=== PATIENT | male | born 1955 ===

== ENCOUNTER 2019-09-24 15:09 | Outpatient (REF) | payer OTHER, SELFPAY ==
[2019-09-24 21:36] LABS: HCT 39.9 % (40.0-50.0); HGB 12.7 g/dL (13.5-17.5); Mean Corp. HGB Concentration 31.8 g/dL (32.0-36.0); Mean Corpuscular Hemoglobin 20.7 pg (27.0-33.0); Mean Platelet Volume 11.3 fL (8.0-11.0); Platelet Count 338 x1000/uL (130-400); RBC 6.14 m/cumm (4.50-6.00); White Blood Cell Count 11.43 k/cumm (4.4-10.8)
[2019-09-24 22:12] LABS: ALT 21 U/L (16-63); AST 22 U/L (15-37); Albumin 3.3 g/dL (3.4-5.0); Alkaline Phosphatase 92 U/L (46-116); Anion Gap 10.4 mmol/L (3-11); BUN 17 mg/dL (7-18); Bilirubin, Total 0.2 mg/dL (0.2-1.0); CO2 26.6 mmol/L (21.0-32.0); CREATININE 1.03 mg/dL (0.70-1.30); Calcium 8.9 mg/dL (8.5-10.1); Calculated LDL 88 mg/dL (<100); Chloride 101 mmol/L (98-107); Cholesterol 157 mg/dL (<200); Glucose 108 mg/dL (74-106); HDL Cholesterol 31 mg/dL (40-60); Potassium 4.2 mmol/L (3.5-5.1); Sodium 138 mmol/L (136-145); TSH 1.09 uIU/mL (0.36-3.74); Total Protein 7.4 g/dL (6.4-8.2); Triglyceride 191 mg/dL (<150)
[2019-09-24 22:35] LABS: ESR 19 mm/hr (1-20)
[2019-09-24 22:43] LABS: FREE T4 1.26 ng/dL (0.76-1.46)
[2019-09-26 10:45] LABS: PSA, Screening 1.6 ng/mL (0.0-4.5)
[2019-09-26 11:32] LABS: Hepatitis C Ab w Rflx HCV PCR Negative (Negative)
== END 2019-09-24 15:29 ==
LOC: NCHCN 15:09
PROVIDERS: PCP Physician Assistant; Visit Provider Physician Assistant
DX: M25.50 Pain in unspecified joint (principal); R53.83 Other fatigue; Z12.5 Encounter for screening for malignant neoplasm of prostate; Z11.59 Encounter for screening for other viral diseases; E78.89 Other lipoprotein metabolism disorders
CPT/HCPCS: 80053; 80061; 84153; 85027; 85652; 86803; 84439; 84443

== ENCOUNTER 2019-09-25 07:53 | Outpatient (CLI) | payer OTHER, SELFPAY ==
--- NOTE | 2019-09-25 | DI.RAD_ITS ---
EXAM: XR CHEST 2V PA LATERAL CLINICAL HISTORY: PLEURITIS, R09.1 TECHNIQUE: 2D digital imaging was performed. COMPARISON: No exams were available for comparison FINDINGS: The heart size is normal. The aorta is mildly tortuous. There is a rounded density directly adjacen t to the right heart border. The findings could represent a mass, pericardial cyst or hernia. There is blunting of both costophrenic angles. There are mild fibrotic changes at the lung bases. No foc al area of consolidation is seen. Degenerative changes are seen in the spine. IMPRESSION: Abnormal density adjacent to the right heart border. Due to lack of comparison exams, a CT is recom mended for further evaluation.. DATA REPOSITORY: RADIATION DOSE DELIVERED:
--- NOTE | 2019-09-25 10:33 | DI.CT_ITS ---
EXAM: CT CHEST W CLINICAL HISTORY: PLEURITIS, R09.1 TECHNIQUE: Imaging Protocol: Axial computed tomography images with coronal and sagittal reformatted images were created and reviewed CONTRAST MATERIAL: Intravenous: Omnipaque 350 Contrast volume:70 cc COMPARISON: CR XR CHEST 2V PA LATERAL from 09/25/2019 FINDINGS: Tracheobronchial tree: Patent where visualized. Mediastinum and Mercy: There is a mass adjacent to the right heart border measuring 7.1 by 8.5 by 8.4 cm. It is mildly lobulated and intermediate density. There is no fat or associated calcifications. There is no visible invasion into the pericardium. No pericardial effusion is present. Pulmonary parenchyma: There are multiple bilateral pulmonary nodules, suspicious of metastases. The largest is at the right lower lobe measuring 9mm. Pleura: Tiny bilateral pleural effusions.. Heart: The heart is not dilated. Mild coronary artery calcifications are seen. Aorta: Thoracic aorta non-dilated. Upper abdomen: Bilateral upper pole renal cysts. Lymph nodes: Mildly enlarged bilateral axillary lymph nodes.. No mediastinal or hilar adenopathy is seen. Bones: Lucency in the posterior left 4th rib. There are few nonspecific lucencies in the thoracic sp ine.. IMPRESSION: Large mass adjacent to the right heart border..Multiple bilateral pulmonary nodules, suspicious of me tastases. RADIATION DOSE DELIVERED: 476.76mGy.cm Total DLP DATA REPOSITORY: All CT scans at this facility are submitted to the National Radiology Data Registry (NRDR) Dose Index Registry (DIR) with the [employer] (ACR). RADIATION OPTIMIZATION: All CT scans at this facility use at least one of these dose optimization te chniques: automated exposure control; mA and/or kV adjustment per patient size (includes targeted exa ms where dose is matched to clinical indication); or iterative reconstruction.
[2019-09-25] MEDS: Omnipaque 350 MG/ML 100 ML BTL IJ (11:04)
== END 2019-09-25 08:13 ==
PROVIDERS: PCP Physician Assistant; Visit Provider Physician Assistant
DX: R09.1 Pleurisy (principal); J98.4 Other disorders of lung; J90 Pleural effusion, not elsewhere classified; R59.0 Localized enlarged lymph nodes; N28.1 Cyst of kidney, acquired; R91.8 Other nonspecific abnormal finding of lung field; R22.2 Localized swelling, mass and lump, trunk
CPT/HCPCS: 71046; 71260; J3490

== ENCOUNTER 2020-03-25 16:25 | Emergency (ER) | payer OTHER, SELFPAY ==
[2020-03-25] VITALS (7 sets, daily range): BP systolic 141–147; BP diastolic 87–91; PULSE 87–117; RESP 16–31; TEMP 36.9; O2SAT 97–98
--- NOTE | 2020-03-25 16:36 | W.ED.GENAD ---
Discharge Plan Disposition Patient Disposition: HOME Condition: Stable Discharge Details Clinical Impression: Surgical wound infection, History of thoracotomy, History of thymoma Primary Care Provider: Andrea Cantu ED Provider: Ruba Be Home Meds and New Rx's Prescriptions: New sulfamethoxazole-trimethoprim [Bactrim DS] 800-160 mg tablet 1 tab PO BID 10 Days Qty: 20 RF: 0 Discharge Instructions Instructions: Wound Infection (ED), Acute Wound Care (ED) Additional Instructions: Apply wet-to-dry dressings twice daily as you have been doing. Take the antibiotic as directed. You will receive a call from the thoracic surgery clinic tomorrow for follow-up in 1 week. Return immediately to the emergency department if you develop any worsening or new concerning symptoms. Discharge Data Discharge Physician: Ruba Be Medical Decision Making 1649 -- 64-year-old male with a history of benign thymoma resection in October 2019 complicated by 2 staph infections and wound VAC removed in December 2019 who presents for increased pain, swelling and drainage from right mid back wound site. Patient appears nontoxic. Vitals within normal limits. His right back wound is mildly tender to palpation with clear yellow discharge but there is no area of fluctuance or purulent drainage. Will obtain screening labs and CT chest to rule out deep space abscess or fluid collection. Will give a dose of Toradol and IV fluids and reassess. 193 --labs reviewed. White blood cell count 11.6. Lactate 1. Troponin negative. CT chest notes IMPRESSION: 1. At the site of the BB marker in the posterior right chest wall there is a cleft likely skin defect with mild stranding. There is no fluid collection or abscess. 2. Mild bilateral pleural effusions with compressive atelectasis . 3. Stable ground-glass nodules in the right lower lung lobe since previous CT chest exam dated 09/25/2019. As per Fleischner criteria, follow-up might be considered every 2 years until 5 years. 4. Mild chronic interstitial lung disease. Patient reassessed and he has no acute complaints and feels good at this time. Case discussed with [facility] thoracic surgery who reviewed images and agree with plan for discharge home. Recommend Bactrim twice daily for 10 days and will follow up with patient tomorrow. Recommend continued wet-to-dry dressings. A saline wet-to-dry dressing was replaced here. Patient given a Bactrim dose here and to go as well as prescription for home. Usual and customary return precautions given prior to discharge. Medical Records Medical records reviewed: Yes I reviewed the patient's medical records. Imaging Data Radiologic Study: Radiologist's impression: CT Chest With Contrast; Diagnostic Exam date and time: 03/25/2020 5:23 PM Age: 64 years old Clinical indication: Chest wall pain; Prior surgery; Surgery date: 1-6 months; Surgery type: Surgury for benign tumor removal in October 2019, staff infection debridments both nov and dec, ; patient HX: Wound marked with bb marker on mid right back. Fever, no cough, no respiratory issues. Patient noticed pain and swelling with discharge at area marked with bb starting yesterday. TECHNIQUE: Imaging protocol: Diagnostic computed tomography of the chest with intravenous contrast. Radiation optimization: All CT scans at this facility use at least one of these dose optimization techniques: automated exposure control; mA and/or kV adjustment per patient size (includes targeted exams where dose is matched to clinical indication); or iterative reconstruction. Contrast material: OMNIPAQUE 350; Contrast volume: 70 ml; Contrast route: INTRAVENOUS (IV); COMPARISON: CT CHEST W 09/25/2019 10:42 AM FINDINGS: Thyroid: Thyroid gland is grossly unremarkable. Lungs: There is a subpleural linear opacity noted in the posterior apical right upper lung lobe (image 13 series 2) and could be atelectasis. Additional scattered new regions of linear subsegmental atelectasis are noted in the right upper and lower lung lobes. There is a stable 9 mm ground-glass nodule in the right lower lung lobe which abuts the anterior major fissure (image 31 series 2). 3-4 mm ground-glass nodule in the right lateral lower lung lobe (image 31 series 2) is stable. This is superimposed with stable mild chronic interstitial lung disease with peripheral and basilar reticulation and traction bronchiectasis in the lower lungs bilaterally. Pleural space: There is mild bilateral pleural effusion with overlying atelectasis. Heart: Heart is borderline in size with trace pericardial effusion. Aorta: Unremarkable. No aortic aneurysm. Lymph nodes: There are shotty lymph nodes in the mediastinum, likely reactive. Kidneys and ureters: There is a 4.4 cm cyst noted in the region of the left upper abdomen could reflect renal cyst. Bones/joints: Visualized osseous structures demonstrate no acute abnormality. Soft tissues: At the site of the BB marker in the posterior chest wall, there is a focal cleft like skin defect noted. There is mild thickening of the skin and subcutaneous tissues. There is no abnormal fluid collection. IMPRESSION: 1. At the site of the BB marker in the posterior right chest wall there is a cleft likely skin defect with mild stranding. There is no fluid collection or abscess. 2. Mild bilateral pleural effusions with compressive atelectasis . 3. Stable ground-glass nodules in the right lower lung lobe since previous CT chest exam dated 09/25/2019. As per Fleischner criteria, follow-up might be considered every 2 years until 5 years. 4. Mild chronic interstitial lung disease. Lab Data Lab results reviewed: Yes I reviewed the patient's lab results. Labs: 03/25/20 17:55 Back - Right Upper Skin Culture - Pending 03/25/20 17:41 Blood Blood Culture - Pending 03/25/20 17:02 Blood Blood Culture - Pending Laboratory Tests Range/Units 03/25/20 03/25/20 03/25/20 17:02 17:02 17:02 WBC (4.4-10.8) 10^3/uL RBC (4.36-5.78) 10^6/uL Hgb (13.5-17.5) g/dL Hct (40.0-50.0) % MCV (80-95) fL MCH (27.0-33.0) pg MCHC (32.0-36.0) % RDW (11.8-14.1) % Plt Count (130-400) 10^3/uL MPV (8.0-11.0) fL Immature Gran % Neutrophils % Lymphocytes % Monocytes % Eosinophils % Basophils % Nucleated RBC % % Absolute Neutrophils (1.2-6.7) 10^3/uL Absolute Lymphocytes (1.2-3.4) 10^3/uL Absolute Monocytes (0.1-0.8) 10^3/uL Absolute Eosinophils (0.0-0.7) 10^3/uL Absolute Basophils (0.0-0.2) 10^3/uL RBC Morphology Hypochromasia Anisocytosis Microcytosis PT (9.3-11.0) sec 10.6 INR (0.9-1.1) 1.1 APTT (21.0-27.5) sec 35.5 H VBG Lactate (0.6-1.4) mmol/L 1.0 Sodium (136-145) mmol/L 136 Potassium (3.5-5.1) mmol/L 3.6 Chloride (98-107) mmol/L 101 Carbon Dioxide (21.0-32.0) mmol/L 27.1 Anion Gap (3-11) mmol/L 7.9 BUN (7-18) mg/dL 17 Creatinine (0.70-1.30) mg/dL 1.27 Estimated GFR/1.73 m2 (mL/min/1.73m2) 56.92 Glucose (74-106) mg/dL 106 Calcium (8.5-10.1) mg/dL 8.6 Magnesium (1.8-2.4) mg/dL 2.0 Total Bilirubin (0.2-1.0) mg/dL 0.3 AST (15-37) U/L 12 L ALT (16-63) U/L 13 L Alkaline Phosphatase (46-116) U/L 101 Troponin I (<0.06) ng/mL < 0.05 Total Protein (6.4-8.2) g/dL 8.0 Albumin (3.4-5.0) g/dL 3.2 L Range/Units 03/25/20 17:02 WBC (4.4-10.8) 10^3/uL 11.62 H RBC (4.36-5.78) 10^6/uL 6.37 H Hgb (13.5-17.5) g/dL 12.6 L Hct (40.0-50.0) % 41.7 MCV (80-95) fL 65.5 L MCH (27.0-33.0) pg 19.8 L MCHC (32.0-36.0) % 30.2 L RDW (11.8-14.1) % 17.2 H Plt Count (130-400) 10^3/uL 305 MPV (8.0-11.0) fL 9.6 Immature Gran % 1.0 Neutrophils % 75.3 Lymphocytes % 13.6 Monocytes % 8.8 Eosinophils % 0.9 Basophils % 0.4 Nucleated RBC % % 0 Absolute Neutrophils (1.2-6.7) 10^3/uL 8.75 H Absolute Lymphocytes (1.2-3.4) 10^3/uL 1.58 Absolute Monocytes (0.1-0.8) 10^3/uL 1.02 H Absolute Eosinophils (0.0-0.7) 10^3/uL 0.10 Absolute Basophils (0.0-0.2) 10^3/uL 0.05 RBC Morphology See below Hypochromasia 1+ Anisocytosis 2+ Microcytosis 3+ PT (9.3-11.0) sec INR (0.9-1.1) APTT (21.0-27.5) sec VBG Lactate (0.6-1.4) mmol/L Sodium (136-145) mmol/L Potassium (3.5-5.1) mmol/L Chloride (98-107) mmol/L Carbon Dioxide (21.0-32.0) mmol/L Anion Gap (3-11) mmol/L BUN (7-18) mg/dL Creatinine (0.70-1.30) mg/dL Estimated GFR/1.73 m2 (mL/min/1.73m2) Glucose (74-106) mg/dL Calcium (8.5-10.1) mg/dL Magnesium (1.8-2.4) mg/dL Total Bilirubin (0.2-1.0) mg/dL AST (15-37) U/L ALT (16-63) U/L Alkaline Phosphatase (46-116) U/L Troponin I (<0.06) ng/mL Total Protein (6.4-8.2) g/dL Albumin (3.4-5.0) g/dL HPI General Mode of arrival: ambulatory. Date/Time Provider Initiated Documentation: 03/25/20 16:33. Limitations to Documentation: no limitations. Information obtained by: patient. HPI Narrative: Patient is a 64-year-old male with a history of right thoracotomy thymoma resection in October 2019 complicated by 2 staph infections and wound VAC which was removed in December presents for increased pain, swelling and drainage around right mid back wound site. Patient's nurse from [facility] called in informing us of his arrival for evaluation including CT chest. Patient states he had a low-grade fever today of 99.5. Patient states he has been eating well and denies any anterior chest pain, shortness of breath, cough, abdominal pain, nausea, vomiting, diarrhea. He denies any recent travel or recent known sick contacts. Patient states he has not been treated with antibiotics for his infection since over 1 month ago. Patient states he has a nurse who changes his wound dressing daily and today he noted increased pain with dressing change. Related Data Home Medications Medication Instructions Recorded Confirmed sulfamethoxazole-trimethoprim 1 tab PO BID 10 Days #20 tab 03/25/20 [Bactrim DS] Previous Rx's Medication Instructions Recorded sulfamethoxazole-trimethoprim 1 tab PO BID 10 Days #20 tab 03/25/20 [Bactrim DS] Allergies Allergy/AdvReac Type Severity Reaction Status Date / Time bee venom protein (honey bee) Allergy Anaphylaxsi Unverified 03/25/20 16:34 s Review of Systems All systems reviewed & are unremarkable except as noted in HPI and below Constitutional Constitutional: Reports as per HPI, Denies chills and Denies fever(s) Eyes Eyes: Denies blurry vision ENT Ears, Nose, Mouth, and Throat: Denies dizziness, Denies sore throat and Denies throat swelling Cardiovascular Cardiovascular: Denies chest pain and Denies dyspnea Respiratory Respiratory: Denies cough and Denies dyspnea Gastrointestinal Gastrointestinal: Denies abdominal pain, Denies diarrhea and Denies vomiting Genitourinary Genitourinary: Denies hematuria and Denies dysuria Musculoskeletal Musculoskeletal: Reports back pain and Denies numbness Integumentary/Breasts Skin/Breast: Denies lesions and Denies rash Neurologic Neurologic: Denies dizziness, Denies localized weakness and Denies numbness Allergic/Immunologic Allergic/Immunologic: Denies throat swelling [facility] Medical History (Updated 03/25/20 @ 18:39 by Ruba Be DO) Benign thymoma Thoracotomy scar of right chest Surgical History (Updated 03/25/20 @ 18:39 by Ruba Be DO) History of thoracotomy History of tonsillectomy Social History Smoking/Tobacco Use Status: Never Smoking risk assessment performed?: Yes Alcohol Intake: current Alcohol Intake frequency: a few times a week Drug use: Occasionally Substance use type: marijuana Do you feel safe at home: Yes Do you feel safe in your relationship?: Yes Exam Const General: cooperative, healthy appearing and no acute distress [facility] Head: normal to inspection Face and sinus: normal facial exam Eyes General: appearance normal, both eyes and all related structures EOM: EOM intact bilaterally Neck Neck: normal visual inspection and No submandibular swelling Lymphatic: no lymphadenopathy noted Chest Chest: normal inspection of the chest and no tenderness Resp Effort & Inspection: normal respiratory effort and able to speak in complete sentences Auscultation: clear to auscultation bilaterally Cardio Rate: regular rate Rhythm: regular rhythm GI Inspection: normal to inspection Palpation: soft, not firm, not rigid and nontender Auscultation: normal bowel sounds Back/Spine/Pelvis Back/spine/pelvis image: 1. 8 cm straight deep open wound right mid back with wet dressings packed within. There is surrounding tenderness and minimal edema but no erythema. There is clear yellowish discharge. No purulent drainage. No fluctuance. Skin General skin exam: no rashes or lesions noted Neuro General: patient alert, patient awake and patient oriented x3 Cognition: normal cognition Speech: speech normal Motor: muscle tone normal throughout Sensory Exam: no sensory deficits noted Extrem General: normal to inspection, full ROM, capillary refill normal, no calf tenderness bilaterally and no edema Psych Appearance: grossly normal Mental Status: mental status grossly normal Speech and Movement: speech and movement normal Affect: normal affect
[2020-03-25 17:13] LABS: Abs Immature Grans 0.12 10^3/uL (0.0-0.06); Absolute Basophil Count 0.05 10^3/uL (0.0-0.2); Absolute Lymphocyte Count 1.58 10^3/uL (1.2-3.4); Absolute Monocyte Count 1.02 10^3/uL (0.1-0.8); Basophils % 0.4; Eosinophils % 0.9; HCT 41.7 % (40.0-50.0); HGB 12.6 g/dL (13.5-17.5); Lymphocytes % 13.6; MCH 19.8 pg (27.0-33.0); MCHC 30.2 % (32.0-36.0); MCV 65.5 fL (80-95); MPV 9.6 fL (8.0-11.0); Monocytes % 8.8; Neutrophils % 75.3; Nucleated RBC 0 %; Platelet Count 305 10^3/uL (130-400); RBC 6.37 10^6/uL (4.36-5.78); RDW 17.2 % (11.8-14.1); RDW-SD 36.5 fL; WBC 11.62 10^3/uL (4.4-10.8)
[2020-03-25 17:14] LABS: Absolute Neutrophil Count 8.75 10^3/uL (1.2-6.7)
--- NOTE | 2020-03-25 17:15 | DI.CT_ITS ---
EXAM: CT CHEST W CLINICAL HISTORY: R mid back pain, swelling, redness TECHNIQUE: Imaging Protocol: Axial computed tomography images with coronal and sagittal reformatted images were created and reviewed CONTRAST MATERIAL: Intravenous: Omnipaque 350 Contrast volume:70 mL. COMPARISON: CR XR CHEST 2V PA LATERAL from 09/25/[address] CHEST W from 09/25/2019 FINDINGS: Tracheobronchial tree: Patent where visualized. Mediastinum and Mercy: No dominant adenopathy or fluid collection. Pulmonary parenchyma: Small to moderate size bilateral pleural effusions are present with subjacent i nfiltrates. There is scarring or atelectasis in the right upper lobe. Bronchiectatic changes are ag ain seen in the lung bases with associated stable chronic interstitial disease. Stable pulmonary nod ules are again seen in the lungs. The right paramediastinal mass has been surgically removed. No re sidual or recurrent mass is seen. Pleura: Please see the above discussion. Heart: The heart is not dilated. No coronary artery calcifications are seen. Mild pleural thickening or tiny pleural effusion. Aorta: Thoracic aorta non-dilated. Mild atherosclerosis. Upper abdomen: Superior aspect of the left renal cyst is again noted. Lymph nodes: Within normal limits. Bones: Degenerative changes are seen in the spine. The lucent lesion seen in the posterior aspect of the left 4th rib appears stable there again seen tiny lucencies in the thoracic spine which appears stable. There is an healed fracture of the posterior aspect of the right 5th rib. Soft tissues: A marker was placed on the back at the area of swelling and discharge. On the CT scan there is a soft tissue defect in this region with soft tissue swelling and skin thickening in this re gion. No focal fluid collection is seen to suggest an abscess. IMPRESSION: 1. At the site of the BB marker on the posterior chest wall there is a skin defect with soft tissue s welling and skin thickening. No focal fluid collection is seen to suggest an abscess. 2. Interval removal of the right pulmonary mass without evidence of recurrent or residual disease. 3. Stable pulmonary nodules. As per Fleischner criteria, follow-up in 12 months is recommended for r e-evaluation. 4. Mild to moderate bilateral pleural effusions with subjacent infiltrates which may represent atelec tasis or pneumonia. RADIATION DOSE DELIVERED: 400.8mGy.cm Total DLP DATA REPOSITORY: All CT scans at this facility are submitted to the National Radiology Data Registry (NRDR) Dose Index Registry (DIR) with the [employer] (ACR). RADIATION OPTIMIZATION: All CT scans at this facility use at least one of these dose optimization te chniques: automated exposure control; mA and/or kV adjustment per patient size (includes targeted exa ms where dose is matched to clinical indication); or iterative reconstruction.
[2020-03-25 17:20] LABS: Diff Comment RBC Morph Reviewed
[2020-03-25 17:24] LABS: INR 1.1 (0.9-1.1); PTT Activated 35.5 sec (21.0-27.5); Prothrombin Time 10.6 sec (9.3-11.0)
[2020-03-25 17:25] LABS: Anisocytosis 2+; Hypochromasia 1+; Microcytosis 3+
[2020-03-25 17:29] LABS: ALT 13 U/L (16-63); AST 12 U/L (15-37); Albumin 3.2 g/dL (3.4-5.0); Alkaline Phosphatase 101 U/L (46-116); Anion Gap 7.9 mmol/L (3-11); BUN 17 mg/dL (7-18); Bilirubin, Total 0.3 mg/dL (0.2-1.0); CO2 27.1 mmol/L (21.0-32.0); CREATININE 1.27 mg/dL (0.70-1.30); Calcium 8.6 mg/dL (8.5-10.1); Chloride 101 mmol/L (98-107); Estimated GFR 56.92 (mL/min/1.73m2); Glucose 106 mg/dL (74-106); Potassium 3.6 mmol/L (3.5-5.1); Sodium 136 mmol/L (136-145)
[2020-03-25 17:30] LABS: Troponin I < 0.05 ng/mL (<0.06)
[2020-03-25] MEDS: Omnipaque 350 MG/ML 100 ML BTL 70 ML IJ (17:52)
[2020-03-25] MEDS: Normal Saline - Diluent 50 ML VIAL IV (17:54)
[2020-03-25] MEDS: Normal Saline 500 ML IV (18:00)
[2020-03-25] MEDS: Ketorolac 30 MG/ML VIAL IVP (18:17)
--- NOTE | 2020-03-25 19:27 | DI.VRAD_ITS ---
PROCEDURE INFORMATION: Exam: CT Chest With Contrast; Diagnostic Exam date and time: 03/25/2020 5:23 PM Age: 64 years old Clinical indication: Chest wall pain; Prior surgery; Surgery date: 1-6 months; Surgery type: Surgury for benign tumor removal in October 2019, staff infection debridments both nov and dec, ; patient HX: Wound marked with bb marker on mid right back. Fever, no cough, no respiratory issues. Patient noticed pain and swelling with discharge at area marked with bb starting yesterday. TECHNIQUE: Imaging protocol: Diagnostic computed tomography of the chest with intravenous contrast. Radiation optimization: All CT scans at this facility use at least one of these dose optimization techniques: automated exposure control; mA and/or kV adjustment per patient size (includes targeted exams where dose is matched to clinical indication); or iterative reconstruction. Contrast material: OMNIPAQUE 350; Contrast volume: 70 ml; Contrast route: INTRAVENOUS (IV); COMPARISON: CT CHEST W 09/25/2019 10:42 AM FINDINGS: Thyroid: Thyroid gland is grossly unremarkable. Lungs: There is a subpleural linear opacity noted in the posterior apical right upper lung lobe (image 13 series 2) and could be atelectasis. Additional scattered new regions of linear subsegmental atelectasis are noted in the right upper and lower lung lobes. There is a stable 9 mm ground-glass nodule in the right lower lung lobe which abuts the anterior major fissure (image 31 series 2). 3-4 mm ground-glass nodule in the right lateral lower lung lobe (image 31 series 2) is stable. This is superimposed with stable mild chronic interstitial lung disease with peripheral and basilar reticulation and traction bronchiectasis in the lower lungs bilaterally. Pleural space: There is mild bilateral pleural effusion with overlying atelectasis. Heart: Heart is borderline in size with trace pericardial effusion. Aorta: Unremarkable. No aortic aneurysm. Lymph nodes: There are shotty lymph nodes in the mediastinum, likely reactive. Kidneys and ureters: There is a 4.4 cm cyst noted in the region of the left upper abdomen could reflect renal cyst. Bones/joints: Visualized osseous structures demonstrate no acute abnormality. Soft tissues: At the site of the BB marker in the posterior chest wall, there is a focal cleft like skin defect noted. There is mild thickening of the skin and subcutaneous tissues. There is no abnormal fluid collection. IMPRESSION: 1. At the site of the BB marker in the posterior right chest wall there is a cleft likely skin defect with mild stranding. There is no fluid collection or abscess. 2. Mild bilateral pleural effusions with compressive atelectasis . 3. Stable ground-glass nodules in the right lower lung lobe since previous CT chest exam dated 09/25/2019. As per Fleischner criteria, follow-up might be considered every 2 years until 5 years. 4. Mild chronic interstitial lung disease. Dictated and Authenticated by: Nikolai Tena MD. Ordering:TROY Yeh MD
[2020-03-25] MEDS: Sulfameth/Trimeth DS, 2 TABS/BTL 1 TAB PO (19:59)
[2020-03-25] MEDS: Sulfameth/Trimeth DS TAB 2 TAB PO (20:00)
== END 2020-03-25 20:00 | disposition home or self-care (01) ==
PROVIDERS: Emergency Provider Physician Assistant; PCP Physician Assistant
DX: T81.42XA Infection following a procedure, deep incisional surgical site, initial encounter (principal); B95.4 Other streptococcus as the cause of diseases classified elsewhere; Y83.8 Other surgical procedures as the cause of abnormal reaction of the patient, or of later complication, without mention of misadventure at the time of the procedure; D15.0 Benign neoplasm of thymus
CPT/HCPCS: 36415; 80053; 87040; 87077; 96361; 96374; 99285; 71260; 83605; 83735; 84484; 85025; 85610; 85730; 87070; J1885; J3490

== ENCOUNTER 2020-11-26 12:32 | Outpatient (REF) | payer OTHER, SELFPAY ==
[2020-11-26 20:35] LABS: HCT 44.2 % (40.0-50.0); HGB 13.2 g/dL (13.5-17.5); MCH 19.2 pg (27.0-33.0); MCHC 29.9 % (32.0-36.0); MCV 64.4 fL (80-95); MPV 10.6 fL (8.0-11.0); Platelet Count 299 10^3/uL (130-400); RBC 6.86 10^6/uL (4.36-5.78); RDW 19.1 % (11.8-14.1); RDW-SD 39.6 fL; WBC 8.69 10^3/uL (4.4-10.8)
[2020-11-26 20:50] LABS: Iron 48 ug/dL (65-175)
[2020-11-26 20:54] LABS: Anion Gap 8.7 mmol/L (3-11); BUN 15 mg/dL (7-18); CO2 26.3 mmol/L (21.0-32.0); CREATININE 0.9 mg/dL (0.70-1.30); Calcium 8.7 mg/dL (8.5-10.1); Chloride 104 mmol/L (98-107); Glucose 92 mg/dL (74-106); Potassium 4.4 mmol/L (3.5-5.1); Sodium 139 mmol/L (136-145)
[2020-11-29 14:13] LABS: PSA, Screening 2.1 ng/mL (0.0-4.5)
== END 2020-11-26 12:33 | disposition home or self-care (01) ==
LOC: NCHCN 12:32
PROVIDERS: PCP Physician Assistant; Visit Provider Nurse Practitioner Family
DX: M25.50 Pain in unspecified joint (principal); Z12.5 Encounter for screening for malignant neoplasm of prostate
CPT/HCPCS: 80048; 84153; 85027; 83540; 83735

== ENCOUNTER → 2021-01-14 09:47 | Outpatient (BNVA) | payer OTHER, SELFPAY | PROVIDERS: PCP Physician Assistant; Referring Provider Physician Assistant; Visit Provider Physical Therapy Assistant | DX: Z12.11 Encounter for screening for malignant neoplasm of colon (principal) ==

== ENCOUNTER 2021-01-21 02:39 | Outpatient (CLI) | payer MEDICARE, SELFPAY ==
[2021-01-21 10:24] LABS: Source Nasal/Nares
[2021-01-21 18:55] LABS: COVID-19 PCR Negative (Negative)
== END 2021-01-21 02:40 | disposition home or self-care (01) ==
LOC: LBO 02:39
PROVIDERS: PCP Physician Assistant; Visit Provider Surgery
DX: Z20.822 Contact with and (suspected) exposure to COVID-19 (principal); Z01.818 Encounter for other preprocedural examination
CPT/HCPCS: 87635

== ENCOUNTER 2021-01-24 09:48 | Day surgery (SDC) | payer MEDICARE, OTHER, SELFPAY ==
--- NOTE | 2021-01-24 06:57 | COLE_ITS ---
Colonoscopy Report Date of procedure: 01/24/21 Pre-op diagnosis general: Colon Cancer Screening Post-op diagnosis procedure note: other (colorectal polyps, mild diverticulosis and grade 1 internal hemorrhoids) Procedure: Colonoscopy with polypectomy Surgeon: Adamaris Gong Anesthesia Type: General LMA/ETT (Torey Vega CRNA/ Jarrod Corrales CRNA) Estimated blood loss (mL): 3 Pathology: other Complications: None Disposition: same day Indications: The patient is here for Colonoscopy pre-op. He has no family history of colon cancer. He has not had any bowel habit changes. -Discussed colonoscopy bowel prep as well as the procedure. Discussed possible complications of the procedure to include bleeding, pain, perforation, missed small lesion/polyp, sore throat, aspiration and adverse reaction to the medications. Questions were answered to patient?s satisfaction. No guarantees were implied or given. Prep: Miralax/Dulcolax Procedure Start Time: 11:44 Procedure End Time: 12:21 Retraction Time: 27 minutes Findings: 11 polyps, 1 polyp was > 10 mm in size mild sigmoid diverticulosis Grade 1 internal hemorrhoids Procedure Description: After informed consent was obtained the patient was taken to the procedure room and placed in a left decubitous position. Monitors were applied and a time out was done. The patients name, date of , procedure, allergies to medications and metal in their body was reviewed. The patient was then sedated. Once sedated and comfortable a rectal exam was done. External exam was normal. Internal exam revealed a normal sphincter tone and no palpable masses. The prostate felt smooth. The scope was then introduced and retro-flexed. Grade 1 internal hemorrhoids were identified on retro-flexion. No polyps or masses were identified on retro- flexion. The scope was then advanced to the cecum without difficulty. The ileocecal vlave and appendiceal orifice were identified. The prep was good. The scope was then slowly retracted over 27 minutes back into the rectum. Polyps were removed with hot snare in the cecum x1, Ascending colon x1, transverse colon x2 and sigmoid colon x1; and with cold forceps in the cecum, ascending colon x2, transverse colon x3 and sigmoid colon. There was mild sigmoid diverticulosis noted. The scope was removed and the patient was woken up and taken back to Same day surgery in stable condition. The patient tolerated the procedure well and there were no immediate complications. Follow up: The patient should follow up in 3-5 years unless they develop changes in bowel habits or other new gastrointestinal complaints.
--- NOTE | 2021-01-24 06:57 | W.PM.DSUDISC ---
Discharge Plan Disposition Patient Disposition: HOME Condition: Good Discharge Details Reason For Visit: COlonoscopy Attending Provider: Adamaris Gong Primary Care Provider: Andrea Cantu Home Meds and New Rx's Prescriptions: Continued epinephrine [EpiPen 2-Julio Cesar] 0.3 mg/0.3 mL auto-injector 0.3 mg IM ONCE RF: 0 Discontinued polyethylene glycol 3350 17 gram/dose powder 238 g PO ONCE Qty: 238 RF: 0 bisacodyl [Dulcolax (bisacodyl)] 5 mg tablet,delayed release (DR/EC) 5 mg PO ONCE Qty: 4 RF: 0 Discharge Instructions Instructions: Diverticulosis (DC), Colorectal Polyps (DC), Hemorrhoids (DC) Additional Instructions: Findings: Polyps x 11 mild diverticulosis small internal hemorrhoids Follow up: 3-5 years Please call if you develop: fevers >101.5 Nausea or Vomiting Abdominal pain that is not transient Rectal bleeding that is more then a tbsp A hard abdomen and inability to pass gas DAY SURGERY UNIT POST ENDOSCOPY INSTRUCTIONS Instructions for everyone who is given Anesthesia: For your safety, please do the following for the next 24 Hours: a. Do not drive or operate dangerous equipment b. Do not drink alcohol beverages or use any recreational drugs for the first 24 hours or while taking pain medications. The medications in your body may have a reaction that can be dangerous. c. Do not make any important decisions or sign any important papers 1. Generally there are no restrictions on your activity after a day or so has gone by, but you may feel a bit fatigued for a few days. 2. After you arrive home you may have a light meal and return to a normal diet as you can tolerate it without feeling sick to your stomach. 3. After surgery, you may feel pain or discomfort. This should be only transient, but if it persists please contact your doctor. 4. If there are any questions regarding the findings of your procedure, please feel free to contact your doctor. 6. If you are unable to contact your doctor with a problem, contact the hospital at [phone]. 7. Continue all your regular medications unless directed otherwise. I understand the above instructions and have no questions. Signature of Patient or Responsible Adult Escort Date/Time Name of Responsible Adult Escort Signature of Nurse Date/Time Activity:: Activity as Tolerated Diet:: high fiber diet Discharge Orders Discharge Orders: Discharge Order (Routine); Ordered 01/24/21 Ordered By: Adamaris Gong
[2021-01-24 09:50] VITALS: BP 148/93; PULSE 88; RESP 16; TEMP 36.1; O2SAT 99
[2021-01-24] MEDS: Lactated Ringers 1,000 ML 80 ML IV (10:25)
--- NOTE | 2021-01-24 10:45 | ANES.PREOP_ITS ---
General Info Date of Service Date Performed: 01/24/21 Height: 5 ft 11 in Weight: 78.131 kg Body Mass Index (BMI): 24.0 Surgical Procedure: Operation Date: 01/24/21 12:35 Proposed Procedures Side Surgeon p Colonoscopy Adamaris Gong MD Meds Allergies and Home Medications Allergies Allergy/AdvReac Type Severity Reaction Status Date / Time bee venom protein (honey bee) Allergy Anaphylaxsi Unverified 01/24/21 10:05 s Home Medication Medication Instructions Recorded epinephrine 0.3 mg/0.3 mL 0.3 mg IM ONCE 08/24/20 injection, auto-injector bisacodyl 5 mg tablet,delayed 5 mg PO ONCE #4 tab 01/14/21 release polyethylene glycol 3350 17 238 g PO ONCE #238 g 01/14/21 gram/dose oral powder Current Visit Medications: Current Medications Generic Name Dose Route Start Last Admin Trade Name Freq PRN Reason Stop Dose Admin Hyoscyamine Sulfate 0.125 mg 01/24/21 06:58 Hyoscyamine 0.125 Mg Sl/Oral/Chew SL DIRECTED PRN Ringer's Solution 1,000 mls @ 80 mls/hr 01/24/21 06:00 IV 02/20/21 23:59 [facility] IV Miscellaneous Supplies 1 each 01/24/21 06:00 Iv Access IV 02/20/21 23:59 DIRECTED MIGUEL Ondansetron HCl 4 mg 01/24/21 06:58 Ondansetron 4 Mg/2 Ml Vial IVP Q4H PRN PRN Nausea / Vomiting Sodium Chloride 0 ml 01/24/21 06:00 Normal Saline Flush 10 Ml Syr IV 02/20/21 23:59 PRN PRN Sodium Chloride 0 ml 01/24/21 06:00 Normal Saline 10 Ml Vial IJ 02/20/21 23:59 DIRECTED PRN Sterile Water 0 ml 01/24/21 06:00 Water,Injection,Sterile 10 Ml Vial IJ 02/20/21 23:59 DIRECTED PRN PFSH Active Problems Active Problems: Problem Status Onset Code Screening for colon cancer Z12.11 Arthralgia M25.50 Fatigue R53.83 Medical History Medical History Benign thymoma Hx of staphylococcal infection Thoracotomy scar of right chest Surgical History Surgical History History of thoracotomy History of tonsillectomy Tobacco Smoking/Tobacco Use Status: Never Alcohol Alcohol Intake: current Alcohol intake frequency: a few times a week Substance Use Substance use: Occasionally Substance use type: marijuana Vital Signs and Lab Results Vital Signs Most Recent Vital Signs in EMR: Most Recent Vital Signs Temp Pulse Resp BP Pulse Ox 36.1 C L 88 16 148/93 H 99 01/24/21 09:50 01/24/21 09:50 01/24/21 09:50 01/24/21 09:50 01/24/21 09:50 Lab Results Blood Type / Crossmatch: No Data to Display Complete Blood Count: No Data to Display Complete Metabolic Panel: No Data to Display Liver Function Panel: No Data to Display Coagulation Panel: No Data to Display Cardiac Panel: No Data to Display Arterial Blood Gas: No Data to Display Venous Blood Gas: No Data to Display Pancreas Panel: No Data to Display Thyroid Panel: No Data to Display Infectious Disease: Coronavirus (COVID-19)(PCR) Negative (Negative) 01/21/21 10:00 01/21/21 Coronavirus 2019 Source Nasal/Nares 01/21/21 10:00 01/21/21 Blood Cultures: No Data to Display Toxicology Panel: No Data to Display Anesthesia Assessment and Plan Anesthesia History Personal History: No History of Anesthesia Complications Family History: No Family History of Anesthesia Complications Exercise Tolerance Exercise Tolerance: Metabolic Equivalents>4 Pertinent Negatives Pertinent Negatives: No Symptoms of GERD, No Major Cardiovascular Symptoms or Complaints and No Major Pulmonary Symptoms or Complaints Cardiac & Pulmonary Exam Cardiac Exam: Normal S1/S2 Heart Sounds Pulmonary Exam: Clear Bilateral Breath Sounds Airway Exam Known Difficult Airway: No Mallampati Class: 2 Mouth Opening: Normal (> 3cm) Thyromental Distance: Greater than 3 cm Neck Range of Motion: Full ROM Neck Circumference: Normal Teeth Condition: Normal Dentition ASA Classification ASA Score: ASA 2 Emergency Case?: No NPO Status NPO Status: NPO Clears >2 hours, Solids >8 hours Anesthesia Plan Resuscitation Status: Full Code Anesthesia Technique: General Anesthesia Airway Planned: Natural Airway Monitors Used: Standard Monitors Preoperative Comments:: 65 yo male for colo. Sig PMHx: s/p right VATS/thoracotomy with resection of mediastinal mass and wedge x 5, Previous Anes: grade 4 mac 4, grade 2 with video a pressure.
[2021-01-24 11:24] VITALS: BMI 24.0
--- NOTE | 2021-01-24 11:48 | BOWEL_PTH ---
PATIENT: Tree Lantigua LOC: [facility] U#:[id number] AGE/SX: 65/M ROOM: RE01/24/[address]: Adamaris Gong MD : 1955 BED: DIS: 01/24/2021 SPEC #: [id number] RECD: 01/24/21 13:55 STATUS: FIORELLA REQ #: [id number] RA: 01/24/21 11:[address]: Adamaris Gong DEPT: Surgical Specimen RECD BY: Hailey Romero ENTERED: 01/24/21 13:58 SP TYPE: Bowel OTHR DR: Andrea Cantu Tissues: 1 - BIOPSY BOWEL 2 - BIOPSY BOWEL 3 - BIOPSY BOWEL 4 - BIOPSY BOWEL Procedures: GROSS AND MICRO LEVEL 4 Comments: [id number]
[2021-01-24 12:25] VITALS: BP 121/89; PULSE 93; RESP 18; TEMP 36.5; O2SAT 98
--- NOTE | 2021-01-24 12:43 | W.ANESPOSTOP ---
Postoperative Evaluation Date, Time and Location Date Performed: 01/24/21 Time Performed: 12:43 Patient Location: Day Surgery Unit Vital Signs Most Recent Imported Vital Signs: Most Recent Vital Signs Temp Pulse Resp BP Pulse Ox 36.5 C 93 H 18 121/89 98 01/24/21 12:25 01/24/21 12:25 01/24/21 12:25 01/24/21 12:25 01/24/21 12:25 Pain Score Most Recent Pain Score: Most Recent Pain Score Pain Level 0 01/24/21 12:25 Assessment Mental Status: Awake (Alert & Oriented to Patient Baseline) Airway and Respiratory Function: Patent airway with normal (patient baseline) respiratory exam Cardiovascular Function: Hemodynamically Stable Hydration Status: Adequately Hydrated Nausea & Vomiting: No Nausea or Vomiting Pain: Pt. Denies Any Pain Peripheral Nerve Block: Patient did not receive a nerve block
[2021-01-24 12:55] VITALS: BP 126/78; PULSE 78; RESP 18; TEMP 36.4; O2SAT 98
== END 2021-01-24 13:41 | disposition home or self-care (01) ==
LOC: SUR 09:49
PROVIDERS: PCP Physician Assistant; Visit Provider Surgery
PROC: 0DJD8ZZ Inspection of Lower Intestinal Tract, Via Natural or Artificial Opening Endoscopic (ICD-10-PCS; CPT 45378; principal; 2021-01-24 12:30)
DX: Z12.11 Encounter for screening for malignant neoplasm of colon (principal); D12.0 Benign neoplasm of cecum; D12.2 Benign neoplasm of ascending colon; D12.3 Benign neoplasm of transverse colon; D12.5 Benign neoplasm of sigmoid colon; K57.30 Diverticulosis of large intestine without perforation or abscess without bleeding; K64.0 First degree hemorrhoids
CPT/HCPCS: 45385; 45380; 88305

== ENCOUNTER 2021-02-08 10:41 | Outpatient (REF) | payer MEDICARE, SELFPAY ==
[2021-02-08 15:12] LABS: ALT 21 U/L (16-63); AST 17 U/L (15-37); Albumin 3.3 g/dL (3.4-5.0); Alkaline Phosphatase 110 U/L (46-116); Anion Gap 6.7 mmol/L (3-11); BUN 15 mg/dL (7-18); Bilirubin, Total 0.3 mg/dL (0.2-1.0); CO2 29.3 mmol/L (21.0-32.0); CREATININE 0.9 mg/dL (0.70-1.30); Calculated LDL 138 mg/dL (<100); Chloride 105 mmol/L (98-107); Cholesterol 206 mg/dL (<200); Glucose 91 mg/dL (74-106); HDL Cholesterol 39 mg/dL (40-60); Potassium 4.5 mmol/L (3.5-5.1); Sodium 141 mmol/L (136-145); Total Protein 7.5 g/dL (6.4-8.2); Triglyceride 146 mg/dL (<150)
[2021-02-08 15:16] LABS: HCT 47.7 % (40.0-50.0); HGB 14.1 g/dL (13.5-17.5); MCH 19.9 pg (27.0-33.0); MCHC 29.6 % (32.0-36.0); MCV 67.2 fL (80-95); MPV 10.9 fL (8.0-11.0); Platelet Count 254 10^3/uL (130-400); RDW 19.1 % (11.8-14.1); RDW-SD 40.6 fL; WBC 8.72 10^3/uL (4.4-10.8)
== END 2021-02-08 10:42 | disposition home or self-care (01) ==
LOC: NCHCN 10:41
PROVIDERS: PCP Physician Assistant; Visit Provider Family Medicine
DX: R53.83 Other fatigue (principal); D15.0 Benign neoplasm of thymus; M25.50 Pain in unspecified joint
CPT/HCPCS: 80053; 80061; 85027

== ENCOUNTER 2021-08-11 18:58 | Outpatient (REF) | payer MEDICARE, SELFPAY ==
[2021-08-11 14:26] LABS: HCT 48.5 % (40.0-50.0); HGB 14.5 g/dL (13.5-17.5); MCH 20.5 pg (27.0-33.0); MCHC 29.9 % (32.0-36.0); MCV 68 fL (80-95); Platelet Count 257 10^3/uL (130-400); RBC 7.09 10^6/uL (4.36-5.78); RDW 18.4 % (11.8-14.1); RDW-SD 38.9 fL; WBC 9.62 10^3/uL (4.4-10.8)
[2021-08-11 14:28] LABS: Anion Gap 8.3 mmol/L (3-11); BUN 15 mg/dL (7-18); CO2 28.7 mmol/L (21.0-32.0); CREATININE 0.9 mg/dL (0.70-1.30); Calcium 8.9 mg/dL (8.5-10.1); Chloride 104 mmol/L (98-107); Glucose 88 mg/dL (74-106); Potassium 4.3 mmol/L (3.5-5.1); Sodium 141 mmol/L (136-145)
[2021-08-11 14:32] LABS: Iron 75 ug/dL (65-175); Total Iron Binding Capacity 304 ug/dL (250-450); Transferrin Sat 25 % (20-55)
== END 2021-08-11 18:59 | disposition home or self-care (01) ==
LOC: NCHCN 18:58
PROVIDERS: PCP Physician Assistant; Visit Provider Nurse Practitioner Family
DX: D50.9 Iron deficiency anemia, unspecified (principal); R03.0 Elevated blood-pressure reading, without diagnosis of hypertension
CPT/HCPCS: 80048; 85027; 83540; 83550

== ENCOUNTER 2023-01-17 15:44 | Outpatient (REF) | payer MEDICARE, SELFPAY ==
[2023-01-17 15:54] LABS: HCT 44.1 % (40.0-50.0); HGB 13.1 g/dL (13.5-17.5); MCH 20.3 pg (27.0-33.0); MCHC 29.7 % (32.0-36.0); MCV 69 fL (80-95); MPV 10.5 fL (8.0-11.0); Platelet Count 283 10^3/uL (130-400); RBC 6.44 10^6/uL (4.36-5.78); RDW 19.1 % (11.8-14.1); RDW-SD 39.8 fL; WBC 7.34 10^3/uL (4.4-10.8)
[2023-01-17 16:09] LABS: Iron 55 ug/dL (65-175); Total Iron Binding Capacity 328 ug/dL (250-450); Transferrin Sat 17 % (20-55)
[2023-01-17 16:22] LABS: ALT 17 U/L (16-63); AST 23 U/L (15-37); Albumin 3.4 g/dL (3.4-5.0); Alkaline Phosphatase 96 U/L (46-116); Anion Gap 9.6 mmol/L (3-11); BUN 19 mg/dL (7-18); Bilirubin, Total 0.3 mg/dL (0.2-1.0); CO2 26.4 mmol/L (21.0-32.0); CREATININE 0.9 mg/dL (0.70-1.30); Calcium 9.2 mg/dL (8.5-10.1); Calculated LDL 104 mg/dL (<100); Chloride 102 mmol/L (98-107); Cholesterol 178 mg/dL (<200); Estimated GFR 93.03 (mL/min/1.73m2); Ferritin 37 ng/mL (26-388); Glucose 93 mg/dL (74-106); HDL Cholesterol 43 mg/dL (40-60); Potassium 3.9 mmol/L (3.5-5.1); Sodium 138 mmol/L (136-145); Total Protein 8.3 g/dL (6.4-8.2); Triglyceride 155 mg/dL (<150)
[2023-01-17 22:58] LABS: PSA, Screening 2.8 ng/mL (<=4.5)
== END 2023-01-17 15:45 | disposition home or self-care (01) ==
LOC: NCHCN 15:44
PROVIDERS: PCP Physician Assistant; Visit Provider Nurse Practitioner Family
DX: D50.9 Iron deficiency anemia, unspecified (principal); Z12.5 Encounter for screening for malignant neoplasm of prostate; D15.0 Benign neoplasm of thymus; E78.5 Hyperlipidemia, unspecified
CPT/HCPCS: 80053; 80061; 84153; 85027; 82728; 83540; 83550; 83874

== ENCOUNTER 2023-03-15 10:53 | Outpatient (REF) | payer MEDICARE, SELFPAY ==
--- NOTE | 2023-03-15 07:45 | SKI_PTH ---
PATIENT: Tree Lantigua LOC: [facility] U#:[id number] AGE/SX: 67/M ROOM: RE03/15/[address]: Carlos Adamson MD : 1955 BED: DIS: 03/15/2023 SPEC #: [id number] RECD: 03/15/23 13:50 STATUS: FIORELLA REQ #: [id number] RA: 03/15/23 07:[address]: Carlos Adamson DEPT: Surgical Specimen RECD BY: Marylin Mohan ENTERED: 03/15/23 13:51 SP TYPE: FARHAD DOWNEY DR: Christiana Moore Tissues: 1 - SKIN BIOPSY(SHAVE/PUNCH) Procedures: SKIN LEVEL 4 SPECIAL STAIN 1 Comments: [id number]
--- OUTSIDE RECORDS SUMMARY | 2023-03-15 10:56 | XMS_ITS | Continuity of Care Document ---
Author Name Unknown Organization [facility] Ambulatory Clinics Address [address] [place] [address] Care Team Providers Care Wildlife Rehabilitator Name Role Phone ELIA OLVERA Primary Care Physician [phone] Encounter [facility] NBR [id number] Date(s): 01/25/23 - 01/25/23 [facility] Ambulatory [facility] [address] [place] [address]- [place] Patient Care team information Care Team Personnel Name: ELIA OLVERA Position: No Access Member Role: Primary Care Physician Address: Address: [address] [address]
== END 2023-03-15 10:54 | disposition home or self-care (01) ==
LOC: NCHCN 10:53
PROVIDERS: PCP Nurse Practitioner Family; Visit Provider Otolaryngology
DX: L72.8 Other follicular cysts of the skin and subcutaneous tissue (principal)
CPT/HCPCS: 88305; 88312

== ENCOUNTER → 2023-11-12 02:12 | Outpatient (CLI) | payer MEDICARE, SELFPAY ==
--- NOTE | 2023-11-12 | DI.RAD_ITS ---
Exam(s) XR HIP RT COMPLETE AP PELVIS EXAM: XR HIP RT COMPLETE AP PELVIS CLINICAL HISTORY: Pain in rt hip, M25.551. TECHNIQUE: 2D digital imaging was performed. Two views COMPARISON: No exams were available for comparison FINDINGS: BONES: No acute fracture is present. No bony destructive lesion is seen. JOINTS: No dislocation present. Moderate to severe narrowing of the right hip joint space. Subchondr al cyst present in the superior acetabula. Periarticular spurring. Mild narrowing of the left hip j oint space and mild periarticular spurring. mild degenerative changes of SI joints pubic symphysis. Severe degenerative changes noted at L4-5. SOFT TISSUE: Normal. IMPRESSION: Advanced degenerative changes of the right hip. DATA REPOSITORY: RADIATION DOSE DELIVERED:
--- OUTSIDE RECORDS SUMMARY | 2023-11-12 02:14 | XMS_ITS | Encounter Summary ---
Author Organization [facility] [place] [address] Care Team Providers Care Mold Yard Worker Name Role Phone Christiana Moore APRN Primary Care Provider [phone] Encounter Details Date Type Department Care Team (Late st Contact Info) Description 03/21/2023 Telephone [place] [id number] Clarissa Murphy, RN Social History Tobacco Use Types Packs/Day Years Used Date Smoking Tobacco: Never Smokeless Tobacco: Never Alcohol Use Standard Drinks/Week Comments Yes 2 (1 standard drink = 0.6 oz pur e alcohol) Sex and Gender Information Value Date Recorded Sex Assigned at Not on file Gender Identity Not on file Sexual Orientation Not on file documented as of this encounter Miscellaneous Notes * Telephone Encounter - Clarissa Murphy RN - 03/21/2023 3:31 PM EST Patient with h/o distant R Thoracotomy with Mediastinal Mass Resection of a Thymoma in 2019, post-op course complicated by an SSI requiring I&D and NPWT for assisted healing and closure. Now witha new abscess to the superior aspect of his prior incision with GPC growing on needle aspiration from 03/14, S/P I&D at bedside on 03/17/2023, and further surgical I&D on 03/18/[address] Carlin. VNA set up for BID wound care (WTD dressings), to assist. Cultures growing pansensitive S.aureus. Discharged on 03/20 with 14 day course of Bactrim DS; will need 2 week follow-up with Dr. Carlin. Phone call to patient. He is doing well. Denies pain, fever and any s/s of infection. He has VNA and his helping with dressing changes which they are well versed with in his past. They do plan to do holiday travel and Dr. Carlin agrees that we se him on 04/03 and then as needed. Regular CT annually. He is aware to call with any issues. documented in this encounter Plan of Treatment Not on file documented as of this encounter Visit Diagnoses Not on filedocumented in this encounter Care Teams Mold Yard Worker Relationship Specialty Start Date End Date Christiana Moore APRN [address] [place] [address] PCP - General Family Medicine 09/26/19 documented as of this encounter
--- OUTSIDE RECORDS SUMMARY | 2023-11-12 02:14 | XMS_ITS ---
Author Organization [facility] [place] [address] Care Team Providers Care Service Department Manager Name Role Phone Christiana Moore APRN Primary Care Provider [phone] Active Problems Patient Care Coordination No te Formatting of this note migh t be different from the original. [facility] PHONE: [phone] FAX: [phone] Problem Noted Date Diagnosed Date Complicated wound infection 03/17/2023 Open wound of right chest wall with complication 12/08/2019 Chest wall abscess 11/09/2019 Type A malignant thymoma 10/07/2019 Current Oncology Plans No current plan information found. Past Plans No past plan information found. Radiation Treatments * No radiation treatments are documented for this patient in [facility]. Treatments may have been administered in another system. Lifetime Dose Tracking * Chemical Lifetime Dose Automatic Entry Manual Entr y DLP (Dose Length Product) 372 mGy-cm 372 mGy-cm 0 mGy-cm CTDI (CT Dose Index) Min 10.4 mGy 10.4 mGy 0 m Gy CTDI (CT Dose Index) Max 10.4 mGy 10.4 mGy 0 m Gy
--- OUTSIDE RECORDS SUMMARY | 2023-11-12 02:14 | XMS_ITS | Encounter Summary ---
Author Organization [facility]ly [facility] [place] [address] Care Team Providers Care Disciplinary Hearing Officer Name Role Phone Christiana Moore APRN Primary Care Provider [phone] Encounter Details Date Type Department Care Team (Latest Contact Info) Description 04/03/2023 Travel Social History Tobacco Use Types Packs/Day Years Used Date Smoking Tobacco: Never Smokeless Tobacco: Never Alcohol Use Standard Drinks/Week Comments Yes 2 (1 standard drink = 0.6 oz pur e alcohol) Sex and Gender Information Value Date Recorded Sex Assigned at Not on file Gender Identity Not on file Sexual Orientation Not on file documented as of this encounter Plan of Treatment Not on file documented as of this encounter Visit Diagnoses Not on filedocumented in this encounter Care Teams Disciplinary Hearing Officer Relationship Specialty Start Date End Date Christiana Moore APRN [address] [place] [address] PCP - General Family Medicine 09/26/19 documented as of this encounter
--- OUTSIDE RECORDS SUMMARY | 2023-11-12 02:14 | XMS_ITS | Clinical Summary ---
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 Reports doing better, 7 weeks out energy improving and was able to complete travel to [place] without issues. Here to assess abdominal wound if packing still required Problems Includes: Problems addressed during this encounter and other active Problems All Visits Onset Date Resolved Date Provider Condition S tatus Chronic Cutaneous Ulcer Non-pressure Back 06/28/2023 Garrison Kwan MD Active Last Documented On 4 9:57AM ; [facility] Colonic Diverticulosis 06/28/2023 Garrison Kwan MD Active Last Documented On 4 9:53AM ; [facility] Personal History of Colon Polyps 06/28/2023 Pradeep Kwan MD Active Last Documented On 4 9:59AM ; [facility] Staphylococcal Infection Skin Disorder 06/28/2023 Garrison Kwan MD Active Last Documented On 4 9:57AM ; [facility] Plan of Treatment 68-year-old male status post open low anterior resection for a benign sigmoid stricture complicated by wound infection presenting for postop polyp follow-up. He has recovered well from surgery and wound has healed. He will continue packing of the back wound which was already present when I met him, This also appears to be healing well with local wound care. Follow-up with me in a month. - Last Documented On 06/29/2023 10:46AM ; [facility] Education and Decision Aids were provided during visit for: Education and counseling Adv ise patient to return to office at any time prior to next visit with new problem or any clinical change Last Documented On 4 10:45AM ; [facility] Assessments Includes: Assessments from this encounter No Assessments Recorded Instructions Includes: Instructions from this encounter Education and Decision Aids were provided during visit for: Education and counseling Adv ise patient to return to office at any time prior to next visit with new problem or any clinical change Last Documented On 4 10:45AM ; [facility] Medical Equipment - Implanted Devices Includes: Current Devices No Medical Equipment Recorded Medications Includes: Medications discussed during this encounter and other current Medications Past Medications on file Amoxicillin-Pot Clavulanate 875-125 MG Oral Tablet 05/25/2023 - 06/04/2023 Provider: Ramakrishna mancilla MD Diagnosis: twice a day Last Documented On 4 1:37PM By Celena Sandoval RN ; [facility] Medications Administered Includes: Administered Medications from this encounter No Administered Medications Recorded Results Includes: Results discussed during this encounter No Results Recorded For Specified Dates Social History Description Last Updated Amount of sleep was eight hours/day 06/08 Last Documented On 4 9:59AM ; [facility] Caffeine use 06/28/2023 Last Documented On 4 9:59AM ; [facility] Currently 06/28/2023 Last Documented On 4 9:59AM ; [facility] Daily coffee consumption was one cups pe r day 06/28/2023 Last Documented On 4 9:59AM ; [facility] DME in home: grab bars in shower/tub Last Documented On 4 9:59AM ; [facility] Housing with smoke detectors 06/28/2023 Last Documented On 4 9:59AM ; [facility] Lives in private residence 06/28/2023 Last Documented On 4 9:59AM ; [facility] Lives with spouse 06/28/2023 Last Documented On 4 9:59AM ; [facility] Never a smoker 06/28/2023 Last Documented On 4 9:59AM ; [facility] Not using alcohol 06/28/2023 Last Documented On 4 9:59AM ; [facility] Not using drugs 06/28/2023 Last Documented On 4 9:59AM ; [facility] Retired from work 06/28/2023 Last Documented On 4 9:59AM ; [facility] Using a seatbelt 06/28/2023 Last Documented On 4 9:59AM ; [facility] Using sunscreen 06/28/2023 Last Documented On 4 9:59AM ; [facility] Smoking Status Unknown Procedures and Surgical History Surgical History Last Updated History of partial colectomy Dr. Bennett 05/09/23 ~Diagnostic laparoscopy converted to open low anterior resection, umbilical hernia repair 05/25/2023 Last Documented On 4 9:59AM ; [facility] Medical History Includes: Medical History addressed during this encounter Description Last Updated History of diverticulitis of colon 06/27 Last Documented On 4 9:59AM ; [facility] Family History Includes: Family History addressed during this encounter Description Last Updated Fraternal history of brother is alive x2 06/28/2023 Last Documented On 4 9:59AM ; [facility] 2 children 06/28/2023 Last Documented On 4 9:59AM ; [facility] Children 06/28/2023 Last Documented On 4 9:59AM ; [facility] Paternal history of father was 95 06/28/2023 Last Documented On 4 9:59AM ; [facility] Maternal history of mother is alive 05/10 Last Documented On 4 9:59AM ; [facility] Review of Systems Includes: Review of Systems from this encounter All other systems are negative except as stated above. Mental Status Includes: Mental Status from this encounter Description Oriented to time, place, and person Functional Status Includes: Functional Status from this encounter No Functional Status Recorded Physical Exam Includes: Physical Exam from this encounter Allergies Includes: Active Allergies No Known Allergies Encounters Encounter Provider Location Date Check-In Time Check-Out Time Diagnosis Post-Op Visit Ramakrishna Bennett MD [facility] Surgery [place] jose 06/29/19 24 9:55AM 10:12AM Insurance Includes: Active Insurance Policies Plan Name Member ID Group # Subscriber Relationship Effect lanre Dates 1 - AARP Medicare Advantage HMO/POS/PPO - [facility] [id number] Tree Lantigua Self 06/27/2023 - Unknown Clinical Notes Includes: Clinical Notes from this encounter * Progress note Date Encounter Last Documented by 06/29/2023 Post-Op Visit Last documented on 06/29/2023; 10:46 AM, Ramakrishna Bennett MD; [facility] Chief Complaint The Chief Complaint is: Post-Op Visit: Diagnostic Laparotomy converted to Open Low Anterior resection + umbilical hernia repair + sigmoidoscopy 05/09/2023. Reports doing better, 7 weeks out energy improving and was able to complete travel to [place] without issues. Here to assess abdominal wound if packing still required. History of Present Illness Tree Lantigua is a 68 year old male. - Allergy list reviewed - Medication list reviewed 68-year-old male status post open low anterior resection Complicated by wound infection requiring prolonged wound care presenting for postop follow-up. Incision has healed up at this point. 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 Active Problems & Conditions - L98.429 - Chronic Cutaneous Ulcer Non-pressure Back - K57.30 - Colonic Diverticulosis - Z86.010 - Personal History of Colon Polyps - L98.9 - Staphylococcal Infection Skin Disorder Current Medication - None Allergies - No Known Allergies Past Medical/Surgical History Diagnoses: Diverticulitis of colon Surgical: - Partial colectomy Dr. Bennett 05/09/23 Diagnostic laparoscopy converted to open low anterior resection, umbilical hernia repair Social History Caffeine use: Daily coffee consumption was one cups per day. Tobacco use: Never a smoker. Alcohol: Not using alcohol. Drug Use: Not using drugs. Habits: Amount of sleep was eight hours/day. Using sunscreen. Using a seatbelt. Housing And Economic Circumstances: Lives with spouse. Lives in private residence and housing has no smoke detectors housing with smoke detectors. DME in home: grab bars in shower/tub. Work: Retired from work. Marital: Currently . Family History 2 children Paternal: Father was 95 Maternal: Mother is alive Fraternal: Brother is alive x2 Review Of Systems All other systems are negative except as stated above. Physical Findings - Vitals taken 06/29/2023 09:59 am Post-Op General Appearance: - Well developed. - In no acute distress. Eyes: General/bilateral: Sclera: - Showed no icterus. Lungs: - Respiration rhythm and depth was normal. Cardiovascular: Jugular Venous Distention: - JVD not increased. Heart Rate And Rhythm: - Normal. Arterial Pulses: - Pulse amplitude right radial artery was normal 2+. Abdomen: Visual Inspection: - Abdomen was not distended. Palpation: - Abdominal non-tender Disorder2 small sinus tract without evidence of underlying fluid collection, optic changes. Musculoskeletal System: General/bilateral: - Normal movement of all extremities. Lower Leg: General/bilateral: - No localized swelling of lower leg. Neurological: - Oriented to time, place, and person. Psychiatric: - Mood was appropriate to the affect. Skin: - Mucous membranes were normal. - No skin lesions. Plan 68-year-old male status post open low anterior resection for a benign sigmoid stricture complicated by wound infection presenting for postop polyp follow-up. He has recovered well from surgery and wound has healed. He will continue packing of the back wound which was already present when I met him, This also appears to be healing well with local wound care. Follow-up with me in a month. Care Team - Ramakrishna Bennett MD - Surgery (General) - Garrison Kwan MD - Internal Medicine Counseling/Education - Education and counseling Advise patient to return to office at any time prior to next visit with new problem or any clinical change Bottom of Document The 21st Century Cures Act makes medical notes like these available to patients in the interest of transparency. However, be advised this is a medical document. It is intended as peer to peer communication. It is written in medical language and may contain abbreviations or verbiage that are unfamiliar. It may appear blunt or direct. Medical documents are intended to carry relevant information, facts as evident, and the clinical opinion of the practitioner. We encourage you to reach out to your medical team for clarity related to medical records.
--- OUTSIDE RECORDS SUMMARY | 2023-11-12 02:14 | XMS_ITS | Clinical Summary ---
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 03/20/2023 Active ibuprofen (Advil) 600 mg tablet Take 1 tablet by mouth every 6 hours as needed for Pain. 03/20/2023 Active Additional Information Patient not taking.Reported on 04/03/2023 senna (Senokot) 8.6 mg tablet Take 2 tablets by mouth every evening. 03/20/2023 Active Additional Information Patient not taking.Reported on 04/03/2023 Active Problems Patient Care Coordination No te Formatting of this note migh t be different from the original. [facility]. 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 Social History Tobacco Use Types Packs/Day Years Used Date Smoking Tobacco: Never Smokeless Tobacco: Never Tobacco Cessation:Ready to Q uit: No Alcohol Use Standard Drinks/Week Comments Yes 2 (1 standard drink = 0.6 oz pur e alcohol) Sex and Gender Information Value Date Recorded Sex Assigned at Not on file Gender Identity Not on file Sexual Orientation Not on file Last Filed Vital Signs Vital Sign Reading Time Taken Comments Blood Pressure 155/84 04/03/2023 9:54 AM EST Pulse 95 04/03/2023 9:54 AM EST Temperature 37 ??C (98.6 ??F) 04/03/2023 9:54 AM EST Respiratory Rate 17 04/03/2023 9:54 AM EST Oxygen Saturation 98% 04/03/2023 9:54 AM EST Inhaled Oxygen Concentration - - Weight 79.5 kg (175 lb 4.3 oz) 04/03/2023 9:54 A M EST Height 180.5 cm (5' 11.06) 04/03/2023 9:[address] Body Mass Index 24.4 04/03/2023 9:54 AM EST Plan of Treatment Health Maintenance Due Date Last Done Comments CT Colonography 1954 Colonoscopy 1954 Colorectal Cancer Screening 1954 FIT DNA 1954 FIT 1954 Sigmoidoscopy (10 year) with FIT yearly 1954 Sigmoidoscopy 1954 Hepatitis C Screening 1972 Lipid Screening 1972 Tdap adult 1973 Tetanus vaccine 1973 Zoster vaccine (1 of 2) 2004 Advance Directive 2009 Pneumoccocal Vaccine: 65+ (1 of 1 - PCV) 2019 Covid-19 Vaccine ( - 2022-2 4 season) 2022 Influenza (Flu) vaccine (1 o f 1 - Influenza standard series) 12/09/2023 Diabetes Screening (HgbA1C o r Glucose) Discontinued 03/17/2023, 03/14/2023, 12/08/2019, Additional history exists Procedures Procedure Name Priority Date/Time Associated Diagnosis Comments BASIC METABOLIC PANEL STAT 03/17/2023 11:06 AM EST from Last 3 Months or Most Recently Relevant to Health Maintenance Results * Basic Metabolic Panel (non-fasting) (03/17/2023 11:06 AM EST) Glucose 93 65 - 199 mg/dL [facility] Comment:Diabetes: >=200 mg/d L plus symptoms Blood Urea Nitrogen 12 10 - 20 mg/dL [facility] Creatinine 0.99 0.80 - 1.50 mg/dL [facility] Sodium 136 135 - 145 mmol/L [facility] Potassium 4.3 3.5 - 5.0 mmol/L [facility] Comment: Please note: ??Patients with WBC >100,000 may have falsely elevated Potassium levels. ??For accurate Potassium quantification in these patients send serum separator tube (gold top) for subsequent determinations. ??Contact the Clinical Chemistry Laboratory if there are any questions. Chloride 100 98 - 107 mmol/L [facility] Carbon Dioxide 22 22 - 31 mmol/L [facility] Anion Gap 14 5 - 15 mmol/L [facility] Calcium 9.5 8.5 - 10.5 mg/dL [facility] Est Glomerular Filtration Rate 83 >=60 mL/min/1. 73 m?? [facility] Comment: This patient's estimated GFR was calculated using the 2020 CKD-EPI equation. The estimated GFR can vary from the measured GFR by up to 30% in the absence of rapidly changing kidney function. Assessment of the estimated GFR is not appropriate when creatinine concentrations are rapidly changing. For clinical situations in which a more precise estimate of GFR is necessary, consider alternative methods of GFR estimation such as a 24-hour urine creatinine clearance. Assignment of CKD stage 1-5 for patients with an eGFR near the transition point between stages may be based on clinical assessment of muscle mass and symptoms in addition to eGFR. Blood 03/17/2023 11:0 6 AM EST 03/17/2023 11:14 AM EST Narrative Resulting Agency Comment Spec In Lab Quentin Carlin MD CHEMISTRY ORDERABLES [facility] [place] [address] from Last 3 Months or Most Recently Relevant to Health Maintenance Advance Directives * Attempt Cardiopulmonary Resuscitation - Inpatient (Latest Code Status on File) Date Activated Date Inactivated Comments 03/17/2023 11:19 AM 03/20/2023 2:25 PM Question Answer Comments Code Status decision made by: Patient * Attempt Cardiopulmonary Resuscitation - Inpatient Date Activated Date Inactivated Comments 12/08/2019 8:44 PM 12/09/2019 10:30 PM Question Answer Comments Code Status decision made by: Patient * Attempt Cardiopulmonary Resuscitation - Inpatient Date Activated Date Inactivated Comments 11/10/2019 1:21 AM 11/14/2019 5:18 PM Question Answer Comments Code Status decision made by: Patient * Attempt Cardiopulmonary Resuscitation - Inpatient Date Activated Date Inactivated Comments 11/09/2019 3:42 PM 11/10/2019 1:21 AM Question Answer Comments Code Status decision made by: Patient * Full Code Date Activated Date Inactivated Comments 10/24/2019 6:05 PM 10/26/2019 4:10 PM Question Answer Comments Does patient have capacity to make decision: Yes Care Teams Heating Equipment Repairer Relationship Specialty Start Date End Date Christiana Moore APRN [address] [place] [address] PCP - General Family Medicine 09/26/19
--- OUTSIDE RECORDS SUMMARY | 2023-11-12 02:14 | XMS_ITS | Clinical Summary ---
Author Organization [facility] Address [address] [place] [address] Phone Care Team Providers Care Psychiatric Therapist Name Role Phone Chris Kwan MD, Garrison Unavailable [phone] Donald JORDAN, Ramakrishna Noyola Unavailable [phone] Reason for Visit and Chief Complaint The Chief Complaint is: Post op visit s/p diagnostic laparoscopy converted to open low anterior resection, umbilical hernia repair, sigmoidoscopy 05-09-23, reports issues with constipation, still taking antibiotics and packing abdominal wound site- states improvement with stie Problems Includes: Problems addressed during this encounter [...] status post open low anterior resection for large bowel obstruction and sigmoid stricture Which was complicated by superficial wound infection. 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 He will finish the course of antibiotics as there is no ongoing signs of infection at this point. Continue packing the wound. Follow-up with me in a month - Last Documented On 06/01/2023 10:17AM ; [facility] Education and Decision Aids were provided during visit for: Education and counseling Adv ise patient to return to office at any time prior to next visit with new problem or any clinical change Last Documented On 4 10:16AM ; [facility] Assessments Includes: Assessments from this encounter No Assessments Recorded Instructions Includes: Instructions from this encounter Education and Decision Aids were provided during visit for: Education and counseling Adv ise patient to return to office at any time prior to next visit with new problem or any clinical change Last Documented On 4 10:16AM ; [facility] Medical Equipment - [...] Results Recorded For Specified Dates Social History No Social History Recorded - Smoking Status Unknown Procedures and Surgical History Surgical History Last Updated History of partial colectomy Dr. Bennett 05/09/23 ~Diagnostic laparoscopy converted to open low anterior resection, umbilical hernia repair 05/25/2023 Last Documented On 4 9:55AM ; [facility] Medical History Includes: Medical History addressed during this encounter No Medical History Recorded Family History Includes: Family History addressed during this encounter Description Last Updated Paternal history of father 06/08 Last Documented On 4 9:55AM ; [facility] Maternal history of mother is alive 05/10 Last Documented On 4 9:55AM ; [facility] Review of Systems Includes: Review of Systems [...] Time Diagnosis Post-Op Visit Ramakrishna Bennett MD [facility] Surgery [facility] 06/01/19 9:52AM 10:14AM Insurance Includes: Active Insurance Policies Plan Name Member ID Group # Subscriber Relationship Effect lanre Dates 1 - AARP Medicare Advantage HMO/POS/PPO - [facility] [id number] Tree Lantigua Self 06/27/2023 - Unknown Clinical Notes Includes: Clinical Notes from this encounter * Progress note Date Encounter Last Documented by 06/01/2023 Post-Op Visit Last documented on 06/01/2023; 10:17 AM, Ramakrishna Bennett MD; [facility] Chief Complaint The Chief Complaint is: Post op visit s/p diagnostic laparoscopy converted to open low anterior resection, umbilical hernia repair, sigmoidoscopy 05-09-23, reports issues with constipation, still taking antibiotics and packing abdominal wound site- states improvement with stie. History of Present Illness Tree Lantigua is a 68 year old male. - Allergy list reviewed - Medication list reviewed 68-year-old male status post open low anterior resection complicated by a wound infection presenting for wound check. He reports ongoing constipation That is managed with MiraLAX and stool softeners, he admits to not drinking water like he should. No fevers, chills or obstructive symptoms Current Medication - Amoxicillin-Pot Clavulanate 875-125 MG Oral Tablet twice a day, 10 days, 0 refills Allergies - No Known Allergies Past Medical/Surgical History Surgical: - Partial colectomy Dr. Bennett 05/09/23 Diagnostic laparoscopy converted to open low anterior resection, umbilical hernia repair Family History Paternal: Father Maternal: Mother is alive Review Of Systems All other systems are negative except as stated above. Physical Findings - Vitals taken 06/01/2023 09:56 am PO General Appearance: - Well developed. - In no acute distress. Eyes: General/bilateral: Sclera: - Showed no icterus. Lungs: - Respiration rhythm and depth was normal. Cardiovascular: Jugular Venous Distention: - JVD not increased. Heart Rate And Rhythm: - Normal. Arterial Pulses: - Pulse amplitude right radial artery was normal 2+. Abdomen: Visual Inspection: - Abdomen was not distended. Palpation: - Abdominal non-tender Superficial wound infection that is healing, continue packing, no evidence of soft tissue changes. Musculoskeletal System: General/bilateral: - Normal movement of all extremities. Lower Leg: General/bilateral: - No localized swelling of lower leg. Neurological: - Oriented to time, place, and person. Psychiatric: - Mood was appropriate to the affect. Skin: - Mucous membranes were normal. - No skin lesions. Plan 68-year-old male status post open low anterior resection for large bowel obstruction and sigmoid stricture Which was complicated by superficial wound infection. 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 He will finish the course of antibiotics as there is no ongoing signs of infection at this point. Continue packing the wound. Follow-up with me in a month Care Team - Ramakrishna Bennett MD - Surgery (General) Counseling/Education - Education and counseling Advise patient [...]
--- OUTSIDE RECORDS SUMMARY | 2023-11-12 02:14 | XMS_ITS | Encounter Summary ---
Author Organization [facility] [address] Care Team Providers Care Hydraulic Blocker Name Role Phone Oscar Christiana DAVIS Primary Care Provider [phone] Reason for Visit * Reason Comments Follow-up Wound Infection Wound Check Encounter Details Date Type Department Care Team (Late st Contact Info) Description 04/03/2023 10:00 AM EST Office [place] [address] Jose Alvarez MD [facility] [place] [address] Complicated wound infection; Open wound of right chest wall with complication, subsequent encounter Social History Tobacco Use Types Packs/Day Years Used Date Smoking Tobacco: Never Smokeless Tobacco: Never Alcohol Use Standard Drinks/Week Comments Yes 2 (1 standard drink = 0.6 oz pur e alcohol) Sex and Gender Information Value Date Recorded Sex Assigned at Not on file Gender Identity Not on file Sexual Orientation Not on file documented as of this encounter Last Filed Vital Signs Vital Sign Reading [...] Mass Index 24.4 04/03/2023 9:54 AM EST documented in this encounter Progress Notes * Jose Alvarez MD - 04/03/2023 10:00 AM EST Thoracic Surgery Attending Outpatient Follow Up Note MD Belle Nance PA-C [place], [place] [address] FAX: Pre Op Dx: Mediastinal Mass Post Op Dx: Thymoma, Type A, Stage I Procedure (10/24/2019): Bronchoscopy, right VATS with evacuation of pleural fluid and partial decortication, right thoracotomy with resection of anterior mediastinal mass, wedge resection x5 of the right lung (11/09/2019): Right thoracotomy incision I&D and wound vac placement (12/09/2019): Right thoracotomy incision I&D and wound vac placement (03/18/2023): Right thoracotomy incision I&D, wet-to-dry dressings Pathology (10/24/2019): Anterior mediastinal mass -- 8.5 cm Thymoma, type A, confined to the thymus,-LVI, -Capsular invasion. Wedge resections RLL, RML and RUL- benign lymph nodes Complications: Surgical site infection (2019) ultimately healed with abx, debridement and VAC placement; surgical site infection (2022) Treatment: BID wet-to-dry dressing changes HPI: Tree Lantigua is a 67 y.o. male who is s/p I&D of his right thoracotomy incision on 03/18/23. He has been doing wet-to-dry dressing changes twice daily and has completed his two week course of bactrim. He denies fever, n/v, dyspnea. Dressing changes are easy, doesn't need pain meds. Being done by his . Medications: Current Outpatient Medications on File Prior to Visit Medication Sig Dispense Refill acetaminophen (Tylenol) 325 mg tablet Take 3 tablets by mouth every 6 hours. sulfamethoxazole-trimethoprim DS (Bactrim DS) 800-160 mg tablet Take 1 tablet by mouth 2 times daily for 14 days. 28 tablet 0 ibuprofen (Advil) 600 mg tablet Take 1 tablet by mouth every 6 hours as needed for Pain. senna (Senokot) 8.6 mg tablet Take 2 tablets by mouth every evening. No current facility-administered medications on file prior to visit. Physical Exam: BP 155/84 (Patient Position: Sitting) Pulse 95 Temp 37 ??C (98.6 ??F) (Temporal) Resp 17 Ht180.5 cm (5' 11.06) Wt 79.5 kg (175 lb 4.3 oz) SpO2 98% BMI 24.40 kg/m?? General Appearance: Alert, pleasant, no distress Lungs: Clear to auscultation bilaterally, respirations unlabored, no wheezes, crackles or ronchi. Heart: Regular rate and rhythm, S1 and S2 normal, no murmur, rub, or gallop Abdomen: Soft, non-tender, non-distended Extremities: Extremities normal, atraumatic, no cyanosis or edema Wound/Incision: Right thoracotomy incision with evidence of granulation tissue and no purulence. There is an approximately 2.5cm tunnel tracking posteriorly and superiorly. Imaging: I have independently visualized the following studies: CT Chest (03/14/23): 1. Incompletely characterized increased right trapezius muscle bulk and heterogeneity adjacent to the thoracotomy and given the interval change this raises concern for an acute infectious/inflammatory process. Given the displacement of the dystrophic calcification it also raises concern for a possible developing abscess/fluid collection which may have similar density to the surrounding soft tissues for which evaluation with ultrasound or MR is recommended. 2. Unchanged size and number of bilateral subcentimeter pulmonary and pleural-based nodules. 3. No pleural effusion. Assessment: Tree Lantigua is a 67 y.o. male s/p right thoracotomy, partial decortication, resection of anterior mediastinal mass on 10/24/19 for a Type A stage I thymoma, course c/b surgical site infection requiring I&D and wound vac placement x2 on 11/09/19 and 12/09/19. He re-presented with a wound infectionat the apex of the thoracectomy incision -- I&D done in the hospital and now getting dressing ch ольга. Wound healing well. Plan: 1. Damp to Damp BID dressing changes. They will update us every week or two and let us know how things are healing. Pictures via myDH will be helpful. 2. They will be in [place] until August 2023 and they will come back at that point to see us for a wound check.. 3. CT chest in 1 year from his scan in March. 4. Call with any questions. If the wound isn't healing as expected, then we will need to find a wound care team in [place] to see the patient. Patient seen and examined with Dr. Alvarez. Belle Nugent PA-C 04/03/23 I have seen the patient and reviewed the PA/resident's above history and I agree with the details as written. The assessment and plan were formulated in discussion with me and I agree with them as documented. JOSE ALVAREZ MD documented in this encounter Plan of Treatment Not on file documented as of this encounter Visit Diagnoses Diagnosis Complicated wound infection Open wound of right chest wall with complication, subsequent encounter documented in this encounter Care Teams Hydraulic Blocker Relationship Specialty Start Date End Date Christiana Moore APRN [address] [place] [address] PCP - General Family Medicine 09/26/19 documented as of this encounter
--- OUTSIDE RECORDS SUMMARY | 2023-11-12 02:14 | XMS_ITS ---
Care Plan - [facility] Created on: November 12, 2023 Tree Lantigua : 1955 Sex: Male Author Organization [facility] Address [address] [place] [address] Phone Care Team Providers Care Stock Handler Name Role Phone Chris Kwan MD, Garrison Unavailable [phone] Donald JORDAN, Ramakrishna Dennys Unavailable [phone]
--- OUTSIDE RECORDS SUMMARY | 2023-11-12 02:14 | XMS_ITS | Clinical Summary ---
Author Organization [facility] Address [address] [place] [address] Phone Care Team Providers Care Historic Interpreter Name Role Phone Chris Kwan MD, Garrison Unavailable [phone] Donald JORDAN, Ramakrishna Noyola Unavailable [phone] Reason for Visit and Chief Complaint The Chief Complaint is: PO diagnostic laparoscopy converted to open low anterior resection, umbilical hernia repair, sigmoidoscopy Problems Includes: Problems addressed during this encounter [...] Plan of Treatment 68-year-old male status post ex lap and sigmoidectomy for a benign colonic stricture presenting for postop follow-up. Benwood removed and wound opened for concerns of low ongoing drainage. Given his recurrent soft tissue infections I will give him antibiotic and will pack the wound. Packing to be performed daily With dry gauze. He is was taught and trained how to do this. follow-up with me in a week - Last Documented On 05/25/2023 2:07PM ; [facility] Education and Decision Aids were provided during visit for: Education and counseling Adv ise patient to return to office at any time prior to next visit with new problem or any clinical change Last Documented On 4 2:05PM ; [facility] Assessments Includes: Assessments from this encounter No Assessments Recorded Instructions Includes: Instructions from this encounter Education and Decision Aids were provided during visit for: Education and counseling Adv ise patient to return to office at any time prior to next visit with new problem or any clinical change Last Documented On 4 2:05PM ; [facility] Medical Equipment - Implanted Devices Includes: Current Devices No Medical Equipment Recorded Medications Includes: Medications discussed during this encounter and other current Medications New / Renewed during this visit Ramakrishna Bennett MD on 05/25/2023 Amoxicillin-Pot Clavulanate 875-125 MG Oral Tablet Provider: Ramakrishna hernandez MD 10 day supply: 20 tablet, 0 refills Diagnosis: twice a day Pharmacy: [facility] [place] (24 Hour) - [address] [facility], [phone] - Last Documented On 4 1:37PM By Celena Sanodval RN ; [facility] Medications Administered [...] hernia repair 05/25/2023 Last Documented On 4 2:07PM ; [facility] Medical History Includes: Medical History addressed during this encounter No Medical History Recorded Family History Includes: Family History addressed during this encounter Description Last Updated Paternal history of father 05/10 Last Documented On 4 2:07PM ; [facility] Maternal history of mother is alive 05/10 Last Documented On 4 2:07PM ; [facility] Review of Systems Includes: Review [...] Time Diagnosis Post-Op Visit Ramakrishna Bennett MD [facility] Surgery [facility] 05/25/19 24 1:06PM 1:40PM Insurance Includes: Active Insurance Policies Plan Name Member ID Group # Subscriber Relationship Effect lanre Dates 1 - [employer] Medicare Advantage HMO/POS/PPO - [facility] [id number] Tree Lantigua Self 06/27/2023 - Unknown Clinical Notes Includes: Clinical Notes from this encounter * Progress note Date Encounter Last Documented by 05/25/2023 Post-Op Visit Last documented on 05/25/2023; 2:07 PM, Ramakrishna Bennett MD; [facility] Chief Complaint The Chief Complaint is: PO diagnostic laparoscopy converted to open low anterior resection, umbilical hernia repair, sigmoidoscopy. History of Present Illness Tree Lantigua is a 68 year old male. - Allergy list reviewed - Medication list reviewed 68-year-old male status post exploratory laparotomy and sigmoid colectomy with colorectal anastomosis presenting for postop follow-up. He has recovered well from surgery. 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 No fevers or chills. Tolerating a diet without difficulty Allergies - No Known Allergies Past Medical/Surgical History Surgical: - Partial colectomy Dr. Bennett 05/09/23 Diagnostic laparoscopy converted to open low anterior resection, umbilical hernia repair Family History Paternal: Father Maternal: Mother is alive Review Of Systems All other systems are negative except as stated above. Physical Findings General Appearance: - Well developed. - In no acute distress. Eyes: General/bilateral: Sclera: ? Showed no icterus. Lungs: - Respiration rhythm and depth was normal. Cardiovascular: Jugular Venous Distention: ? JVD not increased. Heart Rate And Rhythm: ? Normal. Arterial Pulses: ? Pulse amplitude right radial artery was normal 2+. Abdomen: Visual Inspection: ? Abdomen was not distended. Palpation: ? Abdominal non-tender Soft, nondistended, cloudy drainage from the middle portion of the wound that could be secondary to fat necrosis, no soft tissue changes. Ricardo removed in the office today and wound opened and packed. Musculoskeletal System: General/bilateral: ? Normal movement of all extremities. Lower Leg: General/bilateral: ? No localized swelling of lower leg. Neurological: - Oriented to time, place, and person. Psychiatric: - Mood was appropriate to the affect. Skin: - Mucous membranes were normal. - No skin lesions. Plan StartCited - Other Amoxicillin-Pot Clavulanate 875-125 MG tablet twice a day, 10 days, 0 refills EndCited 68-year-old male status post ex lap and sigmoidectomy for a benign colonic stricture presenting for postop follow-up. Ricardo removed and wound opened for concerns of low ongoing drainage. Given his recurrent soft tissue infections I will give him antibiotic and will pack the wound. Packing to be performed daily With dry gauze. He is was taught and trained how to do this. follow-up with me in a week Counseling/Education - Education and counseling Advise patient to return to office at any time prior to next visit with new problem or any clinical change Bottom of Document The Century Cures Act makes medical notes like [...]
--- OUTSIDE RECORDS SUMMARY | 2023-11-12 02:14 | XMS_ITS ---
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 Name Role Phone Chris Kwan MD, Garrison Unavailable [phone] Donald JORDAN, Ramakrishna Noyola Unavailable [phone] Problems Includes: Active, inactive, and resolved Problems All Visits Onset Date Resolved Date [...] ; [facility] Plan of Treatment Education and Decision Aids were provided during visit for: Education and counseling Adv ise patient to return to office at any time prior to next visit with new problem or any clinical change Last Documented On 4 10:09AM ; [facility] Education and counseling Adv ise patient to return to office at any time prior to next visit with new problem or any clinical change Last Documented On 4 10:45AM ; [facility] No patient education , clara ladd Advanced Directive pt declined Last Documented On 4 9:24AM ; [facility] Education and counseling Adv ise patient to return to office at any time prior to next visit with new problem or any clinical change Last Documented On 4 10:16AM ; [facility] Education and counseling Adv ise patient to return to office at any time prior to next visit with new problem or any clinical change Last Documented On 4 2:05PM ; [facility] Assessments Includes: Assessments for all patient encounters Findings Encounter Date [K57.30 - Diverticulosis of large intestine without perforation or abscess without bleeding] colonic diverticulosis LUTS postsurgery. Patient is doing well Continue to follow with surgery Dr. 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 Okay to change to collagen dressing changes New Patient/Consult with Garrison Kwan MD 06/28/2023 Last Documented On 4 10:09AM ; [facility] [Z86.010 - Personal history of colonic polyps] Personal history of colon polyps Continue to follow with GI for repeat colonoscopy New Patient/Consult with Garrison Kwan MD 06/28/2023 Last Documented On 4 10:09AM ; [facility] Instructions Includes: Instructions for all patient encounters Education and Decision Aids were provided during visit for: Education and counseling Adv ise patient to return to office at any time prior to next visit with new problem or any clinical change Last Documented On 4 10:09AM ; [facility] Education and counseling Adv ise patient to return to office at any time prior to next visit with new problem or any clinical change Last Documented On 4 10:45AM ; [facility] No patient education , clara ladd Advanced Directive pt declined Last Documented On 4 9:24AM ; [facility] Education and counseling Adv ise patient to return to office at any time prior to next visit with new problem or any clinical change Last Documented On 4 10:16AM ; [facility] Education and counseling Adv ise patient to return to office at any time prior to next visit with new problem or any clinical change Last Documented On 4 2:05PM ; [facility] Medical Equipment - Implanted Devices Includes: Current and historical Devices No Medical Equipment Recorded Medications Includes: Current and historical Medications Past Medications on file Amoxicillin-Pot Clavulanate 875-125 MG Oral Tablet 05/25/2023 - 06/04/2023 Provider: Ramakrishna mancilla MD Diagnosis: twice a day Last Documented On 1:37PM By Celena Sandoval RN ; [facility] Medications Administered Includes: Administered Medications in patient's chart No Administered Medications Recorded Vital Signs Includes: Vital Signs from 11/11/2020 through 11/12/2023 Vital Name 06/28/2023 09:33A Blood Pressure Sitting L 124/86 BP Cuff Size Regular Pulse Rate-Sitting (bpm) 68 Height (in) 71 Weight (lb) 169 Body Mass Index 23.6 Body Surface Area 2 Oxygen Saturation (%) 97 Last Documented: On 06/28/2023 9:37AM ; [facility] Results Includes: Results from 11/11/2020 through 11/12/[address] [facility] Lab oratory Ordered by Ramakrishna hernandez MD on 05/14/2023 [address] [place], [address] Collected: 05/14/2023 Report ed: 05/14/2023 15:26 tel: Last Documented On 7:15AM ; [facility] Reviewed by Ramakrishna smith MD on 05/15/2023; All test results are final unless otherwise noted. COMMENT~COMMENT See Note None Last Documented On 05/14/2023 4:36PM ; [facility] Note: RUN DATE: 05/14/23 [facility] LAB *LIVE* PAGE 1 RUN TIME: 1526 Specimen Inquiry RUN USER: INTERFACE PATIENT: TIMOTHY LANTIGUA LOC: StanleyAYOCHANCE U #: [id number] AGE/SX: 68/M ROOM: [facility] RE05/06/23REG DR: Josi Smith MD : 54 BED: 1 DIS: STATUS: ADM IN TLOC: SPEC #: [id number] RECD: 05/09/23 STATUS: FIORELLA REMandi #: [id number] RA: 05/09/23-[address]: Josi Smith MD ENTERED: 05/10/23-1020 SP TYPE: SURG OTHR DR: No Primary or Family Physician Ramakrishna Bennett MD, Carlos C Jr MD Mishra, Avantika MDORDERED: 95531/2, 51677, SPEC TRACKING, ANATOMIC SPECIM, HE/2 COPIES TO: No Primary or Family Physician oJsi Smith MD [address] [place], [place] [id number] Ramakrishna Bennett MD [address] [facility] [address] [place], [place] [id number] Jose Germain Jr, MD [address] [place] [address] [place] [address] [facility] [address] [place], [place] [id number] HISTOLOGY: TISSUE ID LEVEL PROCEDURE ____ APPENDIX A 2-1 HE COLON,SIGMOID B 12-1 PROCEDURES: [id number] (05/14/23-1521) 14882 (05/14/23) TISSUES: A. APPENDIX B. COLON,SIGMOID C. SOFT TISSUE - DONUTS CONTINUED ON NEXT PAGE RUN DATE: 05/14/23 [facility] Doc Hosp LAB *LIVE* PAGE 2 RUN TIME: 1526 Specimen Inquiry RUN USER: INTERFACE SPEC #: [id number] PATIENT: TIMOTHY LANTIGUA #[id number] (Continued) --- CLINICAL HISTORY BOWEL OBSTRUCTION FINAL DIAGNOSIS A. Appendix, appendectomy: - Benign appendix with luminal and lamina propria abscess formation consistent with acute appendicitis. B. Sigmoid colon, segmental colonic resection: - Abundant colonic diverticula with a diverticulitis, abscess formation, stenosis and fistulous diverticula. - Abundant benign pericolonic lymph nodes. C. Donuts, excision: - Benign colonic donuts. GROSS A. The specimen is labeled appendix. Received in formalin is an appendix measuring 6.5 x1.0 x 1.0 cm. A moderate amount of fatty tissue is attached to the specimen. The serosalsurface is smooth and glistening. The specimen is sectioned to reveal a narrow lumen. There is no gross evidence of tumor. Hedis Abstractor sections are submitted labeled A1 A2. B. The specimen is labeled sigmoid colon. Received in formalin is a segmental resectionof colon which is not oriented. The specimen measures 20 cm in length by 6 cm in averagediameter. Abundant fatty tissue is attached to the specimen. The serosal surface has ahemorrhagic inflamed appearance. The specimen is serially sectioned reveal a stricturenear the center of the specimen. In this area, there appears to be a deep fissure ordiverticulum which extends into the pericolic fat. No definite polyp or tumor isidentified in this region grossly. The surrounding mucosa is bruce velvety with normalfolds. Numerous lymph nodes are identified which appeared to be reactive grossly. Hedis Abstractor sections are submitted as follows. Section summary: B1: Margin of resection B2: Opposite margin B3 through B 11: Areas of stricture B 12: Additional possible lymph nodes C. the specimen is labeled donuts. Received in formalin is a metallic ample containingtwo donuts. These are not oriented. The specimens each measure 1.5 cm in greatestdimension and are entirely submitted in cassette C1. Technical component performed at [facility] [id number] [place] [address] [address], [place] [address] Unless gross only, the diagnosis is based upon microscopic examination.Immunohistochemistry: This test was developed and its performance characteristics CONTINUED ON NEXT PAGE RUN DATE: 05/14/23 [facility] Gina Castellon [facility] LAB *LIVE* PAGE 3 RUN TIME: 152 Specimen Inquiry RUN USER: INTERFACE SPEC #: [id number] PATIENT: TIMOTHY LANTIGUA #[id number] (Continued) --- JULIA (Continued) determined by this laboratory. It has not been approved nor does it need approval by [place] FDA. Appropriate positive and negative controls are reviewed and judged to beacceptable. This laboratory is certified under the Clinical Laboratory ImprovementAmendments (CLIA-88) as qualified to perform high complexity clinical laboratory testing. MICROSCOPIC DESCRIPTION Performed. -- Signed <Signature on file> Yazmin Molina MD 05/14/23 1526 END OF REPORT Reported [facility] Lab oratory Ordered by Ramakrishna hernandez MD on 05/14/2023 [address] [place], [address] Collected: 05/14/2023 Report ed: 05/14/2023 15:26 tel: Last Documented On 7:15AM ; [facility] Reviewed by Ramakrishna smith MD on 05/15/2023; All test results are final unless otherwise noted. Reported Physicians See Note None Last Documented On 05/14/2023 4:36PM ; [facility] Note: Reported Physicians:Ordering: Donald SergioAttending: Chyshkevych, IrynaReferring: Referred, SelfConsulting: AMARI GUSMANAdmitting: Chyshkevych, IrynaCopy To: Physician, NoCopy To: Donald SergioCopy To: Marcellus CarlosCkatherine To: Pratibha Waldrop CYTOLOGY (NON-KEYLINER) [facility] Lab oratory Ordered by Ramakrishna hernandez MD on 05/11/2023 [address] [place], [address] Collected: 05/11/2023 Report ed: 05/11/2023 15:09 tel: Last Documented On 3:45PM ; [facility] Reviewed by Ramakrishna smith MD on 05/11/2023; All test results are final unless otherwise noted. COMMENT~COMMENT See Note None Last Documented On 05/11/2023 3:34PM ; [facility] Note: RUN DATE: 05/11/23 [facility] [place] Doc Hosp LAB *LIVE* PAGE 1 RUN TIME: 1509 Specimen Inquiry RUN USER: INTERFACE PATIENT: TIMOTHY LANTIGUA LOC: SUZANNE U #: [id number] AGE/SX: 68/M ROOM: [facility] RE05/06/23REG DR: Josi Smith MD : 54 BED: 1 DIS: STATUS: ADM IN TLOC: SPEC #: [id number] RECD: 05/10/23-1251 STATUS: SOUT REQ #: [id number] RA: 05/09/23-[address]: Josi Smith MD ENTERED: 05/10/23-1252 SP TYPE: CYTO OTHR DR: No Primary or Family Physician Ramakrishna Bennett MD, Carlos C Jr MD Mishra, Avantika MDORDERED: [id number], [id number], SPEC TRACKING, ANATOMIC SPECIM, HE COPIES TO: No Primary or Family Physician Josi Smith MD [address] [facility], [place] [id number] Ramakrishna Bennett MD [address] [facility] [address] [place], [place] [address] Jose Germain Jr, MD [address] [place] [address] [place] [address] [facility] [address] [place], [place] [address] HISTOLOGY: TISSUE ID LEVEL PROCEDURE ____ *PERITFL A 1-1 PROCEDURES: [id number] (05/11/23-1456) 59172 (05/11/23) TISSUES: A. PERITONEAL FLUID - 7.0CC OF DARK RED TURBID FLUID CONTINUED ON NEXT PAGE RUN DATE: 05/11/23 [facility] Doc Hosp LAB *LIVE* PAGE 2 RUN TIME: 1509 Specimen Inquiry RUN USER: INTERFACE SPEC #: [id number] PATIENT: ELMERTIMOTHY #[id number] (Continued) CLINICAL HISTORY BOWEL OBSTRUCTION FINAL DIAGNOSIS PERITONEAL FLUID FOR CYTOLOGY (THIN PREP AND CELL BLOCK): - CYTOLOGIC DIAGNOSIS: NEGATIVE FOR MALIGNANCY. - CELLS PRESENT: MESOTHELIAL CELLS AND SCANT ACUTE INFLAMMATION. - SPECIMEN ADEQUACY: SATISFACTORY. GROSS Labeled with the patient's name, date of , account number and peritoneal fluid:Received are 7 cc of dark red turbid fluid. The specimen is fixed in CytoLyt, a ThinPrepand a cell block are prepared. Technical component performed at [facility] [id number] [place] [address] [address], [place] [address] Unless gross only, the diagnosis is based upon microscopic examination.Immunohistochemistry: This test was developed and its performance characteristicsdetermined by this laboratory. It has not been approved nor does it need approval by [place] FDA. Appropriate positive and negative controls are reviewed and judged to beacceptable. This laboratory is certified under the Clinical Laboratory ImprovementAmendments (CLIA-88) as qualified to perform high complexity clinical laboratory testing. Signed <Signature on file> SHAZIA JENKINS MD 05/11/23 1509 END OF REPORT Reported [facility] Lab oratory Ordered by Ramakrishna hernandez MD on 05/11/2023 [address] [place], [address] Collected: 05/11/2023 Report ed: 05/11/2023 15:09 tel:[phone] Last Documented On 4 3:45PM ; [facility] Reviewed by Ramakrishna smith MD on 05/11/2023; All test results are final unless otherwise noted. Reported Physicians See Note None Last Documented On 05/11/2023 3:34PM ; [facility] Note: Reported Physicians:Ordering: Raymond BennettoAttending: Chyshkevmatthew, IrynaReferring: Referred, SelfConsulting: Physician, NoAdmitting: Chchristo, IrynaCopy To: Physician, NoCopy To: Donald SergioCopy To: Marcellus CarlosCkatherine To: Pratibha Waldrop SURGICAL [facility] Lab oratory Ordered by Ramakrishna hernandez MD on 05/10/2023 [address] [facility], [place], [address] Collected: 05/10/2023 Report ed: 05/10/2023 14:18 tel: Last Documented On 4 3:45PM ; [facility] Reviewed by Ramakrishna smith MD on 05/11/2023; All test results are final unless otherwise noted. Review Note Provider Name Date reviewed with patient Ramakrishna Bennett MD 05/2023 COMMENT~COMMENT See Note None Last Documented On 05/10/2023 3:23PM ; [facility] Note: RUN DATE: 05/10/23 [facility] PAGE 1 RUN TIME: 1418 Specimen Inquiry RUN USER: INTERFACE PATIENT: TIMOTHY LANTIGUA LOC: StanleyAYOCHANCE U #: [id number] AGE/SX: 68/M ROOM: [facility] RE05/06/23REG DR: Josi Smith MD : 53 BED: 1 DIS: STATUS: ADM IN TLOC: SPEC #: [id number] RECD: 05/08/23-1599 STATUS: FIORELLA REMandi #: [id number] RA: 05/08/23-[address] [facility] [address]: Josi Smith MD ENTERED: 05/09/23-1227 SP TYPE: SURG OTHR DR: No Primary or Family Physician Ramakrishna Bennett MD, Carlos C Jr MD Mishra, Avantika MDORDERED: [id number], SPEC TRACKING, ANATOMIC SPECIM, HE COPIES TO: No Primary or Family Physician Josi Smith MD [address] [place] [address] Ramakrishna Bennett MD [address] [facility] [address] [place] [address] Jose Germain Jr, MD [address] [address] [place] [address] [facility] [address] [place] [address] HISTOLOGY: TISSUE ID LEVEL PROCEDURE ____ COLON A 1-1 PROCEDURES: [id number] (05/10/23-1107) TISSUES: A. COLON - BX CONTINUED ON NEXT PAGE RUN DATE: 05/10/23 [facility] Gina Castellon Hosp LAB *LIVE* PAGE 2 RUN TIME: 1418 Specimen Inquiry RUN USER: INTERFACE SPEC #: [id number] PATIENT: TIMOTHY LANTIGUA #[id number] (Continued) --- CLINICAL HISTORY DIVERTICULITIS FINAL DIAGNOSIS COLON, STRICTURE; BIOPSY: - NEGATIVE FOR NEOPLASM. - BENIGN COLONIC MUCOSA WITH MILD NONSPECIFIC CRYPT ARCHITECTURAL DISTORTION. - NO EVIDENCE OF DYSPLASIA OR COLITIS. GROSS Received in formalin labeled with patient's name, date of , account number andcolonic stricture are 3 fragments of bruce tissue measuring 0.2-0.3 cm. The specimen istotally embedded in 1 cassette. Technical component performed at [facility] [address] [facility] [address], [place] [address] Unless gross only, the diagnosis is based upon microscopic examination.Immunohistochemistry: This test was developed and its performance characteristicsdetermined by this laboratory. It has not been approved nor does it need approval by [place] FDA. Appropriate positive and negative controls are reviewed and judged to beacceptable. This laboratory is certified under the Clinical Laboratory ImprovementAmendments (CLIA-88) as qualified to perform high complexity clinical laboratory testing. Signed <Signature on file> SHAZIA JENKINS MD 05/10/23 1418 END OF REPORT Reported [facility] Lab oratory Ordered by Ramakrishna hernandez MD on 05/10/2023 [address] [place], [address] Collected: 05/10/2023 Report ed: 05/10/2023 14:18 tel: Last Documented On 3:45PM ; [facility] Reviewed by Ramakrishna smith MD on 05/11/2023; All test results are final unless otherwise noted. Review Note Provider Name Date reviewed with patient Ramakrishna Bennett MD 05/2023 Reported Physicians See Note None Last Documented On 05/10/2023 3:23PM ; [facility] Note: Reported Physicians:Ordering: Raymond BennettoAttending: Adolfo SmithaReferring: Referred, SelfConsulting: Physician, NoAdmitting: Wade SmithynaCodaisy To: Physician, NoCopy To: Raymond BennettoCopy To: Marcellus CarlosCkatherine To: Pratibha Waldrop Social History Description Last Updated Amount of sleep was eight hours/day 06/08 Last Documented On 4 10:09AM ; [facility] Caffeine use 06/28/2023 Last Documented On 4 10:09AM ; [facility] Currently 06/28/2023 Last Documented On 4 10:09AM ; [facility] Daily coffee consumption was one cups pe r day 06/28/2023 Last Documented On 4 10:09AM ; [facility] DME in home: grab bars in shower/tub Last Documented On 4 10:09AM ; [facility] Housing with smoke detectors 06/28/2023 Last Documented On 4 10:09AM ; [facility] Lives in private residence 06/28/2023 Last Documented On 4 10:09AM ; [facility] Lives with spouse 06/28/2023 Last Documented On 4 10:09AM ; [facility] Never a smoker 06/28/2023 Last Documented On 4 10:09AM ; [facility] Not using alcohol 06/28/2023 Last Documented On 4 10:09AM ; [facility] Not using drugs 06/28/2023 Last Documented On 4 10:09AM ; [facility] Retired from work 06/28/2023 Last Documented On 4 10:09AM ; [facility] Using a seatbelt 06/28/2023 Last Documented On 4 10:09AM ; [facility] Using sunscreen 06/28/2023 Last Documented On 4 10:09AM ; [facility] Smoking Status Unknown Procedures and Surgical History Includes: Procedures from 11/11/2020 through 11/12/2023 Procedures Code Diagnosis Performing Provider Service Location Service Date Body Mass Index, documented 3008F Body mass index [BMI] 23.0-23.9, adult Garrison Kwan MD [facility] 208 06/28/2023 Last Documented On 4 2:53PM ; [facility] P[facility] Most recent systolic blood pressure <130 mmHg 3074F Body mass index [BMI] 23.0-23.9, adult Garrison Kwan MD [facility] 208 06/28/2023 Last Documented On 4 2:53PM ; [facility] Most recent diastolic blood pressure 80-89mmHg 3079F Body mass index [BMI] 23.0-23.9, adult Garrison Kwan MD [facility] 208 06/28/2023 Last Documented On 4 2:53PM ; [facility] Colectomy, Part W/coloproctostomy 46808 Dvtrcli of lg int w perforation and abscess w/o bleeding Ramakrishna Bennett MD [facility] In-Patient 05/09/2023 Last Documented On 4 11:20AM ; [facility] Surgical History Last Updated History of partial colectomy Dr. Bennett 05/09/23 ~Diagnostic laparoscopy converted to open low anterior resection, umbilical hernia repair 05/25/2023 Last Documented On 4 2:07PM ; [facility] Medical History Includes: Medical History in patient's chart Description Last Updated History of diverticulitis of colon 06/27 Last Documented On 4 10:09AM ; [facility] Family History Includes: Family History in patient's chart Description Last Updated Fraternal history of brother is alive x2 06/28/2023 Last Documented On 4 10:09AM ; [facility] 2 children 06/28/2023 Last Documented On 4 10:09AM ; [facility] Children 06/28/2023 Last Documented On 4 10:09AM ; [facility] Paternal history of father was 95 06/28/2023 Last Documented On 4 10:09AM ; [facility] Maternal history of mother is alive 05/10 Last Documented On 4 2:07PM ; [facility] Review of Systems Review of Systems not supported for this document type No Review of Systems Recorded Mental Status Description Oriented to time, place, and person Functional Status No Functional Status Recorded Physical Exam Physical Exam not supported for this document type No Physical Exam Recorded Allergies Includes: Active, inactive, and resolved Allergies No Known Allergies Encounters Includes: Encounters from 11/11/2020 through 11/12/2023 Encounter Provider Location Date Check-In Time Check-Out Time Diagnosis Post-Op Visit Ramakrishna Bennett MD [facility] Surgery [facility] 07/27/19 24 9:53AM 10:29AM Post-Op Visit Ramakrishna Bennett MD [facility] Surgery [facility] 06/29/19 24 9:55AM 10:12AM New Patient/Consul t Garrison Kwan MD [facility] 208 06/28/19 24 8:58AM 10:06AM Chronic Cutaneous Ulcer Non-pressure Back,Colonic Diverticulos is,Personal History of Colon Polyps Post-Op Visit Ramakrishna Bennett MD [facility] Surgery [facility] 06/01/19 24 9:52AM 10:14AM Post-Op Visit Ramakrishna Bennett MD [facility] Surgery [facility] 05/25/19 24 1:06PM 1:40PM DH Procedures Ramakrishna Bennett MD [facility] Surgery [facility] 05/09/19 24 3:00PM 11:59PM Insurance Includes: Active Insurance Policies Plan Name Member ID Group # Subscriber Relationship Effect lanre Dates 1 - [employer] Medicare Advantage HMO/POS/PPO - [facility] [id number] Timothy Lantigua Teddy 06/27/2023 - Unknown Clinical Notes Includes: Signed Clinical Notes starting from 11/17/2022 * Progress note Date Encounter Last Documented by 07/27/2023 Post-Op Visit Last documented on 07/27/2023; 10:10 AM, Ramakrishna Bennett MD; [facility] Chief Complaint The Chief Complaint is: PO diagnostic lap converted to open low anterior resection, umbilical hernia repair, sigmoidoscopy 05/09/23. History of Present Illness Timothy Lantigua is a 68 year old male. - Allergy list reviewed - Medication list reviewed 68-year-old male status post low anterior resection for sigmoid stricture presenting for postop follow-up. Had surgery 3 months ago has recovered well. Functionally doing great. Active Problems & Conditions - L98.429 - [...] was not distended. Palpation: - Abdominal non-tender Incisions clean dry and intact, completely healed. Musculoskeletal System: General/bilateral: - Normal movement of all extremities. Lower Leg: General/bilateral: - No localized swelling of lower leg. Neurological: - Oriented to time, place, and person. Psychiatric: - Mood was appropriate to the affect. Skin: - Mucous membranes were normal. - No skin lesions. Plan 68-year-old male status post low anterior resection for sigmoid stricture presenting for postop follow-up. He is doing great. He will need a colonoscopy in 6 months from surgery to rule out malignancy. Care Team - Ramakrishna Bennett MD - Surgery (General) - Garrison Kwan MD - Internal Medicine Counseling/Education - Education and counseling Advise patient to return to office at any time prior to next visit with new problem or any clinical change Bottom of Document The Cures Act makes medical notes like these [...] team for clarity related to medical records. * Progress note Date Encounter Last Documented by 06/29/2023 Post-Op Visit Last documented on 06/29/2023; 10:46 AM, Ramakrishna Bennett MD; [facility] Chief Complaint The Chief Complaint is: Post-Op Visit: Diagnostic Laparotomy converted to Open Low Anterior resection + umbilical hernia repair + sigmoidoscopy 05/09/2023. Reports doing better, 7 weeks out energy improving and was able to complete travel to [place] without issues. Here to assess abdominal wound if packing still required. History of Present Illness Timothy Lantigua is a 68 year old male. [...] any clinical change Bottom of Document The Cures Act makes medical notes like these [...] team for clarity related to medical records. * Progress note Date Encounter Last Documented by 06/28/2023 New Patient/Consult Last documen chetan on 06/28/2023; 10:09 AM, Garrison Kwan MD; [facility] Chief Complaint New patient/ consult History of Present Illness Timothy Lantigua is a 68 year old male. - Medication list reviewed. Adi is a really pleasant 68-year-old male who comes as a new patient. 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 He also was just recently in the hospital for an episode of diverticulitis for which she needed a partial colon resection for which she follows with Dr. Bennett. Wound seems to be healing a lot better he did take antibiotics. 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 He is getting wound care for the back wound they are doing some dressing changes they are planning to change to collagen. He does not look to be infected today. Still follows with his primary doctor back home in [place] and usually gets his yearly physicals and blood work there. PSA last summer Colonoscopy just recently done did not show any polyps he does have a history of polyps on his last colonoscopy in October 2021. Active Problems & Conditions - L98.429 - [...] stated above. Physical Findings - Vitals taken 06/28/2023 09:33 am BP-Sitting L 124/86 mmHg BP Cuff Size Regular Pulse Rate-Sitting 68 bpm Height 71 in Weight 169 lbs Body Mass Index 23.6 kg/m2 Body Surface Area 2 m2 Oxygen Saturation 97 % General Appearance: - Well-appearing. - Alert. - Well developed. - In no acute distress. Head: Appearance: - Head normocephalic. Neck: Appearance: - Of the neck was normal. Eyes: General/bilateral: Extraocular Movements: - Normal. Ears: General/bilateral: Outer Ear: - Normal. Nose: General/bilateral: Discharge: - No nasal discharge. Sinus Tenderness: - No sinus tenderness. Oral Cavity: - Normal. Pharynx: Oropharynx: - Normal. Lymph Nodes: - No adenopathy. - Supraclavicular lymph nodes were not enlarged. Chest: - No thoracic asymmetry was noted. Lungs: - Clear to auscultation. - No wheezing was heard. Cardiovascular: Heart Rate And Rhythm: - Heart rate was normal. Heart Sounds: - Normal. Abdomen: Visual Inspection: - Abdomen was not distended. Palpation: - Abdominal palpation revealed no abnormalities. - Abdominal non- tender. Musculoskeletal System: General/bilateral: - Musculoskeletal system: normal. Neurological: - Oriented to time, place, and person. Sensation: - No sensory exam abnormalities were noted. Skin: - Texture was normal. Assessment - Z86.010 - Personal history of colonic polyps Continue to follow with GI for repeat colonoscopy - K57.30 - Diverticulosis of large intestine without perforation or abscess without bleeding LUTS postsurgery. Patient is doing well Continue to follow with surgery Dr. Bennett - L98.429 - Non-pressure chronic ulcer of back with unspecified severity Continue to follow with home health for dressing changes. Okay to change to collagen dressing changes Plan StartCited - Non-pressure chronic ulcer of back with unspecified severity Referral Non-IMG/Home Health: Home Health Non IMG EndCited StartCited - Other Follow-up Next winter for FU EndCited Counseling/Education - Use of tobacco assessment performed The Cures Act makes medical notes like these [...] team for clarity related to medical records. Care Team - Ramakrishna Bennett MD - Surgery (General) - Garrison Kwan MD - Internal Medicine Health Reminders - Assess BMI satisfied 06/28/2023. - Assess Tobacco Use satisfied 06/28/2023. User Defined 3 Diet includes fruit daily. Current diet does not include fried foods or high-fat foods on a daily basis. No difficulty with mobility as observed at office visit, no difficulty washing dressing and feeding yourself, able to do one's own shopping, able to manage one's own medications, and able to manage one's own money. No high fiber diet or Whole Grain Foods Daily. User Defined 7 No patient education, regarding Advanced Directive pt declined. No advanced directive verified in medical record. No Pt has surrogate decision maker or advance care plan. User Defined 9 No dizziness upon standing up. No memory lapses or loss and no difficulty finding desired words. Patient screened for future fall risk: documentation of no falls in past year. User Defined 10 Standardized depression screening: negative for symptoms and for adult impression and score 0. User Defined 11 Not using tv, radio at high volume. No difficulty understanding speech. User Defined 20 History of complete colonoscopy 10/07/2021. * Progress note Date Encounter Last Documented by 06/01/2023 Post-Op Visit Last documented on 06/01/2023; 10:17 AM, Ramakrishna Bennett MD; [facility] Chief Complaint The Chief Complaint is: Post op visit s/p diagnostic laparoscopy converted to open low anterior resection, umbilical hernia repair, sigmoidoscopy 05-09-23, reports issues with constipation, still taking antibiotics and packing abdominal wound site- states improvement with stie. History of Present Illness Timothy Lantigua is a 68 year old male. [...] any clinical change Bottom of Document The Cures Act makes medical notes like these [...] team for clarity related to medical records. * Progress note Date Encounter Last Documented by 05/25/2023 Post-Op Visit Last documented on 05/25/2023; 2:07 PM, Ramakrishna Bennett MD; [facility] Chief Complaint The Chief Complaint is: PO diagnostic laparoscopy converted to open low anterior resection, umbilical hernia repair, sigmoidoscopy. History of Present Illness Timothy Lantigua is a 68 year old male. [...] to fat necrosis, no soft tissue changes. 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 [place] removed and wound opened for concerns of [...]
--- OUTSIDE RECORDS SUMMARY | 2023-11-12 02:14 | XMS_ITS | Clinical Summary ---
Author Organization [facility] Address [address] [place] [address] Phone Care Team Providers Care Retail Agent Name Role Phone Chris Kwan MD, Garrison Unavailable [phone] Donald JORDAN, Ramakrishna Noyola Unavailable [phone] Reason for Visit and Chief Complaint The Chief Complaint is: PO diagnostic lap converted to open low anterior resection, umbilical hernia repair, sigmoidoscopy 05/09/23 Problems Includes: Problems addressed during this encounter [...] Plan of Treatment 68-year-old male status post low anterior resection for sigmoid stricture presenting for postop follow-up. He is doing great. He will need a colonoscopy in 6 months from surgery to rule out malignancy. - Last Documented On 07/27/2023 10:10AM ; [facility] Education and Decision Aids were provided during visit for: Education and counseling Adv ise patient to return to office at any time prior to next visit with new problem or any clinical change Last Documented On 4 10:09AM ; [facility] Assessments Includes: Assessments from this encounter No Assessments Recorded Instructions Includes: Instructions from this encounter Education and Decision Aids were provided during visit for: Education and counseling Adv ise patient to return to office at any time prior to next visit with new problem or any clinical change Last Documented On 4 10:09AM ; [facility] Medical Equipment - [...] eight hours/day 06/08 Last Documented On 4 9:58AM ; [facility] Caffeine use 06/28/2023 Last Documented On 4 9:58AM ; [facility] Currently 06/28/2023 Last Documented On 4 9:58AM ; [facility] Daily coffee consumption was one cups pe r day 06/28/2023 Last Documented On 4 9:58AM ; [facility] DME in home: grab bars in shower/tub Last Documented On 4 9:58AM ; [facility] Housing with smoke detectors 06/28/2023 Last Documented On 4 9:58AM ; [facility] Lives in private residence 06/28/2023 Last Documented On 4 9:58AM ; [facility] Lives with spouse 06/28/2023 Last Documented On 4 9:58AM ; [facility] Never a smoker 06/28/2023 Last Documented On 4 9:58AM ; [facility] Not using alcohol 06/28/2023 Last Documented On 4 9:58AM ; [facility] Not using drugs 06/28/2023 Last Documented On 4 9:58AM ; [facility] Retired from work 06/28/2023 Last Documented On 4 9:58AM ; [facility] Using a seatbelt 06/28/2023 Last Documented On 4 9:58AM ; [facility] Using sunscreen 06/28/2023 Last Documented On 4 9:58AM ; [facility] Smoking Status Unknown Procedures and Surgical History Surgical History Last Updated History of partial colectomy Dr. Bennett 05/09/23 ~Diagnostic laparoscopy converted to open low anterior resection, umbilical hernia repair 05/25/2023 Last Documented On 4 9:58AM ; [facility] Medical History Includes: Medical History addressed during this encounter Description Last Updated History of diverticulitis of colon 06/27 Last Documented On 4 9:58AM ; [facility] Family History Includes: Family History addressed during this encounter Description Last Updated Fraternal history of brother is alive x2 06/28/2023 Last Documented On 4 9:58AM ; [facility] 2 children 06/28/2023 Last Documented On 4 9:58AM ; [facility] Children 06/28/2023 Last Documented On 4 9:58AM ; [facility] Paternal history of father was 95 06/28/2023 Last Documented On 4 9:58AM ; [facility] Maternal history of mother is alive 05/10 Last Documented On 4 9:58AM ; [facility] Review of Systems [...] Time Diagnosis Post-Op Visit Ramakrishna Bennett MD [facility] Surgery [facility] 07/27/19 9:53AM 10:29AM Insurance Includes: Active Insurance Policies Plan Name Member ID Group # Subscriber Relationship Effect lanre Dates 1 - AARP Medicare Advantage HMO/POS/PPO - [facility] [id number] Tree Lantigua Self 06/27/2023 - Unknown Clinical Notes Includes: Clinical Notes from this encounter * Progress note Date Encounter Last Documented by 07/27/2023 Post-Op Visit Last documented on 07/27/2023; 10:10 AM, Ramakrishna Bennett MD; [facility] Chief Complaint The Chief Complaint is: PO diagnostic lap converted to open low anterior resection, umbilical hernia repair, sigmoidoscopy 05/09/23. History of Present Illness Tere Lantigua is a 68 year old male. [...]
--- OUTSIDE RECORDS SUMMARY | 2023-11-12 02:14 | XMS_ITS | Encounter Summary ---
[place] [address] Care Team Providers Care Gas Substation Operator Name Role Phone Christiana Moore APRN Primary Care Provider [phone] Encounter Details Date Type Department Care Team (Late st Contact Info) Description 07/10/2023 Telephone [place] [id number] Tim Mcginnis Social History Tobacco Use Types Packs/Day Years [...] encounter Miscellaneous Notes * Telephone Encounter - Tim Mcginnis - 07/10/2023 4:03 PM EDT Call made, message left requesting return call. ----- Message from Courtney Wooten sent at 07/10/2023 1:48 PM EDT ----- Caller name: Self Call back number: [phone] Reason for call: Patient is requesting a call back from the office to schedule an appointment. Please call to advise. documented in this encounter Plan of Treatment Not on file documented as of this encounter Visit Diagnoses Not on filedocumented in this encounter Care Teams Gas Substation Operator Relationship Specialty Start Date End Date Christiana Moore APRN [address] [place] [address] PCP - General Family Medicine 09/26/19 documented as of this encounter
--- OUTSIDE RECORDS SUMMARY | 2023-11-12 02:14 | XMS_ITS | Clinical Summary ---
Author Organization [facility] Address [address] [place] [address] Phone Care Team Providers Care Torsion Spring Coiling Machine Setter Name Role Phone Chris Kwan MD, Garrison Unavailable [phone] Donald JORDAN, Ramakrishna Noyola Unavailable [phone] Reason for Visit and Chief Complaint New Patient/Consult Problems Includes: Problems addressed during this encounter and other active Problems Current Visit Onset Date Resolved Date Provider Conditio n Status Chronic Cutaneous Ulcer Non-pressure Back 06/28/2023 Garrison [...] ; [facility] Plan of Treatment Pending Tests Order Diagnosis Results Due Ordering P rovider Referral Non-IMG - Home Health Home Health Non IMG Non-pressure chronic ulcer of back with unspecified severity 06/28/23 Garrison Kwan MD Last Documented On 4 1:08AM ; [facility] Education and Decision Aids were provided during visit for: No patient education , clara ladd Advanced Directive pt declined Last Documented On 4 9:24AM ; [facility] Assessments Includes: Assessments from this encounter Findings - Z86.010 - Personal history of colonic polyps - Last Documented On 06/28/2023 10:09AM ; [facility] Continue to follow with GI for repeat colonoscopy - Last Documented On 06/28/2023 10:09AM ; [facility] - K57.30 - Diverticulosis of large intestine without perforation or abscess without bleeding - Last Documented On 06/28/2023 10:09AM ; [facility] LUTS postsurgery. - Last Documented On 06/28/2023 10:09AM ; [facility] Patient is doing well - Last Documented On 06/28/2023 10:09AM ; [facility] Continue to follow with surgery Dr. Bennett - Last Documented On 06/28/2023 10:09AM ; [facility] - L98.429 - Non-pressure chronic ulcer of back with unspecified severity - Last Documented On 06/28/2023 10:09AM ; [facility] Continue to follow with home health for dressing changes. - Last Documented On 06/28/2023 10:09AM ; [facility] Okay to change to collagen dressing changes - Last Documented On 06/28/2023 10:09AM ; [facility] Instructions Includes: Instructions from this encounter Education and Decision Aids were provided during visit for: No patient education , regar ding Advanced Directive pt declined Last Documented On 4 9:24AM ; [facility] Medical Equipment - Implanted Devices Includes: Current Devices No Medical Equipment Recorded Medications Includes: Medications discussed during this encounter and other current Medications Past Medications on file Amoxicillin-Pot Clavulanate 875-125 MG Oral Tablet 05/25/2023 - 06/04/2023 Provider: Ramakrishna mancilla MD Diagnosis: twice a day Last Documented On 4 1:37PM By Celena Sandoval RN ; [facility] Medications Administered Includes: Administered Medications from this encounter No Administered Medications Recorded Vital Signs Includes: Vital Signs from this encounter Vital Name 06/28/2023 09:33A Blood Pressure Sitting L 124/86 BP Cuff Size Regular Pulse Rate-Sitting (bpm) 68 Height (in) 71 Weight (lb) 169 Body Mass Index 23.6 Body Surface Area 2 Oxygen Saturation (%) 97 Last Documented: On 06/28/2023 9:37AM ; [facility] Results Includes: Results discussed during this encounter [...] Procedures and Surgical History Includes: Procedures from this encounter Procedures Code Diagnosis Performing Provider Service Location Service Date Body Mass Index, documented 3008F Body mass index [BMI] 23.0-23.9, adult Garrison Kwan [place] [facility] [address] 06/28/2023 Last Documented On 4 2:53PM ; [facility] Most recent systolic blood pressure <130 mmHg 3074F Body mass index [BMI] 23.0-23.9, adult Garrison Kwan [place] [facility] [address] 06/28/2023 Last Documented On 4 2:53PM ; [facility] Most recent diastolic blood pressure 80-89mmHg 3079F Body mass index [BMI] 23.0-23.9, adult Garrison Kwan [place] [facility] [place] [address] 06/28/2023 Last Documented On 4 2:53PM ; [facility] no dizziness upon standing up Last Documented On 4 9:24AM ; [facility] no memory lapses or loss Last Documented On 4 9:24AM ; [facility] no patient education , regarding Advance d Directive pt declined Last Documented On 4 9:24AM ; [facility] no difficulty finding desired words Last Documented On 4 9:24AM ; [facility] patient screened for future fall risk: d ocumentation of no falls in past year 1101F Last Documented On 4 9:24AM ; [facility] standardized depression screening: negative for symptoms 3351F Last Documented On 4 9:24AM ; [facility] screening for adult depression: impressi on and score 0 Last Documented On 4 9:24AM ; [facility] no Pt has surrogate decision maker or advance ca re plan [id number] Last Documented On 4 9:24AM ; [facility] no advanced directive verified in medica l record Last Documented On 4 9:24AM ; [facility] no difficulty understanding speech Last Documented On 4 9:24AM ; [facility] not using tv, radio at high volume Last Documented On 4 9:24AM ; [facility] Surgical History Last Updated History of partial colectomy Dr. Bennett 05/09/23 ~Diagnostic laparoscopy converted to open low anterior resection, umbilical hernia repair 05/25/2023 Last Documented On 4 9:15AM ; [facility] Medical History Includes: Medical History addressed during this encounter Description Last Updated History of diverticulitis of colon 06/27 Last Documented On 4 10:09AM ; [facility] Family History Includes: Family History addressed during this encounter Description Last Updated Fraternal history of brother is alive x2 06/28/2023 Last Documented On 4 10:09AM ; [facility] 2 children 06/28/2023 Last Documented On 4 10:09AM ; [facility] Children 06/28/2023 Last Documented On 4 10:09AM ; [facility] Paternal history of father was 95 06/28/2023 Last Documented On 4 10:09AM ; [facility] Maternal history of mother is alive 05/10 Last Documented On 4 9:15AM ; [facility] Review of Systems Includes: Review of Systems from this encounter All other systems are negative except as stated above. Mental Status Includes: Mental Status from this encounter Description Oriented to time, place, and person No difficulty understanding speech No memory lapses or loss Functional Status Includes: Functional Status from this encounter No Functional Status Recorded Physical Exam Includes: Physical Exam from this encounter Allergies Includes: Active Allergies No Known Allergies Encounters Encounter Provider Location Date Check-In Time Check-Out Time Diagnosis [facility] [address] [facility] 8:58AM 10:06AM Chronic Cutaneous Ulcer Non-pressure Back,Colonic Diverticulos is,Personal History of Colon Polyps Insurance Includes: Active Insurance Policies Plan Name Member ID Group # Subscriber Relationship Effect lanre Dates 1 - AARP Medicare Advantage HMO/POS/[facility] [id number] Tree Lantigua Self 06/27/2023 - Unknown Clinical Notes Includes: Clinical Notes from this encounter * Progress note Date Encounter Last Documented by 06/28/2023 New Patient/Consult Last kayleigh benton on 06/28/2023; 10:09 AM, Garrison Kwan MD; [facility] Chief Complaint New patient/ consult History of Present Illness Tree Lantigua is [...] with his primary doctor back home in [place] and usually gets his yearly physicals and [...] - Use of tobacco assessment performed The Century Cures Act makes medical notes [...]
--- OUTSIDE RECORDS SUMMARY | 2023-11-12 02:15 | XMS_ITS | Encounter Summary ---
Author Organization [facility] [place] [address] Care Team Providers Care Associate Account Director Name Role Phone Oscar Christiana RYAN Primary Care Provider [phone] Reason for Referral * Diagnostic Test (Routine) - Closed Specialty Diagnoses / Procedures Referred By Contac t Referred To Contact Radiology Diagnoses Type A malignant thymoma Procedures CT Chest w Contrast Quentin Carlin MD [facility] [place] [address] [facility] [place] [address] Referral ID Status Reason Start Date Expiration Date V isits Requested Visits Authorized [id number] Closed Specialty Service Requested 10/19/2020 04/21/2022 1 1 Reason for Visit * Diagnostic Test (Routine) - Closed Specialty Diagnoses / Procedures Referred By Contac t Referred To Contact Radiology Diagnoses Type A malignant thymoma Procedures CT Chest w Contrast Quentin Carlin MD [facility] [place] [address] [facility] [place] [address] Referral ID Status Reason Start Date Expiration Date V isits Requested Visits Authorized [id number] Closed Specialty Service Requested 10/19/2020 04/21/2022 1 1 Encounter Details Date Type Department Care Team (Latest Contact Info) Description 03/22/2021 2:01 PM EST - 03/22/2021 11:59 PM EST Hospital [place] [address] Quentin Carlin MD [facility] [place] [address] Type A malignant thymoma Discharge Disposition: Home Social History Tobacco Use Types Packs/Day Years Used Date Smoking Tobacco: Never Smokeless Tobacco: Never Alcohol Use Standard Drinks/Week Comments Yes 2 (1 standard drink = 0.6 oz pur e alcohol) Sex and Gender Information Value Date Recorded Sex Assigned at Not on file Gender Identity Not on file Sexual Orientation Not on file documented as of this encounter Medications at Time of Discharge Medication Sig Dispensed Refills Start Date End Date ibuprofen (Advil;Motrin) 200 mg Tablet Take 3 tablets by mouth every 6 hours. 11/14/2019 03/20/2023 acetaminophen (Tylenol) 500 mg Tablet Take 2 tablets by mouth every 6 hours. 30 tablet 10/26/2019 03/20/2023 senna (Senokot) 8.6 mg Tablet Take 2 tablets by mouth every evening. 60 tablet 10/26/2019 03/20/2023 documented as of this encounter Plan of Treatment Not on file documented as of this encounter Procedures Procedure Name Priority Date/Time Associated Diagnosis Comments CT CHEST W CONTRAST Routine 03/22/2021 2 :46 PM EST Type A malignant thymoma documented in this encounter Results * CT Chest w Contrast (03/22/2021 2:46 PM EST) Anatomical Region Laterality Modality Chest Computed Tomogra phy 03/22/2021 3:04 PM EST Impressions 03/22/2021 3:37 PM EST 1. ??Status post thymectomy. No findings for resection site recurrence. 2. ??Unchanged bilateral pulmonary nodules. No new or enlarging nodules. 3. ??Trace residual bilateral effusions. Thank you for letting us participate in the care of this patient. ??If you are a health care provider and have any questions regarding this report, please contact the number below. ??For patients who have questions please contact the health children's zoo caretaker that requested your imaging first. ? Narrative 03/22/2021 3:37 PM EST EXAMINATION: CT CHEST W CONTRAST CLINICAL HISTORY: Thymoma, monitor, no metastases Patient is S/P mediastinal mass resection for Thymoma, eval for changes and evidence of new disease TECHNIQUE: 3.0 mm thick axial contiguous sections were obtained through the chest via helical acquisition after the intravenous administration of 60 cc of Omnipaque-350. Thin-section reconstructions as well as coronal and sagittal reformatted images were generated. COMPARISON: 10/19/2020. FINDINGS: Pulmonary parenchyma: Suture material in the right lung, as before, with areas of linear scarring. Unchanged bilateral pulmonary nodules along blood vessels, fissures, pleura, and septa, see series 4 images 81, 100, 106, 123, 140, 153, 165, 166, 168, 169, 172, 184, and 206 on the right, and images 119, 135, 151, 152, and 210 on the left, some having an oblong, triangular, or flat morphology, likely intrapulmonary lymph nodes. No new or enlarging nodules seen. Airways: No endobronchial opacities or bronchiectasis. Descending bronchial branch from the medial wall of bronchus intermedius consistent with developmental anatomic variant, so-called cardiac bronchus. Pleura: Trace bilateral residual pleural effusions seen by the posterior costophrenic sulci. Lymph nodes:No thoracic lymphadenopathy. Heart, pericardium, and great vessels: No pericardial effusion or other new finding. Other mediastinal structures: Status post thymectomy. No findings for resection site recurrence. Lower neck: No new findings. Upper abdomen: Bilateral renal cysts, as before. No new findings. Body wall soft tissues: No new findings. Skeletal structures: No new findings. Procedure Note Ava Islas MD - 03/22/2021 EXAMINATION: CT CHEST W CONTRAST CLINICAL HISTORY: Thymoma, monitor, no metastases Patient is S/P mediastinal mass resection for Thymoma, eval for changesand evidence of new disease TECHNIQUE: 3.0 mm thick axial contiguous sections were obtained throughthe chest via helical acquisition after the intravenous administration of 60cc of Omnipaque-350. Thin-section reconstructions as well as coronal andsagittal reformatted images were generated. COMPARISON: 10/19/2020. FINDINGS: Pulmonary parenchyma: Suture material in the right lung, as before, withareas of linear scarring. Unchanged bilateral pulmonary nodules along bloodvessels, fissures, pleura, and septa, see series 4 images 81, 100, 106, 123, 140,153, 165, 166, 168, 169, 172, 184, and 206 on the right, and images 119, 135,151, 152, and 210 on the left, some having an oblong, triangular, or flatmorphology, likely intrapulmonary lymph nodes. No new or enlarging nodules seen. Airways: No endobronchial opacities or bronchiectasis. Descending bronchial branch from the medial wall of bronchus intermedius consistent with developmental anatomic variant, so-called cardiacbronchus. Pleura: Trace bilateral residual pleural effusions seen by the posterior costophrenic sulci. Lymph nodes:No thoracic lymphadenopathy. Heart, pericardium, and great vessels: No pericardial effusion or othernew finding. Other mediastinal structures: Status post thymectomy. No findings forresection site recurrence. Lower neck: No new findings. Upper abdomen: Bilateral renal cysts, as before. No new findings. Body wall soft tissues: No new findings. Skeletal structures: No new findings. IMPRESSION 1. Status post thymectomy. No findings for resection site recurrence. 2. Unchanged bilateral pulmonary nodules. No new or enlarging nodules. 3. Trace residual bilateral effusions. Thank you for letting us participate in the care of this patient. If youare a health care provider and have any questions regarding this report,please contact the number below. For patients who have questions please contactthe health children's zoo caretaker that requested your imaging first. Quentin Carlin MD IMG CT ORDERABLES documented in this encounter Visit Diagnoses Diagnosis Type A malignant thymoma documented in this encounter Administered Medications Inactive Administered Medications - up to 3 most recent administrations Medication Order MAR Action Action Date Dose Rate Site iohexoL (Omnipaque) (350 mg/mL) solution 0-200 mL 0-200 mL, Intravenous, ONCE PRN, 1 dose, Starting on Sun03/22/21 at 1446, Until Sun03/22/21 at 1446, Per Protocol, Warning Vesicant/Irritant Medication , Radiology Contrast, Routine Given 03/22/2021 2:46 PM EST 60 mLs documented in this encounter Care Teams Associate Account Director Relationship Specialty Start Date End Date Christiana Moore APRN [address] [place] [address] PCP - General Family Medicine 09/26/19 documented as of this encounter
--- OUTSIDE RECORDS SUMMARY | 2023-11-12 02:15 | XMS_ITS | Encounter Summary ---
Author Organization [facility] [place] [address] Care Team Providers Care Side Stapler Name Role Phone Christiana Moore APRN Primary Care Provider [phone] Reason for Referral * Diagnostic Test (Routine) - Closed Specialty Diagnoses / Procedures Referred By Contac t Referred To Contact Radiology Diagnoses Type A malignant thymoma Procedures CT Chest wo Contrast (Generic) Quentin Carlin MD [facility] [place] [address] [facility] [place] [address] Referral ID Status Reason Start Date Expiration Date V isits Requested Visits Authorized [id number] Closed Specialty Service Requested 03/24/2021 09/21/2022 1 1 Reason for Visit * Diagnostic Test (Routine) - Closed Specialty Diagnoses / Procedures Referred By Contac t Referred To Contact Radiology Diagnoses Type A malignant thymoma Procedures CT Chest wo Contrast (Generic) Quentin Carlin MD [facility] [place] [address] [facility] [place] [address] Referral ID Status Reason Start Date Expiration Date V isits Requested Visits Authorized [id number] Closed Specialty Service Requested 03/24/2021 09/21/2022 1 1 Encounter Details Date Type Department Care Team (Latest Contact Info) Description 10/17/2022 9:00 AM EDT - 10/17/2022 11:59 PM EDT Hospital Encounter CT Scan at [facility] [place] [address] Quentin Cralin MD [facility] [place] [address] Type A malignant thymoma Discharge Disposition: Home [...] Priority Date/Time Associated Diagnosis Comments CT CHEST WO CONTRAST (GENERIC) Routine 10/17/2022 9:07 AM EDT Type A malignant thymoma documented in this encounter Results * CT Chest wo Contrast (Generic) (10/17/2022 9:07 AM EDT) Anatomical Region Laterality Modality Chest Computed Tomogra phy Impressions 10/17/2022 12:27 PM EDT Stable appearance of the chest status post thymectomy with no evidence for recurrent or metastatic disease. Stable lung nodules since 03/2021. I have personally reviewed the image(s) and the resident's interpretation and agree with the findings, Todd Pichardo MD at 10/17/2022 12:27 PM Thank you for letting us participate in the care of this patient. ??If you are a health care provider and have any questions regarding this report, please contact the number below. ??For patients who have questions please contact the health child care giver that requested your imaging first. ? Narrative 10/17/2022 12:27 PM EDT EXAMINATION: CT CHEST WO CONTRAST (GENERIC) CLINICAL HISTORY: Thymoma, monitor, R1 or R2 resection, post treatment hx of Anterior mediastinal mass excision for Type A Thymoma stage I and Right Upper Lobe, Right Middle Lobe and Right Lower Lobe resections on 10/24/2019, please eval for changes, evidence of disease/recurrence TECHNIQUE: Helical CT of the chest without intravenous contrast administration. Thin-section reconstructions as well as coronal and sagittal reformatted images were generated. COMPARISON: Multiple CT chest, most recently 10/18/2021 FINDINGS: Pulmonary parenchyma: Postsurgical changes from prior wedge resections of the right upper, middle, and lower lobes. Numerous stable lung nodules, for example a 7 mm nodule in the left lower lobe (series 302 image 341), unchanged since 11/2019. No new or enlarging lung nodule. Airways: No endobronchial nodule. Cardiac bronchus incidentally noted, normal variant. Pleura: Trace right pleural effusion, unchanged. Lymph nodes: No lymphadenopathy. Heart and vasculature: Normal size of the heart. No significant pericardial effusion. Normal caliber of the thoracic aorta. Mild coronary artery and aortic calcifications. Other mediastinal structures: Postsurgical changes from prior thymectomy without evidence of recurrence. Upper abdomen: Unchanged bilateral renal cysts. Skeletal structures: No suspicious lytic or sclerotic osseous lesions. Procedure Note Todd Pichardo MD - 10/17/2022 EXAMINATION: CT CHEST WO CONTRAST (GENERIC) CLINICAL HISTORY: Thymoma, monitor, R1 or R2 resection, post treatment hx of Anterior mediastinal mass excision for Type A Thymoma stage I andRight Upper Lobe, Right Middle Lobe and Right Lower Lobe resections on10/24/2019, please eval for changes, evidence of disease/recurrence TECHNIQUE: Helical CT of the chest without intravenous contrastadministration. Thin-section reconstructions as well as coronal and sagittal reformattedimages were generated. COMPARISON: Multiple CT chest, most recently 10/18/2021 FINDINGS: Pulmonary parenchyma: Postsurgical changes from prior wedge resections ofthe right upper, middle, and lower lobes. Numerous stable lung nodules, forexample a 7 mm nodule in the left lower lobe (series 302 image 341), unchangedsince 11/2019. No new or enlarging lung nodule. Airways: No endobronchial nodule. Cardiac bronchus incidentally noted,normal variant. Pleura: Trace right pleural effusion, unchanged. Lymph nodes: No lymphadenopathy. Heart and vasculature: Normal size of the heart. No significantpericardial effusion. Normal caliber of the thoracic aorta. Mild coronary artery andaortic calcifications. Other mediastinal structures: Postsurgical changes from prior thymectomywithout evidence of recurrence. Upper abdomen: Unchanged bilateral renal cysts. Skeletal structures: No suspicious lytic or sclerotic osseous lesions. IMPRESSION Stable appearance of the chest status post thymectomy with no evidencefor recurrent or metastatic disease. Stable lung nodules since 03/2021. I have personally reviewed the image(s) and the resident's interpretationand agree with the findings, Todd Pichardo MD at 10/17/2022 12:27 PM Thank you for letting us participate in the care of this patient. If youare a health care provider and have any questions regarding this report,please contact the number below. For patients who have questions please contactthe health child care giver that requested your imaging first. Quentin Carlin MD IMG CT ORDERABLES documented in this encounter Visit Diagnoses Diagnosis Type A malignant thymoma documented in this encounter Care Teams Side Stapler Relationship Specialty Start Date End Date Christiana Moore APRN [address] [place] [id number] PCP - General Family Medicine 09/26/19 documented as of this encounter
--- OUTSIDE RECORDS SUMMARY | 2023-11-12 02:15 | XMS_ITS | Encounter Summary ---
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 Name Role Phone Michael Moorey RYAN Primary Care Provider [phone] Reason for Referral * Home Health Care (Routine) - Closed Specialty Diagnoses / Procedures Referred By Contac t Referred To Contact Diagnoses Chest wall abscess Piyush Hobbs MD [facility] [address] [facility] & [address] [place] [address] Referral ID Status Reason Start Date Expiration Date V isits Requested Visits Authorized [id number] Closed Consult, Test & Treat 03/20/2023 09/16/2023 999 999 Reason for Visit * Reason Comments Wound Check * Auth/Cert Specialty Diagnoses / Procedures Referred By Contac t Referred To Contact Diagnoses Complicated wound infection Procedures ER IPI Jose Alvarez MD [facility] [place] [address] [facility] Referral ID Status Reason Start Date Expiration Date Visits Re quested Visits Authorized [id number] 1 1 Encounter Details Date Type Department Care Team (Latest Contact Info) Description 03/17/2023 10:11 AM EST - 03/20/2023 12:20 PM EST Hospital Encounter Surgical Unit Level 4 [place] [address] Jose Alvarez MD [facility] [place] [address] Complicated wound infection (Primary Dx); Chest wall abscess Discharge Disposition: Home with VNA Social History Tobacco Use Types Packs/Day Years [...] Sign Reading Time Taken Comments Blood Pressure 126/84 03/20/2023 8:14 AM EST Pulse 57 03/18/2023 9:00 AM EST Temperature 36.3 ??C (97.3 ??F) 03/20/2023 8:14 AM ES T Respiratory Rate 18 03/20/2023 8:14 AM EST Oxygen Saturation 98% 03/20/2023 8:14 AM EST Inhaled Oxygen Concentration - - Weight 79.4 kg (175 lb) 03/17/2023 9:56 AM EST Height - - Body Mass Index 24.45 03/14/2023 11:20 AM EST documented in this encounter Discharge Summaries * Monique Del Angel MD - 03/20/2023 11:35 AM EST Department of Thoracic Surgery - Discharge Summary Patient Name: Tree Lantigua Patient Age: 67 y.o. Birthdate: 1955 Admit date: 03/17/2023 Discharge date: 03/20/23 Attending Physician: Jose Alvarez MD Discharge Diagnoses (Hospital Problems) and Secondary Diagnoses (Chronic Problems): Active Hospital Problems Diagnosis Complicated wound infection Resolved Hospital Problems No resolved problems to display. Active Non-Hospital Problems Diagnosis Open wound of right chest wall with complication Chest wall abscess Type A malignant thymoma Operations/Major Procedures: 03/17/2023: Bedside I&D of right posterior thoracotomy incision site 03/18/23: I&D and washout of right posterior thoracotomy incision sitein OR Case Date: 03/18/2023 Surgeon: Surgeon(s) and Role: * Jose Alvarez MD - Primary * Andriy Davison MD - Resident - Assisting Findings: prior I&D abscess cavity opened with 6.5x3cm elliptical incision, depth measuring 2cmand with cavity tracking to superior aspect inferior to muscle ~5cm. Irrigated and excised portion sent for specimen/culture. Cavity packed with moistened kerlix gauze wet to dry with 4x4 gauze and medipore tape dressing History of Presentation: Tree Lantigua is a 67 y.o. male known to our service for prior R Thoracotomy, Resection of Anterior Mediastinal Mass, and Wedge Resection x5 of the R Lung for a Stage I Thymoma on 10/24/2019. His post-op course was notable of a surgical site infection requiring wide drainage, debridement, and woundVAC placement to assist with closure and healing. Noted that his cultures grew S.aureus at this time. The patient requested a follow-up visit on 03/14/23 for concerns around his prior thoracotomy incision. He has had increasing pain around the site and feels a fluctuance. The area was aspirated in clinic, and fluid was sent for micro - he left in stable condition with a course of PO Bactrim DS BID x10 days. Since being home, he has had ongoing increasing pain and discomfort at the area, has had increasing erythema, and has affected his sleep by not being able to lay on it. He denies fevers/chills or anything else out of his usual state of health. Hospital Course: Tree Lantigua was admitted to [facility] on 03/17/2023 via the ED where he underwent a bedside I&D of the right posterior thoracotomy incision site. Tj pus and some blood were immediately expressed. Cultures were taken. A couple loculations were broken with digital probing. The fluid collection did not appear to be invading the muscle or chest wall, but did probe a few centimeters in each direction. The abscess contents was fully expressed. Iodoform packing was placed within the cavity, covered by 4x4 gauze and medipore tape. He was initiated on vancomycin and zosyn. He was brought to the operating room on 03/18/[address] Jose Alvarez performed surgery as described above. He tolerated the procedure well and was brought to the Post Anesthesia Care Unit forrecovery. After a brief period of time he was transferred to the floor for continued rehabilitation. He underwent BID dressing changes with WTD dressing with Kerlix. 2 Days Post-Op he had met all criteria for discharge to home. Pain was controlled on oral medications. He had walked 5 minutes. He was tolerating a regular diet. He will be having daily VNA services for wound care. Per patient request, his was taught by team, as well, how to change his dressing. He will be discharged on Bactrim for a 14 day course. Vital signs: Vital Signs Temp: 36.3 ??C (97.3 ??F) Temp src: Oral Heart Rate from SpO2: 78 bpm Heart Rate: 57 Heart Rate Source: Monitor Resp: 18 BP: 126/84 MAP (NBP): 98 mmHg BP Method: Automatic Patient Position: Sitting SpO2: 98 % O2 Flow Rate (L/min): 6 L/min O2 Device: None (Room air) Admission Wt: 79.38 kg Last Wt: Wt Readings from Last 3 Encounters: 03/17/23 79.4 kg (175 lb) 03/14/23 79.5 kg (175 lb 4.3 oz) 10/17/22 78.1 kg (172 lb 2.9 oz) Pertinent physical exam findings prior to discharge: Gen: NAD, pleasant, sitting comfortably in bed HEENT: normocephalic, atraumatic Neck: supple, trachea midline Card: RRR Pulm: non-labored breathing on RA; right posterior back with well-healed thoracotomy incision; superior 6cm linear I&D incision without any remaining purulence, covered with WTD dsg, with no strikethrough/drainage Abd: soft, NT, BS+ Ext: warm, dry, no edema Neuro: A&Ox3, CN II-XII grossly intact Important Lab Data: Lab Results Component Value Date WBC 7.5 03/17/2023 HGB 13.9 03/17/2023 HCT 46.0 03/17/2023 MCV 67.1 (L) 03/17/2023 Lab Results Component Value Date NA 136 03/17/2023 K 4.3 03/17/2023 CL 100 03/17/2023 CO2 22 03/17/2023 Lab Results Component Value Date CREATININE 0.99 03/17/2023 Lab Results Component Value Date BUN 12 03/17/2023 No results found for: PREALBUMIN No results for input(s): PT, PTT, INR in the last 168 hours. Studies: None Pending Studies and Lab Data: No current labs Discharge Conditions/Prognosis: Stable Discharge to: Home Discharge Medications: Your Medications Continued medications with new dosing Dose Details acetaminophen 325 mg tablet Commonly known as: Tylenol Take 3 tablets by mouth every 6 hours. What changed: medication strength how much to take 975 mg Refills: 0 ibuprofen 600 mg tablet Commonly known as: Advil Take 1 tablet by mouth every 6 hours as needed for Pain. What changed: medication strength when to take this reasons to take this 600 mg Refills: 0 Continued medications, unchanged Dose Details senna 8.6 mg tablet Commonly known as: Senokot Take 2 tablets by mouth every evening. 2 tablet Refills: 0 sulfamethoxazole-trimethoprim DS 800-160 mg tablet Commonly known as: Bactrim DS Take 1 tablet by mouth 2 times daily for 14 days. 1 tablet Quantity: 28 tablet Refills: 0 Updated Allergies/ADRs: Allergies Allergen Reactions Wasp Venom Instructions Given to Patient at Discharge: Patient Instructions THORACIC SURGERY Call if you have a fever of greater than 101 degrees, shaking chills, pain not controlled by the medications you were prescribed, develop redness or drainage from your incision site(s), or if you have questions. During normal business hours, Sunday - Sunday 8:00 a.m.-5:00 p.m., please call to speakto a nurse in the Thoracic Clinic at [phone]. For emergencies after hours, on weekends or holidays please call: [phone] and ask to speak to the Thoracic Surgeon prevention specialist. Exercise & Activity Level: As you recover from surgery exercise at least 30 minutes a day. Thiscan be broken up into several times a day to achieve this goal at first, but you will be able to work up to doing all 30 minutes at once. Walking, treadmill, stationary bike, elliptical machine or other stationary exercise equipment is appropriate. Take your incentive spirometer home with you. You should use this every hour while awake, 10 times each. This helps you to exercise your respiratory muscles and to breathe deeply. Taking purposeful deep breaths can be just as effective. Do not lift more than 10 pounds for 6-8 weeks (nothing heavier than a gallon of milk) unless otherwise instructed by Thoracic Surgery. Don???t exhaust yourself. Rest between activities as you recoverfrom your procedure. Diet: You should follow a regular diet. Smoking: If you are a smoker, please avoid smoking. If you are a smoker who needs help quitting, please call the thoracic surgery clinic at [phone]. Driving: No driving for 1 week or while taking narcotic pain medication. New Medications: you will be prescribed an antibiotic on discharge- Bactrim 800mg, you will be taking it twice daily for a total of 14 days Home Medications: will restart all your home medications as prescribed prior to your hospital admission Shower/Bath: You may shower daily starting 2 days after chest tube removal. No soaking in a bath tub and no swimming until your follow-up appointment. Incision care: Wash your incision(s) daily with soap and rinse well, pat dry. Assess for any signs of infection such as increased redness, pain, warmth or drainage. If you had a chest tube, you may remove the dressing over the chest tube site 2 days after the chest tube was removed and leave it open to the air if it is not draining. Otherwise change the dressingtwice a day or as needed. The dressing may remain off once there is no drainage. Drainage from the incision sites: Clear yellow drainage from the incision sites. However, if this becomes larger in volume, requiring5 or more dressing changes in 1-2 hours, you should call the thoracic surgery office to speak with one of the nurses. If you notice worsening pain at the incision sites, redness, swelling, or white/milky/cloudy drainage, please call the office immediately. Pain: Pain after surgery is normal. The goal is for you to be able to tolerate pain so you can complete your daily activities. You may notice a burning or numbness on the side of your incision that may include your breast area. This should improve over time but there may be areas that remain numb. You may use a heating pad set on low or medium over your incision to help relax the muscles in the area and decrease discomfort. Please take your medication as prescribed. If you are not having good pain control, please call and speak to the nurse in the Thoracic Surgery Clinic or the Thoracic Surgeon prevention specialist after hours. Please take over the counter Tylenol 1000mg every 6 hours and Ibuprofen 600mg every 6 hours, together as instructed, for baseline pain coverage. DO NOT exceed the maximum dosing as listed on the labels. Sleep: Try to establish normal sleep patterns. Long naps during the day may make it hard for youto sleep at night. Use the pain medication at bedtime for the first week at home if needed. Bowel Movements: After surgery, your bowel movements may not be regular for you, but you should be able to get back to your daily routine quickly. Please make sure to take the stool softeners or mildlaxatives as prescribed to get back to your normal routine. If you do not have a bowel movement formore than 2 days or begin to experience moderate to severe abdominal pain, please call the office. Follow up appointments: You will return to clinic to see Dr. Alvarez in 2 weeks. A letter will be mailed to you confirming your appointment information, and you will receive a reminder phone call fromthe thoracic surgery office. Future Appointments Date Time Provider Department Center 03/20/2023 9:30 AM Jose Alvarez MD [facility] THOR 3K [facility] General Instructions None Future Appointments and Orders Future Orders Complete By Expires Referral to Home Health [REF34 Custom] As directed Process Instructions: If no progress note charted, please enter Clinical details in comments. Scheduling Instructions: Comments: Please evaluate Tree Lantigua for admission to Home Health. [address] [facility] [address] (home) Date of : 1955 Inpatient DOCUMENTATION FOR VNA SERVICES (INCLUDING THOSE PATIENTS WITH MEDICARE COVERAGE REQUIRING HOME VNA SERVICES AND/OR HOSPICE SERVICES) PATIENT'S LOCATION: [address] [facility] [id number] (home) Cell: Telephone Information: In discussion with the attending physician, it is certified that this patient is under their care and that they, or a Nurse Practitioner, Clinical Nurse specialist or Physician Day Habilitation Specialist who is working directly with them, had a face to face encounter that meets the physician face to face encounter requirements with this patient on target organ damage The encounter with the patient was in whole, or in part, for the following medical condition, whichis the primary reason for home health care services: Right thoracotomy incision wound site infection (s/p Incision and drainage) In discussion with the provider, it is certified that, based on their findings, the following services are medically necessary for home health services. To provide the following care/treatments with the clinical findings supporting the need for services as follows: HOME CARE ORDERS: RN ORDERS: Assess vital signs, cardiopulmonary status, nutrition, hydration, elimination -Additional Orders: Assess wound or incision (please add detailed wound care instructions here: wound care- physical therapy) Wound care: wet to dry with Kerlix and saline and medipore HOME HEALTH CARE AGENCY: [facility]. [address] [place] [id number] START OF CARE: within 24-48 hours of discharge In discussion with the attending physician, it is certified that the clinical findings support thatthis patient is homebound because absences from home require considerable and taxing effort due to:Medically contraindicated due to infected, draining or complicated wound. Please note that any additional orders needs or changes will need to be obtained from this patient's PCP: Christiana Moore APRN [facility] [phone] . All A agencies which cover the area of patient's residence have been reviewed, either verbally carmel writing, and patient/family have chosen the home health care agency noted. Questions: Disciplines Requested: Nursing Physical Therapy Provider Contact Information: Primary Care Provider: Christiana Moore APRN [phone] Discharge References/Attachments: Discharge References/Attachments None For questions regarding this document or issues relating to this hospitalization on the Thoracic Surgery Service, please contact Dr. Alvarez's office at . Signed: Monique Del Angel MD 03/20/2023 Thoracic Surgery [facility] PCP: Christiana Moore APRN Referring: Jose Alvarez MD [facility] [place] [address] documented in this encounter Discharge Instructions * Patient Instructions* Monique Del Angel MD - 03/20/2023 7:44 AM EST THORACIC SURGERY Call if you have a fever of greater than 101 degrees, shaking chills, pain not controlled by the medications you were prescribed, develop redness or drainage from your incision site(s), or if you have questions. During normal business hours, Sunday - Sunday 8:00 a.m.-5:00 p.m., please call to speakto a nurse in the Thoracic Clinic at [phone]. For emergencies after hours, on weekends or holidays please call: [phone] and ask to speak to the Thoracic Surgeon prevention specialist. Exercise & Activity Level: As you recover from surgery exercise at least 30 minutes a day. Thiscan be broken up into several times a day to achieve this goal at first, but you will be able to work up to doing all 30 minutes at once. Walking, treadmill, stationary bike, elliptical machine or other stationary exercise equipment is appropriate. Take your incentive spirometer home with you. You should use this every hour while awake, 10 times each. This helps you to exercise your respiratory muscles and to breathe deeply. Taking purposeful deep breaths can be just as effective. Do not lift more than 10 pounds for 6-8 weeks (nothing heavier than a gallon of milk) unless otherwise instructed by Thoracic Surgery. Don???t exhaust yourself. Rest between activities as you recoverfrom your procedure. Diet: You should follow a regular diet. Smoking: If you are a smoker, please avoid smoking. If you are a smoker who needs help quitting, please call the thoracic surgery clinic at [phone]. Driving: No driving for 1 week or while taking narcotic pain medication. New Medications: you will be prescribed an antibiotic on discharge- Bactrim 800mg, you will be taking it twice daily for a total of 14 days Home Medications: will restart all your home medications as prescribed prior to your hospital admission Shower/Bath: You may shower daily starting 2 days after chest tube removal. No soaking in a bath tub and no swimming until your follow-up appointment. Incision care: Wash your incision(s) daily with soap and rinse well, pat dry. Assess for any signs of infection such as increased redness, pain, warmth or drainage. If you had a chest tube, you may remove the dressing over the chest tube site 2 days after the chest tube was removed and leave it open to the air if it is not draining. Otherwise change the dressingtwice a day or as needed. The dressing may remain off once there is no drainage. Drainage from the incision sites: Clear yellow drainage from the incision sites. However, if this becomes larger in volume, requiring5 or more dressing changes in 1-2 hours, you should call the thoracic surgery office to speak with one of the nurses. If you notice worsening pain at the incision sites, redness, swelling, or white/milky/cloudy drainage, please call the office immediately. Pain: Pain after surgery is normal. The goal is for you to be able to tolerate pain so you can complete your daily activities. You may notice a burning or numbness on the side of your incision that may include your breast area. This should improve over time but there may be areas that remain numb. You may use a heating pad set on low or medium over your incision to help relax the muscles in the area and decrease discomfort. Please take your medication as prescribed. If you are not having good pain control, please call and speak to the nurse in the Thoracic Surgery Clinic or the Thoracic Surgeon prevention specialist after hours. Please take over the counter Tylenol 1000mg every 6 hours and Ibuprofen 600mg every 6 hours, together as instructed, for baseline pain coverage. DO NOT exceed the maximum dosing as listed on the labels. Sleep: Try to establish normal sleep patterns. Long naps during the day may make it hard for youto sleep at night. Use the pain medication at bedtime for the first week at home if needed. Bowel Movements: After surgery, your bowel movements may not be regular for you, but you should be able to get back to your daily routine quickly. Please make sure to take the stool softeners or mildlaxatives as prescribed to get back to your normal routine. If you do not have a bowel movement formore than 2 days or begin to experience moderate to severe abdominal pain, please call the office. Follow up appointments: You will return to clinic to see Dr. Alvarez in 2 weeks. A letter will be mailed to you confirming your appointment information, and you will receive a reminder phone call fromthe thoracic surgery office. Future Appointments Date Time Provider Department Center 03/20/2023 9:30 AM Jose Alvarez MD [address] documented in this encounter Medications at Time of Discharge Medication Sig Dispensed Refills Start Date End Date acetaminophen (Tylenol) 325 mg tablet Take 3 tablets by mouth every 6 hours. 03/20/2023 ibuprofen (Advil) 600 mg tablet Take 1 tablet by mouth every 6 hours as needed for Pain. 03/20/2023 senna (Senokot) 8.6 mg tablet Take 2 tablets by mouth every evening. 03/20/2023 sulfamethoxazole-trimet hoprim DS (Bactrim DS) 800-160 mg tablet Take 1 tablet by mouth 2 times daily for 14 days. 28 tablet 03/20/2023 04/03/2023 documented as of this encounter Progress Notes * Pily Greenwood RN - 03/20/2023 12:18 PM EST After Visit Summary and discharge teaching reviewed with patient and spouse per MD order. Patient verbalizes understanding and had no further questions or concerns. IV access has been discontinued and removed per MD order. Patient declines numbness, tingling, chest pain, nausea/vomiting, and SOB. All personal belongings have been returned to the patient/family upon their departure from the unit. Patient has been discharged home, brought to discharge lounge via staff member. Discharge summary faxed to A. Safety maintained. * Dimitry Rodriguez MD - 03/19/2023 7:49 AM EST Images from the original note were not included. [facility] Department of Thoracic Surgery Progress Note Patient Name: Tree Lantigua Patient : 1955 Patient Patient Location: [address] [place] [address] Attending Surgeon: JOSE ALVAREZ Reason for Visit: Prior Right thoracotomy incision discomfort and swelling ID: Tree Lantigua is a 67 y.o. male known to our service for distant R Thoracotomy with Mediastinal Mass Resection of a Thymoma in 2019, post-op course complicated by an SSI requiring I&D and NPWT for assisted healing and closure. Now with a new abscess to the superior aspect of his prior incisionwith GPC growing on needle aspiration from 03/14, S/P I&D at bedside on 03/17/2023, and further earl rgical I&D on 03/18/[address] Alvarez. 24 Hour Events / Subjective: NAEO, doing well since OR yesterday Pain controlled Tolerating dressing changes Vitals: Temp: [36.4 ??C (97.5 ??F)-36.7 ??C (98.1 ??F)] Heart Rate: [57-83] Resp: [14-18] BP: (101-162)/(68-91) SpO2: [97 %-99 %] Heart Rate from SpO2: [57 bpm-78 bpm] Wt & BMI By Encounter Date Flowsheet Row ED to Hosp-Admission (Current) from 03/17/2023 in Surgical Unit Level 4 Wing D at [facility] Office Visit from 03/14/2023 in Thoracic Surgery at [facility] Weight 79.4 kg (175 lb) 1 03/17/2023 0956 79.5 kg (175 lb 4.3 oz) 1 03/14/2023 1120 BMI -- 24.48 1 03/14/2023 1120 Physical Exam: Gen: NAD, pleasant, sitting comfortably in bed HEENT: normocephalic, atraumatic, EOMI, sclerae anicteric Neck: supple, trachea midline Card: RRR, no M/R/G appreciated Pulm: CTAB, no wheeze/ronchi/rales appreciated, non-labored breathing on RA; right posterior back with well-healed thoracotomy incision; superior 6cm linear I&D incision without any remaining purulence Abd: soft, NT, BS+ Ext: warm, dry, no edema Neuro: A&Ox3, CN II-XII grossly intact, nonfocal, conversant I/O: I/O last 3 completed shifts: In: 1285 [P.O.:935; I.V.:200; IV Piggyback:150] Out: 1005 [Urine:1000; Blood:5] Labs: Recent Results (from the past 72 hour(s)) Basic Metabolic Panel (non-fasting) Result Value Ref Range Glucose Lvl 93 65 - 199 mg/dL BUN 12 10 - 20 mg/dL Creatinine 0.99 0.80 - 1.50 mg/dL Sodium 136 135 - 145 mmol/L Potassium 4.3 3.5 - 5.0 mmol/L Chloride 100 98 - 107 mmol/L CO2 22 22 - 31 mmol/L Anion Gap 14 5 - 15 mmol/L Calcium 9.5 8.5 - 10.5 mg/dL Estimated GFR 83 >=60 mL/min/1.73 m?? CRP, acute inflammation Result Value Ref Range CRP 112.8 (H) <=4.9 mg/L Sedimentation rate Result Value Ref Range Sed Rate >119 (H) 2 - 37 mm/hr Hemogram Result Value Ref Range WBC 7.5 4.0 - 9.5 x10(3)/mcL RBC 6.86 (H) 4.58 - 5.54 x10(6)/mcL Hemoglobin 13.9 13.7 - 16.5 g/dL Hematocrit 46.0 40.5 - 48.5 % MCV 67.1 (L) 82.9 - 93.1 fL MCH 20.3 (L) 27.5 - 32.1 pg MCHC 30.2 (L) 32.0 - 35.7 g/dL Platelets 302 145 - 357 x10(3)/mcL RDWSD 37.2 36.0 - 45.0 fL RDWCV 17.3 (H) 11.4 - 13.8 % MPV 9.8 7.6 - 12.9 fL nRBC % Auto 0.0 % nRBC Abs Auto 0.000 0.000 - 0.000 x10(3)/mcL Differential, Automated Result Value Ref Range Neutrophils % 74.9 % Neutr Abs (ANC) 5.59 1.70 - 6.10 x10(3)/mcL Lymphocytes % 15.7 % Lymphocytes Abs 1.2 0.9 - 3.2 x10(3)/mcL Monocytes % 7.9 % Monocyte Abs 0.6 0.3 - 0.9 x10(3)/mcL Eosinophils % 0.3 % Eosinophils Abs 0.0 0.0 - 0.4 x10(3)/mcL Basophils % 0.8 % Basophils Abs 0.1 0.0 - 0.1 x10(3)/mcL Immature Gran % 0.40 % Mayra Gran Abs 0.03 0.00 - 0.04 x10(3)/mcL L-Lactate2 Whole Blood Result Value Ref Range Lactate WB 1.5 0.5 - 2.2 mmol/L Body Fluid Culture, Aerobic Specimen: Fluid Abscess Result Value Ref Range Body Fluid Culture Many Staphylococcus aureus (A) Gram Stain (A) Many Neutrophils seen Many Gram Positive Cocci seen Organism Staphylococcus aureus (A) Organism Gram Positive Cocci (A) Diagnostics: SCAN DOC: TELEMETRY STRIPS Ordered by an unspecified provider. Micro: Microbiology Results (last 7 days) Procedure Component Value - Date/Time Body Fluid Culture, Aerobic & Anaerobic Fluid [[id number]] (Abnormal) Collected: 03/17/231144 Lab Status: Preliminary result Specimen: Fluid Updated: 03/18/23939 Body Fluid Culture, Aerobic [[id number]] (Abnormal) Collected: 03/17/231144 Lab Status: Preliminary result Specimen: Fluid Updated: 03/18/23939 Body Fluid Culture Many Staphylococcus aureus Gram Stain -- Many Neutrophils seen Many Gram Positive Cocci seen Organism Staphylococcus aureus Gram Positive Cocci ASSESSMENT: Tree Lantigua is a 67 y.o. male known to our service for distant R Thoracotomy with Mediastinal Mass Resection of a Thymoma in 2019, post-op course complicated by an SSI requiring I&D and NPWT for assisted healing and closure. Now with a new abscess to the superior aspect of his prior incisionwith GPC growing on needle aspiration from 03/14, S/P I&D at bedside on 03/17/2023, and further earl rgical I&D on 03/18/[address] Alvarez. PLAN: Changing IV Zosyn to Unasyn, will soon transition to PO regimen Awaiting final sensitivities on S.aureus micro BID WTD with Kerlix Will need VNA for assistance, coordinate with CM Neuro: tylenol, oxycodone 5 mg Q6H PRN Card: HDS, monitor vitals Pulm: stable on RA, pulmonary toilet - IS/cough/deep breathe FENGI: Regular diet, no IVF, LONI Renal/: voiding spontaneously, monitor UOP Heme: SQH TID ID: Changing IV Zosyn to Unasyn, will soon transition to PO regimen; Awaiting final sensitivities on S.aureus micro Endo: LONI Other: Needs VNA for home wound care Dispo: Floor status, L4WD, home soon Dimitry Rodriguez MD 03/19/2023 Thoracic Surgery Service Pager [phone] * Leta Kincaid MD - 03/18/2023 12:54 PM EST Post-Operative Check Tree Lantigua is a 67 y.o. male s/p Procedure(s): INCISION & DRAINAGE HEMATOMA, SEROMA OR FLD. COLLECTION, TRUNK (WRVU 1.58) S: Patient doing well physically, though mentions this hospitalization is mentally wearing on him. No nausea/vomiting, chest pain, SOB, pain well controlled. O: Temp: [36.4 ??C (97.5 ??F)-36.7 ??C (98.1 ??F)] Heart Rate: [57-83] Resp: [14-18] BP: (101-127)/(68-81) SpO2: [96 %-99 %] Heart Rate from SpO2: [57 bpm-78 bpm] I/O last 3 completed shifts: In: 1625 [P.O.:75; I.V.:1000; IV Piggyback:550] Out: 300 [Urine:300] I/O this shift: In: 320 [P.O.:120; I.V.:200] Out: 5 [Blood:5] No results found for this or any previous visit (from the past 24 hour(s)). Physical Exam Gen: A0x3, NAD, resting comfortably CVS: RRR, no murmurs/rubs/gallops Resp: CTAB, breathing comfortably on RA Abd: soft, appropriately tender, nondistended Ext: SCDs in place, WWP AP Tree Lantigua is a 67 y.o. male s/p I&D of hematoma, currently in stable condition and recovering well - Regular diet - Pain well controlled - Hemodynamically stable, UOP adequate - Continue post operative plan per primary team Leta Kincaid MD 03/18/2023 * Chaparrita Davidson RN - 03/18/2023 8:48 AM EST 0836: Tree Lantigua arrived from the OR in a bed to PACU 14. Pt was attached to monitors, alarms setappropriately & audible. No apparent airway distress, lungs are clear. NSR on monitoring engineer. 0915: Updates given to [facility] RN July. Phase 2 criteria met. * Todd Alvarez PA - 03/18/2023 7:41 AM EST Images from the original note were not included. [facility] Department of Thoracic Surgery Progress Note Patient Name: Tree Lantigua Patient : 1955 Patient Patient Location: [address] [place] [address]- Attending Surgeon: JOSE ALVAREZ Reason for Visit: Prior Right thoracotomy incision discomfort and swelling ID / HPI: Tree Lantigua is a 67 y.o. male known to our service for prior R Thoracotomy, Resection of Anterior Mediastinal Mass, and Wedge Resection x5 of the R Lung for a Stage I Thymoma on 10/24/2019. His post-op course was notable of a surgical site infection requiring wide drainage, debridement, and woundVAC placement to assist with closure and healing. Noted that his cultures grew S.aureus at this time. The patient requested a follow-up visit on 03/14/23 for concerns around his prior thoracotomy incision. He has had increasing pain around the site and feels a fluctuance. The area was aspirated in clinic, and fluid was sent for micro - he left in stable condition with a course of PO Bactrim DS BID x10 days. Since being home, he has had ongoing increasing pain and discomfort at the area, has had increasing erythema, and has affected his sleep by not being able to lay on it. He denies fevers/chills or anything else out of his usual state of health. 24 Hour Events / Subjective: - Patient admitted and I&D performed at bedside, JASON o/n, no complaints this AM, sitting up in chair, stable on RA, denies F/C/N/V/CP/SOB Vitals: Temp: [36.4 ??C (97.5 ??F)-36.9 ??C (98.4 ??F)] Heart Rate: [83-101] Resp: [16] BP: (105-154)/(67-94) SpO2: [95 %-99 %] Heart Rate from SpO2: [68 bpm-96 bpm] Wt & BMI By Encounter Date Flowsheet Row ED to Hosp-Admission (Current) from 03/17/2023 in Surgical Unit Level 4 Wing D at [facility] Office Visit from 03/14/2023 in Thoracic Surgery at [facility] [place] Weight 79.4 kg (175 lb) 1 03/17/2023 0956 79.5 kg (175 lb 4.3 oz) 1 03/14/2023 1120 BMI -- 24.48 1 03/14/2023 1120 Physical Exam: Gen: NAD, pleasant, sitting comfortably in bed HEENT: normocephalic, atraumatic, EOMI, sclerae anicteric Neck: supple, trachea midline Card: RRR, no M/R/G appreciated Pulm: CTAB, no wheeze/ronchi/rales appreciated, non-labored breathing on RA; right posterior back with well-healed thoracotomy incision; erythema with associated fluctuance to the most superior aspect of the thoracotomy scar and TTP Abd: soft, NT, BS+ Ext: warm, dry, no edema Neuro: A&Ox3, CN II-XII grossly intact, nonfocal, conversant I/O: I/O last 3 completed shifts: In: 1625 [P.O.:75; I.V.:1000; IV Piggyback:550] Out: 300 [Urine:300] Labs: Recent Results (from the past 72 hour(s)) Basic Metabolic Panel (non-fasting) Result Value Ref Range Glucose Lvl 93 65 - 199 mg/dL BUN 12 10 - 20 mg/dL Creatinine 0.99 0.80 - 1.50 mg/dL Sodium 136 135 - 145 mmol/L Potassium 4.3 3.5 - 5.0 mmol/L Chloride 100 98 - 107 mmol/L CO2 22 22 - 31 mmol/L Anion Gap 14 5 - 15 mmol/L Calcium 9.5 8.5 - 10.5 mg/dL Estimated GFR 83 >=60 mL/min/1.73 m?? CRP, acute inflammation Result Value Ref Range CRP 112.8 (H) <=4.9 mg/L Sedimentation rate Result Value Ref Range Sed Rate >119 (H) 2 - 37 mm/hr Hemogram Result Value Ref Range WBC 7.5 4.0 - 9.5 x10(3)/mcL RBC 6.86 (H) 4.58 - 5.54 x10(6)/mcL Hemoglobin 13.9 13.7 - 16.5 g/dL Hematocrit 46.0 40.5 - 48.5 % MCV 67.1 (L) 82.9 - 93.1 fL MCH 20.3 (L) 27.5 - 32.1 pg MCHC 30.2 (L) 32.0 - 35.7 g/dL Platelets 302 145 - 357 x10(3)/mcL RDWSD 37.2 36.0 - 45.0 fL RDWCV 17.3 (H) 11.4 - 13.8 % MPV 9.8 7.6 - 12.9 fL nRBC % Auto 0.0 % nRBC Abs Auto 0.000 0.000 - 0.000 x10(3)/mcL Differential, Automated Result Value Ref Range Neutrophils % 74.9 % Neutr Abs (ANC) 5.59 1.70 - 6.10 x10(3)/mcL Lymphocytes % 15.7 % Lymphocytes Abs 1.2 0.9 - 3.2 x10(3)/mcL Monocytes % 7.9 % Monocyte Abs 0.6 0.3 - 0.9 x10(3)/mcL Eosinophils % 0.3 % Eosinophils Abs 0.0 0.0 - 0.4 x10(3)/mcL Basophils % 0.8 % Basophils Abs 0.1 0.0 - 0.1 x10(3)/mcL Immature Gran % 0.40 % Mayra Gran Abs 0.03 0.00 - 0.04 x10(3)/mcL L-Lactate2 Whole Blood Result Value Ref Range Lactate WB 1.5 0.5 - 2.2 mmol/L Body Fluid Culture, Aerobic Specimen: Fluid Abscess Result Value Ref Range Gram Stain (A) Many Neutrophils seen Many Gram Positive Cocci seen Organism Gram Positive Cocci (A) Diagnostics: CT Chest w Contrast Narrative: EXAMINATION: CT CHEST W CONTRAST CLINICAL HISTORY: Soft tissue mass, chest, superficial fluctuant Right chest wall mass at posterior/apical aspect of prior R thoracotomy incision, hx of prior site infxns, purulent-appearing material aspirated, ? cyst/abscess, ? tracking into chest, please eval for pleural effusion / empyema, interval change TECHNIQUE: Helical CT of the chest after the intravenous administration of 60 mL Omnipaque 350. Thin-section reconstructions as well as coronal and sagittal reformatted images were generated. COMPARISON: CT chest 10/17/2022 FINDINGS: Pulmonary parenchyma: Unchanged size and number of multiple subcentimeter pulmonary nodules throughout both lungs with the largest measuring 7 mm within the left lower lobe (series 5, image 319). Additionally there are multiple pleural-based nodules most prominent along the right major fissure which are unchanged dating back to 09/25/2019. Airways: No central endobronchial abnormality. Pleura: No effusion. Lymph nodes: No lymphadenopathy. Heart and vasculature: Normal size of the heart. No significant pericardial effusion. Normal caliber of the thoracic aorta. Mediastinum: Expected postoperative findings in the anterior mediastinum. Upper abdomen: Multiple simple cysts within both kidneys. Skeletal structures: No suspicious osseous lesions. Chest wall: Postsurgical changes status right posteriolateral chest wall thoracotomy. There is new increased muscle bulk and heterogeneity of the right trapezius muscle and loss of adjacent fat plane (series 3, images 31-39). There is question of displacement of a previous dystrophic calcification which now is centered within the muscle (series 3, image 39). No peripherally enhancing loculated fluid collection. No subcutaneous air. Impression: 1. Incompletely characterized increased right trapezius muscle [...] and pleural-based nodules. 3. No pleural effusion. I have personally reviewed the image(s) and the resident's interpretation and agree with the findings, Jing Hudson MD at 03/14/2023 5:36 PM Thank you for letting us participate in the care of this patient. If you are a health care provider and have any questions regarding this report, please contact the number below. For patients who have questions please contact the health rn long term care that requested your imaging first. Electronically signed by: Jing Hudson MD, [facility] ([phone]), at 03/14/2023 5:36 PM Micro: Microbiology Results (last 7 days) Procedure Component Value - Date/Time Body Fluid Culture, Aerobic & Anaerobic Fluid [[id number]] (Abnormal) Collected: 03/17/231144 Lab Status: Preliminary result Specimen: Fluid Updated: 03/17/231334 Body Fluid Culture, Aerobic [[id number]] (Abnormal) Collected: 03/17/231144 Lab Status: Preliminary result Specimen: Fluid Updated: 03/17/231334 Gram Stain -- Many Neutrophils seen Many Gram Positive Cocci seen Organism Gram Positive Cocci ASSESSMENT: Tree Lantigua is a 67 y.o. male known to our service for distant R Thoracotomy with Mediastinal Mass Resection of a Thymoma in 2019, post-op course complicated by an SSI requiring I&D and NPWT for assisted healing and closure. Now with a new abscess to the superior aspect of his prior incisionwith GPC growing on needle aspiration from 03/14, s/p I&D at bedside on 03/17/2023, will plan to p roceed to OR for further I&D / washout of wound. PLAN: Neuro: tylenol, oxycodone 5 mg Q6H PRN Card: HDS, monitor vitals Pulm: stable on RA, pulmonary toilet - IS/cough/deep breathe FENGI: Pt made NPO this AM Renal/: voiding spontaneously, monitor UOP Heme: SQH prevention specialist to OR then TID ID: will d/c vanc, continue zosyn for time being, f/u micro results, will need PM dsg change Endo: LONI Other: LONI PPx: SQH, SCDs, IS/cough/deep breathe Dispo: Floor status, L4WD All plans formulated in discussion with and directed by attending thoracic surgeon Dr. Alvarez. SOCRATES Rao 03/18/2023 Thoracic Surgery Service Pager [phone] documented in this encounter H&P Notes * Dimitry Rodriguez MD - 03/17/2023 12:39 PM EST Images from the original note were not included. [facility] Department of Thoracic Surgery History & Phisical Patient Name: Tree Lantigua Patient : 1955 Patient Patient Location: ED15/ED-15B Attending Surgeon: JOSE ALVAREZ Reason for Visit: Prior Right thoracotomy incision discomfort and swelling ID / HPI: Tree Lantigua is a 67 y.o. male known to our service for prior R Thoracotomy, Resection of Anterior Mediastinal Mass, and Wedge Resection x5 of the R Lung for a Stage I Thymoma on 10/24/2019. His post-op course was notable of a surgical site infection requiring wide drainage, debridement, and woundVAC placement to assist with closure and healing. Noted that his cultures grew S.aureus at this time. The patient requested a follow-up visit on 03/14/23 for concerns around his prior thoracotomy incision. He has had increasing pain around the site and feels a fluctuance. The area was aspirated in clinic, and fluid was sent for micro - he left in stable condition with a course of PO Bactrim DS BID x10 days. Since being home, he has had ongoing increasing pain and discomfort at the area, has had increasing erythema, and has affected his sleep by not being able to lay on it. He denies fevers/chills or anything else out of his usual state of health. PMHx: No past medical history on file. As above PSHx: Past Surgical History: Procedure Laterality Date PRO BRONCHOSCOPY, DIAGNOSTIC N/A 10/24/2019 BRONCHOSCOPY, DIAGNOSTIC (WRVU 2.78) performed by Jose Alvarez MD at [facility] OR PRO DEBRIDEMENT MUSCLE AND FASCIA 20 SQ CM/< Right 12/09/2019 DEBRIDEMENT SKIN, SUBCU, MUSCLE, THORAX (WRVU 2.7) performed by Michael Li MD at [facility] OR [facility] I&D HEMATOMA SEROMA/FLUID COLLECTION Right 11/09/2019 INCISION & DRAINAGE HEMATOMA, SEROMA OR FLD. COLLECTION, CHEST (WRVU 1.58) performed by Piyush Hobbs MD at [facility] OR PRO INCISION AND DRAINAGE COMPLEX POST OPERATIVE WOUND INFECTION Right 12/09/2019 INCISION & DRAINAGE COMPLEX POSTOPERATIVE WOUND INFECTION (WRVU 2.3) performed by Michael Li MD at [facility] OR [facility] INJECTION ANES AGENT &/ STEROID INTERCOSTAL NERVE EA ADDL LEVEL Right 10/24/2019 NERVE BLOCK, INTERCOSTAL NERVE, MULTIPLE (WRVU 1.68) performed by Jose Alvarez MD at [facility] OR [facility] THORACOSCOPY WITH BIOPSY OF PLEURA Right 10/24/2019 THORACOSCOPY; WITH BIOPSY(IES) OF PLEURA (WRVU 4.58) performed by Jose Alvarez MD at [facility] OR [facility] THORACOTOMY WITH THERAPEUTIC WEDGE RESECTION EA ADDL Right 10/24/2019 @THORACOTOMY; W/THERAPEUTIC WEDGE RESECTION, EA ADD'L RESC, IPSILATERAL (WRVU 3) performed by Jose Alvarez MD at [facility] OR [facility] THORACOTOMY WITH THERAPEUTIC WEDGE RESECTION INITIAL Right 10/24/2019 @THORACOTOMY; W/ THERAPEUTIC WEDGE RESECTION , INITIAL (WRVU 15.75) performed by Jose Alvarez MD at [facility] OR PRO THYMECTOMY, RADICAL MEDIAST DISSSEC Right 10/24/2019 @THYMECTOMY W/ RAD. MEDIASTINAL DISSECTION (WRVU 23.48) performed by Jose Alvarez MD at [facility] OR ROS: Full 12-Point ROS reviewed and negative except noted in HPI Vitals: Temp: [36.9 ??C (98.4 ??F)] Heart Rate: [94-101] Resp: [16] BP: (129-154)/(83-94) SpO2: [97 %-99 %] Heart Rate from SpO2: [94 bpm] Wt & BMI By Encounter Date Flowsheet Row ED from 03/17/2023 in Emergency Department [facility] Office Visit from 03/14/2023 in Thoracic Surgery at [facility] [place] Weight 79.4 kg (175 lb) 1 03/17/2023 0956 79.5 kg (175 lb 4.3 oz) 1 03/14/2023 1120 BMI -- 24.48 1 03/14/2023 1120 Physical Exam: Gen: NAD, pleasant, sitting comfortably in bed HEENT: normocephalic, atraumatic, EOMI, sclerae anicteric Neck: supple, trachea midline Card: RRR, no M/R/G appreciated Pulm: CTAB, no wheeze/ronchi/rales appreciated, non-labored breathing on RA; right posterior back with well-healed thoracotomy incision; erythema with associated fluctuance to the most superior aspect of the thoracotomy scar and TTP Abd: soft, NT, BS+ Ext: warm, dry, no edema Neuro: A&Ox3, CN II-XII grossly intact, nonfocal, conversant I/O: No intake/output data recorded. Labs: Recent Results (from the past 72 hour(s)) Basic Metabolic Panel (non-fasting) Result Value Ref Range Glucose Lvl 118 65 - 199 mg/dL BUN 13 10 - 20 mg/dL Creatinine 0.98 0.80 - 1.50 mg/dL Sodium 138 135 - 145 mmol/L Potassium 4.5 3.5 - 5.0 mmol/L Chloride 101 98 - 107 mmol/L CO2 26 22 - 31 mmol/L Anion Gap 11 5 - 15 mmol/L Calcium 9.5 8.5 - 10.5 mg/dL Estimated GFR 84 >=60 mL/min/1.73 m?? Hemogram Result Value Ref Range WBC 10.7 (H) 4.0 - 9.5 x10(3)/mcL RBC 6.63 (H) 4.58 - 5.54 x10(6)/mcL Hemoglobin 13.6 (L) 13.7 - 16.5 g/dL Hematocrit 44.6 40.5 - 48.5 % MCV 67.3 (L) 82.9 - 93.1 fL MCH 20.5 (L) 27.5 - 32.1 pg MCHC 30.5 (L) 32.0 - 35.7 g/dL Platelets 282 145 - 357 x10(3)/mcL RDWSD 38.1 36.0 - 45.0 fL RDWCV 17.7 (H) 11.4 - 13.8 % MPV 9.8 7.6 - 12.9 fL nRBC % Auto 0.0 % nRBC Abs Auto 0.000 0.000 - 0.000 x10(3)/mcL Differential, Automated Result Value Ref Range Neutrophils % 79.9 % Neutr Abs (ANC) 8.57 (H) 1.70 - 6.10 x10(3)/mcL Lymphocytes % 10.6 % Lymphocytes Abs 1.1 0.9 - 3.2 x10(3)/mcL Monocytes % 8.0 % Monocyte Abs 0.9 0.3 - 0.9 x10(3)/mcL Eosinophils % 0.4 % Eosinophils Abs 0.0 0.0 - 0.4 x10(3)/mcL Basophils % 0.5 % Basophils Abs 0.0 0.0 - 0.1 x10(3)/mcL Immature Gran % 0.60 % Mayra Gran Abs 0.06 (H) 0.00 - 0.04 x10(3)/mcL Scan, Peripheral Blood Result Value Ref Range Plat Estimate Normal RBC Morphology Abnormal Microcytes 1-5 /HPF Ovalocytes 1-5 /HPF Basic Metabolic Panel (non-fasting) Result Value Ref Range Glucose Lvl 93 65 - 199 mg/dL BUN 12 10 - 20 mg/dL Creatinine 0.99 0.80 - 1.50 mg/dL Sodium 136 135 - 145 mmol/L Potassium 4.3 3.5 - 5.0 mmol/L Chloride 100 98 - 107 mmol/L CO2 22 22 - 31 mmol/L Anion Gap 14 5 - 15 mmol/L Calcium 9.5 8.5 - 10.5 mg/dL Estimated GFR 83 >=60 mL/min/1.73 m?? CRP, acute inflammation Result Value Ref Range CRP 112.8 (H) <=4.9 mg/L Sedimentation rate Result Value Ref Range Sed Rate >119 (H) 2 - 37 mm/hr Hemogram Result Value Ref Range WBC 7.5 4.0 - 9.5 x10(3)/mcL RBC 6.86 (H) 4.58 - 5.54 x10(6)/mcL Hemoglobin 13.9 13.7 - 16.5 g/dL Hematocrit 46.0 40.5 - 48.5 % MCV 67.1 (L) 82.9 - 93.1 fL MCH 20.3 (L) 27.5 - 32.1 pg MCHC 30.2 (L) 32.0 - 35.7 g/dL Platelets 302 145 - 357 x10(3)/mcL RDWSD 37.2 36.0 - 45.0 fL RDWCV 17.3 (H) 11.4 - 13.8 % MPV 9.8 7.6 - 12.9 fL nRBC % Auto 0.0 % nRBC Abs Auto 0.000 0.000 - 0.000 x10(3)/mcL Differential, Automated Result Value Ref Range Neutrophils % 74.9 % Neutr Abs (ANC) 5.59 1.70 - 6.10 x10(3)/mcL Lymphocytes % 15.7 % Lymphocytes Abs 1.2 0.9 - 3.2 x10(3)/mcL Monocytes % 7.9 % Monocyte Abs 0.6 0.3 - 0.9 x10(3)/mcL Eosinophils % 0.3 % Eosinophils Abs 0.0 0.0 - 0.4 x10(3)/mcL Basophils % 0.8 % Basophils Abs 0.1 0.0 - 0.1 x10(3)/mcL Immature Gran % 0.40 % Mayra Gran Abs 0.03 0.00 - 0.04 x10(3)/mcL L-Lactate2 Whole Blood Result Value Ref Range Lactate WB 1.5 0.5 - 2.2 mmol/L Diagnostics: CT Chest w Contrast Narrative: EXAMINATION: CT CHEST W CONTRAST CLINICAL HISTORY: Soft tissue mass, chest, superficial fluctuant Right chest wall mass at posterior/apical aspect of prior R thoracotomy incision, hx of prior site infxns, purulent-appearing material aspirated, ? cyst/abscess, ? tracking into chest, please eval for pleural effusion / empyema, interval change TECHNIQUE: Helical CT of the chest after the intravenous administration of 60 mL Omnipaque 350. Thin-section reconstructions as well as coronal and sagittal reformatted images were generated. COMPARISON: CT chest 10/17/2022 FINDINGS: Pulmonary parenchyma: Unchanged size and number of multiple subcentimeter pulmonary nodules throughout both lungs with the largest measuring 7 mm within the left lower lobe (series 5, image 319). Additionally there are multiple pleural-based nodules most prominent along the right major fissure which are unchanged dating back to 09/25/2019. Airways: No central endobronchial abnormality. Pleura: No effusion. Lymph nodes: No lymphadenopathy. Heart and vasculature: Normal size of the heart. No significant pericardial effusion. Normal caliber of the thoracic aorta. Mediastinum: Expected postoperative findings in the anterior mediastinum. Upper abdomen: Multiple simple cysts within both kidneys. Skeletal structures: No suspicious osseous lesions. Chest wall: Postsurgical changes status right posteriolateral chest wall thoracotomy. There is new increased muscle bulk and heterogeneity of the right trapezius muscle and loss of adjacent fat plane (series 3, images 31-39). There is question of displacement of a previous dystrophic calcification which now is centered within the muscle (series 3, image 39). No peripherally enhancing loculated fluid collection. No subcutaneous air. Impression: 1. Incompletely characterized increased right trapezius muscle [...] and pleural-based nodules. 3. No pleural effusion. I have personally reviewed the image(s) and the resident's interpretation and agree with the findings, Jing Hudson MD at 03/14/2023 5:36 PM Thank you for letting us participate in the care of this patient. If you are a health care provider and have any questions regarding this report, please contact the number below. For patients who have questions please contact the health rn long term care that requested your imaging first. Electronically signed by: Jing Hudson MD, [facility] ([phone]), at 03/14/2023 5:36 PM Micro: Microbiology Results (last 7 days) Procedure Component Value - Date/Time Body Fluid Culture, Aerobic & Anaerobic Fluid [[id number]] (Abnormal) Collected: 03/17/231144 Lab Status: Preliminary result Specimen: Fluid Updated: 03/17/231334 Body Fluid Culture, Aerobic [[id number]] (Abnormal) Collected: 03/17/231144 Lab Status: Preliminary result Specimen: Fluid Updated: 03/17/231334 Gram Stain -- Many Neutrophils seen Many Gram Positive Cocci seen Organism Gram Positive Cocci ASSESSMENT: Tree Lantigua is a 67 y.o. male known to our service for distant R Thoracotomy with Mediastinal Mass Resection of a Thymoma in 2019, post-op course complicated by an SSI requiring I&D and NPWT for assisted healing and closure. Now with a new abscess to the superior aspect of his prior incisionwith GPC growing on needle aspiration from 03/14. PLAN: Admit to Thoracic Surgery I&D performed at bedside, see procedure note below Sending culture swabs for second analysis Wound Care: pack with iodosorb, will change again in the evening Empiric Abx of Vancomycin Pain control PRN All plans formulated and staffed with attending Dr. Tesfaye Rodriguez MD 03/17/2023 Thoracic Surgery Service Pager [phone] PROCEDURE NOTE: INCISION & DRAINAGE After obtaining consent, the right posterior back was prepped and draped appropriately. The skin was anesthetized with 0.25% marcaine. Then, the abscess was opened with an 11-blade scalpel. Tj pusand some blood were immediately expressed. Cultures were taken. A couple loculations were broken with digital probing. The fluid collection did not appear to be invading the muscle or chest wall, butdid probe a few centimeters in each direction. The abscess contents was fully expressed. Iodoform packing was placed within the cavity, covered by 4x4 gauze and medipore tape. The procedure was tolerated well by the patient. documented in this encounter ED Notes * Sarah Beth Reese PA - 03/17/2023 10:36 AM EST Images from the original note were not included. ED Provider Note HPI: Tree Lantigua is a 67 y.o. male s/p right thoracotomy, partial decortication, resection of anterior mediastinal mass on 10/24/19 for a Type A stage I thymoma, course c/b surgical site infection requiring I&D and wound vac placement x2 on 11/09/19 and 12/09/19 who presents to the Emergency Department for a wound evaluation. Patient noticed pain and swelling surrounding his thoracotomy incision site last week. He was seen by thoracic surgery outpatient who aspirated an abscess along the incision.He was started on Bactrim three days ago. He had a CT chest on three days ago which showed a soft tissue infection with developing abscess. Patient states that he has been taking the Bactrim as prescribed. However, he has had increased pain and swelling along the site. He denies any fevers, chills,nausea, vomiting, other signs or symptoms of systemic illness. He has not had any relief with the pain with Tylenol and Motrin. History obtained by the patient. ROS as per HPI Vitals: ED Triage Vitals BP: (!) 154/94 [03/17/23956] Heart Rate: (!) 101 [03/17/23955] Resp: 16 [03/17/23955] Temp: 36.9 ??C (98.4 ??F) [03/17/23955] Temp src: Temporal [03/17/23955] SpO2: 99 % [03/17/23955] O2 Device: RA [03/17/23955] O2 Flow Rate (L/min): n/a Physical Exam General: Resting on hospital stretcher. No acute distress. HEENT: Normal conjunctiva. Moist mucous membranes. Respiratory: Normal respiratory effort. Lungs clear to auscultation bilaterally. Cardiac: Regular rate and rhythm. No murmur. Abdomen: Soft, nontender, nondistended. Extremities: No edema. No gross deformity. Skin: Large right thoracotomy incision with erythema and tenderness to palpation along the medial right aspect. There is also a 0.5 cm abscess appearing area right upper trapezius. See photos. Neuro: Awake, alert, oriented. No gross focal neurological deficits. ED Course: I have reviewed labs and imaging, images and available reports, and they are significant for: ED Course as of 03/17/23 1656 Sat Mar 17, 2023 1656 WBC: 7.5 1656 CRP(!): 112.8 1656 Sed Rate(!): >119 1656 Lactate WB: 1.5 Assessment and Plan: 67 y.o. male with history as above presenting to ED for a wound evaluation. On arrival, the patientis mildly hypertensive and tachycardic with otherwise normal vital signs. On exam, there is a largeright thoracotomy incision with erythema and tenderness to palpation along the medial right aspect,there is also a 0.5 cm abscess appearing area right upper trapezius. No systemic signs or symptoms of infection. Do not suspect sepsis. Lab work as above. Imaging deferred. Case discussed with thoracic surgery who will admit the patient. Patient was given Toradol for pain will in the emergency department. No socioeconomic barriers to care identified. Impression: wound infection Disposition: discharged home, stable Did this case involve critical care? No The visit findings, diagnosis, and care plan were discussed with the patient. The diagnosis and care plans discussions were outlined in the discharge instructions. The patient expressed understanding of the details of the visit, the return precautions and that he should returnto the ER at any time for worsening symptoms, new symptoms, or other concerns. he agrees with the follow- up plan. Sarah Beth Reese PA 03/17/23 1700 * Maile Pa LPN - 03/17/2023 10:13 AM EST Attempted IV start, unsuccessful documented in this encounter Miscellaneous Notes * Plan of Care - Gabe Curiel RN - 03/20/2023 6:10 AM EST A&Ox4, cooperative w/ care. VSS, RA. Pt reporting mild incisional pain, medicated per JUN. OOB independently to BR, continent. IV abx given per orders. Call james within reach, safety maintained. Problem: Pain Acute Goal: Acceptable Pain Control and Functional Ability Outcome: Ongoing (Interventions Implemented as Appropriate) Problem: Infection Goal: Absence of Infection Signs and Symptoms Outcome: Ongoing (Interventions Implemented as Appropriate) Problem: Adult Inpatient Plan of Care Goal: Plan of Care Review Outcome: Ongoing (Interventions Implemented as Appropriate) Goal: Patient-Specific Goal (Individualized) Outcome: Ongoing (Interventions Implemented as Appropriate) Goal: Absence of Hospital-Acquired Illness or Injury Outcome: Ongoing (Interventions Implemented as Appropriate) Goal: Optimal Comfort and Wellbeing Outcome: Ongoing (Interventions Implemented as Appropriate) Goal: Readiness for Transition of Care Outcome: Ongoing (Interventions Implemented as Appropriate) Problem: Fall Injury Risk Goal: Absence of Fall and Fall-Related Injury Outcome: Ongoing (Interventions Implemented as Appropriate) * Plan of Care - Madison Adam RN - 03/19/2023 6:26 PM EST Patient alert and oriented x4. Patient with no c/o pain voiced. Patient up ambulating in hallway this shift. Patient up to bathroom with adequate urine output noted. Patient dressing to back changed by Md. Patient continues on IV antibiotics. Patient tolerating diet with no nausea/vomiting. Patientvital signs stable. Problem: Pain Acute Goal: Acceptable Pain Control and Functional Ability Outcome: Ongoing (Interventions Implemented as Appropriate) Problem: Infection Goal: Absence of Infection Signs and Symptoms Outcome: Ongoing (Interventions Implemented as Appropriate) Problem: Adult Inpatient Plan of Care Goal: Plan of Care Review Outcome: Ongoing (Interventions Implemented as Appropriate) Goal: Patient-Specific Goal (Individualized) Outcome: Ongoing (Interventions Implemented as Appropriate) Goal: Absence of Hospital-Acquired Illness or Injury Outcome: Ongoing (Interventions Implemented as Appropriate) Goal: Optimal Comfort and Wellbeing Outcome: Ongoing (Interventions Implemented as Appropriate) Goal: Readiness for Transition of Care Outcome: Ongoing (Interventions Implemented as Appropriate) Problem: Fall Injury Risk Goal: Absence of Fall and Fall-Related Injury Outcome: Ongoing (Interventions Implemented as Appropriate) * Initial Assessments - Angela Rock RN - 03/19/2023 3:43 PM EST Office of Care Management Initial Assessment Angela Rock RN reviewed record and discussed patient with Care Team. Source of Information: Team, bedside nurse, medical record, and Patient Introduced self/reviewed role; services accepted. Admitted From: Home Reason for Hospitalization: new abscess to the superior aspect of his prior incision Covid Vaccination Status: 1st, 2nd & booster Last COVID test: Lab Results Component Value Date COVID19 Not Detected 10/21/2019 [id number] Not Detected 12/08/2019 Past medical History: No past medical history on file. Hospitalizations Within the Past 30 Days: no previous admission in last 30 days Current Decision-Making Capacity: Self If AD's have not been completed the following surrogate would be surrogate decision maker per [place] surrogate decision making law. (Only good for 180 days) Any patient receiving care in [place] must abide by [place] law. The hierarchy for surrogate decision making is: (a) Patient???s spouse or civil union partner unless there is a divorce proceeding, separation agreement, or restraining order limiting that person???s relationship with the patient. (b) Any adult son or daughter of the patient. (c) Either parent of the patient. (d) Any adult brother or sister of the patient. (e) Any adult grandchild of the patient. (f) Any grandparent of the patient. (g) Any adult aunt, uncle, niece, or nephew of the patient. (h) A close friend of the patient. (i) The agent with financial power of contracts attorney or a conservator appointed in accordance with RSA 464-A. (j) The guardian of the patient???s estate. Advance Care Planning: Attempt Cardiopulmonary Resuscitation - Inpatient <no information> -Advanced Directive: No, declines Current Coping/Education/Information Needs: denies needs at this time Current Functional Ability: Independent Functional Status Prior to Admission: Independent Prior ADLs & IADLs: Independent with all ADLs & IADLs Bathing: Independent with Bathing Dressing: Independent with Dressing Home Environment: Others in the home: spouse. Current Living Arrangements: home/apartment/condo. Accessibility Concerns:2 story house, main level living capable, 4 LUCILLE w/o rail. Resource / Environmental Concerns: Resource/Environmental Concerns: none Home Accessibility Concerns: stairs to enter home Current DME: none Home Address confirmed as: [address] [place] [id number] Social & Family Supports: All names listed below confirmed with patient as current and correct Extended Emergency Contact Information Primary Emergency Contact: Lillian Tyson Address: [address] [place] [address] of [facility] Mobile Relation: Spouse Current Care Provided by: self Provides Primary Care For: no one Caregiver if needed: spouse Quality of Family relationships: helpful, involved, supportive Community Resources being provided currently: none Behavioral Health History: none Substance Use/Abuse listed: Social History Tobacco Use Smoking Status Never Smokeless Tobacco Never 0 No problems reported 1-2 Low level 3-5 Moderate level 6-8 Substantial level 9- 10 Severe level 0 to 7 points: Low risk 8 to 15 points: Medium risk 16 to 19 points: High risk 20 to 40 points: Addiction likely Other Pertinent/Service Specific Information: none Health/Prescription Coverage: Primary Insurance: AARP MANAGED MEDICARE Payor: AARP MANAGED MEDICARE / Plan: AARP RPPO MANAGED MEDICARE COMPLETE / Product Type: *No Product type* / Secondary Insurance: N/A ; Prescription Coverage: Yes Preferred Pharmacy: [id number] - [place], [place] - [address] [facility] [address] [facility] [address] [facility] [phone] [place], [place] - [address] [facility] [address] [facility] [address] [facility] [address] [facility] - [place], [place] - [address] [facility] [address] [facility] [address] [place] Status: Patient is a : No Primary Care Provider confirmed: Christiana Moore APRN [phone] Patient/Caregiver Goals of Treatment: discharge home Potential Needs for Transition of Care: home health care Agency Referrals: I have met with the patient to: discuss discharge planning needs. provide the [facility], Office of Care Management letter from the Chief Port Director pertaining to rehab referrals. provide a letter describing our affiliations within the [facility] and educate about their right to choose where referrals are sent. provide a list of Home Health Agencies / Durable Medical Equipment vendors which serve their preferred geographic area. provided patient with [facility] Star Quality Rating handout. They have requested referrals to: [facility] [address] [place] [address] KATELYN: 03/20/2023 Note routed to a Mine Safety Director who will communicate referrals to facilities and provide any required information. Transportation: no concerns Transportation Anticipated: family or friend will provide Concerns to be Addressed: denies needs/concerns at this time Assessment: Patient is admitted to Thoracic service for new abscess to the superior aspect of his prior incision Plan: Continuing IV abx and pain control. Anticipated d/c to home tomorrow w/ VNA services for wound care needs. A member of the Care Management team will continue to monitor progress, follow for continuity of care and assist with transition of care planning. Angela Rock RN-BSN-CM Pager: [phone] * Plan of Care - Cindy Bonilla RN - 03/19/2023 5:08 AM EST OUTCOME EVALUATION NOTE: OUTCOME SUMMARY: Pt is AxOx4, VSS on RA, afebrile. No complaints of SOB or chest pain. No BM noted this shift. Voiding adequately via urinal/toilet. Pain managed with scheduled Tylenol and Toradol. Plan of care is ongoing. PLAN MOVING FORWARD: Pain management Discharge planning Encourage ambulation Monitor VS and I&Os INDIVIDUALIZED FALL PREVENTION INTERVENTIONS: Patient-specific fall risk factors per assessment: [current deficits]: Generalized weakness, unfamiliar environment, acute pain, lines Assistance [level of assistance required for transfers and ambulation]: Independent Supervision [direct monitoring required during toileting and ADLs]: Eyes on / Arms reach Surveillance [continuous indirect monitoring]: Call light within reach, room near unit station, purposeful rounding Patient-specific fall prevention interventions for sensory deficits provided, if applicable: Yes CARE PLAN GOAL OUTCOME EVALUATION: Problem: Pain Acute Goal: Acceptable Pain Control and Functional Ability Outcome: Ongoing (Interventions Implemented as Appropriate) Problem: Infection Goal: Absence of Infection Signs and Symptoms Outcome: Ongoing (Interventions Implemented as Appropriate) Problem: Adult Inpatient Plan of Care Goal: Plan of Care Review Outcome: Ongoing (Interventions Implemented as Appropriate) Goal: Patient-Specific Goal (Individualized) Outcome: Ongoing (Interventions Implemented as Appropriate) Goal: Absence of Hospital-Acquired Illness or Injury Outcome: Ongoing (Interventions Implemented as Appropriate) Goal: Optimal Comfort and Wellbeing Outcome: Ongoing (Interventions Implemented as Appropriate) Goal: Readiness for Transition of Care Outcome: Ongoing (Interventions Implemented as Appropriate) Problem: Fall Injury Risk Goal: Absence of Fall and Fall-Related Injury Outcome: Ongoing (Interventions Implemented as Appropriate) * Plan of Care - Madison Adam RN - 03/18/2023 7:00 PM EST Patient alert and oriented x4. Patient with c/o pain at incision site, prn pain medication given. Md at bedside to change dressing this shift. Patient continues on IV antibiotics. Patient up independently in room. Patient with adequate urine output noted. Patient vital signs stable. Problem: Pain Acute Goal: Acceptable Pain Control and Functional Ability Outcome: Ongoing (Interventions Implemented as Appropriate) * Brief Op Note - Andriy Davison MD - 03/18/2023 8:45 AM EST Brief Operative Note Patient Name: Tree Lantigua : [id number] MR#: [id number] Case Date: 03/18/2023 Surgeon: Surgeon(s) and Role: * Jose Alvarez MD - Primary * Andriy Davison MD - Resident - Assisting Preoperative diagnosis: abscess old thoracotomy wound Postoperative diagnosis: abscess old thoracotomy wound Procedure(s) (LRB): INCISION & DRAINAGE HEMATOMA, SEROMA OR FLD. COLLECTION, TRUNK (WRVU 1.58) (Right) Anesthesia: Anesthesia type not filed in the log. Local Findings: prior I&D abscess cavity opened with 6.5x3cm elliptical incision, depth measuring 2cmand with cavity tracking to superior aspect inferior to muscle ~5cm. Irrigated and excised portion sent for specimen/culture. Cavity packed with moistened kerlix gauze wet to dry with 4x4 gauze and medipore tape dressing Complications: none apparent Estimated Blood Loss: 5 mL* No values recorded between 03/18/2023 8:10 AM and 03/18/2023 8:30 AM * Specimens removed during surgery: Order Name Source Comment Collection Info Order Time SPECIMEN TO PATHOLOGY abscess old thoracotomy wound debriedment right posterior chest wall re-excision 03/18/2023 8:20 AM Time specimen removed from patient: 8:20 AM Number of tissue samples (in container) 1 Fluids: Intraprocedure Crystalloid Total None PRBCs: none (See Anesthesia Record/Report for Other Blood Products) Urine Output: (no urine output recorded) Drains: none Disposition: aroused from sedation, and taken to the recovery room in a stable condition Condition: doing well without problems (Please see the Surgical Encounter Summary for any Implant and Specimen details pertinent to this patient.) Surgical Infection Prevention Bundle Used? N/A * Op Note - Jose Alvarez MD - 03/18/2023 8:10 AM EST [facility] Operative Note Patient Name: Tree Lantigua : [id number] MR#: [id number] Case Date: 03/18/2023 Surgeon: Surgeon(s) and Role: * Jose Alvarez MD - Primary * Andriy Davison MD - Resident - Assisting Preoperative diagnosis: abscess old thoracotomy wound Postoperative diagnosis: abscess old thoracotomy wound Procedure: I&D abscess right chest wall Findings: Prior abscess cavity opened with 6.5x3cm elliptical incision, depth measuring 2cm and with cavity tracking to superior aspect deep to muscle ~5cm. Irrigated and excised portion sent for specimen/culture. Cavity packed with moistened kerlix gauze wet to dry with 4x4 gauze and medipore tapedressing. Did not involve the chest wall proper (only soft tissue and muscle, not the bony chest wall) Anesthesia: MAC, local 22cc 0.25% marcaine Estimated Blood Loss: 5 mL Specimens removed during surgery: Order Name Source Comment Collection Info Order Time SPECIMEN TO PATHOLOGY abscess old thoracotomy wound debriedment right posterior chest wall re-excision 03/18/2023 8:20 AM Time specimen removed from patient: 8:20 AM Number of tissue samples (in container) 1 Drains: none Surgical Closure: Other Than Primary Closure - deep and superficial layers are left completely openduring original surgery Disposition: aroused from sedation, and taken to the recovery room in a stable condition Condition: doing well without problems (Please see the Surgical Encounter Summary for any Implant and Specimen details pertinent to this patient.) HPI/Surgical Indications: 67 year old male history of 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 He presents today for washout and incision and drainage of the wound in the operating room due to inadequate drainage from bedside I&D. After reviewing the risks and benefits and alternatives of the procedure informed consent was obtained and he agreed to proceed. Procedure Description: The patient was identified and brought to the operating room. He was positioned in left lateral decubitus with all pressure points padded. He was sedated and a timeout was performed with all in agreement to proceed. He is receiving SQH for VTE prophylaxis and has been receiving zosyn for antibiotics. He was prepped and draped in the usual sterile fashion. His prior I&D site was probed revealing an underlying cavity roughly 5x6cm in size. A field block was performed using 0.25% marcaine 20cctotal and additional 2cc for the skin incision. A 3x6cm elliptical incision was made incorporating the prior scar and the skin and underlying subcutaneous tissues excised and sent for a specimen. Thecavity was explored and manually debrided using gauze. The cavity tunnels underneath muscle superior by about 5cm. A small cyst capsule was excised and sent along with the specimen contents. Electrocautery was used to control any bleeding. The cavity was irrigated thoroughly and inspected for hemostasis which was excellent. A moistened kerlix gauze was packed into the cavity with 4x4 dry gauze placed on top and secured with medipore tape. All counts were correct. Dr. Alvarez was present for the entirety of the case. Surgical Infection Prevention Bundle Used? N/A I was the attending physician supervising the resident in the above care and I was present with theresident for the entire procedure. JOSE ALVAREZ MD * Plan of Care - Gabe Curiel RN - 03/18/2023 5:55 AM EST A&Ox4, cooperative w/ care. VSS, RA. Pt reporting mild to moderate pain to the right upper back, medicated per MAR. Regular diet, denies N/V. OOB independently, continent of urine. Pt oriented toroom, call james within reach. Problem: Pain Acute Goal: Acceptable Pain Control and Functional Ability Outcome: Ongoing (Interventions Implemented as Appropriate) documented in this encounter Plan of Treatment Scheduled Referrals Name Type Priority Associated Diagnoses Orde r Schedule Referral to Home Health Outpatient Referral Routine Chest wall abscess Ordered: 03/20/2023 documented as of this encounter Procedures Procedure Name Priority Date/Time Associated Diagnosis Comments SPECIMEN TO PATHOLOGY Routine 03/18/2023 8:21 AM EST SURGICAL PATHOLOGY REPORT Routine 03/18/2023 8:20 AM EST I&D Hematoma Seroma/Fluid Collection ([id number]) 03/18/2023 7:55 AM EST abscess old thoracotomy wound INCISION & DRAINAGE HEMATOMA, SEROMA OR FLD. COLLECTION, TRUNK Routine 03/18/2023 7:30 AM EST HC GRAM STAIN FOR BACTERIA STAT 03/17/2023 11:45 AM EST BODY FLUID CULTURE, AEROBIC STAT 03/17/2023 11:45 AM EST L-LACTATE2 WHOLE BLOOD Routine 11:13 AM EST CRP, ACUTE INFLAMMATION STAT 03/17/2023 11:06 AM EST HEMOGRAM STAT 03/17/2023 11:06 AM EST DIFFERENTIAL, AUTOMATED STAT 03/17/2023 11:06 AM EST SEDIMENTATION RATE STAT 03/17/2023 11 :06 AM EST CBC (WITH DIFF) STAT 03/17/2023 11:06 AM EST BASIC METABOLIC PANEL STAT 03/17/2023 11:06 AM EST documented in this encounter Results * Specimen to Pathology (03/18/2023 8:21 AM EST) AP Specimen 03/18/2023 8:21 AM EST 03/18/2023 8:21 AM EST Narrative [facility] - 03/18/2023 8:21 AM EST Specimen requisition ordered. ??Separate Pathology report to follow Jose Alvarez MD PATHOLOGY/CYTOLOGY O [facility] [place] [address] * Surgical Pathology Report (03/18/2023 8:20 AM EST) Final Diagnosis [id number] ? Location: L4WD; 0409; A The signing pathologist has (i) examined the relevant preparation(s) for the specimen(s) and (ii) rendered or confirmed the diagnosis(es). . ?Surgical Pathology DIAGNOSIS A - Skin and soft tissue, right posterior chest wall, debridement: - Skin with scar and underlying granulation tissue with acute and chronic inflammation. Electronically signed by: ?Helen Garcia MD Verified: ??03/26/2023 10:34 ??Pathologist Performed at: ??-[facility] Dept. of Pathology, [place] [id number] Chief Port Director: Tunde Smyth MD, FCAP, ??CLIA Certificate: [id number] SPECIMEN(S) SUBMITTED A - Skin and soft tissue, right posterior chest wall, debridement (1) CLINICAL INFORMATION Abscess old thoracotomy wound SPECIMEN PROCESSING A - Labeled/Fixative : Debridement right posterior chest wall, fresh. Quantity/Size: Single, 5.2 x 2.3 x 1.0 cm. Tissue Description: Grossman-bean, wrinkled skin ellipse with underlying bean, dull and rubbery subcutaneous tissue. Sections/Process ing: Coordinator Of Rehabilitation Services sections in 1 cassette labeled A1. ??jnr 03/26/2023 10:34 AM EST [facility] SPECIMEN FROM UNSPECIFIED BODY SITE / Unknown 03/18/2023 8:20 AM EST 03/18/2023 8:20 AM EST Jose Alvarez MD PATHOLOGY/CYTOLOGY O RDERABLES Performing Organization Address City/[facility]/ZIP Co de Phone Number [facility] [place] [address] [facility] [place] [address] * (ABNORMAL) Body Fluid Culture, Aerobic (03/17/2023 11:45 AM EST) Body Fluid Culture Many Staphylococcus aureus(A) [facility] Gram Stain Many Neutrophils seen Many Gram Positive Cocci seen (A) [facility] Organism Staphylococcus aureus(A) [facility] Organism Gram Positive Cocci(A) [facility] Fluid 03/17/2023 11:4 5 AM EST 03/17/2023 12:46 PM EST Comment:Abscess Narrative Resulting Agency Comment Spec In Lab Organism Antibiotic Method Susceptibility Staphylococcus aureus Clindamycin VITEK 2 METHOD Sensitive Staphylococcus aureus Erythromycin VITEK 2 METHOD Sensitive Staphylococcus aureus Gentamicin VITEK 2 METHOD Sensitive Comment:Gentamicin i s not appropriate for [place]-therapy. Staphylococcus aureus Oxacillin VITEK 2 METHOD Sensitive Comment: Oxacillin (methicillin) susceptibility is a surrogate for the oral and parenteral cephalosporins, beta-lactam combination agents (amoxicillin-clavulanate, ampicillin-sulbactam and piperacillin-tazobactam) and carbapenem agents. ??It is NOT a surrogate for penicillin, ampicillin or piperacillin susceptibility. Staphylococcus aureus Trimethoprim/Sulfa VITEK 2 METHO D Sensitive Staphylococcus aureus Tetracycline VITEK 2 METHOD Sensitive Staphylococcus aureus Vancomycin VITEK 2 METHOD Sensitive Dimitry Rodriguez MD MICROBIOLOGY - GENER AL ORDERABLES Performing Organization Address City/[facility]/ZIP Co de Phone Number [facility] [place] [address] * L-Lactate2 Whole Blood (03/17/2023 11:13 AM EST) Lactate WB 1.5 0.5 - 2.2 mmol/L [facility] Blood 03/17/2023 11:1 3 AM EST 03/17/2023 11:13 AM EST Jose Alvarez MD CHEMISTRY ORDERABLES Performing Organization Address City/[facility]/[place] [address] * Differential, Automated (03/17/2023 11:06 AM EST) Neutrophil % 74.9 % [facility] Neutrophil Absolute 5.59 1.70 - 6.10 x10(3)/[facility] Lymph % 15.7 % [facility] Lymphocytes Abs 1.2 0.9 - 3.2 x10(3)/[facility] Monocyte % 7.9 % [facility] Monocyte Abs 0.6 0.3 - 0.9 x10(3)/[facility] Eos % 0.3 % [facility] Eosinophils Abs 0.0 0.0 - 0.4 x10(3)/[facility] Basophil % 0.8 % [facility] Baso Absolute 0.1 0.0 - 0.1 x10(3)/[facility] Immature Gran % 0.40 % [facility] Comment: Immature granulocytes(IG's)percentage and absolute count will include metamyelocytes, myelocytes, and promyelocytes. Blood smears from CBCs yielding IG's will be scanned manually for concordance. If this scan disagrees with the automated IG or if promyelocytes are noted, a manual differential will be performed. Immature Gran Absolute 0.03 0.00 - 0.04 x10(3)/[facility] Blood 03/17/2023 11:0 6 AM EST 03/17/2023 11:14 AM EST Narrative Resulting Agency Comment Spec In Lab Becca Tovar MD HEMATOLOGY ORDERABLE S Performing Organization Address City/[facility]/[place] [address] * (ABNORMAL) Hemogram (03/17/2023 11:06 AM EST) White Blood Cell 7.5 4.0 - 9.5 x10(3)/ L [facility] Red Blood Cell 6.86(H) 4.58 - 5.54 x10(6)/mc L [facility] Hemoglobin 13.9 13.7 - 16.5 g/dL [facility] Hematocrit 46.0 40.5 - 48.5 % [facility] Mean Cell Volume 67.1(L) 82.9 - 93.1 fL [facility] Mean Cell Hemoglobin 20.3(L) 27.5 - 32.1 pg [facility] Mean Cell Hemoglobin Concentration 30.2(L) 32.0 - 35.7 g/dL [facility] Platelet 302 145 - 357 x10(3)/mc L [facility] RDW Standard Deviation 37.2 36.0 - 45.0 fL [facility] RDW coefficient of variation 17.3(H) 11.4 - 13.8 % [facility] Mean Platelet Volume 9.8 7.6 - 12.9 fL [facility] NRBC% auto 0.0 % [facility] NRBC Absolute 0.000 0.000 - 0.000 x10(3)/mc L [facility] Blood 03/17/2023 11:0 6 AM EST 03/17/2023 11:14 AM EST Narrative Resulting Agency Comment Spec In Lab Becca Tovar MD HEMATOLOGY ORDERABLE S Performing Organization Address City/[facility] Co de Phone Number [facility] [place] [address] * (ABNORMAL) Sedimentation rate (03/17/2023 11:06 AM EST) Sedimentation Rate Automated >119(H) 2 - 37 mm/hr [facility] Comment: Effective March 19, 2019 new capillary photometric technology has resulted in a change in reference ranges. It is recommended that each ESR result be reviewed with its own age appropriate reference range. Blood 03/17/2023 11:0 6 AM EST 03/17/2023 11:14 AM EST Narrative Resulting Agency Comment Spec In Lab Jose Alvarez MD HEMATOLOGY ORDERABLE S Performing Organization Address City/[facility]/ZIP Co de Phone Number [facility] [place] [address] * (ABNORMAL) CRP, acute inflammation (03/17/2023 11:06 AM EST) C-Reactive Protein 112.8(H) <=4.9 mg/L [facility] Blood 03/17/2023 11:0 6 AM EST 03/17/2023 11:14 AM EST Narrative Resulting Agency Comment Spec In Lab Jose Alvarez MD CHEMISTRY ORDERABLES [facility] [address] [place] [address] * Basic Metabolic Panel (non-fasting) (03/17/2023 11:06 AM EST) Glucose 93 65 - 199 mg/dL [facility] Comment:Diabetes: >=200 mg/d L plus symptoms Blood Urea Nitrogen 12 10 - 20 mg/dL [facility] Creatinine 0.99 0.80 - 1.50 mg/dL [facility] Sodium 136 135 - 145 mmol/L [facility] Potassium 4.3 3.5 - 5.0 mmol/L [facility] Comment: Please note: ??Patients with WBC >100,000 may have falsely elevated Potassium levels. ??For accurate Potassium quantification in these patients send serum separator tube (gold top) for subsequent determinations. ??Contact the Clinical Chemistry Laboratory if there are any questions. Chloride 100 98 - 107 mmol/L [facility] Carbon Dioxide 22 22 - 31 mmol/L [facility] Anion Gap 14 5 - 15 mmol/L [facility] Calcium 9.5 8.5 - 10.5 mg/dL [facility] Est Glomerular Filtration Rate 83 >=60 mL/min/1. 73 m?? [facility] Comment: This patient's estimated GFR [...] Narrative Resulting Agency Comment Spec In Lab Jose Alvarez MD CHEMISTRY ORDERABLES [facility] [place] [address] documented in this encounter Visit Diagnoses Diagnosis Complicated wound infection- Primary Complicated wound infection Chest wall abscess Cellulitis and abscess of trunk documented in this encounter Admitting Diagnoses Diagnosis Complicated wound infection documented in this encounter Administered Medications Inactive Administered Medications - up to 3 most recent administrations Medication Order MAR Action Action Date Dose Rate Site acetaminophen (Tylenol) tablet 975 mg 975 mg, Oral, EVERY 6 HOURS SCHEDULED, First dose on 03/18/23 at 0000, Until Discontinued, Maximum dose of acetaminophen is 4,000 mg from all sources in 24 hours. When ordered for pain, acetaminophen should be given even when other ordered pain medications are indicated., Recovery (Recovery-Hospital Unit), Routine Given 03/20/2023 11:00 AM EST 975 mg Given 03/20/2023 6:01 AM EST 975 mg Given 03/19/2023 11:23 PM EST 975 mg ampicillin-sulbactam (Unasyn) 1.5 g vial attach to sodium chloride 0.9% 50 mL Mini-Bag Plus 1.5 g, Intravenous, EVERY 6 HOURS, First dose on 03/19/23 at 0900, Until Discontinued, Administer over 15 Minutes, Warning Vesicant/Irritant Medication , Indication for (Active or Suspected): Skin/Skin Structure New Bag 03/20/2023 2:43 AM EST 1.5 g 200 mL/hr New Bag 03/19/2023 8:01 PM EST 1.5 g 200 mL/hr New Bag 03/19/2023 2:44 PM EST 1.5 g 200 mL/hr BUpivacaine (pf) (Marcaine) (2.5 mg/mL) 0.25% injection 50 mg 50 mg (20 mL), Subcutaneous, ONCE, 1 dose, On 03/17/23 at 1101, STAT Given 03/17/2023 11:01 AM EST 50 mg ketorolac (Toradol) (15 mg/mL) injection 15 mg 15 mg, Intravenous, EVERY 8 HOURS PRN, Starting on 03/17/23 at 1058, Until Sun03/17/23 at 2130, Pain, Routine Given 03/17/2023 8:29 PM EST 15 mg Given 03/17/2023 11:23 AM EST 15 mg ketorolac (Toradol) (15 mg/mL) injection 15 mg 15 mg, Intravenous, EVERY 8 HOURS SCHEDULED, 6 doses, First dose on 03/17/23 at 2215, Last dose on 03/19/23 at 1400, Recovery (Recovery-Hospital Unit), Routine Given 03/19/2023 1:23 PM EST 15 mg Given 03/19/2023 5:21 AM EST 15 mg Given 03/18/2023 9:43 PM EST 15 mg lidocaine (Xylocaine) 1% (10 mg/mL) injection 3 mg 3 mg (0.3 mL), Subcutaneous, ONCE PRN, 1 dose, Starting on 03/17/23 at 2123, Until Sun03/20/23 at 1420, for discomfort with PIV insertion, Recovery (Recovery-Hospital Unit), Routine oxyCODONE (Roxicodone) tablet 5 mg 5 mg, Oral, EVERY 6 HOURS PRN, Starting on 03/17/23 at 1201, Until Sun03/20/23 at 1420, Pain, Pain 7-10, Routine Given 03/18/2023 4:14 PM EST 5 mg Given 03/17/2023 6:57 PM EST 5 mg Given 03/17/2023 12:28 PM EST 5 mg piperacillin-tazobactam (Zosyn) 3.375 g vial attach to sodium chloride 0.9% 50 mL Mini-Bag Plus 3.375 g, Intravenous, EVERY 8 HOURS, First dose on 03/17/23 at 1728, Until Discontinued, Administer over 4 Hours, Warning Vesicant/Irritant Medication Do not administer or Y-site with lactated ringers., Indication for (Active or Suspected): Skin/Skin Structure New Bag 03/19/2023 12:53 AM EST 3.375 g 12.5 mL/hr New Bag 03/18/2023 5:31 PM EST 3.375 g 12.5 mL/hr New Bag 03/18/2023 9:34 AM EST 3.375 g 12.5 mL/hr senna (Senokot) tablet 17.2 mg 17.2 mg, Oral, EVERY EVENING, First dose on Sun03/18/23 at 1700, Until Discontinued, Routine Given 03/19/2023 4:08 PM EST 17.2 mg Given 03/18/2023 4:14 PM EST 17.2 mg sodium chloride 0.9 % (flush) (BD PosiFlush Normal Saline 0.9) flush 5 mL 5 mL, Intravenous, 2 TIMES DAILY, First dose on 03/17/23 at 1058, Until Discontinued, Routine Given 03/19/2023 9:12 AM EST 5 mLs Given 03/18/2023 9:44 PM EST 5 mLs Given 03/18/2023 9:42 AM EST 5 mLs sodium chloride 0.9 % (flush) (BD PosiFlush Normal Saline 0.9) flush 5 mL 5 mL, Intravenous, 2 TIMES DAILY, First dose on Sun03/17/23 at 2215, Until Discontinued, Recovery (Recovery-Hospital Unit), Routine Given 03/20/2023 8:11 AM EST 5 mLs Given 03/19/2023 8:00 PM EST 5 mLs Given 03/19/2023 9:12 AM EST 5 mLs sodium chloride 0.9 % (flush) (BD PosiFlush Normal Saline 0.9) flush 5-20 mL 5-20 mL, Intravenous, EVERY 1 MIN PRN, Starting on Sun03/17/23 at 2123, Until Sun03/20/23 at 1420, flush, Flush pertains to all indwelling lines. Flush per protocol found in the job aid using the link provided on this medication record., Recovery (Recovery-Hospital Unit), Routine sodium chloride 0.9% 1,000 mL IV bolus Intravenous, ONCE, 1 dose, On 03/17/23 at 1100 New Bag 03/17/2023 11:22 AM EST sulfamethoxazole-trimethoprim DS (Bactrim DS) 800-160 mg per tablet 1 tablet 1 tablet, Oral, EVERY 12 HOURS SCHEDULED (2 times per day), First dose on Sun03/20/23 at 0900, Until Discontinued, Routine, Indication for (Active or Suspected): Other (See comment) Given 03/20/2023 8:11 AM EST 1 tablet vancomycin (Vancocin) 1.25 gram in sodium chloride 0.9% 250 mL infusion 1,250 mg, Intravenous, at 200 mL/hr, EVERY 18 HOURS, First dose on 03/18/23 at 0600, Until Discontinued, Maximum infusion rate is 1 gram/hour. If flushing of the face, neck, upper body, arms, and/or back occurs decrease infusion rate by 50% to reduce the severity of symptoms. This medication may have an associated drug lab level. Please see MAR for scheduled level. Warning Vesicant/Irritant Medication , Routine New Bag 03/18/2023 5:48 AM EST 1,250 mg 200 mL/hr vancomycin (Vancocin) 2 gram in sodium chloride 0.9% 500 mL infusion 2 g, Intravenous, at 250 mL/hr, ONCE, 1 dose, On 03/17/23 at 1057, Maximum infusion rate is 1 gram/hour. If flushing of the face, neck, upper body, arms, and/or back occurs decrease infusion rate by 50% to reduce the severity of symptoms. This medication may have an associated drug lab level. Please see MAR for scheduled level. Warning Vesicant/Irritant Medication , STAT New Bag 03/17/2023 12:29 PM EST 2 g 250 mL/hr documented in this encounter Active and Recently Administered Medications Times are shown in EST. Scheduled Medication Order 03/18/2023 03/19/2023 03/20/2023 acetaminophen (Tylenol) tablet 975 mg 975 mg, Oral, EVERY 6 HOURS SCHEDULED, First dose on 03/18/23 at 0000, Until Discontinued, Maximum dose of acetaminophen is 4,000 mg from all sources in 24 hours. When ordered for pain, acetaminophen should be given even when other ordered pain medications are indicated., Recovery (Recovery-Hospital Unit), Routine 0000 (Not Given - Provider: Gabe Curiel RN - Reason: Patient/family refused)0600 (Not Given - Provider: Gabe Curiel RN - Reason: Patient/family refused)1201 (Given - Provider: Madison Adam RN)1731 (Given - Provider: Madison Adam RN) 0052 (Given - Provider: Cindy Bonilla RN)0521 (Given - Provider: Cindy Bonilla RN)1112 (Given - Provider: Madison Adam RN)1702 (Given - Provider: Madison Adam RN)2323 (Given - Provider: Gabe Curiel RN) 0601 (Given - Provider: Gabe Curiel RN)1100 (Given - Provider: Pily Greenwood RN) ampicillin-sulbactam (Unasyn) 1.5 g vial attach to sodium chloride 0.9% 50 mL Mini-Bag Plus (CANCELED) 1.5 g, Intravenous, EVERY 6 HOURS, First dose on 03/19/23 at 0900, Until Discontinued, Administer over 15 Minutes, Warning Vesicant/Irritant Medication , Indication for (Active or Suspected): Skin/Skin Structure 0820 (New Bag - Provider: Madison Adam RN)0835 (Stopped - Provider: Madison Adam RN)1444 (New Bag - Provider: Madison Adam RN)1459 (Stopped - Provider: Madison Adam RN)2000 (New Bag - Provider: Gabe Curiel RN)2016 (Stopped - Provider: Gabe Curiel RN) 0243 (New Bag - Provider: Gabe Curiel RN)0258 (Stopped - Provider: Gabe Curiel RN) heparin (porcine) (5,000 units/1 mL) subcutaneous injection 5,000 Units (COMPLETED) 5,000 Units, Subcutaneous, COATING TECHNICIAN TO O.R., 1 dose, On 03/18/23 at 0830, Please administer prevention specialist to OR, prior to procedure, thank you, STAT 0754 (JUN Hold - Provider: Admin Adt - Reason: Transfer to a Procedural area)0815 (Given - Provider: Camilla Cruz CRNA - Comment: Right arm. PSR)0816 (MAR Unhold - Provider: Camilla Cruz CRNA)0830 (Due) ketorolac (Toradol) (15 mg/mL) injection 15 mg () 15 mg, Intravenous, EVERY 8 HOURS SCHEDULED, 6 doses, First dose on 12/9/23 at 2215, Last dose on 03/19/23 at 1400, Recovery (Recovery-Hospital Unit), Routine 0549 (Given - Provider: Gabe Curiel RN)1407 (Given - Provider: Madison Adam RN)2143 (Given - Provider: Cindy Bonilla, EVER) 0521 (Given - Provider: Cindy Bonilla, RN)1323 (Given - Provider: Madison Adam RN) piperacillin-tazobactam (Zosyn) 3.375 g vial attach to sodium chloride 0.9% 50 mL Mini-Bag Plus (CANCELED) 3.375 g, Intravenous, EVERY 8 HOURS, First dose on 03/17/23 at 1728, Until Discontinued, Administer over 4 Hours, Warning Vesicant/Irritant Medication Do not administer or Y-site with lactated ringers., Indication for (Active or Suspected): Skin/Skin Structure 0043 (New Bag - Provider: Gabe Cruiel RN)0443 (Stopped - Provider: Gabe Curiel RN)0754 (JUN Hold - Provider: Admin Adt - Reason: Transfer to a Procedural area)0810 (Bolus - Provider: Camilla Cruz CRNA)0922 (JUN Unhold - Provider: Admin Adt)0934 (New Bag - Provider: Madison Adam RN)1334 (Stopped - Provider: Madison Adam RN)1731 (New Bag - Provider: Madison Adam RN)2131 (Stopped - Provider: Cindy Bonilla RN) 0053 (New Bag - Provider: Cindy Bonilla RN)0453 (Stopped - Provider: Cindy Bonilla, EVER) senna (Senokot) tablet 17.2 mg 17.2 mg, Oral, EVERY EVENING, First dose on Sun03/18/23 at 1700, Until Discontinued, Routine 0754 (JUN Hold - Provider: Admin Adt - Reason: Transfer to a Procedural area)0922 (JUN Unhold - Provider: Admin Adt)1614 (Given - Provider: Madison Adam RN) 1608 (Given - Provider: Madison Adam RN) sodium chloride 0.9 % (flush) (BD PosiFlush Normal Saline 0.9) flush 5 mL (CANCELED) 5 mL, Intravenous, 2 TIMES DAILY, First dose on Sun03/17/23 at 1058, Until Discontinued, Routine 0754 (MAR Hold - Provider: Admin Adt - Reason: Transfer to a Procedural area)0900 (Automatically Held - Provider: Admin Adt)0922 (JUN Unhold - Provider: Admin Adt)0942 (Given - Provider: Madison Adam RN)2143 (Given - Provider: Cindy Bonilla RN) 09 (Given - Provider: Madison Adam RN) sodium chloride 0.9 % (flush) (BD PosiFlush Normal Saline 0.9) flush 5 mL 5 mL, Intravenous, 2 TIMES DAILY, First dose on Sun03/17/23 at 2215, Until Discontinued, Recovery (Recovery-Hospital Unit), Routine 0942 (Given - Provider: Madison Adam RN)2142 (Given - Provider: Cindy Bonilla RN) 09 (Given - Provider: Madison Adam RN)1999 (Given - Provider: Gabe Curiel RN) 0811 (Given - Provider: Pily Greenwood RN) sulfamethoxazole-trimet hoprim DS (Bactrim DS) 800-160 mg per tablet 1 tablet 1 tablet, Oral, EVERY 12 HOURS SCHEDULED (2 times per day), First dose on Sun03/20/23 at 0900, Until Discontinued, Routine, Indication for (Active or Suspected): Other (See comment) 0811 (Given - Provider: Pily Greenwood RN) vancomycin (Vancocin) 1.25 gram in sodium chloride 0.9% 250 mL infusion (CANCELED) 1,250 mg, Intravenous, at 200 mL/hr, EVERY 18 HOURS, First dose on Sun03/18/23 at 0600, Until Discontinued, Maximum infusion rate is 1 gram/hour. If flushing of the face, neck, upper body, arms, and/or back occurs decrease infusion rate by 50% to reduce the severity of symptoms. This medication may have an associated drug lab level. Please see JUN for scheduled level. Warning Vesicant/Irritant Medication , Routine 0548 (New Bag - Provider: Gabe Curiel RN)0658 (Stopped - Provider: Cindy Bonilla, EVER - Comment: Time automatically adjusted from order being discontinued) PRN Medication Order 03/18/2023 03/19/2023 03/20/2023 BUpivacaine (Sensorcaine) (2.5 mg/mL) 0.25% injection (CANCELED) PRN, Starting on 03/18/23 at 0815, Until Sun03/20/23 at 1420, Intra-Operative (Intra-Procedure), Routine 0815 (Given - Provider: Jose Alvarez MD - Comment: surgical site) lidocaine (Xylocaine) 1% (10 mg/mL) injection 3 mg 3 mg (0.3 mL), Subcutaneous, ONCE PRN, 1 dose, Starting on 03/17/23 at 2123, Until Sun03/20/23 at 1420, for discomfort with PIV insertion, Recovery (Recovery-Hospital Unit), Routine oxyCODONE (Roxicodone) tablet 5 mg 5 mg, Oral, EVERY 6 HOURS PRN, Starting on 03/17/23 at 1201, Until Sun03/20/23 at 1420, Pain, Pain 7-10, Routine 0754 (JUN Hold - Provider: Admin Adt - Reason: Transfer to a Procedural area)0922 (JUN Unhold - Provider: Admin Adt)1614 (Given - Provider: Madison Adam RN) sodium chloride 0.9 % (flush) (BD PosiFlush Normal Saline 0.9) flush 5-20 mL 5-20 mL, Intravenous, EVERY 1 MIN PRN, Starting on 03/17/23 at 2123, Until Sun03/20/23 at 1420, flush, Flush pertains to all indwelling lines. Flush per protocol found in the job aid using the link provided on this medication record., Recovery (Recovery-Hospital Unit), Routine documented in this encounter Care Teams Wood Car [employer] Relationship Specialty Start Date End Date Christiana Moore APRN [address] [place] [address] PCP - General Family Medicine 09/26/19 documented as of this encounter
--- OUTSIDE RECORDS SUMMARY | 2023-11-12 02:15 | XMS_ITS | Encounter Summary ---
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 Name Role Phone Christiana Moore RYAN Primary Care Provider [phone] Reason for Referral * Diagnostic Test (STAT) - Closed Specialty Diagnoses / Procedures Referred By Contac t Referred To Contact Radiology Diagnoses Chest wall abscess Procedures CT Chest w Contrast Todd Alvarez, PA [facility] [place] [address] [facility] [place] [address] Referral ID Status Reason Start Date Expiration Date V isits Requested Visits Authorized [id number] Closed Specialty Service Requested 03/14/2023 09/12/2024 1 1 Reason for Visit * Reason Comments Follow-up Cancer Thymoma * Auth/Cert Specialty Diagnoses / Procedures Referred By Contac t Referred To Contact Diagnoses Complicated wound infection Procedures ER MICAELAI Jose Alvarez MD [facility] [place] [address] [facility] Referral ID Status Reason Start Date Expiration Date Visits Re quested Visits Authorized [id number] 1 1 Encounter Details Date Type Department Care Team (Late st Contact Info) Description 03/14/2023 11:00 AM EST Office [place] [address] Jose Alvarez MD [facility] [place] [address] Chest wall abscess (Primary Dx); Type A malignant thymoma; Open wound of right chest wall with [...] Sign Reading Time Taken Comments Blood Pressure 134/96 03/14/2023 11:20 AM EST Pulse 108 03/14/2023 11:20 AM EST Temperature 36.8 ??C (98.2 ??F) 03/14/2023 11:[address] Respiratory Rate 18 03/14/2023 11:20 AM EST Oxygen Saturation 98% 03/14/2023 11:20 AM EST Inhaled Oxygen Concentration - - Weight 79.5 kg (175 lb 4.3 oz) 03/14/2023 11:20 AM EST Height 180.2 cm (5' 10.95) 03/14/2023 11:20 AM EST Body Mass Index 24.48 03/14/2023 11:20 AM EST documented in this encounter Progress Notes * Jose Alvarez MD - 03/14/2023 11:00 AM EST Thoracic Surgery Outpatient Consultation Note MD Todd Nance PA-C [place], [place] [address] Pre Op Dx: Mediastinal Mass Post Op Dx: Thymoma, Type A, Stage I Procedure (10/24/2019): Bronchoscopy, right VATS with evacuation of pleural fluid and partial decortication, right thoracotomy with resection of anterior mediastinal mass, wedge resection x5 of the right lung Pathology (10/24/2019): Anterior mediastinal mass -- 8.5 cm Thymoma, type A, confined to the thymus,-LVI, -Capsular invasion. Wedge resections RLL, RML and RUL- benign lymph nodes (11/09/2019): Right thoracotomy incision I&D and wound vac placement (12/09/2019): Right thoracotomy incision I&D and wound vac placement Complications: Surgical site infection -- ultimately healed with abx, debridement and VAC placement Reason for Visit: Prior Right thoracotomy incision discomfort and swelling HPI: Tree Lantigua is a 67 y.o. male s/p above procedures. Patient was last seen on 10/17/2022, at whichtime he was doing well overall, [place] on imaging, and plan was to RTC in [address] Chest for continued surveillance. Since then, patient reports he had been feeling well overall, however this past Sunday (03/11/2023) he began to notice his thoracotomy incision was sore, hurting, like it'sinflamed, and noticed some swelling (unsure how long ago that was noticed). Reports this became a bit worse over the next day or two, stable today compared to yesterday. Tried a dose of ibuprofen which helped a little. Has been able to stay active, eg shoveling snow and carrying wood, without much additional discomfort. Denies any trauma, falls, striking the area, denies fevers, chills, sweats, redness, warmth or drainage at the site, other recent infections, chest pain, palpitations, SOB,difficulty breathing, cough, productive cough, hemoptysis, nausea, vomiting, abdominal pain, constipation, diarrhea, edema. Physical Exam: Patient Vitals for the past 24 hrs: Temp Pulse Resp BP SpO2 03/14/23 1120 36.8 ??C (98.2 ??F) (!) 108 18 (!) 134/96 98 % Gen: NAD, pleasant, sitting up in chair HEENT: normocephalic, atraumatic, EOMI, sclerae anicteric Neck: supple, trachea midline Card: RRR, no M/R/G appreciated Pulm: CTAB, no wheeze/ronchi/rales appreciated, non-labored breathing on RA Wound/Incision: Right chest thoracotomy incision with approximately 7 x 5 cm area of swelling / fluctuance at posterior / apical - most aspect, no warmth, erythema or active drainage, otherwise remainder of thoracotomy incision clean, dry, intact, with evidence of good wound healing Abd: soft, NT, ND, BS+ Ext: warm, dry, no edema Neuro: A&Ox3, nonfocal, conversant Labs: Recent Results (from the past 24 hour(s)) Body Fluid Culture, Aerobic Specimen: Cyst Fluid Right posterior chest wall cyst/abscess fluid Result Value Ref Range Gram Stain (A) Cytocentrifuge Gram Stain performed Neutrophils seen Rare Gram Positive Cocci seen Organism Gram Positive Cocci (A) Basic Metabolic Panel (non-fasting) Result Value Ref [...] Abnormal Microcytes 1-5 /HPF Ovalocytes 1-5 /HPF Imaging: CT Chest I+ (03/14/2023): 1. Incompletely characterized increased right trapezius muscle bulk and heterogeneity adjacent to the thoracotomy and given the interval change this raises concern for an acute infectious/inflammatory process. Given the displacement of the dystrophic calcification it also raises concern for a possib le developing abscess/fluid collection which may have similar density to the surrounding soft tissues for which evaluation with ultrasound or MR is recommended. 2. Unchanged size and number of bilateral subcentimeter pulmonary and pleural- based nodules. 3. No pleural effusion. Assessment: Tree Lantigua is a 67 y.o. male s/p right thoracotomy, partial decortication, resection of anterior mediastinal mass on 10/23/2199 for a Type A stage I thymoma, course c/b surgical site infection requiring I&D and wound vac placement x2 on 11/09/2019 and 12/09/2019. Now with recent onset of discomfort and swelling at posterior / apical - most aspect of prior Right thoracotomy incision. The area was prepped thoroughly several times with chlorhexidine, then needle aspiration of the area was performed with return of a small amount of purulent appearing fluid which was sent for culture, and preliminary results demonstrated rare GPCs. WBC slightly elevated at 10.7. CT Chest I+ was obtained for further evaluation of the area and to ensure there is no evidence of communication with Right pleuralspace / pleural effusion / empyema, with results as detailed above. Given lack of systemic symptomsand patient preference to avoid further I&D / possible admission if at all avoidable, plan as detailed below: Plan: Will Rx bactrim DS 800-160 mg, 1 tablet BID x10 days, #20 Patient should monitor closely for fevers, chills, sweats, increasing redness, swelling, warmth, drainage or other changes - call immediately if any new or concerning symptoms should arise Follow up in about 1 week to evaluate for improvement Follow up with other providers as scheduled Recommend minimum of 30 minutes of exercise daily Please call with any questions or concerns at any time Patient and plan discussed with Dr. Alvarez. SOCRATES Rao 03/14/[address] [facility] I have reviewed the PA/resident's above history and I agree with the details as written. The assessment and plan were formulated in discussion with me and I agree with them as documented. JOSE ALVAREZ MD documented in this encounter Plan of Treatment Not on file documented as of this encounter Procedures Procedure Name Priority Date/Time Associated Diagnosis Comments ANAEROBIC CULTURE Routine 03/14/2023 12: 30 PM EST Chest wall abscess [facility] Routine 03/14/2023 12:30 PM EST Chest wall abscess BODY FLUID CULTURE, AEROBIC Routine 03/14/2023 12:30 PM EST Chest wall abscess documented in this encounter Results * CT Chest w Contrast (03/14/2023 3:46 PM EST) Anatomical Region Laterality Modality Chest Computed Tomogra phy Impressions 03/14/2023 5:36 PM EST 1. ??Incompletely characterized increased right trapezius muscle bulk and heterogeneity adjacent to the thoracotomy and given the interval change this raises concern for an acute infectious/inflammatory process. Given the displacement of the dystrophic calcification it also raises concern for a possible developing abscess/fluid collection which may have similar density to the surrounding soft tissues for which evaluation with ultrasound or MR is recommended. 2. ??Unchanged size and number of bilateral subcentimeter pulmonary and pleural-based nodules. 3. ??No pleural effusion. I have personally reviewed the [...] who have questions please contact the health coronary care unit nurse that requested your imaging first. ? Electronically signed by: Jing Hudson MD, [facility] ([phone]), at 03/14/2023 5:36 PM Narrative 03/14/2023 5:36 PM EST EXAMINATION: CT CHEST W CONTRAST [...] enhancing loculated fluid collection. No subcutaneous air. Procedure Note Jing Ramirez MD - 03/14/2023 EXAMINATION: CT CHEST W CONTRAST CLINICAL HISTORY: Soft tissue mass, chest, superficial fluctuant Right chest wall mass at posterior/apical aspect of prior R thoracotomy incision, hx of prior site infxns, purulent-appearingmaterial aspirated, ? cyst/abscess, ? tracking into chest, please eval forpleural effusion / empyema, interval change TECHNIQUE: Helical CT of the chest after the intravenous administration of60 mL Omnipaque 350. Thin-section reconstructions as well as coronal andsagittal reformatted images were generated. COMPARISON: CT chest 10/17/2022 FINDINGS: Pulmonary parenchyma: Unchanged size and number of multiplesubcentimeter pulmonary nodules throughout both lungs with the largest measuring 7 mmwithin the left lower lobe (series 5, image 319). Additionally there aremultiple pleural-based nodules most prominent along the right major fissure whichare unchanged dating back to 09/25/2019. Airways: No central endobronchial abnormality. Pleura: No effusion. Lymph nodes: No lymphadenopathy. Heart and vasculature: Normal size of the heart. No significantpericardial effusion. Normal caliber of the thoracic aorta. Mediastinum: Expected postoperative findings in the anteriormediastinum. Upper abdomen: Multiple simple cysts within both kidneys. Skeletal structures: No suspicious osseous lesions. Chest wall: Postsurgical changes status right posteriolateral chest wall thoracotomy. There is new increased muscle bulk and heterogeneity of theright trapezius muscle and loss of adjacent fat plane (series 3, images 31-39).There is question of displacement of a previous dystrophic calcification whichnow is centered within the muscle (series 3, image 39). No peripherallyenhancing loculated fluid collection. No subcutaneous air. IMPRESSION 1. Incompletely characterized increased right trapezius muscle bulk and heterogeneity adjacent to the thoracotomy and given the interval changethis raises concern for an acute infectious/inflammatory process. Given the displacement of the dystrophic calcification it also raises concern fora possible developing abscess/fluid collection which may have similardensity to the surrounding soft tissues for which evaluation with ultrasound or MRis recommended. 2. Unchanged size and number of bilateral subcentimeter pulmonary and pleural-based nodules. 3. No pleural effusion. I have personally reviewed the image(s) and the resident's interpretationand agree with the findings, Jing Hudson MD at 03/14/2023 5:36PM Thank you for letting us participate in the care of this patient. If youare a health care provider and have any questions regarding this report,please contact the number below. For patients who have questions please contactthe health coronary care unit nurse that requested your imaging first. Jose Alvarez MD IMG CT ORDERABLES * Basic Metabolic Panel (non-fasting) (03/14/2023 1:00 PM EST) Glucose 118 65 - 199 mg/dL [facility] Comment:Diabetes: >=200 mg/d L plus symptoms Blood Urea Nitrogen 13 10 - 20 mg/dL [facility] Creatinine 0.98 0.80 - 1.50 mg/dL [facility] Sodium 138 135 - 145 mmol/L [facility] Potassium 4.5 3.5 - 5.0 mmol/L [facility] Comment: Please note: ??Patients with WBC >100,000 may have falsely elevated Potassium levels. ??For accurate Potassium quantification in these patients send serum separator tube (gold top) for subsequent determinations. ??Contact the Clinical Chemistry Laboratory if there are any questions. Chloride 101 98 - 107 mmol/L [facility] Carbon Dioxide 26 22 - 31 mmol/L [facility] Anion Gap 11 5 - 15 mmol/L [facility] Calcium 9.5 8.5 - 10.5 mg/dL [facility] Est Glomerular Filtration Rate 84 >=60 mL/min/1. 73 m?? [facility] Comment: This patient's estimated GFR was [...] and symptoms in addition to eGFR. Blood 03/14/2023 1:00 PM EST 03/14/2023 1:13 PM EST Narrative Resulting Agency Comment Spec In Lab Jose Alvarez MD CHEMISTRY ORDERABLES Performing Organization Address [facility] [place] [address] * Anaerobic Culture (03/14/2023 12:30 PM EST) Anaerobic Culture No anaerobic organisms isolated [facility] Cyst Fluid 03/14/2023 12:3 0 PM EST 03/14/2023 1:49 PM EST Comment:Right posterior ches t wall cyst/abscess fluid Narrative Resulting Agency Comment Spec In Lab oJse Alvarez MD MICROBIOLOGY - GENER AL ORDERABLES Performing Organization Address [facility] Co de Phone Number [facility] [place] [address] * (ABNORMAL) Body Fluid Culture, Aerobic (03/14/2023 12:30 PM EST) Body Fluid Culture Few Staphylococcus aureus : two morphologies(A) [facility] Gram Stain Cytocentrifuge Gram Stain performed Neutrophils seen Rare Gram Positive Cocci seen (A) [facility] Organism Staphylococcus aureus(A) [facility] Organism Staphylococcus aureus(A) [facility] Organism Gram Positive Cocci(A) [facility] Cyst Fluid 03/14/2023 12:3 0 PM EST 03/14/2023 1:49 PM EST Comment:Right posterior ches t wall cyst/abscess fluid Narrative Resulting Agency Comment Spec In Lab Organism Antibiotic Method Susceptibility Staphylococcus aureus Clindamycin VITEK 2 METHOD Sensitive Staphylococcus aureus Erythromycin VITEK 2 METHOD Sensitive Staphylococcus aureus Gentamicin VITEK 2 METHOD Sensitive Comment:Gentamicin i s not appropriate for [place]-therapy. Staphylococcus aureus Oxacillin VITEK 2 METHOD Sensitive Comment: Oxacillin (methicillin) susceptibility is a surrogate for the oral and parenteral cephalosporins, beta-lactam combination agents (amoxicillin-clavulanate, ampicillin-sulbactam and piperacillin-tazobactam) and carbapenem agents. ??It is NOT a surrogate for penicillin, ampicillin or piperacillin susceptibility. Staphylococcus aureus Trimethoprim/Sulfa VITEK 2 METHO D Sensitive Staphylococcus aureus Tetracycline VITEK 2 METHOD Sensitive Staphylococcus aureus Vancomycin VITEK 2 METHOD Sensitive Staphylococcus aureus Clindamycin VITEK 2 METHOD Sensitive Staphylococcus aureus Erythromycin VITEK 2 METHOD Sensitive Staphylococcus aureus Gentamicin VITEK 2 METHOD Sensitive Comment:Gentamicin i s not appropriate for [place]-therapy. Staphylococcus aureus Oxacillin VITEK 2 METHOD Sensitive Comment: Oxacillin (methicillin) susceptibility is a surrogate for the oral and parenteral cephalosporins, beta-lactam combination agents (amoxicillin-clavulanate, ampicillin-sulbactam and piperacillin-tazobactam) and carbapenem agents. ??It is NOT a surrogate for penicillin, ampicillin or piperacillin susceptibility. Staphylococcus aureus Trimethoprim/Sulfa VITEK 2 METHO D Sensitive Staphylococcus aureus Tetracycline VITEK 2 METHOD Sensitive Staphylococcus aureus Vancomycin VITEK 2 METHOD Sensitive Jose Alvarez MD MICROBIOLOGY - [facility] [place] [address] documented in this encounter Visit Diagnoses Diagnosis Chest wall abscess- Primary Cellulitis and abscess of trunk Type A malignant thymoma Open wound of right chest wall with complication, subsequent encounter Chest wall abscess Cellulitis and abscess of trunk documented in this encounter Care Teams Liquor Bridge Operator Helper Relationship Specialty Start Date End Date Christiana Moore APRN [address] [place] [address] PCP - General Family Medicine 09/26/19 documented as of this encounter
--- OUTSIDE RECORDS SUMMARY | 2023-11-12 02:15 | XMS_ITS | Encounter Summary ---
Author Organization [facility] [place] [address] Care Team Providers Care Hotel Front Office Manager Name Role Phone Oscar Christiana RYAN Primary Care Provider [phone] Reason for Visit * Reason Comments Wound Check * Auth/Cert Specialty Diagnoses / Procedures Referred By Contac t Referred To Contact Diagnoses Complicated wound infection Procedures ER IPI Jose Alvarez MD [facility] [place] [address] [facility] Referral ID Status Reason Start Date Expiration Date Visits Re quested Visits Authorized [id number] 1 1 Encounter Details Date Type Department Care Team (Late st Contact Info) Description 03/18/2023 8:00 AM EST - 03/18/2023 9:48 AM EST Surgery [place] [address] Jose Alvarez MD [facility] [place] [address] INCISION & DRAINAGE HEMATOMA, SEROMA OR FLD. COLLECTION, TRUNK (WRVU 1.58) Social History Tobacco Use Types Packs/Day Years [...] Sign Reading Time Taken Comments Blood Pressure 111/69 03/18/2023 9:00 AM EST Pulse 57 03/18/2023 9:00 AM EST Temperature 36.6 ??C (97.9 ??F) 03/18/2023 9:15 AM ES T Respiratory Rate 16 03/18/2023 9:15 AM EST Oxygen Saturation 99% 03/18/2023 9:15 AM EST Inhaled Oxygen Concentration - - [...] Hospital Course: Tree Lantigua was admitted to [facility] on 03/17/2023 via the ED where [...] a nurse in the Thoracic Clinic at [phone]. For emergencies after hours, on weekends or holidays please call: [phone] and ask to speak to the Thoracic Surgeon programmer operator numerical control. Exercise & Activity Level: As you recover [...] please call the thoracic surgery clinic at [phone]. Driving: No driving for 1 week or [...] Thoracic Surgery Clinic or the Thoracic Surgeon programmer operator numerical control after hours. Please take over the counter [...] Center 03/20/2023 9:30 AM Jose Alvarez MD [facility] THOR 3K [facility] General Instructions None Future Appointments and Orders Future Orders Complete By Expires Referral to Home Health [REF34 Custom] As directed Process Instructions: If no progress note charted, please enter Clinical details in comments. Scheduling Instructions: Comments: Please evaluate Tree Lantigua for admission to Home [facility]. [address] [facility] [address] [facility] Date of : 1955 Inpatient DOCUMENTATION FOR VNA SERVICES (INCLUDING THOSE PATIENTS WITH MEDICARE COVERAGE REQUIRING HOME VNA SERVICES AND/OR HOSPICE SERVICES) PATIENT'S LOCATION: Tree Lantigua [address] [facility] [phone] (home) Cell: Telephone Information: In discussion with the attending physician, it is certified that this patient is under their care and that they, or a Nurse Practitioner, Clinical Nurse specialist or Physician Crew Leader who is working directly with them, had [...] saline and medipore HOME HEALTH CARE AGENCY: [facility] [address] [place] [id number] START OF CARE: within 24-48 hours of [...] from this patient's PCP: Christiana Moore APRN [address] [facility] [address] . All VNA agencies which cover the area of patient's residence have been reviewed, either verbally carmel writing, and patient/family have chosen the home health care agency noted. Questions: Disciplines Requested: Nursing Physical Therapy Provider Contact Information: Primary Care Provider: Christiana Moore APRN [phone] Discharge References/Attachments: Discharge References/Attachments None For questions regarding this document or issues relating to this hospitalization on the Thoracic Surgery Service, please contact Dr. Alvarez's office at . Signed: Monique Del Angel MD 03/20/2023 Thoracic Surgery [facility] PCP: Christiana Moore APRN Referring: Jose Alvarez MD [facility] [place] [address] documented in this encounter Discharge Instructions * [...] a nurse in the Thoracic Clinic at [phone]. For emergencies after hours, on weekends or holidays please call: [phone] and ask to speak to the Thoracic Surgeon programmer operator numerical control. Exercise & Activity Level: As you recover [...] please call the thoracic surgery clinic at [phone]. Driving: No driving for 1 week or [...] Thoracic Surgery Clinic or the Thoracic Surgeon programmer operator numerical control after hours. Please take over the counter [...] Center 03/20/2023 9:30 AM Jose Alvarez MD [address] documented in this encounter Medications at [...] from the original note were not included. [facility] Department of Thoracic Surgery Progress Note Patient Name: Tree Lantigua Patient : 1955 Patient Patient Location: [address] [place] [address] Attending Surgeon: JOSE ALVAREZ Reason for Visit: [...] Surgical Unit Level 4 Wing D at [facility] Office Visit from 03/14/2023 in Thoracic Surgery at [facility] Weight 79.4 kg (175 lb) 1 03/17/2023 [...] Body Fluid Culture, Aerobic & Anaerobic Fluid [[id number]] (Abnormal) Collected: 03/17/23 114 Lab Status: Preliminary result Specimen: Fluid Updated: 03/18/23939 Body Fluid Culture, Aerobic [[id number]] (Abnormal) Collected: 03/17/23 114 Lab Status: Preliminary result Specimen: Fluid Updated: [...] sensitivities on S.aureus micro BID WTD with [place] Will need VNA for assistance, coordinate with [...] Rodriguez MD 03/19/2023 Thoracic Surgery Service Pager [phone] * Leta Kincaid MD - 03/18/2023 12:54 [...] airway distress, lungs are clear. NSR on conveyor monitor. 0915: Updates given to [facility] RN July. Phase 2 criteria met. * Todd Alvarez PA - 03/18/2023 7:41 AM EST Images from the original note were not included. [facility] Department of Thoracic Surgery Progress Note Patient Name: Tree Lantigua Patient : 1955 Patient Patient Location: [address] [place] [address] Attending Surgeon: JOSE ALVAREZ Reason for Visit: [...] Surgical Unit Level 4 Wing D at [facility] Office Visit from 03/14/2023 in Thoracic Surgery at [facility] Weight 79.4 kg (175 lb) 1 03/17/2023 [...] who have questions please contact the health residential caregiver that requested your imaging first. Micro: Microbiology Results (last 7 days) Procedure Component Value - Date/Time Body Fluid Culture, Aerobic & Anaerobic Fluid [[id number]] (Abnormal) Collected: 12/09/23 1145 Lab Status: Preliminary result Specimen: Fluid Updated: 03/17/231334 Body Fluid Culture, Aerobic [[id number]] (Abnormal) Collected: 03/17/23 114 Lab Status: Preliminary result Specimen: Fluid Updated: [...] Renal/: voiding spontaneously, monitor UOP Heme: SQH programmer operator numerical control to OR then TID ID: will d/c vanc, continue zosyn for time being, f/u micro results, will need PM dsg change Endo: LONI Other: LONI PPx: SQH, SCDs, IS/cough/deep breathe Dispo: Floor status, L4WD All plans formulated in discussion with and directed by attending thoracic surgeon Dr. Alvaerz. SOCRATES Rao 03/18/2023 Thoracic Surgery Service Pager [phone] documented in this encounter H&P Notes * Dimitry Rodriguez MD - 03/17/2023 12:39 PM EST Images from the original note were not included. [facility] Department of Thoracic Surgery History & [...] 2.78) performed by Jose Alvarez MD at [facility] MAIN OR PRO DEBRIDEMENT MUSCLE AND FASCIA 20 SQ CM/< Right 12/09/2019 DEBRIDEMENT SKIN, SUBCU, MUSCLE, THORAX (WRVU 2.7) performed by Michael Li MD at [facility] MAIN OR PRO I&D HEMATOMA SEROMA/FLUID COLLECTION Right 11/09/2019 INCISION & DRAINAGE HEMATOMA, SEROMA OR FLD. COLLECTION, CHEST (WRVU 1.58) performed by Piyush Hobbs MD at [facility] MAIN OR PRO INCISION AND DRAINAGE COMPLEX POST OPERATIVE WOUND INFECTION Right 12/09/2019 INCISION & DRAINAGE COMPLEX POSTOPERATIVE WOUND INFECTION (WRVU 2.3) performed by Michael Li MD at [facility] MAIN OR PRO INJECTION ANES AGENT &/ STEROID INTERCOSTAL NERVE EA ADDL LEVEL Right 10/24/2019 NERVE BLOCK, INTERCOSTAL NERVE, MULTIPLE (WRVU 1.68) performed by Jose Alvarez MD at [facility] MAIN OR PRO THORACOSCOPY WITH BIOPSY OF PLEURA Right 10/24/2019 THORACOSCOPY; WITH BIOPSY(IES) OF PLEURA (WRVU 4.58) performed by Jose Alvarez MD at [facility] MAIN OR PRO THORACOTOMY WITH THERAPEUTIC WEDGE RESECTION EA ADDL Right 10/24/2019 @THORACOTOMY; W/THERAPEUTIC WEDGE RESECTION, EA ADD'L RESC, IPSILATERAL (WRVU 3) performed by Jose lAvarez MD at [facility] MAIN OR PRO THORACOTOMY WITH THERAPEUTIC WEDGE RESECTION INITIAL Right 10/24/2019 @THORACOTOMY; W/ THERAPEUTIC WEDGE RESECTION , INITIAL (WRVU 15.75) performed by Jose Alvarez MD at [facility] MAIN OR PRO THYMECTOMY, RADICAL MEDIAST DISSSEC Right 10/24/2019 @THYMECTOMY W/ RAD. MEDIASTINAL DISSECTION (WRVU 23.48) performed by Jsoe Alvarez MD at [facility] MAIN OR ROS: Full 12-Point ROS reviewed and negative except noted in HPI Vitals: Temp: [36.9 ??C (98.4 ??F)] Heart Rate: [94-101] Resp: [16] BP: (129-154)/(83-94) SpO2: [97 %-99 %] Heart Rate from SpO2: [94 bpm] Wt & BMI By Encounter Date Flowsheet Row ED from 03/17/2023 in Emergency Department [facility] Office Visit from 03/14/2023 in Thoracic Surgery at [facility] Weight 79.4 kg (175 lb) 1 03/17/2023 [...] who have questions please contact the health residential caregiver that requested your imaging first. Micro: Microbiology Results (last 7 days) Procedure Component Value - Date/Time Body Fluid Culture, Aerobic & Anaerobic Fluid [[id number]] (Abnormal) Collected: 03/17/231144 Lab Status: Preliminary result Specimen: Fluid Updated: 03/17/231334 Body Fluid Culture, Aerobic [[id number]] (Abnormal) Collected: 03/17/231144 Lab Status: Preliminary result [...] Rodriguez MD 03/17/2023 Thoracic Surgery Service Pager [phone] PROCEDURE NOTE: INCISION & DRAINAGE After obtaining [...] SpO2: 99 % [03/17/23955] O2 Device: RA [03/17/23 0956] O2 Flow Rate (L/min): n/a Physical Exam [...] Notes * Plan of Care - Gabe Curiel, EVER - 03/20/2023 6:10 AM EST A&Ox4, cooperative w/ care. VSS, RA. Pt reporting mild incisional pain, medicated per MAR. OOB independently to BR, continent. IV abx [...] Component Value Date COVID19 Not Detected 10/21/2019 [id number] Not Detected 12/08/2019 Past medical History: No past medical history on file. Hospitalizations Within the Past 30 Days: no previous admission in last 30 days Current Decision-Making Capacity: Self If AD's have not been completed the following surrogate would be surrogate decision maker per [place] decision making law. (Only good for 180 days) Any patient receiving care in [place] must abide by [place] law. The hierarchy for surrogate decision making [...] (i) The agent with financial power of tester/lift trucker or a conservator appointed in accordance with [...] Current DME: none Home Address confirmed as: [address] [place] [id number] Social & Family Supports: All names listed below confirmed with patient as current and correct Extended Emergency Contact Information Primary Emergency Contact: Lillian Tyson Address: [address] [place] [id number] [place] [address] Mobile Relation: Spouse Current Care Provided by: [...] Coverage: Primary Insurance: AARP MANAGED MEDICARE Payor: AAR MANAGED MEDICARE / Plan: [facility] MANAGED MEDICARE COMPLETE / Product Type: *No Product type* / Secondary Insurance: N/A ; Prescription Coverage: Yes Preferred Pharmacy: [id number] - [place], [place] - [address] [place], [place] [address]RO[address] [facility] [address] [facility] [address] [facility] [address] [place] [address] [facility] - [place], [place] - [address] [facility] [address] [place] [address] [place] Status: Patient is a : No Primary Care Provider confirmed: Christiana Moore APRN [phone] Patient/Caregiver Goals of Treatment: discharge home Potential Needs for Transition of Care: home health care Agency Referrals: I have met with the patient to: discuss discharge planning needs. provide the [facility], Office of Care Management letter from the [employer] Deployment Lead pertaining to rehab referrals. provide a letter describing our affiliations within the [facility] and educate about their right to choose where referrals are sent. provide a list of Home Health Agencies / Durable Medical Equipment vendors which serve their preferred geographic area. provided patient with [facility] Star Quality Rating handout. They have requested referrals to: [facility] [address] [place] [address] KATELYN: 03/20/2023 Note routed to a Manager Travel who will communicate referrals to facilities and [...] of care planning. Angela Rock RN-BSN-CM Pager: [phone] * Plan of Care - Cindy Bonilla [...] Brief Operative Note Patient Name: Tree Lantigua DOB: [id number] MR#: [id number] Case Date: 03/18/2023 Surgeon: Surgeon(s) and Role: [...] Alvarez MD - 03/18/2023 8:10 AM EST [facility] Operative Note Patient Name: Tree Lantigua : [id number] MR#: [id number] Case Date: 03/18/2023 Surgeon: Surgeon(s) and Role: [...] MD * Plan of Care - Gabe Curiel, RN - 03/18/2023 5:55 AM EST A&Ox4, [...] 8:20 AM EST I&D Hematoma Seroma/Fluid Collection ([id number]) 03/18/2023 7:55 AM EST abscess old thoracotomy [...] AM EST 03/18/2023 8:21 AM EST Narrative [facility] - 03/18/2023 8:21 AM EST Specimen requisition ordered. ??Separate Pathology report to follow Joes Alvarez MD PATHOLOGY/CYTOLOGY O RDERABLES [facility] [place] [address] * Surgical Pathology Report (03/18/2023 8:20 AM EST) Final Diagnosis [id number] ? Location: L4WD; 0409; A The signing [...] MD Verified: ??03/26/2023 10:34 ??Pathologist Performed at: ??-[facility] Dept. of Pathology, [place] [address] [employer] Deployment Lead: Tunde Smyth MD, [facility], ??CLIA Certificate: [id number] SPECIMEN(S) SUBMITTED A - Skin and soft tissue, right posterior chest wall, debridement (1) CLINICAL INFORMATION Abscess old thoracotomy wound SPECIMEN PROCESSING A - Labeled/Fixative : Debridement right posterior chest wall, fresh. Quantity/Size: Single, 5.2 x 2.3 x 1.0 cm. Tissue Description: Grossman-bean, wrinkled skin ellipse with underlying bean, dull and rubbery subcutaneous tissue. Sections/Process ing: Well Puller sections in 1 cassette labeled A1. ??jnr 03/26/2023 10:34 AM EST [facility] SPECIMEN FROM UNSPECIFIED BODY SITE / Unknown 03/18/2023 8:20 AM EST 03/18/2023 8:20 AM EST Jose Alvarez MD PATHOLOGY/CYTOLOGY O RDERABLES [facility] [address] [place] [address] * (ABNORMAL) Body Fluid Culture, Aerobic (03/17/2023 11:45 AM EST) Body Fluid Culture Many Staphylococcus aureus(A) [facility] Gram Stain Many Neutrophils seen Many Gram Positive Cocci seen (A) [facility] Organism Staphylococcus aureus(A) [facility] Organism Gram Positive Cocci(A) [facility] Fluid 03/17/2023 11:4 5 AM EST 03/17/2023 12:46 PM EST Comment:Abscess Narrative Resulting Agency Comment Spec In Lab Organism Antibiotic Method Susceptibility Staphylococcus aureus Clindamycin VITEK 2 METHOD Sensitive Staphylococcus aureus Erythromycin VITEK 2 METHOD Sensitive Staphylococcus aureus Gentamicin VITEK 2 METHOD Sensitive Comment:Gentamicin i s not appropriate for [place]-therapy. Staphylococcus aureus Oxacillin VITEK 2 METHOD Sensitive [...] - GENER AL ORDERABLES Performing Organization Address [facility]/ZIP Co de Phone Number [facility] [place] [address] * L-Lactate2 Whole Blood (03/17/2023 11:13 AM EST) Lactate WB 1.5 0.5 - 2.2 mmol/L [facility] Blood 03/17/2023 11:1 3 AM EST 03/17/2023 11:13 AM EST Jose Alvarez MD CHEMISTRY ORDERABLES Performing Organization Address [facility] de Phone Number [facility] [place] [address] * Differential, Automated (03/17/2023 11:06 AM EST) Neutrophil % 74.9 % [facility] Neutrophil Absolute 5.59 1.70 - 6.10 x10(3)/[facility] LAB[facility] Lymph % 15.7 % [facility] Lymphocytes Abs 1.2 0.9 - 3.2 x10(3)/[facility] LABORATORY Monocyte % 7.9 % [facility] Monocyte Abs 0.6 0.3 - 0.9 x10(3)/[facility] LABORATORY Eos % 0.3 % [facility] Eosinophils Abs 0.0 0.0 - 0.4 x10(3)/[facility] LABORATORY Basophil % 0.8 % [facility] Baso Absolute 0.1 0.0 - 0.1 x10(3)/[facility]ATORY Immature Gran % 0.40 % [facility] Comment: Immature granulocytes(IG's)percentage and absolute count will include metamyelocytes, myelocytes, and promyelocytes. Blood smears from CBCs yielding IG's will be scanned manually for concordance. If this scan disagrees with the automated IG or if promyelocytes are noted, a manual differential will be performed. Immature Gran Absolute 0.03 0.00 - 0.04 x10(3)/[facility] Blood 03/17/2023 11:0 6 AM EST 03/17/2023 11:14 AM EST Narrative Resulting Agency Comment Spec In Lab Becca Tovar MD HEMATOLOGY ORDERABLE S Performing Organization Address City/State/[facility] Co de Phone Number [facility] [place] [address] * (ABNORMAL) Hemogram (03/17/2023 11:06 AM EST) White Blood Cell 7.5 4.0 - 9.5 x10(3)/mc L [facility] Red Blood Cell 6.86(H) 4.58 - 5.54 x10(6)/mc L [facility] Hemoglobin 13.9 13.7 - 16.5 g/dL [facility] Hematocrit 46.0 40.5 - 48.5 % [facility] Mean Cell Volume 67.1(L) 82.9 - 93.[address] [facility] Mean Cell Hemoglobin 20.3(L) 27.5 - 32.[address] [facility] Mean Cell Hemoglobin Concentration 30.2(L) 32.0 - 35.7 g/dL [facility] Platelet 302 145 - 357 x10(3)/mc L [facility] RDW Standard Deviation 37.2 36.0 - 45.[address] [facility] RDW coefficient of variation 17.3(H) 11.4 - 13.8 % [facility] Mean Platelet Volume 9.8 7.6 - 12.9 fL [facility] NRBC% auto 0.0 % [facility] NRBC Absolute 0.000 0.000 - 0.000 x10(3)/mc L [facility] Blood 03/17/2023 11:0 6 AM EST 03/17/2023 11:14 AM EST Narrative Resulting Agency Comment Spec In Lab Becca Tovar MD HEMATOLOGY ORDERABLE S Performing Organization Address City/[facility]/ZIP Co de Phone Number [facility] [place] [address] * (ABNORMAL) Sedimentation rate (03/17/2023 11:06 AM EST) Sedimentation Rate Automated >119(H) 2 - 37 mm/hr [facility] Comment: Effective March 19, 2019 new capillary photometric technology has resulted in a change in reference ranges. It is recommended that each ESR result be reviewed with its own age appropriate reference range. Blood 03/17/2023 11:0 6 AM EST 03/17/2023 11:14 AM EST Narrative Resulting Agency Comment Spec In Lab Jose Alvarez MD HEMATOLOGY ORDERABLE S Performing Organization Address [facility] Co de Phone Number [facility] [place] [address] * (ABNORMAL) CRP, acute inflammation (03/17/2023 11:06 AM EST) C-Reactive Protein 112.8(H) <=4.9 mg/L [facility] Blood 03/17/2023 11:0 6 AM EST 03/17/2023 11:14 AM EST Narrative Resulting Agency Comment Spec In Lab Jose Alvarez MD CHEMISTRY ORDERABLES Performing Organization Address City/[facility] Co de Phone Number [facility] [place] [address] * Basic Metabolic Panel (non-fasting) (03/17/2023 11:06 AM EST) Glucose 93 65 - 199 mg/dL [facility] Comment:Diabetes: >=200 mg/d L plus symptoms Blood Urea Nitrogen 12 10 - 20 mg/dL [facility] Creatinine 0.99 0.80 - 1.50 mg/dL [facility] Sodium 136 135 - 145 mmol/L [facility] Potassium 4.3 3.5 - 5.0 mmol/L [facility] Comment: Please note: ??Patients with WBC >100,000 may have falsely elevated Potassium levels. ??For accurate Potassium quantification in these patients send serum separator tube (gold top) for subsequent determinations. ??Contact the Clinical Chemistry Laboratory if there are any questions. Chloride 100 98 - 107 mmol/L [facility] Carbon Dioxide 22 22 - 31 mmol/L [facility] Anion Gap 14 5 - 15 mmol/L [facility] Calcium 9.5 8.5 - 10.5 mg/dL [facility] Est Glomerular Filtration Rate 83 >=60 mL/min/1. 73 m?? [facility] Comment: This patient's estimated [...] In Lab Jose Alvarez MD CHEMISTRY ORDERABLES [facility] [place] [address] documented in this encounter Visit Diagnoses Not on filedocumented in this encounter Admitting Diagnoses Diagnosis Complicated [...] Given 03/19/2023 11:23 PM EST 975 mg BUpivacaine (Sensorcaine) (2.5 mg/mL) 0.25% injection PRN, Starting on 03/18/23 at 0815, Until Sun03/20/23 at 1420, Intra-Operative (Intra-Procedure), Routine Given 03/18/2023 8:15 AM EST 22 mLs 20-Other (document i n comment section) lidocaine (Xylocaine) 1% (10 mg/mL) injection 3 [...] Given 03/17/2023 12:28 PM EST 5 mg senna (Senokot) tablet 17.2 mg 17.2 mg, Oral, EVERY EVENING, First dose on 03/18/23 at 1700, Until Discontinued, Routine Given 03/19/2023 4:08 PM EST 17.2 mg Given 03/18/2023 4:14 PM EST 17.2 mg sodium chloride 0.9 % (flush) (BD PosiFlush Normal Saline 0.9) flush 5 mL 5 mL, Intravenous, 2 TIMES DAILY, First dose on 03/17/23 at 2215, Until Discontinued, Recovery (Recovery-Hospital Unit), Routine Given 03/20/2023 8:11 AM EST 5 mLs Given 03/19/2023 8:00 PM EST 5 mLs Given 03/19/2023 9:12 AM EST 5 mLs sodium chloride 0.9 % (flush) (BD PosiFlush Normal Saline 0.9) flush 5-20 mL 5-20 mL, Intravenous, EVERY 1 MIN PRN, Starting on 03/17/23 at 2123, Until 03/20/23 at 1420, flush, Flush pertains to all indwelling lines. Flush per protocol found in the job aid using the link provided on this medication record., Recovery (Recovery-Hospital Unit), Routine sulfamethoxazole-trimethoprim DS (Bactrim DS) 800-160 mg per tablet 1 tablet 1 tablet, Oral, EVERY 12 HOURS SCHEDULED (2 times per day), First dose on Sun03/20/23 at 0900, Until Discontinued, Routine, Indication for (Active or Suspected): Other (See comment) Given 03/20/2023 8:11 AM EST 1 tablet documented in this encounter Active and Recently [...] Gabe Curiel RN)1100 (Given - Provider: Pily Greenwood, EVER) ampicillin-sulbactam (Unasyn) 1.5 g vial attach to sodium chloride 0.9% 50 mL Mini-Bag Plus (CANCELED) 1.5 g, Intravenous, EVERY 6 HOURS, First dose on Sun03/19/23 at 0900, Until Discontinued, Administer over 15 Minutes, Warning Vesicant/Irritant Medication , Indication for (Active or Suspected): Skin/Skin Structure 0820 (New Bag - Provider: Madison Adam RN)0835 (Stopped - Provider: Madison Adam RN)1444 (New Bag - Provider: Madison Adam RN)1459 (Stopped - Provider: Madison Adam RN)2000 (New Bag - Provider: Gabe Curiel RN)2016 (Stopped - Provider: Gabe Curiel RN) 024 (New Bag - Provider: Gabe Curiel RN)0258 (Stopped - Provider: Gabe Curiel RN) heparin (porcine) (5,000 units/1 mL) subcutaneous injection 5,000 Units (COMPLETED) 5,000 Units, Subcutaneous, TRIPE SCRAPER TO O.R., 1 dose, On Sun03/18/23 at 0830, Please administer programmer operator numerical control to OR, prior to procedure, thank you, STAT 0754 (JUN Hold - Provider: Admin Adt - Reason: Transfer to a Procedural area)0815 (Given - Provider: Camilla Cruz CRNA - Comment: Right arm. PSR)0816 ([facility] Unhold - Provider: Camilla Cruz CRNA)0830 (Due) ketorolac (Toradol) (15 mg/mL) injection 15 mg () 15 mg, Intravenous, EVERY 8 HOURS SCHEDULED, 6 doses, First dose on Sun03/17/23 at 2215, Last dose on Sun03/19/23 at 1400, Recovery (Recovery-Hospital Unit), Routine 0549 (Given - Provider: Gabe Curiel RN)1407 (Given - Provider: Madison Adam RN)2143 (Given - Provider: Cindy Bonilla RN) 0521 (Given - Provider: Cindy Bonilla RN)1323 (Given - Provider: Madison Adam RN) [...] Structure 0043 (New Bag - Provider: Gabe Curiel RN)0443 (Stopped - Provider: Gabe Curiel RN)0754 [...] Cindy Bonilla RN)0453 (Stopped - Provider: Cindy Bonilla RN) senna (Senokot) tablet 17.2 mg 17.2 mg, Oral, EVERY EVENING, First dose on 03/18/23 at 1700, Until Discontinued, Routine 0754 (JUN [...] on 03/17/23 at 1058, Until Discontinued, Routine 0754 (JUN Hold - Provider: Admin Adt - Reason: Transfer to a Procedural area)0900 (Automatically Held - Provider: Admin Adt)0922 (MAR Unhold - Provider: Admin Adt)0942 (Given - Provider: Madison Adam RN)2143 (Given - Provider: Cindy Bonilla, EVER) 911 (Given - Provider: Madison Adam RN) sodium chloride 0.9 % (flush) (BD PosiFlush Normal Saline 0.9) flush 5 mL 5 mL, Intravenous, 2 TIMES DAILY, First dose on Sun03/17/23 at 2215, Until Discontinued, Recovery (Recovery-Hospital Unit), Routine 941 (Given - Provider: Madison Adam RN)2142 (Given - Provider: Cindy Bonilla RN) 911 (Given - Provider: Madison Adam RN)1999 (Given - Provider: Gabe Curiel RN) 810 (Given - Provider: Pily Greenwood RN) sulfamethoxazole-trimet hoprim DS (Bactrim DS) 800-160 mg per tablet 1 tablet 1 tablet, Oral, EVERY 12 HOURS SCHEDULED (2 times per day), First dose on Sun03/20/23 at 0900, Until Discontinued, Routine, Indication for (Active or Suspected): Other (See comment) 810 (Given - Provider: Pily Greenwood RN) vancomycin [...] an associated drug lab level. Please see [facility] for scheduled level. Warning Vesicant/Irritant Medication , Routine 0548 (New Bag - Provider: Gabe Curiel RN)0658 (Stopped - Provider: Cindy Bonilla RN - Comment: Time automatically adjusted from order [...] Routine documented in this encounter Care Teams Hotel Front Office Manager Relationship Specialty Start Date End Date Christiana Moore APRN [address] [place] [address] PCP - General Family Medicine 09/26/19 documented as of this encounter
--- OUTSIDE RECORDS SUMMARY | 2023-11-12 02:15 | XMS_ITS | Encounter Summary ---
Author Organization Formerly [facility] [place] [address] Care Team Providers Care Fast Foods Worker Name Role Phone OscarChristiana RYAN Primary Care Provider [phone] Reason for Visit * Auth/Cert Specialty Diagnoses / Procedures Referred By Contac t Referred To Contact Diagnoses Complicated wound infection Procedures ER Quentin Arrieta MD [facility] [place] [address] [facility] Referral ID Status Reason Start Date Expiration Date Visits Re quested Visits Authorized [id number] 1 1 Encounter Details Date Type Department Care Team (Late st Contact Info) Description 03/18/2023 7:55 AM EST Anesthesia [place] [address] Sera Capone MD [facility] [place] [address] Camilla Cruz CRNA [facility] [place] [address] Anesthesia Record Procedure Summary Procedure Name Responsible Anesthesiologist Anesthesia Start Time Anesthesia Stop Time INCISION & DRAINAGE HEMATOMA, SEROMA OR FLD. COLLECTION, TRUNK (WRVU 1.58) (Right: Trunk) Sera Capone MD 03/18/23 0755 03/18/23 0841 Events Date Time Event Comment 03/18/2023 0752 0755 AN Verify 0755 Start 0755 An Start Data 0804 Anesthesia Ready 0810 Procedure Start 0834 an stop data 0837 Recovery or ICU Handoff Romi ent care was transferred to the destination unit staff after review of the patient's medical history, current anesthetic/surgical status and plan, according to the Provider Handoff Checklist. 0841 Stop Meds Name Total IV Lidocaine 40 mg Propofol 110 mg Propofol INF 250.11 mg piperacillin-tazobactam (Zos yn) 3.375 g vial attach to sodium chloride 0.9% 50 mL Mini-Bag Plus 3.375 g heparin (porcine) (5,000 units/1 mL) sub cutaneous injection 5,000 Units 5,000 Units dexmedeTOMIDine 12 mcg PHENYLephrine 240 mcg lactated ringers 200 mL * Agents Name O2 Air N2O O2 Auxiliary Flowmeter 2 * Blood No blood administrations on file. Lines, Drains, and Airways Type Details Placement Removal Incision 03/18/23; 0805; Righ t, posterior; mid axillary 03/18/23 0805 by Yumiko Rodriguez RN NPWT 11/12/19; 1100; back ; Incisional Wound Vac per thoracic team; LDA not present upon assessment; 03/18/23; 0837 11/12/19 1100 by Flakita Castro RN 03/18/23 0837 by Yumiko Rodriguez RN NPWT 12/09/19; chest; LDA not present upon assessment; 03/18/23; 0736 12/09/19 0000 by Janessa Campbell RN 03/18/23 0736 by Yumiko Rodriguez RN PIV 03/17/23; 1107; paeb-rvs-vrvyko catheter system; 20 gauge; median cubital vein (antecubital fossa), right; Anatomical Landmarks; LDA not present upon assessment; 03/20/23; 1152 03/17/23 1107 by Wiliam Espinosa RN 03/20/23 1152 by Pily Greenwood RN documented in this encounter Social History Tobacco Use Types Packs/Day Years Used Date Smoking Tobacco: Never Smokeless Tobacco: Never Alcohol Use Standard Drinks/Week Comments Yes 2 (1 standard drink = 0.6 oz pur e alcohol) Sex and Gender Information Value Date Recorded Sex Assigned at Not on file Gender Identity Not on file Sexual Orientation Not on file documented as of this encounter OR Notes * Anesthesia Postprocedure Evaluation - Sera Capone MD - 03/18/2023 9:31 AM EST Department of Anesthesiology Post-procedure Note Patient: Tree Lantigua Procedure Summary Date: 03/18/23 Room / Location: [facility] OR [address] [place] [address] MAIN OR Anesthesia Start: 0755 Anesthesia Stop: 08 Procedure: INCISION & DRAINAGE HEMATOMA, SEROMA OR FLD. COLLECTION, TRUNK (WRVU 1.58) (Right: Trunk) Diagnosis: (abscess old thoracotomy wound) Surgeons: Quentin Carlin MD Responsible Provider: Sera Capone MD Anesthesia Type: MAC ASA Status: 3 - Emergent All Anesthesia Providers: Anesthesiologist: Sera Capone MD BEAN ROASTER: Camilla Cruz CRNA Vitals Value Taken Time BP 110/72 03/18/23 0915 Temp 36.6 ??C (97.9 ??F) 03/18/23 0915 Pulse 59 03/18/23 0901 Resp 16 03/18/23 0915 SpO2 97 % 03/18/23 0917 Pain Level 0 03/18/23 0915 Vitals shown include unfiled device data. Patient Location: PACU/[facility] Level of Consciousness: Awake and Alert Pain Management: Satisfactory Analgesia PONV: None Cardiovascular Status: At Baseline Respiratory Status: At Baseline and Room Air Postoperative Fluid Status: Intravascular EUvolemia Possible Anesthetic Complications: NONE apparent at time of evaluation Final Primary Anesthesia Type: MAC (The anesthetic type performed was the same as planned.) Comments: * Anesthesia Preprocedure Evaluation - Sera Capone MD - 03/18/2023 7:43 AM EST Pre-Anesthesia Evaluation for: Tree Lantigua a 67 y.o. male. Procedure(s): INCISION & DRAINAGE HEMATOMA, SEROMA OR FLD. COLLECTION, TRUNK (WRVU 1.58) Patient Active Problem List Diagnosis Date Noted *Complicated wound infection 03/17/2023 Open wound of right chest wall with complication 12/08/2019 Chest wall abscess 11/09/2019 Type A malignant thymoma 10/07/2019 No past medical history on file. Past Surgical History: Procedure Laterality Date PRO BRONCHOSCOPY, DIAGNOSTIC N/A 10/24/2019 BRONCHOSCOPY, DIAGNOSTIC (WRVU 2.78) performed by Quentin Carlin MD at [facility] MAIN OR PRO DEBRIDEMENT MUSCLE AND FASCIA 20 SQ CM/< Right 12/09/2019 DEBRIDEMENT SKIN, SUBCU, MUSCLE, THORAX (WRVU 2.7) performed by Michael Li MD at [facility] MAIN OR PRO I&D HEMATOMA SEROMA/FLUID COLLECTION Right 11/09/2019 INCISION & DRAINAGE HEMATOMA, SEROMA OR FLD. COLLECTION, CHEST (WRVU 1.58) performed by Piyush Hobbs MD at [facility] MAIN OR PRO INCISION AND DRAINAGE COMPLEX POST OPERATIVE WOUND INFECTION Right 12/09/2019 INCISION & DRAINAGE COMPLEX POSTOPERATIVE WOUND INFECTION (WRVU 2.3) performed by Michael Li MD at [facility] MAIN OR PRO INJECTION ANES AGENT &/ STEROID INTERCOSTAL NERVE EA ADDL LEVEL Right 10/24/2019 NERVE BLOCK, INTERCOSTAL NERVE, MULTIPLE (WRVU 1.68) performed by Quentin Carlin MD at [facility] MAIN OR PRO THORACOSCOPY WITH BIOPSY OF PLEURA Right 10/24/2019 THORACOSCOPY; WITH BIOPSY(IES) OF PLEURA (WRVU 4.58) performed by Quentin Carlin MD at [facility] MAIN OR PRO THORACOTOMY WITH THERAPEUTIC WEDGE RESECTION EA ADDL Right 10/24/2019 @THORACOTOMY; W/THERAPEUTIC WEDGE RESECTION, EA ADD'L RESC, IPSILATERAL (WRVU 3) performed by Quentin Carlin MD at [facility] MAIN OR PRO THORACOTOMY WITH THERAPEUTIC WEDGE RESECTION INITIAL Right 10/24/2019 @THORACOTOMY; W/ THERAPEUTIC WEDGE RESECTION , INITIAL (WRVU 15.75) performed by Quentin Carlin MD at [facility] MAIN OR PRO THYMECTOMY, RADICAL MEDIAST DISSSEC Right 10/24/2019 @THYMECTOMY W/ RAD. MEDIASTINAL DISSECTION (WRVU 23.48) performed by Quentin Carlin MD at [facility] MAIN OR Social History Tobacco Use Smoking status: Never Smokeless tobacco: Never Substance Use Topics Alcohol use: Yes Alcohol/week: 2.0 standard drinks of alcohol Types: 1 Glasses of wine, 1 Cans of beer per week Social History Substance and Sexual Activity Drug Use Never Allergies Allergen Reactions Wasp Venom Medications: MAR and/or home medications have been reviewed. Physical Exam: Preprocedure Vitals Current as of 03/18/23 0743 BP: 127/81 Pulse: Resp: SpO2: 96 Temp: 36.4 ??C (97.5 ??F) Height: Weight: 79.4 kg (175 lb) (03/17/23) BMI: IBW: Last edited 03/18/23 0734 by Airway Assessment: Mallampati: II TM distance: >3 FB Neck ROM: full Cardiovascular Assessment: system normal Pulmonary Assessment: unlabored breathing Dental Assessment: - normal exam Misc Assessment: IV access: Peripheral line Last Filed Perioperative Cognitive Screening None I personally evaluated, examined, and interviewed this patient, and reviewed relevant information in the electronic medical record. 67 year old male with complex wound infection of prior thoracotomy site who presents for I and D. Functional status: >4 METs NPO: Appropriate Personal or family history of anesthetic complications: Denies Prior anesthetic information: Numerous prior general anesthetics with need for VL. Relevant imaging, history, labs reviewed. Anesthesia Plan: ASA 3 emergent MAC, with a(n) intravenous induction Region - Other Informed Consent: Anesthetic plan and risks discussed with patient. Plan discussed with BEAN ROASTER and attending. Anesthesia Screening Code Status: Full code I discussed the risks of general anesthesia/MAC as detailed by the preoperative anesthesia consent with this patient. The patient demonstrated adequate understanding and acknowledged these risks and wishes to proceed with scheduled surgery. All questions related to anesthetic care were welcomed and answered to satisfaction. Sera Capone MD MS Anesthesiologist, [facility] Pager [phone] documented in this encounter Plan of Treatment Not on file documented as of this encounter Visit Diagnoses Not on filedocumented in this encounter Administered Medications Inactive Administered Medications - up to 3 most recent administrations Medication Order MAR Action Action Date Dose Rate Site dexmedeTOMIDine (Precedex) (4 mcg/mL) bolus injection (Anesthsia) Intravenous, PRN, Starting on 03/18/23 at 0804, Until 03/18/23 at 0842, Anesthesia Intra-op, Routine Given 03/18/2023 8:10 AM EST 8 mcg Given 03/18/2023 8:04 AM EST 4 mcg heparin (porcine) (5,000 units/1 mL) subcutaneous injection 5,000 Units 5,000 Units, Subcutaneous, UNDERWATER HUNTER TRAPPER TO O.R., 1 dose, On 03/18/23 at 0830, Please administer supervisor cutting and boning to OR, prior to procedure, thank you, STAT Given 03/18/2023 8:15 AM EST 5,000 Units lactated ringers infusion Intravenous, CONTINUOUS PRN, Starting on 03/18/23 at 0759, Until 03/18/23 at 0842, Anesthesia Intra-op New Bag 03/18/2023 7:59 AM EST lidocaine (pf) (Xylocaine) (20 mg/mL) 2% injection syringe Intravenous, PRN, Starting on 03/18/23 at 0804, Until 03/18/23 at 0842, Anesthesia Intra-op, Routine Given 03/18/2023 8:04 AM EST 40 mg PHENYLephrine in NS (PF) (NAVARRO-SYNEPHRINE) 0.8 mg/10 mL (80 mcg/mL) multi-dose injection Syringe Intravenous, PRN, Starting on 03/18/23 at 0820, Until 03/18/23 at 0842, Anesthesia Intra-op, Routine Given 03/18/2023 8:30 AM EST 80 mcg Given 03/18/2023 8:24 AM EST 80 mcg Given 03/18/2023 8:20 AM EST 80 mcg piperacillin-tazobactam (Zosyn) 3.375 g vial attach to [...] 9:34 AM EST 3.375 g 12.5 mL/hr propofoL (Diprivan) (10 mg/mL) infusion Intravenous, CONTINUOUS PRN, Starting on 03/18/23 at 0804, Until 03/18/23 at 0842, Anesthesia Intra-op, Routine Rate/Dose Change 03/18/2023 8:10 AM EST 150 mcg/kg/min 71.46 mL/hr New Bag 03/18/2023 8:04 AM EST 50 mcg/kg/min 23.82 mL/h r propofoL (Diprivan) 10 mg/mL bolus injection (Anesthesia) Intravenous, PRN, Starting on 03/18/23 at 0804, Until 03/18/23 at 0842, Anesthesia Intra-op Given 03/18/2023 8:10 AM EST 50 mg Given 03/18/2023 8:04 AM EST 60 mg documented in this encounter Care Teams Fast Foods Worker Relationship Specialty Start Date End Date Christiana Moore APRN [address] [place] [address] PCP - General Family Medicine 09/26/19 documented as of this encounter
--- OUTSIDE RECORDS SUMMARY | 2023-11-12 02:15 | XMS_ITS | Encounter Summary ---
Author Organization [facility] [place] [address] Care Team Providers Care Restorative Coordinator Name Role Phone Christiana Moore RYAN Primary Care Provider [phone] Reason for Visit * Auth/Cert Specialty Diagnoses / Procedures Referred By Contac t Referred To Contact Diagnoses Complicated wound infection Procedures ER Quentin Arrieta MD [facility] [place] [address] [facility] Referral ID Status Reason Start Date Expiration Date Visits Re quested Visits Authorized [id number] 1 1 Encounter Details Date Type Department Care Team (Latest Contact Info) Description 03/14/2023 1:00 PM EST Laboratory Appointment Lab [address] [place] [id number] Chest wall abscess Social History Tobacco Use Types Packs/Day Years [...] Procedure Name Priority Date/Time Associated Diagnosis Comments SCAN, PERIPHERAL BLOOD Routine 03/14/2023 1:00 PM EST HEMOGRAM Routine 03/14/2023 1:00 PM EST Chest wall abscess DIFFERENTIAL, AUTOMATED Routine 03/14/2023 1:00 PM EST Chest wall abscess CBC (WITH DIFF) Routine 03/14/2023 1:00 PM EST Chest wall abscess BASIC METABOLIC PANEL Routine 03/14/2023 1:00 PM EST Chest wall abscess documented in this encounter Results * Scan, Peripheral Blood (03/14/2023 1:00 PM EST) Plat estimate Normal [facility] RBC Morphology Abnormal [facility] Microcyte 1-5 /HPF [facility] Ovalocytes 1-5 /HPF [facility] Blood 03/14/2023 1:00 PM EST 03/14/2023 1:13 PM EST Narrative Resulting Agency Comment Spec In Lab Quentin Carlin MD HEMATOLOGY ORDERABLE S [facility] [place] [address] * (ABNORMAL) Differential, Automated (03/14/2023 1:00 PM EST) Neutrophil % 79.9 % [facility] Neutrophil Absolute 8.57(H) 1.70 - 6.10 x10(3)/mc L [facility] Lymph % 10.6 % [facility] Lymphocytes Abs 1.1 0.9 - 3.2 x10(3)/mc L [facility] Monocyte % 8.0 % [facility] Monocyte Abs 0.9 0.3 - 0.9 x10(3)/mc L [facility] Eos % 0.4 % [facility] Eosinophils Abs 0.0 0.0 - 0.4 x10(3)/mc L [facility] Basophil % 0.5 % [facility] Baso Absolute 0.0 0.0 - 0.1 x10(3)/mc L [facility] Immature Gran % 0.60 % [facility] Comment: Immature granulocytes(IG's)percentage and absolute count will include metamyelocytes, myelocytes, and promyelocytes. Blood smears from CBCs yielding IG's will be scanned manually for concordance. If this scan disagrees with the automated IG or if promyelocytes are noted, a manual differential will be performed. Immature Gran Absolute 0.06(H) 0.00 - 0.04 x10(3)/mc L [facility] Blood 03/14/2023 1:00 PM EST 03/14/2023 1:13 PM EST Narrative Resulting Agency Comment Spec In Lab Quentin Carlin MD HEMATOLOGY ORDERABLE S [facility] [place] [address] * (ABNORMAL) Hemogram (03/14/2023 1:00 PM EST) White Blood Cell 10.7(H) 4.0 - 9.5 x10(3)/mc L [facility] Red Blood Cell 6.63(H) 4.58 - 5.54 x10(6)/mc L [facility] Hemoglobin 13.6(L) 13.7 - 16.5 g/dL [facility] Hematocrit 44.6 40.5 - 48.5 % [facility] Mean Cell Volume 67.3(L) 82.9 - 93.1 fL [facility] Mean Cell Hemoglobin 20.5(L) 27.5 - 32.1 pg [facility] Mean Cell Hemoglobin Concentration 30.5(L) 32.0 - 35.7 g/dL [facility] Platelet 282 145 - 357 x10(3)/mc L [facility] RDW Standard Deviation 38.1 36.0 - 45.0 fL [facility] RDW coefficient of variation 17.7(H) 11.4 - 13.8 % [facility] Mean Platelet Volume 9.8 7.6 - 12.9 fL [facility] NRBC% auto 0.0 % [facility] NRBC Absolute 0.000 0.000 - 0.000 x10(3)/mc L [facility] Blood 03/14/2023 1:00 PM EST 03/14/2023 1:13 PM EST Narrative Resulting Agency Comment Spec In Lab Quentin Carlin MD HEMATOLOGY ORDERABLE S Performing Organization Address [facility] Co de Phone Number [facility] [place] [address] * Basic Metabolic Panel (non-fasting) (03/14/2023 1:00 PM EST) Glucose 118 65 - 199 mg/dL [facility] Comment:Diabetes: >=200 mg/d L plus symptoms Blood Urea Nitrogen 13 10 - 20 mg/dL [facility] Creatinine 0.98 0.80 - 1.50 mg/dL [facility] Sodium 138 135 - 145 mmol/L [facility] Potassium 4.5 3.5 - 5.0 mmol/L [facility] Comment: Please note: ??Patients with WBC >100,000 may have falsely elevated Potassium levels. ??For accurate Potassium quantification in these patients send serum separator tube (gold top) for subsequent determinations. ??Contact the Clinical Chemistry Laboratory if there are any questions. Chloride 101 98 - 107 mmol/L [facility] Carbon Dioxide 26 22 - 31 mmol/L [facility] Anion Gap 11 5 - 15 mmol/L [facility] Calcium 9.5 8.5 - 10.5 mg/dL [facility] Est Glomerular Filtration Rate 84 >=60 mL/min/1. 73 m?? [facility] Comment: This patient's estimated GFR was [...] In Lab Quentin Carlin MD CHEMISTRY ORDERABLES Performing Organization Address City/[facility]/ZIP Co de Phone Number [facility] [place] [address] documented in this encounter Visit Diagnoses Diagnosis Chest wall abscess Cellulitis and abscess of trunk documented in this encounter Care Teams Restorative Coordinator Relationship Specialty Start Date End Date Christiana Moore APRN [address] [place] [address] PCP - General Family Medicine 09/26/19 documented as of this encounter
--- OUTSIDE RECORDS SUMMARY | 2023-11-12 02:15 | XMS_ITS | Encounter Summary ---
[place] [address] Care Team Providers Care Softball Player Name Role Phone Christiana Moore APRN Primary Care Provider [phone] Encounter Details Date Type Department Care Team (Late st Contact Info) Description 10/18/2021 12:15 PM EDT Laboratory Appointment Lab [address] [place] [id number] Social History Tobacco Use Types Packs/Day Years [...] Procedure Name Priority Date/Time Associated Diagnosis Comments CREATININE Routine 10/18/2021 12:27 PM EDT documented in this encounter Results * Creatinine (10/18/2021 12:27 PM EDT) Creatinine 0.88 0.80 - 1.50 mg/dL [facility] Est Glomerular Filtration Rate 94 >=60 mL/min/1. 73 m?? [facility] Comment: This patient's estimated GFR was [...] and symptoms in addition to eGFR. Blood Venous Draw / Unknown 10/18/2021 12:27 PM EDT 10/18/2021 12:37 PM EDT Narrative Resulting Agency Comment Spec In Lab Christiana Moore APRN CHEMISTRY ORDERABLES [facility] [place] [phone] documented in this encounter Visit Diagnoses Not on filedocumented in this encounter Care Teams Softball Player Relationship Specialty Start Date End Date Christiana Moore APRN [address] [place] [address] PCP - General Family Medicine 09/26/19 documented as of this encounter
--- OUTSIDE RECORDS SUMMARY | 2023-11-12 02:15 | XMS_ITS | Encounter Summary ---
[place] [address] Care Team Providers Care Application Technical Designer Name Role Phone Christiana Moore APRN Primary Care Provider [phone] Reason for Visit * Reason Onset Date Comments Other 03/25/2020 Encounter Details Date Type Department Care Team (Late st Contact Info) Description 03/25/2020 Telephone [place] [phone] Monica Price RN Other Social History Tobacco Use Types Packs/Day Years [...] encounter Miscellaneous Notes * Telephone Encounter - Monica Price RN - 03/25/2020 4:00 PM ESTSummary: other TC from [facility] with [facility] Hx: s/p I & D of right thoracotomy incision, wound vac in place since 11/10/19 discharged on 11/14/19?s/p R VATS for resection of anterior mediastinal mass and 5x wedge biopsies of the R lung on 10/24/2019s/p R VATS for resection of anterior mediastinal mass and 5x wedge biopsies of the R lung on10/24/2019 Liza is calling to state that upon her assessment with Mr. Lantigua today, he is having a significant increase in purulent drainage, increase in pain and new swelling around the incision site. The swelling measures 15 cm by 3 cm. Located at the upper end of the incision. The lower end of theincision has the drainage. He is having temperatures of 99.5 to 100.1 (normal temp is 97), HR up to 105 - 114. Pain level is now at a 5 from a 3. Discussed with Dr. Contreras (assistant professor nurse education) instructed to head to [facility] ED for evaluation. Mr. Lantigua was in agreement with plan and report to be called. TC to [facility] ED - [phone] Spoke with [facility] [place] lace machine operator nurse in ED. Report given and requested CT scan of Chest with IV contrast to be completed as well blood work. Penny was grateful for the update and will look for Mr. Lantigua. documented in this encounter Plan of Treatment Not on file documented as of this encounter Visit Diagnoses Not on filedocumented in this encounter Care Teams Application Technical Designer Relationship Specialty Start Date End Date Christiana Moore APRN [address] [place] [address] PCP - General Family Medicine 09/26/19 documented as of this encounter
--- OUTSIDE RECORDS SUMMARY | 2023-11-12 02:15 | XMS_ITS | Encounter Summary ---
[place] [address] Care Team Providers Care Campus Security Director Name Role Phone Oscar Christiana DAVIS Primary Care Provider [phone] Encounter Details Date Type Department Care Team (Latest Contact Info) Description 03/22/2021 1:15 PM EST Laboratory Appointment Lab [address] [place] [id number] Type A malignant thymoma Social History Tobacco Use Types Packs/Day Years [...] Procedure Name Priority Date/Time Associated Diagnosis Comments HC VENIPUNCTURE STAT 03/22/2021 1:01 PM EST Type A malignant thymoma documented in this encounter Results * (ABNORMAL) Creatinine (03/22/2021 1:01 PM EST) Creatinine 0.75(L) 0.80 - 1.50 mg/dL [facility] Est Glomerular Filtration Rate 96 >=60 mL/min/1. 73 m?? [facility] Comment: This patient? s estimated glomerular filtration rate (eGFR) is between 96 mL/min/1.73 m2 (patients with less muscle mass per kg body weight) and 111 mL/min/1.73 m2 (patients with more muscle mass per kg body weight) as determined by the CKD-EPI equation. Assessment of eGFR is not appropriate when creatinine concentrations are rapidly changing. For clinical decisions where creatinine clearance will affect therapy, a 24-hour urine creatinine clearance may be advised. Assignment of CKD stage 1 - 5 for patients with an eGFR near the transition point between stages may be based on clinical assessment of muscle mass and symptoms in addition to eGFR. Blood 03/22/2021 1:01 PM EST 03/22/2021 1:12 PM EST Narrative Resulting Agency Comment Spec In Lab Quentin Carlin MD CHEMISTRY ORDERABLES [facility] [place] [address] documented in this encounter Visit Diagnoses Diagnosis Type A malignant thymoma documented in this encounter Care Teams Campus Security Director Relationship Specialty Start Date End Date Christiana Moore APRN [address] [place] [address] PCP - General Family Medicine 09/26/19 documented as of this encounter
--- OUTSIDE RECORDS SUMMARY | 2023-11-12 02:15 | XMS_ITS | Encounter Summary ---
Author Organization [facility] [place] [address] Care Team Providers Care Cabin Service Agent Name Role Phone Christiana Moore APRN Primary Care Provider [phone] Encounter Details Date Type Department Care Team (Late st Contact Info) Description 04/26/2020 Telephone [place] [phone] Clarissa Murphy, RN Social History Tobacco Use [...] Telephone Encounter - Clarissa Murphy RN - 04/26/2020 12:26 PM EST HX: s/p I & D of right thoracotomy incision, wound vac in place since 11/10/19 discharged on 11/14/19?s/p R VATS for resection of anterior mediastinal mass and 5x wedge biopsies of the R lung on 10/24/2019s/p R VATS for resection of anterior mediastinal mass and 5x wedge biopsies of the R lung on10/24/2019 Phoned Adi to check in on wound care progress. He is pain free today and states that I think it's going good, but I definitely want to come see you guys tomorrow to check in. The home care nurse has been seeing him twice weekly and his is taking care of the dressings the rest of the time. Heremains afebrile and continues to have intermittent fluid build up in the inferior portion that is tunneled. We will see him in clinic tomorrow for wound check at 11:00. documented in this encounter Plan of Treatment Not on file documented as of this encounter Visit Diagnoses Not on filedocumented in this encounter Care Teams Cabin Service Agent Relationship Specialty Start Date End Date Christiana Moore APRN [address] [place] [address] PCP - General Family Medicine 09/26/19 documented as of this encounter
--- OUTSIDE RECORDS SUMMARY | 2023-11-12 02:15 | XMS_ITS | Encounter Summary ---
Author Organization [facility] [place] [address] Care Team Providers Care Route Deliverer Name Role Phone Christiana Moore RYAN Primary Care Provider [phone] Reason for Referral * Diagnostic Test (Routine) - Closed Specialty Diagnoses / Procedures Referred By Contac t Referred To Contact Radiology Diagnoses Type A malignant thymoma Procedures CT Chest wo Contrast (Generic) Jose Alvarez MD [facility] [place] [address] [facility] [place] [address] Referral ID Status Reason Start Date Expiration Date V isits Requested Visits Authorized [id number] Closed Specialty Service Requested 03/24/2021 09/21/2022 1 1 Reason for Visit * Reason Comments Cancer Encounter Details Date Type Department Care Team (Late st Contact Info) Description 03/22/2021 3:00 PM EST Office Visit [place] [address] Jose Alvarez MD [facility] [address] [place] [address] Type A malignant thymoma Social History Tobacco [...] Sign Reading Time Taken Comments Blood Pressure 145/92 03/22/2021 3:00 PM EST WNL at home Pulse 77 03/22/2021 3:00 PM EST Temperature 37.2 ??C (99 ??F) 03/22/2021 3:00 PM EST Respiratory Rate 14 03/22/2021 3:00 PM EST Oxygen Saturation 98% 03/22/2021 3:00 PM EST Inhaled Oxygen Concentration - - Weight 80.7 kg (178 lb) 03/22/2021 3:00 PM EST Height 178 cm (5' 10.08) 03/22/2021 3:00 PM EST Body Mass Index 25.48 03/22/2021 3:00 PM EST documented in this encounter Patient Instructions * Patient Instructions* Monica Price RN - 03/22/2021 3:00 PM EST Thank you for visiting Dr. Alvarez in clinic 03/23/21 Dr. Alvarez would like to see you back in clinic in 6 months with a recent CT scan of your chest without IV contrast. You will receive a letter in the mail/ receive a call to schedule this appointment. ?? Exercise each day for 30 minutes or longer. Daily aerobic exercise for at least 30 minutes will help improve your endurance and improve the breathing capacity of your lungs. This means that you are breathing hard, your heart is beating fast and that you are sweating. Examples of this include walking, biking, swimming, and using a treadmill or stationary bike. Please call Thoracic surgery at with any questions or concerns. documented in this encounter Progress Notes * Jose Alvarez MD - 03/22/2021 3:00 PM EST Thoracic Surgery Attending Outpatient Follow Up Note Jose Alvarez MD [place] [address] FAX: Pre Op Dx: Mediastinal Mass Post Op Dx: Thymoma, Type A, Stage I Procedure (10/24/19):??Bronchoscopy, right VATS with evacuation of pleural fluid and partial decortication, right thoracotomy with resection of anterior mediastinal mass, wedge resection x5 of the right lung ?? Pathology (10/24/19):??Anterior mediastinal mass -- 8.5 cm??Thymoma, type A,??confined to the thymus, -LVI, -Capsular invasion. Wedge resections RLL, RML and RUL-??benign lymph nodes ?? (11/09/19): Right thoracotomy incision I&D and wound vac placement (12/09/19): Right thoracotomy incision I&D and wound vac placement Complications:??Surgical site infection -- ultimately healed with abx, debridement and VAC placement ?? Treatment:??Surveillance for thymoma HPI: Tree Lantigua is a 65 y.o. male who was last seen in clinic on 10/19/2020 for routine follow-up visit. At that time he reported feeling much improved, almost back at his baseline. Walking 2 miles a day, beginning to bike, and chopping firewood/other activities around his property. He is only limited by joint pain for which he was scheduled to see a cold food packer. He presents today in clinicfor a follow-up on his CT Chest w/ contrast. Denies f/c/n/v/SOB/CP. Medications: Current Outpatient Medications on File Prior to Visit Medication Sig Dispense Refill ??? ibuprofen (Advil;Motrin) 200 mg Tablet Take 3 tablets by mouth every 6 hours. (Patient not taking: Reported on 03/22/2021) ??? acetaminophen (Tylenol) 500 mg Tablet Take 2 tablets by mouth every 6 hours. (Patient not taking: Reported on 03/22/2021) 30 tablet 0 ??? senna (Senokot) 8.6 mg Tablet Take 2 tablets by mouth every evening. (Patient not taking: Reported on 03/22/2021) 60 tablet 0 No current facility-administered medications on file prior to visit. Physical Exam: BP (!) 145/92 (Patient Position: Sitting) Comment: WNL at home Pulse 77 Temp 37.2 ??C (99 ??F) (Temporal) Resp 14 Ht 178 cm (5' 10.08) Wt 80.7 kg (178 lb) SpO2 98% BMI 25.48 kg/m?? General Appearance: Alert, cooperative, no distress, appears stated age Nk: Supple, symmetrical, no adenopathy Lungs: Clear to auscultation bilaterally, respirations unlabored, No wheezes, crackles or ronchi. Heart: Regular rate and rhythm, S1 and S2 normal, III-IV/ systolic murmur best appreciated at RUSB Abdomen: Soft, non-tender Extremities: Extremities normal, atraumatic, no cyanosis or edema Wound/Incision: Thoracotomy incision is completely healed, no evidence of infection, non-tender Imaging: I have independently visualized the following studies: CT Chest (03/22/2021): 1. Status post thymectomy. No findings for resection site recurrence. 2. Unchanged bilateral pulmonary nodules. No new or enlarging nodules. 3. Trace residual bilateral effusions. Assessment: Tree Lantiuga is a 65 y.o. male Right thoracotomy, partial decortication, resection of anterior mediastinal mass on 10/24/19 for a Type A stage I thymoma, course c/b surgical site infection requiringI&D and wound vac placement x2 on 11/09/19 and 12/09/19. His surgical site wounds are healed, is functionally nearing his pre-surgery baseline, and is [place] on most recent CT (03/22/2021). Plan: 1. RTC in [address] Chest without contrast. We will then go to yearly scans 2. Continue 30 minutes of exercise daily at a minimum -- he should continue to increase his level of activity and push his exercise tolerance 3. Follow up with his PCP as scheduled 4. Call with any questions JOSE ALVAREZ MD documented in this encounter Plan of Treatment Not on file documented as of this encounter Results * CT Chest wo [...] who have questions please contact the health vp care management that requested your imaging first. ? Narrative [...] patients who have questions please contactthe health vp care management that requested your imaging first. Jose Alvarez MD IMG CT ORDERABLES documented in this encounter Visit Diagnoses Diagnosis Type A malignant thymoma Type A malignant thymoma documented in this encounter Care Teams Route Deliverer Relationship Specialty Start Date End Date Christiana Moore APRN [address] [place] [address] PCP - General Family Medicine 09/26/19 documented as of this encounter
--- OUTSIDE RECORDS SUMMARY | 2023-11-12 02:15 | XMS_ITS | Encounter Summary ---
Author Organization [facility] [place] [address] Care Team Providers Care Instrument Tech Name Role Phone Oscar Christiana DAVIS Primary Care Provider [phone] Reason for Visit * Reason Comments Cancer Follow-up Encounter Details Date Type Department Care Team (Late st Contact Info) Description 02/17/2020 1:45 PM EST Office [place] [address] Jose Alvarez MD [facility] [place] [address] Type A malignant thymoma; Open wound of [...] Sign Reading Time Taken Comments Blood Pressure 142/90 02/17/2020 1:25 PM EST Pulse 110 02/17/2020 1:25 PM EST Temperature 37.3 ??C (99.1 ??F) 02/17/2020 1:25 PM ES T Respiratory Rate 16 02/17/2020 1:25 PM EST Oxygen Saturation 98% 02/17/2020 1:25 PM EST Inhaled Oxygen Concentration - - Weight 83.9 kg (185 lb) 02/17/2020 1:25 PM EST Height 181.2 cm (5' 11.34) 02/17/2020 1:[address] Body Mass Index 25.56 02/17/2020 1:25 PM EST documented in this encounter Patient Instructions * Patient Instructions* Clarissa Murphy RN - 02/17/2020 1:45 PM EST Thank you for visiting Dr. Alvarez in clinic 02/18/20 Dr. Alvarez would like to see you back in clinic in one week for a wound check. ?? Exercise each day for 30 minutes [...] Progress Notes * Jose Alvarez MD - 02/17/2020 1:45 PM EST Thoracic Surgery Attending Outpatient Follow Up Note MD Fatou Nance PA-C [place] [address] FAX: Pre Op Dx:??mediastinal mass ?? Post Op Dx:??Thymoma ?? Procedure (10/24/19):??Bronchoscopy, right VATS with evacuation of pleural fluid and partial decortication, right thoracotomy with resection of anterior mediastinal mass, wedge resection x5 of the right lung ?? Pathology (10/24/19):??Anterior mediastinal mass -- 8.5 cm??Thymoma, type A,??confined to the thymus, -LVI, -Capsular invasion. Wedge resections RLL, RML and RUL-??benign lymph nodes ?? Procedure (11/09/19): Right thoracotomy incision I&D and wound vac placement ?? Procedure (12/09/19): Right thoracotomy incision I&D and wound vac placement ?? Complications:??Surgical site infection ?? Treatment:??damp to damp dressing changes per and VNA, surveillance for thymoma ?? HPI:??Tree Lantigua??is a 64 y.o.??male??who is s/p Right thoracotomy, partial decortication, resection of anterior mediastinal mass??on 10/24/19??for a thymoma.??He represented to the hospital on 11/09/19 with a Right thoracotomy surgical site infection and is now s/p I&D of the Right thoracotomy incision with wound vac placement??x2??on 11/09/19??and 12/09/19.??He presents today in clinic for a wound check. ?? They have been doing damp to damp dressing changes twice daily at home with the VNA coming twice weekly since his last visit. He notes that on Sunday he started having more pain and his notes that the wound started to look different on Sunday. He denies f/c/n/v/SOB/CP. Medications: Current Outpatient Medications on File Prior to Visit Medication Sig Dispense Refill ??? sulfamethoxazole-trimethoprim DS (Bactrim DS) 800-160 mg Tablet Take 1 tablet by mouth 2 times daily. (Patient not taking: Reported on 01/27/2020) 36 tablet 0 ??? oxyCODONE (Roxicodone) 5 mg Tablet Take 1 tablet by mouth every 8 hours as needed for Pain. (Patient not taking: Reported on 12/19/2019) 10 tablet 0 ??? ibuprofen (Advil;Motrin) 200 mg Tablet Take 3 tablets by mouth every 6 hours. (Patient not taking: Reported on 01/06/2020) ??? acetaminophen (Tylenol) 500 mg Tablet Take 2 tablets by mouth every 6 hours. (Patient not taking: Reported on 01/06/2020) 30 tablet 0 ??? senna (Senokot) 8.6 mg Tablet Take 2 tablets by mouth every evening. (Patient not taking: Reported on 01/06/2020) 60 tablet 0 No current facility-administered medications on file prior to visit. Physical Exam: BP 142/90 (Patient Position: Sitting) Pulse (!) 110 Temp 37.3 ??C (99.1 ??F) (Temporal) Resp 16 Ht 181.2 cm (5' 11.34) Wt 83.9 kg (185 lb) SpO2 98% BMI 25.56 kg/m?? General Appearance: Alert, cooperative, no distress, appears stated age Nk: Supple, symmetrical, trachea midline Lungs: Clear to auscultation bilaterally, respirations unlabored Heart: Regular rate Abdomen: Soft, non-tender Extremities: Extremities normal, atraumatic, no cyanosis or edema Wound/Incision: Right thoracotomy wound with small amount purulent drainage noted on dressing and in wound. Wound is tender. No surrounding erythema or areas of fluctuance noted. Wound debrided and repacked firmly with wet gauze in superior and inferior tunnel. Assessment: Tree Lantigua is a 64 y.o. male /p Right thoracotomy, partial decortication, resection of anteriormediastinal mass??on 10/24/19??for a thymoma??c/b surgical site infection requiring??I&D??and??wound vac placement??x2??on 11/09/19??and 12/09/19, now with damp to damp with superficial infection. Plan: 1. Wound debrided in clinic today and packed with wet gauze in superior and inferior tunnel. Patient and instructed to pack for two days, then go back to loosely packed damp to damp dressing that should be changed THREE times daily until no purulent drainage is noted. They should also debride the wound as shown in clinic today. Continue to wash wound in shower with soap and water. Strict instructions given to call if symptoms change/worsen/ he becomes febrile/etc 2. 30 minutes of exercise daily at a minimum 3. RTC in next Sunday for wound check 4. No antibiotics at this time 5. Call with any questions Fatou Dong PA-C 02/17/2020 Thoracic Surgery [facility] I have seen the patient and reviewed the PA/resident's above history and I agree with the details as written. The assessment and plan were formulated in discussion with me and I agree with them as documented. Assessment: Tree Lantigua is a 64 y.o. male /p Right thoracotomy, partial decortication, resection of anteriormediastinal mass??on 10/24/19??for a thymoma??c/b surgical site infection requiring??I&D??and??wound vac placement??x2??on 11/09/19??and 12/09/19, now with damp to damp with superficial infection. Plan: 1. Wound debrided in clinic today and packed with wet gauze in superior and inferior tunnel. Patient and instructed to pack for two days and to make sure that they get it all the way into the pockets, then go back to loosely packed damp to damp dressing that should be changed THREE times dailyuntil no purulent drainage is noted. They should also debride the wound as shown in clinic today with wet guaze and their finger. Continue to wash wound in shower with soap and water. Strict instructions given to call if symptoms change/worsen/ he becomes febrile/etc 2. 30 minutes of exercise daily at a minimum 3. RTC in next Sunday for wound check 4. No antibiotics at this time 5. Call with any questions JOSE ALVAREZ MD documented in this encounter Plan of Treatment Not on file documented as of this encounter Visit Diagnoses Diagnosis Type A malignant thymoma Open wound of right chest wall with complication, subsequent encounter documented in this encounter Care Teams Instrument Tech Relationship Specialty Start Date End Date Christiana Moore APRN [address] [place] [address] PCP - General Family Medicine 09/26/19 documented as of this encounter
--- OUTSIDE RECORDS SUMMARY | 2023-11-12 02:15 | XMS_ITS | Encounter Summary ---
Author Organization [facility]ly [facility] [place] [address] Care Team Providers Care Fleet Director Name Role Phone Oscar Christiana RYAN Primary Care Provider [phone] Reason for Referral * Diagnostic Test (Routine) - Closed Specialty Diagnoses / Procedures Referred By Contac t Referred To Contact Radiology Diagnoses Type A malignant thymoma Procedures CT Chest w Contrast Quentin Carlin MD [facility] [place] [address] [facility] [place] [address] Referral ID Status Reason Start Date Expiration Date V isits Requested Visits Authorized [id number] Closed Specialty Service Requested 02/24/2020 08/23/2021 1 1 Reason for Visit * Diagnostic Test (Routine) - Closed Specialty Diagnoses / Procedures Referred By Contac t Referred To Contact Radiology Diagnoses Type A malignant thymoma Procedures CT Chest w Contrast Quentin Carlin MD [facility] [place] [address] [facility] [place] [address] Referral ID Status Reason Start Date Expiration Date V isits Requested Visits Authorized [id number] Closed Specialty Service Requested 02/24/2020 08/23/2021 1 1 Encounter Details Date Type Department Care Team (Latest Contact Info) Description 10/19/2020 12:00 PM EDT - 10/19/2020 11:59 PM EDT Hospital [place] [address] Quentin Carlin MD [facility] [place] [address] Type A malignant thymoma Discharge Disposition: Home [...] Diagnosis Comments CT CHEST W CONTRAST Routine 10/19/2020 1 2:51 PM EDT Type A malignant thymoma POCT CREATININE Routine 10/19/2020 12:43 PM EDT documented in this encounter Results * CT Chest w Contrast (10/19/2020 12:51 PM EDT) Anatomical Region Laterality Modality Chest Computed Tomogra phy Impressions 10/19/2020 3:01 PM EDT 1. ??No findings for resection site recurrence. 2. ??Unchanged bilateral pulmonary nodules allowing for differential respiratory motion artifact on the studies. Many of the nodules appear consistent with intrapulmonary lymph nodes. No appreciable new or enlarging nodules. 3. ??Slightly decreased small right and very small left pleural effusions. Thank you for letting us participate in the care of this patient. ??If you are a health care provider and have any questions regarding this report, please contact the number below. ??For patients who have questions please contact the health healthcare management that requested your imaging first. ? Electronically signed by: Ava Islas MD, [facility] ([phone]), at 10/19/2020 3:01 PM Narrative 10/19/2020 3:01 PM EDT EXAMINATION: CT CHEST W CONTRAST CLINICAL HISTORY: Thymoma, monitor, no metastases Thymoma surveillance, Eval for changes and/or new disease process TECHNIQUE: 3.0 mm thick axial contiguous sections were obtained through the chest via helical acquisition after the intravenous administration of 60 cc of Omnipaque-350. Thin-section reconstructions as well as coronal and sagittal reformatted images were generated. COMPARISON: 03/25/2020 [facility]. FINDINGS: Pulmonary parenchyma: Chain suture in the anteromedial right upper lobe and posterior right lower lobe, with areas of linear scarring in the right lung. Scattered nodules in both lungs, almost all less than 5 mm in size, located along septations, blood vessels, and fissures, not significantly changed generally better visualized given deeper inspiration and less respiratory motion artifact, many compatible with intrapulmonary lymph nodes. Largest nodules are along the major fissure on the right on series 4 images 178 and 180, each 9 mm in maximum dimension, flat on orthogonal reconstructions see series 6 image 48, consistent with intrapulmonary lymph nodes, unchanged. Airways: Blind-ending short bronchial branch emanating from the medial wall of the bronchus intermedius consistent with so-called cardiac bronchus, congenital/ developmental anatomic variant. Pleura: Slight interval decrease in small right and very small left pleural effusions. Lymph nodes:No appreciable lymphadenopathy except for similar prominence of bilateral axillary lymph nodes. Heart, pericardium, and great vessels: No new findings. Other mediastinal structures: No findings for resection site recurrence. Lower neck: No new findings. Upper abdomen: Bilateral cortical and exophytic renal cysts. Body wall soft tissues: Fluid and air in the posterolateral wall of the lower right hemithorax is resolved. Skeletal structures: No suspicious interval findings. Procedure Note Ava Islas MD - 10/19/2020 EXAMINATION: CT CHEST W CONTRAST CLINICAL HISTORY: Thymoma, monitor, no metastases Thymoma surveillance, Eval for changes and/or new disease process TECHNIQUE: 3.0 mm thick axial contiguous sections were obtained throughthe chest via helical acquisition after the intravenous administration of 60cc of Omnipaque-350. Thin-section reconstructions as well as coronal andsagittal reformatted images were generated. COMPARISON: 03/25/2020 [facility]. FINDINGS: Pulmonary parenchyma: Chain suture in the anteromedial right upper lobe and posterior rightlower lobe, with areas of linear scarring in the right lung. Scattered nodules in both lungs, almost all less than 5 mm in size,located along septations, blood vessels, and fissures, not significantly changed generally better visualized given deeper inspiration and less respiratorymotion artifact, many compatible with intrapulmonary lymph nodes. Largest nodules are along the major fissure on the right on series 4images 178 and 180, each 9 mm in maximum dimension, flat on orthogonalreconstructions see series 6 image 48, consistent with intrapulmonary lymph nodes,unchanged. Airways: Blind-ending short bronchial branch emanating from the medialwall of the bronchus intermedius consistent with so-called cardiac bronchus,congenital/ developmental anatomic variant. Pleura: Slight interval decrease in small right and very small leftpleural effusions. Lymph nodes:No appreciable lymphadenopathy except for similar prominenceof bilateral axillary lymph nodes. Heart, pericardium, and great vessels: No new findings. Other mediastinal structures: No findings for resection site recurrence. Lower neck: No new findings. Upper abdomen: Bilateral cortical and exophytic renal cysts. Body wall soft tissues: Fluid and air in the posterolateral wall of thelower right hemithorax is resolved. Skeletal structures: No suspicious interval findings. IMPRESSION 1. No findings for resection site recurrence. 2. Unchanged bilateral pulmonary nodules allowing for differentialrespiratory motion artifact on the studies. Many of the nodules appear consistentwith intrapulmonary lymph nodes. No appreciable new or enlarging nodules. 3. Slightly decreased small right and very small left pleuraleffusions. Thank you for letting us participate in the care of this patient. If youare a health care provider and have any questions regarding this report,please contact the number below. For patients who have questions please contactthe health healthcare management that requested your imaging first. Electronically signed by: Ava Islas MD, [facility]([phone]), at 10/19/2020 3:01 PM Quentin Carlin MD IMG CT ORDERABLES * POCT Creatinine (10/19/2020 12:43 PM EDT) Creatinine, POC 0.8 0.8 - 1.5 mg/dL POC Estimated GFR 97 60 Blood 10/19/2020 12:4 3 PM EDT Quentin Carlin MD POINT OF CARE TEST O RDERABLES documented in this encounter Visit Diagnoses Diagnosis Type A malignant thymoma documented in this encounter Administered Medications Inactive Administered Medications - up to 3 most recent administrations Medication Order MAR Action Action Date Dose Rate Site iohexoL (Omnipaque) (350 mg/mL) injection solution 0-200 mL 0-200 mL, Intravenous, ONCE PRN, 1 dose, Starting on 10/19/20 at 1251, Until Sun10/19/20 at 1251, Per Protocol, Warning Vesicant/Irritant Medication , Radiology Contrast, Routine Given 10/19/2020 12:51 PM EDT 60 mLs documented in this encounter Care Teams Fleet Director Relationship Specialty Start Date End Date Christiana Moore APRN [address] [place] [address] PCP - General Family Medicine 09/26/19 documented as of this encounter
--- OUTSIDE RECORDS SUMMARY | 2023-11-12 02:15 | XMS_ITS | Encounter Summary ---
Author Organization [facility] Address [facility] [place] [address] Care Team Providers Care Crochet Beader Name Role Phone Oscar Christiana DAVIS Primary Care Provider [phone] Encounter Details Date Type Department Care Team (Late st Contact Info) Description 04/13/2020 11:30 AM EST Office Visit [place] [id number] Fatou Dong PA [facility] [place] [address] Open wound of right chest wall with [...] Sign Reading Time Taken Comments Blood Pressure 148/91 04/13/2020 11:24 AM EST Pulse 95 04/13/2020 11:24 AM EST Temperature 36.4 ??C (97.6 ??F) 04/13/2020 11:[address] Respiratory Rate 18 04/13/2020 11:24 AM EST Oxygen Saturation 99% 04/13/2020 11:24 AM EST Inhaled Oxygen Concentration - - Weight 81.2 kg (179 lb) 04/13/2020 11:24 AM EST Height 177 cm (5' 9.69) 04/13/2020 11:24 AM EST Body Mass Index 25.92 04/13/2020 11:24 AM EST documented in this encounter Patient Instructions * Patient Instructions* Clarissa Murphy RN - 04/13/2020 11:30 AM EST Thank you for visiting Dr. Carlin in clinic 04/13/20 Wound care as follows: Upper tunnel, pack with Aquacel AG and then place wet to dry gauze over the packing. Lower tunnel, pack with Aquacel AG or just wet to dry gauze. Cover and secure with tape. Call Clarissa if you need assist with dressing over the phone on Sunday [phone]. Dr. Carlin would like to see you back in clinic in 6 months with a recent CT scan of your chest with IV contrast. You will receive a letter in the mail/ receive a call to schedule this appointment. Wound care visits as needed. ?? Exercise each day for 30 minutes [...] documented in this encounter Progress Notes * Fatou Dong PA - 04/13/2020 11:30 AM EST Thoracic Surgery Attending Outpatient Follow Up Note Fatou Dong PA-C [place] [address] FAX: Pre Op Dx:??mediastinal mass ?? Post Op Dx:??Thymoma, Type A, Stage I ?? Procedure (10/24/19):??Bronchoscopy, right VATS with evacuation [...] ?? Treatment:??damp to damp dressing changes per and??VNA, surveillance for thymoma ?? HPI: Tree Lantigua is a 64 y.o. male who is s/p Right thoracotomy, partial decortication, resection of anterior mediastinal mass??on 10/24/19??for a thymoma.??He represented to the hospital on 11/09/19with a Right thoracotomy surgical site infection and is now s/p I&D of the Right thoracotomy incision with wound vac placement??x2??on 11/09/19??and 12/09/19.??He was last seen in clinic on 02/24/20 with concerns for a suspected superficial wound infection. He presents today for possible wound opening. He reports his is now unable to pack the superior tunnel of the wound because it is too small.They are still packing the inferior portion. Of note, during his last he reported that he presented to an OSH ED with c/o drainage from wound on03/25/2020 and was discharged on a course of bactrim which he has now completed. He again notes newpain x 2 days but denies any discharge as well as f/c/n/v/SOB/CP. Medications: Current Outpatient Medications on File Prior to Visit Medication Sig Dispense Refill ??? [DISCONTINUED] sulfamethoxazole-trimethoprim DS (Bactrim DS) 800-160 mg Tablet Take 1 tablet bymouth 2 times daily. 36 tablet 0 ??? [DISCONTINUED] oxyCODONE (Roxicodone) 5 mg Tablet Take 1 tablet by mouth every 8 hours as needed for Pain. 10 tablet 0 ??? ibuprofen (Advil;Motrin) 200 mg Tablet Take 3 tablets by mouth every 6 hours. ??? acetaminophen (Tylenol) 500 mg Tablet Take 2 tablets by mouth every 6 hours. 30 tablet 0 ??? senna (Senokot) 8.6 mg Tablet Take 2 tablets by mouth every evening. 60 tablet 0 No current facility-administered medications on file prior to visit. Physical Exam: BP (!) 148/91 Pulse 95 Temp 36.4 ??C (97.6 ??F) Resp 18 Ht 177 cm (5' 9.69) Wt 81.2 kg (179 lb) SpO2 99% BMI 25.92 kg/m?? General Appearance: Alert, cooperative, no distress, appears stated age Nk: Supple, symmetrical, trachea midline Lungs: Respirations unlabored on RA Heart: Regular rate Abdomen: Soft, non-tender Extremities: Extremities normal, atraumatic, no cyanosis or edema Wound/Incision: Right thoracotomy wound with evidence of good wound healing/granulation tissue, superior aspect of wound with minimal tunneling ~1cm via Q-tip and ~4cm of tunneling at inferior aspect, mid aspect measures ~4cm. Serous drainage noted Imaging: I have independently visualized the following studies: No new imaging Assessment: Tree Lantigua is a 65 y.o. male s/p Right thoracotomy, partial decortication, resection of anterior mediastinal mass??on 10/24/19??for a thymoma??c/b surgical site infection requiring??I&D??and??wound vac placement??x2??on 11/09/19??and 12/09/19,??now??undergoing??damp to damp dressing changes??with??superficial infection that has resolved with changes in dressing and some oral abx. He continues to have good wound healing but required opening of superior and inferior aspects of wound today to facilitate appropriate packing. Plan: 1. superior and inferior aspect of wound opened ~1cm and in clinic today to facilitate appropriate packing- see procedure note for details. Recommend continued aggressive packing as prior with widened base at the skin to help prevent epithelization over tunnel and promote healing of tunnel from inside out. Wet to dry dressing recommended at inferior aspect of wound given length of tunnel. 2. 30 minutes of exercise daily at a minimum 3. RTC in [address] Chest with contrast 4. Follow up for wound check in 4 weeks or sooner if concerns arises or wound becomes difficult to pack again. Continue to monitor for s/sx of infection. 5. Call with any questions Fatou Dong PA-C 04/13/2020 Thoracic Surgery [facility] documented in this encounter Procedure Notes * Fatou Dong PA - 04/13/2020 11:30 AM ESTProcedure(s): INCISION AND DRAINAGE Pre-Procedure Diagnose(s): Postoperative wound infection Post-Procedure Diagnose(s): Postoperative wound infection Consent was obtained. The right thoracotomy incision was cleansed with Chloraprep. Area anesthesized with ~5ml 1% lidocaine with epi. The superior and inferior aspect of the wound, where epithelialization was noted over tunneled portion of the wound, were opened with a 15 blade by ~1cm. Hemostasis was achieved. The superior aspect tunnel measures ~1cmx0.5cm and was packed with patient supplied silver impregnated gauze with wet gauze placed over top to ensure skin edged were not touching. Inferior tunnel measures ~4cm and was packed with wet gauze. Middle aspect of wound with good granulation tissue noted. Dry gauze and medipore tape place atop. Fatou Dong PA-C 04/13/2020 Thoracic Surgery [facility] documented in this encounter Plan of Treatment Not on file documented as of this encounter Visit Diagnoses Diagnosis Open wound of right chest wall with complication, subsequent encounter documented in this encounter Care Teams Crochet Beader Relationship Specialty Start Date End Date Christiana Moore APRN [address] [place] [address] PCP - General Family Medicine 09/26/19 documented as of this encounter
--- OUTSIDE RECORDS SUMMARY | 2023-11-12 02:15 | XMS_ITS | Encounter Summary ---
Author Organization Formerly [facility] [place] [address] Care Team Providers Care Mattress Spring Encaser Name Role Phone Christiana Moore RYAN Primary Care Provider [phone] Reason for Referral * Diagnostic Test (Routine) - New Request Specialty Diagnoses / Procedures Referred By Contac t Referred To Contact Radiology Diagnoses Type A malignant thymoma Procedures CT Chest wo Contrast (Generic) Jose Alvarez MD [facility] [place] [address] [facility] [place] [address] Referral ID Status Reason Start Date Expiration Date Visits Requested Visits Authorized [id number] New Request Specialty Service Requested 10/17/2022 04/19/2024 1 1 Reason for Visit * Reason Comments Follow-up Cancer Thymoma Encounter Details Date Type Department Care Team (Late st Contact Info) Description 10/17/2022 10:30 AM EDT Office Visit [place] [address] Jose Alvarez MD [facility] [place] [address] Type A malignant thymoma Social [...] Sign Reading Time Taken Comments Blood Pressure 140/102 10/17/2022 11:01 AM EDT Pulse 69 10/17/2022 11:01 AM EDT Temperature 36.7 ??C (98.1 ??F) 10/17/2022 11:01 AM E DT Respiratory Rate 17 10/17/2022 11:01 AM EDT Oxygen Saturation 98% 10/17/2022 11:01 AM EDT Inhaled Oxygen Concentration - - Weight 78.1 kg (172 lb 2.9 oz) 10/17/2022 11:01 AM EDT Height 176 cm (5' 9.29) 10/17/2022 11:01 AM EDT Body Mass Index 25.21 10/17/2022 11:01 AM EDT documented in this encounter Patient Instructions * Patient Instructions* Clarissa Murphy RN - 10/17/2022 10:30 AM EDT Thank you for visiting Dr. Alvarez in clinic 10/17/22 Dr. Alvarez would like to see you back in clinic in 1 year with a recent CT scan of your chest without contrast. You will receive a letter in the mail/ receive a call to schedule this appointment. Exercise each day for 30 minutes or [...] documented in this encounter Progress Notes * Ramiro Salinas - 10/17/2022 10:30 AM EDT Thoracic Surgery Attending Outpatient Follow Up Note MD Ramiro Nance, MS3 [facility], [place] [address] FAX: Pre Op Dx: Mediastinal Mass Post Op Dx: Thymoma, Type A, Stage I Procedure (10/24/19): Bronchoscopy, right VATS with evacuation of pleural fluid and partial decortication, right thoracotomy with resection of anterior mediastinal mass, wedge resection x5 of the right lung Pathology (10/24/19): Anterior mediastinal mass -- 8.5 cm Thymoma, type A, confined to the thymus, -LVI, -Capsular invasion. Wedge resections RLL, RML and RUL- benign lymph nodes (11/09/19): Right thoracotomy incision I&D and wound vac placement (12/09/19): Right thoracotomy incision I&D and wound vac placement Complications: Surgical site infection -- ultimately healed with abx, debridement and VAC placement Treatment: Surveillance for thymoma HPI: Tree Solorio is a 67 y.o. male s/p above procedures who presents today for annual surveillance follow-up. He denies interval hospitalizations, surgeries and illnesses as well as fevers, chills, night sweats, unexpected weight loss, cough, SOB, chest pain, dysphagia, odynophagia, facial swelling, syncope,double vision, and skin changes. He denies any changes to his medical history since his last visit 1 year ago. He is exercising daily by walking 2-3 miles/day with his . He says that he feels like he got his strength back, and he is content with his progress. Medications: Current Outpatient Medications on File Prior to Visit Medication Sig Dispense Refill ibuprofen (Advil;Motrin) 200 mg Tablet Take 3 tablets by mouth every 6 hours. (Patient not taking: Reported on 10/17/2022) acetaminophen (Tylenol) 500 mg Tablet Take 2 tablets by mouth every 6 hours. (Patient not taking: Reported on 10/17/2022) 30 tablet 0 senna (Senokot) 8.6 mg Tablet Take 2 tablets by mouth every evening. (Patient not taking: Reported on 03/22/2021) 60 tablet 0 No current facility-administered medications on file prior to visit. Physical Exam: BP (!) 140/102 (Patient Position: Sitting) Pulse 69 Temp 36.7 ??C (98.1 ??F) (Temporal) Resp 17 Ht 176 cm (5' 9.29) Wt 78.1 kg (172 lb 2.9 oz) SpO2 98% BMI 25.21 kg/m?? General Appearance: Alert, cooperative, no distress, appears stated age Nk: Supple, symmetrical, trachea midline, no adenopathy; thyroid: not enlarged, symmetric, no tenderness/mass/nodules; no JVD Lungs: BS significantly diminished in R lung base, Clear to auscultation bilaterally otherwise, respirations unlabored, no wheezes, crackles or ronchi. Heart: Regular rate and rhythm, S1 and S2 normal, early systolic murmur, no rub nor gallop Abdomen: Soft, non-tender, bowel sounds active all four quadrants, no masses, no organomegaly Extremities: Extremities normal, atraumatic, no cyanosis or edema Wound/Incision: Healed scar on thoracotomy line Imaging: I have independently visualized the following studies: CT Chest (10/17/2022): - nodules present in RLL, unchanged from CT performed on 10/18/2021. - no evidence of thymoma recurrence Assessment: Tree Lantigua is a 67 y.o. male s/p right thoracotomy, partial decortication, resection of anterior mediastinal mass on 10/24/19 for a Type A stage I thymoma, course c/b surgical site infection requiring I&D and wound vac placement x2 on 11/09/19 and 12/09/19 He is currently doing we and asymptomatic for his nodules. Plan: 1. RTC in [address] chest [address] for thymoma surveillance 2. 30 minutes of exercise daily at a minimum 3. Call with any questions Ramiro Salinas, [facility] I have seen the patient and reviewed the medical student's above history. The assessment and plan were formulated in discussion with me. Please see my note for details. JOSE ALVAREZ MD * Jose Alvarez MD - 10/17/2022 10:30 AM EDT Thoracic Surgery Attending Outpatient Follow Up Note MD Ramiro Nance, MS3 [facility] [place], [place] [address] FAX: Pre Op Dx: Mediastinal Mass Post Op Dx: Thymoma, Type A, Stage I Procedure (10/24/19): Bronchoscopy, right VATS with evacuation of pleural fluid and partial decortication, right thoracotomy with resection of anterior mediastinal mass, wedge resection x5 of the right lung Pathology (10/24/19): Anterior mediastinal mass -- 8.5 cm Thymoma, type A, confined to the thymus, -LVI, -Capsular invasion. Wedge resections RLL, RML and RUL- benign lymph nodes (11/09/19): Right thoracotomy incision I&D and wound vac placement (12/09/19): Right thoracotomy incision I&D and wound vac placement Complications: Surgical site infection -- ultimately healed with abx, debridement and VAC placement Treatment: Surveillance for thymoma HPI: Tree Solorio is a 67 y.o. male s/p above procedures who presents today for annual surveillance follow-up. He denies interval hospitalizations, surgeries and illnesses as well as fevers, chills, night sweats, unexpected weight loss, cough, SOB, chest pain, dysphagia, odynophagia, facial swelling, syncope,double vision, and skin changes. He denies any changes to his medical history since his last visit 1 year ago. He is exercising daily by walking 2-3 miles/day with his . He says that he feels like he got his strength back, and he is content with his progress. Medications: Current Outpatient Medications on File Prior to Visit Medication Sig Dispense Refill ibuprofen (Advil;Motrin) 200 mg Tablet Take 3 tablets by mouth every 6 hours. (Patient not taking: Reported on 10/17/2022) acetaminophen (Tylenol) 500 mg Tablet Take 2 tablets by mouth every 6 hours. (Patient not taking: Reported on 10/17/2022) 30 tablet 0 senna (Senokot) 8.6 mg Tablet Take 2 tablets by mouth every evening. (Patient not taking: Reported on 03/22/2021) 60 tablet 0 No current facility-administered medications on file prior to visit. Physical Exam: BP (!) 140/102 (Patient Position: Sitting) Pulse 69 Temp 36.7 ??C (98.1 ??F) (Temporal) Resp 17 Ht 176 cm (5' 9.29) Wt 78.1 kg (172 lb 2.9 oz) SpO2 98% BMI 25.21 kg/m?? General Appearance: Alert, cooperative, no distress, appears stated age Nk: Supple, symmetrical, trachea midline, no adenopathy Lungs: BS diminished at R lung base, Clear to auscultation bilaterally otherwise, respirations unlabored, no wheezes, crackles or ronchi. Heart: Regular rate and rhythm, S1 and S2 normal, III-IV/ systolic murmur best appreciated at RUSB Abdomen: Soft, non-tender, bowel sounds active all four quadrants, no masses, no organomegaly Extremities: Extremities normal, atraumatic, no cyanosis or edema Wound/Incision: Healed thoracotomy, no tenderness, no signs of infection Imaging: I have independently visualized the following studies: CT Chest (10/17/2022): Stable appearance of the chest status post thymectomy with no evidence for recurrent or metastatic disease. Stable lung nodules since 03/2021. Assessment: Tree Lantigua is a 67 y.o. male s/p right thoracotomy, partial decortication, resection of anterior mediastinal mass on 10/24/19 for a Type A stage I thymoma, course c/b surgical site infection requiring I&D and wound vac placement x2 on 11/09/19 and 12/09/19 He is currently [place]. Plan: 1. RTC in [address] for thymoma surveillance 2. 30 minutes of exercise daily at a minimum 3. Follow up with PCP as scheduled 4. Call with any questions JOSE ALVAREZ MD documented in this encounter Plan of Treatment Scheduled Orders Name Type Priority Associated Diagnoses Orde r Schedule CT Chest wo Contrast (Generic) Imaging Routine Type A malignant thymoma Expected: 10/18/2023, Expires: 04/19/2024 documented as of this encounter Visit Diagnoses Diagnosis Type A malignant thymoma documented in this encounter Care Teams Mattress Spring Encaser Relationship Specialty Start Date End Date Christiana Moore APRN [address] [place] [address] PCP - General Family Medicine 09/26/19 documented as of this encounter
--- OUTSIDE RECORDS SUMMARY | 2023-11-12 02:15 | XMS_ITS | Encounter Summary ---
Author Organization [facility] [place] [address] Care Team Providers Care Remittance Clerk Name Role Phone Christiana Moore APRN Primary Care Provider [phone] Reason for Visit * Reason Onset Date Comments Other 03/26/2020 Encounter Details Date Type Department Care Team (Late st Contact Info) Description 03/26/2020 Telephone [place] [phone] Monica Price, RN Other Social History Tobacco Use Types [...] Telephone Encounter - Monica Price RN - 03/26/2020 10:23 AM ESTSummary: call to check in TC to Mr. Lantigua HX: s/p I & D of right thoracotomy incision, wound vac in place since 11/10/19 discharged on 11/14/19?s/p R VATS for resection of anterior mediastinal mass and 5x wedge biopsies of the R lung on 10/24/2019s/p R VATS for resection of anterior mediastinal mass and 5x wedge biopsies of the R lung on10/24/2019 ED visit 03/[address] [facility] [address] scan of chest for possible wound infection Mr. Lantigua is doing much better today. The pain is so much better and I overall am feeling well. HE started his antibiotic last night and is picking up another script today. He was instructed to change his dressing three times a day and FUV appt on Sunday03/30/[address] Carlin was confirmed. He was grateful for the check in. TC from Ashley CURTIS, ELLY Ramirez is calling with an update on Mr. Lantigua's wound from check on Sun03/24/2020. I think that a silver dressing would be better than the wet to dry dressing. Explained that Mr. Lantigua was seen in the ED last night at [facility] and had a CT scan completed. They started him on Augmentin and she is aware. VNA will visiting today and will assess dressing and changes three times a day. She was grateful for the update. documented in this encounter Plan of Treatment Not on file documented as of this encounter Visit Diagnoses Not on filedocumented in this encounter Care Teams Remittance Clerk Relationship Specialty Start Date End Date Christiana Moore APRN [address] [place] [address] PCP - General Family Medicine 09/26/19 documented as of this encounter
--- OUTSIDE RECORDS SUMMARY | 2023-11-12 02:15 | XMS_ITS | Encounter Summary ---
Author Organization [facility] [place] [address] Care Team Providers Care Muck Miner Blasting Name Role Phone Christiana Moore APRN Primary Care Provider [phone] Encounter Details Date Type Department Care Team (Late st Contact Info) Description 03/14/2023 Telephone [place] [phone] Tim Mcginnis Social History Tobacco Use Types [...] * Telephone Encounter - Tim Mcginnis - 03/14/2023 12:49 PM EST Message left with details on scheduling of CT scan for today 03/14/23 at 3:40pm. documented in this encounter Plan of Treatment Not on file documented as of this encounter Visit Diagnoses Not on filedocumented in this encounter Care Teams Muck Miner Blasting Relationship Specialty Start Date End Date Christiana Moore APRN [address] [place] [address] PCP - General Family Medicine 09/26/19 documented as of this encounter
--- OUTSIDE RECORDS SUMMARY | 2023-11-12 02:15 | XMS_ITS | Encounter Summary ---
Author Organization Formerly [facility] [place] [address] Care Team Providers Care Aviation Maintenance Technician Name Role Phone Christiana Moore APRN Primary Care Provider [phone] Encounter Details Date Type Department Care Team (Late st Contact Info) Description 2020 Telephone [place] [phone] Clarissa Murphy RN Social History Tobacco Use Types Packs/Day [...] Telephone Encounter - Clarissa Murphy RN - 2020 9:26 AM EST Phoned patient back and he will come tomorrow at 2pm. * Telephone Encounter - Clarissa Murphy RN - 2020 8:32 AM EST Phone call from ELLY Coronel. She did wound care on Tree yesterday and needed to update us on the status. The bottom tunnel of the wound is healing well and is able to be packed. The upper tunnel remains about 3.7cm, but the opening is so small they can now only use the wooden end of a swab to get the packing in. The plan was for him to come into the office if this happened to have the openingenlarge, mini I and D. Will discuss with covering provider and get him scheduled to come in for an office visit with a PA or CRM TECHNICAL LEAD. documented in this encounter Plan of Treatment Not on file documented as of this encounter Visit Diagnoses Not on filedocumented in this encounter Care Teams Aviation Maintenance Technician Relationship Specialty Start Date End Date Christiana Moore APRN [address] [place] [address] PCP - General Family Medicine 09/26/19 documented as of this encounter
--- OUTSIDE RECORDS SUMMARY | 2023-11-12 02:15 | XMS_ITS | Encounter Summary ---
Author Organization [facility] [place] [address] Care Team Providers Care Inspector Watch Assembly Name Role Phone Christiana Moore RYAN Primary Care Provider [phone] Reason for Referral * Diagnostic Test (STAT) - Closed Specialty Diagnoses / Procedures Referred By Contac t Referred To Contact Radiology Diagnoses Chest wall abscess Procedures CT Chest w Contrast Todd Alvarez, PA [facility] [place] [address] [facility] [place] [address] Referral ID Status Reason Start Date Expiration Date V isits Requested Visits Authorized [id number] Closed Specialty Service Requested 03/14/2023 09/12/2024 1 1 Reason for Visit * Auth/Cert Specialty Diagnoses / Procedures Referred By Contac t Referred To Contact Diagnoses Complicated wound infection Procedures ER MICAELAI Quentin Carlin MD [facility] [place] [address] [facility] Referral ID Status Reason Start Date Expiration Date Visits Re quested Visits Authorized [id number] 1 1 Encounter Details Date Type Department Care Team (Latest Contact Info) Description 03/14/2023 3:04 PM EST - 03/14/2023 11:59 PM EST Hospital [place] [address] Quentin Carlin MD [facility] [place] [address] Chest wall abscess Discharge Disposition: Home Social History Tobacco Use [...] Sig Dispensed Refills Start Date End Date sulfamethoxazole-trimet hoprim DS (Bactrim DS) 800-160 mg tablet Take 1 tablet by mouth 2 times daily. 20 tablet 03/14/2023 03/20/2023 ibuprofen (Advil;Motrin) 200 mg Tablet Take 3 [...] Associated Diagnosis Comments CT CHEST W CONTRAST STAT 03/14/2023 3 :46 PM EST Chest wall abscess documented in [...] who have questions please contact the health career development consultant that requested your imaging first. ? Narrative 03/14/2023 5:36 PM EST EXAMINATION: CT [...] patients who have questions please contactthe health career development consultant that requested your imaging first. Quentin Carlin MD IMG CT ORDERABLES documented in this encounter Visit Diagnoses Diagnosis Chest wall abscess Cellulitis and abscess of trunk documented in this encounter Administered Medications Inactive Administered Medications - up to 3 most recent administrations Medication Order MAR Action Action Date Dose Rate Site iohexoL (Omnipaque) (350 mg/mL) solution 0-200 mL 0-200 mL, Intravenous, ONCE PRN, 1 dose, Starting on Sun03/14/23 at 1536, Until Sun03/14/23 at 1545, Per Protocol, Warning Vesicant/Irritant Medication , Radiology Contrast, Routine Given 03/14/2023 3:45 PM EST 60 mLs documented in this encounter Care Teams Inspector Watch Assembly Relationship Specialty Start Date End Date Christiana Moore APRN [address] [place] [address] PCP - General Family Medicine 09/26/19 documented as of this encounter
--- OUTSIDE RECORDS SUMMARY | 2023-11-12 02:15 | XMS_ITS | Encounter Summary ---
Author Organization [facility] [place] [address] Care Team Providers Care Us Customs And Border Officer Name Role Phone Oscar Christiana DAVIS Primary Care Provider [phone] Reason for Visit * Reason Comments Wound Check Encounter Details Date Type Department Care Team (Late st Contact Info) Description 04/27/2020 11:00 AM EST Office [place] [address] [facility] [place] [address] Type A malignant thymoma; Open wound of [...] Sign Reading Time Taken Comments Blood Pressure 136/86 04/27/2020 10:51 AM EST Pulse 81 04/27/2020 10:51 AM EST Temperature 37 ??C (98.6 ??F) 04/27/2020 10:51 AM EST Respiratory Rate 18 04/27/2020 10:51 AM EST Oxygen Saturation 99% 04/27/2020 10:51 AM EST Inhaled Oxygen Concentration - - Weight 82.2 kg (181 lb 3.2 oz) 04/27/2020 10:51 AM EST Height 179.2 cm (5' 10.55) 04/27/2020 10:51 AM EST Body Mass Index 25.59 04/27/2020 10:51 AM EST documented in this encounter Progress Notes * Jose Alvarez MD - 04/27/2020 11:00 AM EST Thoracic Surgery Attending Outpatient Follow Up Note MD Fatou Nance PA-C [place], [place] [address] FAX: Pre Op Dx:??mediastinal mass ?? Post [...] changes per and??VNA, surveillance for thymoma ?? HPI:??Tree Lantigua??is a 64 y.o.??male??who is s/p Right thoracotomy, partial decortication, resection of anterior mediastinal mass??on 10/24/19??for a thymoma.??He represented to the hospital on 11/09/19 with a Right thoracotomy surgical site infection and is now s/p I&D of the Right thoracotomy incision with wound vac placement??x2??on 11/09/19??and 12/09/19. He presents today for wound check. They continue to pack the inferior tunnel twice daily with silver impregnated guaze and wet to dry dressings atop. He denies F/c/n/v/SOB/CP. He does have some discomfort at the site but is otherwise doing well. Medications: Current Outpatient Medications on File Prior to Visit Medication Sig Dispense Refill ??? ibuprofen (Advil;Motrin) 200 mg Tablet Take 3 tablets by mouth every 6 hours. (Patient not taking: Reported on 04/27/2020) ??? acetaminophen (Tylenol) 500 mg Tablet Take 2 tablets by mouth every 6 hours. (Patient not taking: Reported on 04/27/2020) 30 tablet 0 ??? senna (Senokot) 8.6 mg Tablet Take 2 tablets by mouth every evening. (Patient not taking: Reported on 04/27/2020) 60 tablet 0 No current facility-administered medications on file prior to visit. Physical Exam: BP 136/86 (Patient Position: Sitting) Pulse 81 Temp 37 ??C (98.6 ??F) (Temporal) Resp 18 Ht179.2 cm (5' 10.55) Wt 82.2 kg (181 lb 3.2 oz) SpO2 99% BMI 25.59 kg/m?? General Appearance: Alert, cooperative, no distress, appears stated age Nk: Supple, symmetrical, trachea midline Lungs: respirations unlabored Heart: Regular rate Extremities: Extremities normal, atraumatic, no cyanosis or edema Wound/Incision: Right thoracotomy incision with good granulation tissue noted, superior tunnel is no longer present, inferior tunnel remains but is decreased in size at ~3cm and tracts superiorly ~2cm- granulation tissue noted. Silver nitrate applied, repacked with silver impregnated guaze Assessment: Tree Lantigua is a 65 y.o. male s/p Right thoracotomy, partial decortication, resection of anterior mediastinal mass??on 10/24/19??for a thymoma??c/b surgical site infection requiring??I&D??and??wound vac placement??x2??on 11/09/19??and 12/09/19,??now??undergoing??damp to damp dressing changes??with??superficial infection??that has resolved with changes in dressing and some oral abx. He continuesto have good wound healing. Plan: 1. Follow up with other appt as franklin 2. 30 minutes of exercise daily at a minimum 3. RTC in [address] Chest as previously scheduled for surveillance 4. RTC for wound check- timing pending progress. /patient instructed to call with updated. 5. Call with any questions Fatou Dong PA-C 04/27/2020 Thoracic Surgery [facility] I have seen the patient and reviewed the PA/resident's above history and I agree with the details as written. The assessment and plan were formulated in discussion with me and I agree with them as documented. Assessment: Tree Lantigua is a 65 y.o. male s/p Right thoracotomy, partial decortication, resection of anterior mediastinal mass??on 10/24/19??for a thymoma??c/b surgical site infection requiring??I&D??and??wound vac placement??x2??on 11/09/19??and 12/09/19,??now??undergoing??damp to damp dressing c hanges??with??superficial infection??that has resolved with changes in dressing and some oral abx. He continues to have good wound healing and it is almost closed (small tunnel). Plan: 1. Follow up with other appt as franklin 2. 30 minutes of exercise daily at a minimum 3. RTC in [address] Chest as previously scheduled for surveillance 4. RTC for wound check- timing pending progress. /patient instructed to call with updated. 5. Call with any questions JOSE ALVAREZ MD documented in this encounter Plan of Treatment Not on file documented as of this encounter Visit Diagnoses Diagnosis Type A malignant thymoma Open wound of right chest wall with complication, subsequent encounter documented in this encounter Care Teams Us Customs And Border Officer Relationship Specialty Start Date End Date Christiana Moore APRN [address] [place] [address] PCP - General Family Medicine 09/26/19 documented as of this encounter
--- OUTSIDE RECORDS SUMMARY | 2023-11-12 02:15 | XMS_ITS | Encounter Summary ---
Author Organization [facility] [place] [address] Care Team Providers Care Inside Sales Engineer Name Role Phone Christiana Moore APRN Primary Care Provider [phone] Encounter Details Date Type Department Care Team (Late st Contact Info) Description 03/25/2020 7:20 PM EST Ancillary [place] [address] Ramses Contreras MD [facility] [place] [address] Social History Tobacco Use Types Packs/Day Years [...] Procedure Name Priority Date/Time Associated Diagnosis Comments FILM LIBRARY STORAGE ONLY CT CHEST Routine 03/25/2020 7:17 PM EST documented in this encounter Results * Film Library- Storage Only CT Chest (03/25/2020 7:17 PM EST) Narrative [facility] - 03/25/2020 7:17 PM EST This exam is auto-finalizing. It's purpose is for storage only. Ramses Contreras MD IMG FILM LIBRARY OR DERABLES [facility] [place], [place] documented in this encounter Visit Diagnoses Not on filedocumented in this encounter Care Teams Inside Sales Engineer Relationship Specialty Start Date End Date Christiana Moore APRN [address] [place] [address] PCP - General Family Medicine 09/26/19 documented as of this encounter
--- OUTSIDE RECORDS SUMMARY | 2023-11-12 02:15 | XMS_ITS | Encounter Summary ---
Author Organization [facility] Address [facility] [place] [address] Care Team Providers Care Cattle Dehorner Name Role Phone Christiana Mooer APRN Primary Care Provider [phone] Reason for Visit * Reason Comments Wound Check Encounter Details Date Type Department Care Team (Late st Contact Info) Description 03/30/2020 9:00 AM EST Office [place] [address] Jose Alvarez MD [facility] [place] [address] Type A malignant thymoma; Chest wall abscess; Open wound of right chest wall with [...] Sign Reading Time Taken Comments Blood Pressure 140/85 03/30/2020 8:44 AM EST Pulse 100 03/30/2020 8:44 AM EST Temperature 36.1 ??C (97 ??F) 03/30/2020 8:44 AM EST Respiratory Rate 18 03/30/2020 8:44 AM EST Oxygen Saturation 99% 03/30/2020 8:44 AM EST Inhaled Oxygen Concentration - - Weight 80.9 kg (178 lb 6.4 oz) 03/30/2020 8:44 A M EST Height 177 cm (5' 9.69) 03/30/2020 8:44 AM EST Body Mass Index 25.83 03/30/2020 8:44 AM EST documented in this encounter Patient Instructions * Patient Instructions* Clarissa Murphy RN - 03/30/2020 9:00 AM EST Thank you for visiting Dr. Alvarez in clinic 03/30/20 Dr. Alvarez would like to see you back in clinic in April 27, 2020 for your 6 month follow-up and wound check. We have sent new wound care orders to your home health care provider. You do not need anew CT Scan for your appointment. ?? Exercise each day for 30 [...] Progress Notes * Jose Alvarez MD - 03/30/2020 9:00 AM EST Thoracic Surgery Attending Outpatient Follow Up Note Jose Alvarez MD [place] [address] FAX: Pre Op Dx:??mediastinal mass ?? Post [...] dressing changes per and??VNA, surveillance for thymoma HPI: Tree Lantigua is a 64 y.o. [...] with concerns for a suspected superficial wound infection and instructed to begin wet to dry dressing changes. He presents to an [facility] ED on 03/25/20 with complaints of increased serous/yellow drainage from his thoracotomy wound. His labs and vitals signs were stable at that time and he was discharged with 10 days of Bactrim. He presents today in follow up from this ED visit and reports feeling better without any major issues, pain has resolved but they are having trouble packing the wound. Recommended silver wound dressings per the VNA. . He denies f/c/n/v/SOB/CP. Medications: Current Outpatient Medications [...] file prior to visit. Physical Exam: BP 140/85 Pulse 100 Temp 36.1 ??C (97 ??F) (Temporal) Resp 18 Ht 177 cm (5' 9.69) Wt 80.9 kg (178 lb 6.4 oz) SpO2 99% BMI 25.83 kg/m?? General Appearance: Alert, cooperative, no distress, appears stated age Nk: Supple, symmetrical, trachea midline, no adenopathy Lungs: Clear to auscultation bilaterally, respirations unlabored, no wheezes, crackles or ronchi. Heart: Regular rate and rhythm, S1 and S2 normal, no murmur, rub, or gallop Extremities: Extremities normal, atraumatic, no cyanosis or edema Wound/Incision: Healing well with good granulation tissue. Total wound size is 4cm, with a 2 cm opening and 1.5 cm tunnel superior/medial and a 2 cm tunnel inferior lateral. No purulence. Imaging: I have independently visualized the following studies: CT Chest (03/25/20): At the site of the BB marker on the posterior chest wall there is a skin defect with soft tissue swelling and skin thickening. No focal fluid collection is seen to suggest an abscess Interval removal of the right pulmonary mass without evidence of recurrent or residual disease Stable pulmonary nodules Mild to moderate bilateral pleural effusions with sub-adjacent infiltrates which may represent atelectasis or pnuemonia Assessment: Tree Lantigua is a 64 y.o. male ??s/p Right thoracotomy, partial decortication, resection of anterior mediastinal mass??on 10/24/19??for a thymoma??c/b surgical site infection requiring??I&D??and??wound vac placement??x2??on 11/09/19??and 12/09/19,??now undergoing damp to damp dressing changes??with superficial infection that has resolved with changes in dressing and some oral abx. He has good healing of his wound. Plan: 1. If any issues, would proceed to TID dressing changes. If unable to pack the wound we will schedule for an outpatient opening of the wound to allow it to pack easier. I am fine with silver impregnated dressings. 2. 30 minutes of exercise daily at a minimum 3. RTC in [address] Chest 4. Follow up with PCP as scheduled 5. Wound check in 4 weeks or sooner if needed 6. Call with any questions or concerns JOSE ALVAREZ MD 03/30/2020 Thoracic Surgery [facility] * Clarissa Murphy, RN - 03/30/2020 9:00 AM ESTSummary: Wound Care Orders Daily wound care change of instruction. Please change to an AG impregnated wick per the wound care nurses request. Cover with a secondary dressing and secure with tape. If you are unable to pack the wound, please call so that we can re- assess and I and D if indicated for proper wound healing. Thank you Jose Alvarez MD documented in this encounter Plan of Treatment Not on file documented as of this encounter Visit Diagnoses Diagnosis Type A malignant thymoma Chest wall abscess Cellulitis and abscess of trunk Open wound of right chest wall with complication, subsequent encounter documented in this encounter Care Teams Cattle Dehorner Relationship Specialty Start Date End Date Christiana Moore APRN [address] [place] [address] PCP - General Family Medicine 09/26/19 documented as of this encounter
--- OUTSIDE RECORDS SUMMARY | 2023-11-12 02:15 | XMS_ITS | Encounter Summary ---
Author Organization [facility] [place] [address] Care Team Providers Care Dental Director Name Role Phone Christiana Moore APRN Primary Care Provider [phone] Encounter Details Date Type Department Care Team (Late st Contact Info) Description 03/15/2020 Telephone [place] [address] Clarissa Murphy RN Social History Tobacco Use [...] Telephone Encounter - Clarissa Murphy RN - 03/16/2020 11:10 AM ESTSummary: Change in frequency of VNA visits [facility] Tree's is having surgery and will be unable to perform his wound care March 23 through March 26, 2020. Please schedule daily visits those four days and then resume twice weekly visits the following week. Thank you, Quentin Carlin MD [phone] * Telephone Encounter - Clarissa Murphy RN - 03/15/2020 3:57 PM EST Phoned Adi and left a message for him to call and check in about his wound. His has been managing his wound, but was expected to have surgery next week. Checking in to see if he will need a VNA RN set up. documented in this encounter Plan of Treatment Not on file documented as of this encounter Visit Diagnoses Not on filedocumented in this encounter Care Teams Dental Director Relationship Specialty Start Date End Date Christiana Moore APRN [address] [place] [address] PCP - General Family Medicine 09/26/19 documented as of this encounter
--- OUTSIDE RECORDS SUMMARY | 2023-11-12 02:15 | XMS_ITS | Encounter Summary ---
Author Organization [facility] [place] [address] Care Team Providers Care Credit Card Specialist Name Role Phone Oscar Christiana DAVIS Primary Care Provider [phone] Reason for Visit * Reason Comments Cancer Encounter Details Date Type Department Care Team (Late st Contact Info) Description 01/27/2020 1:00 PM EDT Office Visit [place] [address] Jose Alvarez MD [facility] [place] [address] Type A malignant thymoma; Chest wall abscess; [...] Sign Reading Time Taken Comments Blood Pressure 124/92 01/27/2020 12:56 PM EDT Pulse 97 01/27/2020 12:56 PM EDT Temperature 37 ??C (98.6 ??F) 01/27/2020 12:56 PM EDT Respiratory Rate 19 01/27/2020 12:56 PM EDT Oxygen Saturation 98% 01/27/2020 12:56 PM EDT Inhaled Oxygen Concentration - - Weight 82.4 kg (181 lb 9.6 oz) 01/27/2020 12:56 PM EDT Height 179.8 cm (5' 10.79) 01/27/2020 12:56 PM EDT Body Mass Index 25.48 01/27/2020 12:56 PM EDT documented in this encounter Progress Notes * Jose Alvarez MD - 01/27/2020 1:00 PM EDT Thoracic Surgery Attending Outpatient Follow Up Note MD Fatou Nance PA-C [place] [address] FAX: Pre Op Dx:??mediastinal mass ?? Post Op Dx:??Thymoma ?? Procedure (10/24/19):??Bronchoscopy, right VATS with evacuation of pleural fluid and partial decortication, right thoracotomy with resection of anterior mediastinal mass, wedge resection x5 of the right lung ?? Pathology (10/24/19):??Anterior mediastinal mass -- 8.5 cm Thymoma, type A, confined to the thymus, -LVI, -Capsular invasion. Wedge resections RLL, RML and RUL- benign lymph nodes ?? Procedure (11/09/19): Right thoracotomy [...] today in clinic for a wound check. He was transitioned to damp to damp dressing on 01/09/2020 which the VNA have been doing twice weekly and his has been doing the changes otherwise. He notes a little more pain in the wound x 2 days however, notes that he was hanging blinds overhead recently. He denies f/c/n/v/SOB/drainage from the wound/redness/foul smell. Medications: Current Outpatient Medications on File Prior [...] prior to visit. Physical Exam: BP (!) 124/92 (Patient Position: Sitting) Pulse 97 Temp 37 ??C (98.6 ??F) (Temporal) Resp 19 Ht 179.8 cm (5' 10.79) Wt 82.4 kg (181 lb 9.6 oz) SpO2 98% BMI 25.48 kg/m?? General Appearance: Alert, cooperative, no distress, appears stated age Nk: Supple, symmetrical, trachea midline Lungs: Distant but clear to auscultation bilaterally, respirations unlabored, no wheezes, crackles or ronchi. Heart: Regular rate and rhythm, S1 and S2 normal, no murmur, rub, or gallop Abdomen: Soft, non-tender Extremities: Extremities normal, atraumatic, no cyanosis or edema Wound/Incision: Right thoracotomy wound with healing granulation tissue noted, no signs of infection. Wound measures ~ 69prn4bo and tunnels ~1 cm superiorly and 6cm inferior/anteior. Damp to damp dressing reapplied. Bacitracin applied to old incision with small area of excoriation noted Assessment: Tree Lantigua is a 64 y.o. male /p Right thoracotomy, partial decortication, resection of anteriormediastinal mass??on 10/24/19??for a thymoma c/b surgical site infection requiring I&D and woundvac placement??x2??on 11/09/19??and 12/09/19, now undergoing serial wound vac changes as outpatient. Hewas transitioned to damp to damp dressings on Sunday01/09/2020. his wound continues to heal well wit h healthy granulation tissue noted and no signs of infection Plan: 1. Continue damp to damp dressing changes as prior. Bacitracin to old incision BID x 3 days- patient instructions given 2. 30 minutes of exercise daily at a minimum 3. RTC for surveillance as scheduled 4. RCT in 3 weeks for wound check 5. Call with any questions Fatou Dong PA-C 01/27/2020 Thoracic Surgery [facility] I have seen the patient and reviewed the PA/resident's above history and I agree with the details as written. The assessment and plan were formulated in discussion with me and I agree with them as documented. Assessment: Tree Lantigua is a 64 y.o. male /p Right thoracotomy, partial decortication, resection of anteriormediastinal mass??on 10/24/19??for a thymoma c/b surgical site infection requiring I&D and woundvac placement??x2??on 11/09/19??and 12/09/19, now with damp to damp and healing nicely. Plan: 1. Continue damp to damp dressing changes as prior. Bacitracin to old incision BID x 3 days- patient instructions given 2. 30 minutes of exercise daily at a minimum 3. RTC for surveillance as scheduled 4. RCT in 3 weeks for wound check 5. Call with any questions JOSE ALVAREZ MD documented in this encounter Plan of Treatment Not on file documented as of this encounter Visit Diagnoses Diagnosis Type A malignant thymoma Chest wall abscess Cellulitis and abscess of trunk Open wound of right chest wall with complication, subsequent encounter documented in this encounter Care Teams Credit Card Specialist Relationship Specialty Start Date End Date Christiana Moore APRN [address] [place] [address] PCP - General Family Medicine 09/26/19 documented as of this encounter
--- OUTSIDE RECORDS SUMMARY | 2023-11-12 02:15 | XMS_ITS | Encounter Summary ---
Author Organization [facility] [place] [address] Care Team Providers Care Commonwealth Attorney Name Role Phone Christiana Moore APRN Primary Care Provider [phone] Encounter Details Date Type Department Care Team (Latest Contact Info) Description 03/14/2023 Travel Social History Tobacco Use Types Packs/Day [...] on filedocumented in this encounter Care Teams Commonwealth Attorney Relationship Specialty Start Date End Date Christiana Moore APRN [address] [place] [address] PCP - General Family Medicine 09/26/19 documented as of this encounter
--- OUTSIDE RECORDS SUMMARY | 2023-11-12 02:15 | XMS_ITS | Encounter Summary ---
Author Organization [facility] [place] [address] Care Team Providers Care Manager Of Project Management Name Role Phone Michael Moorey RYAN Primary Care Provider [phone] Encounter Details Date Type Department Care Team (Late st Contact Info) Description 03/25/2020 Telephone [place] [id number] Ramses Contreras MD [facility] [place] [address] Social History Tobacco Use Types Packs/Day Years [...] encounter Miscellaneous Notes * Telephone Encounter - Ramses Contreras MD - 03/25/2020 7:36 PM EST I was called by the transfer center regarding this patient who had presented to an outside hospitalED. Upon presentation there, he is afebrile with normal vital signs. Per my discussion with the provider there he looks and feels well. He did have some increased pain and some slightly increased serous slightly yellow drainage from his known thoracotomy incision wound infection. This had been packed by his visiting nurse earlier today. The packing was removed. Culture was taken. Blood cultures were sent. He has a mild leukocytosis of 11. Per report his other labs are otherwise within normal limits. The provider who is personally evaluating him did not feel that he required admission. The patientwishes to be able to go home. There is apparently no surrounding erythema or obvious fluctuance or i ncreased drainage able to be expressed from the wound. He had a CT scan of the chest with IV contrast performed there. I personally reviewed the images of the scan and compared it to his most recent imaging available which was back in November. There does not appear to be any obvious increased pleural effusion or evidence of empyema. There is no obvious abscess or undrained fluid collection. This was also the findings of the outside hospital interpreting radiologist. Given the above, it does not seem that the patient warrants admission or transfer here to [facility]. Review of his previous microbiology demonstrated a pansensitive staph aureus. He was last treated withBactrim which per report was several months ago. We discussed providing him with 10 days of double strength Bactrim and they will repack his wound with a saline wet-to-dry dressing. We will follow-up with him by telephone tomorrow to arrange short interval outpatient follow-up in clinic early next week. He should likely be able to see Dr. Carlin in the office on Sunday. documented in this encounter Plan of Treatment Not on file documented as of this encounter Visit Diagnoses Not on filedocumented in this encounter Care Teams Manager Of Project Management Relationship Specialty Start Date End Date Christiana Moore APRN [address] [place] [address] PCP - General Family Medicine 09/26/19 documented as of this encounter
--- OUTSIDE RECORDS SUMMARY | 2023-11-12 02:15 | XMS_ITS | Encounter Summary ---
Author Organization [facility] [place] [address] Care Team Providers Care Staff Anesthesiologist Name Role Phone Christiana Moore APRN Primary Care Provider [phone] Encounter Details Date Type Department Care Team (Latest Contact Info) Description 10/16/2022 Travel Social History Tobacco Use Types Packs/Day [...] on filedocumented in this encounter Care Teams Staff Anesthesiologist Relationship Specialty Start Date End Date Christiana Moore APRN [address] [place] [address] PCP - General Family Medicine 09/26/19 documented as of this encounter
--- OUTSIDE RECORDS SUMMARY | 2023-11-12 02:15 | XMS_ITS | Encounter Summary ---
Author Organization [facility] [place] [address] Care Team Providers Care Sitecore Developer Name Role Phone Christiana Moore APRN Primary Care Provider [phone] Encounter Details Date Type Department Care Team (Late st Contact Info) Description 08/14/2022 [place] [phone] Ana Rosa Vazquez Social History Tobacco Use Types Packs/Day Years [...] encounter Miscellaneous Notes * Telephone Encounter - Ana Rosa Vazquez - 08/14/2022 1:30 PM EDT BETINA: 08/14/22 LM for pt to call and schedule CT scan. (ORDOÑEZ) documented in this encounter Plan of Treatment Not on file documented as of this encounter Visit Diagnoses Not on filedocumented in this encounter Care Teams Sitecore Developer Relationship Specialty Start Date End Date Christiana Moore APRN [address] [place] [address] PCP - General Family Medicine 09/26/19 documented as of this encounter
--- OUTSIDE RECORDS SUMMARY | 2023-11-12 02:15 | XMS_ITS | Encounter Summary ---
Author Organization [facility] [place] [address] Care Team Providers Care Fryer Operator Name Role Phone Christiana Moore RYAN Primary Care Provider [phone] Reason for Referral * Diagnostic Test (Routine) - Closed Specialty Diagnoses / Procedures Referred By Contac t Referred To Contact Radiology Diagnoses Type A malignant thymoma Procedures CT Chest w Contrast Jose Alvarez MD [facility] [place] [address] [facility] [place] [address] Referral ID Status Reason Start Date Expiration Date V isits Requested Visits Authorized [id number] Closed Specialty Service Requested 02/24/2020 08/23/2021 1 1 Reason for Visit * Reason Comments Cancer thymoma Follow-up wound check Encounter Details Date Type Department Care Team (Late st Contact Info) Description 02/24/2020 11:45 AM EST Office Visit [place] [address] Jose Alvarez MD [facility] [place] [address] Type A malignant thymoma; Chest wall abscess; [...] Sign Reading Time Taken Comments Blood Pressure 133/86 02/24/2020 11:32 AM EST Pulse 96 02/24/2020 11:32 AM EST Temperature 36.8 ??C (98.2 ??F) 02/24/2020 11:[address] Respiratory Rate 16 02/24/2020 11:32 AM EST Oxygen Saturation 100% 02/24/2020 11:32 AM EST Inhaled Oxygen Concentration - - Weight 82.3 kg (181 lb 6.4 oz) 02/24/2020 11:32 AM EST Height 177.6 cm (5' 9.92) 02/24/2020 11:[address] Body Mass Index 26.09 02/24/2020 11:32 AM EST documented in this encounter Patient Instructions * Patient Instructions* Clarissa Murphy RN - 02/24/2020 11:45 AM EST Thank you for visiting Dr. Alvarez in clinic 02/24/20 Dr. Alvarez would like to see you [...] Progress Notes * Jose Alvarez MD - 02/24/2020 11:45 AM EST Thoracic Surgery Attending Outpatient Follow Up Note MD Fatou Nance PA-C [place], [place] [address] FAX: Pre Op Dx:??mediastinal mass ?? Post [...] thoracotomy incision with wound vac placement??x2??on 11/09/19??and 12/09/19.? He was seen last week in clinic and noted to have a suspected superficial wound infection, was given strict instructions on dressing changes/wound care/debridement and presents today for wound check. He reports his pain is still presented but greatly improved since last week as is the drainage. They have been doing TID wet to dry dressing changes. He denies f/c/n/v/SOB. Medications: Current Outpatient Medications on File Prior [...] file prior to visit. Physical Exam: BP 133/86 (Patient Position: Sitting) Pulse 96 Temp 36.8 ??C (98.2 ??F) (Temporal) Resp 16 Ht 177.6 cm (5' 9.92) Wt 82.3 kg (181 lb 6.4 oz) SpO2 100% BMI 26.09 kg/m?? General Appearance: Alert, cooperative, no distress, appears stated age Nk: Supple, symmetrical, trachea midline Lungs: Respirations unlabored on RA Heart: Regular rate Extremities: Extremities normal, atraumatic, no cyanosis or edema Wound/Incision: Right chest wound 4cm in length with decrease length of superior tunnel (~0.5cm) and stable inferior tunnel (3cm), granulation tissue noted, minimal purulent drainage, no erythema/fluctuance/induration noted Assessment: Tree Lantigua is a 64 y.o. male ??s/p Right thoracotomy, partial decortication, resection of anterior mediastinal mass??on 10/24/19??for a thymoma??c/b surgical site infection requiring??I&D??and??wound vac placement??x2??on 11/09/19??and 12/09/19,??now undergoing damp to damp dressing changes withresolving superficial infection. Plan: 1. Wound debrided in clinic today and packed with wet gauze in superior and inferior tunnel. Continue with wound debridement and three times daily dressing changes x 1 week, then may move to BID dressing changes. Continue to monitor for s/sx of infection and call with concerns 2. 30 minutes of exercise daily at a minimum 3. RTC for wound check one wound is closer to full closure or PRN 4. Call with any questions Fatou Dong PA-C 02/24/2020 Thoracic Surgery [facility] I have seen the patient and reviewed the PA/resident's above history and I agree with the details as written. The assessment and plan were formulated in discussion with me and I agree with them as documented. Assessment: Tree Lantigua is a 64 y.o. male ??s/p Right thoracotomy, partial decortication, resection of anterior mediastinal mass??on 10/24/19??for a thymoma??c/b surgical site infection requiring??I&D??nowundergoing damp to damp dressing changes with resolving superficial infection. Plan: 1. Wound debrided in clinic today and packed with wet gauze in superior and inferior tunnel. Continue with wound debridement and three times daily dressing changes x 1 week, then may move to BID dressing changes. Continue to monitor for s/sx of infection and call with concerns 2. 30 minutes of exercise daily at a minimum 3. RTC for wound check one wound is closer to full closure or PRN 4. Follow up in 6 months from operation (April 2020) for CT chest with contrast for surveillance for his thymoma. 5. Follow up with PCP as scheduled 6. Call with any questions JOSE ALVAREZ MD documented in this encounter Plan of Treatment Not on file documented as of this encounter Results * CT Chest w [...] who have questions please contact the health day care center director that requested your imaging first. ? Electronically signed by: Ava Islas MD, [facility] ([phone]), at 10/19/2020 3:01 PM Narrative 10/19/2020 3:01 [...] sagittal reformatted images were generated. COMPARISON: 03/25/2020 [facility]. FINDINGS: Pulmonary parenchyma: Chain suture in [...] andsagittal reformatted images were generated. COMPARISON: 03/25/2020 [facility]. FINDINGS: Pulmonary parenchyma: Chain suture in [...] patients who have questions please contactthe health day care center director that requested your imaging first. Electronically signed by: Ava Islas MD, [facility]([phone]), at 10/19/2020 3:01 PM Jose Alvarez MD IMG CT ORDERABLES documented in this encounter Visit Diagnoses Diagnosis Type A malignant thymoma Chest wall abscess Cellulitis and abscess of trunk Open wound of right chest wall with complication, subsequent encounter Type A malignant thymoma documented in this encounter Care Teams Fryer Operator Relationship Specialty Start Date End Date Christiana Moore APRN [address] [place] [address] PCP - General Family Medicine 09/26/19 documented as of this encounter
--- OUTSIDE RECORDS SUMMARY | 2023-11-12 02:15 | XMS_ITS | Encounter Summary ---
Author Organization [facility] [place] [address] Care Team Providers Care Warehouse Shipping Supervisor Name Role Phone Christiana Moore RYAN Primary Care Provider [phone] Reason for Referral * Diagnostic Test (Routine) - Closed Specialty Diagnoses / Procedures Referred By Contac t Referred To Contact Radiology Diagnoses Type A malignant thymoma Procedures CT Chest w Contrast Jose Alvarez MD [facility] [place] [address] [facility] [place] [address] Referral ID Status Reason Start Date Expiration Date V isits Requested Visits Authorized [id number] Closed Specialty Service Requested 10/19/2020 04/21/2022 1 1 Reason for Visit * Reason Comments Cancer Encounter Details Date Type Department Care Team (Late st Contact Info) Description 10/19/2020 1:15 PM EDT Office [place] [address] Jose Alvarez MD [facility] [place] [address] Type A malignant thymoma Social [...] Sign Reading Time Taken Comments Blood Pressure 137/99 10/19/2020 1:07 PM EDT Pulse 85 10/19/2020 1:07 PM EDT Temperature 36 ??C (96.8 ??F) 10/19/2020 1:07 PM EDT Respiratory Rate 16 10/19/2020 1:07 PM EDT Oxygen Saturation 99% 10/19/2020 1:07 PM EDT Inhaled Oxygen Concentration - - Weight 81.5 kg (179 lb 9.6 oz) 10/19/2020 1:07 P M EDT Height 178 cm (5' 10.08) 10/19/2020 1:07 PM EDT Body Mass Index 25.71 10/19/2020 1:07 PM EDT documented in this encounter Patient Instructions * Patient Instructions* Clarissa Murphy RN - 10/19/2020 1:15 PM EDT Thank you for visiting Dr. Alvarez in clinic 10/19/20 Dr. Alvarez would like to see you [...] documented in this encounter Progress Notes * Festus Perez - 10/19/2020 1:15 PM EDT Thoracic Surgery Outpatient Follow Up Note [facility] [address] [place] [address] FAX: Pre Op Dx: mediastinal mass Post Op Dx: Thymoma, Type A, stage I Procedure (10/24/19): Bronchoscopy, right VATS with evacuation of pleural fluid and partial decortication, right thoracotomy with resection of anterior mediastinal mass, wedge resection x5 of the right lung Pathology (10/24/19): Anterior mediastinal mass -- 8.5 cm??Thymoma, type A,??confined to the thymus,-LVI, -Capsular invasion. Wedge resections RLL, RML and RUL-??benign lymph nodes (11/09/19): Right thoracotomy incision I&D and wound vac placement (12/09/19): Right thoracotomy incision I&D and wound vac placement Complications: Surgical site infection Treatment: Surveillance for thymoma HPI: Tree Lantigua is a 65 year old male with hx malignant Type A Thymoma s/p Right thoracotomy with partial decortication and resection of anterior mass, with 3 wedge resections on 10/24/2019. He represented to the hospital on 11/09/19 with a Right thoracotomy surgical site infection and is now s/p I&D of the Right thoracotomy incision with wound vac placement??x2??on 11/09/19??and 12/09/19. Mr. Vicente brown is back in clinic today for a routine follow-up visit. The patient reports feeling much improved after his surgery and subsequent infections, almost back to his baseline. He has no pain at any of the incision sites, it sometimes feels a little numb. He is getting his strength back, trying to walk 2 miles a day and beginning to bike as well; he chops firewood and does other activities around his property. Feels almost back to 100%. 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 He denies nausea/vomiting, MARTI, chest pain, weight loss. No changes in his voice or his ability to swallow. No N/V, F/C, no MARTI CP. No wt Loss. No smokings NO changes in his voice, ability to swallow. Hypertensive today 137/99 however the patient reports running from CT scan to lab draw etc. Sees PCP and has never had abnormal BPs. Medications: Current Outpatient Medications on File Prior to Visit Medication Sig Dispense Refill ??? ibuprofen (Advil;Motrin) 200 mg Tablet Take 3 tablets by mouth every 6 hours. ??? acetaminophen (Tylenol) 500 mg Tablet Take 2 tablets by mouth every 6 hours. 30 tablet 0 ??? senna (Senokot) 8.6 mg Tablet Take 2 tablets by mouth every evening. 60 tablet 0 Current Facility-Administered Medications on File Prior to Visit Medication Dose Route Frequency Provider Last Rate Last Admin ??? [COMPLETED] iohexoL (Omnipaque) (350 mg/mL) injection solution 0-200 mL 0- 200 mL Intravenous Once PRN Cari Jarvis MD 60 mL at 10/19/20 1251 Physical Exam: BP (!) 137/99 (Patient Position: Sitting) Pulse 85 Temp 36 ??C (96.8 ??F) (Temporal) Resp 16 Ht 178 cm (5' 10.08) Wt 81.5 kg (179 lb 9.6 oz) SpO2 99% BMI 25.71 kg/m?? General Appearance: Alert, cooperative, no distress, appears stated age Nk: Supple, symmetrical, no adenopathy Lungs: Crackles at R base clears with deep inspiration, otherwise CTAB, respirations unlabored, no wheezes or rhonchi Heart: Regular rate and rhythm, S1 and S2 normal, III-IV/ systolic murmur best appreciated at RUSB Abdomen: Soft, non-tender, non-distended Extremities: Extremities normal, atraumatic, no cyanosis or edema Wound/Incision: Clean, dry, intact, with evidence of good wound healing Imaging: I have independently visualized the following studies: CT Chest (10/19/2020): 1. No findings for resection site recurrence. 2. Unchanged bilateral pulmonary nodules allowing for differential respiratory motion artifact on the studies. Many of the nodules appear consistent with intrapulmonary lymph nodes. No appreciable new or enlarging nodules. 3. Slightly decreased small right and very small left pleural effusions. Assessment: Tree Lantigua is a 65 y.o. male s/p Right thoracotomy, partial decortication, resection of anterior mediastinal mass on 10/24/19 for a Type A stage I thymoma, course c/b surgical site infection requiring I&D and wound vac placement x2 on 11/09/19 and 12/09/19. He is currently doing quite well with complete healing of his surgical site wounds, is functionally nearing his pre-surgery baseline, and has no signs of recurrence on chest CT. Plan: 1. RTC in [address] Chest 2. Continue 30 minutes of exercise daily at a minimum 3. Follow-up with rheum as scheduled 4. Follow-up with PCP for BP surveillance 5. Call with any questions Fsetus Ana, MS4 This case was discussed with Attending Physician: Dr. Jose Alvarez I have seen the patient and reviewed the medical student's above history. The assessment and plan were formulated in discussion with me. Please see my note for details. JOSE ALVAREZ MD * Jose Alvarez MD - 10/19/2020 1:15 PM EDT Thoracic Surgery Outpatient Follow Up Note Jose Alvarez MD [place] [address] FAX: Pre Op Dx: mediastinal mass Post Op Dx: Thymoma, Type A, stage I Procedure (10/24/19): Bronchoscopy, right VATS with evacuation of pleural fluid and partial decortication, right thoracotomy with resection of anterior mediastinal mass, wedge resection x5 of the right lung Pathology (10/24/19): Anterior mediastinal mass -- 8.5 cm??Thymoma, type A,??confined to the thymus,-LVI, -Capsular invasion. Wedge resections RLL, RML and RUL-??benign lymph nodes (11/09/19): Right thoracotomy incision I&D and wound vac placement (12/09/19): Right thoracotomy incision I&D and wound vac placement Complications: Surgical site infection -- ultimately healed with abx, debridement and VAC placement Treatment: Surveillance for thymoma HPI: Tree Lantigua is back in clinic today for a routine follow-up visit. The patient reports feeling much improved after his surgery and subsequent infections, almost back to his baseline. He has no pain at any of the incision sites, it sometimes feels a little numb. He is getting his strength back, trying to walk 2 miles a day and beginning to bike as well; he chops firewood and does other activities around his property. Feels almost back to 100%. 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 He denies nausea/vomiting, MARTI, chest pain, weight loss. No changes in his voice or his ability to swallow. No N/V, F/C, no MARTI CP. No wt Loss. No smokings NO changes in his voice, ability to swallow. Medications: Current Outpatient Medications on File Prior to Visit Medication Sig Dispense Refill ??? ibuprofen (Advil;Motrin) 200 mg Tablet Take 3 tablets by mouth every 6 hours. ??? acetaminophen (Tylenol) 500 mg Tablet Take 2 tablets by mouth every 6 hours. 30 tablet 0 ??? senna (Senokot) 8.6 mg Tablet Take 2 tablets by mouth every evening. 60 tablet 0 Current Facility-Administered Medications on File Prior to Visit Medication Dose Route Frequency Provider Last Rate Last Admin ??? [COMPLETED] iohexoL (Omnipaque) (350 mg/mL) injection solution 0-200 mL 0- 200 mL Intravenous Once PRN Cari Jarvis MD 60 mL at 10/19/20 1251 Physical Exam: BP (!) 137/99 (Patient Position: Sitting) Pulse 85 Temp 36 ??C (96.8 ??F) (Temporal) Resp 16 Ht 178 cm (5' 10.08) Wt 81.5 kg (179 lb 9.6 oz) SpO2 99% BMI 25.71 kg/m?? General Appearance: Alert, cooperative, no distress, appears stated age Nk: Supple, symmetrical, no adenopathy Lungs: Crackles at R base clears with deep inspiration, otherwise CTAB, respirations unlabored, no wheezes or rhonchi Heart: Regular rate and rhythm, S1 and S2 normal, III-IV/ systolic murmur best appreciated at RUSB Abdomen: Soft, non-tender, non-distended, NABS. Extremities: Extremities normal, atraumatic, no cyanosis or edema Wound/Incision: Thoracotomy incision is completely healed, no evidence of infection, non-tender Imaging: I have independently visualized the following studies: CT Chest (10/19/2020): 1. No findings for resection site recurrence. 2. Unchanged bilateral pulmonary nodules allowing for differential respiratory motion artifact on the studies. Many of the nodules appear consistent with intrapulmonary lymph nodes. No appreciable new or enlarging nodules. 3. Slightly decreased small right and very small left pleural effusions. Assessment: Tree Lantigua is a 65 y.o. male s/p Right thoracotomy, partial decortication, resection of anterior mediastinal mass on 10/24/19 for a Type A stage I thymoma, course c/b surgical site infection requiring I&D and wound vac placement x2 on 11/09/19 and 12/09/19. His surgical site wounds are healed, is functionally nearing his pre-surgery baseline, and is [place]. Plan: 1. RTC in [address] Chest 2. Continue 30 minutes of exercise daily at a minimum -- he should continue to increase his level of activity and push his exercise tolerance 3. Follow-up with rheum as scheduled for his joint pains 4. Follow-up with PCP for BP -- it is likely just him rushing around today. He is having no symptoms currently. 5. Call with any questions. JOSE ALVAREZ MD documented in this encounter [...] who have questions please contact the health clinical care leader that requested your imaging first. ? Narrative [...] patients who have questions please contactthe health clinical care leader that requested your imaging first. Jose Alvarez MD IM CT ORDERABLES * (ABNORMAL) Creatinine (03/22/2021 1:01 PM EST) Creatinine 0.75(L) 0.80 - 1.50 mg/dL [facility] Est Glomerular Filtration Rate 96 >=60 mL/min/1. 73 m?? [facility] Comment: This patient? 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
--- OUTSIDE RECORDS SUMMARY | 2023-11-12 02:15 | XMS_ITS | Encounter Summary ---
[place] [address] Care Team Providers Care Margarine Churn Operator Name Role Phone Christiana Moore APRN Primary Care Provider [phone] Reason for Referral * Diagnostic Test (Routine) - Closed Specialty Diagnoses / Procedures Referred By Ankit hong Referred To Contact Radiology Diagnoses Thymoma Multiple nodules of lung Procedures CT Chest w Contrast Christiana Moore APRN [address] [place] [address] [facility] [place] [address] Referral ID Status Reason Start Date Expiration Date V isits Requested Visits Authorized [id number] Closed Specialty Service Requested 08/17/2021 02/17/2023 1 1 Reason for Visit * Diagnostic Test (Routine) - Closed Specialty Diagnoses / Procedures Referred By Ankit hong Referred To Contact Radiology Diagnoses Thymoma Multiple nodules of lung Procedures CT Chest w Contrast Christiana Moore APRN [address] [place] [address] [facility] [place] [address] Referral ID Status Reason Start Date Expiration Date V isits Requested Visits Authorized [id number] Closed Specialty Service Requested 08/17/2021 02/17/2023 1 1 Encounter Details Date Type Department Care Team (Latest Contact Info) Description 10/18/2021 12:46 PM EDT - 10/18/2021 11:59 PM EDT Hospital [place] [address] Christiana Moore APRN [address] [place] [address] Thymoma; Multiple nodules of lung Discharge Disposition: Home Social History Tobacco Use [...] Diagnosis Comments CT CHEST W CONTRAST Routine 10/18/2021 1 :49 PM EDT Thymoma Multiple nodules of lung documented in this encounter Results * CT Chest w Contrast (10/18/2021 1:49 PM EDT) Anatomical Region Laterality Modality Chest Computed Tomogra phy 10/18/2021 2:10 PM EDT Impressions 10/18/2021 3:15 PM EDT Bilateral pulmonary nodules remain stable. No new or enlarging nodules. I have personally reviewed the image(s) and the resident's interpretation and agree with the findings, Quentin Smith, DO at 10/18/2021 3:15 PM Thank you for letting us participate in the care of this patient. ??If you are a health care provider and have any questions regarding this report, please contact the number below. ??For patients who have questions please contact the health manager managed care that requested your imaging first. ? Narrative 10/18/2021 3:15 PM EDT EXAMINATION: CT CHEST W CONTRAST CLINICAL HISTORY: Multiple lung nodules. TECHNIQUE: 3.75 mm thick axial contiguous sections were obtained through the chest via helical acquisition after the intravenous administration of 60.0 ml of OMNIPAQUE 350.00 mg/ml. Thin-section reconstructions as well as coronal and sagittal reformatted images were generated. COMPARISON: Chest CT 03/22/2021 FINDINGS: Retail Support Manager images: Noncontributory Pulmonary parenchyma: Suture material and adjacent linear scarring in the right lung as before. Linear scarring in the left lower lobe is unchanged. The previously seen bilateral pulmonary nodules are all stable. Many of these follow the fissure lines, the pleura, or pulmonary vessels and are likely intrapulmonary lymph nodes. No new or enlarging nodules. Airways: Airways are patent. No endobronchial or endotracheal lesions. Pleura: Trace bilateral pleural effusions, unchanged. Small areas of pleural thickening dorsally, unchanged. No pneumothorax. Lymph nodes: No lymphadenopathy. Heart, pericardium, and great vessels: Heart is normal in size. No pericardial effusion. Three-vessel aortic arch. Visualized great vessels are normal in course and caliber. Other mediastinal structures: Surgical material in the anterior mediastinum status post thymectomy. No new or enlarging soft tissue growth in the region of resection. Preserved mediastinal fat. Limited evaluation of the esophagus is unremarkable. Lower neck: Visualized structures in the inferior neck are unremarkable. Upper abdomen: Unchanged renal cysts bilaterally. Adrenal contours are normal. Body wall soft tissues: No significant findings. Skeletal structures: Bridging osteophytes in the thoracic spine. No suspicious osseous lesions. Procedure Note Quentin Smith DO - 10/18/2021 EXAMINATION: CT CHEST W CONTRAST CLINICAL HISTORY: Multiple lung nodules. TECHNIQUE: 3.75 mm thick axial contiguous sections were obtained throughthe chest via helical acquisition after the intravenous administration of 60.0ml of OMNIPAQUE 350.00 mg/ml. Thin-section reconstructions as well as coronaland sagittal reformatted images were generated. COMPARISON: Chest CT 03/22/2021 FINDINGS: Retail Support Manager images: Noncontributory Pulmonary parenchyma: Suture material and adjacent linear scarring in theright lung as before. Linear scarring in the left lower lobe is unchanged. The previously seen bilateral pulmonary nodules are all stable. Many of thesefollow the fissure lines, the pleura, or pulmonary vessels and are likely intrapulmonary lymph nodes. No new or enlarging nodules. Airways: Airways are patent. No endobronchial or endotracheal lesions. Pleura: Trace bilateral pleural effusions, unchanged. Small areas ofpleural thickening dorsally, unchanged. No pneumothorax. Lymph nodes: No lymphadenopathy. Heart, pericardium, and great vessels: Heart is normal in size. Nopericardial effusion. Three-vessel aortic arch. Visualized great vessels are normalin course and caliber. Other mediastinal structures: Surgical material in the anteriormediastinum status post thymectomy. No new or enlarging soft tissue growth in theregion of resection. Preserved mediastinal fat. Limited evaluation of the esophagusis unremarkable. Lower neck: Visualized structures in the inferior neck are unremarkable. Upper abdomen: Unchanged renal cysts bilaterally. Adrenal contours arenormal. Body wall soft tissues: No significant findings. Skeletal structures: Bridging osteophytes in the thoracic spine. Nosuspicious osseous lesions. IMPRESSION Bilateral pulmonary nodules remain stable. No new or enlarging nodules. I have personally reviewed the image(s) and the resident's interpretationand agree with the findings, Quentin Smith DO at 10/18/2021 3:15 PM Thank you for letting us participate in the care of this patient. If youare a health care provider and have any questions regarding this report,please contact the number below. For patients who have questions please contactthe health manager managed care that requested your imaging first. Christiana Moore LACQUERER IMG CT ORDERABLES documented in this encounter Visit Diagnoses Diagnosis Thymoma Benign neoplasm of thymus Multiple nodules of lung Other nonspecific abnormal finding of lung field documented in this encounter Administered Medications Inactive Administered Medications - up to 3 most recent administrations Medication Order MAR Action Action Date Dose Rate Site iohexoL (Omnipaque) (350 mg/mL) solution 0-200 mL 0-200 mL, Intravenous, ONCE PRN, 1 dose, Starting on Sun10/18/21 at 1328, Until Sun10/18/21 at 1349, Per Protocol, Warning Vesicant/Irritant Medication , Radiology Contrast, Routine Given 10/18/2021 1:49 PM EDT 60 mLs documented in this encounter Care Teams Margarine Churn Operator Relationship Specialty Start Date End Date Christiana Moore, RYAN [address] [place] [address] PCP - General Family Medicine 09/26/19 documented as of this encounter
--- OUTSIDE RECORDS SUMMARY | 2023-11-12 02:15 | XMS_ITS | Encounter Summary ---
[place] [address] Care Team Providers Care Center Consultant Name Role Phone Christiana Moore APRN Primary Care Provider [phone] Reason for Visit * Reason Onset Date Comments Other 01/06/2020 Encounter Details Date Type Department Care Team (Late st Contact Info) Description 01/06/2020 Telephone [place] [phone] Monica Price RN Other Social History Tobacco [...] Telephone Encounter - Monica Price RN - 01/06/2020 3:39 PM EDT [facility] - [phone] Spoke with [facility] Wound Vac removal on Sunday then wet to dry dressings twice a day. She was grateful for the information documented in this encounter Plan of Treatment Not on file documented as of this encounter Visit Diagnoses Not on filedocumented in this encounter Care Teams Center Consultant Relationship Specialty Start Date End Date Christiana Moore APRN [address] [place] [address] PCP - General Family Medicine 09/26/19 documented as of this encounter
--- OUTSIDE RECORDS SUMMARY | 2023-11-12 02:15 | XMS_ITS | Encounter Summary ---
Author Organization [facility] [place] [address] Care Team Providers Care Social Scientist Name Role Phone Oscar Christiana RYAN Primary Care Provider [phone] Encounter Details Date Type Department Care Team (Late st Contact Info) Description 04/20/2020 Telephone [place] [id number] Monica Price RN Social History Tobacco Use Types Packs/Day [...] Telephone Encounter - Monica Price RN - 04/20/2020 4:39 PM EST Images from the original note were not included. TC from [facility] with [facility] HX: s/p I & D of right thoracotomy incision, wound vac in place since 11/10/19 discharged on 11/14/19?s/p R VATS for resection of anterior mediastinal mass and 5x wedge biopsies of the R lung on 10/24/2019s/p R VATS for resection of anterior mediastinal mass and 5x wedge biopsies of the R lung on10/24/2019 Liza is calling with an update. Mr. Lantigua's right thoracotomy incision has increased swelling since last night and more since this morning's dressing change. Mr. Lantigua denies any fevers, chills, sweats, pain, redness. There is swelling and Liza and Lillian continue to do twice a day aquacel AG packing dressing changes. Liza cannot pack this wound as it is difficult to get the q-tip into the site. There was some goopy drainage noted that did not have an odor. Discussed with Dr. Li and Dr. Contreras, with a plan to take a photo of his entire back, as wellas the wound again in the morning. If there is any change noted, fevers, chills, increasing pain, Mr. Lantigua will head to his local ED. If not Clarissa will check in tomorrow morning. Everyone is in agreement with this plan. documented in this encounter Plan of Treatment Not on file documented as of this encounter Visit Diagnoses Not on filedocumented in this encounter Care Teams Social Scientist Relationship Specialty Start Date End Date Christiana Moore APRN [address] [place] [address] PCP - General Family Medicine 09/26/19 documented as of this encounter
--- OUTSIDE RECORDS SUMMARY | 2023-11-12 02:16 | XMS_ITS | Encounter Summary ---
Author Organization [facility] [place] [address] Care Team Providers Care Host/Hostess Restaurant Name Role Phone Oscar Christiana DAVIS Primary Care Provider [phone] Reason for Visit * Reason Comments Cancer Encounter Details Date Type Department Care Team (Late st Contact Info) Description 01/06/2020 12:30 PM EDT Office Visit [place] [address] Jose Alvarez MD [facility] DR THORACIC [place] [address] Type A malignant thymoma Social History Tobacco [...] Sign Reading Time Taken Comments Blood Pressure 126/77 01/06/2020 12:33 PM EDT Pulse 90 01/06/2020 12:33 PM EDT Temperature 37 ??C (98.6 ??F) 01/06/2020 12:33 PM EDT Respiratory Rate 18 01/06/2020 12:33 PM EDT Oxygen Saturation 98% 01/06/2020 12:33 PM EDT Inhaled Oxygen Concentration - - Weight 80.5 kg (177 lb 6.4 oz) 01/06/2020 12:33 PM EDT Height 181.7 cm (5' 11.54) 01/06/2020 12:33 PM EDT Body Mass Index 24.37 01/06/2020 12:33 PM EDT documented in this encounter Patient Instructions * Patient Instructions* Monica Price RN - 01/06/2020 12:30 PM EDT Thank you for visiting Dr. Alvarez in clinic 01/06/20 Dr. Alvarez would like to see you back in clinic in 3 weeks. You will receive a letter in the mail/call to schedule this appointment. DRESSING: TWICE A DAY DRESSING: DAMP GAUZE (4x4 with saline) TO DAMP GAUZE (4x4 with saline) Apply tape. Take a shower, remove all the dressings, wash with soap and water and rinse really well. Pat dry. Apply dressings after. ?? Exercise each day for 30 minutes [...] Progress Notes * Jose Alvarez MD - 01/06/2020 12:30 PM EDT Thoracic Surgery Attending Outpatient Follow Up Note MD Fatou Nance PA-C [place] [address] FAX: Pre Op Dx:??mediastinal mass ?? Post Op Dx:??Thymoma ?? 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 Wedge resections RLL, RML and RUL- benign lymph nodes ?? Procedure (11/09/19): Right thoracotomy incision I&D and wound vac placement ?? Procedure (12/09/19): Right thoracotomy incision I&D and wound vac placement ?? Complications:??Surgical site infection ?? Treatment:??wound vac changes per VNA, surveillance for thymoma ?? HPI: Tree Lantigua is a 64 y.o. male who is s/p Right thoracotomy, partial decortication, resection of anterior mediastinal mass??on 10/24/19??for a thymoma.??He represented to the hospital on 11/09/19with a Right thoracotomy surgical site infection and is now s/p I&D of the Right thoracotomy incision with wound vac placement??x2??on 11/09/19??and 12/09/19.??He presents today in clinic for a woundvac change. He reports his pain is improving and he is no longer taking any medications for pain. He remains onthe Bactrim and has 2 more days left. He denies f/c/n/v/SOB/CP. The [facility]NA changed the wound vac yesterday. Medications: Current Outpatient Medications on File Prior to Visit Medication Sig Dispense Refill ??? sulfamethoxazole-trimethoprim DS (Bactrim DS) 800-160 mg Tablet Take 1 tablet by mouth 2 times daily. 36 tablet 0 ??? oxyCODONE (Roxicodone) 5 [...] file prior to visit. Physical Exam: BP 126/77 (Patient Position: Sitting) Pulse 90 Temp 37 ??C (98.6 ??F) (Temporal) Resp 18 Ht181.7 cm (5' 11.54) Wt 80.5 kg (177 lb 6.4 oz) SpO2 98% BMI 24.37 kg/m?? General Appearance: Alert, cooperative, no distress, appears stated age Nk: Supple, symmetrical, trachea midline Lungs: Clear to auscultation bilaterally, respirations unlabored, no wheezes, crackles or ronchi. Heart: Regular rate and rhythm, S1 and S2 normal, no murmur, rub, or gallop Abdomen: Soft, non-tender Extremities: Extremities normal, atraumatic, no cyanosis or edema Wound/Incision: Right wound vac in place- please see procedure note for details Assessment: Tree Lantigua is a 64 y.o. male s/p Right thoracotomy, partial decortication, resection of anterior mediastinal mass??on 10/24/19??for a thymoma c/b surgical site infection requiring I&D and wound vac placement??x2??on 11/09/19??and 12/09/19, now undergoing serial wound vac changes as outpatient. The wound is healing well and he will be transitioned to damp to damp dressings on Sunday01/09/2020. Plan: 1. VNA to remove wound vac on Sunday01/09/2020 and begin damp to damp dressing. This should be changed twice daily. His is willing to do these dressing changes when the VNA are unable and she was instructed on how to do this in clinic today. Patient instructed to shower before dressing changes, wash with soap and water, pat dry and replace damp to damp dressing with tunneling into wound at superior and inferior aspect. 2. 30 minutes of exercise daily at a minimum 3. RTC in 5 month from surgery with a CT Chest with for surveillance 4. RTC in 3 weeks to assess wound or sooner if s/sx present (purulent drainage, foul smell, worsening pain etc) 5. Call with any questions Fatou Dong PA-C 01/06/2020 Thoracic Surgery [facility] I have seen the patient and reviewed the PA/resident's above history and I agree with the details as written. The assessment and plan were formulated in discussion with me and I agree with them as documented. We will stop the VAC dressing changes and move to damp to damp BID dressing changes. His was shown how to do them and instructed that they must get up under the scapula to the deeper areas of the wound. They can wash with soap and water. F/U in 3 weeks for re-eval of wound. If it gets worse, they should call us sooner Will need CT chest in 5 months JOSE ALVAREZ MD documented in this encounter Procedure Notes * Jose Alvarez MD - 01/06/2020 12:30 PM EDTProcedure(s): DRESSING CHANGE, WOUND VAC > 50SQ CM Pre-Procedure Diagnose(s): Deep postoperative wound infection Post-Procedure Diagnose(s): Deep postoperative wound infection Wound vac was??changed??in clinic??for right surgical thoracotomy site incision. Wound bed appearedclean with pink granulation tissue.??Two??black sponges??tunneled into the wound; one tunneled superiorly approximately??3??cm and the second tunneled inferomedially ~4cm. A three sponge was placed to fill the remainder of the one and a 4th black sponge was place laterally so the matthew pad was located on his lateral chest wall.??Wound size at greatest length and depth is 13??cm x 3??cm x 2 cm.??Wound vac placed to low continuous -125 mmHg suction and holding. Fatou Dong PA-C 01/06/2020 Thoracic Surgery [facility] ??I was the attending physician supervising the resident in the above care and participated in the dressing change. JOSE ALVAREZ MD documented in this encounter Plan of Treatment Not on file documented as of this encounter Visit Diagnoses Diagnosis Type A malignant thymoma documented in this encounter Care Teams Host/Hostess Restaurant Relationship Specialty Start Date End Date Christiana Moore APRN [address] [place] [address] PCP - General Family Medicine 09/26/19 documented as of this encounter
--- OUTSIDE RECORDS SUMMARY | 2023-11-12 02:16 | XMS_ITS | Encounter Summary ---
Author Organization [facility] [place] [address] Care Team Providers Care Talent Sourcer Name Role Phone Oscar Christiana DAVIS Primary Care Provider [phone] Reason for Visit * Reason Comments Cancer Encounter Details Date Type Department Care Team (Late st Contact Info) Description 12/19/2019 1:00 PM EDT Office Visit [place] [address] Jose Alvarez MD [facility] [place] [address] Type A malignant thymoma; Chest wall abscess Social History Tobacco Use [...] Sign Reading Time Taken Comments Blood Pressure 105/72 12/19/2019 12:49 PM EDT Pulse 108 12/19/2019 12:49 PM EDT Temperature 36.6 ??C (97.9 ??F) 12/19/2019 12:49 PM E DT Respiratory Rate 18 12/19/2019 12:49 PM EDT Oxygen Saturation 98% 12/19/2019 12:49 PM EDT Inhaled Oxygen Concentration - - Weight 79 kg (174 lb 1.6 oz) 12/19/2019 12:49 PM EDT Height 181.3 cm (5' 11.38) 12/19/2019 12:49 PM EDT Body Mass Index 24.03 12/19/2019 12:49 PM EDT documented in this encounter Progress Notes * Bella ArteagaRYAN - 12/19/2019 1:00 PM EDT Thoracic Surgery Attending Outpatient Follow Up Note Jose Alvarez MD [place] [address] FAX: Pre Op Dx:??mediastinal mass ?? Post Op Dx:??Thymoma ?? Procedure (10/24/19):??Bronchoscopy, right VATS with evacuation of pleural fluid and partial decortication, right thoracotomy with resection of anterior mediastinal mass, wedge resection x5 of the right lung Pathology (10/24/19):??Thymoma, type A, wedge resection with benign lymph nodes ?? Procedure (11/09/19): Right thoracotomy incision I&D and wound vac placement ?? Procedure (12/09/19): Right thoracotomy incision I&D and wound vac placement ?? Complications:??Surgical site infection ?? Treatment:??wound vac changes per VNA, surveillance for thymoma HPI: Tree Lantigua is a 64 y.o. male who is s/p Right thoracotomy, partial decortication, resection of anterior mediastinal mass??on 10/24/19??for a thymoma.??He represented to the hospital on 11/09/19with a Right thoracotomy surgical site infection and is now s/p I&D of the Right thoracotomy incision with wound vac placement x2 on 11/09/19 and 12/09/19. He presents today in clinic for a wound vacchange. He reports his pain is improving and he is only taking oxycodone for wound vac changes. He remains on the Bactrim and denies side effects. He denies f/c/n/v/SOB/CP. Medications: Current Outpatient Medications on File Prior to Visit Medication Sig Dispense Refill ??? docusate sodium (Colace) 100 mg Capsule Take 1 capsule by mouth 2 times daily for 10 days. 20 capsule 0 ??? [DISCONTINUED] sulfamethoxazole-trimethoprim DS (Bactrim DS) 800-160 mg Tablet Take 1 tablet bymouth 2 times daily. 28 tablet 0 ??? ibuprofen (Advil;Motrin) 200 mg Tablet Take 3 tablets by mouth every 6 hours. ??? acetaminophen (Tylenol) 500 mg Tablet Take 2 tablets by mouth every 6 hours. 30 tablet 0 ??? senna (Senokot) 8.6 mg Tablet Take 2 tablets by mouth every evening. 60 tablet 0 ??? oxyCODONE (Roxicodone) 5 mg Tablet Take 1 tablet by mouth every 8 hours as needed for Pain. (Patient not taking: Reported on 12/19/2019) 10 tablet 0 No current facility-administered medications on file prior to visit. Physical Exam: BP 105/72 (Patient Position: Sitting) Pulse (!) 108 Temp 36.6 ??C (97.9 ??F) (Temporal) Resp 18 Ht 181.3 cm (5' 11.38) Wt 79 kg (174 lb 1.6 oz) SpO2 98% BMI 24.03 kg/m?? General Appearance: Alert, cooperative, no distress, appears stated age Nk: Supple, symmetrical, trachea midline Lungs: Non-labored breathing on RA Heart: Appears well perfused Wound/Incision: Healing Right thoracotomy incision with wound vac in place Assessment: Tree Lantigua is a 64 y.o. male s/p Right thoracotomy, partial decortication, resection of anterior mediastinal mass??on 10/24/19??for a thymoma.??He represented to the hospital on 11/09/19 with a Right thoracotomy surgical site infection and is now s/p I&D of the Right thoracotomy incision with wound vac placement x2 on 11/09/19 and 12/09/19. His wound appears to be healing well with wound vac in place. Plan: 1. Wound vac changed in clinic 2. 30 minutes of exercise daily at a minimum 3. RTC in 2 weeks for a wound vac change 4. Continue Bactrim BID 5. Call with any questions or concerns Bella Arteaga, DISTRIBUTION SALES REPRESENTATIVE 12/19/2019 Thoracic Surgery [facility] I have reviewed the SHIPFITTER HELPER's above history and I agree with the details as written. The assessment and plan were formulated in discussion with me and I agree with them as documented. JOSE ALVAREZ MD documented in this encounter Procedure Notes * Bella Arteaga APRN - 12/19/2019 1:00 PM EDTProcedure(s): DRESSING CHANGE, WOUND VAC > 50SQ CM Pre-Procedure Diagnose(s): Deep incisional surgical site infection Post-Procedure Diagnose(s): Deep incisional surgical site infection Wound vac was??changed??in clinic for right surgical thoracotomy site incision. Wound bed appeared clean with pink granulation tissue.??Two??black sponges??were??placed, one tunneled superiorly approximately 3 cm and the second placed on top to fill the rest of the wound.??A bridge was placed on top so the matthew pad was located on his lateral chest wall. Wound size 13 cm x 3 cm x 2 cm.??Held suction. Wound vac to low continuous -125 mmHg suction. ?? Bella Arteaga APRN 12/11/2019 I was the attending physician supervising the SHIPFITTER HELPER in the above care and was available for the entireprocedure. JOSE ALVAREZ MD documented in this encounter Plan of Treatment Not on file documented as of this encounter Visit Diagnoses Diagnosis Type A malignant thymoma Chest wall abscess Cellulitis and abscess of trunk documented in this encounter Care Teams Talent Sourcer Relationship Specialty Start Date End Date Christiana Moore APRN [address] [place] [address] PCP - General Family Medicine 09/26/19 documented as of this encounter
--- OUTSIDE RECORDS SUMMARY | 2023-11-12 02:16 | XMS_ITS | Encounter Summary ---
Author Organization [facility] [place] [address] Care Team Providers Care Nutritional Health Coach Name Role Phone Christiana Moore RYAN Primary Care Provider [phone] Reason for Visit * Auth/Cert Specialty Diagnoses / Procedures Referred By Contac t Referred To Contact Diagnoses Chest wall abscess Open wound of right chest wall with complication wound vac filled with puss Procedures EMERGENCY OBSVO Referral ID Status Reason Start Date Expiration Date Visits Re quested Visits Authorized [id number] 1 1 Encounter Details Date Type Department Care Team (Late st Contact Info) Description 12/09/2019 11:43 AM EDT Anesthesia Event [place] [address] Jesus Lozada MD [facility] [place] [address] Emmie Barcenas Anesthesia Record Procedure Summary Procedure Name Responsible Anesthesiologist Anesthesia Start Time Anesthesia Stop Time INCISION & DRAINAGE COMPLEX POSTOPERATIVE WOUND INFECTION (WRVU 2.3) (Right) Jesus Lozada MD 12/09/19 1143 12/09/19 1324 Events Date Time Event Comment 12/09/2019 1032 1143 AN Verify 1143 Start 1143 An Start Data 1152 An Induction 1154 An Intubation 1157 Anesthesia Ready 1225 Procedure Start 1318 Extubation/LMA Out 1318 an stop data 1324 Recovery or ICU Handoff Romi ent care was transferred to the destination unit staff after review of the patient's medical history, current anesthetic/surgical status and plan, according to the Provider Handoff Checklist. 1324 Stop Meds Name Total fentaNYL 100 mcg IV Lidocaine 100 mg Propofol 170 mg PHENYLephrine 400 mcg ePHEDrine 10 mg Propofol INF 100.23 mg Succinylcholine 100 mg piperacillin-tazobactam (ZOS YN) 3.375 g vial attach to sodium chloride 0.9% 50 mL Mini-Bag Plus Cannot be calculated Heparin 5000 units SQ 5,000 Units Lactated Ringers 700 mL * Agents Name O2 Air N2O Sevoflurane (et) * Blood No blood administrations on file. Lines, Drains, and Airways Type Details Placement Removal Incision 11/10/19; 0017; ches t; 12/05/21 (LDA cleanup utility RA#[id number]); 1715 (LDA cleanup utility RA#[id number]) 11/10/19 0017 by Janessa Ramirez, RN 12/05/21 1715 by Claudio Gonzalez NPWT 11/12/19; 1100; back ; Incisional Wound Vac per thoracic team; LDA not present upon assessment; 03/18/23; 0837 11/12/19 1100 by Flakita Castro I, EVER 03/18/23 0837 by Yumkio Rodriguez, RN (RETIRED) Peripheral IV Line - Single Lumen 12/08/19; 1500; cephalic vein (lateral side of arm), left; site symptomatic, catheter/device intact, removed per policy/procedure, site care per policy/procedure; 12/09/19; 1700 12/08/19 1500 by Renato Sheth, NRP 12/09/19 1700 by Madeleine Brunner RN NPWT 12/09/19; chest; LDA not present upon assessment; 03/18/23; 0736 12/09/19 0000 by Janessa Campbell, EVER 03/18/23 0736 by Yumiko Rodriguez, RN ETT Mask Ventilation: Jose olea (1); ETT Type: Cuffed; ETT Size: 7.5 mm; Indirect: Video; Attempts: 1; Laryngoscopy Grade: 2; ETT Placement Verified By: Auscultation, Capnometry, Visual; Secured at Teeth: 23 cm; Removal Date: 12/09/19; Removal Time: 1318 12/09/19 1159 by Emmie Barcenas 12/09/19 1318 by Quentin Aranda CRNA documented in this encounter Social History Tobacco [...] OR Notes * Anesthesia Postprocedure Evaluation - Jesus Lozada MD - 12/09/2019 3:24 PM EDT Department of Anesthesiology Post-procedure Note Patient: Tree Lantigua Procedure Summary Date: 12/09/19 Room / Location: [facility] OR [address] [place] [address] MAIN OR Anesthesia Start: 1143 Anesthesia Stop: 1324 Procedures: INCISION & DRAINAGE COMPLEX POSTOPERATIVE WOUND INFECTION (WRVU 2.3) (Right ) DEBRIDEMENT SKIN, SUBCU, MUSCLE, THORAX (WRVU 2.7) (Right Chest) Diagnosis: (chest wall abscess) Surgeon: Michael Li MD Responsible Provider: Jesus Lozada MD Anesthesia Type: general ASA Status: 2 All Anesthesia Providers: Anesthesiologist: Jesus Lozada MD CASHIER PAYMENTS RECEIVED: Quentin Aranda CRNA Student Nurse Bow Maker: Emmie Barcenas Vitals Value Taken Time BP 131/88 12/09/19 1415 Temp 36.4 ??C (97.5 ??F) 12/09/19 1415 Pulse 87 12/09/19 1419 Resp 18 12/09/19 1419 SpO2 95 % 12/09/19 1503 Pain Level 5 12/09/19 1403 Vitals shown include unvalidated device data. Patient Location: PACU/[facility] Level of Consciousness: Awake and Alert Pain Management: Satisfactory Analgesia PONV: None Cardiovascular Status: At Baseline and Hemodynamically Stable Respiratory Status: At Baseline and Room Air Postoperative Fluid Status: Intravascular EUvolemia Possible Anesthetic Complications: NONE apparent at time of evaluation Final Primary Anesthesia Type: General (The anesthetic type performed was the same as planned.) Comments: Jesus Lozada MD * Anesthesia Preprocedure Evaluation - Jesus Lozada MD - 12/09/2019 10:29 AM EDT Pre-Anesthesia Evaluation for: Tree Lantigua a 64 y.o. male. Procedure(s): INCISION & DRAINAGE HEMATOMA, SEROMA OR FLD. COLLECTION, CHEST (WRVU 1.58) Patient Active Problem List Diagnosis ??? Open wound of right chest wall with complication ??? Chest wall abscess ??? Mediastinal mass History reviewed. No pertinent past medical history. Past Surgical History: Procedure Laterality Date ??? PRO BRONCHOSCOPY, DIAGNOSTIC N/A 10/24/2019 BRONCHOSCOPY, DIAGNOSTIC (WRVU 2.78) performed by Quentin Carlin MD at [facility] OR ??? PRO DRAINAGE OF HEMATOMA/FLUID Right 11/09/2019 INCISION & DRAINAGE HEMATOMA, SEROMA OR FLD. COLLECTION, CHEST (WRVU 1.58) performed by Piyush Hobbs MD at [facility] MAIN OR ? ? PRO INJECTION ANES AGENT &/ STEROID INTERCOSTAL NERVE EA ADDL LEVEL Right 10/24/2019 NERVE BLOCK, INTERCOSTAL NERVE, MULTIPLE (WRVU 1.68) performed by Quentin Carlin MD at [facility] OR ??? PRO THORACOSCOPY WITH BIOPSY OF PLEURA Right 10/24/2019 THORACOSCOPY; WITH BIOPSY(IES) OF PLEURA (WRVU 4.58) performed by Quentin Carlin MD at [facility] OR ??? PRO THORACOTOMY WITH THERAPEUTIC WEDGE RESECTION EA ADDL Right 10/24/2019 @THORACOTOMY; W/THERAPEUTIC WEDGE RESECTION, EA ADD'L RESC, IPSILATERAL (WRVU 3) performed by Quentin Carlin MD at [facility] OR ??? PRO THORACOTOMY WITH THERAPEUTIC WEDGE RESECTION INITIAL Right 10/24/2019 @THORACOTOMY; W/ THERAPEUTIC WEDGE RESECTION , INITIAL (WRVU 15.75) performed by Quentin Carlin MD at [facility] OR ??? PRO THYMECTOMY, RADICAL MEDIAST DISSSEC Right 10/24/2019 @THYMECTOMY W/ RAD. MEDIASTINAL DISSECTION (WRVU 23.48) performed by uQentin Carlin MD at [facility] OR Social History Tobacco Use ??? Smoking status: Never Smoker ??? Smokeless tobacco: Never Used Substance Use Topics ??? Alcohol use: Yes Alcohol/week: 2.0 standard drinks Types: 1 Glasses of wine, 1 Cans of beer per week Social History Substance and Sexual Activity Drug Use Never Allergies Allergen Reactions ??? Wasp Venom Medications: MAR and/or home medications have been reviewed. Physical Exam: Patient Vitals for the past 24 hrs: Temp Heart Rate From SP02 Pulse Resp BP SpO2 O2 Device 12/08/19 1411 37.4 ??C (99.3 ??F) -- (!) 136 20 (!) 119/98 96 % RA 12/08/19 2250 36.7 ??C (98.1 ??F) 94 bpm -- 18 102/61 94 % RA 12/09/19 0408 36.8 ??C (98.2 ??F) 84 bpm -- 18 111/58 92 % RA Body mass index is 23.71 kg/m??. Height: 180.3 cm (5' 11) Weight: 77.1 kg (170 lb) Airway Assessment: Mallampati: II TM distance: >3 FB Neck ROM: full Previously Grade 4 with MAC4. 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 Tolerated GA in past. Proven airway. Lab Results Component Value Date Sodium 136 12/08/2019 Potassium 4.0 12/08/2019 Chloride 95 (L) 12/08/2019 CO2 27 12/08/2019 BUN 11 12/08/2019 Creatinine 0.83 12/08/2019 Glucose Lvl 115 12/08/2019 CBC Lab Results Component Value Date WBC 9.0 12/09/2019 Hemoglobin 10.2 (L) 12/09/2019 Hematocrit 34.5 (L) 12/09/2019 Platelets 256 12/09/2019 NPO. Plan GETA. Region - Other Informed Consent: Anesthetic plan and risks discussed with patient. Plan discussed with CASHIER PAYMENTS RECEIVED. PAT Clinic Note documented in this encounter Miscellaneous Notes * Addendum Note - Jesus Lozada MD - 12/09/2019 3:24 PM EDT Addendum created 12/09/19 1524 by Jesus Lozada MD Clinical Note Signed documented in this encounter Plan of Treatment Not on file documented as of this encounter Visit Diagnoses Not on filedocumented in this encounter Administered Medications Inactive Administered Medications - up to 3 most recent administrations Medication Order MAR Action Action Date Dose Rate Site ePHEDrine 5 mg/mL multi-dose injection PRN, Starting on Sun12/09/19 at 1222, Until Sun12/09/19 at 1319, Anesthesia Intra-op, Routine Given 12/09/2019 12:22 PM EDT 10 mg fentaNYL 50 mcg/mL multi-dose injection PRN, Starting on Sun12/09/19 at 1152, Until Sun12/09/19 at 1319, Anesthesia Intra-op, Routine Given 12/09/2019 12:10 PM EDT 50 mcg Given 12/09/2019 11:52 AM EDT 50 mcg heparin (porcine) multi-dose injection PRN, Starting on Sun12/09/19 at 1237, Until Sun12/09/19 at 1319, Anesthesia Intra-op, Routine Given 12/09/2019 12:37 PM EDT 5,000 Units lactated ringers infusion CONTINUOUS PRN, Starting on Sun12/09/19 at 1143, Until Sun12/09/19 at 1319, Anesthesia Intra-op New Bag 12/09/2019 11:43 AM EDT lidocaine (PF) (XYLOCAINE) 100 mg/5 mL (2 %) injection PRN, Starting on Sun12/09/19 at 1152, Until Sun12/09/19 at 1319, Anesthesia Intra-op, Routine Given 12/09/2019 11:52 AM EDT 100 mg PHENYLephrine in NS (PF) (NAVARRO-SYNEPHRINE) 0.8 mg/10 mL (80 mcg/mL) multi-dose injection Syrg PRN, Starting on Sun12/09/19 at 1212, Until Sun12/09/19 at 1319, Anesthesia Intra-op, Routine Given 12/09/2019 12:50 PM EDT 80 mcg Given 12/09/2019 12:16 PM EDT 160 mcg Given 12/09/2019 12:12 PM EDT 160 mcg propofol (DIPRIVAN) 10 mg/mL bolus injection (Anesthesia) PRN, Starting on Sun12/09/19 at 1152, Until Sun12/09/19 at 1319, Anesthesia Intra-op Given 12/09/2019 11:52 AM EDT 170 mg propofol (DIPRIVAN) infusion CONTINUOUS PRN, Starting on Sun12/09/19 at 1159, Until Sun12/09/19 at 1319, Anesthesia Intra-op, Routine Rate/Dose Change 12/09/2019 12:09 PM EDT 40 mcg/kg/min 18.5 mL/hr New Bag 12/09/2019 11:59 AM EDT 50 mcg/kg/min 23.1 mL/h r succinylcholine chloride (Quelicin) injection PRN, Starting on Sun12/09/19 at 1152, Until Sun12/09/19 at 1319, Anesthesia Intra-op, Routine Given 12/09/2019 11:52 AM EDT 100 mg documented in this encounter Care Teams Nutritional Health Coach Relationship Specialty Start Date End Date Christiana Moore APRN [address] [place] [address] PCP - General Family Medicine 09/26/19 documented as of this encounter
--- OUTSIDE RECORDS SUMMARY | 2023-11-12 02:16 | XMS_ITS | Encounter Summary ---
Author Organization [facility] Address [facility] [place] [address] Care Team Providers Care Monorail Helper Name Role Phone Christiana Moore RYAN Primary Care Provider [phone] Reason for Visit * Reason Comments Wound Check * Auth/Cert Specialty Diagnoses / Procedures Referred By Contac t Referred To Contact Diagnoses Chest wall abscess Cellulitis of back except buttock Procedures ER IPI Admit Referral ID Status Reason Start Date Expiration Date Visits Re quested Visits Authorized [id number] 1 1 Encounter Details Date Type Department Care Team (Latest Contact Info) Description 11/09/2019 10:25 AM EDT - 11/14/2019 3:13 PM EDT Hospital Encounter [address] [place] [address] Armen Mckeon MD [facility] [place] [address] Robert Brambila MD [facility] [place] [address] Piyush Rojo MD [facility] [place] [address] Cellulitis of back except buttock; Chest wall abscess Discharge Disposition: Home with [...] Sign Reading Time Taken Comments Blood Pressure 118/82 11/14/2019 12:02 PM EDT Pulse 87 11/13/2019 3:57 PM EDT Temperature 36.4 ??C (97.6 ??F) 11/14/2019 12:02 PM E DT Respiratory Rate 17 11/14/2019 12:02 PM EDT Oxygen Saturation 97% 11/14/2019 12:02 PM EDT Inhaled Oxygen Concentration - - Weight 77.1 kg (170 lb) 11/09/2019 10:31 AM EDT Height - - Body Mass Index 23.06 10/24/2019 11:35 AM EDT documented in this encounter Discharge Summaries * Bella Arteaga APRN - 11/14/2019 10:54 AM EDT Images from the original note were not included. Department of Thoracic Surgery - Discharge Summary Patient Name: Tree Lantigua Patient Age: 64 y.o. Birthdate: 1955 Admit date: 11/09/2019 Discharge date: 11/14/2019 Attending Physician: Piyush Rojo MD Discharge Diagnoses (Hospital Problems) and Secondary Diagnoses (Chronic Problems): Active Hospital Problems Diagnosis ??? Chest wall abscess Resolved Hospital Problems No resolved problems to display. Active Non-Hospital Problems Diagnosis ??? Mediastinal mass Operations/Major Procedures: Operations: Case Date: 11/09/2019 - 11/10/2019 Surgeon: Surgeon(s) and Role: * Piyush Rojo MD - Primary * Darren Bennett MD - Resident Procedure: Procedure(s): INCISION & DRAINAGE HEMATOMA, SEROMA OR FLD. COLLECTION, CHEST (WRVU 1.58) Other Major Procedures: None History of Presentation: Tree Lantigua??is a 64 y.o.??male??with a history of thymoma??s/p right posterolateral thoracotomy(10/24/19, [place]) with resection of the anterior mediastinal mass, wedge resection of the right lung X5 who presents with??increasing pain, redness, swelling, and pus at the incision site. Patient has a CT consistent with??an abscess at incision,??pleural effusion,??and a leukocytosis.?? Hospital Course: Tree Lantigua was admitted to [facility] on 11/09/2019 via the Same Day Program. He was brought to the operating room on 11/09/2019 - 11/10/[address] Piyush Rojo performed surgery as described above. He tolerated the procedure well and was brought to the Post Anesthesia Care Unit for recovery. After a brief period of time he was transferred to the floor for continued rehabilitation. His wound vac was changed on POD 2 with irrigation and debridement. His wound vac was changed again on POD 4 noting clean wound with pink granulation. By postoperative day # 4 he had met all criteria for discharge to home. Pain was controlled on oral medications. He had walked 5 minutes. He was tolerating a regular diet and had had a bowel movement. Vital signs: Vital Signs Temp: 36.7 ??C (98.1 ??F) Temp src: Oral Heart Rate from SpO2: 91 bpm Heart Rate: 87 Heart Rate Source: Monitor Resp: 17 BP: 125/87 MAP (NBP): 100 mmHg BP Method: Automatic BP Location: Right arm Patient Position: Sitting SpO2: 99 % O2 Flow Rate (L/min): 6 L/min O2 Device: None (Room air) Admission Wt: 77.11 kg Last Wt: Wt Readings from Last 3 Encounters: 11/09/19 77.1 kg (170 lb) 10/26/19 77.1 kg (170 lb) 09/30/19 79.1 kg (174 lb 6.4 oz) Pertinent physical exam findings prior to discharge: Gen: NAD, pleasant, sitting in bed HEENT: normocephalic, atraumatic, EOMI, sclerae anicteric Neck: supple, trachea midline Card: RRR, no M/R/G appreciated Pulm: CTAB, no wheeze/ronchi/rales appreciated, non-labored breathing on RA, Right chest wall woundvac in place, holding suction Abd: soft, NT, BS+ Ext: warm, dry, no edema Neuro: A&Ox3, CN II-XII grossly intact, nonfocal, conversant Important Lab Data: Lab Results Component Value Date WBC 10.3 (H) 11/12/2019 HGB 12.3 (L) 11/12/2019 HCT 40.8 11/12/2019 MCV 65.1 (L) 11/12/2019 Lab Results Component Value Date NA 138 11/12/2019 K 3.9 11/12/2019 CL 100 11/12/2019 CO2 26 11/12/2019 Lab Results Component Value Date CREATININE 0.81 11/12/2019 Lab Results Component Value Date BUN 15 11/12/2019 No results found for: PREALBUMIN No results for input(s): PT, PTT, INR in the last 168 hours. Studies: CXR 11/12/2019 (Post Right chad drain removal) There is a small right-sided hydropneumothorax. The amount of air present has diminished since the previous examination. ?? CXR 11/10/2019 1. ??Small right anterior basilar pneumothorax. 2. ??Stable left basilar linear opacities consistent with atelectasis or parenchymal scarring. CT Chest (11/09/19): 1. Rim-enhancing fluid collection along the right lateral chest wall consistent with abscess. 2. Small right pleural effusion with adjacent compressive atelectasis. 3. Postsurgical changes as described above. CXR 11/09/19: Expected postoperative findings on the right. No acute intrathoracic pathology identified. Incompletely visualized right chest wall soft issue swelling. Pending Studies and Lab Data: No current labs Discharge Conditions/Prognosis: Stable Discharge to: Home with VNA Discharge Medications: Your Medications New Medications Dose Details docusate sodium 100 mg Cap Commonly known as: Colace Take 1 capsule by mouth 2 times daily for 10 days. 100 mg Quantity: 20 capsule Refills: 0 ibuprofen 200 mg Tab Commonly known as: Advil;Motrin Take 3 tablets by mouth every 6 hours. 600 mg Refills: 0 sulfamethoxazole-trimethoprim DS 800-160 mg Tab Commonly known as: Bactrim DS Take 1 tablet by mouth 2 times daily for 12 days. 1 tablet Quantity: 24 tablet Refills: 0 Continued medications with new dosing Dose Details oxyCODONE 5 mg Tab Commonly known as: Roxicodone Take 1 tablet by mouth every 6 hours as needed for Pain (for pain not controlled by Tylenol and Motrin). What changed: ?? when to take this ?? reasons to take this 5 mg Quantity: 10 tablet Refills: 0 Continued medications, unchanged Dose Details acetaminophen 500 mg Tab Commonly known as: Tylenol Take 2 tablets by mouth every 6 hours. 1,000 mg Quantity: 30 tablet Refills: 0 senna 8.6 mg Tab Commonly known as: Senokot Take 2 tablets by mouth every evening. 2 tablet Quantity: 60 tablet Refills: 0 Updated Allergies/ADRs: Allergies Allergen Reactions ??? Wasp Venom Instructions Given to Patient at Discharge: Patient Instructions Call if you have a fever of greater than 101 degrees, shaking chills, develop redness or drainage from your incision site(s), or if you have questions. During normal business hours, Sunday- Sunday 8:00 a.m.-5:00 p.m., please call to speak to a nurse in the Thoracic Clinic at [phone]. After hours or on weekends or holidays please call: [phone] and ask to speak to the Thoracic Surgeon on c all. Exercise & Activity Level: As you recover from surgery exercise at least 30 minutes a day. Thiscan be broken up into several times a day to achieve this goal at first, but you will be able to work up to doing all 30 minutes at once. Walking, treadmill, stationary bike, elliptical machine or there stationary exercise equipment is appropriate. Take your incentive spirometer home with you. You should use this every hour while awake, 10 times each. This helps you to exercise your respiratory muscles and to breathe deeply. Taking purposeful deep breaths can be just as effective. Do not lift more than 10 pounds for 6-8 weeks (nothing heavier than a gallon of milk). Don???t exhaust yourself. Rest between activities as you recover from your procedure. Diet: You should follow a regular, healthy diet. Driving: No driving for 1 week or while taking narcotic pain medication. Shower/Bath: You may shower daily. Keep the wound vac site covered. The VNA can assist you. No bathing or swimming until your follow-up appointment. Incision care: Wash your incision(s) daily with soap and rinse well, pat dry. Assess for any signs of infection such as increased redness, pain, warmth or drainage. You had a chest tube in place and there are sutures in place at the site. Please apply bacitracin and a Mepilex dressing or large bandaid at the site twice daily. We will plan to remove your sutures in 2 weeks at your follow up appointment. Medications: You are being discharged with an oral antibiotic, Bactrim. Please take this medicationtwice daily with food until your follow up appointment. Pain: Pain after surgery is normal. The [...] a heating pad set on low or medium, over your incision to help relax the muscles in the area and decrease discomfort. Please take your medication as prescribed. If you are not having good pain control, please call and speak to the nurse in the Thoracic Clinic or the Thoracic Surgeon command and control systems integrator after hours. We are unable to refill narcotics after 5 pm or on weekends or holidays. If you need more pain medication please call us before you run out of pills. Please allow 3 days for us to mail a refill for pain medication to you. Narcotic medication is intended for your use only. Do not share with others. If you are given a prescription for narcotics please keep these in a safe place and dispose of properly when you no longerneed these pills. Opioid PDMP 11/09/2019 10/06/2019 [place] PDMP Query Date 11/14/2019 10/26/2019 [place] PDMP Query Date 11/14/2019 10/26/2019 [place] PDMP Query Date 11/14/2019 10/26/2019 Tree Shun Faustincornelio is being prescribed a prescription opioid for the treatment of acute post-operative pain related to surgery. Tree Lantigua has been advised to take the smallest dose possible to control their pain and as their pain improves to take smaller doses and increase the time between doses. In addition to this medication, non-opioid medications have been prescribed for adjunct treatment of their pain. Non-pharmacological treatment such as ice, elevation and activity modification have been recommended as appropriate. The Acute Opioid Therapy Informed Consent form has been completed and sent to medical records for scanning to chart. Please take your medication exactly as prescribed. Read all instructions that come with your medication. ?? Using narcotic pain medication (such as oxycodone, hydromorphone (Dilaudid), morphine, fentanyl,or tramadol) may cause addiction. While addiction is more common in people with a personal or family history of addiction, it can occur in anyone. ?? Taking more than the prescribed amount of medication or using with alcohol or other drugs can cause you to stop breathing resulting in coma, brain damage, or . ?? Opioids (oxycodone, hydromorphone/Dilaudid, morphine, fentanyl, tramadol) can slow reaction time, cause drowsiness, or cloud judgement. It is unsafe for you to drive or operate heavy machinery while taking this medication. ?? Opioids (oxycodone, hydromorphone/Dilaudid, morphine, fentanyl, tramadol) are at risk of being diverted by anyone with access to your home. Opioids should be stored in a safe and secure place, such as a locked cabinet or [place]. ?? Unused opioids (oxycodone, hydromorphone/Dilaudid, morphine, fentanyl, tramadol) should be disposed of according to the label or patient information. If there are no specific instructions, medications may be returned to a take- back location or mixed with a small amount of water and an undesirable waste substance such as coffee grounds or cat litter. Sleep: Try to establish normal sleep patterns. Long naps during the day may make it hard for you tosleep at night. Use the pain medication at [...] have a bowel movement formore than 2 days, please call the office. Follow up appointments: You will have a follow up appointment in the Thoracic Surgery clinic in 2 weeks for a wound vac change. A letter will be mailed to you confirming your appointment information. You are being discharged with VNA to assist you with wound vac changes. No future appointments. General Instructions None Opioid PDMP 11/09/2019 10/06/2019 [place] PDMP Query Date 11/14/2019 10/26/2019 [place] PDMP Query Date 11/14/2019 10/26/2019 [place] Query Date 11/14/2019 10/26/2019 Tree Lantigua is being prescribed a prescription opioid for the treatment of acute post-operative pain related to surgery. Tree Lantigua has been advised to take the smallest dose possible to control their pain and as their pain improves to take smaller doses and increase the time between doses. In addition to this medication, non-opioid medications have been prescribed for adjunct treatment of their pain. Non-pharmacological treatment such as ice, elevation and activity modification have been recommended as appropriate. The Acute Opioid Therapy Informed Consent form has been completed and sent to medical records for scanning to chart. Future Appointments and Orders Future Appointments and Orders Future Appointments Provider Department Dept Phone 11/25/2019 10:30 AM Bella Arteaga APRN Thoracic Surgery at [facility] Arrive at: Manager Of Creative Services Area [phone] Future Orders Complete By Expires Referral to Home Health - at DISCHARGE [UGE0308 CPT(R)] As directed Process Instructions: Scheduling Instructions: Comments: DOCUMENTATION FOR VNA SERVICES (INCLUDING THOSE PATIENTS WITH MEDICARE COVERAGE REQUIRING HOME VNA SERVICES AND/OR HOSPICE SERVICES) PATIENT'S LOCATION: Tree Lantigua [address] [place] [id number] (home) Cell: Telephone Information: Dip Unit Operator's Name: Self In discussion with the attending physician, it is certified that this patient is under their care and that they, or a Nurse Practitioner,Clinical Nurse specialist or Physician Liquefaction Plant Operator who is working directly with them, had a face to face encounter that meets the physician face to face encounter requirements with this patient on 11/14/2019. The encounter with the patient was in whole, or in part, for the following medical condition, whichis the primary reason for home health care services: surgical site infection In discussion with the provider, it is certified that, based on their findings, the following services are medically necessary for home health services. To provide the following care/treatments with the clinical findings supporting the need for services as follows: HOME CARE ORDERS: RN ORDERS:Assess wound or incision, vital signs, cardiopulmonary status, nutrition, hydration, elimination, meds effectiveness and management; reinforce education re health issues M, W , F wound vac changes VAC Therapy (Negative Pressure Wound Therapy) is to be used as follows: 1. Apply dressing to wounds located: Left thoracotomy incision 2. Use 2 foam (black) pieces - wound is 12 cm x 3 cm x 2 cm, there is an aspect of tunneling laterally and inferiorly which willneed to be packed with the first black sponge and then the second sponge will be placed on top to fill the rest of the wound - Please decrease the size of the sponge that is placed into the tunneled area by 0.5-1 cm with every other wound vac change (ex. If changed on Sunday decrease size of sponge on Sunday change, followed by the Sunday change) to facilitate closure of that tunneled area 3. Pressure setting deb be @ 125 mm/Hg on continuous 4. Dressing shall be changed on Sunday, Sunday, Sunday 5. Any other wound material used on wound bed as part of VAC therapy? No 6. Irrigate wound between dressing changes? No 7. Can pt take a shower? Yes 8. If known, what is the expected length of treatment? Unknown 9. If appropriate client/significant other may be instructed to change canister, patch leaks, remove dressing, change VAC dressing. HOME HEALTH CARE AGENCY: [facility] PHONE: [phone] FAX: [phone] Start of care: 24 to 48 hours after discharge FOR MEDICARE ONLY: In discussion with the attending physician, it is certified that the clinical findings support thatthis patient is homebound because absences from home require considerable and taxing effort due to:Medically contraindicated due to infected , draining or complicated wound Please note that any additional orders needs or changes will need to be obtained from this patient's PCP: Christiana Moore APRN [address] / [place] [address] All [facility] agencies which cover the area of patient's residence have been reviewed, either verbally carmel writing, and patient/family have chosen the home health care agency noted Questions: Agency name and contact information: [facility] Patient location post discharge: Home What services are requested: Registered Nurse Start date: Responsible MD post discharge contact info: PCP Provider Contact Information: Primary Care Provider: Christiana Moore APRN [phone] Discharge References/Attachments: Discharge References/Attachments None For questions regarding this document or issues relating to this hospitalization on the Thoracic Surgery Service, please contact Dr. Alvarez's office at . Signed: Bella Arteaga APRN 11/14/2019 Thoracic Surgery [facility] CC: PCP: Christiana Moore APRN Referring: Self Mail documented in this encounter Discharge Instructions * Patient Instructions* Bella Arteaga APRN - 11/14/2019 7:35 AM EDT Images from the original note were not included. Call if you have a fever of greater than 101 degrees, shaking chills, develop redness or drainage from your incision site(s), or if you have questions. During normal business hours, Sunday- Sunday 8:00 a.m.-5:00 p.m., please call to speak to a nurse in the Thoracic Clinic at [phone]. After hours or on weekends or holidays please call: [phone] and ask to speak to the Thoracic Surgeon on c all. Exercise & Activity Level: As you recover from surgery exercise at least 30 minutes a day. Thiscan be broken up into several times a day to achieve this goal at first, but you will be able to work up to doing all 30 minutes at once. Walking, treadmill, stationary bike, elliptical machine or there stationary exercise equipment is appropriate. Take your incentive spirometer home with you. You should use this every hour while awake, 10 times each. This helps you to exercise your respiratory muscles and to breathe deeply. Taking purposeful deep breaths can be just as effective. Do not lift more than 10 pounds for 6-8 weeks (nothing heavier than a gallon of milk). Don???t exhaust yourself. Rest between activities as you recover from your procedure. Diet: You should follow a regular, healthy diet. Driving: No driving for 1 week or while taking narcotic pain medication. Shower/Bath: You may shower daily. Keep the wound vac site covered. The VNA can assist you. No bathing or swimming until your follow-up appointment. Incision care: Wash your incision(s) daily with soap and rinse well, pat dry. Assess for any signs of infection such as increased redness, pain, warmth or drainage. You had a chest tube in place and there are sutures in place at the site. Please apply bacitracin and a Mepilex dressing or large bandaid at the site twice daily. We will plan to remove your sutures in 2 weeks at your follow up appointment. Medications: You are being discharged with an oral antibiotic, Bactrim. Please take this medicationtwice daily with food until your follow up appointment. Pain: Pain after surgery is normal. The [...] a heating pad set on low or medium, over your incision to help relax the muscles in the area and decrease discomfort. Please take your medication as prescribed. If you are not having good pain control, please call and speak to the nurse in the Thoracic Clinic or the Thoracic Surgeon command and control systems integrator after hours. We are unable to refill narcotics after 5 pm or on weekends or holidays. If you need more pain medication please call us before you run out of pills. Please allow 3 days for us to mail a refill for pain medication to you. Narcotic medication is intended for your use only. Do not share with others. If you are given a prescription for narcotics please keep these in a safe place and dispose of properly when you no longerneed these pills. Opioid PDMP 11/09/2019 10/06/2019 [place] PDMP Query Date 11/14/2019 10/26/2019 [place] PD[place] Query Date 11/14/2019 10/26/2019 [place] Query Date 11/14/2019 10/26/2019 Tree Shun Faustincornelio is being prescribed a prescription opioid for the treatment of acute post-operative pain related to surgery. Tree hSun Faustincornelio has been advised to take the smallest dose possible to control their pain and as their pain improves to take smaller doses and increase the time between doses. In addition to this medication, non-opioid medications have been prescribed for adjunct treatment of their pain. Non-pharmacological treatment such as ice, elevation and activity modification have been recommended as appropriate. The Acute Opioid Therapy Informed Consent form has been completed and sent to medical records for scanning to chart. Please take your medication exactly as prescribed. Read all instructions that come with your medication. ?? Using narcotic pain medication (such as oxycodone, hydromorphone (Dilaudid), morphine, fentanyl,or tramadol) may cause addiction. While addiction is more common in people with a personal or family history of addiction, it can occur in anyone. ?? Taking more than the prescribed amount of medication or using with alcohol or other drugs can cause you to stop breathing resulting in coma, brain damage, or . ?? Opioids (oxycodone, hydromorphone/Dilaudid, morphine, fentanyl, tramadol) can slow reaction time, cause drowsiness, or cloud judgement. It is unsafe for you to drive or operate heavy machinery while taking this medication. ?? Opioids (oxycodone, hydromorphone/Dilaudid, morphine, fentanyl, tramadol) are at risk of being diverted by anyone with access to your home. Opioids should be stored in a safe and secure place, such as a locked cabinet or safe. ?? Unused opioids (oxycodone, hydromorphone/Dilaudid, morphine, fentanyl, tramadol) should be disposed of according to the label or patient information. If there are no specific instructions, medications may be returned to a take- back location or mixed with a small amount of water and an undesirable waste substance such as coffee grounds or cat litter. Sleep: Try to establish normal sleep patterns. Long naps during the day may make it hard for you tosleep at night. Use the pain medication at [...] have a bowel movement formore than 2 days, please call the office. Follow up appointments: You will have a follow up appointment in the Thoracic Surgery clinic in 2 weeks for a wound vac change. A letter will be mailed to you confirming your appointment information. You are being discharged with VNA to assist you with wound vac changes. No future appointments. documented in this encounter Medications at Time of Discharge Medication Sig Dispensed Refills Start Date End Date docusate sodium (Colace) 100 mg Capsule Take 1 capsule by mouth 2 times daily for 10 days. 20 capsule 11/14/2019 11/24/2019 sulfamethoxazole-trim ethoprim DS (Bactrim DS) 800-160 mg Tablet Take 1 tablet by mouth 2 times daily for 12 days. 24 tablet 11/14/2019 11/26/2019 ibuprofen (Advil;Motrin) 200 mg Tablet Take 3 tablets by mouth every 6 hours. 11/14/2019 03/20/2023 oxyCODONE (Roxicodone) 5 mg Tablet Take 1 tablet by mouth every 6 hours as needed for Pain (for pain not controlled by Tylenol and Motrin). 10 tablet 11/14/2019 11/25/2019 acetaminophen (Tylenol) 500 mg Tablet Take 2 tablets by mouth every 6 hours. 30 tablet 10/26/2019 03/20/2023 senna (Senokot) 8.6 mg Tablet Take 2 tablets by mouth every evening. 60 tablet 10/26/2019 03/20/2023 documented as of this encounter Progress Notes * Kassie Marie RN - 11/14/2019 3:13 PM EDT OFFICE OF CARE MANAGEMENT Calendar Control Clerk Blood Bank Final DISCHARGE NOTE: Discussed Plan for discharge with primary team and pt's family. Plan for Discharge:Home with VNA Homecare services provided by: [facility] For wound vac changes Homecare orders have been pended for MD to review and include in discharge summary. Pt is medically ready for discharge home with services outlined above. Due to current public health concerns, I discussed Medicare Discharge Rights with verbally delivered on 11/14/2019 to 12:30 pm 'Patient verbalizes understanding of right to appeal this discharge if feeling not medically ready. Offered a copy of this letter. to drive Calendar Control Clerk Blood Bank to follow until discharged if any new needs arise. Kassie Marie RNCM Phone [phone] Pager: # [phone] * Shannan Latif RN - 11/14/2019 2:11 PM EDT Patient verbalized understanding. Home health notified of patient discharge. Shannan Latif RN * Shannan Latif RN - 11/14/2019 7:36 AM EDT Patient's wound vac beeping for blockage. Assessed site and line doesn't appear to be blockage. Team paged to further investigate. Shannan Latif RN * Nilo Larry - 11/14/2019 7:14 AM EDT Thoracic Surgery Inpatient Progress Note Patient Name: Tree Lantigua ; Age: 1 1955; 64 y.o. Room/Bed: [address] [place] [address] Today's Date: 11/14/19 ID: Tree Lantigua is a 64 y.o. male w/ mediastinal mass and pulmonary nodules s/p R VATS for resection of anterior mediastinal mass and 5x wedge biopsies of the R lung on 10/24/2019 now 5 Days Post-Op s/p incision and drainage of wound abcess. 24 Hour Events/Subjective: - did well o/n - did not walk after our walk in the afternoon yesterday - pain well controlled w/ acetaminophen and ibuprofen - pt really wants to shower - planning to ask Dr. Alvarez about recommendations this morning Objective VS - (Temp: [36.4 ??C (97.6 ??F)-36.7 ??C (98.1 ??F)] ) Temp: 36.4 ??C (97.6 ??F), (Heart Rate: --)Heart Rate: 87, (BP: (118)/(82) ) BP: 118/82, (Resp: [17] ) Resp: 17, (SpO2: [97 %-99 %] ) SpO2: 97% Physical Exam Gen: NAD HEENT: NC/AT, EOMI CV : RRR Pulm: breathing comfortably, no respiratory distress, CTAB Abd: non-distended, soft, nontender : not examined Ext: SCDs in place, no edema Skin: warm, dry, incision on R posterolateral chest wound vac in place 24 Hour I/O's: I/O last 3 completed shifts: In: 894 [P.O.:840; IV Piggyback:54] Out: 2245 [Urine:2245] Admit Weight: Current Weight: Weight: 77.1 kg (170 lb) Labs: Recent Labs 11/12/19 0542 WBC 10.3* HGB 12.3* HCT 40.8 PLATELET 498* Recent Labs 11/12/19 0542 NA 138 K 3.9 CL 100 CO2 26 BUN 15 CREATININE 0.81 GLUCOSE 92 CALCIUM 9.1 MAGNESIUM 0.84 PHOS 3.9 Micro: 11/09/2019 - wound culture from OR - GPC Cefazolin Sensitive Ceftriaxone Sensitive Ciprofloxacin Sensitive Clindamycin Sensitive Erythromycin Sensitive Gentamicin Sensitive1 Levofloxacin Sensitive Oxacillin Sensitive2 Tetracycline Sensitive Trimethoprim/Sulfa Sensitive Vancomycin Sensitive New Imaging: CXR - 11/12/2019 IMPRESSION There is a small right-sided hydropneumothorax. The amount of air present has diminished since the previous examination. CXR - 11/10/2019 IMPRESSION 1. Small right anterior basilar pneumothorax. 2. Stable left basilar linear opacities consistent with atelectasis or parenchymal scarring. CT chest - 11/09/2019 IMPRESSION 1. Rim-enhancing fluid collection along the right lateral chest wall consistent with abscess. 2. Small right pleural effusion with adjacent compressive atelectasis. 3. Postsurgical changes as described above. A/P: Tree Lantigua is a 64 y.o. male w/ mediastinal mass and pulmonary nodules s/p R VATS for resection of anterior mediastinal mass and 5x wedge biopsies of the R lung on 10/24/2019 now 5 Days Post-Op s/p incision and drainage of wound abcess. NEURO: - acetaminophen 650mg q6h - ibuprofen 600mg q6h - oxycodone 5mg q4h prn CV: - hemodynamically stable PULM: - encourage OOB/IS GI/FEN: - regular diet - senna/docusate/miralax RENAL: - UOP adequate ENDO: - no acute issues HEME: - DVT ppx with heparin 5000U q8h ID: - piperacillin tazobactam 3.375 q8h - PO abx for home - TMP/SMX 14 day total abx course WOUND: - wound vac MWF - change today and then directions in the discharge summary PPX: - IS, SCDs LINES: - PIV DISPO: - floor status, dc today - History Nilo Larry 11/14/2019 Thoracic Surgery Team pager #[phone] * Todd Alvarez PA - 11/13/2019 9:49 AM EDT [facility] Department of Thoracic Surgery Inpatient Progress Note Patient Name: Tree Lantigua Patient : 1955 Patient Patient Location: [address] [place] [address] Attending Surgeon: ARMEN MCKEON REED MILLINGTON, TIMOTHY M ID: Tree Lantigua is a 64 y.o. male who is 4 Days Post-Op s/p incision and drainage of right chestabscess. 24 Hour Events / Subjective: - JASON, no complaints, Right Chad drain removed yesterday, wound VAC placed yesterday, micro demonstrated porter-sensitive MSSA, vanc d/c'd, had BM yesterday Vitals: Temp: [36.5 ??C (97.7 ??F)-37.2 ??C (99 ??F)] Heart Rate: [90] Resp: [18-22] BP: (113-129)/(69-85) SpO2: [92 %-97 %] Heart Rate from SpO2: [84 bpm-98 bpm] Wt & BMI By Encounter Date ED to Hosp-Admission (Current) from 11/09/2019 in [facility] Admission (Discharged) from 10/24/2019 in [facility] Weight 77.1 kg (170 lb) 1 11/09/2019 1031 77.1 kg (170 lb) 1 10/26/2019 0622 BMI -- 23.6 1 10/24/2019 1135 Physical Exam: Gen: NAD, pleasant, sitting up in chair HEENT: normocephalic, atraumatic, EOMI, sclerae anicteric Neck: supple, trachea midline Card: RRR, no M/R/G appreciated Pulm: CTAB, no wheeze/ronchi/rales appreciated, non-labored breathing on RA Abd: soft, NT, BS+ Ext: warm, dry, no edema Incisions: C/D/I Skin: incision on Right posterolateral chest with wound VAC to -125 mmHg, measured at 12 cm x 3 cm x 2 cm Neuro: A&Ox3, CN II-XII grossly intact, nonfocal, conversant I/O: I/O last 3 completed shifts: In: 2523.6 [P.O.:1420; I.V.:594.6; IV Piggyback:509] Out: 3900 [Urine:3850; Other:50] Diagnostics: CXR 11/11/2019 (Post Right chad drain removal) IMPRESSION There is a small right-sided hydropneumothorax. The amount of air present has diminished since the previous examination. CXR 11/10/2019 IMPRESSION 1. Small right anterior basilar pneumothorax. 2. Stable left basilar linear opacities consistent with atelectasis or parenchymal scarring. Micro: OR culture 11/10/2019 Abscess/Wound Aspirate Culture [[id number]] (Abnormal) Collected: 11/10/19 0025 Lab Status: Preliminary result Specimen: Abscess from Chest Updated: 11/12/19 1213 Abscess/Wound Aspirate Culture Moderate Staphylococcus aureusAbnormal Gram Stain --Abnormal Moderate Neutrophils seen Few Gram Positive Cocci seen Abnormal Susceptibility Staphylococcus aureus VITEK 2 METHOD Cefazolin Sensitive Ceftriaxone Sensitive Ciprofloxacin Sensitive Clindamycin Sensitive Erythromycin Sensitive Gentamicin Sensitive1 Levofloxacin Sensitive Oxacillin Sensitive2 Tetracycline Sensitive Trimethoprim/Sulfa Sensitive Vancomycin Sensitive 1 Gentamicin is not appropriate for [employer]-therapy. 2 Penicillin resistant, Nafcillin susceptible Staphylococci are resistant to B-lactamase labile Penicillins including Ampicillin and Piperacillin, but susceptible to B-lactamase pramod Penicillins (Nafcillin), B-lactamase inhibitor combinations, first and second generation Cephalosporins including Cefazolin, and to Cefepime and Meropenem. Assessment: Tree Lantigua is a 64 y.o. male who is 4 Days Post-Op s/p incision and drainage of right chest abscess. Recent hx of thymoma??s/p right posterolateral thoracotomy (10/24/19, [facility]) with resection ofthe anterior mediastinal mass. Plan: Neuro: Tylenol franklin, ibuprofen, oxycodone 5mg q4h Card: HDS, Monitor vital signs Pulm: pulmonary toilet - IS/cough/deep breathe FENGI: Regular diet, RBOs - senna, colace, miralax Renal/: monitor urine output Heme: lovenox 40 mg nightly ID: on zosyn while inpatient, will likely transition to PO Bactrim upon d/c Endo: LONI Other: Wound VAC in place to -125 mmHg, measured at 12 cm x 3 cm x 2 cm, will plan to perform firstdsg change tomorrow 11/14/2019 prior to d/c home with wound VAC in place PPx: lovenox 40 mg nightly, SCDs, IS/cough/deep breathe, OOB/ambulation Dispo: Floor status, Full code, Will need home wound vac at discharge. Tentative discharge Sunday11/14/2019 with wound vac changes M, W, F SOCRATES Rao 11/13/2019 Thoracic Surgery Service Pager [phone] * Nilo Larry - 11/13/2019 6:09 AM EDT Thoracic Surgery Inpatient Progress Note Patient Name: Tree Lantigua ; Age: 1 1955; 64 y.o. Room/Bed: 419/419-B Today's Date: 11/13/19 ID: Tree Lantigua is a 64 y.o. male w/ mediastinal mass and pulmonary nodules s/p R VATS for resection of anterior mediastinal mass and 5x wedge biopsies of the R lung on 10/24/2019 now 4 Days Post-Op s/p incision and drainage of wound abcess. 24 Hour Events/Subjective: - did well o/n - ketorolac 1x o/n for pain around incision - CXR yesterday - sensitivities on culture back - pansensitive - no SOB - OOB w/out issue - 2x BM yesterday Objective VS - (Temp: [36.5 ??C (97.7 ??F)-37.2 ??C (99 ??F)] ) Temp: 36.6 ??C (97.9 ??F), (Heart Rate: --) Heart Rate: 84, (BP: (113-129)/(69-85) ) BP: 129/85, (Resp: [16-22] ) Resp: 18, (SpO2: [92 %-97 %] ) SpO2: 97 % Physical Exam Gen: NAD HEENT: NC/AT, EOMI CV : RRR Pulm: breathing comfortably, no respiratory distress, CTAB Abd: non-distended, soft, nontender : not examined Ext: SCDs in place, no edema Skin: warm, dry, incision on R posterolateral chest wound vac in place 24 Hour I/O's: I/O last 3 completed shifts: In: 2516.6 [P.O.:1520; I.V.:541.6; IV Piggyback:455] Out: 3065 [Urine:2925; Other:140] Admit Weight: 77.11 kg Current Weight: Weight: 77.1 kg (170 lb) Labs: Recent Labs 11/12/19 0542 11/11/19 0409 11/10/19 0829 WBC 10.3* 13.8* 14.1* HGB 12.3* 10.7* 13.2* HCT 40.8 34.8* 42.8 PLATELET 498* 384* 485* Recent Labs 11/12/19 0542 11/11/19 0409 11/10/19 0829 NA 138 139 137 K 3.9 3.9 4.9 CL 100 102 100 CO2 26 25 21* BUN 15 22* 14 CREATININE 0.81 0.82 0.75* GLUCOSE 92 117 123 CALCIUM 9.1 8.6 9.4 MAGNESIUM 0.84 0.84 0.86 PHOS 3.9 3.4 4.4 Micro: 11/09/2019 - wound culture from OR - GPC Cefazolin Sensitive Ceftriaxone Sensitive Ciprofloxacin Sensitive Clindamycin Sensitive Erythromycin Sensitive Gentamicin Sensitive1 Levofloxacin Sensitive Oxacillin Sensitive2 Tetracycline Sensitive Trimethoprim/Sulfa Sensitive Vancomycin Sensitive New Imaging: CXR - 11/12/2019 IMPRESSION There is a small right-sided hydropneumothorax. The amount of air present has diminished since the previous examination. CXR - 11/10/2019 IMPRESSION 1. Small right anterior basilar pneumothorax. 2. Stable left basilar linear opacities consistent with atelectasis or parenchymal scarring. CT chest - 11/09/2019 IMPRESSION 1. Rim-enhancing fluid collection along the right lateral chest wall consistent with abscess. 2. Small right pleural effusion with adjacent compressive atelectasis. 3. Postsurgical changes as described above. A/P: Tree Lantigua is a 64 y.o. male w/ mediastinal mass and pulmonary nodules s/p R VATS for resection of anterior mediastinal mass and 5x wedge biopsies of the R lung on 10/24/2019 now 4 Days Post-Op s/p incision and drainage of wound abcess. NEURO: - acetaminophen 650mg q6h - ketorolac 15mg q6h - oxycodone 5mg q4h prn CV: - hemodynamically stable PULM: - encourage OOB/IS GI/FEN: - Regular diet - senna/docusate/miralax RENAL: - UOP adequate ENDO: - no acute issues HEME: - DVT ppx with heparin 5000U q8h ID: - piperacillin tazobactam 3.375 q8h - PO abx for home - TMP/SMX 14 day total abx course WOUND: - wound vac MWF PPX: - IS, SCDs LINES: - PIV DISPO: - floor status, dc likely Sunday - Attempt Cardiopulmonary Resuscitation - Inpatient Nilo Jarrett 11/13/2019 Thoracic Surgery Team pager #[phone] * Flakita Castro RN - 11/12/2019 7:00 PM EDT Adi had a good day. AAOx4. VSS. Afebrile. Pt denies nausea at this time, tolerating diet well. Painwell controlled with scheduled meds, tylenol and tordol. Pt voiding adequate amounts in bathroom. Pt passing gas; pt had2 BMs this shift. Patient got Ct d/c in Am. Wound vac placed to incision with -125 continuous suctioning. Pt ambulated in halls with staff. Plan to D/C Sunday post wound vac change. Will continue to monitor. * Kassie Marie RN - 11/12/2019 4:33 PM EDT Office of Care Management (OCM /Caremanger (CM)/ Discharge planning ) Service Thoracic Pager # [phone] e-DH reviewed. Report received from [facility] Patient plan of care discussed with Team and Nursing to assessment for continuing care and discharge needs. [facility]: 3 DECISION MAKER: Attempt Cardiopulmonary Resuscitation - Inpatient, <no information> Ongoing Issues: Needs wound vac and VNA plan is to change vac at bedside on Sunday and d/c after. [facility] Prov[facility] Services for : ( RN, ) Barriers to Discharge: Wound Vac approval All paperwork sent to [facility] rep. Still waiting for wound measurements / team notified Family Concerns: None at this time Anticipate Transport at time of discharge: Home with wound vac via family car Plan: CM will continue to follow for coordination of care and to facilitate discharge planning. Kassie Marie RN Pager # [phone] The patient has been provided a list of Home Health Agencies/DME vendors which serve their preferred geographic area. A letter describing our affiliations was reviewed with them and they were educated about their right to choose where referrals are placed.. Patient requests referral to [facility] PHONE: [phone] FAX: [phone] Expected date of discharge: 11/14/19 Referral routed to the Ict Project Manager for matching with agency/vendor and to provide any required information. * Benedicto Cameron PA - 11/12/2019 8:45 AM EDT [facility] Department of Thoracic Surgery Inpatient Progress Note Patient Name: Tree Lantigua Patient : 1955 Patient Patient Location: [facility]/419-B Attending Surgeon: ARMEN MCKEON, PIYUSH SHAH ID: Tree Lantigua is a 64 y.o. male who is 3 Days Post-Op s/p incision and drainage of right chestabscess. 24 Hour Events / Subjective: - VSS on RA, afebrile - wet to dry dressing change yesterday - Pain at site of right chad drain, pain improved with PO pain meds - Passing gas, No BM. - WBC downtrending at 10.3, from 13.8 yesterday. Vitals: Temp: [36.6 ??C (97.8 ??F)-36.8 ??C (98.2 ??F)] Heart Rate: -- Resp: [16] BP: (98-127)/(59-82) SpO2: [93 %-97 %] Heart Rate from SpO2: [72 bpm-97 bpm] Wt & BMI By Encounter Date ED to Hosp-Admission (Current) from 11/09/2019 in 4 [facility] Admission (Discharged) from 10/24/2019 in 3 [facility] Weight 77.1 kg (170 lb) 1 11/09/2019 1031 77.1 kg (170 lb) 1 10/26/2019 0622 BMI -- 23.6 1 10/24/2019 1135 Physical Exam: Gen: NAD, pleasant, sitting in bed HEENT: normocephalic, atraumatic, EOMI, sclerae anicteric Neck: supple, trachea midline Card: RRR, no M/R/G appreciated Pulm: CTAB, no wheeze/ronchi/rales appreciated, non-labored breathing on RA, Right chad drain to -20mmHg with no airleak appreciated, SS Abd: soft, NT, BS+ Ext: warm, dry, no edema Incisions: C/D/I Skin: incision on R posterolateral chest partially opened w/ kerlex packing wet to dry. Neuro: A&Ox3, CN II-XII grossly intact, nonfocal, conversant I/O: I/O last 3 completed shifts: In: 1539 [P.O.:700; IV Piggyback:839] Out: 3765 [Urine:3625; Other:140] Right Chad Drain: 140cc in 24 hrs / 50cc overnight, SS Diagnostics: CXR 11/11/2019 (Post Right chad drain removal) IMPRESSION There is a small right-sided hydropneumothorax. The amount of air present has diminished since the previous examination. CXR 11/10/2019 IMPRESSION 1. Small right anterior basilar pneumothorax. 2. Stable left basilar linear opacities consistent with atelectasis or parenchymal scarring. Micro: OR culture 11/10/2019 Preliminary Results: Moderate Neutrophils, few gram positive cocci, Staph aureus Sensitivity pending Assessment: Tree Lantigua is a 64 y.o. male who is 3 Days Post-Op s/p incision and drainage of right chest abscess. Recent hx of thymoma??s/p right posterolateral thoracotomy (10/24/19, [place]) with resection ofthe anterior mediastinal mass. Awaiting final OR sensitivities for discharge antibiotic recommendations. Plan: Neuro: Tylenol franklin, Toradol 15 q6h, oxycodone 5mg q4h Card: HDS, Monitor vital signs Pulm: Remove right chad drain. ambulation, ISC, cough, deep breathing FENGI: Regular diet, Colace, Senna, Miralax. Monitor for return of bowel function. +/- milk of mag if no BM by this afternoon. Renal/: monitor urine output Heme: SubQ heparin ID: Zosyn/Vanc Endo: - Other: Wet to dry dressing at right posterolateral chest incision, possible wound vac placement today. PPx: SubQ Heparin 5000 q8h, ambulation, ISC, cough, deep breathing Dispo: Floor status, Full code, Will need home wound vac at discharge. Tentative discharge Sunday with wound vac changes M, W, F. Plans staffed and discussed with Dr. Alvarez/SOCRATES Albarran 11/12/2019 Thoracic Surgery Service Pager [phone] * Nilo Larry - 11/12/2019 6:07 AM EDT Thoracic Surgery Inpatient Progress Note Patient Name: Tere Lantigua ; Age: 1 1955; 64 y.o. Room/Bed: 419/419-B Today's Date: 11/12/19 ID: Tree Lantigua is a 64 y.o. male w/ mediastinal mass and pulmonary nodules s/p R VATS for resection of anterior mediastinal mass and 5x wedge biopsies of the R lung on 10/24/2019 now 3 Days Post-Op s/p incision and drainage of wound abcess. 24 Hour Events/Subjective: - did well o/n - got colace and senna - has had flatus but no BM since he has been at the hospital - no abdominal pain - no SOB - miralax previously had helped him stool when constipated at the hospital Objective VS - (Temp: [36.5 ??C (97.7 ??F)-36.8 ??C (98.2 ??F)] ) Temp: 36.6 ??C (97.8 ??F), (Heart Rate: --)Heart Rate: 84, (BP: (103-119)/(59-77) ) BP: 103/59, (Resp: [16] ) Resp: 16, (SpO2: [93 %-97 %] ) SpO2: 95 % Physical Exam Gen: NAD HEENT: NC/AT, EOMI CV : RRR Pulm: breathing comfortably, no respiratory distress, CTAB Abd: non-distended, soft, nontender : not examined Ext: SCDs in place, no edema Skin: warm, dry, incision on R posterolateral chest partially opened w/ kerlex packing, not taken down yet today Drains: - chad drain to suction is within the pleural space per op note - 140mL 24hr serosang - no air leak 24 Hour I/O's: I/O last 3 completed shifts: In: 2033 [P.O.:1600; IV Piggyback:434] Out: 3045 [Urine:2825; Other:220] Admit Weight: 77.11 kg Current Weight: Weight: 77.1 kg (170 lb) Labs: Recent Labs 11/12/19 0542 11/11/19 0409 11/10/19 0829 11/09/19 1050 WBC 10.3* 13.8* 14.1* 14.6* HGB 12.3* 10.7* 13.2* 12.2* HCT 40.8 34.8* 42.8 39.7* PLATELET 498* 384* 485* 459* Recent Labs 11/11/19 0409 11/10/19 0829 11/09/19 1050 NA 139 137 138 K 3.9 4.9 4.4 CL 102 100 100 CO2 25 21* 26 BUN 22* 14 14 CREATININE 0.82 0.75* 0.80 GLUCOSE 117 123 95 CALCIUM 8.6 9.4 8.7 MAGNESIUM 0.84 0.86 -- PHOS 3.4 4.4 -- Micro: 11/09/2019 - wound culture from OR - GPC pending New Imaging: CXR - 11/10/2019 IMPRESSION 1. Small right anterior basilar pneumothorax. 2. Stable left basilar linear opacities consistent with atelectasis or parenchymal scarring. CT chest - 11/09/2019 IMPRESSION 1. Rim-enhancing fluid collection along the right lateral chest wall consistent with abscess. 2. Small right pleural effusion with adjacent compressive atelectasis. 3. Postsurgical changes as described above. A/P: Tree Lantigua is a 64 y.o. male w/ mediastinal mass and pulmonary nodules s/p R VATS for resection of anterior mediastinal mass and 5x wedge biopsies of the R lung on 10/24/2019 now 3 Days Post-Op s/p incision and drainage of wound abcess. NEURO: - acetaminophen 650mg q6h - ketorolac 15mg q6h - oxycodone 5mg q4h prn CV: - hemodynamically stable PULM: - encourage OOB/IS GI/FEN: - Regular diet - replete electrolytes PRN - senna/docusate - added miralax today RENAL: - UOP adequate ENDO: - no acute issues HEME: - DVT ppx with heparin 5000U q8h ID: - piperacillin tazobactam 3.375 q8h - vancomycin per pharmacy - pending cultures - likely will be done by 1pm - PO abx for home pending cultures WOUND: - daily wet to dry dressing changes, wound vac application today - drain pull today PPX: - IS, SCDs LINES: - PIV DISPO: - floor status, dc likely Sunday - Attempt Cardiopulmonary Resuscitation - Inpatient Nilo Larry 11/12/2019 Thoracic Surgery Team pager #[phone] * Kassie Marie RN - 11/11/2019 3:41 PM EDT Office of Care Management (OCM /Caremanger (CM)/ Discharge planning ) Service Thoracic Pager # [phone] e-DH reviewed. Report received from [facility] Patient plan of care discussed with Team and Nursing to assessment for continuing care and discharge needs. [facility]: 2 DECISION MAKER: Attempt Cardiopulmonary Resuscitation - Inpatient, <no information> Ongoing Issues: Wet to dry dressing , Chad drain removed , PO pain meds awaiting culture results Current Referral in place:None Barriers to Discharge: Watch for wound vac will need VNA if wound vac placed Family Concerns: None at this time / [facility] is VNA of Choice Anticipate Transport at time of discharge: family Plan: CM will continue to follow for coordination of care and to facilitate discharge planning. Kassie Marie RN Pager # [phone] * Benedicto Cameron PA - 11/11/2019 8:31 AM EDT [facility] Department of Thoracic Surgery Inpatient Progress Note Patient Name: Tree Lantigua Patient : 1955 Patient Patient Location: [address] [place] [address] Attending Surgeon: ARMEN MCKEON REED MILLINGTON, TIMOTHY M ID: Tree Lantigua is a 64 y.o. male who is 2 Days Post-Op s/p incision and drainage of right chestabscess. 24 Hour Events / Subjective: - VSS on RA, afebrile - wet to dry dressing change yesterday - Pain at site of right chad drain, pain improved with PO pain meds - Passing gas, No BM. - WBC downtrending at 13.8, from 14.1 yesterday. Vitals: Temp: [36.4 ??C (97.5 ??F)-37 ??C (98.6 ??F)] Heart Rate: [84-88] Resp: [16-19] BP: (96-127)/(61-81) SpO2: [93 %-96 %] Heart Rate from SpO2: [68 bpm-93 bpm] Wt & BMI By Encounter Date ED to Hosp-Admission (Current) from 11/09/2019 [facility] Admission (Discharged) from 10/24/2019 in 3 [facility] Weight 77.1 kg (170 lb) 1 11/09/2019 1031 77.1 kg (170 lb) 1 10/26/2019 0622 BMI -- 23.6 1 10/24/2019 1135 Physical Exam: Gen: NAD, pleasant, sitting in bed HEENT: normocephalic, atraumatic, EOMI, sclerae anicteric Neck: supple, trachea midline Card: RRR, no M/R/G appreciated Pulm: CTAB, no wheeze/ronchi/rales appreciated, non-labored breathing on RA, Right chad drain to -20mmHg with no airleak appreciated, SS Abd: soft, NT, BS+ Ext: warm, dry, no edema Incisions: C/D/I Skin: incision on R posterolateral chest partially opened w/ kerlex packing Neuro: A&Ox3, CN II-XII grossly intact, nonfocal, conversant I/O: I/O last 3 completed shifts: In: 2213.3 [P.O.:900; I.V.:610; IV Piggyback:703.3] Out: 3390 [Urine:3100; Other:280; Blood:10] Right Chad Drain: 130cc in 24 hrs / 0cc overnight Labs: Recent Results (from the past 72 hour(s)) Basic Metabolic Panel (non-fasting) Result Value Ref Range Glucose Lvl 95 65 - 199 mg/dL BUN 14 10 - 20 mg/dL Creatinine 0.80 0.80 - 1.50 mg/dL Sodium 138 135 - 145 mmol/L Potassium 4.4 3.5 - 5.0 mmol/L Chloride 100 98 - 107 mmol/L CO2 26 22 - 31 mmol/L Anion Gap 12 5 - 15 mmol/L Calcium 8.7 8.5 - 10.5 mg/dL eGFR 94 >=60 mL/min/1.73 m?? eGFR 109 >=60 mL/min/1.73 m?? Hemogram Result Value Ref Range WBC 14.6 (H) 4.0 - 9.5 x10(3)/mcL RBC 6.10 (H) 4.58 - 5.54 x10(6)/mcL Hemoglobin 12.2 (L) 13.7 - 16.5 gm/dL Hematocrit 39.7 (L) 40.5 - 48.5 % MCV 65.1 (L) 82.9 - 93.1 fL MCH 20.0 (L) 27.5 - 32.1 pg MCHC 30.7 (L) 32.0 - 35.7 gm/dL Platelets 459 (H) 145 - 357 x10(3)/mcL RDWSD 35.4 (L) 36.0 - 45.0 fL RDWCV 16.5 (H) 11.4 - 13.8 % MPV 9.1 7.6 - 12.9 fL nRBC % Auto 0.0 % nRBC Abs Auto 0.000 0.000 - 0.000 x10(3)/mcL Differential, Automated Result Value Ref Range Neutrophils % 76.8 % Neutr Abs (ANC) 11.22 (H) 1.70 - 6.10 x10(3)/mcL Lymphocytes % 10.9 % Lymphocytes Abs 1.6 0.9 - 3.2 x10(3)/mcL Monocytes % 9.0 % Monocyte Abs 1.3 (H) 0.3 - 0.9 x10(3)/mcL Eosinophils % 1.2 % Eosinophils Abs 0.2 0.0 - 0.4 x10(3)/mcL Basophils % 0.5 % Basophils Abs 0.1 0.0 - 0.1 x10(3)/mcL Immature Gran % 1.60 % Mayra Gran Abs 0.24 (H) 0.00 - 0.04 x10(3)/mcL Blue Tube HOLD Result Value Ref Range Blue Hold Sample in lab. COVID-19 PCR Specimen: Nasopharyngeal Swab Symptoms->Surveillance Result Value Ref Range Rapid SARS-CoV-2 RNA Not Detected Not Detected SARS-CoV-2 Source STAFF COUNSELOR Swab Abscess/Wound Aspirate Culture Specimen: Chest; Abscess RIGHT CHEST WALL ABSCESS. Result Value Ref Range Abscess/Wound Aspirate Culture Moderate Staphylococcus aureus (A) Gram Stain (A) Moderate Neutrophils seen Few Gram Positive Cocci seen Organism Staphylococcus aureus (A) Organism Gram Positive Cocci (A) Basic Metabolic Panel (non-fasting) Result Value Ref Range Glucose Lvl 123 65 - 199 mg/dL BUN 14 10 - 20 mg/dL Creatinine 0.75 (L) 0.80 - 1.50 mg/dL Sodium 137 135 - 145 mmol/L Potassium 4.9 3.5 - 5.0 mmol/L Chloride 100 98 - 107 mmol/L CO2 21 (L) 22 - 31 mmol/L Anion Gap 16 (H) 5 - 15 mmol/L Calcium 9.4 8.5 - 10.5 mg/dL eGFR 96 >=60 mL/min/1.73 m?? eGFR 112 >=60 mL/min/1.73 m?? Hemogram Result Value Ref Range WBC 14.1 (H) 4.0 - 9.5 x10(3)/mcL RBC 6.68 (H) 4.58 - 5.54 x10(6)/mcL Hemoglobin 13.2 (L) 13.7 - 16.5 gm/dL Hematocrit 42.8 40.5 - 48.5 % MCV 64.1 (L) 82.9 - 93.1 fL MCH 19.8 (L) 27.5 - 32.1 pg MCHC 30.8 (L) 32.0 - 35.7 gm/dL Platelets 485 (H) 145 - 357 x10(3)/mcL RDWSD 33.9 (L) 36.0 - 45.0 fL RDWCV 16.2 (H) 11.4 - 13.8 % MPV 9.6 7.6 - 12.9 fL nRBC % Auto 0.0 % nRBC Abs Auto 0.000 0.000 - 0.000 x10(3)/mcL Magnesium Result Value Ref Range Magnesium 0.86 0.69 - 1.07 mmol/L Phosphorus Result Value Ref Range Phosphorus 4.4 2.5 - 4.5 mg/dL Basic Metabolic Panel (non-fasting) Result Value Ref Range Glucose Lvl 117 65 - 199 mg/dL BUN 22 (H) 10 - 20 mg/dL Creatinine 0.82 0.80 - 1.50 mg/dL Sodium 139 135 - 145 mmol/L Potassium 3.9 3.5 - 5.0 mmol/L Chloride 102 98 - 107 mmol/L CO2 25 22 - 31 mmol/L Anion Gap 12 5 - 15 mmol/L Calcium 8.6 8.5 - 10.5 mg/dL eGFR 93 >=60 mL/min/1.73 m?? eGFR 108 >=60 mL/min/1.73 m?? Hemogram Result Value Ref Range WBC 13.8 (H) 4.0 - 9.5 x10(3)/mcL RBC 5.36 4.58 - 5.54 x10(6)/mcL Hemoglobin 10.7 (L) 13.7 - 16.5 gm/dL Hematocrit 34.8 (L) 40.5 - 48.5 % MCV 64.9 (L) 82.9 - 93.1 fL MCH 20.0 (L) 27.5 - 32.1 pg MCHC 30.7 (L) 32.0 - 35.7 gm/dL Platelets 384 (H) 145 - 357 x10(3)/mcL RDWSD 35.5 (L) 36.0 - 45.0 fL RDWCV 15.7 (H) 11.4 - 13.8 % MPV 8.9 7.6 - 12.9 fL nRBC % Auto 0.0 % nRBC Abs Auto 0.000 0.000 - 0.000 x10(3)/mcL Magnesium Result Value Ref Range Magnesium 0.84 0.69 - 1.07 mmol/L Phosphorus Result Value Ref Range Phosphorus 3.4 2.5 - 4.5 mg/dL Diagnostics: CXR 11/10/2019 IMPRESSION 1. Small right anterior basilar pneumothorax. 2. Stable left basilar linear opacities consistent with atelectasis or parenchymal scarring. Micro: OR culture 11/10/2019 Preliminary Results: Moderate Neutrophils, few gram positive cocci, Staph aureus Assessment: Tree Lantigua is a 64 y.o. male who is 2 Days Post-Op s/p incision and drainage of right chest abscess. Recent hx of thymoma??s/p right posterolateral thoracotomy (10/24/19, Tesfaye) with resection ofthe anterior mediastinal mass. Awaiting final OR cultures for discharge antibiotic recommendations. Plan: Neuro: Tylenol franklin, Toradol 15 q6h, oxycodone 5mg q4h Card: HDS, Monitor vital signs Pulm: Right chad drain -20 mmHg, ambulation may remove drain today vs tomorrow, ISC, cough, deep breathing FENGI: Regular diet, Colace, Senna, Monitor for return of bowel function Renal/: monitor urine output Heme: SubQ heparin ID: Davidn/Nasrin Endo: - Other: Wet to dry dressing at right posterolateral chest incision, may need wound vac placement prior to discharge. PPx: SubQ Heparin 5000 q8h, ambulation, ISC, cough, deep breathing Dispo: Floor status, Full code Plans staffed and discussed with SOCRATES Samuels 11/11/2019 Thoracic Surgery Service Pager [phone] * Nilo Larry - 11/11/2019 7:44 AM EDT Thoracic Surgery Inpatient Progress Note Patient Name: Tree BRINK; Age: 1 1955; 64 y.o. Room/Bed: [address] [place], [place] [address] Today's Date: 11/11/19 ID: Tree Lantigua is a 64 y.o. male w/ mediastinal mass and pulmonary nodules s/p R VATS for resection of anterior mediastinal mass and 5x wedge biopsies of the R lung on 10/24/2019 now 2 Days Post-Op s/p incision and drainage of wound abcess. 24 Hour Events/Subjective: - did well o/n - cultures still pending - a 10-15 sec episode of HR in the 150s per pt and felt pounding HR - no pain or SOB - 1x oxycodone for pain from the area of his packed incision Objective VS - (Temp: [36.4 ??C (97.5 ??F)-37 ??C (98.6 ??F)] ) Temp: 36.8 ??C (98.2 ??F), (Heart Rate: [84-88] ) Heart Rate: 84, (BP: (109-127)/(61-81) ) BP: 109/61, (Resp: [16-19] ) Resp: 16, (SpO2: [93 %-96%] ) SpO2: 96 % Physical Exam Gen: NAD HEENT: NC/AT, EOMI CV : RRR Pulm: breathing comfortably, no respiratory distress, CTAB Abd: non-distended, soft, nontender : not examined Ext: SCDs in place, no edema Skin: warm, dry, incision on R posterolateral chest partially opened w/ kerlex packing, not taken down yet today Drains: - chad drain to suction is within the pleural space per op note - 130mL 24hr serosang - no air leak 24 Hour I/O's: I/O last 3 completed shifts: In: 2213.3 [P.O.:900; I.V.:610; IV Piggyback:703.3] Out: 3390 [Urine:3100; Other:280; Blood:10] Admit Weight: 77.11 kg Current Weight: Weight: 77.1 kg (170 lb) Labs: Recent Labs 11/11/19 04011/10/19 0811/09/19 1050 WBC 13.8* 14.1* 14.6* HGB 10.7* 13.2* 12.2* HCT 34.8* 42.8 39.7* PLATELET 384* 485* 459* Recent Labs 11/11/19 04011/10/19 0811/09/19 1050 NA 139 137 138 K 3.9 4.9 4.4 CL 102 100 100 CO2 25 21* 26 BUN 22* 14 14 CREATININE 0.82 0.75* 0.80 GLUCOSE 117 123 95 CALCIUM 8.6 9.4 8.7 MAGNESIUM 0.84 0.86 -- PHOS 3.4 4.4 -- Micro: 11/09/2019 - wound culture from OR - GPC pending New Imaging: CXR - 11/10/2019 IMPRESSION 1. Small right anterior basilar pneumothorax. 2. Stable left basilar linear opacities consistent with atelectasis or parenchymal scarring. CT chest - 11/09/2019 IMPRESSION 1. Rim-enhancing fluid collection along the right lateral chest wall consistent with abscess. 2. Small right pleural effusion with adjacent compressive atelectasis. 3. Postsurgical changes as described above. A/P: Tree Lantigua is a 64 y.o. male w/ mediastinal mass and pulmonary nodules s/p R VATS for resection of anterior mediastinal mass and 5x wedge biopsies of the R lung on 10/24/2019 now 2 Days Post-Op s/p incision and drainage of wound abcess. NEURO: - acetaminophen 650mg q6h - ketorolac 15mg q6h - oxycodone 5mg q4h prn CV: - hemodynamically stable PULM: - encourage OOB/IS GI/FEN: - Regular diet - replete electrolytes PRN RENAL: - UOP adequate ENDO: - no acute issues HEME: - DVT ppx with heparin 5000U q8h ID: - piperacillin tazobactam 3.375 q8h - vancomycin per pharmacy - pending cultures - PO abx for home pending cultures WOUND: - daily wet to dry dressing changes, wound vac application today - drain out tomorrow likely PPX: - IS, SCDs LINES: - PIV DISPO: - floor status - Attempt Cardiopulmonary Resuscitation - Inpatient Nilo Larry 11/11/2019 Thoracic Surgery Team pager #[phone] * Benedicto Camerno PA - 11/10/2019 6:58 PM EDT [facility] Department of Thoracic Surgery Inpatient Progress Note Patient Name: Tree Lantigua Patient : 1955 Patient Patient Location: [address] [place] [address] Attending Surgeon: ARMEN MCKEON REED MILLINGTON, TIMOTHY M ID: Tree Lantigua is a 64 y.o. male who is 1 Day Post-Op s/p incision and drainage of right chest abscess. 24 Hour Events / Subjective: - OR yesterday for right chest abscess - VSS, afebrile - Pain well controlled with PO pain meds - Passing gas, No BM. - WBC stable at 14.1, from 14.6 yesterday. Vitals: Temp: [36.6 ??C (97.9 ??F)-37.2 ??C (99 ??F)] Heart Rate: [84-102] Resp: [15-19] BP: (96-139)/(62-84) SpO2: [92 %-96 %] Heart Rate from SpO2: [84 bpm-103 bpm] Wt & BMI By Encounter Date ED to Hosp-Admission (Current) from 11/09/2019 in 4 [facility] Admission (Discharged) from 10/24/2019 in 3 [facility] Weight 77.1 kg (170 lb) 1 11/09/2019 1031 77.1 kg (170 lb) 1 10/26/2019 0622 BMI -- 23.6 1 10/24/2019 1135 Physical Exam: Gen: NAD, pleasant, sitting in bed HEENT: normocephalic, atraumatic, EOMI, sclerae anicteric Neck: supple, trachea midline Card: RRR, no M/R/G appreciated Pulm: CTAB, no wheeze/ronchi/rales appreciated, non-labored breathing on RA, Rigth CT to -20mmHg with no airleak appreciated Abd: soft, NT, BS+ Ext: warm, dry, no edema Incisions: C/D/I Neuro: A&Ox3, CN II-XII grossly intact, nonfocal, conversant I/O: I/O last 3 completed shifts: In: 879.3 [I.V.:610; IV Piggyback:269.3] Out: 1360 [Urine:1200; Other:150; Blood:10] Right Chest tube: 150cc since surgery no air leak Labs: Recent Results (from the past 72 hour(s)) Basic Metabolic Panel (non-fasting) Result Value Ref Range Glucose Lvl 95 65 - 199 mg/dL BUN 14 10 - 20 mg/dL Creatinine 0.80 0.80 - 1.50 mg/dL Sodium 138 135 - 145 mmol/L Potassium 4.4 3.5 - 5.0 mmol/L Chloride 100 98 - 107 mmol/L CO2 26 22 - 31 mmol/L Anion Gap 12 5 - 15 mmol/L Calcium 8.7 8.5 - 10.5 mg/dL eGFR 94 >=60 mL/min/1.73 m?? eGFR 109 >=60 mL/min/1.73 m?? Hemogram Result Value Ref Range WBC 14.6 (H) 4.0 - 9.5 x10(3)/mcL RBC 6.10 (H) 4.58 - 5.54 x10(6)/mcL Hemoglobin 12.2 (L) 13.7 - 16.5 gm/dL Hematocrit 39.7 (L) 40.5 - 48.5 % MCV 65.1 (L) 82.9 - 93.1 fL MCH 20.0 (L) 27.5 - 32.1 pg MCHC 30.7 (L) 32.0 - 35.7 gm/dL Platelets 459 (H) 145 - 357 x10(3)/mcL RDWSD 35.4 (L) 36.0 - 45.0 fL RDWCV 16.5 (H) 11.4 - 13.8 % MPV 9.1 7.6 - 12.9 fL nRBC % Auto 0.0 % nRBC Abs Auto 0.000 0.000 - 0.000 x10(3)/mcL Differential, Automated Result Value Ref Range Neutrophils % 76.8 % Neutr Abs (ANC) 11.22 (H) 1.70 - 6.10 x10(3)/mcL Lymphocytes % 10.9 % Lymphocytes Abs 1.6 0.9 - 3.2 x10(3)/mcL Monocytes % 9.0 % Monocyte Abs 1.3 (H) 0.3 - 0.9 x10(3)/mcL Eosinophils % 1.2 % Eosinophils Abs 0.2 0.0 - 0.4 x10(3)/mcL Basophils % 0.5 % Basophils Abs 0.1 0.0 - 0.1 x10(3)/mcL Immature Gran % 1.60 % Mayra Gran Abs 0.24 (H) 0.00 - 0.04 x10(3)/mcL Blue Tube HOLD Result Value Ref Range Blue Hold Sample in lab. COVID-19 PCR Specimen: Nasopharyngeal Swab Symptoms->Surveillance Result Value Ref Range Rapid SARS-CoV-2 RNA Not Detected Not Detected SARS-CoV-2 Source STAFF COUNSELOR Swab Abscess/Wound Aspirate Culture Specimen: Chest; Abscess RIGHT CHEST WALL ABSCESS. Result Value Ref Range Gram Stain (A) Moderate Neutrophils seen Few Gram Positive Cocci seen Organism Gram Positive Cocci (A) Basic Metabolic Panel (non-fasting) Result Value Ref Range Glucose Lvl 123 65 - 199 mg/dL BUN 14 10 - 20 mg/dL Creatinine 0.75 (L) 0.80 - 1.50 mg/dL Sodium 137 135 - 145 mmol/L Potassium 4.9 3.5 - 5.0 mmol/L Chloride 100 98 - 107 mmol/L CO2 21 (L) 22 - 31 mmol/L Anion Gap 16 (H) 5 - 15 mmol/L Calcium 9.4 8.5 - 10.5 mg/dL eGFR 96 >=60 mL/min/1.73 m?? eGFR 112 >=60 mL/min/1.73 m?? Hemogram Result Value Ref Range WBC 14.1 (H) 4.0 - 9.5 x10(3)/mcL RBC 6.68 (H) 4.58 - 5.54 x10(6)/mcL Hemoglobin 13.2 (L) 13.7 - 16.5 gm/dL Hematocrit 42.8 40.5 - 48.5 % MCV 64.1 (L) 82.9 - 93.1 fL MCH 19.8 (L) 27.5 - 32.1 pg MCHC 30.8 (L) 32.0 - 35.7 gm/dL Platelets 485 (H) 145 - 357 x10(3)/mcL RDWSD 33.9 (L) 36.0 - 45.0 fL RDWCV 16.2 (H) 11.4 - 13.8 % MPV 9.6 7.6 - 12.9 fL nRBC % Auto 0.0 % nRBC Abs Auto 0.000 0.000 - 0.000 x10(3)/mcL Magnesium Result Value Ref Range Magnesium 0.86 0.69 - 1.07 mmol/L Phosphorus Result Value Ref Range Phosphorus 4.4 2.5 - 4.5 mg/dL Diagnostics: CXR 11/10/2019 IMPRESSION 1. Small right anterior basilar pneumothorax. 2. Stable left basilar linear opacities consistent with atelectasis or parenchymal scarring. Micro: OR culture 11/10/2019 - Moderate Neutrophils, few gram positive cocci Assessment: Tree Lantigua is a 64 y.o. male who is 1 Day Post-Op s/p incision and drainage of right chest abscess. Recent hx of thymoma??s/p right posterolateral thoracotomy (10/24/19, Tesfaye) with resection of the anterior mediastinal mass. Awaiting final OR cultures for discharge antibiotic recommendations. Plan: Neuro: Tylenol franklin, Toradol 15 q6h, oxycodone 5mg q4h Card: HDS, Monitor vital signs Pulm: Right chest tube -20 mmHg, ambulation, ISC, cough, deep breathing FENGI: Regular diet, Colace, Senna, Monitor for return of bowel function Renal/: monitor urine output Heme: SubQ heparin ID: Zosyn/Vanc Endo: - Other: - PPx: SubQ Heparin 5000 q8h, ambulation, ISC, cough, deep breathing Dispo: Floor status, Full code Plans staffed and discussed with Dr. Rojo. SOCRATES Castle 11/10/2019 Thoracic Surgery Service Pager [phone] * Nilo Larry - 11/10/2019 7:00 AM EDT Thoracic Surgery Inpatient Progress Note Patient Name: Tree Lantigua ; Age: 1 1955; 64 y.o. Room/Bed: 419/419-B Today's Date: 11/10/19 ID: Tree Lantigua is a 64 y.o. male w/ mediastinal mass and pulmonary nodules s/p R VATS for resection of anterior mediastinal mass and 5x wedge biopsies of the R lung on 10/24/2019 now 1 Day Post-Ops/p incision and drainage of wound abcess. 24 Hour Events/Subjective: - did well after getting out of the OR early in the morning - had 250mL murky drainage in the OR - wound dressing repacked today - wet to dry w/ kerlex - had air movement noise during packing - f/u CXR - no SOB o/n or this morning - no chest pain other than around the packed incision site Objective VS - (Temp: [36.6 ??C (97.9 ??F)-37.2 ??C (99 ??F)] ) Temp: 36.8 ??C (98.2 ??F), (Heart Rate: [84-102] ) Heart Rate: 84, (BP: (96-130)/(62-84) ) BP: 98/62, (Resp: [15-19] ) Resp: 18, (SpO2: [92 %-96 %] ) SpO2: 96 % Physical Exam Gen: NAD HEENT: NC/AT, EOMI CV : RRR Pulm: breathing comfortably, no respiratory distress, CTAB Abd: non-distended, soft, nontender : not examined Ext: SCDs in place, no edema Skin: warm, dry, incision on R posterolateral chest partially opened w/ kerlex packing, tissue in wound is nonpurlent and appears well perfused Drains: - chad drain to suction is within the pleural space per op note - 150mL 24hr serosang 24 Hour I/O's: I/O last 3 completed shifts: In: 1829.3 [P.O.:900; I.V.:610; IV Piggyback:319.3] Out: 2059 [Urine:1800; Other:250; Blood:10] Admit Weight: 77.11 kg Current Weight: Weight: 77.1 kg (170 lb) Labs: Recent Labs 11/10/19 0811/09/19 1050 WBC 14.1* 14.6* HGB 13.2* 12.2* HCT 42.8 39.7* PLATELET 485* 459* Recent Labs 11/10/19 0811/09/19 1050 NA 137 138 K 4.9 4.4 CL 100 100 CO2 21* 26 BUN 14 14 CREATININE 0.75* 0.80 GLUCOSE 123 95 CALCIUM 9.4 8.7 MAGNESIUM 0.86 -- PHOS 4.4 -- Micro: 11/09/2019 - wound culture from OR - GPC pending New Imaging: CXR - 11/10/2019 IMPRESSION 1. Small right anterior basilar pneumothorax. 2. Stable left basilar linear opacities consistent with atelectasis or parenchymal scarring. CT chest - 11/09/2019 IMPRESSION 1. Rim-enhancing fluid collection along the right lateral chest wall consistent with abscess. 2. Small right pleural effusion with adjacent compressive atelectasis. 3. Postsurgical changes as described above. A/P: Tree Lantigua is a 64 y.o. male w/ mediastinal mass and pulmonary nodules s/p R VATS for resection of anterior mediastinal mass and 5x wedge biopsies of the R lung on 10/24/2019 now 1 Day Post-Op s/p incision and drainage of wound abcess. NEURO: - acetaminophen 650mg q6h - ketorolac 15mg CV: - hemodynamically stable PULM: - encourage OOB/IS GI/FEN: - Regular diet - replete electrolytes PRN - heparin 5000 q8h RENAL: - UOP adequate ENDO: - no acute issues HEME: - DVT ppx with heparin 5000U q8h ID: - piperacillin tazobactam 3.375 q8h - vancomycin per pharmacy - pending cultures - PO abx for home pending cultures WOUND: - daily wet to dry dressing changes, wound vac application tomorrow - drain out tomorrow likely PPX: - IS, SCDs LINES: - PIV DISPO: - floor status - Attempt Cardiopulmonary Resuscitation - Inpatient Nilo Larry 11/10/2019 Thoracic Surgery Team pager #[phone] * Katya Ortiz MD - 11/10/2019 5:59 AM EDT Post-Operative Check Tree Lantigua is a 64 y.o. male s/p Procedure(s): INCISION & DRAINAGE HEMATOMA, SEROMA OR FLD. COLLECTION, CHEST (WRVU 1.58) S: No nausea/vomiting, chest pain, SOB, pain well controlled, offers no complaints. O: Temp: [36.6 ??C (97.9 ??F)-37.2 ??C (99 ??F)] Heart Rate: [95-102] Resp: [15-19] BP: (109-139)/(65-81) SpO2: [92 %-96 %] Heart Rate from SpO2: [95 bpm-103 bpm] No intake/output data recorded. I/O this shift: In: 673.3 [I.V.:610; IV Piggyback:63.3] Out: 1110 [Urine:950; Other:150; Blood:10] Recent Results (from the past 24 hour(s)) Basic Metabolic Panel (non-fasting) Result Value Ref Range Glucose Lvl 95 65 - 199 mg/dL BUN 14 10 - 20 mg/dL Creatinine 0.80 0.80 - 1.50 mg/dL Sodium 138 135 - 145 mmol/L Potassium 4.4 3.5 - 5.0 mmol/L Chloride 100 98 - 107 mmol/L CO2 26 22 - 31 mmol/L Anion Gap 12 5 - 15 mmol/L Calcium 8.7 8.5 - 10.5 mg/dL eGFR 94 >=60 mL/min/1.73 m?? eGFR 109 >=60 mL/min/1.73 m?? Hemogram Result Value Ref Range WBC 14.6 (H) 4.0 - 9.5 x10(3)/mcL RBC 6.10 (H) 4.58 - 5.54 x10(6)/mcL Hemoglobin 12.2 (L) 13.7 - 16.5 gm/dL Hematocrit 39.7 (L) 40.5 - 48.5 % MCV 65.1 (L) 82.9 - 93.1 fL MCH 20.0 (L) 27.5 - 32.1 pg MCHC 30.7 (L) 32.0 - 35.7 gm/dL Platelets 459 (H) 145 - 357 x10(3)/mcL RDWSD 35.4 (L) 36.0 - 45.0 fL RDWCV 16.5 (H) 11.4 - 13.8 % MPV 9.1 7.6 - 12.9 fL nRBC % Auto 0.0 % nRBC Abs Auto 0.000 0.000 - 0.000 x10(3)/mcL Differential, Automated Result Value Ref Range Neutrophils % 76.8 % Neutr Abs (ANC) 11.22 (H) 1.70 - 6.10 x10(3)/mcL Lymphocytes % 10.9 % Lymphocytes Abs 1.6 0.9 - 3.2 x10(3)/mcL Monocytes % 9.0 % Monocyte Abs 1.3 (H) 0.3 - 0.9 x10(3)/mcL Eosinophils % 1.2 % Eosinophils Abs 0.2 0.0 - 0.4 x10(3)/mcL Basophils % 0.5 % Basophils Abs 0.1 0.0 - 0.1 x10(3)/mcL Immature Gran % 1.60 % Mayra Gran Abs 0.24 (H) 0.00 - 0.04 x10(3)/mcL Blue Tube HOLD Result Value Ref Range Blue Hold Sample in lab. COVID-19 PCR Specimen: Nasopharyngeal Swab Symptoms->Surveillance Result Value Ref Range Rapid SARS-CoV-2 RNA Not Detected Not Detected SARS-CoV-2 Source STAFF COUNSELOR Swab Physical Exam Gen: A0x3, NAD, resting comfortably CVS: RRR, no murmurs/rubs/gallops Resp: CTAB, breathing comfortably on RA, dressing in place, c/d/i, has R [address] to continuoussuction -20, no airleak Abd: Soft, non-tender : No hylton Ext: WWP AP Tree Lantigua is a 64 y.o. male s/p incision and drainage, currently in stable condition and recovering well. Patient was examined overnight once at 2am and again at 6am. Stable, no acute complaints. - Regular diet - Pain well controlled (tylenol, toradol, oxycodone, dilaudid) - Zofran PRN for nausea - Hemodynamically stable, UOP adequate Katya Ortiz MD 11/10/2019 * Fatou Ignacio, RN - 11/10/2019 1:26 AM EDT 0115 Pt awake, conversing well. Andrea po sips water. Pt turned, large amount sero sang drainage through dressing and CT site. Dressing changed per MD request. 0140 Report to Aysha on 4w. Pt states he feels well and pain is Mild. Declined oxy at this time. documented in this encounter H&P Notes * Sabine Navarrete MD - 11/09/2019 1:35 PM EDT [facility] Department of Surgery Consult Note ? Consultation Requested by: Armen Mckeon MD ?? History of Present Illness: We are seeing Tree Lantigua today for evaluation and advice about incision drainage of abscess at incision site of previous right thoracotomy. ?? Tree Lantigua is a 64 y.o. male with a history of thymoma s/p right posterolateral thoracotomy (10/24/19, Tesfaye) with resection of the anterior mediastinal mass, wedge resection of the right lung X5who presents with increasing pain, redness, swelling, and pus at the incision site. Patient has a CT consistent with an abscess at incision, pleural effusion, and a leukocytosis. ?? Past Medical History: Tree Lantigua has no past medical history on file. ?? Past Surgical History Tree Lantigua has a past surgical history that includes Thymectomy, Radical Mediast Disssec (45934) (Right, 10/24/2019); Bronchoscopy, Diagnostic (82313) (N/A, 10/24/2019); Thoracotomy With Therapeutic Wedge Resection Initial (Right, 10/24/2019); Injection Anes Agent &/ Steroid Intercostal Nerve Ea Addl Level (41226) (Right, 10/24/2019); Thoracotomy With Therapeutic Wedge Resection Ea Addl (Right, 10/24/2019); and Thoracoscopy With Biopsy of Pleura (Right, 10/24/2019). Medications No current facility-administered medications on file prior to encounter. ?? Current Outpatient Medications on File Prior to Encounter Medication Sig Dispense Refill ??? acetaminophen (Tylenol) 500 mg Tablet Take 2 tablets by mouth every 6 hours. 30 tablet 0 ??? oxyCODONE (Roxicodone) 5 mg Tablet Take 1 tablet by mouth every 4 hours as needed for Pain. 15 tablet 0 ??? senna (Senokot) 8.6 mg Tablet Take 2 tablets by mouth every evening. 60 tablet 0 Allergies Allergies Allergen Reactions ??? Wasp Venom ?? Family History: The patient's family history is not on file. ?? Social History: Tree Lantigua reports that he has never smoked. He has never used smokeless tobacco. He reports current alcohol use of about 2.0 standard drinks of alcohol per week. He reports that he does not use drugs. ?? Review of Systems: As stated above, otherwise negative ?? Physical Exam: Temp: [36.8 ??C (98.2 ??F)] Heart Rate: [90-95] Resp: [16] BP: (112-125)/(77-84) SpO2: [98 %] Heart Rate from SpO2: -- ?? General: alert, no acute distress Head: Atraumatic, non cyanotic Cardiac: Regular rate Pulmonary: nl respiratory effort, no WRR, R palpable seroma at right chest Abdominal: soft, non tender, non distended Neuro: grossly intact, follows commands, AAO x3. Extremities: Warm and well-perfused Labs: Recent Labs 11/09/19 1050 10/25/19 0330 09/30/19 1603 WBC 14.6* 13.3* 10.8* HGB 12.2* 12.9* 13.4* HCT 39.7* 42.1 44.0 PLATELET 459* 325 321 Recent Labs 11/09/19 1050 10/25/19 0330 10/24/19 1830 NA 138 136 136 K 4.4 4.5 3.7 CL 100 101 102 CO2 26 24 22 BUN 14 12 12 CREATININE 0.80 0.71* 0.76* Recent Labs 09/30/19 1603 AST 23 ALT 11 ALKPHOS 87 BILITOT 0.3 Recent Labs 11/09/19 1050 CALCIUM 8.7 Imaging: Xr Chest Pa & Lateral (generic) FINDINGS: Postoperative findings on the right. Mild linear scars bilaterally. Blunting of the bilateral costophrenic angles due to pleural thickening versus trace pleural fluid. Normal size of the heart and normal width of the mediastinum. Degenerative changes of the spine. ?? Expected postoperative findings on the right. No acute intrathoracic pathology identified. Incompletely visualized right chest wall soft issue swelling. ?? CT Chest 1. ??Rim-enhancing fluid collection along the right lateral chest wall consistent with abscess. 2. ??Small right pleural effusion with adjacent compressive atelectasis. 3. ??Postsurgical changes as described above. ?? Impression: Tree Lantigua is a 64 y.o. male thymoma s/p right posterolateral thoracotomy (10/24/19,Tesfaye) with resection of the anterior mediastinal mass, wedge resection of the right lung X5 who presents with increasing pain, redness, swelling, and pus at the incision site. Attempted bedside incision and drainage with no success, therefore operative intervention. ?? Recommendation: Admit to thoracic surgery Antibiotics: vancomycin, zosyn Plan for OR for right incision and drainage and right chest tube Discussed with Dr. Rojo and communicated to the ED. Thank you for this consult. If you have any questions regarding this consult, please page [phone]. ?? Sabine Navarrete MD/S PGY2 [phone] 11/09/2019 4:00 PM Associated attestation - Piyush Rojo MD - 11/11/2019 3:24 PM EDT I saw and examined the patient in the emergency department and agree with the findings, assessment and plan. In brief, this 64-year-old man has erythema, swelling and drainage associated with a posterior lateral thoracotomy incision on October 23. Bedside drainage in the emergency department was attempted but adequate drainage could not be achieved and I recommended admission for operative drainage. PIYUSH ROJO MD documented in this encounter Procedure Notes * Bella Arteaga APRN - 11/14/2019 1:23 PM EDTProcedure(s): DRESSING CHANGE, WOUND VAC > 50SQ CM Pre-Procedure Diagnose(s): Chest wall abscess Post-Procedure Diagnose(s): Chest wall abscess Bedside Wound Vac placement ?? Wound vac was changed at bedside for right surgical thoracotomy site incision. Wound bed appeared clean with pink granulation tissue. Two black sponges were placed, one tunneled laterally and inferiorly approximately 3 cm and the second placed on top to fill the rest of the wound. Wound size 12cm x3 cm x 2 cm. Held suction. Wound vac to low continuous -125 mmHg suction. Bella Arteaga APRN 11/14/2019 Thoracic Surgery 5015 Associated attestation - Jose Alvarez MD - 11/17/2019 1:42 PM EDT I was the attending physician supervising the resident in the above care and present for the entireprocedure. JOSE ALVAREZ MD * Benedicto Cameron PA - 11/12/2019 11:56 AM EDTProcedure(s): WOUND VAC INSTILLATION Pre-Procedure Diagnose(s): Surgical wound infection Post-Procedure Diagnose(s): Surgical wound infection Bedside Wound Vac placement Wound vac was installed at bedside for right surgical thoracotomy site incision. Wound was cleaned and debrided prior to installation. One black sponge was placed with jordyn pad placed on top. Held suction. Wound vac to low continuous - 125 mmHg suction. Picture of wound in chart, please reference for size. Wound size 12cm x 3 cm x 2 cm Procedure performed at bedside by Benedicto Cameron PA-C. SOCRATES [place] 11/12/19 Thoracic Surgery 5015 Associated attestation - Piyush Rojo MD - 11/13/2019 11:29 AM EDT I evaluated Mr. Lantigua prior to the placement of his wound VAC, and was immediately available for assistance although not present at the bedside during placement of the device. PIYUSH ROJO MD documented in this encounter ED Notes * Inderjit Lamb RN - 11/09/2019 8:16 PM EDT Report given to Marilyn on . Pt ready for transpo. * Inderjit Lamb RN - 11/09/2019 10:47 AM EDT X-ray completed. Attending and resident to pt bedside. * Hilda Romo MD - 11/09/2019 10:39 AM EDT Images from the original note were not included. ED Resident Note Tree Lantigua is an 64 y.o. male who presents to the ED with: Chief Complaint Patient presents with ??? Wound Check I saw this patient on 11/09/2019. History is from patient . HPI Tree Lantigua is a 64 y.o. male with a history anterior mediastinal mass status-post right thoracotomy, mediastinal dissection with wedge resection, and thoracoscopy with biopsies of the pleura on 10/23. Patient reports he was discharged last Sunday. 2-3 prior to presenting to the ED, he noticed increasing pain at the incision site on the superior aspect of his back. Over the subsequent days he had increasing pain, tenderness, and erythema noted around this section of the incision. This morning he noticed purulent drainage through the back of his T shirt. He called thoracic surgery, who recommended he come in for assessment. He denies any fevers, chills, rigors, nausea, or vomiting. Review of Systems: 10-point ROS performed and negative excepting pertinent positives described in HPI. Physical Exam: Patient Vitals for the past 24 hrs: BP Temp Temp src Pulse Resp SpO2 Weight 11/09/19 1031 125/84 36.8 ??C (98.2 ??F) Oral 95 16 98 % 77.1 kg (170 lb) GEN: No acute distress. Breathing comfortably on RA. PULM: No resp distress. CTA b/l. CV: Normal rate. RRR. NMRG. No JVD. No HALLEY. ABD: Soft, nondistended, nttp. MSK: Wound dehiscence at the most superior aspect of the incision with mild erythema, tenderness, and purulent discharge with milking. No fluctuance, blistering, or crepitus noted. Mild tenderness atthe medial region of the incision site, no associated erythema or drainage. NEURO: AAOx3. PERRL. No gross CN deficits. Light touch intact face & body. Moves extremities equally. PSYCH: Normal mood and thought pattern. SKIN: No rashes. ED Course: - Patient seen under the supervision of the attending physician. - Medications, allergies, and past medical history reviewed. Recent Results (from the past 24 hour(s)) Basic Metabolic Panel (non-fasting) Result Value Ref Range Glucose Lvl 95 65 - 199 mg/dL BUN 14 10 - 20 mg/dL Creatinine 0.80 0.80 - 1.50 mg/dL Sodium 138 135 - 145 mmol/L Potassium 4.4 3.5 - 5.0 mmol/L Chloride 100 98 - 107 mmol/L CO2 26 22 - 31 mmol/L Anion Gap 12 5 - 15 mmol/L Calcium 8.7 8.5 - 10.5 mg/dL eGFR 94 >=60 mL/min/1.73 m?? eGFR 109 >=60 mL/min/1.73 m?? Hemogram Result Value Ref Range WBC 14.6 (H) 4.0 - 9.5 x10(3)/mcL RBC 6.10 (H) 4.58 - 5.54 x10(6)/mcL Hemoglobin 12.2 (L) 13.7 - 16.5 gm/dL Hematocrit 39.7 (L) 40.5 - 48.5 % MCV 65.1 (L) 82.9 - 93.1 fL MCH 20.0 (L) 27.5 - 32.1 pg MCHC 30.7 (L) 32.0 - 35.7 gm/dL Platelets 459 (H) 145 - 357 x10(3)/mcL RDWSD 35.4 (L) 36.0 - 45.0 fL RDWCV 16.5 (H) 11.4 - 13.8 % MPV 9.1 7.6 - 12.9 fL nRBC % Auto 0.0 % nRBC Abs Auto 0.000 0.000 - 0.000 x10(3)/mcL Differential, Automated Result Value Ref Range Neutrophils % 76.8 % Neutr Abs (ANC) 11.22 (H) 1.70 - 6.10 x10(3)/mcL Lymphocytes % 10.9 % Lymphocytes Abs 1.6 0.9 - 3.2 x10(3)/mcL Monocytes % 9.0 % Monocyte Abs 1.3 (H) 0.3 - 0.9 x10(3)/mcL Eosinophils % 1.2 % Eosinophils Abs 0.2 0.0 - 0.4 x10(3)/mcL Basophils % 0.5 % Basophils Abs 0.1 0.0 - 0.1 x10(3)/mcL Immature Gran % 1.60 % Mayra Gran Abs 0.24 (H) 0.00 - 0.04 x10(3)/mcL Blue Tube HOLD Result Value Ref Range Blue Hold Sample in lab. . Assessment and Plan: 64 y.o. male with a hx of thymoma s/p thoracotomy on 10/23 presenting for wound assessment. Assessment #Cellulitis #Post-surgical wound dehiscence Clear evidence of cellulitis with possible abscess in the setting of surrounding erythema associated with purulent drainage. Suspect MSSA vs MRSA. Labs notable for wbc of 14.6. XR did not demonstrateany acute intrathoracic pathology, the right chest wall was notable for some soft tissue swelling. CT Chest demonstrated rim-enhancing fluid collection along the right lateral chest wall consistent with abscess. #Microcytic anemia Baseline microcytic anemia, suspect iron deficiency anemia vs anemia of chronic disease. Less likely 2/2 to lead or hereditary blood disorder. He is currently asymptomatic. - CTM Plan - Vanc/ Zosyn - Oxycodone 10 mg - Admit to CT surg Patient was HDS with Thoracic Resident at bedside @ sign-out to Dr. Tj at 16:00. Hilda Romo MD Internal Medicine PGY1 Hilda Romo MD Resident 11/09/19 1547 Associated attestation - Armen Mckeon MD - 11/10/2019 9:01 PM EDT ED ATTENDING ATTESTATION NOTE The patient was seen in conjunction with the resident physician. I have independently performed thekey portions of the history and physical exam. I have personally reviewed nursing notes, vital signs, and diagnostic studies including labs, imaging studies and EKGs. I have discussed the details of the case with the resident and agree with the assessment and plan as described in the resident's note. Briefly, 64 y.o. male who presents with incisional drainage. Post op R thoracotomy and mediastinal mass resection on 10/23. He was doing well and over the past 2-3 days started to notice increasing pain and drainage from the superior aspect of the incision. On exam he is well appearing. On the posterior aspect of the right chest there is a wound with purulent drainage. There is a fluctuant mass on the lateral aspect of the chest. Lungs were clear. Labs with WBC 14.6 CT chest with fluid collection Assessment: 64 y.o. male with post op chest wall abscess from thoracotomy on 10/23. Started on broadspectrum abx and thoracic surgery consulted. He was admitted to the thoracic surgery team. * Emmett Reynolds MD - 11/09/2019 7:42 AM EDT S/p thoracotomy on 10/23 by thoracics for thymoma now with increasing pain, redness, swelling, pus at incision site. Please page thoracics resident on arrival and obtain labs, cxr. Emmett Reynolds MD 11/09/19 0743 documented in this encounter Miscellaneous Notes * Plan of Care - Amaris Aguirre RN - 11/14/2019 6:35 AM EDT Problem: Patient Care Overview Goal: Plan of Care Review Outcome: Ongoing (Interventions Implemented as Appropriate) 11/14/19626 Coping/Psychosocial Plan Of Care Reviewed With patient Plan of Care Review Progress improving OUTCOME SUMMARY: ?? A&Ox4. Tolerating regular diet w/out complaints of N/V. IV antibiotics continue. Wound Vac to Rback w/minimal drainage, tolerating w/minimal complaints of pain. Scheduled tylenol and Ibuprofen. Voiding QS via urinal, no c/o pain. BM this shift. Patient hopeful about going home today. Call light in reach. ?? PLAN MOVING FORWARD: Discharge planning for likely dc today. Continue antibiotics per orders. Monitor I&Os ?? INDIVIDUALIZED FALL PREVENTION INTERVENTIONS: ?? Patient-specific fall risk factors per assessment: [current deficits]: Pain, IV tubing, Wound vac ?? Assistance [level of assistance required for transfers and ambulation]: Independent with ambulation, walker to support wound vac. ?? Supervision [direct monitoring required during toileting and ADLs]: Eyes on ?? Surveillance [continuous indirect monitoring]: Call light in reach, bed alarm for safety, Safety rounding ?? Patient-specific fall prevention interventions for sensory deficits provided, if applicable: [X] Yes personal belongings in reach,, Light adjusted to promote sleep, ? CPG GOAL OUTCOME EVALUATION: Ongoing Goal: Individualization & Mutuality Outcome: Ongoing (Interventions Implemented as Appropriate) 11/14/19626 Mutuality/Individual Preferences What Anxieties, Fears or Concerns Do You Have About Your Health or Care? Concerned that infection is getting worse. Goal: Fall Prevention-Safe Patient Handling Outcome: Ongoing (Interventions Implemented as Appropriate) 11/14/19626 Restraint Interventions Safety Promotion/Fall Prevention activity supervised;fall prevention program maintained;nonskid shoes/slippers when out of bed;safety round/check completed Activity Activity Type activity adjusted per tolerance Activity Assistance Provided independent Assistive Device Utilized none Positioning Body Position independent Daily Care Interventions Self-Care Promotion independence encouraged;BADL personal objects within reach;BADL personal routines maintained Viera Fall Risk History of Falling 0 Secondary Diagnosis 15 Ambulatory Aids 0 Intravenous Therapy/Heparin/Saline Lock 20 Gait/Transferring 0 Mental Status 0 Score 35 OTHER Viera Fall Risk Med Goal: Infection Control Outcome: Ongoing (Interventions Implemented as Appropriate) 11/14/19626 Safety Interventions Isolation Precautions standard precautions maintained Infection Prevention rest/sleep promoted Coping Strategies Supportive Measures active listening utilized Problem: Infection, Risk/Actual (Adult) Goal: Identify Related Risk Factors and Signs and Symptoms Related risk factors and signs and symptoms are identified upon initiation of Human Response Clinical Practice Guideline (CPG) Outcome: Ongoing (Interventions Implemented as Appropriate) 11/14/19626 Infection, Risk/Actual Infection, Risk/Actual: Related Risk Factors skin integrity impairment;surgery/procedure Signs and Symptoms (Infection, Risk/Actual) drainage;pain Goal: Infection Prevention/Resolution Patient will demonstrate the desired outcomes by discharge/transition of care. Outcome: Ongoing (Interventions Implemented as Appropriate) 11/14/19626 Infection, Risk/Actual (Adult) Infection Prevention/Resolution making progress toward outcome * Plan of Care - Becca Wolfe RN - 11/13/2019 5:27 PM EDT Problem: Patient Care Overview Goal: Plan of Care Review Outcome: Ongoing (Interventions Implemented as Appropriate) 11/13/19 1701 Coping/Psychosocial Plan Of Care Reviewed With patient Plan of Care Review Progress progress toward functional goals as expected OUTCOME EVALUATION NOTE: OUTCOME SUMMARY: Pt A&Ox4 throughout shift. Pt tolerating regular diet w/out complaints of N/V. Pt receiving abxvia PIV, tolerating well. Pt did ambulate around unit with MD during shift, tolerated well. Pt w/Wound Vac to R back w/minimal drainage, tolerating w/minimal complaints of pain. Pt voiding QS via urinal, no c/o pain. Pt has not moved bowels over this shift. Pt able to rest between care. Bed Alarm activated for safety. PLAN MOVING FORWARD: Monitor Pain, Monitor I&O, Encourage Ambulation, Monitor PO tolerance, Maintain Safety, Discharge Planning INDIVIDUALIZED FALL PREVENTION INTERVENTIONS: Patient-specific fall risk factors per assessment: [current deficits]: Needs assistance getting outof bed or chair, Pain with movement/ambulation. Assistance [level of assistance required for transfers and ambulation]: Walker, Cane, Wheel chair, IV pole, Independent, Non-skid shoes/slippers, 1 or 2 person assist, stand by Supervision [direct monitoring required during toileting and ADLs]: Arms reach Surveillance [continuous indirect monitoring]: Purposeful rounding, Call james in reach, Family at bedside, Bed alarm, Masimo Patient-specific fall prevention interventions for sensory deficits provided, if applicable: [X] Yes Glasses, Light adjusted for task/safety CPG GOAL OUTCOME EVALUATION: Goal: Individualization & Mutuality Outcome: Ongoing (Interventions Implemented as Appropriate) 11/13/19 170 Individualization Patient Specific Goals I have some pain Patient Specific Interventions Encouraged pain control, ambulated with MD Goal: Fall Prevention-Safe Patient Handling Outcome: Ongoing (Interventions Implemented as Appropriate) 11/13/19 0824 Viera Fall Risk History of Falling 0 Secondary Diagnosis 15 Ambulatory Aids 0 Intravenous Therapy/Heparin/Saline Lock 20 Gait/Transferring 0 Mental Status 0 Score 35 OTHER Viera Fall Risk Med Restraint Interventions Safety Promotion/Fall Prevention activity supervised;fall prevention program maintained;nonskid shoes/slippers when out of bed;safety round/check completed Positioning Body Position independent Activity Activity Type ambulated in room Activity Assistance Provided independent Assistive Device Utilized none Goal: Infection Control Outcome: Ongoing (Interventions Implemented as Appropriate) 11/13/19 08 Safety Interventions Isolation Precautions standard precautions maintained Infection Prevention environmental surveillance performed;personal protective equipment utilized;rest/sleep promoted Coping Strategies Supportive Measures active listening utilized Goal: Discharge Needs Assessment Outcome: Ongoing (Interventions Implemented as Appropriate) 11/10/19 0438 11/10/19 1641 Discharge Needs Assessment Concerns To Be Addressed -- no discharge needs identified Readmission Within The Last 30 Days previous discharge plan unsuccessful -- Equipment Needed After Discharge wound care supplies -- Discharge Disposition -- still a patient Current Health Outpatient/Agency/Support Group Needs homecare agency (specify level of care) -- Anticipated Changes Related to Illness none -- Activity/Self Care Review of Systems Equipment Currently Used at Home none -- Living Environment Transportation Available family or friend will provide -- Goal: Interdisciplinary Rounds/Family Conf Outcome: Ongoing (Interventions Implemented as Appropriate) 11/13/19 170 Interdisciplinary Rounds/Family Conf Participants patient;family;nursing;physician (HD) Problem: Infection, Risk/Actual (Adult) Goal: Identify Related Risk Factors and Signs and Symptoms Related risk factors and signs and symptoms are identified upon initiation of Human Response Clinical Practice Guideline (CPG) Outcome: Ongoing (Interventions Implemented as Appropriate) 11/13/19 170 Infection, Risk/Actual Infection, Risk/Actual: Related Risk Factors skin integrity impairment;surgery/procedure Goal: Infection Prevention/Resolution Patient will demonstrate the desired outcomes by discharge/transition of care. Outcome: Ongoing (Interventions Implemented as Appropriate) 11/13/19 0453 Infection, Risk/Actual (Adult) Infection Prevention/Resolution making progress toward outcome * Plan of Care - Kaye Goldberg RN - 11/13/2019 5:00 AM EDT Problem: Patient Care Overview Goal: Plan of Care Review Outcome: Ongoing (Interventions Implemented as Appropriate) 11/11/19 1540 11/12/191999 Coping/Psychosocial Plan Of Care Reviewed With -- patient Plan of Care Review Progress progress toward functional goals as expected -- OUTCOME EVALUATION NOTE: OUTCOME SUMMARY: Patient reported soreness on right side and in wound vac area. Right chest tube dressing dry and intact, area appears swollen. Patient declined oxycodone. Doctor called and Toradol given with some relief. Patient slept fairly well. Voiding well. Wound vac in place with small amount drainage. PLAN MOVING FORWARD: Monitor pain control. INDIVIDUALIZED FALL PREVENTION INTERVENTIONS: Patient-specific fall risk factors per assessment: [current deficits]: Pain, wound vac Assistance [level of assistance required for transfers and ambulation]: Independent Supervision [direct monitoring required during toileting and ADLs]: Eyes on Surveillance [continuous indirect monitoring]: Call light in reach, purposeful rounds Patient-specific fall prevention interventions for sensory deficits provided, if applicable: [X] Yesadjust lighting CPG GOAL OUTCOME EVALUATION: * Plan of Care - Regina Hutson RN - 11/12/2019 7:01 AM EDT Problem: Patient Care Overview Goal: Plan of Care Review Outcome: Ongoing (Interventions Implemented as Appropriate) 11/12/19 0653 Coping/Psychosocial Plan Of Care Reviewed With patient OUTCOME EVALUATION NOTE: OUTCOME SUMMARY: C/O 5/10 pain controlled by Toradol and Tylenol. Ad uneventful night.. ?? PLAN MOVING FORWARD: Will have vac dressing on the incision site today. INDIVIDUALIZED FALL PREVENTION INTERVENTIONS: Patient-specific fall risk factors per assessment: [current deficits]: Narcotics, Mobility aid at home, needs assistance getting in and out of bed or chair, pain with movement/ ambulation. ?? Assistance [level of assistance required for transfers and ambulation]: Non-skid slippers, 1 personassist Supervision [direct monitoring required during toileting and ADLs]: Hands on . Surveillance [continuous indirect monitoring]: Purposeful rounding; call light in reach Patient-specific fall prevention interventions for sensory deficits provided, if applicable: Lighting adjusted for safety. CPG GOAL OUTCOME EVALUATION: ?? * Consult Note - Yen Bush [facility] - 11/11/2019 4:33 PM EDT Clinical Pharmacist Note-Vancomycin Tree Lantigua [id number] Tree Lantigua is a 64 y.o. male is being monitored due to antibiotic therapy which includes intravenous vancomycin. Regimen: Vancomycin 1000 mg every 12 hours Indication: treatment of chest wall abscess Initiation Date:11/09/2019 Day of Therapy:3 Targeted Goal Range: 10 - 15 mcg/mL Pharmacokinetic information: Wt Readings from Last 1 Encounters: 11/09/19 77.1 kg (170 lb) Ht Readings from Last 1 Encounters: 10/24/19 182.9 cm (6') Labs: Vancomycin: Vanc Trough (mg/L) Date Value 11/11/2019 9.5 Drawn 30 minutes late Creatinine clearance: Creatinine (mg/dL) Date Value 11/11/2019 0.82 Cr Cl ~ 100 mL/minute Estimated Half-Life (T1/2) = 8 hours: Estimated Volume of distribution (Vd) = 54 Liters Recommendations: Dosing recommendations: ??? No change in vancomycin dose or dosing interval at this time. Trough appears subtherapeutic butwas drawn 30 minutes late. When corrected, true trough = 10.1 mg/L. Monitoring recommendations: ??? Recheck vancomycin trough level (30 minutes prior to a scheduled dose) if significant changes in SCr, BUN or fluid status occur; otherwise recheck serum trough levels (30 minutes prior to a scheduled dose) in 5-7 days. We will continue to monitor the patient as long as he remains on vancomycin therapy. Please watch SCr, BUN and fluid status closely. Please page the care area pharmacist with any questions you may have. Alternately, during off-hours you may call [phone] to contact a pharmacist. YEN BUSH [facility] Pager [phone] * Plan of Care - Becca Wolfe RN - 11/11/2019 4:16 PM EDT Problem: Patient Care Overview Goal: Plan of Care Review Outcome: Ongoing (Interventions Implemented as Appropriate) 11/11/19 1540 Coping/Psychosocial Plan Of Care Reviewed With patient Plan of Care Review Progress progress toward functional goals as expected OUTCOME EVALUATION NOTE: OUTCOME SUMMARY: Pt A&Ox4 throughout shift. Pt tolerating regular diet w/out complaints of N/V. Pt receiving Zosyn, Vanco, and MIVF via PIV, tolerating well. Pt did ambulate around room during shift, tolerated well. Pt w/Chad drain connected to [facility], tolerating w/out complaints of pain. Pt with wound vac supplies in room, may be applied tomorrow and pt will go home with this and VNA. Pt voiding QS via urina l, no c/o pain. Pt has not moved bowels over this shift. Pt able to rest between care. Bed Alarm activated for safety. PLAN MOVING FORWARD: Monitor Pain, Monitor I&O, Encourage Ambulation, Monitor PO tolerance, Maintain Safety, Discharge Planning INDIVIDUALIZED FALL PREVENTION INTERVENTIONS: Patient-specific fall risk factors per assessment: [current deficits]: Needs assistance getting outof bed or chair, Pain with movement/ambulation. Assistance [level of assistance required for transfers and ambulation]: Non-skid shoes/slippers, 1 person assist stand by Supervision [direct monitoring required during toileting and ADLs]: Arms reach Surveillance [continuous indirect monitoring]: Purposeful rounding, Call james in reach, Bed alarm, Masimo Patient-specific fall prevention interventions for sensory deficits provided, if applicable: [X] Yes Glasses,Light adjusted for task/safety CPG GOAL OUTCOME EVALUATION: Goal: Individualization & Mutuality Outcome: Ongoing (Interventions Implemented as Appropriate) 11/11/19 1540 Individualization Patient Specific Goals Am I going home today? Patient Specific Interventions Wound Vac placed to promote healing; D/C plan for 11/12/2019 Goal: Fall Prevention-Safe Patient Handling Outcome: Ongoing (Interventions Implemented as Appropriate) 11/11/19 0810 Viera Fall Risk History of Falling 0 Secondary Diagnosis 15 Ambulatory Aids 0 Intravenous Therapy/Heparin/Saline Lock 20 Gait/Transferring 0 Mental Status 0 Score 35 OTHER Viera Fall Risk Med Restraint Interventions Safety Promotion/Fall Prevention activity supervised;fall prevention program maintained;nonskid shoes/slippers when out of bed;safety round/check completed Positioning Body Position independent Activity Activity Type ambulated in room;up in chair Activity Assistance Provided independent Assistive Device Utilized none Goal: Infection Control Outcome: Ongoing (Interventions Implemented as Appropriate) 11/11/19 0810 Safety Interventions Isolation Precautions standard precautions maintained Infection Prevention environmental surveillance performed;personal protective equipment utilized;rest/sleep promoted Coping Strategies Supportive Measures active listening utilized Goal: Discharge Needs Assessment Outcome: Ongoing (Interventions Implemented as Appropriate) 11/10/19 0438 11/10/19 1641 Discharge Needs Assessment Concerns To Be Addressed -- no discharge needs identified Readmission Within The Last 30 Days previous discharge plan unsuccessful -- Equipment Needed After Discharge wound care supplies -- Discharge Disposition -- still a patient Current Health Outpatient/Agency/Support Group Needs homecare agency (specify level of care) -- Anticipated Changes Related to Illness none -- Activity/Self Care Review of Systems Equipment Currently Used at Home none -- Living Environment Transportation Available family or friend will provide -- Goal: Interdisciplinary Rounds/Family Conf Outcome: Ongoing (Interventions Implemented as Appropriate) 11/11/19 1540 Interdisciplinary Rounds/Family Conf Participants nursing;patient;physical therapy;physician Problem: Chest Tube Drainage Device (Adult) Goal: Signs and Symptoms of Listed Potential Problems Will be Absent, Minimized or Managed (Chest Tube Drainage Device) Signs and symptoms of listed potential problems will be absent, minimized or managed by discharge/transition of care (reference Chest Tube Drainage Device (Adult) CPG). Outcome: Ongoing (Interventions Implemented as Appropriate) 11/11/19 1540 Chest Tube Drainage Device Problems Assessed (Chest Tube Drainage Device) all Problems Present (Chest Tube Drainage Device) none Problem: Infection, Risk/Actual (Adult) Goal: Identify Related Risk Factors and Signs and Symptoms Related risk factors and signs and symptoms are identified upon initiation of Human Response Clinical Practice Guideline (CPG) Outcome: Ongoing (Interventions Implemented as Appropriate) 11/11/19 1540 Infection, Risk/Actual Infection, Risk/Actual: Related Risk Factors skin integrity impairment;surgery/procedure Goal: Infection Prevention/Resolution Patient will demonstrate the desired outcomes by discharge/transition of care. Outcome: Ongoing (Interventions Implemented as Appropriate) 11/11/19 1540 Infection, Risk/Actual (Adult) Infection Prevention/Resolution making progress toward outcome * Plan of Care - Regina Hutson RN - 11/11/2019 4:59 AM EDT Problem: Patient Care Overview Goal: Plan of Care Review Outcome: Ongoing (Interventions Implemented as Appropriate) OUTCOME EVALUATION NOTE: OUTCOME SUMMARY: .2143-C/O 6 pain on his right lateral chad drain site, given Oxycodone 5 mg po with relief. Slept on his right side. Chest tube site with intact dressing to suction with minimal output of serous sanguinous drainage. Able to sleep at intervals. ?? PLAN MOVING FORWARD: Awaiting final OR cultures for discharge antibiotic. Pain control and plan to put the vac dressing to right chest wound. INDIVIDUALIZED FALL PREVENTION INTERVENTIONS: Patient-specific fall risk factors per assessment: [current deficits]: Narcotics, Mobility aid at home, needs assistance getting in and out of bed or chair, pain with movement/ ambulation. ?? Assistance [level of assistance required for transfers and ambulation]: Walker, Non-skid slippers, 1 person assist Supervision [direct monitoring required during toileting and ADLs]: Hands on . Surveillance [continuous indirect monitoring]: Purposeful rounding; call light in reach, Bed/chair alarm Patient-specific fall prevention interventions for sensory deficits provided, if applicable: Lighting adjusted for safety. CPG GOAL OUTCOME EVALUATION: ?? * Plan of Care - Rhonda Khanna RN - 11/10/2019 4:53 PM EDT Problem: Patient Care Overview Goal: Plan of Care Review Outcome: Ongoing (Interventions Implemented as Appropriate) 11/10/19 1641 Coping/Psychosocial Plan Of Care Reviewed With patient Plan of Care Review Progress progress toward functional goals as expected OUTCOME EVALUATION NOTE: OUTCOME SUMMARY: AAOx4. VSS. Afebrile. Pt denies nausea. Pain well controlled with Tylenol and toradol. Pt voiding adequate amounts. Pt passing gas; no BMs this shift. Incisions CDI. Dressing changed by MDX1. STAT chest xray ordered after dressing change due to concern of air leak. IV antibiotics continued. Pt ambulated in halls. Will continue to monitor. PLAN MOVING FORWARD: Pain control. Monitor drain output. Encourage ambulation. INDIVIDUALIZED FALL PREVENTION INTERVENTIONS: Patient-specific fall risk factors per assessment: [current deficits]: CT tubing, IV pole Assistance [level of assistance required for transfers and ambulation]: 1 assist Supervision [direct monitoring required during toileting and ADLs]: Arms reach Surveillance [continuous indirect monitoring]: Masimo, purposeful rounding, call james in reach Patient-specific fall prevention interventions for sensory deficits provided, if applicable: [X] Yes, environmental modifications, lights adjusted to task, non- skid socks CPG GOAL OUTCOME EVALUATION: Ongoing Goal: Fall Prevention-Safe Patient Handling Outcome: Ongoing (Interventions Implemented as Appropriate) 11/10/19 0800 Viera Fall Risk History of Falling 0 Secondary Diagnosis 15 Ambulatory Aids 0 Intravenous Therapy/Heparin/Saline Lock 20 Gait/Transferring 0 Mental Status 0 Score 35 OTHER Viera Fall Risk Med Restraint Interventions Safety Promotion/Fall Prevention activity supervised;nonskid shoes/slippers when out of bed;safety round/check completed Positioning Body Position independent Activity Activity Type activity adjusted per tolerance Activity Assistance Provided assistance, stand-by Assistive Device Utilized none Goal: Infection Control Outcome: Ongoing (Interventions Implemented as Appropriate) 11/10/19 0800 Safety Interventions Isolation Precautions standard precautions maintained Infection Prevention rest/sleep promoted Coping Strategies Supportive Measures active listening utilized;verbalization of feelings encouraged Goal: Discharge Needs Assessment Outcome: Ongoing (Interventions Implemented as Appropriate) 11/10/19 1641 Discharge Needs Assessment Concerns To Be Addressed no discharge needs identified Discharge Disposition still a patient Goal: Interdisciplinary Rounds/Family Conf Outcome: Ongoing (Interventions Implemented as Appropriate) 11/10/19 1641 Interdisciplinary Rounds/Family Conf Participants nursing;patient;physician Problem: Chest Tube Drainage Device (Adult) Goal: Signs and Symptoms of Listed Potential Problems Will be Absent, Minimized or Managed (Chest Tube Drainage Device) Signs and symptoms of listed potential problems will be absent, minimized or managed by discharge/transition of care (reference Chest Tube Drainage Device (Adult) CPG). Outcome: Ongoing (Interventions Implemented as Appropriate) 11/10/19 1641 Chest Tube Drainage Device Problems Assessed (Chest Tube Drainage Device) all Problems Present (Chest Tube Drainage Device) pain * Initial Assessments - Kassie Marie RN - 11/10/2019 4:18 PM EDT Office of Care Management Initial Assessment Face to Face Case Management visits deferred at this time r/t Covid-19 pandemic, exposure reductionand conserving PPE. Kassie Marie, RN reviewed record and discussed patient with Care Team. Source of Information: Thoracic Team, bedside nurse, chart review. Last COVID test: 11/09/19 - 19:57- Not detected Reason for Hospitalization: <principal problem not specified> note: 64 y.o. male s/p Procedure(s): INCISION & DRAINAGE HEMATOMA, SEROMA OR FLD. COLLECTION, CHEST History reviewed. No pertinent past medical history. Hospitalizations Within the Past 30 Days: Yes was here on 10/25/19 [facility] admits in last 30 days. Anticipated Length Of Stay (If known): Vs TBD Current Decision-Making Capacity: Patient is A&Ox4 Has current decision making capacity. Advance Care Planning: Attempt Cardiopulmonary Resuscitation - Inpatient No AD in [facility]. If AD's have not been completed would be surrogate decision maker per [place] surrogate decision making law. Any patient receiving care at [facility] must abide by [place] law. The hierarchy for surrogate decision making is: (a) Patient???s spouse, or civil union partner or common law spouse unless there is a divorce proceeding, separation [...] (i) The agent with financial power of commonwealth attorney or a conservator appointed in accordance with [place] 464-A. (j) The guardian of the patient???s estate. Current Coping/Education/Information Needs: Current coping questions and concerns have been addressed. Current Functional Ability: SBA Functional Status Prior to Admission: Independent Behavioral Health History: none stated above in medical history Substance Use/Abuse: Social History Tobacco Use ??? Smoking status: Never Smoker ??? Smokeless tobacco: Never Used Substance Use Topics ??? Alcohol use: Yes Alcohol/week: 2.0 standard drinks Types: 1 Glasses of wine, 1 Cans of beer per week ??? Drug use: Never Home Environment: Lives with , has no concerns about navigating the home [address] [place] [address] Social & Family Supports/Community Resources: Family Extended Emergency Contact Information Primary Emergency Contact: Lillian Tyson Address: [address] [place] [address] Mobile Relation: Spouse Health/Prescription Coverage: Primary Insurance: [employer] MANAGED MEDICARE Secondary Insurance: N/A Prescription Coverage: Yes Preferred Pharmacy: [id number] AT [facility] [address] [id number] Other: none Primary Care Provider: Christiana Moore APRN [phone] Patient/Caregiver Goals of Treatment: Deferred Potential Needs for Transition of Care: Rehab/SNF: None anticipated Home Health: None anticipated ( [facility] ) DME: None anticipated Dialysis: None anticipated Community Resources: None anticipated Transportation: family Anticipated Barriers to Discharge/Special Considerations: none vs anticipated barriers to arise as hospitalization continues. Assessment: Home with VNA vs Patient with no apparent RNCM/SW needs at this time. No housing, transportation, insurance, resources concerns identified at this time. Supports in place to achieve a safe post-hospital transition. No identified barriers to accessing necessary care and/or follow-up after discharge. Plan: A member of the Care Management team will continue to monitor progress, follow for continuityof care and assist with transition of care planning. Kassie Marie RN CM Calendar Control Clerk Blood Bank Pager # [phone] * Plan of Care - Felicia Vaca RN - 11/10/2019 5:33 AM EDT Problem: Patient Care Overview Goal: Plan of Care Review Outcome: Ongoing (Interventions Implemented as Appropriate) 11/10/19 0525 Coping/Psychosocial Plan Of Care Reviewed With patient Plan of Care Review Progress progress toward functional goals is gradual OUTCOME EVALUATION NOTE: OUTCOME SUMMARY: Tree had a good shift, slept between care. A&O X 4. VSS on RA. Pain controlled, with current regimen. Urine output adequate. Went for I&D of back incision. Chest tube placed for serosanguinous drainage on the right, draining a moderate amount. Ambulates Stand by assist. Will continue to monitor. PLAN MOVING FORWARD: Encourage mobility, IS, pain management. INDIVIDUALIZED FALL PREVENTION INTERVENTIONS: Patient-specific fall risk factors per assessment: [current deficits]: Chest Tube, IVs, pain medication, recent procedure Assistance [level of assistance required for transfers and ambulation]: Standby assist X 1 Supervision [direct monitoring required during toileting and ADLs]: Arms reach Surveillance [continuous indirect monitoring]: Call james within reach, purposeful rounding. Patient-specific fall prevention interventions for sensory deficits provided, if applicable: No CPG GOAL OUTCOME EVALUATION: Goal: Individualization & Mutuality Outcome: Ongoing (Interventions Implemented as Appropriate) 11/10/19 0525 Individualization Patient Specific Preferences Likes to be caled Adi Patient Specific Goals Wants to sleep Patient Specific Interventions Decrease stimulation Mutuality/Individual Preferences What Anxieties, Fears or Concerns Do You Have About Your Health or Care? Questions about chest tube What Information Would Help Us Give You More Personalized Care? Likes to ambulate frequently Goal: Fall Prevention-Safe Patient Handling Outcome: Ongoing (Interventions Implemented as Appropriate) 11/09/19 2100 11/09/19 1223 Viera Fall Risk History of Falling 0 -- Secondary Diagnosis 15 -- Ambulatory Aids 0 -- Intravenous Therapy/Heparin/Saline Lock 20 -- Gait/Transferring 0 -- Mental Status 0 -- Score 35 -- OTHER Viera Fall Risk Med -- Restraint Interventions Safety Promotion/Fall Prevention fall prevention program maintained;nonskid shoes/slippers when outof bed;safety round/check completed -- Activity Activity Type -- activity adjusted per tolerance Activity Assistance Provided -- assistance, stand-by Assistive Device Utilized -- none Goal: Infection Control Outcome: Ongoing (Interventions Implemented as Appropriate) 11/09/19 2100 Safety Interventions Isolation Precautions standard precautions maintained Infection Prevention environmental surveillance performed;equipment surfaces disinfected;personal protective equipment utilized;rest/sleep promoted;single patient room provided Coping Strategies Supportive Measures active listening utilized;decision-making supported;goal setting facilitated;positive reinforcement provided;problem solving facilitated;relaxation techniques promoted;self-care encouraged Goal: Discharge Needs Assessment Outcome: Ongoing (Interventions Implemented as Appropriate) 11/10/19 0438 Discharge Needs Assessment Concerns To Be Addressed discharge planning concerns Readmission Within The Last 30 Days previous discharge plan unsuccessful Equipment Needed After Discharge wound care supplies Discharge Disposition still a patient Current Health Outpatient/Agency/Support Group Needs homecare agency (specify level of care) Anticipated Changes Related to Illness none Activity/Self Care Review of Systems Equipment Currently Used at Home none Living Environment Transportation Available family or friend will provide Goal: Interdisciplinary Rounds/Family Conf Outcome: Ongoing (Interventions Implemented as Appropriate) 11/10/19 0525 Interdisciplinary Rounds/Family Conf Participants nursing;patient;physician * Brief Op Note - Darren Bennett MD - 11/10/2019 1:00 AM EDT Brief Operative Note Patient Name: Tree Lantigua : [id number] MR#: [id number] Case Date: 11/09/2019 - 11/10/2019 Surgeon: Surgeon(s) and Role: * Piyush Rojo MD - Primary * Darren Bennett MD - Resident Preoperative diagnosis: right chest abscess, pleural effusion Postoperative diagnosis: right chest abscess, pleural effusion Procedure(s) (LRB): INCISION & DRAINAGE HEMATOMA, SEROMA OR FLD. COLLECTION, CHEST (WRVU 1.58) (Right) Anesthesia: General Findings: purulent fluid found on opening of the posterior aspect of the previous right thoracotomyincision. Right lateral chest tube site opened. Cavity thoroughly irrigated with pulse straw hat brim cutter operator. 19F Chad drain left in the pleural cavity via the inferior incision. Complications: none Estimated Blood Loss: * No values recorded between 11/10/2019 12:22 AM and 11/10/2019 12:44 AM * Specimens removed during surgery: None Fluids: Intraprocedure Crystalloid Total Intake Lactated Ringers 500.00 mL Total Intake 500 mL Output Blood Loss 10 mL Total Output 10 mL Net Net Volume 490 mL PRBCs: none (See Anesthesia Record/Report for Other Blood Products) Urine Output: (no urine output recorded) Drains: 19F Chad drain right pleura Patient Lines/Drains/Airways Status Active Tubes/Lines/Drains Name: Placement date: Placement time: Site: Days: Peripheral IV Line - Single Lumen 11/09/19 1047 median cubital vein (antecubital fossa), right 20 gauge 11/09/19 1047 1 Peripheral IV Line - Single Lumen 11/09/19 1604 median cubital vein (antecubital fossa), left 20 gauge 11/09/19 1604 1 Drain/Device Site 11/10/19 0038 Right chest 11/10/19 0038 less than 1 Chest Tube 11/10/19 0032 Right 11/10/19 0032 less than 1 Disposition: awakened from anesthesia, extubated and taken to the recovery room in a stable condition, having suffered no apparent untoward event. Condition: doing well without problems (Please see the Surgical Encounter Summary for any Implant and Specimen details pertinent to this patient.) Infection Bundle used? N/A * Op Note - Piyush Rojo MD - 11/10/2019 12:58 AM EDT [facility] Operative Note Patient Name: Tree Lantigua : [id number] MR#: [id number] Case Date: 11/09/2019 - 11/10/2019 Surgeon: Surgeon(s) and Role: * Piyush Rojo MD - Primary * Darren Bennett MD - Resident Preoperative diagnosis: right chest abscess, pleural effusion Postoperative diagnosis: right chest abscess, pleural effusion Procedure(s) (LRB): INCISION & DRAINAGE HEMATOMA, SEROMA OR FLD. COLLECTION, CHEST (WRVU 1.58) (Right) Findings: Approximately 250 cc of murky fluid deep to the latissimus dorsi muscle Anesthesia: General Estimated Blood Loss: * No values recorded between 11/10/2019 12:22 AM and 11/10/2019 12:44 AM * Specimens removed during surgery: Right chest wall abscess for culture Drains: #19 Chad drain in right pleural space Surgical Closure: Other Than Primary Closure - deep and superficial layers are left completely openduring original surgery Disposition: awakened from anesthesia, extubated and taken to the recovery room in a stable condition, having suffered no apparent untoward event. 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 General anesthesia was induced and he was endotracheally intubated. He was positioned in the left lateral decubitus, right side up position and the chest prepped with Betadine. A previously placed wick was removed. A hard stop surgical timeout confirmed the patient's identity as well as the nature and laterality of the procedure to be performed. The posterior aspect of the previous thoracotomy incision was then bluntly reopened with a fingertip. There was a bañuelos of approximately 250 cc of murky, opaque, odorless fluid. This was sampled with a Q-tip for culture. The chest wall was palpable as well as the space underneath the scapula, suggesting that the site of the infection wasdeep to the latissimus dorsi muscle. The abscess cavity probed anteriorly to the end of the thoracotomy incision. The pocket was copiously irrigated with normal saline using the pulse straw hat brim cutter operator. A previous chest tube site was anesthetized with Marcaine, and a small piece of retained silk suture wasremoved. The chest tube site was extended slightly such that a fingertip could be placed into the right pleural space. Pleural adhesions were noted. There was no bañuelos of fluid from the right pleural space, but we were able to create a sufficiently large pocket to place a #19 round Chad drain into this pocket. This drain was connected to a Pleur-evac, and the chest tube incision reapproximated around the drain with 2-0 Prolene vertical mattress sutures. The tube was secured and the posterior wound was packed with a single Kerlix soaked in normal saline, and covered with an ABD gauze. The patient was then allowed to emerge from anesthesia before being extubated in the operating room reportedto the recovery area without incident. All of the sponge, needle and instrument counts were correct, and as the attending surgeon I was present and scrubbed at the bedside throughout the case. PIYUSH ROJO MD * ED Triage - Inderjit Lamb, RN - 11/09/2019 10:35 AM EDT Pt to ED 19 for c/o pain 9/10 at incision site following recent thoracotomy surgery. Pt was recovering nicely until about four days ago when pain began to increase. Site red and swollen. Pt reports that he has been unable to lie down or get any sleep in four days. A/o x 4. Skin WPD. documented in this encounter Plan of Treatment Not on file documented as of this encounter Procedures Procedure Name Priority Date/Time Associated Diagnosis Comments XR CHEST PA AND LATERAL Routine 11/12/2019 8:27 AM EDT HC HEMOGRAM Routine 11/12/2019 5:42 AM EDT HC PHOSPHORUS, SERUM Routine 11/12/2019 5:42 AM EDT HC MAGNESIUM, SERUM Routine 11/12/2019 5 :42 AM EDT HC VENIPUNCTURE Routine 11/12/2019 5:42 AM EDT HC VENIPUNCTURE Timed 11/11/2019 3:01 PM EDT HC HEMOGRAM Routine 11/11/2019 4:09 AM EDT HC PHOSPHORUS, SERUM Routine 11/11/2019 4:09 AM EDT HC MAGNESIUM, SERUM Routine 11/11/2019 4 :09 AM EDT HC VENIPUNCTURE Routine 11/11/2019 4:09 AM EDT XR CHEST PA AND LATERAL STAT 11/10/2019 9:03 AM EDT HC HEMOGRAM Routine 11/10/2019 8:29 AM EDT HC PHOSPHORUS, SERUM Routine 11/10/2019 8:29 AM EDT HC MAGNESIUM, SERUM Routine 11/10/2019 8 :29 AM EDT HC VENIPUNCTURE Routine 11/10/2019 8:29 AM EDT ANAEROBIC CULTURE Routine 11/10/2019 12: 25 AM EDT HC WOUND/ABSCESS CX Routine 11/10/2019 1 2:25 AM EDT ABSCESS/WOUND ASPIRATE CULTURE Routine 11/10/2019 12:25 AM EDT I&D Hematoma Seroma/Fluid Collection ([id number]) 11/09/2019 11:53 PM EDT right chest abscess, pleural effusion RAPID COVID-19 PCR ([facility]) STAT 11/09/2019 7:57 PM EDT INCISION & DRAINAGE HEMATOMA, SEROMA OR FLD. COLLECTION, CHEST Routine 11/09/2019 6:[address] CHEST W CONTRAST STAT 11/09/2019 1 :54 PM EDT HEMOGRAM STAT 11/09/2019 10:50 AM EDT DIFFERENTIAL, AUTOMATED STAT 11/09/2019 10:50 AM EDT BLUE TUBE HOLD STAT 11/09/2019 10:50 AM EDT HC CBC,PLT & AUTO DIFF STAT 11/09/2019 10:50 AM EDT BASIC METABOLIC PANEL STAT 11/09/2019 10:50 AM EDT XR CHEST PA AND LATERAL STAT 11/09/2019 10:38 AM EDT documented in this encounter Results * XR Chest PA & Lateral (Generic) (11/12/2019 8:27 AM EDT) Anatomical Region Laterality Modality Chest N/A Digital Radiogra phy Impressions 11/12/2019 8:35 AM EDT There is a small right-sided hydropneumothorax. The amount of air present has diminished since the previous examination. Thank you for letting us participate in the care of this patient. For questions regarding this report, please contact the number below. ? Narrative 11/12/2019 8:35 AM EDT EXAMINATION: XR CHEST PA AND LATERAL (GENERIC) CLINICAL HISTORY: s/p removal of Right chest Chad drain TECHNIQUE: PA and lateral views of the chest COMPARISON: November 10, 2019 FINDINGS: There is a small air fluid level in the anterior aspect of the chest as seen in the lateral projection. The amount of fluid has increased in the interval since the prior study. The amount of air present has diminished. The right-sided chest tube has been removed. Subcutaneous air in the right chest wall is present. Bilateral pleural effusions are seen. There is bibasilar atelectasis. Surgical jocelyn project in the lower right hemithorax. Procedure Note Maurilio Mccartney MD - 11/12/2019 EXAMINATION: XR CHEST PA AND LATERAL (GENERIC) CLINICAL HISTORY: s/p removal of Right chest Chad drain TECHNIQUE: PA and lateral views of the chest COMPARISON: November 10, 2019 FINDINGS: There is a small air fluid level in the anterior aspect of the chest asseen in the lateral projection. The amount of fluid has increased in the intervalsince the prior study. The amount of air present has diminished. The right-sided chest tube has been removed. Subcutaneous air in the rightchest wall is present. Bilateral pleural effusions are seen. There is bibasilar atelectasis.Surgical jocelyn project in the lower right hemithorax. IMPRESSION There is a small right-sided hydropneumothorax. The amount of air presenthas diminished since the previous examination. Thank you for letting us participate in the care of this patient. Forquestions regarding this report, please contact the number below. Electronically signed by: Maurilio Mccartney [facility]([phone]), at 11/12/2019 8:35 AM Piyush Rojo MD IMG DX ORDERABLE S * Phosphorus (11/12/2019 5:42 AM EDT) Pathologist [facility] Phosphorus 3.9 2.5 - 4.5 mg/dL [facility] Blood specimen (specimen) 11/12/2019 5:42 AM EDT 11/12/2019 5:48 AM EDT Narrative Resulting Agency Comment Spec In Lab Piyush Rojo MD CHEMISTRY ORDERA BLES Performing Organization Address City/[facility]/ZIP Co de Phone Number [facility] [place] [address] * Magnesium (11/12/2019 5:42 AM EDT) Pathologist [facility] Magnesium 0.84 0.69 - 1.07 mmol/L [facility] Blood specimen (specimen) 11/12/2019 5:42 AM EDT 11/12/2019 5:48 AM EDT Narrative Resulting Agency Comment Spec In Lab Piyush Rojo MD CHEMISTRY ORDERA BLES Performing Organization Address City/[facility]/ZIP Co de Phone Number [facility] [place] [address] * (ABNORMAL) Hemogram (11/12/2019 5:42 AM EDT) White Blood Cell 10.3(H) 4.0 - 9.5 x10(3)/[facility] Red Blood Cell 6.27(H) 4.58 - 5.54 x10(6)/[facility] Hemoglobin 12.3(L) 13.7 - 16.5 gm/dL [facility] Hematocrit 40.8 40.5 - 48.5 % [facility] Mean Cell Volume 65.1(L) 82.9 - 93.1 fL [facility] Mean Cell Hemoglobin 19.6(L) 27.5 - 32.1 pg [facility] Mean Cell Hemoglobin Concentration 30.1(L) 32.0 - 35.7 gm/dL [facility] Platelet 498(H) 145 - 357 x10(3)/[facility] LABORATORY RDW Standard Deviation 34.4(L) 36.0 - 45.0 [facility] LABORATORY RDW coefficient of variation 15.2(H) 11.4 - 13.8 % [facility] Mean Platelet Volume 9.1 7.6 - 12.9 [facility] LABORATORY NRBC% auto 0.0 % [facility] NRBC Absolute 0.000 0.000 - 0.000 x10(3)/[facility] LABORATORY Blood specimen (specimen) 11/12/2019 5:42 AM EDT 11/12/2019 5:48 AM EDT Narrative Resulting Agency Comment Spec In Lab Piyush Rojo MD HEMATOLOGY ORDER JAYCE [facility] [place] [address] * Basic Metabolic Panel (non-fasting) (11/12/2019 5:42 AM EDT) [facility] Glucose 92 65 - 199 mg/dL [facility] Comment:Diabetes: >=200 mg/d L plus symptoms Blood Urea Nitrogen 15 10 - 20 mg/dL [facility] Creatinine 0.81 0.80 - 1.50 mg/dL [facility] Sodium 138 135 - 145 mmol/L [facility] Potassium 3.9 3.5 - 5.0 mmol/L [facility] Comment: Please note: ??Patients with WBC >100,000 may have falsely elevated Potassium levels. ??For accurate Potassium quantification in these patients send serum separator tube (gold top) for subsequent determinations. ??Contact the Clinical Chemistry Laboratory if there are any questions. Chloride 100 98 - 107 mmol/L [facility] Carbon Dioxide 26 22 - 31 mmol/L [facility] Anion Gap 12 5 - 15 mmol/L [facility] Calcium 9.1 8.5 - 10.5 mg/dL [facility] Est Glomerular Filtration Rate 93 >=60 mL/min/1. 73 m?? [facility] Comment: The eGFR was calculated using the CKD-EPI equation. As with all creatinine based estimates of kidney function, eGFR values calculated with the CKD-EPI equation are not accurate in patients with acute kidney failure, extremes of body mass or the acutely ill. [email or web address] eGFR 108 >=60 mL/min/1. 73 m?? [facility] Comment: The eGFR was calculated using the CKD-EPI equation. As with all creatinine based estimates of kidney function, eGFR values calculated with the CKD-EPI equation are not accurate in patients with acute kidney failure, extremes of body mass or the acutely ill. [email or web address] Blood specimen (specimen) 11/12/2019 5:42 AM EDT 11/12/2019 5:48 AM EDT Narrative Resulting Agency Comment Spec In Lab Piyush Rojo MD CHEMISTRY ORDERA BLES [facility] [place] [address] * Vancomycin, trough (11/11/2019 3:01 PM EDT) Vancomycin, Trough 9.5 mg/L [facility] Comment: Therapeutic range for complicated infections such as bacteremia, endocarditis, osteomyelitis, meningitis, and hospital-acquired pneumonia caused by S. aureus: 15-20 mg/L Therapeutic range for other indications: 10-15 mg/L Toxic: >20 mg/L Reference: Vancomycin Therapeutic Monitoring: Review and Recommendations from the ASHP, IDSA and SIDP Task Force. ??Am J Health-Syst Pharm. 2009; 66:82-98 Blood specimen (specimen) 11/11/2019 3:01 PM EDT 11/11/2019 3:08 PM EDT Narrative Resulting Agency Comment Spec In Lab Piyush Rojo MD CHEMISTRY ORDERA BLES Performing Organization Address [facility] Co de Phone Number [facility] [place] [address] * Phosphorus (11/11/2019 4:09 AM EDT) Phosphorus 3.4 2.5 - 4.5 mg/dL [facility] Blood specimen (specimen) 11/11/2019 4:09 AM EDT 11/11/2019 4:24 AM EDT Narrative Resulting Agency Comment Spec In Lab Piyush Rojo MD CHEMISTRY ORDERA BLES Performing Organization Address [facility]/ZIP Co de Phone Number [facility] [place] [address] * Magnesium (11/11/2019 4:09 AM EDT) Magnesium 0.84 0.69 - 1.07 mmol/L [facility] Blood specimen (specimen) 11/11/2019 4:09 AM EDT 11/11/2019 4:24 AM EDT Narrative Resulting Agency Comment Spec In Lab Piyush Rojo MD CHEMISTRY ORDERA BLES Performing Organization Address City/[facility]/ZIP Co de Phone Number [facility] [place] [address] * (ABNORMAL) Hemogram (11/11/2019 4:09 AM EDT) [facility] White Blood Cell 13.8(H) 4.0 - 9.5 x10(3)/[facility] LABORATORY Red Blood Cell 5.36 4.58 - 5.54 x10(6)/[facility]ATORY Hemoglobin 10.7(L) 13.7 - 16.5 gm/dL [facility] Hematocrit 34.8(L) 40.5 - 48.5 % [facility] Mean Cell Volume 64.9(L) 82.9 - 93.1 [facility]ORY Mean Cell Hemoglobin 20.0(L) 27.5 - 32.1 pg [facility] Mean Cell Hemoglobin Concentration 30.7(L) 32.0 - 35.7 gm/dL [facility] Platelet 384(H) 145 - 357 x10(3)/[facility]ORATORY RDW Standard Deviation 35.5(L) 36.0 - 45.0 [facility]ORATORY RDW coefficient of variation 15.7(H) 11.4 - 13.8 % [facility] Mean Platelet Volume 8.9 7.6 - 12.9 [facility] LABORATORY NRBC% auto 0.0 % [facility] NRBC Absolute 0.000 0.000 - 0.000 x10(3)/[facility] Blood specimen (specimen) 11/11/2019 4:09 AM EDT 11/11/2019 4:24 AM EDT Narrative Resulting Agency Comment Spec In Lab Piyush Rojo MD HEMATOLOGY ORDER JAYCE [facility] [place] [address] * (ABNORMAL) Basic Metabolic Panel (non-fasting) (11/11/2019 4:09 AM EDT) [facility] Glucose 117 65 - 199 mg/dL [facility] Comment:Diabetes: >=200 mg/d L plus symptoms Blood Urea Nitrogen 22(H) 10 - 20 mg/dL [facility] Creatinine 0.82 0.80 - 1.50 mg/dL [facility] Sodium 139 135 - 145 mmol/L [facility] Potassium 3.9 3.5 - 5.0 mmol/L [facility] Comment: Please note: ??Patients with WBC >100,000 may have falsely elevated Potassium levels. ??For accurate Potassium quantification in these patients send serum separator tube (gold top) for subsequent determinations. ??Contact the Clinical Chemistry Laboratory if there are any questions. Chloride 102 98 - 107 mmol/L [facility] Carbon Dioxide 25 22 - 31 mmol/L [facility] Anion Gap 12 5 - 15 mmol/L [facility] Calcium 8.6 8.5 - 10.5 mg/dL [facility] Est Glomerular Filtration Rate 93 >=60 mL/min/1. 73 m?? [facility] Comment: The eGFR was calculated using the CKD-EPI equation. As with all creatinine based estimates of kidney function, eGFR values calculated with the CKD-EPI equation are not accurate in patients with acute kidney failure, extremes of body mass or the acutely ill. [email or web address] eGFR 108 >=60 mL/min/1. 73 m?? [facility] Comment: The eGFR was calculated using the CKD-EPI equation. As with all creatinine based estimates of kidney function, eGFR values calculated with the CKD-EPI equation are not accurate in patients with acute kidney failure, extremes of body mass or the acutely ill. [email or web address] Blood specimen (specimen) 11/11/2019 4:09 AM EDT 11/11/2019 4:24 AM EDT Narrative Resulting Agency Comment Spec In Lab Piyush Rojo MD CHEMISTRY ORDERA BLES [facility] [place] [address] * XR Chest PA & Lateral (Generic) (11/10/2019 9:03 AM EDT) Anatomical Region Laterality Modality Chest N/A Digital Radiogra phy Impressions 11/10/2019 9:42 AM EDT 1. ??Small right anterior basilar pneumothorax. 2. ??Stable left basilar linear opacities consistent with atelectasis or parenchymal scarring. I have personally reviewed the image(s) and the resident's interpretation and agree with the findings, Jing Hudson at 11/10/2019 9:42 AM Thank you for letting us participate in the care of this patient. For questions regarding this report, please contact the number below. ? Electronically signed by: Jing Hudson [facility] ([phone]), at 11/10/2019 9:42 AM Narrative 11/10/2019 9:42 AM EDT EXAMINATION: XR CHEST PA AND LATERAL (GENERIC) CLINICAL HISTORY: s/p I&D of previous R thoracotomy, currently packed with chad in pleural space with new intermittent leak on CT; hx of right wedge resection x5 please eval for pneumothorax TECHNIQUE: PA and lateral views of the chest COMPARISON: Chest radiograph 11/09/2019, CT chest 11/09/2019 FINDINGS: Small right anterior basilar pneumothorax best visualized on lateral view with subcutaneous emphysema at right lateral chest wall. Stable left basilar linear opacities consistent with atelectasis or parenchymal scarring, unchanged from preadmission radiographs. Cardiomediastinal silhouette is unchanged. No interval osseous findings. Interval placement of chest tube right lung base. Surgical clips noted. Procedure Note Jing Ramirez MD - 11/10/2019 EXAMINATION: XR CHEST PA AND LATERAL (GENERIC) CLINICAL HISTORY: s/p I&D of previous R thoracotomy, currently packedwith chad in pleural space with new intermittent leak on CT; hx of rightwedge resection x5 please eval for pneumothorax TECHNIQUE: PA and lateral views of the chest COMPARISON: Chest radiograph 11/09/2019, CT chest 11/09/2019 FINDINGS: Small right anterior basilar pneumothorax best visualized on lateral viewwith subcutaneous emphysema at right lateral chest wall. Stable left basilarlinear opacities consistent with atelectasis or parenchymal scarring, unchangedfrom preadmission radiographs. Cardiomediastinal silhouette is unchanged. Nointerval osseous findings. Interval placement of chest tube right lung base.Surgical clips noted. IMPRESSION 1. Small right anterior basilar pneumothorax. 2. Stable left basilar linear opacities consistent with atelectasis or parenchymal scarring. I have personally reviewed the image(s) and the resident's interpretationand agree with the findings, Jing Hudson at 11/10/2019 9:42 AM Thank you for letting us participate in the care of this patient. Forquestions regarding this report, please contact the number below. Electronically signed by: Jing Hudson, [facility]([phone]), at 11/10/2019 9:42 AM Piyush Rojo MD IMG DX ORDERABLE S * Phosphorus (11/10/2019 8:29 AM EDT) Phosphorus 4.4 2.5 - 4.5 mg/dL [facility] Blood specimen (specimen) 11/10/2019 8:29 AM EDT 11/10/2019 8:54 AM EDT Narrative Resulting Agency Comment Spec In Lab Piyush Rojo MD CHEMISTRY ORDERA BLES [facility] [place] [address] * Magnesium (11/10/2019 8:29 AM EDT) Magnesium 0.86 0.69 - 1.07 mmol/L [facility] Blood specimen (specimen) 11/10/2019 8:29 AM EDT 11/10/2019 8:54 AM EDT Narrative Resulting Agency Comment Spec In Lab Piyush Rojo MD CHEMISTRY ORDERA BLES [facility] [place] [address] * (ABNORMAL) Hemogram (11/10/2019 8:29 AM EDT) White Blood Cell 14.1(H) 4.0 - 9.5 x10(3)/ L [facility] Red Blood Cell 6.68(H) 4.58 - 5.54 x10(6)/mc L [facility] Hemoglobin 13.2(L) 13.7 - 16.5 gm/dL [facility] Hematocrit 42.8 40.5 - 48.5 % [facility] Mean Cell Volume 64.1(L) 82.9 - 93.1 [facility] Mean Cell Hemoglobin 19.8(L) 27.5 - 32.1 pg [facility] Mean Cell Hemoglobin Concentration 30.8(L) 32.0 - 35.7 gm/dL [facility] Platelet 485(H) 145 - 357 x10(3)/[facility] LABORATORY RDW Standard Deviation 33.9(L) 36.0 - 45.0 [facility] LABORATORY RDW coefficient of variation 16.2(H) 11.4 - 13.8 % [facility] Mean Platelet Volume 9.6 7.6 - 12.9 [facility] LABORATORY NRBC% auto 0.0 % [facility] NRBC Absolute 0.000 0.000 - 0.000 x10(3)/ L [facility] Blood specimen (specimen) 11/10/2019 8:29 AM EDT 11/10/2019 8:54 AM EDT Narrative Resulting Agency Comment Spec In Lab Piyush Rojo MD HEMATOLOGY ORDER JAYCE [facility] [place] [address] * (ABNORMAL) Basic Metabolic Panel (non-fasting) (11/10/2019 8:29 AM EDT) Glucose 123 65 - 199 mg/dL [facility] Comment:Diabetes: >=200 mg/d L plus symptoms Blood Urea Nitrogen 14 10 - 20 mg/dL [facility] Creatinine 0.75(L) 0.80 - 1.50 mg/dL [facility] Sodium 137 135 - 145 mmol/L [facility] Potassium 4.9 3.5 - 5.0 mmol/L [facility] Comment: Please note: ??Patients with WBC >100,000 may have falsely elevated Potassium levels. ??For accurate Potassium quantification in these patients send serum separator tube (gold top) for subsequent determinations. ??Contact the Clinical Chemistry Laboratory if there are any questions. Chloride 100 98 - 107 mmol/L [facility] Carbon Dioxide 21(L) 22 - 31 mmol/L [facility] Anion Gap 16(H) 5 - 15 mmol/L [facility] Calcium 9.4 8.5 - 10.5 mg/dL [facility] Est Glomerular Filtration Rate 96 >=60 mL/min/1. 73 m?? [facility] Comment: The eGFR was calculated using the CKD-EPI equation. As with all creatinine based estimates of kidney function, eGFR values calculated with the CKD-EPI equation are not accurate in patients with acute kidney failure, extremes of body mass or the acutely ill. [email or web address] eGFR 112 >=60 mL/min/1. 73 m?? [facility] Comment: The eGFR was calculated using the CKD-EPI equation. As with all creatinine based estimates of kidney function, eGFR values calculated with the CKD-EPI equation are not accurate in patients with acute kidney failure, extremes of body mass or the acutely ill. [email or web address] Blood specimen (specimen) 11/10/2019 8:29 AM EDT 11/10/2019 8:54 AM EDT Narrative Resulting Agency Comment Spec In Lab Piyush Rojo MD CHEMISTRY ORDERA BLES Performing Organization Address [facility]/ZIP Co de Phone Number [facility] [place] [place] [address] * Anaerobic Culture (11/10/2019 12:25 AM EDT) Anaerobic Culture No anaerobic organisms isolated [facility] Specimen from abscess (specimen) THORACIC STRUCTURE / Unknown 11/10/2019 12:25 AM EDT 11/10/2019 7:55 AM EDT Comment:RIGHT CHEST WALL ABS CESS. Narrative Resulting Agency Comment Spec In Lab Piyush Rojo MD MICROBIOLOGY - G ENERAL ORDERABLES Performing Organization Address [facility] Co de Phone Number [facility] [place] [address] * (ABNORMAL) Abscess/Wound Aspirate Culture (11/10/2019 12:25 AM EDT) Abscess/Wound Aspirate Culture Moderate Staphylococcus aureus(A) [facility] Gram Stain Moderate Neutrophils seen Few Gram Positive Cocci seen (A) [facility] Organism Staphylococcus aureus(A) [facility] Organism Gram Positive Cocci(A) [facility] Specimen from abscess (specimen) THORACIC STRUCTURE / Unknown 11/10/2019 12:25 AM EDT 11/10/2019 7:55 AM EDT Comment:RIGHT CHEST WALL ABS CESS. Narrative Resulting Agency Comment Spec In Lab Organism Antibiotic Method Susceptibility Staphylococcus aureus Cefazolin VITEK 2 METHOD Sensitive Staphylococcus aureus Ceftriaxone VITEK 2 METHOD Sensitive Staphylococcus aureus Ciprofloxacin VITEK 2 METHOD Sensitive Staphylococcus aureus Clindamycin VITEK 2 METHOD Sensitive Staphylococcus aureus Erythromycin VITEK 2 METHOD Sensitive Staphylococcus aureus Gentamicin VITEK 2 METHOD Sensitive Comment:Gentamicin i s not appropriate for [employer]-therapy. Staphylococcus aureus Levofloxacin VITEK 2 METHOD Sensitive Staphylococcus aureus Oxacillin VITEK 2 METHOD Sensitive Comment: Penicillin resistant, Nafcillin susceptible Staphylococci are resistant to B-lactamase labile Penicillins including Ampicillin and Piperacillin, but susceptible to B-lactamase pramod Penicillins (Nafcillin), B-lactamase inhibitor combinations, first and second generation Cephalosporins including Cefazolin, and to Cefepime and Meropenem. Staphylococcus aureus Trimethoprim/Sulfa VITEK 2 METHO D Sensitive Staphylococcus aureus Tetracycline VITEK 2 METHOD Sensitive Staphylococcus aureus Vancomycin VITEK 2 METHOD Sensitive Piyush Rojo MD [facility] [place] [address] * COVID-19 PCR (11/09/2019 7:57 PM EDT) SARS-CoV-2 RNA (Rapid) Not Detected Not Detected [facility] Comment: This result should be interpreted in combination with the clinical observations, patient history and epidemiological information. For testing of asymptomatic individuals, assay performance characteristics and clinical utility have not been evaluated. Testing for SARS-CoV-2 (Severe acute respiratory syndrome coronavirus 2, formerly known as 2019 novel coronavirus or 2019-nCoV) to aid in the diagnosis of COVID-19 is performed using the Simplexa COVID-19 Direct Assay by [email or web address] as authorized by the FDA issued Emergency Use Authorization (EUA). This assay is intended for In-vitro Diagnostic (IVD) use with nasopharyngeal swabs collected from individuals meeting the CDC criteria for testing. The assay is performed based on the instructions for use and additional guidance provided by the FDA. Testing is performed in the Microbiology Laboratory within the Department of Pathology and Laboratory Medicine at [facility], certified under the Clinical Laboratory Improvement Amendments of 1988 (CLIA), 42 U.S.C. section 263a, to perform high complexity tests. Assay performance has been verified according to clinical laboratory regulatory requirements. Test results are provided above. A result of Not Detected indicates that the viral RNA target is not present but does not preclude SARS-CoV-2 infection. False negative results may occur if a specimen is improperly collected, transported or handled; if amplification inhibitors are present; or if inadequate numbers of viral particles are present in the specimen. A result of Detected suggests a current or recent infection and the patient is presumed to be infected. Positive and negative predictive values for this test are highly dependent on disease prevalence. A result of Invalid indicates the inability to conclusively determine the presence or absence of SARS-CoV-2 RNA in the sample which can be due to a variety of factors. Recollection is recommended in the case of an invalid result. CDC COVID-19 criteria for testing on human specimens and clinical management guidance information are available at the CDC Coronavirus Disease 2019 (COVID-19) webpage under Information for Healthcare Professionals (https://www.cdc.gov/coronavirus/2019-ncov/hcp/index.html). SARS-CoV-2 Source [employer]FF COUNSEL[employer] Swab [facility] Nasopharyngeal swab (specimen) 11/09/2019 7:57 PM EDT 11/09/2019 8:53 PM EDT Comment:Symptoms->Surveillan ce Narrative Resulting Agency Comment Spec In Lab Robert Brambila MD MICROBIOLOGY - GENER AL ORDERABLES [facility] [place] [address] * CT Chest w Contrast (11/09/2019 1:54 PM EDT) Anatomical Region Laterality Modality Chest Computed Tomogra phy Impressions 11/09/2019 2:16 PM EDT 1. ??Rim-enhancing fluid collection along the right lateral chest wall consistent with abscess. 2. ??Small right pleural effusion with adjacent compressive atelectasis. 3. ??Postsurgical changes as described above. Thank you for letting us participate in the care of this patient. For questions regarding this report, please contact the number below. ? Electronically signed by: RAMSES SEALS [facility] ([phone]), at 11/09/2019 2:16 PM Narrative 11/09/2019 2:16 PM EDT EXAMINATION: CT CHEST W CONTRAST CLINICAL HISTORY: Chest wall pain; Thymoma, monitor, R1 or R2 resection, post treatment S/p thymoma resection, purulence from superior aspect of wound, CXR with incompletely visualized R chest wall soft tissue swelling, please eval for evidence of deeper infection TECHNIQUE: 3.75mm thick axial contiguous sections were obtained through the chest via helical acquisition after the intravenous administration of contrast, 16 mL Omnipaque 350. Thin-section reconstructions as well as coronal and sagittal reformatted images were generated. COMPARISON: 09/25/2019 FINDINGS: Pulmonary parenchyma: 2 cm pleural-based nodule containing a focus of air (series 3, image 52). 2 cm thick-walled cyst along the anterolateral right lung apex, likely postsurgical. These findings, given their interval appearance since prior chest CT dated 09/25/2019, are likely postsurgical in nature. There is linear scarring versus atelectasis throughout the right lung There is scarring at both lung bases. Airways: No significant findings. Pleura: Small right pleural effusion with adjacent compressive atelectasis. Linear scarring at the left lung base. Lymph nodes:Prominent axillary lymph nodes bilaterally, stable. Heart, pericardium, and great vessels: No significant findings. Other mediastinal structures: Interval resection of thymoma. Lower neck: No significant findings. Upper abdomen: Stable renal cysts. Body wall soft tissues: There is a rim-enhancing fluid collection along the right lateral chest wall, insinuated between ossicles measuring 9.0 x 3.8 x 7.9 cm. There is associated subcutaneous inflammatory changes. Skeletal structures: No significant findings. Procedure Note Ramses Seals, - 11/09/2019 EXAMINATION: CT CHEST W CONTRAST CLINICAL HISTORY: Chest wall pain; Thymoma, monitor, R1 or R2 resection,post treatment S/p thymoma resection, purulence from superior aspect of wound, CXR with incompletely visualized R chest wall soft tissue swelling, please evalfor evidence of deeper infection TECHNIQUE: 3.75mm thick axial contiguous sections were obtained throughthe chest via helical acquisition after the intravenous administration ofcontrast, 16 mL Omnipaque 350. Thin-section reconstructions as well as coronal and sagittal reformatted images were generated. COMPARISON: 09/25/2019 FINDINGS: Pulmonary parenchyma: 2 cm pleural-based nodule containing a focus ofair (series 3, image 52). 2 cm thick-walled cyst along the anterolateral rightlung apex, likely postsurgical. These findings, given their interval appearancesince prior chest CT dated 09/25/2019, are likely postsurgical in nature. Thereis linear scarring versus atelectasis throughout the right lung There isscarring at both lung bases. Airways: No significant findings. Pleura: Small right pleural effusion with adjacent compressiveatelectasis. Linear scarring at the left lung base. Lymph nodes:Prominent axillary lymph nodes bilaterally, stable. Heart, pericardium, and great vessels: No significant findings. Other mediastinal structures: Interval resection of thymoma. Lower neck: No significant findings. Upper abdomen: Stable renal cysts. Body wall soft tissues: There is a rim-enhancing fluid collection alongthe right lateral chest wall, insinuated between ossicles measuring 9.0 x 3.8x 7.9 cm. There is associated subcutaneous inflammatory changes. Skeletal structures: No significant findings. IMPRESSION 1. Rim-enhancing fluid collection along the right lateral chest wallconsistent with abscess. 2. Small right pleural effusion with adjacent compressive atelectasis. 3. Postsurgical changes as described above. Thank you for letting us participate in the care of this patient. Forquestions regarding this report, please contact the number below. Armen Mckeon MD IMG CT ORDERABLES * Blue Tube HOLD (11/09/2019 10:50 AM EDT) Blue Hold Sample in lab. [facility] Blood specimen (specimen) Venous Draw / Unknown 11/09/2019 10:50 AM EDT 11/09/2019 10:54 AM EDT Emmett Reynolds MD HEMATOLOGY ORDERABLE S Performing Organization Address City/[facility]/ZIP Co de Phone Number [facility] [place] [address] * (ABNORMAL) Differential, Automated (11/09/2019 10:50 AM EDT) Neutrophil % 76.8 % [facility] Neutrophil Absolute 11.22(H) 1.70 - 6.10 x10(3)/mc L [facility] Lymph % 10.9 % [facility] Lymphocytes Abs 1.6 0.9 - 3.2 x10(3)/ L [facility] Monocyte % 9.0 % [facility] Monocyte Abs 1.3(H) 0.3 - 0.9 x10(3)/ L [facility] Eos % 1.2 % [facility] Eosinophils Abs 0.2 0.0 - 0.4 x10(3)/[facility] Basophil % 0.5 % [facility] Baso Absolute 0.1 0.0 - 0.1 x10(3)/ L [facility] Immature Gran % 1.60 % [facility] Comment: Immature granulocytes(IG's)percentage and absolute count will include metamyelocytes, myelocytes, and promyelocytes. Blood smears from CBCs yielding IG's will be scanned manually for concordance. If this scan disagrees with the automated IG or if promyelocytes are noted, a manual differential will be performed. Immature Gran Absolute 0.24(H) 0.00 - 0.04 x10(3)/mc L [facility] Blood specimen (specimen) 11/09/2019 10:50 AM EDT 11/09/2019 10:53 AM EDT Narrative Resulting Agency Comment Spec In Lab Emmett Reynolds MD HEMATOLOGY ORDERABLE S Performing Organization Address City/[facility]/ZIP Co de Phone Number [facility] [place] [address] * (ABNORMAL) Hemogram (11/09/2019 10:50 AM EDT) White Blood Cell 14.6(H) 4.0 - 9.5 x10(3)/mc L [facility] Red Blood Cell 6.10(H) 4.58 - 5.54 x10(6)/mc L [facility] Hemoglobin 12.2(L) 13.7 - 16.5 gm/dL [facility] Hematocrit 39.7(L) 40.5 - 48.5 % [facility] Mean Cell Volume 65.1(L) 82.9 - 93.1 fL [facility] Mean Cell Hemoglobin 20.0(L) 27.5 - 32.1 pg [facility] Mean Cell Hemoglobin Concentration 30.7(L) 32.0 - 35.7 gm/dL [facility] Platelet 459(H) 145 - 357 x10(3)/ L [facility] RDW Standard Deviation 35.4(L) 36.0 - 45.0 [facility] RDW coefficient of variation 16.5(H) 11.4 - 13.8 % [facility] Mean Platelet Volume 9.1 7.6 - 12.9 [facility] NRBC% auto 0.0 % [facility] NRBC Absolute 0.000 0.000 - 0.000 x10(3)/mc L [facility] Blood specimen (specimen) 11/09/2019 10:50 AM EDT 11/09/2019 10:53 AM EDT Narrative Resulting Agency Comment Spec In Lab Emmett Reynolds MD HEMATOLOGY ORDERABLE S [facility] [place] [address] * Basic Metabolic Panel (non-fasting) (11/09/2019 10:50 AM EDT) Glucose 95 65 - 199 mg/dL [facility] Comment:Diabetes: >=200 mg/d L plus symptoms Blood Urea Nitrogen 14 10 - 20 mg/dL [facility] Creatinine 0.80 0.80 - 1.50 mg/dL [facility] Sodium 138 135 - 145 mmol/L [facility] Potassium 4.4 3.5 - 5.0 mmol/L [facility] Comment: Please note: ??Patients with WBC >100,000 may have falsely elevated Potassium levels. ??For accurate Potassium quantification in these patients send serum separator tube (gold top) for subsequent determinations. ??Contact the Clinical Chemistry Laboratory if there are any questions. Chloride 100 98 - 107 mmol/L [facility] Carbon Dioxide 26 22 - 31 mmol/L [facility] Anion Gap 12 5 - 15 mmol/L [facility] Calcium 8.7 8.5 - 10.5 mg/dL [facility] Est Glomerular Filtration Rate 94 >=60 mL/min/1. 73 m?? [facility] Comment: The eGFR was calculated using the CKD-EPI equation. As with all creatinine based estimates of kidney function, eGFR values calculated with the CKD-EPI equation are not accurate in patients with acute kidney failure, extremes of body mass or the acutely ill. [email or web address] eGFR 109 >=60 mL/min/1. 73 m?? [facility] Comment: The eGFR was calculated using the CKD-EPI equation. As with all creatinine based estimates of kidney function, eGFR values calculated with the CKD-EPI equation are not accurate in patients with acute kidney failure, extremes of body mass or the acutely ill. [email or web address] Blood specimen (specimen) 11/09/2019 10:50 AM EDT 11/09/2019 10:53 AM EDT Narrative Resulting Agency Comment Spec In Lab Emmett Reynolds MD CHEMISTRY ORDERABLES [facility] [place] [address] * XR Chest PA & Lateral (Generic) (11/09/2019 10:38 AM EDT) Anatomical Region Laterality Modality Chest N/A Digital Radiogra phy Impressions 11/09/2019 11:31 AM EDT Expected postoperative findings on the right. No acute intrathoracic pathology identified. Incompletely visualized right chest wall soft issue swelling. Thank you for letting us participate in the care of this patient. For questions regarding this report, please contact the number below. ? Narrative 11/09/2019 11:31 AM EDT EXAMINATION: XR CHEST PA AND LATERAL (GENERIC) CLINICAL HISTORY: post thoracotomy pain, redness, drainage TECHNIQUE: PA and lateral views of the chest COMPARISON: 10/26/2019. FINDINGS: Postoperative findings on the right. Mild linear scars bilaterally. Blunting of the bilateral costophrenic angles due to pleural thickening versus trace pleural fluid. Normal size of the heart and normal width of the mediastinum. Degenerative changes of the spine. Procedure Note Jing Ramirez MD - 11/09/2019 EXAMINATION: XR CHEST PA AND LATERAL (GENERIC) CLINICAL HISTORY: post thoracotomy pain, redness, drainage TECHNIQUE: PA and lateral views of the chest COMPARISON: 10/26/2019. FINDINGS: Postoperative findings on the right. Mild linear scars bilaterally.Blunting of the bilateral costophrenic angles due to pleural thickening versus tracepleural fluid. Normal size of the heart and normal width of the mediastinum.Degenerative changes of the spine. IMPRESSION Expected postoperative findings on the right. No acute intrathoracic pathology identified. Incompletely visualized right chest wall soft issue swelling. Thank you for letting us participate in the care of this patient. Forquestions regarding this report, please contact the number below. Emmett Reynolds MD IMG DX ORDERABLES documented in this encounter Visit Diagnoses Diagnosis Cellulitis of back except buttock Cellulitis and abscess of trunk Chest wall abscess Cellulitis and abscess of trunk Chest wall abscess Cellulitis and abscess of trunk documented in this encounter Admitting Diagnoses Diagnosis Chest wall abscess Cellulitis and abscess of trunk documented in this encounter Administered Medications Inactive Administered Medications - up to 3 most recent administrations Medication Order MAR Action Action Date Dose Rate Site acetaminophen (OFIRMEV) injection 1,000 mg 1,000 mg, Intravenous, at 400 mL/hr, Administer over 15 Minutes, ONCE, 1 dose, On 11/09/19 at 1330, Maximum dose of acetaminophen is 4000 mg from all sources in 24 hours., Routine, Is ketorolac (Toradol) IV contraindicated? No, Can this patient tolerate oral medications or suppositories? No Given 11/09/2019 1:30 PM EDT 1,000 mg 400 mL/hr acetaminophen (Tylenol) tablet 1,000 mg 1,000 mg, Oral, EVERY 6 HOURS, First dose on 11/09/19 at 2000, Until Discontinued, Do not exceed 4,000 mg in 24 hours, Recovery (Recovery-Hospital Unit), Routine Given 11/10/2019 1:19 AM EDT 1,000 mg Given 11/09/2019 9:33 PM EDT 1,000 mg acetaminophen (Tylenol) tablet 1,000 mg 1,000 mg, Oral, EVERY 6 HOURS PRN, Starting on Tanna 11/13/19 at 0545, Until Sun11/14/19 at 1713, Pain, Please encourage him to take this medication every 6 hours, but do not wake him up for administration Maximum dose of acetaminophen is 4000 mg from all sources in 24 hours., Routine Given 11/13/2019 7:00 PM EDT 1,000 mg Given 11/13/2019 1:33 PM EDT 1,000 mg acetaminophen (Tylenol) tablet 650 mg 650 mg, Oral, EVERY 6 HOURS SCHEDULED, First dose on 11/10/19 at 0145, Until Discontinued, Maximum dose of acetaminophen is 4000 mg from all sources in 24 hours., Routine Given 11/12/2019 11:17 PM EDT 650 mg Given 11/12/2019 5:35 PM EDT 650 mg Given 11/12/2019 11:48 AM EDT 650 mg ceFAZolin (Ancef) 2g in dextrose 5% 100 mL 2 g, Intravenous, [employer] TO O.R., 1 dose, On Sun11/09/19 at 1635, Administer over 30 Minutes, Indication for (Active or Suspected): Prophylaxis Given 11/09/2019 6:40 PM EDT 2 g 200 mL/hr docusate sodium (Colace) capsule 100 mg 100 mg, Oral, 2 TIMES DAILY, First dose on Sun11/11/19 at 2100, Until Discontinued, Routine Given 11/13/2019 8:42 PM EDT 100 mg Given 11/13/2019 9:48 AM EDT 100 mg Given 11/12/2019 8:42 PM EDT 100 mg enoxaparin (LOVENOX) injection 40 mg 40 mg, Subcutaneous, NIGHTLY, First dose on Sun11/13/19 at 2100, Until Discontinued, Routine Given 11/13/2019 8:42 PM EDT 40 mg heparin (Porcine) subcutaneous injection 5,000 Units 5,000 Units, Subcutaneous, EVERY 8 HOURS SCHEDULED, First dose on Sun11/10/19 at 0745, Until Discontinued, Routine Given 11/12/2019 10:43 PM EDT 5,000 Units Abdominal Tissue Given 11/12/2019 3:28 PM EDT 5,000 Units Given 11/12/2019 6:12 AM EDT 5,000 Units ibuprofen (Advil;Motrin) tablet 600 mg 600 mg, Oral, EVERY 6 HOURS PRN, Starting on Sun11/13/19 at 0540, Until Sun11/14/19 at 1713, Pain, Please encourage him to take this medication every 6 hours, but do not wake him up for administration Administer orally with milk or food to minimize GI irritation. Maximum dose of 3200 mg from all sources in 24 hours, Routine Given 11/14/2019 2:12 AM EDT 600 mg Given 11/13/2019 3:52 PM EDT 600 mg Given 11/13/2019 9:48 AM EDT 600 mg iohexoL (OMNIPAQUE) 350 mg/mL solution 0-200 mL 0-200 mL, Intravenous, ONCE PRN, 1 dose, Starting on Sun11/09/19 at 1349, Until Sun11/09/19 at 1349, Per Protocol, Warning Vesicant/Irritant Medication , Radiology Contrast, Routine Given 11/09/2019 1:49 PM EDT 65 mLs ketorolac (TORADOL) injection 15 mg 15 mg, Intravenous, EVERY 8 HOURS SCHEDULED, 6 doses, First dose on Sun11/09/19 at 2200, Last dose on Sun11/11/19 at 1400, Recovery (Recovery-Hospital Unit), Routine Given 11/09/2019 9:34 PM EDT 15 mg ketorolac (TORADOL) injection 15 mg 15 mg, Intravenous, EVERY 6 HOURS SCHEDULED, 12 doses, First dose on Sun11/10/19 at 0145, Last dose on Sun11/12/19 at 1800, Routine Given 11/12/2019 5:34 PM EDT 15 mg Given 11/12/2019 11:48 AM EDT 15 mg Given 11/12/2019 6:12 AM EDT 15 mg ketorolac (TORADOL) injection 15 mg 15 mg, Intravenous, ONCE, 1 dose, On Tanna 11/13/19 at 0230, Routine Given 11/13/2019 1:54 AM EDT 15 mg lidocaine (XYLOCAINE) 10 mg/mL (1 %) injection 3 mg 3 mg (0.3 mL), Subcutaneous, ONCE PRN, 1 dose, Starting on Sun11/09/19 at 1940, Until Sun11/14/19 at 1713, for discomfort with PIV insertion, Recovery (Recovery-Hospital Unit), Routine ondansetron (ZOFRAN) injection 4 mg 4 mg, Intravenous, EVERY 8 HOURS PRN, Starting on Sun11/09/19 at 1541, Until Sun11/14/19 at 1713, Nausea oxyCODONE (Roxicodone) tablet 10 mg 10 mg, Oral, ONCE, 1 dose, On Sun11/09/19 at 1145, Routine Given 11/09/2019 11:53 AM EDT 10 mg oxyCODONE (Roxicodone) tablet 5 mg 5 mg, Oral, EVERY 4 HOURS PRN, Starting on Sun11/10/19 at 0121, Until Sun11/14/19 at 1713, Pain, for pain 6-10 not relieved with tylenol and toradol, Routine Given 11/14/2019 10:53 AM EDT 5 mg Given 11/10/2019 9:43 PM EDT 5 mg piperacillin-tazobactam (ZOSYN) 3.375 g vial attach to sodium chloride 0.9% 50 mL Mini-Bag Plus 3.375 g, Intravenous, EVERY 8 HOURS, First dose on Sun11/09/19 at 1451, Until Discontinued, Administer over 4 Hours, Warning Vesicant/Irritant Medication Do not administer or Y-site with lactated ringers., Indication for (Active or Suspected): Skin/Skin Structure New Bag 11/14/2019 6:10 AM EDT 3.375 g 12.5 mL/hr New Bag 11/13/2019 11:19 PM EDT 3.375 g 12.5 mL/hr New Bag 11/13/2019 3:48 PM EDT 3.375 g 12.5 mL/hr polyethylene glycoL (Miralax) packet 17 g 17 g, Oral, DAILY, First dose on Sun11/12/19 at 0900, Until Discontinued, Routine senna (Senokot) tablet 8.6 mg 8.6 mg, Oral, 2 TIMES DAILY, First dose on Sun11/11/19 at 1530, Until Discontinued, Routine Given 11/13/2019 8:42 PM EDT 8.6 mg Given 11/13/2019 9:48 AM EDT 8.6 mg Given 11/12/2019 8:42 PM EDT 8.6 mg sodium chloride 0.9 % (flush) flush 5 mL 5 mL, Intravenous, 2 TIMES DAILY, First dose on Sun11/09/19 at 2100, Until Discontinued, Recovery (Recovery-Hospital Unit), Routine Given 11/13/2019 8:42 PM EDT 5 mLs Given 11/13/2019 9:49 AM EDT 5 mLs Given 11/12/2019 8:43 PM EDT 5 mLs sodium chloride 0.9 % (flush) flush 5-20 mL 5-20 mL, Intravenous, EVERY 1 MIN PRN, Starting on Sun11/09/19 at 1940, Until Sun11/14/19 at 1713, flush, Flush pertains to all indwelling lines. Flush per protocol found in the job aid using the link provided on this medication record., Recovery (Recovery-Hospital Unit), Routine vancomycin 1 g in 0.9 % sodium chloride 200 mL 1 g, Intravenous, at 200 mL/hr, EVERY 12 HOURS, First dose on Sun11/09/19 at 1504, Until Discontinued, Maximum infusion rate is 1 gram/hour. If flushing of the face, neck, upper body, arms, and/or back occurs decrease infusion rate by 50% to reduce the severity of symptoms. This medication may have an associated drug lab level. Please see MAR for scheduled level. Warning Vesicant/Irritant Medication , STAT New Bag 11/12/2019 3:22 PM EDT 1 g 200 mL/hr New Bag 11/12/2019 4:02 AM EDT 1 g 200 mL/hr New Bag 11/11/2019 4:39 PM EDT 1 g 200 mL/hr documented in this encounter Active and Recently Administered Medications Times are shown in EDT. Scheduled Medication Order 11/12/2019 11/13/2019 11/14/2019 acetaminophen (Tylenol) tablet 650 mg (CANCELED) 650 mg, Oral, EVERY 6 HOURS SCHEDULED, First dose on Sun11/10/19 at 0145, Until Discontinued, Maximum dose of acetaminophen is 4000 mg from all sources in 24 hours., Routine 0032 (Given - Provider: Regina Hutson RN)0611 (Given - Provider: Regina Hutson RN)1148 (Given - Provider: Sarah Beth Briceño RN)1735 (Given - Provider: Sarah Beth Briceño RN)2317 (Given - Provider: Kaye Goldberg, EVER) docusate sodium (Colace) capsule 100 mg 100 mg, Oral, 2 TIMES DAILY, First dose on Sun11/11/19 at 2100, Until Discontinued, Routine 0936 (Given - Provider: Sarah Beth Briceño RN)204 (Given - Provider: Kaye Goldberg, EVER) 0948 (Given - Provider: Becca Wolfe RN)204 (Given - Provider: Amaris Aguirre RN) 0900 (Not Given - Provider: Shannan Latif RN - Reason: Patient/family refused) enoxaparin (LOVENOX) injection 40 mg 40 mg, Subcutaneous, NIGHTLY, First dose on Tanna 11/13/19 at 2100, Until Discontinued, Routine 2041 (Given - Provider: Amaris Aguirre RN) heparin (Porcine) subcutaneous injection 5,000 Units (CANCELED) 5,000 Units, Subcutaneous, EVERY 8 HOURS SCHEDULED, First dose on Sun11/10/19 at 0745, Until Discontinued, Routine 0612 (Given - Provider: Regina Hutson RN)1528 (Given - Provider: Sarah Beth Briceño RN)2243 (Given - Provider: Kaye Goldberg, EVER) ketorolac (TORADOL) injection 15 mg (COMPLETED) 15 mg, Intravenous, EVERY 6 HOURS SCHEDULED, 12 doses, First dose on Sun11/10/19 at 0145, Last dose on Sun11/12/19 at 1800, Routine 0032 (Given - Provider: Regina Hutson RN)0612 (Given - Provider: Regina Hutson RN)1148 (Given - Provider: Sarah Beth Briceño RN)1734 (Given - Provider: Sarah Beth Briceño RN) ketorolac (TORADOL) injection 15 mg (COMPLETED) 15 mg, Intravenous, ONCE, 1 dose, On Tanna 11/13/19 at 0230, Routine 0154 (Given - Provider: Kaye Goldberg, EVER) piperacillin-tazobactam (ZOSYN) 3.375 g vial attach to sodium chloride 0.9% 50 mL Mini-Bag Plus 3.375 g, Intravenous, EVERY 8 HOURS, First dose on Sun11/09/19 at 1451, Until Discontinued, Administer over 4 Hours, Warning Vesicant/Irritant Medication Do not administer or Y-site with lactated ringers., Indication for (Active or Suspected): Skin/Skin Structure 0233 (Stopped - Provider: Regina Hutson RN)0617 (New Bag - Provider: Regina Hutson RN)1017 (Stopped - Provider: Sarah Beth Briceño RN)1513 (New Bag - Provider: Sarah Beth Briceño RN)1913 (Stopped - Provider: Kaye Goldberg RN)2248 (New Bag - Provider: Kaye Goldberg, EVER) 0248 (Stopped - Provider: Kaye Goldberg, RN)0741 (New Bag - Provider: Kaye Goldberg, EVER)1141 (Stopped - Provider: Becca Wolfe RN)1548 (New Bag - Provider: Becca Wolfe RN)1948 (Stopped - Provider: Amaris Aguirre, RN)2319 (New Bag - Provider: Amaris Aguirre, RN) 0319 (Stopped - Provider: Amaris Aguirre, RN)0610 (New Bag - Provider: Amaris Aguirre, EVER)1010 (Stopped - Provider: Shannan Latif, EVER)1451 (Not Given - Provider: Shannan Latif RN - Reason: See comment - Comment: no IV patient being discharged) polyethylene glycoL (Miralax) packet 17 g 17 g, Oral, DAILY, First dose on Sun11/12/19 at 0900, Until Discontinued, Routine 09 (Not Given - Provider: Sarah Beth Briceño RN - Reason: Patient/family refused) 09 (Not Given - Provider: Becca Wolfe RN - Reason: Patient/family refused) 0900 (Not Given - Provider: Shannan Latif RN - Reason: Patient/family refused) senna (Senokot) tablet 8.6 mg 8.6 mg, Oral, 2 TIMES DAILY, First dose on Sun11/11/19 at 1530, Until Discontinued, Routine 0936 (Given - Provider: Sarah Beth Briceño RN)2041 (Given - Provider: Kaye Goldberg, EVER) 0948 (Given - Provider: Becca Wolfe, EVER)204 (Given - Provider: Amaris Aguirre, EVER) 0900 (Not Given - Provider: Shannan Latif RN - Reason: Patient/family refused) sodium chloride 0.9 % (flush) flush 5 mL 5 mL, Intravenous, 2 TIMES DAILY, First dose on Sun11/09/19 at 2100, Until Discontinued, Recovery (Recovery-Hospital Unit), Routine 0938 (Given - Provider: Sarah Beth Briceño RN)204 (Given - Provider: Kaye GoldbergEVER) 0949 (Given - Provider: Becca Wolfe RN)2042 (Given - Provider: Amaris Aguirre RN) 0900 (Not Given - Provider: Shannan Latif RN - Reason: See comment - Comment: infusing) vancomycin 1 g in 0.9 % sodium chloride 200 mL (CANCELED) 1 g, Intravenous, at 200 mL/hr, EVERY 12 HOURS, First dose on Sun11/09/19 at 1504, Until Discontinued, Maximum infusion rate is 1 gram/hour. If flushing of the face, neck, upper body, arms, and/or back occurs decrease infusion rate by 50% to reduce the severity of symptoms. This medication may have an associated drug lab level. Please see MAR for scheduled level. Warning Vesicant/Irritant Medication , STAT 0402 (New Bag - Provider: Regina Hutson RN)0502 (Stopped - Provider: Regina Hutson RN)1522 (New Bag - Provider: Sarah Beth Briceño RN)1622 (Stopped - Provider: Flakita Milan RN) PRN Medication Order 11/12/2019 11/13/2019 11/14/2019 acetaminophen (Tylenol) tablet 1,000 mg 1,000 mg, Oral, EVERY 6 HOURS PRN, Starting on Tanna 11/13/19 at 0545, Until Sun11/14/19 at 1713, Pain, Please encourage him to take this medication every 6 hours, but do not wake him up for administration Maximum dose of acetaminophen is 4000 mg from all sources in 24 hours., Routine 1333 (Given - Provider: Becca Wolfe RN)1900 (Given - Provider: Becca Wolfe RN) ibuprofen (Advil;Motrin) tablet 600 mg 600 mg, Oral, EVERY 6 HOURS PRN, Starting on Tanna 11/13/19 at 0540, Until Sun11/14/19 at 1713, Pain, Please encourage him to take this medication every 6 hours, but do not wake him up for administration Administer orally with milk or food to minimize GI irritation. Maximum dose of 3200 mg from all sources in 24 hours, Routine 0948 (Given - Provider: Becca Wolfe RN)1552 (Given - Provider: Becca Wolfe RN) 0212 (Given - Provider: Amaris Aguirre RN) lidocaine (XYLOCAINE) 10 mg/mL (1 %) injection 3 mg 3 mg (0.3 mL), Subcutaneous, ONCE PRN, 1 dose, Starting on 11/09/19 at 1940, Until Sun11/14/19 at 1713, for discomfort with PIV insertion, Recovery (Recovery-Hospital Unit), Routine ondansetron (ZOFRAN) injection 4 mg 4 mg, Intravenous, EVERY 8 HOURS PRN, Starting on 11/09/19 at 1541, Until Sun11/14/19 at 1713, Nausea oxyCODONE (Roxicodone) tablet 5 mg 5 mg, Oral, EVERY 4 HOURS PRN, Starting on 11/10/19 at 0121, Until Sun11/14/19 at 1713, Pain, for pain 6-10 not relieved with tylenol and toradol, Routine 1053 (Given - Provid er: Shannan Latif RN) sodium chloride 0.9 % (flush) flush 5-20 mL 5-20 mL, Intravenous, EVERY 1 MIN PRN, Starting on 11/09/19 at 1940, Until Sun11/14/19 at 1713, flush, Flush pertains to all indwelling lines. Flush per protocol found in the job aid using the link provided on this medication record., Recovery (Recovery-Hospital Unit), Routine documented in this encounter Care Teams Monorail Helper Relationship Specialty Start Date End Date Christiana Moore APRN [address] [place] [address] PCP - General Family Medicine 09/26/19 documented as of this encounter
--- OUTSIDE RECORDS SUMMARY | 2023-11-12 02:16 | XMS_ITS | Encounter Summary ---
Author Organization [facility] [place] [address] Care Team Providers Care Medicine Teacher Name Role Phone Christiana Moore APRN Primary Care Provider [phone] Reason for Visit * Auth/Cert Specialty Diagnoses / Procedures Referred By Contac t Referred To Contact Diagnoses Chest wall abscess Cellulitis of back except buttock Procedures ER IPI Admit Referral ID Status Reason Start Date Expiration Date Visits Re quested Visits Authorized [id number] 1 1 Encounter Details Date Type Department Care Team (Late st Contact Info) Description 11/09/2019 11:57 PM EDT Anesthesia [place] [id number] Brown Crump MD [facility] [place] [address] Marcio Pineda MD [facility] [place] [address] Anesthesia Record Procedure Summary Procedure Name Responsible Anesthesiologist Anesthesia Start Time Anesthesia Stop Time INCISION & DRAINAGE HEMATOMA, SEROMA OR FLD. COLLECTION, CHEST (WRVU 1.58) (Right: Chest) Brown Crump MD 11/09/19 2357 11/10/19 0100 Events Date Time Event Comment 11/09/2019 1802 2357 AN Verify 2357 Start 2357 An Start Data 11/10/2019 0002 An Induction 0003 An Intubation 0003 Anesthesia Ready 0021 Procedure Start 0042 Procedure Stop 0051 Extubation/LMA Out 0051 an stop data 0055 Recovery or ICU Handoff Romi ent care was transferred to the destination unit staff after review of the patient's medical history, current anesthetic/surgical status and plan, according to the Provider Handoff Checklist. 0100 Stop Meds Name Total fentaNYL 100 mcg IV Lidocaine 80 mg Propofol 220 mg Ondansetron 8 mg Dexamethasone 4 mg Succinylcholine 100 mg piperacillin-tazobactam (ZOS YN) 3.375 g vial attach to sodium chloride 0.9% 50 mL Mini-Bag Plus 3.375 g heparin (Porcine) subcutaneous injection 5,000 Units 5,000 Units Lactated Ringers 600 mL * Agents Name O2 Air N2O Sevoflurane (et) * Blood No blood administrations on file. Lines, Drains, and Airways Type Details Placement Removal (RETIRED) Peripheral IV Line - Single Lumen 10/24/19; 1241; metacarpal vein (top of hand), right; [id number] catheter system; 20 gauge; Cammie Machado RN; distraction, intradermal injection, tolerated well, appears comfortable; 11/10/19; 0031 10/24/19 1241 by Cammie Machado RN 11/10/19 0031 by Fatou Ignacio RN Incision 10/24/19; 1445; ches t; transverse; primapore 113/4 inch by kristina Barrios; 11/10/19; 0031 10/24/19 1445 by Hamida Nath RN 11/10/19 0031 by Fatou Ignacio, RN (RETIRED) Peripheral IV Line - Single Lumen 11/09/19; 1047; median cubital vein (antecubital fossa), right; 20 gauge; 11/12/19; 1840 11/09/19 1047 by Inderjit Lamb RN 11/12/19 1840 by Flakita Castro RN (RETIRED) Peripheral IV Line - Single Lumen 11/09/19; 1604; median cubital vein (antecubital fossa), left; 20 gauge; no longer indicated; 11/14/19; 1401 11/09/19 1604 by Inderjit Lamb RN 11/14/19 1401 by Shannan Latif RN ETT Mask Ventilation: Ea sy (1); ETT Type: Cuffed, Oral; ETT Size: 8 mm; Indirect: Video; Notes: Asleep, Pre-O2, RSI; Attempts: 1; Laryngoscopy Grade: 1; ETT Placement Verified By: Auscultation, Capnometry, Visual; Secured at Teeth: 23 cm; Inserted by: Chidi Porter MD; Removal Date: 11/10/19; Removal Time: 5011/10/19 0005 by Chidi Porter MD 11/10/19 0051 by Chidi Porter MD Incision 11/10/19; 0017; ches t; 12/05/21 (LDA cleanup utility RA#[id number]); 1715 (LDA cleanup utility RA#[id number]) 11/10/19 0017 by Janessa Ramirez RN 12/05/21 1715 by Claudio Gonzalez L Chest Tube 11/10/19; 0032; Righ t; 28 malaysian; 11/12/19; 0930 11/10/19 0032 by Janessa Ramirez RN 11/12/19 0930 by Flakita Castro RN Drain/Device Site 11/10/19; 0038; Righ t; chest; 11/12/19; 0930 11/10/19 0038 by Janessa Ramirez RN 11/12/19 0930 by Flakita Castro RN documented in this encounter Social History [...] OR Notes * Anesthesia Postprocedure Evaluation - Chidi Porter - 11/10/2019 1:03 AM EDT Department of Anesthesiology Post-procedure Note Patient: Tree Lantigua Procedure Summary Date: 11/09/19 Room / Location: [facility] OR [address] [place] [address] MAIN OR Anesthesia Start: 2356 Anesthesia Stop: 11/10/19 0100 Procedure: INCISION & DRAINAGE HEMATOMA, SEROMA OR FLD. COLLECTION, CHEST (WRVU 1.58) (Right Chest) Diagnosis: (right chest abscess, pleural effusion) Surgeon: Piyush Hobbs MD Responsible Provider: Brown Crump MD Anesthesia Type: general ASA Status: 3 - Emergent All Anesthesia Providers: Anesthesiologist: Brown Crump MD Grease Monkey: Chidi Porter MD Vitals Value Taken Time BP 124/75 11/10/19 0100 Temp Pulse 104 11/10/19 0102 Resp 20 11/10/19 0102 SpO2 96 % 11/10/19 010 Pain Level Vitals shown include unvalidated device data. Patient Location: PACU/[facility] Level of Consciousness: Awake and Alert Pain Management: Satisfactory Analgesia PONV: None Cardiovascular Status: At Baseline Respiratory Status: At Baseline Postoperative Fluid Status: Intravascular EUvolemia Possible Anesthetic Complications: NONE apparent at time of evaluation Final Primary Anesthesia Type: General (The anesthetic type performed was the same as planned.) Comments: No complaints, feeling well. No apparent anesthesia complications. Chidi Porter MD * Anesthesia Preprocedure Evaluation - Brown Crump MD - 11/09/2019 6:00 PM EDT Pre-Anesthesia Evaluation for: Tree Lantigua a 64 y.o. male. Procedure(s): INCISION & DRAINAGE HEMATOMA, SEROMA OR FLD. COLLECTION, CHEST (WRVU 1.58) Patient Active Problem List Diagnosis ??? Mediastinal mass History reviewed. No pertinent past medical history. Past Surgical History: Procedure Laterality Date ??? PRO BRONCHOSCOPY, DIAGNOSTIC N/A 10/24/2019 BRONCHOSCOPY, DIAGNOSTIC (WRVU 2.78) performed by Quentin Carlin MD at [facility] MAIN OR ? ? PRO INJECTION ANES AGENT &/ STEROID INTERCOSTAL NERVE EA ADDL LEVEL Right 10/24/2019 NERVE BLOCK, INTERCOSTAL NERVE, MULTIPLE (WRVU 1.68) performed by Quentin Carlin MD at [facility] MAIN OR ??? PRO THORACOSCOPY WITH BIOPSY OF PLEURA Right 10/24/2019 THORACOSCOPY; WITH BIOPSY(IES) OF PLEURA (WRVU 4.58) performed by Quentin Carlin MD at [facility] MAIN OR ??? PRO THORACOTOMY WITH THERAPEUTIC WEDGE RESECTION EA ADDL Right 10/24/2019 @THORACOTOMY; W/THERAPEUTIC WEDGE RESECTION, EA ADD'L RESC, IPSILATERAL (WRVU 3) performed by Quentin Carlin MD at [facility] MAIN OR ??? PRO THORACOTOMY WITH THERAPEUTIC WEDGE RESECTION INITIAL Right 10/24/2019 @THORACOTOMY; W/ THERAPEUTIC WEDGE RESECTION , INITIAL (WRVU 15.75) performed by Quentin Carlin MD at [facility] MAIN OR ??? PRO THYMECTOMY, RADICAL MEDIAST DISSSEC Right 10/24/2019 @THYMECTOMY W/ RAD. MEDIASTINAL DISSECTION (WRVU 23.48) performed by Quentin Carlin MD at [facility] MAIN OR Social History Tobacco Use ??? Smoking [...] SP02 Pulse Resp BP SpO2 O2 Device 11/09/19 1031 36.8 ??C (98.2 ??F) -- 95 16 125/84 98 % RA 11/09/19 1558 36.8 ??C (98.2 ??F) -- 90 -- 112/77 98 % RA 11/09/19 1600 -- (!) 105 bpm -- -- 112/77 98 % -- Body mass index is 23.06 kg/m??. Weight: 77.1 kg (170 lb) Airway Assessment: Mallampati: II TM distance: >3 FB Neck ROM: full Previously Grade 4 with MAC4. EZ viz with CMAC Cardiovascular Assessment: cardiovascular exam normal Pulmonary Assessment: pulmonary exam normal Dental Assessment: Misc Assessment: IV access: Peripheral line Anesthesia Plan: ASA 3 emergent general, with a(n) intravenous induction S/p anterior mediastinal mass resection recently, now with right chest abscess/pleural effusion. Region - Other Informed Consent: Anesthetic plan and risks discussed with patient. Plan discussed with resident and attending. PAT Clinic Note documented in this encounter Plan of Treatment Not on file documented as of this encounter Visit Diagnoses Not on filedocumented in this encounter Administered Medications Inactive Administered Medications - up to 3 most recent administrations Medication Order MAR Action Action Date Dose Rate Site dexamethasone (Decadron) injection PRN, Starting on Sun11/10/19 at 0004, Until Sun11/10/19 at 0103, Anesthesia Intra-op, Routine Given 11/10/2019 12:04 AM EDT 4 mg fentaNYL 50 mcg/mL multi-dose injection PRN, Starting on Sun11/10/19 at 0005, Until Sun11/10/19 at 0103, Anesthesia Intra-op, Routine Given 11/10/2019 12:12 AM EDT 50 mcg Given 11/10/2019 12:05 AM EDT 50 mcg heparin (Porcine) subcutaneous injection 5,000 Units 5,000 Units, Subcutaneous, ROD FINISHER TO O.R., 1 dose, On Sun11/09/19 at 1635, Routine Given 11/10/2019 12:13 AM EDT 5,000 Units lactated ringers infusion CONTINUOUS PRN, Starting on Sun11/09/19 at 2357, Until Sun11/10/19 at 0103, Anesthesia Intra-op New Bag 11/09/2019 11:57 PM EDT lidocaine (PF) (XYLOCAINE) 100 mg/5 mL (2 %) injection PRN, Starting on Sun11/10/19 at 0002, Until Sun11/10/19 at 0103, Anesthesia Intra-op, Routine Given 11/10/2019 12:02 AM EDT 80 mg ondansetron (ZOFRAN) injection PRN, Starting on Sun11/10/19 at 0004, Until Sun11/10/19 at 0103, Anesthesia Intra-op, Routine Given 11/10/2019 12:04 AM EDT 8 mg piperacillin-tazobactam (ZOSYN) 3.375 g vial attach [...] 3:48 PM EDT 3.375 g 12.5 mL/hr propofol (DIPRIVAN) 10 mg/mL bolus injection (Anesthesia) PRN, Starting on Sun11/10/19 at 0002, Until Sun11/10/19 at 0103, Anesthesia Intra-op Given 11/10/2019 12:41 AM EDT 30 mg Given 11/10/2019 12:25 AM EDT 40 mg Given 11/10/2019 12:02 AM EDT 150 mg succinylcholine chloride (Quelicin) injection PRN, Starting on Sun11/10/19 at 0002, Until Sun11/10/19 at 0103, Anesthesia Intra-op, Routine Given 11/10/2019 12:02 AM EDT 100 mg documented in this encounter Care Teams Medicine Teacher Relationship Specialty Start Date End Date Christiana Moore APRN [address] [place] [address] PCP - General Family Medicine 09/26/19 documented as of this encounter
--- OUTSIDE RECORDS SUMMARY | 2023-11-12 02:16 | XMS_ITS | Encounter Summary ---
[place] [address] Care Team Providers Care Photo Lab Technician Name Role Phone Christiana Moore APRN Primary Care Provider [phone] Reason for Visit * Reason Onset Date Comments Other 11/17/2019 post op call Encounter Details Date Type Department Care Team (Late st Contact Info) Description 11/17/2019 Telephone [place] [phone] Monica Price, RN Other (post op call) Social History Tobacco Use Types Packs/Day Years [...] Miscellaneous Notes * Telephone Encounter - Monica Price, RN - 11/17/2019 1:11 PM EDTSummary: post op call Thoracic Surgery Nursing Post-operative Follow up: Hx: s/p I & D of right thoracotomy incision, wound vac in place since 11/10/19 discharged on 11/14/19 s/p R VATS for resection of anterior mediastinal mass and 5x wedge biopsies of the R lung on 10/24/2019s/p R VATS for resection of anterior mediastinal mass and 5x wedge biopsies of the R lung on 10/24/2019. POD#: 7 General statement: I am doing ok, just anxious because I have had issues with this wound vac device getting blocked. [facility] has been responsive and out to house multiple times for wound vac evaluation. Dressing was changed today at home by [facility] and Mr. Lantigua is wondering if the device is working. I see some liquid in the tubing but it is not clearing from the tubing. No alarms are being set off at this time which is a positive thing. Also the [facility]NA RN stated that the wound is getting smaller. Pain: taking extra strength tylenol 1000 mg and ibuprofen 600 mg every 6 hours. Oxycodone prior to wound vac change although he noted no pain with today's change, and oxycodone at HS. GI: appetite: good Hydration: good Voiding: without any difficulty BM: without any difficulty - LBM today Respiratory: using IS as directed SOB: denies Coughing with or without sputum: denies Activity: up and about without any difficulty Integumentary: Incisions without any redness, swelling, drainage, fevers, chills, sweats, site hot to touch Wound VAC: running at 125 mmHg. SIMPRO question regarding a call from the damage prevention coordinator. Plan: RTC on 11/25/19 CXR 11/25/19 Dayne Arteaga APRN for wound vac change. Tree Hoffmann Grzegorz is aware of appointments and know to call with any questions or concerns. documented in this encounter Plan of Treatment Not on file documented as of this encounter Visit Diagnoses Not on filedocumented in this encounter Care Teams Photo Lab Technician Relationship Specialty Start Date End Date Christiana Moore APRN [address] [place] [address] PCP - General Family Medicine 09/26/19 documented as of this encounter
--- OUTSIDE RECORDS SUMMARY | 2023-11-12 02:16 | XMS_ITS | Encounter Summary ---
[place] [address] Care Team Providers Care Excavating Machine Operator Name Role Phone Christiana Moore APRN Primary Care Provider [phone] Reason for Visit * Reason Onset Date Comments Other 12/04/2019 wound vac Encounter Details Date Type Department Care Team (Late st Contact Info) Description 12/04/2019 Telephone [place] [phone] Monica Price, RN Other (wound vac) Social History Tobacco Use Types Packs/Day Years [...] Telephone Encounter - Monica Price RN - 12/04/2019 8:03 AM EDTSummary: Wound Vac machine TC to [facility] wound vac company Spoke with Francisco, Mr. Lantigua is having a lot of technical issues with his wound vac machine. Discussed changing machine out. Francisco will call Mr. Lantigua to set up a delivery time for this afternoon. Was grateful for the information TC to Mr. Lantigua Hx: s/p I & D of right thoracotomy incision, wound vac in place since 11/10/19 discharged on 11/14/19 s/p R VATS for resection of anterior mediastinal mass and 5x wedge biopsies of the R lung on 10/24/2019s/p R VATS for resection of anterior mediastinal mass and 5x wedge biopsies of the R lung on 10/24/2019 Mr. Lantigua has continued to have issues with the wound vac machine and cartridges. He is aware that [facility] was contacted and that he will be receiving a phone call from [facility] this morning to replace his device. HE was grateful for the follow up call. He stated I just keep getting the error messages and put a new cartridge in or shut the machine off and turn it back on again. It is getting frustrating and explained that a new machine may do the trick. HE also stated that he called [facility] to report the issues with the machine and was never called back. HE knows to call with any questions or concerns. TC back from Mr. Grzegorz Lantigua is stating that the original incision toward the bottom has increased pain and swelling noted. Photo was sent via [employer] message Discussed with Dr. Carlin. No swelling noted, in the photo. Mr. Lantigua then explained that the spot he is referring to, is not painful to the touch. I wonder if it is deferred pain from the wound vac dressing. I am going to watch and if anything gets worse, I will call. Denies any fevers, chills, sweats. He knows to call with any questions or concerns documented in this encounter Plan of Treatment Not on file documented as of this encounter Visit Diagnoses Not on filedocumented in this encounter Care Teams Excavating Machine Operator Relationship Specialty Start Date End Date Christiana Moore APRN [address] [place] [address] PCP - General Family Medicine 09/26/19 documented as of this encounter
--- OUTSIDE RECORDS SUMMARY | 2023-11-12 02:16 | XMS_ITS | Encounter Summary ---
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 Name Role Phone Christiana Moore RYAN Primary Care Provider [phone] Reason for Visit * Reason Comments Wound Check * Auth/Cert Specialty Diagnoses / Procedures Referred By Contac t Referred To Contact Diagnoses Chest wall abscess Open wound of right chest wall with complication wound vac filled with puss Procedures EMERGENCY OBSVO Referral ID Status Reason Start Date Expiration Date Visits Re quested Visits Authorized [id number] 1 1 Encounter Details Date Type Department Care Team (Late st Contact Info) Description 12/09/2019 10:48 AM EDT - 12/09/2019 12:45 PM EDT Surgery [place] [address] Michael Li MD [facility] [place] [address] INCISION & DRAINAGE COMPLEX POSTOPERATIVE WOUND INFECTION (WRVU 2.3) Social History Tobacco Use Types Packs/Day Years [...] Sign Reading Time Taken Comments Blood Pressure 121/70 12/09/2019 10:37 AM EDT Pulse 90 12/09/2019 10:37 AM EDT Temperature 37.1 ??C (98.8 ??F) 12/09/2019 10:37 AM E DT Respiratory Rate 20 12/09/2019 10:37 AM EDT Oxygen Saturation 95% 12/09/2019 10:37 AM EDT Inhaled Oxygen Concentration - - Weight 77.1 kg (170 lb) 12/08/2019 2:11 PM EDT Height 180.3 cm (5' 11) 12/08/2019 2:11 PM EDT Body Mass Index 23.71 12/08/2019 2:11 PM EDT documented in this encounter Discharge Summaries * Kim Ramsey MD - 12/09/2019 5:24 PM EDT Images from the original note were not included. Department of Thoracic Surgery - Discharge Summary Patient Name: Tree Lantigua Patient Age: 64 y.o. Birthdate: 1955 Admit date: 12/08/2019 Discharge date: 12/09/2019 Attending Physician: Quentin Carlin MD Discharge Diagnoses (Hospital Problems) and Secondary Diagnoses (Chronic Problems): Active Hospital Problems Diagnosis ??? Open wound of right chest wall with complication Resolved Hospital Problems No resolved problems to display. Active Non-Hospital Problems Diagnosis ??? Chest wall abscess ??? Mediastinal mass Operations/Major Procedures: Operations: Case Date: 12/09/2019 Surgeon: Surgeon(s) and Role: * Michael Li MD - Primary * Darren Bennett MD Procedure: Procedure(s): INCISION & DRAINAGE COMPLEX POSTOPERATIVE WOUND INFECTION (WRVU 2.3) DEBRIDEMENT SKIN, SUBCU, MUSCLE, THORAX (WRVU 2.7) Other Major Procedures: None History of Presentation: Tree Lantigua is a 64 y.o. male with PMHx significant for thymoma type A??s/p right posterolateralthoracotomy (10/24/19, Tesfaye), who presents with??an incisional abscess at 11/09/2019. He was admitted at that time for incision and drainage and placement of wound vac. He was doing well on discharge and had pink granulation tissue but now his wound VAC is draining rasta pus and was sent by his VNA to the ED. Hospital Course: Tree Lantigua was admitted to [facility] on 12/08/2019 viathe ED. He was brought to the operating room on 12/09/[address] Li performed surgery as described above. He tolerated the procedure well and was brought to the Post Anesthesia Care Unit for recovery. After a brief period of time he was transferred to the floor for continued rehabilitation. Awound vac was placed. By postoperative day 0 he had met all criteria for discharge to home. Pain was controlled on oral medications. He had walked 5 minutes. He was tolerating a regular diet. Vital signs: Vital Signs Temp: 36.4 ??C (97.5 ??F) Temp src: Oral Heart Rate from SpO2: 91 bpm Heart Rate: 90 Heart Rate Source: Monitor Resp: 18 BP: 108/77 MAP (NBP): 87 mmHg BP Method: Automatic BP Location: Left arm Patient Position: Sitting SpO2: 94 % O2 Flow Rate (L/min): 6 L/min O2 Device: None (Room air) Admission Wt: 77.11 kg Last Wt: Wt Readings from Last 3 Encounters: 12/08/19 77.1 kg (170 lb) 11/09/19 77.1 kg (170 lb) 10/26/19 77.1 kg (170 lb) Pertinent physical exam findings prior to discharge: Gen: NAD, pleasant, sitting HEENT: normocephalic, atraumatic, EOMI, sclerae anicteric Neck: supple, trachea midline Card: RRR, no M/R/G appreciated Pulm: CTAB, no wheeze/ronchi/rales appreciated, non-labored breathing on RA, incision on the right back covered with a wound vac Abd: soft, NT, BS+ : No hylton Ext: warm, dry, no edema Neuro: A&Ox3, CN II-XII grossly intact, nonfocal, conversant Important Lab Data: Lab Results Component Value Date WBC 9.0 12/09/2019 HGB 10.2 (L) 12/09/2019 HCT 34.5 (L) 12/09/2019 MCV 66.0 (L) 12/09/2019 Lab Results Component Value Date NA 136 12/08/2019 K 4.0 12/08/2019 CL 95 (L) 12/08/2019 CO2 27 12/08/2019 Lab Results Component Value Date CREATININE 0.83 12/08/2019 Lab Results Component Value Date BUN 11 12/08/2019 No results found for: PREALBUMIN No results for input(s): PT, PTT, INR in the last 168 hours. Studies: Culture pending Pending Studies and Lab Data: The patient will need the following 8 tests completed on: 12/08/2019 1. Blood culture 5. COVID-19 PCR 2. Fungus culture Abscess 6. AFB culture Other 3. Fungus culture Abscess 7. AFB culture Other 4. Anaerobic Culture 8. Anaerobic Culture Diagnosis: Authorizing Provider: Portillo Trejo MD, Quentin Carlin MD, Michael Li MD Discharge Conditions/Prognosis: Stable Discharge to: Home Discharge Medications: Your Medications New Medications Dose Details docusate sodium 100 mg Cap Commonly known as: Colace Take 1 capsule by mouth 2 times daily for 10 days. 100 mg Quantity: 20 capsule Refills: 0 sulfamethoxazole-trimethoprim DS 800-160 mg Tab Commonly known as: Bactrim DS Take 1 tablet by mouth 2 times daily. 1 tablet Quantity: 28 tablet Refills: 0 Continued medications, unchanged Dose Details acetaminophen 500 mg Tab Commonly known as: Tylenol Take 2 tablets by mouth every 6 hours. 1,000 mg Quantity: 30 tablet Refills: 0 ibuprofen 200 mg Tab Commonly known as: Advil;Motrin Take 3 tablets by mouth every 6 hours. 600 mg Refills: 0 oxyCODONE 5 mg Tab Commonly known as: Roxicodone Take 1 tablet by mouth every 8 hours as needed for Pain. 5 mg Quantity: 10 tablet Refills: 0 senna 8.6 mg Tab [...] a nurse in the Thoracic Clinic at [phone]. After hours or on weekends or holidays please call: [phone] and ask to speak to the Thoracic Surgeon on c all. Medication: Bactrim and oxycodone was sent to [facility]. Exercise & Activity Level: As you recover [...] Diet: You should follow a regular diet. Driving: No driving for 1 week or while taking narcotic pain medication. New Medications: Your Medications New Medications Dose Details docusate sodium 100 mg Cap Commonly known as: Colace Take 1 capsule by mouth 2 times daily for 10 days. 100 mg Quantity: 20 capsule Refills: 0 sulfamethoxazole-trimethoprim DS 800-160 mg Tab Commonly known as: Bactrim DS Take 1 tablet by mouth 2 times daily. 1 tablet Quantity: 28 tablet Refills: 0 Continued medications, unchanged Dose Details acetaminophen 500 mg Tab Commonly known as: Tylenol Take 2 tablets by mouth every 6 hours. 1,000 mg Quantity: 30 tablet Refills: 0 ibuprofen 200 mg Tab Commonly known as: Advil;Motrin Take 3 tablets by mouth every 6 hours. 600 mg Refills: 0 oxyCODONE 5 mg Tab Commonly known as: Roxicodone Take 1 tablet by mouth every 8 hours as needed for Pain. 5 mg Quantity: 10 tablet Refills: 0 senna 8.6 mg Tab Commonly known as: Senokot Take 2 tablets by mouth every evening. 2 tablet Quantity: 60 tablet Refills: 0 Shower/Bath: You may shower daily starting 2 days after chest tube removal, no bathing or swimming until your follow-up appointment. Incision care: Wash your incision(s) daily with soap and rinse well, pat dry. Assess for any signs of infection such as increased redness, pain, warmth or drainage. If you had a chest tube, you may remove the dressing over the chest tube site in 2 days after the chest tube was removed and leave it open to the air if it is not draining. Otherwise change the dressing twice a day and as needed. The dressing may remain off once there is no drainage. If you have steri-strips over an incision site, these will remain in place for 7-10 days. You may shower with them, and they will fall off naturally in 7-10 days. If they do not fall off by 10 days, you may remove them. Pain: Pain after surgery is normal. The [...] the Thoracic Clinic or the Thoracic Surgeon environmental auditor after hours. Please take over the counter Tylenol 1000mg every 6 hours and Ibuprofen 600mg every 6 hours, together as instructed, for baseline pain coverage. Take the Oxycodone, as prescribed, for pain not controlled by the Tylenol and Ibuprofen. DO NOT exceed that maximum dosing of 4000mg of Tylenol or 2400mg of Ibuprofen in 24 hours. We are unable to refill narcotics [...] to medical records for scanning to chart. @NARCOTICINSTRUCTIONS@ Sleep: Try to establish normal sleep patterns. [...] the office. Follow up appointments: You will see on the 12/19/[address] Carlin for a wound vac change. General Instructions None Future Appointments and Orders Future Orders Complete By Expires Referral to Home Health - at DISCHARGE [[id number] CPT(R)] As directed Process Instructions: Scheduling Instructions: Comments: DOCUMENTATION FOR VNA SERVICES (INCLUDING THOSE PATIENTS WITH MEDICARE COVERAGE REQUIRING HOME VNA SERVICES AND/OR HOSPICE SERVICES) PATIENT'S LOCATION: Tree Lantigua ? [address] [place] [id number] (home) ?? Cell: Telephone Information: Mobile ?[phone] Web Marketing Coordinator's Name: Self In discussion with the attending physician, it is certified that this patient is under their care and that they, or a Nurse Practitioner,Clinical Nurse specialist or Physician Field Services Analyst who is working directly with them, had a face to face encounter that meets the physician face to face encounter requirements with this patient on 12/09/2019.? The encounter with the patient was in [...] M, W , F wound vac changes (Per pt - should be at the [facility] clinic on for MD review) VAC Therapy (Negative Pressure Wound Therapy) is to be used as follows: 1. Apply dressing to wounds located: Left thoracotomy incision 2. ??Use 2 foam (black) pieces - wound is [...] facilitate closure of that tunneled area 3. ??Pressure setting deb be @ 125 mm/Hg on continuous 4. ??Dressing shall be changed on Sunday, Sunday, Sunday 5. ??Any other wound material used on wound bed as part of VAC therapy? No 6. ??Irrigate wound between dressing changes? No 7. ??Can pt take a shower? ??Yes 8. ??If known, what is the expected length of treatment? Unknown 9. ??If appropriate client/significant other may be instructed to change canister, patch leaks, remove dressing, change VAC dressing. ?? HOME HEALTH CARE AGENCY: [facility] ?? PHONE: [phone] FAX: [phone] Start of care: 24 to 48 hours [...] to be obtained from this patient's PCP: ??Christiana Moore APRN ? [address] / [place] [address] ?[phone] All VNA agencies which cover the area of patient's residence have been reviewed, either verbally carmel writing, and patient/family have chosen the home health care agency noted Questions: Agency name and contact information: [facility] Patient location post discharge: home What services are requested: Registered Nurse Start date: Responsible MD post discharge contact info: Surgery services and PCP Provider Contact Information: Primary Care Provider: Christiana Moore APRN [phone] Discharge References/Attachments: Discharge References/Attachments None For questions regarding this document or issues relating to this hospitalization on the Thoracic Surgery Service, please contact Dr. Carlin's office at . Signed: Kim Ramsey MD 12/09/2019 CC: PCP: Christiana Moore APRN Referring: Unknown None documented in this encounter Discharge Instructions * Patient Instructions* Clement Damon MD - 12/09/2019 5:28 PM EDT Images from the original note were not included. Call if you have a fever of greater than 101 degrees, shaking chills, develop redness or drainage from your incision site(s), or if you have questions. During normal business hours, Sunday- Sunday 8:00 a.m.-5:00 p.m., please call to speak to a nurse in the Thoracic Clinic at [phone]. After hours or on weekends or holidays please call: [phone] and ask to speak to the Thoracic Surgeon on c all. Medication: Bactrim and oxycodone was sent to [facility]. Exercise & Activity Level: As you recover [...] Diet: You should follow a regular diet. Driving: No driving for 1 week or while taking narcotic pain medication. New Medications: Your Medications New Medications Dose Details docusate sodium 100 mg Cap Commonly known as: Colace Take 1 capsule by mouth 2 times daily for 10 days. 100 mg Quantity: 20 capsule Refills: 0 sulfamethoxazole-trimethoprim DS 800-160 mg Tab Commonly known as: Bactrim DS Take 1 tablet by mouth 2 times daily. 1 tablet Quantity: 28 tablet Refills: 0 Continued medications, unchanged Dose Details acetaminophen 500 mg Tab Commonly known as: Tylenol Take 2 tablets by mouth every 6 hours. 1,000 mg Quantity: 30 tablet Refills: 0 ibuprofen 200 mg Tab Commonly known as: Advil;Motrin Take 3 tablets by mouth every 6 hours. 600 mg Refills: 0 oxyCODONE 5 mg Tab Commonly known as: Roxicodone Take 1 tablet by mouth every 8 hours as needed for Pain. 5 mg Quantity: 10 tablet Refills: 0 senna 8.6 mg Tab Commonly known as: Senokot Take 2 tablets by mouth every evening. 2 tablet Quantity: 60 tablet Refills: 0 Shower/Bath: You may shower daily starting 2 days after chest tube removal, no bathing or swimming until your follow-up appointment. Incision care: Wash your incision(s) daily with soap and rinse well, pat dry. Assess for any signs of infection such as increased redness, pain, warmth or drainage. If you had a chest tube, you may remove the dressing over the chest tube site in 2 days after the chest tube was removed and leave it open to the air if it is not draining. Otherwise change the dressing twice a day and as needed. The dressing may remain off once there is no drainage. If you have steri-strips over an incision site, these will remain in place for 7-10 days. You may shower with them, and they will fall off naturally in 7-10 days. If they do not fall off by 10 days, you may remove them. Pain: Pain after surgery is normal. The [...] the Thoracic Clinic or the Thoracic Surgeon environmental auditor after hours. Please take over the counter Tylenol 1000mg every 6 hours and Ibuprofen 600mg every 6 hours, together as instructed, for baseline pain coverage. Take the Oxycodone, as prescribed, for pain not controlled by the Tylenol and Ibuprofen. DO NOT exceed that maximum dosing of 4000mg of Tylenol or 2400mg of Ibuprofen in 24 hours. We are unable to refill narcotics [...] to medical records for scanning to chart. @NARCOTICINSTRUCTIONS@ Sleep: Try to establish normal sleep patterns. [...] the office. Follow up appointments: You will see on the 12/19/[address] Carlin for a wound vac change. documented in this encounter Medications at Time of Discharge Medication Sig Dispensed Refills Start Date End Date docusate sodium (Colace) 100 mg Capsule Take 1 capsule by mouth 2 times daily for 10 days. 20 capsule 12/09/2019 12/19/2019 oxyCODONE (Roxicodone) 5 mg Tablet Take 1 tablet by mouth every 8 hours as needed for Pain. 10 tablet 12/09/2019 04/13/2020 sulfamethoxazole-trimet hoprim DS (Bactrim DS) 800-160 mg Tablet Take 1 tablet by mouth 2 times daily. 28 tablet 12/09/2019 12/19/2019 ibuprofen (Advil;Motrin) 200 mg Tablet Take 3 tablets by mouth every 6 hours. 11/14/2019 03/20/2023 acetaminophen (Tylenol) 500 mg Tablet Take 2 tablets by mouth every 6 hours. 30 tablet 10/26/2019 03/20/2023 senna (Senokot) 8.6 mg Tablet Take 2 tablets by mouth every evening. 60 tablet 10/26/2019 03/20/2023 documented as of this encounter Progress Notes * Eva Prater RN - 12/09/2019 7:59 PM EDT Patient Name: Tree Lantigua Patient Age: 64 y.o. Birthdate: 1955 Admit date: 12/08/2019 Attending Physician: Quentin Carlin MD 0900: Pt assessed at beginning of shift, AO4, vss, denies chest pain, shortness of breath, nauseau,headache and dizziness. Pt's pain adequately controlled with PRN tylenol and ibuprofen. Pt's HRR, LS clear. Abd soft, round, non-tender in all four quadrants, positive BS, positive flatus. Pt voidingquantity sufficient. Pt OOB indep and ad jose c. NPO for washout/debridement and vac placement in OR. R incision/wound dsg reinforced. Will continue to monitor, for further assessments please see flowsheet. at bedside. 1900: Pt d/c'd to home with home VAC and VNA services. Reviewed D/C instructions with patient and family, pt aware of when and why to notify MD and of follow up appointments. Pt had no questions regarding summary instructions. IV d/c'd, catheter intact. Pt aware of rx sent to preferred pharmacy. Ptleft left on foot to family vehicle at ~1900. DC summary faxed to VNA. * Beena Dubose RN - 12/09/2019 6:26 PM EDTSummary: VNA ED RN/CM notified that patient is medically ready for discharge home with VNA services and WOUND VAC. He has the portable WOUND VAC with him. Spouse to drive him home. Wants to use the same agency he had: Patient requests referral to: [facility]. PHONE: [phone] FAX: [phone] Expected date of discharge: 12/09/2019 Referral routed to the Release Coordinator for matching with agency/vendor and to provide any required information. Diony Dubose RN (Jonas) ED RN/CM Cellphone: [phone] * Clement Damon MD - 12/09/2019 5:05 PM EDT [facility] Department of Thoracic Surgery Inpatient Post Op Check Note Patient Name: Tree Lantigua Patient : 1955 Patient Patient Location: [address] [place] [address] Attending Surgeon: ARMEN SIMON DAVID J ID: Tree Lantigua is a 64 y.o. male who is Day of Surgery s/p wound debridement and washout and placement of a wound vac Subjective: No nausea/vomiting, chest pain, SOB, pain well controlled, offers no complaints Vitals: Temp: [36.1 ??C (97 ??F)-37.1 ??C (98.8 ??F)] Heart Rate: [75-90] Resp: [10-20] BP: (102-131)/(58-88) SpO2: [92 %-100 %] Heart Rate from SpO2: [74 bpm-94 bpm] Wt & BMI By Encounter Date ED to Hosp-Admission (Current) from 12/08/[address] [place] [address] ED to Hosp-Admission (Discharged) from 11/09/[address] [place] [address] Weight 77.1 kg (170 lb) 1 12/08/2019 1411 77.1 kg (170 lb) 1 11/09/2019 1031 BMI 23.71 1 12/08/2019 1411 -- Physical Exam: Gen: NAD, pleasant, sitting HEENT: normocephalic, atraumatic, EOMI, sclerae anicteric Neck: supple, trachea midline Card: RRR, no M/R/G appreciated Pulm: CTAB, no wheeze/ronchi/rales appreciated, non-labored breathing on RA, incision on the right back covered with a wound vac Abd: soft, NT, BS+ : No hylton Ext: warm, dry, no edema Neuro: A&Ox3, CN II-XII grossly intact, nonfocal, conversant Urine output since OR 275 ml. I/O: I/O last 3 completed shifts: In: - Out: 1050 [Urine:1050] Labs: None Diagnostics: None Micro: Pending (gram pos cocci) Assessment: Tree Lantigua is a 64 y.o. male who is Day of Surgery s/p wound debridement and washout and placement of a wound vac . He is currently in stable condition and recovering well postoperatively. Plan: Neuro: tylenol, ibuprofen Oxycodone PRN Card: monitor vitals, Pulm: none FENGI: Regular diet. RBOs Renal/:, monitor UOP Heme: Enoxaparin ID: zosyn and vancomycin Endo: None PPx: Ambulate 4x a day. OOB. Dispo: full code, floor status Clement Damon MD 12/09/2019 Thoracic Surgery Service Pager [phone] * Clement Damon MD - 12/09/2019 8:47 AM EDT [facility] Department of Thoracic Surgery Inpatient Progress Note Patient Name: Tree Lantigua Patient : 1955 Patient Patient Location: [address] [place] [address] Attending Surgeon: ARMEN SIMON DAVID J ID: Tree Lantigua is a 64 y.o. male who is s/p with PMHx significant for thymoma type A??s/p rightposterolateral thoracotomy (10/24/19, Tesfaye) with resection of the anterior mediastinal mass, wedgeresection of the right lung who presents with??increasing pain, redness, swelling, and pus at the incision site 11/09/2019. At that time he had a CT consistent with??an abscess at incision,??pleural effusion,??and a leukocytosis.?? He came in for incision and drainage and placement of wound vac when he left his wound had pink granulation tissue but now his wound VAC is draining rasta pus. 24 Hour Events / Subjective: - Managed to sleep tonight - Still in some pain but was okay controlled of the wound vac - Is NPO for ad on case in the OR, is marked, consented and precheck is finished Vitals: Temp: [36.7 ??C (98.1 ??F)-37.4 ??C (99.3 ??F)] Heart Rate: [136] Resp: [18-20] BP: (102-119)/(58-98) SpO2: [92 %-96 %] Heart Rate from SpO2: [84 bpm-94 bpm] Wt & BMI By Encounter Date ED to Hosp-Admission (Current) from 12/08/2019 in [facility] ED to Hosp-Admission (Discharged) from 11/09/2019 in 4 [facility] Weight 77.1 kg (170 lb) 1 12/08/2019 1411 77.1 kg (170 lb) 1 11/09/2019 1031 BMI 23.71 1 12/08/2019 1411 -- Physical Exam: Gen: NAD, pleasant, lying in bed. HEENT: normocephalic, atraumatic, EOMI, sclerae anicteric Neck: supple, trachea midline Card: RRR, no M/R/G appreciated Pulm: CTAB, no wheeze/ronchi/rales appreciated, non-labored breathing on RA Wound on the right medial to his scapula. Abd: soft, NT, BS+ Ext: warm, dry, no edema Neuro: A&Ox3, CN II-XII grossly intact, nonfocal, conversant I/O: I/O last 3 completed shifts: In: - Out: 1050 [Urine:1050] Labs: Diagnostics: CT chest 12/09/2019 IMPRESSION 1. Right posterior-lateral chest wall defect compatible with known wound, with overlying packing dressing in place. No abscess. 2. Postprocedural changes in the right lung with decreased size of the residual cavitary nodular opacities. 3. Interval decrease of the now small residual bilateral pleural effusions, with scattered linear atelectasis. Micro: Specimen Information: Back; Abscess RIGHT BACK/SHOULDER INCISION ?? Component Value Gram Stain Abnormal Many Neutrophils seen Rare Gram Positive Cocci seen Assessment: Tree Lantigua is a 64 y.o. male who is s/p 11/02 posterolateral thoracotomy for a thymoma type A. It was complicated by incisional infection and an abscess 11/09/19 that was treated with Abx and wound VAC. Comes now because wound VAC is draining pus colored fluid, has increasing pain and fever. He has an elevated WBC. Gram stain shows a gram pos cocci. Plan: Neuro: Tylenol, ibuprofen, and has gotten oxycodone. Card: Got LR 2 L on admission Pulm: None FENGI: None Renal/: Monitor intake and output Heme: WBC 10.3 ID: [email or web address] and vanco Endo: None Other: None PPx: enoxaparin Dispo: Floor Code: Full Diet: NPO Micro: cultures are pending, gram pos cocci on gram stain. Plan: Is NPO and set up for a wound debridement and washout. He is consented and marked, pre-check list is done. Clement Damon MD 12/09/2019 Thoracic Surgery Service Pager [phone] * Norma Contreras RN - 12/08/2019 11:50 PM EDT Pt arrived to the floor around 2230. AAOx4. VSS. Pt oriented to unit, room, and staff. NPO at midnight for possible OR in morning. See DocFlow for assessment. Will continue to monitor. Report received from ED, RN. documented in this encounter H&P Notes * Tree Hodge MD - 12/08/2019 8:34 PM EDT [facility] Department of Thoracic Surgery Consult Note Consultation Requested by: Armen Simon MD We are seeing Tree Lantigua today at the request of Dr. Armen Simon MD for evaluation and advice about right back surgical wound abscess. CC/HPI: Tree Lantigua is a 64 y.o. male with PMH of thymoma and pleural effusion s/p right VATS evac and partial decortication, right posterolateral thoracotomy and resection of anterior right thymoma complicated by surgical site right chest wall abscess s/p washout and wound vac placement, discharged 11/14/2019, who presents with fever, chills, malaise, and worsening pain and purulent drainage from incisional site. Endorses malaise and worsening incisional pain for the last week. This morning he endorsed low grade fever to 100.7F and chills. When [facility] came to assess his wound, they noted purulent drainage from wound vac site and tachycardia. He then presented to [facility] ED. Upon arrival, he was afebrile, tachycardic to 130s, and normotensive with expression of purulence from right back surgical site.Labs significant for mild leukocytosis to 14.5. Thoracic surgery was then consulted for management. PMH: Right anterior thymoma PSH: Past Surgical History: Procedure Laterality Date ??? PRO BRONCHOSCOPY, DIAGNOSTIC N/A 10/24/2019 BRONCHOSCOPY, DIAGNOSTIC (WRVU 2.78) performed by Quentin Carlin MD at [facility] OR ??? PRO DRAINAGE OF HEMATOMA/FLUID Right 11/09/2019 INCISION & DRAINAGE HEMATOMA, SEROMA OR FLD. COLLECTION, CHEST (WRVU 1.58) performed by Piyush Hobbs MD at [facility] MAIN OR ? ? PRO INJECTION ANES AGENT &/ STEROID INTERCOSTAL NERVE EA ADDL LEVEL Right 10/24/2019 NERVE BLOCK, INTERCOSTAL NERVE, MULTIPLE (WRVU 1.68) performed by Quentin Calrin MD at [facility] OR ??? PRO THORACOSCOPY WITH BIOPSY OF PLEURA Right 10/24/2019 THORACOSCOPY; WITH BIOPSY(IES) OF PLEURA (WRVU 4.58) performed by Quentin Carlin MD at [facility] OR ??? PRO THORACOTOMY WITH THERAPEUTIC WEDGE RESECTION EA ADDL Right 10/24/2019 @THORACOTOMY; W/THERAPEUTIC WEDGE RESECTION, EA ADD'L RESC, IPSILATERAL (WRVU 3) performed by Quentin Carlin MD at [facility] OR ??? PRO THORACOTOMY WITH THERAPEUTIC WEDGE RESECTION INITIAL Right 10/24/2019 @THORACOTOMY; W/ THERAPEUTIC WEDGE RESECTION , INITIAL (WRVU 15.75) performed by Quentin Carlin MD at [facility] OR ??? PRO THYMECTOMY, RADICAL MEDIAST DISSSEC Right 10/24/2019 @THYMECTOMY W/ RAD. MEDIASTINAL DISSECTION (WRVU 23.48) performed by Quentin Carlin MD at [facility] OR MEDS: No current facility-administered medications on file prior to encounter. Current Outpatient Medications on File Prior to Encounter Medication Sig Dispense Refill ??? oxyCODONE (Roxicodone) 5 mg Tablet Take [...] by mouth every evening. 60 tablet 0 ALL: Allergies Allergen Reactions ??? Wasp Venom FH: No family history on file. SH: Social History Socioeconomic History ??? Marital status: Spouse name: Not on file ??? Number of children: Not on file ??? Years of education: Not on file ??? Highest education level: Not on file Occupational History ??? Not on file Social Needs ??? Financial resource strain: Not on file ??? Food insecurity Worry: Not on file Inability: Not on file ??? Transportation needs Medical: Not on file Non-medical: Not on file Tobacco Use ??? Smoking status: Never Smoker ??? Smokeless tobacco: Never Used Substance and Sexual Activity ??? Alcohol use: Yes Alcohol/week: 2.0 standard drinks Types: 1 Glasses of wine, 1 Cans of beer per week ??? Drug use: Never ??? Sexual activity: Not on file Lifestyle ??? Physical activity Days per week: Not on file Minutes per session: Not on file ??? Stress: Not on file Relationships ??? Social connections Talks on phone: Not on file Gets together: Not on file Attends pentecostalism service: Not on file Active member of club or organization: Not on file Attends meetings of clubs or organizations: Not on file Relationship status: Not on file ??? Intimate partner violence Fear of current or ex partner: Not on file Emotionally abused: Not on file Physically abused: Not on file Forced sexual activity: Not on file Other Topics Concern ??? Not on file Social History Narrative ??? Not on file ROS: Pertinent positives and negatives mentioned above. VITALS: Temp: [37.4 ??C (99.3 ??F)] Heart Rate: [136] Resp: [20] BP: (119)/(98) SpO2: [96 %] Heart Rate from SpO2: -- EXAM: General: NAD, laying in bed HEENT: NC/AT CVS: tachycardic Pulm: breathing comfortably on RA Abd: soft, nontender, nondistended Back: right incisional site with purulence expressed, no erythema Ext: warm, well perfused Neuro: AAO, no facial asymmetry, no focal deficits LABS: CBC Lab Results Component Value Date WBC 14.5 (H) 12/08/2019 Hemoglobin 12.9 (L) 12/08/2019 Hematocrit 43.0 12/08/2019 Platelets 328 12/08/2019 Electrolytes Lab Results Component Value Date Sodium 136 12/08/2019 Potassium 4.0 12/08/2019 Chloride 95 (L) 12/08/2019 CO2 27 12/08/2019 Lab Results Component Value Date BUN 11 12/08/2019 CREATININE 0.83 12/08/2019 Coags No results found for: INR, PT, PTT IMAGING: CT Chest: pending IMPRESSION: Tree Lantigua 64 y.o. male with PMH thymoma and pleural effusion s/p right VATS evac and partial decortication, right posterolateral thoracotomy and resection of anterior right thymoma complicated by surgical site right chest wall abscess s/p washout and wound vac placement, discharged 11/14/2019, who presents with fever, chills, malaise, and worsening pain and purulent drainage from incisional site. Endorses malaise and worsening incisional pain for the last week, with new fever 100.7F and chills along with purulent drainage from wound vac site and tachycardia for which he presented to [facility] ED. He is currently afebrile, tachycardic to 130s, and normotensive with expression of purulence fromright back surgical site. Labs significant for mild leukocytosis to 14.5. CT Chest is pending. My assessment is that he has recurrent right back surgical site abscess leading to sepsis. RECOMMENDATIONS: 1. Admit to Thoracic Surgery 2. Obtain surgical site cultures, start vancomycin and zosyn 3. NPO at midnight 4. OR tomorrow for wound exploration and washout Thank you for this consult. If you have any questions, please page [phone]. Tree Hodge MD Thoracic Surgery, Pager [phone] 12/08/2019 8:35 PM documented in this encounter Nursing Notes * Judy Banks, RN - 12/09/2019 2:12 PM EDT Arrived from OR in bed, attached to monitors and alarms set appropriately for patient. Pt arrived A+Ox4. Denies pain and nausea. documented in this encounter ED Notes * Armen Simon MD - 12/08/2019 6:53 PM EDT Brief Attending Note I cared for the patient with the resident physician. Please see Dr. Luna's note, associated withthe encounter, for more details. HPI: Tree Lantigua is a 64 y.o. who presents to the ED subcutaneous chest abscess, status post thymoma resection, and wound VAC in place who has been off antibiotics for approximately 3 days, and per hiswound care nurse he has been leaking purulent discharge from the wound VAC with subjective chills and a temperature of 100.7. ROS: Pertinent positives and negatives are included in the history of present illness, otherwise 10 systems are reviewed and negative Allergies: Allergies Allergen Reactions ??? Wasp Venom Past Medical, Past Surgical, Family/Social History: reviewed in chart. Patient Vitals for the past 8 hrs: BP Temp Temp src Pulse Resp SpO2 Height Weight 12/08/19 1411 (!) 119/98 37.4 ??C (99.3 ??F) Oral (!) 136 20 96 % 180.3 cm (5' 11) 77.1 kg (170 lb) Gen: well appearing, NAD HENT: atraumatic, OP clear, mmm Pulm: CTA edenilson, no respiratory distress Card: RRR Abd: soft, nt Skin: 10 cm open wound over the right scapula without active purulent drainage Neuro: speech fluent, no obvious deficit MS: No obvious deformity Psych: Normal mood Assessment: 64 y.o. male presenting with concern for sepsis status post wound infection. He is low-grade temperature, tachycardic to the 130s and elevated inflammatory markers. Thoracic surgery has been consulted. Admission to Thoracics versus hospital medicine. We will give broad-spectrum antibiotics. Armen Simon MD 12/08/19 4518 * Zeeshan Luna MD - 12/08/2019 3:51 PM EDT ED Resident Note Tree Lantigua is an 64 y.o. male who presents to the ED with: Chief Complaint Patient presents with ??? Wound Check I saw this patient on 12/09/2019. History is from the patient at the bedside. HPI Tree Lantigua is a 64 y.o. male with history of thymoma status post resection which was complicated by a subcutaneous abscess who presents to the Emergency Department fever and purulent discharge from his wound. Patient is been off antibiotics now for 3 days, he states that his wound is been leaking pus per his wound care nurse. In addition he has been feeling chilled and had a fever of 100.7. He denies any nausea vomiting, abdominal pain, dysuria or bowel movements. Review of Systems: Review of Systems Constitutional: Negative for activity change, appetite change, chills, diaphoresis, fever and unexpected weight change. HENT: Negative for rhinorrhea, sore throat and voice change. Respiratory: Negative for apnea, cough and shortness of breath. Cardiovascular: Negative for chest pain. Gastrointestinal: Negative for abdominal pain, constipation, diarrhea, nausea and vomiting. Genitourinary: Negative for dysuria. Musculoskeletal: Negative for back pain. Skin: Positive for wound. Negative for rash. Neurological: Negative for dizziness, numbness and headaches. Psychiatric/Behavioral: Negative for confusion and suicidal ideas. Physical Exam: Patient Vitals for the past 24 hrs: BP Temp Temp src Pulse Resp SpO2 Height Weight 12/08/19 2250 102/61 36.7 ??C (98.1 ??F) Oral -- 18 94 % -- -- 12/08/19 1411 (!) 119/98 37.4 ??C (99.3 ??F) Oral (!) 136 20 96 % 180.3 cm (5' 11) 77.1 kg (170 lb) GEN: No acute distress. HEENT: Oropharynx clear, pink, and moist. PULM: No resp distress. CV: Normal rate. ABD: Soft, nondistended, nttp. MSK: No gross deformities. NEURO: AAOx3. PERRL. No gross CN deficits. Light touch intact face & body. Moves extremities equally. PSYCH: Normal mood and thought pattern. SKIN: There is a 10 cm open wound over the right scapula which looks clean, no purulent drainage notable at this time, no surrounding erythema. ED Course: - Patient seen under the supervision of the attending physician. - Medications, allergies, and past medical history reviewed. Recent Results (from the past 24 hour(s)) Basic Metabolic Panel (non-fasting) Result Value Ref Range Glucose Lvl 115 65 - 199 mg/dL BUN 11 10 - 20 mg/dL Creatinine 0.83 0.80 - 1.50 mg/dL Sodium 136 135 - 145 mmol/L Potassium 4.0 3.5 - 5.0 mmol/L Chloride 95 (L) 98 - 107 mmol/L CO2 27 22 - 31 mmol/L Anion Gap 14 5 - 15 mmol/L Calcium 9.7 8.5 - 10.5 mg/dL eGFR 92 >=60 mL/min/1.73 m?? eGFR 107 >=60 mL/min/1.73 m?? CRP, acute inflammation Result Value Ref Range CRP 134.3 (H) <=4.9 mg/L Sedimentation rate Result Value Ref Range Sed Rate >119 (H) 2 - 37 mm/hr Hemogram Result Value Ref Range WBC 14.5 (H) 4.0 - 9.5 x10(3)/mcL RBC 6.62 (H) 4.58 - 5.54 x10(6)/mcL Hemoglobin 12.9 (L) 13.7 - 16.5 gm/dL Hematocrit 43.0 40.5 - 48.5 % MCV 65.0 (L) 82.9 - 93.1 fL MCH 19.5 (L) 27.5 - 32.1 pg MCHC 30.0 (L) 32.0 - 35.7 gm/dL Platelets 328 145 - 357 x10(3)/mcL RDWSD 38.8 36.0 - 45.0 fL RDWCV 18.6 (H) 11.4 - 13.8 % MPV 10.1 7.6 - 12.9 fL nRBC % Auto 0.0 % nRBC Abs Auto 0.000 0.000 - 0.000 x10(3)/mcL Differential, Automated Result Value Ref Range Neutrophils % 78.0 % Neutr Abs (ANC) 11.28 (H) 1.70 - 6.10 x10(3)/mcL Lymphocytes % 11.5 % Lymphocytes Abs 1.7 0.9 - 3.2 x10(3)/mcL Monocytes % 7.9 % Monocyte Abs 1.1 (H) 0.3 - 0.9 x10(3)/mcL Eosinophils % 0.7 % Eosinophils Abs 0.1 0.0 - 0.4 x10(3)/mcL Basophils % 0.6 % Basophils Abs 0.1 0.0 - 0.1 x10(3)/mcL Immature Gran % 1.30 % Mayra Gran Abs 0.19 (H) 0.00 - 0.04 x10(3)/mcL Blue Tube HOLD Result Value Ref Range Blue Hold Sample in lab. Gold Tube HOLD Result Value Ref Range Gold Hold Sample in lab. Aguilar Tube Hold Result Value Ref Range Aguilar Hold Sample in lab. Scan, Peripheral Blood Result Value Ref Range Plat Estimate Normal RBC Morphology Abnormal Microcytes 1-5 /HPF Hypochromia Slight Polychromasia Present >5/HPF Target Cells 1-5 /HPF Abscess/Wound Aspirate Culture Specimen: Back; Abscess RIGHT BACK/SHOULDER INCISION Result Value Ref Range Gram Stain (A) Many Neutrophils seen Rare Gram Positive Cocci seen Organism Gram Positive Cocci (A) Assessment and Plan: MDM 64 y.o. male with sepsis from wound infection. 64-year-old male with a chronic wound to his complication of thymoma resection presenting with fever, tachycardia, found to have purulent discharge from his chronic wound. He is given Zosyn, fluid resuscitation and his tachycardia improved. He will be admitted to surgery for further work-up and evaluation. I performed the following procedure(s): adult medical resuscitation. Zeeshan Luna MD Resident 12/09/19 0020 Associated attestation - Armen Simon MD - 12/10/2019 9:55 AM EDT ED ATTENDING ATTESTATION The patient was seen in conjunction with the resident physician. I have independently performed thekey portions of the history and physical exam. I have personally reviewed nursing notes, vital signs, and diagnostic studies including labs, imaging studies and EKGs. I have discussed the details of the case with the resident and agree with the assessment and plan as described in the resident's note, unless stated otherwise in my separate note. Did this case involve critical care? No * Bart Conley PA - 12/08/2019 2:08 PM EDT Brief Provider Triage Note Name: Tree Lantigua : 1955 Date of Service: 12/08/2019 Chief Complaint: Wound Check History of Present Illness: 64 y.o. y/o male s/p thymoma removal 10/23 presents with concerns for abscess. Patient has post-surgical infection on his back. Patient states he was found to have re-infection by his visiting nurse today. He reports increasing pain. Antibiotics ended 1 week ago. Vitals: BP (!) 119/98 (Patient Position: Sitting) Pulse (!) 136 Temp 37.4 ??C (99.3 ??F) (Oral) Resp 20 Ht 180.3 cm (5' 11) Wt 77.1 kg (170 lb) SpO2 96% BMI 23.71 kg/m?? Agitated/anxious in triage Otherwise no distress Plan: CBC, BMP, CRP, ESR, blood Cx Tylenol, LR bolus Re-examination Further diagnosis and management in ED COVID-19 precautions were used throughout this encounter. Bart Conley PA 12/08/19 1414 documented in this encounter Miscellaneous Notes * Op Note - Michael Li MD - 12/09/2019 1:29 PM EDTSummary: Operative Report [facility] Operative Note Patient Name: Tree Lantigua : [id number] MR#: [id number] Case Date: 12/09/2019 Surgeon: Surgeon(s) and Role: * Michael Li MD - Primary * Darren Bennett MD Preoperative diagnosis: chest wall abscess Postoperative diagnosis: chest wall abscess Procedure(s) (LRB): INCISION & DRAINAGE COMPLEX POSTOPERATIVE WOUND INFECTION (WRVU 2.3) (Right) DEBRIDEMENT SKIN, SUBCU, MUSCLE, THORAX (WRVU 2.7) (Right) Findings: Superior aspect of incision with fibrinous purulent fluid, about 3cc, which was sent for culture. Wound opening extended superiorly and anterior to allow for better access/drainage. Wound measured 13cm long by 3cm wide by 2cm deep. One black sponge in wound, one black sponge used for bridging anteriorly. Anesthesia: General Estimated Blood Loss: * No values recorded between 12/09/2019 12:25 PM and 12/09/2019 1:08 PM * Specimens removed during surgery: Culture posterior thorax incision Drains: Wound vac (2 black sponges) Surgical Closure: Other Than Primary Closure - deep and superficial layers are left completely openduring original surgery Disposition: awakened from anesthesia, extubated and taken to the recovery room in a stable condition, having suffered no apparent untoward event. Condition: doing well without problems (Please see the Surgical Encounter Summary for any Implant and Specimen details pertinent to this patient.) HPI/Surgical Indications: Mr. Lantigua is a 64 year old gentleman with a history of right thoracotomy for thymoma and wedge resections about 1.5 months ago who returned 11/09/2019 with wound infection which was opened and washed out and ultimately discharged home with wound vac. He returned yesterday evening with new purulent drainage from the incision. CT scan of his chest did not show any additional fluid collections or other process. Risks and benefits of wound washout, debridement, and wound vac placement were explained to him and he was agreeable to proceed. Procedure Description: The patient was brought to the operating room and placed right side up on the operating table aftergeneral anesthesia with endotracheal intubation. The right thorax was prepped and draped in the usual sterile fashion with chlorhexidine on skin and betadine on the wound. Time out was performed where the correct patient, procedure, site, DVT prophylaxis, and preoperative antibiotics were confirmedprior to the beginning of the procedure. The wound was gently explored and a superior pocket was found containing purulent fluid and fibrinous exudate. This was sent for culture. There was about 2cm of tunneling at the superior aspect, 1cm of tunneling under the scapula, and 3cm of tunneling anteriorly. The wound measured 13cm long by 3cmwide by 2 cm deep. The incision was extended 1cm in each direcftion to allow for better drainage ofthose tunneled areas. The wound was thoroughly irrigated with 4 liters of normal saline and also irrigated with neomycin infused saline using pulse lavage. Hemostasis was adequate at the end of the case. One black sponge was placed in the wound and an additional black sponge was used to create a sarthak dge to his anterior chest using Duoderm to protect the skin. The wound vac was placed to -125mmHg and held suction well. A local field block was performed with 16cc of 0.5% marcaine mixed with exparel. Pt tolerated the procedure well and without complication. he was awaken from anesthesia, extubated and taken back to PACU in stable condition having suffered no adverse events throughout the entiretyof the procedure. All counts were correct at the end of the procedure and Dr. Li was scrubbed throughout the procedure. Infection Bundle used? N/A Attending Attestation: I was the attending physician supervising the resident in the above care Ankit was present with the resident for the entire procedure. Michael Li MD Thoracic Surgery * Plan of Care - Norma Contreras RN - 12/09/2019 4:35 AM EDT Problem: Patient Care Overview Goal: Plan of Care Review 12/09/19 0416 Coping/Psychosocial Plan Of Care Reviewed With patient Plan of Care Review Progress no change OUTCOME EVALUATION NOTE: OUTCOME SUMMARY: Adi had a good night. Pt slept well in between care. AAOx4. VSS. Afebrile. Pt denies nausea. Pain well controlled with PRN oxycodone, and scheduled meds. Pt voiding adequate amounts via urinal. Pt passing gas; pt had no BMs this shift. Old incision site CDI with gauze and tape. NPO at midnight for possible OR. IV abx given per JUN. No other complaints during shift. Will continue to monitor. PLAN MOVING FORWARD: Encourage independence. Encourage ambulation. Encourage fluids/nutrition. Maintain pain control. INDIVIDUALIZED FALL PREVENTION INTERVENTIONS: Patient-specific fall risk factors per assessment: [current deficits]: IV, generalized weakness, pain, lines/drains Assistance [level of assistance required for transfers and ambulation]: independent Supervision [direct monitoring required during toileting and ADLs]: eyes on Surveillance [continuous indirect monitoring]: Masimo,purposeful rounding, call james in reach Patient-specific fall prevention interventions for sensory deficits provided, if applicable: [X] Yes, environmental modifications, lights adjusted to task, non- skid socks CPG GOAL OUTCOME EVALUATION: Ongoing Goal: Fall Prevention-Safe Patient Handling 12/08/192244 [place] Fall Risk History of Falling 0 Secondary Diagnosis 15 Ambulatory Aids 0 Intravenous Therapy/Heparin/Saline Lock 20 Gait/Transferring 0 Mental Status 0 Score 35 OTHER [place] Fall Risk Med Restraint Interventions Safety Promotion/Fall Prevention activity supervised;nonskid shoes/slippers when out of bed;safety round/check completed Positioning Body Position side-lying, left Activity Activity Type activity adjusted per tolerance Activity Assistance Provided independent Assistive Device Utilized none Goal: Infection Control 12/08/192244 Safety Interventions Isolation Precautions standard precautions maintained Infection Prevention environmental surveillance performed;personal protective equipment utilized;rest/sleep promoted;single patient room provided Coping Strategies Supportive Measures active listening utilized;self-care encouraged;verbalization of feelings encouraged Goal: Discharge Needs Assessment 12/09/19415 Discharge Needs Assessment Concerns To Be Addressed denies needs/concerns at this time Equipment Needed After Discharge none Discharge Disposition still a patient Activity/Self Care Review of Systems Equipment Currently Used at Home none Living Environment Transportation Available family or friend will provide Goal: Interdisciplinary Rounds/Family Conf 12/09/19415 Interdisciplinary Rounds/Family Conf Participants nursing;patient;physician documented in this encounter Plan of Treatment Not on file documented as of this encounter Procedures Procedure Name Priority Date/Time Associated Diagnosis Comments DEBRIDEMENT SKIN, SUBCU, MUSCLE, THORAX Routine 12/09/2019 1:27 PM EDT INCISION & DRAINAGE COMPLEX POSTOPERATIVE WOUND INFECTION Routine 12/09/2019 1:27 PM EDT ANAEROBIC CULTURE Routine 12/09/2019 12: 34 PM EDT ANAEROBIC CULTURE Routine 12/09/2019 12: 34 PM EDT HC GRAM STAIN FOR BACTERIA Routine 12/09/2019 12:34 PM EDT HC GRAM STAIN FOR BACTERIA Routine 12/09/2019 12:34 PM EDT HC MYCOBACTERIA CULTURE Routine 12/09/2019 12:34 PM EDT HC MYCOBACTERIA CULTURE Routine 12/09/2019 12:34 PM EDT ABSCESS/WOUND ASPIRATE CULTURE Routine 12/09/2019 12:34 PM EDT ABSCESS/WOUND ASPIRATE CULTURE Routine 12/09/2019 12:34 PM EDT HC FUNGUS CULTURE, MISC SOURCE Routine 12/09/2019 12:34 PM EDT HC FUNGUS CULTURE, MISC SOURCE Routine 12/09/2019 12:34 PM EDT Debridement Muscle And Fascia 20 Sq Cm/< ([id number]) 12/09/2019 11:44 AM EDT chest wall abscess Incision And Drainage Complex Post Operative Wound Infection ([id number]) 12/09/2019 11:44 AM EDT chest wall abscess HEMOGRAM Routine 12/09/2019 5:07 AM EDT DIFFERENTIAL, AUTOMATED Routine 12/09/2019 5:07 AM EDT HC CBC,PLT & AUTO DIFF Routine 0 5:07 AM EDT RAPID COVID-19 PCR ([facility]) STAT 12/08/2019 10:[address] CHEST W CONTRAST STAT 12/08/2019 8 :54 PM EDT ANAEROBIC CULTURE STAT 12/08/2019 8:3 0 PM EDT HC WOUND/ABSCESS CX STAT 12/08/2019 8 :30 PM EDT ABSCESS/WOUND ASPIRATE CULTURE STAT 12/08/2019 8:30 PM EDT HC BLOOD CULTURE- STAT 12/08/2019 4:1 1 PM EDT HC C-REACTIVE PROTEIN STAT 12/08/2019 3:58 PM EDT AGUILAR TUBE HOLD STAT 12/08/2019 3:58 PM EDT SCAN, PERIPHERAL BLOOD STAT 0 3:58 PM EDT HEMOGRAM STAT 12/08/2019 3:58 PM EDT DIFFERENTIAL, AUTOMATED STAT 12/08/2019 3:58 PM EDT GOLD TUBE HOLD STAT 12/08/2019 3:58 PM EDT BLUE TUBE HOLD STAT 12/08/2019 3:58 PM EDT HC ESR-SEDIMENTATION RATE, BLOOD STAT 12/08/2019 3:58 PM EDT HC CBC,PLT & AUTO DIFF STAT 0 3:58 PM EDT BASIC METABOLIC PANEL STAT 12/08/2019 3:58 PM EDT documented in this encounter Results * Anaerobic Culture (12/09/2019 12:34 PM EDT) Anaerobic Culture No anaerobic organisms isolated [facility] Specimen from abscess (specimen) THORACIC STRUCTURE / Unknown 12/09/2019 12:34 PM EDT 12/09/2019 2:15 PM EDT Comment:RIGHT POSTERIOR LATE RAL CHEST WALL WOUND #2 Narrative Resulting Agency Comment Spec In Lab Michael Li MD MICROBIOLOGY - [facility] AL ORDERABLES [facility] [place] [id number] * (ABNORMAL) Abscess/Wound Aspirate Culture (12/09/2019 12:34 PM EDT) Abscess/Wound Aspirate Culture Moderate Staphylococcus aureus(A) [facility] Gram Stain Many Neutrophils seen Rare Gram Positive Cocci seen (A) [facility] Organism Staphylococcus aureus(A) [facility] Organism Gram Positive Cocci(A) [facility] Specimen from abscess (specimen) THORACIC STRUCTURE / Unknown 12/09/2019 12:34 PM EDT 12/09/2019 2:15 PM EDT Comment:RIGHT POSTERIOR LATE RAL CHEST WALL WOUND #2 Narrative Resulting Agency Comment Spec In Lab Organism Antibiotic Method Susceptibility Staphylococcus aureus Cefazolin VITEK 2 METHOD Sensitive Staphylococcus aureus Ceftriaxone VITEK 2 METHOD Sensitive Staphylococcus aureus Ciprofloxacin VITEK 2 METHOD Sensitive Staphylococcus aureus Clindamycin VITEK 2 METHOD Sensitive Staphylococcus aureus Erythromycin VITEK 2 METHOD Sensitive Staphylococcus aureus Gentamicin VITEK 2 METHOD Sensitive Comment:Gentamicin i s not appropriate for Potter-therapy. Staphylococcus aureus Levofloxacin VITEK 2 METHOD Sensitive [...] Staphylococcus aureus Vancomycin VITEK 2 METHOD Sensitive Michael Li MD MICROBIOLOGY - GENER AL ORDERABLES Performing Organization Address [facility]/ZIP Co de Phone Number [facility] [place] [address] * Anaerobic Culture (12/09/2019 12:34 PM EDT) Anaerobic Culture No anaerobic organisms isolated [facility] Specimen from abscess (specimen) THORACIC STRUCTURE / Unknown 12/09/2019 12:34 PM EDT 12/09/2019 2:14 PM EDT Comment:RIGHT POSTERIOR LATE RAL CHEST WALL WOUND #1 Narrative Resulting Agency Comment Spec In Lab Michael Li MD MICROBIOLOGY - GENER AL ORDERABLES Performing Organization Address City/[facility]/ZIP Co de Phone Number [facility] [place] [address] * (ABNORMAL) Abscess/Wound Aspirate Culture (12/09/2019 12:34 PM EDT) Abscess/Wound Aspirate Culture Rare Staphylococcus aureus Susceptibilities previously reported (A) [facility] Gram Stain Few Neutrophils seen No microorganisms seen. (A) [facility] Organism Staphylococcus aureus(A) [facility] Specimen from abscess (specimen) THORACIC STRUCTURE / Unknown 12/09/2019 12:34 PM EDT 12/09/2019 2:14 PM EDT Comment:RIGHT POSTERIOR LATE RAL CHEST WALL WOUND #1 Narrative Resulting Agency Comment Spec In Lab Michael Li MD MICROBIOLOGY - GENER AL ORDERABLES [facility] [place] [address] * AFB culture Other (12/09/2019 12:34 PM EDT) Acid Fast Bacilli Culture No Acid Fast Bacilli isolated [facility] Acid Fast Stain No Acid Fast Bacilli seen [facility] Specimen of unknown material (specimen) 12/09/2019 12:34 PM EDT 12/09/2019 2:15 PM EDT Comment:RIGHT POSTERIOR LATE RAL CHEST WALL WOUND #2 Narrative Resulting Agency Comment Spec In Lab Quentin Carlin MD MICROBIOLOGY - GENER AL ORDERABLES [facility] [place] [address] * Fungus culture Abscess (12/09/2019 12:34 PM EDT) Fungus Culture No Fungus isolated [facility] Specimen from abscess (specimen) 12/09/2019 12:34 PM EDT 12/09/2019 2:15 PM EDT Comment:RIGHT POSTERIOR LATE RAL CHEST WALL WOUND #2 Narrative Resulting Agency Comment Spec In Lab Quentin Carlin MD MICROBIOLOGY - GENER AL ORDERABLES [facility] [place] [address] * AFB culture Other (12/09/2019 12:34 PM EDT) Acid Fast Bacilli Culture No Acid Fast Bacilli isolated [facility] Acid Fast Stain No Acid Fast Bacilli seen [facility] Specimen of unknown material (specimen) 12/09/2019 12:34 PM EDT 12/09/2019 2:14 PM EDT Comment:RIGHT POSTERIOR LATE RAL CHEST WALL WOUND #1 Narrative Resulting Agency Comment Spec In Lab Quentin Carlin MD MICROBIOLOGY - GENER AL ORDERABLES Performing Organization Address City/[facility]/ZIP Co de Phone Number [facility] [place] [address] * Fungus culture Abscess (12/09/2019 12:34 PM EDT) Fungus Culture No Fungus isolated [facility] Specimen from abscess (specimen) 12/09/2019 12:34 PM EDT 12/09/2019 2:14 PM EDT Comment:RIGHT POSTERIOR LATE RAL CHEST WALL WOUND #1 Narrative Resulting Agency Comment Spec In Lab Quentin Carlin MD MICROBIOLOGY - GENER AL ORDERABLES Performing Organization Address City/[facility]/ZIP Co de Phone Number [facility] [place] [address] * (ABNORMAL) Differential, Automated (12/09/2019 5:07 AM EDT) Neutrophil % 65.1 % [facility] Neutrophil Absolute 5.83 1.70 - 6.10 x10(3)/mc L [facility] Lymph % 17.7 % [facility] Lymphocytes Abs 1.6 0.9 - 3.2 x10(3)/mc L [facility] Monocyte % 11.8 % [facility] Monocyte Abs 1.1(H) 0.3 - 0.9 x10(3)/mc L [facility] Eos % 3.5 % [facility] Eosinophils Abs 0.3 0.0 - 0.4 x10(3)/mc L [facility] Basophil % 0.7 % [facility] Baso Absolute 0.1 0.0 - 0.1 x10(3)/mc L [facility] Immature Gran % 1.20 % [facility] Comment: Immature granulocytes(IG's)percentage and absolute count will include metamyelocytes, myelocytes, and promyelocytes. Blood smears from CBCs yielding IG's will be scanned manually for concordance. If this scan disagrees with the automated IG or if promyelocytes are noted, a manual differential will be performed. Immature Gran Absolute 0.11(H) 0.00 - 0.04 x10(3)/[facility] Blood specimen (specimen) 12/09/2019 5:07 AM EDT 12/09/2019 5:24 AM EDT Narrative Resulting Agency Comment Spec In Lab Bill Shelton MD HEMATOLOGY ORDERAB LES [facility] [place] [address] * (ABNORMAL) Hemogram (12/09/2019 5:07 AM EDT) White Blood Cell 9.0 4.0 - 9.5 x10(3)/[facility] Red Blood Cell 5.23 4.58 - 5.54 x10(6)/[facility] Hemoglobin 10.2(L) 13.7 - 16.5 gm/dL [facility] Hematocrit 34.5(L) 40.5 - 48.5 % [facility] Mean Cell Volume 66.0(L) 82.9 - 93.1 fL [facility] Mean Cell Hemoglobin 19.5(L) 27.5 - 32.1 pg [facility] Mean Cell Hemoglobin Concentration 29.6(L) 32.0 - 35.7 gm/dL [facility] Platelet 256 145 - 357 x10(3)/ L [facility] RDW Standard Deviation 39.6 36.0 - 45.0 fL [facility] RDW coefficient of variation 17.1(H) 11.4 - 13.8 % [facility] Mean Platelet Volume 9.8 7.6 - 12.9 fL [facility] NRBC% auto 0.0 % [facility] NRBC Absolute 0.000 0.000 - 0.000 x10(3)/mc L [facility] Blood specimen (specimen) 12/09/2019 5:07 AM EDT 12/09/2019 5:24 AM EDT Narrative Resulting Agency Comment Spec In Lab Bill Shelton MD HEMATOLOGY ORDERAB LES [facility] [place] [address] * COVID-19 PCR (12/08/2019 10:20 PM EDT) SARS-CoV-2 RNA (Rapid) Not Detected Not Detected [facility] Comment: This result should be [...] using the Simplexa COVID-19 Direct Assay by [employer] as authorized by the FDA issued Emergency [...] Department of Pathology and Laboratory Medicine at [facility], certified under the Clinical Laboratory Improvement Amendments [...] Information for Healthcare Professionals (https://www.cdc.gov/coronavirus/2019-ncov/hcp/index.html). SARS-CoV-2 Source [employer] Sw[facility] Nasopharyngeal swab (specimen) 12/08/2019 10:20 PM EDT 12/08/2019 10:57 PM EDT Comment:Symptoms->Surveillan ce Narrative Resulting Agency Comment Spec In Lab Armen Simon MD MICROBIOLOGY - GEN ERAL ORDERABLES [facility] [place] [address] * CT Chest w Contrast (12/08/2019 8:54 PM EDT) Anatomical Region Laterality Modality Chest Computed Tomogra phy Impressions 12/08/2019 9:16 PM EDT 1. ??Right posterior-lateral chest wall defect compatible with known wound, with overlying packing dressing in place. No abscess. 2. ??Postprocedural changes in the right lung with decreased size of the residual cavitary nodular opacities. 3. ??Interval decrease of the now small residual bilateral pleural effusions, with scattered linear atelectasis. Thank you for letting us participate in the care of this patient. For questions regarding this report, please contact the number below. ? Electronically signed by: Dominique Henley [facility] ([phone]), at 12/08/2019 9:16 PM Narrative 12/08/2019 9:16 PM EDT EXAMINATION: CT CHEST W CONTRAST CLINICAL HISTORY: Wound dehiscence ? Additional abscesses/fluid collections near the right thoracotomy incision which had previously been opened up for drainage due to wound infection 64 y.o.?male?with PMH of thymoma and pleural effusion s/p right VATS evac and partial decortication, right posterolateral thoracotomy and resection of anterior right thymoma complicated by surgical site right chest wall abscess s/p washout and wound vac placement, discharged 11/14/2019,?who presents with fever, chills, malaise, and purulent drainage from incisional site TECHNIQUE: 3.75mm thick axial contiguous sections were obtained through the chest via helical acquisition after the intravenous administration of contrast, Administered 60.0 ml of OMNIPAQUE 350.00 mg/ml. Thin-section reconstructions as well as coronal and sagittal reformatted images were generated. COMPARISON: Chest CT from November 09, 2019 FINDINGS: Pulmonary parenchyma: Decreased size of the pleural-based cavitary nodular opacities, 2 in the upper lobe one at the anterolateral right lung with small air-fluid level which now measures approximately 1.5 cm, previously 2.5 cm and a second smaller one at the posterior medial aspect of the right apex which now measures approximately 1 cm, previously also 2 cm. There has been no interval change in the pleural-based nodular opacity along the major fissure, series 5 image 51 or pulmonary nodule at the superior segment of the right lower lobe, series 5 image 52. Postprocedural changes are noted in the right lower lobe with surgical sutures. There are linear opacities within the right middle lingula and bilateral lower lobes. Lung parenchyma is clear. Airways: The central airways are patent. Pleura: There are small layering bilateral pleural effusions, both decreased from comparison study Lymph nodes:No lymphadenopathy. Heart, pericardium, and great vessels: Normal heart size. No pericardial effusion. Normal caliber thoracic aorta. The opacified central pulmonary arteries are without filling defect. Other mediastinal structures: No significant findings. Lower neck: No significant findings. Upper abdomen: Partially visualized bilateral renal cysts are stable. Body wall soft tissues: There is a right posterolateral open chest wall defect compatible with known chest wound. There is overlying packing material in place. No focal abscess. Interval resolution of previously seen seen soft tissue swelling and abscess. Skeletal structures: No interval osseous changes or acute osseous findings. Procedure Note Dominique Henley MD - 12/08/2019 EXAMINATION: CT CHEST W CONTRAST CLINICAL HISTORY: Wound dehiscence ? Additional abscesses/fluid collections near the right thoracotomyincision which had previously been opened up for drainage due to wound infection 64 y.o.?male?with PMH of thymoma and pleural effusion s/p right VATS evacand partial decortication, right posterolateral thoracotomy and resection of anterior right thymoma complicated by surgical site right chest wallabscess s/p washout and wound vac placement, discharged 11/14/2019,?who presents withfever, chills, malaise, and purulent drainage from incisional site TECHNIQUE: 3.75mm thick axial contiguous sections were obtained throughthe chest via helical acquisition after the intravenous administration ofcontrast, Administered 60.0 ml of OMNIPAQUE 350.00 mg/ml. Thin-sectionreconstructions as well as coronal and sagittal reformatted images were generated. COMPARISON: Chest CT from November 09, 2019 FINDINGS: Pulmonary parenchyma: Decreased size of the pleural-based cavitarynodular opacities, 2 in the upper lobe one at the anterolateral right lung withsmall air-fluid level which now measures approximately 1.5 cm, previously 2.5 cmand a second smaller one at the posterior medial aspect of the right apex whichnow measures approximately 1 cm, previously also 2 cm. There has been nointerval change in the pleural-based nodular opacity along the major fissure,series 5 image 51 or pulmonary nodule at the superior segment of the right lowerlobe, series 5 image 52. Postprocedural changes are noted in the right lowerlobe with surgical sutures. There are linear opacities within the right middlelingula and bilateral lower lobes. Lung parenchyma is clear. Airways: The central airways are patent. Pleura: There are small layering bilateral pleural effusions, bothdecreased from comparison study Lymph nodes:No lymphadenopathy. Heart, pericardium, and great vessels: Normal heart size. No pericardial effusion. Normal caliber thoracic aorta. The opacified central pulmonary arteriesare without filling defect. Other mediastinal structures: No significant findings. Lower neck: No significant findings. Upper abdomen: Partially visualized bilateral renal cysts are stable. Body wall soft tissues: There is a right posterolateral open chest walldefect compatible with known chest wound. There is overlying packing material inplace. No focal abscess. Interval resolution of previously seen seen softtissue swelling and abscess. Skeletal structures: No interval osseous changes or acute osseousfindings. IMPRESSION 1. Right posterior-lateral chest wall defect compatible with known wound,with overlying packing dressing in place. No abscess. 2. Postprocedural changes in the right lung with decreased size of theresidual cavitary nodular opacities. 3. Interval decrease of the now small residual bilateral pleuraleffusions, with scattered linear atelectasis. Thank you for letting us participate in the care of this patient. Forquestions regarding this report, please contact the number below. Electronically signed by: Dominique Henley [facility]([phone]), at 12/08/2019 9:16 PM Armen Simon MD IMG CT ORDERABLES * Anaerobic Culture (12/08/2019 8:30 PM EDT) Anaerobic Culture No anaerobic organisms isolated [facility] Specimen from abscess (specimen) STRUCTURE OF BACK OF TRUNK / Unknown 12/08/2019 8:30 PM EDT 12/08/2019 8:46 PM EDT Comment:RIGHT BACK/SHOULDER INCISION Narrative Resulting Agency Comment Spec In Lab Tree Hodge MD MICROBIOLOGY - [facility] ORDERABLES [facility] [place] [address] * (ABNORMAL) Abscess/Wound Aspirate Culture (12/08/2019 8:30 PM EDT) Abscess/Wound Aspirate Culture Many Staphylococcus aureus(A) [facility] Gram Stain Many Neutrophils seen Rare Gram Positive Cocci seen (A) [facility] Organism Staphylococcus aureus(A) [facility] Organism Gram Positive Cocci(A) [facility] Specimen from abscess (specimen) STRUCTURE OF BACK OF TRUNK / Unknown 12/08/2019 8:30 PM EDT 12/08/2019 8:46 PM EDT Comment:RIGHT BACK/SHOULDER INCISION Narrative Resulting Agency Comment Spec In Lab Organism Antibiotic Method Susceptibility Staphylococcus aureus Cefazolin VITEK 2 METHOD Sensitive Staphylococcus aureus Ceftriaxone VITEK 2 METHOD Sensitive Staphylococcus aureus Ciprofloxacin VITEK 2 METHOD Sensitive Staphylococcus aureus Clindamycin VITEK 2 METHOD Sensitive Staphylococcus aureus Erythromycin VITEK 2 METHOD Sensitive Staphylococcus aureus Gentamicin VITEK 2 METHOD Sensitive Comment:Gentamicin i s not appropriate for Potter-therapy. Staphylococcus aureus Levofloxacin VITEK 2 METHOD Sensitive [...] Staphylococcus aureus Vancomycin VITEK 2 METHOD Sensitive Tree Hodge MD MICROBIOLOGY - GENER AL ORDERABLES [facility] [place] [address] * Blood culture (12/08/2019 4:11 PM EDT) Blood Culture No growth at 5 days. [facility] Blood specimen (specimen) 12/08/2019 4:11 PM EDT 12/08/2019 6:22 PM EDT Narrative Resulting Agency Comment Spec In Lab Portillo Trejo MD MICROBIOLOGY - BLOO D ORDERABLES [facility] [place] [address] * Scan, Peripheral Blood (12/08/2019 3:58 PM EDT) Plat estimate Normal [facility] RBC Morphology Abnormal [facility] Microcyte 1-5 /HPF [facility] Hypochromia Slight [facility] Polychromasia Present >5/HPF [facility] Target Cells 1-5 /HPF [facility] Blood specimen (specimen) 12/08/2019 3:58 PM EDT 12/08/2019 5:02 PM EDT Narrative Resulting Agency Comment Spec In Lab Bart CROWELL HEMATOLOGY ORDERABLE S Performing Organization Address City/[facility]/ZIP Co de Phone Number [facility] [place] [address] * Aguilar Tube Hold (12/08/2019 3:58 PM EDT) Aguilar Hold Sample in lab. [facility] Blood specimen (specimen) Venous Draw / Unknown 12/08/2019 3:58 PM EDT 12/08/2019 5:03 PM EDT Bart CROWELL CHEMISTRY ORDERABLES Performing Organization Address City/[facility]/ZIP Co de Phone Number [facility] [place] [address] * Gold Tube HOLD (12/08/2019 3:58 PM EDT) Gold Hold Sample in lab. [facility] Blood specimen (specimen) Venous Draw / Unknown 12/08/2019 3:58 PM EDT 12/08/2019 5:03 PM EDT Bart CROWELL CHEMISTRY ORDERABLES Performing Organization Address City/[facility]/ZIP Co de Phone Number [facility] [place] [address] * Blue Tube HOLD (12/08/2019 3:58 PM EDT) Blue Hold Sample in lab. [facility] Blood specimen (specimen) Venous Draw / Unknown 12/08/2019 3:58 PM EDT 12/08/2019 5:03 PM EDT Bart CROWELL HEMATOLOGY ORDERABLE S [facility] [place] [address] * (ABNORMAL) Differential, Automated (12/08/2019 3:58 PM EDT) Neutrophil % 78.0 % [facility] Neutrophil Absolute 11.28(H) 1.70 - 6.10 x10(3)/[facility] Lymph % 11.5 % [facility] Lymphocytes Abs 1.7 0.9 - 3.2 x10(3)/[facility] Monocyte % 7.9 % [facility] Monocyte Abs 1.1(H) 0.3 - 0.9 x10(3)/[facility] Eos % 0.7 % [facility] Eosinophils Abs 0.1 0.0 - 0.4 x10(3)/[facility] Basophil % 0.6 % [facility] Baso Absolute 0.1 0.0 - 0.1 x10(3)/[facility] Immature Gran % 1.30 % [facility] Comment: Immature granulocytes(IG's)percentage and absolute count will include metamyelocytes, myelocytes, and promyelocytes. Blood smears from CBCs yielding IG's will be scanned manually for concordance. If this scan disagrees with the automated IG or if promyelocytes are noted, a manual differential will be performed. Immature Gran Absolute 0.19(H) 0.00 - 0.04 x10(3)/ L [facility] Blood specimen (specimen) 12/08/2019 3:58 PM EDT 12/08/2019 5:02 PM EDT Narrative Resulting Agency Comment Spec In Lab Bart CROWELL HEMATOLOGY ORDERABLE S [facility] [place] [address] * (ABNORMAL) Hemogram (12/08/2019 3:58 PM EDT) White Blood Cell 14.5(H) 4.0 - 9.5 x10(3)/mc L [facility] Red Blood Cell 6.62(H) 4.58 - 5.54 x10(6)/mc L [facility] Hemoglobin 12.9(L) 13.7 - 16.5 gm/dL [facility] Hematocrit 43.0 40.5 - 48.5 % [facility] Mean Cell Volume 65.0(L) 82.9 - 93.1 fL [facility] Mean Cell Hemoglobin 19.5(L) 27.5 - 32.1 pg [facility] Mean Cell Hemoglobin Concentration 30.0(L) 32.0 - 35.7 gm/dL [facility] Platelet 328 145 - 357 x10(3)/mc L [facility] RDW Standard Deviation 38.8 36.0 - 45.0 fL [facility] RDW coefficient of variation 18.6(H) 11.4 - 13.8 % [facility] Mean Platelet Volume 10.1 7.6 - 12.9 fL [facility] NRBC% auto 0.0 % [facility] NRBC Absolute 0.000 0.000 - 0.000 x10(3)/mc L [facility] Blood specimen (specimen) 12/08/2019 3:58 PM EDT 12/08/2019 5:02 PM EDT Narrative Resulting Agency Comment Spec In Lab Bart CROWELL HEMATOLOGY ORDERABLE S [facility] [place] [address] * (ABNORMAL) Sedimentation rate (12/08/2019 3:58 PM EDT) Sedimentation Rate Automated >119(H) 2 - 37 mm/hr [facility] Comment: Effective March 19, 2019 new capillary photometric technology has resulted in a change in reference ranges. It is recommended that each ESR result be reviewed with its own age appropriate reference range. Blood specimen (specimen) 12/08/2019 3:58 PM EDT 12/08/2019 5:02 PM EDT Narrative Resulting Agency Comment Spec In Lab Portillo Trejo MD HEMATOLOGY ORDERABL ES Performing Organization Address [facility] Co de Phone Number [facility] [place] [address] * (ABNORMAL) CRP, acute inflammation (12/08/2019 3:58 PM EDT) [facility] C-Reactive Protein 134.3(H) <=4.9 mg/L [facility] Blood specimen (specimen) 12/08/2019 3:58 PM EDT 12/08/2019 5:02 PM EDT Narrative Resulting Agency Comment Spec In Lab Portillo Trejo MD CHEMISTRY ORDERABLE S Performing Organization Address [facility] Co de Phone Number [facility] [place] [address] * (ABNORMAL) Basic Metabolic Panel (non-fasting) (12/08/2019 3:58 PM EDT) Glucose 115 65 - 199 mg/dL [facility] Comment:Diabetes: >=200 mg/d L plus symptoms Blood Urea Nitrogen 11 10 - 20 mg/dL [facility] Creatinine 0.83 0.80 - 1.50 mg/dL [facility] Sodium 136 135 - 145 mmol/L [facility] Potassium 4.0 3.5 - 5.0 mmol/L [facility] Comment: Please note: ??Patients with WBC >100,000 may have falsely elevated Potassium levels. ??For accurate Potassium quantification in these patients send serum separator tube (gold top) for subsequent determinations. ??Contact the Clinical Chemistry Laboratory if there are any questions. Chloride 95(L) 98 - 107 mmol/L [facility] Carbon Dioxide 27 22 - 31 mmol/L [facility] Anion Gap 14 5 - 15 mmol/L [facility] Calcium 9.7 8.5 - 10.5 mg/dL [facility] Est Glomerular Filtration Rate 92 >=60 mL/min/1. 73 m?? [facility] Comment: The eGFR was calculated using the CKD-EPI equation. As with all creatinine based estimates of kidney function, eGFR values calculated with the CKD-EPI equation are not accurate in patients with acute kidney failure, extremes of body mass or the acutely ill. [email or web address] eGFR 107 >=60 mL/min/1. 73 m?? [facility] Comment: The eGFR was calculated using the CKD-EPI equation. As with all creatinine based estimates of kidney function, eGFR values calculated with the CKD-EPI equation are not accurate in patients with acute kidney failure, extremes of body mass or the acutely ill. [email or web address] [place] Blood specimen (specimen) 12/08/2019 3:58 PM EDT 12/08/2019 5:02 PM EDT Narrative Resulting Agency Comment Spec In Lab Portillo Trejo MD CHEMISTRY ORDERABLE S [facility] [place] [place] [address] documented in this encounter Visit Diagnoses Not on filedocumented in this encounter Admitting Diagnoses Diagnosis Open wound of right chest wall with complication documented in this encounter Administered Medications Inactive Administered Medications - up to 3 most recent administrations Medication Order MAR Action Action Date Dose Rate Site acetaminophen (Tylenol) tablet 1,000 mg 1,000 mg, Oral, ONCE, 1 dose, On Sun12/08/19 at 1416, Maximum dose of acetaminophen is 4000 mg from all sources in 24 hours. When ordered for pain, acetaminophen should be given even when other ordered pain medications are indicated. , STAT Given 12/08/2019 2:16 PM EDT 1,000 mg acetaminophen (Tylenol) tablet 1,000 mg 1,000 mg, Oral, EVERY 6 HOURS PRN, Starting on Sun12/08/19 at 2242, Until Sun12/09/19 at 1349, Pain, Maximum dose of acetaminophen is 4000 mg from all sources in 24 hours. When ordered for pain, acetaminophen should be given even when other ordered pain medications are indicated. , Routine Given 12/09/2019 9:34 AM EDT 1,000 mg Given 12/09/2019 1:31 AM EDT 1,000 mg acetaminophen (Tylenol) tablet 650 mg 650 mg, Oral, EVERY 6 HOURS PRN, Starting on Sun12/09/19 at 1349, Until Sun12/09/19 at 2225, Pain, Maximum dose of acetaminophen is 4000 mg from all sources in 24 hours. When ordered for pain, acetaminophen should be given even when other ordered pain medications are indicated. , Routine Given 12/09/2019 6:43 PM EDT 650 mg BUpivacaine (PF) (MARCAINE) 0.5 % (5 mg/mL) injection ONCE PRN, Starting on Sun12/09/19 at 1330, Until Sun12/09/19 at 2225, Intra-Operative (Intra-Procedure), Routine Given 12/09/2019 1:30 PM EDT 16 mLs 19- Surgical Site docusate sodium (Colace) capsule 100 mg 100 mg, Oral, 2 TIMES DAILY, First dose on Sun12/09/19 at 2100, Until Discontinued, Routine ibuprofen (Advil;Motrin) tablet 600 mg 600 mg, Oral, EVERY 6 HOURS PRN, Starting on Sun12/08/19 at 2242, Until Sun12/09/19 at 2225, Pain, Administer orally with milk or food to minimize GI irritation. Maximum dose of 3200 mg from all sources in 24 hours, Routine Given 12/09/2019 6:43 PM EDT 600 mg iohexoL (OMNIPAQUE) 350 mg/mL solution 0-200 mL 0-200 mL, Intravenous, ONCE PRN, 1 dose, Starting on Sun12/08/19 at 2046, Until Sun12/08/19 at 205, Per Protocol, Warning Vesicant/Irritant Medication , Radiology Contrast, Routine Given 12/08/2019 8:53 PM EDT 60 mLs lactated Ringers 1,000 mL IV bolus at 2,000 mL/hr, Intravenous, ONCE, 1 dose, On Sun12/08/19 at 1558 New Bag 12/08/2019 3:58 PM EDT 2000 mL/hr oxyCODONE (Roxicodone) tablet 5 mg 5 mg, Oral, ONCE, 1 dose, On Sun12/09/19 at 0230, Routine Given 12/09/2019 2:22 AM EDT 5 mg oxyCODONE (Roxicodone) tablet 5 mg 5 mg, Oral, EVERY 6 HOURS PRN, Starting on Sun12/09/19 at 1143, Until Sun12/09/19 at 2225, Pain, Routine Given 12/09/2019 2:03 PM EDT 5 mg Pharmacist-Managed Order As Instructed, DAILY, First dose on Sun12/09/19 at 0900, Until Discontinued, Pharmacy has been consulted to manage vancomycin therapy. Discontinuation of this order will discontinue the consultation. Do not use this MAR entry to document medication administration actively., Pharmacist-Managed Medication: Vancomycin piperacillin-tazobactam (ZOSYN) 3.375 g vial attach to sodium chloride 0.9% 50 mL Mini-Bag Plus 3.375 g, Intravenous, EVERY 8 HOURS SCHEDULED, First dose on Sun12/08/19 at 2330, Until Discontinued, Administer over 4 Hours, Warning Vesicant/Irritant Medication Do not administer or Y-site with lactated ringers., Indication for (Active or Suspected): Skin/Skin Structure New 12/09/2019 9:33 AM EDT 3.375 g 12.5 mL/hr New 12/09/2019 2:21 AM EDT 3.375 g 12.5 mL/hr piperacillin-tazobactam (ZOSYN) 4.5 g vial attach to sodium chloride 0.9% 100 mL Mini-Bag Plus 4.5 g, Intravenous, ONCE, 1 dose, On Sun12/08/19 at 1558, Administer over 0.5 Hours, Warning Vesicant/Irritant Medication Do not administer or Y-site with lactated ringers., Indication for (Active or Suspected): Skin/Skin Structure New Bag 12/08/2019 3:58 PM EDT 4.5 g 200 mL/hr senna (Senokot) tablet 17.2 mg 17.2 mg, Oral, 2 TIMES DAILY PRN, Starting on Sun12/09/19 at 1634, Until Sun12/09/19 at 2225, Constipation, Routine sodium chloride 0.9 % (flush) flush 5 mL 5 mL, Intravenous, 2 TIMES DAILY, First dose on Sun12/08/19 at 2330, Until Discontinued, Recovery (Recovery-Hospital Unit), Routine Given 12/09/2019 9:33 AM EDT 5 mLs Given 12/08/2019 11:57 PM EDT 5 mLs vancomycin 1.25 g sodium in chloride 0.9% 250 mL 1,250 mg, Intravenous, at 200 mL/hr, EVERY 12 HOURS, First dose on Sun12/09/19 at 1200, Until Discontinued, Maximum infusion rate is 1 gram/hour. If flushing of the face, neck, upper body, arms, and/or back occurs decrease infusion rate by 50% to reduce the severity of symptoms. This medication may have an associated drug lab level. Please see MAR for scheduled level. Warning Vesicant/Irritant Medication , Routine New Bag 12/09/2019 5:15 PM EDT 1,250 mg 200 mL/hr vancomycin 2 g in sodium chloride 0.9% 500 mL 2 g, Intravenous, at 250 mL/hr, ONCE, 1 dose, On Sun12/08/19 at 2345, Maximum infusion rate is 1 gram/hour. If flushing of the face, neck, upper body, arms, and/or back occurs decrease infusion rate by 50% to reduce the severity of symptoms. This medication may have an associated drug lab level. Please see MAR for scheduled level. Warning Vesicant/Irritant Medication , Routine New Bag 12/08/2019 11:55 PM EDT 2 g 250 mL/hr Vancomycin Level - MAR Order Reminder NOT APPLICABLE, PER PHARMACY, Other, Starting on Sun12/08/19 at 2248, Until Sun12/09/19 at 2225, This alert will be scheduled by a pharmacist after order placement. This order is a reminder to nursing staff to release and draw the PRN drug level at the specified time. It may be necessary to contact phlebotomy 60 minutes prior to the scheduled due time to assure a timely blood draw. documented in this encounter Active and Recently Administered Medications Times are shown in EDT. Scheduled Medication Order 12/07/2019 12/08/2019 12/09/2019 acetaminophen (Tylenol) tablet 1,000 mg (COMPLETED) 1,000 mg, Oral, ONCE, 1 dose, On Sun12/08/19 at 1416, Maximum dose of acetaminophen is 4000 mg from all sources in 24 hours. When ordered for pain, acetaminophen should be given even when other ordered pain medications are indicated. , STAT 1416 (Given - Provider: Renato Sheth) docusate sodium (Colace) capsule 100 mg 100 mg, Oral, 2 TIMES DAILY, First dose on Sun12/09/19 at 2100, Until Discontinued, Routine enoxaparin (LOVENOX) injection 40 mg 40 mg, Subcutaneous, NIGHTLY, First dose on Sun12/09/19 at 2100, Until Discontinued, Routine 1145 (MAR Hold - Provider: Admin Adt - Reason: Transfer to a Procedural area)1527 (MAR Unhold - Provider: Admin Adt) lactated Ringers 1,000 mL IV bolus at 2,000 mL/hr, Intravenous, ONCE, 1 dose, On Sun12/08/19 at 1414 1414 (Due) lactated Ringers 1,000 mL IV bolus (COMPLETED) at 2,000 mL/hr, Intravenous, ONCE, 1 dose, On Sun12/08/19 at 1558 1558 (New Bag - Provider: Renato Sheth)1628 (Stopped - Provider: Renato Sheth) oxyCODONE (Roxicodone) tablet 5 mg (COMPLETED) 5 mg, Oral, ONCE, 1 dose, On Sun12/09/19 at 0230, Routine 0222 (Given - Provid er: Norma Contreras RN) Pharmacist-Managed Order(Linked Group 1) As Instructed, DAILY, First dose on Sun12/09/19 at 0900, Until Discontinued, Pharmacy has been consulted to manage vancomycin therapy. Discontinuation of this order will discontinue the consultation. Do not use this MAR entry to document medication administration actively., Pharmacist-Managed Medication: Vancomycin 0900 (Due)1145 (MAR Hold - Provider: Admin Adt - Reason: Transfer to a Procedural area)1527 (MAR Unhold - Provider: Admin Adt) piperacillin-tazobactam (ZOSYN) 3.375 g vial attach to sodium chloride 0.9% 50 mL Mini-Bag Plus 3.375 g, Intravenous, EVERY 8 HOURS SCHEDULED, First dose on Sun12/08/19 at 2330, Until Discontinued, Administer over 4 Hours, Warning Vesicant/Irritant Medication Do not administer or Y-site with lactated ringers., Indication for (Active or Suspected): Skin/Skin Structure 0221 (New Bag - Provider: Norma Contreras RN)0621 (Stopped - Provider: Norma Contreras RN)0933 (New Bag - Provider: Eva Prater, EVER)1143 (Handoff - Provider: Emmie Barcenas)1145 (JUN Hold - Provider: Admin Adt - Reason: Transfer to a Procedural area)1318 (Stopped - Provider: Quentin Aranda CRNA)1400 (Automatically Held - Provider: Admin Adt)1527 ([facility] Unhold - Provider: Admin Adt) piperacillin-tazobactam (ZOSYN) 4.5 g vial attach to sodium chloride 0.9% 100 mL Mini-Bag Plus (COMPLETED) 4.5 g, Intravenous, ONCE, 1 dose, On Sun12/08/19 at 1558, Administer over 0.5 Hours, Warning Vesicant/Irritant Medication Do not administer or Y-site with lactated ringers., Indication for (Active or Suspected): Skin/Skin Structure 1558 (New Bag - Provider: Renato T Head)1628 (Stopped - Provider: Renato T Head) sodium chloride 0.9 % (flush) flush 5 mL 5 mL, Intravenous, 2 TIMES DAILY, First dose on Sun12/08/19 at 2330, Until Discontinued, Recovery (Recovery-Hospital Unit), Routine 2357 (Given - Provider: Norma Contreras RN) 0933 (Given - Provider: Eva Prater, EVER) vancomycin 1.25 g sodium in chloride 0.9% 250 mL 1,250 mg, Intravenous, at 200 mL/hr, EVERY 12 HOURS, First dose on Sun12/09/19 at 1200, Until Discontinued, Maximum infusion rate is 1 gram/hour. If flushing of the face, neck, upper body, arms, and/or back occurs decrease infusion rate by 50% to reduce the severity of symptoms. This medication may have an associated drug lab level. Please see MAR for scheduled level. Warning Vesicant/Irritant Medication , Routine 1145 (MAR Hold - Provider: Admin Adt - Reason: Transfer to a Procedural area)1200 (Automatically Held - Provider: Admin Adt)1527 (MAR Unhold - Provider: Admin Adt)1715 (New Bag - Provider: Eva Prater RN)1830 (Due: Stopped - Provider: Eva Prater RN) vancomycin 2 g in sodium chloride 0.9% 500 mL (COMPLETED)(Linked Group 2) 2 g, Intravenous, at 250 mL/hr, ONCE, 1 dose, On Sun12/08/19 at 2345, Maximum infusion rate is 1 gram/hour. If flushing of the face, neck, upper body, arms, and/or back occurs decrease infusion rate by 50% to reduce the severity of symptoms. This medication may have an associated drug lab level. Please see MAR for scheduled level. Warning Vesicant/Irritant Medication , Routine 2355 (New Bag - Provider: Norma Contreras RN) 0155 (Stopped - Provider: Norma Contreras RN) PRN Medication Order 12/07/2019 12/08/2019 12/09/2019 acetaminophen (Tylenol) tablet 1,000 mg (CANCELED) 1,000 mg, Oral, EVERY 6 HOURS PRN, Starting on Sun12/08/19 at 2242, Until Sun12/09/19 at 1349, Pain, Maximum dose of acetaminophen is 4000 mg from all sources in 24 hours. When ordered for pain, acetaminophen should be given even when other ordered pain medications are indicated. , Routine 0131 (Given - Provid er: Norma Contreras RN)0934 (Given - Provider: Eva Prater RN)1145 (MAR Hold - Provider: Admin Adt - Reason: Transfer to a Procedural area)1349 ([facility] Unhold - Provider: Darren Bennett MD) acetaminophen (Tylenol) tablet 650 mg 650 mg, Oral, EVERY 6 HOURS PRN, Starting on Sun12/09/19 at 1349, Until Sun12/09/19 at 2225, Pain, Maximum dose of acetaminophen is 4000 mg from all sources in 24 hours. When ordered for pain, acetaminophen should be given even when other ordered pain medications are indicated. , Routine 184 (Given - Provid er: Eva Prater RN) BUpivacaine (PF) (MARCAINE) 0.5 % (5 mg/mL) injection (CANCELED) ONCE PRN, Starting on Sun12/09/19 at 1330, Until Sun12/09/19 at 2225, Intra-Operative (Intra-Procedure), Routine 1330 (Given - Provid er: Michael Li MD) ibuprofen (Advil;Motrin) tablet 600 mg 600 mg, Oral, EVERY 6 HOURS PRN, Starting on Sun12/08/19 at 2242, Until Sun12/09/19 at 2225, Pain, Administer orally with milk or food to minimize GI irritation. Maximum dose of 3200 mg from all sources in 24 hours, Routine 1145 (JUN Hold - Provider: Admin Adt - Reason: Transfer to a Procedural area)1349 ([facility] Unhold - Provider: Judy Banks RN)184 (Given - Provider: Eva Prater RN) iohexoL (OMNIPAQUE) 350 mg/mL solution 0-200 mL (COMPLETED) 0-200 mL, Intravenous, ONCE PRN, 1 dose, Starting on Sun12/08/19 at 2046, Until Sun12/08/19 at 2052, Per Protocol, Warning Vesicant/Irritant Medication , Radiology Contrast, Routine 2052 (Given - Provider: Crystal Nova) lidocaine (XYLOCAINE) 10 mg/mL (1 %) injection 3 mg 3 mg (0.3 mL), Subcutaneous, ONCE PRN, 1 dose, Starting on Sun12/08/19 at 2242, Until Sun12/09/19 at 2225, for discomfort with PIV insertion, Recovery (Recovery-Hospital Unit), Routine oxyCODONE (Roxicodone) tablet 5 mg 5 mg, Oral, EVERY 6 HOURS PRN, Starting on Sun12/09/19 at 1143, Until Sun12/09/19 at 2225, Pain, Routine 1145 (JUN Hold - Provider: Admin Adt - Reason: Transfer to a Procedural area)1403 (Given - Provider: Judy Banks RN)1527 (MAR Unhold - Provider: Admin Adt) senna (Senokot) tablet 17.2 mg 17.2 mg, Oral, 2 TIMES DAILY PRN, Starting on Sun12/09/19 at 1634, Until Sun12/09/19 at 2225, Constipation, Routine sodium chloride 0.9 % (flush) flush 5-20 mL 5-20 mL, Intravenous, EVERY 1 MIN PRN, Starting on Sun12/08/19 at 2242, Until Sun12/09/19 at 2225, flush, Flush pertains to all indwelling lines. Flush per protocol found in the job aid using the link provided on this medication record., Recovery (Recovery-Hospital Unit), Routine Vancomycin Level - [facility] Order Reminder(Linked Group 2) NOT APPLICABLE, PER PHARMACY, Other, Starting on Sun12/08/19 at 2248, Until Sun12/09/19 at 2225, This alert will be scheduled by a pharmacist after order placement. This order is a reminder to nursing staff to release and draw the PRN drug level at the specified time. It may be necessary to contact phlebotomy 60 minutes prior to the scheduled due time to assure a timely blood draw. 1145 (MAR Hold - Provider: Admin Adt - Reason: Transfer to a Procedural area)1527 (MAR Unhold - Provider: Admin Adt) Linked Groups Order Group 1: Pharmacist-Managed OrderJump to med As Instructed, DAILY, First dose on Sun12/09/19 at 0900, Until Discontinued, Pharmacy has been consulted to manage vancomycin therapy. Discontinuation of this order will discontinue the consultation. Do not use this MAR entry to document medication administration actively., Pharmacist-Managed Medication: Vancomycin And Consult to Pharmacy (CANCELED) Routine, Pharmacist-Managed Medication: Vancomycin, Pharmacy to review patient meds? No, Check for drug interactions? No, Reason for Consult? Pharmacist managed vancomycin, Indication: recurrent right chest wall postop infection Last Vancomycin dose received: None given And Vancomycin, trough (CANCELED) New collection, Timed, PRN, Starting on Sun12/08/19 at 2242, Until Specified Group 2: vancomycin 2 g in sodium chloride 0.9% 500 mL (COMPLETED)Jump to med 2 g, Intravenous, at 250 mL/hr, ONCE, 1 dose, On Sun12/08/19 at 2345, Maximum infusion rate is 1 gram/hour. If flushing of the face, neck, upper body, arms, and/or back occurs decrease infusion rate by 50% to reduce the severity of symptoms. This medication may have an associated drug lab level. Please see JUN for scheduled level. Warning Vesicant/Irritant Medication , Routine And Vancomycin Level - MAR Order ReminderJump to med NOT APPLICABLE, PER PHARMACY, Other, Starting on Sun12/08/19 at 2248, Until Sun12/09/19 at 2225, This alert will be scheduled by a pharmacist after order placement. This order is a reminder to nursing staff to release and draw the PRN drug level at the specified time. It may be necessary to contact phlebotomy 60 minutes prior to the scheduled due time to assure a timely blood draw. documented in this encounter Care Teams Propellant Assembler Relationship Specialty Start Date End Date Christiana Moore APRN [address] [place] [address] PCP - General Family Medicine 09/26/19 documented as of this encounter
--- OUTSIDE RECORDS SUMMARY | 2023-11-12 02:16 | XMS_ITS | Encounter Summary ---
Author Organization [facility] [place] [address] Care Team Providers Care Certified Retinal Angiographer Name Role Phone Christiana Moore APRN Primary Care Provider [phone] Reason for Visit * Reason Comments Follow-up Encounter Details Date Type Department Care Team (Late st Contact Info) Description 11/25/2019 10:30 AM EDT Office [place] [address] Bella Arteaga APRN [facility] [address] [place] [address] Surgical site infection; Encounter for surgical wound dressing change Social History Tobacco Use Types Packs/Day Years [...] Sign Reading Time Taken Comments Blood Pressure 125/84 11/25/2019 10:12 AM EDT Pulse 95 11/25/2019 10:12 AM EDT Temperature 37 ??C (98.6 ??F) 11/25/2019 10:12 AM EDT Respiratory Rate 18 11/25/2019 10:12 AM EDT Oxygen Saturation 98% 11/25/2019 10:12 AM EDT Inhaled Oxygen Concentration - - Weight - - Height - - Body Mass Index - - documented in this encounter Progress Notes * Bella Arteaga APRN - 11/25/2019 10:30 AM EDT Thoracic Surgery Associate Provider Outpatient Follow Up Note Bella Arteaga APRN [place] [address] FAX: Pre Op Dx: mediastinal mass Post Op Dx: Thymoma Procedure (10/24/19): Bronchoscopy, right VATS with evacuation of pleural fluid and partial decortication, right thoracotomy with resection of anterior mediastinal mass, wedge resection x5 of the right lung Pathology (10/24/19): Thymoma, type A, wedge resection with benign lymph nodes Procedure (11/09/19): Right thoracotomy incision I&D and wound vac placement Complications: Surgical site infection Treatment: wound vac changes per VNA, surveillance for thymoma HPI: Tree Lantigua is a 64 y.o. male who is s/p Right thoracotomy, partial decortication, resection of anterior mediastinal mass on 10/24/19 for a thymoma. He represented to the hospital on 11/09/19 with a Right thoracotomy surgical site infection and is now s/p I&D of the Right thoracotomy incision with wound vac placement on 11/09/19. He presents today in clinic for a wound vac change. He reports fatigue but is keeping busy activities around the house. He denies f/c/n/v/SOB/CP. He is scheduled to complete his antibiotics tomorrow. His appetite is good and he is eating well. He does report pain at night when he sleeps for which he is taking Tylenol and Motrin. He does take oxycodone for peng n with his wound vac changes in addition to Tylenol and Motrin. The [facility]NA has been changing the vac and per his report has been decreasing the size of the sponge every other change. Medications: Current Outpatient Medications on File Prior to Visit Medication Sig Dispense Refill ??? ibuprofen (Advil;Motrin) 200 mg Tablet Take 3 tablets by mouth every 6 hours. ??? sulfamethoxazole-trimethoprim DS (Bactrim DS) 800-160 mg Tablet Take 1 tablet by mouth 2 times daily for 12 days. 24 tablet 0 ??? oxyCODONE (Roxicodone) 5 mg Tablet Take 1 tablet by mouth every 6 hours as needed for Pain (forpain not controlled by Tylenol and Motrin). 10 tablet 0 ??? acetaminophen (Tylenol) 500 mg Tablet Take 2 tablets by mouth every 6 hours. 30 tablet 0 ??? senna (Senokot) 8.6 mg Tablet Take 2 tablets by mouth every evening. 60 tablet 0 ??? [] docusate sodium (Colace) 100 mg Capsule Take 1 capsule by mouth 2 times daily for 10 days. 20 capsule 0 No current facility-administered medications on file prior to visit. Physical Exam: BP 125/84 (Patient Position: Sitting) Pulse 95 Temp 37 ??C (98.6 ??F) (Temporal) Resp 18 SpO2 98% General Appearance: Alert, cooperative, no distress, appears stated age Nk: Supple, symmetrical, trachea midline Lungs: Clear to auscultation bilaterally, respirations unlabored, no wheezes, crackles or ronchi. Heart: Regular rate and rhythm, S1 and S2 normal, no murmur, rub, or gallop Abdomen: Soft, non-tender, bowel sounds active all four quadrants, no masses, no organomegaly Extremities: Extremities normal, atraumatic, no cyanosis or edema Wound/Incision: Wound vac removed, superior aspect of incision with healthy pink granulation tissue, no evidence of infection such as purulent drainage, swelling, or redness Imaging: I have independently visualized the following studies: No new imaging Assessment: Tree Lantigua is a 64 y.o. male s/p Right thoracotomy, partial decortication, resection of anterior mediastinal mass on 10/24/19 for a thymoma. He is now s/p I&D of the Right thoracotomy incisionwith wound vac placement on 11/09/19. His wound appears to be decreasing in size . Plan: 1. Prescribe oxycodone refill for pain during wound vac changes 2. Continue wound vac changes at home per the VNA 3. RTC in 2 weeks for a wound vac change 4. Encourage daily exercise for 30 minutes 5. Call with any questions or concerns Bella Arteaga APRN 11/25/2019 Thoracic Surgery [facility] documented in this encounter Plan of Treatment Not on file documented as of this encounter Visit Diagnoses Diagnosis Surgical site infection Encounter for surgical wound dressing change documented in this encounter Care Teams Certified Retinal Angiographer Relationship Specialty Start Date End Date Christiana Moore APRN [address] [place] [address] PCP - General Family Medicine 09/26/19 documented as of this encounter
--- OUTSIDE RECORDS SUMMARY | 2023-11-12 02:16 | XMS_ITS | Encounter Summary ---
Author Organization [facility] [place] [address] Care Team Providers Care Aircraft Launch And Recovery Technician Name Role Phone Christiana Moore APRN Primary Care Provider [phone] Encounter Details Date Type Department Care Team (Late st Contact Info) Description 12/04/2019 Telephone [place] [id number] Clement Damon MD [facility] [place] [address] Social History Tobacco Use Types Packs/Day Years [...] encounter Miscellaneous Notes * Telephone Encounter - Clement Damon MD - 12/04/2019 2:31 PM EDT Refill per dr. Carlin see refill note (did not work as a refill encounter) documented in this encounter Plan of Treatment Not on file documented as of this encounter Visit Diagnoses Not on filedocumented in this encounter Care Teams Aircraft Launch And Recovery Technician Relationship Specialty Start Date End Date Christiana Moore APRN [address] [place] [address] PCP - General Family Medicine 09/26/19 documented as of this encounter
--- OUTSIDE RECORDS SUMMARY | 2023-11-12 02:16 | XMS_ITS | Encounter Summary ---
Author Organization [facility] [address] Care Team Providers Care Rug Cutter Helper Name Role Phone Christiana Moore APRN Primary Care Provider [phone] Reason for Visit * Reason Onset Date Comments Medication Refill 12/03/2019 Medication Refill 12/04/2019 Encounter Details Date Type Department Care Team (Late st Contact Info) Description 12/03/2019 Refill [place] [address] Clement Damon MD [facility] [place] [address] Social History Tobacco Use Types Packs/Day Years [...] on filedocumented in this encounter Care Teams Rug Cutter Helper Relationship Specialty Start Date End Date Christiana Moore APRN [address] [place] [address] PCP - General Family Medicine 09/26/19 documented as of this encounter
--- OUTSIDE RECORDS SUMMARY | 2023-11-12 02:16 | XMS_ITS | Encounter Summary ---
Author Organization [facility] [place] [address] Care Team Providers Care Picking Belt Operator Name Role Phone Christiana Moore APRN Primary Care Provider [phone] Encounter Details Date Type Department Care Team (Late st Contact Info) Description 12/04/2019 Orders [place] [address] Bella Arteaga V PLANNING SUPERVISOR [facility] [place] [address] Social History Tobacco Use Types Packs/Day Years [...] on filedocumented in this encounter Care Teams Picking Belt Operator Relationship Specialty Start Date End Date Christiana Moore APRN [address] [place] [address] PCP - General Family Medicine 09/26/19 documented as of this encounter
--- OUTSIDE RECORDS SUMMARY | 2023-11-12 02:16 | XMS_ITS | Encounter Summary ---
[place] [address] Care Team Providers Care Java Portal Developer Name Role Phone Christiana Moore APRN Primary Care Provider [phone] Encounter Details Date Type Department Care Team (Late st Contact Info) Description 12/11/2019 Telephone [place] [id number] Monica Price, RN Social History Tobacco Use Types Packs/Day [...] on filedocumented in this encounter Care Teams Java Portal Developer Relationship Specialty Start Date End Date Christiana Moore APRN [address] [place] [address] PCP - General Family Medicine 09/26/19 documented as of this encounter
--- OUTSIDE RECORDS SUMMARY | 2023-11-12 02:16 | XMS_ITS | Encounter Summary ---
Author Organization [facility] [place] [address] Care Team Providers Care Conche Operator Name Role Phone Oscar Christiana RYAN Primary Care Provider [phone] Reason for Visit * Reason Comments Wound Check * Auth/Cert Specialty Diagnoses / Procedures Referred By Contac t Referred To Contact Diagnoses Chest wall abscess Open wound of right chest wall with complication wound vac filled with puss Procedures EMERGENCY OBSVO Referral ID Status Reason Start Date Expiration Date Visits Re quested Visits Authorized [id number] 1 1 Encounter Details Date Type Department Care Team (Late st Contact Info) Description 12/08/2019 3:53 PM EDT - 12/09/2019 8:20 PM EDT Emergency [address] [place] [address] Armen Simon MD [facility] [place] [address] Quentin Carlin MD [facility] [address] Chest wall abscess; Open wound of right chest wall with complication, initial encounter Discharge Disposition: Home with VNA Social History [...] Sign Reading Time Taken Comments Blood Pressure 108/77 12/09/2019 3:30 PM EDT Pulse 90 12/09/2019 3:30 PM EDT Temperature 36.4 ??C (97.5 ??F) 12/09/2019 3:30 PM ED T Respiratory Rate 18 12/09/2019 3:30 PM EDT Oxygen Saturation 94% 12/09/2019 3:30 PM EDT Inhaled Oxygen Concentration - - [...] Hospital Course: Tree Lantigua was admitted to [facility] on 12/08/2019 viathe ED. He was [...] a nurse in the Thoracic Clinic at [phone]. After hours or on weekends or holidays please call: [phone] and ask to speak to the Thoracic Surgeon on c all. Medication: Bactrim and oxycodone was sent to [facility]. Exercise & Activity Level: As you recover [...] the Thoracic Clinic or the Thoracic Surgeon aeronautical test engineer after hours. Please take over the counter [...] Referral to Home Health - at DISCHARGE [[id number] CPT(R)] As directed Process Instructions: Scheduling Instructions: Comments: DOCUMENTATION FOR VNA SERVICES (INCLUDING THOSE PATIENTS WITH MEDICARE COVERAGE REQUIRING HOME VNA SERVICES AND/OR HOSPICE SERVICES) PATIENT'S LOCATION: Tree Lantigua ? [address] [place] [id number] (home) ?? Cell: Telephone Information: Mobile ?[phone] Field Contact Technician's Name: Self In discussion with the attending physician, it is certified that this patient is under their care and that they, or a Nurse Practitioner,Clinical Nurse specialist or Physician Insurance Processing Clerk who is working directly with them, had [...] (Per pt - should be at the [facility] clinic on for MD review) VAC Therapy [...] VAC dressing. ?? HOME HEALTH CARE AGENCY: [facility] ?? PHONE: [phone] FAX: [phone] Start of care: 24 to 48 hours [...] APRN ? [address] / [place] [address] ?[phone] All VNA agencies which cover the area of patient's residence have been reviewed, either verbally carmel writing, and patient/family have chosen the home health care agency noted Questions: Agency name and contact information: [facility] Patient location post discharge: home What services are requested: Registered Nurse Start date: Responsible MD post discharge contact info: Surgery services and PCP Provider Contact Information: Primary Care Provider: Christiana Moore APRN [phone] Discharge References/Attachments: Discharge References/Attachments None For questions [...] a nurse in the Thoracic Clinic at [phone]. After hours or on weekends or holidays please call: [phone] and ask to speak to the Thoracic Surgeon on c all. Medication: Bactrim and oxycodone was sent to [facility]. Exercise & Activity Level: As you recover [...] the Thoracic Clinic or the Thoracic Surgeon aeronautical test engineer after hours. Please take over the counter [...] vehicle at ~1900. DC summary faxed to [facility]. * Beena Dubose RN - 12/09/2019 6:26 PM EDTSummary: VNA ED RN/CM notified that patient is medically ready for discharge home with VNA services and WOUND VAC. He has the portable WOUND VAC with him. Spouse to drive him home. Wants to use the same agency he had: Patient requests referral to: [facility] PHONE: [phone] FAX: [phone] Expected date of discharge: 12/09/2019 Referral routed to the Vp for matching with agency/vendor and to provide any required informationKathia Dubose RN (Jonas) ED RN/CM Cellphone: [phone] * Clement Damon MD - 12/09/2019 5:05 PM EDT [facility] Department of Thoracic Surgery Inpatient Post Op Check Note Patient Name: Tree Lantigua Patient : [id number] Patient Patient Location: [address] [place] [address] Attending Surgeon: ARMEN SIMON DAVID J ID: [...] to Hosp-Admission (Current) from 12/08/2019 in [facility] ED to Hosp-Admission (Discharged) from 11/09/[address] [place] [address] Weight 77.1 kg (170 lb) 1 12/08/2019 [...] Damon MD 12/09/2019 Thoracic Surgery Service Pager [phone] * Clement Damon MD - 12/09/2019 8:47 AM EDT [facility] Department of Thoracic Surgery Inpatient Progress Note Patient Name: Tree Lantigua Patient : 1955 Patient Patient Location: [address] [place] [address] Attending Surgeon: ARMEN SIMON DAVID J ID: [...] to Hosp-Admission (Current) from 12/08/2019 in [facility] ED to Hosp-Admission (Discharged) from 11/09/2019 in [facility] Weight 77.1 kg (170 [...] Damon MD 12/09/2019 Thoracic Surgery Service Pager [phone] * Norma Contreras RN - 12/08/2019 11:50 PM EDT Pt arrived to the floor around 2230. AAOx4. VSS. Pt oriented to unit, room, and staff. NPO at midnight for possible OR in morning. See DocFlow for assessment. Will continue to monitor. Report received from ED, RN. documented in this encounter H&P Notes * Tree Hodge MD - 12/08/2019 8:34 PM EDT [facility] Department of Thoracic Surgery Consult Note Consultation [...] site and tachycardia. He then presented to [facility] ED. Upon arrival, he was afebrile, tachycardic to 130s, and normotensive with expression of purulence from right back surgical site.Labs significant for mild leukocytosis to 14.5. Thoracic surgery was then consulted for management. PMH: Right anterior thymoma PSH: Past Surgical History: Procedure Laterality Date ??? PRO BRONCHOSCOPY, DIAGNOSTIC N/A 10/24/2019 BRONCHOSCOPY, DIAGNOSTIC (WRVU 2.78) performed by Quentin Carlin MD at [facility] OR ??? PRO DRAINAGE OF HEMATOMA/FLUID Right 11/09/2019 INCISION & DRAINAGE HEMATOMA, SEROMA OR FLD. COLLECTION, CHEST (WRVU 1.58) performed by Piyush Hobbs MD at [facility] MAIN OR ? ? PRO INJECTION ANES AGENT &/ STEROID INTERCOSTAL NERVE EA ADDL LEVEL Right 10/24/2019 NERVE BLOCK, INTERCOSTAL NERVE, MULTIPLE (WRVU 1.68) performed by Quentin Carlin MD at [facility] MAIN OR ??? PRO THORACOSCOPY WITH BIOPSY OF PLEURA Right 10/24/2019 THORACOSCOPY; WITH BIOPSY(IES) OF PLEURA (WRVU 4.58) performed by Quentin Carlin MD at [facility] MAIN OR ??? PRO THORACOTOMY WITH THERAPEUTIC WEDGE RESECTION EA ADDL Right 10/24/2019 @THORACOTOMY; W/THERAPEUTIC WEDGE RESECTION, EA ADD'L RESC, IPSILATERAL (WRVU 3) performed by Quentin Carlin MD at [facility] OR ??? PRO THORACOTOMY WITH THERAPEUTIC WEDGE RESECTION INITIAL Right 10/24/2019 @THORACOTOMY; W/ THERAPEUTIC WEDGE RESECTION , INITIAL (WRVU 15.75) performed by Quentin Carlin MD at [facility] OR ??? PRO THYMECTOMY, RADICAL MEDIAST DISSSEC Right 10/24/2019 @THYMECTOMY W/ RAD. MEDIASTINAL DISSECTION (WRVU 23.48) performed by Quentin Carlin MD at [facility] OR MEDS: No current facility-administered medications on [...] file Gets together: Not on file Attends restorationist service: Not on file Active member of [...] and tachycardia for which he presented to [facility] ED. He is currently afebrile, tachycardic to [...] If you have any questions, please page [phone]. Tree Hodge MD Thoracic Surgery, Pager [phone] 12/08/2019 8:35 PM documented in this encounter Nursing Notes * Judy Banks RN - 12/09/2019 2:12 PM EDT Arrived [...] give broad-spectrum antibiotics. Armen Simon MD 12/08/19 [id number] * Zeeshan Luna MD - 12/08/2019 3:51 [...] - 12/09/2019 1:29 PM EDTSummary: Operative Report [facility] Operative Note Patient Name: Tree Lantigua : [id number] MR#: [id number] Case Date: 12/09/2019 Surgeon: Surgeon(s) and Role: [...] Debridement Muscle And Fascia 20 Sq Cm/< (52166) 12/09/2019 11:44 AM EDT chest wall abscess Incision And Drainage Complex Post Operative Wound Infection ([id number]) 12/09/2019 11:44 AM EDT chest wall abscess HEMOGRAM Routine 12/09/2019 5:07 AM EDT DIFFERENTIAL, AUTOMATED Routine 12/09/2019 5:07 AM EDT HC CBC,PLT & AUTO DIFF Routine 0 5:07 AM EDT RAPID COVID-19 PCR ([facility]) STAT 12/08/2019 10:20 PM EDT [...] EDT) Anaerobic Culture No anaerobic organisms isolated [facility] Specimen from abscess (specimen) THORACIC STRUCTURE / Unknown 12/09/2019 12:34 PM EDT 12/09/2019 2:15 PM EDT Comment:RIGHT POSTERIOR LATE RAL CHEST WALL WOUND #2 Narrative Resulting Agency Comment Spec In Lab Michael Li MD MICROBIOLOGY - GENER AL ORDERABLES [facility] [place] [address] * (ABNORMAL) Abscess/Wound Aspirate Culture (12/09/2019 12:34 PM EDT) Abscess/Wound Aspirate Culture Moderate Staphylococcus aureus(A) [facility] Gram Stain Many Neutrophils seen Rare Gram Positive Cocci seen (A) [facility] Organism Staphylococcus aureus(A) [facility] Organism Gram Positive Cocci(A) [facility] Specimen from abscess (specimen) THORACIC [...] Sensitive Comment:Gentamicin i s not appropriate for Milam-therapy. Staphylococcus aureus Levofloxacin VITEK 2 METHOD Sensitive [...] Li MD MICROBIOLOGY - GENER AL ORDERABLES [facility] [place] [address] * Anaerobic Culture (12/09/2019 12:34 PM EDT) Anaerobic Culture No anaerobic organisms isolated [facility] Specimen from abscess (specimen) THORACIC STRUCTURE / Unknown 12/09/2019 12:34 PM EDT 12/09/2019 2:14 PM EDT Comment:RIGHT POSTERIOR LATE RAL CHEST WALL WOUND #1 Narrative Resulting Agency Comment Spec In Lab Michael Li MD MICROBIOLOGY - GENER AL ORDERABLES [facility] [place] [address] * (ABNORMAL) Abscess/Wound Aspirate Culture (12/09/2019 12:34 PM EDT) Abscess/Wound Aspirate Culture Rare Staphylococcus aureus Susceptibilities previously reported (A) [facility] Gram Stain Few Neutrophils seen No microorganisms seen. (A) [facility] Organism Staphylococcus aureus(A) [facility] Specimen from abscess (specimen) THORACIC STRUCTURE / Unknown 12/09/2019 12:34 PM EDT 12/09/2019 2:14 PM EDT Comment:RIGHT POSTERIOR LATE RAL CHEST WALL WOUND #1 Narrative Resulting Agency Comment Spec In Lab Michael Li MD MICROBIOLOGY - GENER AL ORDERABLES [facility] [place] [address] * AFB culture Other (12/09/2019 12:34 PM EDT) Acid Fast Bacilli Culture No Acid Fast Bacilli isolated [facility] Acid Fast Stain No Acid Fast Bacilli seen [facility] Specimen of unknown material (specimen) 12/09/2019 12:34 PM EDT 12/09/2019 2:15 PM EDT Comment:RIGHT POSTERIOR LATE RAL CHEST WALL WOUND #2 Narrative Resulting Agency Comment Spec In Lab Quentin Carlin MD MICROBIOLOGY - GENER AL ORDERABLES Performing Organization Address [facility]/ZIP Co de Phone Number [facility] [place] [address] * Fungus culture Abscess (12/09/2019 12:34 PM EDT) Fungus Culture No Fungus isolated [facility] Specimen from abscess (specimen) 12/09/2019 12:34 PM EDT 12/09/2019 2:15 PM EDT Comment:RIGHT POSTERIOR LATE RAL CHEST WALL WOUND #2 Narrative Resulting Agency Comment Spec In Lab Quentin Carlin MD MICROBIOLOGY - GENER AL ORDERABLES Performing Organization Address City/[facility]/ZIP Co de Phone Number [facility] [place] [address] * AFB culture Other (12/09/2019 12:34 PM EDT) Acid Fast Bacilli Culture No Acid Fast Bacilli isolated [facility] Acid Fast Stain No Acid Fast Bacilli seen [facility] Specimen of unknown material (specimen) 12/09/2019 12:34 PM EDT 12/09/2019 2:14 PM EDT Comment:RIGHT POSTERIOR LATE RAL CHEST WALL WOUND #1 Narrative Resulting Agency Comment Spec In Lab Quentin Carlin MD MICROBIOLOGY - GENER AL ORDERABLES [facility] [place] [address] * Fungus culture Abscess (12/09/2019 12:34 PM EDT) Fungus Culture No Fungus isolated [facility] Specimen from abscess (specimen) 12/09/2019 12:34 PM EDT 12/09/2019 2:14 PM EDT Comment:RIGHT POSTERIOR LATE RAL CHEST WALL WOUND #1 Narrative Resulting Agency Comment Spec In Lab Quentin Carlin MD MICROBIOLOGY - GENER AL ORDERABLES Performing Organization Address City/[facility]/ZIP Co de Phone Number [facility] [place] [address] * (ABNORMAL) Differential, Automated (12/09/2019 5:07 AM EDT) Neutrophil % 65.1 % [facility] Neutrophil Absolute 5.83 1.70 - 6.10 x10(3)/mc L [facility] Lymph % 17.7 % [facility] Lymphocytes Abs 1.6 0.9 - 3.2 x10(3)/mc L [facility] Monocyte % 11.8 % [facility] Monocyte Abs 1.1(H) 0.3 - 0.9 x10(3)/mc L [facility] Eos % 3.5 % [facility] Eosinophils Abs 0.3 0.0 - 0.4 x10(3)/mc L [facility] Basophil % 0.7 % [facility] Baso Absolute 0.1 0.0 - 0.1 x10(3)/[facility] Immature Gran % 1.20 % [facility] Comment: Immature granulocytes(IG's)percentage and absolute count will include metamyelocytes, myelocytes, and promyelocytes. Blood smears from CBCs yielding IG's will be scanned manually for concordance. If this scan disagrees with the automated IG or if promyelocytes are noted, a manual differential will be performed. Immature Gran Absolute 0.11(H) 0.00 - 0.04 x10(3)/[facility] Blood specimen (specimen) 12/09/2019 5:07 AM EDT 12/09/2019 5:24 AM EDT Narrative Resulting Agency Comment Spec In Lab Bill Shelton MD HEMATOLOGY ORDERAB LES Performing Organization Address City/State/[facility] Co de Phone Number [facility] [place] [address] * (ABNORMAL) Hemogram (12/09/2019 5:07 AM EDT) White Blood Cell 9.0 4.0 - 9.5 x10(3)/[facility] Red Blood Cell 5.23 4.58 - 5.54 x10(6)/[facility] Hemoglobin 10.2(L) 13.7 - 16.5 gm/dL [facility] Hematocrit 34.5(L) 40.5 - 48.5 % [facility] Mean Cell Volume 66.0(L) 82.9 - 93.1 fL [facility] Mean Cell Hemoglobin 19.5(L) 27.5 - 32.1 pg [facility] Mean Cell Hemoglobin Concentration 29.6(L) 32.0 - 35.7 gm/dL [facility] Platelet 256 145 - 357 x10(3)/[facility] RDW Standard Deviation 39.6 36.0 - 45.0 fL [facility] RDW coefficient of variation 17.1(H) 11.4 - 13.8 % [facility] Mean Platelet Volume 9.8 7.6 - 12.9 fL [facility] NRBC% auto 0.0 % [facility] NRBC Absolute 0.000 0.000 - 0.000 x10(3)/mc L [facility] Blood specimen (specimen) 12/09/2019 5:07 AM EDT 12/09/2019 5:24 AM EDT Narrative Resulting Agency Comment Spec In Lab Bill Shelton MD HEMATOLOGY ORDERAB LES [facility] [place] [address] * COVID-19 PCR (12/08/2019 10:20 PM EDT) SARS-CoV-2 RNA (Rapid) Not Detected Not Detected [facility] Comment: This result should be [...] using the Simplexa COVID-19 Direct Assay by [employer]eatyou as authorized by the FDA issued Emergency [...] Department of Pathology and Laboratory Medicine at [facility], certified under the Clinical Laboratory Improvement Amendments [...] Information for Healthcare Professionals (https://www.cdc.gov/coronavirus/2019-ncov/hcp/index.html). SARS-CoV-2 Source EXTRACTOR AND WRINGER OPERATOR Swab SHERIE BOWIE [facility] Nasopharyngeal swab (specimen) 12/08/2019 10:20 PM EDT 12/08/2019 10:57 PM EDT Comment:Symptoms->Surveillan ce Narrative Resulting Agency Comment Spec In Lab Armen Simon MD MICROBIOLOGY - GEN ERAL ORDERABLES [facility] [place] [address] * CT Chest w Contrast (12/08/2019 8:54 [...] below. ? Electronically signed by: Dominique Henley [facility] ([phone]), at 12/08/2019 9:16 PM Narrative 12/08/2019 9:16 [...] number below. Electronically signed by: Dominique Henley [facility]([phone]), at 12/08/2019 9:16 PM Armen Simon MD IMG CT ORDERABLES * Anaerobic Culture (12/08/2019 8:30 PM EDT) Anaerobic Culture No anaerobic organisms isolated [facility] Specimen from abscess (specimen) STRUCTURE OF BACK OF TRUNK / Unknown 12/08/2019 8:30 PM EDT 12/08/2019 8:46 PM EDT Comment:RIGHT BACK/SHOULDER INCISION Narrative Resulting Agency Comment Spec In Lab Tree Hodge MD MICROBIOLOGY - [facility] AL ORDERABLES [facility] [place] [address] * (ABNORMAL) Abscess/Wound Aspirate Culture (12/08/2019 8:30 PM EDT) Abscess/Wound Aspirate Culture Many Staphylococcus aureus(A) [facility] Gram Stain Many Neutrophils seen Rare Gram Positive Cocci seen (A) [facility] Organism Staphylococcus aureus(A) [facility] Organism Gram Positive Cocci(A) [facility] Specimen from abscess (specimen) STRUCTURE [...] Sensitive Comment:Gentamicin i s not appropriate for Milam-therapy. Staphylococcus aureus Levofloxacin VITEK 2 METHOD Sensitive [...] Hodge MD MICROBIOLOGY - GENER AL ORDERABLES [facility] [place] [address] * Blood culture (12/08/2019 4:11 PM EDT) Blood Culture No growth at 5 days. [facility] Blood specimen (specimen) 12/08/2019 4:11 PM EDT 12/08/2019 6:22 PM EDT Narrative Resulting Agency Comment Spec In Lab Portillo Trejo MD MICROBIOLOGY - BLOO D ORDERABLES [facility] [place] [address] * Scan, Peripheral Blood (12/08/2019 3:58 PM EDT) Plat estimate Normal [facility] RBC Morphology Abnormal [facility] Microcyte 1-5 /HPF [facility] Hypochromia Slight [facility] Polychromasia Present >5/HPF [facility] Target Cells 1-5 /HPF [facility] Blood specimen (specimen) 12/08/2019 3:58 PM EDT 12/08/2019 5:02 PM EDT Narrative Resulting Agency Comment Spec In Lab Bart CROWELL HEMATOLOGY ORDERABLE S [facility] [place] [address] * Aguilar Tube Hold (12/08/2019 3:58 PM EDT) Aguilar Hold Sample in lab. [facility] Blood specimen (specimen) Venous Draw / Unknown 12/08/2019 3:58 PM EDT 12/08/2019 5:03 PM EDT Bart CROWELL CHEMISTRY ORDERABLES [facility] [place] [address] * Gold Tube HOLD (12/08/2019 3:58 PM EDT) Gold Hold Sample in lab. [facility] Blood specimen (specimen) Venous Draw / Unknown 12/08/2019 3:58 PM EDT 12/08/2019 5:03 PM EDT Bart CROWELL CHEMISTRY ORDERABLES [facility] [place] [address] * Blue Tube HOLD (12/08/2019 3:58 PM EDT) Blue Hold Sample in lab. [facility] Blood specimen (specimen) Venous Draw / Unknown 12/08/2019 3:58 PM EDT 12/08/2019 5:03 PM EDT Bart CROWELL HEMATOLOGY ORDERABLE S [facility] [place] [address] * (ABNORMAL) Differential, Automated (12/08/2019 3:58 PM EDT) Pathologist [facility] Neutrophil % 78.0 % [facility] Neutrophil Absolute 11.28(H) 1.70 - 6.10 x10(3)/mc L [facility] Lymph % 11.5 % [facility] Lymphocytes Abs 1.7 0.9 - 3.2 x10(3)/ L [facility] Monocyte % 7.9 % [facility] Monocyte Abs 1.1(H) 0.3 - 0.9 x10(3)/ L [facility] Eos % 0.7 % [facility] Eosinophils Abs 0.1 0.0 - 0.4 x10(3)/ L [facility] Basophil % 0.6 % [facility] Baso Absolute 0.1 0.0 - 0.1 x10(3)/mc L [facility] Immature Gran % 1.30 % [facility] Comment: Immature granulocytes(IG's)percentage and absolute count will include metamyelocytes, myelocytes, and promyelocytes. Blood smears from CBCs yielding IG's will be scanned manually for concordance. If this scan disagrees with the automated IG or if promyelocytes are noted, a manual differential will be performed. Immature Gran Absolute 0.19(H) 0.00 - 0.04 x10(3)/mc L [facility] Blood specimen (specimen) 12/08/2019 3:58 PM EDT 12/08/2019 5:02 PM EDT Narrative Resulting Agency Comment Spec In Lab Bart CROWELL HEMATOLOGY ORDERABLE S [facility] [place] [address] * (ABNORMAL) Hemogram (12/08/2019 3:58 PM EDT) White Blood Cell 14.5(H) 4.0 - 9.5 x10(3)/[facility] Red Blood Cell 6.62(H) 4.58 - 5.54 x10(6)/[facility] Hemoglobin 12.9(L) 13.7 - 16.5 gm/dL [facility] Hematocrit 43.0 40.5 - 48.5 % [facility] Mean Cell Volume 65.0(L) 82.9 - 93.1 [facility] Mean Cell Hemoglobin 19.5(L) 27.5 - 32.1 pg [facility] Mean Cell Hemoglobin Concentration 30.0(L) 32.0 - 35.7 gm/dL [facility] Platelet 328 145 - 357 x10(3)/[facility] RDW Standard Deviation 38.8 36.0 - 45.0 [facility] RDW coefficient of variation 18.6(H) 11.4 - 13.8 % [facility] Mean Platelet Volume 10.1 7.6 - 12.9 [facility] NRBC% auto 0.0 % [facility] NRBC Absolute 0.000 0.000 - 0.000 x10(3)/[facility] Blood specimen (specimen) 12/08/2019 3:58 PM EDT 12/08/2019 5:02 PM EDT Narrative Resulting Agency Comment Spec In Lab Bart CROWELL HEMATOLOGY ORDERABLE S Performing Organization Address [facility]/ZIP Co de Phone Number [facility] [place] [address] * (ABNORMAL) Sedimentation rate (12/08/2019 3:58 PM EDT) Sedimentation Rate Automated >119(H) 2 - 37 mm/hr [facility] Comment: Effective March 19, 2019 new capillary photometric technology has resulted in a change in reference ranges. It is recommended that each ESR result be reviewed with its own age appropriate reference range. Blood specimen (specimen) 12/08/2019 3:58 PM EDT 12/08/2019 5:02 PM EDT Narrative Resulting Agency Comment Spec In Lab Portillo Trejo MD HEMATOLOGY ORDERABL ES Performing Organization Address [facility] Co de Phone Number [facility] [place] [address] * (ABNORMAL) CRP, acute inflammation (12/08/2019 3:58 PM EDT) C-Reactive Protein 134.3(H) <=4.9 mg/L [facility] Blood specimen (specimen) 12/08/2019 3:58 PM EDT 12/08/2019 5:02 PM EDT Narrative Resulting Agency Comment Spec In Lab Portillo Trejo MD CHEMISTRY ORDERABLE S Performing Organization Address [facility]/ZIP Co de Phone Number [facility] [place] [address] * (ABNORMAL) Basic Metabolic Panel (non-fasting) (12/08/2019 3:58 PM EDT) Glucose 115 65 - 199 mg/dL [facility] Comment:Diabetes: >=200 mg/d L plus symptoms Blood Urea Nitrogen 11 10 - 20 mg/dL [facility] Creatinine 0.83 0.80 - 1.50 mg/dL [facility] Sodium 136 135 - 145 mmol/L [facility] Potassium 4.0 3.5 - 5.0 mmol/L [facility] Comment: Please note: ??Patients with WBC >100,000 may have falsely elevated Potassium levels. ??For accurate Potassium quantification in these patients send serum separator tube (gold top) for subsequent determinations. ??Contact the Clinical Chemistry Laboratory if there are any questions. Chloride 95(L) 98 - 107 mmol/L [facility] Carbon Dioxide 27 22 - 31 mmol/L [facility] Anion Gap 14 5 - 15 mmol/L [facility] Calcium 9.7 8.5 - 10.5 mg/dL [facility] Est Glomerular Filtration Rate 92 >=60 mL/min/1. 73 m?? [facility] Comment: The eGFR was calculated using the CKD-EPI equation. As with all creatinine based estimates of kidney function, eGFR values calculated with the CKD-EPI equation are not accurate in patients with acute kidney failure, extremes of body mass or the acutely ill. [email or web address] eGFR 107 >=60 mL/min/1. 73 m?? [facility] Comment: The eGFR was calculated using the CKD-EPI equation. As with all creatinine based estimates of kidney function, eGFR values calculated with the CKD-EPI equation are not accurate in patients with acute kidney failure, extremes of body mass or the acutely ill. [email or web address] Blood specimen (specimen) 12/08/2019 3:58 PM EDT 12/08/2019 5:02 PM EDT Narrative Resulting Agency Comment Spec In Lab Portillo Trejo MD CHEMISTRY ORDERABLE S [facility] [place] [address] documented in this encounter Visit Diagnoses Diagnosis Chest wall abscess Cellulitis and abscess of trunk Open wound of right chest wall with complication, initial encounter Open wound of right chest wall with complication documented in this encounter Admitting Diagnoses Diagnosis Open [...] Given 12/09/2019 6:43 PM EDT 650 mg docusate sodium (Colace) capsule 100 mg 100 [...] (Active or Suspected): Skin/Skin Structure New Bag 12/09/2019 9:33 AM EDT 3.375 g 12.5 mL/hr New Bag 12/09/2019 2:21 AM EDT 3.375 g 12.5 [...] Prater, EVER)1143 (Handoff - Provider: Emmie Barcenas)1145 (MAR Hold - Provider: Admin Adt - Reason: Transfer to a Procedural area)1318 (Stopped - Provider: Quentin Aranda CRNA)1400 (Automatically Held - Provider: Admin Adt)1527 ([facility] Unhold - Provider: Admin Adt) [...] - Reason: Transfer to a Procedural area)1349 ([facility] Unhold - Provider: Darren Bennett [...] - Reason: Transfer to a Procedural area)1349 ([facility] Unhold - Provider: Judy Banks [...] Recovery (Recovery-Hospital Unit), Routine Vancomycin Level - [facility] Order Reminder(Linked Group 2) NOT [...] to assure a timely blood draw. 1145 (JUN Hold - Provider: Admin Adt [...] draw. documented in this encounter Care Teams Conche Operator Relationship Specialty Start Date End Date Christiana Moore APRN [address] [place] [address] PCP - General Family Medicine 09/26/19 documented as of this encounter
--- OUTSIDE RECORDS SUMMARY | 2023-11-12 02:16 | XMS_ITS | Encounter Summary ---
Author [facility] [place] [address] Care Team Providers Care Senior National Account Manager Name Role Phone Christiana Moore APRN Primary Care Provider [phone] Encounter Details Date Type Department Care Team (Late st Contact Info) Description 12/03/2019 Telephone [place] [phone] Angelita Sepulveda Social History Tobacco Use Types Packs/Day Years [...] encounter Miscellaneous Notes * Telephone Encounter - Angelita Sepulveda LNA - 12/03/2019 10:10 AM EDT Pt called requesting refill on oxycodone. Request sent to pager [phone]. documented in this encounter Plan of Treatment Not on file documented as of this encounter Visit Diagnoses Not on filedocumented in this encounter Care Teams Senior National Account Manager Relationship Specialty Start Date End Date Christiana Moore APRN [address] [place] [address] PCP - General Family Medicine 09/26/19 documented as of this encounter
--- OUTSIDE RECORDS SUMMARY | 2023-11-12 02:16 | XMS_ITS | Encounter Summary ---
Author Organization [facility] [place] [address] Care Team Providers Care Retail Client Solutions Analyst Name Role Phone Oscar Christiana DAVIS Primary Care Provider Reason for Visit * Reason Comments Follow Up Surgery Encounter Details Date Type Department Care Team (Late st Contact Info) Description 12/11/2019 1:00 PM EDT Office [place] [phone] Jose Alvarez MD [facility] [place] [address] Mediastinal mass; Chest wall abscess; Open wound of right [...] Sign Reading Time Taken Comments Blood Pressure 113/80 12/11/2019 1:13 PM EDT Pulse 90 12/11/2019 1:13 PM EDT Temperature 36.4 ??C (97.5 ??F) 12/11/2019 1:13 PM ED T Respiratory Rate 17 12/11/2019 1:13 PM EDT Oxygen Saturation 98% 12/11/2019 1:13 PM EDT Inhaled Oxygen Concentration - - Weight 81.6 kg (180 lb) 12/11/2019 1:13 PM EDT Height 180.3 cm (5' 11) 12/11/2019 1:13 PM EDT Body Mass Index 25.1 12/11/2019 1:13 PM EDT documented in this encounter Progress Notes * Jose Alvarez MD - 12/11/2019 1:00 PM EDT Thoracic Surgery Attending Outpatient Follow Up Note Jose Alvarez MD [place] [phone] FAX: Pre Op Dx: mediastinal mass ?? Post Op Dx: Thymoma ?? Procedure (10/24/19): Bronchoscopy, right VATS with evacuation of pleural fluid and partial decortication, right thoracotomy with resection of anterior mediastinal mass, wedge resection x5 of the right lung Pathology (10/24/19): Thymoma, type A, wedge resection with benign lymph nodes ?? Procedure (11/09/19): Right thoracotomy incision I&D and wound vac placement Procedure (12/09/19): Right thoracotomy incision I&D and wound vac placement ?? Complications: Surgical site infection ?? Treatment: wound vac changes per [facility]NA, surveillance [...] for a wound vac change. He reports he is sore and taking oxycodone at night and for wound vac changes. He is sleeping better with the matthew pad of the wound vac bridged to the side of his chest so he can sleep on his back. He continues to take the Bactrim without difficulty or side effects. He denies f/c/n/v/SOB/CP. Medications: Current Outpatient Medications on File Prior to Visit Medication Sig Dispense Refill ??? oxyCODONE (Roxicodone) 5 mg Tablet Take 1 tablet by mouth every 8 hours as needed for Pain. 10 tablet 0 ??? docusate sodium (Colace) 100 mg Capsule Take 1 capsule by mouth 2 times daily for 10 days. 20 capsule 0 ??? sulfamethoxazole-trimethoprim DS (Bactrim DS) 800-160 mg Tablet Take 1 tablet by mouth 2 times daily. 28 tablet 0 ??? [...] file prior to visit. Physical Exam: BP 113/80 (Patient Position: Sitting) Pulse 90 Temp 36.4 ??C (97.5 ??F) (Temporal) Resp 17 Ht 180.3 cm (5' 11) Wt 81.6 kg (180 lb) SpO2 98% BMI 25.10 kg/m?? General Appearance: Alert, cooperative, no distress, appears stated age Lungs: Non-labored breathing on RA Heart: Appears well perfused Extremities: Extremities normal, atraumatic, no cyanosis or edema Wound/Incision: Well healing right thoracotomy with wound vac in place, no purulent drainage, redness, or swelling Imaging: I have independently visualized the following [...] with wound vac in place. Plan: 1. Follow up with [facility] for wound vac changes 2. 30 minutes of exercise daily at a minimum 3. RTC in 2 weeks for repeat wound vac change 4. Follow up with PCP as scheduled 5. Call with any questions or concerns Bella Arteaga APRN 12/11/2019 Thoracic Surgery [facility] I have seen the patient and reviewed the PA/resident's above history and I agree with the details as written. The assessment and plan were formulated in discussion with me and I agree with them as documented. JOSE ALVAREZ MD documented in this encounter Procedure Notes * Bella Artegaa APRN - 12/11/2019 1:00 PM EDTProcedure(s): DRESSING CHANGE, WOUND VAC > 50SQ CM Pre-Procedure Diagnose(s): Deep incisional surgical site infection Post-Procedure Diagnose(s): Deep incisional surgical site infection Wound vac was changed in clinic for right surgical thoracotomy site incision. Wound bed appeared clean with pink granulation tissue. Two black sponges were placed, one tunneled laterally 2 cm and superiorly approximately 4 cm and the second placed on top to fill the rest of the wound. A bridge was placed on top so the matthew pad was located on his lateral chest wall. Wound size 13 cm x 3.5 cm x 2 cm. Held suction. Wound vac to low continuous -125 mmHg suction. Bella Arteaga APRN 12/11/2019 documented in this encounter Plan of Treatment Not on file documented as of this encounter Visit Diagnoses Diagnosis Mediastinal mass Swelling, mass, or lump in chest Chest wall abscess Cellulitis and abscess of trunk Open wound of right chest wall with complication, subsequent encounter documented in this encounter Care Teams Retail Client Solutions Analyst Relationship Specialty Start Date End Date Christiana Moore APRN [address] [place] [address] PCP - General Family Medicine 09/26/19 documented as of this encounter
--- OUTSIDE RECORDS SUMMARY | 2023-11-12 02:17 | XMS_ITS | Clinical Summary ---
Author Organization [facility] Address [address] [place] [address] Care Team Providers Care Home Care Physical Therapist Name Role Phone Unknown, Provider Primary Care Provider [phone] Allergies Active Allergy Reactions Criticality Noted Date Comments Wasp Venom Medium 09/30/2019 Medications Medication Sig Dispensed Refills Start Date End Date Status ibuprofen (MOTRIN) 200 mg tablet Take 600 mg by mouth every 6 hours. 11/14/2019 Active Social History Tobacco Use Types Packs/Day Years Used Date Smoking Tobacco: Never Smokeless Tobacco: Never Interpersonal Safety Answer Date Record ed Physically Hurt Never 03/02/2020 Verbally Threaten Not on file 03/02/2020 Sex and Gender Information Value Date Recorded Sex Assigned at Not on file Gender Identity Male 10/25/2020 12:32 EDT Sexual Orientation Not on file Obstetrics History Last Filed Vital Signs Vital Sign Reading Time Taken Comments Blood Pressure 142/86 10/25/2020 1006 EDT Pulse 99 10/25/2020 1006 EDT Temperature - - Respiratory Rate - - Oxygen Saturation - - Inhaled Oxygen Concentration - - Weight 80.7 kg (178 lb) 10/25/2020 1006 EDT Height 179.5 cm (5' 10.67) 10/25/2020 1006 EDT Body Mass Index 25.06 10/25/2020 1006 EDT Plan of Treatment Health Maintenance Due Date Last Done Comments RSV Immunization ( o r 60+ Years) (1 - 1-dose 60+ series) 2014 Fall Risk Screening 10/25/2021 10/25/2020 COVID-19 Vaccine (2022-24 season) 2022 Hepatitis C Screen Completed 09/24/2019 Procedures Procedure Name Priority Date/Time Associated Diagnosis Comments HEPATITIS C AB W REFLEX TO HCV RNA BY PCR Routine 09/24/2019 14:40 EDT from Last 3 Months or Most Recently Relevant to Health Maintenance Results * HEPATITIS C AB W REFLEX TO HCV RNA BY PCR (09/24/2019 14:40 EDT) Hep C Antibody Negative Negative 09/26/2019 11:[address] [facility] Blood VENOUS BLOOD / Unknown 09/24/2019 14:40 EDT 09/25/2019 15:54 EDT Provider Outr Resulting Lab CHEMISTRY & BLOOD GAS ORDERABLES [facility] [address] [place] [address] from Last 3 Months or Most Recently Relevant to Health Maintenance Care Teams Home Care Physical Therapist Relationship Specialty Start Date End Date Unknown, Provider, PCP - General 10/22/20
--- OUTSIDE RECORDS SUMMARY | 2023-11-12 02:17 | XMS_ITS | Encounter Summary ---
[place] [address] Care Team Providers Care Sfdc Solution Architect Name Role Phone OscarChristiana RYAN Primary Care Provider Reason for Visit * Reason Onset Date Comments Other 10/08/2019 results Encounter Details Date Type Department Care Team (Late st Contact Info) Description 10/08/2019 Telephone [place] [phone] Monica Price RN Other (results) Social History Tobacco Use Types Packs/Day Years [...] Telephone Encounter - Monica Price RN - 10/08/2019 2:09 PM EDT TC to Mr. Lantigua Hx: large mediastinal mass Mr. Lantigua had his PET scan today and there was an unexpected finding of question of diverticulitis in his sigmoid colon. Currently he is asymptomatic, denies any abdominal pain, changes in his bowels, or other pain. Explained that he needs to call his PCP in regards to this finding and treatment. He verbalized understanding and knows to call with any questions or concerns. documented in this encounter Plan of Treatment Not on file documented as of this encounter Visit Diagnoses Not on filedocumented in this encounter Care Teams Sfdc Solution Architect Relationship Specialty Start Date End Date Christiana Moore APRN [address] [place] [address] PCP - General Family Medicine 09/26/19 documented as of this encounter
--- OUTSIDE RECORDS SUMMARY | 2023-11-12 02:17 | XMS_ITS | Encounter Summary ---
Author Organization [facility] [place] [address] Care Team Providers Care Corporate Development Analyst Name Role Phone Oscar Christiana RYAN Primary Care Provider [phone] Reason for Visit * Reason Comments Wound Check * Auth/Cert Specialty Diagnoses / Procedures Referred By Contac t Referred To Contact Diagnoses Chest wall abscess Cellulitis of back except buttock Procedures ER IPI Admit Referral ID Status Reason Start Date Expiration Date Visits Re quested Visits Authorized [id number] 1 1 Encounter Details Date Type Department Care Team (Late st Contact Info) Description 11/09/2019 10:00 PM EDT - 11/09/2019 11:55 PM EDT [place] [address] Piyush Rojo MD [facility] [place] [address] INCISION & DRAINAGE HEMATOMA, SEROMA OR FLD. COLLECTION, CHEST (WRVU 1.58) Social History Tobacco Use Types [...] Sign Reading Time Taken Comments Blood Pressure 109/65 11/09/2019 11:02 PM EDT Pulse 90 11/09/2019 3:58 PM EDT Temperature 36.6 ??C (97.9 ??F) 11/09/2019 11:02 PM E DT Respiratory Rate 16 11/09/2019 11:02 PM EDT Oxygen Saturation 92% 11/09/2019 11:02 PM EDT Inhaled Oxygen Concentration - - [...] DRAINAGE HEMATOMA, SEROMA OR FLD. COLLECTION, CHEST (VU 1.58) Other Major Procedures: None History of [...] Hospital Course: Tree Lantigua [facility] via the Same Day Program. He was brought to the operating room on 11/09/2019 - 11/10/[address] Piyush Rjoo performed surgery as described above. He tolerated [...] a nurse in the Thoracic Clinic at [phone]. After hours or on weekends or holidays please call: [phone] and ask to speak to the Thoracic [...] the Thoracic Clinic or the Thoracic Surgeon fabrication machine operator after hours. We are unable to refill [...] AM Bella Arteaga APRN Thoracic Surgery at [facility] Arrive at: [place] [facility] [phone] Future Orders Complete By Expires Referral to Home Health - at DISCHARGE [HIC4371 CPT(R)] As directed Process Instructions: Scheduling Instructions: Comments: DOCUMENTATION FOR VNA SERVICES (INCLUDING THOSE PATIENTS WITH MEDICARE COVERAGE REQUIRING HOME VNA SERVICES AND/OR HOSPICE SERVICES) PATIENT'S LOCATION: Tree Lantigua [address] [place], [place] [id number] (home) Cell: Telephone Information: Hemodialysis Lab Technician's Name: Self In discussion with the attending physician, it is certified that this patient is under their care and that they, or a Nurse Practitioner,Clinical Nurse specialist or Physician Market Risk Specialist who is working directly with them, [...] change VAC dressing. HOME HEALTH CARE AGENCY: [facility]. PHONE: [phone] FAX: [phone] Start of care: 24 to 48 hours [...] Christiana Moore APRN [address] / [facility] [address] All [facility] agencies which cover the area of patient's residence have been reviewed, either verbally carmel writing, and patient/family have chosen the home health care agency noted Questions: Agency name and contact information: [facility] Patient location post discharge: Home What services are requested: Registered Nurse Start date: Responsible MD post discharge contact info: PCP Provider Contact Information: Primary Care Provider: Christiana Moore APRN [phone] Discharge References/Attachments: Discharge References/Attachments None For questions regarding this document or issues relating to this hospitalization on the Thoracic Surgery Service, please contact Dr. Alvarez's office at . Signed: Bella Arteaga APRN 11/14/2019 Thoracic Surgery [facility] CC: PCP: Christiana Moore APRN Referring: Self [...] a nurse in the Thoracic Clinic at [phone]. After hours or on weekends or holidays please call: [phone] and ask to speak to the Thoracic [...] the Thoracic Clinic or the Thoracic Surgeon fabrication machine operator after hours. We are unable to refill [...] 3:13 PM EDT OFFICE OF CARE MANAGEMENT Computer Numerical Control Machinist Final DISCHARGE NOTE: Discussed Plan for discharge with primary team and pt's family. Plan for Discharge:Home with [facility] Homecare services provided by: Antonio SANABRIA For wound vac changes Homecare orders have [...] a copy of this letter. to drive Computer Numerical Control Machinist to follow until discharged if any new needs arise. Kassie Marie RN Phone [phone] Pager: # [phone] * Shannan Latif RN - 11/14/2019 2:11 [...] 1955; 64 y.o. Room/Bed: 419/419-B Today's Date: 11/14/19 ID: Tree Lantigua is [...] In: 894 [P.O.:840; IV Piggyback:54] Out: 2245 [Urine:5] Admit Weight: Current Weight: Weight: 77.1 kg [...] Nilo Larry 11/14/2019 Thoracic Surgery Team pager #[phone] * Todd Alvarez PA - 11/13/2019 9:49 AM EDT [facility] Department of Thoracic Surgery Inpatient Progress Note Patient Name: Tree Lantigua Patient : 1955 Patient Patient Location: [address] [place] [address] Attending Surgeon: ARMEN MCKEON REED MILLINGTON, TIMOTHY [...] to Hosp-Admission (Current) from 11/09/2019 in 4 [facility] Admission (Discharged) from 10/24/2019 in 3 [facility] Weight 77.1 kg (170 lb) 1 11/09/2019 [...] Micro: OR culture 11/10/2019 Abscess/Wound Aspirate Culture [[id number]] (Abnormal) Collected: 11/10/19 0025 Lab Status: Preliminary [...] Sensitive 1 Gentamicin is not appropriate for [place]-therapy. 2 Penicillin resistant, Nafcillin susceptible Staphylococci are [...] SOCRATES Rao 11/13/2019 Thoracic Surgery Service Pager [phone] * Nilo Larry - 11/13/2019 6:09 AM [...] - Attempt Cardiopulmonary Resuscitation - Inpatient Nilo Farias 11/13/2019 Thoracic Surgery Team pager #[phone] * Flakita Castro RN - 11/12/2019 7:00 [...] Discharge planning ) Service Thoracic Pager # [phone] e-DH reviewed. Report received from [facility] Patient plan of care discussed with Team and Nursing to assessment for continuing care and discharge needs. [facility]: 3 DECISION MAKER: Attempt Cardiopulmonary Resuscitation - Inpatient, <no information> Ongoing Issues: Needs wound vac and VNA plan is to change vac at bedside on Sunday and d/c after. Current Referral in place: [facility] - Providing Services for : ( RN, ) Barriers to Discharge: Wound Vac approval All paperwork sent to [facility] rep. Still waiting for wound measurements / team notified Family Concerns: None at this time Anticipate Transport at time of discharge: Home with wound vac via family car Plan: CM will continue to follow for coordination of care and to facilitate discharge planning. Kassie Marie RN CM Pager # [phone] The patient has been provided a list of Home Health Agencies/DME vendors which serve their preferred geographic area. A letter describing our affiliations was reviewed with them and they were educated about their right to choose where referrals are placed.. Patient requests referral to [facility] [employer] [place]. PHONE: [phone] FAX: [phone] Expected date of discharge: 11/14/19 Referral routed to the Windows Deployment Technician for matching with agency/vendor and to provide any required information. * Benedicto Cameron PA - 11/12/2019 8:45 AM EDT [facility] Department of Thoracic Surgery Inpatient Progress Note Patient Name: Tree Lantigua Patient : 1955 Patient Patient Location: 419/419-B Attending Surgeon: ARMEN MCKEON REED MILLINGTON, TIMOTHY [...] to Hosp-Admission (Current) from 11/09/2019 in 4 [facility] Admission (Discharged) from 10/24/2019 in 3 [facility] Weight 77.1 kg (170 lb) 1 11/09/2019 [...] Alvarez/SOCRATES Albarran 11/12/2019 Thoracic Surgery Service Pager [phone] * Nilo Larry - 11/12/2019 6:07 AM [...] shifts: In: 2033 [P.O.:1600; IV Piggyback:434] Out: 3044 [Urine:2825; Other:220] Admit Weight: 77.11 kg Current Weight: Weight: 77.1 kg (170 lb) Labs: Recent Labs 11/12/19 0542 11/11/19 04011/10/19 0811/09/19 1050 WBC 10.3* 13.8* 14.1* 14.6* HGB 12.3* 10.7* 13.2* 12.2* HCT 40.8 34.8* 42.8 39.7* PLATELET 498* 384* 485* 459* Recent Labs 11/11/19 0409 11/10/19 0811/09/19 1050 NA 139 137 138 K [...] Nilo Larry 11/12/2019 Thoracic Surgery Team pager #[phone] * Kassie Marie RN - 11/11/2019 3:41 PM EDT Office of Care Management (OCM /Agnes (BA)/ Discharge planning ) Service Thoracic Pager # [phone] [facility] reviewed. Report received from [facility] Patient plan of care discussed with Team and Nursing to assessment for continuing care and discharge needs. [facility]: 2 DECISION MAKER: Attempt Cardiopulmonary Resuscitation - Inpatient, <no information> Ongoing Issues: Wet to dry dressing , Chad drain removed , PO pain meds awaiting culture results Current Referral in place:None Barriers to Discharge: Watch for wound vac will need VNA if wound vac placed Family Concerns: None at this time / [facility] is [facility] of Choice Anticipate Transport at time of discharge: family Plan: CM will continue to follow for coordination of care and to facilitate discharge planning. Kassie Marie RN CM Pager # [phone] * Benedicto Cameron PA - 11/11/2019 8:31 AM EDT [facility] Department of Thoracic Surgery Inpatient Progress Note Patient Name: Tree Lantigua Patient : 1955 Patient Patient Location: [facility]/419-B Attending Surgeon: ARMEN MCKEON REED MILLINGTON, TIMOTHY [...] to Hosp-Admission (Current) from 11/09/2019 in 4 [facility] Admission (Discharged) from 10/24/2019 in 3 [facility] Weight 77.1 kg (170 lb) 1 11/09/2019 [...] RNA Not Detected Not Detected SARS-CoV-2 Source SKY DIVER Swab Abscess/Wound Aspirate Culture Specimen: Chest; Abscess [...] SOCRATES Samuels 11/11/2019 Thoracic Surgery Service Pager [phone] * Nilo Larry - 11/11/2019 7:44 AM EDT Thoracic Surgery Inpatient Progress Note Patient Name: Tree BRINK; Age: 1 1955; 64 y.o. Room/Bed: 419419-B Today's Date: 11/11/19 ID: Tree Lantigua is [...] 77.1 kg (170 lb) Labs: Recent Labs 11/11/1940811/10/19 0811/09/19 1050 WBC 13.8* 14.1* 14.6* HGB 10.7* 13.2* 12.2* HCT 34.8* 42.8 39.7* PLATELET 384* 485* 459* Recent Labs 11/11/1940811/10/1982811/09/19 1050 NA 139 137 138 K 3.9 [...] Nilo Larry 11/11/2019 Thoracic Surgery Team pager #[phone] * Benedicto Cameron PA - 11/10/2019 6:58 PM EDT [facility] Department of Thoracic Surgery Inpatient Progress Note Patient Name: Tree Lantigua Patient : 1955 Patient Patient Location: [address] [place] [address] Attending Surgeon: ARMEN MCKEON, PIYUSH SHAH ID: [...] to Hosp-Admission (Current) from 11/09/2019 in 4 [facility] Admission (Discharged) from 10/24/2019 in 3 [facility] Weight 77.1 kg (170 lb) 1 11/09/2019 [...] RNA Not Detected Not Detected SARS-CoV-2 Source SKY DIVER Swab Abscess/Wound Aspirate Culture Specimen: Chest; Abscess [...] SOCRATES Castle 11/10/2019 Thoracic Surgery Service Pager [phone] * Nilo Larry - 11/10/2019 7:00 AM EDT Thoracic Surgery Inpatient Progress Note Patient Name: Tree Lantigua ; Age: 1 1955; 64 y.o. Room/Bed: [address] [place], [place] [address] Today's Date: 11/10/19 ID: Tree Lantigua is [...] kg (170 lb) Labs: Recent Labs 11/10/19 0829 11/09/19 1050 WBC 14.1* 14.6* HGB 13.2* 12.2* HCT 42.8 39.7* PLATELET 485* 459* Recent Labs 11/10/19 0829 11/09/19 1050 NA 137 138 K 4.9 4.4 [...] Nilo Larry 11/10/2019 Thoracic Surgery Team pager [phone] * Katya Ortiz MD - 11/10/2019 5:59 [...] RNA Not Detected Not Detected SARS-CoV-2 Source SKY DIVER Swab Physical Exam Gen: A0x3, NAD, resting comfortably CVS: RRR, no murmurs/rubs/gallops Resp: CTAB, breathing comfortably on RA, dressing in place, c/d/i, has R [address] to continuoussuction -20, no airleak Abd: [...] adequate Katya Ortiz MD 11/10/2019 * Fatou Ignacio RN - 11/10/2019 1:26 AM EDT 0115 [...] Navarrete MD - 11/09/2019 1:35 PM EDT [facility] Department of Surgery Consult Note ? Consultation [...] history that includes Thymectomy, Radical Mediast Disssec (28356) (Right, 10/24/2019); Bronchoscopy, Diagnostic (70514) (N/A, 10/24/2019); Thoracotomy With Therapeutic Wedge Resection Initial (Right, 10/24/2019); Injection Anes Agent &/ Steroid Intercostal Nerve Ea Addl Level (32657) (Right, 10/24/2019); Thoracotomy With Therapeutic Wedge Resection [...] any questions regarding this consult, please page [phone]. ?? Sabine Navarrete MD/S PGY2 [phone] 11/09/2019 [...] documented in this encounter Procedure Notes * Chandler Bella, RYAN - 11/14/2019 1:23 PM EDTProcedure(s): DRESSING CHANGE, [...] to low continuous -125 mmHg suction. Bella RYAN Arteaga 11/14/2019 Thoracic Surgery 5015 Associated attestation - [...] Resident at bedside @ sign-out to Dr. Spencer at 16:00. Hilda Romo MD Internal Medicine [...] Review Outcome: Ongoing (Interventions Implemented as Appropriate) 11/14/19 0619 Coping/Psychosocial Plan Of Care Reviewed With patient [...] care. Outcome: Ongoing (Interventions Implemented as Appropriate) 11/14/19 06 Infection, Risk/Actual (Adult) Infection Prevention/Resolution making progress toward outcome * Plan of Care - Becca Wolfe RN - 11/13/2019 5:27 PM EDT Problem: Patient Care Overview Goal: Plan of Care Review Outcome: Ongoing (Interventions Implemented as Appropriate) 11/13/19 170 Coping/Psychosocial Plan Of Care Reviewed With patient [...] Mutuality Outcome: Ongoing (Interventions Implemented as Appropriate) 11/13/191700 Individualization Patient Specific Goals I have some [...] Ongoing (Interventions Implemented as Appropriate) 11/13/19 0824 Safety Interventions Isolation Precautions standard precautions maintained [...] Ongoing (Interventions Implemented as Appropriate) 11/13/19 1701 Interdisciplinary Rounds/Family Conf Participants patient;family;nursing;physician (HD) Problem: Infection, Risk/Actual (Adult) Goal: Identify Related Risk Factors and Signs and Symptoms Related risk factors and signs and symptoms are identified upon initiation of Human Response Clinical Practice Guideline (CPG) Outcome: Ongoing (Interventions Implemented as Appropriate) 11/13/19 1701 Infection, Risk/Actual Infection, Risk/Actual: Related Risk Factors [...] ?? * Consult Note - Yen Bush RPH - 11/11/2019 4:33 PM EDT Clinical Pharmacist Note-Vancomycin Tree Lantigua [id number] 1955 Tree Lantigua is a 64 y.o. [...] have. Alternately, during off-hours you may call [phone] to contact a pharmacist. YEN BUSH RPH Pager [phone] * Plan of Care - Becca Wolfe RN - 11/11/2019 4:16 PM EDT Problem: Patient Care Overview Goal: Plan of Care Review Outcome: Ongoing (Interventions Implemented as Appropriate) 11/11/19 154 Coping/Psychosocial Plan Of Care Reviewed With patient [...] Appropriate) OUTCOME EVALUATION NOTE: OUTCOME SUMMARY: .2143-C/O 09/16 pain on his right lateral chad drain [...] Device) pain * Initial Assessments - Kassie aMrie RN - 11/10/2019 4:18 PM EDT Office of Care Management Initial Assessment Face to Face Case Management visits deferred at this time r/t Covid-19 pandemic, exposure reductionand conserving PPE. Kassie Marie RN reviewed record and discussed patient with [...] 30 Days: Yes was here on 10/25/19 [facility] admits in last 30 days. Anticipated Length Of Stay (If known): Vs TBD Current Decision-Making Capacity: Patient is A&Ox4 Has current decision making capacity. Advance Care Planning: Attempt Cardiopulmonary Resuscitation - Inpatient No AD in [facility]. If AD's have not been completed would be surrogate decision maker per [place] surrogate decision making law. Any patient receiving care at [facility] must abide by [place] law. The hierarchy for surrogate decision making [...] (i) The agent with financial power of assistant prosecuting attorney or a conservator appointed in accordance [...] has no concerns about navigating the home [address] [place] [address] Social & Family Supports/Community Resources: Family Extended Emergency Contact Information Primary Emergency Contact: Lillian Tyson Address: [address] [place] [address] [place] Relation: Spouse Health/Prescription Coverage: Primary Insurance: AARP MANAGED MEDICARE Secondary Insurance: N/A Prescription Coverage: Yes Preferred Pharmacy: [id number] - [place], [place] - [address] [place] [address] AT [facility] [address] [address] Other: none Primary Care Provider: Christiana Moore APRN [phone] Patient/Caregiver Goals of Treatment: Deferred Potential Needs for Transition of Care: Rehab/SNF: None anticipated Home Health: None anticipated ( [facility] ) DME: None anticipated Dialysis: None anticipated [...] of care planning. Kassie Marie RN CM Computer Numerical Control Machinist Pager # [phone] * Plan of Care - Felicia Vaca [...] (Interventions Implemented as Appropriate) 11/09/19 2100 11/09/19 9889 Viera Fall Risk History of Falling 0 [...] Operative Note Patient Name: Tree Lantigua : [id number] MR#: [id number] Case Date: 11/09/2019 - 11/10/2019 Surgeon: Surgeon(s) [...] site opened. Cavity thoroughly irrigated with pulse choir accompanist. 19F Chad drain left in the pleural [...] Rojo MD - 11/10/2019 12:58 AM EDT [facility] Operative Note Patient Name: Tree Lantigua : [id number] MR#: [id number] Case Date: 11/09/2019 - 11/10/2019 Surgeon: Surgeon(s) [...] irrigated with normal saline using the pulse choir accompanist. A previous chest tube site was anesthetized [...] ROJO MD * ED Triage - Inderjit Lamb RN - 11/09/2019 10:35 AM EDT Pt [...] 12:25 AM EDT I&D Hematoma Seroma/Fluid Collection (77370) 11/09/2019 11:53 PM EDT right chest abscess, pleural effusion RAPID COVID-19 PCR ([facility]/APD/[place]) STAT 11/09/2019 7:57 PM EDT INCISION & [...] this report, please contact the number below. Piyush Rojo MD IMG DX ORDERABLE S * Phosphorus (11/12/2019 5:42 AM EDT) Phosphorus 3.9 2.5 - 4.5 mg/dL [facility] Blood specimen (specimen) 11/12/2019 5:42 AM EDT 11/12/2019 5:48 AM EDT Narrative Resulting Agency Comment Spec In Lab Piyush Rojo MD CHEMISTRY ORDERA BLES Performing Organization Address [facility] de Phone Number [facility] [place] [address] * Magnesium (11/12/2019 5:42 AM EDT) Magnesium 0.84 0.69 - 1.07 mmol/L [facility] Blood specimen (specimen) 11/12/2019 5:42 AM EDT 11/12/2019 5:48 AM EDT Narrative Resulting Agency Comment Spec In Lab Piyush Rojo MD CHEMISTRY ORDERA BLES Performing Organization Address [facility] Co de Phone Number [facility] [place] [address] * (ABNORMAL) Hemogram (11/12/2019 5:42 AM EDT) White Blood Cell 10.3(H) 4.0 - 9.5 x10(3)/mc L [facility] Red Blood Cell 6.27(H) 4.58 - 5.54 x10(6)/mc L [facility] Hemoglobin 12.3(L) 13.7 - 16.5 gm/dL [facility] Hematocrit 40.8 40.5 - 48.5 % [facility] Mean Cell Volume 65.1(L) 82.9 - 93.1 fL [facility] Mean Cell Hemoglobin 19.6(L) 27.5 - 32.1 pg [facility] Mean Cell Hemoglobin Concentration 30.1(L) 32.0 - 35.7 gm/dL [facility] Platelet 498(H) 145 - 357 x10(3)/mc L [facility] RDW Standard Deviation 34.4(L) 36.0 - 45.0 fL [facility] RDW coefficient of variation 15.2(H) 11.4 - 13.8 % [facility] Mean Platelet Volume 9.1 7.6 - 12.9 [facility] NRBC% auto 0.0 % [facility] NRBC Absolute 0.000 0.000 - 0.000 x10(3)/mc L [facility] Blood specimen (specimen) 11/12/2019 5:42 AM EDT 11/12/2019 5:48 AM EDT Narrative Resulting Agency Comment Spec In Lab Piyush Rojo MD HEMATOLOGY ORDER JAYCE [facility] [place] [address] * Basic Metabolic Panel (non-fasting) (11/12/2019 5:42 AM EDT) Glucose 92 65 - 199 mg/dL [facility] Comment:Diabetes: >=200 mg/d L plus symptoms Blood Urea Nitrogen 15 10 - 20 mg/dL [facility] Creatinine 0.81 0.80 - 1.50 mg/dL [facility] Sodium 138 135 - 145 mmol/L [facility] Potassium 3.9 3.5 - 5.0 mmol/L [facility] Comment: Please note: ??Patients with WBC >100,000 may have falsely elevated Potassium levels. ??For accurate Potassium quantification in these patients send serum separator tube (gold top) for subsequent determinations. ??Contact the Clinical Chemistry Laboratory if there are any questions. Chloride 100 98 - 107 mmol/L [facility] Carbon Dioxide 26 22 - 31 mmol/L [facility] Anion Gap 12 5 - 15 mmol/L [facility] Calcium 9.1 8.5 - 10.5 mg/dL [facility] Est Glomerular Filtration Rate 93 >=60 mL/min/1. 73 m?? [facility] Comment: The eGFR was calculated using the CKD-EPI equation. As with all creatinine based estimates of kidney function, eGFR values calculated with the CKD-EPI equation are not accurate in patients with acute kidney failure, extremes of body mass or the acutely ill. http://Gratci/[facility] eGFR 108 >=60 mL/min/1. 73 m?? [facility] Comment: The eGFR was calculated using the CKD-EPI equation. As with all creatinine based estimates of kidney function, eGFR values calculated with the CKD-EPI equation are not accurate in patients with acute kidney failure, extremes of body mass or the acutely ill. http://[facility]atci/[facility] Blood specimen (specimen) 11/12/2019 5:42 AM EDT 11/12/2019 5:48 AM EDT Narrative Resulting Agency Comment Spec In Lab Piyush Rojo MD CHEMISTRY ORDERA BLES [facility] [place] [address] * Vancomycin, trough (11/11/2019 3:01 PM EDT) Vancomycin, Trough 9.5 mg/L [facility] Comment: Therapeutic range for complicated infections [...] MD CHEMISTRY ORDERA BLES Performing Organization Address City/[facility] Co de Phone Number [facility] [place] [address] * Phosphorus (11/11/2019 4:09 AM EDT) Phosphorus 3.4 2.5 - 4.5 mg/dL [facility] Blood specimen (specimen) 11/11/2019 4:09 AM EDT 11/11/2019 4:24 AM EDT Narrative Resulting Agency Comment Spec In Lab Piyush Rojo MD CHEMISTRY ORDERA BLES Performing Organization Address [facility] Co de Phone Number [facility] [place] [address] * Magnesium (11/11/2019 4:09 AM EDT) Magnesium 0.84 0.69 - 1.07 mmol/L [facility] Blood specimen (specimen) 11/11/2019 4:09 AM EDT 11/11/2019 4:24 AM EDT Narrative Resulting Agency Comment Spec In Lab Piyush Rojo MD CHEMISTRY ORDERA BLES Performing Organization Address [facility] Co de Phone Number [facility] [place] [address] * (ABNORMAL) Hemogram (11/11/2019 4:09 AM EDT) White Blood Cell 13.8(H) 4.0 - 9.5 x10(3)/mc L [facility] Red Blood Cell 5.36 4.58 - 5.54 x10(6)/mc L [facility] Hemoglobin 10.7(L) 13.7 - 16.5 gm/dL [facility] Hematocrit 34.8(L) 40.5 - 48.5 % [facility] Mean Cell Volume 64.9(L) 82.9 - 93.1 fL [facility] Mean Cell Hemoglobin 20.0(L) 27.5 - 32.1 pg [facility] Mean Cell Hemoglobin Concentration 30.7(L) 32.0 - 35.7 gm/dL [facility] Platelet 384(H) 145 - 357 x10(3)/mc L [facility] RDW Standard Deviation 35.5(L) 36.0 - 45.0 [facility] RDW coefficient of variation 15.7(H) 11.4 - 13.8 % [facility] Mean Platelet Volume 8.9 7.6 - 12.9 [facility]ORY NRBC% auto 0.0 % [facility] NRBC Absolute 0.000 0.000 - 0.000 x10(3)/mc L [facility] Blood specimen (specimen) 11/11/2019 4:09 AM EDT 11/11/2019 4:24 AM EDT Narrative Resulting Agency Comment Spec In Lab Piyush Rojo MD HEMATOLOGY ORDER JAYCE [facility] [place] [address] * (ABNORMAL) Basic Metabolic Panel (non-fasting) (11/11/2019 4:09 AM EDT) Glucose 117 65 - 199 mg/dL [facility] Comment:Diabetes: >=200 mg/d L plus symptoms Blood Urea Nitrogen 22(H) 10 - 20 mg/dL [facility] Creatinine 0.82 0.80 - 1.50 mg/dL [facility] Sodium 139 135 - 145 mmol/L [facility] Potassium 3.9 3.5 - 5.0 mmol/L [facility] Comment: Please note: ??Patients with WBC >100,000 may have falsely elevated Potassium levels. ??For accurate Potassium quantification in these patients send serum separator tube (gold top) for subsequent determinations. ??Contact the Clinical Chemistry Laboratory if there are any questions. Chloride 102 98 - 107 mmol/L [facility] Carbon Dioxide 25 22 - 31 mmol/L [facility] Anion Gap 12 5 - 15 mmol/L [facility] Calcium 8.6 8.5 - 10.5 mg/dL [facility] Est Glomerular Filtration Rate 93 >=60 mL/min/1. 73 m?? [facility] Comment: The eGFR was calculated using the CKD-EPI equation. As with all creatinine based estimates of kidney function, eGFR values calculated with the CKD-EPI equation are not accurate in patients with acute kidney failure, extremes of body mass or the acutely ill. http://Gratci/[facility] eGFR 108 >=60 mL/min/1. 73 m?? [facility] Comment: The eGFR was calculated using the CKD-EPI equation. As with all creatinine based estimates of kidney function, eGFR values calculated with the CKD-EPI equation are not accurate in patients with acute kidney failure, extremes of body mass or the acutely ill. [email or web address]/[email or web address] Blood specimen (specimen) 11/11/2019 4:09 AM EDT 11/11/2019 4:24 AM EDT Narrative Resulting Agency Comment Spec In Lab Piyush Rojo MD CHEMISTRY ORDERA MICHAEL [facility] [place] [address] * XR Chest PA & Lateral (Generic) [...] please contact the number below. ? Narrative 11/10/2019 9:42 AM EDT EXAMINATION: XR [...] this report, please contact the number below. Piyush Rojo MD IMG DX ORDERABLE S * Phosphorus (11/10/2019 8:29 AM EDT) Phosphorus 4.4 2.5 - 4.5 mg/dL [facility] Blood specimen (specimen) 11/10/2019 8:29 AM EDT 11/10/2019 8:54 AM EDT Narrative Resulting Agency Comment Spec In Lab Piyush Rojo MD CHEMISTRY ORDERA BLES Performing Organization Address City/State/[facility] Co de Phone Number [facility] [place] [address] * Magnesium (11/10/2019 8:29 AM EDT) Magnesium 0.86 0.69 - 1.07 mmol/L [facility] Blood specimen (specimen) 11/10/2019 8:29 AM EDT 11/10/2019 8:54 AM EDT Narrative Resulting Agency Comment Spec In Lab Piyush Rojo MD CHEMISTRY ORDERA BLES Performing Organization Address City/[facility]/ZIP Co de Phone Number [facility] [place] [address] * (ABNORMAL) Hemogram (11/10/2019 8:29 AM EDT) White Blood Cell 14.1(H) 4.0 - 9.5 x10(3)/mc L [facility] Red Blood Cell 6.68(H) 4.58 - 5.54 x10(6)/mc L [facility] Hemoglobin 13.2(L) 13.7 - 16.5 gm/dL [facility] Hematocrit 42.8 40.5 - 48.5 % [facility] Mean Cell Volume 64.1(L) 82.9 - 93.1 fL [facility] Mean Cell Hemoglobin 19.8(L) 27.5 - 32.1 pg [facility] Mean Cell Hemoglobin Concentration 30.8(L) 32.0 - 35.7 gm/dL [facility] Platelet 485(H) 145 - 357 x10(3)/mc L [facility] RDW Standard Deviation 33.9(L) 36.0 - 45.0 fL [facility] RDW coefficient of variation 16.2(H) 11.4 - 13.8 % [facility] Mean Platelet Volume 9.6 7.6 - 12.9 fL [facility] NRBC% auto 0.0 % [facility] NRBC Absolute 0.000 0.000 - 0.000 x10(3)/mc L [facility] Blood specimen (specimen) 11/10/2019 8:29 AM EDT 11/10/2019 8:54 AM EDT Narrative Resulting Agency Comment Spec In Lab Piyush Rojo MD HEMATOLOGY ORDER JAYCE Performing Organization Address City/[facility]/ZIP Co de Phone Number [facility] [place] [address] * (ABNORMAL) Basic Metabolic Panel (non-fasting) (11/10/2019 8:29 AM EDT) Glucose 123 65 - 199 mg/dL [facility] Comment:Diabetes: >=200 mg/d L plus symptoms Blood Urea Nitrogen 14 10 - 20 mg/dL [facility] Creatinine 0.75(L) 0.80 - 1.50 mg/dL [facility] Sodium 137 135 - 145 mmol/L [facility] Potassium 4.9 3.5 - 5.0 mmol/L [facility] Comment: Please note: ??Patients with WBC >100,000 may have falsely elevated Potassium levels. ??For accurate Potassium quantification in these patients send serum separator tube (gold top) for subsequent determinations. ??Contact the Clinical Chemistry Laboratory if there are any questions. Chloride 100 98 - 107 mmol/L [facility] Carbon Dioxide 21(L) 22 - 31 mmol/L [facility] Anion Gap 16(H) 5 - 15 mmol/L [facility] Calcium 9.4 8.5 - 10.5 mg/dL [facility] Est Glomerular Filtration Rate 96 >=60 mL/min/1. 73 m?? [facility] Comment: The eGFR was calculated using the CKD-EPI equation. As with all creatinine based estimates of kidney function, eGFR values calculated with the CKD-EPI equation are not accurate in patients with acute kidney failure, extremes of body mass or the acutely ill. http://Gratci/[email or web address] eGFR 112 >=60 mL/min/1. 73 m?? [facility] Comment: The eGFR was calculated using the CKD-EPI equation. As with all creatinine based estimates of kidney function, eGFR values calculated with the CKD-EPI equation are not accurate in patients with acute kidney failure, extremes of body mass or the acutely ill. http://Gratci/[email or web address] Blood specimen (specimen) 11/10/2019 8:29 AM EDT 11/10/2019 8:54 AM EDT Narrative Resulting Agency Comment Spec In Lab Piyush Rojo MD CHEMISTRY ORDERA BLES [facility] [place] [address] * Anaerobic Culture (11/10/2019 12:25 AM EDT) Anaerobic Culture No anaerobic organisms isolated [facility] Specimen from abscess (specimen) THORACIC STRUCTURE / Unknown 11/10/2019 12:25 AM EDT 11/10/2019 7:55 AM EDT Comment:RIGHT CHEST WALL ABS CESS. Narrative Resulting Agency Comment Spec In Lab Piyush Rojo MD MICROBIOLOGY - G ENERAL ORDERABLES Performing Organization Address [facility]/ZIP Co de Phone Number [facility] [place] [address] * (ABNORMAL) Abscess/Wound Aspirate Culture (11/10/2019 12:25 AM EDT) Abscess/Wound Aspirate Culture Moderate Staphylococcus aureus(A) [facility] Gram Stain Moderate Neutrophils seen Few Gram Positive Cocci seen (A) [facility] Organism Staphylococcus aureus(A) [facility] Organism Gram Positive Cocci(A) [facility] Specimen from abscess (specimen) THORACIC [...] Sensitive Comment:Gentamicin i s not appropriate for [place]-therapy. Staphylococcus aureus Levofloxacin VITEK 2 METHOD Sensitive [...] Sensitive Piyush Rojo MD MICROBIOLOGY - G ENERAL ORDERABLES [facility] [place] [address] * COVID-19 PCR (11/09/2019 7:57 PM EDT) SARS-CoV-2 RNA (Rapid) Not Detected Not Detected [facility] Comment: This result should be [...] using the Simplexa COVID-19 Direct Assay by [employer] as authorized by the FDA issued Emergency [...] Department of Pathology and Laboratory Medicine at [facility], certified under the Clinical Laboratory Improvement Amendments [...] Information for Healthcare Professionals (https://www.cdc.gov/coronavirus/2019-ncov/hcp/index.html). SARS-CoV-2 Source [employer] Swab SHERIE BOWIE [facility] Nasopharyngeal swab (specimen) 11/09/2019 7:57 PM EDT 11/09/2019 8:53 PM EDT Comment:Symptoms->Surveillan ce Narrative Resulting Agency Comment Spec In Lab Robert Brambila MD MICROBIOLOGY - GENER AL ORDERABLES [facility] [place] [address] * CT Chest w Contrast (11/09/2019 1:54 [...] contact the number below. ? Narrative 11/09/2019 2:16 PM EDT EXAMINATION: CT [...] No significant findings. Procedure Note Ramses Seals, DO - 11/09/2019 EXAMINATION: CT CHEST W CONTRAST [...] Blue Tube HOLD (11/09/2019 10:50 AM EDT) Pathologist [facility] Blue Hold Sample in lab. [facility] Blood specimen (specimen) Venous Draw / Unknown 11/09/2019 10:50 AM EDT 11/09/2019 10:54 AM EDT Emmett Reynolds MD HEMATOLOGY ORDERABLE S [facility] [place] [place] [address] * (ABNORMAL) Differential, Automated (11/09/2019 10:50 AM EDT) [facility] Neutrophil % 76.8 % [facility] Neutrophil Absolute 11.22(H) 1.70 - 6.10 x10(3)/[facility] Lymph % 10.9 % [facility] Lymphocytes Abs 1.6 0.9 - 3.2 x10(3)/[facility] Monocyte % 9.0 % [facility] Monocyte Abs 1.3(H) 0.3 - 0.9 x10(3)/[facility] Eos % 1.2 % [facility] Eosinophils Abs 0.2 0.0 - 0.4 x10(3)/[facility] Basophil % 0.5 % [facility] Baso Absolute 0.1 0.0 - 0.1 x10(3)/[facility] Immature Gran % 1.60 % [facility] Comment: Immature granulocytes(IG's)percentage and absolute count will include metamyelocytes, myelocytes, and promyelocytes. Blood smears from CBCs yielding IG's will be scanned manually for concordance. If this scan disagrees with the automated IG or if promyelocytes are noted, a manual differential will be performed. Immature Gran Absolute 0.24(H) 0.00 - 0.04 x10(3)/[facility] Blood specimen (specimen) 11/09/2019 10:50 AM EDT 11/09/2019 10:53 AM EDT Narrative Resulting Agency Comment Spec In Lab Emmett Reynolds MD HEMATOLOGY ORDERABLE S [facility] [place] [address] * (ABNORMAL) Hemogram (11/09/2019 10:50 AM EDT) White Blood Cell 14.6(H) 4.0 - 9.5 x10(3)/[facility] Red Blood Cell 6.10(H) 4.58 - 5.54 x10(6)/mc L [facility] Hemoglobin 12.2(L) 13.7 - 16.5 gm/dL [facility] Hematocrit 39.7(L) 40.5 - 48.5 % [facility] Mean Cell Volume 65.1(L) 82.9 - 93.1 fL [facility] Mean Cell Hemoglobin 20.0(L) 27.5 - 32.1 pg [facility] Mean Cell Hemoglobin Concentration 30.7(L) 32.0 - 35.7 gm/dL [facility] Platelet 459(H) 145 - 357 x10(3)/mc L [facility] RDW Standard Deviation 35.4(L) 36.0 - 45.0 [facility] RDW coefficient of variation 16.5(H) 11.4 - 13.8 % [facility] Mean Platelet Volume 9.1 7.6 - 12.9 [facility] NRBC% auto 0.0 % [facility] NRBC Absolute 0.000 0.000 - 0.000 x10(3)/mc L [facility] Blood specimen (specimen) 11/09/2019 10:50 AM EDT 11/09/2019 10:53 AM EDT Narrative Resulting Agency Comment Spec In Lab Emmett Reynolds MD HEMATOLOGY ORDERABLE S [facility] [place] [address] * Basic Metabolic Panel (non-fasting) (11/09/2019 10:50 AM EDT) Glucose 95 65 - 199 mg/dL [facility] Comment:Diabetes: >=200 mg/d L plus symptoms Blood Urea Nitrogen 14 10 - 20 mg/dL [facility] Creatinine 0.80 0.80 - 1.50 mg/dL [facility] Sodium 138 135 - 145 mmol/L [facility] Potassium 4.4 3.5 - 5.0 mmol/L [facility] Comment: Please note: ??Patients with WBC >100,000 may have falsely elevated Potassium levels. ??For accurate Potassium quantification in these patients send serum separator tube (gold top) for subsequent determinations. ??Contact the Clinical Chemistry Laboratory if there are any questions. Chloride 100 98 - 107 mmol/L [facility] Carbon Dioxide 26 22 - 31 mmol/L [facility] Anion Gap 12 5 - 15 mmol/L [facility] Calcium 8.7 8.5 - 10.5 mg/dL [facility] Est Glomerular Filtration Rate 94 >=60 mL/min/1. 73 m?? [facility] Comment: The eGFR was calculated using the CKD-EPI equation. As with all creatinine based estimates of kidney function, eGFR values calculated with the CKD-EPI equation are not accurate in patients with acute kidney failure, extremes of body mass or the acutely ill. http://Gratci/[facility] eGFR 109 >=60 mL/min/1. 73 m?? [facility] Comment: The eGFR was calculated using the CKD-EPI equation. As with all creatinine based estimates of kidney function, eGFR values calculated with the CKD-EPI equation are not accurate in patients with acute kidney failure, extremes of body mass or the acutely ill. [email or web address] Blood specimen (specimen) 11/09/2019 10:50 AM EDT 11/09/2019 10:53 AM EDT Narrative Resulting Agency Comment Spec In Lab Emmett Reynolds MD CHEMISTRY ORDERABLES [facility] [place] [address] * XR Chest PA & Lateral (Generic) [...] ORDERABLES documented in this encounter Visit Diagnoses Not on filedocumented in this encounter Admitting Diagnoses Diagnosis Chest [...] Given 11/13/2019 1:33 PM EDT 1,000 mg BUpivacaine (PF) (MARCAINE) 0.5 % (5 mg/mL) injection ONCE PRN, Starting on 11/10/19 at 0051, Until Sun11/14/19 at 1713, Intra-Operative (Intra-Procedure), Routine Given 11/10/2019 12:51 AM EDT 10 mLs 19- Surgical Site docusate sodium (Colace) [...] Tanna 11/13/19 at 2100, Until Discontinued, Routine Given 11/13/2019 8:42 PM EDT 40 mg ibuprofen (Advil;Motrin) tablet 600 mg 600 mg, [...] Given 11/13/2019 9:48 AM EDT 600 mg lidocaine (XYLOCAINE) 10 mg/mL (1 %) [...] (Recovery-Hospital Unit), Routine documented in this encounter Active and Recently [...] EVER) 0948 (Given - Provider: Becca Wolfe RN)2041 (Given - Provider: Amaris Aguirre RN) 0900 (Not Given - Provider: Shannan Latif RN - Reason: Patient/family refused) enoxaparin (LOVENOX) injection 40 mg 40 mg, Subcutaneous, NIGHTLY, First dose on Tanna 11/13/19 at 2100, Until Discontinued, Routine 204 (Given - Provider: Amaris Aguirre RN) heparin [...] EVER) 0248 (Stopped - Provider: Kaye Goldberg, EVER)0741 (New Bag - Provider: Kaye Goldberg RN)1141 (Stopped - Provider: Becca Wolfe RN)1548 (New Bag - Provider: Becca Wolfe RN)1948 (Stopped - Provider: Amaris Aguirre, RN)2319 (New Bag - Provider: Amaris Aguirre, EVER) 0319 (Stopped - Provider: Amaris Aguirre, EVER)0610 (New Bag - Provider: Amaris Aguirre, EVER)1010 [...] Becca Wolfe, EVER)204 (Given - Provider: Amaris Aguirre RN) 0900 (Not Given - Provider: Shannan Latif RN - Reason: Patient/family refused) sodium chloride 0.9 % (flush) flush 5 mL 5 mL, Intravenous, 2 TIMES DAILY, First dose on Sun11/09/19 at 2100, Until Discontinued, Recovery (Recovery-Hospital Unit), Routine 0938 (Given - Provider: Sarah Beth Briceño RN)204 (Given - Provider: Kaye Goldberg, RN) 0949 (Given - Provider: Becca Wolfe RN)2042 [...] Routine documented in this encounter Care Teams Corporate Development Analyst Relationship Specialty Start Date End Date Christiana Moore APRN [address] [place] [address] PCP - General Family Medicine 09/26/19 documented as of this encounter
--- OUTSIDE RECORDS SUMMARY | 2023-11-12 02:17 | XMS_ITS | Encounter Summary ---
Author Organization [facility] [place] [address] Care Team Providers Care Straight Knife Cutter Machine Name Role Phone Oscar Christiana RYAN Primary Care Provider [phone] Reason for Visit * Reason Onset Date Comments Other 10/30/2019 post op call Encounter Details Date Type Department Care Team (Late st Contact Info) Description 10/30/2019 Telephone [place] [phone] Monica Priec, RN Other (post op call) Social History [...] Telephone Encounter - Monica Price RN - 10/30/2019 10:37 AM EDT Thoracic Surgery Nursing Post-operative Follow up: Hx: s/p Right thoracotomy for mass resection on 10/24/19, discharged 10/26 POD#: 6 General statement: I am doing good. I really am not having any pain, it's more of a discomfort. I cannot sleep well at night but I am ok. Pain: denies pain, just sore/discomfort. Taking only extra strength tylenol 1000 mg every 6 hours. Reviewed taking ibuprofen 600 mg along with the extra strength tylenol 1000 mg scheduled every 6 hours. He verbalized understanding. GI: appetite: good Hydration: good Voiding: without any difficulty BM: having some difficulty - LBM 10/28 but either having diarrhea or harder stool - What is the Bowel regimen: taking miralax, prune juice, colace and senna Respiratory: using IS as directed SOB: denies Coughing with or without sputum: denies Activity: up and about without any difficulty Integumentary: Incisions without any redness, swelling, drainage, fevers, chills, sweats, site hot to touch Plan: RTC on 11/11/19 CXR 11/11/19 Dr. Tesfaye Lantigua is aware of appointments and know to call with any questions or concerns. documented in this encounter Plan of Treatment Not on file documented as of this encounter Visit Diagnoses Not on filedocumented in this encounter Care Teams Straight Knife Cutter Machine Relationship Specialty Start Date End Date Christiana Moore APRN [address] [place] [address] PCP - General Family Medicine 09/26/19 documented as of this encounter
--- OUTSIDE RECORDS SUMMARY | 2023-11-12 02:17 | XMS_ITS | Encounter Summary ---
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 MEDIASTINAL DISSECTION (WRVU 23.48) BRONCHOSCOPY, DIAGNOSTIC (WRVU 2.78) @THORACOSCOPY, SURG; W/DX WEDGE RESC W/ANATOMIC LUNG RESC (WRVU 3) @ROBOT XI THORACOSCOPY-CREATE PERICARDIAL WINDOW OR RESECTION (WRVU 11.94) @RESECTION, DIAPHRAGM WITH SIMPLE REPAIR (WRVU 13.06) @RESECTION STERNUM, RADICAL (WRVU 19.18) Referral ID Status Reason Start Date Expiration Date Visits Re quested Visits Authorized [id number] 1 1 Encounter Details Date Type Department Care Team (Latest Contact Info) Description 10/24/2019 11:11 AM EDT - 10/26/2019 2:05 PM EDT Hospital Encounter [address] [place] [address] Jose Alvarez MD [facility] [place] [address] Mediastinal mass Discharge Disposition: Home Social History Tobacco Use [...] Sign Reading Time Taken Comments Blood Pressure 125/79 10/26/2019 11:52 AM EDT Pulse 94 10/25/2019 11:53 AM EDT Temperature 36.5 ??C (97.7 ??F) 10/26/2019 11:52 AM E DT Respiratory Rate 17 10/26/2019 11:52 AM EDT Oxygen Saturation 97% 10/26/2019 11:52 AM EDT Inhaled Oxygen Concentration - - Weight 77.1 kg (170 lb) 10/26/2019 6:22 AM EDT Height 182.9 cm (6') 10/24/2019 11:35 AM EDT Body Mass Index 23.06 10/24/2019 11:35 AM EDT documented in this encounter Discharge Summaries * Benedicto Cameron PA - 10/26/2019 9:22 AM EDT Department of Thoracic Surgery - Discharge Summary Patient Name: Tree Lantigua Patient Age: 64 y.o. Birthdate: 1955 Admit date: 10/24/2019 Discharge date: 10/26/2019 Attending Physician: Jose Alvarez MD Discharge Diagnoses (Hospital Problems) and Secondary Diagnoses (Chronic Problems): Active Hospital Problems Diagnosis ??? Mediastinal mass Resolved Hospital Problems No resolved problems to display. There are no active non-hospital problems to display for this patient. Operations/Major Procedures: Operations: Case Date: 10/24/2019 Surgeon: Surgeon(s) and Role: * Jose Alvarez MD - Primary * Fatou Dong PA - Physician Personal Lines Agent * Benedicto Cameron PA - Physician Personal Lines Agent * Tree Blum MD - Resident Procedure: Procedure(s) with comments: @THYMECTOMY W/ RAD. MEDIASTINAL DISSECTION (WRVU 23.48) - Bronch, right thoracotomy, resection of anterior mediastinal mass, multiple wedges, possible pericardial resection & reconstruction, possible diaphragm resection & reconstruction. Possible sternotomy. 4.5 hours BRONCHOSCOPY, DIAGNOSTIC (WRVU 2.78) @THORACOTOMY; W/ THERAPEUTIC WEDGE RESECTION , INITIAL (WRVU 15.75) NERVE BLOCK, INTERCOSTAL NERVE, MULTIPLE (WRVU 1.68) @THORACOTOMY; W/THERAPEUTIC WEDGE RESECTION, EA ADD'L RESC, IPSILATERAL (WRVU 3) THORACOSCOPY; WITH BIOPSY(IES) OF PLEURA (WRVU 4.58) Other Major Procedures: History of Presentation: Tree Lantigua is a previously healthy 64 y.o. male recently found to have a large mediastinal mass. Patient states that he was having severe joint pain, out of the ordinary from his typical muscle aches. He reports that this began approximately 6 months ago and it would migrate and wax and wane. He felt it most in his fingers, ankles, and knees. It would progressively get worse during the day kelsie was more active. The pain would last a few days then improve. The pain improved with Advil. He has been feeling increasingly lethargic, and feels like he has no get up and go. He hasn't been sleeping any more but has felt less energetic for the past past 2 months. He has also lost ~5lbs in thepast few months despite his normal good appetite though he attributes this to a recent trip where he walked more . ?? 1 month ago he began to have a severe pain in his left chest wall. It worsened with breathing and movement. He described it as a sharp pain. This concerned him enough to go to a health care practitioner who auscultated an abnormality in his left midaxillary region and recommended that he get a chest x-ray on 09/26/19. There they noticed a large mediastinal mass and recommended an additional chest CT. Hospital Course: Tree Lantigua was admitted to [facility] 10[facility]24/2019 [facility]. He was brought to the operating room on 10/24/[address] Jose Alvarez performed surgery as described above. He tolerated the procedure well and was brought to the Post Anesthesia Care Unit for recovery. After a brief period of time he was transferred to the floor for continued rehabilitation. The right chest tube was discontinued on post operative day # 2. A chest Xrayafter this demonstrated stable minimal right apical PTX. By postoperative day # 2 he had met all criteria for discharge to home. Pain was controlled on oral medications. He had walked 5 minutes. He was tolerating a regular diet. Vital signs: Vital Signs Temp: 36.5 ??C (97.7 ??F) Temp src: Oral Heart Rate from SpO2: 84 bpm Heart Rate: 94 Heart Rate Source: Monitor Resp: 17 BP: 125/79 MAP (NBP): 94 mmHg BP Method: Automatic Patient Position: Lying SpO2: 97 % O2 Flow Rate (L/min): 3 L/min O2 Device: None (Room air) Admission Wt: 78.93 kg Last Wt: Wt Readings from Last 3 Encounters: 10/26/19 77.1 kg (170 lb) 09/30/19 79.1 kg (174 lb 6.4 oz) Pertinent physical exam findings prior to discharge: Gen: NAD, pleasant, sitting in the chair HEENT: normocephalic, atraumatic, EOMI, sclerae anicteric Neck: supple, trachea midline Card: RRR, no M/R/G appreciated Pulm: CTAB, no wheeze/ronchi/rales appreciated, non-labored breathing on RA Abd: soft, NT, BS+ Ext: warm, dry, no edema Neuro: A&Ox3, CN II-XII grossly intact, nonfocal, conversant Important Lab Data: Lab Results Component Value Date WBC 13.3 (H) 10/25/2019 HGB 12.9 (L) 10/25/2019 HCT 42.1 10/25/2019 MCV 66.5 (L) 10/25/2019 Lab Results Component Value Date NA 136 10/25/2019 K 4.5 10/25/2019 CL 101 10/25/2019 CO2 24 10/25/2019 Lab Results Component Value Date CREATININE 0.71 (L) 10/25/2019 Lab Results Component Value Date BUN 12 10/25/2019 No results found for: PREALBUMIN No results for input(s): PT, PTT, INR in the last 168 hours. Studies: CXR 10/26/2019 Post pull CXR Stable minimal apical ptx - official read pending CXR PA/Lat 10/25/2019 Right-sided chest tube, minimal right apical pneumothorax without shift. Expected postsurgical change. Bibasilar atelectasis and small effusions. Pending Studies and Lab Data: The patient will need the following 3 tests completed on: 10/06/2019 1. AFB culture Lung 3. Fungus culture Other 2. XR Chest PA & Lateral (Generic) Diagnosis: Authorizing Provider: Jose Alvarez MD Discharge Conditions/Prognosis: Stable Discharge to: Home Discharge Medications: Your Medications New Medications Dose Details acetaminophen 500 mg Tab Commonly known as: Tylenol Take 2 tablets by mouth every 6 hours. 1,000 mg Quantity: 30 tablet Refills: 0 docusate sodium 100 mg Cap Commonly known as: Colace Take 1 capsule by mouth 3 times daily for 10 days. 100 mg Quantity: 20 capsule Refills: 0 oxyCODONE 5 mg Tab Commonly known as: Roxicodone Take 1 tablet by mouth every 4 hours as needed for Pain. 5 mg Quantity: 15 tablet Refills: 0 senna 8.6 mg Tab [...] a nurse in the Thoracic Clinic at [phone]. After hours or on weekends or holidays please call: [phone] and ask to speak to the Thoracic [...] narcotic pain medication. Shower/Bath: You may shower daily starting 2 [...] the Thoracic Clinic or the Thoracic Surgeon penetration tester after hours. Please take over the counter Tylenol and Ibuprofen in an alternating fashion, as instructed, for baseline pain coverage. Do not exceed recommended dosages. Take the Oxycodone, as prescribed, for painnot controlled by the Tylenol and Ibuprofen. We are unable to refill narcotics after [...] properly when you no longerneed these pills. No flowsheet data found. Tree Lantigua is being prescribed a prescription [...] office. Follow up appointments: You will see Dr Alvarez in 2 weeks with a chest Xray within one hour of the appointment. A letter will be mailed to you confirming your appointment information. No future appointments. General Instructions None Opioid PDMP 10/06/2019 [place] PDMP Query Date 10/26/2019 [place] PDMP Query Date 10/26/2019 [place] PDMP Query Date 10/26/2019 Tree Lantigua is being prescribed a [...] to chart. Future Appointments and Orders Future Orders Complete By Expires XR Chest PA & Lateral (Generic) [[id number] Custom] 11/09/2019 04/27/2020 Process Instructions: Scheduling Instructions: Questions: Where will study be performed?: [facility] Radiology Portable exam?: Reason for exam and clinical history: s/p R thoractomy w/ anteror mediastinal mass resection Clinical information / limon questions: please eval for PTX or effusions Stat read required?: Date of injury if applicable: Requested Time: Provider Contact Information: Primary Care Provider: Christiana Moore APRN [phone] Discharge References/Attachments: Discharge References/Attachments None For questions regarding this document or issues relating to this hospitalization on the Thoracic Surgery Service, please contact Dr. Alvarez's office at . Signed: SOCRATES Castle 10/26/2019 Thoracic Surgery [facility] CC: PCP: Christiana Moore APRN Referring: Sadie Cavazos Md [address] [place] [address] documented in this encounter Discharge Instructions * Patient Instructions* Benedicto Cameron PA - 10/24/2019 5:04 PM EDT Images from the original note were not included. Call if you have a fever of greater than 101 degrees, shaking chills, develop redness or drainage from your incision site(s), or if you have questions. During normal business hours, Sunday- Sunday 8:00 a.m.-5:00 p.m., please call to speak to a nurse in the Thoracic Clinic at [phone]. After hours or on weekends or holidays please call: [phone] and ask to speak to the Thoracic [...] narcotic pain medication. Shower/Bath: You may shower daily starting 2 [...] the Thoracic Clinic or the Thoracic Surgeon penetration tester after hours. Please take over the counter Tylenol and Ibuprofen in an alternating fashion, as instructed, for baseline pain coverage. Do not exceed recommended dosages. Take the Oxycodone, as prescribed, for painnot controlled by the Tylenol and Ibuprofen. We are unable to refill narcotics after [...] properly when you no longerneed these pills. No flowsheet data found. Tree Lantigua is being prescribed a prescription [...] office. Follow up appointments: You will see Dr Alvarez in 2 weeks with a chest Xray within one hour of the appointment. A letter will be mailed to you confirming your appointment information. No future appointments. documented in this encounter Medications at Time of Discharge Medication Sig Dispensed Refills Start Date End Date docusate sodium (Colace) 100 mg Capsule Take 1 capsule by mouth 3 times daily for 10 days. 20 capsule 10/26/2019 11/05/2019 acetaminophen (Tylenol) 500 mg Tablet Take 2 tablets by mouth every 6 hours. 30 tablet 10/26/2019 03/20/2023 oxyCODONE (Roxicodone) 5 mg Tablet Take 1 tablet by mouth every 4 hours as needed for Pain. 15 tablet 10/26/2019 11/14/2019 senna (Senokot) 8.6 mg Tablet Take 2 tablets by mouth every evening. 60 tablet 10/26/2019 03/20/2023 documented as of this encounter Progress Notes * Ana Luisa Ramirez RN - 10/26/2019 1:49 PM EDT Pt d/c to home per md order. Patient AOx4 hrr, lung sounds clear with slight wheezes at RLL, no n/vsob or chest pain at time of discharge. +bs, lbm 10/24/2019, voiding clear yellow urine. Patient ambulating independently at this time. Pain well controlled. All LDA's removed. All belongings home with patient. Prescriptions given to patient, all discharge instructions reviewed with patient. All questions answered. Please see flowsheet for full assessment. Ana Luisa Ramirez RN * Janessa Alex MD - 10/25/2019 5:07 PM EDT [facility] Department of Thoracic Surgery Inpatient Progress Note Patient Name: Tree Lantigua Patient : 1955 Patient Patient Location: [address] [place] [address]- Attending Surgeon: JOSE ALVAREZ ID: Tree Lantigua is a 64 y.o. 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 24 Hour Events / Subjective: - POC unremarkable, NAEON - Pain well controlled this am Vitals: Temp: [36.2 ??C (97.2 ??F)-37 ??C (98.6 ??F)] Heart Rate: [94-100] Resp: [17-24] BP: (80-132)/(55-81) SpO2: [92 %-100 %] Heart Rate from SpO2: [89 bpm-108 bpm] Wt & BMI By Encounter Date Admission (Current) from 10/24/2019 in 3 [facility] Office Visit from 09/30/2019 in Thoracic [place] [facility] Weight 78.9 kg (174 lb) 1 10/24/2019 1135 79.1 kg (174 lb 6.4 oz) [with shoes] 1 09/30/2019 1253 BMI 23.6 1 10/24/2019 1135 24.14 1 09/30/2019 1253 Physical Exam: Gen: NAD, pleasant, sitting up in bed HEENT: Normocephalic, EOMI, sclerae anicteric Neck: Supple, trachea midline Card: Normal rate, regular rhythm, no murmurs Pulm: CTAB, no wheezes, non-labored breathing on RA CT to -20 sxn with no airleak Abd: Soft, NT Ext: Warm, dry, no edema Neuro: A&O, no focal deficits, conversant I/O: I/O last 3 completed shifts: In: 3423 [P.O.:400; I.V.:3023] Out: 2420 [Urine:2049; Other:320; Blood:50] Labs: Recent Labs 10/25/19 0330 WBC 13.3* HGB 12.9* HCT 42.1 PLATELET 325 No results for input(s): INR in the last 72 hours. Recent Labs 10/25/19 0330 NA 136 K 4.5 CL 101 CO2 24 BUN 12 CREATININE 0.71* Diagnostics: CXR PA/Lat 10/25/2019 Right-sided chest tube, minimal right apical pneumothorax without shift. Expected postsurgical change. Bibasilar atelectasis and small effusions. Micro: Intraoperative tissue & body fluid cultures NGTD Assessment: Tree Lantigua is a 64 y.o. 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 He is recovering very well. Plan: Neuro: Scheduled tylenol and toradol for pain, PRN oxy for breakthrough Card: HDS Pulm: CT to water seal, monitor output. Encourage ambulation, IS, deep cough. FENGI: IVF hep locked given adequate PO intake. Renal/: Hylton removed, UOP adequate. Heme: SQH TID ID: no concerns Endo: no concerns PPx: SCDs while in bed. Dispo: Full code. Floor status. Likely will discharge to home tomorrow. All plans formulated in discussion with and directed by attending thoracic surgeon Dr. Alvarez. Janessa Alex MD 10/25/2019 Thoracic Surgery Service Pager [phone] * Deloris Szymanski MD - 10/24/2019 11:28 PM EDT Post-Operative Check Tree Lantigua is a 64 y.o. male s/p Procedure(s): @THYMECTOMY W/ RAD. MEDIASTINAL DISSECTION (WRVU 23.48) BRONCHOSCOPY, DIAGNOSTIC (WRVU 2.78) @THORACOTOMY; W/ THERAPEUTIC WEDGE RESECTION , INITIAL (WRVU 15.75) NERVE BLOCK, INTERCOSTAL NERVE, MULTIPLE (WRVU 1.68) @THORACOTOMY; W/THERAPEUTIC WEDGE RESECTION, EA ADD'L RESC, IPSILATERAL (WRVU 3) THORACOSCOPY; WITH BIOPSY(IES) OF PLEURA (WRVU 4.58) S: No nausea/vomiting, chest pain, SOB, pain well controlled, feels some tightness in chest but mentions it was present prior to his procedure today; denies Hylton discomfort, offers no other complaints O: Temp: [36.2 ??C (97.2 ??F)-37 ??C (98.6 ??F)] Heart Rate: [94-100] Resp: [18-24] BP: (100-132)/(69-81) SpO2: [94 %-100 %] Heart Rate from SpO2: [94 bpm-103 bpm] I/O last 3 completed shifts: In: 1999 [I.V.:1999] Out: 315 [Urine:200; Other:65; Blood:50] I/O this shift: In: 823 [P.O.:400; I.V.:423] Out: 1609 [Urine:1550; Other:59] Recent Results (from the past 24 hour(s)) Tissue culture Result Value Ref Range Gram Stain Moderate Neutrophils seen No microorganisms seen. Results called to and read back by DR. ALVAREZ. Body Fluid Culture, Aerobic Result Value Ref Range Gram Stain Cytocentrifuge Gram Stain performed Neutrophils seen No microorganisms seen. Results called to and read back by DR. ALVAREZ. BLOOD GAS 2 ARTERIAL Result Value Ref Range pH Art 7.35 7.35 - 7.45 pCO2 Art 45 35 - 45 mmHg pO2 Art 81 (L) 85 - 104 mmHg HCO3 Art 24.4 20.0 - 26.0 mmol/L BE Art -1.2 -3.0 - 3.0 mmol/L Hgb Blood Gas 13.0 (L) 13.7 - 16.5 gm/dL O2HB Art 93.9 (L) 94.0 - 97.0 % COHB Art 1.3 % METHB Art 0.3 <=1.5 % Na Whole Blood 135 135 - 145 mmol/L K Whole Blood 3.9 3.5 - 5.0 mmol/L ICa Whole Blood 1.19 1.15 - 1.33 mmol/L CL Whole Blood 103 98 - 107 mmol/L Gluc Whole Bld 144 65 - 199 mg/dL Lactate WB 1.0 0.5 - 2.2 mmol/L FIO2 Art 84 % PF Ratio Art 96 Temp Art 37.1 Celsius Surgical Pathology Report Result Value Ref Range Surgical Pathology Report [id number] Location: OR; OR11; A The signing pathologist has (i) examined the relevant preparation(s) for the specimen(s) and (ii) rendered or confirmed the diagnosis(es). . 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 BFS1 - Right lower lobe wedge, nodule for frozen section: - Benign parenchymal lymph node. CFS1 - Right middle lobe wedge, nodule for frozen section: - Benign parenchymal lymph node. 10/24/19 16:32 /jrp DFS1 - Right upper lobe wedge, nodule for frozen section: - Benign parenchymal lymph node. EFS1 - Right upper lobe wedge #2, nodule for frozen section: - Benign parenchymal lymph node with granulomas. 10/24/19 17:04 /jrp Electronically signed by: MD Alicia, Jarrod Vora Verified: 10/24/2019 Pathologist Performed at: [place] [place] [facility], [place], [place] This intraoperative consultation should be interpreted as a preliminary diagnosis pending review of the entire specimen and special studies, if any. Basic Metabolic Panel (non-fasting) Result Value Ref Range Glucose Lvl 154 65 - 199 mg/dL BUN 12 10 - 20 mg/dL Creatinine 0.76 (L) 0.80 - 1.50 mg/dL Sodium 136 135 - 145 mmol/L Potassium 3.7 3.5 - 5.0 mmol/L Chloride 102 98 - 107 mmol/L CO2 22 22 - 31 mmol/L Anion Gap 12 5 - 15 mmol/L Calcium 8.4 (L) 8.5 - 10.5 mg/dL eGFR 96 >=60 mL/min/1.73 m?? eGFR 111 >=60 mL/min/1.73 m?? Physical Exam Gen: A0x3, NAD, resting comfortably in bed CVS: RRR, no murmurs/rubs/gallops Resp: CTAB, breathing comfortably on RA; R CT to -20 sxn, SS output, no airleak Abd: soft, nondistended : hylton in place, yellow urine in bag Ext: SCDs in place, WWP AP Tree Lantigua is a 64 y.o. male POD0 s/p thymectomy with radical mediastinal dissection, wedge resction x3 currently in stable condition and recovering well - VS q4h, Regular diet - Pain well controlled - Keep CT to -20 suction - F/u AM labs - SCDs, SQH q8h - Hemodynamically stable, UOP adequate - Continue post operative plan per primary team Delrois Szymanski MD 10/24/2019 * Paula Marion RN - 10/24/2019 8:45 PM EDT Received pt from transpo via bed. Pt reports feeing no pain at this time. Assessment completed. Pt VU to call for any assist needed, signs and symptoms to report, meds, and pathway. * Sera Silva RN - 10/24/2019 6:50 PM EDT Report taken, care assumed. Pt on standard monitors with alarms set and audible. Comfortable, only c/o hylton discomfort. 1930: Comfortable, VSS. Awaiting room assignment. 2015: Report to EVER Mitchell on . Pt transported to room via bed with chest tube on suction. * Elke Wilcox RN - 10/24/2019 6:40 PM EDT 1811 Patient received from OR, placed on monitors and alarms set. Right chest tube to -20 cm suction, atrium drainage. 1819 Patient awakening, denies post-op pain but reporting hylton discomfort. documented in this encounter H&P Notes * Tree Blum MD - 10/24/2019 11:58 AM EDT Thoracic Surgery Preop NAME: Tree Lantigua DATE: 10/24/19 SURGEON: Jose Alvarez MD PROCEDURE: right thoracotomy, resection of anterior mediastinal mass with possible diaphragm resection and reconstruction, multiple wedge resections BRIEF HISTORY: Tree Lantigua is a 64 y.o. male who was found to have an anterior mediastinal mass during a work up for muscle pain and lethargy The patient reports no interval change. There has been no interval medical illness or hospitalizations. Questions have been addressed. Smoking HX: Social History Tobacco Use Smoking Status Never Smoker Smokeless Tobacco Never Used PMH: Patient Active Problem List Diagnosis Date Noted ??? Mediastinal mass 10/07/2019 PSH: No past surgical history on file. MEDS: No current facility-administered medications on file prior to encounter. No current outpatient medications on file prior to encounter. ALL: Allergies Allergen Reactions ??? Wasp Venom Physical Exam Most Recent Vitals: 10/24/19 1135 BP: 141/76 Pulse: 89 Resp: 16 Temp: 37 ??C (98.6 ??F) SpO2: 99% Gen: NAD, pleasant, sitting HEENT: normocephalic, atraumatic, EOMI, sclerae anicteric Neck: supple, trachea midline Card: RRR, no M/R/G appreciated Pulm: CTAB, no wheeze/ronchi/rales appreciated, non-labored breathing on RA Abd: soft, NT, BS+ Ext: warm, dry, no edema Neuro: A&Ox3, CN II-XII grossly intact, nonfocal, conversant LABS: Lab Results Component Value Date WBC 10.8 (H) 09/30/2019 RBC 6.48 (H) 09/30/2019 HGB 13.4 (L) 09/30/2019 HCT 44.0 09/30/2019 MCV 67.9 (L) 09/30/2019 MCH 20.7 (L) 09/30/2019 MCHC 30.5 (L) 09/30/2019 PLATELET 321 09/30/2019 RDWCV 17.3 (H) 09/30/2019 Lab Results Component Value Date/Time NA 135 09/30/2019 04:03 PM K 3.9 09/30/2019 04:03 PM CL 101 09/30/2019 04:03 PM CO2 24 09/30/2019 04:03 PM BUN 13 09/30/2019 04:03 PM CREATININE 0.79 (L) 09/30/2019 04:03 PM EKG: (09/30/19): Normal sinus rhythm Possible Left atrial enlargement Left ventricular hypertrophy CT: (09/30/19) 1. 8.5 cm lobulated mass adjacent to the right heart border. 2. Multiple bilateral pulmonary nodules suspicious of metastases, largest 9 mm 3. Mildly enlarged axillary LN -- no other LAD 4. Lucency in the posterior left 4th rib PET: (10/08/19): 1. A 9 cm moderately FDG avid mass in the right anterior mediastinum abutting the pericardium, with pericardial invasion not excluded. 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 2. CT visualized subcentimeter pulmonary nodules in both lungs as detailed above are indeterminate and may be below the sensitivity of PET. Small pulmonary metastases not excluded. 3. Small mildly FDG lymph nodes in the bilateral hilar region, favored to represent benign reactive nodes. 4. Multiple small FDG avid lymph nodes in the bilateral neck, axillary, and bilateral external iliac and inguinal regions, which most likely represent benign reactive nodes. 5. Unexpected finding. Segmental area of heterogeneously increased FDG uptake in the sigmoid colon where there is diverticular disease and a suggestion of adjacent soft tissue stranding on CT. Findings are highly suggestive of diverticulitis, of questionable clinical significance. Please correlate with clinical exam. PFTs: (10/07/19): FVC 4.32 (98%); FEV1 3.44 (102%); DLCO 90%; DLCOhb 103% MED/CARD CLEARANCE/MIBI/VQ SCAN FILM ON PACS: Yes CONSENT: Yes/EMR - Yes Assessment/Plan: Tree Lantigua is a 64 y.o. male presenting today for right thoracotomy, resectionof anterior mediastinal mass with possible diaphragm resection and reconstruction, multiple wedge resections due to 8.5 cm right anterior mediastinal mass with multiple lung nodules concerning for metastatic disease. Consent signed and confirmed in chart. Questions addressed. Will proceed with planned surgery. Tree Blum MD 10/24/2019 documented in this encounter Miscellaneous Notes * Initial Assessments - Dave Joseph RN - 10/25/2019 5:46 PM EDT Office of Care Management Assessment Medical record reviewed. Plan of care and patient status discussed with direct care RN and/or Care Team in multidisciplinary rounds. Screening: Last COVID test: Collected 10/20 - 10:27. Resulted 10/20 - 22:51: Not detected. 64 y.o. male here for mediastinal mass. Present on Admission: ??? Mediastinal mass Patient has not been admitted to a hospital within the last 30 days. Patient receiving hospital care under IPI- SDP Admission (IP) status. Admission order reviewed. Primary Insurance on file: [facility] [employer] MEDICARE Secondary Insurance on file: None Primary care provider on file: Christiana Moore, [employer] [phone] Advance Directive on file and Code Status: Full Code Patient???s Functional Status: Independent in IADLs Living Situation: Has Lillian Tyson [address] [facility] [address] Supports: Family Assessment: Patient with no apparent RNCM/SW needs at this time. No housing, transportation, insurance, resources concerns identified at this time. Supports in place to achieve a safe post-hospital transition. No identified barriers to accessing necessary care and/or follow-up after discharge. Plan: Patient to d/c to home via private vehicle when medically ready. state's attorney/Hedge Fund Accountant will continue to follow patient???s progress and remain available if situation changes for coordination of care, psychosocial support and/or discharge planning. Dave Joseph RN Pager [phone] * Plan of Care - Master Campbell RN - 10/25/2019 5:07 PM EDT Problem: Patient Care Overview Goal: Plan of Care Review Outcome: Ongoing (Interventions Implemented as Appropriate) 10/25/19 0700 10/25/19 1654 Plan of Care Review Progress -- progress toward functional goals as expected Coping/Psychosocial Plan Of Care Reviewed With patient -- OUTCOME EVALUATION NOTE: OUTCOME SUMMARY: Pt A&OX4. Hypotensive (team notified), tachy, all other VSS on RA. No c/o chest pain or SOB. Chest tube in place draining serosanguinous fluid (see doc flow). Chest tube dressing c/d/i. Dressing to back c/d/i. Ambulated in blanchard throughout day. Up in chair for majority of shift. Pain adequately controlled w/ scheduled meds. Voiding adequately throughout day (see doc flow for PVRs). No acute amna nts. Will cont to monitor. PLAN MOVING FORWARD: CT output Mobility Pain management Dc planning INDIVIDUALIZED FALL PREVENTION INTERVENTIONS: Patient-specific fall risk factors per assessment: [current deficits]: Pain, lines/drains, hospitalenvironment, generalized weakness Assistance [level of assistance required for transfers and ambulation]: SBA Supervision [direct monitoring required during toileting and ADLs]: Eyes on Surveillance [continuous indirect monitoring]: Masimo, NKE, hourly rounding, bed alarm, call james within reach Patient-specific fall prevention interventions for sensory deficits provided, if applicable: [X] N/A * Plan of Care - Paula Marion RN - 10/25/2019 5:35 AM EDT Problem: Patient Care Overview Goal: Plan of Care Review Outcome: Ongoing (Interventions Implemented as Appropriate) 10/24/192199 Coping/Psychosocial Plan Of Care Reviewed With patient Goal: Fall Prevention-Safe Patient Handling Outcome: Ongoing (Interventions Implemented as Appropriate) 10/24/19219910/25/19 0200 Viera Fall Risk History of Falling 0 -- Secondary Diagnosis 0 -- Ambulatory Aids 0 -- Intravenous Therapy/Heparin/Saline Lock 20 -- Gait/Transferring 0 -- Mental Status 0 -- Score 20 -- OTHER Viera Fall Risk Low -- Restraint Interventions Safety Promotion/Fall Prevention safety round/check completed -- Positioning Body Position independent -- Activity Activity Type -- activity adjusted per tolerance Activity Assistance Provided -- assistance, 1 person Goal: Infection Control Outcome: Ongoing (Interventions Implemented as Appropriate) 10/24/192199 Safety Interventions Isolation Precautions airborne precautions initiated Infection Prevention barrier precautions utilized;single patient room provided Coping Strategies Supportive Measures active listening utilized OUTCOME EVALUATION NOTE: OUTCOME SUMMARY: Pt AO, VSS. Able to make needs known appropriately. Chest tube putting out serosanguinous fluid. Noair leaks noted. Up with assist. Repositioning independently in bed. Pt reported dull pain which ishelped by prn pain meds. Appeared to rest comfortably between care. Will continue to monitor and notify MD of acute changes. PLAN MOVING FORWARD: Provide safety INDIVIDUALIZED FALL PREVENTION INTERVENTIONS: Patient-specific fall risk factors per assessment: [current deficits]: Masimo Assistance [level of assistance required for transfers and ambulation]: Supervision [direct monitoring required during toileting and ADLs]: Surveillance [continuous indirect monitoring]: Room near nurses station, hourly rounding, call light w/ in reach Patient-specific fall prevention interventions for sensory deficits provided, if applicable: N/A CPG GOAL OUTCOME EVALUATION: * Brief Op Note - Jose Alvarez MD - 10/24/2019 6:09 PM EDT Brief Operative Note Patient Name: Tree Lantigua : [id number] MR#: [id number] Case Date: 10/24/2019 Surgeon: Surgeon(s) and Role: * Jose Alvarez MD - Primary * Fatou Dong PA - Physician Personal Lines Agent * Benedicto Cameron PA - Physician Personal Lines Agent * Tree Blum MD - Resident Preoperative diagnosis: Anterior mediastinal mass Postoperative diagnosis: Anterior mediastinal mass Procedure(s) (LRB): @THYMECTOMY W/ RAD. MEDIASTINAL DISSECTION (WRVU 23.48) (Right) BRONCHOSCOPY, DIAGNOSTIC (WRVU 2.78) (N/A) @THORACOTOMY; W/ THERAPEUTIC WEDGE RESECTION , INITIAL (WRVU 15.75) (Right) NERVE BLOCK, INTERCOSTAL NERVE, MULTIPLE (WRVU 1.68) (Right) @THORACOTOMY; W/THERAPEUTIC WEDGE RESECTION, EA ADD'L RESC, IPSILATERAL (WRVU 3) (Right) THORACOSCOPY; WITH BIOPSY(IES) OF PLEURA (WRVU 4.58) (Right) Anesthesia: General Findings: -right posterolateral thoracotomy for resection of anterior right mediastinal mass -- frozen c/w spindle cell neoplasm -wedge resection x4 for nodules -- all benign intraparenchymal LN on frozen -28F chest tube placed posteirorly Complications: none Estimated Blood Loss: 50 mL Specimens removed during surgery: Order Name Source Comment Collection Info Order Time CYTOPATHOLOGY NON-GYNECOLOGICAL Right pleural fluid OR 10/24/2019 2:58 PM Pertinent clinical data and significant therapy: Anterior mediastinal mass Clinical impression: Anterior mediastinal mass Procedure Type: Other (please specify in Comments Field below) Specimen Type: Pleural fluid (thoracentesis) Description and source of specimen: Right pleural fluid SPECIMEN TO PATHOLOGY Anterior mediastinal mass OR 11 Anterior mediastinal mass Anterior mediastinal mass resection YES, Please perform frozen section No 10/24/2019 3:43 PM Number of tissue samples (in container) 1 Time specimen removed from patient: 3:42 PM SPECIMEN TO PATHOLOGY Right lower lobe wedge OR 11 [id number] Anterior mediastinal mass Right lower lobe wedge excision YES, Please perform frozen section No 10/24/2019 3:59 PM Number of tissue samples (in container) 1 Time specimen removed from patient: 3:59 PM SPECIMEN TO PATHOLOGY Right middle lobe wedge OR 11 [id number] Anterior mediastinal mass Right middle lobe wedge excision YES, Please perform frozen section No 10/24/2019 4:04 PM Number of tissue samples (in container) 1 Time specimen removed from patient: 4:04 PM SPECIMEN TO PATHOLOGY Right upper lobe wedge [place] 11 [id number] Anterior mediastinal mass Right upper lobe wedge excision YES, Please perform frozen section No 10/24/2019 4:22 PM Number of tissue samples (in container) 1 Time specimen removed from patient: 4:22 PM SPECIMEN TO PATHOLOGY Right upper lobe wedge #2 OR 11 [id number] Anterior mediastinal mass Right upper lobe wedge #2 excision YES, Please perform frozen section No 10/24/2019 4:36 PM Number of tissue samples (in container) 1 Time specimen removed from patient: 4:36 PM Fluids: Intraprocedure Crystalloid Total None PRBCs: none (See Anesthesia Record/Report for Other Blood Products) Urine Output: 75 mL Drains: 28F Chest tube Disposition: awakened from anesthesia, extubated and taken to the recovery room in a stable condition, having suffered no apparent untoward event. Condition: doing well without problems (Please see the Surgical Encounter Summary for any Implant and Specimen details pertinent to this patient.) Infection Bundle used? 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 Operative indications: This is a 64-year-old male who presented with anterior chest pain and was incidentally noted to have a 9 cm anterior mediastinal mass. Imaging also noted that he had bilateral lung nodules that were PET avid and concerning for metastatic disease. 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 [facility] Operative findings: Approximately 200 cc of electric green cloudy fluid, negative on stat Gram stain for microorganisms. Large anterior mediastinal mass involving the cardiac fat pad, abutting the phrenic nerve but not invading it and not invading the diaphragm or the pericardium. Frozen section consistent with a spindle cell neoplasm, will defer to permanent. Four lung nodules resected and frozen section consistent with benign intraparenchymal lymph nodes. Operative dictation: After consent was obtained, the patient was marked, brought to the operating room placed in the supine position. Double-lumen endotracheal anesthesia was administered without anydifficulty, timeout was performed and a P1 90 Olympus bronchoscope was advanced. He had normal tracheobronchial tree minimal secretions, no endobronchial lesions. Given the findings on the bronchoscopy, we are able to proceed forward with the planned operation. The patient was positioned in the left lateral decubitus position with the right arm position to reduce any injury to the brachial plexus. Sterile prep and drape are done usual fashion, timeout was performed and a Veress needle was advanced at the tip of the scapula into the chest cavity or CO2 gas insufflation was performed. Prior to making any incisions, 0.5% Marcaine was instilled in each incision site. In approximately the eighthinterspace in the posterior axillary line a 1 cm incision was performed through which a 5 mm port was advanced. The camera was advanced and he was noted to have some fibrinous exudate within the pleural space as well as a moderate amount of electric green cloudy fluid. He had significant adhesions of the lower lobe to the diaphragm and the anterior mediastinum inferiorly. The fluid was evacuated and caught a trap some sent for cytology the rest sent for culture including a stat Gram stain. A second port was placed and we attempted to dissect the lung off the diaphragm in the anterior mediastinum. We able to do a partial decortication and identify the mass in the anterior inferior aspect of the mediastinum. Given the size of the lesion, the adhesions that we are encountering as well as theneed for multiple wedge resections, further dissection was not performed via the VATS. Intercostal blocks using Exparel was performed over 6 levels under direct visualization. We then performed a 12 cm posterior lateral thoracotomy incision, taking the latissimus and sparing the serratus muscle andcreating small muscle flaps. The sixth interspace was incised and a Finochietto retractor was placed. We started our dissection anteriorly, dissected the lung off of the anterior mediastinum both bluntly and with electrocautery. We mobilized the further aspects of the lung off the diaphragm to fully mobilize it. We then dissected the anterior mediastinal mass, taking some of the pericardial fat pad, dissecting it through a very obvious plane off the pericardium and the diaphragm and then takingcare as we dissected off the phrenic nerve to which it was adherent to but not invaded by. The masswas then passed off and sent for frozen section. We turned our attention to the multiple nodules inthe lung and found 5 of them. We did a wedge resection using a tri-staple purple load of the right lower lobe and sent this for frozen section. We palpated multiple nodules, many of which were on the surface and were obvious that they were intraparenchymal lymph nodes and these were not removed. The remaining nodules were deeper in the right middle lobe and right upper lobe and these were taken out with needlepoint cautery and the pleura closed with a running 4-0 PDS suture. These were all sentfor frozen section and all of them came back as benign intraparenchymal lymph nodes. Though there were other nodules, further wedge resection was not indicated given this pathology. Adequate hemostasis was ensured throughout the entire chest cavity. The frozen section came back on the mass as a spindle cell neoplasm will defer to permanent, though most likely thymoma. A chest tube was placed to the camera port in the posterior apical position. The lung was inflated under direct visualization inflated completely. The ribs were reapproximated with #2 Vicryl sutures in a [id number] fashion.The chest wall was closed in layers with 0 Vicryl for the deep muscle layers, 2-0 Vicryl for the deep layer and the dermal layer and a 3-0 Monocryl for running subcuticular. The latissimus and serratus anterior muscles were injected with a dilute Exparel solution as well as around the chest tube site. Steri-Strips and sterile dressings were placed in the wounds. The chest tube was secured to the chest wall with 0 silk suture and attached to Pleur-evac drainage. The patient was woken from anesthesia, extubated and brought to recovery in stable condition. I was present for the entire procedure and dictated this operative note. Jose Alvarez MD documented in this encounter Plan of Treatment Not on file documented as of this encounter Procedures Procedure Name Priority Date/Time Associated Diagnosis Comments XR CHEST PA AND LATERAL Routine 10/26/2019 11:46 AM EDT XR CHEST PA AND LATERAL Routine 10/25/2019 12:53 PM EDT POCT GLUCOSE Routine 10/25/2019 11:56 AM EDT HEMOGRAM Routine 10/25/2019 3:30 AM EDT DIFFERENTIAL, AUTOMATED Routine 10/25/2019 3:30 AM EDT HC VENIPUNCTURE Routine 10/25/2019 3:30 AM EDT BASIC METABOLIC PANEL Routine 10/25/2019 3:30 AM EDT BASIC METABOLIC PANEL Routine 10/24/2019 6:30 PM EDT THORACOSCOPY; WITH BIOPSY(IES) OF PLEURA Routine 10/24/2019 5:10 PM EDT Mediastinal mass THORACOTOMY; W/THERAPEUTIC WEDGE RESECTION, EA ADD'L RESC, IPSILATERAL Routine 10/24/2019 5:10 PM EDT Mediastinal mass THORACOTOMY; W/ THERAPEUTIC WEDGE RESECTION , INITIAL Routine 10/24/2019 5:10 PM EDT Mediastinal mass NERVE BLOCK, INTERCOSTAL NERVE, MULTIPLE Routine 10/24/2019 5:10 PM EDT Mediastinal mass SPECIMEN TO PATHOLOGY STAT 10/24/2019 4:37 PM EDT SPECIMEN TO PATHOLOGY STAT 10/24/2019 4:22 PM EDT SPECIMEN TO PATHOLOGY STAT 10/24/2019 4:04 PM EDT SPECIMEN TO PATHOLOGY STAT 10/24/2019 3:59 PM EDT SPECIMEN TO PATHOLOGY STAT 10/24/2019 3:43 PM EDT SURGICAL PATHOLOGY REPORT Routine 10/24/2019 3:42 PM EDT BLOOD GAS ARTERIAL POC Routine 07/17/202 0 3:38 PM EDT ANAEROBIC CULTURE STAT 10/24/2019 3:0 0 PM EDT ANAEROBIC CULTURE STAT 10/24/2019 3:0 0 PM EDT HC TISSUE CULTURE STAT 10/24/2019 3:0 0 PM EDT HC BODY FLUID CULTURE STAT 10/24/2019 3:00 PM EDT HC MYCOBACTERIA CULTURE Routine 10/24/2019 3:00 PM EDT TISSUE CULTURE STAT 10/24/2019 3:00 PM EDT BODY FLUID CULTURE, AEROBIC STAT 10/24/2019 3:00 PM EDT HC FUNGUS CULTURE, MISC SOURCE Routine 10/24/2019 3:00 PM EDT NON-CHANGE RELEASE MANAGER FINAL REPORT Routine 10/24/2019 2:58 PM EDT CYTOPATHOLOGY NON-GYNECOLOGICAL STAT 10/24/2019 2:58 PM EDT Thoracoscopy With Biopsy of Pleura 10/24/2019 1:51 PM EDT Mediastinal mass Thoracotomy With Therapeutic Wedge Resection Ea Addl 10/24/2019 1:51 PM EDT Mediastinal mass Injection Anes Agent &/ Steroid Intercostal Nerve Ea Addl Level ([id number]) 10/24/2019 1:51 PM EDT Mediastinal mass Thoracotomy With Therapeutic Wedge Resection Initial 10/24/2019 1:51 PM EDT Mediastinal mass Bronchoscopy, Diagnostic ([id number]) 10/24/2019 1:51 PM EDT Mediastinal mass Thymectomy, Radical Mediast Disssec ([id number]) 10/24/2019 1:51 PM EDT Mediastinal mass BRONCHOSCOPY,DIAGNOSTI C Routine 10/24/2019 6:12 AM EDT Mediastinal mass documented in this encounter Results * XR Chest PA & Lateral (Generic) (10/26/2019 11:46 AM EDT) Anatomical Region Laterality Modality Chest N/A Digital Radiogra phy Impressions 10/26/2019 11:57 AM EDT No residual pneumothorax. Persistent small bibasilar pulmonary opacities, likely some combination of atelectasis/trace amount of pleural fluid/post chest tube placement changes. Thank you for letting us participate in the care of this patient. For questions regarding this report, please contact the number below. ? Narrative 10/26/2019 11:57 AM EDT EXAMINATION: XR CHEST PA AND LATERAL (GENERIC) CLINICAL HISTORY: s/p Righ chest tube removal please eval for ptx or effusions TECHNIQUE: PA and lateral views of the chest COMPARISON: October 26, 2019 FINDINGS: Interval removal of the right-sided chest tube. No residual pneumothorax. Persistent chest wall emphysema. Ill-defined opacity at the right base, likely atelectasis/pulmonary hemorrhage related to chest tube placement. Left pulmonary base opacity with blunting of the lateral costophrenic angle, likely a small amount of pleural fluid/atelectasis. Procedure Note Darrell Kovacs MD - 10/26/2019 EXAMINATION: XR CHEST PA AND LATERAL (GENERIC) CLINICAL HISTORY: s/p Righ chest tube removal please eval for ptx or effusions TECHNIQUE: PA and lateral views of the chest COMPARISON: October 26, 2019 FINDINGS: Interval removal of the right-sided chest tube. No residualpneumothorax. Persistent chest wall emphysema. Ill-defined opacity at the right base,likely atelectasis/pulmonary hemorrhage related to chest tube placement. Leftpulmonary base opacity with blunting of the lateral costophrenic angle, likely asmall amount of pleural fluid/atelectasis. IMPRESSION No residual pneumothorax. Persistent small bibasilar pulmonary opacities,likely some combination of atelectasis/trace amount of pleural fluid/post chesttube placement changes. Thank you for letting us participate in the care of this patient. Forquestions regarding this report, please contact the number below. Jose Alvarez MD IMG DX ORDERABLES * XR Chest PA & Lateral (Generic) (10/25/2019 12:53 PM EDT) Anatomical Region Laterality Modality Chest N/A Digital Radiogra phy Impressions 10/25/2019 1:42 PM EDT Right-sided chest tube, minimal right apical pneumothorax without shift. Expected postsurgical change. Bibasilar atelectasis and small effusions. Thank you for letting us participate in the care of this patient. For questions regarding this report, please contact the number below. ? Narrative 10/25/2019 1:42 PM EDT EXAMINATION: XR CHEST PA AND LATERAL (GENERIC) CLINICAL HISTORY: s/p anterior mediastinal mass resection, wedge resection x3 64-year-old male TECHNIQUE: PA and lateral views of the chest COMPARISON: CT chest 09/25/2019, chest x-ray of 09/25/2019. FINDINGS: The airways are midline. Normal size cardiomediastinal silhouette. The pulmonary vascularity is normal. There is a right-sided apically directed chest tube with side-port within the right hemithorax. Subtle probable trace right apical pneumothorax. There is subcutaneous emphysema on the right, status post chest tube placement. Low volumes right chest with atelectasis. The contralateral side with blunting of the costophrenic angle, and linear opacities. Procedure Note Piyush Johnson MD - 10/25/2019 EXAMINATION: XR CHEST PA AND LATERAL (GENERIC) CLINICAL HISTORY: s/p anterior mediastinal mass resection, wedge resectionx3 64-year-old male TECHNIQUE: PA and lateral views of the chest COMPARISON: CT chest 09/25/2019, chest x-ray of 09/25/2019. FINDINGS: The airways are midline. Normal size cardiomediastinal silhouette. Thepulmonary vascularity is normal. There is a right-sided apically directed chest tubewith side-port within the right hemithorax. Subtle probable trace rightapical pneumothorax. There is subcutaneous emphysema on the right, status postchest tube placement. Low volumes right chest with atelectasis. Thecontralateral side with blunting of the costophrenic angle, and linear opacities. IMPRESSION Right-sided chest tube, minimal right apical pneumothorax without shift. Expected postsurgical change. Bibasilar atelectasis and small effusions. Thank you for letting us participate in the care of this patient. Forquestions regarding this report, please contact the number below. Jose Alvarez MD IMG DX ORDERABLES * POCT Glucose (10/25/2019 11:56 AM EDT) Glucose, POC 127 65 - 199 mg/dL [facility] Comment: Supplemental ranges: <140 mg/dL before meals <180 mg/dL all other times of the day Blood specimen (specimen) 10/25/2019 11:56 AM EDT 10/25/2019 11:56 AM EDT Jose Alvarez MD POINT OF CARE TEST O RDERABLES [facility] [place] [address] * (ABNORMAL) Differential, Automated (10/25/2019 3:30 AM EDT) Neutrophil % 81.8 % [facility] Neutrophil Absolute 10.92(H) 1.70 - 6.10 x10(3)/ L [facility] Lymph % 8.6 % [facility] Lymphocytes Abs 1.1 0.9 - 3.2 x10(3)/ L [facility] Monocyte % 8.6 % [facility] Monocyte Abs 1.1(H) 0.3 - 0.9 x10(3)/[facility] Eos % 0.1 % [facility] Eosinophils Abs 0.0 0.0 - 0.4 x10(3)/[facility] Basophil % 0.2 % [facility] Baso Absolute 0.0 0.0 - 0.1 x10(3)/[facility] Immature Gran % 0.70 % [facility] Comment: Immature granulocytes(IG's)percentage and absolute count will include metamyelocytes, myelocytes, and promyelocytes. Blood smears from CBCs yielding IG's will be scanned manually for concordance. If this scan disagrees with the automated IG or if promyelocytes are noted, a manual differential will be performed. Immature Gran Absolute 0.09(H) 0.00 - 0.04 x10(3)/ L [facility] Blood specimen (specimen) 10/25/2019 3:30 AM EDT 10/25/2019 3:41 AM EDT Narrative Resulting Agency Comment Spec In Lab Tree Blum MD HEMATOLOGY ORDERABLE S [facility] [place] [address] * (ABNORMAL) Hemogram (10/25/2019 3:30 AM EDT) White Blood Cell 13.3(H) 4.0 - 9.5 x10(3)/ L [facility] Red Blood Cell 6.33(H) 4.58 - 5.54 x10(6)/ L [facility] Hemoglobin 12.9(L) 13.7 - 16.5 gm/dL [facility] Hematocrit 42.1 40.5 - 48.5 % [facility] Mean Cell Volume 66.5(L) 82.9 - 93.1 [facility] Mean Cell Hemoglobin 20.4(L) 27.5 - 32.1 pg [facility] Mean Cell Hemoglobin Concentration 30.6(L) 32.0 - 35.7 gm/dL [facility] Platelet 325 145 - 357 x10(3)/[facility] RDW Standard Deviation 34.5(L) 36.0 - 45.0 [facility] RDW coefficient of variation 16.0(H) 11.4 - 13.8 % [facility] Mean Platelet Volume 10.0 7.6 - 12.9 [facility] NRBC% auto 0.0 % [facility] NRBC Absolute 0.000 0.000 - 0.000 x10(3)/[facility] Blood specimen (specimen) 10/25/2019 3:30 AM EDT 10/25/2019 3:41 AM EDT Narrative Resulting Agency Comment Spec In Lab Tree Blum MD HEMATOLOGY ORDERABLE S [facility] [place] [address] * (ABNORMAL) Basic Metabolic Panel (non-fasting) (10/25/2019 3:30 AM EDT) Glucose 132 65 - 199 mg/dL [facility] Comment:Diabetes: >=200 mg/d L plus symptoms Blood Urea Nitrogen 12 10 - 20 mg/dL [facility] Creatinine 0.71(L) 0.80 - 1.50 mg/dL [facility] Sodium 136 135 - 145 mmol/L [facility] Potassium 4.5 3.5 - 5.0 mmol/L [facility] Comment: Please note: ??Patients with WBC >100,000 may have falsely elevated Potassium levels. ??For accurate Potassium quantification in these patients send serum separator tube (gold top) for subsequent determinations. ??Contact the Clinical Chemistry Laboratory if there are any questions. Chloride 101 98 - 107 mmol/L [facility] Carbon Dioxide 24 22 - 31 mmol/L [facility] Anion Gap 11 5 - 15 mmol/L [facility] Calcium 8.9 8.5 - 10.5 mg/dL [facility] Est Glomerular Filtration Rate 98 >=60 mL/min/1. 73 m?? [facility] Comment: The eGFR was calculated using the CKD-EPI equation. As with all creatinine based estimates of kidney function, eGFR values calculated with the CKD-EPI equation are not accurate in patients with acute kidney failure, extremes of body mass or the acutely ill. [email or web address] eGFR 114 >=60 mL/min/1. 73 m?? [facility] Comment: The eGFR was calculated using the CKD-EPI equation. As with all creatinine based estimates of kidney function, eGFR values calculated with the CKD-EPI equation are not accurate in patients with acute kidney failure, extremes of body mass or the acutely ill. [email or web address] Blood specimen (specimen) 10/25/2019 3:30 AM EDT 10/25/2019 3:41 AM EDT Narrative Resulting Agency Comment Spec In Lab Jose Alvarez MD CHEMISTRY ORDERABLES [facility] [place] [address] * (ABNORMAL) Basic Metabolic Panel (non-fasting) (10/24/2019 6:30 PM EDT) Glucose 154 65 - 199 mg/dL [facility] Comment:Diabetes: >=200 mg/d L plus symptoms Blood Urea Nitrogen 12 10 - 20 mg/dL [facility] Creatinine 0.76(L) 0.80 - 1.50 mg/dL [facility] Sodium 136 135 - 145 mmol/L [facility] Potassium 3.7 3.5 - 5.0 mmol/L [facility] Comment: Please note: ??Patients with WBC >100,000 may have falsely elevated Potassium levels. ??For accurate Potassium quantification in these patients send serum separator tube (gold top) for subsequent determinations. ??Contact the Clinical Chemistry Laboratory if there are any questions. Chloride 102 98 - 107 mmol/L [facility] Carbon Dioxide 22 22 - 31 mmol/L [facility] Anion Gap 12 5 - 15 mmol/L [facility] Calcium 8.4(L) 8.5 - 10.5 mg/dL [facility] Est Glomerular Filtration Rate 96 >=60 mL/min/1. 73 m?? [facility] Comment: The eGFR was calculated using the CKD-EPI equation. As with all creatinine based estimates of kidney function, eGFR values calculated with the CKD-EPI equation are not accurate in patients with acute kidney failure, extremes of body mass or the acutely ill. [email or web address] eGFR 111 >=60 mL/min/1. 73 m?? [facility] Comment: The eGFR was calculated using the CKD-EPI equation. As with all creatinine based estimates of kidney function, eGFR values calculated with the CKD-EPI equation are not accurate in patients with acute kidney failure, extremes of body mass or the acutely ill. [email or web address] Blood specimen (specimen) 10/24/2019 6:30 PM EDT 10/24/2019 6:45 PM EDT Narrative Resulting Agency Comment Spec In Lab Jose Alvarez MD CHEMISTRY [place] [address] * Specimen to Pathology (10/24/2019 4:37 PM EDT) AP Specimen 10/24/2019 4:37 PM EDT 10/24/2019 4:37 PM EDT Narrative [facility] - 10/24/2019 4:37 PM EDT Specimen requisition ordered. ??Separate Pathology report to follow Jose Alvarez MD PATHOLOGY/[place] [address] * Specimen to Pathology (10/24/2019 4:22 PM EDT) AP Specimen 10/24/2019 4:22 PM EDT 10/24/2019 4:22 PM EDT Narrative [facility] - 10/24/2019 4:22 PM EDT Specimen requisition ordered. ??Separate Pathology report to follow Jose Alvarez MD PATHOLOGY/[place] [address] * Specimen to Pathology (10/24/2019 4:04 PM EDT) AP Specimen 10/24/2019 4:04 PM EDT 10/24/2019 4:04 PM EDT Narrative [facility] - 10/24/2019 4:04 PM EDT Specimen requisition ordered. ??Separate Pathology report to follow Jose Alvarez MD PATHOLOGY/[place] [address] * Specimen to Pathology (10/24/2019 3:59 PM EDT) AP Specimen 10/24/2019 3:59 PM EDT 10/24/2019 3:59 PM EDT Narrative [facility] - 10/24/2019 3:59 PM EDT Specimen requisition ordered. ??Separate Pathology report to follow Jose Alvarez MD PATHOLOGY/CYTOLOGY O BENJI Performing Organization Address [facility] de Phone Number [facility] [place] [address] * Specimen to Pathology (10/24/2019 3:43 PM EDT) AP Specimen 10/24/2019 3:43 PM EDT 10/24/2019 3:43 PM EDT Narrative [facility] - 10/24/2019 3:43 PM EDT Specimen requisition ordered. ??Separate Pathology report to follow Jose Alvarez MD PATHOLOGY/CYTOLOGY O CHRISTOPHERERAMICHAEL Performing Organization Address [facility] de Phone Number [facility] [place] [address] * Surgical Pathology Report (10/24/2019 3:42 PM EDT) Final Diagnosis [id number] ? Location: 3WST; 0302; A The signing pathologist has (i) examined the relevant preparation(s) for the specimen(s) and (ii) rendered or confirmed the diagnosis(es). . ? Addendum ADDENDUM DISCUSSION Special stains are performed. Block ?Stain ?Result ( Positive / Negative ) D1/E1 ?GMS ? Negative for organisms ? AFB ? Negative for organisms Note: Rare, incidental Hamazaki-Wesenberg bodies are identified within the lymph nodes. Electronically signed by: ??Janessa Lea MD Verified: ??11/11/2019 ?Pathologist Performed at: ??-[facility], [place], [place] ?Surgical Pathology DIAGNOSIS A - Anterior mediastinal mass, resection: Thymoma, type A. (see synoptic report below) B - Right lower lobe wedge, excision: Parenchymal ??lymph node, negative for malignancy. C - Right middle lobe wedge, excision: Parenchymal ??lymph node, negative for malignancy. D - Right upper lobe wedge, excision ??: Parenchymal ??lymph node with ??hyalinized nodular scars, negative for malignancy. E - Right upper lobe wedge #2, excision: Parenchymal ??lymph node with ??hyalinized nodular scars, negative for malignancy. Electronically signed by: ??Venu JORDAN, Janessa Schmitz Verified: ??11/04/2019 ?Pathologist Performed at: ??-[facility], [place], [place] SYNOPTIC Specimen ? Procedure: ??Thymectomy Tumor ? Histologic Type: ??Type A thymoma ? Tumor Size: ??8.5 cm ? Tumor Extension: ??Tumor confined to thymus ? Transcapsular Invasion: ??Absent ? Lymphovascular Invasion: ??Not identified Margins ? Margins: ??Uninvolved by tumor ?Distance of Tumor from Closest Margin (Millimeters): ??3 mm Lymph Nodes ? Regional Lymph Nodes: ??No lymph nodes submitted or found Pathologic Stage Classification (pTNM, AJCC 8th Edition) ? Primary Tumor (pT): ??pT1a ? Regional Lymph Nodes (pN): ??pNX ? Modified Masaoka Stage: ??Stage I . SYNOPTIC Additional Findings ? Additional Pathologic Findings: ??Age-appropriate involution changes Tumor Block(s): ??A5, A9 Comments ? The closest margin: 3 mm to adipose margin inked black. ? [facility] May 2018 Annual Release DISCUSSION Special stains on the lymph nodes are pending an will be reported in an addendum. ADDITIONAL STUDIES Immunohistochemistry Studies: Formalin-fixed, paraffin-embedded tissue sections are studied using the polymer technique with appropriate positive and negative controls. ?These IHC studies provide the pathologist with adjunctive diagnostic information. Antibody specificity has been verified by testing antibodies on a series of in-house tissues with known immunohistochemical performance characteristics. The clinical interpretation of any antibody positive staining or its absence is evaluated within the context of clinical presentation, morphology, histopathological criteria and other diagnostic tests. Block ? Antibody ?Result (Positive/Negative) A5 ??CKAE1/3 Positive, weak ??p63 Positive ??CD3 Positive in lymphocytes ??TdT Positive in a subset of lymphocytes ??STAT6 Negative ??TLE1 Positive (weaker than control) ??PAX-8 Positive ??CD99 Positive ??Synaptophysin Negative ??CD56 Negative ??CK7 Positive, scattered ??INI1 Positive (retained) SPECIMEN(S) SUBMITTED A - Anterior mediastinal mass, resection ?for frozen section(1) B - Right lower lobe wedge, excision (1) C - Right middle lobe wedge, excision (1) D - Right upper lobe wedge, excision ?? for frozen section ??(1) E - Right upper lobe wedge #2, excision (1) CLINICAL INFORMATION Anterior mediastinal mass SPECIMEN PROCESSING A - Labeled/Fixative: Anterior mediastinal mass, fresh. Quantity/Size: Single, 8.5 x 8.0 x 6.5 centimeters, 276 g. Tissue Description: Firm encapsulated mass. The capsule is smooth pink-bean in some areas and rough in others. The rough areas are inked black, the smooth areas are inked blue. The external surface appears bosselated. The cut surface is bruce yellow nodular and firm. Sections/Processing: The following tissue is submitted for frozen section: Crusher Wet Ground Mica section of the mass. Inked, serially sectioned and labor relations representative sections submitted in 9 cassettes as follows: . SPECIMEN PROCESSING ?A1: ??FS-1 ?A2-A9: ??Crusher Wet Ground Mica sections of lesion B - Labeled/Fixative: Right lower lobe wedge, fresh. Quantity/Size: ??Single, 2.5 x 2.0 x 0.7 cm. TissueDescription: Intact, wedge resection of lung. Pleural Surface: ??Bruce-bean with a bulging nodule. LESION ??Description: Bruce-bean firm nodule. ??Size: 0.7 x 0.6 x 0.5 cm. ??Color: Bruce-bean. ??Consistency: Firm. ??Location: Centrally located in the wedge resection. ??Closest parenchymal margin: ??0.4 to staple line. Parenchyma: Spongy bruce-brown. Sections/Processing: The following tissue is submitted for frozen section: Crusher Wet Ground Mica section of nodule. Crusher Wet Ground Mica sections in 4 cassettes as follows: ?B1: ??FS 1 ?B2: ??Stable line margins ?B3-B4: ??Crusher Wet Ground Mica sections C - Labeled/Fixative: Right middle lobe wedge, fresh for frozen section. Quantity/Size: ??Single, 0.9 x 0.7 x 0.7 cm Tissue Description: Red-brown, 0.5 x 0.5 x 0.4 bean-brown granular focus and eccentric 0.4 x 0.3 x 0.3 purple brown nodule Sections/Processing: Bisected The specimen is totally submitted for frozen section in 1 cassette labeled C1. D - Labeled/Fixative: Right upper lobe wedge, fresh for frozen section. Quantity/Size: ??Single, 0.9 x 0.8 x 0.8 cm Tissue Description: Firm rubbery brown parenchyma with black glistening nodule Sections/Processing: Bisected The specimen is totally submitted for frozen section in 1 cassette labeled D1. E - Labeled/Fixative: Right upper lobe wedge #2, fresh for frozen section. Quantity/Size: ??Single, 1.3 x 0.8 x 0.8 cm Tissue Description: Eccentric glistening black nodule Sections/Processing: Bisected The specimen is totally submitted for frozen section in 1 cassette labeled E1. ??SAS ?Frozen Section FROZEN SECTION DIAGNOSIS AFS1 - Anterior mediastinal mass, ?? 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 BFS1 - Right lower lobe wedge, nodule ?? for frozen section: - Benign parenchymal lymph node. CFS1 - Right middle lobe wedge, nodule ?? for frozen section: - Benign parenchymal lymph node. 10/24/19 16:32 /jrp DFS1 - Right upper lobe wedge, nodule ?? for frozen section: - Benign parenchymal lymph node. EFS1 - Right upper lobe wedge #2, nodule for frozen section: - Benign parenchymal lymph node with granulomas. . FROZEN SECTION DIAGNOSIS 10/24/19 17:04 /jrp Electronically signed by: ??MD Alicia, Jarrod Vora Verified: ??10/24/2019 ?Pathologist Performed at: ??-[facility], [place], [place] This intraoperative consultation should be interpreted as a preliminary diagnosis pending review of the entire specimen and special studies, if any. 11/11/2019 9:43 AM EDT [facility] Frozen Specimen 10/24/2019 3 :42 PM EDT 10/24/2019 3:42 PM EDT LUNG STRUCTURE / Unknown 10/24/2019 3:42 PM EDT 10/24/2019 3:42 PM EDT Frozen Specimen 10/24/2019 3 :42 PM EDT 10/24/2019 3:42 PM EDT Frozen Specimen 10/24/2019 3 :42 PM EDT 10/24/2019 3:42 PM EDT Frozen Specimen 10/24/2019 3 :42 PM EDT 10/24/2019 3:42 PM EDT Jose Alvarez MD PATHOLOGY/CYTOLOGY O RDERABLES [facility] [place] [address] * (ABNORMAL) BLOOD GAS 2 ARTERIAL (10/24/2019 3:38 PM EDT) pH, Arterial 7.35 7.35 - 7.45 [facility] PCO2, Arterial 45 35 - 45 mmHg [facility] PO2, Arterial 81(L) 85 - 104 mmHg [facility] Bicarbonate, Arterial 24.4 20.0 - 26.0 mmol/L [facility] Base Excess, Arterial -1.2 -3.0 - 3.0 mmol/L [facility] Hgb Blood Gas 13.0(L) 13.7 - 16.5 gm/dL [facility] Oxyhemoglobin, Arterial 93.9(L) 94.0 - 97.0 % [facility] Carboxyhemoglob in, Arterial 1.3 % [facility] Comment: Nonsmokers: 0.5-1.5% COHB Smokers: Variable, but usually less than 10% Toxic: 20-30% COHB Lethal: Greater than 60% COHB Methemoglobin, Arterial 0.3 <=1.5 % [facility] Na Whole Blood 135 135 - 145 mmol/L [facility] K Whole Blood 3.9 3.5 - 5.0 mmol/L [facility] Comment: Please note: Patients with WBC >100,000 may have falsely elevated Potassium levels. Contact the Clinical Chemistry Laboratory if there are any questions. ICa Whole Blood 1.19 1.15 - 1.33 mmol/L [facility] Comment: Note: ??Total bilirubin higher than 20 mg/dL may lead to falsely low ionized calcium. CL Whole Blood 103 98 - 107 mmol/L [facility] Gluc Whole Bld 144 65 - 199 mg/dL [facility] Comment:Diabetes: >=200 mg/d L plus symptoms. Lactate WB 1.0 0.5 - 2.2 mmol/L [facility] FIO2 Art 84 % [facility] PF Ratio Art 96 [facility] Temp Art 37.1 Celsius [facility] Blood specimen (specimen) Arterial Draw / Unknown 10/24/2019 3:38 PM EDT 10/24/2019 4:50 PM EDT Narrative Resulting Agency Comment Spec In Lab Mata Carrillo MD POINT OF CARE TEST O RDERABLES [facility] [place] [address] * Anaerobic Culture (10/24/2019 3:00 PM EDT) Anaerobic Culture No anaerobic organisms isolated [facility] Pleural fluid specimen (specimen) 10/24/2019 3:00 PM EDT 10/24/2019 3:43 PM EDT Comment:RIGHT PLEURAL FLUID Narrative Resulting Agency Comment Spec In Lab Jose Alvarez MD MICROBIOLOGY - GENER AL ORDERABLES Performing Organization Address [facility]/ZIP Co de Phone Number [facility] [place] [address] * Body Fluid Culture, Aerobic (10/24/2019 3:00 PM EDT) Body Fluid Culture No growth [facility] Gram Stain Cytocentrifuge Gram Stain performed Neutrophils seen No microorganisms seen. Results called to and read back by DR. ALVAREZ. [facility] Pleural fluid specimen (specimen) 10/24/2019 3:00 PM EDT 10/24/2019 3:43 PM EDT Comment:RIGHT PLEURAL FLUID Narrative Resulting Agency Comment Spec In Lab Jose Alvarez MD MICROBIOLOGY - GENER AL ORDERABLES Performing Organization Address [facility]/ZIP Co de Phone Number [facility] [place] [address] * Anaerobic Culture (10/24/2019 3:00 PM EDT) Anaerobic Culture No anaerobic organisms isolated [facility] Specimen from lung (specimen) 10/24/2019 3:00 PM EDT 10/24/2019 3:41 PM EDT Comment:PLEURAL GRUMOUS Narrative Resulting Agency Comment Spec In Lab Jose Alvarez MD MICROBIOLOGY - GENER AL ORDERABLES Performing Organization Address [facility]/ZIP Co de Phone Number [facility] [place] [address] * Tissue culture (10/24/2019 3:00 PM EDT) Tissue Culture No growth [facility] Gram Stain Moderate Neutrophils seen No microorganisms seen. Results called to and read back by DR. ALVAREZ. [facility] Specimen from lung (specimen) 10/24/2019 3:00 PM EDT 10/24/2019 3:41 PM EDT Comment:PLEURAL GRUMOUS Narrative Resulting Agency Comment Spec In Lab Jose Alvarez MD MICROBIOLOGY - GENER AL ORDERABLES Performing Organization Address [facility]/ZIP Co de Phone Number [facility] [place] [address] * Fungus culture Other (10/24/2019 3:00 PM EDT) Fungus Culture No Fungus isolated [facility] Specimen of unknown material (specimen) 10/24/2019 3:00 PM EDT 10/24/2019 3:44 PM EDT Comment:PLEURAL GRUMOUS Narrative Resulting Agency Comment Spec In Lab Jose Alvarez MD MICROBIOLOGY - GENER AL ORDERABLES Performing Organization Address [facility] Co de Phone Number [facility] [place] [address] * AFB culture Lung (10/24/2019 3:00 PM EDT) Acid Fast Bacilli Culture No Acid Fast Bacilli isolated If active tuberculosis is suspected, the patient should be on [employer]. Call Infection Prevention for assistance if needed. [facility] Acid Fast Stain No Acid Fast Bacilli seen [facility] Specimen from lung (specimen) 10/24/2019 3:00 PM EDT 10/24/2019 3:44 PM EDT Comment:PLEURAL GRUMOUS Narrative Resulting Agency Comment Spec In Lab Jose Alvarez MD MICROBIOLOGY - GENER AL ORDERABLES Performing Organization Address [facility]/ZIP Co de Phone Number [facility] [place] [address] * Non-Sas Programmer Remote Final Report (10/24/2019 2:58 PM EDT) Diagnosis Discussion [id number] ? Location: [facility]; 0302; A The signing pathologist has (i) examined the relevant preparation(s) for the specimen(s) and (ii) rendered or confirmed the diagnosis(es). . ? Non-Sas Programmer Remote Final DIAGNOSIS Negative for Malignancy Electronically signed by: ??Harsh JORDAN PhD, Juancarlos Schmitz Verified: ??10/27/2019 ?Pathologist Performed at: ??-[facility], [place], [place] DISCUSSION Pleural, right (thoracentesis): The specimen is composed predominantly of neutrophils and histiocytes with scattered mixed leukocytes and mesothelial cells. Cell block examined. See note. Note: --- Immunohistochemistry Studies --- Interpretation: ? Immunohistochemical assays were performed (on paraffin-embedded cell block sections fixed in 10% neutral buffered formalin for 6-72 hours) using the polymer technique with appropriate controls. These immunohistochemical studies provide ancillary information and are used only in conjunction with standard diagnostic procedures. Block ? Antibody ?Result (Positive/Negative) A1 ? MOC31 ?Negative A1 ? mCEA ? Negative A1 ? Calretinin ? Highlights mesothelial cells A1 ? CD68 ? Highlights histiocytes CLINICAL INFORMATION Specimen Source : Pleural, right (thoracentesis) Pertinent Clinical Data and Significant Therapy: Anterior mediastinal mass Clinical Impression : Anterior mediastinal mass Pertinent Radiologic Findings ??: (not provided) Gross Description: Received ??fresh, approximately 45 mL total volume of ?? cloudy, yellow fluid, with light flecks. Total Preparation: Liquid-Based Prep 1; Cell Block 1. 10/27/2019 3:11 PM EDT [facility] RIGHT PLEURAL FLUID / Unknown 10/24/2019 2:58 PM EDT 10/24/2019 2:58 PM EDT Jose Alvarez MD PATHOLOGY/CYTOLOGY O BENJI Performing Organization Address [facility] Co de Phone Number [facility] [place] [address] * Cytopathology Non-Gynecological (10/24/2019 2:58 PM EDT) AP Specimen 10/24/2019 2:58 PM EDT 10/24/2019 2:58 PM EDT Narrative [facility] - 10/24/2019 2:58 PM EDT Specimen requisition ordered. ??Separate Pathology report to follow Jose Alvarez MD PATHOLOGY/CYTOLOGY O BENJI Performing Organization Address [facility] Co de Phone Number [facility] [place] [address] documented in this encounter Visit Diagnoses Diagnosis Mediastinal mass Swelling, mass, or lump in chest Mediastinal mass Swelling, mass, or lump in chest documented in this encounter Admitting Diagnoses Diagnosis Mediastinal mass Swelling, mass, or lump in chest documented in this encounter Administered Medications Inactive Administered Medications - up to 3 most recent administrations Medication Order MAR Action Action Date Dose Rate Site acetaminophen (Tylenol) tablet 1,000 mg 1,000 mg, Oral, EVERY 6 HOURS SCHEDULED, First dose on Sun10/24/19 at 1900, Until Discontinued, Do not exceed 4,000 mg in 24 hours, Recovery (Recovery-Hospital Unit), Routine Given 10/26/2019 11:57 AM EDT 1,000 mg Given 10/26/2019 6:22 AM EDT 1,000 mg Given 10/26/2019 1:28 AM EDT 1,000 mg docusate sodium (Colace) capsule 100 mg 100 mg, Oral, 3 TIMES DAILY, First dose on Sun10/24/19 at 2130, Until Discontinued, Routine Given 10/25/2019 9:59 PM EDT 100 mg Given 10/24/2019 9:47 PM EDT 100 mg heparin (Porcine) subcutaneous injection 5,000 Units 5,000 Units, Subcutaneous, ONCE, 1 dose, On Sun10/24/19 at 1230, Not within 60 minutes of placing epidural catheter., Day of Surgery (Day of Procedure), Routine Given 10/24/2019 12:13 PM EDT 5,000 Units Left Lower Quadrant heparin (Porcine) subcutaneous injection 5,000 Units 5,000 Units, Subcutaneous, EVERY 8 HOURS SCHEDULED, First dose on Sun10/24/19 at 2200, Until Discontinued, Routine Given 10/26/2019 6:22 AM EDT 5,000 Units Given 10/25/2019 9:59 PM EDT 5,000 Units Given 10/25/2019 1:43 PM EDT 5,000 Units ketorolac (TORADOL) injection 30 mg 30 mg, Intravenous, EVERY 6 HOURS SCHEDULED, 6 doses, First dose on Sun10/24/19 at 1845, Last dose on Sun10/26/19 at 0000, Recovery (Recovery-Hospital Unit), Routine Given 10/26/2019 1:27 AM EDT 30 mg Given 10/25/2019 5:17 PM EDT 30 mg Given 10/25/2019 11:09 AM EDT 30 mg lactated ringers infusion 100 mL/hr, Intravenous, ONCE, 1 dose, On Sun10/24/19 at 1915, Recovery (Recovery-Hospital Unit) Restarted 10/24/2019 7:10 PM EDT 100 mL/hr 100 mL/hr lactated ringers infusion 1,000 mL, at 100 mL/hr, Intravenous, CONTINUOUS, Starting on Sun10/24/19 at 1845, Until Sun10/24/19 at 1958, PACU Recovery New Bag 10/24/2019 7:21 PM EDT 1,000 mLs 100 mL/hr magnesium hydroxide (Milk of Magnesia) (240 mg/mL) oral liquid 5 mL 5 mL, Oral, DAILY PRN, Starting on 10/25/19 at 2217, Until 10/26/19 at 1605, Constipation, 10 mL concentrate = 30 mL regular, Routine Given 10/26/2019 6:22 AM EDT 5 mLs oxyCODONE (Roxicodone) tablet 5 mg 5 mg, Oral, EVERY 4 HOURS PRN, Starting on Sun10/24/19 at 1824, Until Sun10/26/19 at 1605, Pain, May repeat 5 mg in 60 minutes if pain not relieved., Recovery (Recovery-Hospital Unit), Routine Given 10/25/2019 4:42 AM EDT 5 mg Given 10/24/2019 9:47 PM EDT 5 mg sodium chloride 0.9 % (flush) flush 5 mL 5 mL, Intravenous, 2 TIMES DAILY, First dose on Sun10/24/19 at 2130, Until Discontinued, Recovery (Recovery-Hospital Unit), Routine Given 10/26/2019 9:00 AM EDT 5 mLs Given 10/25/2019 9:59 PM EDT 5 mLs Given 10/25/2019 11:12 AM EDT 5 mLs documented in this encounter Active and Recently Administered Medications Times are shown in EDT. Scheduled Medication Order 10/24/2019 10/25/2019 10/26/2019 acetaminophen (Tylenol) tablet 1,000 mg 1,000 mg, Oral, EVERY 6 HOURS SCHEDULED, First dose on Sun10/24/19 at 1900, Until Discontinued, Do not exceed 4,000 mg in 24 hours, Recovery (Recovery-Hospital Unit), Routine 1901 (Given - Provider: Sera Silva RN) 0016 (Given - Provider: Paula Marion, EVER)0605 (Given - Provider: Paula Marion, EVER)1109 (Given - Provider: Master Campbell, EVER)1717 (Given - Provider: Master Campbell RN) 0128 (Given - Provider: Norma Gr RN)0622 (Given - Provider: Lillian Sinha, EVER)1157 (Given - Provider: Ana Luisa Ramirez RN) ceFAZolin (Ancef) 2g in dextrose 5% 100 mL (COMPLETED) 2 g, Intravenous, EVERY 3 HOURS, 1 dose, First dose on Sun10/24/19 at 1230, Administer over 30 Minutes, Intra-Operative (Intra-Procedure), Indication for (Active or Suspected): Prophylaxis 1434 (Given - Provider: Fadi Cruz) docusate sodium (Colace) capsule 100 mg 100 mg, Oral, 3 TIMES DAILY, First dose on Sun10/24/19 at 2130, Until Discontinued, Routine 214 (Given - Provider: Paula Marion RN) 0900 (Not Given - Provider: Master Campbell RN - Reason: Patient/family refused)1500 (Not Given - Provider: Master Campbell RN - Reason: Patient/family refused)215 (Given - Provider: Lillian Sinha, RN) 0900 (Not Given - Provider: Ana Luisa Ramirez RN - Reason: Patient/family refused) heparin (Porcine) subcutaneous injection 5,000 Units (COMPLETED) 5,000 Units, Subcutaneous, ONCE, 1 dose, On Sun10/24/19 at 1230, Not within 60 minutes of placing epidural catheter., Day of Surgery (Day of Procedure), Routine 1213 (Given - Provider: Cammie Machado RN) heparin (Porcine) subcutaneous injection 5,000 Units 5,000 Units, Subcutaneous, EVERY 8 HOURS SCHEDULED, First dose on Sun10/24/19 at 2200, Until Discontinued, Routine 2146 (Given - Provider: Paula Marion RN) 0605 (Given - Provider: Paula Marion RN)1343 (Given - Provider: Master Campbell RN)2159 (Given - Provider: Lillian Sinha, EVER) 0622 (Given - Provider: Lillian Sinha, EVER)1400 (Due) ketorolac (TORADOL) injection 30 mg (COMPLETED) 30 mg, Intravenous, EVERY 6 HOURS SCHEDULED, 6 doses, First dose on Sun10/24/19 at 1845, Last dose on Sun10/26/19 at 0000, Recovery (Recovery-Hospital Unit), Routine 1859 (Given - Provider: Sera Silva RN) 0016 (Given - Provider: Paula Marion RN)0605 (Given - Provider: Paula Marion, RN)1109 (Given - Provider: Master Campbell, RN)1717 (Given - Provider: Master Campbell RN) 0127 (Given - Provider: Norma Gr RN) lactated ringers infusion (CANCELED) 100 mL/hr, Intravenous, ONCE, 1 dose, On Sun10/24/19 at 1915, Recovery (Recovery-Hospital Unit) 191 (Restarted - Provider: Sera L Vincent, RN)1913 (Not Given - Provider: Sera Silva RN - Reason: See comment - Comment: used service IV order) 0438 (Stopped - Provider: Paula Marion, RN) senna (Senokot) tablet 17.2 mg 17.2 mg, Oral, EVERY EVENING, First dose on Sun10/25/19 at 1700, Until Discontinued, Routine 1700 (Not Given - Provider: Master Campbell, RN - Reason: Patient/family refused) sodium chloride 0.9 % (flush) flush 5 mL 5 mL, Intravenous, 2 TIMES DAILY, First dose on Sun10/24/19 at 2130, Until Discontinued, Recovery (Recovery-Hospital Unit), Routine 2130 (Not Given - Provider: Paula Marion, RN - Reason: See comment) 1112 (Given - Provider: Master Campbell, EVER)2159 (Given - Provider: Lillian Sinha, EVER) 0900 (Given - Provider: Ana Luisa Ramirez, RN) Continuous Medication Order 10/24/2019 10/25/2019 10/26/2019 lactated ringers infusion (CANCELED) 1,000 mL, at 100 mL/hr, Intravenous, CONTINUOUS, Starting on Sun10/24/19 at 1845, Until Sun10/24/19 at 1958, PACU Recovery 1921 (New Bag - Provider: Sera Silva, RN) PRN Medication Order 10/24/2019 10/25/2019 10/26/2019 BUpivacaine (PF) (MARCAINE) 0.5 % (5 mg/mL) injection (CANCELED) ONCE PRN, Starting on Sun10/24/19 at 1646, Until 10/26/19 at 1605, Intra-Operative (Intra-Procedure), Routine 1646 (Given - Provider: Jose Alvarez MD) BUpivacaine liposome (PF) (EXPAREL) 1.3 % (13.3 mg/mL) injection for infiltration (CANCELED) ONCE PRN, Starting on Sun10/24/19 at 1702, Until 10/26/19 at 1605, Intra-Operative (Intra-Procedure) 1702 (Given - Provider: Jose Alvarez MD)1726 (Given - Provider: Jose Alvarez MD - Comment: last 4cc of exparel diluted with 12 cc of injectable saline to make a 1 to 3 dilution) lidocaine (XYLOCAINE) 10 mg/mL (1 %) injection 3 mg 3 mg (0.3 mL), Subcutaneous, ONCE PRN, 1 dose, Starting on Sun10/24/19 at 2044, Until 10/26/19 at 1605, for discomfort with PIV insertion, Recovery (Recovery-Hospital Unit), Routine magnesium hydroxide (Milk of Magnesia) (240 mg/mL) oral liquid 5 mL 5 mL, Oral, DAILY PRN, Starting on 10/25/19 at 2217, Until 10/26/19 at 1605, Constipation, 10 mL concentrate = 30 mL regular, Routine 0622 (Given - Provider: Lillian Sinha RN) oxyCODONE (Roxicodone) tablet 5 mg 5 mg, Oral, EVERY 4 HOURS PRN, Starting on Sun10/24/19 at 1824, Until 10/26/19 at 1605, Pain, May repeat 5 mg in 60 minutes if pain not relieved., Recovery (Recovery-Hospital Unit), Routine 2147 (Given - Provider: Paula Marion, EVER) 0442 (Given - Provider: Paula Marion, RN) sodium chloride 0.9 % (flush) flush 5-20 mL 5-20 mL, Intravenous, EVERY 1 MIN PRN, Starting on Sun10/24/19 at 2044, Until 10/26/19 at 1605, flush, Flush pertains to all indwelling lines. Flush per protocol found in the job aid using the link provided on this medication record., Recovery (Recovery-Hospital Unit), Routine documented in this encounter Additional Health Concerns Infection Onset Date Last Indicated Resolved Time Rule Out Tuberculosis 10/24/2019 10/24/20192019 2:01 PM EDT documented as of this encounter Care Teams Double Surface Operator Relationship Specialty Start Date End Date Christiana Moore APRN [address] [place] [address] PCP - General Family Medicine 09/26/19 documented as of this encounter
--- OUTSIDE RECORDS SUMMARY | 2023-11-12 02:17 | XMS_ITS | Encounter Summary ---
Author Organization [facility] [place] [address] Care Team Providers Care Margin Trimmer Name Role Phone Christiana Moore APRN Primary Care Provider [phone] Encounter Details Date Type Department Care Team (Late st Contact Info) Description 10/06/2019 Orders Only [place] [address] Quentin Carlin MD [facility] [place] [address] Social History Tobacco Use Types Packs/Day Years [...] on filedocumented in this encounter Care Teams Margin Trimmer Relationship Specialty Start Date End Date Christiana Moore APRN [address] [place] [address] PCP - General Family Medicine 09/26/19 documented as of this encounter
--- OUTSIDE RECORDS SUMMARY | 2023-11-12 02:17 | XMS_ITS | Encounter Summary ---
[place] [address] Care Team Providers Care Certified Orthotist Name Role Phone Christiana Moore RYAN Primary Care Provider [phone] Reason for Visit * Auth/Cert Specialty Diagnoses [...] Expiration Date Visits Re quested Visits Authorized [id number] 1 Encounter Details Date Type Department Care Team (Late st Contact Info) Description 10/21/2019 9:15 [place] [address] COVID-19 ruled out Social History Tobacco Use Types Packs/Day Years [...] Procedure Name Priority Date/Time Associated Diagnosis Comments COVID-19 PCR STAT 10/21/2019 10:27 AM EDT COVID-19 ruled out documented in this encounter Results * COVID-19 PCR (10/21/2019 10:27 AM EDT) SARS-CoV-[address] Not Detect[address] [facility] Comment: This result should be interpreted in combination with the clinical observations, patient history and epidemiological information. For testing of asymptomatic individuals, assay performance characteristics and clinical utility have not been evaluated. Testing for SARS-CoV-2 (Severe acute respiratory syndrome coronavirus 2, formerly known as 2019 novel coronavirus or 2019-nCoV) to aid in the diagnosis of COVID-19 is performed using the [employer] SARS-CoV-2 as authorized by the FDA Emergency Use Authorization (EUA). This EUA assay is intended for In-vitro Diagnostic (IVD) use with respiratory specimens such as nasopharyngeal swabs collected from individuals during the acute phase of infection. This assay is performed based on the instructions for use provided by the [employer] and additional guidance provided by CDC and FDA. Testing is performed in the [facility] within the Department of Pathology and Laboratory Medicine at [facility], certified under the Clinical Laboratory Improvement [...] the patient is presumed to be infected. As required or requested by public health authorities, positive specimens may be sent for additional testing. Positive and negative predictive values for this test are highly dependent on disease prevalence. A result of Invalid indicates that neither the viral RNA targets nor the internal control target was detected. An invalid result suggests the presence of inhibitors. Recollection is recommended in the case of an invalid result. CDC COVID-19 criteria for testing on human specimens and clinical management guidance information are available at the CDC Coronavirus Disease 2019 (COVID-19) webpage under Information for Healthcare Professionals (https://www.cdc.gov/coronavirus/2019-ncov/hcp/index.html) Additional information about this and other EUA tests can be found in provider and patient fact sheets at the following FDA website: https://www.fda.gov/medical-devices/kyidfswji-kmxiiflnhq-zgzgeon-devices/emergen -us e-authorizations#omawi49hqz SARS-CoV-2 RNA Source ATTENDANT CHILD ACTIVITY Swab [facility] Nasopharyngeal swab (specimen) 10/21/2019 10:27 AM EDT 10/21/2019 10:27 AM EDT Comment:Symptoms->Asymptomat ic Narrative Resulting Agency Comment Spec In Lab Quentin Carlin MD MOLECULAR ORDERABLES Performing Organization Address City/State/[facility] Co de Phone Number [facility] [place] [address] documented in this encounter Visit Diagnoses Diagnosis COVID-19 ruled out documented in this encounter Care Teams Certified Orthotist Relationship Specialty Start Date End Date Christiana Moore APRN [address] [place] [address] PCP - General Family Medicine 09/26/19 documented as of this encounter
--- OUTSIDE RECORDS SUMMARY | 2023-11-12 02:17 | XMS_ITS | Encounter Summary ---
Author Organization [facility] [place] [address] Care Team Providers Care Bleach Chlorinator Name Role Phone Christiana Moore APRN Primary Care Provider [phone] Encounter Details Date Type Department Care Team (Latest Contact Info) Description 10/07/2019 1:24 PM EDT - 10/07/2019 11:59 PM EDT Hospital En[place] [address] Mediastinal mass Discharge Disposition: Home Social History [...] 10/26/2019 03/20/2023 documented as of this encounter Procedure Notes * Gary Hines MD - 10/07/2019 11:59 PM EDTAssociated Order(s): PULMONARY FUNCTION TEST FVC , FEV1, FEV1/FVC within normal limits. Diffusing capacity within normal limits. Resting oxygen saturation on room air was normal. IMPRESSION: Within normal limits. documented in this encounter Plan of Treatment Not on file documented as of this encounter Procedures Procedure Name Priority Date/Time Associated Diagnosis Comments COMMON PULMONARY FUNCTION TEST Routine 10/07/2019 11:59 PM EDT Mediastinal mass documented in this encounter Results * Pulmonary Function Testing (10/07/2019 11:59 PM EDT) Narrative Gary Hines MD - 10/07/2019 11:59 PM EDT Gary Hines MD ? 10/12/2019 ??1:37 PM FVC , FEV1, FEV1/FVC within normal limits. Diffusing capacity within normal limits. Resting oxygen saturation on room air was normal. IMPRESSION: Within normal limits. Quentin Carlin MD PFT ORDERABLES documented in this encounter Visit Diagnoses Diagnosis Mediastinal mass Swelling, mass, or lump in chest documented in this encounter Care Teams Bleach Chlorinator Relationship Specialty Start Date End Date Christiana Moore APRN [address] [place] [address] PCP - General Family Medicine 09/26/19 documented as of this encounter
--- OUTSIDE RECORDS SUMMARY | 2023-11-12 02:17 | XMS_ITS | Encounter Summary ---
[place] [address] Care Team Providers Care Pharmacy Sales Assistant Name Role Phone Christiana Moore APRN Primary Care Provider [phone] Reason for Visit * Reason Onset Date Comments Results 10/22/2019 Negative Covid Encounter Details Date Type Department Care Team (Late st Contact Info) Description 10/22/2019 [place] [id number] Jacquelyn Hicks RN Results (Negative Covid) Social History Tobacco Use Types Packs/Day Years [...] encounter Miscellaneous Notes * Telephone Encounter - Jacquelyn Hicks RN - 10/22/2019 8:28 AM EDT Telephone call to pt to inform pt of NEGATIVE Covid-19 test results. Pt verbalizes understanding and will contact healthcare provider if any concerns or requires further care. documented in this encounter Plan of Treatment Not on file documented as of this encounter Visit Diagnoses Not on filedocumented in this encounter Care Teams Pharmacy Sales Assistant Relationship Specialty Start Date End Date Christiana Moore APRN [address] [place] [address] PCP - General Family Medicine 09/26/19 documented as of this encounter
--- OUTSIDE RECORDS SUMMARY | 2023-11-12 02:17 | XMS_ITS | Encounter Summary ---
Author Organization [facility] [place] [address] Care Team Providers Care Embossing Press Operator Apprentice Name Role Phone OscarChristiana RYAN Primary Care Provider Reason for Visit * Reason Onset Date Comments Other 11/03/2019 Encounter Details Date Type Department Care Team (Late st Contact Info) Description 11/03/2019 Telephone [place] [id number] Monica Price, RN Other Social History Tobacco [...] Telephone Encounter - Monica Price RN - 11/03/2019 8:30 AM EDTSummary: incision questions Images from the original note were not included. TC from Mr. Lantigua HX: s/p Right thoracotomy for mass resection on 10/24/19, discharged 10/26 Mr. Lantigua is calling this morning stating that his incision is now very tender to the touch. I could hardly even sleep last night. Only taking extra strength tylenol 1000 mg and ibuprofen 400 mg every 6 hours. Explained that he can increase his ibuprofen to 600 mg (3 tabs) every 6 hours combined with tylenolor 800 mg (4 tabs) every 8 hours combined with tylenol. He verbalized understanding. Per Dr. Carlin, Mr. Lantigua needs to not put pressure on this site. Instructed to apply triple antibiotic ointment to site, he may try ice or heat for additional discomfort. He was instructed to sleep on his left side, and while sitting, needs to stay upright and not applypressure to the site. He again verbalized understanding. He was grateful for the information. He knows to call with any questions or concerns documented in this encounter Plan of Treatment Not on file documented as of this encounter Visit Diagnoses Not on filedocumented in this encounter Care Teams Embossing Press Operator Apprentice Relationship Specialty Start Date End Date Christiana Moore APRN [address] [place] [address] PCP - General Family Medicine 09/26/19 documented as of this encounter
--- OUTSIDE RECORDS SUMMARY | 2023-11-12 02:17 | XMS_ITS | Encounter Summary ---
Author Organization [facility] [place] [address] Care Team Providers Care University Archivist Name Role Phone Christiana Moore RYAN Primary Care Provider [phone] Reason for Visit * Auth/Cert Specialty Diagnoses [...] Expiration Date Visits Re quested Visits Authorized [id number] 1 1 Encounter Details Date Type Department Care Team (Late st Contact Info) Description 10/24/2019 1:52 PM EDT Anesthesia Event [place] [phone] Mata Carrillo MD [facility] [place] [address] Anesthesia Record Procedure Summary Procedure Name Responsible Anesthesiologist Anesthesia Start Time Anesthesia Stop Time @THYMECTOMY W/ RAD. MEDIASTINAL DISSECTION (WRVU 23.48) (Right: Chest) Mata Carrillo MD 10/24/19 1352 10/24/19 1832 Events Date Time Event Comment 10/24/2019 1304 1351 AN Verify 1352 Start 1352 An Start Data 1403 An Induction 1410 An Intubation 1411 FO Bronchoscopy 1414 Anesthesia Ready 1430 An one lung vent 1444 Procedure Start 1538 ABG Data Arterial Blood Gas result: pH 7.352 pCO2 45 pO2 80.5 %O2 Sat 94 FiO2 80 HCO3 24.4 BE -1.2 Hb 13 K 3.89 Glucose 144 Lactate 1.01 1659 An Dual Lung Vent 1802 Extubation/LMA Out 1802 an stop data 1818 Recovery or ICU Handoff Romi ent care was transferred to the destination unit staff after review of the patient's medical history, current anesthetic/surgical status and plan, according to the Provider Handoff Checklist. 183 Stop Meds Name Total Midazolam 2 mg fentaNYL 125 mcg IV Lidocaine 100 mg Propofol 350 mg Rocuronium 150 mg PHENYLephrine 400 mcg Dexamethasone 8 mg ceFAZolin (Ancef) 2g in dextrose 5% 100 mL 2 g PHENYLephrine INF 12,140 mcg Esmolol 30 mg HYDROmorphone 0.2 mg Dexmedetomidine 24 mcg Lactated Ringers 2,000 mL * Agents Name O2 Air N2O Sevoflurane (et) Isoflurane (et) * Blood No blood administrations on file. Lines, Drains, and Airways Type Details Placement Removal (RETIRED) Peripheral IV Line - Single Lumen 10/24/19; 1241; metacarpal vein (top of hand), right; [id number] catheter system; 20 gauge; Cammie Machado RN; distraction, intradermal injection, tolerated well, appears comfortable; 11/10/19; 0031 10/24/19 1241 by Cammie Machado RN 11/10/19 0031 by Fatou Ignacio, RN ETT Mask Ventilation: Adjunct (2); ETT Type: Cuffed, Oral; Double Lumen: 39 Fr; Notes: Asleep, Pre-O2, Cricoid Pressure, Stylette; Attempts: 2; Laryngoscopy Grade: 2; ETT Placement Verified By: Auscultation, Capnometry, Visual; Inserted by: Nancy KEBEDE; Removal Date: 10/24/19; Removal Time: 180110/24/19 1410 by Fadi Cruz, WEB DEVELOPMENT INTERN 10/24/19 1802 by Ricardo Bello CRNA Urethral Catheter 10/24/19; 1415; Surg praful longer than 2 hours, Physician order; indwelling catheter with core temperature probe; latex; 14; inserted at this facility; 1; 5; 10; none; drainage bag to dependent drainage; 10/25/19; 0437 10/24/19 1415 by Hamida Nath RN 10/25/19 0437 by Paula Marion (RETIRED) Peripheral IV Line - Single Lumen 10/24/19; 1422; metacarpal vein (top of hand), right; [id number] catheter system; 18 gauge, 1 in length; Ace WEB DEVELOPMENT INTERN; site symptomatic; 10/26/19; 0140 10/24/19 1422 by Fadi Cruz WEB DEVELOPMENT INTERN 10/26/19 0140 by Norma Gr RN Arterial Line 10/24/19; 1422; radi al artery, left; 20 gauge; Nancy SRNA; Sterile Prep, Sterile Gloves; 10/24/19; 2215 10/24/19 1422 by Fadi Cruz, WEB DEVELOPMENT INTERN 10/24/19 2215 by Paula Marion Incision 10/24/19; 1445; ches t; transverse; primapore 113/4 inch by 4, steri striips; 11/10/19; 0031 10/24/19 1445 by Hamida Nath RN 11/10/19 0031 by Fatou Ignacio RN Chest Tube 10/24/19; 1646; Righ t; lateral; (Chest); (28 Fr. straight chest tube); 10/26/19; 0942 10/24/19 1646 by Hamida Nath RN 10/26/19 0942 by Ana Luisa Ramirez RN documented in this encounter Social History [...] OR Notes * Anesthesia Postprocedure Evaluation - Mata Carrillo MD - 10/24/2019 9:40 PM EDT Department of Anesthesiology Post-procedure Note Patient: Tree Lantigua Procedure Summary Date: 10/24/19 Room / Location: [facility] OR [address] [place] [address] MAIN OR Anesthesia Start: 1352 Anesthesia Stop: Procedures: @THYMECTOMY W/ RAD. MEDIASTINAL DISSECTION (WRVU 23.48) (Right Chest) BRONCHOSCOPY, DIAGNOSTIC (WRVU 2.78) (N/A ) @THORACOTOMY; W/ THERAPEUTIC WEDGE RESECTION , INITIAL (WRVU 15.75) (Right Chest) NERVE BLOCK, INTERCOSTAL NERVE, MULTIPLE (WRVU 1.68) (Right Chest Wall) @THORACOTOMY; W/THERAPEUTIC WEDGE RESECTION, EA ADD'L RESC, IPSILATERAL (WRVU 3) (Right Chest) THORACOSCOPY; WITH BIOPSY(IES) OF PLEURA (WRVU 4.58) (Right Chest) Diagnosis: Mediastinal mass (Anterior mediastinal mass) Surgeon: Quentin Carlin MD Responsible Provider: Mata Carrillo MD Anesthesia Type: general ASA Status: 2 All Anesthesia Providers: Anesthesiologist: Mata Carrillo MD WEB DEVELOPMENT INTERN: Ricardo Bello CRNA Student Nurse Vineyard Worker: Fadi Cruz RN Vitals Value Taken Time BP 127/82 10/24/2019 8:00 PM Temp 36.3 ??C (97.3 ??F) 10/24/2019 8:00 PM Pulse 105 10/24/2019 8:13 PM Resp 22 10/24/2019 8:13 PM SpO2 98 % 10/24/2019 8:31 PM Pain Level 0 10/24/2019 7:30 PM Vitals shown include unvalidated device data. Patient Location: PACU/[facility] Level of Consciousness: Disoriented or Confused Pain Management: Satisfactory Analgesia PONV: None Cardiovascular Status: At Baseline Respiratory Status: At Baseline Postoperative Fluid Status: Intravascular EUvolemia Possible Anesthetic Complications: NONE apparent at time of evaluation Final Primary Anesthesia Type: General (The anesthetic type performed was the same as planned.) Comments: Emergence delirium--treated with precedex, appeared to improve over a short period of time in pacu * Anesthesia Preprocedure Evaluation - Mata Carrillo MD - 10/24/2019 1:02 PM EDT Pre-Anesthesia Evaluation for: Tree Lantigua a 64 y.o. male. Procedure(s): @THYMECTOMY W/ RAD. MEDIASTINAL DISSECTION (WRVU 23.48) BRONCHOSCOPY, DIAGNOSTIC (WRVU 2.78) @THORACOSCOPY, SURG; W/DX WEDGE RESC W/ANATOMIC LUNG RESC (WRVU 3) @ROBOT XI THORACOSCOPY-CREATE PERICARDIAL WINDOW OR RESECTION (WRVU 11.94) @RESECTION, DIAPHRAGM WITH SIMPLE REPAIR (WRVU 13.06) @RESECTION STERNUM, RADICAL (WRVU 19.18) Patient Active Problem List Diagnosis ??? Mediastinal mass No past medical history on file. No past surgical history on file. Social History Tobacco Use ??? Smoking status: Never Smoker ??? Smokeless tobacco: Never Used Substance Use Topics ??? Alcohol use: Yes Alcohol/week: 2.0 standard drinks Types: 1 Glasses of wine, 1 Cans of beer per week Social History Substance and Sexual Activity Drug Use Never Allergies Allergen Reactions ??? Wasp Venom Medications: MAR and/or home medications have been reviewed. Physical Exam: Most Recent Vitals: 10/24/19 1135 BP: 141/76 Pulse: 89 Resp: 16 Temp: 37 ??C (98.6 ??F) SpO2: 99% Body mass index is 23.6 kg/m??. Height: 182.9 cm (6') Weight: 78.9 kg (174 lb) Airway Assessment: Mallampati: I TM distance: >3 FB Neck ROM: full Cardiovascular Assessment: cardiovascular exam normal Pulmonary Assessment: pulmonary exam normal Dental Assessment: - normal exam Misc Assessment: IV access: Peripheral line Anesthesia Plan: ASA 2 general, with a(n) intravenous induction Mr Lantigua is a 64 year-old man otherwise healthy who presents for resection of an anterior mediastinal mass. NPO OK NKDA Exercise tolerance excellent Plan GA, JOSELUIS, George, Additional PIV Region - Intrathoracic Non-Cardiac Informed Consent: Anesthetic plan and risks discussed with patient. Use of blood products discussed with patient who. Plan discussed with WEB DEVELOPMENT INTERN. PAT Clinic Note documented in this encounter Plan of Treatment Not on file documented as of this encounter Visit Diagnoses Not on filedocumented in this encounter Administered Medications Inactive Administered Medications - up to 3 most recent administrations Medication Order MAR Action Action Date Dose Rate Site ceFAZolin (Ancef) 2g in dextrose 5% 100 mL 2 g, Intravenous, EVERY 3 HOURS, 1 dose, First dose on Sun10/24/19 at 1230, Administer over 30 Minutes, Intra-Operative (Intra-Procedure), Indication for (Active or Suspected): Prophylaxis Given 10/24/2019 2:34 PM EDT 2 g dexamethasone (Decadron) injection PRN, Starting on Sun10/24/19 at 1423, Until Sun10/24/19 at 214, Anesthesia Intra-op, Routine Given 10/24/2019 2:23 PM EDT 8 mg dexmedetomidine (PRECEDEX) injection PRN, Starting on Sun10/24/19 at 1812, Until Sun10/24/19 at 2142, Anesthesia Intra-op, Routine Given 10/24/2019 6:12 PM EDT 12 mcg Given 10/24/2019 6:10 PM EDT 12 mcg esmoloL (BREVIBLOC) injection PRN, Starting on Sun10/24/19 at 1518, Until Sun10/24/19 at 2142, Anesthesia Intra-op, Routine Given 10/24/2019 5:49 PM EDT 20 mg Given 10/24/2019 3:18 PM EDT 10 mg fentaNYL 50 mcg/mL multi-dose injection PRN, Starting on Sun10/24/19 at 1403, Until Sun10/24/19 at 2142, Anesthesia Intra-op, Routine Given 10/24/2019 3:14 PM EDT 25 mcg Given 10/24/2019 2:03 PM EDT 100 mcg HYDROmorphone (DILAUDID) injection PRN, Starting on Sun10/24/19 at 1710, Until Sun10/24/19 at 214, Anesthesia Intra-op, Routine Given 10/24/2019 5:10 PM EDT 0.2 mg lactated ringers infusion CONTINUOUS PRN, Starting on Sun10/24/19 at 1351, Until Sun10/24/19 at 2142, Anesthesia Intra-op New Bag 10/24/2019 5:14 PM EDT New Bag 10/24/2019 2:47 PM EDT New Bag 10/24/2019 1:51 PM EDT lidocaine (PF) (XYLOCAINE) 100 mg/5 mL (2 %) injection PRN, Starting on Sun10/24/19 at 1403, Until Sun10/24/19 at 2142, Anesthesia Intra-op, Routine Given 10/24/2019 2:03 PM EDT 100 mg midazolam (PF) (VERSED) multi-dose injection PRN, Starting on Sun10/24/19 at 1359, Until Sun10/24/19 at 2142, Anesthesia Intra-op, Routine Given 10/24/2019 1:59 PM EDT 2 mg PHENYLephrine (NAVARRO-SYNEPHRINE) 20 mg in sodium chloride 250 mL (standard ADULT & Pedi greater than 20kg) infusion CONTINUOUS PRN, Starting on Sun10/24/19 at 1403, Until Sun10/24/19 at 2142, Anesthesia Intra-op, Routine Rate/Dose Change 10/24/2019 4:46 PM EDT 40 mcg/min 30 mL/hr Rate/Dose Change 10/24/2019 3:48 PM EDT 70 mcg/min 52.5 mL /hr Rate/Dose Change 10/24/2019 3:29 PM EDT 80 mcg/min 60 mL/h r PHENYLephrine in NS (PF) (NAVARRO-SYNEPHRINE) 0.8 mg/10 mL (80 mcg/mL) multi-dose injection Syrg PRN, Starting on Sun10/24/19 at 1447, Until Sun10/24/19 at 2142, Anesthesia Intra-op, Routine Given 10/24/2019 2:48 PM EDT 80 mcg Given 10/24/2019 2:47 PM EDT 80 mcg Given 10/24/2019 2:43 PM EDT 80 mcg propofol (DIPRIVAN) 10 mg/mL bolus injection (Anesthesia) PRN, Starting on Sun10/24/19 at 1403, Until Sun10/24/19 at 2142, Anesthesia Intra-op Given 10/24/2019 6:14 PM EDT 50 mg Given 10/24/2019 2:08 PM EDT 50 mg Given 10/24/2019 2:06 PM EDT 50 mg rocuronium (ZEMURON) multi-dose injection PRN, Starting on Sun10/24/19 at 1405, Until Sun10/24/19 at 2142, Anesthesia Intra-op, Routine Given 10/24/2019 4:14 PM EDT 20 mg Given 10/24/2019 3:06 PM EDT 50 mg Given 10/24/2019 2:05 PM EDT 80 mg documented in this encounter Additional Health Concerns Infection Onset Date Last Indicated Resolved Time Rule Out Tuberculosis 10/24/2019 10/24/20192019 2:01 PM EDT documented as of this encounter Care Teams University Archivist Relationship Specialty Start Date End Date Christiana Moore APRN [address] [place] [address] PCP - General Family Medicine 09/26/19 documented as of this encounter
--- OUTSIDE RECORDS SUMMARY | 2023-11-12 02:17 | XMS_ITS | Encounter Summary ---
Author Organization [facility] [place] [address] Care Team Providers Care Medical Facilities Section Director Name Role Phone Oscar Christiana DAVIS Primary Care Provider [phone] Encounter Details Date Type Department Care Team (Late st Contact Info) Description 09/30/2019 3:15 PM EDT Clinical [place] [phone] Mediastinal mass Social History Tobacco Use Types Packs/Day Years [...] on file documented as of this encounter Progress Notes * Sol De Jesus RN - 09/30/2019 3:15 PM EDT PAT questionnaire reviewed with patient while in Pre Admission Testing. Pre- operative instruction booklet reviewed. Patient verbalizes a good understanding of all information reviewed. Hibiclens given with pre-op prep instructions. Pt educated on proper use of Incentive Spirometer and the importance of practicing prior to DOS. PLAN: Testing: Labs, EKG Special medication instructions: No meds listed Procedure date: Not booked. Tentatively 10/23 documented in this encounter Plan of Treatment Not on file documented as of this encounter Procedures Procedure Name Priority Date/Time Associated Diagnosis Comments EKG 12-LEAD Routine 09/30/2019 3:58 PM EDT Mediastinal mass documented in this encounter Results * EKG 12 Lead (09/30/2019 3:58 PM EDT) Ventricular rate 70 BPM MUSE SYSTEM Atrial Rate 70 BPM MUSE SYSTEM P-R Interval 158 ms MUSE SYSTEM QRS Duration 92 ms MUSE SYSTEM Q-T Interval 394 ms MUSE SYSTEM QTC Calculated (Bezet) 425 ms MUSE SYSTEM Calculated P [place] 45 degrees MUSE SYSTEM Calculated R [place] 21 degrees MUSE SYSTEM Calculated T [place] 43 degrees MUSE SYSTEM INTERPRETATION Normal sinus rhythm Possible Left atrial enlargement Left ventricular hypertrophy Abnormal ECG No previous ECGs available Confirmed by MD ROOSEVELT, ANANTH ([id number]) on 10/01/2019 4:46:14 PM MUSE SYSTEM 09/30/2019 3:58 PM EDT 10/01/2019 4:46 PM EDT Quentin Carlin MD ECG ORDERABLES MUSE SYSTEM documented in this encounter Visit Diagnoses Diagnosis Mediastinal mass Swelling, mass, or lump in chest documented in this encounter Care Teams Medical Facilities Section Director Relationship Specialty Start Date End Date Christiana Moore APRN [address] [place] [address] PCP - General Family Medicine 09/26/19 documented as of this encounter
--- OUTSIDE RECORDS SUMMARY | 2023-11-12 02:17 | XMS_ITS | Encounter Summary ---
Author Organization [facility] [place] [address] Care Team Providers Care Jacquard Twine Polisher Operator Name Role Phone Unavailable Primary Care Provider Unavailabl e Encounter Details Date Type Department Care Team (Late st Contact Info) Description 09/25/2019 Ancillary [facility] [id number] Christiana Moore APRN [address] [place] [address] Social History Tobacco Use Types Packs/Day Years Used Date Smoking Tobacco: Never Assessed Sex and Gender Information Value Date Recorded Sex Assigned at Not on file Gender Identity Not on file Sexual Orientation Not on file documented as of this encounter Plan of Treatment Not on file documented as of this encounter Procedures Procedure Name Priority Date/Time Associated Diagnosis Comments FILM LIBRARY STORAGE ONLY DX CHEST Routine 09/25/2019 12:00 AM EDT documented in this encounter Results * Film Library- Storage Only DX Chest (09/25/2019 12:00 AM EDT) Narrative XOCHITL - 09/26/2019 2:28 PM EDT This exam is auto-finalizing. It's purpose is for storage only. Christiana Moore APRN IMG FILM [facility]ARY ORD [facility]LES [facility] [place] documented in this encounter Visit Diagnoses Not on filedocumented in this encounter
--- OUTSIDE RECORDS SUMMARY | 2023-11-12 02:17 | XMS_ITS | Encounter Summary ---
Author Organization [facility] [place] [address] Care Team Providers Care Glass Maker Name Role Phone Christiana Moore RYAN Primary Care Provider Reason for Visit * Auth/Cert Specialty Diagnoses [...] Expiration Date Visits Re quested Visits Authorized [id number] 1 1 Encounter Details Date Type Department Care Team (Late st Contact Info) Description 10/24/2019 12:28 PM EDT - 10/24/2019 5:26 PM EDT Surgery [place] [address] Jose Alvarez MD [facility] [place] [address] @THYMECTOMY W/ RAD. MEDIASTINAL DISSECTION (WRVU 23.48) Social History Tobacco Use Types Packs/Day Years [...] Sign Reading Time Taken Comments Blood Pressure 141/76 10/24/2019 11:35 AM EDT Pulse 89 10/24/2019 11:35 AM EDT Temperature 37 ??C (98.6 ??F) 10/24/2019 11:35 AM EDT Respiratory Rate 16 10/24/2019 11:35 AM EDT Oxygen Saturation 99% 10/24/2019 11:35 AM EDT Inhaled Oxygen Concentration - - Weight 78.9 kg (174 lb) 10/24/2019 11:35 AM EDT Height 182.9 cm (6') 10/24/2019 [...] Primary * Fatou Dong PA - Physician Crankshaft Balancer * Benedicto Cameron PA - Physician Crankshaft Balancer * Tree Blum MD - Resident Procedure: [...] Hospital Course: Tree Lantigua was admitted to [facility] on 10/24/2019 [facility] Day [facility]. [...] a nurse in the Thoracic Clinic at [phone]. After hours or on weekends or holidays please call: [phone] and ask to speak to the Thoracic [...] the Thoracic Clinic or the Thoracic Surgeon international trade analyst after hours. Please take over the counter [...] Expires XR Chest PA & Lateral (Generic) [[id number] Custom] 11/09/2019 04/27/2020 Process Instructions: Scheduling Instructions: Questions: Where will study be performed?: [facility] Radiology Portable exam?: Reason for exam and clinical history: s/p R thoractomy w/ anteror mediastinal mass resection Clinical information / limon questions: please eval for PTX or effusions Stat read required?: Date of injury if applicable: Requested Time: Provider Contact Information: Primary Care Provider: Christiana Moore APRN [phone] Discharge References/Attachments: Discharge References/Attachments None For questions regarding this document or issues relating to this hospitalization on the Thoracic Surgery Service, please contact Dr. Alvarez's office at . Signed: SOCRAETS [place] 10/26/2019 Thoracic Surgery [facility] CC: PCP: Christiana Moore APRN Referring: Sadie Cavazos Md [address] [place] [address] documented in this encounter Discharge Instructions * [...] a nurse in the Thoracic Clinic at [phone]. After hours or on weekends or holidays please call: [phone] and ask to speak to the Thoracic [...] the Thoracic Clinic or the Thoracic Surgeon international trade analyst after hours. Please take over the counter [...] Alex MD - 10/25/2019 5:07 PM EDT [facility] Department of Thoracic Surgery Inpatient Progress Note Patient Name: Tree Lantigua Patient : [id number] Patient Patient Location: 302/302-A Attending Surgeon: JOSE ALVAREZ ID: Tree Lantigua [...] Encounter Date Admission (Current) from 10/24/[address] [place] [address] Office Visit from 09/30/2019 in Thoracic Surgery at [facility] Weight 78.9 kg (174 lb) 1 10/24/2019 [...] shifts: In: 3423 [P.O.:400; I.V.:3023] Out: 2420 [Urine:0; Other:320; Blood:50] Labs: Recent Labs 10/25/19 0330 [...] Alex MD 10/25/2019 Thoracic Surgery Service Pager [phone] * Deloris Szymanski MD - 10/24/2019 11:28 [...] Result Value Ref Range Surgical Pathology Report [id number] Location: OR; OR11; A The signing pathologist [...] Jarrod Vora Verified: 10/24/2019 Pathologist Performed at: -[facility] Dept. of Path ology, [place], [place] This intraoperative consultation should be interpreted [...] Continue post operative plan per primary team Deloris Szymanski MD 10/24/2019 * Paula Marion RN [...] and audible. Comfortable, only c/o hylton discomfort. 1929: Comfortable, VSS. Awaiting room assignment. 2014: Report to EVER Mitchell on . Pt [...] Admission order reviewed. Primary Insurance on file: [facility] MANAGED MEDICARE Secondary Insurance on file: None Primary care provider on file: Christiana Moore, FLAVORING OIL FILTERER [phone] Advance Directive on file and Code Status: Full Code Patient???s Functional Status: Independent in IADLs Living Situation: Has Lillian Tyson [address] [facility] [address] Supports: Family Assessment: Patient with no apparent RNCM/SW needs at this time. No housing, transportation, insurance, resources concerns identified at this time. Supports in place to achieve a safe post-hospital transition. No identified barriers to accessing necessary care and/or follow-up after discharge. Plan: Patient to d/c to home via private vehicle when medically ready. neurosurgery spine physician/Appliance Parts Counter Clerk will continue to follow patient???s progress and remain available if situation changes for coordination of care, psychosocial support and/or discharge planning. Dave Joseph RN Pager [phone] Extension [phone] * Plan of Care - Master Campbell [...] Masimo, NKE, hourly rounding, bed alarm, call jmaes within reach Patient-specific fall prevention interventions for [...] Operative Note Patient Name: Tree Lantigua : [id number] MR#: [id number] Case Date: 10/24/2019 Surgeon: Surgeon(s) and Role: * Jose Alvarez MD - Primary * Fatou Dong PA - Physician Crankshaft Balancer * Benedicto Cameron PA - Physician Crankshaft Balancer * Tree Blum MD - Resident Preoperative [...] SPECIMEN TO PATHOLOGY Anterior mediastinal mass OR Anterior mediastinal mass Anterior mediastinal mass resection YES, Please perform frozen section No 10/24/2019 3:43 PM Number of tissue samples (in container) 1 Time specimen removed from patient: 3:42 PM [place]IM[place] [id number] Anterior mediastinal mass Right lower lobe wedge excision YES, Please perform frozen section No 10/24/2019 3:59 PM Number of tissue samples (in container) 1 Time specimen removed from patient: 3:59 PM SPECIMEN TO PATHOLOGY Right middle lobe wedge OR 11 [id number] Anterior mediastinal mass Right middle lobe wedge excision YES, Please perform frozen section No 10/24/2019 4:04 PM Number of tissue samples (in container) 1 Time specimen removed from patient: 4:04 PM SPECIMEN TO PATHOLOGY Right upper lobe [place] 11 [id number] Anterior mediastinal mass Right upper lobe wedge excision YES, Please perform frozen section No 10/24/2019 4:22 PM Number of tissue samples (in container) 1 Time specimen removed from patient: 4:22 PM SPECIMEN TO PATHOLOGY Right upper lobe wedge #2 OR 11 [id number] Anterior mediastinal mass Right upper lobe wedge [...] IV thymoma. This plan was [facility] tumor [facility]. Operative findings: Approximately 200 cc [...] reapproximated with #2 Vicryl sutures in a [id number] fashion.The chest wall was closed in layers [...] PM EDT BLOOD GAS ARTERIAL POC Routine 0 3:38 PM EDT ANAEROBIC CULTURE STAT [...] MISC SOURCE Routine 10/24/2019 3:00 PM EDT NON-MANAGER EDUCATIONAL FINAL REPORT Routine 10/24/2019 2:58 PM EDT CYTOPATHOLOGY NON-GYNECOLOGICAL STAT 10/24/2019 2:58 PM EDT Thoracoscopy With Biopsy of Pleura 10/24/2019 1:51 PM EDT Mediastinal mass Thoracotomy With Therapeutic Wedge Resection Ea Addl 10/24/2019 1:51 PM EDT Mediastinal mass Injection Anes Agent &/ Steroid Intercostal Nerve Ea Addl Level (10251) 10/24/2019 1:51 PM EDT Mediastinal mass Thoracotomy With Therapeutic Wedge Resection Initial 10/24/2019 1:51 PM EDT Mediastinal mass Bronchoscopy, Diagnostic (19040) 10/24/2019 1:51 PM EDT Mediastinal mass Thymectomy, Radical Mediast Disssec (51819) 10/24/2019 1:51 PM EDT Mediastinal mass BRONCHOSCOPY,DIAGNOSTI [...] Glucose, POC 127 65 - 199 mg/dL [facility] Comment: Supplemental ranges: <140 mg/dL before meals <180 mg/dL all other times of the day Blood specimen (specimen) 10/25/2019 11:56 AM EDT 10/25/2019 11:56 AM EDT Jose Alvarez MD POINT OF CARE TEST O RDERABLES [facility] [place] [address] * (ABNORMAL) Differential, Automated (10/25/2019 3:30 AM EDT) Neutrophil % 81.8 % [facility] Neutrophil Absolute 10.92(H) 1.70 - 6.10 x10(3)/mc L [facility] Lymph % 8.6 % [facility] Lymphocytes Abs 1.1 0.9 - 3.2 x10(3)/ L [facility] Monocyte % 8.6 % [facility] Monocyte Abs 1.1(H) 0.3 - 0.9 x10(3)/ L [facility] Eos % 0.1 % [facility] Eosinophils Abs 0.0 0.0 - 0.4 x10(3)/[facility] Basophil % 0.2 % [facility] Baso Absolute 0.0 0.0 - 0.1 x10(3)/[facility] Immature Gran % 0.70 % [facility] Comment: Immature granulocytes(IG's)percentage and absolute count will include metamyelocytes, myelocytes, and promyelocytes. Blood smears from CBCs yielding IG's will be scanned manually for concordance. If this scan disagrees with the automated IG or if promyelocytes are noted, a manual differential will be performed. Immature Gran Absolute 0.09(H) 0.00 - 0.04 x10(3)/ L [facility] Blood specimen (specimen) 10/25/2019 3:30 AM EDT 10/25/2019 3:41 AM EDT Narrative Resulting Agency Comment Spec In Lab Tree Blum MD HEMATOLOGY ORDERABLE S [facility] [place] [address] * (ABNORMAL) Hemogram (10/25/2019 3:30 AM EDT) Pathologist [facility] White Blood Cell 13.3(H) 4.0 - 9.5 x10(3)/mc L [facility] Red Blood Cell 6.33(H) 4.58 - 5.54 x10(6)/mc L [facility] Hemoglobin 12.9(L) 13.7 - 16.5 gm/dL [facility] Hematocrit 42.1 40.5 - 48.5 % [facility] Mean Cell Volume 66.5(L) 82.9 - 93.1 fL [facility] Mean Cell Hemoglobin 20.4(L) 27.5 - 32.1 pg [facility] Mean Cell Hemoglobin Concentration 30.6(L) 32.0 - 35.7 gm/dL [facility] Platelet 325 145 - 357 x10(3)/[facility] RDW Standard Deviation 34.5(L) 36.0 - 45.0 [facility] RDW coefficient of variation 16.0(H) 11.4 - 13.8 % [facility] Mean Platelet Volume 10.0 7.6 - 12.9 [facility] NRBC% auto 0.0 % [facility] NRBC Absolute 0.000 0.000 - 0.000 x10(3)/[facility] Blood specimen (specimen) 10/25/2019 3:30 AM EDT 10/25/2019 3:41 AM EDT Narrative Resulting Agency Comment Spec In Lab Tree Blum MD HEMATOLOGY ORDERABLE S [facility] [place] [address] * (ABNORMAL) Basic Metabolic Panel (non-fasting) (10/25/2019 3:30 AM EDT) Glucose 132 65 - 199 mg/dL [facility] Comment:Diabetes: >=200 mg/d L plus symptoms Blood Urea Nitrogen 12 10 - 20 mg/dL [facility] Creatinine 0.71(L) 0.80 - 1.50 mg/dL [facility] Sodium 136 135 - 145 mmol/L [facility] Potassium 4.5 3.5 - 5.0 mmol/L [facility] Comment: Please note: ??Patients with WBC >100,000 may have falsely elevated Potassium levels. ??For accurate Potassium quantification in these patients send serum separator tube (gold top) for subsequent determinations. ??Contact the Clinical Chemistry Laboratory if there are any questions. Chloride 101 98 - 107 mmol/L [facility] Carbon Dioxide 24 22 - 31 mmol/L [facility] Anion Gap 11 5 - 15 mmol/L [facility] Calcium 8.9 8.5 - 10.5 mg/dL [facility] Est Glomerular Filtration Rate 98 >=60 mL/min/1. 73 m?? [facility] Comment: The eGFR was calculated using the CKD-EPI equation. As with all creatinine based estimates of kidney function, eGFR values calculated with the CKD-EPI equation are not accurate in patients with acute kidney failure, extremes of body mass or the acutely ill. http://[employer]/[facility] eGFR 114 >=60 mL/min/1. 73 m?? [facility] Comment: The eGFR was calculated using the CKD-EPI equation. As with all creatinine based estimates of kidney function, eGFR values calculated with the CKD-EPI equation are not accurate in patients with acute kidney failure, extremes of body mass or the acutely ill. http://[employer]nkf Blood specimen (specimen) 10/25/2019 3:30 AM EDT 10/25/2019 3:41 AM EDT Narrative Resulting Agency Comment Spec In Lab Jose Alvarez MD CHEMISTRY ORDERABLES [facility] [place] [address] * (ABNORMAL) Basic Metabolic Panel (non-fasting) (10/24/2019 6:30 PM EDT) Glucose 154 65 - 199 mg/dL [facility] Comment:Diabetes: >=200 mg/d L plus symptoms Blood Urea Nitrogen 12 10 - 20 mg/dL [facility] Creatinine 0.76(L) 0.80 - 1.50 mg/dL [facility] Sodium 136 135 - 145 mmol/L [facility] Potassium 3.7 3.5 - 5.0 mmol/L [facility] Comment: Please note: ??Patients with WBC >100,000 may have falsely elevated Potassium levels. ??For accurate Potassium quantification in these patients send serum separator tube (gold top) for subsequent determinations. ??Contact the Clinical Chemistry Laboratory if there are any questions. Chloride 102 98 - 107 mmol/L [facility] Carbon Dioxide 22 22 - 31 mmol/L [facility] Anion Gap 12 5 - 15 mmol/L [facility] Calcium 8.4(L) 8.5 - 10.5 mg/dL [facility] Est Glomerular Filtration Rate 96 >=60 mL/min/1. 73 m?? [facility] Comment: The eGFR was calculated using the CKD-EPI equation. As with all creatinine based estimates of kidney function, eGFR values calculated with the CKD-EPI equation are not accurate in patients with acute kidney failure, extremes of body mass or the acutely ill. http://[employer]/[facility] eGFR 111 >=60 mL/min/1. 73 m?? [facility] Comment: The eGFR was calculated using the CKD-EPI equation. As with all creatinine based estimates of kidney function, eGFR values calculated with the CKD-EPI equation are not accurate in patients with acute kidney failure, extremes of body mass or the acutely ill. http://[employer]/[facility] Blood specimen (specimen) 10/24/2019 6:30 PM EDT 10/24/2019 6:45 PM EDT Narrative Resulting Agency Comment Spec In Lab Jose Alvarez [place] [address] * Specimen to Pathology (10/24/2019 4:37 PM EDT) AP Specimen 10/24/2019 4:37 PM EDT 10/24/2019 4:37 PM EDT Narrative [facility] - 10/24/2019 4:37 PM EDT Specimen requisition ordered. ??Separate Pathology report to follow Jose Alvarez MD PATHOLOGY/[place] [address] * Specimen to Pathology (10/24/2019 4:22 PM EDT) AP Specimen 10/24/2019 4:22 PM EDT 10/24/2019 4:[address] [facility] - 10/24/2019 4:22 PM EDT Specimen requisition ordered. ??Separate Pathology report to follow Jose Alvarez MD PATHOLOGY/[place] [address] * Specimen to Pathology (10/24/2019 4:04 PM EDT) AP Specimen 10/24/2019 4:04 PM EDT 10/24/2019 4:04 PM EDT Narrative [facility] - 10/24/2019 4:04 PM EDT Specimen requisition ordered. ??Separate Pathology report to follow Jose Alvarez MD PATHOLOGY/[place] [address] * Specimen to Pathology (10/24/2019 3:59 PM EDT) AP Specimen 10/24/2019 3:59 PM EDT 10/24/2019 3:59 PM EDT Narrative [facility] - 10/24/2019 3:59 PM EDT Specimen requisition ordered. ??Separate Pathology report to follow Jose Alvarez MD PATHOLOGY/CYTOLOGY O BENJI Performing Organization Address [facility] [place] [address] * Specimen to Pathology (10/24/2019 3:43 PM EDT) AP Specimen 10/24/2019 3:43 PM EDT 10/24/2019 3:43 PM EDT Narrative [facility] - 10/24/2019 3:43 PM EDT Specimen requisition ordered. ??Separate Pathology report to follow Jose Alvarez MD PATHOLOGY/CYTOLOGY O BENJI Performing Organization Address [facility] [place] [address] * Surgical Pathology Report (10/24/2019 3:42 PM EDT) Pathologist [facility] Final Diagnosis [id number] ? Location: [facility]; [facility]; A The signing pathologist has (i) examined [...] the lymph nodes. Electronically signed by: ??Janessa Lae MD Verified: ??11/11/2019 ?Pathologist Performed at: ??-[facility] Dept. of Pathology, [place], [place] ?Surgical Pathology DIAGNOSIS A - Anterior [...] scars, negative for malignancy. Electronically signed by: ??Janessa Lea MD Verified: ??11/04/2019 ?Pathologist Performed at: ??-[facility] Dept. of Pathology, [place], [place] SYNOPTIC Specimen ? Procedure: ??Thymectomy Tumor [...] to adipose margin inked black. ? CAP eCC May 2018 Annual Release DISCUSSION Special stains [...] following tissue is submitted for frozen section: Field Associate section of the mass. Inked, serially sectioned and customer operations representative sections submitted in 9 cassettes as follows: . SPECIMEN PROCESSING ?A1: ??FS-1 ?A2-A9: ??Field Associate sections of lesion B - Labeled/Fixative: Right [...] following tissue is submitted for frozen section: Field Associate section of nodule. Field Associate sections in 4 cassettes as follows: ?B1: ??FS 1 ?B2: ??Stable line margins ?B3-B4: ??Field Associate sections C - Labeled/Fixative: Right middle lobe [...] Jarrod Vora Verified: ??10/24/2019 ?Pathologist Performed at: ??-[facility] Dept. of Pathology, [place], [place] This intraoperative consultation should be interpreted as a preliminary diagnosis pending review of the entire specimen and special studies, if any. 11/11/2019 9:43 AM EDT [facility] Frozen Specimen 10/24/2019 3 :42 PM EDT 10/24/2019 3:42 PM EDT LUNG STRUCTURE / Unknown 10/24/2019 3:42 PM EDT 10/24/2019 3:42 PM EDT Frozen Specimen 10/24/2019 3 :42 PM EDT 10/24/2019 3:42 PM EDT Frozen Specimen 10/24/2019 3 :42 PM EDT 10/24/2019 3:42 PM EDT Frozen Specimen 10/24/2019 3 :42 PM EDT 10/24/2019 3:42 PM EDT Jose Alvarez MD PATHOLOGY/CYTOLOGY O RDERABLES [facility] [place] [address] * (ABNORMAL) BLOOD GAS 2 ARTERIAL (10/24/2019 3:38 PM EDT) pH, Arterial 7.35 7.35 - 7.45 [facility] PCO2, Arterial 45 35 - 45 mmHg [facility] PO2, Arterial 81(L) 85 - 104 mmHg [facility] Bicarbonate, Arterial 24.4 20.0 - 26.0 mmol/L [facility] Base Excess, Arterial -1.2 -3.0 - 3.0 mmol/L [facility] Hgb Blood Gas 13.0(L) 13.7 - 16.5 gm/dL [facility] Oxyhemoglobin, Arterial 93.9(L) 94.0 - 97.0 % [facility] Carboxyhemoglob in, Arterial 1.3 % [facility] Comment: Nonsmokers: 0.5-1.5% COHB Smokers: Variable, but usually less than 10% Toxic: 20-30% COHB Lethal: Greater than 60% COHB Methemoglobin, Arterial 0.3 <=1.5 % [facility] Na Whole Blood 135 135 - 145 mmol/L [facility] K Whole Blood 3.9 3.5 - 5.0 mmol/L [facility] Comment: Please note: Patients with WBC >100,000 may have falsely elevated Potassium levels. Contact the Clinical Chemistry Laboratory if there are any questions. ICa Whole Blood 1.19 1.15 - 1.33 mmol/L [facility] Comment: Note: ??Total bilirubin higher than 20 mg/dL may lead to falsely low ionized calcium. CL Whole Blood 103 98 - 107 mmol/L [facility] Gluc Whole Bld 144 65 - 199 mg/dL [facility] Comment:Diabetes: >=200 mg/d L plus symptoms. Lactate WB 1.0 0.5 - 2.2 mmol/L [facility] FIO2 Art 84 % [facility] PF Ratio Art 96 [facility] Temp Art 37.1 Celsius [facility] Blood specimen (specimen) Arterial Draw / Unknown 10/24/2019 3:38 PM EDT 10/24/2019 4:50 PM EDT Narrative Resulting Agency Comment Spec In Lab Mata Carrillo MD POINT OF CARE TEST O RDERABLES [facility] [place] [address] * Anaerobic Culture (10/24/2019 3:00 PM EDT) Anaerobic Culture No anaerobic organisms isolated [facility] Pleural fluid specimen (specimen) 10/24/2019 3:00 PM EDT 10/24/2019 3:43 PM EDT Comment:RIGHT PLEURAL FLUID Narrative Resulting Agency Comment Spec In Lab Jose Alvarez MD MICROBIOLOGY - GENER AL ORDERABLES Performing Organization Address [facility] Co de Phone Number [facility] [place] [address] * Body Fluid Culture, Aerobic (10/24/2019 3:00 PM EDT) Body Fluid Culture No growth [facility] Gram Stain Cytocentrifuge Gram Stain performed Neutrophils seen No microorganisms seen. Results called to and read back by DR. ALVAREZ. [facility] Pleural fluid specimen (specimen) 10/24/2019 3:00 PM EDT 10/24/2019 3:43 PM EDT Comment:RIGHT PLEURAL FLUID Narrative Resulting Agency Comment Spec In Lab Jose Alvarez MD MICROBIOLOGY - GENER AL ORDERABLES Performing Organization Address [facility]/ZIP Co de Phone Number [facility] [place] [address] * Anaerobic Culture (10/24/2019 3:00 PM EDT) Anaerobic Culture No anaerobic organisms isolated [facility] Specimen from lung (specimen) 10/24/2019 3:00 PM EDT 10/24/2019 3:41 PM EDT Comment:PLEURAL GRUMOUS Narrative Resulting Agency Comment Spec In Lab Jose Alvarez MD MICROBIOLOGY - GENER AL ORDERABLES Performing Organization Address City/[facility]/ZIP Co de Phone Number [facility] [place] [address] * Tissue culture (10/24/2019 3:00 PM EDT) Tissue Culture No growth [facility] Gram Stain Moderate Neutrophils seen No microorganisms seen. Results called to and read back by DR. ALVAREZ. [facility] Specimen from lung (specimen) 10/24/2019 3:00 PM EDT 10/24/2019 3:41 PM EDT Comment:PLEURAL GRUMOUS Narrative Resulting Agency Comment Spec In Lab Jose Alvarez MD MICROBIOLOGY - GENER AL ORDERABLES Performing Organization Address City/[facility]/ZIP Co de Phone Number [facility] [place] [address] * Fungus culture Other (10/24/2019 3:00 PM EDT) Fungus Culture No Fungus isolated [facility] Specimen of unknown material (specimen) 10/24/2019 3:00 PM EDT 10/24/2019 3:44 PM EDT Comment:PLEURAL GRUMOUS Narrative Resulting Agency Comment Spec In Lab Jose Alvarez MD MICROBIOLOGY - GENER AL ORDERABLES Performing Organization Address [facility] Co de Phone Number [facility] [place] [address] * AFB culture Lung (10/24/2019 3:00 PM EDT) Acid Fast Bacilli Culture No Acid Fast Bacilli isolated If active tuberculosis is suspected, the patient should be on [employer]. Call Infection Prevention for assistance if needed. [facility] Acid Fast Stain No Acid Fast Bacilli seen [facility] Specimen from lung (specimen) 10/24/2019 3:00 PM EDT 10/24/2019 3:44 PM EDT Comment:PLEURAL GRUMOUS Narrative Resulting Agency Comment Spec In Lab Jose Alvarez MD MICROBIOLOGY - GENER AL ORDERABLES Performing Organization Address City/[facility]/ZIP Co de Phone Number [facility] [place] [address] * Non-Records Analyst Final Report (10/24/2019 2:58 PM EDT) Diagnosis Discussion [id number] ? Location: 3[facility]; 0302; A The signing pathologist has (i) examined the relevant preparation(s) for the specimen(s) and (ii) rendered or confirmed the diagnosis(es). . ? Non-Records Analyst Final DIAGNOSIS Negative for Malignancy Electronically signed by: ??Harsh JORDAN PhD, Juancarlos Schmitz Verified: ??10/27/2019 ?Pathologist Performed at: ??-[facility] Dept. of Pathology, [place], [place] DISCUSSION Pleural, right (thoracentesis): The specimen [...] Cell Block 1. 10/27/2019 3:11 PM EDT [facility] RIGHT PLEURAL FLUID / Unknown 10/24/2019 2:58 PM EDT 10/24/2019 2:58 PM EDT Jose Alvarez MD PATHOLOGY/CYTOLOGY O BENJI Performing Organization Address [facility] Co de Phone Number [facility] [place] [address] * Cytopathology Non-Gynecological (10/24/2019 2:58 PM EDT) AP Specimen 10/24/2019 2:58 PM EDT 10/24/2019 2:58 PM EDT Narrative [facility] - 10/24/2019 2:58 PM EDT Specimen requisition ordered. ??Separate Pathology report to follow Jose Alvarez MD PATHOLOGY/CYTOLOGY O [employer] Performing Organization Address City/[facility]/[place] [address] documented in this encounter Visit Diagnoses Diagnosis [...] Given 10/26/2019 1:28 AM EDT 1,000 mg BUpivacaine (PF) (MARCAINE) 0.5 % (5 mg/mL) injection ONCE PRN, Starting on Sun10/24/19 at 1646, Until Sun10/26/19 at 1605, Intra-Operative (Intra-Procedure), Routine Given 10/24/2019 4:46 PM EDT 16 mLs 19- Surgical Site BUpivacaine liposome (PF) (EXPAREL) 1.3 % (13.3 mg/mL) injection for infiltration ONCE PRN, Starting on Sun10/24/19 at 1702, Until Sun10/26/19 at 1605, Intra-Operative (Intra-Procedure) Given 10/24/2019 5:26 PM EDT 20 mLs 19- Surgical Site Given 10/24/2019 5:02 PM EDT 20 mLs 19 - Surgical Site docusate sodium (Colace) capsule 100 [...] Routine Given 10/26/2019 6:22 AM EDT 5,000 Unit s Given 10/25/2019 9:59 PM EDT 5,000 Units Given 10/25/2019 1:43 PM EDT 5,000 Units magnesium hydroxide (Milk of Magnesia) (240 mg/mL) oral liquid 5 mL 5 mL, Oral, DAILY PRN, Starting on Sun10/25/19 at 2217, Until Sun10/26/19 at 1605, Constipation, 10 mL concentrate = [...] Paula Marion RN)0605 (Given - Provider: Paula Marion RN)1109 (Given - Provider: Master Campbell RN)1717 (Given - Provider: Master Campbell RN) 0128 [...] on Sun10/24/19 at 2130, Until Discontinued, Routine 2146 (Given - Provider: Paula Marion RN) 0900 (Not Given - Provider: Master Campbell RN - Reason: Patient/family refused)1500 (Not Given - Provider: Master Campbell RN - Reason: Patient/family refused)2159 (Given - Provider: Lillian Sinha, EVER) 0900 (Not Given - Provider: Ana Luisa Ramirez RN - Reason: Patient/family refused) heparin (Porcine) subcutaneous injection 5,000 Units (COMPLETED) 5,000 Units, Subcutaneous, ONCE, 1 dose, On Sun10/24/19 at 1230, Not within 60 minutes of placing epidural catheter., Day of Surgery (Day of Procedure), Routine 1213 (Given - Provider: Cammie Machado, EVER) heparin (Porcine) subcutaneous injection 5,000 Units 5,000 Units, Subcutaneous, EVERY 8 HOURS SCHEDULED, First dose on Sun10/24/19 at 2200, Until Discontinued, Routine 2147 (Given - Provider: Paula Marion, RN) 0605 (Given - Provider: Paula Marion, RN)1343 (Given - Provider: Master Campbell, EVER)2159 (Given - Provider: Lillian Sinha, EVER) 0622 (Given - Provider: Lillian Sinha, EVER)1400 (Due) ketorolac (TORADOL) injection 30 mg (COMPLETED) 30 mg, Intravenous, EVERY 6 HOURS SCHEDULED, 6 doses, First dose on Sun10/24/19 at 1845, Last dose on Sun10/26/19 at 0000, Recovery (Recovery-Hospital Unit), Routine 1859 (Given - Provider: Sera Silva RN) 0016 (Given - Provider: Paula Marion RN)0605 (Given - Provider: Paula Marion RN)1109 (Given - Provider: Master Campbell, EVER)1717 (Given - Provider: Master Campbell RN) 0127 (Given - Provider: Norma Gr RN) lactated ringers infusion (CANCELED) 100 mL/hr, Intravenous, ONCE, 1 dose, On Sun10/24/19 at 1915, Recovery (Recovery-Hospital Unit) 1910 (Restarted - Provider: Sera Silva, EVER)1913 (Not Given - Provider: Sera Silva RN - Reason: See comment - Comment: used service IV order) 0438 (Stopped - Provider: Paula Marion RN) senna (Senokot) tablet 17.2 mg 17.2 mg, Oral, EVERY EVENING, First dose on Sun10/25/19 at 1700, Until Discontinued, Routine 1700 (Not Given - Provider: Mataiah L Campbell, RN - Reason: Patient/family refused) sodium chloride 0.9 % (flush) flush 5 mL 5 mL, Intravenous, 2 TIMES DAILY, First dose on Sun10/24/19 at 2130, Until Discontinued, Recovery (Recovery-Hospital Unit), Routine 213 (Not Given - Provider: Paula Marion RN - Reason: See comment) 1112 (Given - Provider: Master Campbell, RN)2159 (Given - Provider: Lillian Sinha, EVER) 0900 (Given - Provider: Ana Luisa Ramirez RN) Continuous Medication Order 10/24/2019 10/25/2019 10/26/2019 lactated ringers infusion (CANCELED) 1,000 mL, at 100 mL/hr, Intravenous, CONTINUOUS, Starting on Sun10/24/19 at 1845, Until Sun10/24/19 at 1958, PACU Recovery 192 (New Bag - Provider: Sera Silva, EVER) PRN Medication Order 10/24/2019 10/25/2019 10/26/2019 BUpivacaine [...] regular, Routine 0622 (Given - Provider: Lillian Sinha, EVER) oxyCODONE (Roxicodone) tablet 5 mg 5 mg, Oral, EVERY 4 HOURS PRN, Starting on 10/24/19 at 1824, Until 10/26/19 at 1605, Pain, May repeat 5 mg in 60 minutes if pain not relieved., Recovery (Recovery-Hospital Unit), Routine 2147 (Given - Provider: Paula Marion, RN) 0442 (Given - Provider: Paula Marion, RN) sodium chloride 0.9 % (flush) flush 5-20 mL 5-20 mL, Intravenous, EVERY 1 MIN PRN, Starting on 10/24/19 at 2044, Until 10/26/19 at 1605, flush, Flush pertains to all indwelling lines. Flush per protocol found in the job aid using the link provided on this medication record., Recovery (Recovery-Hospital Unit), Routine documented in this encounter Additional Health Concerns Infection Onset Date Last Indicated Resolved Time Rule Out Tuberculosis 10/24/2019 10/24/20192019 2:01 PM EDT documented as of this encounter Care Teams Glass Maker Relationship Specialty Start Date End Date Christiana Moore APRN [address] [place] [address] PCP - General Family Medicine 09/26/19 documented as of this encounter
--- OUTSIDE RECORDS SUMMARY | 2023-11-12 02:17 | XMS_ITS | Encounter Summary ---
Author Organization [facility] [place] [address] Care Team Providers Care [employer] Science Teacher Name Role Phone Christiana Moore APRN Primary Care Provider [phone] Reason for Referral * Diagnostic Test (Routine) - Closed Specialty Diagnoses / Procedures Referred By Contac t Referred To Contact Radiology Diagnoses Mediastinal mass Procedures NM PET CT Skull Base to Mid-thigh Quentin Carlin MD [facility] [place] [address] [place] [address] Referral ID Status Reason Start Date Expiration Date V isits Requested Visits Authorized [id number] Closed Specialty Service Requested 10/06/2019 11/20/2019 1 1 Reason for Visit * Diagnostic Test (Routine) - Closed Specialty Diagnoses / Procedures Referred By Contac t Referred To Contact Radiology Diagnoses Mediastinal mass Procedures NM PET CT Skull Base to Mid-thigh Quentin Carlin MD [facility] [place] [address] [place] [address] Referral ID Status Reason Start Date Expiration Date V isits Requested Visits Authorized [id number] Closed Specialty Service Requested 10/06/2019 11/20/2019 1 1 Encounter Details Date Type Department Care Team (Latest Contact Info) Description 10/08/2019 8:50 AM EDT Hospital Encounter [place] [address] Quentin Carlin MD [facility] [place] [address] Mediastinal mass Discharge Disposition: Home Social History [...] Procedure Name Priority Date/Time Associated Diagnosis Comments NM PET CT SKULL BASE TO MID-THIGH ([facility]) Routine 10/08/2019 10:14 AM EDT Mediastinal mass POCT GLUCOSE Routine 10/08/2019 8:56 AM EDT documented in this encounter Results * (ABNORMAL) NM PET CT Skull Base to Mid-thigh (10/08/2019 10:14 AM EDT) Anatomical Region Laterality Modality Positron Emissio n Tomography (PET) Impressions 10/08/2019 11:40 AM EDT 1. ??A 9 cm moderately FDG avid mass in the right anterior mediastinum abutting the pericardium, with pericardial invasion not excluded. 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 2. ??CT visualized subcentimeter pulmonary nodules in both lungs as detailed above are indeterminate and may be below the sensitivity of PET. Small pulmonary metastases not excluded. 3. ??Small mildly FDG lymph nodes in the bilateral hilar region, favored to represent benign reactive nodes. 4. ??Multiple small FDG avid lymph nodes in the bilateral neck, axillary, and bilateral external iliac and inguinal regions, which most likely represent benign reactive nodes. 5. ??Unexpected finding. Segmental area of heterogeneously increased FDG uptake in the sigmoid colon where there is diverticular disease and a suggestion of adjacent soft tissue stranding on CT. Findings are highly suggestive of diverticulitis, of questionable clinical significance. Please correlate with clinical exam. I have personally reviewed the image(s) and the resident's interpretation and agree with the findings, Chris Sutton at 10/08/2019 11:40 AM Thank you for letting us participate in the care of this patient. For questions regarding this report, please contact the number below. ? Narrative 10/08/2019 11:40 AM EDT EXAMINATION: NM PET CT SKULL BASE TO MID-THIGH ? CLINICAL HISTORY: Metastatic disease evaluation hx of mediastinal mass, possible thymoma stage IV, please eval for changes, evidence of disease, metastatic disease TECHNIQUE: Following IV injection of 07-lqgzsc-3-deoxyglucose (FDG) a standard uptake of approximately 60 minutes, a noncontrast CT scan followed by a PET scan were acquired from the base of the skull to mid thighs. The noncontrast CT was used for anatomic localization and photon attenuation correction of the PET scan. Blood glucose level: 111 (mg/dL) FDG dose: 11.7 mCi COMPARISON: Chest CT 09/25/2019 FINDINGS: HEAD/NECK: Several small FDG avid lymph nodes in the bilateral level 2 regions, which most likely represent benign reactive nodes. Normal activity in all other soft tissue regions. CHEST: A 9 cm moderately FDG avid mass in the right anterior mediastinum abutting the pericardium with pericardial invasion not excluded. Small mildly FDG avid lymph nodes in the bilateral hilar region, favored to represent benign reactive nodes. Multiple FDG avid small to borderline-enlarged lymph nodes in the bilateral axillary regions, most of which have a benign appearance on CT and all favored to represent benign reactive nodes. Normal activity in all other soft tissue regions. CT visualized subcentimeter pulmonary nodules in both lungs including in the right middle lobe (axial image 112), on the right major fissure (axial image 102), in the left lower lobe (axial image 114), and in the left upper lobe (axial image 91). Small bilateral pleural effusions again noted. ABDOMEN/PELVIS: Multiple small FDG avid lymph nodes in the bilateral external iliac and inguinal regions, favored to represent benign reactive nodes. A segmental area of heterogeneously increased FDG uptake in the sigmoid colon (centered on axial images 225 through 230), where there is diverticular disease and a suggestion of adjacent soft tissue stranding on CT. Normal activity in all other soft tissue regions. Multiple bilateral simple appearing renal cysts. SKELETON/EXTREMITIES: Normal activity in all regions of the axial and visualized appendicular skeleton. Resulting Agency Comment Unexpected Finding Quentin Carlin MD IMG PET ORDERABLES * POCT Glucose (10/08/2019 8:56 AM EDT) Glucose, POC 111 65 - 199 mg/dL [facility] Comment: Supplemental ranges: <140 mg/dL before meals <180 mg/dL all other times of the day Blood specimen (specimen) 10/08/2019 8:56 AM EDT 10/08/2019 8:56 AM EDT Quentin Carlin MD POINT [place] [address] documented in this encounter Visit Diagnoses Diagnosis Mediastinal mass Swelling, mass, or lump in chest documented in this encounter Care Teams [employer] Science Teacher Relationship Specialty Start Date End Date Christiana Moore APRN [address] [place] [address] PCP - General Family Medicine 09/26/19 documented as of this encounter
--- OUTSIDE RECORDS SUMMARY | 2023-11-12 02:17 | XMS_ITS | Encounter Summary ---
Author Organization [facility] [place] [address] Care Team Providers Care Transcriber Name Role Phone Oscar Christiana RYAN Primary Care Provider [phone] Reason for Visit * Diagnostic Test (Routine) - Closed Specialty Diagnoses / Procedures Referred By Contac t Referred To Contact Radiology Diagnoses Mediastinal mass Procedures NM PET CT Skull Base to Mid-thigh Quentin Carlin MD [facility] [place] [address] [facility] [place] [address] Referral ID Status Reason Start Date Expiration Date V isits Requested Visits Authorized [id number] Closed Specialty Service Requested 10/06/2019 11/20/2019 1 1 Encounter Details Date Type Department Care Team (Latest Contact Info) Description 10/08/2019 8:50 AM EDT Hospital Encounter [place] [address] Quentin Carlin MD [facility] [place] [address] Discharge Disposition: Home Social History Tobacco Use [...] Routine 10/08/2019 10:14 AM EDT Mediastinal mass documented in this encounter Results * (ABNORMAL) [...] metastatic disease TECHNIQUE: Following IV injection of 72-fgdnmo-5-deoxyglucose (FDG) a standard uptake of approximately 60 [...] Finding Quentin Carlin MD IMG PET ORDERABLES documented in this encounter Visit Diagnoses Not on filedocumented in this encounter Administered Medications Inactive Administered Medications - up to 3 most recent administrations Medication Order MAR Action Action Date Dose Rate Site fludeoxyglucose (F-18) FDG injection 0-20 mCi 0-20 mCi, Intravenous, ONCE PRN, 1 dose, Starting on Sun10/08/19 at 0903, Until Sun10/08/19 at 0859, Per Protocol, Radiology Contrast, Routine Given 10/08/2019 8:59 AM EDT 11.7 mCi Right Arm documented in this encounter Care Teams Transcriber Relationship Specialty Start Date End Date Christiana Moore APRN [address] [place] [address] PCP - General Family Medicine 09/26/19 documented as of this encounter
--- OUTSIDE RECORDS SUMMARY | 2023-11-12 02:17 | XMS_ITS | Encounter Summary ---
Author Organization [facility] [place] [address] Care Team Providers Care Steamer Operator Name Role Phone Christiana Moore APRN Primary Care Provider [phone] Encounter Details Date Type Department Care Team (Late st Contact Info) Description 10/20/2019 [place] [phone] Kim Hinton Social History Tobacco Use Types Packs/Day Years [...] encounter Miscellaneous Notes * Telephone Encounter - Kim Hinton - 10/20/2019 6:35 PM EDT Telephone call placed/received to schedule covid 19 testing with patient. Ordering provider: Dr. Soares Testing Facility: [place] Date of Testin10/21/2019 Time of Testin:15am Symptoms: na * Telephone Encounter - Kim Hinton - 10/20/2019 6:12 PM EDT LM to schedule Covid testing for surgery 10/24/2019 documented in this encounter Plan of Treatment Not on file documented as of this encounter Visit Diagnoses Not on filedocumented in this encounter Additional Health Concerns Infection Onset Date Last Indicated Resolved Time Rule Out Tuberculosis 10/24/2019 10/24/20192019 2:01 PM EDT documented as of this encounter Care Teams Steamer Operator Relationship Specialty Start Date End Date Christiana Moore APRN [address] [place] [address] PCP - General Family Medicine 09/26/19 documented as of this encounter
--- OUTSIDE RECORDS SUMMARY | 2023-11-12 02:17 | XMS_ITS | Referral Summary ---
Author Organization [facility] Address [address] [place] [address] Care Team Providers Care Farmworker [employer]oder [employer] Name Role Phone Unknown, Provider Primary Care Provider [phone] Allergies Active Allergy Reactions Criticality Noted Date [...] 12:32 EDT Sexual Orientation Not on file Last Filed [...] Body Mass Index 25.06 10/25/2020 1006 EDT Functional Status Functional Status Response Date of Assess ment Because of a physical, menta l, or emotional condition, does this person have difficulty doing errands alone such as visiting a doctor's office or shopping? Yes 10/25/2020 Cognitive Status Response Date of Assessm ent Because of a physical, menta l, or emotional condition, does this person have serious difficulty concentrating, remembering, or making decisions? No 10/25/2020 Plan of Treatment Not on file Procedures Procedure Name Priority Date/Time Associated Diagnosis Comments HEPATITIS C AB W REFLEX TO HCV RNA BY PCR Routine 09/24/2019 14:40 EDT from Last 3 Months or Most Recently Relevant to Health Maintenance Results * HEPATITIS C AB W REFLEX TO HCV RNA BY PCR (09/24/2019 14:40 EDT) Hep C Antibody Negative Negative 09/26/2019 11:28 EDT [facility] Blood VENOUS BLOOD / Unknown 09/24/2019 14:40 EDT 09/25/2019 15:54 EDT Provider Outr Resulting Lab CHEMISTRY & BLOOD GAS ORDERABLES [facility] [address] [place] [address] from Last 3 Months or Most Recently Relevant to Health Maintenance Care Teams Farmworker [employer]oder Farm Relationship Specialty Start Date End Date Unknown, Provider, PCP - General 10/22/20
--- OUTSIDE RECORDS SUMMARY | 2023-11-12 02:17 | XMS_ITS | Encounter Summary ---
[place] [address] Care Team Providers Care Choreography Director Name Role Phone Oscar Christiana RYAN Primary Care Provider [phone] Reason for Referral * Diagnostic Test (Routine) - Closed Specialty Diagnoses / Procedures Referred By Contac t Referred To Contact Radiology Diagnoses Mediastinal mass Procedures NM PET CT Skull Base to Mid-thigh Jose Alvarez MD [facility] [place] [address] [place] [address] Referral ID Status Reason Start Date Expiration Date V isits Requested Visits Authorized [id number] Closed Specialty Service Requested 10/06/2019 11/20/2019 1 1 Reason for Visit * Reason Comments Mass * Consultation (Urgent) - Specialty Diagnoses / Procedures Referred By Contac t Referred To Contact Thoracic Surgery Diagnoses Mediastinal mass Mediastinal Mass Sadie Cavazos MD [address] [place] [address] [facility] [place] [facility] [address] [place] [phone] Referral ID Status Reason Start Date Expiration Date V isits Requested Visits Authorized [id number] Consult, [facility] PCP Updated and/or Approved 09/26/2019 09/25/2020 12 12 Encounter Details Date Type Department Care Team (Late st Contact Info) Description 09/30/2019 1:00 PM EDT Office [place] [address] Jose Alvarez MD [facility] [place] [address] Mediastinal mass Social History Tobacco Use Types [...] Sign Reading Time Taken Comments Blood Pressure 141/84 09/30/2019 12:53 PM EDT Pulse 90 09/30/2019 12:53 PM EDT Temperature 37 ??C (98.6 ??F) 09/30/2019 12: 53 PM EDT Respiratory Rate 18 09/30/2019 12:5 3 PM EDT Oxygen Saturation 100% 09/30/2019 12: 53 PM EDT Inhaled Oxygen Concentration - - Weight 79.1 kg (174 lb 6.4 oz) 09/30/19 20 12:53 PM EDT with shoes Height 181 cm (5' 11.26) 09/30/2019 12 :53 PM EDT with shoes Body Mass Index 24.15 09/30/2019 12:53 PM EDT documented in this encounter Patient Instructions * Patient Instructions* Monica Price RN - 09/30/2019 1:00 PM EDT Thank you for visiting Dr. Alvarez in clinic 09/30/19 Dr. Alvarez would like to schedule you for your PET scan and Pulmonary Function Test. As well as schedule you for your surgery. You will receive a call to schedule this appointment. You will check in for you PET scan at [facility] area 3Z. Please refrain from eating or drinking anything after midnight SundayOctober 06 - Water only after midnight SundayOctober 07 until after PET scan. This includes NO GUM, MINTS, TIC TAC's, no candy, etc.. If you do eat or drink anything, your test will be canceled and rescheduled for a later date. You will check in at [facility] area 5C for your Pulmonary Function Testing. This testing will take less than one hour. Your procedure is scheduled for Sunday. You will receive a phone call from the OR nurses on October after 12pm through 6 pm. They will confirm your arrival time, reviewwhat medications to take and when to stop eating and drinking. Your procedure will occur in [facility] area 4W. A thoracotomy is a 3 to 8 inch incision made on your chest. It can extend to your back. Some muscleis cut and the ribs are spread apart. The size and location of the incision depends on the part of the lung being removed. A thymectomy is the removal of the thymus. The thymus, a small organ that lies in the upper chest under the breastbone, is part of the lymph system. It makes white blood cells, called lymphocytes, that protect the body against infections. This is a gland that helps protect you from infections during childhood, but has no known function in adults. Bronchoscopy is the term for a procedure in which a scope (thin tube with a light source on the end), is placed through your mouth or nose and into your trachea and large airways. A small amount of tissue from the surface of the area is removed. The removal of the tissue is called a biopsy. A wedge is the removal of a small part of the lobe of the lung. A video-assisted thoracoscopic surgery, or VATS, involves a range of technologies to enable the removal of tissue through several smallcuts in the chest. A tiny camera, light supply and surgical tools are inserted in the incisions andthrough the body to the surgical site. Before your Surgery: ?? Preadmission Testing today in clinic 4V PLEASE WASH WITH EITHER DIAL SOAP or the HIBICLENS SOAP included in this package. You may shower either the night before or the morning of surgery and please place clean clothes on after your shower ?? Exercise: Daily aerobic exercise for at least 30 minutes will help improve your endurance and improve the breathing capacity of your lungs. This means that you are breathing hard, your heart is beating fast and that you are sweating. Examples of this include walking, biking, swimming, and using a treadmill or stationary bike. You will be expected to exercise after surgery as well. Incentive Spirometer: Use your incentive spirometer as you were shown in clinic: 6 times daily/10 breaths each time. You may also bundle the use of the incentive spirometer as well - 30 breaths in the morning and 30 breaths at night. Please keep your incentive spirometer near your favorite chair so that in between commercials you can remember to use it! Take a slow, deep breath in through your mouth. While the piston rises, the indicator on the right should move upwards. It should stay between the 2 arrows for 2 to 4 seconds with each breath. If theindicator does not stay between the arrows, you are breathing either too fast or too slowly. The incentive spirometer will help you expand your lungs and encourage you to breathe deeply and fully. Please bring your incentive spirometer to the hospital with you on the day of surgery. You willuse the incentive spirometer as part of your recovery process and to prevent complications such as pneumonia. Some things to expect during your surgery and while you are in the hospital: You will have a chest tube placed while you are in surgery. A Chest tube is a flexible tube that isused to drain blood, fluid and air from around your lungs after surgery. The tube enters your body between your ribs and goes into the space where the piece of lung was removed. The chest tube will come out a day after surgery, if there is no air leak in your lung. If there is an air leak, the chest tube will stay in until it stops. The nurse and doctor will be watching for the air leak to clear up regularly throughout the day. Bowel regimen while at home. Please obtain senna (Senokot) tablets, colace tablets, and Miralax powder. You will need to take senna once a day, colace three times a day and miralax once a day to keepyour bowels moving. If you do not have a bowel movement in 2 days you will need to call the office as you will need to obtain either Milk of Magnesia (MOM), a Fleet's enema or glycerin suppositories.If you are having diarrhea, then you may back off on the bowel medications. If you are taking narcotics, you need to continue the bowel medications while you are taking the narcotics. Example of what you will be taking for pain control after your surgery. Please make sure that you have Tylenol (acetaminophen) and Motrin (ibuprofen) at home before you are discharged : [id number] mg alternate with ibuprofen 200 mg (2-3 tabs) every 3 hours : ex. Schedule - Tylenol 1000 mg at 8am, Ibuprofen 200 mg (2-3 tabs) at 11 am, then tylenol 1000 mg at 2 pm, then ibuprofen 200 mg (2-3 tabs) at 5 pm. Do not exceed more than 4000 mg of tylenol in [address] Alvarez 's team will see you twice per day while you are in the hospital. Two weeks after you leave the hospital, you will be scheduled to see Dr. Alvarez in his clinic and will also have a chest x-ray before you see him on this day. Please call the Thoracic Surgery nurse if you have any questions before or after your surgery at . ?? Exercise each day for 30 minutes [...] documented in this encounter Progress Notes * Carlito Ortiz - 09/30/2019 1:00 PM EDT Thoracic Surgery Attending Outpatient Consultation Note Jose Alvarez MD [place] [address] FAX: Date of Consultation: 09/30/2019 This consultation has been requested by PCP: Christiana Moore APRN Purpose for Consultation: Large mediastinal mass HPI: Tree Lantigua is a previously healthy 64 y.o. male recently found to have a large mediastinalmass. Patient states that he was having severe joint pain, out of the ordinary from his typical muscle aches. He reports that this began approximately 6 months ago and it would migrate and wax and wane. He felt it most in his fingers, ankles, and knees. It would progressively get worse during the day as he was more active. The pain would last a few days then improve. The pain improved with Advil.He has been feeling increasingly lethargic, and feels like he has no get up and go. He hasn't been sleeping any more but has felt less energetic for the past past 2 months. He has also lost ~5lbs in the past few months despite his normal good appetite though he attributes this to a recent trip where he walked more . 1 month ago he began to have [...] mass and recommended an additional chest CT. At the clinic he was febrile with a temperature of 101.1 degF.. Past Medical History: No other medical conditions Past Surgical History: Tonsillectomy 1956 Medications: Glucosamine Multivitamines Allergies: Allergies Allergen Reactions ??? Wasp Venom Family History: Father had bladder cancer Mother with hypertension Social History: Social History Socioeconomic History ??? Marital status: [...] Substance and Sexual Activity ??? Alcohol use: Not on file ??? Drug use: Not on file ??? Sexual activity: Not on file Lifestyle ??? Physical activity Days per week: Not on file Minutes per session: Not on file ??? Stress: Not on file Relationships ??? Social connections Talks on phone: Not on file Gets together: Not on file Attends judaism service: Not on file Active member of [...] Social History Narrative ??? Not on file Review of Systems: General: Reports weight loss, hasn't had any fevers. No night sweats. Head: Has cataracts so some improved, no weakness throughout the day Chest: No new cough, no SOB, Ortho: knee pain has been long winder tender, dull new pain in his joints but no associated swelling : no new testicular masses, has increased frequency of urination and wakes up at night Neuro: no slurring, looks the same no weakness that increases during the day. Physical Exam: BP 141/84 (Patient Position: Sitting) Pulse 90 Temp 37 ??C (98.6 ??F) (Temporal) Resp 18 Ht181 cm (5' 11.26) Comment: with shoes Wt 79.1 kg (174 lb 6.4 oz) Comment: with shoes SpO2 100% BMI 24.15 kg/m?? General Appearance: Alert, cooperative, no distress, appears stated age HEENT: PERRL, MMM, non-icteric Neck: Supple, symmetrical, trachea midline, no cervical, submandibular, subclavicular, occipital adenopathy; thyroid: not enlarged without tenderness/mass/nodules Lungs: Clear to auscultation bilaterally, respirations unlabored, no wheezes, crackles or ronchi. Heart: Regular rate and rhythm, S1 and S2 normal, no murmur, rub, or gallop Abdomen: Soft, non-tender, bowel sounds normo-active in all four quadrants, no masses, no organomegaly Extremities: Extremities normal, no cyanosis, clubbing. Neurologic: A+Ox3, cranial nerves II-XII intact,EOMI, finger flexion 5/5, Elbow flexion 5/5, Elbow extension 5/5, shoulder abduction 5/5, shoulder adduction 5/5, hip flexion 5/5, knee flexion 5/5, knee extension 5/5 Musculoskeletal: 5/5 throughout with normal gait Diagnostics: I have independently visualized all relevant imaging studies, including: CXR (09/26/2019): Findings: The heart is normal. There is a rounded density directly adjacent to the right heart border. The findings could represent a mass, pericardial cyst or hernia. There is blunting of both costophrenic angles. There are mild fibrotic changes at the lung bases. No focal area of consolidation isseen. Degenerative changes are seen in the spine. Impression: Abnormal density adjacent to the right heart border. CT Chest (09/26/2019): Impression: Large mass adjacent to the right heart border. Multiple bilateral pulmonary nodules suspicious of metastases Assessment: Tree Lantigua is a 64 y.o. male with no significant medical history who presents with a likely thymoma. He is active and has no other co- morbidities. Due to the characteristic findings on imaging, including position in the anterior mediastinum and encapsulation of the mass, this does not require biopsy to diagnose thymoma and we will proceed with surgery. Plan of Management: 1. PFTs 2. PET 3. Surgery 10/24/19 4. Continue to stay active pre-operatively 5. Please call with any questions or concerns BHARTI Oscar 09/30/[address] [facility] I have seen the patient and reviewed the medical student's above history. The assessment and plan were formulated in discussion with me. Please see my note for details. JOSE ALVAREZ MD documented in this encounter H&P Notes * Jose Alvarez MD - 09/30/2019 1:00 PM EDT Thoracic Surgery Attending Outpatient Consultation Note Jose Alvarez MD [place] [address] FAX: Date of Consultation: 09/30/2019 This consultation has been requested by PCP: Christiana Moore APRN Purpose for Consultation: Large mediastinal mass HPI: Tree Lantigua is a previously healthy 64 y.o. male recently found to have a large mediastinalmass. Patient states that he was having severe joint pain, out of the ordinary from his typical muscle aches. He reports that this began approximately 6 months ago and it would migrate and wax and wane. He felt it most in his fingers, ankles, and knees. It would progressively get worse during the day as he was more active. The pain would last a few days then improve. The pain improved with Advil.He has been feeling increasingly lethargic, and feels like he has no get up and go. He hasn't been sleeping any more but has felt less energetic for the past past 2 months. He has also lost ~5lbs in the past few months despite his normal good appetite though he attributes this to a recent trip where he walked more . 1 month ago he began to have [...] mass and recommended an additional chest CT. At the clinic he was febrile with a temperature of 101.1 degF but was not treated with abx. He comes in today for diagnostic and therapeutic options for this large right sided mediastinal mass. Past Medical History: No other medical conditions Past Surgical History: Tonsillectomy 1956 Medications: Glucosamine Multivitamines Advil PRN Allergies: Allergies Allergen Reactions ??? Wasp Venom Family History: Father had bladder cancer Mother with hypertension No other cancer history Social History: Social History Socioeconomic History ??? Marital status: [...] Substance and Sexual Activity ??? Alcohol use: Not on file ??? Drug use: Not on file ??? Sexual activity: Not on file Lifestyle ??? Physical activity Days per week: Not on file Minutes per session: Not on file ??? Stress: Not on file Relationships ??? Social connections Talks on phone: Not on file Gets together: Not on file Attends judaism service: Not on file Active member of [...] Social History Narrative ??? Not on file Review of Systems: General: Reports weight loss, hasn't had any fevers recently. No night sweats. Head: Has cataracts so some improved, no weakness throughout the day Chest: No new cough, no SOB, Ortho: knee pain has been chcf, dull new pain in his joints but no associated swelling : no new testicular masses, has increased frequency of urination and wakes up at night Neuro: no slurring, looks the same no weakness that increases during the day. Physical Exam: BP 141/84 (Patient Position: Sitting) Pulse 90 Temp 37 ??C (98.6 ??F) (Temporal) Resp 18 Ht181 cm (5' 11.26) Comment: with shoes Wt 79.1 kg (174 lb 6.4 oz) Comment: with shoes SpO2 100% BMI 24.15 kg/m?? General Appearance: Alert, cooperative, no distress, appears stated age HEENT: PERRL, MMM, non-icteric, EOMI Neck: Supple, symmetrical, trachea midline, no cervical, submandibular, subclavicular, occipital adenopathy; thyroid: not enlarged without tenderness/mass/nodules Lungs: Clear to auscultation bilaterally, respirations unlabored, no wheezes, crackles or ronchi. Heart: Regular rate and rhythm, S1 and S2 normal, no murmur, rub, or gallop Abdomen: Soft, non-tender, bowel sounds normo-active in all four quadrants, no masses, no organomegaly Extremities: Extremities normal, no cyanosis, clubbing. Trace bi-tibial edema Neurologic: A+Ox3, cranial nerves II-XII intact Musculoskeletal: 5/5 throughout with normal gait Diagnostics: I have independently visualized all relevant imaging studies, including: CXR (09/26/2019): Abnormal density adjacent to the right heart border. CT Chest (09/26/2019): 1. 8.5 cm lobulated mass adjacent to the right heart border. 2. Multiple bilateral pulmonary nodules suspicious of metastases, largest 9 mm 3. Mildly enlarged axillary LN -- no other LAD 4. Lucency in the posterior left 4th rib Assessment: Tree Lantigua is a 64 y.o. male with no significant medical history who presents with 8.5 cm right anterior mediastinal mass that is consistent with Thymoma with lung nodules concerning for metastatic disease. Plan of Management: 1. PFTs 2. PET for evaluation of metastatic disease outside the chest cavity. 3. Plan for right thoracotomy, resection of anterior mediastinal mass with possible diaphragm resection and reconstruction, multiple wedge resections to determine if these are metastatic lesions. We discussed biopsy and I do not think it is indicated. Consent signed today. Plan for surgery on 10/24/19 4. Minimum of 30 min of exercise per day. 5. Please call with any questions or concerns JOSE ALVAREZ MD documented in this encounter Plan of Treatment Not on file documented as of this encounter Procedures Procedure Name Priority Date/Time Associated Diagnosis Comments THYMECTOMY W/ RAD. MEDIASTINAL DISSECTION Routine 10/06/2019 3:26 PM EDT Mediastinal mass SCAN, PERIPHERAL BLOOD Routine 09/30/2019 4:03 PM EDT HEMOGRAM Routine 09/30/2019 4:03 PM EDT Mediastinal mass DIFFERENTIAL, AUTOMATED Routine 09/30/2019 4:03 PM EDT Mediastinal mass HC CBC,PLT & AUTO DIFF Routine 09/30/2019 4:03 PM EDT Mediastinal mass HC VENIPUNCTURE Routine 09/30/2019 4:03 PM EDT Mediastinal mass documented in this [...] metastatic disease TECHNIQUE: Following IV injection of 24-tpgcvs-8-deoxyglucose (FDG) a standard uptake of approximately 60 [...] appendicular skeleton. Resulting Agency Comment Unexpected Finding Jose Alvarez MD G PET ORDERABLES * Pulmonary Function Testing (10/07/2019 11:59 PM EDT) Narrative Gary Hines MD - 10/07/2019 11:59 PM EDT Gary Hines MD ? 10/12/2019 ??1:37 PM FVC , FEV1, FEV1/FVC within normal limits. Diffusing capacity within normal limits. Resting oxygen saturation on room air was normal. IMPRESSION: Within normal limits. Jose Alvarez MD PFT ORDERABLES * Scan, Peripheral Blood (09/30/2019 4:03 PM EDT) Plat estimate Normal [facility] RBC Morphology Abnormal [facility] [place] 1-5 /HPF [facility] Blood specimen (specimen) 09/30/2019 4:03 PM EDT 09/30/2019 4:09 PM EDT Narrative Resulting Agency Comment Spec In Lab Jose Alvarez MD HEMATOLOGY ORDERABLE S [facility] [place] [address] * (ABNORMAL) Differential, Automated (09/30/2019 4:03 PM EDT) Pathologist [facility] Neutrophil % 80.2 % [facility] Neutrophil Absolute 8.70(H) 1.70 - 6.10 x10(3)/mc L [facility] Lymph % 11.1 % [facility] Lymphocytes Abs 1.2 0.9 - 3.2 x10(3)/ L [facility] Monocyte % 5.8 % [facility] Monocyte Abs 0.6 0.3 - 0.9 x10(3)/ L [facility] Eos % 0.8 % [facility] Eosinophils Abs 0.1 0.0 - 0.4 x10(3)/ L [facility] Basophil % 0.6 % [facility] Baso Absolute 0.1 0.0 - 0.1 x10(3)/mc L [facility] Immature Gran % 1.50 % [facility] Comment: Immature granulocytes(IG's)percentage and absolute count will include metamyelocytes, myelocytes, and promyelocytes. Blood smears from CBCs yielding IG's will be scanned manually for concordance. If this scan disagrees with the automated IG or if promyelocytes are noted, a manual differential will be performed. Immature Gran Absolute 0.16(H) 0.00 - 0.04 x10(3)/mc L [facility] Blood specimen (specimen) 09/30/2019 4:03 PM EDT 09/30/2019 4:09 PM EDT Narrative Resulting Agency Comment Spec In Lab Jose Alvarez MD HEMATOLOGY ORDERABLE S [facility] [address] * (ABNORMAL) Hemogram (09/30/2019 4:03 PM EDT) White Blood Cell 10.8(H) 4.0 - 9.5 x10(3)/mc L [facility] Red Blood Cell 6.48(H) 4.58 - 5.54 x10(6)/mc L [facility] Hemoglobin 13.4(L) 13.7 - 16.5 gm/dL [facility] Hematocrit 44.0 40.5 - 48.5 % [facility] Mean Cell Volume 67.9(L) 82.9 - 93.1 fL [facility] Mean Cell Hemoglobin 20.7(L) 27.5 - 32.1 pg [facility] Mean Cell Hemoglobin Concentration 30.5(L) 32.0 - 35.7 gm/dL [facility] Platelet 321 145 - 357 x10(3)/mc L [facility] RDW Standard Deviation 37.6 36.0 - 45.0 [facility] RDW coefficient of variation 17.3(H) 11.4 - 13.8 % [facility] Mean Platelet Volume 9.4 7.6 - 12.9 [facility] NRBC% auto 0.0 % [facility] NRBC Absolute 0.000 0.000 - 0.000 x10(3)/ L [facility] Blood specimen (specimen) 09/30/2019 4:03 PM EDT 09/30/2019 4:09 PM EDT Narrative Resulting Agency Comment Spec In Lab Jose Alvarez MD HEMATOLOGY ORDERABLE S [facility] [address] * (ABNORMAL) Comprehensive metabolic panel (non-fasting) (09/30/2019 4:03 PM EDT) Glucose 111 65 - 199 mg/dL [facility] Comment:Diabetes: >=200 mg/d L plus symptoms Blood Urea Nitrogen 13 10 - 20 mg/dL [facility] Creatinine 0.79(L) 0.80 - 1.50 mg/dL [facility] Sodium 135 135 - 145 mmol/L [facility] Potassium 3.9 3.5 - 5.0 mmol/L [facility] [...] mmol/L [facility] Anion Gap 10 5 - 15 mmol/L [facility] Calcium 9.0 8.5 - 10.5 mg/dL [facility] Protein, Total 7.8 6.1 - 8.0 gm/dL [facility] Albumin 3.9 3.2 - 5.2 gm/dL [facility] Aspartate Aminotransferase 23 0 - 39 unit/L [facility] Alanine Aminotransferase 11 0 - 55 unit/L [facility] Alkaline Phosphatase 87 40 - 130 unit/L [facility] Bilirubin, Total 0.3 0.2 - 1.3 mg/dL [facility] Est Glomerular Filtration Rate 94 >=60 mL/min/1. 73 m?? [facility] Comment: The eGFR was calculated using the CKD-EPI equation. As with all creatinine based estimates of kidney function, eGFR values calculated with the CKD-EPI equation are not accurate in patients with acute kidney failure, extremes of body mass or the acutely ill. [email or web address] eGFR 109 >=60 mL/min/1. 73 m?? [facility] Comment: The eGFR was calculated using the CKD-EPI equation. As with all creatinine based estimates of kidney function, eGFR values calculated with the CKD-EPI equation are not accurate in patients with acute kidney failure, extremes of body mass or the acutely ill. [email or web address] Blood specimen (specimen) 09/30/2019 4:03 PM EDT 09/30/2019 4:09 PM EDT Narrative Resulting Agency Comment Spec In Lab Jose Alvarez MD CHEMISTRY ORDERABLES Performing Organization Address City/[facility] [place] Co de Phone Number [facility] [place] [address] * EKG 12 Lead (09/30/2019 3:58 PM EDT) Ventricular rate 70 BPM MUSE SYSTEM Atrial Rate 70 BPM MUSE SYSTEM P-R Interval 158 ms MUSE SYSTEM QRS Duration 92 ms MUSE SYSTEM Q-T Interval 394 ms MUSE SYSTEM QTC Calculated (Bezet) 425 ms MUSE SYSTEM Calculated P [place] 45 degrees MUSE SYSTEM Calculated R [place] 21 degrees MUSE SYSTEM Calculated T [place] 43 degrees MUSE SYSTEM INTERPRETATION Normal sinus rhythm Possible Left atrial enlargement Left ventricular hypertrophy Abnormal ECG No previous ECGs available Confirmed by MD ROOSEVELT, ANANTH ([id number]) on 10/01/2019 4:46:14 PM MUSE SYSTEM 09/30/2019 3:58 PM EDT 10/01/2019 4:46 PM EDT Jose Alvarez MD ECG ORDERABLES Performing Organization Address City/[facility]/ZIP Co de Phone Number MUSE SYSTEM documented in this encounter Visit Diagnoses Diagnosis Mediastinal mass Swelling, mass, or lump in chest Mediastinal mass Swelling, mass, or lump in chest Mediastinal mass Swelling, mass, or lump in chest documented in this encounter Care Teams Choreography Director Relationship Specialty Start Date End Date Christiana Moore APRN [address] [place] [address] PCP - General Family Medicine 09/26/19 documented as of this encounter
--- OUTSIDE RECORDS SUMMARY | 2023-11-12 02:17 | XMS_ITS | Encounter Summary ---
Author Organization [facility] [place] [address] Care Team Providers Care Museum Service Scheduler Name Role Phone Unavailable Primary Care Provider Unavailabl e Encounter Details Date Type Department Care Team (Late st Contact Info) Description 09/25/2019 12:05 AM EDT Ancillary Procedure [place] [id number] Christiana Moore APRN [address] [place] [address] Social History Tobacco Use Types Packs/Day Years [...] FILM LIBRARY STORAGE ONLY CT CHEST Routine 09/25/2019 12:05 AM EDT documented in this encounter Results * Film Library- Storage Only CT Chest (09/25/2019 12:05 AM EDT) Narrative [facility] - 09/26/2019 2:29 PM EDT This exam is auto-finalizing. It's purpose is for storage only. Christiana Moore APRN IMG FILM LIBRARY ORD ERABLES [place], [place] documented in this encounter Visit Diagnoses Not on filedocumented in this encounter
--- OUTSIDE RECORDS SUMMARY | 2023-11-12 02:18 | XMS_ITS | Encounter Summary ---
Author Organization [facility] Address [address] [place] [address] Care Team Providers Care Associate Partner Name Role Phone Unknown, Provider Primary Care Provider [phone] Encounter Details Date Type Department Care Team (Late st Contact Info) Description 09/25/2019 Lab Requisition [facility] Pathology & Laboratory Medicine - [facility] [address] [place] [address] Outr Resulting Lab, Provider Social History Tobacco Use Types Packs/Day Years Used Date Smoking Tobacco: Never Assessed Sex and Gender Information Value Date Recorded Sex Assigned at Not on file Gender Identity Male 10/25/2020 12:32 EDT Sexual Orientation Not on file documented as of this encounter Plan of Treatment Not on file documented as of this encounter Procedures Procedure Name Priority Date/Time Associated Diagnosis Comments PSA TOTAL, DIAGNOSTIC Routine 09/24/2019 14:40 EDT documented in this encounter Results * PSA TOTAL, DIAGNOSTIC (09/24/2019 14:40 EDT) PSA 1.6 0.0 - 4.5 ng/mL 09/26/2019 10:40 EDT [facility] Blood VENOUS BLOOD / Unknown 09/24/2019 14:40 EDT 09/25/2019 15:54 EDT Narrative [facility] - 09/26/2019 10:40 EDT NOTE: Serum PSA concentration should not be interpreted as absolute evidence for the presence or absence of malignant disease. Assayed on Siemens [employer] Eldarionaur XPT using chemiluminescent technology.??Values obtained by using different assay methods cannot be used interchangeably. Provider Outr Resulting Lab CHEMISTRY & BLOOD GAS ORDERABLES [facility] [address] [place] [address] documented in this encounter Visit Diagnoses Not on filedocumented in this encounter Care Teams Associate Partner Relationship Specialty Start Date End Date Unknown, Provider, PCP - General 10/22/20 documented as of this encounter
--- OUTSIDE RECORDS SUMMARY | 2023-11-12 02:18 | XMS_ITS | Encounter Summary ---
Author Organization [facility] Address [address] [place] [address] Care Team Providers Care High [employer] History Teacher Name Role Phone Unknown, Provider Primary Care Provider Encounter Details Date Type Department Care Team (Late st Contact Info) Description 10/25/2020 12:30 EDT Phlebotomy Only [facility] 2 Phlebotomy [address] [place] [address] Non Acoustic Operator, Acc Phlebotomy Primary osteoarthritis involving multiple joints; Polyarthralgia Social History Tobacco Use Types Packs/Day Years Used Date Smoking Tobacco: Never Smokeless Tobacco: Never Interpersonal Safety Answer Date Record ed Physically Hurt Never 03/02/2020 Verbally Threaten Not on file 03/02/2020 Sex and Gender Information Value Date Recorded Sex Assigned at Not on file Gender Identity Male 10/25/2020 12:32 EDT Sexual Orientation Not on file COVID-19 Exposure Response Date Recorded In the last month, have you been in contact with someone who was confirmed or suspected to have Coronavirus / COVID-19? No / Unsure 10/25/2020 12:36 EDT documented as of this encounter Functional Status Functional Status Response Date of [...] concentrating, remembering, or making decisions? No 10/25/2020 documented as of this encounter Plan of Treatment Not on file documented as of this encounter Procedures Procedure Name Priority Date/Time Associated Diagnosis Comments CCP ANTIBODIES Routine 10/25/2020 12:56 EDT Primary osteoarthritis involving multiple joints Polyarthralgia LYME AB Routine 10/25/2020 12:56 EDT Polyarthralgia documented in this encounter Results * LYME AB (10/25/2020 12:56 EDT) Lyme Ab Negative Negative 10/25/2020 14:49 EDT [facility] Blood VENOUS BLOOD / Unknown Venipuncture / Unknown 10/25/2020 12:56 EDT 10/25/2020 13:19 EDT Narrative Authorizing Provider Result Armando Zhou MD IMMUNOLOGY AND SEROL OGY ORDERABLES Performing Organization Address City/[facility] Co de Phone Number [facility] [address] [place] [address] * CCP ANTIBODIES (10/25/2020 12:56 EDT) CCP Antibodies <2.5 <5.0 U/mL 10/25/2020 14:45 EDT [facility] Blood VENOUS BLOOD / Unknown Venipuncture / Unknown 10/25/2020 12:56 EDT 10/25/2020 13:19 EDT Narrative Authorizing Provider Result Armando Zhou MD IMMUNOLOGY AND SEROL OGY ORDERABLES Performing Organization Address City/[facility]/ZIP Co de Phone Number [facility] [address] [place] [address] documented in this encounter Visit Diagnoses Diagnosis Primary osteoarthritis involving multiple joints Polyarthralgia Pain in joint, multiple sites documented in this encounter Care Teams High School History Teacher Relationship Specialty Start Date End Date Unknown, Provider, PCP - General 10/22/20 documented as of this encounter
--- OUTSIDE RECORDS SUMMARY | 2023-11-12 02:18 | XMS_ITS | Encounter Summary ---
Author Organization [facility] Address [address] [place] [id number] Care Team Providers Care Greens Tier Name Role Phone Unknown, Provider Primary Care Provider Reason for Referral * Radiology Services (Routine) - Closed Specialty Diagnoses / Procedures Referred By Contac t Referred To Contact Diagnoses Primary osteoarthritis involving multiple joints Procedures XR HAND LEFT 3 OR MORE VIEWS Guillermo Zhou Chi, MD [address] [place] [phone] Referral ID Status Reason Start Date Expiration Date Visits Re quested Visits Authorized [id number] Closed 10/25/2020 1 1 * Radiology Services (Routine) - Closed Specialty Diagnoses / Procedures Referred By Contac t Referred To Contact Diagnoses Primary osteoarthritis involving multiple joints Procedures XR HAND RIGHT 3 OR MORE VIEWS Guillermo Zhou Chi, MD [address] [place] [phone] Referral ID Status Reason Start Date Expiration Date Visits Re quested Visits Authorized [id number] Closed 10/25/2020 1 1 Reason for Visit * Reason Comments New Patient Visit Joint Pain moves around - wrist , hands, elbows, knees, ankles * Referral (Routine) - Receiving Office to Obtain Authorization Specialty Diagnoses / Procedures Referred By Contac t Referred To Contact Rheumatology Diagnoses Arthralgia Christiana Moore, ZEYAD [address] [facility] [address] [place] [address] [place] [address] [address] [place] [id number] Referral ID Status Reason Start Date Expiration Date Visits Requested Visits Authorized [id number] Receiving Office to Obtain Authorization 1 1 Encounter Details Date Type Department Care Team (Latest Contact Info) Description 10/25/2020 10:15 EDT Office Visit [facility] Rheumatology & Immunology - Main [place] [address] [place] [address] Gato Norris MD [address] [place] [phone] Primary osteoarthritis involving multiple joints (Primary Dx); Polyarthralgia Social History Tobacco Use Types Packs/Day [...] 12:36 EDT documented as of this encounter Last Filed [...] Body Mass Index 25.06 10/25/2020 1006 EDT documented in this encounter Functional Status Functional Status Response [...] No 10/25/2020 documented as of this encounter Patient Instructions * Patient Instructions* Gato Norris MD - 10/25/2020 10:15 EDT OSTEOARTHRITIS (OA) - Patient Fact Sheet CONDITION DESCRIPTION Osteoarthritis (OA) is a common joint disease. It's often called wear and tear arthritis. In OA, cartilage that cushions joints as they move breaks down. Bones can rub against each other, causing pain. Bones may change shape as OA worsens. It can be painful and difficult to move the joint. Common joints affected by OA include knees, hips, back, neck, hands, toes and fingers. OA may damage not just cartilage, but the synovium (joint lining), ligaments and bones. Both women and men can get OA. It often occurs in middle age or later. OA is a leading cause of disability, but treatments like medications, exercise and joint replacement surgery can ease pain and restore mobility. SIGN/SYMPTOMS Joint pain is the most common sign of OA. Your joints may feel stiff and painful after a lot of activity, such as at the end of the day. Usually, OA does not cause morning joint stiffness. OA signs and symptoms may also include: ??? Joints that crack or grind ??? Swollen knobs at affected joints ??? Difficulty moving the joint ??? Loss of function or disability over time Other diseases that cause joint pain may be mistaken for OA. It is important to get the correct diagnosis without unnecessary testing. A labor arbitrator hearing office can diagnose OA and prescribe a treatment plan that is best for you. COMMON TREATMENTS Diagnosing OA requires a physical exam and imaging scans like X-rays, MRI or ultrasound. Treatmentsaim to reduce pain and improve function. There is no proven treatment to reverse OA joint damage atthis time. The first medicine used to treat OA pain include acetaminophen (Tylenol) and nonsteroidal anti-inflammatory medicine (NSAIDs), like ibuprofen (Advil, Motrin) or naproxen sodium (Aleve). Topical medicine are rubbed on the skin over the sore joint. Injections of corticosteroid (cortisone shots) or hyaluronic acid into a joint may ease short-term pain and swelling. For stronger pain, prescription medicine, like duloxetine (Cymbalta), or narcotics may be needed. Losing weight eases stress on joints like the knees, lower back and hips. Regular exercise can build muscle strength, ease joint pain and stiffness, and lower disability risk. If medicine don't relieve pain and improve function, people with severe OA may need surgery to repair or replace damaged joints. CARE/MANAGEMENT TIPS People with OA can do a lot to manage OA symptoms and have a good quality of life. Some helpful tips include: ??? Adjust how you sit or sleep to support your neck and back. ??? Use a raised chair or toilet seat. ??? Avoid repeat joint motions, especially frequent bending. ??? Lose weight if you are overweight or obese. This can reduce pain and slow the worsening of OA. ??? Exercise daily. Stretching, walking and water aerobics are good activities for OA. ??? Use devices like canes or grabbers to help you do daily tasks. You can also work with a physical therapist (PT) or occupational therapist (OT) to learn safe exercises or movements, and to properly use assistive devices for your OA. ?? 2019 [employer] documented in this encounter Progress Notes * Gato Norris MD - 10/25/2020 1015 EDT [facility] Rheumatology and Clinical Immunology Initial Patient Visit Chief Complaint: Tree Lantigua presents today for New Patient Visit and Joint Pain (moves around -wrist, hands, elbows, knees, ankles) . Patient ID: Tree Lantigua Date of Service: 10/25/2020 Patient age: 65 y.o. Patient gender: male Subjective / HPI: Tree Lantigua is an 65-year-old Male with a Pmhx significant for thymoma s/p recent resection. Patient presented to [facility] rheumatology clinic for a new patient assessment regarding migrating arthralgias of his wrists, elbows, shoulder, knees, hips and fingers. Patient concerned that he may have contracted Lyme disease. Per referral, patient had a negative titer in the past (unclear when, patientstates this was 1.5 years ago, lab data not in chart). Today, patient reports of joint pain that has been ongoing for about 2-3 years and is intermittent in nature. He states that his joint pain moves around (predominantly in his wrists, hands, shoulders, ankles and elbows). Cold/rainy weather worsens the pain. Tylenol/NSAIDs seem to helps with the pain. Denies of any injuries to his joints. Joint pain typically lasts for about 1-2 days. Denies of any swelling/erythema/ulcerations/skin lesions. He will then have maybe 1-2 good days where he is joint pain free and then the pain comes back. Joint pain typically does not bother him in the morning,and usually occurs later on in the day. Has mild morning stiffness localized predominantly in his lower back that slowly resolves with movement. Denies of any fatigue, depression or mood changes. Hasno difficult falling asleep, but sleep is interrupted where he wakes up in the middle of the night (2-3 times throughout the night). Does not feel well rested in the morning and reports slight fatigue throughout the day. Denies hx of snoring or waking up feeling SOB. Denies of any muscle aches or tr igger points. More specifically, joints that bother him the most are his hands, wrists and knees. Denies numbness/tingling sensation of his hands. Joint pain is typically localized around the MCP, PIP and DIP b/l.Wrist stiffness and pain typically upon flexion and extension. Does not have a sensation of knee buckling, only stiffness and pain w/out associated erythema/warmth/lesions. He also reports of a trigger finger, 3rd digit of his R. Hand. Occurs a couple of times a year and associated with swelling. He reports hx of tick bites quite frequently when working in the garden. He has never noticed a tick stuck to his skin for several hours. Denies hx of erythema migrans rashes. No hx of carditis, heart block or hx of facial palsy. Today, his only complain is of lower back stiffness that he attributes to his long commute to the clinic (1.5 [address] ride). Denies urinary/stool incontinence or saddle anesthesia. Patient is retired but is very active around his home (stacking wood, cutting grass, and gardening). When he over works himself and pays for it the next day. Review of Systems: Symptom Yes No Symptom Yes No Fever X Morning stiffness X Fatigue X Numbness/ tingling X Night sweats X Headaches X Weight change X (loss 12 lbs when dx with thymoma and states he gained the weight back) Muscle weakness X Eye discomfort X Dysuria X Dry Eyes X Urinary frequency X Mouth/nose sores X Hematuria X Jaw Claudication X Trouble sleeping X Dental Caries X Anxiety X Chest pain X Depression X Palpitations X Change in mood X Dyspnea X Skin rash/changes X Cough X Sun induced rash X Nausea/ vomiting X Raynaud's X Abdominal pain X Itching X Blood in stools X Hair loss X Diarrhea X Other: Constipation X Joint pain X Muscle pain X Family History: - Denies family history of inflammatory arthritis or autoimmune conditions (e.g.: rheumatoid arthritis, psoriasis, IBD or Ankylosing Spondylitis). - Mother: 91 yoa, relatively healthy - Father: 94 yoa, relatively healthy - Brothers: Younger brother has Crohn's disease Social History: - Occupation: Retired, previously [employer] - . - No significant psychosocial stressors. - No functional or impairment concerns. Independent in ADL.The patient's home environment is safe. - Diet: Balanced - Exercise: Goes for long walks - Nonsmoker. 1 beer or glass of wine (~1 x / week). No recreational drug use. Current Outpatient Medications Medication ??? ibuprofen (MOTRIN) 200 mg tablet No current facility-administered medications for this visit. Allergies Allergen Reactions ??? Wasp Venom PMH PSH No past medical history on file. No past surgical history on file. Social History Family history Social History Tobacco Use ??? Smoking status: Never Smoker ??? Smokeless tobacco: Never Used Substance Use Topics ??? Alcohol use: Not on file No family history on file. Objective: BP (!) 142/86 (BP Cuff Location: Left arm, BP Patient Position: Sitting, BP Cuff Sizes: Adult, long) Pulse 99 Ht 179.5 cm (70.67) Wt 80.7 kg (178 lb) BMI 25.06 kg/m?? Body mass index is 25.06 kg/m??. General: No acute distress. Alert, fully oriented. HEENT: Conjunctivae/corneas clear. Pupils equal, Sclerae anicteric. Mucus membranes moist; oropharynx clear. Neck symmetrical, trachea midline Lungs: Normal expansion. Clear to auscultation bilaterally with no crackles, crepitations or wheeze. Heart: Regular rate and rhythm, I + II present with no murmur Abdomen: Soft, non-tender, non-distended. No organomegaly. Bowel sounds present. Extremities: Extremities without cyanosis or edema. Skin: No rashes or lesions Musculoskeletal: Hand: No synovitis, muscle wasting or deformity.Mild limitation in creating a clawwith his hands b/l 2/2 to hand stiffness. Joint hypertrophy noted on his PIP and DIP b/l Elbow: No tenderness on palpation of medial or lateral epicondyle. Normal range of motion. No nodules. Shoulder: No asymmetry, muscle wasting, scars or deformity. No synovitis or swelling. Normal range of motion in shoulders bilaterally. Mensah test negative bilaterally. Empty can tests negative. Crepitus noted b/l Hip: No tenderness on palpation over anterior superior iliac crest, greater trochanter. No pain with log roll. ROM normal. MANNIE maneuver negative. Knee: No asymmetry, muscle wasting, scars or deformities. No joint effusions or swellings. No tenderness on palpation of femoral epicondyle or tibial tuberosity. Crepitus present b/l. Foot: No tenderness on palpation of the ankles or MTP joint bilaterally. Normal range of movement. Early progression of hammer toes noted in both feet. Onychauxis present b/l. Workup: Labs: RF - Negative (09/2019) Hep C AB - Negative (09/2019) WBC 11.6, Hgb 12.6, Plt 305 (03/2020) Na 136, K 3.6, Cl 101, Co2 27, BUN 17, Neuro Intensivist Physician 1.27, Gluc 106 (03/2020) Imaging: - Previous CT reports (CT chest w/ contrast 10/27 + 11/26) does not show any significant osseous changes or significant findings per radiology report. Assessment & Plan: Tree Lantigua is an 65-year-old Male with a Pmhx significant for thymoma s/p recent resection. Patient presented to [facility] rheumatology clinic for a new patient assessment regarding migrating arthralgias of his wrists, elbows, shoulder, knees, hips and fingers. Patient concerned that he may have contracted Lyme disease. Per referral, patient had a negative titer in the past (unclear when, patientstates this was 1.5 years ago, lab data not in chart). Patient's clinical presentation today is suggestive of primary osteoarthritis. #Primary osteoarthritis - Patient has had a thymoma in the past now s/p recent resection, and thymomas can be associated with autoimmune disease. However, there was no significant evidence suggestive of inflammatory arthritis at today's visit given patients hx, previous lab work and physical exam - We will obtain X-rays of his hands b/l at today's visit - We will obtain blood work (Anti-CCP and Lyme AB) at today's visit as well - Recommended exercises / stretches and NSAIDs prn - Follow-up will be on an as needed basis - Patient was informed that he should call for a f/u if his symptoms worsen or if he develops any significant erythema/swelling/heat around his joints #Trigger Finger - Patient reports hx of trigger finger with his R. Middle finger locking for ~ 24 hours and resolves on his own. Symptoms occur 1-2 times a year - No tendon nodules noted on physical exam - Patient will monitor symptoms, if they progress, patient may schedule an appointment for possiblecorticosteroid injection Patient Instructions OSTEOARTHRITIS (OA) - Patient Fact Sheet CONDITION DESCRIPTION Osteoarthritis (OA) is a common joint disease. It's often called wear and tear arthritis. In OA, cartilage that cushions joints as they move breaks down. Bones can rub against each other, causing pain. Bones may change shape as OA worsens. It can be painful and difficult to move the joint. Common joints affected by OA include knees, hips, back, neck, hands, toes and fingers. OA may damage not just cartilage, but the synovium (joint lining), ligaments and bones. Both women and men can get OA. It often occurs in middle age or later. OA is a leading cause of disability, but treatments like medications, exercise and joint replacement surgery can ease pain and restore mobility. SIGN/SYMPTOMS Joint pain is the most common sign of OA. Your joints may feel stiff and painful after a lot of activity, such as at the end of the day. Usually, OA does not cause morning joint stiffness. OA signs and symptoms may also include: ??? Joints that crack or grind ??? Swollen knobs at affected joints ??? Difficulty moving the joint ??? Loss of function or disability over time Other diseases that cause joint pain may be mistaken for OA. It is important to get the correct diagnosis without unnecessary testing. A labor arbitrator hearing office can diagnose OA and prescribe a treatment plan that is best for you. COMMON TREATMENTS Diagnosing OA requires a physical exam and imaging scans like X-rays, MRI or ultrasound. Treatmentsaim to reduce pain and improve function. There is no proven treatment to reverse OA joint damage atthis time. The first medicine used to treat OA pain include acetaminophen (Tylenol) and nonsteroidal anti-inflammatory medicine (NSAIDs), like ibuprofen (Advil, Motrin) or naproxen sodium (Aleve). Topical medicine are rubbed on the skin over the sore joint. Injections of corticosteroid (cortisone shots) or hyaluronic acid into a joint may ease short-term pain and swelling. For stronger pain, prescription medicine, like duloxetine (Cymbalta), or narcotics may be needed. Losing weight eases stress on joints like the knees, lower back and hips. Regular exercise can build muscle strength, ease joint pain and stiffness, and lower disability risk. If medicine don't relieve pain and improve function, people with severe OA may need surgery to repair or replace damaged joints. CARE/MANAGEMENT TIPS People with OA can do a lot to manage OA symptoms and have a good quality of life. Some helpful tips include: ??? Adjust how you sit or sleep to support your neck and back. ??? Use a raised chair or toilet seat. ??? Avoid repeat joint motions, especially frequent bending. ??? Lose weight if you are overweight or obese. This can reduce pain and slow the worsening of OA. ??? Exercise daily. Stretching, walking and water aerobics are good activities for OA. ??? Use devices like canes or grabbers to help you do daily tasks. You can also work with a physical therapist (PT) or occupational therapist (OT) to learn safe exercises or movements, and to properly use assistive devices for your OA. ?? 2019 [employer] Tree was seen today for new patient visit and joint pain. Diagnoses and all orders for this visit: Primary osteoarthritis involving multiple joints - Cancel: XR HAND LEFT 3 OR MORE VIEWS; Future - XR HAND RIGHT 3 OR MORE VIEWS; Future - CCP ANTIBODIES; Future - XR HAND LEFT 3 OR MORE VIEWS; Future Polyarthralgia - CCP ANTIBODIES; Future - LYME AB; Future Other orders - ibuprofen (MOTRIN) 200 mg tablet; Take 600 mg by mouth every 6 hours. Patient seen and examined with Dr. Guillermo Zhou Follow up as needed (PRN) I spent a total of 60 minutes on the date of this encounter meeting with the patient and reviewing documentation/coordinating care as described in the above note. Gato Norris MD, PGY4 [phone] 10/25/2020 10:11 Attestation statement: I interviewed and examined the patient with the fellow. I agree with the findings and plan of care documented in the fellow's note. Guillermo Zhou MD 10/25/2020 documented in this encounter Plan of Treatment Not on file documented as of this encounter Results * LYME AB (10/25/2020 12:56 EDT) Lyme Ab Negative Negative 10/25/2020 14:49 EDT [facility] Blood VENOUS BLOOD / Unknown Venipuncture / Unknown 10/25/2020 12:56 EDT 10/25/2020 13:19 EDT Guillermo Zhou MD IMMUNOLOGY AND SEROL OGY ORDERABLES Performing Organization Address City/[facility] Co de Phone Number [facility] [address] [place] [phone] * CCP ANTIBODIES (10/25/2020 12:56 EDT) CCP Antibodies <2.5 <5.0 U/mL 10/25/2020 14:45 EDT [facility] Blood VENOUS BLOOD / Unknown Venipuncture / Unknown 10/25/2020 12:56 EDT 10/25/2020 13:19 EDT Guillermo Zhou MD IMMUNOLOGY AND SEROL OGY ORDERABLES Performing Organization Address City/[facility] Co de Phone Number [facility] [address] [place] [address] * XR HAND RIGHT 3 OR MORE VIEWS (10/25/2020 12:10 EDT) Anatomical Region Laterality Modality Upper Extremities Right Computed Radio graphy 10/25/2020 13:5 7 EDT Impressions 10/25/2020 13:57 EDT FINDINGS / IMPRESSION: * ??Left hand 3 views: Diffuse IP joint degenerative changes. DRUJ, first CMC, and second MCP degenerative changes are also present. Questionable periarticular erosions involving the second, third, and fifth DIP joints. Correlate for rheumatologic markers. * ??Right hand 3 views: Diffuse MCP and IP joint degenerative changes. First CMC and triscaphe degenerative changes are also present. Narrative 10/25/2020 13:57 EDT EXAM/TECHNIQUE: XR HAND LEFT 3 OR MORE VIEWS, XR HAND RIGHT 3 OR MORE VIEWS ??10/25/2020 11:40 AM HISTORY: ??concern for DJD COMPARISON: None. Procedure Note Johnny Clemens MD - 10/25/2020 EXAM/TECHNIQUE: XR HAND LEFT 3 OR MORE VIEWS, XR HAND RIGHT 3 OR MOREVIEWS 10/25/2020 11:40 AM HISTORY: concern for DJD COMPARISON: None. IMPRESSION FINDINGS / IMPRESSION: * Left hand 3 views: Diffuse IP joint degenerative changes. DRUJ, firstCMC, and second MCP degenerative changes are also present. Questionableperiarticular erosions involving the second, third, and fifth DIP joints.Correlate for rheumatologic markers. * Right hand 3 views: Diffuse MCP and IP joint degenerative changes.First CMC and triscaphe degenerative changes are also present. Guillermo Zhou MD IMG DIAGNOSTIC IMAGI NG ORDERABLES * XR HAND LEFT 3 OR MORE VIEWS (10/25/2020 12:09 EDT) Anatomical Region Laterality Modality Upper Extremities Left Computed Radio graphy 10/25/2020 13:5 7 EDT Impressions 10/25/2020 13:57 EDT FINDINGS / IMPRESSION: * ??Left hand 3 views: Diffuse IP joint degenerative changes. DRUJ, first CMC, and second MCP degenerative changes are also present. Questionable periarticular erosions involving the second, third, and fifth DIP joints. Correlate for rheumatologic markers. * ??Right hand 3 views: Diffuse MCP and IP joint degenerative changes. First CMC and triscaphe degenerative changes are also present. Narrative 10/25/2020 13:57 EDT EXAM/TECHNIQUE: XR HAND LEFT 3 OR MORE VIEWS, XR HAND RIGHT 3 OR MORE VIEWS ??10/25/2020 11:40 AM HISTORY: ??concern for DJD COMPARISON: None. Procedure Note Johnny Clemens MD - 10/25/2020 EXAM/TECHNIQUE: XR HAND LEFT 3 OR MORE VIEWS, XR HAND RIGHT 3 OR MOREVIEWS 10/25/2020 11:40 AM HISTORY: concern for DJD COMPARISON: None. IMPRESSION FINDINGS / IMPRESSION: * Left hand 3 views: Diffuse IP joint degenerative changes. DRUJ, firstCMC, and second MCP degenerative changes are also present. Questionableperiarticular erosions involving the second, third, and fifth DIP joints.Correlate for rheumatologic markers. * Right hand 3 views: Diffuse MCP and IP joint degenerative changes.First CMC and triscaphe degenerative changes are also present. 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 Medication Sig Dispensed Refills Start Date End Date ibuprofen (MOTRIN) 200 mg tablet Take 600 mg by mouth every 6 hours. 11/14/2019 added in this encounter Care Teams Greens Tier Relationship Specialty Start Date End Date Unknown, Provider, PCP - General 10/22/20 documented as of this encounter
--- OUTSIDE RECORDS SUMMARY | 2023-11-12 02:18 | XMS_ITS | Encounter Summary ---
Author Organization [facility] Address [address] [place] [address] Care Team Providers Care Shop Hand Name Role Phone Unknown, Provider Primary Care Provider [phone] Encounter Details Date Type Department Care Team (Late st Contact Info) Description 11/27/2020 Lab Requisition [facility] Pathology & Laboratory Medicine - [facility] [address] [place] [address] Outr Resulting Lab, Provider Social History Tobacco [...] on file documented as of this encounter Functional Status [...] Associated Diagnosis Comments PSA TOTAL, DIAGNOSTIC Routine 11/26/2020 10:52 EDT documented in this encounter Results * PSA TOTAL, DIAGNOSTIC (11/26/2020 10:52 EDT) PSA 2.1 0.0 - 4.5 ng/mL 11/29/2020 14:08 EDT [facility] Blood VENOUS BLOOD / Unknown 11/26/2020 10:52 EDT 11/28/2020 16:16 EDT Narrative [facility] - 11/29/2020 14:08 EDT NOTE: Serum PSA concentration should not be interpreted as absolute evidence for the presence or absence of malignant disease. Assayed on Tiltaur XPT using chemiluminescent technology.??Values obtained by using different assay methods cannot be used interchangeably. Provider Outr Resulting Lab CHEMISTRY & BLOOD GAS ORDERABLES [facility] [address] [place] [address] documented in this encounter Visit Diagnoses Not on filedocumented in this encounter Care Teams Shop Hand Relationship Specialty Start Date End Date Unknown, Provider, PCP - General 10/22/20 documented as of this encounter
--- OUTSIDE RECORDS SUMMARY | 2023-11-12 02:18 | XMS_ITS | Encounter Summary ---
Author Organization [facility] Address [address] [place] [address] Care Team Providers Care Cage Clerk Name Role Phone Unknown, Provider Primary Care Provider [phone] Encounter Details Date Type Department Care Team (Latest Contact Info) Description 10/25/2020 Travel Social History Tobacco Use Types Packs/Day [...] on filedocumented in this encounter Care Teams Cage Clerk Relationship Specialty Start Date End Date Unknown, Provider, PCP - General 10/22/20 documented as of this encounter
--- OUTSIDE RECORDS SUMMARY | 2023-11-12 02:18 | XMS_ITS | Encounter Summary ---
Author Organization [facility] Address [address] [place] [address] Care Team Providers Care Aircraft Skin Burnisher Name Role Phone Unknown, Provider Primary Care Provider Reason for Referral * Radiology Services (Routine) - Closed Specialty Diagnoses / Procedures Referred By Contac t Referred To Contact Diagnoses Primary osteoarthritis involving multiple joints Procedures XR HAND LEFT 3 OR MORE VIEWS Guillermo Zhou Chi, MD [address] [place] [phone] Referral ID Status Reason Start Date Expiration Date Visits Re quested Visits Authorized [id number] Closed 10/25/2020 1 1 * Radiology Services (Routine) - Order Cancelled Specialty Diagnoses / Procedures Referred By Contac t Referred To Contact Diagnoses Primary osteoarthritis involving multiple joints Procedures XR HAND LEFT 3 OR MORE VIEWS Guillermo Zhou Chi, MD [address] [place] [phone] Referral ID Status Reason Start Date Expiration Date V isits Requested Visits Authorized [id number] Order Cancelled 10/25/2020 1 1 Reason for Visit * Radiology Services (Routine) - Order Cancelled Specialty Diagnoses / Procedures Referred By Contac t Referred To Contact Diagnoses Primary osteoarthritis involving multiple joints Procedures XR HAND LEFT 3 OR MORE VIEWS Guillermo Zhou Chi, MD [address] [place] [phone] Referral ID Status Reason Start Date Expiration Date V isits Requested Visits Authorized [id number] Order Cancelled 10/25/2020 1 1 Encounter Details Date Type Department Care Team (Latest Contact Info) Description 10/25/2020 11:39 EDT - 10/25/2020 23:59 EDT [facility] Radiology Xray Outpatient - [address] [address] Primary osteoarthritis involving multiple joints Discharge Disposition: Home or Self Care Social History Tobacco Use Types Packs/Day Years [...] No 10/25/2020 documented as of this encounter Medications at Time of Discharge Medication Sig Dispensed Refills Start Date End Date ibuprofen (MOTRIN) 200 mg tablet Take 600 mg by mouth every 6 hours. 11/14/2019 documented as of this encounter Discharge Disposition Disposition Code Departure Means Destination Home or Self Care documented in this encounter Plan of Treatment Scheduled Orders Name Type Priority Associated Diagnoses Orde r Schedule XR HAND LEFT 3 OR MORE VIEWS Imaging Routine Primary osteoarthritis involving multiple joints 1 Occurrences starting 10/25/2020 until 10/25/2020 documented as of this encounter Procedures Procedure Name Priority Date/Time Associated Diagnosis Comments XR HAND LEFT 3 OR MORE VIEWS Routine 10/25/2020 12:09 EDT Primary osteoarthritis involving multiple joints documented in this encounter Results * XR HAND LEFT 3 OR MORE [...] Diagnoses Diagnosis Primary osteoarthritis involving multiple joints documented in this encounter Care Teams Aircraft Skin Burnisher Relationship Specialty Start Date End Date Unknown, Provider, PCP - General 10/22/20 documented as of this encounter
--- OUTSIDE RECORDS SUMMARY | 2023-11-12 02:18 | XMS_ITS | Encounter Summary ---
Author Organization [facility] Address [address] [place] [address] Care Team Providers Care Eyelet Riveter Name Role Phone Unknown, Provider Primary Care Provider [phone] Reason for Visit * Reason Onset Date Comments Other 11/11/2020 Encounter Details Date Type Department Care Team (Late st Contact Info) Description 11/11/2020 Telephone [facility] Rheumatology & Immunology - [address] [address] Gato Norris MD [address] [place] [phone] Other Social History Tobacco Use Types Packs/Day [...] No 10/25/2020 documented as of this encounter Miscellaneous Notes * Telephone Encounter - Maryanne Xiong RN - 11/11/2020 1211 EDT Spoke with Maria Antonia and advised her of what CPPD stands for. She will notify the provider. * Telephone Encounter - Courtney Erwin - 11/11/2020 1126 EDT Caller would like to know what CPPD stands for. Please call. documented in this encounter Plan of Treatment Not on file documented as of this encounter Visit Diagnoses Not on filedocumented in this encounter Care Teams Eyelet Riveter Relationship Specialty Start Date End Date Unknown, Provider, PCP - General 10/22/20 documented as of this encounter
--- OUTSIDE RECORDS SUMMARY | 2023-11-12 02:18 | XMS_ITS | Encounter Summary ---
Author Organization [facility] Address [address] [place] [address] Care Team Providers Care Telecommunications Line Mechanic Name Role Phone Unknown, Provider Primary Care Provider [phone] Encounter Details Date Type Department Care Team (Late st Contact Info) Description 09/25/2019 Lab Requisition [facility] Pathology & Laboratory Medicine - [facility] [address] [place] [address] Outr Resulting Lab, Provider Social History Tobacco [...] RNA BY PCR Routine 09/24/2019 14:40 EDT documented in this encounter Results * HEPATITIS C AB W REFLEX TO HCV RNA BY PCR (09/24/2019 14:40 EDT) Hep C Antibody Negative Negative 09/26/2019 11:28 EDT [facility] Blood VENOUS BLOOD / Unknown 09/24/2019 14:40 EDT 09/25/2019 15:54 EDT Provider Outr Resulting Lab CHEMISTRY & BLOOD GAS ORDERABLES [facility] [address] [place] [address] documented in this encounter Visit Diagnoses Not on filedocumented in this encounter Care Teams Telecommunications Line Mechanic Relationship Specialty Start Date End Date Unknown, Provider, PCP - General 10/22/20 documented as of this encounter
--- OUTSIDE RECORDS SUMMARY | 2023-11-12 02:18 | XMS_ITS | Encounter Summary ---
Author Organization [facility] Address [address] [place] [address] Care Team Providers Care Chairman Emeritus Name Role Phone Unknown, Provider Primary Care Provider [phone] Encounter Details Date Type Department Care Team (Late st Contact Info) Description 01/17/2023 Lab Requisition [facility] Pathology & Laboratory Medicine - [facility] [address] [place] [address] Outr Resulting Lab, Provider Social History Tobacco [...] Associated Diagnosis Comments PSA TOTAL, DIAGNOSTIC Routine 01/17/2023 11:00 EDT documented in this encounter Results * PSA TOTAL, DIAGNOSTIC (01/17/2023 11:00 EDT) PSA 2.8 <=4.5 ng/mL 01/17/2023 22:53 EDT [facility] Blood VENOUS BLOOD / Unknown 01/17/2023 11:00 EDT 01/17/2023 21:56 EDT Narrative [facility] - 01/17/2023 22:53 EDT NOTE: Serum PSA concentration should not be interpreted as absolute evidence for the presence or absence of malignant disease. Assayed on [employer] XPT using chemiluminescent technology.??Values obtained by using different assay methods cannot be used interchangeably. Provider Outr Resulting Lab CHEMISTRY & BLOOD GAS ORDERABLES [facility] [address] [place] [address] documented in this encounter Visit Diagnoses Not on filedocumented in this encounter Care Teams Chairman Emeritus Relationship Specialty Start Date End Date Unknown, Provider, PCP - General 10/22/20 documented as of this encounter
--- OUTSIDE RECORDS SUMMARY | 2023-11-12 02:18 | XMS_ITS | Encounter Summary ---
Author Organization [facility] Address [address] [place] [address] Care Team Providers Care Phytopathologist Name Role Phone Unknown, Provider Primary Care Provider Reason for Referral * Radiology Services (Routine) - Closed Specialty Diagnoses / Procedures Referred By Ankit hong Referred To Contact Diagnoses Primary osteoarthritis involving multiple joints Procedures XR HAND RIGHT 3 OR MORE VIEWS Guillermo Zhou Chi, MD [address] [place] [phone] Referral ID Status Reason Start Date Expiration Date Visits Re quested Visits Authorized [id number] Closed 10/25/2020 1 1 Reason for Visit * Radiology Services (Routine) - Closed Specialty Diagnoses / Procedures Referred By Ankit hong Referred To Contact Diagnoses Primary osteoarthritis involving multiple joints Procedures XR HAND RIGHT 3 OR MORE VIEWS Guillermo Zhou Chi, MD [address] [place] [phone] Referral ID Status Reason Start Date Expiration Date Visits Re quested Visits Authorized [id number] Closed 10/25/2020 1 1 Encounter Details Date Type Department Care Team (Latest Contact Info) Description 10/25/2020 11:39 EDT - 10/25/2020 23:59 EDT Hospital [facility]counter [facility] Radiology Xray Outpatient - [address] [address] Primary osteoarthritis involving multiple joints Discharge Disposition: [...] Priority Date/Time Associated Diagnosis Comments XR HAND RIGHT 3 OR MORE VIEWS Routine 10/25/2020 12:10 EDT Primary osteoarthritis involving multiple joints documented in this encounter Results * XR HAND RIGHT 3 OR MORE [...] ??concern for DJD COMPARISON: None. Procedure Note Johnyn Clemens MD - 10/25/2020 EXAM/TECHNIQUE: XR HAND [...] joints documented in this encounter Care Teams Phytopathologist Relationship Specialty Start Date End Date Unknown, Provider, PCP - General 10/22/20 documented as of this encounter
--- OUTSIDE RECORDS SUMMARY | 2023-11-12 02:18 | XMS_ITS | Encounter Summary ---
Author Organization [facility] Address [address] [place] [address] Care Team Providers Care Fpga Design Engineer Name Role Phone Unknown, Provider Primary Care Provider Encounter Details Date Type Department Care Team (Late st Contact Info) Description 01/25/2021 Lab Requisition [facility] Pathology & Laboratory Medicine - [facility] [address] [place] [address] Jun Gong MD [address] [place] [address] [address] [place], [place] [id number] Encounter for screening for malignant neoplasm of colon Social History Tobacco Use Types Packs/Day Years [...] Procedure Name Priority Date/Time Associated Diagnosis Comments SURGICAL PATHOLOGY Today 01/24/2021 11 :48 EDT Encounter for screening for malignant neoplasm of colon documented in this encounter Results * SURGICAL PATHOLOGY (01/24/2021 11:48 EDT) Note to Patient The following pathology results have been interpreted by your pathologist and may be available to you before your health provider has had the opportunity to review them. Please allow time for your provider to receive these results and explore management options, if applicable. 01/28/2021 11:53 [facility] Final Diagnosis A. COLON, CECUM, BIOPSY: - Fragments of tubular adenoma(s) B. COLON, ASCENDING, BIOPSY: - Fragments of tubular adenoma(s) C. COLON, TRANSVERSE, BIOPSY: - Fragments of tubular adenoma(s) D. COLON, SIGMOID, BIOPSY: - Villous adenoma 01/28/2021 11:53 [facility] Attestation By the signature below, the attending physician certifies that they have 1) personally conducted a gross and/or microscopic examination of the described specimen(s), and/or personally interpreted the results of laboratory testing of the described specimen(s), and 2) personally rendered or confirmed the above diagnosis. 01/28/2021 11:53 [facility] at 1153 Clinical History Colon cancer screening 01/28/2021 11:53 [facility] Gross Description A. Received in formalin labelled with proper patient identification (initials M, R) and cecal polyp x2 is an aggregate of bruce-brown tissue fragments (1.3 x 0.7 x 0.1 cm) and a brown-bruce polyp (0.7 x 0.5 x 0.5 cm). The polyp is trisected and entirely submitted in A1 and the remainder of the specimen is entirely submitted in A2. B. Received in formalin labelled with proper patient identification (initials M, R) and ascending colon polyps x3 are 4 bruce-brown tissues (0.3 x 0.2 x 0.1 cm to 0.5 x 0.4 x 0.3 cm). The largest tissue is bisected and entirely submitted in B1 and the remainder of the specimen is entirely submitted in B2. C. Received in formalin labelled with proper patient identification (initials M, R) and transverse colon polyp x5 are 13 bruce-brown tissues (0.2 x 0.1 x 0.1 cm to 0.5 x 0.3 x 0.2 cm). Entirely submitted in C1-C3. D. Received in formalin labelled with proper patient identification (initials M, R) and sigmoid polyp is a brown-red polyp (1.2 x 1.1 x 0.7 cm). Serially sectioned and entirely submitted in D1 and D2. SOCRATES BENOIT(ASCP) 01/25/2021 9:50 01/28/2021 11:53 EDT [facility] Performing Lab [facility] 01/28/2021 11:53 EDT [facility] Scanned Images 01/28/2021 11:53 EDT [facility] Tissue ENTIRE SIGMOID COLON / Unknown 01/24/2021 11:48 EDT 01/25/2021 8:50 EDT Tissue specimen (specimen) ASCENDING COLON STRUCTURE / Unknown 01/24/2021 11:48 EDT 01/25/2021 8:50 EDT Tissue specimen (specimen) TRANSVERSE COLON STRUCTURE / Unknown 01/24/2021 11:48 EDT 01/25/2021 8:50 EDT Tissue specimen (specimen) SIGMOID COLON STRUCTURE / Unknown 01/24/2021 11:48 EDT 01/25/2021 8:50 EDT Jun Gong MD PATHOLOGY ORDERA [facility] [address] [place] [phone] documented in this encounter Visit Diagnoses Diagnosis Encounter for screening for malignant neoplasm of colon Special screening for malignant neoplasms, colon documented in this encounter Care Teams Fpga Design Engineer Relationship Specialty Start Date End Date Unknown, Provider, PCP - General 10/22/20 documented as of this encounter
--- OUTSIDE RECORDS SUMMARY | 2023-11-12 02:18 | XMS_ITS | Encounter Summary ---
Author Organization [facility] Address [address] [place] [address] Care Team Providers Care Allergist/Pediatric Pulmonologist Name Role Phone Unknown, Provider Primary Care Provider [phone] Encounter Details Date Type Department Care Team (Late st Contact Info) Description 03/15/2023 Lab Requisition [facility] Pathology & Laboratory Medicine - [facility] [address] [place] [address] Carlos Adamson MD [address] [place] [phone] Disorder of the skin and subcutaneous tissue, unspecified Social History Tobacco Use Types Packs/Day Years [...] Date/Time Associated Diagnosis Comments SURGICAL PATHOLOGY Today 03/15/2023 7: 45 EST Disorder of the skin and subcutaneous tissue, unspecified documented in this encounter Results * SURGICAL PATHOLOGY (03/15/2023 7:45 EST) Note to Patient The following pathology results have been interpreted by your pathologist and may be available to you before your health provider has had the opportunity to review them. Please allow time for your provider to receive these results and explore management options, if applicable. 03/20/2023 11:05 [facility] Final Diagnosis A. 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 See comment. 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 Gram positive cocci are noted within the superficial crust but no bacteria are identified within the deep tissues. No fungal organisms are identified. There is no evidence of a neoplastic process. 03/20/2023 11:05 [facility] Attestation By the signature below, the attending physician certifies that they have 1) personally conducted a gross and/or microscopic examination of the described specimen(s), and/or personally interpreted the results of laboratory testing of the described specimen(s), and 2) personally rendered or confirmed the above diagnosis. 03/20/2023 11:05 [facility] at 1105 Microscopic Description Sections consist of an excision of skin to the superficial subcutis. The epidermis varies in thickness and rete architecture. Many of the follicular units are cystically dilated. The follicular lumina are distended by loose keratin and inflammation. There is formation of sinus tracts between the dilated follicles. There is a dense mixed inflammatory infiltrate composed lymphocytes, plasma cells, neutrophils, and histiocytes including groups of multinucleate giant cells. The dermis is expanded by fibrosis. No fungal organisms identified on sections prepared with PAS-diastase stain. A few Gram-positive cocci are noted within the superficial stratum corneum but no deep bacteria are identified. 03/20/2023 11:05 [facility] Clinical History Clinical diagnosis code: L98.9 03/20/2023 11:05 [facility] Gross Description A. Received in formalin labelled with proper patient identification (initials M, R) and RT sideburn is an unoriented elliptical excision of bean hair-bearing skin (2.3 x 1.3 cm and is excised to a depth of 0.4 cm). There are 2 irregular disrupted areas (0.5 x 0.2 cm and 0.4 x 0.3 cm). The cutaneous surface is focally scaly. The margins are inked blue. The specimen is serially sectioned and entirely submitted as A1-A2 6 central sections and A3 2 tips, reverse en face. Beti Friend 03/16/2023 10:44 03/20/2023 11:05 [facility] Performing Lab [facility] 03/20/2023 11:05 [facility] Scanned Images 03/20/2023 11:05 [facility] Tissue SPECIMEN FROM SKIN / Unknown 03/15/2023 7:45 EST 03/15/2023 23:26 EST Carlos Adamson MD PATHOLOGY ORDERABLES [facility] [address] [place] [address] documented in this encounter Visit Diagnoses Diagnosis Disorder of the skin and subcutaneous tissue, unspecified documented in this encounter Care Teams Allergist/Pediatric Pulmonologist Relationship Specialty Start Date End Date Unknown, Provider, PCP - General 10/22/20 documented as of this encounter
== END ==
PROVIDERS: PCP Nurse Practitioner Family; Visit Provider Nurse Practitioner Family
DX: M25.551 Pain in right hip (principal); M16.11 Unilateral primary osteoarthritis, right hip
CPT/HCPCS: 73502

== ENCOUNTER 2024-01-22 13:19 | Outpatient (REF) | payer MEDICARE, SELFPAY ==
--- OUTSIDE RECORDS SUMMARY | 2024-01-22 13:23 | XMS_ITS ---
Author Organization [facility] Address [address] [place] [address] Phone Care Team Providers Care Receiving Distribution Station Operator Name Role Phone Chris Kwan MD, Garrison [...] surgery Dr. 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 ulcer of back with unspecified severity] [...] change Last Documented On 4 10:16AM ; [facility] Education and counseling Adv ise patient to return to office at any time prior to next visit with new problem or any clinical change Last Documented On 4 2:05PM ; [facility] Medical Equipment - Implanted Devices Includes: Current and historical Devices No Medical Equipment Recorded Medications Includes: Current and historical Medications Past Medications on file Amoxicillin-Pot Clavulanate 875-125 MG Oral Tablet 05/25/2023 - 06/04/2023 Provider: Ramakrishna mancilla MD Diagnosis: twice a day Last Documented On 4 1:37PM By Celena Sandoval RN ; [facility] Medications Administered Includes: Administered Medications in patient's chart No Administered Medications Recorded Vital Signs Includes: Vital Signs from 01/21/2021 through 01/22/2024 Vital Name 06/28/2023 09:33A Blood Pressure Sitting L 124/86 BP Cuff Size Regular Pulse Rate-Sitting (bpm) 68 Height (in) 71 Weight (lb) 169 Body Mass Index 23.6 Body Surface Area 2 Oxygen Saturation (%) 97 Last Documented: On 06/28/2023 9:37AM ; [facility] Results Includes: Results from 01/21/2021 through 01/22/2024 [facility] Lab oratory Ordered by Ramakrishna hernandez MD on 05/14/2023 [address] [place], [address] Collected: 05/14/2023 Report ed: 05/14/2023 15:26 tel: Last Documented On 7:15AM ; [facility] Reviewed by Ramakrishna smith MD on 05/15/2023; All test results are final unless otherwise noted. COMMENT~COMMENT See Note None Last Documented On 05/14/2023 4:36PM ; [facility] Note: RUN DATE: 05/14/23 [facility] LAB *LIVE* PAGE 1 RUN TIME: 1526 Specimen Inquiry RUN USER: INTERFACE PATIENT: TIMOTHY LANTIGUA LOC: StanleyAYOCHANCE U #: [id number] AGE/SX: 68/M ROOM: [facility] RE05/06/23REG DR: Josi Smith MD : 53 BED: 1 DIS: STATUS: ADM IN TLOC: SPEC #: [id number] RECD: 05/09/23 STATUS: FIORELLA REMandi #: [id number] AR: 05/09/23-[address]: Josi Smith MD ENTERED: 05/10/23-1020 SP TYPE: SURG OTHR DR: No Primary or Family Physician Ramakrishna Bennett MD, Carlos C Jr MD Mishra, Avantika MDORDERED: 42327/2, 74021, SPEC TRACKING, ANATOMIC SPECIM, HE/2 COPIES TO: No Primary or Family Physician Josi Smith MD [address] [place], [place] [id number] Ramakrishna Bennett MD [address] [place], [place] [address] Jose Germain Jr, MD [address] [place] [address] [place] [address] [facility] [address] [place], [place] [id number] HISTOLOGY: TISSUE ID LEVEL PROCEDURE ____ APPENDIX A 2-1 HE COLON,SIGMOID B 12-1 PROCEDURES: 95171 (05/14/23-1521) 81179 (05/14/23) TISSUES: A. APPENDIX B. COLON,SIGMOID C. SOFT TISSUE - DONUTS CONTINUED ON NEXT PAGE RUN DATE: 05/14/23 [facility] Doc Hosp LAB *LIVE* PAGE 2 RUN TIME: 1526 Specimen Inquiry RUN USER: INTERFACE SPEC #: [id number] PATIENT: TIMOTHY LANTIGUA #[id number] (Continued) --- CLINICAL HISTORY BOWEL OBSTRUCTION FINAL [...] There is no gross evidence of tumor. Bronc Buster sections are submitted labeled A1 A2. B. [...] identified which appeared to be reactive grossly. Bronc Buster sections are submitted as follows. Section summary: [...] in cassette C1. Technical component performed at [facility] [id number] [place] [address] [address], [place] [address] Unless gross only, the diagnosis is based upon microscopic examination.Immunohistochemistry: This test was developed and its performance characteristics CONTINUED ON NEXT PAGE RUN DATE: 05/14/23 [facility] LAB *LIVE* PAGE 3 RUN TIME: 152 Specimen Inquiry RUN USER: INTERFACE SPEC #: [id number] PATIENT: TIMOTHY LANTIGUA #[id number] (Continued) --- JULIA (Continued) determined by this [...] by Ramakrishna hernandez MD on 05/14/2023 [address] [place], [address] Collected: 05/14/2023 Report ed: 05/14/2023 15:26 tel: Last Documented On 7:15AM ; [facility] Reviewed by Ramakrishna smith MD on 05/15/2023; All test results are final unless otherwise noted. Reported Physicians See Note None Last Documented On 05/14/2023 4:36PM ; [facility] Note: Reported Physicians:Ordering: Donald SergioAttending: Chyshkevych, IrynaReferring: Referred, SelfConsulting: AMARI GUSMANAdmitting: Chyshkevych, IrynaCopy To: Physician, NoCopy To: Donald SergioCopy To: Marcellus CarlosCkatherine To: Pratibha Waldrop CYTOLOGY (NON-TANK TENDER) [facility] Lab oratory Ordered by Ramakrishna hernandez MD on 05/11/2023 [address] [place], [address] Collected: 05/11/2023 Report ed: 05/11/2023 15:09 tel: Last Documented On 3:45PM ; [facility] Reviewed by Ramakrishna smith MD on 05/11/2023; All test results are final unless otherwise noted. COMMENT~COMMENT See Note None Last Documented On 05/11/2023 3:34PM ; [facility] Note: RUN DATE: 05/11/23 [facility] Real Doc Hosp LAB *LIVE* PAGE 1 RUN TIME: 1509 Specimen Inquiry RUN USER: INTERFACE PATIENT: TIMOTHY LANTIGUA LOC: SUZANNE U #: [id number] AGE/SX: 68/M ROOM: [facility] RE05/06/23REG DR: Josi Smith MD : 53 BED: 1 DIS: STATUS: ADM IN TLOC: SPEC #: [id number] RECD: 05/10/23-1251 STATUS: SOUT REQ #: [id number] RA: 05/09/23-[address]: Josi Smith MD ENTERED: 05/10/23-1252 SP TYPE: CYTO OTHR DR: No Primary or Family Physician Ramakrishna Bennett MD, Carlos C Jr MD Mishra, Avantika MDORDERED: [address]07[address], [address]1963, SPEC TRACKING, ANATOMIC SPECIM, HE COPIES TO: No Primary or Family Physician Josi Smith MD [address] [facility], [place] [address] Ramakrishna Bennett MD [address] [place], [place] [address] Jose Germain Jr, MD [address] [place] [address] [place] [address] [facility] [address] [place], [place] [address] HISTOLOGY: TISSUE ID LEVEL PROCEDURE ____ *PERITFL A 1-1 PROCEDURES: 90341 (05/11/23-1456) 18840 (05/11/23) TISSUES: A. PERITONEAL FLUID - 7.0CC OF DARK RED TURBID FLUID CONTINUED ON NEXT PAGE RUN DATE: 05/11/23 [facility] Doc Hosp LAB *LIVE* PAGE 2 RUN TIME: 1509 Specimen Inquiry RUN USER: INTERFACE SPEC #: [id number] PATIENT: ELMERTIMOTHY #[id number] (Continued) CLINICAL HISTORY BOWEL OBSTRUCTION FINAL DIAGNOSIS [...] block are prepared. Technical component performed at [facility] [id number] [place] [address] [address], [place] [address] Unless gross only, the diagnosis is based [...] 05/11/23 1509 END OF REPORT Reported Physicians [facility] Lab oratory Ordered by Ramakrishna hernandez MD on 05/11/2023 [address] [place], [address] Collected: 05/11/2023 Report ed: 05/11/2023 15:09 tel:[phone] Last Documented On 4 3:45PM ; [facility] Reviewed by Ramakrishna smith MD on 05/11/2023; All test results are final unless otherwise noted. Reported Physicians See Note None Last Documented On 05/11/2023 3:34PM ; [facility] Note: Reported Physicians:Ordering: Raymond BennettoAttending: Chyshkevmatthew, IrynaReferring: Referred, SelfConsulting: Physician, NoAdmitting: Chchristo, IrynaCopy To: Physician, NoCopy To: Donald SergioCopy To: Marcellus CarlosCkatherine To: Pratibha Waldrop SURGICAL [facility] Lab oratory Ordered by Ramakrishna hernandez MD on 05/10/2023 [address] [facility], [place], [address] Collected: 05/10/2023 Report ed: 05/10/2023 14:18 tel: Last Documented On 4 3:45PM ; [facility] Reviewed by Ramakrishna smith MD on 05/11/2023; All test results are final unless otherwise noted. Review Note Provider Name Date reviewed with patient Ramakrishna Bennett MD 05/2023 COMMENT~COMMENT See Note None Last Documented On 05/10/2023 3:23PM ; [facility] Note: RUN DATE: 05/10/23 [facility] PAGE 1 RUN TIME: 1418 Specimen Inquiry RUN USER: INTERFACE PATIENT: TIMOTHY LANTIGUA LOC: StanleyAYOCHANCE U #: [id number] AGE/SX: 68/M ROOM: [facility] RE05/06/23REG DR: Josi Smith MD : 53 BED: 1 DIS: STATUS: ADM IN TLOC: SPEC #: [id number] RECD: 05/08/23-1599 STATUS: FIORELLA REaMndi #: [id number] RA: 05/08/23-1522 [facility] DR: [place] Smith MD ENTERED: 05/09/23-1227 SP TYPE: SURG OTHR DR: No Primary or Family Physician Ramakrishna Bennett MD, Carlos C Jr MD Mishra, Avantika MDORDERED: [id number], SPEC TRACKING, ANATOMIC SPECIM, HE COPIES TO: No Primary or Family Physician Josi Smith MD [address] [place] [address] Ramakrishna Bennett MD [address] [place] [address] Jose Germain Jr, MD [address] [address] [place] [address] [address] [place] [address] HISTOLOGY: TISSUE ID LEVEL PROCEDURE ____ COLON A 1-1 PROCEDURES: 04194 (05/10/23-1107) TISSUES: A. COLON - BX CONTINUED ON NEXT PAGE RUN DATE: 05/10/23 [facility] Hosp LAB *LIVE* PAGE 2 RUN TIME: 1418 Specimen Inquiry RUN USER: INTERFACE SPEC #: [id number] PATIENT: TIMOTHY LANTIGUA #[id number] (Continued) --- CLINICAL HISTORY DIVERTICULITIS FINAL DIAGNOSIS [...] in 1 cassette. Technical component performed at [facility] [address], [place] [address] Unless gross only, the diagnosis is based [...] 1418 END OF REPORT Reported Physicians [facility] Lab oratory Ordered by Ramakrishna hernandez MD on 05/10/2023 [address] [place], [address] Collected: 05/10/2023 Report ed: 05/10/2023 14:18 tel: Last Documented On 3:45PM ; [facility] Reviewed by Ramakrishna smith [...] Procedures and Surgical History Includes: Procedures from 01/21/2021 through 01/22/2024 Procedures Code Diagnosis Performing Provider Service Location Service Date Body Mass Index, documented 3008F Body mass index [BMI] 23.0-23.9, adult Garrison Kwan MD [facility] 208 06/28/2023 Last Documented On 4 2:53PM ; [facility] Most recent systolic blood pressure <130 mmHg 3074F Body mass index [BMI] 23.0-23.9, adult Garrison Kwan MD [facility] 208 06/28/2023 Last Documented On 4 2:53PM ; [facility] Most recent diastolic blood pressure 80-89mmHg 3079F Body mass index [BMI] 23.0-23.9, adult Garrison Kwan MD [facility] 208 06/28/2023 Last Documented On 4 2:53PM ; [facility] Colectomy, Part W/coloproctostomy 94657 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 Bennett 05/09/23 ~Diagnostic laparoscopy converted to open low anterior resection, umbilical hernia repair 05/25/2023 Last Documented On 4 2:07PM ; [facility] Medical History Includes: Medical History [...] 06/28/2023 Last Documented On 4 10:09AM ; [facility] Paternal history of father was 95 06/28/2023 Last Documented On 4 10:09AM ; [facility] Maternal history of mother is alive 05/10 Last Documented On 4 2:07PM ; [facility] Review of Systems Review of Systems not supported for this document type No Review of Systems Recorded Mental Status Description Oriented to time, place, and person Functional Status No Functional Status Recorded Physical Exam Physical Exam not supported for this document type No Physical Exam Recorded Allergies Includes: Active, inactive, and resolved Allergies No Known Allergies Encounters Includes: Encounters from 01/21/2021 through 01/22/2024 Encounter Provider Location Date Check-In Time Check-Out Time Diagnosis Post-Op Visit Ramakrishna Bennett MD [facility] [place] [facility] 07/27/19 24 9:53AM 10:29AM Post-Op Visit Ramakrishna Bennett MD [facility] 06/29/19 24 9:55AM 10:12AM New Patient/Consul t Garrison Kwan MD [facility] 208 06/28/19 24 8:58AM 10:06AM Chronic Cutaneous Ulcer Non-pressure Back,Colonic Diverticulos is,Personal History of Colon Polyps Post-Op Visit Ramakrishna Bennett MD [facility] 06/01/19 24 9:52AM 10:14AM Post-Op Visit Ramakrishna Bennett MD [facility] 05/25/19 24 1:06PM 1:40PM DH Procedures Ramakrishna Bennett MD [facility] 05/09/19 24 3:00PM 11:59PM Insurance Includes: Active Insurance Policies Plan Name Member ID Group # Subscriber Relationship Effect lanre Dates 1 - AARP Medicare Advantage HMO/POS/PPO - [facility] [id number] Timothy Lantigua Teddy 06/27/2023 - Unknown Clinical [...] on 06/29/2023; 10:46 AM, Ramakrishna Bennett MD; [facility] Chief Complaint The Chief Complaint is: Post-Op Visit: Diagnostic Laparotomy converted to Open Low Anterior resection + umbilical hernia repair + sigmoidoscopy 05/09/2023. Reports doing better, 7 weeks out energy improving and was able to complete travel to [place] without issues. Here to assess abdominal wound [...] on 06/28/2023; 10:09 AM, Garrison Kwan MD; [facility] Chief Complaint New patient/ [...] with his primary doctor back home in [place] and usually gets his yearly physicals and [...] on 06/01/2023; 10:17 AM, Ramakrishna Bennett MD; [facility] Chief Complaint The Chief [...] on 05/25/2023; 2:07 PM, Ramakrishna Bennett MD; [facility] Chief Complaint The Chief Complaint [...]
--- OUTSIDE RECORDS SUMMARY | 2024-01-22 13:23 | XMS_ITS | Clinical Summary ---
Author Organization [facility] Address [address] [place] [address] Phone Care Team Providers Care Body Recall Instructor Name Role Phone Chris Kwan MD, Garrison [...] Time Diagnosis Post-Op Visit Ramakrishna Bennett MD [facility] [place] [facility] 07/27/19 9:53AM 10:29AM Insurance Includes: Active Insurance Policies Plan Name Member ID Group # Subscriber Relationship Effect lanre Dates 1 - AARP Medicare Advantage HMO/POS/PPO - [facility] [id number] Tree Lantigua Self 06/27/2023 - Unknown Clinical Notes Includes: Clinical Notes from this encounter * Progress note Date Encounter Last Documented by 07/27/2023 Post-Op Visit Last documented on 07/27/2023; 10:10 AM, Ramakrishna Bennett MD; [facility] Chief Complaint The Chief Complaint is: PO diagnostic lap converted to open low anterior resection, umbilical hernia repair, sigmoidoscopy 05/09/23. History of Present Illness Tree Lantigua is [...]
--- OUTSIDE RECORDS SUMMARY | 2024-01-22 13:23 | XMS_ITS | Clinical Summary ---
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 [place] removed and wound opened for concerns of [...] 0 refills Diagnosis: twice a day Pharmacy: [facility] (24 Hour) - [address] [facility], [phone] - Last Documented On 4 1:37PM By [...] Time Diagnosis Post-Op Visit Ramakrishna Bennett MD [facility] [place] [facility] 05/25/19 24 1:06PM 1:40PM Insurance Includes: Active Insurance Policies Plan Name Member ID Group # Subscriber Relationship Effect lanre Dates 1 - AARP Medicare Advantage HMO/POS/PPO - [facility] [id number] Tree Lantigua Self 06/27/2023 - Unknown Clinical Notes Includes: Clinical Notes from this encounter * Progress note Date Encounter Last Documented by 05/25/2023 Post-Op Visit Last documented on 05/25/2023; 2:07 PM, Ramakrishna Bennett MD; [facility] Chief Complaint The Chief Complaint is: [...]
--- OUTSIDE RECORDS SUMMARY | 2024-01-22 13:23 | XMS_ITS | Clinical Summary ---
Author Organization [facility] Address [address] [place] [address] Phone Care Team Providers Care Services Delivery Driver Name Role Phone Chris Kwan MD, Garrison [...] - Last Documented On 06/01/2023 10:17AM ; [facility] Education and Decision Aids [...] 05/25/2023 Last Documented On 4 9:55AM ; [facility] Medical History Includes: Medical History [...] Time Diagnosis Post-Op Visit Ramakrishna Bennett MD [facility] 06/01/19 9:52AM 10:14AM Insurance Includes: Active Insurance Policies Plan Name Member ID Group # Subscriber Relationship Effect lanre Dates 1 - AARP Medicare Advantage HMO/POS/PPO - [facility] [id number] Tree Lantigua Self 06/27/2023 - Unknown Clinical Notes Includes: Clinical Notes from this encounter * Progress note Date Encounter Last Documented by 06/01/2023 Post-Op Visit Last documented on 06/01/2023; 10:17 AM, Ramakrishna Bennett MD; [facility] Chief Complaint The Chief Complaint [...]
--- OUTSIDE RECORDS SUMMARY | 2024-01-22 13:23 | XMS_ITS ---
Care Plan - [facility] Created on: January 22, 2024 Tree Lantigua : 1955 Sex: Male Author Organization [facility] Address [address] [facility] [address] [place] [address] Phone Care Team Providers Care Brown Stock Washer Name Role Phone Chris Kwan MD, Garrison Unavailable [phone] Donald JORDAN, Ramakrishna Dennys Unavailable [phone]
--- OUTSIDE RECORDS SUMMARY | 2024-01-22 13:23 | XMS_ITS | Clinical Summary ---
Author Organization [facility] Address [address] [place] [address] Phone Care Team Providers Care Laboratory Associate Name Role Phone Chris Kwan MD, Garrison [...] and was able to complete travel to [place] without issues. Here to assess abdominal wound [...] 05/10 Last Documented On 4 9:59AM ; [facility] Review of Systems Includes: Review of [...] Time Diagnosis Post-Op Visit Ramakrishna Bennett MD [facility] [place] 06/29/19 24 9:55AM 10:12AM Insurance Includes: Active Insurance Policies Plan Name Member ID Group # Subscriber Relationship Effect lanre Dates 1 - AARP Medicare Advantage HMO/POS/PPO - [facility] [id number] Tree Lantigua Self 06/27/2023 - Unknown Clinical Notes Includes: Clinical Notes from this encounter * Progress note Date Encounter Last Documented by 06/29/2023 Post-Op Visit Last documented on 06/29/2023; 10:46 AM, Ramakrishna Bennett MD; [facility] Chief Complaint The Chief Complaint is: Post-Op Visit: Diagnostic Laparotomy converted to Open Low Anterior resection + umbilical hernia repair + sigmoidoscopy 05/09/2023. Reports doing better, 7 weeks out energy improving and was able to complete travel to [place] without issues. Here to assess abdominal wound [...]
--- OUTSIDE RECORDS SUMMARY | 2024-01-22 13:23 | XMS_ITS | Clinical Summary ---
Author Organization [facility] Address [address] [place] [address] Phone Care Team Providers Care Inspector Hairspring [employer]ing Name Role Phone Chris Kwan MD, Garrison [...] declined Last Documented On 4 9:24AM ; [facility] Assessments Includes: Assessments from this encounter Findings - Z86.010 - Personal history of colonic polyps - Last Documented On 06/28/2023 10:09AM ; [facility] Continue to follow with GI for repeat colonoscopy - Last Documented On 06/28/2023 10:09AM ; [facility] - K57.30 - Diverticulosis of large intestine without perforation or abscess without bleeding - Last Documented On 06/28/2023 10:09AM ; [facility] LUTS postsurgery. - Last Documented On 06/28/2023 10:09AM ; [facility] Patient is doing well - Last Documented On 06/28/2023 10:09AM ; [facility] Continue to follow with surgery Dr. 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 - Last Documented On 06/28/2023 10:09AM ; [facility] Okay to change to collagen dressing changes - Last Documented On 06/28/2023 10:09AM ; [facility] Instructions Includes: Instructions from this encounter Education and Decision Aids were provided during visit for: No patient education , regar ding Advanced Directive pt declined Last Documented On 4 9:24AM ; [facility] Medical Equipment - Implanted Devices Includes: Current Devices No Medical Equipment Recorded Medications Includes: Medications discussed during this encounter and other current Medications Past Medications on file Amoxicillin-Pot Clavulanate 875-125 MG Oral Tablet 05/25/2023 - 06/04/2023 Provider: Ramakrishna mancilla MD Diagnosis: twice a day Last Documented On 4 1:37PM By Celena Sandoval RN ; [facility] Medications Administered Includes: [...] index [BMI] 23.0-23.9, adult Garrison Kwan MD [facility] [address] 06/28/2023 Last Documented On 4 2:53PM ; [facility] PQRI Most recent systolic blood pressure <130 mmHg 3074F Body mass index [BMI] 23.0-23.9, adult Garrison Kwan MD [facility] [address] 06/28/2023 Last Documented On 4 2:53PM ; [facility] Most recent diastolic blood pressure 80-89mmHg 3079F Body mass index [BMI] 23.0-23.9, adult Garrison Kwan MD [facility] [address] 06/28/2023 Last Documented On [...] Check-Out Time Diagnosis New Patient/Consu lt [facility] [address] 06/28/19 24 8:58AM 10:06AM Chronic Cutaneous Ulcer Non-pressure Back,Colonic Diverticulos is,Personal History of Colon Polyps Insurance Includes: Active Insurance Policies Plan Name Member ID Group # Subscriber Relationship Effect lanre Dates 1 - AARP Medicare Advantage HMO/POS/[facility] [id number] [employer] Self 06/27/2023 - Unknown Clinical Notes Includes: Clinical Notes from this encounter * Progress note Date Encounter Last Documented by 06/28/2023 New Patient/Consult Last kayleigh benton on 06/28/2023; 10:09 AM, Garrison Kwan MD; [facility] Chief Complaint New [...] with his primary doctor back home in [place] and usually gets his yearly physicals and [...]
--- OUTSIDE RECORDS SUMMARY | 2024-01-22 13:24 | XMS_ITS | Clinical Summary ---
Author Organization [facility] [place] [address] Care Team Providers Care Rf Manager Name Role Phone Christiana Moore APRN Primary Care Provider [phone] Allergies Active Allergy Reactions Criticality Noted Date [...] migh t be different from the original. [facility]. 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 Encounters Date Type Department Care Team Description 11/12/2023 Transcribe Orders eD Incoming Referrals [phone] Christiana Moore APRN Diastasis recti from Last 3 Months Social History Tobacco Use Types Packs/Day Years [...] 04/03/2023 9:54 AM EST Plan of Treatment Upcoming Encounters Date Type Department Care Team (Late st Contact Info) Description 02/08/2024 1:00 PM EDT [place] [address] Manjula Kitchen MD [facility] [address] [place] [address] Health Maintenance Due Date Last Done Comments CT Colonography 1954 Colonoscopy 1954 Colorectal Cancer Screening 1954 FIT DNA 1954 FIT 1954 Sigmoidoscopy (10 year) with FIT yearly 1954 Sigmoidoscopy 1954 Hepatitis C Screening 1972 Lipid Screening 1972 Tetanus/Diphtheria/Pertussis Vaccines (1 - Tdap) 1973 Zoster vaccine (1 of 2) 2004 Advance Directive 2009 Pneumoccocal Vaccine: 65+ (1 of 1 - PCV) 2019 Covid-19 Vaccine (1 - 2022-2 4 season) 2023 Influenza (Flu) vaccine (1 o f 1 [...] EST) Glucose 93 65 - 199 mg/dL [facility] Comment:Diabetes: >=200 mg/d L plus symptoms Blood Urea Nitrogen 12 10 - 20 mg/dL [facility] Creatinine 0.99 0.80 - 1.50 mg/dL [facility] Sodium 136 135 - 145 mmol/L [facility] Potassium 4.3 3.5 - 5.0 mmol/L [facility] Comment: Please note: ??Patients with WBC >100,000 may have falsely elevated Potassium levels. ??For accurate Potassium quantification in these patients send serum separator tube (gold top) for subsequent determinations. ??Contact the Clinical Chemistry Laboratory if there are any questions. Chloride 100 98 - 107 mmol/L [facility] Carbon Dioxide 22 22 - 31 mmol/L [facility] Anion Gap 14 5 - 15 mmol/L [facility] Calcium 9.5 8.5 - 10.5 mg/dL [facility] Est Glomerular Filtration Rate 83 >=60 mL/min/1. 73 m?? [facility] Comment: This patient's estimated GFR [...] In Lab Quentin Carlin MD CHEMISTRY ORDERABLES [facility] [place] [address] from Last 3 Months or Most Recently [...] capacity to make decision: Yes Care Teams Rf Manager Relationship Specialty Start Date End Date Christiana Moore APRN [address] [place] [address] PCP - General Family Medicine 09/26/19
--- OUTSIDE RECORDS SUMMARY | 2024-01-22 13:24 | XMS_ITS | Encounter Summary ---
Author Organization [facility] [place] [address] Care Team Providers Care Hyster Driver Name Role Phone Michael Moorey RYAN Primary Care Provider [phone] Reason for Referral * Home Health Care (Routine) - Closed Specialty Diagnoses / Procedures Referred By Contac t Referred To Contact Diagnoses Chest wall abscess Piyush Hobbs MD [facility] [place] [address] [facility] & [address] [place] [address] Referral ID Status Reason Start Date Expiration Date V isits Requested Visits Authorized [id number] Closed Consult, Test & Treat 03/20/2023 09/16/2023 999 999 Reason for Visit * Reason Comments Wound Check * Auth/Cert Specialty Diagnoses / Procedures Referred By Contac t Referred To Contact Diagnoses Complicated wound infection Procedures ER IPI Jose Alvarez MD [facility] [place] [address] [facility] Referral ID Status Reason Start Date Expiration Date Visits Re quested Visits Authorized [id number] 1 1 Encounter Details Date Type Department Care Team (Latest Contact Info) Description 03/17/2023 10:11 AM EST - 03/20/2023 12:20 PM EST Hospital Encounter Surgical Unit Level 4 [place] [address] Jose Alvarez MD [facility] [place] [address] Complicated wound infection (Primary Dx); [...] Hospital Course: Tree Lantigua was admitted to [facility] on 03/17/2023 via the ED where he [...] a nurse in the Thoracic Clinic at [phone]. For emergencies after hours, on weekends or holidays please call: [phone] and ask to speak to the Thoracic Surgeon fleet operations manager. Exercise & Activity Level: As you recover [...] please call the thoracic surgery clinic at [phone]. Driving: No driving for 1 week or [...] Thoracic Surgery Clinic or the Thoracic Surgeon fleet operations manager after hours. Please take over the counter [...] Center 03/20/2023 9:30 AM Jose Alvarez MD [facility] THOR 3K [facility] General Instructions None Future Appointments and Orders Future Orders Complete By Expires Referral to Home Health [[id number] Custom] As directed Process Instructions: If no progress note charted, please enter Clinical details in comments. Scheduling Instructions: Comments: Please evaluate Tree Lantigua for admission to Home Health. [address] [facility] [address] (home) Date of : 1955 Inpatient DOCUMENTATION FOR VNA SERVICES (INCLUDING THOSE PATIENTS WITH MEDICARE COVERAGE REQUIRING HOME VNA SERVICES AND/OR HOSPICE SERVICES) PATIENT'S LOCATION: [address] [facility] [id number] (home) Cell: Telephone Information: In discussion with the attending physician, it is certified that this patient is under their care and that they, or a Nurse Practitioner, Clinical Nurse specialist or Physician Account Information Clerk who is working directly with them, [...] saline and medipore HOME HEALTH CARE AGENCY: [facility]. [address] [place] [id number] START OF CARE: within 24-48 hours of [...] this patient's PCP: Christiana Moore APRN [facility] / [facility] [phone] . All A agencies which cover the area of patient's residence have been reviewed, either verbally carmel writing, and patient/family have chosen the home health care agency noted. Questions: Disciplines Requested: Nursing Physical Therapy Provider Contact Information: Primary Care Provider: Christiana Moore APRN [phone] Discharge References/Attachments: Discharge References/Attachments None For questions regarding this document or issues relating to this hospitalization on the Thoracic Surgery Service, please contact Dr. Alvarez's office at . Signed: Monique Del Angel MD 03/20/2023 Thoracic Surgery [facility] PCP: Christiana Moore APRN Referring: Jose Alvarez MD [facility] [place] [address] documented in this encounter Discharge Instructions * [...] a nurse in the Thoracic Clinic at [phone]. For emergencies after hours, on weekends or holidays please call: [phone] and ask to speak to the Thoracic Surgeon fleet operations manager. Exercise & Activity Level: As you recover [...] please call the thoracic surgery clinic at [phone]. Driving: No driving for 1 week or [...] Thoracic Surgery Clinic or the Thoracic Surgeon fleet operations manager after hours. Please take over the counter [...] Center 03/20/2023 9:30 AM Jose Alvarez MD [address] documented in this encounter Medications at [...] from the original note were not included. [facility] Department of Thoracic Surgery Progress Note Patient Name: Tree Lantigua Patient : 1955 Patient Patient Location: [address] [place] [address] Attending Surgeon: JOSE ALVAREZ Reason for Visit: [...] Surgical Unit Level 4 Wing D at [facility] Office Visit from 03/14/2023 in Thoracic Surgery at [facility] Weight 79.4 kg (175 lb) 1 03/17/2023 [...] Body Fluid Culture, Aerobic & Anaerobic Fluid [[id number]] (Abnormal) Collected: 03/17/231144 Lab Status: Preliminary result Specimen: Fluid Updated: 03/18/23939 Body Fluid Culture, Aerobic [[id number]] (Abnormal) Collected: 03/17/231144 Lab Status: Preliminary result [...] Rodriguez MD 03/19/2023 Thoracic Surgery Service Pager [phone] * Leta Kincaid MD - 03/18/2023 12:54 [...] airway distress, lungs are clear. NSR on color television console monitor. 0915: Updates given to [facility] RN July. Phase 2 criteria met. * Todd Alvarez PA - 03/18/2023 7:41 AM EST Images from the original note were not included. [facility] Department of Thoracic Surgery Progress Note Patient Name: Tree Lantigua Patient : 1955 Patient Patient Location: [address] [place] [address]- Attending Surgeon: JOSE ALVAREZ Reason for Visit: [...] Surgical Unit Level 4 Wing D at [facility] Office Visit from 03/14/2023 in Thoracic Surgery at [facility] Weight 79.4 kg (175 lb) 1 03/17/2023 [...] resident's interpretation and agree with the findings, Jign Hudson MD at 03/14/2023 5:36 PM Thank you for letting us participate in the care of this patient. If you are a health care provider and have any questions regarding this report, please contact the number below. For patients who have questions please contact the health childcare director that requested your imaging first. Micro: Microbiology Results (last 7 days) Procedure Component Value - Date/Time Body Fluid Culture, Aerobic & Anaerobic Fluid [[id number]] (Abnormal) Collected: 03/17/231144 Lab Status: Preliminary result Specimen: Fluid Updated: 03/17/231334 Body Fluid Culture, Aerobic [[id number]] (Abnormal) Collected: 03/17/231144 Lab Status: Preliminary result [...] Renal/: voiding spontaneously, monitor UOP Heme: SQH fleet operations manager to OR then TID ID: will d/c vanc, continue zosyn for time being, f/u micro results, will need PM dsg change Endo: LONI Other: LONI PPx: SQH, SCDs, IS/cough/deep breathe Dispo: Floor status, L4WD All plans formulated in discussion with and directed by attending thoracic surgeon Dr. Alvarez. SOCRATES Rao 03/18/2023 Thoracic Surgery Service Pager [phone] documented in this encounter H&P Notes * Dimitry Rodriguez MD - 03/17/2023 12:39 PM EST Images from the original note were not included. [facility] Department of Thoracic Surgery History & [...] 2.78) performed by Jose Alvarez MD at [facility] MAIN OR PRO DEBRIDEMENT MUSCLE AND FASCIA 20 SQ CM/< Right 12/09/2019 DEBRIDEMENT SKIN, SUBCU, MUSCLE, THORAX (WRVU 2.7) performed by Michael Li MD at [facility] MAIN OR [facility] I&D HEMATOMA SEROMA/FLUID COLLECTION Right 11/09/2019 INCISION & DRAINAGE HEMATOMA, SEROMA OR FLD. COLLECTION, CHEST (WRVU 1.58) performed by Piyush Hobbs MD at [facility] MAIN OR PRO INCISION AND DRAINAGE COMPLEX POST OPERATIVE WOUND INFECTION Right 12/09/2019 INCISION & DRAINAGE COMPLEX POSTOPERATIVE WOUND INFECTION (WRVU 2.3) performed by Michael Li MD at [facility] MAIN OR [facility] INJECTION ANES AGENT &/ STEROID INTERCOSTAL NERVE EA ADDL LEVEL Right 10/24/2019 NERVE BLOCK, INTERCOSTAL NERVE, MULTIPLE (WRVU 1.68) performed by Jose Alvarez MD at [facility] MAIN OR [facility] THORACOSCOPY WITH BIOPSY OF PLEURA Right 10/24/2019 THORACOSCOPY; WITH BIOPSY(IES) OF PLEURA (WRVU 4.58) performed by Jose Alvarez MD at [facility] MAIN OR [facility] THORACOTOMY WITH THERAPEUTIC WEDGE RESECTION EA ADDL Right 10/24/2019 @THORACOTOMY; W/THERAPEUTIC WEDGE RESECTION, EA ADD'L RESC, IPSILATERAL (WRVU 3) performed by Jose Alvarez MD at [facility] MAIN OR [facility] THORACOTOMY WITH THERAPEUTIC WEDGE RESECTION INITIAL Right 10/24/2019 @THORACOTOMY; W/ THERAPEUTIC WEDGE RESECTION , INITIAL (WRVU 15.75) performed by Jose Alvarez MD at [facility] OR PRO THYMECTOMY, RADICAL MEDIAST DISSSEC Right 10/24/2019 @THYMECTOMY W/ RAD. MEDIASTINAL DISSECTION (WRVU 23.48) performed by Jose Alvarez MD at [facility] OR ROS: Full 12-Point ROS reviewed and negative except noted in HPI Vitals: Temp: [36.9 ??C (98.4 ??F)] Heart Rate: [94-101] Resp: [16] BP: (129-154)/(83-94) SpO2: [97 %-99 %] Heart Rate from SpO2: [94 bpm] Wt & BMI By Encounter Date Flowsheet Row ED from 03/17/2023 in Emergency Department [facility] Office Visit from 03/14/2023 in Thoracic Surgery at [facility] Weight 79.4 kg (175 lb) 1 03/17/2023 [...] resident's interpretation and agree with the findings, iJng Hudson MD at 03/14/2023 5:36 PM Thank you for letting us participate in the care of this patient. If you are a health care provider and have any questions regarding this report, please contact the number below. For patients who have questions please contact the health childcare director that requested your imaging first. Micro: Microbiology Results (last 7 days) Procedure Component Value - Date/Time Body Fluid Culture, Aerobic & Anaerobic Fluid [[id number]] (Abnormal) Collected: 03/17/231144 Lab Status: Preliminary result Specimen: Fluid Updated: 03/17/231334 Body Fluid Culture, Aerobic [[id number]] (Abnormal) Collected: 03/17/231144 Lab Status: Preliminary result [...] Rodriguez MD 03/17/2023 Thoracic Surgery Service Pager [phone] PROCEDURE NOTE: INCISION & DRAINAGE After obtaining [...] Component Value Date COVID19 Not Detected 10/21/2019 [id number] Not Detected 12/08/2019 Past medical History: No past medical history on file. Hospitalizations Within the Past 30 Days: no previous admission in last 30 days Current Decision-Making Capacity: Self If AD's have not been completed the following surrogate would be surrogate decision maker per [place] surrogate decision making law. (Only good for 180 days) Any patient receiving care in [place] must abide by [place] law. The hierarchy for surrogate decision making [...] (i) The agent with financial power of slate splitter or a conservator appointed in accordance with [...] Current DME: none Home Address confirmed as: [address] [place] [id number] Social & Family Supports: All names listed below confirmed with patient as current and correct Extended Emergency Contact Information Primary Emergency Contact: Lillian Tyson Address: [address] [place] [address] of [facility] Mobile Relation: Spouse Current Care Provided by: [...] N/A ; Prescription Coverage: Yes Preferred Pharmacy: [id number] - [place], [place] - [address] [facility] [facility] [address] [facility] [address] [facility] [address] [place], [place] - [address] [facility] [address] [facility] [address] - [place], [place] - [address] [facility] [address] [facility] [address] [place] Status: Patient is a : No Primary Care Provider confirmed: Christiana Moore APRN [phone] Patient/Caregiver Goals of Treatment: discharge home Potential Needs for Transition of Care: home health care Agency Referrals: I have met with the patient to: discuss discharge planning needs. provide the [facility], Office of Care Management letter from the Model Home Sales Greeter pertaining to rehab referrals. provide a letter describing our affiliations within the [facility] and educate about their right to choose where referrals are sent. provide a list of Home Health Agencies / Durable Medical Equipment vendors which serve their preferred geographic area. provided patient with [facility] Star Quality Rating handout. They have requested referrals to: [facility] [address] [place] [address] KATELYN: 03/20/2023 Note routed to a Fiberline Supervisor who will communicate referrals to facilities and [...] of care planning. Angela Rock RN-BSN-CM Pager: [phone] * Plan of Care - Cindy Bonilla [...] Operative Note Patient Name: Tree Lantigua : [id number] MR#: [id number] Case Date: 03/18/2023 Surgeon: Surgeon(s) and Role: [...] Alvarez MD - 03/18/2023 8:10 AM EST [facility] Operative Note Patient Name: Tree Lantigua : [id number] MR#: [id number] Case Date: 03/18/2023 Surgeon: Surgeon(s) and Role: [...] documented in this encounter Plan of Treatment Upcoming Encounters Date Type Department Care Team (Late st Contact Info) Description 02/08/2024 1:00 PM EDT Office [place] [address] Manjula Kitchen MD [facility] [place] [address] Scheduled Referrals Name Type Priority Associated Diagnoses Orde r Schedule Referral to Home Health Outpatient Referral Routine Chest wall abscess Ordered: 03/20/2023 documented as of this encounter Procedures Procedure Name Priority Date/Time Associated Diagnosis Comments SPECIMEN TO PATHOLOGY Routine 03/18/2023 8:21 AM EST SURGICAL PATHOLOGY REPORT Routine 03/18/2023 8:20 AM EST I&D Hematoma Seroma/Fluid Collection (265[address]) 03/18/2023 7:55 AM EST abscess old thoracotomy [...] AM EST 03/18/2023 8:21 AM EST Narrative [facility] - 03/18/2023 8:21 AM EST Specimen requisition ordered. ??Separate Pathology report to follow Jose Alvarez MD PATHOLOGY/CYTOLOGY O BENJI [facility] [place] [id number] * Surgical Pathology Report (03/18/2023 8:20 AM EST) Final Diagnosis [id number] ? Location: WD; [facility]; A The signing pathologist has (i) examined the relevant preparation(s) for the specimen(s) and (ii) rendered or confirmed the diagnosis(es). . ?Surgical Pathology DIAGNOSIS A - Skin and soft tissue, right posterior chest wall, debridement: - Skin with scar and underlying granulation tissue with acute and chronic inflammation. Electronically signed by: ?Helen Garcia MD Verified: ??03/26/2023 10:34 ??Pathologist Performed at: ??-[facility] Dept. of Pathology, [place] [address] [employer] Greeter: Tunde Smyth MD, FCAP, ??CLIA Certificate: [id number] SPECIMEN(S) SUBMITTED A - Skin and soft tissue, right posterior chest wall, debridement (1) CLINICAL INFORMATION Abscess old thoracotomy wound SPECIMEN PROCESSING A - Labeled/Fixative : Debridement right posterior chest wall, fresh. Quantity/Size: Single, 5.2 x 2.3 x 1.0 cm. Tissue Description: Grossman-bean, wrinkled skin ellipse with underlying bean, dull and rubbery subcutaneous tissue. Sections/Process ing: Linoleum Floor Layer sections in 1 cassette labeled A1. ??jnr 03/26/2023 10:34 AM EST [facility] SPECIMEN FROM UNSPECIFIED BODY SITE / Unknown 03/18/2023 8:20 AM EST 03/18/2023 8:20 AM EST Jose Alvarez MD PATHOLOGY/CYTOLOGY O RDERABLES Performing Organization Address City/[facility]/ZIP Co de Phone Number [facility] [place] [address] [facility] [place] [address] * (ABNORMAL) Body Fluid Culture, Aerobic (03/17/2023 11:45 AM EST) Body Fluid Culture Many Staphylococcus aureus(A) [facility] Gram Stain Many Neutrophils seen Many Gram Positive Cocci seen (A) [facility] Organism Staphylococcus aureus(A) [facility] Organism Gram Positive Cocci(A) [facility] Fluid 03/17/2023 11:4 5 AM EST 03/17/2023 12:46 PM EST Comment:Abscess Narrative Resulting Agency Comment Spec In Lab Organism Antibiotic Method Susceptibility Staphylococcus aureus Clindamycin VITEK 2 METHOD Sensitive Staphylococcus aureus Erythromycin VITEK 2 METHOD Sensitive Staphylococcus aureus Gentamicin VITEK 2 METHOD Sensitive Comment:Gentamicin i s not appropriate for [place]-therapy. Staphylococcus aureus Oxacillin VITEK 2 METHOD Sensitive [...] GENER AL ORDERABLES Performing Organization Address City/[facility]/ZIP Co de Phone Number [facility] [place] [address] * L-Lactate2 Whole Blood (03/17/2023 11:13 AM EST) Lactate WB 1.5 0.5 - 2.2 mmol/L [facility] Blood 03/17/2023 11:1 3 AM EST 03/17/2023 11:13 AM EST Jose Alvarez MD CHEMISTRY ORDERABLES [facility] [place] [address] * Differential, Automated (03/17/2023 11:06 AM EST) Pathologist [facility] Neutrophil % 74.9 % [facility] Neutrophil Absolute 5.59 1.70 - 6.10 x10(3)/[facility] Lymph % 15.7 % [facility] Lymphocytes Abs 1.2 0.9 - 3.2 x10(3)/[facility] Monocyte % 7.9 % [facility] Monocyte Abs 0.6 0.3 - 0.9 x10(3)/[facility] LAB[facility]ATORY Eos % 0.3 % [facility] Eosinophils Abs 0.0 0.0 - 0.4 x10(3)/[facility] Basophil % 0.8 % [facility] Baso Absolute 0.1 0.0 - 0.1 x10(3)/[facility] Immature Gran % 0.40 % [facility] Comment: Immature granulocytes(IG's)percentage and absolute count will include metamyelocytes, myelocytes, and promyelocytes. Blood smears from CBCs yielding IG's will be scanned manually for concordance. If this scan disagrees with the automated IG or if promyelocytes are noted, a manual differential will be performed. Immature Gran Absolute 0.03 0.00 - 0.04 x10(3)/[facility] Blood 03/17/2023 11:0 6 AM EST 03/17/2023 11:14 AM EST Narrative Resulting Agency Comment Spec In Lab Becca Tovar MD HEMATOLOGY ORDERABLE S [facility] [place] [address] * (ABNORMAL) Hemogram (03/17/2023 11:06 AM EST) White Blood Cell 7.5 4.0 - 9.5 x10(3)/ L [facility] Red Blood Cell 6.86(H) 4.58 - 5.54 x10(6)/mc L [facility] Hemoglobin 13.9 13.7 - 16.5 g/dL [facility] Hematocrit 46.0 40.5 - 48.5 % [facility] Mean Cell Volume 67.1(L) 82.9 - 93.1 fL [facility] Mean Cell Hemoglobin 20.3(L) 27.5 - 32.1 pg [facility] Mean Cell Hemoglobin Concentration 30.2(L) 32.0 - 35.7 g/dL [facility] Platelet 302 145 - 357 x10(3)/mc L [facility] RDW Standard Deviation 37.2 36.0 - 45.0 fL [facility] RDW coefficient of variation 17.3(H) 11.4 - 13.8 % [facility] Mean Platelet Volume 9.8 7.6 - 12.9 fL [facility] NRBC% auto 0.0 % [facility] NRBC Absolute 0.000 0.000 - 0.000 x10(3)/ L [facility] Blood 03/17/2023 11:0 6 AM EST 03/17/2023 11:14 AM EST Narrative Resulting Agency Comment Spec In Lab Becca Tovar MD HEMATOLOGY ORDERABLE S Performing Organization Address City/[facility]/ZIP Co de Phone Number [facility] [place] [address] * (ABNORMAL) Sedimentation rate (03/17/2023 11:06 AM EST) Sedimentation Rate Automated >119(H) 2 - 37 mm/hr [facility] Comment: Effective March 19, 2019 new capillary photometric technology has resulted in a change in reference ranges. It is recommended that each ESR result be reviewed with its own age appropriate reference range. Blood 03/17/2023 11:0 6 AM EST 03/17/2023 11:14 AM EST Narrative Resulting Agency Comment Spec In Lab Jose Alvarez MD HEMATOLOGY ORDERABLE S Performing Organization Address City/[facility] Co de Phone Number [facility] [place] [address] * (ABNORMAL) CRP, acute inflammation (03/17/2023 11:06 AM EST) C-Reactive Protein 112.8(H) <=4.9 mg/L [facility] Blood 03/17/2023 11:0 6 AM EST 03/17/2023 11:14 AM EST Narrative Resulting Agency Comment Spec In Lab Jose Alvarez MD CHEMISTRY ORDERABLES Performing Organization Address [facility] Co de Phone Number [facility] [place] [address] * Basic Metabolic Panel (non-fasting) (03/17/2023 11:06 AM EST) Glucose 93 65 - 199 mg/dL [facility] Comment:Diabetes: >=200 mg/d L plus symptoms Blood Urea Nitrogen 12 10 - 20 mg/dL [facility] Creatinine 0.99 0.80 - 1.50 mg/dL [facility] Sodium 136 135 - 145 mmol/L [facility] Potassium 4.3 3.5 - 5.0 mmol/L [facility] Comment: Please note: ??Patients with WBC >100,000 may have falsely elevated Potassium levels. ??For accurate Potassium quantification in these patients send serum separator tube (gold top) for subsequent determinations. ??Contact the Clinical Chemistry Laboratory if there are any questions. Chloride 100 98 - 107 mmol/L [facility] Carbon Dioxide 22 22 - 31 mmol/L [facility] Anion Gap 14 5 - 15 mmol/L [facility] Calcium 9.5 8.5 - 10.5 mg/dL [facility] Est Glomerular Filtration Rate 83 >=60 mL/min/1. 73 m?? [facility] Comment: This patient's estimated GFR [...] In Lab Jose Alvarez MD CHEMISTRY ORDERABLES [facility] [place] [address] documented in this encounter Visit Diagnoses Diagnosis [...] EVERY 6 HOURS SCHEDULED, First dose on Sun03/18/23 at 0000, Until Discontinued, Maximum dose of [...] PRN, Starting on 03/17/23 at 1058, Until 03/17/23 at 2130, Pain, Routine Given 03/17/2023 8:29 PM EST 15 mg Given 03/17/2023 11:23 AM EST 15 mg ketorolac (Toradol) (15 mg/mL) injection 15 mg 15 mg, Intravenous, EVERY 8 HOURS SCHEDULED, 6 doses, First dose on 03/17/23 at 2215, Last dose on Sun03/19/23 at 1400, Recovery (Recovery-Hospital Unit), Routine Given 03/19/2023 1:23 PM EST 15 mg Given 03/19/2023 5:21 AM EST 15 mg Given 03/18/2023 9:43 PM EST 15 mg lidocaine (Xylocaine) 1% (10 mg/mL) injection 3 mg 3 mg (0.3 mL), Subcutaneous, ONCE PRN, 1 dose, Starting on 03/17/23 at 2123, Until 03/20/23 at 1420, for discomfort with PIV insertion, Recovery (Recovery-Hospital Unit), Routine oxyCODONE (Roxicodone) tablet 5 mg 5 mg, Oral, EVERY 6 HOURS PRN, Starting on 03/17/23 at 1201, Until 03/20/23 at 1420, Pain, Pain 7-10, Routine Given [...] (2 times per day), First dose on 03/20/23 at 0900, Until Discontinued, Routine, Indication for (Active or Suspected): Other (See comment) / abcess Given 03/20/2023 8:11 AM EST 1 tablet [...] for scheduled level. Warning Vesicant/Irritant Medication , Routine, Indication for (Active or Suspected): Skin/Skin Structure / subcutaneous abscess New Bag 03/18/2023 5:48 AM EST 1,250 [...] for scheduled level. Warning Vesicant/Irritant Medication , STAT, Indication for (Active or Suspected): Skin/Skin Structure New Bag 03/17/2023 12:29 PM EST 2 [...] RN)2000 (New Bag - Provider: Gabe Curiel RN)2015 (Stopped - Provider: Gabe Curiel RN) 0243 (New Bag - Provider: Gabe Curiel RN)0258 (Stopped - Provider: Gabe Curiel RN) heparin (porcine) (5,000 units/1 mL) subcutaneous injection 5,000 Units (COMPLETED) 5,000 Units, Subcutaneous, RETAIL DELIVERY DRIVER TO O.R., 1 dose, On 03/18/23 at 0830, Please administer fleet operations manager to OR, prior to procedure, thank you, STAT 0754 (JUN Hold - Provider: Admin Adt - Reason: Transfer to a Procedural area)0815 (Given - Provider: Camilla Cruz CRNA - Comment: Right arm. PSR)0816 (JUN Unhold - Provider: Camilla Cruz CRNA)0830 (Due) [...] Bonilla, EVER) 0521 (Given - Provider: Cindy Bonilla RN)1323 [...] Sun03/17/23 at 1058, Until Discontinued, Routine 0754 (JUN Hold - Provider: Admin Adt - Reason: Transfer to a Procedural area)0900 (Automatically Held - Provider: Admin Adt)0922 (JUN Unhold - Provider: Admin Adt)0942 (Given - Provider: Madison Adam RN)2144 (Given - Provider: Cindy Bonilla RN) 0912 (Given - Provider: Madison Adam RN) sodium chloride 0.9 % (flush) (BD PosiFlush Normal Saline 0.9) flush 5 mL 5 mL, Intravenous, 2 TIMES DAILY, First dose on Sun03/17/23 at 2215, Until Discontinued, Recovery (Recovery-Hospital Unit), Routine 0942 (Given - Provider: Madison Adam RN)2143 (Given - Provider: Cindy Bonilla RN) 0912 (Given - Provider: Madison Adam RN)1999 (Given - Provider: Gabe Curiel RN) 0811 (Given - Provider: Pily Greenwood, EVER) sulfamethoxazole-trimet hoprim DS (Bactrim DS) 800-160 mg per tablet 1 tablet 1 tablet, Oral, EVERY 12 HOURS SCHEDULED (2 times per day), First dose on Sun03/20/23 at 0900, Until Discontinued, Routine, Indication for (Active or Suspected): Other (See comment) / abcess 0811 (Given - Provider: Pily Greenwood RN) [...] an associated drug lab level. Please see [facility] for scheduled level. Warning Vesicant/Irritant Medication , Routine, Indication for (Active or Suspected): Skin/Skin Structure / subcutaneous abscess 0548 (New Bag - Provider: Gabe Curiel [...] PRN, Starting on 03/17/23 at 1201, Until Tu03/20/23 at 1420, Pain, Pain 7-10, Routine 0754 [...] Routine documented in this encounter Care Teams Hyster Driver Relationship Specialty Start Date End Date Christiana Moore APRN [address] [place] [address] PCP - General Family Medicine 09/26/19 documented as of this encounter
--- OUTSIDE RECORDS SUMMARY | 2024-01-22 13:24 | XMS_ITS | Encounter Summary ---
Author Organization [facility]ly [facility] [place] [address] Care Team Providers Care Lock Fitter Name Role Phone Christiana Moore RYAN Primary Care Provider [phone] Reason for Visit * Auth/Cert Specialty Diagnoses / Procedures Referred By Contac t Referred To Contact Diagnoses Complicated wound infection Procedures ER MICAELAI Quentin Carlin MD [facility] [place] [address] [facility] Referral ID Status Reason Start Date Expiration Date Visits Re quested Visits Authorized [id number] 1 1 Encounter Details Date Type Department Care Team (Latest Contact Info) Description 03/14/2023 1:00 PM EST Laboratory Appointment Lab [address] [place] [address] Chest wall abscess Social History Tobacco Use [...] as of this encounter Plan of Treatment Upcoming Encounters Date Type Department Care Team (Late st Contact Info) Description 02/08/2024 1:00 PM EDT Office [place] [id number] Manjula Kitchen MD [facility] [place] [address] documented as of this encounter Procedures Procedure [...] Scan, Peripheral Blood (03/14/2023 1:00 PM EST) [facility] Plat estimate Normal [facility] RBC Morphology Abnormal [facility] Microcyte 1-5 /HPF [facility] Ovalocytes 1-5 /HPF [facility] Blood 03/14/2023 1:00 PM EST 03/14/2023 1:13 PM EST Narrative Resulting Agency Comment Spec In Lab Quentin Carlin MD HEMATOLOGY ORDERABLE S [facility] [place] [address] * (ABNORMAL) Differential, Automated (03/14/2023 1:00 PM EST) [facility] Neutrophil % 79.9 % [facility] Neutrophil Absolute 8.57(H) 1.70 - 6.10 x10(3)/mc L [facility] Lymph % 10.6 % [facility] Lymphocytes Abs 1.1 0.9 - 3.2 x10(3)/mc L [facility] Monocyte % 8.0 % [facility] Monocyte Abs 0.9 0.3 - 0.9 x10(3)/mc L [facility] Eos % 0.4 % [facility] Eosinophils Abs 0.0 0.0 - 0.4 x10(3)/mc L [facility] Basophil % 0.5 % [facility] Baso Absolute 0.0 0.0 - 0.1 x10(3)/mc L [facility] Immature Gran % 0.60 % [facility] Comment: Immature granulocytes(IG's)percentage and absolute count will include metamyelocytes, myelocytes, and promyelocytes. Blood smears from CBCs yielding IG's will be scanned manually for concordance. If this scan disagrees with the automated IG or if promyelocytes are noted, a manual differential will be performed. Immature Gran Absolute 0.06(H) 0.00 - 0.04 x10(3)/ L [facility] Blood 03/14/2023 1:00 PM EST 03/14/2023 1:13 PM EST Narrative Resulting Agency Comment Spec In Lab Quentin Carlin MD HEMATOLOGY ORDERABLE S Performing Organization Address City/State/[facility] Co de Phone Number [facility] [place] [address] * (ABNORMAL) Hemogram (03/14/2023 1:00 PM EST) White Blood Cell 10.7(H) 4.0 - 9.5 x10(3)/ L [facility] Red Blood Cell 6.63(H) 4.58 - 5.54 x10(6)/ L [facility] Hemoglobin 13.6(L) 13.7 - 16.5 g/dL [facility] Hematocrit 44.6 40.5 - 48.5 % [facility] Mean Cell Volume 67.3(L) 82.9 - 93.1 fL [facility] Mean Cell Hemoglobin 20.5(L) 27.5 - 32.1 pg [facility] Mean Cell Hemoglobin Concentration 30.5(L) 32.0 - 35.7 g/dL [facility] Platelet 282 145 - 357 x10(3)/ L [facility] RDW Standard Deviation 38.1 36.0 - 45.0 fL [facility] RDW coefficient of variation 17.7(H) 11.4 - 13.8 % [facility] Mean Platelet Volume 9.8 7.6 - 12.[address] [facility] NRBC% auto 0.0 % [facility] NRBC Absolute 0.000 0.000 - 0.000 x10(3)/mc L [facility] Blood 03/14/2023 1:00 PM EST 03/14/2023 1:13 PM EST Narrative Resulting Agency Comment Spec In Lab Quentin Carlin MD HEMATOLOGY ORDERABLE S [facility] [place] [address] * Basic Metabolic Panel (non-fasting) (03/14/2023 1:00 PM EST) Glucose 118 65 - 199 mg/dL [facility] Comment:Diabetes: >=200 mg/d L plus symptoms Blood Urea Nitrogen 13 10 - 20 mg/dL [facility] Creatinine 0.98 0.80 - 1.50 mg/dL [facility] Sodium 138 135 - 145 mmol/L [facility] Potassium 4.5 3.5 - 5.0 mmol/L [facility] Comment: Please note: ??Patients with WBC >100,000 may have falsely elevated Potassium levels. ??For accurate Potassium quantification in these patients send serum separator tube (gold top) for subsequent determinations. ??Contact the Clinical Chemistry Laboratory if there are any questions. Chloride 101 98 - 107 mmol/L [facility] Carbon Dioxide 26 22 - 31 mmol/L [facility] Anion Gap 11 5 - 15 mmol/L [facility] Calcium 9.5 8.5 - 10.5 mg/dL [facility] Est Glomerular Filtration Rate 84 >=60 mL/min/1. 73 m?? [facility] Comment: This patient's estimated GFR was [...] In Lab Quentin Carlin MD CHEMISTRY ORDERABLES [facility] [place] [address] documented in this encounter Visit Diagnoses Diagnosis Chest wall abscess Cellulitis and abscess of trunk documented in this encounter Care Teams Lock Fitter Relationship Specialty Start Date End Date Christiana Moore APRN [address] [place] [address] PCP - General Family Medicine 09/26/19 documented as of this encounter
--- OUTSIDE RECORDS SUMMARY | 2024-01-22 13:24 | XMS_ITS | Encounter Summary ---
Author Organization [facility] [place] [address] Care Team Providers Care Archeologist Name Role Phone Christiana Moore APRN Primary Care Provider Encounter Details Date Type [...] PM EDT Office [place] [address] Manjula Kitchen MD [facility] [place] [address] documented as of this encounter Visit Diagnoses Not on filedocumented in this encounter Care Teams Archeologist Relationship Specialty Start Date End Date Christiana Moore APRN [address] [place] [address] PCP - General Family Medicine 09/26/19 documented as of this encounter
--- OUTSIDE RECORDS SUMMARY | 2024-01-22 13:24 | XMS_ITS | Encounter Summary ---
Author Organization [facility] [place] [address] Care Team Providers Care Housekeeping Director Name Role Phone Oscar Christiana RYAN Primary Care Provider [phone] Reason for Visit * Reason Comments Wound Check * Auth/Cert Specialty Diagnoses / Procedures Referred By Contac t Referred To Contact Diagnoses Complicated wound infection Procedures ER IPI Jose Alvarez MD [facility] [address] [place] [address] [facility] Referral ID Status Reason Start Date Expiration Date Visits Re quested Visits Authorized [id number] 1 1 Encounter Details Date Type Department Care Team (Late st Contact Info) Description 03/18/2023 8:00 AM EST - 03/18/2023 9:48 AM EST Surgery [place] [address] Jose Alvarez MD [facility] DR TH[place]AC[place] [address] INCISION & DRAINAGE HEMATOMA, SEROMA OR FLD. [...] Hospital Course: Tree Lantigua was admitted to [facility] on 03/17/2023 via the ED where [...] a nurse in the Thoracic Clinic at [phone]. For emergencies after hours, on weekends or holidays please call: [phone] and ask to speak to the Thoracic Surgeon construction worker. Exercise & Activity Level: As you recover [...] please call the thoracic surgery clinic at [phone]. Driving: No driving for 1 week or [...] Thoracic Surgery Clinic or the Thoracic Surgeon construction worker after hours. Please take over the counter [...] Center 03/20/2023 9:30 AM Jose Alvarez MD [facility] General Instructions None Future Appointments and Orders Future Orders Complete By Expires Referral to Home Health [REF34 Custom] As directed Process Instructions: If no progress note charted, please enter Clinical details in comments. Scheduling Instructions: Comments: Please evaluate Tree Lantigua for admission [facility]. [address] [facility] [address] (home) Date of : 1955 Inpatient DOCUMENTATION FOR VNA SERVICES (INCLUDING THOSE PATIENTS WITH MEDICARE COVERAGE REQUIRING HOME VNA SERVICES AND/OR HOSPICE SERVICES) PATIENT'S LOCATION: Tree Lantigua [address] [facility] [phone] (home) Cell: Telephone Information: In discussion with the attending physician, it is certified that this patient is under their care and that they, or a Nurse Practitioner, Clinical Nurse specialist or Physician Developmental Psychologist who is working directly with them, had [...] saline and medipore HOME HEALTH CARE AGENCY: [facility] [address] [place] [id number] START OF CARE: within 24-48 hours of [...] patient's PCP: Christiana Moore APRN [address] [facility] [address] . All VNA agencies which cover the area of patient's residence have been reviewed, either verbally carmel writing, and patient/family have chosen the home health care agency noted. Questions: Disciplines Requested: Nursing Physical Therapy Provider Contact Information: Primary Care Provider: Christiana Moore APRN [phone] Discharge References/Attachments: Discharge References/Attachments None For questions regarding this document or issues relating to this hospitalization on the Thoracic Surgery Service, please contact Dr. Alvarez's office at . Signed: Monique Del Angel MD 03/20/2023 Thoracic Surgery [facility] PCP: Christiana Moore APRN Referring: Jose Alvarez MD [facility] [place] [address] documented in this encounter Discharge Instructions * [...] a nurse in the Thoracic Clinic at [phone]. For emergencies after hours, on weekends or holidays please call: [phone] and ask to speak to the Thoracic Surgeon construction worker. Exercise & Activity Level: As you recover [...] please call the thoracic surgery clinic at [phone]. Driving: No driving for 1 week or [...] Thoracic Surgery Clinic or the Thoracic Surgeon construction worker after hours. Please take over the counter [...] Center 03/20/2023 9:30 AM Jose Alvarez MD [address] documented in this encounter Medications at [...] from the original note were not included. [facility] Department of Thoracic Surgery Progress Note Patient Name: Tree Lantigua Patient : 1955 Patient Patient Location: [address] [place] [address] Attending Surgeon: JOSE ALVAREZ Reason for Visit: [...] Surgical Unit Level 4 Wing D at [facility] Office Visit from 03/14/2023 in Thoracic Surgery at [facility] Weight 79.4 kg (175 lb) 1 03/17/2023 [...] Body Fluid Culture, Aerobic & Anaerobic Fluid [[id number]] (Abnormal) Collected: 03/17/23 114 Lab Status: Preliminary result Specimen: Fluid Updated: 03/18/23939 Body Fluid Culture, Aerobic [[id number]] (Abnormal) Collected: 03/17/23 114 Lab Status: Preliminary [...] Rodriguez MD 03/19/2023 Thoracic Surgery Service Pager [phone] * Leta Kincaid MD - 03/18/2023 12:54 [...] airway distress, lungs are clear. NSR on cardiac surgeon. 0915: Updates given to [facility] RN July. Phase 2 criteria met. * Todd Alvarez PA - 03/18/2023 7:41 AM EST Images from the original note were not included. [facility] Department of Thoracic Surgery Progress Note Patient Name: Tree Lantigua Patient : 1955 Patient Patient Location: [address] [place] [address] Attending Surgeon: JOSE ALVAREZ Reason for Visit: [...] Surgical Unit Level 4 Wing D at [facility] Office Visit from 03/14/2023 in Thoracic Surgery at [facility] Weight 79.4 kg (175 lb) 1 03/17/2023 [...] who have questions please contact the health customer care representative that requested your imaging first. Micro: Microbiology Results (last 7 days) Procedure Component Value - Date/Time Body Fluid Culture, Aerobic & Anaerobic Fluid [[id number]] (Abnormal) Collected: 12/09/23 1145 Lab Status: Preliminary result Specimen: Fluid Updated: 03/17/231334 Body Fluid Culture, Aerobic [[id number]] (Abnormal) Collected: 03/17/23 114 Lab Status: Preliminary [...] Renal/: voiding spontaneously, monitor UOP Heme: SQH construction worker to OR then TID ID: will d/c vanc, continue zosyn for time being, f/u micro results, will need PM dsg change Endo: LONI Other: LONI PPx: SQH, SCDs, IS/cough/deep breathe Dispo: Floor status, L4WD All plans formulated in discussion with and directed by attending thoracic surgeon Dr. Alvarez. SOCRATES Rao 03/18/2023 Thoracic Surgery Service Pager [phone] documented in this encounter H&P Notes * Dimitry Rodriguez MD - 03/17/2023 12:39 PM EST Images from the original note were not included. [facility] Department of Thoracic Surgery History & Phisical [...] 2.78) performed by Jose Alvarez MD at [facility] MAIN OR PRO DEBRIDEMENT MUSCLE AND FASCIA 20 SQ CM/< Right 12/09/2019 DEBRIDEMENT SKIN, SUBCU, MUSCLE, THORAX (WRVU 2.7) performed by Michael Li MD at [facility] MAIN OR PRO I&D HEMATOMA SEROMA/FLUID COLLECTION Right 11/09/2019 INCISION & DRAINAGE HEMATOMA, SEROMA OR FLD. COLLECTION, CHEST (WRVU 1.58) performed by Piyush Hobbs MD at [facility] MAIN OR PRO INCISION AND DRAINAGE COMPLEX POST OPERATIVE WOUND INFECTION Right 12/09/2019 INCISION & DRAINAGE COMPLEX POSTOPERATIVE WOUND INFECTION (WRVU 2.3) performed by Michael Li MD at [facility] MAIN OR PRO INJECTION ANES AGENT &/ STEROID INTERCOSTAL NERVE EA ADDL LEVEL Right 10/24/2019 NERVE BLOCK, INTERCOSTAL NERVE, MULTIPLE (WRVU 1.68) performed by Jose Alvarez MD at [facility] MAIN OR PRO THORACOSCOPY WITH BIOPSY OF PLEURA Right 10/24/2019 THORACOSCOPY; WITH BIOPSY(IES) OF PLEURA (WRVU 4.58) performed by Jose Alvarez MD at [facility] MAIN OR PRO THORACOTOMY WITH THERAPEUTIC WEDGE RESECTION EA ADDL Right 10/24/2019 @THORACOTOMY; W/THERAPEUTIC WEDGE RESECTION, EA ADD'L RESC, IPSILATERAL (WRVU 3) performed by Jose Alvarez MD at [facility] MAIN OR PRO THORACOTOMY WITH THERAPEUTIC WEDGE RESECTION INITIAL Right 10/24/2019 @THORACOTOMY; W/ THERAPEUTIC WEDGE RESECTION , INITIAL (WRVU 15.75) performed by Jose Alvarez MD at [facility] MAIN OR PRO THYMECTOMY, RADICAL MEDIAST DISSSEC Right 10/24/2019 @THYMECTOMY W/ RAD. MEDIASTINAL DISSECTION (WRVU 23.48) performed by Jose Alvarez MD at [facility] MAIN OR ROS: Full 12-Point ROS reviewed and negative except noted in HPI Vitals: Temp: [36.9 ??C (98.4 ??F)] Heart Rate: [94-101] Resp: [16] BP: (129-154)/(83-94) SpO2: [97 %-99 %] Heart Rate from SpO2: [94 bpm] Wt & BMI By Encounter Date Flowsheet Row ED from 03/17/2023 in Emergency Department [facility] Office Visit from 03/14/2023 in Thoracic Surgery at [facility] Weight 79.4 kg (175 lb) 1 03/17/2023 [...] who have questions please contact the health customer care representative that requested your imaging first. Micro: Microbiology Results (last 7 days) Procedure Component Value - Date/Time Body Fluid Culture, Aerobic & Anaerobic Fluid [[id number]] (Abnormal) Collected: 03/17/231144 Lab Status: Preliminary result Specimen: Fluid Updated: 03/17/231334 Body Fluid Culture, Aerobic [[id number]] (Abnormal) Collected: 03/17/231144 Lab Status: Preliminary result [...] Rodriguez MD 03/17/2023 Thoracic Surgery Service Pager [phone] PROCEDURE NOTE: INCISION & DRAINAGE After obtaining [...] Component Value Date COVID19 Not Detected 10/21/2019 [id number] Not Detected 12/08/2019 Past medical History: No past medical history on file. Hospitalizations Within the Past 30 Days: no previous admission in last 30 days Current Decision-Making Capacity: Self If AD's have not been completed the following surrogate would be surrogate decision maker per [place] surrogate decision making law. (Only good for 180 days) Any patient receiving care in [place] must abide by [place] law. The hierarchy for surrogate decision making [...] (i) The agent with financial power of real estate associate attorney or a conservator appointed in accordance [...] Current DME: none Home Address confirmed as: [address] [place] [id number] Social & Family Supports: All names listed below confirmed with patient as current and correct Extended Emergency Contact Information Primary Emergency Contact: Lillian Tyson Address: [address] [place] [id number] [place] [address] Mobile Relation: Spouse Current Care Provided by: [...] MEDICARE Payor: [employer]AR MANAGED MEDICARE / Plan: [facility] MANAGED MEDICARE COMPLETE / Product Type: *No Product type* / Secondary Insurance: N/A ; Prescription Coverage: Yes Preferred Pharmacy: [id number] - [place], [place] - [address] [place], [place] [address]ROAD [facility] [address] [facility] [address] [facility] [address] [facility] [address] [place] [address] [facility] - [place], [place] - [address] [facility] [address] [place] [address] Status: Patient is a : No Primary Care Provider confirmed: Christiana Moore APRN [phone] Patient/Caregiver Goals of Treatment: discharge home Potential Needs for Transition of Care: home health care Agency Referrals: I have met with the patient to: discuss discharge planning needs. provide the [facility], Office of Care Management letter from the Ignition Expert pertaining to rehab referrals. provide a letter describing our affiliations within the [facility] and educate about their right to choose where referrals are sent. provide a list of Home Health Agencies / Durable Medical Equipment vendors which serve their preferred geographic area. provided patient with [facility] Star Quality Rating handout. They have requested referrals to: [facility] [address] [place] [address] KATELYN: 03/20/2023 Note routed to a [employer]isher who will communicate referrals to facilities and [...] of care planning. Angela Rock RN-BSN-CM Pager: [phone] * Plan of Care - Cindy Bonilla [...] Operative Note Patient Name: Tree Lantigua DOB: [id number] MR#: [id number] Case Date: 03/18/2023 Surgeon: Surgeon(s) and Role: [...] Alvarez MD - 03/18/2023 8:10 AM EST [facility] Operative Note Patient Name: Tree Lantigua : [id number] MR#: [id number] Case Date: 03/18/2023 Surgeon: Surgeon(s) and Role: [...] PM EDT [place] [address] Manjula Kitchen MD [facility] [place] [address] Scheduled Referrals Name Type Priority Associated Diagnoses Orde r Schedule Referral to Home Health Outpatient Referral Routine Chest wall abscess Ordered: 03/20/2023 documented as of this encounter Procedures Procedure Name Priority Date/Time Associated Diagnosis Comments SPECIMEN TO PATHOLOGY Routine 03/18/2023 8:21 AM EST SURGICAL PATHOLOGY REPORT Routine 03/18/2023 8:20 AM EST I&D Hematoma Seroma/Fluid Collection ([id number]) 03/18/2023 7:55 AM EST abscess old thoracotomy [...] AM EST 03/18/2023 8:21 AM EST Narrative [facility] - 03/18/2023 8:21 AM EST Specimen requisition ordered. ??Separate Pathology report to follow Jose Alvarez MD PATHOLOGY/CYTOLOGY O RDERAMICHEAL [facility] [place] [address] * Surgical Pathology Report (03/18/2023 8:20 AM EST) Final Diagnosis [id number] ? Location: WD; 0409; A The signing pathologist has (i) examined the relevant preparation(s) for the specimen(s) and (ii) rendered or confirmed the diagnosis(es). . ?Surgical Pathology DIAGNOSIS A - Skin and soft tissue, right posterior chest wall, debridement: - Skin with scar and underlying granulation tissue with acute and chronic inflammation. Electronically signed by: ?Helen Garcia MD Verified: ??03/26/2023 10:34 ??Pathologist Performed at: ??-[facility] Dept. of Pathology, [place] [address] Ignition Expert: Tunde Smyth MD, FCAP, ??CLIA Certificate: [id number] SPECIMEN(S) SUBMITTED A - Skin and soft tissue, right posterior chest wall, debridement (1) CLINICAL INFORMATION Abscess old thoracotomy wound SPECIMEN PROCESSING A - Labeled/Fixative : Debridement right posterior chest wall, fresh. Quantity/Size: Single, 5.2 x 2.3 x 1.0 cm. Tissue Description: Grossman-bean, wrinkled skin ellipse with underlying bean, dull and rubbery subcutaneous tissue. Sections/Process ing: Fitter Type Bar And Segment sections in 1 cassette labeled A1. ??jnr 03/26/2023 10:34 AM EST [facility] SPECIMEN FROM UNSPECIFIED BODY SITE / Unknown 03/18/2023 8:20 AM EST 03/18/2023 8:20 AM EST Jose Alvarez MD PATHOLOGY/CYTOLOGY O RDERABLES [facility] [place] [id number] [facility] [place] [address] * (ABNORMAL) Body Fluid Culture, Aerobic (03/17/2023 11:45 AM EST) Body Fluid Culture Many Staphylococcus aureus(A) [facility] Gram Stain Many Neutrophils seen Many Gram Positive Cocci seen (A) [facility] Organism Staphylococcus aureus(A) [facility] Organism Gram Positive Cocci(A) [facility] Fluid 03/17/2023 11:4 5 AM EST 03/17/2023 12:46 PM EST Comment:Abscess Narrative Resulting Agency Comment Spec In Lab Organism Antibiotic Method Susceptibility Staphylococcus aureus Clindamycin VITEK 2 METHOD Sensitive Staphylococcus aureus Erythromycin VITEK 2 METHOD Sensitive Staphylococcus aureus Gentamicin VITEK 2 METHOD Sensitive Comment:Gentamicin i s not appropriate for Taylor-therapy. Staphylococcus aureus Oxacillin VITEK 2 METHOD Sensitive [...] Rodriguez MD MICROBIOLOGY - GENER AL ORDERABLES [facility] [address] * L-Lactate2 Whole Blood (03/17/2023 11:13 AM EST) Lactate WB 1.5 0.5 - 2.2 mmol/L [facility] Blood 03/17/2023 11:1 3 AM EST 03/17/2023 11:13 AM EST Jose Alvarez MD CHEMISTRY ORDERABLES [facility] [address] * Differential, Automated (03/17/2023 11:06 AM EST) Neutrophil % 74.9 % [facility] Neutrophil Absolute 5.59 1.70 - 6.10 x10(3)/[facility] Lymph % 15.7 % [facility] Lymphocytes Abs 1.2 0.9 - 3.2 x10(3)/[facility] Monocyte % 7.9 % [facility] Monocyte Abs 0.6 0.3 - 0.9 x10(3)/[facility] Eos % 0.3 % [facility] Eosinophils Abs 0.0 0.0 - 0.4 x10(3)/[facility] Basophil % 0.8 % [facility] Baso Absolute 0.1 0.0 - 0.1 x10(3)/[facility] Immature Gran % 0.40 % [facility] Comment: Immature granulocytes(IG's)percentage and absolute count will include metamyelocytes, myelocytes, and promyelocytes. Blood smears from CBCs yielding IG's will be scanned manually for concordance. If this scan disagrees with the automated IG or if promyelocytes are noted, a manual differential will be performed. Immature Gran Absolute 0.03 0.00 - 0.04 x10(3)/[facility] Blood 03/17/2023 11:0 6 AM EST 03/17/2023 11:14 AM EST Narrative Resulting Agency Comment Spec In Lab Becca Tovar MD HEMATOLOGY ORDERABLE S [facility] [address] * (ABNORMAL) Hemogram (03/17/2023 11:06 AM EST) White Blood Cell 7.5 4.0 - 9.5 x10(3)/mc L [facility] Red Blood Cell 6.86(H) 4.58 - 5.54 x10(6)/mc L [facility] Hemoglobin 13.9 13.7 - 16.5 g/dL [facility] Hematocrit 46.0 40.5 - 48.5 % [facility] Mean Cell Volume 67.1(L) 82.9 - 93.1 fL [facility] Mean Cell Hemoglobin 20.3(L) 27.5 - 32.1 pg [facility] Mean Cell Hemoglobin Concentration 30.2(L) 32.0 - 35.7 g/dL [facility] Platelet 302 145 - 357 x10(3)/mc L [facility] RDW Standard Deviation 37.2 36.0 - 45.0 fL [facility] RDW coefficient of variation 17.3(H) 11.4 - 13.8 % [facility] Mean Platelet Volume 9.8 7.6 - 12.9 fL [facility] NRBC% auto 0.0 % [facility] NRBC Absolute 0.000 0.000 - 0.000 x10(3)/mc L [facility] Blood 03/17/2023 11:0 6 AM EST 03/17/2023 11:14 AM EST Narrative Resulting Agency Comment Spec In Lab Becca Tovar MD HEMATOLOGY ORDERABLE S Performing Organization Address City/[facility]/ZIP Co de Phone Number [facility] [address] * (ABNORMAL) Sedimentation rate (03/17/2023 11:06 AM EST) Sedimentation Rate Automated >119(H) 2 - 37 mm/hr [facility] Comment: Effective March 19, 2019 new capillary photometric technology has resulted in a change in reference ranges. It is recommended that each ESR result be reviewed with its own age appropriate reference range. Blood 03/17/2023 11:0 6 AM EST 03/17/2023 11:14 AM EST Narrative Resulting Agency Comment Spec In Lab Jose Alvarez MD HEMATOLOGY ORDERABLE S [facility] [place] [address] * (ABNORMAL) CRP, acute inflammation (03/17/2023 11:06 AM EST) C-Reactive Protein 112.8(H) <=4.9 mg/L [facility] Blood 03/17/2023 11:0 6 AM EST 03/17/2023 11:14 AM EST Narrative Resulting Agency Comment Spec In Lab Jose Alvarez MD CHEMISTRY ORDERABLES [facility] [place] [address] * Basic Metabolic Panel (non-fasting) (03/17/2023 11:06 AM EST) Glucose 93 65 - 199 mg/dL [facility] Comment:Diabetes: >=200 mg/d L plus symptoms Blood Urea Nitrogen 12 10 - 20 mg/dL [facility] Creatinine 0.99 0.80 - 1.50 mg/dL [facility] Sodium 136 135 - 145 mmol/L [facility] Potassium 4.3 3.5 - 5.0 mmol/L [facility] Comment: Please note: ??Patients with WBC >100,000 may have falsely elevated Potassium levels. ??For accurate Potassium quantification in these patients send serum separator tube (gold top) for subsequent determinations. ??Contact the Clinical Chemistry Laboratory if there are any questions. Chloride 100 98 - 107 mmol/L [facility] Carbon Dioxide 22 22 - 31 mmol/L [facility] Anion Gap 14 5 - 15 mmol/L [facility] Calcium 9.5 8.5 - 10.5 mg/dL [facility] Est Glomerular Filtration Rate 83 >=60 mL/min/1. 73 m?? [facility] Comment: This patient's estimated GFR was [...] In Lab Jose Alvarez MD CHEMISTRY ORDERABLES [facility] [place] [address] documented in this encounter Visit Diagnoses Not [...] Adam RN) 0052 (Given - Provider: Cindy Bonilla, EVER)0521 (Given - Provider: Cindy Bonilla RN)1112 (Given [...] injection 5,000 Units (COMPLETED) 5,000 Units, Subcutaneous, CERTIFIED SURGICAL FIRST ASSISTANT TO O.R., 1 dose, On Sun03/18/23 at 0830, Please administer construction worker to OR, prior to procedure, thank you, [...] - Reason: Transfer to a Procedural area)0922 (MAR Unhold - Provider: Admin Adt)1614 (Given - [...] Admin Adt)0942 (Given - Provider: Madison Adam RN)214 (Given - Provider: Cindy Bonilla RN) 09 [...] PRN, Starting on 03/18/23 at 0815, Until Tu03/20/23 at 1420, Intra-Operative (Intra-Procedure), Routine 0815 (Given [...] PRN, Starting on 03/17/23 at 2123, Until Tu03/20/23 at 1420, flush, Flush pertains to all indwelling lines. Flush per protocol found in the job aid using the link provided on this medication record., Recovery (Recovery-Hospital Unit), Routine documented in this encounter Care Teams Housekeeping Director Relationship Specialty Start Date End Date Christiana Moore APRN [address] [place] [address] PCP - General Family Medicine 09/26/19 documented as of this encounter
--- OUTSIDE RECORDS SUMMARY | 2024-01-22 13:24 | XMS_ITS | Encounter Summary ---
Author Organization [facility] [place] [address] Care Team Providers Care Incubator Tender Name Role Phone Oscar Christiana DAVIS Primary Care Provider [phone] Reason for Visit * Reason Comments Follow-up Wound Infection Wound Check Encounter Details Date Type Department Care Team (Late st Contact Info) Description 04/03/2023 10:00 AM EST Office [place] [address] Jose Alvarez MD [facility] [place] [address] Complicated wound infection; Open wound of right [...] Follow Up Note MD Belle Nance PA-C [place], [place] [address] FAX: Pre Op Dx: Mediastinal Mass Post [...] PM EDT Office [place] [address] Manjula Kitchen MD [facility] [address] documented as of this encounter Visit Diagnoses Diagnosis Complicated wound infection Open wound of right chest wall with complication, subsequent encounter documented in this encounter Care Teams Incubator Tender Relationship Specialty Start Date End Date Christiana Moore APRN [address] [place] [address] PCP - General Family Medicine 09/26/19 documented as of this encounter
--- OUTSIDE RECORDS SUMMARY | 2024-01-22 13:24 | XMS_ITS | Encounter Summary ---
[place] [address] Care Team Providers Care Cat Scan Tech Name Role Phone Christiana Moore RYAN Primary Care Provider [phone] Encounter Details Date Type Department Care Team (Late st Contact Info) Description 07/10/2023 Telephone [place] [address] Tim Mcginnis Social History Tobacco Use Types [...] ----- Caller name: Self Call back number: [phone] Reason for call: Patient is requesting a call back from the office to schedule an appointment. Please call to advise. documented in this encounter Plan of Treatment Upcoming Encounters Date Type Department Care Team (Late st Contact Info) Description 02/08/2024 1:00 PM EDT Office Visit [place] [address] Manjula Kitchen MD [facility] [place] [address] documented as of this encounter Visit Diagnoses Not on filedocumented in this encounter Care Teams Cat Scan Tech Relationship Specialty Start Date End Date Christiana Moore APRN [address] [place] [address] PCP - General Family Medicine 09/26/19 documented as of this encounter
--- OUTSIDE RECORDS SUMMARY | 2024-01-22 13:24 | XMS_ITS ---
Author Organization [facility] [place] [address] Care Team Providers Care Malt Roaster Name Role Phone Christiana Moore APRN Primary Care Provider [phone] Active Problems Patient Care Coordination No te Formatting of this note migh t be different from the original. [facility] 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 Past Plans No past plan information found. Radiation Treatments * No radiation treatments are documented for this patient in [facility]. Treatments may have been administered in another system. Lifetime Dose Tracking * Chemical Lifetime Dose Automatic Entry Manual Entr y DLP (Dose Length Product) 372 mGy-cm 372 mGy-cm 0 mGy-cm CTDI (CT Dose Index) Min 10.4 mGy 10.4 mGy 0 m Gy CTDI (CT Dose Index) Max 10.4 mGy 10.4 mGy 0 m Gy
--- OUTSIDE RECORDS SUMMARY | 2024-01-22 13:24 | XMS_ITS | Encounter Summary ---
Author Organization [facility] [place] [address] Care Team Providers Care Counter Top Maker Name Role Phone Christiana Moore RYAN Primary Care Provider [phone] Reason for Referral * Diagnostic Test (STAT) - Closed Specialty Diagnoses / Procedures Referred By Contac t Referred To Contact Radiology Diagnoses Chest wall abscess Procedures CT Chest w Contrast Todd Alvarez, PA [facility] [place] [place] [address] [facility] [place] [address] Referral ID Status Reason Start Date Expiration Date V isits Requested Visits Authorized [id number] Closed Specialty Service Requested 03/14/2023 09/12/2024 1 1 Reason for Visit * Auth/Cert Specialty Diagnoses / Procedures Referred By Contac t Referred To Contact Diagnoses Complicated wound infection Procedures ER MICAELAI Quentin Carlin MD [facility] [place] [address] [facility] Referral ID Status Reason Start Date Expiration Date Visits Re quested Visits Authorized [id number] 1 1 Encounter Details Date Type Department Care Team (Latest Contact Info) Description 03/14/2023 3:04 PM EST - 03/14/2023 11:59 PM EST Hospital [place] [address] Quentin Carlin MD [facility] [place] [address] Chest wall abscess Discharge Disposition: Home Social [...] PM EDT Office [place] [address] Manjula Kitchen MD [facility] [place] [address] documented as of this encounter Procedures Procedure [...] who have questions please contact the health care management assistant that requested your imaging first. ? Electronically signed by: Jing Hudson MD, [facility] ([phone]), at 03/14/2023 5:36 PM Narrative 03/14/2023 5:36 [...] patients who have questions please contactthe health care management assistant that requested your imaging first. Quentin Carlin [...] mLs documented in this encounter Care Teams Counter Top Maker Relationship Specialty Start Date End Date Christiana Moore APRN [address] [place] [address] PCP - General Family Medicine 09/26/19 documented as of this encounter
--- OUTSIDE RECORDS SUMMARY | 2024-01-22 13:24 | XMS_ITS | Encounter Summary ---
Author Organization [facility] [place] [place] [address] Care Team Providers Care Lining Finisher Name Role Phone Christiana Moore APRN Primary Care Provider [phone] Encounter Details Date Type Department Care Team [...] PM EDT Office [place] [address] Manjula Kitchen MD [facility] [place] [address] documented as of this encounter Visit Diagnoses Not on filedocumented in this encounter Care Teams Lining Finisher Relationship Specialty Start Date End Date Christiana Moore APRN [address] [place] [address] PCP - General Family Medicine 09/26/19 documented as of this encounter
--- OUTSIDE RECORDS SUMMARY | 2024-01-22 13:24 | XMS_ITS | Encounter Summary ---
Author Organization [facility] [place] [address] Care Team Providers Care Fountain Worker Name Role Phone Christiana Moore APRN Primary Care Provider [phone] Encounter Details Date Type Department Care Team (Late st Contact Info) Description 03/21/2023 Telephone [place] [phone] Clarissa Murphy, RN Social History Tobacco Use [...] PM EDT Office [place] [address] Manjula Kitchen MD [facility] [place] [address] documented as of this encounter Visit Diagnoses Not on filedocumented in this encounter Care Teams Fountain Worker Relationship Specialty Start Date End Date Christiana Moore APRN [address] [place] [address] PCP - General Family Medicine 09/26/19 documented as of this encounter
--- OUTSIDE RECORDS SUMMARY | 2024-01-22 13:24 | XMS_ITS | Encounter Summary ---
[place] [address] Care Team Providers Care Timber Management Assistant Name Role Phone Christiana Moore APRN Primary Care Provider [phone] Reason for Referral * Consultation (Routine) - Authorized Specialty Diagnoses / Procedures Referred By Contac t Referred To Contact General Surgery Diagnoses Diastasis recti Christiana Moore APRN [address] [place] [address] [facility] [place] [address] Referral ID Status Reason Start Date Expiration Date Visits Requested Visits Authorized [id number] Authorized Consult, Test & Treat 11/12/2023 11/11/2024 1 1 Encounter Details Date Type Department Care Team (Late st Contact Info) Description 11/12/2023 Transcribe Orders eDH Incoming Referrals [phone] Christiana Moore APRN [address] [place] [address] Diastasis recti Social History Tobacco Use Types Packs/Day Years [...] PM EDT Office [place] [address] Manjula Kitchen MD [facility] [place] [address] Scheduled Referrals Name Type Priority Associated Diagnoses Orde r Schedule Referral to General Surgery Outpatient Referral Routine Diastasis recti Ordered: 11/12/2023 documented as of this encounter Visit Diagnoses Diagnosis Diastasis recti Diastasis of muscle documented in this encounter Care Teams Timber Management Assistant Relationship Specialty Start Date End Date Christiana Moore APRN [address] [place] [address] PCP - General Family Medicine 09/26/19 documented as of this encounter
--- OUTSIDE RECORDS SUMMARY | 2024-01-22 13:24 | XMS_ITS | Encounter Summary ---
Author Organization [facility] [place] [address] Care Team Providers Care Casework Supervisor Name Role Phone OscarChristiana RYAN Primary Care Provider [phone] Reason for Visit * Auth/Cert Specialty Diagnoses / Procedures Referred By Contac t Referred To Contact Diagnoses Complicated wound infection Procedures ER Quentin Arrieta MD [facility] [place] [address] [facility] Referral ID Status Reason Start Date Expiration Date Visits Re quested Visits Authorized [id number] 1 1 Encounter Details Date Type Department Care Team (Late st Contact Info) Description 03/18/2023 7:55 AM EST Anesthesia [place] [address] Sera Capone MD [facility] DR [place] [address] Camilla Cruz CRNA [facility] DR [place] [address] Anesthesia Record Procedure Summary Procedure Name Responsible [...] upon assessment; 03/18/23; 0837 11/12/19 1100 by Flakiat Castro RN 03/18/23 0837 by Yumiko Rodriguez RN NPWT 12/09/19; chest; LDA not present upon assessment; 03/18/23; 0736 12/09/19 0000 by Janessa Campbell RN 03/18/23 0736 by Yumiko Rodriguez RN PIV 03/17/23; 1107; [id number] catheter system; 20 gauge; median cubital vein [...] Procedure Summary Date: 03/18/23 Room / Location: [facility] OR [address] [place] [address] MAIN OR Anesthesia Start: 0755 Anesthesia Stop: 08 Procedure: INCISION & DRAINAGE HEMATOMA, SEROMA OR FLD. COLLECTION, TRUNK (WRVU 1.58) (Right: Trunk) Diagnosis: (abscess old thoracotomy wound) Surgeons: Quentin Carlin MD Responsible Provider: Sera Capone MD Anesthesia Type: MAC ASA Status: 3 - Emergent All Anesthesia Providers: Anesthesiologist: Sera Capone MD EMPLOYEE DEVELOPMENT SPECIALIST: Camilla Cruz CRNA Vitals Value Taken Time BP 110/72 03/18/23 0915 Temp 36.6 ??C (97.9 ??F) 03/18/23 0915 Pulse 59 03/18/23 0901 Resp 16 03/18/23 0915 SpO2 97 % 03/18/23 0917 Pain Level 0 03/18/23 0915 Vitals shown include unfiled device data. Patient Location: PACU/[facility] Level of Consciousness: Awake and [...] 2.78) performed by Quentin Carlin MD at [facility] MAIN OR PRO DEBRIDEMENT MUSCLE AND FASCIA 20 SQ CM/< Right 12/09/2019 DEBRIDEMENT SKIN, SUBCU, MUSCLE, THORAX (WRVU 2.7) performed by Michael Li MD at [facility] MAIN OR PRO I&D HEMATOMA SEROMA/FLUID COLLECTION Right 11/09/2019 INCISION & DRAINAGE HEMATOMA, SEROMA OR FLD. COLLECTION, CHEST (WRVU 1.58) performed by Piyush Hobbs MD at [facility] MAIN OR PRO INCISION AND DRAINAGE COMPLEX POST OPERATIVE WOUND INFECTION Right 12/09/2019 INCISION & DRAINAGE COMPLEX POSTOPERATIVE WOUND INFECTION (WRVU 2.3) performed by Michael Li MD at [facility] MAIN OR PRO INJECTION ANES AGENT &/ STEROID INTERCOSTAL NERVE EA ADDL LEVEL Right 10/24/2019 NERVE BLOCK, INTERCOSTAL NERVE, MULTIPLE (WRVU 1.68) performed by Quentin Carlin MD at [facility] MAIN OR PRO THORACOSCOPY WITH BIOPSY OF PLEURA Right 10/24/2019 THORACOSCOPY; WITH BIOPSY(IES) OF PLEURA (WRVU 4.58) performed by Quentin Carlin MD at [facility] MAIN OR PRO THORACOTOMY WITH THERAPEUTIC WEDGE RESECTION EA ADDL Right 10/24/2019 @THORACOTOMY; W/THERAPEUTIC WEDGE RESECTION, EA ADD'L RESC, IPSILATERAL (WRVU 3) performed by Quentin Carlin MD at [facility] MAIN OR PRO THORACOTOMY WITH THERAPEUTIC WEDGE RESECTION INITIAL Right 10/24/2019 @THORACOTOMY; W/ THERAPEUTIC WEDGE RESECTION , INITIAL (WRVU 15.75) performed by Quentin Carlin MD at [facility] MAIN OR PRO THYMECTOMY, RADICAL MEDIAST DISSSEC Right 10/24/2019 @THYMECTOMY W/ RAD. MEDIASTINAL DISSECTION (WRVU 23.48) performed by Quentin Carlin MD at [facility] MAIN OR Social History Tobacco Use Smoking [...] risks discussed with patient. Plan discussed with EMPLOYEE DEVELOPMENT SPECIALIST and attending. Anesthesia Screening Code Status: Full code I discussed the risks of general anesthesia/MAC as detailed by the preoperative anesthesia consent with this patient. The patient demonstrated adequate understanding and acknowledged these risks and wishes to proceed with scheduled surgery. All questions related to anesthetic care were welcomed and answered to satisfaction. Sera Capone MD MS Anesthesiologist, [facility] Pager [phone] documented in this encounter Plan of Treatment Upcoming Encounters Date Type Department Care Team (Late st Contact Info) Description 02/08/2024 1:00 PM EDT Office [place] [address] Manjula Kitchen MD [facility] [place] [address] documented as of this encounter Visit Diagnoses [...] subcutaneous injection 5,000 Units 5,000 Units, Subcutaneous, PROGRAM CLINICIAN TO O.R., 1 dose, On 03/18/23 at 0830, Please administer operations research scientist to OR, prior to procedure, thank you, [...] mg documented in this encounter Care Teams Casework Supervisor Relationship Specialty Start Date End Date Christiana Moore APRN [address] [place] [address] PCP - General Family Medicine 09/26/19 documented as of this encounter
--- OUTSIDE RECORDS SUMMARY | 2024-01-22 13:24 | XMS_ITS | Encounter Summary ---
Author Organization [facility] [place] [address] Care Team Providers Care Inside Upholsterer Name Role Phone Christiana Moore MANAGER RETIREMENT Primary Care Provider [phone] Encounter Details Date Type Department Care Team (Late st Contact Info) Description 03/14/2023 Telephone [place] [address] Tim Mcginnis Social History Tobacco Use Types [...] PM EDT Office [place] [address] Manjula Kitchen MD [facility] [place] [address] documented as of this encounter Visit Diagnoses Not on filedocumented in this encounter Care Teams Inside Upholsterer Relationship Specialty Start Date End Date Christiana Moore APRN [address] [place] [address] PCP - General Family Medicine 09/26/19 documented as of this encounter
--- OUTSIDE RECORDS SUMMARY | 2024-01-22 13:25 | XMS_ITS | Encounter Summary ---
Author Organization [facility] [place] [address] Care Team Providers Care Tents Assembler Name Role Phone Christiana Moore RYAN Primary Care Provider [phone] Reason for Referral * Diagnostic Test (Routine) - New Request Specialty Diagnoses / Procedures Referred By Contac t Referred To Contact Radiology Diagnoses Type A malignant thymoma Procedures CT Chest wo Contrast (Generic) Jose Alvarez MD [facility] [place] [address] [facility] [place] [address] Referral ID Status Reason Start Date Expiration Date Visits Requested Visits Authorized [id number] New Request Specialty Service Requested 10/17/2022 04/19/2024 1 1 Reason for Visit * Reason Comments Follow-up Cancer Thymoma Encounter Details Date Type Department Care Team (Late st Contact Info) Description 10/17/2022 10:30 AM EDT Office [place] [address] Jose Alvarez MD [facility] [place] [address] Type A malignant thymoma Social [...] Follow Up Note MD Ramiro Nance, MS3 [facility], [place] [address] FAX: Pre Op Dx: Mediastinal Mass Post [...] 3. Call with any questions [facility] Salinas, [facility] have seen the patient and reviewed the medical student's above history. The assessment and plan were formulated in discussion with me. Please see my note for details. JOSE ALVAREZ MD * Jose Alvarez MD - 10/17/2022 10:30 AM EDT Thoracic Surgery Attending Outpatient Follow Up Note MD Ramiro Nance, MS3 [facility] [place] [address] FAX: Pre Op Dx: Mediastinal Mass Post [...] PM EDT Office [place] [address] Manjula Kitchen MD [facility] [place] [address] Scheduled Orders Name Type Priority Associated Diagnoses Orde r Schedule CT Chest wo Contrast (Generic) Imaging Routine Type A malignant thymoma Expected: 10/18/2023, Expires: 04/19/2024 documented as of this encounter Visit Diagnoses Diagnosis Type A malignant thymoma documented in this encounter Care Teams Tents Assembler Relationship Specialty Start Date End Date Christiana Moore APRN [address] [place] [address] PCP - General Family Medicine 09/26/19 documented as of this encounter
--- OUTSIDE RECORDS SUMMARY | 2024-01-22 13:25 | XMS_ITS | Encounter Summary ---
Author Organization [facility] [place] [address] Care Team Providers Care K 9 Police Officer Name Role Phone Oscar Christiana DAVIS Primary Care Provider [phone] Encounter Details Date Type Department Care Team (Late st Contact Info) Description 04/13/2020 11:30 AM EST Office [place] [address] Fatou Dong PA [facility] [place] [address] Open wound of right chest wall with [...] with dressing over the phone on Sunday [phone]. Dr. Carlin would like to see you [...] Outpatient Follow Up Note Fatou Dong PA-C [place] [address] FAX: Pre Op Dx:??mediastinal mass ?? Post [...] questions Fatou Dong PA-C 04/13/2020 Thoracic Surgery [facility] documented in this encounter Procedure Notes [...] atop. Fatou Dong PA-C 04/13/2020 Thoracic Surgery [facility] documented in this encounter Plan of Treatment Upcoming Encounters Date Type Department Care Team (Late st Contact Info) Description 02/08/2024 1:00 PM EDT Office [place] [address] Manjula Kitchen MD [facility] [place] [address] documented as of this encounter Visit Diagnoses Diagnosis Open wound of right chest wall with complication, subsequent encounter documented in this encounter Care Teams K 9 Police Officer Relationship Specialty Start Date End Date Christiana Moore APRN [address] [place] [address] PCP - General Family Medicine 09/26/19 documented as of this encounter
--- OUTSIDE RECORDS SUMMARY | 2024-01-22 13:25 | XMS_ITS | Encounter Summary ---
Author Organization [facility] [place] [address] Care Team Providers Care Fuel Cell Designer Name Role Phone Christiana Moore APRN Primary Care Provider [phone] Encounter Details Date Type Department Care Team (Late st Contact Info) Description 04/26/2020 Telephone [place] [address] Clarissa Murphy, RN Social History Tobacco Use [...] PM EDT Office [place] [address] Manjula Kitchen MD [facility] [place] [address] documented as of this encounter Visit Diagnoses Not on filedocumented in this encounter Care Teams Fuel Cell Designer Relationship Specialty Start Date End Date Christiana Moore APRN [address] [place] [address] PCP - General Family Medicine 09/26/19 documented as of this encounter
--- OUTSIDE RECORDS SUMMARY | 2024-01-22 13:25 | XMS_ITS | Encounter Summary ---
Author Organization [facility] [place] [address] Care Team Providers Care Code Enforcement Supervisor Name Role Phone Christiana Moore APRN Primary Care Provider [phone] Reason for Referral * Diagnostic Test (Routine) - Closed Specialty Diagnoses / Procedures Referred By Contac t Referred To Contact Radiology Diagnoses Type A malignant thymoma Procedures CT Chest wo Contrast (Generic) Quentin Carlin MD [facility] [place] [address] [facility] [place] [address] Referral ID Status Reason Start Date Expiration Date V isits Requested Visits Authorized [id number] Closed Specialty Service Requested 03/24/2021 09/21/2022 1 1 Reason for Visit * Diagnostic Test (Routine) - Closed Specialty Diagnoses / Procedures Referred By Contac t Referred To Contact Radiology Diagnoses Type A malignant thymoma Procedures CT Chest wo Contrast (Generic) Quentin Carlin MD [facility] [place] [address] [facility] [place] [address] Referral ID Status Reason Start Date Expiration Date V isits Requested Visits Authorized [id number] Closed Specialty Service Requested 03/24/2021 09/21/2022 1 1 Encounter Details Date Type Department Care Team (Latest Contact Info) Description 10/17/2022 9:00 AM EDT - 10/17/2022 11:59 PM EDT Hospital [place] [phone] Quentin Carlin MD [facility] DR THORACIC SURGERY [place] [id number] Type A malignant thymoma Discharge Disposition: Home [...] PM EDT Office [place] [address] Manjula Kitchen MD [facility] [place] [address] documented as of this encounter Procedures Procedure [...] who have questions please contact the health restorative care technician that requested your imaging first. ? Electronically signed by: Todd Pihcardo MD, [facility] ??([phone]), at 10/17/2022 12:27 PM Narrative 10/17/2022 12:27 PM EDT EXAMINATION: CT [...] patients who have questions please contactthe health restorative care technician that requested your imaging first. Quentin Carlin MD IMG CT ORDERABLES documented in this encounter Visit Diagnoses Diagnosis Type A malignant thymoma documented in this encounter Care Teams Code Enforcement Supervisor Relationship Specialty Start Date End Date Christiana Moore APRN [address] [place] [address] PCP - General Family Medicine 09/26/19 documented as of this encounter
--- OUTSIDE RECORDS SUMMARY | 2024-01-22 13:25 | XMS_ITS | Encounter Summary ---
Author Organization Formerly [facility] [place] [address] Care Team Providers Care Liquor Bridge Operator Helper Name Role Phone Christiana Moore RYAN Primary Care Provider [phone] Encounter Details Date Type Department Care Team (Late st Contact Info) Description 08/14/2022 [place] [phone] Ana Rosa Vazquez Social History Tobacco Use [...] PM EDT Office [place] [phone] Manjula Kitchen MD [facility] [place] [address] documented as of this encounter Visit Diagnoses Not on filedocumented in this encounter Care Teams Liquor Bridge Operator Helper Relationship Specialty Start Date End Date Christiana Moore APRN [address] [place] [address] PCP - General Family Medicine 09/26/19 documented as of this encounter
--- OUTSIDE RECORDS SUMMARY | 2024-01-22 13:25 | XMS_ITS | Encounter Summary ---
Author Organization [facility] [place] [address] Care Team Providers Care Branch Director Name Role Phone Oscar Christiana RYAN Primary Care Provider [phone] Reason for Referral * Diagnostic Test (Routine) - Closed Specialty Diagnoses / Procedures Referred By Contac t Referred To Contact Radiology Diagnoses Type A malignant thymoma Procedures CT Chest w Contrast Quentin Carlin MD [facility] [place] [address] [facility] [place] [address] Referral ID Status Reason Start Date Expiration Date V isits Requested Visits Authorized [id number] Closed Specialty Service Requested 02/24/2020 08/23/2021 1 1 Reason for Visit * Diagnostic Test (Routine) - Closed Specialty Diagnoses / Procedures Referred By Contac t Referred To Contact Radiology Diagnoses Type A malignant thymoma Procedures CT Chest w Contrast Quentin Carlin MD [facility] [place] [address] [facility] [place] [address] Referral ID Status Reason Start Date Expiration Date V isits Requested Visits Authorized [id number] Closed Specialty Service Requested 02/24/2020 08/23/2021 1 1 Encounter Details Date Type Department Care Team (Latest Contact Info) Description 10/19/2020 12:00 PM EDT - 10/19/2020 11:59 PM EDT Hospital [place] [phone] Quentin Carlin MD [facility] [place] [address] Type A malignant thymoma Discharge Disposition: Home [...] PM EDT Office [place] [address] Manjula Kitchen MD [facility] [place] [address] documented as of this encounter Procedures Procedure [...] who have questions please contact the health administrator health care facility that requested your imaging first. ? Narrative 10/19/2020 3:01 PM EDT EXAMINATION: CT CHEST W CONTRAST CLINICAL HISTORY: Thymoma, monitor, no metastases Thymoma surveillance, Eval for changes and/or new disease process TECHNIQUE: 3.0 mm thick axial contiguous sections were obtained through the chest via helical acquisition after the intravenous administration of 60 cc of Omnipaque-350. Thin-section reconstructions as well as coronal and sagittal reformatted images were generated. COMPARISON: 03/25/2020 [facility]. FINDINGS: Pulmonary parenchyma: Chain suture in [...] andsagittal reformatted images were generated. COMPARISON: 03/25/2020 [facility]. FINDINGS: Pulmonary parenchyma: Chain suture in [...] patients who have questions please contactthe health administrator health care facility that requested your imaging first. Quentin Carlin MD IMG CT ORDERABLES * [...] Intravenous, ONCE PRN, 1 dose, Starting on Sun10/19/20 at 1251, Until Sun10/19/20 at 1251, Per Protocol, Warning Vesicant/Irritant Medication , Radiology Contrast, Routine Given 10/19/2020 12:51 PM EDT 60 mLs documented in this encounter Care Teams Branch Director Relationship Specialty Start Date End Date Christiana Moore APRN [address] [place] [address] PCP - General Family Medicine 09/26/19 documented as of this encounter
--- OUTSIDE RECORDS SUMMARY | 2024-01-22 13:25 | XMS_ITS | Encounter Summary ---
[place] [address] Care Team Providers Care Toll Line Mechanic Name Role Phone Oscar Christiana RYAN Primary Care Provider [phone] Reason for Visit * Reason Comments Wound Check * Auth/Cert Specialty Diagnoses / Procedures Referred By Contac t Referred To Contact Diagnoses Chest wall abscess Open wound of right chest wall with complication wound vac filled with puss Procedures EMERGENCY OBSVO Referral ID Status Reason Start Date Expiration Date Visits Re quested Visits Authorized [id number] 1 1 Encounter Details Date Type Department Care Team (Late st Contact Info) Description 12/09/2019 10:48 AM EDT - 12/09/2019 12:45 PM EDT [place] [address] Michael Li MD [address] [place] [address] INCISION & DRAINAGE COMPLEX POSTOPERATIVE WOUND INFECTION [...] Hospital Course: Tree Lantigua was admitted to [facility] on 12/08/2019 viathe ED. He was brought [...] a nurse in the Thoracic Clinic at [phone]. After hours or on weekends or holidays please call: [phone] and ask to speak to the Thoracic Surgeon on c all. Medication: Bactrim and oxycodone was sent to [facility]. 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 Please take over the counter [...] Referral to Home Health - at DISCHARGE [[id number] CPT(R)] As directed Process Instructions: Scheduling Instructions: Comments: DOCUMENTATION FOR VNA SERVICES (INCLUDING THOSE PATIENTS WITH MEDICARE COVERAGE REQUIRING HOME VNA SERVICES AND/OR HOSPICE SERVICES) PATIENT'S LOCATION: Tree Lantigua ? [address] [place] [phone] (home) ?? Cell: Telephone Information: Mobile ?[phone] Submarine Diver's Name: Self In discussion with the attending physician, it is certified that this patient is under their care and that they, or a Nurse Practitioner,Clinical Nurse specialist or Physician Principal Law Clerk who is working directly with them, [...] (Per pt - should be at the [facility] clinic on for MD review) VAC [...] VAC dressing. ?? HOME HEALTH CARE AGENCY: [facility] ?? PHONE: [phone] FAX: [phone] Start of care: 24 to 48 hours [...] ? [address] / [place] [address] ?[phone] All VNA agencies which cover the area of patient's residence have been reviewed, either verbally carmel writing, and patient/family have chosen the home health care agency noted Questions: Agency name and contact information: [facility] Patient location post discharge: home What services are requested: Registered Nurse Start date: Responsible MD post discharge contact info: Surgery services and PCP Provider Contact Information: Primary Care Provider: Christiana Moore APRN [phone] Discharge References/Attachments: Discharge References/Attachments None For questions [...] a nurse in the Thoracic Clinic at [phone]. After hours or on weekends or holidays please call: [phone] and ask to speak to the Thoracic Surgeon on c all. Medication: Bactrim and oxycodone was sent to [facility]. 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 Please take over the counter [...] vehicle at ~1900. DC summary faxed to A. * Beena Dubose RN - 12/09/2019 6:26 PM EDTSummary: VNA ED RN/CM notified that patient is medically ready for discharge home with VNA services and WOUND VAC. He has the portable WOUND VAC with him. Spouse to drive him home. Wants to use the same agency he had: Patient requests referral to: [facility]. PHONE: [phone] FAX: [phone] Expected date of discharge: 12/09/2019 Referral routed to the Naturalization Examiner for matching with agency/vendor and to provide any required informationKathia Dubose RN (Jonas) ED RN/CM Cellphone: [phone] * Clement Damon MD - 12/09/2019 5:05 PM EDT [facility] Department of Thoracic Surgery Inpatient Post Op Check Note Patient Name: Tree Lantigua Patient : 1955 Patient Patient Location: [address] [place] [address] Attending Surgeon: ARMEN SIMON DAVID J ID: [...] ED to Hosp-Admission (Current) from 12/08/[address] [place] [address] ED to Hosp-Admission (Discharged) from 11/09/[address] [place] [address] Weight 77.1 kg (170 lb) 1 12/08/2019 [...] Damon MD 12/09/2019 Thoracic Surgery Service Pager [phone] * Clement Damon MD - 12/09/2019 8:47 AM EDT [facility] Department of Thoracic Surgery Inpatient Progress Note Patient Name: Tree Lantigua Patient : 1955 Patient Patient Location: [address] [place] [address] Attending Surgeon: ARMEN SIMON DAVID J ID: [...] to Hosp-Admission (Current) from 12/08/2019 in [facility] ED to Hosp-Admission (Discharged) from 11/09/2019 in 4 [facility] Weight 77.1 kg (170 lb) 1 12/08/2019 [...] Damon MD 12/09/2019 Thoracic Surgery Service Pager [phone] * Norma Contreras RN - 12/08/2019 11:50 PM EDT Pt arrived to the floor around 2230. AAOx4. VSS. Pt oriented to unit, room, and staff. NPO at midnight for possible OR in morning. See DocFlow for assessment. Will continue to monitor. Report received from ED, RN. documented in this encounter H&P Notes * Tree Hodge MD - 12/08/2019 8:34 PM EDT [facility] Department of Thoracic Surgery Consult Note Consultation Requested by: Armen Simon MD We are seeing Tree Lantigua today at the request of Dr. rAmen Simon MD for evaluation and advice about [...] site and tachycardia. He then presented to [facility] ED. Upon arrival, he was afebrile, tachycardic to 130s, and normotensive with expression of purulence from right back surgical site.Labs significant for mild leukocytosis to 14.5. Thoracic surgery was then consulted for management. PMH: Right anterior thymoma PSH: Past Surgical History: Procedure Laterality Date ??? PRO BRONCHOSCOPY, DIAGNOSTIC N/A 10/24/2019 BRONCHOSCOPY, DIAGNOSTIC (WRVU 2.78) performed by Quentin Carlin MD at [facility] OR ??? PRO DRAINAGE OF HEMATOMA/FLUID Right 11/09/2019 INCISION & DRAINAGE HEMATOMA, SEROMA OR FLD. COLLECTION, CHEST (WRVU 1.58) performed by Piyush Hobbs MD at [facility] MAIN OR ? ? PRO INJECTION ANES AGENT &/ STEROID INTERCOSTAL NERVE EA ADDL LEVEL Right 10/24/2019 NERVE BLOCK, INTERCOSTAL NERVE, MULTIPLE (WRVU 1.68) performed by Quentin Carlin MD at [facility] MAIN OR ??? PRO THORACOSCOPY WITH BIOPSY OF PLEURA Right 10/24/2019 THORACOSCOPY; WITH BIOPSY(IES) OF PLEURA (WRVU 4.58) performed by Quentin Carlin MD at [facility] OR ??? PRO THORACOTOMY WITH THERAPEUTIC WEDGE RESECTION EA ADDL Right 10/24/2019 @THORACOTOMY; W/THERAPEUTIC WEDGE RESECTION, EA ADD'L RESC, IPSILATERAL (WRVU 3) performed by Quentin Carlin MD at [facility] OR ??? PRO THORACOTOMY WITH THERAPEUTIC WEDGE RESECTION INITIAL Right 10/24/2019 @THORACOTOMY; W/ THERAPEUTIC WEDGE RESECTION , INITIAL (WRVU 15.75) performed by Quentin Carlin MD at [facility] OR ??? PRO THYMECTOMY, RADICAL MEDIAST DISSSEC Right 10/24/2019 @THYMECTOMY W/ RAD. MEDIASTINAL DISSECTION (WRVU 23.48) performed by Quentin Carlin MD at [facility] OR MEDS: No current facility-administered medications on [...] file Gets together: Not on file Attends muslim service: Not on file Active member of [...] and tachycardia for which he presented to [facility] ED. He is currently afebrile, tachycardic [...] If you have any questions, please page [phone]. Tree Hodge MD Thoracic Surgery, Pager [phone] 12/08/2019 8:35 PM documented in this encounter Nursing Notes * Jduy Banks, RN - 12/09/2019 2:12 PM EDT [...] give broad-spectrum antibiotics. Armen Simon MD 12/08/19 [id number] * Zeeshan Luna MD - 12/08/2019 3:51 [...] - 12/09/2019 1:29 PM EDTSummary: Operative Report [facility] Operative Note Patient Name: Tree Lantigua : [id number] MR#: [id number] Case Date: 12/09/2019 Surgeon: Surgeon(s) and Role: [...] with the resident for the entire procedure. Micheal Li MD Thoracic Surgery * Plan of [...] PM EDT Office [place] [address] Manjula Kitchen MD [facility] [place] [address] documented as of this encounter Procedures Procedure [...] Debridement Muscle And Fascia 20 Sq Cm/< ([id number]) 12/09/2019 11:44 AM EDT chest wall abscess Incision And Drainage Complex Post Operative Wound Infection ([id number]) 12/09/2019 11:44 AM EDT chest wall abscess HEMOGRAM Routine 12/09/2019 5:07 AM EDT DIFFERENTIAL, AUTOMATED Routine 12/09/2019 5:07 AM EDT HC CBC,PLT & AUTO DIFF Routine 0 5:07 AM EDT RAPID COVID-19 PCR ([facility]/APD/[facility]) STAT 12/08/2019 10:[address] CHEST [...] EDT) Anaerobic Culture No anaerobic organisms isolated [facility] Specimen from abscess (specimen) THORACIC STRUCTURE / Unknown 12/09/2019 12:34 PM EDT 12/09/2019 2:15 PM EDT Comment:RIGHT POSTERIOR LATE RAL CHEST WALL WOUND #2 Narrative Resulting Agency Comment Spec In Lab Michael Li MD MICROBIOLOGY - GENER AL ORDERABLES [facility] [place] [address] * (ABNORMAL) Abscess/Wound Aspirate Culture (12/09/2019 12:34 PM EDT) Abscess/Wound Aspirate Culture Moderate Staphylococcus aureus(A) [facility] Gram Stain Many Neutrophils seen Rare Gram Positive Cocci seen (A) [facility] Organism Staphylococcus aureus(A) [facility] Organism Gram Positive Cocci(A) [facility] Specimen from abscess (specimen) THORACIC STRUCTURE [...] Sensitive Comment:Gentamicin i s not appropriate for [place]-therapy. Staphylococcus aureus Levofloxacin VITEK 2 METHOD Sensitive [...] Li MD MICROBIOLOGY - GENER AL ORDERABLES [facility] [place] [address] * Anaerobic Culture (12/09/2019 12:34 PM EDT) Anaerobic Culture No anaerobic organisms isolated [facility] Specimen from abscess (specimen) THORACIC STRUCTURE / Unknown 12/09/2019 12:34 PM EDT 12/09/2019 2:14 PM EDT Comment:RIGHT POSTERIOR LATE RAL CHEST WALL WOUND #1 Narrative Resulting Agency Comment Spec In Lab Michael Li MD MICROBIOLOGY - GENER AL ORDERABLES Performing Organization Address City/[facility]/ZIP Co de Phone Number [facility] [place] [address] * (ABNORMAL) Abscess/Wound Aspirate Culture (12/09/2019 12:34 PM EDT) Abscess/Wound Aspirate Culture Rare Staphylococcus aureus Susceptibilities previously reported (A) [facility] Gram Stain Few Neutrophils seen No microorganisms seen. (A) [facility] Organism Staphylococcus aureus(A) [facility] Specimen from abscess (specimen) THORACIC STRUCTURE / Unknown 12/09/2019 12:34 PM EDT 12/09/2019 2:14 PM EDT Comment:RIGHT POSTERIOR LATE RAL CHEST WALL WOUND #1 Narrative Resulting Agency Comment Spec In Lab Michael Li MD MICROBIOLOGY - GENER AL ORDERABLES Performing Organization Address [facility] Co de Phone Number [facility] [place] [address] * AFB culture Other (12/09/2019 12:34 PM EDT) Acid Fast Bacilli Culture No Acid Fast Bacilli isolated [facility] Acid Fast Stain No Acid Fast Bacilli seen [facility] Specimen of unknown material (specimen) 12/09/2019 12:34 PM EDT 12/09/2019 2:15 PM EDT Comment:RIGHT POSTERIOR LATE RAL CHEST WALL WOUND #2 Narrative Resulting Agency Comment Spec In Lab Quentin Carlin MD MICROBIOLOGY - GENER AL ORDERABLES Performing Organization Address [facility] Co de Phone Number [facility] [place] [address] * Fungus culture Abscess (12/09/2019 12:34 PM EDT) Fungus Culture No Fungus isolated [facility] Specimen from abscess (specimen) 12/09/2019 12:34 PM EDT 12/09/2019 2:15 PM EDT Comment:RIGHT POSTERIOR LATE RAL CHEST WALL WOUND #2 Narrative Resulting Agency Comment Spec In Lab Quentin Carlin MD MICROBIOLOGY - GENER AL ORDERABLES Performing Organization Address City/[facility] Co de Phone Number [facility] [place] [address] * AFB culture Other (12/09/2019 12:34 PM EDT) Acid Fast Bacilli Culture No Acid Fast Bacilli isolated [facility] Acid Fast Stain No Acid Fast Bacilli seen [facility] Specimen of unknown material (specimen) 12/09/2019 12:34 PM EDT 12/09/2019 2:14 PM EDT Comment:RIGHT POSTERIOR LATE RAL CHEST WALL WOUND #1 Narrative Resulting Agency Comment Spec In Lab Quentin Carlin MD MICROBIOLOGY - GENER AL ORDERABLES Performing Organization Address [facility]/ZIP Co de Phone Number [facility] [place] [address] * Fungus culture Abscess (12/09/2019 12:34 PM EDT) Fungus Culture No Fungus isolated [facility] Specimen from abscess (specimen) 12/09/2019 12:34 PM EDT 12/09/2019 2:14 PM EDT Comment:RIGHT POSTERIOR LATE RAL CHEST WALL WOUND #1 Narrative Resulting Agency Comment Spec In Lab Quentin Carlin MD MICROBIOLOGY - GENER AL ORDERABLES Performing Organization Address City/[facility]/ZIP Co de Phone Number [facility] [place] [address] * (ABNORMAL) Differential, Automated (12/09/2019 5:07 AM EDT) Neutrophil % 65.1 % [facility] Neutrophil Absolute 5.83 1.70 - 6.10 x10(3)/mc L [facility] Lymph % 17.7 % [facility] Lymphocytes Abs 1.6 0.9 - 3.2 x10(3)/mc L [facility] Monocyte % 11.8 % [facility] Monocyte Abs 1.1(H) 0.3 - 0.9 x10(3)/mc L [facility] Eos % 3.5 % [facility] Eosinophils Abs 0.3 0.0 - 0.4 x10(3)/[facility] Basophil % 0.7 % [facility] Baso Absolute 0.1 0.0 - 0.1 x10(3)/[facility] Immature Gran % 1.20 % [facility] Comment: Immature granulocytes(IG's)percentage and absolute count will include metamyelocytes, myelocytes, and promyelocytes. Blood smears from CBCs yielding IG's will be scanned manually for concordance. If this scan disagrees with the automated IG or if promyelocytes are noted, a manual differential will be performed. Immature Gran Absolute 0.11(H) 0.00 - 0.04 x10(3)/[facility] Blood specimen (specimen) 12/09/2019 5:07 AM EDT 12/09/2019 5:24 AM EDT Narrative Resulting Agency Comment Spec In Lab Bill Shelton MD HEMATOLOGY ORDERAB LES [facility] [place] [address] * (ABNORMAL) Hemogram (12/09/2019 5:07 AM EDT) White Blood Cell 9.0 4.0 - 9.5 x10(3)/[facility] Red Blood Cell 5.23 4.58 - 5.54 x10(6)/[facility] Hemoglobin 10.2(L) 13.7 - 16.5 gm/dL [facility] Hematocrit 34.5(L) 40.5 - 48.5 % [facility] Mean Cell Volume 66.0(L) 82.9 - 93.1 fL [facility] Mean Cell Hemoglobin 19.5(L) 27.5 - 32.1 pg [facility] Mean Cell Hemoglobin Concentration 29.6(L) 32.0 - 35.7 gm/dL [facility] Platelet 256 145 - 357 x10(3)/mc L [facility] RDW Standard Deviation 39.6 36.0 - 45.0 fL [facility] RDW coefficient of variation 17.1(H) 11.4 - 13.8 % [facility] Mean Platelet Volume 9.8 7.6 - 12.9 fL [facility] NRBC% auto 0.0 % [facility] NRBC Absolute 0.000 0.000 - 0.000 x10(3)/mc L [facility] Blood specimen (specimen) 12/09/2019 5:07 AM EDT 12/09/2019 5:24 AM EDT Narrative Resulting Agency Comment Spec In Lab Bill Shelton MD HEMATOLOGY ORDERAB LES Performing Organization Address City/State/[facility] Co de Phone Number [facility] [place] [phone] * COVID-19 PCR (12/08/2019 10:20 PM EDT) SARS-CoV-2 RNA (Rapid) Not Detected Not Detected [facility] Comment: This result should be interpreted [...] using the Simplexa COVID-19 Direct Assay by Keep[employer] as authorized by the FDA issued Emergency [...] Department of Pathology and Laboratory Medicine at [facility], certified under the Clinical Laboratory Improvement Amendments [...] Information for Healthcare Professionals (https://www.cdc.gov/coronavirus/2019-ncov/hcp/index.html). SARS-CoV-2 Source SENIOR [employer] DEVELOPER [employer] [facility] Nasopharyngeal swab (specimen) 12/08/2019 10:20 PM EDT 12/08/2019 10:57 PM EDT Comment:Symptoms->Surveillan ce Narrative Resulting Agency Comment Spec In Lab Armen Simon MD MICROBIOLOGY - GEN ERAL ORDERABLES [facility] [place] [address] * CT Chest w Contrast (12/08/2019 8:54 [...] please contact the number below. ? Narrative 12/08/2019 9:16 PM EDT EXAMINATION: CT [...] report, please contact the number below. Armen Simon MD IMG CT ORDERABLES * Anaerobic Culture (12/08/2019 8:30 PM EDT) Anaerobic Culture No anaerobic organisms isolated [facility] Specimen from abscess (specimen) STRUCTURE OF BACK OF TRUNK / Unknown 12/08/2019 8:30 PM EDT 12/08/2019 8:46 PM EDT Comment:RIGHT BACK/SHOULDER INCISION Narrative Resulting Agency Comment Spec In Lab Tree Hodge MD MICROBIOLOGY - GENER AL ORDERABLES [facility] [place] [address] * (ABNORMAL) Abscess/Wound Aspirate Culture (12/08/2019 8:30 PM EDT) Abscess/Wound Aspirate Culture Many Staphylococcus aureus(A) [facility] Gram Stain Many Neutrophils seen Rare Gram Positive Cocci seen (A) [facility] Organism Staphylococcus aureus(A) [facility] Organism Gram Positive Cocci(A) [facility] Specimen from abscess (specimen) STRUCTURE OF [...] Sensitive Comment:Gentamicin i s not appropriate for [place]-therapy. Staphylococcus aureus Levofloxacin VITEK 2 METHOD Sensitive [...] METHOD Sensitive Tree Hodge MD MICROBIOLOGY - [facility] [place] [address] * Blood culture (12/08/2019 4:11 PM EDT) Blood Culture No growth at 5 days. [facility] Blood specimen (specimen) 12/08/2019 4:11 PM EDT 12/08/2019 6:22 PM EDT Narrative Resulting Agency Comment Spec In Lab Portillo Trejo MD MICROBIOLOGY - BLOO D ORDERABLES [facility] [place] [address] * Scan, Peripheral Blood (12/08/2019 3:58 PM EDT) Plat estimate Normal [facility] RBC Morphology Abnormal [facility] Microcyte 1-5 /HPF [facility] Hypochromia Slight [facility] Polychromasia Present >5/HPF [facility] Target Cells 1-5 /HPF [facility] Blood specimen (specimen) 12/08/2019 3:58 PM EDT 12/08/2019 5:02 PM EDT Narrative Resulting Agency Comment Spec In Lab Bart CROWELL HEMATOLOGY ORDERABLE S [facility] [place] [address] * Aguilar Tube Hold (12/08/2019 3:58 PM EDT) Aguilar Hold Sample in lab. [facility] Blood specimen (specimen) Venous Draw / Unknown 12/08/2019 3:58 PM EDT 12/08/2019 5:03 PM EDT Bart CROWELL CHEMISTRY ORDERABLES [facility] [place] [address] * Gold Tube HOLD (12/08/2019 3:58 PM EDT) Gold Hold Sample in lab. [facility] Blood specimen (specimen) Venous Draw / Unknown 12/08/2019 3:58 PM EDT 12/08/2019 5:03 PM EDT Bart CROWELL CHEMISTRY ORDERABLES Performing Organization Address City/[facility]/ZIP Co de Phone Number [facility] [place] [address] * Blue Tube HOLD (12/08/2019 3:58 PM EDT) Pathologist [facility] Blue Hold Sample in lab. [facility] Blood specimen (specimen) Venous Draw / Unknown 12/08/2019 3:58 PM EDT 12/08/2019 5:03 PM EDT Bart CROWELL HEMATOLOGY ORDERABLE S Performing Organization Address [facility] [place] [address] * (ABNORMAL) Differential, Automated (12/08/2019 3:58 PM EDT) [facility] Neutrophil % 78.0 % [facility] Neutrophil Absolute 11.28(H) 1.70 - 6.10 x10(3)/mc L [facility] Lymph % 11.5 % [facility] Lymphocytes Abs 1.7 0.9 - 3.2 x10(3)/mc L [facility] Monocyte % 7.9 % [facility] Monocyte Abs 1.1(H) 0.3 - 0.9 x10(3)/mc L [facility] Eos % 0.7 % [facility] Eosinophils Abs 0.1 0.0 - 0.4 x10(3)/mc L [facility] Basophil % 0.6 % [facility] Baso Absolute 0.1 0.0 - 0.1 x10(3)/mc L [facility] Immature Gran % 1.30 % [facility] Comment: Immature granulocytes(IG's)percentage and absolute count will include metamyelocytes, myelocytes, and promyelocytes. Blood smears from CBCs yielding IG's will be scanned manually for concordance. If this scan disagrees with the automated IG or if promyelocytes are noted, a manual differential will be performed. Immature Gran Absolute 0.19(H) 0.00 - 0.04 x10(3)/[facility] Blood specimen (specimen) 12/08/2019 3:58 PM EDT 12/08/2019 5:02 PM EDT Narrative Resulting Agency Comment Spec In Lab Bart CROWELL HEMATOLOGY ORDERABLE S [facility] [place] [address] * (ABNORMAL) Hemogram (12/08/2019 3:58 PM EDT) White Blood Cell 14.5(H) 4.0 - 9.5 x10(3)/[facility] Red Blood Cell 6.62(H) 4.58 - 5.54 x10(6)/[facility] Hemoglobin 12.9(L) 13.7 - 16.5 gm/dL [facility] Hematocrit 43.0 40.5 - 48.5 % [facility] Mean Cell Volume 65.0(L) 82.9 - 93.1 [facility] Mean Cell Hemoglobin 19.5(L) 27.5 - 32.1 pg [facility] Mean Cell Hemoglobin Concentration 30.0(L) 32.0 - 35.7 gm/dL [facility] Platelet 328 145 - 357 x10(3)/[facility] RDW Standard Deviation 38.8 36.0 - 45.0 [facility] RDW coefficient of variation 18.6(H) 11.4 - 13.8 % [facility] Mean Platelet Volume 10.1 7.6 - 12.9 [facility] NRBC% auto 0.0 % [facility] NRBC Absolute 0.000 0.000 - 0.000 x10(3)/[facility] Blood specimen (specimen) 12/08/2019 3:58 PM EDT 12/08/2019 5:02 PM EDT Narrative Resulting Agency Comment Spec In Lab Bart CROWELL HEMATOLOGY ORDERABLE S Performing Organization Address [facility]/ZIP Co de Phone Number [facility] [place] [address] * (ABNORMAL) Sedimentation rate (12/08/2019 3:58 PM EDT) Pathologist [facility] Sedimentation Rate Automated >119(H) 2 - 37 mm/hr [facility] Comment: Effective March 19, 2019 new capillary photometric technology has resulted in a change in reference ranges. It is recommended that each ESR result be reviewed with its own age appropriate reference range. Blood specimen (specimen) 12/08/2019 3:58 PM EDT 12/08/2019 5:02 PM EDT Narrative Resulting Agency Comment Spec In Lab Portillo Trejo MD HEMATOLOGY ORDERABL ES Performing Organization Address [facility] Co de Phone Number [facility] [place] [address] * (ABNORMAL) CRP, acute inflammation (12/08/2019 3:58 PM EDT) [facility] C-Reactive Protein 134.3(H) <=4.9 mg/L [facility] Blood specimen (specimen) 12/08/2019 3:58 PM EDT 12/08/2019 5:02 PM EDT Narrative Resulting Agency Comment Spec In Lab Portillo Trejo MD CHEMISTRY ORDERABLE S Performing Organization Address [facility]/ZIP Co de Phone Number [facility] [place] [address] * (ABNORMAL) Basic Metabolic Panel (non-fasting) (12/08/2019 3:58 PM EDT) [facility] Signature Glucose 115 65 - 199 mg/dL [facility] Comment:Diabetes: >=200 mg/d L plus symptoms Blood Urea Nitrogen 11 10 - 20 mg/dL [facility] Creatinine 0.83 0.80 - 1.50 mg/dL [facility] Sodium 136 135 - 145 mmol/L [facility] Potassium 4.0 3.5 - 5.0 mmol/L [facility] Comment: Please note: ??Patients with WBC >100,000 may have falsely elevated Potassium levels. ??For accurate Potassium quantification in these patients send serum separator tube (gold top) for subsequent determinations. ??Contact the Clinical Chemistry Laboratory if there are any questions. Chloride 95(L) 98 - 107 mmol/L [facility] Carbon Dioxide 27 22 - 31 mmol/L [facility] Anion Gap 14 5 - 15 mmol/L [facility] Calcium 9.7 8.5 - 10.5 mg/dL [facility] Est Glomerular Filtration Rate 92 >=60 mL/min/1. 73 m?? [facility] Comment: The eGFR was calculated using the CKD-EPI equation. As with all creatinine based estimates of kidney function, eGFR values calculated with the CKD-EPI equation are not accurate in patients with acute kidney failure, extremes of body mass or the acutely ill. http://[employer]/DHMCnkf eGFR 107 >=60 mL/min/1. 73 m?? [facility] Comment: The eGFR was calculated using the CKD-EPI equation. As with all creatinine based estimates of kidney function, eGFR values calculated with the CKD-EPI equation are not accurate in patients with acute kidney failure, extremes of body mass or the acutely ill. http://[employer]/DHMCnkf Blood specimen (specimen) 12/08/2019 3:58 PM EDT 12/08/2019 5:02 PM EDT Narrative Resulting Agency Comment Spec In Lab Portillo Trejo MD CHEMISTRY ORDERABLE S [facility] [place] [address] documented in this encounter Visit Diagnoses Not [...] on Sun12/08/19 at 2046, Until Sun12/08/19 at 2053, Per Protocol, Warning Vesicant/Irritant Medication , Radiology [...] or Suspected): Skin/Skin Structure New Bag 12/09/2019 5:15 PM EDT 1,250 [...] , Routine, Indication for (Active or Suspected): Bacteremia/Sepsis / Post op wound infection New Bag 12/08/2019 11:55 PM EDT 2 g 250 mL/hr Vancomycin Level - [facility] Order Reminder NOT APPLICABLE, PER PHARMACY, Other, [...] Sun12/09/19 at 2100, Until Discontinued, Routine 1145 ([facility] Hold - Provider: Admin Adt - Reason: [...] Provider: Renato Sheth)1628 (Stopped - Provider: Renato T Head) oxyCODONE (Roxicodone) tablet 5 mg (COMPLETED) 5 mg, Oral, ONCE, 1 dose, On Sun12/09/19 at 0230, Routine 0222 (Given - Provid er: Norma Contreras, RN) Pharmacist-Managed Order(Linked Group 1) As Instructed, [...] Structure 0221 (New Bag - Provider: Norma Contreras, RN)0621 (Stopped - Provider: Norma Contreras, RN)0933 (New Bag - Provider: Eva Prater RN)1143 (Handoff - Provider: Emmie Barcenas)1145 (MAR Hold - Provider: Admin Adt - Reason: Transfer to a Procedural area)1318 (Stopped - Provider: Quentin Aranda CRNA)1400 (Automatically Held - Provider: Admin Adt)1527 (MAR Unhold - Provider: Admin Adt) piperacillin-tazobactam [...] Contreras RN) 0933 (Given - Provider: Eva Prater RN) vancomycin 1.25 g sodium in chloride 0.9% [...] Indication for (Active or Suspected): Skin/Skin Structure 1145 (MAR Hold - Provider: Admin Adt [...] , Routine, Indication for (Active or Suspected): Bacteremia/Sepsis / Post op wound infection 2355 (New Bag - Provider: Norma Contreras [...] RN)0934 (Given - Provider: Eva Prater RN)1145 ([facility] Hold - Provider: Admin Adt - Reason: Transfer to a Procedural area)134 ([facility] Unhold - Provider: Darren Bennett MD) acetaminophen [...] - Reason: Transfer to a Procedural area)1349 ([facility] Unhold - Provider: Judy Banks RN)184 (Given - Provider: Eva Prater RN) iohexoL (OMNIPAQUE) 350 mg/mL solution 0-200 mL (COMPLETED) 0-200 mL, Intravenous, ONCE PRN, 1 dose, Starting on Sun12/08/19 at 2046, Until Sun12/08/19 at 205, Per Protocol, Warning Vesicant/Irritant Medication , Radiology Contrast, Routine 2053 (Given - Provider: Crystal Nova) lidocaine (XYLOCAINE) [...] area)1403 (Given - Provider: Judy Banks RN)1527 ([facility] Unhold - Provider: Admin Adt) senna (Senokot) [...] Recovery (Recovery-Hospital Unit), Routine Vancomycin Level - [facility] Order Reminder(Linked Group 2) NOT APPLICABLE, PER [...] - Reason: Transfer to a Procedural area)1527 ([facility] Unhold - Provider: Admin Adt) Linked Groups [...] , Routine, Indication for (Active or Suspected): Bacteremia/Sepsis / Post op wound infection And Vancomycin Level - MAR Order ReminderJump [...] draw. documented in this encounter Care Teams Toll Line Mechanic Relationship Specialty Start Date End Date Christiana Moore APRN [address] [place] [address] PCP - General Family Medicine 09/26/19 documented as of this encounter
--- OUTSIDE RECORDS SUMMARY | 2024-01-22 13:25 | XMS_ITS | Encounter Summary ---
Author Organization [facility] [place] [address] Care Team Providers Care Program Coordinator Executive Education Name Role Phone Christiana Moore RYAN Primary Care Provider [phone] Reason for Visit * Auth/Cert Specialty Diagnoses / Procedures Referred By Contac t Referred To Contact Diagnoses Chest wall abscess Open wound of right chest wall with complication wound vac filled with puss Procedures EMERGENCY OBSVO Referral ID Status Reason Start Date Expiration Date Visits Re quested Visits Authorized [id number] 1 1 Encounter Details Date Type Department Care Team (Late st Contact Info) Description 12/09/2019 11:43 AM EDT Anesthesia Event [place] [address] Jesus Lozada MD [facility] [place] [address] Emmie Barcenas Anesthesia Record Procedure Summary Procedure [...] Flakita Castro I, EVER 03/18/23 0837 by Yumiko Rodriguez, RN (RETIRED) Peripheral IV Line - [...] Procedure Summary Date: 12/09/19 Room / Location: [facility] OR [address] [place] [address] MAIN OR Anesthesia Start: 1143 Anesthesia Stop: 1324 Procedures: INCISION & DRAINAGE COMPLEX POSTOPERATIVE WOUND INFECTION (WRVU 2.3) (Right ) DEBRIDEMENT SKIN, SUBCU, MUSCLE, THORAX (WRVU 2.7) (Right Chest) Diagnosis: (chest wall abscess) Surgeon: Michael Li MD Responsible Provider: Jesus Lozada MD Anesthesia Type: general ASA Status: 2 All Anesthesia Providers: Anesthesiologist: Jesus Lozada MD FISH CUTTER: Quentin Aranda CRNA Student Nurse Salad Bar Clerk: Emmie Barcenas Vitals Value Taken Time BP 131/88 12/09/19 1415 Temp 36.4 ??C (97.5 ??F) 12/09/19 1415 Pulse 87 12/09/19 1419 Resp 18 12/09/19 1419 SpO2 95 % 12/09/19 1503 Pain Level 5 12/09/19 1403 Vitals shown include unvalidated device data. [facility] Level of Consciousness: Awake and Alert Pain [...] 2.78) performed by Quentin Carlin MD at [facility] OR ??? PRO DRAINAGE OF HEMATOMA/FLUID Right 11/09/2019 INCISION & DRAINAGE HEMATOMA, SEROMA OR FLD. COLLECTION, CHEST (WRVU 1.58) performed by Piyush Hobbs MD at [facility] MAIN OR ? ? PRO INJECTION ANES AGENT &/ STEROID INTERCOSTAL NERVE EA ADDL LEVEL Right 10/24/2019 NERVE BLOCK, INTERCOSTAL NERVE, MULTIPLE (WRVU 1.68) performed by Quentin Carlin MD at [facility] OR ??? PRO THORACOSCOPY WITH BIOPSY OF PLEURA Right 10/24/2019 THORACOSCOPY; WITH BIOPSY(IES) OF PLEURA (WRVU 4.58) performed by Quentin Carlin MD at [facility] OR ??? PRO THORACOTOMY WITH THERAPEUTIC WEDGE RESECTION EA ADDL Right 10/24/2019 @THORACOTOMY; W/THERAPEUTIC WEDGE RESECTION, EA ADD'L RESC, IPSILATERAL (WRVU 3) performed by Quentin Carlin MD at [facility] OR ??? PRO THORACOTOMY WITH THERAPEUTIC WEDGE RESECTION INITIAL Right 10/24/2019 @THORACOTOMY; W/ THERAPEUTIC WEDGE RESECTION , INITIAL (WRVU 15.75) performed by Quentin Carlin MD at [facility] OR ??? PRO THYMECTOMY, RADICAL MEDIAST DISSSEC Right 10/24/2019 @THYMECTOMY W/ RAD. MEDIASTINAL DISSECTION (WRVU 23.48) performed by Quentin Carlin MD at [facility] OR Social History Tobacco Use ??? Smoking [...] risks discussed with patient. Plan discussed with FISH CUTTER. PAT Clinic Note documented in this encounter Miscellaneous Notes * Addendum Note - Jesus Lozada MD - 12/09/2019 3:24 PM EDT Addendum created 12/09/19 1524 by Jesus Lozada MD Clinical Note Signed documented in this encounter Plan of Treatment Upcoming Encounters Date Type Department Care Team (Late st Contact Info) Description 02/08/2024 1:00 PM EDT Office [place] [address] Manjula Kitchen MD [facility] [place] [address] documented as of this encounter Visit Diagnoses [...] lactated ringers infusion CONTINUOUS PRN, Starting on 12/09/19 at 1143, Until Tu12/09/19 at 1319, Anesthesia Intra-op New Bag 12/09/2019 [...] mg documented in this encounter Care Teams Program Coordinator Executive Education Relationship Specialty Start Date End Date Christiana Moore APRN [address] [place] [address] PCP - General Family Medicine 09/26/19 documented as of this encounter
--- OUTSIDE RECORDS SUMMARY | 2024-01-22 13:25 | XMS_ITS | Encounter Summary ---
Author Organization [facility] [place] [address] Care Team Providers Care Burglar Alarm Installer Name Role Phone Oscar Christiana RYAN Primary Care Provider [phone] Reason for Referral * Diagnostic Test (Routine) - Closed Specialty Diagnoses / Procedures Referred By Contac t Referred To Contact Radiology Diagnoses Type A malignant thymoma Procedures CT Chest w Contrast Quentin Carlin MD [facility] [place] [address] [facility] [place] [address] Referral ID Status Reason Start Date Expiration Date V isits Requested Visits Authorized [id number] Closed Specialty Service Requested 10/19/2020 04/21/2022 1 1 Reason for Visit * Diagnostic Test (Routine) - Closed Specialty Diagnoses / Procedures Referred By Contac t Referred To Contact Radiology Diagnoses Type A malignant thymoma Procedures CT Chest w Contrast Quentin Carlin MD [facility] [place] [address] [facility] [place] [address] Referral ID Status Reason Start Date Expiration Date V isits Requested Visits Authorized [id number] Closed Specialty Service Requested 10/19/2020 04/21/2022 1 1 Encounter Details Date Type Department Care Team (Latest Contact Info) Description 03/22/2021 2:01 PM EST - 03/22/2021 11:59 PM EST Hospital [place] [phone] Quentin Carlin MD [facility] [address] Type A malignant thymoma Discharge Disposition: Home [...] PM EDT Office [place] [address] Manjula Kitchen MD [facility] [place] [address] documented as of this encounter Procedures Procedure [...] who have questions please contact the health resident care provider that requested your imaging first. ? Electronically signed by: Ava Islas MD, [facility] ([phone]), at 03/22/2021 3:37 PM Narrative 03/22/2021 3:37 PM EST EXAMINATION: CT [...] patients who have questions please contactthe health resident care provider that requested your imaging first. Quentin Carlin [...] mLs documented in this encounter Care Teams Burglar Alarm Installer Relationship Specialty Start Date End Date Christiana Moore APRN [address] [place] [address] PCP - General Family Medicine 09/26/19 documented as of this encounter
--- OUTSIDE RECORDS SUMMARY | 2024-01-22 13:25 | XMS_ITS | Encounter Summary ---
Author Organization [facility] [place] [address] Care Team Providers Care Senior Supply Chain Analyst Name Role Phone Oscar Christiana DAVIS Primary Care Provider [phone] Reason for Visit * Reason Comments Wound Check Encounter Details Date Type Department Care Team (Late st Contact Info) Description 04/27/2020 11:00 AM EST Office [place] [address] Jose Alvarez MD [facility] [place] [address] Type A malignant thymoma; Open wound of [...] Surgery Attending Outpatient Follow Up Note MD Fatuo Nance PA-C [place], [place] [address] FAX: Pre Op Dx:??mediastinal mass ?? Post [...] questions Fatou Dong PA-C 04/27/2020 Thoracic Surgery [facility] I have seen the patient and reviewed [...] PM EDT Office [place] [address] Manjula Kitchen MD [facility] [place] [address] documented as of this encounter Visit Diagnoses Diagnosis Type A malignant thymoma Open wound of right chest wall with complication, subsequent encounter documented in this encounter Care Teams Senior Supply Chain Analyst Relationship Specialty Start Date End Date Christiana Moore APRN [address] [place] [address] PCP - General Family Medicine 09/26/19 documented as of this encounter
--- OUTSIDE RECORDS SUMMARY | 2024-01-22 13:25 | XMS_ITS | Encounter Summary ---
Author Organization [facility] [place] [address] Care Team Providers Care Move Coordinator Name Role Phone Oscar Christiana DAVIS Primary Care Provider [phone] Reason for Visit * Reason Comments Cancer Encounter Details Date Type Department Care Team (Late st Contact Info) Description 01/27/2020 1:00 PM EDT Office Visit [place] [address] Jose Alvarez MD [facility] [place] [address] Type A malignant thymoma; Chest wall abscess; [...] Follow Up Note MD Fatou Nance PA-C [place] [address] FAX: Pre Op Dx:??mediastinal mass ?? Post [...] no signs of infection. Wound measures ~ [id number] and tunnels ~1 cm superiorly and 6cm [...] questions Fatou Dong PA-C 01/27/2020 Thoracic Surgery [facility] I have seen the patient and [...] PM EDT Office Visit [place] [address] Manjula Kitchen MD [facility] [place] [address] documented as of this encounter Visit Diagnoses Diagnosis Type A malignant thymoma Chest wall abscess Cellulitis and abscess of trunk Open wound of right chest wall with complication, subsequent encounter documented in this encounter Care Teams Move Coordinator Relationship Specialty Start Date End Date Christiana Moore APRN [address] [place] [address] PCP - General Family Medicine 09/26/19 documented as of this encounter
--- OUTSIDE RECORDS SUMMARY | 2024-01-22 13:25 | XMS_ITS | Encounter Summary ---
Author Organization [facility] [place] [address] Care Team Providers Care Blasting Contract Man Name Role Phone Christiana Moore RYAN Primary Care Provider [phone] Encounter Details Date Type Department Care Team (Late st Contact Info) Description 10/18/2021 12:15 PM EDT Laboratory Appointment Lab [address] [place] [address] Social History Tobacco Use Types Packs/Day Years [...] PM EDT Office [place] [address] Manjula Kitchen MD [facility] [place] [address] documented as of this encounter Procedures Procedure Name Priority Date/Time Associated Diagnosis Comments CREATININE Routine 10/18/2021 12:27 PM EDT documented in this encounter Results * Creatinine (10/18/2021 12:27 PM EDT) Creatinine 0.88 0.80 - 1.50 mg/dL [facility] Est Glomerular Filtration Rate 94 >=60 mL/min/1. 73 m?? [facility] Comment: This patient's estimated [...] In Lab Christiana Moore APRN CHEMISTRY ORDERABLES Performing Organization Address City/State/[facility] Co de Phone Number [facility] [place] [address] documented in this encounter Visit Diagnoses Not on filedocumented in this encounter Care Teams Blasting Contract Man Relationship Specialty Start Date End Date Christiana Moore APRN [address] [place] [address] PCP - General Family Medicine 09/26/19 documented as of this encounter
--- OUTSIDE RECORDS SUMMARY | 2024-01-22 13:25 | XMS_ITS | Encounter Summary ---
Author Organization [facility] [place] [address] Care Team Providers Care Purchasing Director Name Role Phone Christiana Moore APRN Primary Care Provider [phone] Encounter Details Date Type Department Care Team (Late st Contact Info) Description 2020 Telephone [place] [phone] Clarissa Murphy RN Social History Tobacco Use [...] an office visit with a PA or FIELD ARTILLERY OPERATIONS SPECIALIST. documented in this encounter Plan of Treatment Upcoming Encounters Date Type Department Care Team (Late st Contact Info) Description 02/08/2024 1:00 PM EDT Office Visit [place] [address] Manjula Kitchen MD [facility] [place] [address] documented as of this encounter Visit Diagnoses Not on filedocumented in this encounter Care Teams Purchasing Director Relationship Specialty Start Date End Date Christiana Moore APRN [address] [place] [address] PCP - General Family Medicine 09/26/19 documented as of this encounter
--- OUTSIDE RECORDS SUMMARY | 2024-01-22 13:25 | XMS_ITS | Encounter Summary ---
Author Organization [facility] [place] [address] Care Team Providers Care Veterinary Technician Assistant Name Role Phone Christiana Moore RYAN Primary Care Provider [phone] Encounter Details Date Type Department Care Team (Latest Contact Info) Description 03/22/2021 1:15 PM EST Laboratory Appointment Lab [address] [place] [phone] Type A malignant thymoma Social History Tobacco [...] PM EDT Office [place] [address] Manjula Kitchen MD [facility] [place] [address] documented as of this encounter Procedures Procedure [...] In Lab Quentin Carlin MD CHEMISTRY ORDERABLES [facility] [address] documented in this encounter Visit Diagnoses Diagnosis Type A malignant thymoma documented in this encounter Care Teams Veterinary Technician Assistant Relationship Specialty Start Date End Date Christiana Moore APRN [address] [place] [address] PCP - General Family Medicine 09/26/19 documented as of this encounter
--- OUTSIDE RECORDS SUMMARY | 2024-01-22 13:25 | XMS_ITS | Encounter Summary ---
Author Organization [facility] [place] [address] Care Team Providers Care Key Maker Name Role Phone Oscar Christiana RYAN Primary Care Provider [phone] Encounter Details Date Type Department Care Team (Late st Contact Info) Description 04/20/2020 Telephone [place] [phone] Monica Price RN Social History Tobacco Use [...] PM EDT Office [place] [address] Manjula Kitchen MD [facility] [place] [address] documented as of this encounter Visit Diagnoses Not on filedocumented in this encounter Care Teams Key Maker Relationship Specialty Start Date End Date Christiana Moore APRN [address] [place] [address] PCP - General Family Medicine 09/26/19 documented as of this encounter
--- OUTSIDE RECORDS SUMMARY | 2024-01-22 13:25 | XMS_ITS | Encounter Summary ---
Author Organization [facility] [place] [address] Care Team Providers Care Pensionholder Information Clerk Name Role Phone Christiana Moore APRN Primary Care Provider [phone] Encounter Details Date Type Department Care Team [...] PM EDT Office [place] [address] Manjula Kitchen MD [facility] [address] [place] [address] documented as of this encounter Visit Diagnoses Not on filedocumented in this encounter Care Teams Pensionholder Information Clerk Relationship Specialty Start Date End Date Christiana Moore APRN [address] [place] [address] PCP - General Family Medicine 09/26/19 documented as of this encounter
--- OUTSIDE RECORDS SUMMARY | 2024-01-22 13:25 | XMS_ITS | Encounter Summary ---
Author Organization [facility] [place] [address] Care Team Providers Care Platform Software Engineer Name Role Phone Christiana Moore RYAN Primary Care Provider [phone] Reason for Referral * Diagnostic Test (Routine) - Closed Specialty Diagnoses / Procedures Referred By Contac t Referred To Contact Radiology Diagnoses Type A malignant thymoma Procedures CT Chest w Contrast Jose Alvarez MD [facility] [place] [address] [facility] [place] [address] Referral ID Status Reason Start Date Expiration Date V isits Requested Visits Authorized [id number] Closed Specialty Service Requested 02/24/2020 08/23/2021 1 1 Reason for Visit * Reason Comments Cancer thymoma Follow-up wound check Encounter Details Date Type Department Care Team (Late st Contact Info) Description 02/24/2020 11:45 AM EST Office Visit [place] [address] Jose Alvarez MD [facility] [place] [address] Type A malignant thymoma; Chest [...] Follow Up Note MD Fatou Nance PA-C [place], [place] [address] FAX: Pre Op Dx:??mediastinal mass ?? Post [...] questions Fatou Dong PA-C 02/24/2020 Thoracic Surgery [facility] I have seen the patient [...] PM EDT Office [place] [address] Manjula Kitchen MD [facility] [place] [address] documented as of this encounter Results * [...] who have questions please contact the health critical care paramedic that requested your imaging first. ? Electronically signed by: Ava Islas MD, [facility] ([phone]), at 10/19/2020 3:01 PM Narrative 10/19/2020 3:01 [...] sagittal reformatted images were generated. COMPARISON: 03/25/2020 [facility]. FINDINGS: Pulmonary parenchyma: Chain suture in the [...] andsagittal reformatted images were generated. COMPARISON: 03/25/2020 [facility]. FINDINGS: Pulmonary parenchyma: Chain suture in the [...] patients who have questions please contactthe health critical care paramedic that requested your imaging first. Jose Alvarez MD IMG CT ORDERABLES documented in this encounter Visit Diagnoses Diagnosis Type A malignant thymoma Chest wall abscess Cellulitis and abscess of trunk Open wound of right chest wall with complication, subsequent encounter Type A malignant thymoma documented in this encounter Care Teams Platform Software Engineer Relationship Specialty Start Date End Date Christiana Moore APRN [address] [place] [address] PCP - General Family Medicine 09/26/19 documented as of this encounter
--- OUTSIDE RECORDS SUMMARY | 2024-01-22 13:25 | XMS_ITS | Encounter Summary ---
Author Organization [facility] Address [facility] [place] [address] Care Team Providers Care Marketing Project Specialist Name Role Phone Christiana Moore APRN Primary Care Provider [phone] Reason for Visit * Reason Comments Wound Check Encounter Details Date Type Department Care Team (Late st Contact Info) Description 03/30/2020 9:00 AM EST Office [place] [address] Jose Alvarez MD [facility] DR [place]AC[place] [address] Type A malignant thymoma; Chest wall abscess; [...] Outpatient Follow Up Note Jose Alvarez MD [place] [address] FAX: Pre Op Dx:??mediastinal mass ?? Post [...] concerns JOSE ALVAREZ MD 03/30/2020 Thoracic Surgery [facility] * Clarissa Murphy, RN - 03/30/2020 [...] PM EDT Office [place] [address] Manjula Kitchen MD [facility] [place] [address] documented as of this encounter Visit Diagnoses Diagnosis Type A malignant thymoma Chest wall abscess Cellulitis and abscess of trunk Open wound of right chest wall with complication, subsequent encounter documented in this encounter Care Teams Marketing Project Specialist Relationship Specialty Start Date End Date Christiana Moore APRN [address] [place] [address] PCP - General Family Medicine 09/26/19 documented as of this encounter
--- OUTSIDE RECORDS SUMMARY | 2024-01-22 13:25 | XMS_ITS | Encounter Summary ---
Author Organization [facility] [place] [address] Care Team Providers Care Hand Twister Name Role Phone Oscar Christiana DAVIS Primary Care Provider [phone] Reason for Visit * Reason Comments Cancer Encounter Details Date Type Department Care Team (Late st Contact Info) Description 12/19/2019 1:00 PM EDT Office [place] [address] Jose Alvarez MD [facility] [place] [address] Type A malignant thymoma; Chest wall abscess [...] Outpatient Follow Up Note Jose Alvarez MD [place] [address] FAX: Pre Op Dx:??mediastinal mass ?? Post [...] with any questions or concerns Bella Arteaga, PROGRAMMER DEVELOPER 12/19/2019 Thoracic Surgery [facility] I have reviewed the PUBLIC HEALTH DOCTOR's above history and I agree with the [...] I was the attending physician supervising the PUBLIC HEALTH DOCTOR in the above care and was available for the entireprocedure. JOSE ALVAREZ MD documented in this encounter Plan of Treatment Upcoming Encounters Date Type Department Care Team (Late st Contact Info) Description 02/08/2024 1:00 PM EDT Office [place] [address] Manjula Kitchen MD [facility] [place] [address] documented as of this encounter Visit Diagnoses Diagnosis Type A malignant thymoma Chest wall abscess Cellulitis and abscess of trunk documented in this encounter Care Teams Hand Twister Relationship Specialty Start Date End Date Christiana Moore APRN [address] [place] [address] PCP - General Family Medicine 09/26/19 documented as of this encounter
--- OUTSIDE RECORDS SUMMARY | 2024-01-22 13:25 | XMS_ITS | Encounter Summary ---
Author Organization [facility] [place] [address] Care Team Providers Care Habilitative Interventionist Name Role Phone Oscar Christiana DAVIS Primary Care Provider [phone] Reason for Visit * Reason Comments Cancer Encounter Details Date Type Department Care Team (Late st Contact Info) Description 01/06/2020 12:30 PM EDT Office [place] [address] Jose Alvarez MD [facility] [place] [address] Type A malignant thymoma Social History Tobacco [...] Follow Up Note MD Fatou Nance PA-C [place] [address] FAX: Pre Op Dx:??mediastinal mass ?? Post [...] questions Fatou Dong PA-C 01/06/2020 Thoracic Surgery [facility] I have seen the patient and [...] holding. Fatou Dong PA-C 01/06/2020 Thoracic Surgery [facility] ??I was the attending physician supervising the resident in the above care and participated in the dressing change. JOSE ALVAREZ MD documented in this encounter Plan of Treatment Upcoming Encounters Date Type Department Care Team (Late st Contact Info) Description 02/08/2024 1:00 PM EDT Office [place] [address] Manjula Kitchen MD [facility] [place] [address] documented as of this encounter Visit Diagnoses Diagnosis Type A malignant thymoma documented in this encounter Care Teams Habilitative Interventionist Relationship Specialty Start Date End Date Christiana Moore APRN [address] [place] [address] PCP - General Family Medicine 09/26/19 documented as of this encounter
--- OUTSIDE RECORDS SUMMARY | 2024-01-22 13:25 | XMS_ITS | Encounter Summary ---
Author Organization [facility] [place] [address] Care Team Providers Care Semiconductor Development Technician Name Role Phone Christiana Moore RYAN Primary Care Provider [phone] Reason for Referral * Diagnostic Test (STAT) - Closed Specialty Diagnoses / Procedures Referred By Contac t Referred To Contact Radiology Diagnoses Chest wall abscess Procedures CT Chest w Contrast Todd Alvarez, PA [facility] [place] [address] [facility] [place] [address] Referral ID Status Reason Start Date Expiration Date V isits Requested Visits Authorized [id number] Closed Specialty Service Requested 03/14/2023 09/12/2024 1 1 Reason for Visit * Reason Comments Follow-up Cancer Thymoma * Auth/Cert Specialty Diagnoses / Procedures Referred By Contac t Referred To Contact Diagnoses Complicated wound infection Procedures ER MICAELAI Jose Alvarez MD [facility] [place] [address] [facility] Referral ID Status Reason Start Date Expiration Date Visits Re quested Visits Authorized [id number] 1 1 Encounter Details Date Type Department Care Team (Late st Contact Info) Description 03/14/2023 11:00 AM EST Office [place] [address] Jose Alvarez MD [facility] [place] [id number] Chest wall abscess (Primary Dx); Type A [...] Outpatient Consultation Note MD Todd Nance PA-C [place], [place] [address] Pre Op Dx: Mediastinal Mass Post Op [...] Dr. Alvarez. SOCRATES Rao 03/14/2023 Thoracic Surgery [facility] I have reviewed the PA/resident's above history and I agree with the details as written. The assessment and plan were formulated in discussion with me and I agree with them as documented. JOSE ALVAREZ MD documented in this encounter Plan of Treatment Upcoming Encounters Date Type Department Care Team (Late st Contact Info) Description 02/08/2024 1:00 PM EDT Office [place] [address] Manjula Kitchen MD [facility] [place] [address] documented as of this encounter Procedures Procedure [...] who have questions please contact the health group care worker that requested your imaging first. ? Electronically signed by: Jing Hudson MD, [facility] ([phone]), at 03/14/2023 5:36 PM Narrative 03/14/2023 5:36 [...] patients who have questions please contactthe health group care worker that requested your imaging first. Jose Alvarez MD IMG CT ORDERABLES * Basic Metabolic Panel (non-fasting) (03/14/2023 1:00 PM EST) Glucose 118 65 - 199 mg/dL [facility] Comment:Diabetes: >=200 mg/d L plus symptoms Blood Urea Nitrogen 13 10 - 20 mg/dL [facility] Creatinine 0.98 0.80 - 1.50 mg/dL [facility] Sodium 138 135 - 145 mmol/L [facility] Potassium 4.5 3.5 - 5.0 mmol/L [facility] Comment: Please note: ??Patients with WBC >100,000 may have falsely elevated Potassium levels. ??For accurate Potassium quantification in these patients send serum separator tube (gold top) for subsequent determinations. ??Contact the Clinical Chemistry Laboratory if there are any questions. Chloride 101 98 - 107 mmol/L [facility] Carbon Dioxide 26 22 - 31 mmol/L [facility] Anion Gap 11 5 - 15 mmol/L [facility] Calcium 9.5 8.5 - 10.5 mg/dL [facility] Est Glomerular Filtration Rate 84 >=60 mL/min/1. 73 m?? [facility] Comment: This patient's estimated GFR [...] Alvarez MD CHEMISTRY ORDERABLES Performing Organization Address [facility] Co de Phone Number [place] [place] [address] * Anaerobic Culture (03/14/2023 12:30 PM EST) Anaerobic Culture No anaerobic organisms isolated [facility] Cyst Fluid 03/14/2023 12:3 0 PM EST 03/14/2023 1:49 PM EST Comment:Right posterior ches t wall cyst/abscess fluid Narrative Resulting Agency Comment Spec In Lab Jose Alvarez MD MICROBIOLOGY - GENER AL ORDERABLES Performing Organization Address [facility] [place] [place] [address] * (ABNORMAL) Body Fluid Culture, Aerobic (03/14/2023 12:30 PM EST) Body Fluid Culture Few Staphylococcus aureus : two morphologies(A) [facility] Gram Stain Cytocentrifuge Gram Stain performed Neutrophils seen Rare Gram Positive Cocci seen (A) [facility] Organism Staphylococcus aureus(A) [facility] Organism Staphylococcus aureus(A) [facility] Organism Gram Positive Cocci(A) [facility] Cyst Fluid 03/14/2023 12:3 0 PM EST 03/14/2023 1:49 PM EST Comment:Right posterior ches t wall cyst/abscess fluid Narrative Resulting Agency Comment Spec In Lab Organism Antibiotic Method Susceptibility Staphylococcus aureus Clindamycin VITEK 2 METHOD Sensitive Staphylococcus aureus Erythromycin VITEK 2 METHOD Sensitive Staphylococcus aureus Gentamicin VITEK 2 METHOD Sensitive Comment:Gentamicin i s not appropriate for [place]-therapy. Staphylococcus aureus Oxacillin VITEK 2 METHOD Sensitive [...] Sensitive Comment:Gentamicin i s not appropriate for [place]-therapy. Staphylococcus aureus Oxacillin VITEK 2 METHOD Sensitive [...] METHOD Sensitive Jose Alvarez MD MICROBIOLOGY - [facility] [place] [address] documented in this encounter Visit Diagnoses Diagnosis Chest wall abscess- Primary Cellulitis and abscess of trunk Type A malignant thymoma Open wound of right chest wall with complication, subsequent encounter Chest wall abscess Cellulitis and abscess of trunk documented in this encounter Care Teams Semiconductor Development Technician Relationship Specialty Start Date End Date Christiana Moore APRN [address] [place] [address] PCP - General Family Medicine 09/26/19 documented as of this encounter
--- OUTSIDE RECORDS SUMMARY | 2024-01-22 13:25 | XMS_ITS | Encounter Summary ---
[place] [address] Care Team Providers Care Civil Division Deputy Sheriff Name Role Phone Christiana Moore APRN Primary Care Provider [phone] Reason for Referral * Diagnostic Test (Routine) - Closed Specialty Diagnoses / Procedures Referred By Ankit hong Referred To Contact Radiology Diagnoses Thymoma Multiple nodules of lung Procedures CT Chest w Contrast Christiana Moore APRN [address] [place] [address] [facility] [place] [address] Referral ID Status Reason Start Date Expiration Date V isits Requested Visits Authorized [id number] Closed Specialty Service Requested 08/17/2021 02/17/2023 1 1 Reason for Visit * Diagnostic Test (Routine) - Closed Specialty Diagnoses / Procedures Referred By Ankit hong Referred To Contact Radiology Diagnoses Thymoma Multiple nodules of lung Procedures CT Chest w Contrast Christiana Moore APRN [address] [place] [address] [facility] [place] [address] Referral ID Status Reason Start Date Expiration Date V isits Requested Visits Authorized [id number] Closed Specialty Service Requested 08/17/2021 02/17/2023 1 1 Encounter Details Date Type Department Care Team (Latest Contact Info) Description 10/18/2021 12:46 PM EDT - 10/18/2021 11:59 PM EDT Hospital En[place] [address] Christiana Moore APRN [address] [place] [address] Thymoma; Multiple nodules of lung Discharge Disposition: [...] PM EDT Office [place] [address] Manjula Kitchen MD [facility] [place] [address] documented as of this encounter Procedures Procedure [...] interpretation and agree with the findings, Quentin Smith DO at 10/18/2021 3:15 PM Thank you for letting us participate in the care of this patient. ??If you are a health care provider and have any questions regarding this report, please contact the number below. ??For patients who have questions please contact the health hearing care professional that requested your imaging first. ? Electronically signed by: Quentin Smith DO, [facility] ([phone]), at 10/18/2021 3:15 PM Narrative 10/18/2021 3:15 PM EDT EXAMINATION: CT CHEST W CONTRAST CLINICAL HISTORY: Multiple lung nodules. TECHNIQUE: 3.75 mm thick axial contiguous sections were obtained through the chest via helical acquisition after the intravenous administration of 60.0 ml of OMNIPAQUE 350.00 mg/ml. Thin-section reconstructions as well as coronal and sagittal reformatted images were generated. COMPARISON: Chest CT 03/22/2021 FINDINGS: Dry Can Tender images: Noncontributory Pulmonary parenchyma: Suture material and [...] No suspicious osseous lesions. Procedure Note Quentin Smith, - 10/18/2021 EXAMINATION: CT CHEST W CONTRAST CLINICAL HISTORY: Multiple lung nodules. TECHNIQUE: 3.75 mm thick axial contiguous sections were obtained throughthe chest via helical acquisition after the intravenous administration of 60.0ml of OMNIPAQUE 350.00 mg/ml. Thin-section reconstructions as well as coronaland sagittal reformatted images were generated. COMPARISON: Chest CT 03/22/2021 FINDINGS: Dry Can Tender images: Noncontributory Pulmonary parenchyma: Suture material and [...] patients who have questions please contactthe health hearing care professional that requested your imaging first. Electronically signed by: Quentin Smith DO, [facility]([phone]), at 10/18/2021 3:15 PM Christiana Moore PUBLIC HEALTH PROFESSOR IMG CT ORDERABLES documented in this encounter [...] mLs documented in this encounter Care Teams Civil Division Deputy Sheriff Relationship Specialty Start Date End Date Christiana Moore APRN [address] [place] [address] PCP - General Family Medicine 09/26/19 documented as of this encounter
--- OUTSIDE RECORDS SUMMARY | 2024-01-22 13:25 | XMS_ITS | Encounter Summary ---
Author Organization [facility] [place] [address] Care Team Providers Care Cook Manager Name Role Phone Christiana Moore APRN Primary Care Provider [phone] Encounter Details Date Type Department Care Team (Late st Contact Info) Description 12/11/2019 Telephone Thoracic Surgery at [place] [phone] Monica Price RN Social History Tobacco Use [...] PM EDT Office Visit General [place] [address] Manjula Kitchen MD [facility] [place] [address] documented as of this encounter Visit Diagnoses Not on filedocumented in this encounter Care Teams Cook Manager Relationship Specialty Start Date End Date Christiana Moore APRN [address] [place] [address] PCP - General Family Medicine 09/26/19 documented as of this encounter
--- OUTSIDE RECORDS SUMMARY | 2024-01-22 13:25 | XMS_ITS | Encounter Summary ---
Author Organization [facility] [place] [address] Care Team Providers Care Renal Dietitian Name Role Phone Christiana Moore RYAN Primary Care Provider [phone] Reason for Referral * Diagnostic Test (Routine) - Closed Specialty Diagnoses / Procedures Referred By Contac t Referred To Contact Radiology Diagnoses Type A malignant thymoma Procedures CT Chest wo Contrast (Generic) Jose Alvarez MD [facility] [place] [address] [facility] [place] [address] Referral ID Status Reason Start Date Expiration Date V isits Requested Visits Authorized [id number] Closed Specialty Service Requested 03/24/2021 09/21/2022 1 1 Reason for Visit * Reason Comments Cancer Encounter Details Date Type Department Care Team (Late st Contact Info) Description 03/22/2021 3:00 PM EST Office Visit [place] [address] Jose Alvarez MD [facility] [place] [address] Type A malignant thymoma Social [...] Outpatient Follow Up Note Jose Alvarez MD [place] [address] FAX: Pre Op Dx: Mediastinal Mass Post [...] which he was scheduled to see a nail sticker. He presents today in clinicfor a follow-up [...] 3. Trace residual bilateral effusions. Assessment: Tree Lantigua is a 65 y.o. male Right thoracotomy, [...] PM EDT Office [place] [address] Manjula Kitchen MD [facility] [place] [address] documented as of this encounter Results * [...] who have questions please contact the health respiratory care assistant that requested your imaging first. ? Narrative [...] patients who have questions please contactthe health respiratory care assistant that requested your imaging first. 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
--- OUTSIDE RECORDS SUMMARY | 2024-01-22 13:25 | XMS_ITS | Encounter Summary ---
Author Organization [facility] [place] [address] Care Team Providers Care Supervisor Pig Machine Name Role Phone Christiana Moore APRN Primary Care Provider [phone] Reason for Visit * Reason Onset Date Comments Other 03/26/2020 Encounter Details Date Type Department Care Team (Late st Contact Info) Description 03/26/2020 Telephone [place] [address] Monica Price, RN Other Social History Tobacco [...] R lung on10/24/2019 ED visit 03/25 at [facility] with CT scan of chest for possible [...] seen in the ED last night at [facility] and had a CT scan completed. They started him on Augmentin and she is aware. SABAA will visiting today and will assess dressing and changes three times a day. She was grateful for the update. documented in this encounter Plan of Treatment Upcoming Encounters Date Type Department Care Team (Late st Contact Info) Description 02/08/2024 1:00 PM EDT Office [place] [address] Manjula Kitchen MD [facility] [place] [address] documented as of this encounter Visit Diagnoses Not on filedocumented in this encounter Care Teams Supervisor Pig Machine Relationship Specialty Start Date End Date Christiana Moore APRN [address] [place] [address] PCP - General Family Medicine 09/26/19 documented as of this encounter
--- OUTSIDE RECORDS SUMMARY | 2024-01-22 13:25 | XMS_ITS | Encounter Summary ---
Author Organization [facility] [place] [address] Care Team Providers Care Precision Millwright Name Role Phone Christiana Moore RYAN Primary Care Provider [phone] Reason for Visit * Reason Onset Date Comments Other 01/06/2020 Encounter Details Date Type Department Care Team (Late st Contact Info) Description 01/06/2020 Telephone [place] [address] Monica Price RN Other Social History Tobacco [...] Price RN - 01/06/2020 3:39 PM EDT [facility] - [phone] Spoke with EVER Boggs Wound Vac removal on Sunday then wet to dry dressings twice a day. She was grateful for the information documented in this encounter Plan of Treatment Upcoming Encounters Date Type Department Care Team (Late st Contact Info) Description 02/08/2024 1:00 PM EDT Office [place] [address] Manjula Kitchen MD [facility] [place] [address] documented as of this encounter Visit Diagnoses Not on filedocumented in this encounter Care Teams Precision Millwright Relationship Specialty Start Date End Date Christiana Moore APRN [address] [place] [address] PCP - General Family Medicine 09/26/19 documented as of this encounter
--- OUTSIDE RECORDS SUMMARY | 2024-01-22 13:25 | XMS_ITS | Encounter Summary ---
Author Organization [facility] [place] [address] Care Team Providers Care Body Shop Floorperson Name Role Phone Michael Moorey RYAN Primary Care Provider [phone] Encounter Details Date Type Department Care Team (Late st Contact Info) Description 03/25/2020 Telephone [place] [phone] Ramses Contreras MD [facility] [place] [address] Social History Tobacco Use Types Packs/Day Years [...] patient warrants admission or transfer here to [facility]. Review of his previous microbiology demonstrated a [...] PM EDT Office [place] [address] Manjula Kitchen MD [facility] [place] [address] documented as of this encounter Visit Diagnoses Not on filedocumented in this encounter Care Teams Body Shop Floorperson Relationship Specialty Start Date End Date Christiana [place] APRN [address] [place] [address] PCP - General Family Medicine 09/26/19 documented as of this encounter
--- OUTSIDE RECORDS SUMMARY | 2024-01-22 13:25 | XMS_ITS | Encounter Summary ---
Author Organization [facility] [place] [address] Care Team Providers Care Pet Care Attendant Name Role Phone Christiana [place] APRN Primary Care Provider [phone] Encounter Details Date Type Department Care Team (Late st Contact Info) Description 03/25/2020 7:20 PM EST Ancillary Procedure Radiology Library at [facility] [place] [phone] Ramses Contreras MD [facility] [place] [address] Social History Tobacco Use Types Packs/Day Years [...] PM EDT Office Visit General Surgery at [facility] [place] [phone] Manjula Kitchen MD [facility] [place] [address] documented as of this encounter Procedures Procedure Name Priority Date/Time Associated Diagnosis Comments FILM LIBRARY STORAGE ONLY CT CHEST Routine 03/25/2020 7:17 PM EST documented in this encounter Results * Film Library- Storage Only CT Chest (03/25/2020 7:17 PM EST) Narrative YURIY LEUNG - 03/25/2020 7:17 PM EST This exam is auto-finalizing. It's purpose is for storage only. Ramses Contreras MD IMG FILM LIBRARY OR DERABLES [place], [place] documented in this encounter Visit Diagnoses Not on filedocumented in this encounter Care Teams Pet Care Attendant Relationship Specialty Start Date End Date Christiana [place] APRN [address] [place] [address] PCP - General Family Medicine 09/26/19 documented as of this encounter
--- OUTSIDE RECORDS SUMMARY | 2024-01-22 13:25 | XMS_ITS | Encounter Summary ---
Author Organization [facility] [place] [address] Care Team Providers Care Small Piece Cutter Name Role Phone Christiana [place] RYAN Primary Care Provider [phone] Reason for Referral * Diagnostic Test (Routine) - Closed Specialty Diagnoses / Procedures Referred By Contac t Referred To Contact Radiology Diagnoses Type A malignant thymoma Procedures CT Chest w Contrast Jose Alvarez MD [facility] [place] [address] [facility] [place] [address] Referral ID Status Reason Start Date Expiration Date V isits Requested Visits Authorized [id number] Closed Specialty Service Requested 10/19/2020 04/21/2022 1 1 Reason for Visit * Reason Comments Cancer Encounter Details Date Type Department Care Team (Late st Contact Info) Description 10/19/2020 1:15 PM EDT Office [place] [address] Jose Alvarez MD [facility] [place] [address] Type A malignant thymoma Social [...] EDT Thoracic Surgery Outpatient Follow Up Note [facility] [address] [place] [address] FAX: Pre Op Dx: mediastinal mass Post [...] takes occasional advil and will see a corral boss next week. He denies nausea/vomiting, MARTI, chest [...] BP surveillance 5. Call with any questions Festus Ana, MS4 This case was discussed with Attending Physician: Dr. Jose Alvarez I have seen the patient and reviewed the medical student's above history. The assessment and plan were formulated in discussion with me. Please see my note for details. JOSE ALVAREZ MD * Jose Alvarez MD - 10/19/2020 1:15 PM EDT Thoracic Surgery Outpatient Follow Up Note Jose Alvarez MD [place] [address] FAX: Pre Op Dx: mediastinal mass Post [...] takes occasional advil and will see a corral boss next week. He denies nausea/vomiting, MARTI, chest [...] PM EDT Office [place] [address] Manjula Kitchen MD [facility] [place] [address] documented as of this encounter Results * [...] who have questions please contact the health wound care coordinator that requested your imaging first. ? Electronically signed by: Ava Islas MD, [facility] ([phone]), at 03/22/2021 3:37 PM Narrative 03/22/2021 3:37 [...] patients who have questions please contactthe health wound care coordinator that requested your imaging first. 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
--- OUTSIDE RECORDS SUMMARY | 2024-01-22 13:25 | XMS_ITS | Encounter Summary ---
[place] [address] Care Team Providers Care Educational Technology Specialist Name Role Phone Christiana [place] APRN Primary Care Provider [phone] Reason for Visit * Reason Onset Date Comments Other 03/25/2020 Encounter Details Date Type Department Care Team (Late st Contact Info) Description 03/25/2020 Telephone [place] [address] Monica Price RN Other Social History Tobacco [...] other TC from [facility] Hx: s/p I & D of right [...] from a 3. Discussed with Dr. Contreras (dispersion mixer) instructed to head to [facility] ED for evaluation. Mr. Lantigua was in agreement with plan and report to be called. TC to [facility] ED - [phone] Spoke with [facility]urance senior nurse in ED. Report given and requested CT scan of Chest with IV contrast to be completed as well blood work. Penny was grateful for the update and will look for Mr. Lantigua. documented in this encounter Plan of Treatment Upcoming Encounters Date Type Department Care Team (Late st Contact Info) Description 02/08/2024 1:00 PM EDT Office [place] [address] Manjula Kitchen MD [facility] [place] [address] documented as of this encounter Visit Diagnoses Not on filedocumented in this encounter Care Teams Educational Technology Specialist Relationship Specialty Start Date End Date Christiana [place] APRN [address] [place] [address] PCP - General Family Medicine 09/26/19 documented as of this encounter
--- OUTSIDE RECORDS SUMMARY | 2024-01-22 13:25 | XMS_ITS | Encounter Summary ---
Author Organization [facility] [place] [address] Care Team Providers Care Shutdown Coordinator Name Role Phone Oscar Christiana DAVIS Primary Care Provider [phone] Reason for Visit * Reason Comments Follow Up Surgery Encounter Details Date Type Department Care Team (Late st Contact Info) Description 12/11/2019 1:00 PM EDT Office [place] [address] Jose Alvarez MD [facility] [place] [address] Mediastinal mass; Chest wall abscess; Open wound [...] Outpatient Follow Up Note Jose Alvarez MD [place] [address] FAX: Pre Op Dx: mediastinal mass ?? [...] concerns Bella Arteaga APRN 12/11/2019 Thoracic Surgery [facility] I have seen the patient and reviewed the PA/resident's above history and I agree with the details as written. The assessment and plan were formulated in discussion with me and I agree with them as documented. JOSE ALVAREZ MD documented in this encounter Procedure Notes * Bella Arteaga APRN - 12/11/2019 1:00 PM EDTProcedure(s): DRESSING [...] PM EDT Office [place] [address] Manjula Kitchen MD [facility] [place] [address] documented as of this encounter Visit Diagnoses Diagnosis Mediastinal mass Swelling, mass, or lump in chest Chest wall abscess Cellulitis and abscess of trunk Open wound of right chest wall with complication, subsequent encounter documented in this encounter Care Teams Shutdown Coordinator Relationship Specialty Start Date End Date Christiana [place] APRN [address] [place] [address] PCP - General Family Medicine 09/26/19 documented as of this encounter
--- OUTSIDE RECORDS SUMMARY | 2024-01-22 13:25 | XMS_ITS | Encounter Summary ---
Author Organization [facility] [place] [address] Care Team Providers Care Community Case Manager Name Role Phone Christiana [place] APRN Primary Care Provider [phone] Encounter Details Date Type Department Care Team (Late st Contact Info) Description 03/15/2020 Telephone [place] [address] Clarissa Murphy RN Social History Tobacco Use [...] ESTSummary: Change in frequency of VNA visits [facility] is having surgery and will be unable to perform his wound care March 23 through March 26, 2020. Please schedule daily visits those four days and then resume twice weekly visits the following week. Thank you, Quentin Carlin MD [phone] * Telephone Encounter - Clarissa Murphy RN [...] PM EDT Office [place] [address] Manjula Kitchen MD [facility] [place] [address] documented as of this encounter Visit Diagnoses Not on filedocumented in this encounter Care Teams Community Case Manager Relationship Specialty Start Date End Date Christiana [place] APRN [address] [place] [address] PCP - General Family Medicine 09/26/19 documented as of this encounter
--- OUTSIDE RECORDS SUMMARY | 2024-01-22 13:25 | XMS_ITS | Encounter Summary ---
Author Organization [facility] [place] [address] Care Team Providers Care Animal Services Officer Name Role Phone Oscar Christiana DAVIS Primary Care Provider [phone] Reason for Visit * Reason Comments Cancer Follow-up Encounter Details Date Type Department Care Team (Late st Contact Info) Description 02/17/2020 1:45 PM EST Office [place] [address] [facility] [place] [address] Type A malignant thymoma; Open wound of [...] Follow Up Note MD Fatou Nance PA-C [place] [address] FAX: Pre Op Dx:??mediastinal mass ?? Post [...] questions Fatou Dong PA-C 02/17/2020 Thoracic Surgery [facility] I have seen the patient [...] PM EDT Office [place] [address] [facility] [place] [address] documented as of this encounter Visit Diagnoses Diagnosis Type A malignant thymoma Open wound of right chest wall with complication, subsequent encounter documented in this encounter Care Teams Animal Services Officer Relationship Specialty Start Date End Date Christiana [place] APRN [address] [place] [address] PCP - General Family Medicine 09/26/19 documented as of this encounter
--- OUTSIDE RECORDS SUMMARY | 2024-01-22 13:26 | XMS_ITS | Encounter Summary ---
Author Organization [facility] [place] [address] Care Team Providers Care Sports Management Internship Name Role Phone Christiana [place] APRN Primary Care Provider [phone] Reason for Visit * Reason Onset Date Comments Medication Refill 12/03/2019 Medication Refill 12/04/2019 Encounter Details Date Type Department Care Team (Late st Contact Info) Description 12/03/2019 [place] [phone] Clement Damon MD [facility] [place] [address] Social History Tobacco Use Types Packs/Day Years [...] PM EDT Office [place] [address] Manjula Kitchen MD [facility] [place] [address] documented as of this encounter Visit Diagnoses Not on filedocumented in this encounter Care Teams Sports Management Internship Relationship Specialty Start Date End Date Christiana Moore APRN [address] [place] [address] PCP - General Family Medicine 09/26/19 documented as of this encounter
--- OUTSIDE RECORDS SUMMARY | 2024-01-22 13:26 | XMS_ITS | Encounter Summary ---
Author Organization [facility] [place] [address] Care Team Providers Care Energy Broker Name Role Phone Oscar Christiana RYAN Primary Care Provider [phone] Reason for Visit * Reason Onset Date Comments Other 10/30/2019 post op call Encounter Details Date Type Department Care Team (Late st Contact Info) Description 10/30/2019 Telephone [place] [address] Monica Price, RN Other (post op call) [...] PM EDT Office [place] [address] Manjula Kitchen MD [facility] [place] [address] documented as of this encounter Visit Diagnoses Not on filedocumented in this encounter Care Teams Energy Broker Relationship Specialty Start Date End Date Christiana [place] APRN [address] [place] [address] PCP - General Family Medicine 09/26/19 documented as of this encounter
--- OUTSIDE RECORDS SUMMARY | 2024-01-22 13:26 | XMS_ITS | Encounter Summary ---
Author Organization [facility] [place] [address] Care Team Providers Care Churn Operator Name Role Phone Christiana Moore OIL FIELD LABORER Primary Care Provider [phone] Encounter Details Date Type Department Care Team (Late st Contact Info) Description 12/04/2019 Telephone [place] [phone] Clement Damon MD [facility] [place] [address] Social History Tobacco Use Types Packs/Day Years [...] PM EDT Office [place] [address] Manjula Kitchen MD [facility] [place] [address] documented as of this encounter Visit Diagnoses Not on filedocumented in this encounter Care Teams Churn Operator Relationship Specialty Start Date End Date Christiana [place] APRN [address] [place] [address] PCP - General Family Medicine 09/26/19 documented as of this encounter
--- OUTSIDE RECORDS SUMMARY | 2024-01-22 13:26 | XMS_ITS | Encounter Summary ---
Author Organization [facility] [place] [address] Care Team Providers Care Automatic Vulcanizing Lead Operator Name Role Phone OscarChristiana RYAN Primary Care Provider [phone] Reason for Visit * Reason Onset Date Comments Other 11/03/2019 Encounter Details Date Type Department Care Team (Late st Contact Info) Description 11/03/2019 Telephone [place] [address] Monica Price, RN Other Social History Tobacco [...] PM EDT Office [place] [address] Manjula Kitchen MD [facility] [place] [address] documented as of this encounter Visit Diagnoses Not on filedocumented in this encounter Care Teams Automatic Vulcanizing Lead Operator Relationship Specialty Start Date End Date Christiana [place] APRN [address] [place] [address] PCP - General Family Medicine 09/26/19 documented as of this encounter
--- OUTSIDE RECORDS SUMMARY | 2024-01-22 13:26 | XMS_ITS | Encounter Summary ---
Author Organization [facility] [place] [address] Care Team Providers Care Poultry Debeaker Name Role Phone Christiana [place] RYAN Primary Care Provider Encounter Details Date Type Department Care Team (Late st Contact Info) Description 12/03/2019 Telephone [place] [address] Angelita Sepulveda Social History Tobacco Use Types [...] refill on oxycodone. Request sent to pager [phone]. documented in this encounter Plan of Treatment Upcoming Encounters Date Type Department Care Team (Late st Contact Info) Description 02/08/2024 1:00 PM EDT Office [place] [address] Manjula Kitchen MD [facility] [place] [address] documented as of this encounter Visit Diagnoses Not on filedocumented in this encounter Care Teams Poultry Debeaker Relationship Specialty Start Date End Date Christiana [place] APRN [address] [place] [address] PCP - General Family Medicine 09/26/19 documented as of this encounter
--- OUTSIDE RECORDS SUMMARY | 2024-01-22 13:26 | XMS_ITS | Encounter Summary ---
Author Organization [facility] Address [facility] [place] [address] Care Team Providers Care Tip Printer Name Role Phone Christiana Moore RYAN Primary Care Provider [phone] Reason for Visit * Reason Comments Wound Check * Auth/Cert Specialty Diagnoses / Procedures Referred By Contac t Referred To Contact Diagnoses Chest wall abscess Cellulitis of back except buttock Procedures ER IPI Admit Referral ID Status Reason Start Date Expiration Date Visits Re quested Visits Authorized [id number] 1 1 Encounter Details Date Type Department Care Team (Latest Contact Info) Description 11/09/2019 10:25 AM EDT - 11/14/2019 3:13 PM EDT Hospital Encounter 4 [place] [address] Armen Mckeon MD [facility] [place] [address] Robert Brambila MD [facility] [place] [address] Piyush Rojo MD [facility] [place] [address] Cellulitis of back except buttock; Chest wall [...] Hospital Course: Tree Lantigua was admitted to [facility] on 11/09/2019 via the Same Day Program. He was brought to the operating room on 11/09/2019 - 11/10/[address] Piyush Rooj performed surgery as described above. He tolerated [...] a nurse in the Thoracic Clinic at [phone]. After hours or on weekends or holidays please call: [phone] and ask to speak to the Thoracic [...] the Thoracic Clinic or the Thoracic Surgeon director sanitation bureau after hours. We are unable to refill [...] place, such as a locked cabinet or [employer]. ?? Unused opioids (oxycodone, hydromorphone/Dilaudid, morphine, fentanyl, [...] AM Bella Arteaga APRN Thoracic Surgery at [facility] Arrive at: Sports Nutritionist Area [phone] Future Orders Complete By Expires Referral to Home Health - at DISCHARGE [XKI7223 CPT(R)] As directed Process Instructions: Scheduling Instructions: Comments: DOCUMENTATION FOR VNA SERVICES (INCLUDING THOSE PATIENTS WITH MEDICARE COVERAGE REQUIRING HOME VNA SERVICES AND/OR HOSPICE SERVICES) PATIENT'S LOCATION: Tree Lantigua [address] [place] [address] (home) Cell: Telephone Information: Long Distance Billing Operator's Name: Self In discussion with the attending physician, it is certified that this patient is under their care and that they, or a Nurse Practitioner,Clinical Nurse specialist or Physician Lead Applications Developer who is working directly with them, had [...] change VAC dressing. HOME HEALTH CARE AGENCY: [facility] PHONE: [phone] FAX: [phone] Start of care: 24 to 48 hours [...] Moore APRN [address] / [place] [address] All [facility] agencies which cover the area of patient's residence have been reviewed, either verbally carmel writing, and patient/family have chosen the home health care agency noted Questions: Agency name and contact information: [facility] Patient location post discharge: Home What services are requested: Registered Nurse Start date: Responsible MD post discharge contact info: PCP Provider Contact Information: Primary Care Provider: Christiana Moore APRN [phone] Discharge References/Attachments: Discharge References/Attachments None For questions regarding this document or issues relating to this hospitalization on the Thoracic Surgery Service, please contact Dr. Alvarez's office at . Signed: Bella Arteaga APRN 11/14/2019 Thoracic Surgery [facility] CC: PCP: Christiana Moore APRN [...] a nurse in the Thoracic Clinic at [phone]. After hours or on weekends or holidays please call: [phone] and ask to speak to the Thoracic [...] the Thoracic Clinic or the Thoracic Surgeon director sanitation bureau after hours. We are unable to refill [...] acute post-operative pain related to surgery. Tree Shun Faustincornelio has been advised to take the [...] 3:13 PM EDT OFFICE OF CARE MANAGEMENT Safety Equipment Testing Specialist Final DISCHARGE NOTE: Discussed Plan for discharge with primary team and pt's family. Plan for Discharge:Home with VNA Homecare services provided by: [facility] For wound vac changes Homecare orders have [...] a copy of this letter. to drive Safety Equipment Testing Specialist to follow until discharged if any new needs arise. Kassie Marie RNCM Phone [phone] Pager: # [phone] * Shannan Latif RN - 11/14/2019 2:11 [...] ; Age: 1 1955; 64 y.o. Room/Bed: [address] [place] [address] Today's Date: 11/14/19 ID: Tree Lantigua is [...] Nilo Larry 11/14/2019 Thoracic Surgery Team pager [phone] * Todd Alvarez PA - 11/13/2019 9:49 AM EDT [facility] Department of Thoracic Surgery Inpatient Progress Note Patient Name: Tree Lantigua Patient : 1955 Patient Patient Location: [address] [place] [address] Attending Surgeon: ARMEN MCKEON REED MILLINGTON, TIMOTHY [...] to Hosp-Admission (Current) from 11/09/2019 in 4 [facility] Admission (Discharged) from 10/24/2019 in 3 [facility] Weight 77.1 kg (170 lb) [...] Micro: OR culture 11/10/2019 Abscess/Wound Aspirate Culture [[id number]] (Abnormal) Collected: 11/10/19 0025 Lab Status: Preliminary [...] Sensitive 1 Gentamicin is not appropriate for [place]-therapy. 2 Penicillin resistant, Nafcillin susceptible Staphylococci are [...] SOCRATES Rao 11/13/2019 Thoracic Surgery Service Pager [phone] * iNlo Larry - 11/13/2019 6:09 AM EDT Thoracic [...] Nilo Jarrett 11/13/2019 Thoracic Surgery Team pager #[phone] * Flakita Castro RN - 11/12/2019 7:00 [...] Discharge planning ) Service Thoracic Pager # [phone] e-DH reviewed. Report received from [facility] Patient plan of care discussed with Team and Nursing to assessment for continuing care and discharge needs. [facility]: 3 DECISION MAKER: Attempt Cardiopulmonary Resuscitation - Inpatient, <no information> Ongoing Issues: Needs wound vac and VNA plan is to change vac at bedside on Sunday and d/c after. [facility] for : ( RN, ) Barriers to Discharge: Wound Vac approval All paperwork sent to [facility] rep. Still waiting for wound measurements / team notified Family Concerns: None at this time Anticipate Transport at time of discharge: Home with wound vac via family car Plan: CM will continue to follow for coordination of care and to facilitate discharge planning. Kassie Marie RN Pager # [phone] The patient has been provided a list of Home Health Agencies/DME vendors which serve their preferred geographic area. A letter describing our affiliations was reviewed with them and they were educated about their right to choose where referrals are placed.. Patient requests referral to [facility] PHONE: [phone] FAX: [phone] Expected date of discharge: 11/14/19 Referral routed to the Lasting Machine Operator Bed for matching with agency/vendor and to provide any required information. * Benedicto Cameron PA - 11/12/2019 8:45 AM EDT [facility] Department of Thoracic Surgery Inpatient Progress Note Patient Name: Tree Lantigua Patient : 1955 Patient Patient Location: [facility]/419-B Attending Surgeon: ARMEN MCKEON, PIYUSH SHAH ID: [...] to Hosp-Admission (Current) from 11/09/2019 in 4 [facility] Admission (Discharged) from 10/24/2019 in 3 [facility] Weight 77.1 kg (170 lb) [...] Alvarez/SOCRATES Albarran 11/12/2019 Thoracic Surgery Service Pager [phone] * Nilo Larry - 11/12/2019 6:07 AM [...] Nilo Larry 11/12/2019 Thoracic Surgery Team pager [phone] * Kassie Marie RN - 11/11/2019 3:41 PM EDT Office of Care Management (OCM /Caremanger (CM)/ Discharge planning ) Service Thoracic Pager # [phone] e-DH reviewed. Report received from [facility] Patient plan of care discussed with Team and Nursing to assessment for continuing care and discharge needs. [facility]: 2 DECISION MAKER: Attempt Cardiopulmonary Resuscitation - Inpatient, <no information> Ongoing Issues: Wet to dry dressing , Chad drain removed , PO pain meds awaiting culture results Current Referral in place:None Barriers to Discharge: Watch for wound vac will need VNA if wound vac placed Family Concerns: None at this time / [facility] is VNA of Choice Anticipate Transport at time of discharge: family Plan: CM will continue to follow for coordination of care and to facilitate discharge planning. Kassie Marie RN Pager # [phone] * Benedicto Cameron PA - 11/11/2019 8:31 AM EDT [facility] Department of Thoracic Surgery Inpatient Progress Note Patient Name: Tree Lantigua Patient : 1955 Patient Patient Location: [address] [place] [address] Attending Surgeon: ARMEN MCKEON REED MILLINGTON, TIMOTHY [...] to Hosp-Admission (Current) from 11/09/2019 in 4 [facility] Admission (Discharged) from 10/24/2019 in 3 [facility] Weight 77.1 kg (170 lb) [...] RNA Not Detected Not Detected SARS-CoV-2 Source COSMETICIAN APPRENTICE Swab Abscess/Wound Aspirate Culture Specimen: Chest; Abscess [...] SOCRATES Samuels 11/11/2019 Thoracic Surgery Service Pager [phone] * Nilo Larry - 11/11/2019 7:44 AM EDT Thoracic Surgery Inpatient Progress Note Patient Name: Tree BRINK; Age: 1 1955; 64 y.o. Room/Bed: [address] [place], [place] [address]B Today's Date: 11/11/19 ID: Tree Lantigua is [...] Nilo Larry 11/11/2019 Thoracic Surgery Team pager [phone] * Benedicto Cameron PA - 11/10/2019 6:58 PM EDT [facility] Department of Thoracic Surgery Inpatient Progress Note Patient Name: Tree Lantigua Patient : 1955 Patient Patient Location: [address] [place] [address] Attending Surgeon: ARMEN MCKEON REED MILLINGTON, TIMOTHY [...] to Hosp-Admission (Current) from 11/09/2019 in 4 [facility] Admission (Discharged) from 10/24/2019 in 3 [facility] Weight 77.1 kg (170 lb) [...] RNA Not Detected Not Detected SARS-CoV-2 Source COSMETICIAN APPRENTICE Swab Abscess/Wound Aspirate Culture Specimen: Chest; Abscess [...] SOCRATES Castle 11/10/2019 Thoracic Surgery Service Pager [phone] * Nilo Larry - 11/10/2019 7:00 AM [...] Nilo Larry 11/10/2019 Thoracic Surgery Team pager [phone] * Katya Ortiz MD - 11/10/2019 5:59 [...] RNA Not Detected Not Detected SARS-CoV-2 Source COSMETICIAN APPRENTICE Swab Physical Exam Gen: A0x3, NAD, resting comfortably CVS: RRR, no murmurs/rubs/gallops Resp: CTAB, breathing comfortably on RA, dressing in place, c/d/i, has R [address] to continuoussuction -20, no airleak Abd: [...] AM EDT 0115 Pt awake, conversing well. Andrae po sips water. Pt turned, large amount sero sang drainage through dressing and CT site. Dressing changed per MD request. 0140 Report to Aysha on 4w. Pt states he feels well and pain is Mild. Declined oxy at this time. documented in this encounter H&P Notes * Sabine Navarrete MD - 11/09/2019 1:35 PM EDT [facility] Department of Surgery Consult Note [...] history that includes Thymectomy, Radical Mediast Disssec (92967) (Right, 10/24/2019); Bronchoscopy, Diagnostic (67581) (N/A, 10/24/2019); Thoracotomy With Therapeutic Wedge Resection Initial (Right, 10/24/2019); Injection Anes Agent &/ Steroid Intercostal Nerve Ea Addl Level (56116) (Right, 10/24/2019); Thoracotomy With Therapeutic Wedge Resection [...] any questions regarding this consult, please page [phone]. ?? Sabine Navarrete MD/S PGY2 [phone] 11/09/2019 [...] ?? * Consult Note - Yen Bush [facility] - 11/11/2019 4:33 PM EDT Clinical Pharmacist Note-Vancomycin Tree Lantigua [id number] 1955 Tree Lantigua is a 64 y.o. [...] have. Alternately, during off-hours you may call [phone] to contact a pharmacist. YEN BUSH [facility] Pager [phone] * Plan of Care - Becca Wolfe [...] 30 Days: Yes was here on 10/25/19 [facility] admits in last 30 days. Anticipated Length Of Stay (If known): Vs TBD Current Decision-Making Capacity: Patient is A&Ox4 Has current decision making capacity. Advance Care Planning: Attempt Cardiopulmonary Resuscitation - Inpatient No AD in [facility]. If AD's have not been completed would be surrogate decision maker per [place] surrogate decision making law. Any patient receiving care at [facility] must abide by [place] law. The hierarchy [...] (i) The agent with financial power of senior trial attorney or a conservator appointed in accordance [...] has no concerns about navigating the home [address] [place] [address] Social & Family Supports/Community Resources: Family Extended Emergency Contact Information Primary Emergency Contact: Lillian Tyson Address: [address] [place] [address] Mobile Relation: Spouse Health/Prescription Coverage: Primary Insurance: [employer] MANAGED MEDICARE Secondary Insurance: N/A Prescription Coverage: Yes Preferred Pharmacy: [id number] [facility] [address] [address] Other: none Primary Care Provider: Christiana Moore APRN [phone] Patient/Caregiver Goals of Treatment: Deferred Potential Needs for Transition of Care: Rehab/SNF: None anticipated Home Health: None anticipated ( [facility] ) DME: None anticipated Dialysis: None anticipated [...] of care planning. Kassie Marie RN CM Safety Equipment Testing Specialist Pager # [phone] * Plan of Care - Felicia Vaca [...] (Interventions Implemented as Appropriate) 11/09/19 2100 11/09/19 9592 Viera Fall Risk History of Falling 0 [...] Operative Note Patient Name: Tree Lantigua : [id number] MR#: [id number] Case Date: 11/09/2019 - 11/10/2019 Surgeon: Surgeon(s) [...] site opened. Cavity thoroughly irrigated with pulse white sidewall tire buffer. 19F Chad drain left in the pleural [...] Rojo MD - 11/10/2019 12:58 AM EDT [facility] Operative Note Patient Name: Tree Lantigua : [id number] MR#: [id number] Case Date: 11/09/2019 - 11/10/2019 Surgeon: Surgeon(s) [...] irrigated with normal saline using the pulse white sidewall tire buffer. A previous chest tube site was anesthetized [...] Pt to ED 19 for c/o pain 12/17 at incision site following recent thoracotomy surgery. [...] PM EDT Office [place] [address] Manjula Kitchen MD [facility] [place] [address] documented as of this encounter Procedures Procedure [...] 12:25 AM EDT I&D Hematoma Seroma/Fluid Collection (35751) 11/09/2019 11:53 PM EDT right chest abscess, pleural effusion RAPID COVID-19 PCR ([facility]) STAT 11/09/2019 7:57 PM EDT INCISION & [...] the number below. ? Electronically signed by: Maurilio Mccartney [facility] ([phone]), at 11/12/2019 8:35 AM Narrative 11/12/2019 8:35 AM EDT EXAMINATION: XR [...] Electronically signed by: Maurilio Mccartney [facility]([phone]), at 11/12/2019 8:35 AM Piyush Rojo MD IMG DX ORDERABLE S * Phosphorus (11/12/2019 5:42 AM EDT) Phosphorus 3.9 2.5 - 4.5 mg/dL [facility] Blood specimen (specimen) 11/12/2019 5:42 AM EDT 11/12/2019 5:48 AM EDT Narrative Resulting Agency Comment Spec In Lab Piyush Rojo MD CHEMISTRY ORDERA BLES [facility] [place] [address] * Magnesium (11/12/2019 5:42 AM EDT) Magnesium 0.84 0.69 - 1.07 mmol/L [facility] Blood specimen (specimen) 11/12/2019 5:42 AM EDT 11/12/2019 5:48 AM EDT Narrative Resulting Agency Comment Spec In Lab Piyush Rojo MD CHEMISTRY ORDERA BLES Performing Organization Address City/[facility]/ZIP Co de Phone Number [facility] [place] [address] * (ABNORMAL) Hemogram (11/12/2019 5:42 AM EDT) White Blood Cell 10.3(H) 4.0 - 9.5 x10(3)/[facility] LABORATORY Red Blood Cell 6.27(H) 4.58 - 5.54 x10(6)/mc L [facility] Hemoglobin 12.3(L) 13.7 - 16.5 gm/dL [facility] Hematocrit 40.8 40.5 - 48.5 % [facility] Mean Cell Volume 65.1(L) 82.9 - 93.1 [facility]ORATORY Mean Cell Hemoglobin 19.6(L) 27.5 - 32.1 [facility]ORATORY Mean Cell Hemoglobin Concentration 30.1(L) 32.0 - 35.7 gm/dL [facility] Platelet 498(H) 145 - 357 x10(3)/mc L [facility] RDW Standard Deviation 34.4(L) 36.0 - 45.0 [facility]ORY RDW coefficient of variation 15.2(H) 11.4 - 13.8 % [facility] Mean Platelet Volume 9.1 7.6 - 12.9 [facility] LABORATORY NRBC% auto 0.0 % [facility] NRBC Absolute 0.000 0.000 - 0.000 x10(3)/[facility] LABORATORY Blood specimen (specimen) 11/12/2019 5:42 AM EDT 11/12/2019 5:48 AM EDT Narrative Resulting Agency Comment Spec In Lab Piyush Rojo MD HEMATOLOGY ORDER JAYCE Performing Organization Address City/[facility]/ZIP Co de Phone Number [facility] [place] [address] * Basic Metabolic Panel (non-fasting) (11/12/2019 5:42 AM EDT) Glucose 92 65 - 199 mg/dL [facility] Comment:Diabetes: >=200 mg/d L plus symptoms Blood Urea Nitrogen 15 10 - 20 mg/dL [facility] Creatinine 0.81 0.80 - 1.50 mg/dL [facility] Sodium 138 135 - 145 mmol/L [facility] Potassium 3.9 3.5 - 5.0 mmol/L [facility] Comment: Please note: ??Patients with WBC >100,000 may have falsely elevated Potassium levels. ??For accurate Potassium quantification in these patients send serum separator tube (gold top) for subsequent determinations. ??Contact the Clinical Chemistry Laboratory if there are any questions. Chloride 100 98 - 107 mmol/L [facility] Carbon Dioxide 26 22 - 31 mmol/L [facility] Anion Gap 12 5 - 15 mmol/L [facility] Calcium 9.1 8.5 - 10.5 mg/dL [facility] Est Glomerular Filtration Rate 93 >=60 mL/min/1. 73 m?? [facility] Comment: The eGFR was calculated using the CKD-EPI equation. As with all creatinine based estimates of kidney function, eGFR values calculated with the CKD-EPI equation are not accurate in patients with acute kidney failure, extremes of body mass or the acutely ill. http://[email or web address] eGFR 108 >=60 mL/min/1. 73 m?? [facility] Comment: The eGFR was calculated using the CKD-EPI equation. As with all creatinine based estimates of kidney function, eGFR values calculated with the CKD-EPI equation are not accurate in patients with acute kidney failure, extremes of body mass or the acutely ill. http://[email or web address] Blood specimen (specimen) 11/12/2019 5:42 AM EDT 11/12/2019 5:48 AM EDT Narrative Resulting Agency Comment Spec In Lab Piyush Rojo MD CHEMISTRY ORDERA BLES Performing Organization Address [facility] Co de Phone Number [facility] [place] [address] * Vancomycin, trough (11/11/2019 3:01 PM EDT) Vancomycin, Trough 9.5 mg/L [facility] Comment: Therapeutic range for complicated [...] In Lab Piyush Rojo MD CHEMISTRY ORDERA BLERadha Performing Organization Address [facility] Co de Phone Number [facility] [place] [address] * Phosphorus (11/11/2019 4:09 AM EDT) Phosphorus 3.4 2.5 - 4.5 mg/dL [facility] Blood specimen (specimen) 11/11/2019 4:09 AM EDT 11/11/2019 4:24 AM EDT Narrative Resulting Agency Comment Spec In Lab Piyush Rojo MD CHEMISTRY ORDERA BLES Performing Organization Address [facility] Co de Phone Number [facility] [place] [address] * Magnesium (11/11/2019 4:09 AM EDT) Magnesium 0.84 0.69 - 1.07 mmol/L [facility] Blood specimen (specimen) 11/11/2019 4:09 AM EDT 11/11/2019 4:24 AM EDT Narrative Resulting Agency Comment Spec In Lab Piyush Rojo MD CHEMISTRY ORDERA BLES [facility] [place] [address] * (ABNORMAL) Hemogram (11/11/2019 4:09 AM EDT) White Blood Cell 13.8(H) 4.0 - 9.5 x10(3)/[facility] LABORATORY Red Blood Cell 5.36 4.58 - 5.54 x10(6)/[facility] LABORATORY Hemoglobin 10.7(L) 13.7 - 16.5 gm/dL [facility] Hematocrit 34.8(L) 40.5 - 48.5 % [facility] Mean Cell Volume 64.9(L) 82.9 - 93.1 [facility] Mean Cell Hemoglobin 20.0(L) 27.5 - 32.1 pg [facility] Mean Cell Hemoglobin Concentration 30.7(L) 32.0 - 35.7 gm/dL [facility] Platelet 384(H) 145 - 357 x10(3)/[facility] LABORATORY RDW Standard Deviation 35.5(L) 36.0 - 45.0 [facility]ORATORY RDW coefficient of variation 15.7(H) 11.4 - 13.8 % [facility] Mean Platelet Volume 8.9 7.6 - 12.9 [facility] LABORATORY NRBC% auto 0.0 % [facility] NRBC Absolute 0.000 0.000 - 0.000 x10(3)/[facility] LABORATORY Blood specimen (specimen) 11/11/2019 4:09 AM EDT 11/11/2019 4:24 AM EDT Narrative Resulting Agency Comment Spec In Lab Piyush Rojo MD HEMATOLOGY ORDER JAYCE [facility] [place] [address] * (ABNORMAL) Basic Metabolic Panel (non-fasting) (11/11/2019 4:09 AM EDT) Glucose 117 65 - 199 mg/dL [facility] Comment:Diabetes: >=200 mg/d L plus symptoms Blood Urea Nitrogen 22(H) 10 - 20 mg/dL [facility] Creatinine 0.82 0.80 - 1.50 mg/dL [facility] Sodium 139 135 - 145 mmol/L [facility] Potassium 3.9 3.5 - 5.0 mmol/L [facility] Comment: Please note: ??Patients with WBC >100,000 may have falsely elevated Potassium levels. ??For accurate Potassium quantification in these patients send serum separator tube (gold top) for subsequent determinations. ??Contact the Clinical Chemistry Laboratory if there are any questions. Chloride 102 98 - 107 mmol/L [facility] Carbon Dioxide 25 22 - 31 mmol/L [facility] Anion Gap 12 5 - 15 mmol/L [facility] Calcium 8.6 8.5 - 10.5 mg/dL [facility] Est Glomerular Filtration Rate 93 >=60 mL/min/1. 73 m?? [facility] Comment: The eGFR was calculated using the CKD-EPI equation. As with all creatinine based estimates of kidney function, eGFR values calculated with the CKD-EPI equation are not accurate in patients with acute kidney failure, extremes of body mass or the acutely ill. http://[email or web address] eGFR 108 >=60 mL/min/1. 73 m?? [facility] Comment: The eGFR was calculated using the CKD-EPI equation. As with all creatinine based estimates of kidney function, eGFR values calculated with the CKD-EPI equation are not accurate in patients with acute kidney failure, extremes of body mass or the acutely ill. http://[email or web address] Blood specimen (specimen) 11/11/2019 4:09 AM EDT 11/11/2019 4:24 AM EDT Narrative Resulting Agency Comment Spec In Lab Piyush Rojo MD CHEMISTRY JESSICA RODRIGUEZ [facility] [place] [address] * XR Chest PA & Lateral (Generic) [...] EDT) Phosphorus 4.4 2.5 - 4.5 mg/dL [facility] Blood specimen (specimen) 11/10/2019 8:29 AM EDT 11/10/2019 8:54 AM EDT Narrative Resulting Agency Comment Spec In Lab Piyush Rojo MD CHEMISTRY ORDERA BLES [facility] [place], [place] [address] * Magnesium (11/10/2019 8:29 AM EDT) Pathologist [facility] Magnesium 0.86 0.69 - 1.07 mmol/L [facility] Blood specimen (specimen) 11/10/2019 8:29 AM EDT 11/10/2019 8:54 AM EDT Narrative Resulting Agency Comment Spec In Lab Piyush Rojo MD CHEMISTRY ORDERA BLES Performing Organization Address [facility] Co de Phone Number [facility] [place] [address] * (ABNORMAL) Hemogram (11/10/2019 8:29 AM EDT) [facility] White Blood Cell 14.1(H) 4.0 - 9.5 x10(3)/mc L [facility] Red Blood Cell 6.68(H) 4.58 - 5.54 x10(6)/mc L [facility] Hemoglobin 13.2(L) 13.7 - 16.5 gm/dL [facility] Hematocrit 42.8 40.5 - 48.5 % [facility] Mean Cell Volume 64.1(L) 82.9 - 93.1 [facility] Mean Cell Hemoglobin 19.8(L) 27.5 - 32.1 pg [facility] Mean Cell Hemoglobin Concentration 30.8(L) 32.0 - 35.7 gm/dL [facility] Platelet 485(H) 145 - 357 x10(3)/mc L [facility] RDW Standard Deviation 33.9(L) 36.0 - 45.0 [facility] RDW coefficient of variation 16.2(H) 11.4 - 13.8 % [facility] Mean Platelet Volume 9.6 7.6 - 12.9 fL [facility] NRBC% auto 0.0 % [facility] NRBC Absolute 0.000 0.000 - 0.000 x10(3)/mc L [facility] Blood specimen (specimen) 11/10/2019 8:29 AM EDT 11/10/2019 8:54 AM EDT Narrative Resulting Agency Comment Spec In Lab Piyush Rojo MD HEMATOLOGY ORDER JAYCE [facility] [address] [address] * (ABNORMAL) Basic Metabolic Panel (non-fasting) (11/10/2019 8:29 AM EDT) Glucose 123 65 - 199 mg/dL [facility] Comment:Diabetes: >=200 mg/d L plus symptoms Blood Urea Nitrogen 14 10 - 20 mg/dL [facility] Creatinine 0.75(L) 0.80 - 1.50 mg/dL [facility] Sodium 137 135 - 145 mmol/L [facility] Potassium 4.9 3.5 - 5.0 mmol/L [facility] Comment: Please note: ??Patients with WBC >100,000 may have falsely elevated Potassium levels. ??For accurate Potassium quantification in these patients send serum separator tube (gold top) for subsequent determinations. ??Contact the Clinical Chemistry Laboratory if there are any questions. Chloride 100 98 - 107 mmol/L [facility] Carbon Dioxide 21(L) 22 - 31 mmol/L [facility] Anion Gap 16(H) 5 - 15 mmol/L [facility] Calcium 9.4 8.5 - 10.5 mg/dL [facility] Est Glomerular Filtration Rate 96 >=60 mL/min/1. 73 m?? [facility] Comment: The eGFR was calculated using the CKD-EPI equation. As with all creatinine based estimates of kidney function, eGFR values calculated with the CKD-EPI equation are not accurate in patients with acute kidney failure, extremes of body mass or the acutely ill. [email or web address] eGFR 112 >=60 mL/min/1. 73 m?? [facility] Comment: The eGFR was calculated using the CKD-EPI equation. As with all creatinine based estimates of kidney function, eGFR values calculated with the CKD-EPI equation are not accurate in patients with acute kidney failure, extremes of body mass or the acutely ill. [email or web address]/[facility] H[facility] ASSOCIATIONnkf Blood specimen (specimen) 11/10/2019 8:29 AM EDT 11/10/2019 8:54 AM EDT Narrative Resulting Agency Comment Spec In Lab Piyush Rojo MD CHEMISTRY ORDERA BLES Performing Organization Address [facility] Co de Phone Number [facility] [place] [address] * Anaerobic Culture (11/10/2019 12:25 AM EDT) Anaerobic Culture No anaerobic organisms isolated [facility] Specimen from abscess (specimen) THORACIC STRUCTURE / Unknown 11/10/2019 12:25 AM EDT 11/10/2019 7:55 AM EDT Comment:RIGHT CHEST WALL ABS CESS. Narrative Resulting Agency Comment Spec In Lab Piyush Rojo MD MICROBIOLOGY - G ENERAL ORDERABLES Performing Organization Address [facility]/ZIP Co de Phone Number [facility] [place] [place] [address] * (ABNORMAL) Abscess/Wound Aspirate Culture (11/10/2019 12:25 AM EDT) Abscess/Wound Aspirate Culture Moderate Staphylococcus aureus(A) [facility] Gram Stain Moderate Neutrophils seen Few Gram Positive Cocci seen (A) [facility] Organism Staphylococcus aureus(A) [facility] Organism Gram Positive Cocci(A) [facility] Specimen from abscess (specimen) [...] Sensitive Comment:Gentamicin i s not appropriate for [place]-therapy. Staphylococcus aureus Levofloxacin VITEK 2 METHOD Sensitive [...] Sensitive Piyush Rojo MD [facility]CROBIOLOGY - [facility] ORDERABLES [facility] [place] [address] * COVID-19 PCR (11/09/2019 7:57 PM EDT) SARS-CoV-2 RNA (Rapid) Not Detected Not Detected [facility] Comment: This result should [...] using the Simplexa COVID-19 Direct Assay by [employer] as authorized by the FDA issued Emergency [...] Department of Pathology and Laboratory Medicine at [facility], certified under the Clinical Laboratory [...] Information for Healthcare Professionals (https://www.cdc.gov/coronavirus/2019-ncov/hcp/index.html). SARS-CoV-2 Source COSMETICIAN APPRENTICE Swab SHERIE BOWIE [facility] Nasopharyngeal swab (specimen) 11/09/2019 7:57 PM EDT 11/09/2019 8:53 PM EDT Comment:Symptoms->Surveillan ce Narrative Resulting Agency Comment Spec In Lab Robert Brambila MD MICROBIOLOGY - GENER AL ORDERABLES [facility] [place] [address] * CT Chest w Contrast (11/09/2019 1:54 [...] contact the number below. Armen Mckeon MD [facility] ORDERABLES * Blue Tube HOLD (11/09/2019 10:50 AM EDT) Pathologist [facility] Blue Hold Sample in lab. [facility] Blood specimen (specimen) Venous Draw / Unknown 11/09/2019 10:50 AM EDT 11/09/2019 10:54 AM EDT Emmett Reynolds MD HEMATOLOGY ORDERABLE S [facility] [place] [address] * (ABNORMAL) Differential, Automated (11/09/2019 10:50 AM EDT) Pathologist [facility] Neutrophil % 76.8 % [facility] Neutrophil Absolute 11.22(H) 1.70 - 6.10 x10(3)/ L [facility] Lymph % 10.9 % [facility] Lymphocytes Abs 1.6 0.9 - 3.2 x10(3)/ L [facility] Monocyte % 9.0 % [facility] Monocyte Abs 1.3(H) 0.3 - 0.9 x10(3)/ L [facility] Eos % 1.2 % [facility] Eosinophils Abs 0.2 0.0 - 0.4 x10(3)/ L [facility] Basophil % 0.5 % [facility] Baso Absolute 0.1 0.0 - 0.1 x10(3)/ L [facility] Immature Gran % 1.60 % [facility] Comment: Immature granulocytes(IG's)percentage and absolute count will include metamyelocytes, myelocytes, and promyelocytes. Blood smears from CBCs yielding IG's will be scanned manually for concordance. If this scan disagrees with the automated IG or if promyelocytes are noted, a manual differential will be performed. Immature Gran Absolute 0.24(H) 0.00 - 0.04 x10(3)/mc L [facility] Blood specimen (specimen) 11/09/2019 10:50 AM EDT 11/09/2019 10:53 AM EDT Narrative Resulting Agency Comment Spec In Lab Emmett Reynolds MD HEMATOLOGY ORDERABLE S [facility] [place] [address] * (ABNORMAL) Hemogram (11/09/2019 10:50 AM EDT) White Blood Cell 14.6(H) 4.0 - 9.5 x10(3)/[facility] Red Blood Cell 6.10(H) 4.58 - 5.54 x10(6)/mc [facility] Hemoglobin 12.2(L) 13.7 - 16.5 gm/dL [facility] Hematocrit 39.7(L) 40.5 - 48.5 % [facility] Mean Cell Volume 65.1(L) 82.9 - 93.1 fL [facility] Mean Cell Hemoglobin 20.0(L) 27.5 - 32.1 pg [facility] Mean Cell Hemoglobin Concentration 30.7(L) 32.0 - 35.7 gm/dL [facility] Platelet 459(H) 145 - 357 x10(3)/ L [facility] RDW Standard Deviation 35.4(L) 36.0 - 45.0 fL [facility] RDW coefficient of variation 16.5(H) 11.4 - 13.8 % [facility] Mean Platelet Volume 9.1 7.6 - 12.9 fL [facility] NRBC% auto 0.0 % [facility] NRBC Absolute 0.000 0.000 - 0.000 x10(3)/[facility] Blood specimen (specimen) 11/09/2019 10:50 AM EDT 11/09/2019 10:53 AM EDT Narrative Resulting Agency Comment Spec In Lab Emmett Reynolds MD HEMATOLOGY ORDERABLE S [facility] [place] [place] [address] * Basic Metabolic Panel (non-fasting) (11/09/2019 10:50 AM EDT) Glucose 95 65 - 199 mg/dL [facility] Comment:Diabetes: >=200 mg/d L plus symptoms Blood Urea Nitrogen 14 10 - 20 mg/dL [facility] Creatinine 0.80 0.80 - 1.50 mg/dL [facility] Sodium 138 135 - 145 mmol/L [facility] Potassium 4.4 3.5 - 5.0 mmol/L [facility] Comment: Please note: ??Patients with WBC >100,000 may have falsely elevated Potassium levels. ??For accurate Potassium quantification in these patients send serum separator tube (gold top) for subsequent determinations. ??Contact the Clinical Chemistry Laboratory if there are any questions. Chloride 100 98 - 107 mmol/L [facility] Carbon Dioxide 26 22 - 31 mmol/L [facility] Anion Gap 12 5 - 15 mmol/L [facility] Calcium 8.7 8.5 - 10.5 mg/dL [facility] Est Glomerular Filtration Rate 94 >=60 mL/min/1. 73 m?? [facility] Comment: The eGFR was calculated using the CKD-EPI equation. As with all creatinine based estimates of kidney function, eGFR values calculated with the CKD-EPI equation are not accurate in patients with acute kidney failure, extremes of body mass or the acutely ill. [email or web address]/[facility] ASSOCIATIONnkf eGFR 109 >=60 mL/min/1. 73 m?? [facility] Comment: The eGFR was calculated using the CKD-EPI equation. As with all creatinine based estimates of kidney function, eGFR values calculated with the CKD-EPI equation are not accurate in patients with acute kidney failure, extremes of body mass or the acutely ill. [email or web address]/[facility] HOSP[facility] ASSOCIATIONnkf Blood specimen (specimen) 11/09/2019 10:50 AM EDT 11/09/2019 10:53 AM EDT Narrative Resulting Agency Comment Spec In Lab Emmett Reynolds MD CHEMISTRY ORDERABLES 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 New Bag 11/14/2019 6:10 AM EDT 3.375 [...] (Active or Suspected): Skin/Skin Structure New Bag 11/12/2019 3:22 PM EDT 1 [...] Beth Briceño RN)2317 (Given - Provider: Kaye Goldberg RN) docusate sodium (Colace) capsule 100 mg 100 mg, Oral, 2 TIMES DAILY, First dose on Sun11/11/19 at 2100, Until Discontinued, Routine 0936 (Given - Provider: Sarah Beth Briceño RN)2041 (Given - Provider: Kaye Goldberg, EVER) 0948 (Given - Provider: Becca Wolfe RN)2041 (Given - Provider: Amaris Aguirre, EVER) 0900 (Not Given - Provider: Shannan Latif RN - Reason: Patient/family refused) enoxaparin (LOVENOX) injection 40 mg 40 mg, Subcutaneous, NIGHTLY, First dose on Tanna 11/13/19 at 2100, Until Discontinued, Routine 2041 (Given - Provider: Amaris Aguirre, EVER) heparin (Porcine) subcutaneous injection 5,000 Units (CANCELED) [...] 15 mg, Intravenous, ONCE, 1 dose, On Sun11/13/19 at 0230, Routine 0154 (Given - Provider: Kaye Goldberg, EVER) piperacillin-tazobactam (ZOSYN) 3.375 g vial attach to sodium chloride 0.9% 50 mL Mini-Bag Plus 3.375 g, Intravenous, EVERY 8 HOURS, First dose on Sun11/09/19 at 1451, Until Discontinued, Administer over 4 Hours, Warning Vesicant/Irritant Medication Do not administer or Y-site with lactated ringers., Indication for (Active or Suspected): Skin/Skin Structure / 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 0233 (Stopped - Provider: Regina Hutson, EVER)0617 (New Bag - Provider: Regina Hutson RN)1017 (Stopped - Provider: Sarah Beth Briceño RN)1513 (New Bag - Provider: Sarah Beth Briceño RN)1913 (Stopped - Provider: Kaye Goldberg, RN)2248 (New Bag - Provider: Kaey Goldberg, RN) 0248 (Stopped - Provider: Kaye Goldberg, RN)0741 (New Bag - Provider: Kaye Goldberg, RN)1141 (Stopped - Provider: Becca Wolfe, EVER)1548 (New Bag - Provider: Becca Wolfe, EVER)1948 (Stopped - Provider: Amaris Aguirre, RN)2319 (New [...] on Sun11/12/19 at 0900, Until Discontinued, Routine 0900 (Not Given - Provider: Sarah Beth Briceño RN - Reason: Patient/family refused) 0900 (Not Given - Provider: Becca Wolfe RN [...] Becca Wolfe RN)2041 (Given - Provider: Amaris Aguirre, EVER) 0900 (Not Given - Provider: Shannan Latif RN - Reason: Patient/family refused) sodium chloride 0.9 % (flush) flush 5 mL 5 mL, Intravenous, 2 TIMES DAILY, First dose on 11/09/19 at 2100, Until Discontinued, Recovery (Recovery-Hospital Unit), Routine 0938 (Given - Provider: Sarah Beth Briceño RN)2042 (Given - Provider: Kaye Goldberg RN) 09 (Given - Provider: Becca Wolfe RN)2041 (Given - Provider: Amaris Aguirre, EVER) 0900 (Not Given - Provider: Shannan Latif RN - Reason: See comment - Comment: infusing) vancomycin 1 g in 0.9 % sodium chloride 200 mL (CANCELED) 1 g, Intravenous, at 200 mL/hr, EVERY 12 HOURS, First dose on 11/09/19 at 1504, Until Discontinued, Maximum infusion rate is 1 gram/hour. If flushing of the face, neck, upper body, arms, and/or back occurs decrease infusion rate by 50% to reduce the severity of symptoms. This medication may have an associated drug lab level. Please see MAR for scheduled level. Warning Vesicant/Irritant Medication , STAT, Indication for (Active or Suspected): Skin/Skin Structure 0402 (New Bag - Provider: Regina Hutson [...] Routine documented in this encounter Care Teams Tip Printer Relationship Specialty Start Date End Date Christiana Moore APRN [address] [place] [address] PCP - General Family Medicine 09/26/19 documented as of this encounter
--- OUTSIDE RECORDS SUMMARY | 2024-01-22 13:26 | XMS_ITS | Encounter Summary ---
Author Organization [facility] [place] [address] Care Team Providers Care Cleaner Assistant Name Role Phone Christiana Moore APRN Primary Care Provider [phone] Reason for Visit * Auth/Cert Specialty Diagnoses / Procedures Referred By Contac t Referred To Contact Diagnoses Chest wall abscess Cellulitis of back except buttock Procedures ER IPI Admit Referral ID Status Reason Start Date Expiration Date Visits Re quested Visits Authorized [id number] 1 1 Encounter Details Date Type Department Care Team (Late st Contact Info) Description 11/09/2019 11:57 PM EDT Anesthesia Event [place] [phone] Brown Crump MD [facility] [place] [address] Marcio Pineda MD [facility] [place] [address] Anesthesia Record Procedure Summary Procedure Name Responsible [...] 1241; metacarpal vein (top of hand), right; [id number] catheter system; 20 gauge; Cammie Machado RN; [...] Chest Tube 11/10/19; 0032; Righ t; 28 macanese; 11/12/19; 0930 11/10/19 0032 by Janessa Ramirez [...] Procedure Summary Date: 11/09/19 Room / Location: [facility] OR [address] [place] [address] MAIN OR Anesthesia Start: 2356 Anesthesia Stop: 11/10/19 0100 Procedure: INCISION & DRAINAGE HEMATOMA, SEROMA OR FLD. COLLECTION, CHEST (WRVU 1.58) (Right Chest) Diagnosis: (right chest abscess, pleural effusion) Surgeon: Piyush Hobbs MD Responsible Provider: Brown Crump MD Anesthesia Type: general ASA Status: 3 - Emergent All Anesthesia Providers: Anesthesiologist: Brown Crump MD Concrete Block Layer: Chidi Porter MD Vitals Value Taken Time BP 124/75 11/10/19 0100 Temp Pulse 104 11/10/19 0102 Resp 20 11/10/19 0102 SpO2 96 % 11/10/19 010 Pain Level Vitals shown include unvalidated device data. Patient Location: PACU/[facility] [...] 2.78) performed by Quentin Carlin MD at [facility] MAIN OR ? ? PRO INJECTION ANES AGENT &/ STEROID INTERCOSTAL NERVE EA ADDL LEVEL Right 10/24/2019 NERVE BLOCK, INTERCOSTAL NERVE, MULTIPLE (WRVU 1.68) performed by Quentin Carlin MD at [facility] MAIN OR ??? PRO THORACOSCOPY WITH BIOPSY OF PLEURA Right 10/24/2019 THORACOSCOPY; WITH BIOPSY(IES) OF PLEURA (WRVU 4.58) performed by Quentin Carlin MD at [facility] MAIN OR ??? PRO THORACOTOMY WITH THERAPEUTIC WEDGE RESECTION EA ADDL Right 10/24/2019 @THORACOTOMY; W/THERAPEUTIC WEDGE RESECTION, EA ADD'L RESC, IPSILATERAL (WRVU 3) performed by Quentin Carlin MD at [facility] MAIN OR ??? PRO THORACOTOMY WITH THERAPEUTIC WEDGE RESECTION INITIAL Right 10/24/2019 @THORACOTOMY; W/ THERAPEUTIC WEDGE RESECTION , INITIAL (WRVU 15.75) performed by Quentin Carlin MD at [facility] MAIN OR ??? PRO THYMECTOMY, RADICAL MEDIAST DISSSEC Right 10/24/2019 @THYMECTOMY W/ RAD. MEDIASTINAL DISSECTION (WRVU 23.48) performed by Quentin Carlin MD at [facility] MAIN OR Social History Tobacco Use ??? [...] PM EDT Office Visit General Surgery at [facility] [place] [address] Manjula Kitchen MD [facility] [place] [address] documented as of this encounter Visit Diagnoses [...] subcutaneous injection 5,000 Units 5,000 Units, Subcutaneous, WELDER APPRENTICE TO O.R., 1 dose, On Sun11/09/19 at [...] on Sun11/10/19 at 0004, Until Sun11/10/19 at 010, Anesthesia Intra-op, Routine Given 11/10/2019 12:04 AM [...] mg documented in this encounter Care Teams Cleaner Assistant Relationship Specialty Start Date End Date Christiana Moore APRN [address] [place] [address] PCP - General Family Medicine 09/26/19 documented as of this encounter
--- OUTSIDE RECORDS SUMMARY | 2024-01-22 13:26 | XMS_ITS | Encounter Summary ---
Author Organization [facility] [place] [address] Care Team Providers Care Master Rigger Name Role Phone Oscar Christiana RYAN Primary Care Provider [phone] Reason for Visit * Reason Comments Wound Check * Auth/Cert Specialty Diagnoses / Procedures Referred By Contac t Referred To Contact Diagnoses Chest wall abscess Open wound of right chest wall with complication wound vac filled with puss Procedures EMERGENCY OBSVO Referral ID Status Reason Start Date Expiration Date Visits Re quested Visits Authorized [id number] 1 1 Encounter Details Date Type Department Care Team (Late st Contact Info) Description 12/08/2019 3:53 PM EDT - 12/09/2019 8:20 PM EDT Emergency 4 [place] [address] Armen Simon MD [facility] [place] [address] Quentin Carlin MD [facility] [place] [address] Chest wall abscess; Open wound of right [...] Hospital Course: Tree Lantigua was admitted to [facility] on 12/08/2019 viathe ED. He was [...] a nurse in the Thoracic Clinic at [phone]. After hours or on weekends or holidays please call: [phone] and ask to speak to the Thoracic Surgeon on c all. Medication: Bactrim and oxycodone was sent to [facility]. Exercise & Activity Level: As you [...] Thoracic Clinic or the Thoracic Surgeon director of collections and archives after hours. Please take over the counter [...] Referral to Home Health - at DISCHARGE [[id number] CPT(R)] As directed Process Instructions: Scheduling Instructions: Comments: DOCUMENTATION FOR VNA SERVICES (INCLUDING THOSE PATIENTS WITH MEDICARE COVERAGE REQUIRING HOME VNA SERVICES AND/OR HOSPICE SERVICES) PATIENT'S LOCATION: Tree Lantigua ? [address] [place] [address] (home) ?? Cell: Telephone Information: Mobile ?[phone] Food Photographer's Name: Self In discussion with the attending physician, it is certified that this patient is under their care and that they, or a Nurse Practitioner,Clinical Nurse specialist or Physician Bulb Grower who is working directly with them, had [...] (Per pt - should be at the [facility] [place] [place] clinic on for MD review) VAC Therapy [...] VAC dressing. ?? HOME HEALTH CARE AGENCY: [facility] ?? PHONE: [phone] FAX: [phone] Start of care: 24 to 48 hours [...] APRN ? [address] / [place] [address] ?[phone] All VNA agencies which cover the area of patient's residence have been reviewed, either verbally carmel writing, and patient/family have chosen the home health care agency noted Questions: Agency name and contact information: [facility] Patient location post discharge: home What services are requested: Registered Nurse Start date: Responsible MD post discharge contact info: Surgery services and PCP Provider Contact Information: Primary Care Provider: Christiana Moore APRN [phone] Discharge References/Attachments: Discharge References/Attachments None For questions [...] a nurse in the Thoracic Clinic at [phone]. After hours or on weekends or holidays please call: [phone] and ask to speak to the Thoracic Surgeon on c all. Medication: Bactrim and oxycodone was sent to [facility]. Exercise & Activity Level: As you [...] Thoracic Clinic or the Thoracic Surgeon director of collections and archives after hours. Please take over the counter [...] vehicle at ~1900. DC summary faxed to [facility]. * Beena Dubose RN - 12/09/2019 6:26 PM EDTSummary: VNA ED RN/CM notified that patient is medically ready for discharge home with VNA services and WOUND VAC. He has the portable WOUND VAC with him. Spouse to drive him home. Wants to use the same agency he had: Patient requests referral to: [facility] PHONE: [phone] FAX: [phone] Expected date of discharge: 12/09/2019 Referral routed to the English Teacher for matching with agency/vendor and to provide any required informationKathia Dubose RN (Jonas) ED RN/CM Cellphone: [phone] * Clement Damon MD - 12/09/2019 5:05 PM EDT [facility] Department of Thoracic Surgery Inpatient Post Op Check Note Patient Name: Tree Lantigua Patient : 1955 Patient Patient Location: [address] [place] [address] Attending Surgeon: ARMEN SIMON DAVID J ID: [...] to Hosp-Admission (Current) from 12/08/2019 in 4 [facility] ED to Hosp-Admission (Discharged) from 11/09/[address] [place] [address] Weight 77.1 kg (170 lb) 1 12/08/2019 [...] Damon MD 12/09/2019 Thoracic Surgery Service Pager [phone] * Clement Damon MD - 12/09/2019 8:47 AM EDT [facility] Department of Thoracic Surgery Inpatient Progress Note Patient Name: Tree Lantigua Patient : 1955 Patient Patient Location: [address] [place] [address] Attending Surgeon: ARMEN SIMON DAVID J ID: [...] to Hosp-Admission (Current) from 12/08/2019 in 4 [facility] ED to Hosp-Admission (Discharged) from 11/09/2019 in 4 [facility] Weight 77.1 kg (170 lb) [...] Damon MD 12/09/2019 Thoracic Surgery Service Pager [phone] * Norma Contreras RN - 12/08/2019 11:50 PM EDT Pt arrived to the floor around 2230. AAOx4. VSS. Pt oriented to unit, room, and staff. NPO at midnight for possible OR in morning. See DocFlow for assessment. Will continue to monitor. Report received from ED, RN. documented in this encounter H&P Notes * Tree Hodge MD - 12/08/2019 8:34 PM EDT [facility] Department of Thoracic Surgery Consult Note Consultation [...] site and tachycardia. He then presented to [facility] [place] [place] ED. Upon arrival, he was afebrile, tachycardic to 130s, and normotensive with expression of purulence from right back surgical site.Labs significant for mild leukocytosis to 14.5. Thoracic surgery was then consulted for management. PMH: Right anterior thymoma PSH: Past Surgical History: Procedure Laterality Date ??? PRO BRONCHOSCOPY, DIAGNOSTIC N/A 10/24/2019 BRONCHOSCOPY, DIAGNOSTIC (WRVU 2.78) performed by Quentin Carlin MD at [facility] OR ??? PRO DRAINAGE OF HEMATOMA/FLUID Right 11/09/2019 INCISION & DRAINAGE HEMATOMA, SEROMA OR FLD. COLLECTION, CHEST (WRVU 1.58) performed by Piyush Hobbs MD at [facility] OR ? ? PRO INJECTION ANES AGENT &/ STEROID INTERCOSTAL NERVE EA ADDL LEVEL Right 10/24/2019 NERVE BLOCK, INTERCOSTAL NERVE, MULTIPLE (WRVU 1.68) performed by Quentin Carlin MD at [facility] OR ??? PRO THORACOSCOPY WITH BIOPSY OF PLEURA Right 10/24/2019 THORACOSCOPY; WITH BIOPSY(IES) OF PLEURA (WRVU 4.58) performed by Quentin Carlin MD at [facility] OR ??? PRO THORACOTOMY WITH THERAPEUTIC WEDGE RESECTION EA ADDL Right 10/24/2019 @THORACOTOMY; W/THERAPEUTIC WEDGE RESECTION, EA ADD'L RESC, IPSILATERAL (WRVU 3) performed by Quentin Carlin MD at [facility] OR ??? PRO THORACOTOMY WITH THERAPEUTIC WEDGE RESECTION INITIAL Right 10/24/2019 @THORACOTOMY; W/ THERAPEUTIC WEDGE RESECTION , INITIAL (WRVU 15.75) performed by Quentin Carlin MD at [facility] OR ??? PRO THYMECTOMY, RADICAL MEDIAST DISSSEC Right 10/24/2019 @THYMECTOMY W/ RAD. MEDIASTINAL DISSECTION (WRVU 23.48) performed by Quentin Carlin MD at [facility] OR MEDS: No current facility-administered medications [...] file Gets together: Not on file Attends sikhism service: Not on file Active member of [...] and tachycardia for which he presented to [facility] [place] [place] ED. He is currently afebrile, tachycardic to [...] If you have any questions, please page [phone]. Tree Hodge MD Thoracic Surgery, Pager [phone] 12/08/2019 8:35 PM documented in this encounter [...] give broad-spectrum antibiotics. Armen Simon MD 12/08/19 1156 * Zeeshan Luna MD - 12/08/2019 3:51 [...] - 12/09/2019 1:29 PM EDTSummary: Operative Report [facility] [place] [place] Operative Note Patient Name: Tree Lantigua : [id number] MR#: [id number] Case Date: 12/09/2019 Surgeon: Surgeon(s) and Role: [...] PM EDT Office [place] [address] Manjula Kitchen MD [facility] [place] [address] documented as of this encounter Procedures Procedure [...] Debridement Muscle And Fascia 20 Sq Cm/< (61677) 12/09/2019 11:44 AM EDT chest wall abscess Incision And Drainage Complex Post Operative Wound Infection ([id number]) 12/09/2019 11:44 AM EDT chest wall abscess HEMOGRAM Routine 12/09/2019 5:07 AM EDT DIFFERENTIAL, AUTOMATED Routine 12/09/2019 5:07 AM EDT HC CBC,PLT & AUTO DIFF Routine 0 5:07 AM EDT RAPID COVID-19 PCR ([facility]/APD/NLH) STAT 12/08/2019 10:[address] CHEST [...] EDT) Anaerobic Culture No anaerobic organisms isolated [facility] Specimen from abscess (specimen) THORACIC STRUCTURE / Unknown 12/09/2019 12:34 PM EDT 12/09/2019 2:15 PM EDT Comment:RIGHT POSTERIOR LATE RAL CHEST WALL WOUND #2 Narrative Resulting Agency Comment Spec In Lab Michael Li MD MICROBIOLOGY - GENER AL ORDERABLES [facility] [place] [address] * (ABNORMAL) Abscess/Wound Aspirate Culture (12/09/2019 12:34 PM EDT) Abscess/Wound Aspirate Culture Moderate Staphylococcus aureus(A) [facility] Gram Stain Many Neutrophils seen Rare Gram Positive Cocci seen (A) [facility] Organism Staphylococcus aureus(A) [facility] Organism Gram Positive Cocci(A) [facility] Specimen from abscess (specimen) THORACIC [...] Sensitive Comment:Gentamicin i s not appropriate for Warren-therapy. Staphylococcus aureus Levofloxacin VITEK 2 METHOD Sensitive [...] METHOD Sensitive Michael Li MD MICROBIOLOGY - [facility] AL ORDERABLES [facility] [place] [address] * Anaerobic Culture (12/09/2019 12:34 PM EDT) Anaerobic Culture No anaerobic organisms isolated [facility] Specimen from abscess (specimen) THORACIC STRUCTURE / Unknown 12/09/2019 12:34 PM EDT 12/09/2019 2:14 PM EDT Comment:RIGHT POSTERIOR LATE RAL CHEST WALL WOUND #1 Narrative Resulting Agency Comment Spec In Lab Michael Li MD MICROBIOLOGY - GENER AL ORDERABLES Performing Organization Address [facility]/ZIP Co de Phone Number [facility] [place] [address] * (ABNORMAL) Abscess/Wound Aspirate Culture (12/09/2019 12:34 PM EDT) Abscess/Wound Aspirate Culture Rare Staphylococcus aureus Susceptibilities previously reported (A) [facility] Gram Stain Few Neutrophils seen No microorganisms seen. (A) [facility] Organism Staphylococcus aureus(A) [facility] Specimen from abscess (specimen) THORACIC STRUCTURE / Unknown 12/09/2019 12:34 PM EDT 12/09/2019 2:14 PM EDT Comment:RIGHT POSTERIOR LATE RAL CHEST WALL WOUND #1 Narrative Resulting Agency Comment Spec In Lab Michael Li MD MICROBIOLOGY - GENER AL ORDERABLES Performing Organization Address [facility] Co de Phone Number [facility] [place] [address] * AFB culture Other (12/09/2019 12:34 PM EDT) Acid Fast Bacilli Culture No Acid Fast Bacilli isolated [facility] Acid Fast Stain No Acid Fast Bacilli seen [facility] Specimen of unknown material (specimen) 12/09/2019 12:34 PM EDT 12/09/2019 2:15 PM EDT Comment:RIGHT POSTERIOR LATE RAL CHEST WALL WOUND #2 Narrative Resulting Agency Comment Spec In Lab Quentin Carlin MD MICROBIOLOGY - GENER AL ORDERABLES Performing Organization Address City/[facility]/ZIP Co de Phone Number [facility] [place] [address] * Fungus culture Abscess (12/09/2019 12:34 PM EDT) Fungus Culture No Fungus isolated [facility] Specimen from abscess (specimen) 12/09/2019 12:34 PM EDT 12/09/2019 2:15 PM EDT Comment:RIGHT POSTERIOR LATE RAL CHEST WALL WOUND #2 Narrative Resulting Agency Comment Spec In Lab Quentin Carlin MD MICROBIOLOGY - GENER AL ORDERABLES Performing Organization Address [facility] Co de Phone Number [facility] [place] [address] * AFB culture Other (12/09/2019 12:34 PM EDT) Acid Fast Bacilli Culture No Acid Fast Bacilli isolated [facility] Acid Fast Stain No Acid Fast Bacilli seen [facility] Specimen of unknown material (specimen) 12/09/2019 12:34 PM EDT 12/09/2019 2:14 PM EDT Comment:RIGHT POSTERIOR LATE RAL CHEST WALL WOUND #1 Narrative Resulting Agency Comment Spec In Lab Quentin Carlin MD MICROBIOLOGY - GENER AL ORDERABLES Performing Organization Address [facility] Co de Phone Number [facility] [place] [address] * Fungus culture Abscess (12/09/2019 12:34 PM EDT) Fungus Culture No Fungus isolated [facility] Specimen from abscess (specimen) 12/09/2019 12:34 PM EDT 12/09/2019 2:14 PM EDT Comment:RIGHT POSTERIOR LATE RAL CHEST WALL WOUND #1 Narrative Resulting Agency Comment Spec In Lab Quentin Carlin MD MICROBIOLOGY - GENER AL ORDERABLES Performing Organization Address [facility] Co de Phone Number [facility] [place] [address] * (ABNORMAL) Differential, Automated (12/09/2019 5:07 AM EDT) Neutrophil % 65.1 % [facility] Neutrophil Absolute 5.83 1.70 - 6.10 x10(3)/mc L [facility] Lymph % 17.7 % [facility] Lymphocytes Abs 1.6 0.9 - 3.2 x10(3)/mc L [facility] Monocyte % 11.8 % [facility] Monocyte Abs 1.1(H) 0.3 - 0.9 x10(3)/[facility] Eos % 3.5 % [facility] Eosinophils Abs 0.3 0.0 - 0.4 x10(3)/[facility] Basophil % 0.7 % [facility] Baso Absolute 0.1 0.0 - 0.1 x10(3)/[facility] Immature Gran % 1.20 % [facility] Comment: Immature granulocytes(IG's)percentage and absolute count will include metamyelocytes, myelocytes, and promyelocytes. Blood smears from CBCs yielding IG's will be scanned manually for concordance. If this scan disagrees with the automated IG or if promyelocytes are noted, a manual differential will be performed. Immature Gran Absolute 0.11(H) 0.00 - 0.04 x10(3)/[facility] Blood specimen (specimen) 12/09/2019 5:07 AM EDT 12/09/2019 5:24 AM EDT Narrative Resulting Agency Comment Spec In Lab Bill Shelton MD HEMATOLOGY ORDERAB LES Performing Organization Address City/State/[facility] Co de Phone Number [facility] [place] [address] * (ABNORMAL) Hemogram (12/09/2019 5:07 AM EDT) White Blood Cell 9.0 4.0 - 9.5 x10(3)/[facility] Red Blood Cell 5.23 4.58 - 5.54 x10(6)/[facility] Hemoglobin 10.2(L) 13.7 - 16.5 gm/dL [facility] Hematocrit 34.5(L) 40.5 - 48.5 % [facility] Mean Cell Volume 66.0(L) 82.9 - 93.1 fL [facility] Mean Cell Hemoglobin 19.5(L) 27.5 - 32.1 pg [facility] Mean Cell Hemoglobin Concentration 29.6(L) 32.0 - 35.7 gm/dL [facility] Platelet 256 145 - 357 x10(3)/mc L [facility] RDW Standard Deviation 39.6 36.0 - 45.0 fL [facility] RDW coefficient of variation 17.1(H) 11.4 - 13.8 % [facility] Mean Platelet Volume 9.8 7.6 - 12.9 fL [facility] NRBC% auto 0.0 % [facility] NRBC Absolute 0.000 0.000 - 0.000 x10(3)/mc L [facility] Blood specimen (specimen) 12/09/2019 5:07 AM EDT 12/09/2019 5:24 AM EDT Narrative Resulting Agency Comment Spec In Lab Bill Shelton MD HEMATOLOGY ORDERAB LES Performing Organization Address City/State/[facility] Co de Phone Number [facility] [place] [address] * COVID-19 PCR (12/08/2019 10:20 PM EDT) SARS-CoV-2 RNA (Rapid) Not Detected Not Detected [facility] Comment: This result should be [...] using the Simplexa COVID-19 Direct Assay by [employer] as authorized by the FDA issued Emergency [...] Department of Pathology and Laboratory Medicine at [facility], certified under the Clinical Laboratory Improvement [...] Information for Healthcare Professionals (https://www.cdc.gov/coronavirus/2019-ncov/hcp/index.html). SARS-CoV-2 Source [employer] GENERAL OPERATIONAL TEST Swab [facility] Nasopharyngeal swab (specimen) 12/08/2019 10:20 PM EDT 12/08/2019 10:57 PM EDT Comment:Symptoms->Surveillan ce Narrative Resulting Agency Comment Spec In Lab Armen Simon MD MICROBIOLOGY - GEN ERAL ORDERABLES [facility] [place] [address] * CT Chest w Contrast (12/08/2019 8:54 [...] below. ? Electronically signed by: Dominique Henley [facility] ([phone]), at 12/08/2019 9:16 PM Narrative 12/08/2019 9:16 [...] EDT) Anaerobic Culture No anaerobic organisms isolated [facility] Specimen from abscess (specimen) STRUCTURE OF BACK OF TRUNK / Unknown 12/08/2019 8:30 PM EDT 12/08/2019 8:46 PM EDT Comment:RIGHT BACK/SHOULDER INCISION Narrative Resulting Agency Comment Spec In Lab Tree Hodge MD MICROBIOLOGY - GENER AL ORDERABLES [facility] [place] [address] * (ABNORMAL) Abscess/Wound Aspirate Culture (12/08/2019 8:30 PM EDT) Abscess/Wound Aspirate Culture Many Staphylococcus aureus(A) [facility] Gram Stain Many Neutrophils seen Rare Gram Positive Cocci seen (A) [facility] Organism Staphylococcus aureus(A) [facility] Organism Gram Positive Cocci(A) [facility] Specimen from abscess (specimen) STRUCTURE [...] Sensitive Comment:Gentamicin i s not appropriate for Warren-therapy. Staphylococcus aureus Levofloxacin VITEK 2 METHOD Sensitive [...] Hodge MD MICROBIOLOGY - GENER AL ORDERABLES Performing Organization Address City/[facility]/ZIP Co de Phone Number [facility] [place] [address] * Blood culture (12/08/2019 4:11 PM EDT) Blood Culture No growth at 5 days. [facility] Blood specimen (specimen) 12/08/2019 4:11 PM EDT 12/08/2019 6:22 PM EDT Narrative Resulting Agency Comment Spec In Lab Portillo Trejo MD MICROBIOLOGY - BLOO D ORDERABLES [facility] [place] [address] * Scan, Peripheral Blood (12/08/2019 3:58 PM EDT) Pathologist [facility] Plat estimate Normal [facility] RBC Morphology Abnormal [facility] Microcyte 1-5 /HPF [facility] Hypochromia Slight [facility] Polychromasia Present >5/HPF [facility] Target Cells 1-5 /HPF [facility] Blood specimen (specimen) 12/08/2019 3:58 PM EDT 12/08/2019 5:02 PM EDT Narrative Resulting Agency Comment Spec In Lab Bart CROWELL HEMATOLOGY ORDERABLE S Performing Organization Address City/[facility]/ZIP Co de Phone Number [facility] [place] [address] * Aguilar Tube Hold (12/08/2019 3:58 PM EDT) Aguilar Hold Sample in lab. [facility] Blood specimen (specimen) Venous Draw / Unknown 12/08/2019 3:58 PM EDT 12/08/2019 5:03 PM EDT Bart CROWELL CHEMISTRY ORDERABLES [facility] [place] [address] * Gold Tube HOLD (12/08/2019 3:58 PM EDT) Gold Hold Sample in lab. [facility] Blood specimen (specimen) Venous Draw / Unknown 12/08/2019 3:58 PM EDT 12/08/2019 5:03 PM EDT Bart CROWELL CHEMISTRY ORDERABLES Performing Organization Address City/[facility]/ZIP Co de Phone Number [facility] [place] [address] * Blue Tube HOLD (12/08/2019 3:58 PM EDT) Pathologist [facility] Blue Hold Sample in lab. [facility] Blood specimen (specimen) Venous Draw / Unknown 12/08/2019 3:58 PM EDT 12/08/2019 5:03 PM EDT Bart CROWELL HEMATOLOGY ORDERABLE S Performing Organization Address [facility] Co de Phone Number [facility] [place] [address] * (ABNORMAL) Differential, Automated (12/08/2019 3:58 PM EDT) [facility] Neutrophil % 78.0 % [facility] Neutrophil Absolute 11.28(H) 1.70 - 6.10 x10(3)/mc L [facility] Lymph % 11.5 % [facility] Lymphocytes Abs 1.7 0.9 - 3.2 x10(3)/mc L [facility] Monocyte % 7.9 % [facility] Monocyte Abs 1.1(H) 0.3 - 0.9 x10(3)/mc L [facility] Eos % 0.7 % [facility] Eosinophils Abs 0.1 0.0 - 0.4 x10(3)/mc L [facility] Basophil % 0.6 % [facility] Baso Absolute 0.1 0.0 - 0.1 x10(3)/mc L [facility] Immature Gran % 1.30 % [facility] Comment: Immature granulocytes(IG's)percentage and absolute count will include metamyelocytes, myelocytes, and promyelocytes. Blood smears from CBCs yielding IG's will be scanned manually for concordance. If this scan disagrees with the automated IG or if promyelocytes are noted, a manual differential will be performed. Immature Gran Absolute 0.19(H) 0.00 - 0.04 x10(3)/mc L [facility] Blood specimen (specimen) 12/08/2019 3:58 PM EDT 12/08/2019 5:02 PM EDT Narrative Resulting Agency Comment Spec In Lab Bart CROWELL HEMATOLOGY ORDERABLE S [facility] [place] [address] * (ABNORMAL) Hemogram (12/08/2019 3:58 PM EDT) White Blood Cell 14.5(H) 4.0 - 9.5 x10(3)/mc L [facility] Red Blood Cell 6.62(H) 4.58 - 5.54 x10(6)/mc L [facility] Hemoglobin 12.9(L) 13.7 - 16.5 gm/dL [facility] Hematocrit 43.0 40.5 - 48.5 % [facility] Mean Cell Volume 65.0(L) 82.9 - 93.1 fL [facility] Mean Cell Hemoglobin 19.5(L) 27.5 - 32.1 pg [facility] Mean Cell Hemoglobin Concentration 30.0(L) 32.0 - 35.7 gm/dL [facility] Platelet 328 145 - 357 x10(3)/mc L [facility] RDW Standard Deviation 38.8 36.0 - 45.0 fL [facility] RDW coefficient of variation 18.6(H) 11.4 - 13.8 % [facility] Mean Platelet Volume 10.1 7.6 - 12.9 fL [facility] NRBC% auto 0.0 % [facility] NRBC Absolute 0.000 0.000 - 0.000 x10(3)/mc L [facility] Blood specimen (specimen) 12/08/2019 3:58 PM EDT 12/08/2019 5:02 PM EDT Narrative Resulting Agency Comment Spec In Lab Bart CROWELL HEMATOLOGY ORDERABLE S Performing Organization Address City/[facility]/ZIP Co de Phone Number [facility] [place] [address] * (ABNORMAL) Sedimentation rate (12/08/2019 3:58 PM EDT) [facility] Sedimentation Rate Automated >119(H) 2 - 37 mm/hr [facility] Comment: Effective March 19, 2019 new capillary photometric technology has resulted in a change in reference ranges. It is recommended that each ESR result be reviewed with its own age appropriate reference range. Blood specimen (specimen) 12/08/2019 3:58 PM EDT 12/08/2019 5:02 PM EDT Narrative Resulting Agency Comment Spec In Lab Portillo Trejo MD HEMATOLOGY ORDERABL ES Performing Organization Address [facility] Co de Phone Number [facility] [place] [address] * (ABNORMAL) CRP, acute inflammation (12/08/2019 3:58 PM EDT) [facility] Signature C-Reactive Protein 134.3(H) <=4.9 mg/L [facility] Blood specimen (specimen) 12/08/2019 3:58 PM EDT 12/08/2019 5:02 PM EDT Narrative Resulting Agency Comment Spec In Lab Portillo Trejo MD CHEMISTRY ORDERABLE S Performing Organization Address City/[facility] Co de Phone Number [facility] [place] [address] * (ABNORMAL) Basic Metabolic Panel (non-fasting) (12/08/2019 3:58 PM EDT) Glucose 115 65 - 199 mg/dL [facility] Comment:Diabetes: >=200 mg/d L plus symptoms Blood Urea Nitrogen 11 10 - 20 mg/dL [facility] Creatinine 0.83 0.80 - 1.50 mg/dL [facility] Sodium 136 135 - 145 mmol/L [facility] Potassium 4.0 3.5 - 5.0 mmol/L [facility] Comment: Please note: ??Patients with WBC >100,000 may have falsely elevated Potassium levels. ??For accurate Potassium quantification in these patients send serum separator tube (gold top) for subsequent determinations. ??Contact the Clinical Chemistry Laboratory if there are any questions. Chloride 95(L) 98 - 107 mmol/L [facility] Carbon Dioxide 27 22 - 31 mmol/L [facility] Anion Gap 14 5 - 15 mmol/L [facility] Calcium 9.7 8.5 - 10.5 mg/dL [facility] Est Glomerular Filtration Rate 92 >=60 mL/min/1. 73 m?? [facility] Comment: The eGFR was calculated using the CKD-EPI equation. As with all creatinine based estimates of kidney function, eGFR values calculated with the CKD-EPI equation are not accurate in patients with acute kidney failure, extremes of body mass or the acutely ill. [email or web address] [place], [place]LAHOMAnkf eGFR 107 >=60 mL/min/1. 73 m?? [facility] Comment: The eGFR was calculated using the CKD-EPI equation. As with all creatinine based estimates of kidney function, eGFR values calculated with the CKD-EPI equation are not accurate in patients with acute kidney failure, extremes of body mass or the acutely ill. [email or web address]/DHnkf Blood specimen (specimen) 12/08/2019 3:58 PM EDT 12/08/2019 5:02 PM EDT Narrative Resulting Agency Comment Spec In Lab Portillo Trejo MD CHEMISTRY ORDERABLE S [facility] [address] [place] [address] documented in this encounter Visit Diagnoses Diagnosis [...] 2 g 250 mL/hr Vancomycin Level - [facility] Order Reminder NOT APPLICABLE, PER PHARMACY, [...] Sun12/09/19 at 2100, Until Discontinued, Routine 1145 ([facility] Hold - Provider: Admin Adt - Reason: Transfer to a Procedural area)1527 ([facility] Unhold - Provider: Admin Adt) lactated Ringers 1,000 mL IV bolus at 2,000 mL/hr, Intravenous, ONCE, 1 dose, On Sun12/08/19 at 1414 1414 (Due) lactated Ringers 1,000 mL IV bolus (COMPLETED) at 2,000 mL/hr, Intravenous, ONCE, 1 dose, On Sun12/08/19 at 1558 1558 (New Bag - Provider: Renato Sheth)1628 (Stopped - Provider: Renato Krueger Head) oxyCODONE (Roxicodone) tablet 5 mg (COMPLETED) [...] Norma Contreras, RN)0621 (Stopped - Provider: Norma Contreras RN)0933 (New Bag - Provider: Eva Prater [...] RN)0934 (Given - Provider: Eva Prater RN)1145 ([facility] Hold - Provider: Admin Adt - Reason: Transfer to a Procedural area)1349 ([facility] Unhold - Provider: Darren Bennett MD) acetaminophen [...] - Reason: Transfer to a Procedural area)1349 ([facility] Unhold - Provider: Judy Banks RN)184 (Given [...] Recovery (Recovery-Hospital Unit), Routine Vancomycin Level - [facility] Order Reminder(Linked Group 2) NOT APPLICABLE, [...] draw. documented in this encounter Care Teams Master Rigger Relationship Specialty Start Date End Date Christiana Moore APRN [address] [place] [address] PCP - General Family Medicine 09/26/19 documented as of this encounter
--- OUTSIDE RECORDS SUMMARY | 2024-01-22 13:26 | XMS_ITS | Encounter Summary ---
Author Organization [facility] [place] [address] Care Team Providers Care Remnants Cutter Name Role Phone Christiana Moore APRN Primary Care Provider [phone] Encounter Details Date Type Department Care Team (Late st Contact Info) Description 12/04/2019 Orders [place] [phone] Bella Arteaga APRN [facility] [place] [address] Social History Tobacco Use Types Packs/Day Years [...] PM EDT Office [place] [phone] Manjula Kitchen MD [facility] [place] [address] documented as of this encounter Visit Diagnoses Not on filedocumented in this encounter Care Teams Remnants Cutter Relationship Specialty Start Date End Date Christiana Moore APRN [address] [place] [address] PCP - General Family Medicine 09/26/19 documented as of this encounter
--- OUTSIDE RECORDS SUMMARY | 2024-01-22 13:26 | XMS_ITS | Encounter Summary ---
Author Organization [facility] [place] [address] Care Team Providers Care In House Cra Name Role Phone Christiana Moore APRN Primary Care Provider [phone] Reason for Visit * Reason Comments Follow-up Encounter Details Date Type Department Care Team (Late st Contact Info) Description 11/25/2019 10:30 AM EDT Office [place] [address] Bella Arteaga APRN [facility] [place] [address] Surgical site infection; Encounter for surgical wound [...] Outpatient Follow Up Note Bella Arteaga APRN [place] [address] FAX: Pre Op Dx: mediastinal mass Post [...] concerns Bella Arteaga APRN 11/25/2019 Thoracic Surgery [facility] documented in this encounter Plan of Treatment Upcoming Encounters Date Type Department Care Team (Late st Contact Info) Description 02/08/2024 1:00 PM EDT Office [place] [address] Manjula Kitchen MD [facility] [place] [address] documented as of this encounter Visit Diagnoses Diagnosis Surgical site infection Encounter for surgical wound dressing change documented in this encounter Care Teams In House Cra Relationship Specialty Start Date End Date Christiana Moore APRN [address] [place] [address] PCP - General Family Medicine 09/26/19 documented as of this encounter
--- OUTSIDE RECORDS SUMMARY | 2024-01-22 13:26 | XMS_ITS | Encounter Summary ---
[place] [address] Care Team Providers Care Manager [place] Name Role Phone Christiana Moore APRN Primary Care Provider [phone] Reason for Visit * Reason Onset Date Comments Other 11/17/2019 post op call Encounter Details Date Type Department Care Team (Late st Contact Info) Description 11/17/2019 Telephone [place] [phone] Monica Price, RN Other (post op call) [...] [employer] question regarding a call from the implementation project coordinator. Plan: RTC on 11/25/19 CXR 11/25/19 Dayne Arteaga APRN for wound vac change. Tree Hoffmann Grzegorz is aware of appointments and know to call with any questions or concerns. documented in this encounter Plan of Treatment Upcoming Encounters Date Type Department Care Team (Late st Contact Info) Description 02/08/2024 1:00 PM EDT Office [place] [address] Manjula Kitchen MD [facility] [place] [address] documented as of this encounter Visit Diagnoses Not on filedocumented in this encounter Care Teams Manager [place] Relationship Specialty Start Date End Date Christiana Moore APRN [address] [place] [address] PCP - General Family Medicine 09/26/19 documented as of this encounter
--- OUTSIDE RECORDS SUMMARY | 2024-01-22 13:26 | XMS_ITS | Encounter Summary ---
[place] [address] Care Team Providers Care Crystallizer Operator Name Role Phone Christiana Moore APRN Primary Care Provider [phone] Reason for Visit * Reason Onset Date Comments Other 12/04/2019 wound vac Encounter Details Date Type Department Care Team (Late st Contact Info) Description 12/04/2019 Telephone [place] [phone] Monica Price, RN Other (wound vac) Social [...] EDTSummary: Wound Vac machine TC to [facility] wound vac company Spoke with Francisco, [...] and cartridges. He is aware that [facility] was contacted and that he will be receiving a phone call from [facility] this morning to replace his device. HE was grateful for the follow up call. He stated I just keep getting the error messages and put a new cartridge in or shut the machine off and turn it back on again. It is getting frustrating and explained that a new machine may do the trick. HE also stated that he called [facility] to report the issues with the machine and was never called back. HE knows to call with any questions or concerns. TC back from Mr. Grzegorz Lantigua is stating that the original incision toward the bottom has increased pain and swelling noted. Photo was sent via [employer] message Discussed with Dr. Carlin. No swelling [...] PM EDT Office [place] [address] Manjula Kitchen MD [facility] [place] [address] documented as of this encounter Visit Diagnoses Not on filedocumented in this encounter Care Teams Crystallizer Operator Relationship Specialty Start Date End Date Christiana Moore APRN [address] [place] [address] PCP - General Family Medicine 09/26/19 documented as of this encounter
--- OUTSIDE RECORDS SUMMARY | 2024-01-22 13:26 | XMS_ITS | Encounter Summary ---
Author Organization [facility] [place] [address] Care Team Providers Care Insurance Executive Name Role Phone Oscar Christiana RYAN Primary Care Provider [phone] Reason for Visit * Reason Comments Wound Check * Auth/Cert Specialty Diagnoses / Procedures Referred By Contac t Referred To Contact Diagnoses Chest wall abscess Cellulitis of back except buttock Procedures ER IPI Admit Referral ID Status Reason Start Date Expiration Date Visits Re quested Visits Authorized [id number] 1 1 Encounter Details Date Type Department Care Team (Late st Contact Info) Description 11/09/2019 10:00 PM EDT - 11/09/2019 11:55 PM EDT [place] [address] Piyush Rojo MD [facility] [place] [address] INCISION & DRAINAGE HEMATOMA, SEROMA OR FLD. [...] Tree Lantigua was admitted to [facility] on 11/09/2019 via the Same Day [...] a nurse in the Thoracic Clinic at [phone]. After hours or on weekends or holidays please call: [phone] and ask to speak to the Thoracic [...] the Thoracic Clinic or the Thoracic Surgeon concrete block maker after hours. We are unable to refill [...] AM Bella Arteaga APRN Thoracic Surgery at [facility] Arrive at: Netsuite Consultant Area [phone] Future Orders Complete By Expires Referral to Home Health - at DISCHARGE [LSK2674 CPT(R)] As directed Process Instructions: Scheduling Instructions: Comments: DOCUMENTATION FOR VNA SERVICES (INCLUDING THOSE PATIENTS WITH MEDICARE COVERAGE REQUIRING HOME VNA SERVICES AND/OR HOSPICE SERVICES) PATIENT'S LOCATION: Tree Lantigua [address] [place], [place] [id number] (home) Cell: Telephone Information: Retread Builder's Name: Self In discussion with the attending physician, it is certified that this patient is under their care and that they, or a Nurse Practitioner,Clinical Nurse specialist or Physician Vector Control Specialist who is working directly with them, [...] change VAC dressing. HOME HEALTH CARE AGENCY: [facility]. PHONE: [phone] FAX: [phone] Start of care: 24 to 48 hours [...] Christiana Moore APRN [address] / [facility] [address] All [facility] agencies which cover the area of patient's residence have been reviewed, either verbally carmel writing, and patient/family have chosen the home health care agency noted Questions: Agency name and contact information: [facility] Patient location post discharge: Home What services are requested: Registered Nurse Start date: Responsible MD post discharge contact info: PCP Provider Contact Information: Primary Care Provider: Christiana Moore APRN [phone] Discharge References/Attachments: Discharge References/Attachments None For questions [...] a nurse in the Thoracic Clinic at [phone]. After hours or on weekends or holidays please call: [phone] and ask to speak to the Thoracic [...] the Thoracic Clinic or the Thoracic Surgeon concrete block maker after hours. We are unable to refill [...] 3:13 PM EDT OFFICE OF CARE MANAGEMENT Manufacturing Team Leader Final DISCHARGE NOTE: Discussed Plan for discharge with primary team and pt's family. Plan for Discharge:Home with [facility] Homecare services provided by: Antonio SANABRIA For [...] a copy of this letter. to drive Manufacturing Team Leader to follow until discharged if any new needs arise. Kassie Marie RN Phone [phone] Pager: # [phone] * Shannan Latif RN - 11/14/2019 2:11 [...] Nilo Larry 11/14/2019 Thoracic Surgery Team pager #[phone] * Todd Alvarez PA - 11/13/2019 9:49 AM EDT [facility] Department of Thoracic Surgery Inpatient Progress Note Patient Name: rTee Lantigua Patient : 1955 Patient Patient Location: [address] [place] [address] Attending Surgeon: ARMEN MCKEON REED MILLINGTON, TIMOTHY [...] to Hosp-Admission (Current) from 11/09/2019 in 4 [facility] Admission (Discharged) from 10/24/2019 in 3 [facility] Weight 77.1 kg (170 lb) [...] Micro: OR culture 11/10/2019 Abscess/Wound Aspirate Culture [[id number]] (Abnormal) Collected: 11/10/19 0025 Lab Status: Preliminary [...] Sensitive 1 Gentamicin is not appropriate for Surry-therapy. 2 Penicillin resistant, Nafcillin susceptible Staphylococci are [...] SOCRATES Rao 11/13/2019 Thoracic Surgery Service Pager [phone] * Nilo Larry - 11/13/2019 6:09 AM [...] Nilo Farias 11/13/2019 Thoracic Surgery Team pager #[phone] * Flakita Castro RN - 11/12/2019 7:00 [...] Discharge planning ) Service Thoracic Pager # [phone] e-DH reviewed. Report received from [facility] Patient plan of care discussed with Team and Nursing to assessment for continuing care and discharge needs. [facility]: 3 DECISION MAKER: Attempt Cardiopulmonary Resuscitation - Inpatient, <no information> Ongoing Issues: Needs wound vac and VNA plan is to change vac at bedside on Sunday and d/c after. Current Referral in place: [facility] - Providing Services for : ( RN, ) Barriers to Discharge: Wound Vac approval All paperwork sent to [facility] rep. Still waiting for wound measurements / team notified Family Concerns: None at this time Anticipate Transport at time of discharge: Home with wound vac via family car Plan: CM will continue to follow for coordination of care and to facilitate discharge planning. Kassie Marie RN CM Pager # [phone] The patient has been provided a list of Home Health Agencies/DME vendors which serve their preferred geographic area. A letter describing our affiliations was reviewed with them and they were educated about their right to choose where referrals are placed.. Patient requests referral to [facility]. PHONE: [phone] FAX: [phone] Expected date of discharge: 11/14/19 Referral routed to the Bond Analyst for matching with agency/vendor and to provide [...] to Hosp-Admission (Current) from 11/09/2019 in 4 [facility] Admission (Discharged) from 10/24/2019 in 3 [facility] Weight 77.1 kg (170 lb) [...] Alvarez/SOCRATES Albarran 11/12/2019 Thoracic Surgery Service Pager [phone] * Nilo Larry - 11/12/2019 6:07 AM [...] Nilo Larry 11/12/2019 Thoracic Surgery Team pager #[phone] * Kassie Marie RN - 11/11/2019 3:41 PM EDT Office of Care Management (OCM /Agnes (BA)/ Discharge planning ) Service Thoracic Pager # [phone] [facility] reviewed. Report received from [facility] Patient plan of care discussed with Team and Nursing to assessment for continuing care and discharge needs. [facility]: 2 DECISION MAKER: Attempt Cardiopulmonary Resuscitation - Inpatient, <no information> Ongoing Issues: Wet to dry dressing , Chad drain removed , PO pain meds awaiting culture results Current Referral in place:None Barriers to Discharge: Watch for wound vac will need VNA if wound vac placed Family Concerns: None at this time / [facility] is [facility] of Choice Anticipate Transport at time of discharge: family Plan: CM will continue to follow for coordination of care and to facilitate discharge planning. Kassie Marie RN CM Pager # [phone] * Benedicto Cameron PA - 11/11/2019 8:31 AM EDT [facility] Department of Thoracic Surgery Inpatient Progress Note Patient Name: Tree Lantigua Patient : 1955 Patient Patient Location: [facility]/[id number] Attending Surgeon: ARMEN MCKEON REED MILLINGTON, TIMOTHY [...] to Hosp-Admission (Current) from 11/09/2019 in 4 [facility] Admission (Discharged) from 10/24/2019 in 3 [facility] Weight 77.1 kg (170 lb) [...] RNA Not Detected Not Detected SARS-CoV-2 Source TEMPLE MEAT CUTTER Swab Abscess/Wound Aspirate Culture Specimen: Chest; Abscess [...] Card: HDS, Monitor vital signs Pulm: Right chda drain -20 mmHg, ambulation may remove drain [...] SOCRATES Samuels 11/11/2019 Thoracic Surgery Service Pager [phone] * Nilo Larry - 11/11/2019 7:44 AM [...] Nilo Larry 11/11/2019 Thoracic Surgery Team pager [phone] * Benedicto Cameron PA - 11/10/2019 6:58 PM EDT [facility] Department of Thoracic Surgery Inpatient Progress Note Patient Name: Tree Lantigua Patient : 1955 Patient Patient Location: [address] [place] [address] Attending Surgeon: ARMEN MCKEON, PIYUSH SHAH ID: [...] to Hosp-Admission (Current) from 11/09/2019 in 4 [facility] Admission (Discharged) from 10/24/2019 in 3 [facility] Weight 77.1 kg (170 lb) [...] RNA Not Detected Not Detected SARS-CoV-2 Source [employer] C[employer]TER Swab Abscess/Wound Aspirate Culture Specimen: Chest; Abscess [...] SOCRATES Castle 11/10/2019 Thoracic Surgery Service Pager [phone] * Nilo Larry - 11/10/2019 7:00 AM EDT Thoracic Surgery Inpatient Progress Note Patient Name: Tree Lantigua ; Age: 1 1955; 64 y.o. Room/Bed: [address] [place], [place] [address] Today's Date: 11/10/19 ID: Tree Lantigua is [...] Nilo Larry 11/10/2019 Thoracic Surgery Team pager [phone] * Katya Ortiz MD - 11/10/2019 5:59 [...] RNA Not Detected Not Detected SARS-CoV-2 Source [employer] Swab Physical Exam Gen: A0x3, NAD, resting comfortably CVS: RRR, no murmurs/rubs/gallops Resp: CTAB, breathing comfortably on RA, dressing in place, c/d/i, has R [address] to continuoussuction -20, no airleak Abd: [...] history that includes Thymectomy, Radical Mediast Disssec (83186) (Right, 10/24/2019); Bronchoscopy, Diagnostic (87853) (N/A, 10/24/2019); Thoracotomy With Therapeutic Wedge Resection Initial (Right, 10/24/2019); Injection Anes Agent &/ Steroid Intercostal Nerve Ea Addl Level (86542) (Right, 10/24/2019); Thoracotomy With Therapeutic Wedge Resection [...] any questions regarding this consult, please page [phone]. ?? Sabine Navarrete MD/S PGY2 [phone] 11/09/2019 [...] Outcome: Ongoing (Interventions Implemented as Appropriate) 11/14/19 0691 Coping/Psychosocial Plan Of Care Reviewed With patient [...] PM EDT Clinical Pharmacist Note-Vancomycin Tree Lantigua [id number] 1955 Tree Lantigua is a 64 y.o. [...] have. Alternately, during off-hours you may call [phone] to contact a pharmacist. YEN BUSH RPH Pager [phone] * Plan of Care - Becca Wolfe [...] 30 Days: Yes was here on 10/25/19 [facility] admits in last 30 days. Anticipated Length Of Stay (If known): Vs TBD Current Decision-Making Capacity: Patient is A&Ox4 Has current decision making capacity. Advance Care Planning: Attempt Cardiopulmonary Resuscitation - Inpatient No AD in [facility]. If AD's have not been completed would be surrogate decision maker per [place] surrogate decision making law. Any patient receiving care at [facility] must abide by [place] law. The hierarchy for surrogate decision making [...] (i) The agent with financial power of insurance attorney or a conservator appointed in accordance [...] has no concerns about navigating the home [address] [place] [address] Social & Family Supports/Community Resources: Family Extended Emergency Contact Information Primary Emergency Contact: Lillian Tyson Address: [address] [place] [address] [place] Relation: Spouse Health/Prescription Coverage: Primary Insurance: AARP MANAGED MEDICARE Secondary Insurance: N/A Prescription Coverage: Yes Preferred Pharmacy: [id number] - [place], [place] - [address] [place] [address] AT [facility] [place] [facility] [address] [address] Other: none Primary Care Provider: Christiana Moore APRN [phone] Patient/Caregiver Goals of Treatment: Deferred Potential Needs for Transition of Care: Rehab/SNF: None anticipated Home Health: None anticipated ( [facility] ) DME: None anticipated Dialysis: None [...] of care planning. Kassie Marie RN CM Manufacturing Team Leader Pager # [phone] * Plan of Care - Felicia Vaca [...] Patient Specific Preferences Likes to be caled Dai Patient Specific Goals Wants to sleep Patient Specific Interventions Decrease stimulation Mutuality/Individual Preferences What Anxieties, Fears or Concerns Do You Have About Your Health or Care? Questions about chest tube What Information Would Help Us Give You More Personalized Care? Likes to ambulate frequently Goal: Fall Prevention-Safe Patient Handling Outcome: Ongoing (Interventions Implemented as Appropriate) 11/09/19 2100 11/09/19 9449 Viera Fall Risk History of Falling 0 -- Secondary Diagnosis 15 -- Ambulatory Aids 0 -- Intravenous Therapy/Heparin/Saline Lock 20 -- Gait/Transferring 0 -- Mental Status 0 -- Score 35 -- OTHER Viear Fall Risk Med -- Restraint Interventions Safety [...] Operative Note Patient Name: Tree Lantigua : [id number] MR#: [id number] Case Date: 11/09/2019 - 11/10/2019 Surgeon: Surgeon(s) [...] site opened. Cavity thoroughly irrigated with pulse sales coordinator. 19F Chad drain left in the pleural [...] Rojo MD - 11/10/2019 12:58 AM EDT [facility] Operative Note Patient Name: Tree Lantigua : [id number] MR#: [id number] Case Date: 11/09/2019 - 11/10/2019 Surgeon: Surgeon(s) [...] irrigated with normal saline using the pulse sales coordinator. A previous chest tube site was anesthetized [...] PM EDT Office [place] [address] Manjula Kitchen MD [facility] [place] [place] [address] documented as of this encounter Procedures Procedure [...] 12:25 AM EDT I&D Hematoma Seroma/Fluid Collection ([id number]) 11/09/2019 11:53 PM EDT right chest abscess, pleural effusion RAPID COVID-19 PCR ([facility]) STAT 11/09/2019 7:57 PM EDT INCISION [...] number below. Electronically signed by: Maurilio Mccartney [facility]([phone]), at 11/12/2019 8:35 AM Piyush Rojo MD IMG DX ORDERABLE S * Phosphorus (11/12/2019 5:42 AM EDT) Phosphorus 3.9 2.5 - 4.5 mg/dL [facility] Blood specimen (specimen) 11/12/2019 5:42 AM EDT 11/12/2019 5:48 AM EDT Narrative Resulting Agency Comment Spec In Lab Piyush Rojo MD CHEMISTRY ORDERA BLES Performing Organization Address [facility] Co de Phone Number [facility] [place] [address] * Magnesium (11/12/2019 5:42 AM EDT) Magnesium 0.84 0.69 - 1.07 mmol/L [facility] Blood specimen (specimen) 11/12/2019 5:42 AM EDT 11/12/2019 5:48 AM EDT Narrative Resulting Agency Comment Spec In Lab Piyush Rojo MD CHEMISTRY ORDERA BLES Performing Organization Address [facility]/ZIP Co de Phone Number [facility] [place] [address] * (ABNORMAL) Hemogram (11/12/2019 5:42 AM EDT) White Blood Cell 10.3(H) 4.0 - 9.5 x10(3)/[facility] Red Blood Cell 6.27(H) 4.58 - 5.54 x10(6)/[facility] Hemoglobin 12.3(L) 13.7 - 16.5 gm/dL [facility] Hematocrit 40.8 40.5 - 48.5 % [facility] Mean Cell Volume 65.1(L) 82.9 - 93.1 [facility] Mean Cell Hemoglobin 19.6(L) 27.5 - 32.1 pg [facility] Mean Cell Hemoglobin Concentration 30.1(L) 32.0 - 35.7 gm/dL [facility] Platelet 498(H) 145 - 357 x10(3)/[facility] RDW Standard Deviation 34.4(L) 36.0 - 45.0 [facility] RDW coefficient of variation 15.2(H) 11.4 - 13.8 % [facility] Mean Platelet Volume 9.1 7.6 - 12.9 [facility] NRBC% auto 0.0 % [facility] NRBC Absolute 0.000 0.000 - 0.000 x10(3)/[facility] Blood specimen (specimen) 11/12/2019 5:42 AM EDT 11/12/2019 5:48 AM EDT Narrative Resulting Agency Comment Spec In Lab Piyush Rojo MD HEMATOLOGY ORDER JAYCE [facility] [place] [address] * Basic Metabolic Panel (non-fasting) (11/12/2019 5:42 AM EDT) Pathologist [facility] Glucose 92 65 - 199 mg/dL [facility] Comment:Diabetes: >=200 mg/d L plus symptoms Blood Urea Nitrogen 15 10 - 20 mg/dL [facility] Creatinine 0.81 0.80 - 1.50 mg/dL [facility] Sodium 138 135 - 145 mmol/L [facility] Potassium 3.9 3.5 - 5.0 mmol/L [facility] Comment: Please note: ??Patients with WBC >100,000 may have falsely elevated Potassium levels. ??For accurate Potassium quantification in these patients send serum separator tube (gold top) for subsequent determinations. ??Contact the Clinical Chemistry Laboratory if there are any questions. Chloride 100 98 - 107 mmol/L [facility] Carbon Dioxide 26 22 - 31 mmol/L [facility] Anion Gap 12 5 - 15 mmol/L [facility] Calcium 9.1 8.5 - 10.5 mg/dL [facility] Est Glomerular Filtration Rate 93 >=60 mL/min/1. 73 m?? [facility] Comment: The eGFR was calculated using the CKD-EPI equation. As with all creatinine based estimates of kidney function, eGFR values calculated with the CKD-EPI equation are not accurate in patients with acute kidney failure, extremes of body mass or the acutely ill. http://[email or web address] eGFR 108 >=60 mL/min/1. 73 m?? [facility] Comment: The eGFR was calculated using the CKD-EPI equation. As with all creatinine based estimates of kidney function, eGFR values calculated with the CKD-EPI equation are not accurate in patients with acute kidney failure, extremes of body mass or the acutely ill. [email or web address] Blood specimen (specimen) 11/12/2019 5:42 AM EDT 11/12/2019 5:48 AM EDT Narrative Resulting Agency Comment Spec In Lab Piyush Rojo MD CHEMISTRY ORDERA BLES [facility] [place] [address] * Vancomycin, trough (11/11/2019 3:01 PM EDT) Vancomycin, Trough 9.5 mg/L Kathryn SALAS [facility] Comment: Therapeutic range for complicated infections [...] MD CHEMISTRY ORDERA BLES Performing Organization Address [facility] de Phone Number [facility] [place] [address] * Phosphorus (11/11/2019 4:09 AM EDT) Phosphorus 3.4 2.5 - 4.5 mg/dL [facility] Blood specimen (specimen) 11/11/2019 4:09 AM EDT 11/11/2019 4:24 AM EDT Narrative Resulting Agency Comment Spec In Lab Piyush Rojo MD CHEMISTRY ORDERA BLES Performing Organization Address [facility] Co de Phone Number [facility] [place] [address] * Magnesium (11/11/2019 4:09 AM EDT) Magnesium 0.84 0.69 - 1.07 mmol/L [facility] Blood specimen (specimen) 11/11/2019 4:09 AM EDT 11/11/2019 4:24 AM EDT Narrative Resulting Agency Comment Spec In Lab Piyush Rojo MD CHEMISTRY ORDERA BLES Performing Organization Address City/[facility] Co de Phone Number [facility] [place] [address] * (ABNORMAL) Hemogram (11/11/2019 4:09 AM EDT) White Blood Cell 13.8(H) 4.0 - 9.5 x10(3)/mc L [facility] Red Blood Cell 5.36 4.58 - 5.54 x10(6)/mc L [facility] Hemoglobin 10.7(L) 13.7 - 16.5 gm/dL [facility] Hematocrit 34.8(L) 40.5 - 48.5 % [facility] Mean Cell Volume 64.9(L) 82.9 - 93.1 fL [facility] Mean Cell Hemoglobin 20.0(L) 27.5 - 32.1 pg [facility] Mean Cell Hemoglobin Concentration 30.7(L) 32.0 - 35.7 gm/dL [facility] Platelet 384(H) 145 - 357 x10(3)/mc L [facility] RDW Standard Deviation 35.5(L) 36.0 - 45.0 fL [facility] RDW coefficient of variation 15.7(H) 11.4 - 13.8 % [facility] Mean Platelet Volume 8.9 7.6 - 12.9 [facility] NRBC% auto 0.0 % [facility] NRBC Absolute 0.000 0.000 - 0.000 x10(3)/mc L [facility] Blood specimen (specimen) 11/11/2019 4:09 AM EDT 11/11/2019 4:24 AM EDT Narrative Resulting Agency Comment Spec In Lab Piyush Rojo MD HEMATOLOGY ORDER JAYCE [facility] [place] [address] * (ABNORMAL) Basic Metabolic Panel (non-fasting) (11/11/2019 4:09 AM EDT) Glucose 117 65 - 199 mg/dL [facility] Comment:Diabetes: >=200 mg/d L plus symptoms Blood Urea Nitrogen 22(H) 10 - 20 mg/dL [facility] Creatinine 0.82 0.80 - 1.50 mg/dL [facility] Sodium 139 135 - 145 mmol/L [facility] Potassium 3.9 3.5 - 5.0 mmol/L [facility] Comment: Please note: ??Patients with WBC >100,000 may have falsely elevated Potassium levels. ??For accurate Potassium quantification in these patients send serum separator tube (gold top) for subsequent determinations. ??Contact the Clinical Chemistry Laboratory if there are any questions. Chloride 102 98 - 107 mmol/L [facility] Carbon Dioxide 25 22 - 31 mmol/L [facility] Anion Gap 12 5 - 15 mmol/L [facility] Calcium 8.6 8.5 - 10.5 mg/dL [facility] Est Glomerular Filtration Rate 93 >=60 mL/min/1. 73 m?? [facility] Comment: The eGFR was calculated using the CKD-EPI equation. As with all creatinine based estimates of kidney function, eGFR values calculated with the CKD-EPI equation are not accurate in patients with acute kidney failure, extremes of body mass or the acutely ill. [email or web address]/[facility]nkf eGFR 108 >=60 mL/min/1. 73 m?? [facility] Comment: The eGFR was calculated using the CKD-EPI equation. As with all creatinine based estimates of kidney function, eGFR values calculated with the CKD-EPI equation are not accurate in patients with acute kidney failure, extremes of body mass or the acutely ill. [email or web address]/DHnkf Blood specimen (specimen) 11/11/2019 4:09 AM EDT 11/11/2019 4:24 AM EDT Narrative Resulting Agency Comment Spec In Lab Piyush RODRIGUEZ [facility] [place] [address] * XR Chest PA & Lateral (Generic) [...] EDT) Phosphorus 4.4 2.5 - 4.5 mg/dL [facility] Blood specimen (specimen) 11/10/2019 8:29 AM EDT 11/10/2019 8:54 AM EDT Narrative Resulting Agency Comment Spec In Lab Piyush Rojo MD CHEMISTRY ORDERA BLES [facility] [place] [address] * Magnesium (11/10/2019 8:29 AM EDT) Magnesium 0.86 0.69 - 1.07 mmol/L [facility] Blood specimen (specimen) 11/10/2019 8:29 AM EDT 11/10/2019 8:54 AM EDT Narrative Resulting Agency Comment Spec In Lab Piyush Rojo MD CHEMISTRY ORDERA BLES Performing Organization Address City/State/[facility] Co de Phone Number [facility] [place] [address] * (ABNORMAL) Hemogram (11/10/2019 8:29 AM EDT) [facility] White Blood Cell 14.1(H) 4.0 - 9.5 x10(3)/ L [facility] Red Blood Cell 6.68(H) 4.58 - 5.54 x10(6)/[facility] Hemoglobin 13.2(L) 13.7 - 16.5 gm/dL [facility] Hematocrit 42.8 40.5 - 48.5 % [facility] Mean Cell Volume 64.1(L) 82.9 - 93.1 [facility] Mean Cell Hemoglobin 19.8(L) 27.5 - 32.1 pg [facility] Mean Cell Hemoglobin Concentration 30.8(L) 32.0 - 35.7 gm/dL [facility] Platelet 485(H) 145 - 357 x10(3)/[facility] RDW Standard Deviation 33.9(L) 36.0 - 45.0 [facility] [facility] RDW coefficient of variation 16.2(H) 11.4 - 13.8 % [facility] Mean Platelet Volume 9.6 7.6 - 12.9 [facility] LABORATORY NRBC% auto 0.0 % [facility]ORATORY NRBC Absolute 0.000 0.000 - 0.000 x10(3)/ L [facility] Blood specimen (specimen) 11/10/2019 8:29 AM EDT 11/10/2019 8:54 AM EDT Narrative Resulting Agency Comment Spec In Lab Piyush Rojo MD HEMATOLOGY ORDER JAYCE [facility] [place] [address] * (ABNORMAL) Basic Metabolic Panel (non-fasting) (11/10/2019 8:29 AM EDT) Glucose 123 65 - 199 mg/dL [facility] Comment:Diabetes: >=200 mg/d L plus symptoms Blood Urea Nitrogen 14 10 - 20 mg/dL [facility] Creatinine 0.75(L) 0.80 - 1.50 mg/dL [facility] Sodium 137 135 - 145 mmol/L [facility] Potassium 4.9 3.5 - 5.0 mmol/L [facility] Comment: Please note: ??Patients with WBC >100,000 may have falsely elevated Potassium levels. ??For accurate Potassium quantification in these patients send serum separator tube (gold top) for subsequent determinations. ??Contact the Clinical Chemistry Laboratory if there are any questions. Chloride 100 98 - 107 mmol/L [facility] Carbon Dioxide 21(L) 22 - 31 mmol/L [facility] Anion Gap 16(H) 5 - 15 mmol/L [facility] Calcium 9.4 8.5 - 10.5 mg/dL [facility] Est Glomerular Filtration Rate 96 >=60 mL/min/1. 73 m?? [facility] Comment: The eGFR was calculated using the CKD-EPI equation. As with all creatinine based estimates of kidney function, eGFR values calculated with the CKD-EPI equation are not accurate in patients with acute kidney failure, extremes of body mass or the acutely ill. [email or web address] eGFR 112 >=60 mL/min/1. 73 m?? [facility] Comment: The eGFR was calculated using the CKD-EPI equation. As with all creatinine based estimates of kidney function, eGFR values calculated with the CKD-EPI equation are not accurate in patients with acute kidney failure, extremes of body mass or the acutely ill. [email or web address] Blood specimen (specimen) 11/10/2019 8:29 AM EDT 11/10/2019 8:54 AM EDT Narrative Resulting Agency Comment Spec In Lab Piyush Rojo MD CHEMISTRY ORDERA BLES Performing Organization Address [facility] Co de Phone Number [facility] [place] [address] * Anaerobic Culture (11/10/2019 12:25 AM EDT) Anaerobic Culture No anaerobic organisms isolated [facility] Specimen from abscess (specimen) THORACIC STRUCTURE / Unknown 11/10/2019 12:25 AM EDT 11/10/2019 7:55 AM EDT Comment:RIGHT CHEST WALL ABS CESS. Narrative Resulting Agency Comment Spec In Lab Piyush Rojo MD MICROBIOLOGY - G ENERAL ORDERABLES Performing Organization Address [facility] Co de Phone Number [facility] [place] [address] * (ABNORMAL) Abscess/Wound Aspirate Culture (11/10/2019 12:25 AM EDT) Abscess/Wound Aspirate Culture Moderate Staphylococcus aureus(A) [facility] Gram Stain Moderate Neutrophils seen Few Gram Positive Cocci seen (A) [facility] Organism Staphylococcus aureus(A) [facility] Organism Gram Positive Cocci(A) [facility] Specimen from abscess (specimen) THORACIC [...] Sensitive Comment:Gentamicin i s not appropriate for [place]-therapy. Staphylococcus aureus Levofloxacin VITEK 2 METHOD Sensitive [...] Sensitive Piyush Rojo MD [facility] [place] [address] * COVID-19 PCR (11/09/2019 7:57 PM EDT) [facility] SARS-CoV-2 RNA (Rapid) Not Detected Not Detected [facility] Comment: This result should be [...] using the Simplexa COVID-19 Direct Assay by [employer] as authorized by the FDA issued Emergency [...] Information for Healthcare Professionals (https://www.cdc.gov/coronavirus/2019-ncov/hcp/index.html). SARS-CoV-2 Source [employer] Swab SHERIE BOWIE [facility] Nasopharyngeal swab (specimen) 11/09/2019 7:57 PM EDT 11/09/2019 8:53 PM EDT Comment:Symptoms->Surveillan ce Narrative Resulting Agency Comment Spec In Lab Robert Brambila MD MICROBIOLOGY - GENER AL ORDERABLES [facility] [place] [address] * CT Chest w Contrast (11/09/2019 1:54 [...] AM EDT) Blue Hold Sample in lab. [facility] Blood specimen (specimen) Venous Draw / Unknown 11/09/2019 10:50 AM EDT 11/09/2019 10:54 AM EDT Emmett Reynolds MD HEMATOLOGY ORDERABLE S Performing Organization Address City/[facility]/ZIP Co de Phone Number [facility] [place] [address] * (ABNORMAL) Differential, Automated (11/09/2019 10:50 AM EDT) Neutrophil % 76.8 % [facility] Neutrophil Absolute 11.22(H) 1.70 - 6.10 x10(3)/mc L [facility] Lymph % 10.9 % [facility] Lymphocytes Abs 1.6 0.9 - 3.2 x10(3)/ L [facility] Monocyte % 9.0 % [facility] Monocyte Abs 1.3(H) 0.3 - 0.9 x10(3)/ L [facility] Eos % 1.2 % [facility] Eosinophils Abs 0.2 0.0 - 0.4 x10(3)/[facility] LABORATORY Basophil % 0.5 % [facility] Baso Absolute 0.1 0.0 - 0.1 x10(3)/[facility] LABORATORY Immature Gran % 1.60 % [facility] Comment: Immature granulocytes(IG's)percentage and absolute count will include metamyelocytes, myelocytes, and promyelocytes. Blood smears from CBCs yielding IG's will be scanned manually for concordance. If this scan disagrees with the automated IG or if promyelocytes are noted, a manual differential will be performed. Immature Gran Absolute 0.24(H) 0.00 - 0.04 x10(3)/ L [facility] Blood specimen (specimen) 11/09/2019 10:50 AM EDT 11/09/2019 10:53 AM EDT Narrative Resulting Agency Comment Spec In Lab Emmett Reynolds MD HEMATOLOGY ORDERABLE S Performing Organization Address City/[facility]/ZIP Co de Phone Number [facility] [place] [address] * (ABNORMAL) Hemogram (11/09/2019 10:50 AM EDT) [facility] White Blood Cell 14.6(H) 4.0 - 9.5 x10(3)/ L [facility] Red Blood Cell 6.10(H) 4.58 - 5.54 x10(6)/[facility] LABORATORY Hemoglobin 12.2(L) 13.7 - 16.5 gm/dL [facility] Hematocrit 39.7(L) 40.5 - 48.5 % [facility] Mean Cell Volume 65.1(L) 82.9 - 93.1 fL [facility] Mean Cell Hemoglobin 20.0(L) 27.5 - 32.1 pg [facility] Mean Cell Hemoglobin Concentration 30.7(L) 32.0 - 35.7 gm/dL [facility] Platelet 459(H) 145 - 357 x10(3)/[facility] LABORATORY RDW Standard Deviation 35.4(L) 36.0 - 45.0 fL [facility] RDW coefficient of variation 16.5(H) 11.4 - 13.8 % [facility] Mean Platelet Volume 9.1 7.6 - 12.9 fL [facility] NRBC% auto 0.0 % [facility] NRBC Absolute 0.000 0.000 - 0.000 x10(3)/[facility] LABORATORY Blood specimen (specimen) 11/09/2019 10:50 AM EDT 11/09/2019 10:53 AM EDT Narrative Resulting Agency Comment Spec In Lab Emmett Reynolds MD HEMATOLOGY ORDERABLE S [facility] [place] [address] * Basic Metabolic Panel (non-fasting) (11/09/2019 10:50 AM EDT) Glucose 95 65 - 199 mg/dL [facility] Comment:Diabetes: >=200 mg/d L plus symptoms Blood Urea Nitrogen 14 10 - 20 mg/dL [facility] Creatinine 0.80 0.80 - 1.50 mg/dL [facility] Sodium 138 135 - 145 mmol/L [facility] Potassium 4.4 3.5 - 5.0 mmol/L [facility] Comment: Please note: ??Patients with WBC >100,000 may have falsely elevated Potassium levels. ??For accurate Potassium quantification in these patients send serum separator tube (gold top) for subsequent determinations. ??Contact the Clinical Chemistry Laboratory if there are any questions. Chloride 100 98 - 107 mmol/L [facility] Carbon Dioxide 26 22 - 31 mmol/L [facility] Anion Gap 12 5 - 15 mmol/L [facility] Calcium 8.7 8.5 - 10.5 mg/dL [facility] Est Glomerular Filtration Rate 94 >=60 mL/min/1. 73 m?? [facility] Comment: The eGFR was calculated using the CKD-EPI equation. As with all creatinine based estimates of kidney function, eGFR values calculated with the CKD-EPI equation are not accurate in patients with acute kidney failure, extremes of body mass or the acutely ill. [email or web address]/[email or web address] LINDSAYnkf eGFR 109 >=60 mL/min/1. 73 m?? [facility] Comment: The eGFR was calculated using the CKD-EPI equation. As with all creatinine based estimates of kidney function, eGFR values calculated with the CKD-EPI equation are not accurate in patients with acute kidney failure, extremes of body mass or the acutely ill. [email or web address]/[facility]IND[facility]Ynkf Blood specimen (specimen) 11/09/2019 10:50 AM EDT 11/09/2019 10:53 AM EDT Narrative Resulting Agency Comment Spec In Lab Emmett Reynolds MD CHEMISTRY ORDERABLES [facility] [place] [address] * XR Chest PA & Lateral (Generic) [...] the number below. ? Electronically signed by: YURIY Hernandez [facility] ([phone]), at 11/09/2019 11:31 AM Narrative 11/09/2019 11:31 AM EDT EXAMINATION: XR [...] (5 mg/mL) injection ONCE PRN, Starting on Sun11/10/19 at 0051, Until Sun11/14/19 at 1713, Intra-Operative [...] Oral, EVERY 6 HOURS PRN, Starting on Sun20 at 0540, Until Sun11/14/19 at 1713, Pain, [...] Provider: Regina Hutson RN)0611 (Given - Provider: Rgeina Hutson RN)1148 (Given - Provider: Sarah Beth [...] on Sun11/13/19 at 2100, Until Discontinued, Routine 2041 (Given - Provider: Amaris Aguirre, EVER) heparin (Porcine) subcutaneous injection 5,000 Units (CANCELED) 5,000 Units, Subcutaneous, EVERY 8 HOURS SCHEDULED, First dose on Sun11/10/19 at 0745, Until Discontinued, Routine 0612 (Given - Provider: Regina Hutson RN)1528 (Given - Provider: Sarah Beth Briceño RN)2243 (Given - Provider: Kaye Goldberg RN) ketorolac (TORADOL) injection 15 mg (COMPLETED) [...] 0230, Routine 0154 (Given - Provider: Kaye Goldberg RN) piperacillin-tazobactam (ZOSYN) 3.375 g vial attach to [...] Kaye Goldberg, RN)2248 (New Bag - Provider: Kaye Goldberg, RN) 0248 (Stopped - Provider: Kaye Goldberg, RN)0741 (New Bag - Provider: Kaye Goldberg, RN)1141 (Stopped - Provider: Becca Wolfe, EVER)1548 (New Bag - Provider: Becca Wolfe RN)1948 (Stopped - Provider: Amaris Aguirre, EVER)2319 (New Bag - Provider: Amaris Aguirre, EVER) 0319 (Stopped - Provider: Amaris Aguirre, EVER)0610 (New Bag - Provider: Amaris Aguirre RN)1010 (Stopped - Provider: Shannan Latif RN)1451 (Not Given - Provider: Shannan Latif RN [...] Beth Briceño RN)204 (Given - Provider: Kaye Goldberg RN) 0949 (Given - Provider: Becca Wolfe RN)204 (Given - Provider: Amaris Augirre RN) 0900 (Not Given - Provider: Shannan [...] Routine documented in this encounter Care Teams Insurance Executive Relationship Specialty Start Date End Date Christiana Moore APRN [address] [place] [address] PCP - General Family Medicine 09/26/19 documented as of this encounter
--- OUTSIDE RECORDS SUMMARY | 2024-01-22 13:27 | XMS_ITS | Encounter Summary ---
[place] [address] Care Team Providers Care Calendering Machine Operator Name Role Phone Oscar Christiana RYAN Primary Care Provider [phone] Reason for Referral * Diagnostic Test (Routine) - Closed Specialty Diagnoses / Procedures Referred By Contac t Referred To Contact Radiology Diagnoses Mediastinal mass Procedures NM PET CT Skull Base to Mid-thigh Jose Alvarez MD [facility] [place] [address] [place] [address] Referral ID Status Reason Start Date Expiration Date V isits Requested Visits Authorized [id number] Closed Specialty Service Requested 10/06/2019 11/20/2019 1 1 Reason for Visit * Reason Comments Mass * Consultation (Urgent) - Specialty Diagnoses / Procedures Referred By Contac t Referred To Contact Thoracic Surgery Diagnoses Mediastinal mass Mediastinal Mass Sadie Cavazos MD [address] [place] [address] [facility] Thoracic Surg [address] [place] [phone] Referral ID Status Reason Start Date Expiration Date V isits Requested Visits Authorized [id number] Consult, [facility] PCP Updated and/or Approved 09/26/2019 09/25/2020 12 12 Encounter Details Date Type Department Care Team (Late st Contact Info) Description 09/30/2019 1:00 PM EDT Office Visit [place] [address] Jose Alvarez MD [facility] [place] [address] Mediastinal mass Social History Tobacco Use Types [...] check in for you PET scan at [facility] [address]. Please refrain from eating or drinking anything after midnight SundayOctober 06 - Water only after midnight SundayOctober 07 until after PET scan. This includes NO GUM, MINTS, TIC TAC's, no candy, etc.. If you do eat or drink anything, your test will be canceled and rescheduled for a later date. You will check in at [facility] [address] for your Pulmonary Function Testing. This testing will take less than one hour. Your procedure is scheduled for Sunday. You will receive a phone call from the OR nurses on October after 12pm through 6 pm. They will confirm your arrival time, reviewwhat medications to take and when to stop eating and drinking. Your procedure will occur in [facility] area [address]. A thoracotomy is a 3 [...] at home before you are discharged : [id number] mg alternate with ibuprofen 200 mg (2-3 [...] Attending Outpatient Consultation Note Jose Alvarez MD [place] [address] FAX: Date of Consultation: 09/30/2019 This consultation [...] file Gets together: Not on file Attends caodaism service: Not on file Active member of [...] no SOB, Ortho: knee pain has been retirement, dull new pain in his joints but [...] or concerns BHARTI Oscar 09/30/2019 Thoracic Surgery [facility] I have seen the patient and reviewed the medical student's above history. The assessment and plan were formulated in discussion with me. Please see my note for details. JOSE ALVAREZ MD documented in this encounter H&P Notes * Jose Alvarez MD - 09/30/2019 1:00 PM EDT Thoracic Surgery Attending Outpatient Consultation Note Jose Alvarez MD [place] [address] FAX: Date of Consultation: 09/30/2019 This consultation [...] file Gets together: Not on file Attends caodaism service: Not on file Active member of [...] no SOB, Ortho: knee pain has been retirement, dull new pain in his joints but [...] PM EDT Office [place] [address] Manjula Kitchen MD [facility] [place] [address] documented as of this encounter Procedures Procedure [...] the number below. ? Electronically signed by: Chris Sutton [facility] ([phone]), at 10/08/2019 11:40 AM Narrative 10/08/2019 11:40 AM EDT EXAMINATION: NM PET CT SKULL BASE TO MID-THIGH ? CLINICAL HISTORY: Metastatic disease evaluation hx of mediastinal mass, possible thymoma stage IV, please eval for changes, evidence of disease, metastatic disease TECHNIQUE: Following IV injection of 71-otredy-7-deoxyglucose (FDG) a standard uptake of approximately 60 [...] Agency Comment Unexpected Finding Jose Alvarez MD IMG PET ORDERABLES * Pulmonary Function Testing (10/07/2019 11:59 PM EDT) Narrative Gary Hines MD - 10/07/2019 11:59 PM EDT Gary Hines MD ? 10/12/2019 ??1:37 PM FVC , FEV1, FEV1/FVC within normal limits. Diffusing capacity within normal limits. Resting oxygen saturation on room air was normal. IMPRESSION: Within normal limits. Jose Alvarez MD PFT ORDERABLES * Scan, Peripheral Blood (09/30/2019 4:03 PM EDT) Pathologist [facility] Plat estimate Normal [facility] RBC Morphology Abnormal [facility] Microcyte 1-5 /HPF [facility] Blood specimen (specimen) 09/30/2019 4:03 PM EDT 09/30/2019 4:09 PM EDT Narrative Resulting Agency Comment Spec In Lab Jose Alvarez MD HEMATOLOGY ORDERABLE S [facility] [place] [address] * (ABNORMAL) Differential, Automated (09/30/2019 4:03 PM EDT) [facility] Neutrophil % 80.2 % [facility] Neutrophil Absolute 8.70(H) 1.70 - 6.10 x10(3)/mc L [facility] Lymph % 11.1 % [facility] Lymphocytes Abs 1.2 0.9 - 3.2 x10(3)/mc L [facility] Monocyte % 5.8 % [facility] Monocyte Abs 0.6 0.3 - 0.9 x10(3)/mc L [facility] Eos % 0.8 % [facility] Eosinophils Abs 0.1 0.0 - 0.4 x10(3)/mc L [facility] Basophil % 0.6 % [facility] Baso Absolute 0.1 0.0 - 0.1 x10(3)/mc L [facility] Immature Gran % 1.50 % [facility] Comment: Immature granulocytes(IG's)percentage and absolute count will include metamyelocytes, myelocytes, and promyelocytes. Blood smears from CBCs yielding IG's will be scanned manually for concordance. If this scan disagrees with the automated IG or if promyelocytes are noted, a manual differential will be performed. Immature Gran Absolute 0.16(H) 0.00 - 0.04 x10(3)/mc L [facility] Blood specimen (specimen) 09/30/2019 4:03 PM EDT 09/30/2019 4:09 PM EDT Narrative Resulting Agency Comment Spec In Lab Jose Alvarez MD HEMATOLOGY ORDERABLE S [facility] [place] [address] * (ABNORMAL) Hemogram (09/30/2019 4:03 PM EDT) White Blood Cell 10.8(H) 4.0 - 9.5 x10(3)/ L [facility] Red Blood Cell 6.48(H) 4.58 - 5.54 x10(6)/mc L [facility] Hemoglobin 13.4(L) 13.7 - 16.5 gm/dL [facility] Hematocrit 44.0 40.5 - 48.5 % [facility] Mean Cell Volume 67.9(L) 82.9 - 93.[address] [facility] Mean Cell Hemoglobin 20.7(L) 27.5 - 32.[address] [facility] Mean Cell Hemoglobin Concentration 30.5(L) 32.0 - 35.7 gm/dL [facility] Platelet 321 145 - 357 x10(3)/ L [facility] RDW Standard Deviation 37.6 36.0 - 45.[address] [facility] RDW coefficient of variation 17.3(H) 11.4 - 13.8 % [facility] Mean Platelet Volume 9.4 7.6 - 12.[address] [facility] NRBC% auto 0.0 % [facility] NRBC Absolute 0.000 0.000 - 0.000 x10(3)/mc L [facility] Blood specimen (specimen) 09/30/2019 4:03 PM EDT 09/30/2019 4:09 PM EDT Narrative Resulting Agency Comment Spec In Lab Jose Alvarez MD HEMATOLOGY ORDERABLE S [facility] [place] [address] * (ABNORMAL) Comprehensive metabolic panel (non-fasting) (09/30/2019 4:03 PM EDT) Glucose 111 65 - 199 mg/dL [facility] Comment:Diabetes: >=200 mg/d L plus symptoms Blood Urea Nitrogen 13 10 - 20 mg/dL [facility] Creatinine 0.79(L) 0.80 - 1.50 mg/dL [facility] Sodium 135 135 - 145 mmol/L [facility] Potassium 3.9 3.5 - 5.0 mmol/L [facility] Comment: Please note: ??Patients with WBC >100,000 may have falsely elevated Potassium levels. ??For accurate Potassium quantification in these patients send serum separator tube (gold top) for subsequent determinations. ??Contact the Clinical Chemistry Laboratory if there are any questions. Chloride 101 98 - 107 mmol/L [facility] Carbon Dioxide 24 22 - 31 mmol/L [facility] Anion Gap 10 5 - 15 mmol/L [facility] Calcium 9.0 8.5 - 10.5 mg/dL [facility] Protein, Total 7.8 6.1 - 8.0 gm/dL [facility] Albumin 3.9 3.2 - 5.2 gm/dL [facility] Aspartate Aminotransferase 23 0 - 39 unit/L [facility] Alanine Aminotransferase 11 0 - 55 unit/L [facility] Alkaline Phosphatase 87 40 - 130 unit/L [facility] Bilirubin, Total 0.3 0.2 - 1.3 mg/dL [facility] Est Glomerular Filtration Rate 94 >=60 mL/min/1. 73 m?? [facility] Comment: The eGFR was calculated using the CKD-EPI equation. As with all creatinine based estimates of kidney function, eGFR values calculated with the CKD-EPI equation are not accurate in patients with acute kidney failure, extremes of body mass or the acutely ill. [email or web address]/[email or web address] ALTUSnk eGFR 109 >=60 mL/min/1. 73 m?? [facility] Comment: The eGFR was calculated using the CKD-EPI equation. As with all creatinine based estimates of kidney function, eGFR values calculated with the CKD-EPI equation are not accurate in patients with acute kidney failure, extremes of body mass or the acutely ill. [email or web address]/[email or web address] ALTUSnkf Blood specimen (specimen) 09/30/2019 4:03 PM EDT 09/30/2019 4:09 PM EDT Narrative Resulting Agency Comment Spec In Lab Jose Alvarez MD CHEMISTRY ORDERABLES Performing Organization Address [facility] Co de Phone Number [facility] [place] [address] * EKG 12 Lead (09/30/2019 3:58 PM EDT) Ventricular rate 70 BPM MUSE SYSTEM Atrial Rate 70 BPM MUSE SYSTEM P-R Interval 158 ms MUSE SYSTEM QRS Duration 92 ms MUSE SYSTEM Q-T Interval 394 ms MUSE SYSTEM QTC Calculated (Bezet) 425 ms MUSE SYSTEM Calculated P [place] 45 degrees MUSE SYSTEM Calculated R [place] 21 degrees MUSE SYSTEM Calculated T [place] 43 degrees MUSE SYSTEM INTERPRETATION Normal sinus rhythm Possible Left atrial enlargement Left ventricular hypertrophy Abnormal ECG No previous ECGs available Confirmed by MD ALBERT SALVATORE ([id number]) on 10/01/2019 4:46:14 PM MUSE SYSTEM 09/30/2019 3:58 PM EDT 10/01/2019 4:46 PM EDT Jose Alvarez MD ECG ORDERABLES [facility] documented in this encounter Visit Diagnoses Diagnosis Mediastinal mass Swelling, mass, or lump in chest Mediastinal mass Swelling, mass, or lump in chest Mediastinal mass Swelling, mass, or lump in chest documented in this encounter Care Teams Calendering Machine Operator Relationship Specialty Start Date End Date Christiana Moore APRN [address] [place] [address] PCP - General Family Medicine 09/26/19 documented as of this encounter
--- OUTSIDE RECORDS SUMMARY | 2024-01-22 13:27 | XMS_ITS | Encounter Summary ---
Author Organization [facility] Address [address] [place] [address] Care Team Providers Care Technical Business Systems Analyst Name Role Phone Unknown, Provider Primary Care Provider [phone] Encounter Details Date Type Department Care Team (Late st Contact Info) Description 11/27/2020 Lab Requisition [facility] Pathology & Laboratory Medicine - [facility] [address] [place] [address] Outr Resulting Lab, Provider Social History Tobacco [...] 0.0 - 4.5 ng/mL 11/29/2020 14:08 EDT [facility] Blood VENOUS BLOOD / Unknown 11/26/2020 10:52 EDT 11/28/2020 16:16 EDT Narrative [facility] - 11/29/2020 14:08 EDT NOTE: Serum PSA concentration should not be interpreted as absolute evidence for the presence or absence of malignant disease. Assayed on [employer] a Man.aur XPT using chemiluminescent technology.??Values obtained by using different assay methods cannot be used interchangeably. Provider Outr Resulting Lab CHEMISTRY & BLOOD GAS ORDERABLES [facility] [address] [place] [address] documented in this encounter Visit Diagnoses Not on filedocumented in this encounter Care Teams Technical Business Systems Analyst Relationship Specialty Start Date End Date Unknown, Provider, PCP - General 10/22/20 documented as of this encounter
--- OUTSIDE RECORDS SUMMARY | 2024-01-22 13:27 | XMS_ITS | Encounter Summary ---
Author Organization [facility] Address [address] [place] [address] Care Team Providers Care Community Liaison Officer Name Role Phone Unknown, Provider Primary Care Provider [phone] Encounter Details Date Type Department Care Team (Late st Contact Info) Description 03/15/2023 Lab Requisition [facility] Pathology & Laboratory Medicine - [facility] [address] [place] [address] Carlos Adamson MD [address] [place] [address] [phone] Disorder of the skin and subcutaneous tissue, [...] explore management options, if applicable. 03/20/2023 11:05 [facility] Final Diagnosis A. 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 See comment. 03/20/2023 11:05 [facility] Diagnosis Comment The excision shows [...] evidence of a neoplastic process. 03/20/2023 11:05 [facility] Attestation By the signature below, the attending physician certifies that they have 1) personally conducted a gross and/or microscopic examination of the described specimen(s), and/or personally interpreted the results of laboratory testing of the described specimen(s), and 2) personally rendered or confirmed the above diagnosis. 03/20/2023 11:05 [facility] at [address]5 Microscopic Description Sections [...] no deep bacteria are identified. 03/20/2023 11:05 [facility] Clinical History Clinical diagnosis code: L98.9 03/20/2023 11:05 [facility] Gross Description A. Received [...] face. Beti Friend 03/16/2023 10:44 03/20/2023 11:05 [facility] Performing Lab [facility] 03/20/2023 11:05 [facility] Scanned Images 03/20/2023 11:05 [facility] Tissue SPECIMEN FROM SKIN / Unknown 03/15/2023 7:45 EST 03/15/2023 23:26 EST Carlos Adamson MD PATHOLOGY ORDERABLES [facility] [address] [place] [address] documented in this encounter Visit Diagnoses Diagnosis Disorder of the skin and subcutaneous tissue, unspecified documented in this encounter Care Teams Community Liaison Officer Relationship Specialty Start Date End Date Unknown, Provider, PCP - General 10/22/20 documented as of this encounter
--- OUTSIDE RECORDS SUMMARY | 2024-01-22 13:27 | XMS_ITS | Encounter Summary ---
Author Organization [facility] Address [address] [place] [address] Care Team Providers Care Bracelet And Brooch Maker Name Role Phone Unknown, Provider Primary Care Provider [phone] Encounter Details Date Type Department Care Team (Late st Contact Info) Description 09/25/2019 Lab Requisition [facility] Pathology & Laboratory Medicine - [facility] [address] [place] [address] Outr Resulting Lab, Provider Social History Tobacco [...] 0.0 - 4.5 ng/mL 09/26/2019 10:40 EDT [facility] Blood VENOUS BLOOD / Unknown 09/24/2019 14:40 EDT 09/25/2019 15:54 EDT Narrative [facility] - 09/26/2019 10:40 EDT NOTE: Serum PSA concentration should not be interpreted as absolute evidence for the presence or absence of malignant disease. Assayed on [employer] LIQVIDaur XPT using chemiluminescent technology.??Values obtained by using different assay methods cannot be used interchangeably. Provider Outr Resulting Lab CHEMISTRY & BLOOD GAS ORDERABLES [facility] [address] [place] [address] documented in this encounter Visit Diagnoses Not on filedocumented in this encounter Care Teams Bracelet And Brooch Maker Relationship Specialty Start Date End Date Unknown, Provider, PCP - General 10/22/20 documented as of this encounter
--- OUTSIDE RECORDS SUMMARY | 2024-01-22 13:27 | XMS_ITS | Encounter Summary ---
Author Organization [facility] [place] [address] Care Team Providers Care Dynamics Ax Consultant Name Role Phone Unavailable Primary Care Provider Unavailabl e Encounter Details Date Type Department Care Team (Late st Contact Info) Description 09/25/2019 Ancillary Procedure Radiology Library at [facility] [place] [address] Christiana Moore APRN [address] [place] [address] Social History Tobacco Use Types Packs/Day Years [...] PM EDT Office [place] [phone] Manjula Kitchen MD [facility] [place] [address] documented as of this encounter Procedures Procedure Name Priority Date/Time Associated Diagnosis Comments FILM LIBRARY STORAGE ONLY DX CHEST Routine 09/25/2019 12:00 AM EDT documented in this encounter Results * Film Library- Storage Only DX Chest (09/25/2019 12:00 AM EDT) Narrative [facility] - 09/26/2019 2:28 PM EDT This exam is auto-finalizing. It's purpose is for storage only. Christiana Moore APRN IMSharmila FILM LIBRARY ORD ERABLES YURI[facility] LEUNG [place], [place] documented in this encounter Visit Diagnoses Not on filedocumented in this encounter
--- OUTSIDE RECORDS SUMMARY | 2024-01-22 13:27 | XMS_ITS | Encounter Summary ---
Author Organization [facility] Address [address] [place] [address] Care Team Providers Care Television Actor Name Role Phone Unknown, Provider Primary Care Provider [phone] Encounter Details Date Type Department Care Team (Late st Contact Info) Description 10/25/2020 12:30 EDT Phlebotomy Only [facility] 2 Phlebotomy [address] [place] [address] Hollow Handle Bench Worker, Acc Phlebotomy Primary osteoarthritis involving multiple joints; [...] Lyme Ab Negative Negative 10/25/2020 14:49 EDT [facility] Blood VENOUS BLOOD / Unknown Venipuncture / Unknown 10/25/2020 12:56 EDT 10/25/2020 13:19 EDT Narrative Authorizing Provider Result Armando Zhou MD IMMUNOLOGY AND SEROL OGY ORDERABLES Performing Organization Address City/[facility] Co de Phone Number [facility] [address] [place] [address] * CCP ANTIBODIES (10/25/2020 12:56 EDT) CCP Antibodies <2.5 <5.0 U/mL 10/25/2020 14:45 EDT [facility] Blood VENOUS BLOOD / Unknown Venipuncture / Unknown 10/25/2020 12:56 EDT 10/25/2020 13:19 EDT Narrative Authorizing Provider Result Armando Zhou MD IMMUNOLOGY AND SEROL OGY ORDERABLES Performing Organization Address City/[facility]/ZIP Co de Phone Number [facility] [address] [place] [address] documented in this encounter Visit Diagnoses Diagnosis Primary osteoarthritis involving multiple joints Polyarthralgia Pain in joint, multiple sites documented in this encounter Care Teams Television Actor Relationship Specialty Start Date End Date Unknown, Provider, PCP - General 10/22/20 documented as of this encounter
--- OUTSIDE RECORDS SUMMARY | 2024-01-22 13:27 | XMS_ITS | Encounter Summary ---
Author Organization [facility] [address] Care Team Providers Care Ratings Analyst Name Role Phone Christiana Moore APRN Primary Care Provider [phone] Encounter Details Date Type Department Care Team (Latest Contact Info) Description 10/07/2019 1:24 PM EDT - 10/07/2019 11:59 PM EDT Hospital [place] [address] Mediastinal mass Discharge Disposition: Home Social History [...] PM EDT Office [place] [address] Manjula Kitchen MD [facility] [place] [address] documented as of this encounter Procedures Procedure [...] chest documented in this encounter Care Teams Ratings Analyst Relationship Specialty Start Date End Date Christiana Moore APRN [address] [place] [address] PCP - General Family Medicine 09/26/19 documented as of this encounter
--- OUTSIDE RECORDS SUMMARY | 2024-01-22 13:27 | XMS_ITS | Encounter Summary ---
Author Organization [facility] [address] Care Team Providers Care Gas Examiner Name Role Phone Christiana Moore APRN Primary Care Provider [phone] Encounter Details Date Type Department Care Team (Late st Contact Info) Description 10/20/[place] [phone] Kim Hinton Social History Tobacco Use Types [...] patient. Ordering provider: Dr. Soares Testing Facility: [place] Date of Testin10/21/2019 Time of Testin:15am Symptoms: na * Telephone Encounter - Kim Hinton - 10/20/2019 6:12 PM EDT LM to schedule Covid testing for surgery 10/24/2019 documented in this encounter Plan of Treatment Upcoming Encounters Date Type Department Care Team (Late st Contact Info) Description 02/08/2024 1:00 PM EDT Office Visit [place] [address] Manjula Kitchen MD [facility] [place] [address] documented as of this encounter Visit Diagnoses Not on filedocumented in this encounter Additional Health Concerns Infection Onset Date Last Indicated Resolved Time Rule Out Tuberculosis 10/24/2019 10/24/20192019 2:01 PM EDT documented as of this encounter Care Teams Gas Examiner Relationship Specialty Start Date End Date Christiana Moore APRN [address] [place] [address] PCP - General Family Medicine 09/26/19 documented as of this encounter
--- OUTSIDE RECORDS SUMMARY | 2024-01-22 13:27 | XMS_ITS | Encounter Summary ---
Author Organization [facility] [place] [address] Care Team Providers Care Training Mgr Name Role Phone Oscar Christiana RYAN Primary Care Provider [phone] Reason for Visit * Diagnostic Test (Routine) - Closed Specialty Diagnoses / Procedures Referred By Contac t Referred To Contact Radiology Diagnoses Mediastinal mass Procedures NM PET CT Skull Base to Mid-thigh Quentin Carlin MD [facility] [place] [address] [facility] [place] [address] Referral ID Status Reason Start Date Expiration Date V isits Requested Visits Authorized [id number] Closed Specialty Service Requested 10/06/2019 11/20/2019 1 1 Encounter Details Date Type Department Care Team (Latest Contact Info) Description 10/08/2019 8:50 AM EDT Hospital En[place] [address] Quentin Carlin MD [facility] [place] [address] Discharge Disposition: Home Social History [...] PM EDT Office [place] [address] Manjula Kitchen MD [facility] [place] [address] documented as of this encounter Procedures Procedure [...] metastatic disease TECHNIQUE: Following IV injection of 68-nkopdp-4-deoxyglucose (FDG) a standard uptake of approximately 60 [...] Arm documented in this encounter Care Teams Training Mgr Relationship Specialty Start Date End Date Christiana Moore APRN [address] [place] [address] PCP - General Family Medicine 09/26/19 documented as of this encounter
--- OUTSIDE RECORDS SUMMARY | 2024-01-22 13:27 | XMS_ITS | Encounter Summary ---
Author Organization [facility] Address [address] [place] [address] Care Team Providers Care Lead Game Designer Name Role Phone Unknown, Provider Primary Care Provider [phone] Reason for Referral * Radiology Services (Routine) - Closed Specialty Diagnoses / Procedures Referred By Ankit hong Referred To Contact Diagnoses Primary osteoarthritis involving multiple joints Procedures XR HAND RIGHT 3 OR MORE VIEWS Guillermo Zhou Chi, MD [address] [place] [phone] Referral ID Status Reason Start Date Expiration Date Visits Re quested Visits Authorized [id number] Closed 10/25/2020 1 1 Reason for Visit * Radiology Services (Routine) - Closed Specialty Diagnoses / Procedures Referred By nAkit hong Referred To Contact Diagnoses Primary osteoarthritis involving multiple joints Procedures XR HAND RIGHT 3 OR MORE VIEWS Guillermo Zhou Chi, MD [address] [place] [phone] Referral ID Status Reason Start Date Expiration Date Visits Re quested Visits Authorized [id number] Closed 10/25/2020 1 1 Encounter Details Date Type Department Care Team (Latest Contact Info) Description 10/25/2020 11:39 EDT - 10/25/2020 23:59 EDT Hospital Encounter [facility] Radiology Xray Outpatient - [address] [address] Primary osteoarthritis involving multiple joints Discharge Disposition: [...] joints documented in this encounter Care Teams Lead Game Designer Relationship Specialty Start Date End Date Unknown, Provider, PCP - General 10/22/20 documented as of this encounter
--- OUTSIDE RECORDS SUMMARY | 2024-01-22 13:27 | XMS_ITS | Encounter Summary ---
Author Organization [facility] [place] [address] Care Team Providers Care Marketing Analytics Manager Name Role Phone Christiana Moore HORSE RACING MANAGER Primary Care Provider [phone] Reason for Visit * Reason Onset Date Comments Results 10/22/2019 Negative Covid Encounter Details Date Type Department Care Team (Late st Contact Info) Description 10/22/2019 [place] [address] Jacquelyn Hicks RN Results (Negative Covid) Social [...] PM EDT Office [place] [address] Manjula Kitchen MD [facility] [place] [address] documented as of this encounter Visit Diagnoses Not on filedocumented in this encounter Care Teams Marketing Analytics Manager Relationship Specialty Start Date End Date Christiana Moore APRN [address] [place] [address] PCP - General Family Medicine 09/26/19 documented as of this encounter
--- OUTSIDE RECORDS SUMMARY | 2024-01-22 13:27 | XMS_ITS | Encounter Summary ---
Author Organization [facility] [place] [address] Care Team Providers Care Senior Publications Specialist Name Role Phone Oscar Christiana RYAN Primary Care Provider [phone] Encounter Details Date Type Department Care Team (Late st Contact Info) Description 09/30/2019 3:15 PM EDT Clinical [place] [phone] Mediastinal mass Social History Tobacco Use Types [...] PM EDT Office Visit General Surgery at [facility] [place] [address] Manjula Kitchen MD [facility] [place] [address] documented as of this encounter Procedures Procedure [...] (Bezet) 425 ms MUSE SYSTEM Calculated P Kirksey 45 degrees MUSE SYSTEM Calculated R Kirksey 21 degrees MUSE SYSTEM Calculated T Kirksey 43 degrees MUSE SYSTEM INTERPRETATION Normal sinus [...] chest documented in this encounter Care Teams Senior Publications Specialist Relationship Specialty Start Date End Date Christiana Moore APRN [address] [place] [address] PCP - General Family Medicine 09/26/19 documented as of this encounter
--- OUTSIDE RECORDS SUMMARY | 2024-01-22 13:27 | XMS_ITS | Encounter Summary ---
Author Organization [facility] Address [address] [place] [address] Care Team Providers Care Staff Design Engineer Name Role Phone Unknown, Provider Primary Care Provider [phone] Reason for Referral * Radiology Services (Routine) - Closed Specialty Diagnoses / Procedures Referred By Contac t Referred To Contact Diagnoses Primary osteoarthritis involving multiple joints Procedures XR HAND LEFT 3 OR MORE VIEWS Guillermo Zhou Chi, MD [address] [place] [phone] Referral ID Status Reason Start Date Expiration Date Visits Re quested Visits Authorized [id number] Closed 10/25/2020 1 1 * Radiology Services (Routine) - Closed Specialty Diagnoses / Procedures Referred By Contac t Referred To Contact Diagnoses Primary osteoarthritis involving multiple joints Procedures XR HAND RIGHT 3 OR MORE VIEWS Guillermo Zhou Chi, MD [address] [place] [phone] Referral ID Status Reason Start Date Expiration Date Visits Re quested Visits Authorized [id number] Closed 10/25/2020 1 1 Reason for Visit * Reason Comments New Patient Visit Joint Pain moves around - wrist , hands, elbows, knees, ankles * Referral (Routine) - Receiving Office to Obtain Authorization Specialty Diagnoses / Procedures Referred By Contac t Referred To Contact Rheumatology Diagnoses Arthralgia Christiana Moore, ZEYAD [address] [facility] [address] [place] [address] [place] [address] [place] [address] Referral ID Status Reason Start Date Expiration Date Visits Requested Visits Authorized [id number] Receiving Office to Obtain Authorization 1 1 Encounter Details Date Type Department Care Team (Latest Contact Info) Description 10/25/2020 10:15 EDT Office Visit [facility] Rheumatology & Immunology - Main [place] [address] [place] [address] Gato Norris MD [address] [place] [phone] Primary osteoarthritis involving multiple joints (Primary [...] the correct diagnosis without unnecessary testing. A ore tester can diagnose OA and prescribe a treatment [...] assistive devices for your OA. ?? 2019 [employer] documented in this encounter Progress Notes * Gato Norris MD - 10/25/2020 1015 EDT [facility] Rheumatology and Clinical Immunology Initial Patient Visit [...] thymoma s/p recent resection. Patient presented to [facility] rheumatology clinic for a new patient assessment [...] disease Social History: - Occupation: Retired, previously [employer] - . - No significant psychosocial stressors. [...] 3.6, Cl 101, Co2 27, BUN 17, Ict Customer Support Officer 1.27, Gluc 106 (03/2020) Imaging: - Previous CT reports (CT chest w/ contrast 10/27 + 11/26) does not show any significant osseous changes or significant findings per radiology report. Assessment & Plan: Tree Lantigua is an 65-year-old Male with a Pmhx significant for thymoma s/p recent resection. Patient presented to [facility] rheumatology clinic for a new patient assessment [...] the correct diagnosis without unnecessary testing. A ore tester can diagnose OA and prescribe a treatment [...] assistive devices for your OA. ?? 2019 [employer] Tree was seen today [...] Lyme Ab Negative Negative 10/25/2020 14:49 EDT [facility] Blood VENOUS BLOOD / Unknown Venipuncture / Unknown 10/25/2020 12:56 EDT 10/25/2020 13:19 EDT Guillermo Zhou MD IMMUNOLOGY AND SEROL OGY ORDERABLES Performing Organization Address [facility] Co de Phone Number [facility] [address] [place] [address] * CCP ANTIBODIES (10/25/2020 12:56 EDT) CCP Antibodies <2.5 <5.0 U/mL 10/25/2020 14:45 EDT [facility] Blood VENOUS BLOOD / Unknown Venipuncture / Unknown 10/25/2020 12:56 EDT 10/25/2020 13:19 EDT Guillermo Zhou MD IMMUNOLOGY AND SEROL OGY ORDERABLES Performing Organization Address [facility] Co de Phone Number [facility] [address] [place] [address] * XR HAND RIGHT 3 OR MORE [...] 11/14/2019 added in this encounter Care Teams Staff Design Engineer Relationship Specialty Start Date End Date Unknown, Provider, PCP - General 10/22/20 documented as of this encounter
--- OUTSIDE RECORDS SUMMARY | 2024-01-22 13:27 | XMS_ITS | Encounter Summary ---
Author Organization [facility] [place] [address] Care Team Providers Care Control Systems Developer Name Role Phone Christiana Moore RYAN Primary Care Provider [phone] Reason for Visit * Auth/Cert Specialty Diagnoses [...] Expiration Date Visits Re quested Visits Authorized [id number] 1 1 Encounter Details Date Type Department Care Team (Late st Contact Info) Description 10/24/2019 1:52 PM EDT Anesthesia Event [place] [phone] Mata Carrillo MD [facility] [place] [address] Anesthesia Record Procedure Summary Procedure Name Responsible [...] 1241; metacarpal vein (top of hand), right; [id number] catheter system; 20 gauge; Cammie Machado RN; [...] Removal Time: 180110/24/19 1410 by Fadi Cruz, CHIEF RELAY TESTER 10/24/19 1802 by Ricardo Bello CRNA Urethral [...] 1422; metacarpal vein (top of hand), right; [id number]-[id number]-[id number] catheter system; 18 gauge, 1 in length; Ace CHIEF RELAY TESTER; site symptomatic; 10/26/19; 0140 10/24/19 1422 by Fadi Cruz CHIEF RELAY TESTER 10/26/19 0140 by Norma Gr RN Arterial Line 10/24/19; 1422; radi al artery, left; 20 gauge; Nancy SRNA; Sterile Prep, Sterile Gloves; 10/24/19; 2215 10/24/19 1422 by Fadi Cruz, CHIEF RELAY TESTER 10/24/19 2215 by Paula [place] Incision 10/24/19; [...] Procedure Summary Date: 10/24/19 Room / Location: [facility] OR [address] [place] [address] MAIN OR Anesthesia Start: 1352 Anesthesia Stop: [...] All Anesthesia Providers: Anesthesiologist: Mata Carrillo MD CHIEF RELAY TESTER: Ricardo Bello CRNA Student Nurse Toggle Press Folder And Feeder: Fadi Cruz RN Vitals Value Taken Time BP 127/82 10/24/2019 8:00 PM Temp 36.3 ??C (97.3 ??F) 10/24/2019 8:00 PM Pulse 105 10/24/2019 8:13 PM Resp 22 10/24/2019 8:13 PM SpO2 98 % 10/24/2019 8:31 PM Pain Level 0 10/24/2019 7:30 PM Vitals shown include unvalidated device data. Patient Location: PACU/[facility] Level of Consciousness: Disoriented or Confused Pain [...] discussed with patient who. Plan discussed with CHIEF RELAY TESTER. PAT Clinic Note documented in this encounter Plan of Treatment Upcoming Encounters Date Type Department Care Team (Late st Contact Info) Description 02/08/2024 1:00 PM EDT Office Visit [place] [address] Manjula Kitchen MD [facility] [place] [address] documented as of this encounter Visit Diagnoses [...] on Sun10/24/19 at 1423, Until Sun10/24/19 at 2142, Anesthesia Intra-op, Routine Given 10/24/2019 2:23 PM [...] on Sun10/24/19 at 1710, Until Sun10/24/19 at 2142, Anesthesia Intra-op, Routine Given 10/24/2019 5:10 PM EDT 0.2 mg lactated ringers infusion CONTINUOUS PRN, Starting on Sun10/24/19 at 1351, Until Sun10/24/19 at 2142, Anesthesia Intra-op New Bag 10/24/2019 5:14 PM EDT New Bag 10/24/2019 2:47 PM EDT New Bag 10/24/2019 1:51 PM EDT lidocaine (PF) (XYLOCAINE) 100 mg/5 mL (2 %) injection PRN, Starting on Sun10/24/19 at 1403, Until Sun10/24/19 at 214, Anesthesia Intra-op, Routine Given 10/24/2019 2:03 PM EDT 100 mg midazolam (PF) (VERSED) multi-dose injection PRN, Starting on Sun10/24/19 at 1359, Until Sun10/24/19 at 214, Anesthesia Intra-op, Routine Given 10/24/2019 1:59 PM EDT 2 mg PHENYLephrine (NAVARRO-SYNEPHRINE) 20 mg in sodium chloride 250 mL (standard ADULT & Pedi greater than 20kg) infusion CONTINUOUS PRN, Starting on Sun10/24/19 at 1403, Until Sun10/24/19 at 214, Anesthesia Intra-op, Routine Rate/Dose Change 10/24/2019 4:46 [...] documented as of this encounter Care Teams Control Systems Developer Relationship Specialty Start Date End Date Christiana Moore APRN [address] [place] [address] PCP - General Family Medicine 09/26/19 documented as of this encounter
--- OUTSIDE RECORDS SUMMARY | 2024-01-22 13:27 | XMS_ITS | Encounter Summary ---
Author Organization [facility] [place] [address] Care Team Providers Care Research Chief Engineer Name Role Phone Unavailable Primary Care Provider Unavailabl e Encounter Details Date Type Department Care Team (Late st Contact Info) Description 09/25/2019 12:05 AM EDT Ancillary Procedure Radiology Library at [facility] [place] [address] Christiana Moore APRN [address] [place] [address] Social History Tobacco Use Types Packs/Day Years [...] PM EDT Office [place] [address] Manjula Kitchen MD [facility] [place] [address] documented as of this encounter Procedures Procedure Name Priority Date/Time Associated Diagnosis Comments FILM LIBRARY STORAGE ONLY CT CHEST Routine 09/25/2019 12:05 AM EDT documented in this encounter Results * Film Library- Storage Only CT Chest (09/25/2019 12:05 AM EDT) Narrative YURIY LEUNG - 09/26/2019 2:29 PM EDT This exam is auto-finalizing. It's purpose is for storage only. Christiana Moore APRN IMG FILM LIBRARY ORD ERABLES [facility] [place], [place] documented in this encounter Visit Diagnoses Not on filedocumented in this encounter
--- OUTSIDE RECORDS SUMMARY | 2024-01-22 13:27 | XMS_ITS | Encounter Summary ---
Author Organization [facility] [place] [address] Care Team Providers Care Portable Track Line Marker Name Role Phone Christiana Moore APRN Primary Care Provider [phone] Encounter Details Date Type Department Care Team (Late st Contact Info) Description 10/06/2019 Orders Only [place] [phone] Quentin Carlin MD [facility] [place] [address] Social History Tobacco Use Types Packs/Day Years [...] PM EDT Office [place] [phone] Manjula Kitchen MD [facility] [place] [address] documented as of this encounter Visit Diagnoses Not on filedocumented in this encounter Care Teams Portable Track Line Marker Relationship Specialty Start Date End Date Christiana Moore APRN [address] [place] [address] PCP - General Family Medicine 09/26/19 documented as of this encounter
--- OUTSIDE RECORDS SUMMARY | 2024-01-22 13:27 | XMS_ITS | Encounter Summary ---
Author Organization [facility] Address [address] [place] [address] Care Team Providers Care Platform Man Name Role Phone Unknown, Provider Primary Care Provider [phone] Reason for Visit * Reason Onset Date Comments Other 11/11/2020 Encounter Details Date Type Department Care Team (Late st Contact Info) Description 11/11/2020 Telephone [facility] Rheumatology & Immunology - [address] [address] Gato Norris MD [address] [place] [phone] Other Social History Tobacco Use Types Packs/Day [...] on filedocumented in this encounter Care Teams Platform Man Relationship Specialty Start Date End Date Unknown, Provider, PCP - General 10/22/20 documented as of this encounter
--- OUTSIDE RECORDS SUMMARY | 2024-01-22 13:27 | XMS_ITS | Encounter Summary ---
Author Organization [facility] Address [address] [place] [address] Care Team Providers Care Dental Professional Name Role Phone Unknown, Provider Primary Care Provider [phone] Encounter Details Date Type Department Care Team (Late st Contact Info) Description 09/25/2019 Lab Requisition [facility] Pathology & Laboratory Medicine - [facility] [address] [place] [address] Outr Resulting Lab, Provider Social History Tobacco [...] C Antibody Negative Negative 09/26/2019 11:[address] [facility] Blood VENOUS BLOOD / Unknown 09/24/2019 14:40 EDT 09/25/2019 15:54 EDT Provider Outr Resulting Lab CHEMISTRY & BLOOD GAS ORDERABLES [facility] [address] [place] [address] documented in this encounter Visit Diagnoses Not on filedocumented in this encounter Care Teams Dental Professional Relationship Specialty Start Date End Date Unknown, Provider, PCP - General 10/22/20 documented as of this encounter
--- OUTSIDE RECORDS SUMMARY | 2024-01-22 13:27 | XMS_ITS | Clinical Summary ---
Author Organization [facility] Address [address] [place] [address] Care Team Providers Care Cut Tobacco Bulker Name Role Phone Unknown, Provider Primary Care Provider [phone] Allergies Active Allergy Reactions Criticality Noted Date [...] Fall Risk Screening 10/25/2021 10/25/2020 COVID-19 Vaccine (2023- season) 2023 Hepatitis C Screen Completed 09/24/2019 Procedures Procedure Name Priority Date/Time Associated Diagnosis Comments HEPATITIS C AB W REFLEX TO HCV RNA BY PCR Routine 09/24/2019 14:40 EDT from Last 3 Months or Most Recently Relevant to Health Maintenance Results * HEPATITIS C AB W REFLEX TO HCV RNA BY PCR (09/24/2019 14:40 EDT) Hep C Antibody Negative Negative 09/26/2019 11:28 EDT [facility] Blood VENOUS BLOOD / Unknown 09/24/2019 14:40 EDT 09/25/2019 15:54 EDT Provider Outr Resulting Lab CHEMISTRY & BLOOD GAS ORDERABLES [facility] [address] [place] [address] from Last 3 Months or Most Recently Relevant to Health Maintenance [place] [employer] Personal/Family Self 1955 [facility] [place] [address] [employer] Personal/Family Self 1955 [facility] [place] [address] [employer] Personal/Family Self 1955 [facility] [place] [address] [employer] Personal/Family Self 1955 [facility] [place] [address] [employer] Personal[place]Family Self 1955 [facility] [place] [address] [employer] Personal/Family Self 1955 [address] [place] [address] [employer] Personal/Family Self 1955 [address] [place] [address] Care Teams Cut Tobacco Bulker Relationship Specialty Start Date End Date Unknown, Provider, PCP - General 10/22/20
--- OUTSIDE RECORDS SUMMARY | 2024-01-22 13:27 | XMS_ITS | Encounter Summary ---
[place] [address] Care Team Providers Care Industrial Methods Consultant Name Role Phone OscarChristiana RYAN Primary Care Provider [phone] Reason for Visit * Reason Onset Date Comments Other 10/08/2019 results Encounter Details Date Type Department Care Team (Late st Contact Info) Description 10/08/2019 Telephone [place] [phone] Monica Price RN Other (results) Social History [...] PM EDT Office [place] [address] Manjula Kitchen MD [facility] [place] [address] documented as of this encounter Visit Diagnoses Not on filedocumented in this encounter Care Teams Industrial Methods Consultant Relationship Specialty Start Date End Date Christiana Moore APRN [address] [place] [address] PCP - General Family Medicine 09/26/19 documented as of this encounter
--- OUTSIDE RECORDS SUMMARY | 2024-01-22 13:27 | XMS_ITS | Encounter Summary ---
Author Organization [facility] [place] [address] Care Team Providers Care National Facilities Manager Name Role Phone Christiana Moore RYAN Primary Care Provider [phone] Reason for Visit * Auth/Cert Specialty Diagnoses [...] Expiration Date Visits Re quested Visits Authorized [id number] 1 1 Encounter Details Date Type Department Care Team (Late st Contact Info) Description 10/24/2019 12:28 PM EDT - 10/24/2019 5:26 PM EDT Surgery [place] [address] [facility] [place] [address] @THYMECTOMY W/ RAD. MEDIASTINAL DISSECTION (WRVU 23.48) [...] Primary * Fatou Dong PA - Physician Coldfusion * Benedicto Cameron PA - Physician Coldfusion * Tree Blum MD - Resident Procedure: [...] Hospital Course: Tree Lantigua was [facility] 10/24/2019 [facility]. [...] a nurse in the Thoracic Clinic at [phone]. After hours or on weekends or holidays please call: [phone] and ask to speak to the Thoracic [...] the Thoracic Clinic or the Thoracic Surgeon flight operations inspector after hours. Please take over the counter [...] Expires XR Chest PA & Lateral (Generic) [[id number] Custom] 11/09/2019 04/27/2020 Process Instructions: Scheduling Instructions: Questions: Where will study be performed?: [facility] Radiology Portable exam?: Reason for exam and clinical history: s/p R thoractomy w/ anteror mediastinal mass resection Clinical information / limon questions: please eval for PTX or effusions Stat read required?: Date of injury if applicable: Requested Time: Provider Contact Information: Primary Care Provider: Christiana Moore APRN [phone] Discharge References/Attachments: Discharge References/Attachments None For questions regarding this document or issues relating to this hospitalization on the Thoracic Surgery Service, please contact Dr. Alvarez's office at . Signed: SOCRATES [place] 10/26/2019 Thoracic Surgery [facility] CC: PCP: Christiana Moore APRN Referring: Sadie Cavazos Md [address] [place] [address] documented in this encounter Discharge Instructions * [...] a nurse in the Thoracic Clinic at [phone]. After hours or on weekends or holidays please call: [phone] and ask to speak to the Thoracic [...] the Thoracic Clinic or the Thoracic Surgeon flight operations inspector after hours. Please take over the counter [...] Alex MD - 10/25/2019 5:07 PM EDT [facility] Department of Thoracic Surgery Inpatient Progress [...] Encounter Date Admission (Current) from 10/24/[address] [place] [address] Office [place] 09/30/2019 [place] [facility] [place] 78.9 kg (174 lb) 1 10/24/2019 [...] Alex MD 10/25/2019 Thoracic Surgery Service Pager [phone] * Deloris Szymanski MD - 10/24/2019 11:28 [...] Result Value Ref Range Surgical Pathology Report [id number] Location: OR; OR11; A The signing pathologist [...] Jarrod Vora Verified: 10/24/2019 Pathologist Performed at: -[facility] [place], [place], [place] This intraoperative consultation should be interpreted [...] Admission order reviewed. Primary Insurance on file: [facility] MANAGED MEDICARE Secondary Insurance on file: None Primary care provider on file: Christiana Moore, HVAC TECHNICIAN RESIDENTIAL [phone] Advance Directive on file and Code Status: Full Code Patient???s Functional Status: Independent in IADLs Living Situation: Has Lillian Tyson [address] [facility] [address] Supports: Family Assessment: Patient with no apparent RNCM/SW needs at this time. No housing, transportation, insurance, resources concerns identified at this time. Supports in place to achieve a safe post-hospital transition. No identified barriers to accessing necessary care and/or follow-up after discharge. Plan: Patient to d/c to home via private vehicle when medically ready. civil division deputy sheriff/Devops will continue to follow patient???s progress and remain available if situation changes for coordination of care, psychosocial support and/or discharge planning. Dave Joseph RN Pager [phone] * Plan of Care - Master Campbell [...] Operative Note Patient Name: Tree Lantigua : [id number] MR#: [id number] Case Date: 10/24/2019 Surgeon: Surgeon(s) and Role: * Jose Alvarez MD - Primary * Fatou Dong PA - Physician Coldfusion * Benedicto Cameron PA - Physician Coldfusion * Tree Blum MD - Resident Preoperative [...] [place] [address] Anterior mediastinal mass Right lower lobe wedge excision YES, Please perform frozen section No 10/24/2019 3:59 PM Number of tissue samples (in container) 1 Time specimen removed from patient: 3:59 PM SPECIMEN TO PATHOLOGY Right middle lobe wedge [place] 11 [id number] Anterior mediastinal mass Right middle lobe wedge excision YES, Please perform frozen section No 10/24/2019 4:04 PM Number of tissue samples (in container) 1 Time specimen removed from patient: 4:04 PM SPECIMEN TO PATHOLOGY Right upper [place] 11 [id number] Anterior mediastinal mass Right upper lobe wedge excision YES, Please perform frozen section No 10/24/2019 4:22 PM Number of tissue samples (in container) 1 Time specimen removed from patient: 4:22 PM SPECIMEN TO PATHOLOGY Right upper lobe wedge #2 OR 11 [id number] Anterior mediastinal mass Right upper lobe wedge [...] [facility]. Operative findings: Approximately 200 [...] reapproximated with #2 Vicryl sutures in a [id number] fashion.The chest wall was closed in layers [...] PM EDT Office [place] [address] [facility] [place] [address] documented as of this encounter Procedures Procedure [...] MISC SOURCE Routine 10/24/2019 3:00 PM EDT NON-RECEPTIONIST/TELEPHONE OPERATOR FINAL REPORT Routine 10/24/2019 2:58 PM EDT CYTOPATHOLOGY NON-GYNECOLOGICAL STAT 10/24/2019 2:58 PM EDT Thoracoscopy With Biopsy of Pleura 10/24/2019 1:51 PM EDT Mediastinal mass Thoracotomy With Therapeutic Wedge Resection Ea Addl 10/24/2019 1:51 PM EDT Mediastinal mass Injection Anes Agent &/ Steroid Intercostal Nerve Ea Addl Level (72813) 10/24/2019 1:51 PM EDT Mediastinal mass Thoracotomy With Therapeutic Wedge Resection Initial 10/24/2019 1:51 PM EDT Mediastinal mass Bronchoscopy, Diagnostic (70593) 10/24/2019 1:51 PM EDT Mediastinal mass Thymectomy, Radical Mediast Disssec (18143) 10/24/2019 1:51 PM EDT Mediastinal mass BRONCHOSCOPY,DIAGNOSTI [...] * POCT Glucose (10/25/2019 11:56 AM EDT) [facility] Signature Glucose, POC 127 65 - 199 mg/dL [facility] Comment: Supplemental ranges: <140 mg/dL before meals <180 mg/dL all other times of the day Blood specimen (specimen) 10/25/2019 11:56 AM EDT 10/25/2019 11:56 AM EDT Jose Alvarez MD POINT OF CARE TEST O RDERABLES [facility] [place] [address] * (ABNORMAL) Differential, Automated (10/25/2019 3:30 AM EDT) Neutrophil % 81.8 % [facility] Neutrophil Absolute 10.92(H) 1.70 - 6.10 x10(3)/mc L [facility] Lymph % 8.6 % [facility] Lymphocytes Abs 1.1 0.9 - 3.2 x10(3)/ L [facility] Monocyte % 8.6 % [facility] Monocyte Abs 1.1(H) 0.3 - 0.9 x10(3)/mc L [facility] Eos % 0.1 % [facility] Eosinophils Abs 0.0 0.0 - 0.4 x10(3)/[facility] Basophil % 0.2 % [facility] Baso Absolute 0.0 0.0 - 0.1 x10(3)/ L [facility] Immature Gran % 0.70 % [facility] Comment: Immature granulocytes(IG's)percentage and absolute count will include metamyelocytes, myelocytes, and promyelocytes. Blood smears from CBCs yielding IG's will be scanned manually for concordance. If this scan disagrees with the automated IG or if promyelocytes are noted, a manual differential will be performed. Immature Gran Absolute 0.09(H) 0.00 - 0.04 x10(3)/mc L [facility] Blood specimen (specimen) 10/25/2019 3:30 AM EDT 10/25/2019 3:41 AM EDT Narrative Resulting Agency Comment Spec In Lab Tree Blum MD HEMATOLOGY ORDERABLE S [facility] [place] [address] * (ABNORMAL) Hemogram (10/25/2019 3:30 AM EDT) White Blood Cell 13.3(H) 4.0 - 9.5 x10(3)/mc L [facility] Red Blood Cell 6.33(H) 4.58 - 5.54 x10(6)/mc L [facility] Hemoglobin 12.9(L) 13.7 - 16.5 gm/dL [facility] Hematocrit 42.1 40.5 - 48.5 % [facility] Mean Cell Volume 66.5(L) 82.9 - 93.1 fL [facility] Mean Cell Hemoglobin 20.4(L) 27.5 - 32.1 pg [facility] Mean Cell Hemoglobin Concentration 30.6(L) 32.0 - 35.7 gm/dL [facility] Platelet 325 145 - 357 x10(3)/mc L [facility] RDW Standard Deviation 34.5(L) 36.0 - 45.0 [facility] RDW coefficient of variation 16.0(H) 11.4 - 13.8 % [facility] Mean Platelet Volume 10.0 7.6 - 12.9 [facility] NRBC% auto 0.0 % [facility] NRBC Absolute 0.000 0.000 - 0.000 x10(3)/mc L [facility] Blood specimen (specimen) 10/25/2019 3:30 AM EDT 10/25/2019 3:41 AM EDT Narrative Resulting Agency Comment Spec In Lab Tree Blum MD HEMATOLOGY ORDERABLE S [facility] [place] [address] * (ABNORMAL) Basic Metabolic Panel (non-fasting) (10/25/2019 3:30 AM EDT) Glucose 132 65 - 199 mg/dL [facility] Comment:Diabetes: >=200 mg/d L plus symptoms Blood Urea Nitrogen 12 10 - 20 mg/dL [facility] Creatinine 0.71(L) 0.80 - 1.50 mg/dL [facility] Sodium 136 135 - 145 mmol/L [facility] Potassium 4.5 3.5 - 5.0 mmol/L [facility] Comment: Please note: ??Patients with WBC >100,000 may have falsely elevated Potassium levels. ??For accurate Potassium quantification in these patients send serum separator tube (gold top) for subsequent determinations. ??Contact the Clinical Chemistry Laboratory if there are any questions. Chloride 101 98 - 107 mmol/L [facility] Carbon Dioxide 24 22 - 31 mmol/L [facility] Anion Gap 11 5 - 15 mmol/L [facility] Calcium 8.9 8.5 - 10.5 mg/dL [facility] Est Glomerular Filtration Rate 98 >=60 mL/min/1. 73 m?? [facility] Comment: The eGFR was calculated using the CKD-EPI equation. As with all creatinine based estimates of kidney function, eGFR values calculated with the CKD-EPI equation are not accurate in patients with acute kidney failure, extremes of body mass or the acutely ill. http://[employer]/[facility] eGFR 114 >=60 mL/min/1. 73 m?? [facility] Comment: The eGFR was calculated using the CKD-EPI equation. As with all creatinine based estimates of kidney function, eGFR values calculated with the CKD-EPI equation are not accurate in patients with acute kidney failure, extremes of body mass or the acutely ill. [email or web address]/[facility] Blood specimen (specimen) 10/25/2019 3:30 AM EDT 10/25/2019 3:41 AM EDT Narrative Resulting Agency Comment Spec In Lab Jose Alvarez MD CHEMISTRY ORDERABLES [facility] [place] [address] * (ABNORMAL) Basic Metabolic Panel (non-fasting) (10/24/2019 6:30 PM EDT) Glucose 154 65 - 199 mg/dL [facility] Comment:Diabetes: >=200 mg/d L plus symptoms Blood Urea Nitrogen 12 10 - 20 mg/dL [facility] Creatinine 0.76(L) 0.80 - 1.50 mg/dL [facility] Sodium 136 135 - 145 mmol/L [facility] Potassium 3.7 3.5 - 5.0 mmol/L [facility] Comment: Please note: ??Patients with WBC >100,000 may have falsely elevated Potassium levels. ??For accurate Potassium quantification in these patients send serum separator tube (gold top) for subsequent determinations. ??Contact the Clinical Chemistry Laboratory if there are any questions. Chloride 102 98 - 107 mmol/L [facility] Carbon Dioxide 22 22 - 31 mmol/L [facility] Anion Gap 12 5 - 15 mmol/L [facility] Calcium 8.4(L) 8.5 - 10.5 mg/dL [facility] Est Glomerular Filtration Rate 96 >=60 mL/min/1. 73 m?? [facility] Comment: The eGFR was calculated using the CKD-EPI equation. As with all creatinine based estimates of kidney function, eGFR values calculated with the CKD-EPI equation are not accurate in patients with acute kidney failure, extremes of body mass or the acutely ill. [email or web address]/DHnkf eGFR 111 >=60 mL/min/1. 73 m?? [facility] Comment: The eGFR was calculated using the CKD-EPI equation. As with all creatinine based estimates of kidney function, eGFR values calculated with the CKD-EPI equation are not accurate in patients with acute kidney failure, extremes of body mass or the acutely ill. [email or web address]/DHMCnkf Blood specimen (specimen) 10/24/2019 6:30 PM EDT 10/24/2019 6:45 PM EDT Narrative Resulting Agency Comment Spec In Lab Jose Alvarez MD CHEMISTRY ORDERABLES Performing Organization Address [facility] Co de Phone Number [facility] [place] [address] * Specimen to Pathology (10/24/2019 4:37 PM EDT) AP Specimen 10/24/2019 4:37 PM EDT 10/24/2019 4:37 PM EDT Narrative [facility] - 10/24/2019 4:37 PM EDT Specimen requisition ordered. ??Separate Pathology report to follow Jose Alvarez MD PATHOLOGY/CYTOLOGY O BENJI Performing Organization Address [facility] [place] [address] * Specimen to Pathology (10/24/2019 4:22 PM EDT) AP Specimen 10/24/2019 4:22 PM EDT 10/24/2019 4:22 PM EDT Narrative [facility] - 10/24/2019 4:22 PM EDT Specimen requisition ordered. ??Separate Pathology report to follow Jose Alvarez MD PATHOLOGY/CYTOLOGY O BENJI Performing Organization Address [facility] Co de Phone Number [facility] [place] [address] * Specimen to Pathology (10/24/2019 4:04 PM EDT) AP Specimen 10/24/2019 4:04 PM EDT 10/24/2019 4:04 PM EDT Narrative [facility] - 10/24/2019 4:04 PM EDT Specimen requisition ordered. ??Separate Pathology report to follow Jose Alvarez MD PATHOLOGY/CYTOLOGY O RDERABLES Performing Organization Address [facility] Co de Phone Number [facility] [place] [address] * Specimen to Pathology (10/24/2019 3:59 PM EDT) AP Specimen 10/24/2019 3:59 PM EDT 10/24/2019 3:59 PM EDT Narrative [facility] - 10/24/2019 3:59 PM EDT Specimen requisition ordered. ??Separate Pathology report to follow Jose Alvarez MD PATHOLOGY/CYTOLOGY O BENJI Performing Organization Address [facility] [place] [address] * Specimen to Pathology (10/24/2019 3:43 PM EDT) AP Specimen 10/24/2019 3:43 PM EDT 10/24/2019 3:43 PM EDT Narrative [facility] - 10/24/2019 3:43 PM EDT Specimen requisition ordered. ??Separate Pathology report to follow Jose Alvarez MD PATHOLOGY/CYTOLOGY O BENJI Performing Organization Address [facility] de Phone Number [facility] [place] [address] * Surgical Pathology Report (10/24/2019 3:42 PM EDT) Pathologist [facility] Final Diagnosis [id number] ? Location: [facility]; 0302; A The signing pathologist has (i) [...] Lea MD Verified: ??11/11/2019 ?Pathologist Performed at: ??-[facility] [place], [place], [place] ?Surgical Pathology DIAGNOSIS A - Anterior [...] Lea MD Verified: ??11/04/2019 ?Pathologist Performed at: ??-[facility] [place]. [place], [place], [place] SYNOPTIC Specimen ? Procedure: ??Thymectomy Tumor [...] following tissue is submitted for frozen section: Biological Chemist section of the mass. Inked, serially sectioned and direct marketing representative sections submitted in 9 cassettes as follows: . SPECIMEN PROCESSING ?A1: ??FS-1 ?A2-A9: ??Biological Chemist sections of lesion B - Labeled/Fixative: Right [...] following tissue is submitted for frozen section: Biological Chemist section of nodule. Biological Chemist sections in 4 cassettes as follows: ?B1: ??FS 1 ?B2: ??Stable line margins ?B3-B4: ??Biological Chemist sections C - Labeled/Fixative: Right middle lobe [...] Jarrod Vora Verified: ??10/24/2019 ?Pathologist Performed at: ??-[facility] [place]. [place], [place], [place] This intraoperative consultation should be interpreted as a preliminary diagnosis pending review of the entire specimen and special studies, if any. 11/11/2019 9:43 AM EDT [facility] Frozen Specimen 10/24/2019 3 :42 [...] EDT Jose Alvarez MD PATHOLOGY/CYTOLOGY O RDERABLES [facility] [place] [address] * (ABNORMAL) BLOOD GAS 2 ARTERIAL (10/24/2019 3:38 PM EDT) pH, Arterial 7.35 7.35 - 7.45 [facility] PCO2, Arterial 45 35 - 45 mmHg [facility] PO2, Arterial 81(L) 85 - 104 mmHg [facility] Bicarbonate, Arterial 24.4 20.0 - 26.0 mmol/L [facility] Base Excess, Arterial -1.2 -3.0 - 3.0 mmol/L [facility] Hgb Blood Gas 13.0(L) 13.7 - 16.5 gm/dL [facility] Oxyhemoglobin, Arterial 93.9(L) 94.0 - 97.0 % [facility] Carboxyhemoglob in, Arterial 1.3 % [facility] Comment: Nonsmokers: 0.5-1.5% COHB Smokers: Variable, but usually less than 10% Toxic: 20-30% COHB Lethal: Greater than 60% COHB Methemoglobin, Arterial 0.3 <=1.5 % [facility] Na Whole Blood 135 135 - 145 mmol/L [facility] K Whole Blood 3.9 3.5 - 5.0 mmol/L [facility] Comment: Please note: Patients with WBC >100,000 may have falsely elevated Potassium levels. Contact the Clinical Chemistry Laboratory if there are any questions. ICa Whole Blood 1.19 1.15 - 1.33 mmol/L [facility] Comment: Note: ??Total bilirubin higher than 20 mg/dL may lead to falsely low ionized calcium. CL Whole Blood 103 98 - 107 mmol/L [facility] Gluc Whole Bld 144 65 - 199 mg/dL [facility] Comment:Diabetes: >=200 mg/d L plus symptoms. Lactate WB 1.0 0.5 - 2.2 mmol/L [facility] FIO2 Art 84 % [facility] PF Ratio Art 96 [facility] Temp Art 37.1 Celsius [facility] Blood specimen (specimen) Arterial Draw / Unknown 10/24/2019 3:38 PM EDT 10/24/2019 4:50 PM EDT Narrative Resulting Agency Comment Spec In Lab Mata Carrillo MD POINT OF CARE TEST O RDERABLES Performing Organization Address City/[facility]/ZIP Co de Phone Number [facility] [place] [address] * Anaerobic Culture (10/24/2019 3:00 PM EDT) Anaerobic Culture No anaerobic organisms isolated [facility] Pleural fluid specimen (specimen) 10/24/2019 3:00 PM EDT 10/24/2019 3:43 PM EDT Comment:RIGHT PLEURAL FLUID Narrative Resulting Agency Comment Spec In Lab Jose Alvarez MD MICROBIOLOGY - GENER AL ORDERABLES Performing Organization Address [facility] Co de Phone Number [facility] [place] [address] * Body Fluid Culture, Aerobic (10/24/2019 3:00 PM EDT) Body Fluid Culture No growth [facility] Gram Stain Cytocentrifuge Gram Stain performed Neutrophils seen No microorganisms seen. Results called to and read back by DR. ALVAREZ. [facility] Pleural fluid specimen (specimen) 10/24/2019 3:00 PM EDT 10/24/2019 3:43 PM EDT Comment:RIGHT PLEURAL FLUID Narrative Resulting Agency Comment Spec In Lab Jose Alvarez MD MICROBIOLOGY - GENER AL ORDERABLES Performing Organization Address [facility] Co de Phone Number [facility] [place] [address] * Anaerobic Culture (10/24/2019 3:00 PM EDT) Anaerobic Culture No anaerobic organisms isolated [facility] Specimen from lung (specimen) 10/24/2019 3:00 PM EDT 10/24/2019 3:41 PM EDT Comment:PLEURAL GRUMOUS Narrative Resulting Agency Comment Spec In Lab Jose Alvarez MD MICROBIOLOGY - GENER AL ORDERABLES Performing Organization Address [facility] Co de Phone Number [facility] [place] [address] * Tissue culture (10/24/2019 3:00 PM EDT) Tissue Culture No growth [facility] Gram Stain Moderate Neutrophils seen No microorganisms seen. Results called to and read back by DR. ALVAREZ. [facility] Specimen from lung (specimen) 10/24/2019 3:00 PM EDT 10/24/2019 3:41 PM EDT Comment:PLEURAL GRUMOUS Narrative Resulting Agency Comment Spec In Lab Jose Alvarez MD MICROBIOLOGY - GENER AL ORDERABLES Performing Organization Address [facility] Co de Phone Number [facility] [place] [address] * Fungus culture Other (10/24/2019 3:00 PM EDT) Fungus Culture No Fungus isolated [facility] Specimen of unknown material (specimen) 10/24/2019 3:00 PM EDT 10/24/2019 3:44 PM EDT Comment:PLEURAL GRUMOUS Narrative Resulting Agency Comment Spec In Lab Jose Alvarez MD MICROBIOLOGY - GENER AL ORDERABLES Performing Organization Address City/[facility] Co de Phone Number [facility] [place] [address] * AFB culture Lung (10/24/2019 3:00 PM EDT) Acid Fast Bacilli Culture No Acid Fast Bacilli isolated If active tuberculosis is suspected, the patient should be on [employer] PRECAUTIONS. Call Infection Prevention for assistance if needed. [facility] Acid Fast Stain No Acid Fast Bacilli seen [facility] Specimen from lung (specimen) 10/24/2019 3:00 PM EDT 10/24/2019 3:44 PM EDT Comment:PLEURAL GRUMOUS Narrative Resulting Agency Comment Spec In Lab Jose Alvarez MD MICROBIOLOGY - GENER AL ORDERABLES [facility] [place] [address] * Non-Screw Machine Operator Single Spindle Final Report (10/24/2019 2:58 PM EDT) Diagnosis Discussion [id number] ? Location: 3WST; 0302; A The signing pathologist has (i) examined the relevant preparation(s) for the specimen(s) and (ii) rendered or confirmed the diagnosis(es). . ? Non-Screw Machine Operator Single Spindle Final DIAGNOSIS Negative for Malignancy Electronically signed by: ??Harsh JORDAN PhD, Juancarlos Schmitz Verified: ??10/27/2019 ?Pathologist Performed at: ??-[facility] [place], [place], [place] DISCUSSION Pleural, right (thoracentesis): The specimen [...] Cell Block 1. 10/27/2019 3:11 PM EDT [facility] RIGHT PLEURAL FLUID / Unknown 10/24/2019 2:58 PM EDT 10/24/2019 2:58 PM EDT Jose Alvarez MD PATHOLOGY/CYTOLOGY O BENJI Performing Organization Address [facility] [facility] de Phone Number [facility] [place] [phone] * Cytopathology Non-Gynecological (10/24/2019 2:58 PM EDT) AP Specimen 10/24/2019 2:58 PM EDT 10/24/2019 2:58 PM EDT Narrative [facility] - 10/24/2019 2:58 PM EDT Specimen requisition ordered. ??Separate Pathology report to follow Jose Alvarez MD PATHOLOGY/CYTOLOGY O BENJI Performing Organization Address [facility] de Phone Number [facility] [place] [address] documented in this encounter Visit Diagnoses Diagnosis [...] Marion RN)1109 (Given - Provider: Master Campbell, RN)1717 (Given - Provider: Master Campbell RN) 0127 (Given - Provider: Norma Gr RN) lactated ringers infusion (CANCELED) 100 mL/hr, Intravenous, ONCE, 1 dose, On Sun10/24/19 at 1915, Recovery (Recovery-Hospital Unit) 1910 (Restarted - Provider: Sera L Vincent, RN)1913 [...] 2130 (Not Given - Provider: Paula Marion, EVER - Reason: See comment) 1112 (Given - Provider: Master Campbell, EVER)2159 (Given - Provider: Lillian Sinha RN) 0900 (Given - Provider: Ana Luisa Ramirez RN) Continuous Medication Order 10/24/2019 10/25/2019 10/26/2019 lactated ringers infusion (CANCELED) 1,000 mL, at 100 mL/hr, Intravenous, CONTINUOUS, Starting on Sun10/24/19 at 1845, Until Sun10/24/19 at 1958, PACU Recovery 1921 (New Bag - Provider: Sera iSlva, EVER) PRN Medication Order 10/24/2019 10/25/2019 10/26/2019 [...] EVER) 0442 (Given - Provider: Paula Marion, EVER) sodium chloride 0.9 % (flush) flush 5-20 [...] documented as of this encounter Care Teams National Facilities Manager Relationship Specialty Start Date End Date Christiana Moore APRN [address] [place] [address] PCP - General Family Medicine 09/26/19 documented as of this encounter
--- OUTSIDE RECORDS SUMMARY | 2024-01-22 13:27 | XMS_ITS | Encounter Summary ---
Author Organization Formerly [facility] [place] [address] Care Team Providers Care Program Aide Name Role Phone Christiana Moore APRN Primary Care Provider [phone] Reason for Referral * Diagnostic Test (Routine) - Closed Specialty Diagnoses / Procedures Referred By Contac t Referred To Contact Radiology Diagnoses Mediastinal mass Procedures NM PET CT Skull Base to Mid-thigh Quentin Carlin MD [facility] [place] [address] [place] [address] Referral ID Status Reason Start Date Expiration Date V isits Requested Visits Authorized [id number] Closed Specialty Service Requested 10/06/2019 11/20/2019 1 1 Reason for Visit * Diagnostic Test (Routine) - Closed Specialty Diagnoses / Procedures Referred By Contac t Referred To Contact Radiology Diagnoses Mediastinal mass Procedures NM PET CT Skull Base to Mid-thigh Quentin Carlin MD [facility] [place] [address] [place] [address] Referral ID Status Reason Start Date Expiration Date V isits Requested Visits Authorized [id number] Closed Specialty Service Requested 10/06/2019 11/20/2019 1 1 Encounter Details Date Type Department Care Team (Latest Contact Info) Description 10/08/2019 8:50 AM EDT Hospital Encounter Nuclear Medicine [place] [facility] [place] [address] Quentin Carlin MD [facility] [place] [address] Mediastinal mass Discharge Disposition: Home Social History [...] PM EDT Office [place] [phone] Manjula Kitchen MD [facility] GENERAL SURGERY [place], [place] [id number] documented as of this encounter Procedures Procedure [...] below. ? Electronically signed by: Chris Sutton [facility] ([phone]), at 10/08/2019 11:40 AM Narrative 10/08/2019 11:40 AM EDT EXAMINATION: NM PET CT SKULL BASE TO MID-THIGH ? CLINICAL HISTORY: Metastatic disease evaluation hx of mediastinal mass, possible thymoma stage IV, please eval for changes, evidence of disease, metastatic disease TECHNIQUE: Following IV injection of 94-gkzutw-7-deoxyglucose (FDG) a standard uptake of approximately 60 [...] Agency Comment Unexpected Finding Quentin Carlin MD IM PET ORDERABLES * POCT Glucose (10/08/2019 8:56 AM EDT) Glucose, POC 111 65 - 199 mg/dL [facility] Comment: Supplemental ranges: <140 mg/dL before meals <180 mg/dL all other times of the day Blood specimen (specimen) 10/08/2019 8:56 AM EDT 10/08/2019 8:56 AM EDT Quentin Carlin MD POINT OF CARE TEST O BENJI [facility] [place] [address] documented in this encounter Visit Diagnoses Diagnosis Mediastinal mass Swelling, mass, or lump in chest documented in this encounter Care Teams Program Aide Relationship Specialty Start Date End Date Christiana Moore APRN [address] [place] [address] PCP - General Family Medicine 09/26/19 documented as of this encounter
--- OUTSIDE RECORDS SUMMARY | 2024-01-22 13:27 | XMS_ITS | Referral Summary ---
Author Organization [facility] Address [address] [place] [address] Care Team Providers Care Forklift Truck Operator Name Role Phone Unknown, Provider Primary Care Provider [phone] Allergies Active Allergy Reactions Criticality Noted Date [...] Negative Negative 09/26/2019 11:28 EDT [facility] Blood VENOUS BLOOD / Unknown 09/24/2019 14:40 EDT 09/25/2019 15:54 EDT Provider Outr Resulting Lab CHEMISTRY & BLOOD GAS ORDERABLES [facility] [address] [place] [address] from Last 3 Months or Most Recently Relevant to Health Maintenance Care Teams Forklift Truck Operator Relationship Specialty Start Date End Date Unknown, Provider, PCP - General 10/22/20
--- OUTSIDE RECORDS SUMMARY | 2024-01-22 13:27 | XMS_ITS | Encounter Summary ---
Author Organization [facility] Address [address] [place] [address] Care Team Providers Care C Winforms Developer Name Role Phone Unknown, Provider Primary Care Provider Encounter Details Date Type Department Care Team (Late st Contact Info) Description 01/25/2021 Lab Requisition [facility] Pathology & Laboratory Medicine - [facility] [address] [place] [address] Jun Gong MD [address] [place] [address] [address] [place], [place] [id number] Encounter for screening for malignant neoplasm of [...] explore management options, if applicable. 01/28/2021 11:53 [facility] Final Diagnosis A. COLON, CECUM, BIOPSY: - Fragments of tubular adenoma(s) B. COLON, ASCENDING, BIOPSY: - Fragments of tubular adenoma(s) C. COLON, TRANSVERSE, BIOPSY: - Fragments of tubular adenoma(s) D. COLON, SIGMOID, BIOPSY: - Villous adenoma 01/28/2021 11:53 [facility] Attestation By the signature below, the attending physician certifies that they have 1) personally conducted a gross and/or microscopic examination of the described specimen(s), and/or personally interpreted the results of laboratory testing of the described specimen(s), and 2) personally rendered or confirmed the above diagnosis. 01/28/2021 11:53 [facility] at 1153 Clinical History Colon cancer screening 01/28/2021 11:53 [facility] Gross Description A. Received [...] SOCRATES BENOIT(ASCP) 01/25/2021 9:50 01/28/2021 11:[address] [facility] Performing Lab [facility] 01/28/2021 11:[address] [facility] Scanned Images 01/28/2021 11:[address] [facility] Tissue ENTIRE SIGMOID COLON [...] Gong MD PATHOLOGY ORDERA [facility] [address] [place] [phone] documented in this encounter Visit Diagnoses Diagnosis Encounter for screening for malignant neoplasm of colon Special screening for malignant neoplasms, colon documented in this encounter Care Teams C Winforms Developer Relationship Specialty Start Date End Date Unknown, Provider, PCP - General 10/22/20 documented as of this encounter
--- OUTSIDE RECORDS SUMMARY | 2024-01-22 13:27 | XMS_ITS | Encounter Summary ---
Author Organization [facility] Address [address] [place] [address] Care Team Providers Care Drug Counselor Name Role Phone Unknown, Provider Primary Care Provider [phone] Encounter Details Date Type Department Care Team (Late st Contact Info) Description 01/17/2023 Lab Requisition [facility] Pathology & Laboratory Medicine - [facility] [address] [place] [address] Outr Resulting Lab, Provider Social History Tobacco [...] PSA 2.8 <=4.5 ng/mL 01/17/2023 22:53 EDT [facility] Blood VENOUS BLOOD / Unknown 01/17/2023 11:00 EDT 01/17/2023 21:56 EDT Narrative [facility] - 01/17/2023 22:53 EDT NOTE: Serum PSA concentration should not be interpreted as absolute evidence for the presence or absence of malignant disease. Assayed on Siemens Tysdoaur XPT using chemiluminescent technology.??Values obtained by using different assay methods cannot be used interchangeably. Provider Outr Resulting Lab CHEMISTRY & BLOOD GAS ORDERABLES [facility] [address] [place] [address] documented in this encounter Visit Diagnoses Not on filedocumented in this encounter Care Teams Drug Counselor Relationship Specialty Start Date End Date Unknown, Provider, PCP - General 10/22/20 documented as of this encounter
--- OUTSIDE RECORDS SUMMARY | 2024-01-22 13:27 | XMS_ITS | Encounter Summary ---
Author Organization [facility] Address [facility] [place] [address] Care Team Providers Care Cushion Cover Inspector Name Role Phone Christiana Moore RYAN Primary Care Provider [phone] Reason for Visit * Auth/Cert Specialty Diagnoses [...] Expiration Date Visits Re quested Visits Authorized [id number] 1 1 Encounter Details Date Type Department Care Team (Latest Contact Info) Description 10/24/2019 11:11 AM EDT - 10/26/2019 2:05 PM EDT Hospital Encounter [address] [place] [address] Jose Alvarez MD [facility] [place] [address] Mediastinal mass Discharge Disposition: Home Social History [...] Primary * Fatou Dong PA - Physician Technical Agronomist * Benedicto Cameron PA - Physician Technical Agronomist * Tree Blum MD - Resident Procedure: [...] Course: Tree Lantigua was [facility]. [...] a nurse in the Thoracic Clinic at [phone]. After hours or on weekends or holidays please call: [phone] and ask to speak to the Thoracic [...] the Thoracic Clinic or the Thoracic Surgeon assistant front office manager after hours. Please take over the [...] Expires XR Chest PA & Lateral (Generic) [[id number] 04640 Custom] 11/09/2019 04/27/2020 Process Instructions: Scheduling Instructions: Questions: Where will study be performed?: [facility] Radiology Portable exam?: Reason for exam and clinical history: s/p R thoractomy w/ anteror mediastinal mass resection Clinical information / limon questions: please eval for PTX or effusions Stat read required?: Date of injury if applicable: Requested Time: Provider Contact Information: Primary Care Provider: Christiana Moore APRN [phone] Discharge References/Attachments: Discharge References/Attachments None For questions regarding this document or issues relating to this hospitalization on the Thoracic Surgery Service, please contact Dr. Alvarez's office at . Signed: SOCR[place] 10/26/2019 Thoracic Surgery [facility] CC: PCP: Christiana Moore APRN Referring: Sadie Cavazos Md [address] [place] [address] documented in this encounter Discharge Instructions * [...] a nurse in the Thoracic Clinic at [phone]. After hours or on weekends or holidays please call: [phone] and ask to speak to the Thoracic [...] the Thoracic Clinic or the Thoracic Surgeon assistant front office manager after hours. Please take over the [...] Alex MD - 10/25/2019 5:07 PM EDT [facility] Department of Thoracic Surgery Inpatient Progress Note Patient Name: Tree Lantigua Patient : [id number] Patient Patient Location: [address] [place] [address]- Attending Surgeon: JOSE ALVAREZ ID: Tree Lantigua [...] Date Admission (Current) from 10/24/2019 in 3 [facility] Office Visit from 09/30/2019 in Thoracic Surgery at [facility] Weight 78.9 kg (174 lb) 1 10/24/2019 [...] Alex MD 10/25/2019 Thoracic Surgery Service Pager [phone] * Deloris Szymanski MD - 10/24/2019 11:28 [...] Result Value Ref Range Surgical Pathology Report [id number] Location: OR; OR11; A The signing pathologist [...] Jarrod Vora Verified: 10/24/2019 Pathologist Performed at: -[facility] Dept. of Path ology, [place], [place] This intraoperative consultation should be interpreted [...] Admission order reviewed. Primary Insurance on file: [facility] [employer] MEDICARE Secondary Insurance on file: None Primary care provider on file: Christiana Moore, ANIMAL HUSBANDRY PROFESSOR [phone] Advance Directive on file and Code Status: Full Code Patient???s Functional Status: Independent in IADLs Living Situation: Has Lillian Tyson [address] [facility] [address] Supports: Family Assessment: Patient with no apparent RNCM/SW needs at this time. No housing, transportation, insurance, resources concerns identified at this time. Supports in place to achieve a safe post-hospital transition. No identified barriers to accessing necessary care and/or follow-up after discharge. Plan: Patient to d/c to home via private vehicle when medically ready. foreman/project manager/Evening Sitter will continue to follow patient???s progress and remain available if situation changes for coordination of care, psychosocial support and/or discharge planning. Dave Joseph RN Pager [phone] Extension [phone] * Plan of Care - Master Campbell [...] Operative Note Patient Name: Tree Lantigua : [id number] MR#: [id number] Case Date: 10/24/2019 Surgeon: Surgeon(s) and Role: * Jose Alvarez MD - Primary * Fatou Dong PA - Physician Technical Agronomist * Benedicto Cameron PA - Physician Technical Agronomist * Tree Blum MD - Resident Preoperative [...] PATHOLOGY Right lower lobe wedge [place] 11 [address]191 Anterior mediastinal mass Right lower lobe wedge excision YES, Please perform frozen section No 10/24/2019 3:59 PM Number of tissue samples (in container) 1 Time specimen removed from patient: 3:59 PM SPECIMEN TO PATHOLOGY Right middle lobe wedge [place] 11 [id number] Anterior mediastinal mass Right middle lobe wedge excision YES, Please perform frozen section No 10/24/2019 4:04 PM Number of tissue samples (in container) 1 Time specimen removed from patient: 4:04 PM SPECIMEN TO PATHOLOGY Right upper lobe wedge OR 11 [id number] Anterior mediastinal mass Right upper lobe wedge excision YES, Please perform frozen section No 10/24/2019 4:22 PM Number of tissue samples (in container) 1 Time specimen removed from patient: 4:22 PM SPECIMEN TO PATHOLOGY Right upper lobe wedge #2 OR 11 [id number] Anterior mediastinal mass Right upper lobe wedge [...] IV thymoma. [facility]. Operative findings: Approximately 200 cc [...] reapproximated with #2 Vicryl sutures in a [id number] fashion.The chest wall was closed in layers [...] PM EDT Office [place] [address] Manjula Kitchen MD [facility] [place] [address] documented as of this encounter Procedures Procedure [...] MISC SOURCE Routine 10/24/2019 3:00 PM EDT NON-HIGH HEEL BUILDER FINAL REPORT Routine 10/24/2019 2:58 PM EDT CYTOPATHOLOGY NON-GYNECOLOGICAL STAT 10/24/2019 2:58 PM EDT Thoracoscopy With Biopsy of Pleura 10/24/2019 1:51 PM EDT Mediastinal mass Thoracotomy With Therapeutic Wedge Resection Ea Addl 10/24/2019 1:51 PM EDT Mediastinal mass Injection Anes Agent &/ Steroid Intercostal Nerve Ea Addl Level (91066) 10/24/2019 1:51 PM EDT Mediastinal mass Thoracotomy With Therapeutic Wedge Resection Initial 10/24/2019 1:51 PM EDT Mediastinal mass Bronchoscopy, Diagnostic (44894) 10/24/2019 1:51 PM EDT Mediastinal mass Thymectomy, Radical Mediast Disssec (15302) 10/24/2019 1:51 PM EDT Mediastinal mass BRONCHOSCOPY,DIAGNOSTI [...] O RDERABLES [facility] [place] [address] * (ABNORMAL) Differential, Automated (10/25/2019 3:30 AM EDT) Neutrophil % 81.8 % [facility] Neutrophil Absolute 10.92(H) 1.70 - 6.10 x10(3)/ L [facility] Lymph % 8.6 % [facility] Lymphocytes Abs 1.1 0.9 - 3.2 x10(3)/[facility] LAB[facility] Monocyte % 8.6 % [facility] Monocyte Abs 1.1(H) 0.3 - 0.9 x10(3)/ L [facility] Eos % 0.1 % [facility] Eosinophils Abs 0.0 0.0 - 0.4 x10(3)/[facility] LAB[facility] Basophil % 0.2 % [facility] Baso Absolute 0.0 0.0 - 0.1 x10(3)/[facility] LAB[facility] Immature Gran % 0.70 % [...] ORDERABLE S [facility] [place] [address] * (ABNORMAL) Hemogram (10/25/2019 3:30 AM EDT) [...] CENTER LABORATORY Platelet 325 145 - 357 x10(3)/mc L [facility] RDW Standard Deviation 34.5(L) 36.0 - 45.0 [facility] LABORATORY RDW coefficient of variation 16.0(H) 11.4 - 13.8 % [facility] Mean Platelet Volume 10.0 7.6 - 12.9 [facility] LABORATORY NRBC% auto 0.0 % [facility] NRBC Absolute 0.000 0.000 - 0.000 x10(3)/mc L [facility] Blood specimen (specimen) 10/25/2019 3:30 AM EDT 10/25/2019 3:41 AM EDT Narrative Resulting Agency Comment Spec In Lab Tree Blum MD HEMATOLOGY ORDERABLE S [facility] [place] [address] * (ABNORMAL) Basic Metabolic Panel (non-fasting) (10/25/2019 3:30 AM EDT) Glucose 132 65 - 199 mg/dL [facility] Comment:Diabetes: >=200 mg/d L plus symptoms Blood Urea Nitrogen 12 10 - 20 mg/dL [facility] Creatinine 0.71(L) 0.80 - 1.50 mg/dL [...] of body mass or the acutely ill. http://[employer]/[facility] eGFR 114 >=60 mL/min/1. 73 m?? [facility] Comment: The eGFR was calculated using the CKD-EPI equation. As with all creatinine based estimates of kidney function, eGFR values calculated with the CKD-EPI equation are not accurate in patients with acute kidney failure, extremes of body mass or the acutely ill. http://[employer]/DHnkf Blood specimen (specimen) 10/25/2019 3:30 AM EDT 10/25/2019 3:41 AM EDT Narrative Resulting Agency Comment Spec In Lab Jose Alvarez MD CHEMISTRY ORDERABLES [facility] [place] [address] * (ABNORMAL) Basic Metabolic Panel (non-fasting) (10/24/2019 [...] of body mass or the acutely ill. http://[employer]/DHMCnkf eGFR 111 >=60 mL/min/1. 73 m?? [facility] Comment: The eGFR was calculated using the CKD-EPI equation. As with all creatinine based estimates of kidney function, eGFR values calculated with the CKD-EPI equation are not accurate in patients with acute kidney failure, extremes of body mass or the acutely ill. http://[employer]/[facility]MCnkf Blood specimen (specimen) 10/24/2019 6:30 PM EDT 10/24/2019 6:45 PM EDT Narrative Resulting Agency Comment Spec In Lab Jose Alvarez MD CHEMISTRY ORDERABLES Performing Organization Address [facility] [place] [address] * Specimen to Pathology (10/24/2019 4:37 PM EDT) AP Specimen 10/24/2019 4:37 PM EDT 10/24/2019 4:37 PM EDT Narrative [facility] - 10/24/2019 4:37 PM EDT Specimen requisition ordered. ??Separate Pathology report to follow Jose Alvarez MD PATHOLOGY/CYTOLOGY O RDERAMICHAEL Performing Organization Address [facility] [place] [address] * Specimen to Pathology (10/24/2019 4:22 PM EDT) AP Specimen 10/24/2019 4:22 PM EDT 10/24/2019 4:22 PM EDT Narrative [facility] - 10/24/2019 4:22 PM EDT Specimen requisition ordered. ??Separate Pathology report to follow Jose Alvarez MD PATHOLOGY/CYTOLOGY O RDERAMICHAEL Performing Organization Address [facility] [place] [address] * Specimen to Pathology (10/24/2019 4:04 PM EDT) AP Specimen 10/24/2019 4:04 PM EDT 10/24/2019 4:04 PM EDT Narrative [facility] - 10/24/2019 4:04 PM EDT Specimen requisition ordered. ??Separate Pathology report to follow Jose Alvarez MD PATHOLOGY/CYTOLOGY O RDEBER Performing Organization Address [facility] Co de Phone Number [facility] [place] [address] * Specimen to Pathology (10/24/2019 3:59 PM EDT) AP Specimen 10/24/2019 3:59 PM EDT 10/24/2019 3:59 PM EDT Narrative [facility] - 10/24/2019 3:59 PM EDT Specimen requisition ordered. ??Separate Pathology report to follow Jose Alvarez MD PATHOLOGY/CYTOLOGY O BENJI Performing Organization Address [facility] [place] [address] * Specimen to Pathology (10/24/2019 3:43 PM EDT) AP Specimen 10/24/2019 3:43 PM EDT 10/24/2019 3:43 PM EDT Narrative [facility] - 10/24/2019 3:43 PM EDT Specimen requisition ordered. ??Separate Pathology report to follow Jose Alvarez MD PATHOLOGY/CYTOLOGY O BENJI Performing Organization Address [facility] [place] [address] * Surgical Pathology Report (10/24/2019 3:42 PM EDT) Pathologist [facility] Final Diagnosis [id number] ? Location: [facility]; [facility]; A The signing pathologist has (i) examined [...] Lea MD Verified: ??11/11/2019 ?Pathologist Performed at: ??-[facility] Dept. of Pathology, [place], [place] ?Surgical Pathology DIAGNOSIS A - Anterior [...] Lea MD Verified: ??11/04/2019 ?Pathologist Performed at: ??-[facility] Dept. of Pathology, [place], [place] SYNOPTIC Specimen ? Procedure: ??Thymectomy Tumor [...] following tissue is submitted for frozen section: Adjunct Mathematics Instructor section of the mass. Inked, serially sectioned and patient representative sections submitted in 9 cassettes as follows: . SPECIMEN PROCESSING ?A1: ??FS-1 ?A2-A9: ??Adjunct Mathematics Instructor sections of lesion B - Labeled/Fixative: Right [...] following tissue is submitted for frozen section: Adjunct Mathematics Instructor section of nodule. Adjunct Mathematics Instructor sections in 4 cassettes as follows: ?B1: ??FS 1 ?B2: ??Stable line margins ?B3-B4: ??Adjunct Mathematics Instructor sections C - Labeled/Fixative: Right middle lobe [...] Jarrod Vora Verified: ??10/24/2019 ?Pathologist Performed at: ??-[facility] Dept. of Pathology, [place], [place] This intraoperative consultation should be interpreted [...] O RDERABLES [facility] [place] [address] * (ABNORMAL) BLOOD GAS 2 ARTERIAL (10/24/2019 [...] MEDICAL CENTER LABORATORY FIO2 Art 84 % [facility] PF Ratio Art 96 [facility] Temp Art 37.1 Celsius [facility] Blood specimen (specimen) Arterial Draw / Unknown 10/24/2019 3:38 PM EDT 10/24/2019 4:50 PM EDT Narrative Resulting Agency Comment Spec In Lab Mata Carrillo MD POINT OF CARE TEST O RDERABLES Performing Organization Address [facility] Co de Phone Number [facility] [place] [address] * Anaerobic Culture (10/24/2019 3:00 PM EDT) Anaerobic Culture No anaerobic organisms isolated [facility] Pleural fluid specimen (specimen) 10/24/2019 3:00 PM EDT 10/24/2019 3:43 PM EDT Comment:RIGHT PLEURAL FLUID Narrative Resulting Agency Comment Spec In Lab Jose Alvarez MD MICROBIOLOGY - GENER AL ORDERABLES Performing Organization Address [facility] Co de Phone Number [facility] [place] [address] * Body Fluid Culture, Aerobic (10/24/2019 3:00 [...] - GENER AL ORDERABLES Performing Organization Address [facility] Co de Phone Number [facility] [place] [address] * Anaerobic Culture (10/24/2019 3:00 PM EDT) Anaerobic Culture No anaerobic organisms isolated [facility] Specimen from lung (specimen) 10/24/2019 3:00 PM EDT 10/24/2019 3:41 PM EDT Comment:PLEURAL GRUMOUS Narrative Resulting Agency Comment Spec In Lab Jose Alvarez MD MICROBIOLOGY - GENER AL ORDERABLES Performing Organization Address [facility] Co de Phone Number [facility] [place] [address] * Tissue culture (10/24/2019 3:00 PM EDT) [...] - GENER AL ORDERABLES Performing Organization Address [facility] Co de Phone Number [facility] [place] [address] * Fungus culture Other (10/24/2019 3:00 PM EDT) Fungus Culture No Fungus isolated [facility] Specimen of unknown material (specimen) 10/24/2019 3:00 PM EDT 10/24/2019 3:44 PM EDT Comment:PLEURAL GRUMOUS Narrative Resulting Agency Comment Spec In Lab Jose Alvarez MD MICROBIOLOGY - GENER AL ORDERABLES Performing Organization Address [facility] Co de Phone Number [facility] [place] [address] * AFB culture Lung (10/24/2019 3:00 PM [...] MD MICROBIOLOGY - GENER AL ORDERABLES [facility] [place] [place] [address] * Non-Draw Hand Final Report (10/24/2019 2:58 PM EDT) Diagnosis Discussion [id number] ? Location: 3WST; 0302; A The signing pathologist has (i) examined the relevant preparation(s) for the specimen(s) and (ii) rendered or confirmed the diagnosis(es). . ? Non-Draw Hand Final DIAGNOSIS Negative for Malignancy Electronically signed by: ??Harsh JORDAN PhD, Juancarlos Schmitz Verified: ??10/27/2019 ?Pathologist Performed at: ??-[facility] Dept. of Pathology, [place], [place] DISCUSSION Pleural, right (thoracentesis): The specimen [...] MD PATHOLOGY/CYTOLOGY O BENJI Performing Organization Address [facility] de Phone Number [facility] [place] [address] * Cytopathology Non-Gynecological (10/24/2019 2:58 PM EDT) AP Specimen 10/24/2019 2:58 PM EDT 10/24/2019 2:58 PM EDT Narrative [facility] - 10/24/2019 2:58 PM EDT Specimen requisition ordered. ??Separate Pathology report to follow Jose Alvarez MD PATHOLOGY/CYTOLOGY O BENJI Performing Organization Address [facility] de Phone Number [facility] [place] [address] documented in this encounter Visit Diagnoses Diagnosis [...] in 24 hours, Recovery (Recovery-Hospital Unit), Routine 1900 (Given - Provider: Sera Silva, EVER) 0016 (Given - Provider: Paula Marion, RN)0605 (Given - Provider: Paula Marion, RN)1109 (Given - Provider: Master Campbell RN)1717 [...] on Sun10/24/19 at 2130, Until Discontinued, Routine 2147 (Given - Provider: Paula Marion RN) 0900 (Not Given - Provider: Master Campbell RN - Reason: Patient/family refused)1500 (Not Given - Provider: Master Campbell RN - Reason: Patient/family refused)215 (Given - Provider: Lillian Sinha RN) 0900 (Not Given - Provider: Ana [...] Discontinued, Routine 2147 (Given - Provider: Paula Marion RN) 0605 [...] Master Campbell RN)1717 (Given - Provider: Master Campbell, EVER) 0127 (Given - Provider: Norma Gr, EVER) lactated ringers infusion (CANCELED) 100 mL/hr, Intravenous, ONCE, 1 dose, On Sun10/24/19 at 1915, Recovery (Recovery-Hospital Unit) 1910 (Restarted - Provider: Sera Silva, RN)1913 (Not Given - Provider: Sera Silva RN - Reason: See comment - Comment: used service IV order) 0438 (Stopped - Provider: Paula Marion, RN) senna (Senokot) tablet 17.2 mg 17.2 mg, Oral, EVERY EVENING, First dose on Sun10/25/19 at 1700, Until Discontinued, Routine 1700 (Not Given - Provider: Master Campbell RN - Reason: Patient/family refused) sodium chloride 0.9 % (flush) flush 5 mL 5 mL, Intravenous, 2 TIMES DAILY, First dose on Sun10/24/19 at 2130, Until Discontinued, Recovery (Recovery-Hospital Unit), Routine 2130 (Not Given - Provider: Paula Marion, RN - Reason: See comment) 1112 (Given - Provider: Master Campbell RN)2159 (Given - Provider: Lillian Sinha, EVER) 0900 (Given - Provider: Ana Luisa Ramirez, EVER) Continuous Medication Order 10/24/2019 10/25/2019 10/26/2019 lactated [...] Until Sun10/26/19 at 1605, Intra-Operative (Intra-Procedure), Routine 1646 (Given [...] Marion, RN) 0442 (Given - Provider: Paula Marion RN) sodium chloride 0.9 % (flush) flush [...] documented as of this encounter Care Teams Cushion Cover Inspector Relationship Specialty Start Date End Date Christiana Moore APRN [address] [place] [address] PCP - General Family Medicine 09/26/19 documented as of this encounter
--- OUTSIDE RECORDS SUMMARY | 2024-01-22 13:27 | XMS_ITS | Encounter Summary ---
Author Organization [facility] [place] [address] Care Team Providers Care Grocery Department Manager Name Role Phone Christiana Moore RYAN Primary Care Provider [phone] Reason for Visit * Auth/Cert Specialty Diagnoses [...] Expiration Date Visits Re quested Visits Authorized [id number] 1 1 Encounter Details Date Type Department Care Team (Late st Contact Info) Description 10/21/2019 9:15 [place] [address] COVID-19 ruled out Social History [...] PM EDT Office Visit General Surgery at [facility] [place] [address] Manjula Kitchen MD [facility] [place] [address] documented as of this encounter Procedures Procedure Name Priority Date/Time Associated Diagnosis Comments COVID-19 PCR STAT 10/21/2019 10:27 AM EDT COVID-19 ruled out documented in this encounter Results * COVID-19 PCR (10/21/2019 10:27 AM EDT) SARS-CoV-2 RNA Not Detected Not Detected [facility] Comment: This result should be interpreted in combination with the clinical observations, patient history and epidemiological information. For testing of asymptomatic individuals, assay performance characteristics and clinical utility have not been evaluated. Testing for SARS-CoV-2 (Severe acute respiratory syndrome coronavirus 2, formerly known as 2019 novel coronavirus or 2019-nCoV) to aid in the diagnosis of COVID-19 is performed using the [employer] RealTime SARS-CoV-2 as authorized by the FDA Emergency Use Authorization (EUA). This EUA assay is intended for In-vitro Diagnostic (IVD) use with respiratory specimens such as nasopharyngeal swabs collected from individuals during the acute phase of infection. This assay is performed based on the instructions for use provided by the [employer] and additional guidance provided by CDC and FDA. Testing is performed in the [facility] Laboratory within the Department of Pathology and Laboratory Medicine at [facility], certified under the Clinical Laboratory Improvement [...] fact sheets at the following FDA website: https://www.fda.gov/medical-devices/pzxxgtfsm-ytqvsiakco-zjanprz-devices/emergen -us e-authorizations#wcioy33rtv SARS-CoV-2 RNA Source WELT BUTTER HAND Swab [facility] Nasopharyngeal swab (specimen) 10/21/2019 10:27 AM EDT 10/21/2019 10:27 AM EDT Comment:Symptoms->Asymptomat ic Narrative Resulting Agency Comment Spec In Lab Quentin Carlin MD MOLECULAR ORDERABLES [facility] [place] [address] documented in this encounter Visit Diagnoses Diagnosis COVID-19 ruled out documented in this encounter Care Teams Grocery Department Manager Relationship Specialty Start Date End Date Christiana Moore APRN [address] [place] [address] PCP - General Family Medicine 09/26/19 documented as of this encounter
--- OUTSIDE RECORDS SUMMARY | 2024-01-22 13:27 | XMS_ITS | Encounter Summary ---
Author Organization [facility] Address [address] [place] [address] Care Team Providers Care Apprenticeship Representative Name Role Phone Unknown, Provider Primary Care Provider Reason for Referral * Radiology Services (Routine) - Closed Specialty Diagnoses / Procedures Referred By Contac t Referred To Contact Diagnoses Primary osteoarthritis involving multiple joints Procedures XR HAND LEFT 3 OR MORE VIEWS Guillermo Zhou Chi, MD [address] [place] [phone] Referral ID Status Reason Start Date Expiration Date Visits Re quested Visits Authorized [id number] Closed 10/25/2020 1 1 * Radiology Services (Routine) - Order Cancelled Specialty Diagnoses / Procedures Referred By Contac t Referred To Contact Diagnoses Primary osteoarthritis involving multiple joints Procedures XR HAND LEFT 3 OR MORE VIEWS Guillermo Zhou Chi, MD [address] [place] [phone] Referral ID Status Reason Start Date Expiration Date V isits Requested Visits Authorized [id number] Order Cancelled 10/25/2020 1 1 Reason for Visit * Radiology Services (Routine) - Order Cancelled Specialty Diagnoses / Procedures Referred By Contac t Referred To Contact Diagnoses Primary osteoarthritis involving multiple joints Procedures XR HAND LEFT 3 OR MORE VIEWS Guillermo Zhou Chi, MD [address] [place] [phone] Referral ID Status Reason Start Date Expiration Date V isits Requested Visits Authorized [id number] Order Cancelled 10/25/2020 1 1 Encounter Details Date Type Department Care Team (Latest Contact Info) Description 10/25/2020 11:39 EDT - 10/25/2020 23:59 EDT Hospital Encounter [facility] Radiology Xray Outpatient - [address] [address] Primary osteoarthritis involving multiple joints [...] and triscaphe degenerative changes are also present. uGillermo Zhou MD IMG DIAGNOSTIC IMAGI NG ORDERABLES documented in this encounter Visit Diagnoses Diagnosis Primary osteoarthritis involving multiple joints documented in this encounter Care Teams Apprenticeship Representative Relationship Specialty Start Date End Date Unknown, Provider, PCP - General 10/22/20 documented as of this encounter
--- OUTSIDE RECORDS SUMMARY | 2024-01-22 13:27 | XMS_ITS | Encounter Summary ---
Author Organization [facility] Address [address] [place] [address] Care Team Providers Care Weaving Professor Name Role Phone Unknown, Provider Primary Care Provider [phone] Encounter Details Date Type Department Care Team [...] on filedocumented in this encounter Care Teams Weaving Professor Relationship Specialty Start Date End Date Unknown, Provider, PCP - General 10/22/20 documented as of this encounter
[2024-01-22 14:21] LABS: Abs Immature Grans 0.06 10^3/uL (0.0-0.06); Absolute Basophil Count 0.06 10^3/uL (0.0-0.2); Absolute Lymphocyte Count 1.65 10^3/uL (1.2-3.4); Absolute Monocyte Count 0.72 10^3/uL (0.1-0.8); Absolute Neutrophil Count 4.78 10^3/uL (1.2-6.7); Basophils % 0.8 %; Eosinophils % 1.4 %; HCT 44.8 % (40.0-50.0); HGB 13.8 g/dL (13.5-17.5); Immature Grans % 0.8 %; Lymphocytes % 22.4 %; MCH 20.8 pg (27.0-33.0); MCHC 30.8 % (32.0-36.0); MCV 68 fL (80-95); MPV 10.8 fL (8.0-11.0); Monocytes % 9.8 %; Neutrophils % 64.8 %; Platelet Count 286 10^3/uL (130-400); RBC 6.64 10^6/uL (4.36-5.78); RDW 17.9 % (11.8-14.1); RDW-SD 39.1 fL; WBC 7.37 10^3/uL (4.4-10.8)
[2024-01-22 14:48] LABS: Iron 67 ug/dL (65-175); Total Iron Binding Capacity 326 ug/dL (250-450); Transferrin Sat 21 % (20-55)
[2024-01-22 14:53] LABS: ALT 17 U/L (16-63); AST 15 U/L (15-37); Albumin 3.5 g/dL (3.4-5.0); Alkaline Phosphatase 109 U/L (46-116); Anion Gap 9.4 mmol/L (3-11); BUN 16 mg/dL (7-18); Bilirubin, Total 0.36 mg/dL (0.2-1.0); CO2 27.6 mmol/L (21.0-32.0); Calcium 9.3 mg/dL (8.5-10.1); Calculated LDL 86 mg/dL (<100); Chloride 105 mmol/L (98-107); Cholesterol 167 mg/dL (<200); Estimated GFR 81.47 (mL/min/1.73m2); Ferritin 29 ng/mL (26-388); Glucose 89 mg/dL (74-106); HDL Cholesterol 45 mg/dL (40-60); Potassium 4.4 mmol/L (3.5-5.1); Sodium 142 mmol/L (136-145); Total Protein 8.2 g/dL (6.4-8.2); Triglyceride 181 mg/dL (<150)
[2024-01-22 23:03] LABS: PSA, Screening 3.4 ng/mL (<=4.5)
== END 2024-01-22 13:20 | disposition home or self-care (01) ==
LOC: NCHCN 13:19
PROVIDERS: PCP Nurse Practitioner Family; Visit Provider Nurse Practitioner Family
DX: E78.5 Hyperlipidemia, unspecified (principal); D50.9 Iron deficiency anemia, unspecified; Z12.5 Encounter for screening for malignant neoplasm of prostate
CPT/HCPCS: 80053; 80061; 84153; 82728; 83540; 83550; 85025

== ENCOUNTER 2024-01-25 00:29 | Outpatient (CLI) | payer MEDICARE, SELFPAY ==
--- NOTE | 2024-01-25 | DI.CT_ITS ---
Exam(s) CT CHEST WO EXAM: CT CHEST WO CLINICAL HISTORY: MULTIPLE NODULES OF LUNG, R91.8, ABNL FINDING LUNG FIELD TECHNIQUE: Imaging Protocol: Axial computed tomography images with coronal and sagittal reformatted images were created and reviewed CONTRAST MATERIAL: This is a noncontrast examination. COMPARISON: CT CT CHEST W CONTRAST from 12/08/[address] CHEST WO CONTRAST (GENERIC) from 10/17/2022 FINDINGS: Tracheobronchial tree: Patent where visualized. No evidence of bronchiectasis. Pulmonary parenchyma: There again seen pulmonary nodules. The largest on the left measures 5-6 mm co mpared to 7 mm on the prior examination. No new nodules are seen. There again seen postsurgical sandy nges in the right hemithorax. There is scarring seen in the lung bases bilaterally. No focal consol idating infiltrates are present. Mediastinum and Mercy: No dominant adenopathy or fluid collection. The esophagus is unremarkable. The re are surgical clips in the anterior mediastinum. Thyroid gland: Unremarkable. Pleura: No effusion or pneumothorax. Heart: The heart is not dilated. Mild coronary artery calcification is present. No pericardial effus ion. Aorta: The ascending thoracic aorta measures 4 x 3.9 cm. Atherosclerotic calcification is present. Upper abdomen: A portion of the left superior renal cyst is again seen. Lymph nodes: Within normal limits. Bones: Within normal limits for the patient's age. Soft tissues: Unremarkable. IMPRESSION: Stable pulmonary nodules. No new nodules are seen. RADIATION DOSE DELIVERED: 172.92mGy.cm Total DLP DATA REPOSITORY: All CT scans at this facility are submitted to the National Radiology Data Registry (NRDR) Dose Index Registry (DIR) with the [employer] (ACR). RADIATION OPTIMIZATION: All CT scans at this facility use at least one of these dose optimization te chniques: automated exposure control; mA and/or kV adjustment per patient size (includes targeted exa ms where dose is matched to clinical indication); or iterative reconstruction.
--- OUTSIDE RECORDS SUMMARY | 2024-01-25 00:30 | XMS_ITS ---
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 severity] [...] 4 1:37PM By Celena Sandoval RN ; [facility] Medications Administered Includes: Administered Medications in patient's chart No Administered Medications Recorded Vital Signs Includes: Vital Signs from 01/24/2021 through 01/25/2024 Vital Name 06/28/2023 09:33A Blood Pressure Sitting L 124/86 BP Cuff Size Regular Pulse Rate-Sitting (bpm) 68 Height (in) 71 Weight (lb) 169 Body Mass Index 23.6 Body Surface Area 2 Oxygen Saturation (%) 97 Last Documented: On 06/28/2023 9:37AM ; [facility] Results Includes: Results from 01/24/2021 through 01/25/2024 [facility] oratory Ordered by Ramakrishna hernandez MD on 05/14/2023 [address] [facility], [place], [address] Collected: 05/14/2023 Report ed: 05/14/2023 15:26 tel: Last Documented On 4 7:15AM ; [facility] Reviewed by Ramakrishna smith MD on 05/15/2023; All test results are final unless otherwise noted. COMMENT~COMMENT See Note None Last Documented On 05/14/2023 4:36PM ; [facility] Note: RUN DATE: 05/14/23 [facility] *LIVE* PAGE 1 RUN TIME: 1526 Specimen Inquiry RUN USER: INTERFACE PATIENT: TIMOTHY LANTIGUA LOC: SUZANNE U #: [id number] AGE/SX: 68/M ROOM: [facility] RE05/06/23REG DR: Josi Smith MD : 54 BED: 1 DIS: STATUS: ADM IN TLOC: SPEC #: [id number] RECD: 05/09/23 STATUS: FIORELLA MACEDO #: [id number] RA: 05/09/23-[address]: Josi Smith MD ENTERED: 05/10/23-1020 SP TYPE: SURG OTHR DR: No Primary or Family Physician Ramakrishna Bennett MD, Carlos C Jr MD Mishra, Avantika MDORDERED: 34908/2, 93209, SPEC TRACKING, ANATOMIC SPECIM, COPIES TO: No Primary or Family Physician Josi Smith MD [address] [facility], [place] [id number] Ramakrishna Bennett MD [address] [facility] [address] [place], [place] [address] Jose Germain Jr, MD [address] [place] [address] [place] [address] [facility] [place], [place] [id number] HISTOLOGY: TISSUE ID LEVEL PROCEDURE ____ APPENDIX A 2-1 HE COLON,SIGMOID B 12-1 PROCEDURES: 29714 (05/14/23-1521) 22792 (05/14/23) TISSUES: A. APPENDIX B. COLON,SIGMOID C. SOFT TISSUE - DONUTS CONTINUED ON NEXT PAGE RUN DATE: 05/14/23 [facility] *LIVE* PAGE 2 RUN TIME: 1526 Specimen Inquiry RUN USER: INTERFACE SPEC #: [id number] PATIENT: TIMOTHY LANTIGUA #[id number] (Continued) --- CLINICAL HISTORY BOWEL OBSTRUCTION FINAL [...] There is no gross evidence of tumor. Treer sections are submitted labeled A1 A2. B. [...] identified which appeared to be reactive grossly. Treer sections are submitted as follows. Section summary: [...] in cassette C1. Technical component performed at [facility] [address] [facility] [address], [place] [address] Unless gross only, the diagnosis is based upon microscopic examination.Immunohistochemistry: This test was developed and its performance characteristics CONTINUED ON NEXT PAGE RUN DATE: 05/14/23 [facility] LAB *LIVE* PAGE 3 RUN TIME: 1526 Specimen Inquiry RUN USER: INTERFACE SPEC #: [id number] PATIENT: TIMOTHY LANTIGUA #[id number] (Continued) --- JULIA (Continued) determined by this [...] by Ramakrishna hernandez MD on 05/14/2023 [address] [place], [address] Collected: 05/14/2023 Report ed: 05/14/2023 15:26 tel: Last Documented On 4 7:15AM ; [facility] Reviewed by Ramakrishna smith MD on 05/15/2023; All test results are final unless otherwise noted. Reported Physicians See Note None Last Documented On 05/14/2023 4:36PM ; [facility] Note: Reported Physicians:Ordering: Davey BennettgioAttending: Chyshkevych, IrynaReferring: Referred, SelfConsulting: AMARI GUSMANAdmitting: Chyshkevych, IrynaCopy To: Physician, NoCopy To: Donald SergioCopy To: Marcellus CarlosCkatherine To: Pratibha Waldrop CYTOLOGY (NON-MANAGER REPORTING) [facility] oratory Ordered by Ramakrishna hernandez MD on 05/11/2023 [address] [place], [address] Collected: 05/11/2023 Report ed: 05/11/2023 15:09 tel: Last Documented On 4 3:45PM ; [facility] Reviewed by Ramakrishna smith MD on 05/11/2023; All test results are final unless otherwise noted. COMMENT~COMMENT See Note None Last Documented On 05/11/2023 3:34PM ; [facility] Note: RUN DATE: 05/11/23 [facility] *LIVE* PAGE 1 RUN TIME: 1509 Specimen Inquiry RUN USER: INTERFACE PATIENT: TIMOTHY LANTIGUA LOC: SUZANNE U #: [id number] AGE/SX: 68/M ROOM: [facility] RE05/06/23REG DR: Josi Smith MD : 53 BED: 1 DIS: STATUS: ADM IN TLOC: SPEC #: [id number] RECD: 05/10/23-1251 STATUS: FIORELLA REQ #: [id number] RA: 05/09/23-[address]: Josi Smith MD ENTERED: 05/10/23 SP TYPE: CYTO OTHR DR: No Primary or Family Physician Ramakrishna Bennett MD, Carlos C Jr MD Mishra, Avantika MDORDERED: [id number], [id number], SPEC TRACKING, ANATOMIC SPECIM, HE COPIES TO: No Primary or Family Physician Josi Smith MD [address] [place], [place] [id number] Ramakrishna Bennett MD [address] [facility] [address] [place], [place] [address] Jose Germain Jr, MD [address] [place] [address] [place] [address] [facility] [address] [place], [place] [id number] HISTOLOGY: TISSUE ID LEVEL PROCEDURE ____ *PERITFL A 1-1 PROCEDURES: 59514 (05/11/23-1456) 70777 (05/11/23) TISSUES: A. PERITONEAL FLUID - 7.0CC OF DARK RED TURBID FLUID CONTINUED ON NEXT PAGE RUN DATE: 05/11/23 [facility] *LIVE* PAGE 2 RUN TIME: 1509 Specimen Inquiry RUN USER: INTERFACE SPEC #: [id number] PATIENT: TIMOTHY LANTIGUA #[id number] (Continued) CLINICAL HISTORY BOWEL OBSTRUCTION FINAL DIAGNOSIS [...] block are prepared. Technical component performed at [address], [place] [address] Unless gross only, the diagnosis is based [...] 05/11/23 1509 END OF REPORT Reported Physicians [facility] oratory Ordered by Ramakrishna hernandez MD on 05/11/2023 [address] [facility], [place], [address] Collected: 05/11/2023 Report ed: 05/11/2023 15:09 tel: Last Documented On 4 3:45PM ; [facility] Reviewed by Ramakrishna smith MD on 05/11/2023; All test results are final unless otherwise noted. Reported Physicians See Note None Last Documented On 05/11/2023 3:34PM ; [facility] Note: Reported Physicians:Ordering: Ariana Bennettttending: Sarah, IrynaReferring: Referred, SelfConsulting: Physician, NoAdmitting: Sarah IrynaCopy To: Physician, NoCopy To: Davey BennettgioCopy To: Marcellus CarlosCkatherine To: Pratibha Waldrop SURGICAL [facility] oratory Ordered by Ramakrishna hernandez MD on 05/10/2023 [address] [facility], [place], [address] Collected: 05/10/2023 Report ed: 05/10/2023 14:18 tel: Last Documented On 4 3:45PM ; [facility] Reviewed by Ramakrishna smith MD on 05/11/2023; All test results are final unless otherwise noted. Review Note Provider Name Date reviewed with patient Ramakrishna Bennett MD 05/2023 COMMENT~COMMENT See Note None Last Documented On 05/10/2023 3:23PM ; [facility] Note: RUN DATE: 05/10/23 [facility] *LIVE* PAGE 1 RUN TIME: 1418 Specimen Inquiry RUN USER: INTERFACE PATIENT: TIMOTHY LANTIGUA LOC: SUZANNE U #: [id number] AGE/SX: 68/M ROOM: [facility] RE05/06/23REG DR: Josi Smith MD : 53 BED: 1 DIS: STATUS: ADM IN TLOC: SPEC #: [id number] RECD: 05/08/23-1600 STATUS: FIORELLA REQ #: [id number] RA: 05/08/23-[address]: Josi Smith MD ENTERED: 05/09/23-1227 SP TYPE: SURG OTHR DR: No Primary or Family Physician Ramakrishna Bennett MD, Carlos C Jr MD Mishra, Avantika MDORDERED: [id number], SPEC TRACKING, ANATOMIC SPECIM, HE COPIES TO: No Primary or Family Physician Josi Smith MD [address] [place] [address] Ramakrishna Bennett MD [address] [facility] [address] [place], [place] [address] Jose Germain Jr, MD [address] [place] [address] [place] [address] [facility] [address] [place], [place] [id number] HISTOLOGY: TISSUE ID LEVEL PROCEDURE ____ COLON A 1-1 PROCEDURES: 17254 (05/10/23) TISSUES: A. COLON - BX CONTINUED ON NEXT PAGE RUN DATE: 05/10/23 [facility] *LIVE* PAGE 2 RUN TIME: 1418 Specimen Inquiry RUN USER: INTERFACE SPEC #: [id number] PATIENT: KATTTIMOTHY #[id number] (Continued) --- CLINICAL HISTORY DIVERTICULITIS FINAL DIAGNOSIS [...] in 1 cassette. Technical component performed at [facility] [address] [facility] [address], [place] [address] Unless gross only, the diagnosis is based [...] by Ramakrishna hernandez MD on 05/10/2023 [address] [facility], [place], [address] Collected: 05/10/2023 Report ed: 05/10/2023 14:18 tel: Last Documented On 4 3:45PM ; [facility] Reviewed by Ramakrishna smith MD on 05/11/2023; All test results are final unless otherwise noted. Review Note Provider Name Date reviewed with patient Ramakrishna Bennett MD 05/2023 Reported Physicians See Note None Last Documented On 05/10/2023 3:23PM ; [facility] Note: Reported Physicians:Ordering: Ariana Bennettttending: Adolfo SmithaReferring: Referred, SelfConsulting: Physician, NoAdmitting: Sarah IrynaCopy To: Physician, NoCopy To: Raymond BennettoCodaisy To: Karan GermainsCkatherine To: Pratibha Waldrop Social History Description Last [...] Procedures and Surgical History Includes: Procedures from 01/24/2021 through 01/25/2024 Procedures Code Diagnosis Performing Provider Service Location Service Date Body Mass Index, documented 3008F Body mass index [BMI] 23.0-23.9, adult Garrison Kwan MD [facility] 06/28/2023 Last Documented On 4 2:53PM ; [facility] PQRI Most recent systolic blood pressure <130 mmHg 3074F Body mass index [BMI] 23.0-23.9, adult Garrison Kwan MD [facility] 06/28/2023 Last Documented On 4 2:53PM ; [facility] P[facility] Most recent diastolic blood pressure 80-89mmHg 3079F Body mass index [BMI] 23.0-23.9, adult Garrison Kwan MD [facility] [address] 06/28/2023 Last Documented On 4 2:53PM ; [facility] Colectomy, Part W/coloproctostomy [address]131 Dvtrcli of lg int w perforation and abscess w/o bleeding Ramakrishna Bennett MD [facility] In-Patient 05/09/2023 Last Documented On 4 11:20AM [...] 05/10 Last Documented On 4 2:07PM ; [facility] Review of Systems Review of Systems not supported for this document type No Review of Systems Recorded Mental Status Description Oriented to time, place, and person Functional Status No Functional Status Recorded Physical Exam Physical Exam not supported for this document type No Physical Exam Recorded Allergies Includes: Active, inactive, and resolved Allergies No Known Allergies Encounters Includes: Encounters from 01/24/2021 through 01/25/2024 Encounter Provider Location Date Check-In Time Check-Out Time Diagnosis Post-Op Visit Ramakrishna Bennett MD [facility] Surgery [place] 07/27/19 24 9:53AM 10:29AM Post-Op Visit Ramakrishna Bennett MD [facility] Surgery [place] 06/29/19 24 9:55AM 10:12AM New Patient/Consul t Garrison Kwan MD [place] [address] 06/28/19 24 8:58AM 10:06AM Chronic Cutaneous Ulcer Non-pressure Back,Colonic Diverticulos is,Personal History of Colon Polyps Post-Op Visit Ramakrishna Bennett MD [facility] Surgery [place] 06/01/19 24 9:52AM 10:14AM Post-Op Visit Ramakrishna Bennett MD [facility] Surgery [place] 05/25/19 24 1:06PM 1:40PM DH Procedures Ramakrishna Bennett MD [facility] Surgery [place] 05/09/19 24 3:00PM 11:59PM Insurance Includes: Active Insurance Policies Plan Name Member ID Group # Subscriber Relationship Effect lanre Dates 1 - AARP Medicare Advantage HMO/POS/PPO - [facility] [id number] Timothy Lantigua Self 06/27/2023 - Unknown Clinical Notes Includes: Signed Clinical Notes starting from 11/17/2022 * Progress note Date Encounter Last Documented by 07/27/2023 Post-Op Visit Last documented on 07/27/2023; 10:10 AM, aRmakrishna Bennett MD; [facility] Chief Complaint The Chief [...] on 06/29/2023; 10:46 AM, Ramakrishna Bennett MD; [facility] Chief Complaint The Chief Complaint is: Post-Op Visit: Diagnostic Laparotomy converted to Open Low Anterior resection + umbilical hernia repair + sigmoidoscopy 05/09/2023. Reports doing better, 7 weeks out energy improving and was able to complete travel to [place] without issues. 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 Lamar removed and wound opened for concerns of [...]
--- OUTSIDE RECORDS SUMMARY | 2024-01-25 00:30 | XMS_ITS | Clinical Summary ---
Author Organization [facility] Address [address] [place] [address] Phone Care Team Providers Care Supply Chain Associate Name Role Phone Chris Kwan MD, [...] On 07/27/2023 10:10AM ; [facility] Future Appointments Date Time Location Provi jewel Office Visit 03/14/2024 8:15AM [facility] [address] Ramakrishna Bennett MD [...] 05/10 Last Documented On 4 9:58AM ; [facility] Review of Systems Includes: Review [...] Time Diagnosis Post-Op Visit Ramakrishna Bennett MD [facility] 07/27/19 24 9:53AM 10:29AM Insurance Includes: Active Insurance Policies Plan Name Member ID Group # Subscriber Relationship Effect lanre Dates 1 - [facility]/POS/PPO - [facility] [id number] Tree Lantigua Self 06/27/2023 - Unknown Clinical Notes Includes: Clinical Notes from this encounter * Progress note Date Encounter Last Documented by 07/27/2023 Post-Op Visit Last documented on 07/27/2023; 10:10 AM, Ramakrishna Bennett MD; [facility] Chief Complaint The Chief [...]
--- OUTSIDE RECORDS SUMMARY | 2024-01-25 00:30 | XMS_ITS | Clinical Summary ---
Author Organization [facility] Address [address] [place] [address] Phone Care Team Providers Care Transliterator Name Role Phone Chris Kwan MD, Gr[place] Unavailable [phone] Donald [...] On 4 1:08AM ; [facility] Future Appointments Date Time Location Provi jewel Office Visit 03/14/2024 8:15AM IMG [facility]kwd [address] Ramakrishna Bennett MD Last Documented On 4 1:03PM ; [facility] Education and Decision Aids were provided during visit for: No patient clara hopkins Advanced Directive pt declined Last Documented On 4 9:24AM ; [facility] Assessments Includes: Assessments from this encounter Findings - Z86.010 - Personal history of colonic polyps - Last Documented On 06/28/2023 10:09AM ; [facility] Continue to follow with GI for repeat colonoscopy - Last Documented On 06/28/2023 10:09AM ; [facility] - K57.30 - Diverticulosis of large intestine without perforation or abscess without bleeding - Last Documented On 06/28/2023 10:09AM ; [facility] LUTS postsurgery. - Last Documented On 06/28/2023 10:09AM ; [facility] Patient is doing well - Last Documented On 06/28/2023 10:09AM ; [facility] Continue to follow with surgery Dr. 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 - Last Documented On 06/28/2023 10:09AM ; [facility] Okay to change to collagen dressing changes - Last Documented On 06/28/2023 10:09AM ; [facility] Instructions Includes: Instructions from this encounter Education and Decision Aids were provided during visit for: No patient education clara Advanced Directive pt declined Last Documented On 4 9:24AM ; [facility] Medical Equipment - Implanted Devices [...] index [BMI] 23.0-23.9, adult Garrison Kwan MD [facility] [place] [address] 06/28/2023 Last Documented On 4 2:53PM ; [facility] PQRI Most recent systolic blood pressure <130 mmHg 3074F Body mass index [BMI] 23.0-23.9, adult Garrison Kwan MD [facility] [place] [address] 06/28/2023 Last Documented On 4 2:53PM ; [facility] PQRI Most recent diastolic blood pressure 80-89mmHg 3079F Body mass index [BMI] 23.0-23.9, adult Garrison Kwan MD [facility] [place] [address] 06/28/2023 Last [...] Check-Out Time Diagnosis New Patient/Consu lt Garrison Kwan MD [facility] [address] 06/28/19 24 8:58AM 10:06AM Chronic Cutaneous Ulcer Non-pressure Back,Colonic Diverticulos is,Personal History of Colon Polyps Insurance Includes: Active Insurance Policies Plan Name Member ID Group # Subscriber Relationship Effect lanre Dates 1 - [facility] Medicare Advantage HMO/POS/[facility] [id number] Tree Lantigua Self 06/27/2023 - Unknown Clinical Notes Includes: Clinical Notes from this encounter * Progress note Date Encounter Last Documented by 06/28/2023 New Patient/Consult Last kayleigh benton on 06/28/2023; 10:09 AM, Garrison Kwan MD; [facility] Chief Complaint New patient/ consult [...] with his primary doctor back home in [place] and usually gets his yearly physicals and [...]
--- OUTSIDE RECORDS SUMMARY | 2024-01-25 00:30 | XMS_ITS | Clinical Summary ---
Author Organization [facility] Address [address] [place] [address] Phone Care Team Providers Care Carrot Buncher Name Role Phone Chris Kwan MD, Garrison [...] and was able to complete travel to [place] without issues. Here to assess abdominal wound [...] On 06/29/2023 10:46AM ; [facility] Future Appointments Date Time Location Provi jewel Office Visit 03/14/2024 8:15AM IMSharmila Monzon Rn[address] Ramakrishna Bennett [...] 06/28/2023 Last Documented On 4 9:59AM ; [facility] Daily coffee consumption was one [...] 05/10 Last Documented On 4 9:59AM ; [facility] Review of Systems [...] Time Diagnosis Post-Op Visit Ramakrishna Bennett MD [facility] 9:55AM 10:12AM Insurance Includes: Active Insurance Policies Plan Name Member ID Group # Subscriber Relationship Effect lanre Dates 1 - [facility] Medicare Advantage HMO/POS/PPO - [facility] [id number] Tree Lantigua Self 06/27/2023 - Unknown Clinical Notes Includes: Clinical Notes from this encounter * Progress note Date Encounter Last Documented by 06/29/2023 Post-Op Visit Last documented on 06/29/2023; 10:46 AM, Ramakrishna Bennett MD; [facility] Chief Complaint The Chief Complaint is: Post-Op Visit: Diagnostic Laparotomy converted to Open Low Anterior resection + umbilical hernia repair + sigmoidoscopy 05/09/2023. Reports doing better, 7 weeks out energy improving and was able to complete travel to [place] without issues. Here to assess abdominal wound [...]
--- OUTSIDE RECORDS SUMMARY | 2024-01-25 00:30 | XMS_ITS ---
Care Plan - [facility] Created on: January 25, 2024 Tree Lantigua : 1955 Sex: Male Author Organization [facility] Address [address] [facility] [place] [address] Phone Care Team Providers Care Diver Helper Name Role Phone Chris Kwan MD, Garrison Unavailable [phone] Donald JORDAN, Ramakrishna Dennys Unavailable [phone]
--- OUTSIDE RECORDS SUMMARY | 2024-01-25 00:30 | XMS_ITS | Clinical Summary ---
Author Organization [facility] Address [address] [place] [address] Phone Care Team Providers Care Electronics Technician Apprentice Name Role Phone Chris Kwan MD, Garrison [...] - Last Documented On 06/01/2023 10:17AM ; [facility] Future Appointments Date Time Location Provi jewel Office Visit 03/14/2024 8:15AM IMSharmila Monzon [address] Ramakrishna Bennett MD Last Documented On 4 1:03PM ; [facility] Education and Decision Aids were [...] 05/25/2023 Last Documented On 4 9:55AM ; [facility] Medical History Includes: Medical History addressed during this encounter No Medical History Recorded Family History Includes: Family History addressed during this encounter Description Last Updated Paternal history of father 06/08 Last Documented On 4 9:55AM ; [facility] Maternal history of mother is alive 05/10 Last Documented On 4 9:55AM ; [facility] Review of Systems Includes: Review of Systems [...] Time Diagnosis Post-Op Visit Ramakrishna Bennett MD [facility] [place] [facility] 06/01/19 24 9:52AM 10:14AM Insurance Includes: Active Insurance Policies Plan Name Member ID Group # Subscriber Relationship Effect lanre Dates 1 - [employer] Medicare Advantage HMO/POS/PPO - [place] [id number] Tree Lantigua Self 06/27/2023 - Unknown Clinical Notes Includes: Clinical Notes from this encounter * Progress note Date Encounter Last Documented by 06/01/2023 Post-Op Visit Last documented on 06/01/2023; 10:17 AM, Ramakrishna Bennett MD; [facility] Chief Complaint The Chief Complaint is: Post [...]
--- OUTSIDE RECORDS SUMMARY | 2024-01-25 00:31 | XMS_ITS | Encounter Summary ---
Author Organization [facility] [place] [address] Care Team Providers Care Materials Tech Name Role Phone Christiana Moore APRN Primary Care Provider [phone] Encounter Details Date Type Department Care Team [...] PM EDT Office [place] [address] Manjula Kitchen MD [facility] [place] [address] documented as of this encounter Visit Diagnoses Not on filedocumented in this encounter Care Teams Materials Tech Relationship Specialty Start Date End Date Christiana Moore APRN [address] [place] [address] PCP - General Family Medicine 09/26/19 documented as of this encounter
--- OUTSIDE RECORDS SUMMARY | 2024-01-25 00:31 | XMS_ITS | Encounter Summary ---
Author Organization [facility] [place] [address] Care Team Providers Care Workforce Management Consultant Name Role Phone Christiana Moore [employer] Primary Care Provider [phone] Encounter Details Date Type Department Care Team (Late st Contact Info) Description 03/14/2023 Telephone [place] [address] Tim Mcginnis Social History Tobacco [...] PM EDT Office [place] [id number] Manjula Kitchen MD [facility] [place] [address] documented as of this encounter Visit Diagnoses Not on filedocumented in this encounter Care Teams Workforce Management Consultant Relationship Specialty Start Date End Date Christiana Moore APRN [address] [place] [address] PCP - General Family Medicine 09/26/19 documented as of this encounter
--- OUTSIDE RECORDS SUMMARY | 2024-01-25 00:31 | XMS_ITS | Encounter Summary ---
Author Organization [facility] [place] [address] Care Team Providers Care Veterinary Anatomist Name Role Phone Christiana Moore APRN Primary Care Provider [phone] Encounter Details Date Type Department Care Team [...] PM EDT Office [place] [address] Manjula Kitchen MD [facility] [address] [place] [address] documented as of this encounter Visit Diagnoses Not on filedocumented in this encounter Care Teams Veterinary Anatomist Relationship Specialty Start Date End Date Christiana Moore APRN [address] [place] [address] PCP - General Family Medicine 09/26/19 documented as of this encounter
--- OUTSIDE RECORDS SUMMARY | 2024-01-25 00:31 | XMS_ITS ---
Author Organization [facility] [place] [address] Care Team Providers Care Railroad Detective Name Role Phone Christiana Moore APRN Primary Care Provider [phone] Active Problems Patient Care Coordination No te Formatting of this note migh t be different from the original. [facility] 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 Past Plans No past plan information found. Radiation Treatments * No radiation treatments are documented for this patient in [facility]. Treatments may have been administered in another system. Lifetime Dose Tracking * Chemical Lifetime Dose Automatic Entry Manual Entr y DLP (Dose Length Product) 372 mGy-cm 372 mGy-cm 0 mGy-cm CTDI (CT Dose Index) Min 10.4 mGy 10.4 mGy 0 m Gy CTDI (CT Dose Index) Max 10.4 mGy 10.4 mGy 0 m Gy
--- OUTSIDE RECORDS SUMMARY | 2024-01-25 00:31 | XMS_ITS | Encounter Summary ---
Author Organization [facility] [place] [address] Care Team Providers Care Squeak Rattle And Leak Repairer Name Role Phone Christiana Moore RYAN Primary Care Provider [phone] Reason for Referral * Diagnostic Test (STAT) - Closed Specialty Diagnoses / Procedures Referred By Contac t Referred To Contact Radiology Diagnoses Chest wall abscess Procedures CT Chest w Contrast Todd Alvarez, PA [facility] [place] [address] [facility] [place] [address] Referral ID Status Reason Start Date Expiration Date V isits Requested Visits Authorized [id number] Closed Specialty Service Requested 03/14/2023 09/12/2024 1 1 Reason for Visit * Auth/Cert Specialty Diagnoses / Procedures Referred By Contac t Referred To Contact Diagnoses Complicated wound infection Procedures ER MICAELAI Quentin Carlin MD [facility] [place] [address] [facility] Referral ID Status Reason Start Date Expiration Date Visits Re quested Visits Authorized [id number] 1 1 Encounter Details Date Type Department Care Team (Latest Contact Info) Description 03/14/2023 3:04 PM EST - 03/14/2023 11:59 PM EST Hospital [place] [address] Quentin Carlin MD [facility] [place] [address] Chest wall abscess Discharge Disposition: Home Social [...] PM EDT Office [place] [address] Manjula Kitchen MD [facility] [place] [address] documented as of this encounter Procedures Procedure [...] have questions please contact the health childcare provider that requested your imaging first. ? Narrative [...] patients who have questions please contactthe health childcare provider that requested your imaging first. Quentin Cariln MD IMG CT ORDERABLES documented in this [...] mLs documented in this encounter Care Teams Squeak Rattle And Leak Repairer Relationship Specialty Start Date End Date Christiana Moore APRN [address] [place] [address] PCP - General Family Medicine 09/26/19 documented as of this encounter
--- OUTSIDE RECORDS SUMMARY | 2024-01-25 00:31 | XMS_ITS | Encounter Summary ---
Author Organization [facility] [place] [address] Care Team Providers Care Straight Pin Making Machine Operator Name Role Phone Michael Moorey RYAN Primary Care Provider [phone] Reason for Referral * Home Health Care (Routine) - Closed Specialty Diagnoses / Procedures Referred By Contac t Referred To Contact Diagnoses Chest wall abscess Piyush Hobbs MD [facility] [place] [address] [facility] & [address] [place] [address] Referral ID Status Reason Start Date Expiration Date V isits Requested Visits Authorized [id number] Closed Consult, Test & Treat 03/20/2023 09/16/2023 999 999 Reason for Visit * Reason Comments Wound Check * Auth/Cert Specialty Diagnoses / Procedures Referred By Contac t Referred To Contact Diagnoses Complicated wound infection Procedures ER IPI Jose Alvarez MD [facility] [place] [address] [facility] Referral ID Status Reason Start Date Expiration Date Visits Re quested Visits Authorized [id number] 1 1 Encounter Details Date Type Department Care Team (Latest Contact Info) Description 03/17/2023 10:11 AM EST - 03/20/2023 12:20 PM EST Hospital Encounter Surgical Unit Level 4 [place] [address] Jose Alvarez MD [facility] [place] [address] Complicated wound infection (Primary Dx); [...] Hospital Course: Tree Lantigua was admitted to [facility] on 03/17/2023 via the ED where [...] a nurse in the Thoracic Clinic at [phone]. For emergencies after hours, on weekends or holidays please call: [phone] and ask to speak to the Thoracic Surgeon 1st pressman on web press. Exercise & Activity Level: As you recover [...] please call the thoracic surgery clinic at [phone]. Driving: No driving for 1 week or [...] Thoracic Surgery Clinic or the Thoracic Surgeon 1st pressman on web press after hours. Please take over the counter [...] Center 03/20/2023 9:30 AM [address] [facility] THOR [address] [facility] General Instructions None Future Appointments and Orders Future Orders Complete By Expires Referral to Home Health [REF34 Custom] As directed Process Instructions: If no progress note charted, please enter Clinical details in comments. Scheduling Instructions: Comments: Please evaluate Tree Lantigua for admission to Home Health. [address] [facility] [address] (home) Date of : 1955 Inpatient DOCUMENTATION FOR VNA SERVICES (INCLUDING THOSE PATIENTS WITH MEDICARE COVERAGE REQUIRING HOME VNA SERVICES AND/OR HOSPICE SERVICES) PATIENT'S LOCATION: [address] [facility] [id number] (home) Cell: Telephone Information: In discussion with the attending physician, it is certified that this patient is under their care and that they, or a Nurse Practitioner, Clinical Nurse specialist or Physician Training And Development Rep who is working directly with them, had [...] saline and medipore HOME HEALTH CARE AGENCY: [facility]. [address] [place] [id number] START OF CARE: within 24-48 hours of [...] this patient's PCP: Christiana Moore APRN BOX [facility] [phone] . All A agencies which cover the area of patient's residence have been reviewed, either verbally carmel writing, and patient/family have chosen the home health care agency noted. Questions: Disciplines Requested: Nursing Physical Therapy Provider Contact Information: Primary Care Provider: Christiana Moore APRN [phone] Discharge References/Attachments: Discharge References/Attachments None For questions regarding this document or issues relating to this hospitalization on the Thoracic Surgery Service, please contact Dr. Alvarez's office at . Signed: Monique Del Angel MD 03/20/2023 Thoracic Surgery [facility] PCP: Christiana Moore APRN Referring: Jose Alvarez MD [facility] [place] [address] documented in this encounter Discharge Instructions * [...] a nurse in the Thoracic Clinic at [phone]. For emergencies after hours, on weekends or holidays please call: [phone] and ask to speak to the Thoracic Surgeon 1st pressman on web press. Exercise & Activity Level: As you recover [...] please call the thoracic surgery clinic at [phone]. Driving: No driving for 1 week or [...] Thoracic Surgery Clinic or the Thoracic Surgeon 1st pressman on web press after hours. Please take over the counter [...] Center 03/20/2023 9:30 AM Jose Alvarez MD [address] documented in this encounter Medications at [...] from the original note were not included. [facility] Department of Thoracic Surgery Progress Note Patient Name: Tree Lantigua Patient : 1955 Patient Patient Location: [address] [place] [address] Attending Surgeon: JOSE ALVAREZ Reason for Visit: [...] Surgical Unit Level 4 Wing D at [facility] Office Visit from 03/14/[address]23 [address] Surgery [address] [facility] Weight 79.4 kg (175 lb) 1 03/17/2023 [...] Body Fluid Culture, Aerobic & Anaerobic Fluid [[id number]] (Abnormal) Collected: 03/17/231144 Lab Status: Preliminary result Specimen: Fluid Updated: 03/18/23939 Body Fluid Culture, Aerobic [[id number]] (Abnormal) Collected: 03/17/231144 Lab Status: Preliminary result [...] Rodriguez MD 03/19/2023 Thoracic Surgery Service Pager [phone] * Leta Kincaid MD - 03/18/2023 12:54 [...] Ext: SCDs in place, WWP AP Tree Lantiuga is a 67 y.o. male s/p I&D [...] airway distress, lungs are clear. NSR on proof sorter. 0915: Updates given to [facility] RN July. Phase 2 criteria met. * Todd Alvarez PA - 03/18/2023 7:41 AM EST Images from the original note were not included. [facility] Department of Thoracic Surgery Progress Note Patient Name: Tree Lantigua Patient : 1955 Patient Patient Location: [address] [place] [address]- Attending Surgeon: JOSE ALVAREZ Reason for Visit: [...] Surgical Unit Level 4 Wing D at [facility] Office Visit from 03/14/[address] [facility] Weight 79.4 kg (175 lb) 1 03/17/2023 [...] questions please contact the health critical care unit nurse that requested your imaging first. Electronically signed by: Jing Hudson MD, [facility] ([phone]), at 03/14/2023 5:36 PM Micro: Microbiology Results (last 7 days) Procedure Component Value - Date/Time Body Fluid Culture, Aerobic & Anaerobic Fluid [[id number]] (Abnormal) Collected: 03/17/231144 Lab Status: Preliminary result Specimen: Fluid Updated: 03/17/231334 Body Fluid Culture, Aerobic [[id number]] (Abnormal) Collected: 03/17/231144 Lab Status: Preliminary result [...] Renal/: voiding spontaneously, monitor UOP Heme: SQH 1st pressman on web press to OR then TID ID: will d/c vanc, continue zosyn for time being, f/u micro results, will need PM dsg change Endo: LONI Other: LONI PPx: SQH, SCDs, IS/cough/deep breathe Dispo: Floor status, L4WD All plans formulated in discussion with and directed by attending thoracic surgeon Dr. Alvarez. SOCRATES Rao 03/18/2023 Thoracic Surgery Service Pager [phone] documented in this encounter H&P Notes * Dimitry Rodriguez MD - 03/17/2023 12:39 PM EST Images from the original note were not included. [facility] Department of Thoracic Surgery History & Phisical [...] 2.78) performed by Jose Alvarez MD at [facility] MAIN OR PRO DEBRIDEMENT MUSCLE AND FASCIA 20 SQ CM/< Right 12/09/2019 DEBRIDEMENT SKIN, SUBCU, MUSCLE, THORAX (WRVU 2.7) performed by Michael Li MD at [facility] MAIN OR [facility] I&D HEMATOMA SEROMA/FLUID COLLECTION Right 11/09/2019 INCISION & DRAINAGE HEMATOMA, SEROMA OR FLD. COLLECTION, CHEST (WRVU 1.58) performed by Piyush Hobbs MD at [facility] MAIN OR PRO INCISION AND DRAINAGE COMPLEX POST OPERATIVE WOUND INFECTION Right 12/09/2019 INCISION & DRAINAGE COMPLEX POSTOPERATIVE WOUND INFECTION (WRVU 2.3) performed by Michael Li MD at [facility] MAIN OR [facility] INJECTION ANES AGENT &/ STEROID INTERCOSTAL NERVE EA ADDL LEVEL Right 10/24/2019 NERVE BLOCK, INTERCOSTAL NERVE, MULTIPLE (WRVU 1.68) performed by Jose Alvarez MD at [facility] MAIN OR [facility] THORACOSCOPY WITH BIOPSY OF PLEURA Right 10/24/2019 THORACOSCOPY; WITH BIOPSY(IES) OF PLEURA (WRVU 4.58) performed by Jose Alvarez MD at [facility] MAIN OR [facility] THORACOTOMY WITH THERAPEUTIC WEDGE RESECTION EA ADDL Right 10/24/2019 @THORACOTOMY; W/THERAPEUTIC WEDGE RESECTION, EA ADD'L RESC, IPSILATERAL (WRVU 3) performed by Jose Alvarez MD at [facility] MAIN OR [facility] THORACOTOMY WITH THERAPEUTIC WEDGE RESECTION INITIAL Right 10/24/2019 @THORACOTOMY; W/ THERAPEUTIC WEDGE RESECTION , INITIAL (WRVU 15.75) performed by Jose Alvarez MD at [facility] OR PRO THYMECTOMY, RADICAL MEDIAST DISSSEC Right 10/24/2019 @THYMECTOMY W/ RAD. MEDIASTINAL DISSECTION (WRVU 23.48) performed by Jose Alvarez MD at [facility] OR ROS: Full 12-Point ROS reviewed and negative except noted in HPI Vitals: Temp: [36.9 ??C (98.4 ??F)] Heart Rate: [94-101] Resp: [16] BP: (129-154)/(83-94) SpO2: [97 %-99 %] Heart Rate from SpO2: [94 bpm] Wt & BMI By Encounter Date Flowsheet Row ED from 03/17/2023 in Emergency Department [facility] Office Visit from 03/14/[address]23 [address] [facility] Weight 79.4 kg (175 lb) 1 03/17/2023 [...] questions please contact the health critical care unit nurse that requested your imaging first. Electronically signed by: Jing Hudson MD, [facility] ([phone]), at 03/14/2023 5:36 PM Micro: Microbiology Results (last 7 days) Procedure Component Value - Date/Time Body Fluid Culture, Aerobic & Anaerobic Fluid [[id number]] (Abnormal) Collected: 03/17/231144 Lab Status: Preliminary result Specimen: Fluid Updated: 03/17/231334 Body Fluid Culture, Aerobic [[id number]] (Abnormal) Collected: 03/17/231144 Lab Status: Preliminary result [...] Rodriguez MD 03/17/2023 Thoracic Surgery Service Pager [phone] PROCEDURE NOTE: INCISION & DRAINAGE After obtaining [...] Component Value Date COVID19 Not Detected 10/21/2019 [id number] Not Detected 12/08/2019 Past medical History: No past medical history on file. Hospitalizations Within the Past 30 Days: no previous admission in last 30 days Current Decision-Making Capacity: Self If AD's have not been completed the following surrogate would be surrogate decision maker per ID surrogate decision making law. (Only good for 180 days) Any patient receiving care in [place] must abide by ID law. The hierarchy for surrogate decision making [...] (i) The agent with financial power of deputy prosecuting attorney or a conservator appointed in [...] Current DME: none Home Address confirmed as: [address] [place] [phone] Social & Family Supports: All names listed below confirmed with patient as current and correct Extended Emergency Contact Information Primary Emergency Contact: Lillian Tyson Address: [address] [place] [address] of [facility] Mobile Relation: Spouse Current Care Provided [...] N/A ; Prescription Coverage: Yes Preferred Pharmacy: [id number] - [place], [place] - [address] [facility] [address] [facility] [address] [facility] [address] [place], [place] [address] [facility] [address] [facility] [address] [facility] [address] [facility] [address] - [place], [place] - [address] [facility] [address] [facility] [address] [place] Status: Patient is a : No Primary Care Provider confirmed: Christiana Moore APRN [phone] Patient/Caregiver Goals of Treatment: discharge home Potential Needs for Transition of Care: home health care Agency Referrals: I have met with the patient to: discuss discharge planning needs. provide the [facility], Office of Care Management letter from the Bilingual Student Tutor pertaining to rehab referrals. provide a letter describing our affiliations within the [facility] and educate about their right to choose where referrals are sent. provide a list of Home Health Agencies / Durable Medical Equipment vendors which serve their preferred geographic area. provided patient with [facility] Star Quality Rating handout. They have requested referrals to: [facility] [address] [place] [address] KATELYN: 03/20/2023 Note routed to a Auto Job Estimator who will communicate referrals to facilities and [...] of care planning. Angela Rock RN-BSN-CM Pager: [phone] * Plan of Care - Cindy Bonilla [...] Operative Note Patient Name: Tree Lantigua : [id number] MR#: [id number] Case Date: 03/18/2023 Surgeon: Surgeon(s) and Role: [...] Alvarez MD - 03/18/2023 8:[address] [facility] Operative Note Patient Name: Tree Lantigua : [id number] MR#: [id number] Case Date: 03/18/2023 Surgeon: Surgeon(s) and Role: [...] PM EDT Office [place] [address] Manjula Kitchen MD [facility] [place] [address] Scheduled Referrals Name Type Priority Associated Diagnoses Orde r Schedule Referral to Home Health Outpatient Referral Routine Chest wall abscess Ordered: 03/20/2023 documented as of this encounter Procedures Procedure Name Priority Date/Time Associated Diagnosis Comments SPECIMEN TO PATHOLOGY Routine 03/18/2023 8:21 AM EST SURGICAL PATHOLOGY REPORT Routine 03/18/2023 8:20 AM EST I&D Hematoma Seroma/Fluid Collection ([id number]) 03/18/2023 7:55 AM EST abscess old thoracotomy [...] AM EST 03/18/2023 8:[address] [facility] - 03/18/2023 8:21 AM EST Specimen requisition ordered. ??Separate Pathology report to follow Jose Alvarez MD PATHOLOGY/CYTOLOGY O BENJI [facility] [place] [id number] * Surgical Pathology Report (03/18/2023 8:20 AM EST) Final Diagnosis [id number] ? Location: WD; [facility]; A The signing pathologist has (i) examined the relevant preparation(s) for the specimen(s) and (ii) rendered or confirmed the diagnosis(es). . ?Surgical Pathology DIAGNOSIS A - Skin and soft tissue, right posterior chest wall, debridement: - Skin with scar and underlying granulation tissue with acute and chronic inflammation. Electronically signed by: ?Helen Garcia MD Verified: ??03/26/2023 10:34 ??Pathologist Performed at: ??-[facility] Dept. of Pathology, [place] [address] Bilingual Student Tutor: Tunde Smyth MD, FCAP, ??CLIA Certificate: [id number] SPECIMEN(S) SUBMITTED A - Skin and soft tissue, right posterior chest wall, debridement (1) CLINICAL INFORMATION Abscess old thoracotomy wound SPECIMEN PROCESSING A - Labeled/Fixative : Debridement right posterior chest wall, fresh. Quantity/Size: Single, 5.2 x 2.3 x 1.0 cm. Tissue Description: Grossman-bean, wrinkled skin ellipse with underlying bean, dull and rubbery subcutaneous tissue. Sections/Process ing: Check Processor sections in 1 cassette labeled A1. ??jnr 03/26/2023 10:34 AM EST [facility] SPECIMEN FROM UNSPECIFIED BODY SITE / Unknown 03/18/2023 8:20 AM EST 03/18/2023 8:20 AM EST Jose Alvarez MD PATHOLOGY/CYTOLOGY O RDERABLES Performing Organization Address City/[facility]/ZIP Co de Phone Number [facility] [place] [address] [facility] [place] [address] * (ABNORMAL) Body Fluid Culture, Aerobic (03/17/2023 11:45 AM EST) Body Fluid Culture Many Staphylococcus aureus(A) [facility] Gram Stain Many Neutrophils seen Many Gram Positive Cocci seen (A) [facility] Organism Staphylococcus aureus(A) [facility] Organism Gram Positive Cocci(A) [facility] Fluid 03/17/2023 11:4 5 AM EST 03/17/2023 12:46 PM EST Comment:Abscess Narrative Resulting Agency Comment Spec In Lab Organism Antibiotic Method Susceptibility Staphylococcus aureus Clindamycin VITEK 2 METHOD Sensitive Staphylococcus aureus Erythromycin VITEK 2 METHOD Sensitive Staphylococcus aureus Gentamicin VITEK 2 METHOD Sensitive Comment:Gentamicin i s not appropriate for Cherokee-therapy. Staphylococcus aureus Oxacillin VITEK 2 METHOD Sensitive [...] Performing Organization Address City/[facility]/ZIP Co de Phone Number [facility] [place] [address] * L-Lactate2 Whole Blood (03/17/2023 11:13 AM EST) Lactate WB 1.5 0.5 - 2.2 mmol/L [facility] Blood 03/17/2023 11:1 3 AM EST 03/17/2023 11:13 AM EST Jose Alvarez MD CHEMISTRY ORDERABLES [facility] [place] [address] * Differential, Automated (03/17/2023 11:06 AM EST) Pathologist [facility] Neutrophil % 74.9 % [facility] Neutrophil Absolute 5.59 1.70 - 6.10 x10(3)/[facility] Lymph % 15.7 % [facility] Lymphocytes Abs 1.2 0.9 - 3.2 x10(3)/[facility] Monocyte % 7.9 % [facility] Monocyte Abs 0.6 0.3 - 0.9 x10(3)/[facility] Eos % 0.3 % [facility] Eosinophils Abs 0.0 0.0 - 0.4 x10(3)/[facility] Basophil % 0.8 % [facility] Baso Absolute 0.1 0.0 - 0.1 x10(3)/[facility] Immature Gran % 0.40 % [facility] Comment: Immature granulocytes(IG's)percentage and absolute count will include metamyelocytes, myelocytes, and promyelocytes. Blood smears from CBCs yielding IG's will be scanned manually for concordance. If this scan disagrees with the automated IG or if promyelocytes are noted, a manual differential will be performed. Immature Gran Absolute 0.03 0.00 - 0.04 x10(3)/[facility] Blood 03/17/2023 11:0 6 AM EST 03/17/2023 11:14 AM EST Narrative Resulting Agency Comment Spec In Lab Becca Tovar MD HEMATOLOGY ORDERABLE S [facility] [place] [address] * (ABNORMAL) Hemogram (03/17/2023 11:06 AM EST) White Blood Cell 7.5 4.0 - 9.5 x10(3)/ L [facility] Red Blood Cell 6.86(H) 4.58 - 5.54 x10(6)/mc L [facility] Hemoglobin 13.9 13.7 - 16.5 g/dL [facility] Hematocrit 46.0 40.5 - 48.5 % [facility] Mean Cell Volume 67.1(L) 82.9 - 93.1 fL [facility] Mean Cell Hemoglobin 20.3(L) 27.5 - 32.1 pg [facility] Mean Cell Hemoglobin Concentration 30.2(L) 32.0 - 35.7 g/dL [facility] Platelet 302 145 - 357 x10(3)/mc L [facility] RDW Standard Deviation 37.2 36.0 - 45.0 fL [facility] RDW coefficient of variation 17.3(H) 11.4 - 13.8 % [facility] Mean Platelet Volume 9.8 7.6 - 12.9 fL [facility] NRBC% auto 0.0 % [facility] NRBC Absolute 0.000 0.000 - 0.000 x10(3)/ L [facility] Blood 03/17/2023 11:0 6 AM EST 03/17/2023 11:14 AM EST Narrative Resulting Agency Comment Spec In Lab Becca Tovar MD HEMATOLOGY ORDERABLE S Performing Organization Address City/[facility]/ZIP Co de Phone Number [facility] [place] [address] * (ABNORMAL) Sedimentation rate (03/17/2023 11:06 AM EST) Sedimentation Rate Automated >119(H) 2 - 37 mm/hr [facility] Comment: Effective March 19, 2019 new capillary photometric technology has resulted in a change in reference ranges. It is recommended that each ESR result be reviewed with its own age appropriate reference range. Blood 03/17/2023 11:0 6 AM EST 03/17/2023 11:14 AM EST Narrative Resulting Agency Comment Spec In Lab Jose Alvarez MD HEMATOLOGY ORDERABLE S Performing Organization Address City/[facility] Co de Phone Number [facility] [place] [address] * (ABNORMAL) CRP, acute inflammation (03/17/2023 11:06 AM EST) C-Reactive Protein 112.8(H) <=4.9 mg/L [facility] Blood 03/17/2023 11:0 6 AM EST 03/17/2023 11:14 AM EST Narrative Resulting Agency Comment Spec In Lab Jose Alvarez MD CHEMISTRY ORDERABLES Performing Organization Address [facility] Co de Phone Number [facility] [place] [address] * Basic Metabolic Panel (non-fasting) (03/17/2023 11:06 AM EST) Glucose 93 65 - 199 mg/dL [facility] Comment:Diabetes: >=200 mg/d L plus symptoms Blood Urea Nitrogen 12 10 - 20 mg/dL [facility] Creatinine 0.99 0.80 - 1.50 mg/dL [facility] Sodium 136 135 - 145 mmol/L [facility] Potassium 4.3 3.5 - 5.0 mmol/L [facility] Comment: Please note: ??Patients with WBC >100,000 may have falsely elevated Potassium levels. ??For accurate Potassium quantification in these patients send serum separator tube (gold top) for subsequent determinations. ??Contact the Clinical Chemistry Laboratory if there are any questions. Chloride 100 98 - 107 mmol/L [facility] Carbon Dioxide 22 22 - 31 mmol/L [facility] Anion Gap 14 5 - 15 mmol/L [facility] Calcium 9.5 8.5 - 10.5 mg/dL [facility] Est Glomerular Filtration Rate 83 >=60 mL/min/1. 73 m?? [facility] Comment: This patient's estimated [...] In Lab Jose Alvarez MD CHEMISTRY ORDERABLES [facility] [place] [address] documented in this encounter Visit Diagnoses Diagnosis [...] injection 5,000 Units (COMPLETED) 5,000 Units, Subcutaneous, FOOD PREPARATION SUPERVISOR TO O.R., 1 dose, On 03/18/23 at 0830, Please administer 1st pressman on web press to OR, prior to procedure, thank you, [...] an associated drug lab level. Please see [facility] for scheduled level. Warning Vesicant/Irritant Medication , [...] Routine documented in this encounter Care Teams Straight Pin Making Machine Operator Relationship Specialty Start Date End Date Christiana Moore APRN [address] [place] [address] PCP - General Family Medicine 09/26/19 documented as of this encounter
--- OUTSIDE RECORDS SUMMARY | 2024-01-25 00:31 | XMS_ITS | Encounter Summary ---
Author Organization [facility] [place] [address] Care Team Providers Care Hat Measurer Name Role Phone Oscar Christiana DAVIS Primary Care Provider [phone] Reason for Visit * Reason Comments Follow-up Wound Infection Wound Check Encounter Details Date Type Department Care Team (Late st Contact Info) Description 04/03/2023 10:00 AM EST Office Visit [place] [address] Jose Alvarez MD [facility] [place] [address] Complicated wound infection; Open wound of right [...] Follow Up Note MD Belle Nance PA-C [place], [place] [address] FAX: Pre Op Dx: Mediastinal Mass Post [...] be helpful. 2. They will be in [place] until August 2023 and they will come back at that point to see us for a wound check.. 3. CT chest in 1 year from his scan in March. 4. Call with any questions. If the wound isn't healing as expected, then we will need to find a wound care team in [place] to see the patient. Patient seen and [...] PM EDT Office [place] [address] Manjula Kitchen MD [facility] [address] documented as of this encounter Visit Diagnoses Diagnosis Complicated wound infection Open wound of right chest wall with complication, subsequent encounter documented in this encounter Care Teams Hat Measurer Relationship Specialty Start Date End Date Christiana Moore APRN [address] [place] [address] PCP - General Family Medicine 09/26/19 documented as of this encounter
--- OUTSIDE RECORDS SUMMARY | 2024-01-25 00:31 | XMS_ITS | Clinical Summary ---
Author Organization [facility] [place] [address] Care Team Providers Care Research Anthropologist Name Role Phone Christiana Moore APRN Primary Care Provider [phone] Allergies Active Allergy Reactions Criticality Noted Date [...] migh t be different from the original. [facility] Agency [facility]. 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 Encounters Date Type Department Care Team Description 11/12/2023 Transcribe Orders eD Incoming Referrals [phone] Christiana Moore APRN Diastasis recti from Last [...] PM EDT Office Visit [place] [address] Manjula Kitchen MD [facility] [place] [address] Health Maintenance Due Date Last Done Comments [...] EST) Glucose 93 65 - 199 mg/dL [facility] Comment:Diabetes: >=200 mg/d L plus symptoms Blood Urea Nitrogen 12 10 - 20 mg/dL [facility] Creatinine 0.99 0.80 - 1.50 mg/dL [facility] Sodium 136 135 - 145 mmol/L [facility] Potassium 4.3 3.5 - 5.0 mmol/L [facility] Comment: Please note: ??Patients with WBC >100,000 may have falsely elevated Potassium levels. ??For accurate Potassium quantification in these patients send serum separator tube (gold top) for subsequent determinations. ??Contact the Clinical Chemistry Laboratory if there are any questions. Chloride 100 98 - 107 mmol/L [facility] Carbon Dioxide 22 22 - 31 mmol/L [facility] Anion Gap 14 5 - 15 mmol/L [facility] Calcium 9.5 8.5 - 10.5 mg/dL [facility] Est Glomerular Filtration Rate 83 >=60 mL/min/1. 73 m?? [facility] Comment: This patient's estimated GFR [...] Narrative Resulting Agency Comment Spec In Lab Qunetin Carlin MD CHEMISTRY ORDERABLES [facility] [place] [address] from Last 3 Months or Most Recently [...] capacity to make decision: Yes Care Teams Research Anthropologist Relationship Specialty Start Date End Date Christiana Moore APRN [address] [place] [address] PCP - General Family Medicine 09/26/19
--- OUTSIDE RECORDS SUMMARY | 2024-01-25 00:31 | XMS_ITS | Encounter Summary ---
[place] [address] Care Team Providers Care Video Player Mechanic Name Role Phone Christiana Moore APRN Primary Care Provider [phone] Reason for Referral * Consultation (Routine) - Authorized Specialty Diagnoses / Procedures Referred By Contac t Referred To Contact General Surgery Diagnoses Diastasis recti Christiana Moore APRN [address] [place] [address] [facility] [place] Surgery [address] [address] Referral ID Status Reason Start Date Expiration Date Visits Requested Visits Authorized [id number] Authorized Consult, Test & Treat 11/12/2023 11/11/2024 1 1 Encounter Details Date Type Department Care Team (Late st Contact Info) Description 11/12/2023 Transcribe Orders eDH Incoming Referrals [phone] Christiana Moore APRN [address] [place] [address] Diastasis recti Social History Tobacco [...] PM EDT Office [place] [address] Manjula Kitchen MD [facility] [place] [address] Scheduled Referrals Name Type Priority Associated Diagnoses Orde r Schedule Referral to General Surgery Outpatient Referral Routine Diastasis recti Ordered: 11/12/2023 documented as of this encounter Visit Diagnoses Diagnosis Diastasis recti Diastasis of muscle documented in this encounter Care Teams Video Player Mechanic Relationship Specialty Start Date End Date Christiana Moore APRN [address] [place] [address] PCP - General Family Medicine 09/26/19 documented as of this encounter
--- OUTSIDE RECORDS SUMMARY | 2024-01-25 00:31 | XMS_ITS | Encounter Summary ---
[place] [address] Care Team Providers Care Branch Sales Manager Name Role Phone Christiana Moore RYAN Primary Care Provider [phone] Encounter Details Date Type Department Care Team (Late st Contact Info) Description 07/10/2023 Telephone [place] [id number] Tim Mcginnis Social History Tobacco Use Types [...] ----- Caller name: Self Call back number: [phone] Reason for call: Patient is requesting a call back from the office to schedule an appointment. Please call to advise. documented in this encounter Plan of Treatment Upcoming Encounters Date Type Department Care Team (Late st Contact Info) Description 02/08/2024 1:00 PM EDT Office [place] [address] Manjula Kitchen MD [facility] [place] [address] documented as of this encounter Visit Diagnoses Not on filedocumented in this encounter Care Teams Branch Sales Manager Relationship Specialty Start Date End Date Christiana Moore APRN [address] [place] [address] PCP - General Family Medicine 09/26/19 documented as of this encounter
--- OUTSIDE RECORDS SUMMARY | 2024-01-25 00:31 | XMS_ITS | Encounter Summary ---
Author Organization [facility] [place] [address] Care Team Providers Care Stem Setter Name Role Phone Oscar Christiana RYAN Primary Care Provider [phone] Reason for Visit * Reason Comments Wound Check * Auth/Cert Specialty Diagnoses / Procedures Referred By Contac t Referred To Contact Diagnoses Complicated wound infection Procedures ER IPI Jose Alvarez MD [facility] [place] [address] [facility] Referral ID Status Reason Start Date Expiration Date Visits Re quested Visits Authorized [id number] 1 1 Encounter Details Date Type Department Care Team (Late st Contact Info) Description 03/18/2023 8:00 AM EST - 03/18/2023 9:48 AM EST [place] [address] Jose Alvarez MD [facility] [place] [address] INCISION & DRAINAGE HEMATOMA, SEROMA OR FLD. [...] Course: Tree Lantigua was admitted to [facility] on 03/17/2023 via the ED where [...] a nurse in the Thoracic Clinic at [phone]. For emergencies after hours, on weekends or holidays please call: [phone] and ask to speak to the Thoracic Surgeon avionics systems engineer. Exercise & Activity Level: As you recover [...] please call the thoracic surgery clinic at [phone]. Driving: No driving for 1 week or [...] Thoracic Surgery Clinic or the Thoracic Surgeon avionics systems engineer after hours. Please take over the [...] 9:30 AM Jose Alvarez MD [facility] THOR 3K [facility] General Instructions None Future Appointments and Orders Future Orders Complete By Expires Referral to Home Health [[id number] Custom] As directed Process Instructions: If no progress note charted, please enter Clinical details in comments. Scheduling Instructions: Comments: Please evaluate Tree Lantigua for admission to Home Health. [address] [facility] [address] (home) Date of : 1955 Inpatient DOCUMENTATION FOR VNA SERVICES (INCLUDING THOSE PATIENTS WITH MEDICARE COVERAGE REQUIRING HOME VNA SERVICES AND/OR HOSPICE SERVICES) PATIENT'S LOCATION: Tree Lantigua [address] [facility] [phone] (home) Cell: Telephone Information: In discussion with the attending physician, it is certified that this patient is under their care and that they, or a Nurse Practitioner, Clinical Nurse specialist or Physician Picture Hanger who is working directly with them, had [...] saline and medipore HOME HEALTH CARE AGENCY: [facility] [address] [place] [id number] START OF CARE: within 24-48 hours of [...] patient's PCP: Christiana Moore APRN [address] [facility] [address] . All VNA agencies which cover the area of patient's residence have been reviewed, either verbally carmel writing, and patient/family have chosen the home health care agency noted. Questions: Disciplines Requested: Nursing Physical Therapy Provider Contact Information: Primary Care Provider: Christiana Moore APRN [phone] Discharge References/Attachments: Discharge References/Attachments None For questions regarding this document or issues relating to this hospitalization on the Thoracic Surgery Service, please contact Dr. Alvarez's office at . Signed: Monique Del Angel MD 03/20/2023 Thoracic Surgery [facility] PCP: Christiana Moore APRN Referring: Jose Alvarez MD [facility] [place] [address] documented in this encounter Discharge Instructions * [...] a nurse in the Thoracic Clinic at [phone]. For emergencies after hours, on weekends or holidays please call: [phone] and ask to speak to the Thoracic Surgeon avionics systems engineer. Exercise & Activity Level: As you recover [...] please call the thoracic surgery clinic at [phone]. Driving: No driving for 1 week or [...] Thoracic Surgery Clinic or the Thoracic Surgeon avionics systems engineer after hours. Please take over the [...] Center 03/20/2023 9:30 AM Jose Alvarez MD [address] documented in this encounter Medications at [...] from the original note were not included. [facility] Department of Thoracic Surgery Progress Note Patient Name: Tree Lantigua Patient : 1955 Patient Patient Location: [address] [place] [address] Attending Surgeon: JOSE ALVAREZ Reason for Visit: [...] Surgical Unit Level 4 Wing D at [facility] Office Visit from 03/14/2023 in Thoracic Surgery at [facility] Weight 79.4 kg (175 lb) 1 03/17/2023 [...] Body Fluid Culture, Aerobic & Anaerobic Fluid [[id number]] (Abnormal) Collected: 03/17/23 114 Lab Status: Preliminary result Specimen: Fluid Updated: 03/18/23939 Body Fluid Culture, Aerobic [[id number]] (Abnormal) Collected: 03/17/23 114 Lab Status: Preliminary [...] Rodriguez MD 03/19/2023 Thoracic Surgery Service Pager [phone] * Leta Kincaid MD - 03/18/2023 12:54 [...] distress, lungs are clear. NSR on cardiac nurse practitioner. 0915: Updates given to [facility] RN July. Phase 2 criteria met. * Todd Alvarez PA - 03/18/2023 7:41 AM EST Images from the original note were not included. [facility] Department of Thoracic Surgery Progress Note Patient Name: Tree Lantigua Patient : 1955 Patient Patient Location: [address] [place] [address] Attending Surgeon: JOSE ALVAREZ Reason for Visit: [...] Surgical Unit Level 4 Wing D at [facility] Office Visit from 03/14/2023 in Thoracic Surgery at [facility] Weight 79.4 kg (175 lb) 1 03/17/2023 [...] who have questions please contact the health college and career counselor that requested your imaging first. Micro: Microbiology Results (last 7 days) Procedure Component Value - Date/Time Body Fluid Culture, Aerobic & Anaerobic Fluid [[id number]] (Abnormal) Collected: 12/09/23 1145 Lab Status: Preliminary result Specimen: Fluid Updated: 03/17/231334 Body Fluid Culture, Aerobic [[id number]] (Abnormal) Collected: 03/17/23 114 Lab Status: Preliminary [...] Renal/: voiding spontaneously, monitor UOP Heme: SQH avionics systems engineer to OR then TID ID: will d/c vanc, continue zosyn for time being, f/u micro results, will need PM dsg change Endo: LONI Other: LONI PPx: SQH, SCDs, IS/cough/deep breathe Dispo: Floor status, L4WD All plans formulated in discussion with and directed by attending thoracic surgeon Dr. Alvarez. SOCRATES Rao 03/18/2023 Thoracic Surgery Service Pager [phone] documented in this encounter H&P Notes * Dimitry Rodriguez MD - 03/17/2023 12:39 PM EST Images from the original note were not included. [facility] Department of Thoracic Surgery History & [...] 2.78) performed by Jose Alvarez MD at [facility] MAIN OR PRO DEBRIDEMENT MUSCLE AND FASCIA 20 SQ CM/< Right 12/09/2019 DEBRIDEMENT SKIN, SUBCU, MUSCLE, THORAX (WRVU 2.7) performed by Michael Li MD at [facility] MAIN OR PRO I&D HEMATOMA SEROMA/FLUID COLLECTION Right 11/09/2019 INCISION & DRAINAGE HEMATOMA, SEROMA OR FLD. COLLECTION, CHEST (WRVU 1.58) performed by Piyush Hobbs MD at [facility] MAIN OR PRO INCISION AND DRAINAGE COMPLEX POST OPERATIVE WOUND INFECTION Right 12/09/2019 INCISION & DRAINAGE COMPLEX POSTOPERATIVE WOUND INFECTION (WRVU 2.3) performed by Michael Li MD at [facility] MAIN OR PRO INJECTION ANES AGENT &/ STEROID INTERCOSTAL NERVE EA ADDL LEVEL Right 10/24/2019 NERVE BLOCK, INTERCOSTAL NERVE, MULTIPLE (WRVU 1.68) performed by Jose Alvarez MD at [facility] MAIN OR PRO THORACOSCOPY WITH BIOPSY OF PLEURA Right 10/24/2019 THORACOSCOPY; WITH BIOPSY(IES) OF PLEURA (WRVU 4.58) performed by Jose Alvarez MD at [facility] MAIN OR PRO THORACOTOMY WITH THERAPEUTIC WEDGE RESECTION EA ADDL Right 10/24/2019 @THORACOTOMY; W/THERAPEUTIC WEDGE RESECTION, EA ADD'L RESC, IPSILATERAL (WRVU 3) performed by Jose Alvarez MD at [facility] MAIN OR PRO THORACOTOMY WITH THERAPEUTIC WEDGE RESECTION INITIAL Right 10/24/2019 @THORACOTOMY; W/ THERAPEUTIC WEDGE RESECTION , INITIAL (WRVU 15.75) performed by Jose Alvarez MD at [facility] MAIN OR PRO THYMECTOMY, RADICAL MEDIAST DISSSEC Right 10/24/2019 @THYMECTOMY W/ RAD. MEDIASTINAL DISSECTION (WRVU 23.48) performed by Jose Alvarez MD at [facility] MAIN OR ROS: Full 12-Point ROS reviewed and negative except noted in HPI Vitals: Temp: [36.9 ??C (98.4 ??F)] Heart Rate: [94-101] Resp: [16] BP: (129-154)/(83-94) SpO2: [97 %-99 %] Heart Rate from SpO2: [94 bpm] Wt & BMI By Encounter Date Flowsheet Row ED from 03/17/2023 in Emergency Department [facility] Office Visit from 03/14/2023 in Thoracic Surgery at [facility] Weight 79.4 kg (175 lb) 1 03/17/2023 [...] who have questions please contact the health college and career counselor that requested your imaging first. Micro: Microbiology Results (last 7 days) Procedure Component Value - Date/Time Body Fluid Culture, Aerobic & Anaerobic Fluid [[id number]] (Abnormal) Collected: 03/17/231144 Lab Status: Preliminary result Specimen: Fluid Updated: 03/17/231334 Body Fluid Culture, Aerobic [[id number]] (Abnormal) Collected: 03/17/231144 Lab Status: Preliminary result [...] Rodriguez MD 03/17/2023 Thoracic Surgery Service Pager [phone] PROCEDURE NOTE: INCISION & DRAINAGE After obtaining [...] Component Value Date COVID19 Not Detected 10/21/2019 [id number] Not Detected 12/08/2019 Past medical History: No past medical history on file. Hospitalizations Within the Past 30 Days: no previous admission in last 30 days Current Decision-Making Capacity: Self If AD's have not been completed the following surrogate would be surrogate decision maker per [place] surrogate decision making law. (Only good for 180 days) Any patient receiving care in [place] must abide by [place] law. The hierarchy for surrogate decision making [...] (i) The agent with financial power of customer care agent or a conservator appointed in accordance with [...] Current DME: none Home Address confirmed as: [address] [place] [id number] Social & Family Supports: All names listed below confirmed with patient as current and correct Extended Emergency Contact Information Primary Emergency Contact: Lillian Tyson Address: [address] [place] [id number] [place] [address] Mobile Relation: Spouse Current Care Provided by: [...] MEDICARE Payor: AAR MANAGED MEDICARE / Plan: [facility] MANAGED MEDICARE COMPLETE / Product Type: *No Product type* / Secondary Insurance: N/A ; Prescription Coverage: Yes Preferred Pharmacy: [id number] - [place], [place] - [address] [place], [place] [address]RO[address] [facility] [address] SEC [address] [facility] [address] [facility] [address] [facility] [address] [place] [address] [facility] - [place], [place] - [address] [facility] [address] [place] [address] Status: Patient is a : No Primary Care Provider confirmed: Christiana Moore APRN [phone] Patient/Caregiver Goals of Treatment: discharge home Potential Needs for Transition of Care: home health care Agency Referrals: I have met with the patient to: discuss discharge planning needs. provide the [facility], Office of Care Management letter from the Senior Tax Specialist pertaining to rehab referrals. provide a letter describing our affiliations within the [facility] and educate about their right to choose where referrals are sent. provide a list of Home Health Agencies / Durable Medical Equipment vendors which serve their preferred geographic area. provided patient with [facility] Star Quality Rating handout. They have requested referrals to: [facility] [address] [place] [address] KATELYN: 03/20/2023 Note routed to a Spectroscopist who will communicate referrals to facilities and [...] of care planning. Angela Rock RN-BSN-CM Pager: [phone] * Plan of Care - Cindy Bonilla [...] Operative Note Patient Name: Tree Lantigua DOB: [id number] MR#: [id number] Case Date: 03/18/2023 Surgeon: Surgeon(s) and Role: [...] - 03/18/2023 8:10 AM EST [facility] Operative Note Patient Name: Tree Lantigua : [id number] MR#: [id number] Case Date: 03/18/2023 Surgeon: Surgeon(s) and Role: [...] PM EDT [place] [address] Manjula Kitchen MD [facility] [place] [address] Scheduled Referrals Name Type Priority Associated Diagnoses Orde r Schedule Referral to Home Health Outpatient Referral Routine Chest wall abscess Ordered: 03/20/2023 documented as of this encounter Procedures Procedure Name Priority Date/Time Associated Diagnosis Comments SPECIMEN TO PATHOLOGY Routine 03/18/2023 8:21 AM EST SURGICAL PATHOLOGY REPORT Routine 03/18/2023 8:20 AM EST I&D Hematoma Seroma/Fluid Collection ([id number]) 03/18/2023 7:55 AM EST abscess old thoracotomy [...] AM EST 03/18/2023 8:21 AM EST Narrative [facility] - 03/18/2023 8:21 AM EST Specimen requisition ordered. ??Separate Pathology report to follow Jose Alvarez MD PATHOLOGY/CYTOLOGY O RDERAMICHAEL [facility] [place] [address] * Surgical Pathology Report (03/18/2023 8:20 AM EST) Final Diagnosis [id number] ? Location: WD; 0409; A The signing [...] ??03/26/2023 10:34 ??Pathologist Performed at: ??-[facility] Dept. of Pathology, [place] [address] Senior Tax Specialist: Tunde Smyth MD, FCAP, ??CLIA Certificate: [id number] SPECIMEN(S) SUBMITTED A - Skin and soft tissue, right posterior chest wall, debridement (1) CLINICAL INFORMATION Abscess old thoracotomy wound SPECIMEN PROCESSING A - Labeled/Fixative : Debridement right posterior chest wall, fresh. Quantity/Size: Single, 5.2 x 2.3 x 1.0 cm. Tissue Description: Grossman-bean, wrinkled skin ellipse with underlying bean, dull and rubbery subcutaneous tissue. Sections/Process ing: Conveyor Worker sections in 1 cassette labeled A1. ??jnr 03/26/2023 10:34 AM EST [facility] SPECIMEN FROM UNSPECIFIED BODY SITE / Unknown 03/18/2023 8:20 AM EST 03/18/2023 8:20 AM EST Jose Alvarez MD PATHOLOGY/CYTOLOGY O RDERABLES [facility] [place] [id number] [facility] [place] [address] * (ABNORMAL) Body Fluid Culture, Aerobic (03/17/2023 11:45 AM EST) Body Fluid Culture Many Staphylococcus aureus(A) [facility] Gram Stain Many Neutrophils seen Many Gram Positive Cocci seen (A) [facility] Organism Staphylococcus aureus(A) [facility] Organism Gram Positive Cocci(A) [facility] Fluid 03/17/2023 11:4 5 AM EST 03/17/2023 12:46 PM EST Comment:Abscess Narrative Resulting Agency Comment Spec In Lab Organism Antibiotic Method Susceptibility Staphylococcus aureus Clindamycin VITEK 2 METHOD Sensitive Staphylococcus aureus Erythromycin VITEK 2 METHOD Sensitive Staphylococcus aureus Gentamicin VITEK 2 METHOD Sensitive Comment:Gentamicin i s not appropriate for [place]-therapy. Staphylococcus aureus Oxacillin VITEK 2 METHOD Sensitive [...] Rodriguez MD MICROBIOLOGY - GENER AL ORDERABLES [facility] [place] [address] * L-Lactate2 Whole Blood (03/17/2023 11:13 AM EST) Lactate WB 1.5 0.5 - 2.2 mmol/L [facility] Blood 03/17/2023 11:1 3 AM EST 03/17/2023 11:13 AM EST Jose Alvarez MD CHEMISTRY ORDERABLES [facility] [place] [address] * Differential, Automated (03/17/2023 11:06 AM EST) Neutrophil % 74.9 % [facility] Neutrophil Absolute 5.59 1.70 - 6.10 x10(3)/[facility] Lymph % 15.7 % [facility] Lymphocytes Abs 1.2 0.9 - 3.2 x10(3)/[facility] Monocyte % 7.9 % [facility] Monocyte Abs 0.6 0.3 - 0.9 x10(3)/[facility] Eos % 0.3 % [facility] Eosinophils Abs 0.0 0.0 - 0.4 x10(3)/[facility] Basophil % 0.8 % [facility] Baso Absolute 0.1 0.0 - 0.1 x10(3)/[facility] Immature Gran % 0.40 % [facility] Comment: Immature granulocytes(IG's)percentage and absolute count will include metamyelocytes, myelocytes, and promyelocytes. Blood smears from CBCs yielding IG's will be scanned manually for concordance. If this scan disagrees with the automated IG or if promyelocytes are noted, a manual differential will be performed. Immature Gran Absolute 0.03 0.00 - 0.04 x10(3)/[facility] Blood 03/17/2023 11:0 6 AM EST 03/17/2023 11:14 AM EST Narrative Resulting Agency Comment Spec In Lab Becca Tovar MD HEMATOLOGY ORDERABLE S [facility] [place] [address] * (ABNORMAL) Hemogram (03/17/2023 11:06 AM EST) White Blood Cell 7.5 4.0 - 9.5 x10(3)/mc L [facility] Red Blood Cell 6.86(H) 4.58 - 5.54 x10(6)/mc L [facility] Hemoglobin 13.9 13.7 - 16.5 g/dL [facility] Hematocrit 46.0 40.5 - 48.5 % [facility] Mean Cell Volume 67.1(L) 82.9 - 93.1 fL [facility] Mean Cell Hemoglobin 20.3(L) 27.5 - 32.1 pg [facility] Mean Cell Hemoglobin Concentration 30.2(L) 32.0 - 35.7 g/dL [facility] Platelet 302 145 - 357 x10(3)/mc L [facility] RDW Standard Deviation 37.2 36.0 - 45.0 fL [facility] RDW coefficient of variation 17.3(H) 11.4 - 13.8 % [facility] Mean Platelet Volume 9.8 7.6 - 12.9 fL [facility] NRBC% auto 0.0 % [facility] NRBC Absolute 0.000 0.000 - 0.000 x10(3)/mc L [facility] Blood 03/17/2023 11:0 6 AM EST 03/17/2023 11:14 AM EST Narrative Resulting Agency Comment Spec In Lab Becca Tovar MD HEMATOLOGY ORDERABLE S Performing Organization Address City/[facility]/ZIP Co de Phone Number [facility] [place] [address] * (ABNORMAL) Sedimentation rate (03/17/2023 11:06 AM EST) Sedimentation Rate Automated >119(H) 2 - 37 mm/hr [facility] Comment: Effective March 19, 2019 new capillary photometric technology has resulted in a change in reference ranges. It is recommended that each ESR result be reviewed with its own age appropriate reference range. Blood 03/17/2023 11:0 6 AM EST 03/17/2023 11:14 AM EST Narrative Resulting Agency Comment Spec In Lab Jose Alvarez MD HEMATOLOGY ORDERABLE S [facility] [place] [address] * (ABNORMAL) CRP, acute inflammation (03/17/2023 11:06 AM EST) C-Reactive Protein 112.8(H) <=4.9 mg/L [facility] Blood 03/17/2023 11:0 6 AM EST 03/17/2023 11:14 AM EST Narrative Resulting Agency Comment Spec In Lab Jose Alvarez MD CHEMISTRY ORDERABLES [facility] [place] [address] * Basic Metabolic Panel (non-fasting) (03/17/2023 11:06 AM EST) Glucose 93 65 - 199 mg/dL [facility] Comment:Diabetes: >=200 mg/d L plus symptoms Blood Urea Nitrogen 12 10 - 20 mg/dL [facility] Creatinine 0.99 0.80 - 1.50 mg/dL [facility] Sodium 136 135 - 145 mmol/L [facility] Potassium 4.3 3.5 - 5.0 mmol/L [facility] Comment: Please note: ??Patients with WBC >100,000 may have falsely elevated Potassium levels. ??For accurate Potassium quantification in these patients send serum separator tube (gold top) for subsequent determinations. ??Contact the Clinical Chemistry Laboratory if there are any questions. Chloride 100 98 - 107 mmol/L [facility] Carbon Dioxide 22 22 - 31 mmol/L [facility] Anion Gap 14 5 - 15 mmol/L [facility] Calcium 9.5 8.5 - 10.5 mg/dL [facility] Est Glomerular Filtration Rate 83 >=60 mL/min/1. 73 m?? [facility] Comment: This patient's estimated GFR [...] In Lab Jose Alvarez MD CHEMISTRY ORDERABLES [facility] [place] [address] documented in this encounter Visit Diagnoses Not [...] injection 5,000 Units (COMPLETED) 5,000 Units, Subcutaneous, ROD PULLER AND COILER TO O.R., 1 dose, On Sun03/18/23 at 0830, Please administer avionics systems engineer to OR, prior to procedure, thank you, [...] Routine documented in this encounter Care Teams Stem Setter Relationship Specialty Start Date End Date Christiana Moore APRN [address] [place] [address] PCP - General Family Medicine 09/26/19 documented as of this encounter
--- OUTSIDE RECORDS SUMMARY | 2024-01-25 00:31 | XMS_ITS | Encounter Summary ---
Author Organization [facility] [place] [address] Care Team Providers Care Sub Prior Name Role Phone Christiana Moore APRN Primary Care Provider [phone] Encounter Details Date Type Department Care Team (Late st Contact Info) Description 03/21/2023 Telephone [place] [phone] Clarissa Murphy, RN Social History Tobacco Use [...] PM EDT Office [place] [address] Manjula Kitchen MD [facility] [place] [address] documented as of this encounter Visit Diagnoses Not on filedocumented in this encounter Care Teams Sub Prior Relationship Specialty Start Date End Date Christiana Moore APRN [address] [place] [address] PCP - General Family Medicine 09/26/19 documented as of this encounter
--- OUTSIDE RECORDS SUMMARY | 2024-01-25 00:31 | XMS_ITS | Encounter Summary ---
Author Organization [facility] [place] [address] Care Team Providers Care Environmental Test Technician Name Role Phone Christiana Moore RYAN Primary Care Provider [phone] Reason for Visit * Auth/Cert Specialty Diagnoses / Procedures Referred By Contac t Referred To Contact Diagnoses Complicated wound infection Procedures ER MICAELAI Quentin Carlin MD [facility] [place] [address] [facility] Referral ID Status Reason Start Date Expiration Date Visits Re quested Visits Authorized [id number] 1 1 Encounter Details Date Type Department Care Team (Latest Contact Info) Description 03/14/2023 1:00 PM EST Laboratory Appointment Lab [address] [place] [address] Chest wall abscess Social History [...] PM EDT Office [place] [address] Manjula Kitchen MD [facility] [place] [address] documented as of this encounter [...] Scan, Peripheral Blood (03/14/2023 1:00 PM EST) [facility] Plat estimate Normal [facility] RBC Morphology Abnormal [facility] Microcyte 1-5 /HPF [facility] Ovalocytes 1-5 /HPF [facility] Blood 03/14/2023 1:00 PM EST 03/14/2023 1:13 PM EST Narrative Resulting Agency Comment Spec In Lab Quentin Carlin MD HEMATOLOGY ORDERABLE S [facility] [place] [address] * (ABNORMAL) Differential, Automated (03/14/2023 1:00 PM EST) [facility] Neutrophil % 79.9 % [facility] Neutrophil Absolute 8.57(H) 1.70 - 6.10 x10(3)/mc L [facility] Lymph % 10.6 % [facility] Lymphocytes Abs 1.1 0.9 - 3.2 x10(3)/mc L [facility] Monocyte % 8.0 % [facility] Monocyte Abs 0.9 0.3 - 0.9 x10(3)/mc L [facility] Eos % 0.4 % [facility] Eosinophils Abs 0.0 0.0 - 0.4 x10(3)/mc L [facility] Basophil % 0.5 % [facility] Baso Absolute 0.0 0.0 - 0.1 x10(3)/mc L [facility] Immature Gran % 0.60 % [facility] Comment: Immature granulocytes(IG's)percentage and absolute count will include metamyelocytes, myelocytes, and promyelocytes. Blood smears from CBCs yielding IG's will be scanned manually for concordance. If this scan disagrees with the automated IG or if promyelocytes are noted, a manual differential will be performed. Immature Gran Absolute 0.06(H) 0.00 - 0.04 x10(3)/ L [facility] Blood 03/14/2023 1:00 PM EST 03/14/2023 1:13 PM EST Narrative Resulting Agency Comment Spec In Lab Quentin Carlin MD HEMATOLOGY ORDERABLE S Performing Organization Address City/State/[facility] Co de Phone Number [facility] [place] [address] * (ABNORMAL) Hemogram (03/14/2023 1:00 PM EST) White Blood Cell 10.7(H) 4.0 - 9.5 x10(3)/ L [facility] Red Blood Cell 6.63(H) 4.58 - 5.54 x10(6)/ L [facility] Hemoglobin 13.6(L) 13.7 - 16.5 g/dL [facility] Hematocrit 44.6 40.5 - 48.5 % [facility] Mean Cell Volume 67.3(L) 82.9 - 93.1 fL [facility] Mean Cell Hemoglobin 20.5(L) 27.5 - 32.1 pg [facility] Mean Cell Hemoglobin Concentration 30.5(L) 32.0 - 35.7 g/dL [facility] Platelet 282 145 - 357 x10(3)/ L [facility] RDW Standard Deviation 38.1 36.0 - 45.0 fL [facility] RDW coefficient of variation 17.7(H) 11.4 - 13.8 % [facility] Mean Platelet Volume 9.8 7.6 - 12.[address] [facility] NRBC% auto 0.0 % [facility] NRBC Absolute 0.000 0.000 - 0.000 x10(3)/mc L [facility] Blood 03/14/2023 1:00 PM EST 03/14/2023 1:13 PM EST Narrative Resulting Agency Comment Spec In Lab Quentin Carlin MD HEMATOLOGY ORDERABLE S [facility] [place] [address] * Basic Metabolic Panel (non-fasting) (03/14/2023 1:00 PM EST) Glucose 118 65 - 199 mg/dL [facility] Comment:Diabetes: >=200 mg/d L plus symptoms Blood Urea Nitrogen 13 10 - 20 mg/dL [facility] Creatinine 0.98 0.80 - 1.50 mg/dL [facility] Sodium 138 135 - 145 mmol/L [facility] Potassium 4.5 3.5 - 5.0 mmol/L [facility] Comment: Please note: ??Patients with WBC >100,000 may have falsely elevated Potassium levels. ??For accurate Potassium quantification in these patients send serum separator tube (gold top) for subsequent determinations. ??Contact the Clinical Chemistry Laboratory if there are any questions. Chloride 101 98 - 107 mmol/L [facility] Carbon Dioxide 26 22 - 31 mmol/L [facility] Anion Gap 11 5 - 15 mmol/L [facility] Calcium 9.5 8.5 - 10.5 mg/dL [facility] Est Glomerular Filtration Rate 84 >=60 mL/min/1. 73 m?? [facility] Comment: This patient's estimated GFR [...] In Lab Quentin Carlin MD CHEMISTRY ORDERABLES [facility] [place] [address] documented in this encounter Visit Diagnoses Diagnosis Chest wall abscess Cellulitis and abscess of trunk documented in this encounter Care Teams Environmental Test Technician Relationship Specialty Start Date End Date Christiana Moore APRN [address] [place] [address] PCP - General Family Medicine 09/26/19 documented as of this encounter
--- OUTSIDE RECORDS SUMMARY | 2024-01-25 00:31 | XMS_ITS | Encounter Summary ---
Author Organization [facility] [place] [address] Care Team Providers Care Director Volunteer Services Name Role Phone OscarChristiana RYAN Primary Care Provider [phone] Reason for Visit * Auth/Cert Specialty Diagnoses / Procedures Referred By Contac t Referred To Contact Diagnoses Complicated wound infection Procedures ER Quentin Arrieta MD [facility] [place] [address] [facility] Referral ID Status Reason Start Date Expiration Date Visits Re quested Visits Authorized [id number] 1 1 Encounter Details Date Type Department Care Team (Late st Contact Info) Description 03/18/2023 7:55 AM EST Anesthesia [place] [address] Sera Capone MD [facility] [place] [address] Camilla Cruz CRNA [facility] [place] [address] Anesthesia Record Procedure Summary Procedure Name Responsible [...] by Flakita Castro RN 03/18/23 0837 by Yuimko Rodriguez RN NPWT 12/09/19; chest; LDA not present upon assessment; 03/18/23; 0736 12/09/19 0000 by Janessa Campbell RN 03/18/23 0736 by Yumiko Rodriguez RN PIV 03/17/23; 1107; nsdl-[id number] catheter system; 20 gauge; median cubital vein [...] Procedure Summary Date: 03/18/23 Room / Location: [facility] OR [address] [place] [address] MAIN OR Anesthesia Start: 0755 Anesthesia Stop: 08 Procedure: INCISION & DRAINAGE HEMATOMA, SEROMA OR FLD. COLLECTION, TRUNK (WRVU 1.58) (Right: Trunk) Diagnosis: (abscess old thoracotomy wound) Surgeons: Quentin Carlin MD Responsible Provider: Sera Capone MD Anesthesia Type: MAC ASA Status: 3 - Emergent All Anesthesia Providers: Anesthesiologist: Sera Capone MD BUILDING CLEANER: Camilla Cruz CRNA Vitals Value Taken Time BP 110/72 03/18/23 0915 Temp 36.6 ??C (97.9 ??F) 03/18/23 0915 Pulse 59 03/18/23 0901 Resp 16 03/18/23 0915 SpO2 97 % 03/18/23 0917 Pain Level 0 03/18/23 0915 Vitals shown include unfiled device data. Patient Location: PACU/[facility] [...] 2.78) performed by Quentin Carlin MD at [facility] MAIN OR PRO DEBRIDEMENT MUSCLE AND FASCIA 20 SQ CM/< Right 12/09/2019 DEBRIDEMENT SKIN, SUBCU, MUSCLE, THORAX (WRVU 2.7) performed by Michael Li MD at [facility] MAIN OR PRO I&D HEMATOMA SEROMA/FLUID COLLECTION Right 11/09/2019 INCISION & DRAINAGE HEMATOMA, SEROMA OR FLD. COLLECTION, CHEST (WRVU 1.58) performed by Piyush Hobbs MD at [facility] MAIN OR PRO INCISION AND DRAINAGE COMPLEX POST OPERATIVE WOUND INFECTION Right 12/09/2019 INCISION & DRAINAGE COMPLEX POSTOPERATIVE WOUND INFECTION (WRVU 2.3) performed by Michael Li MD at [facility] MAIN OR PRO INJECTION ANES AGENT &/ STEROID INTERCOSTAL NERVE EA ADDL LEVEL Right 10/24/2019 NERVE BLOCK, INTERCOSTAL NERVE, MULTIPLE (WRVU 1.68) performed by Quentin Carlin MD at [facility] MAIN OR PRO THORACOSCOPY WITH BIOPSY OF PLEURA Right 10/24/2019 THORACOSCOPY; WITH BIOPSY(IES) OF PLEURA (WRVU 4.58) performed by Quentin Carlin MD at [facility] MAIN OR PRO THORACOTOMY WITH THERAPEUTIC WEDGE RESECTION EA ADDL Right 10/24/2019 @THORACOTOMY; W/THERAPEUTIC WEDGE RESECTION, EA ADD'L RESC, IPSILATERAL (WRVU 3) performed by Quentin Carlin MD at [facility] MAIN OR PRO THORACOTOMY WITH THERAPEUTIC WEDGE RESECTION INITIAL Right 10/24/2019 @THORACOTOMY; W/ THERAPEUTIC WEDGE RESECTION , INITIAL (WRVU 15.75) performed by Quentin Carlin MD at [facility] MAIN OR PRO THYMECTOMY, RADICAL MEDIAST DISSSEC Right 10/24/2019 @THYMECTOMY W/ RAD. MEDIASTINAL DISSECTION (WRVU 23.48) performed by Quentin Carlin MD at [facility] MAIN OR Social History Tobacco Use [...] risks discussed with patient. Plan discussed with BUILDING CLEANER and attending. Anesthesia Screening Code Status: Full code I discussed the risks of general anesthesia/MAC as detailed by the preoperative anesthesia consent with this patient. The patient demonstrated adequate understanding and acknowledged these risks and wishes to proceed with scheduled surgery. All questions related to anesthetic care were welcomed and answered to satisfaction. Sera Capone MD MS Anesthesiologist, [facility] Pager [phone] documented in this encounter Plan of Treatment Upcoming Encounters Date Type Department Care Team (Late st Contact Info) Description 02/08/2024 1:00 PM EDT Office [place] [address] Manjula Kitchen MD [facility] [place] [address] documented as of this encounter Visit Diagnoses [...] subcutaneous injection 5,000 Units 5,000 Units, Subcutaneous, ENVIRONMENTAL SAFETY SPECIALIST TO O.R., 1 dose, On 03/18/23 at 0830, Please administer consumer affairs manager to OR, prior to procedure, thank [...] mg documented in this encounter Care Teams Director Volunteer Services Relationship Specialty Start Date End Date Christiana Moore APRN [address] [place] [address] PCP - General Family Medicine 09/26/19 documented as of this encounter
--- OUTSIDE RECORDS SUMMARY | 2024-01-25 00:31 | XMS_ITS | Clinical Summary ---
Author Organization [facility] Address [address] [place] [address] Phone Care Team Providers Care Roller Leveler Name Role Phone Chris Kwan MD, Garrison Unavailable [phone] Doanld JORDAN, Ramakrishna Noyola Unavailable [phone] [...] benign colonic stricture presenting for postop follow-up. Lavallette removed and wound opened for concerns of low ongoing drainage. Given his recurrent soft tissue infections I will give him antibiotic and will pack the wound. Packing to be performed daily With dry gauze. He is was taught and trained how to do this. follow-up with me in a week - Last Documented On 05/25/2023 2:07PM ; [facility] Future Appointments Date [...] 0 refills Diagnosis: twice a day [facility] - [address] [facility], [phone] - Last Documented On 4 1:37PM By [...] 05/10 Last Documented On 4 2:07PM ; [facility] Maternal history of mother is alive 05/10 Last Documented On 4 2:07PM ; [facility] Review of Systems Includes: Review of [...] Time Diagnosis Post-Op Visit Ramakrishna Bennett MD [facility] 05/25/19 24 1:06PM 1:40PM Insurance Includes: Active Insurance Policies Plan Name Member ID Group # Subscriber Relationship Effect lanre Dates 1 - AARP Medicare Advantage HMO/POS/PPO - [facility] [id number] Tree Lantigua Self 06/27/2023 - Unknown Clinical Notes Includes: Clinical Notes from this encounter * Progress note Date Encounter Last Documented by 05/25/2023 Post-Op Visit Last documented on 05/25/2023; 2:07 PM, Ramakrishna Bennett MD; [facility] Chief Complaint The Chief Complaint [...] to fat necrosis, no soft tissue changes. Lavallette removed in the office today and wound [...]
--- OUTSIDE RECORDS SUMMARY | 2024-01-25 00:32 | XMS_ITS | Encounter Summary ---
Author Organization [facility] [place] [address] Care Team Providers Care Employee Service Officer Name Role Phone Christiana Moore APRN Primary Care Provider [phone] Encounter Details Date Type Department Care Team [...] PM EDT Office [place] [address] Manjula Kitchen MD [facility] [place] [address] documented as of this encounter Visit Diagnoses Not on filedocumented in this encounter Care Teams Employee Service Officer Relationship Specialty Start Date End Date Christiana Moore APRN [address] [place] [address] PCP - General Family Medicine 09/26/19 documented as of this encounter
--- OUTSIDE RECORDS SUMMARY | 2024-01-25 00:32 | XMS_ITS | Encounter Summary ---
Author Organization [facility] [place] [address] Care Team Providers Care Waste Removalist Name Role Phone Christiana Moore RYAN Primary Care Provider [phone] Encounter Details Date Type Department Care Team (Late st Contact Info) Description 10/18/2021 12:15 PM EDT Laboratory Appointment Lab [address] [place] [address] Social History Tobacco Use Types Packs/Day Years [...] PM EDT Office [place] [address] Manjula Kitchen MD [facility] [place] [address] documented as of this encounter Procedures Procedure Name Priority Date/Time Associated Diagnosis Comments CREATININE Routine 10/18/2021 12:27 PM EDT documented in this encounter Results * Creatinine (10/18/2021 12:27 PM EDT) Creatinine 0.88 0.80 - 1.50 mg/dL [facility] Est Glomerular Filtration Rate 94 >=60 mL/min/1. 73 m?? [facility] Comment: This patient's estimated GFR [...] Moore APRN CHEMISTRY ORDERABLES Performing Organization Address City/State/[facility] Co de Phone Number [facility] [place] [address] documented in this encounter Visit Diagnoses Not on filedocumented in this encounter Care Teams Waste Removalist Relationship Specialty Start Date End Date Christiana Moore APRN [address] [place] [address] PCP - General Family Medicine 09/26/19 documented as of this encounter
--- OUTSIDE RECORDS SUMMARY | 2024-01-25 00:32 | XMS_ITS | Encounter Summary ---
Author Organization [facility] [place] [address] Care Team Providers Care Sand Molder Name Role Phone Michael Moorey RYAN Primary Care Provider [phone] Encounter Details Date Type Department Care Team (Late st Contact Info) Description 03/25/2020 Telephone [place] [address] Ramses Contreras MD [facility] [place] [address] Social History Tobacco Use Types Packs/Day Years [...] patient warrants admission or transfer here to [facility]. Review of his previous microbiology demonstrated [...] PM EDT Office [place] [address] Manjula Kitchen MD [facility] [place] [address] documented as of this encounter Visit Diagnoses Not on filedocumented in this encounter Care Teams Sand Molder Relationship Specialty Start Date End Date Christiana Moore APRN [address] [place] [address] PCP - General Family Medicine 09/26/19 documented as of this encounter
--- OUTSIDE RECORDS SUMMARY | 2024-01-25 00:32 | XMS_ITS | Encounter Summary ---
Author Organization [facility] [place] [address] Care Team Providers Care Puller Over Name Role Phone Christiana Moore RYAN Primary Care Provider [phone] Reason for Referral * Diagnostic Test (Routine) - Closed Specialty Diagnoses / Procedures Referred By Contac t Referred To Contact Radiology Diagnoses Type A malignant thymoma Procedures CT Chest wo Contrast (Generic) Jose Alvarez MD [facility] [place] [address] [facility] [place] [address] Referral ID Status Reason Start Date Expiration Date V isits Requested Visits Authorized [id number] Closed Specialty Service Requested 03/24/2021 09/21/2022 1 1 Reason for Visit * Reason Comments Cancer Encounter Details Date Type Department Care Team (Late st Contact Info) Description 03/22/2021 3:00 PM EST Office [place] [address] Jose Alvarez MD [facility] [place] [address] Type A malignant thymoma Social [...] Outpatient Follow Up Note Jose Alvarez MD [place] [address] FAX: Pre Op Dx: Mediastinal Mass Post [...] which he was scheduled to see a licensed practical nurse clinic nurse. He presents today in clinicfor a follow-up [...] PM EDT Office [place] [address] Manjula Kitchen MD [facility] [place] [address] documented as of this encounter Results * [...] who have questions please contact the health lawn caretaker that requested your imaging first. ? Electronically signed by: Todd Pichardo MD, [facility] ??([phone]), at 10/17/2022 12:27 PM Narrative 10/17/2022 12:27 [...] patients who have questions please contactthe health lawn caretaker that requested your imaging first. 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
--- OUTSIDE RECORDS SUMMARY | 2024-01-25 00:32 | XMS_ITS | Encounter Summary ---
Author Organization [facility] [place] [address] Care Team Providers Care Wallpaper Hanger Helper Name Role Phone Christiana Moore APRN Primary Care Provider [phone] Encounter Details Date Type Department Care Team (Late st Contact Info) Description 03/25/2020 7:20 PM EST Ancillary Procedure Radiology Library at [facility] [place] [address] Ramses Contreras MD [facility] [place] [address] Social History Tobacco Use Types Packs/Day Years [...] PM EDT Office Visit General Surgery at [facility] [place] [address] Manjula Kitchen MD [facility] [place] [address] documented as of this encounter Procedures Procedure [...] Contreras MD IMG FILM LIBRARY OR DERABLES [place], [place] documented in this encounter Visit Diagnoses Not on filedocumented in this encounter Care Teams Wallpaper Hanger Helper Relationship Specialty Start Date End Date Christiana Moore APRN [address] [place] [address] PCP - General Family Medicine 09/26/19 documented as of this encounter
--- OUTSIDE RECORDS SUMMARY | 2024-01-25 00:32 | XMS_ITS | Encounter Summary ---
[place] [address] Care Team Providers Care Generation Manager Name Role Phone Christiana Moore APRN Primary Care Provider [phone] Reason for Visit * Reason Onset Date Comments Other 03/25/2020 Encounter Details Date Type Department Care Team (Late st Contact Info) Description 03/25/2020 Telephone [place] [address] Monica Price RN Other Social History Tobacco [...] other TC from [facility] with [facility] Hx: s/p I & D of [...] from a 3. Discussed with Dr. Contreras (regional sales manager) instructed to head to [facility] ED for evaluation. Mr. Lantigua was in agreement with plan and report to be called. TC to [facility] ED - [phone] Spoke with EVER Francislathe operator contact lens nurse in ED. Report given and requested CT scan of Chest with IV contrast to be completed as well blood work. Penny was grateful for the update and will look for Mr. Lantigua. documented in this encounter Plan of Treatment Upcoming Encounters Date Type Department Care Team (Late st Contact Info) Description 02/08/2024 1:00 PM EDT Office [place] [address] Manjula Kitchen MD [facility] [place] [address] documented as of this encounter Visit Diagnoses Not on filedocumented in this encounter Care Teams Generation Manager Relationship Specialty Start Date End Date Christiana Moore APRN [address] [place] [address] PCP - General Family Medicine 09/26/19 documented as of this encounter
--- OUTSIDE RECORDS SUMMARY | 2024-01-25 00:32 | XMS_ITS | Encounter Summary ---
Author Organization [facility] Address [facility] [address] Care Team Providers Care Head Waiter/Waitress Name Role Phone Oscar Christiana DAVIS Primary Care Provider Encounter Details Date Type Department Care Team (Late st Contact Info) Description 04/13/2020 11:30 AM EST Office [place] [address] Fatou Dong PA [facility] [place] [place] [address] Open wound of right chest wall with [...] with dressing over the phone on Sunday [phone]. Dr. Carlin would like to see you [...] Outpatient Follow Up Note Fatou Dong PA-C [place] [address] FAX: Pre Op Dx:??mediastinal mass ?? Post [...] questions Fatou Dong PA-C 04/13/2020 Thoracic Surgery [facility] documented in this encounter Procedure Notes [...] atop. Fatou Dong PA-C 04/13/2020 Thoracic Surgery [facility] documented in this encounter Plan of Treatment Upcoming Encounters Date Type Department Care Team (Late st Contact Info) Description 02/08/2024 1:00 PM EDT Office [place] [address] Manjula Kitchen MD [facility] [place] [address] documented as of this encounter Visit Diagnoses Diagnosis Open wound of right chest wall with complication, subsequent encounter documented in this encounter Care Teams Head Waiter/Waitress Relationship Specialty Start Date End Date Christiana Moore APRN [address] [place] [address] PCP - General Family Medicine 09/26/19 documented as of this encounter
--- OUTSIDE RECORDS SUMMARY | 2024-01-25 00:32 | XMS_ITS | Encounter Summary ---
Author Organization [facility] [place] [place] [address] Care Team Providers Care Outsole Cementer Machine Name Role Phone Christiana Moore APRN Primary Care Provider [phone] Encounter Details Date Type Department Care Team (Late st Contact Info) Description 03/15/2020 Telephone [place] [address] Clarissa Murphy RN Social History Tobacco Use [...] ESTSummary: Change in frequency of VNA visits [facility] is having surgery and will be unable to perform his wound care March 23 through March 26, 2020. Please schedule daily visits those four days and then resume twice weekly visits the following week. Thank you, Quentin Carlin MD [phone] * Telephone Encounter - Clarissa Murphy RN [...] Office [place] [address] Manjula Kitchen MD [facility] [address] documented as of this encounter Visit Diagnoses Not on filedocumented in this encounter Care Teams Outsole Cementer Machine Relationship Specialty Start Date End Date Christiana Moore APRN [address] [place] [address] PCP - General Family Medicine 09/26/19 documented as of this encounter
--- OUTSIDE RECORDS SUMMARY | 2024-01-25 00:32 | XMS_ITS | Encounter Summary ---
Author Organization [facility] [place] [address] Care Team Providers Care Med Spa Manager Name Role Phone Oscar Christiana RYAN Primary Care Provider [phone] Reason for Referral * Diagnostic Test (Routine) - Closed Specialty Diagnoses / Procedures Referred By Contac t Referred To Contact Radiology Diagnoses Type A malignant thymoma Procedures CT Chest w Contrast Quentin Carlin MD [facility] [place] [address] [facility] [place] [address] Referral ID Status Reason Start Date Expiration Date V isits Requested Visits Authorized [id number] Closed Specialty Service Requested 10/19/2020 04/21/2022 1 1 Reason for Visit * Diagnostic Test (Routine) - Closed Specialty Diagnoses / Procedures Referred By Contac t Referred To Contact Radiology Diagnoses Type A malignant thymoma Procedures CT Chest w Contrast Quentin Carlin MD [facility] [place] [address] [facility] [place] [address] Referral ID Status Reason Start Date Expiration Date V isits Requested Visits Authorized [id number] Closed Specialty Service Requested 10/19/2020 04/21/2022 1 1 Encounter Details Date Type Department Care Team (Latest Contact Info) Description 03/22/2021 2:01 PM EST - 03/22/2021 11:59 PM EST Hospital [place] [phone] Quentin Carlin MD [facility] [place] [address] Type A malignant thymoma Discharge Disposition: Home [...] PM EDT Office [place] [address] Manjula Kitchen MD [facility] [place] [address] documented as of this encounter Procedures Procedure [...] questions please contact the health child care lead teacher that requested your imaging first. ? Narrative [...] have questions please contactthe health child care lead teacher that requested your imaging first. Quentin Carlin [...] mLs documented in this encounter Care Teams Med Spa Manager Relationship Specialty Start Date End Date Christiana Moore APRN [address] [place] [address] PCP - General Family Medicine 09/26/19 documented as of this encounter
--- OUTSIDE RECORDS SUMMARY | 2024-01-25 00:32 | XMS_ITS | Encounter Summary ---
Author Organization [facility] [place] [address] Care Team Providers Care Facility Assistant Name Role Phone Christiana Moore APRN Primary Care Provider [phone] Encounter Details Date Type Department Care Team (Late st Contact Info) Description 2020 Telephone [place] [phone] Clarissa Murphy RN Social History Tobacco Use [...] an office visit with a PA or OPTOMETRIC TECH. documented in this encounter Plan of Treatment Upcoming Encounters Date Type Department Care Team (Late st Contact Info) Description 02/08/2024 1:00 PM EDT Office [place] [address] Manjula Kitchen MD [facility] [place] [address] documented as of this encounter Visit Diagnoses Not on filedocumented in this encounter Care Teams Facility Assistant Relationship Specialty Start Date End Date Christiana Moore APRN [address] [place] [address] PCP - General Family Medicine 09/26/19 documented as of this encounter
--- OUTSIDE RECORDS SUMMARY | 2024-01-25 00:32 | XMS_ITS | Encounter Summary ---
Author Organization [facility] [place] [address] Care Team Providers Care Statuary Painter Name Role Phone Oscar Christiana RYAN Primary Care Provider [phone] Encounter Details Date Type Department Care Team (Late st Contact Info) Description 04/20/2020 Telephone [place] [phone] Monica Price RN Social History Tobacco Use [...] PM EDT Office Visit [place] [address] Manjula Kitchen MD [facility] [place] [address] documented as of this encounter Visit Diagnoses Not on filedocumented in this encounter Care Teams Statuary Painter Relationship Specialty Start Date End Date Christiana Moore APRN [address] [place] [address] PCP - General Family Medicine 09/26/19 documented as of this encounter
--- OUTSIDE RECORDS SUMMARY | 2024-01-25 00:32 | XMS_ITS | Encounter Summary ---
Author Organization [facility] [place] [address] Care Team Providers Care Cinder Man Name Role Phone Christiana Moore APRN Primary Care Provider [phone] Encounter Details Date Type Department Care Team (Late st Contact Info) Description 04/26/2020 Telephone [place] [phone] Clarissa Murphy, RN Social History Tobacco Use [...] PM EDT Office [place] [address] Manjula Kitchen MD [facility] [place] [address] documented as of this encounter Visit Diagnoses Not on filedocumented in this encounter Care Teams Cinder Man Relationship Specialty Start Date End Date Christiana Moore APRN [address] [place] [address] PCP - General Family Medicine 09/26/19 documented as of this encounter
--- OUTSIDE RECORDS SUMMARY | 2024-01-25 00:32 | XMS_ITS | Encounter Summary ---
Author Organization [facility] [place] [address] Care Team Providers Care Hourly Sign Language Interpreter Name Role Phone Oscar Christiana DAVIS Primary Care Provider [phone] Reason for Visit * Reason Comments Cancer Encounter Details Date Type Department Care Team (Late st Contact Info) Description 01/27/2020 1:00 PM EDT Office [place] [address] Jose Alvarez MD [facility] [place] [address] Type A malignant thymoma; Chest wall abscess; [...] Follow Up Note MD Fatou Nance PA-C [place] [address] FAX: Pre Op Dx:??mediastinal mass ?? Post [...] no signs of infection. Wound measures ~ [id number] and tunnels ~1 cm superiorly and 6cm [...] questions Fatou Dong PA-C 01/27/2020 Thoracic Surgery [facility] I have seen the patient [...] PM EDT Office [place] [address] Manjula Kitchen MD [facility] [place] [address] documented as of this encounter Visit Diagnoses Diagnosis Type A malignant thymoma Chest wall abscess Cellulitis and abscess of trunk Open wound of right chest wall with complication, subsequent encounter documented in this encounter Care Teams Hourly Sign Language Interpreter Relationship Specialty Start Date End Date Christiana Moore APRN [address] [place] [address] PCP - General Family Medicine 09/26/19 documented as of this encounter
--- OUTSIDE RECORDS SUMMARY | 2024-01-25 00:32 | XMS_ITS | Encounter Summary ---
Author Organization [facility] [place] [address] Care Team Providers Care Editor Trade Journal Name Role Phone Christiana Moore RYAN Primary Care Provider [phone] Reason for Referral * Diagnostic Test (Routine) - New Request Specialty Diagnoses / Procedures Referred By Contac t Referred To Contact Radiology Diagnoses Type A malignant thymoma Procedures CT Chest wo Contrast (Generic) Jose Alvarez MD [facility] [place] [address] [facility] [place] [address] Referral ID Status Reason Start Date Expiration Date Visits Requested Visits Authorized [id number] New Request Specialty Service Requested 10/17/2022 04/19/2024 1 1 Reason for Visit * Reason Comments Follow-up Cancer Thymoma Encounter Details Date Type Department Care Team (Late st Contact Info) Description 10/17/2022 10:30 AM EDT Office [place] [address] Jose Alvarez MD [facility] [place] [address] Type A malignant thymoma Social [...] Follow Up Note MD Ramiro Nance, MS3 [facility] [place], [place] [address] FAX: Pre Op Dx: Mediastinal Mass Post [...] 3. Call with any questions Ramiro Salinas, [facility] have seen the patient and reviewed the medical student's above history. The assessment and plan were formulated in discussion with me. Please see my note for details. JOSE ALVAREZ MD * Jose Alvarez MD - 10/17/2022 10:30 AM EDT Thoracic Surgery Attending Outpatient Follow Up Note MD Ramiro Nance, [facility] [place] [address] FAX: Pre Op Dx: Mediastinal Mass Post [...] PM EDT Office [place] [address] Manjula Kitchen MD [facility] [place] [address] Scheduled Orders Name Type Priority Associated Diagnoses Orde r Schedule CT Chest wo Contrast (Generic) Imaging Routine Type A malignant thymoma Expected: 10/18/2023, Expires: 04/19/2024 documented as of this encounter Visit Diagnoses Diagnosis Type A malignant thymoma documented in this encounter Care Teams Editor Trade Journal Relationship Specialty Start Date End Date Christiana Moore APRN [address] [place] [address] PCP - General Family Medicine 09/26/19 documented as of this encounter
--- OUTSIDE RECORDS SUMMARY | 2024-01-25 00:32 | XMS_ITS | Encounter Summary ---
Author Organization [facility] [place] [address] Care Team Providers Care Telecommunications Repairer Name Role Phone Oscar Christiana RYAN Primary Care Provider [phone] Reason for Referral * Diagnostic Test (Routine) - Closed Specialty Diagnoses / Procedures Referred By Contac t Referred To Contact Radiology Diagnoses Type A malignant thymoma Procedures CT Chest w Contrast Quentin Carlin MD [facility] [place] [address] [facility] [place] [address] Referral ID Status Reason Start Date Expiration Date V isits Requested Visits Authorized [id number] Closed Specialty Service Requested 02/24/2020 08/23/2021 1 1 Reason for Visit * Diagnostic Test (Routine) - Closed Specialty Diagnoses / Procedures Referred By Contac t Referred To Contact Radiology Diagnoses Type A malignant thymoma Procedures CT Chest w Contrast Quentin Carlin MD [facility] [place] [address] [facility] [place] [address] Referral ID Status Reason Start Date Expiration Date V isits Requested Visits Authorized [id number] Closed Specialty Service Requested 02/24/2020 08/23/2021 1 1 Encounter Details Date Type Department Care Team (Latest Contact Info) Description 10/19/2020 12:00 PM EDT - 10/19/2020 11:59 PM EDT Hospital [place] [phone] Quentin Carlin MD [facility] [place] [address] Type A malignant thymoma Discharge Disposition: Home [...] PM EDT Office [place] [address] Manjula Kitchen MD [facility] [place] [address] documented as of this encounter Procedures Procedure [...] who have questions please contact the health mall plant caretaker that requested your imaging first. ? Electronically signed by: Ava Islas MD, [facility] ([phone]), at 10/19/2020 3:01 PM Narrative 10/19/2020 3:01 [...] sagittal reformatted images were generated. COMPARISON: 03/25/2020 [facility]. FINDINGS: Pulmonary parenchyma: Chain suture in [...] andsagittal reformatted images were generated. COMPARISON: 03/25/2020 [facility]. FINDINGS: Pulmonary parenchyma: Chain suture in [...] patients who have questions please contactthe health mall plant caretaker that requested your imaging first. Electronically signed by: Ava Islas MD, [facility]([phone]), at 10/19/2020 3:01 PM Quentin Carlin MD [...] mLs documented in this encounter Care Teams Telecommunications Repairer Relationship Specialty Start Date End Date Christiana Moore APRN [address] [place] [address] PCP - General Family Medicine 09/26/19 documented as of this encounter
--- OUTSIDE RECORDS SUMMARY | 2024-01-25 00:32 | XMS_ITS | Encounter Summary ---
[place] [address] Care Team Providers Care Prison Guard Supervisor Name Role Phone Christiana Moore APRN Primary Care Provider [phone] Reason for Referral * Diagnostic Test (Routine) - Closed Specialty Diagnoses / Procedures Referred By Ankit hong Referred To Contact Radiology Diagnoses Thymoma Multiple nodules of lung Procedures CT Chest w Contrast Christiana Moore APRN [address] [place] [address] [facility] [place] [address] Referral ID Status Reason Start Date Expiration Date V isits Requested Visits Authorized [id number] Closed Specialty Service Requested 08/17/2021 02/17/2023 1 1 Reason for Visit * Diagnostic Test (Routine) - Closed Specialty Diagnoses / Procedures Referred By Ankit hong Referred To Contact Radiology Diagnoses Thymoma Multiple nodules of lung Procedures CT Chest w Contrast Christiana Moore APRN [address] [place] [address] [facility] [place] [address] Referral ID Status Reason Start Date Expiration Date V isits Requested Visits Authorized [id number] Closed Specialty Service Requested 08/17/2021 02/17/2023 1 1 Encounter Details Date Type Department Care Team (Latest Contact Info) Description 10/18/2021 12:46 PM EDT - 10/18/2021 11:59 PM EDT Hospital [place] [phone] Christiana Moore APRN [address] [place] [address] Thymoma; Multiple nodules of lung Discharge Disposition: [...] PM EDT Office [place] [address] Manjula Kitchen MD [facility] [place] [address] documented as of this encounter Procedures Procedure [...] have questions please contact the health career professional that requested your imaging first. ? Narrative [...] were generated. COMPARISON: Chest CT 03/22/2021 FINDINGS: Manufacturing Electrician images: Noncontributory Pulmonary parenchyma: Suture material and [...] were generated. COMPARISON: Chest CT 03/22/2021 FINDINGS: Manufacturing Electrician images: Noncontributory Pulmonary parenchyma: Suture material and [...] who have questions please contactthe health career professional that requested your imaging first. Christiana Moore COURT BAILIFF OR SHERIFF IMG CT ORDERABLES documented in this encounter [...] mLs documented in this encounter Care Teams Prison Guard Supervisor Relationship Specialty Start Date End Date Christiana Moore APRN [address] [place] [address] PCP - General Family Medicine 09/26/19 documented as of this encounter
--- OUTSIDE RECORDS SUMMARY | 2024-01-25 00:32 | XMS_ITS | Encounter Summary ---
[place] [address] Care Team Providers Care Yolk Spray Drier Name Role Phone Oscar Christiana RYAN Primary Care Provider [phone] Reason for Visit * Reason Comments Wound Check * Auth/Cert Specialty Diagnoses / Procedures Referred By Contac t Referred To Contact Diagnoses Chest wall abscess Open wound of right chest wall with complication wound vac filled with puss Procedures EMERGENCY OBSVO Referral ID Status Reason Start Date Expiration Date Visits Re quested Visits Authorized [id number] 1 1 Encounter Details Date Type Department Care Team (Late st Contact Info) Description 12/09/2019 10:48 AM EDT - 12/09/2019 12:45 PM EDT [place] [address] Michael Li MD [address] [place] [address] INCISION & DRAINAGE COMPLEX POSTOPERATIVE WOUND INFECTION [...] Hospital Course: Tree Lantigua was admitted to [facility] on 12/08/2019 viathe ED. He was brought [...] a nurse in the Thoracic Clinic at [phone]. After hours or on weekends or holidays please call: [phone] and ask to speak to the Thoracic Surgeon on c all. Medication: Bactrim and oxycodone was sent to [facility]. Exercise & Activity Level: As you [...] the Thoracic Clinic or the Thoracic Surgeon chip bin conveyor tender after hours. Please take over the counter [...] Referral to Home Health - at DISCHARGE [[id number] CPT(R)] As directed Process Instructions: Scheduling Instructions: Comments: DOCUMENTATION FOR VNA SERVICES (INCLUDING THOSE PATIENTS WITH MEDICARE COVERAGE REQUIRING HOME VNA SERVICES AND/OR HOSPICE SERVICES) PATIENT'S LOCATION: Tree Lantigua ? [address] [place] [phone] (home) ?? Cell: Telephone Information: Mobile ?[phone] Dry Wall Nailer's Name: Self In discussion with the attending physician, it is certified that this patient is under their care and that they, or a Nurse Practitioner,Clinical Nurse specialist or Physician Glass Beveller who is working directly with them, had [...] (Per pt - should be at the [facility] clinic on for MD review) VAC Therapy [...] VAC dressing. ?? HOME HEALTH CARE AGENCY: [facility] ?? PHONE: [phone] FAX: [phone] Start of care: 24 to 48 hours [...] ? [address] / [place] [address] ?[phone] All VNA agencies which cover the area of patient's residence have been reviewed, either verbally carmel writing, and patient/family have chosen the home health care agency noted Questions: Agency name and contact information: [facility] Patient location post discharge: home What services are requested: Registered Nurse Start date: Responsible MD post discharge contact info: Surgery services and PCP Provider Contact Information: Primary Care Provider: Christiana Moore APRN [phone] Discharge References/Attachments: Discharge References/Attachments None For questions regarding this document or issues relating to this hospitalization on the Thoracic Surgery Service, please contact Dr. Carlin's office at . Signed: Kim Ramsey MD 12/09/2019 CC: PCP: Christaina Moore APRN Referring: Unknown None documented in [...] a nurse in the Thoracic Clinic at [phone]. After hours or on weekends or holidays please call: [phone] and ask to speak to the Thoracic Surgeon on c all. Medication: Bactrim and oxycodone was sent to [facility]. Exercise & Activity Level: As you [...] the Thoracic Clinic or the Thoracic Surgeon chip bin conveyor tender after hours. Please take over the counter [...] agency he had: Patient requests referral to: [facility] [employer]. PHONE: [phone] FAX: [phone] Expected date of discharge: 12/09/2019 Referral routed to the Waiter/Waitress First Class for matching with agency/vendor and to provide any required informationKathia Dubose RN (Jonas) ED RN/CM Cellphone: [phone] * Clement Damon MD - 12/09/2019 5:[address] [facility] Department of Thoracic Surgery Inpatient Post Op Check Note Patient Name: Tree Lantigua Patient : 1955 Patient Patient Location: [address] [place] [address] Attending Surgeon: ARMEN SIMON DAVID J ID: [...] ED to Hosp-Admission (Current) from 12/08/[address] [place] [address] ED to Hosp-Admission (Discharged) from 11/09/[address] [place] [address] Weight 77.1 kg (170 lb) 1 12/08/2019 [...] Damon MD 12/09/2019 Thoracic Surgery Service Pager [phone] * Clement Damon MD - 12/09/2019 8:[address] [facility] Department of Thoracic Surgery Inpatient Progress Note Patient Name: Tree Lantigua Patient : 1955 Patient Patient Location: [address] [place] [address] Attending Surgeon: ARMEN SIMON DAVID J ID: [...] to Hosp-Admission (Current) from 12/08/2019 in [facility] ED to Hosp-Admission (Discharged) from 11/09/2019 in 4 [facility] Weight 77.1 kg (170 lb) [...] Damon MD 12/09/2019 Thoracic Surgery Service Pager [phone] * Norma Contreras RN - 12/08/2019 11:50 PM EDT Pt arrived to the floor around 2230. AAOx4. VSS. Pt oriented to unit, room, and staff. NPO at midnight for possible OR in morning. See DocFlow for assessment. Will continue to monitor. Report received from ED, RN. documented in this encounter H&P Notes * Tree Hodge MD - 12/08/2019 8:[address] [facility] Department of Thoracic Surgery Consult Note Consultation [...] site and tachycardia. He then presented to [facility] ED. Upon arrival, he was afebrile, tachycardic to 130s, and normotensive with expression of purulence from right back surgical site.Labs significant for mild leukocytosis to 14.5. Thoracic surgery was then consulted for management. PMH: Right anterior thymoma PSH: Past Surgical History: Procedure Laterality Date ??? PRO BRONCHOSCOPY, DIAGNOSTIC N/A 10/24/2019 BRONCHOSCOPY, DIAGNOSTIC (WRVU 2.78) performed by Quentin Carlin MD at [facility] OR ??? PRO DRAINAGE OF HEMATOMA/FLUID Right 11/09/2019 INCISION & DRAINAGE HEMATOMA, SEROMA OR FLD. COLLECTION, CHEST (WRVU 1.58) performed by Piyush Hobbs MD at [facility] MAIN OR ? ? PRO INJECTION ANES AGENT &/ STEROID INTERCOSTAL NERVE EA ADDL LEVEL Right 10/24/2019 NERVE BLOCK, INTERCOSTAL NERVE, MULTIPLE (WRVU 1.68) performed by Quentin Carlin MD at [facility] MAIN OR ??? PRO THORACOSCOPY WITH BIOPSY OF PLEURA Right 10/24/2019 THORACOSCOPY; WITH BIOPSY(IES) OF PLEURA (WRVU 4.58) performed by Quentin Carlin MD at [facility] OR ??? PRO THORACOTOMY WITH THERAPEUTIC WEDGE RESECTION EA ADDL Right 10/24/2019 @THORACOTOMY; W/THERAPEUTIC WEDGE RESECTION, EA ADD'L RESC, IPSILATERAL (WRVU 3) performed by Quentin Carlin MD at [facility] OR ??? PRO THORACOTOMY WITH THERAPEUTIC WEDGE RESECTION INITIAL Right 10/24/2019 @THORACOTOMY; W/ THERAPEUTIC WEDGE RESECTION , INITIAL (WRVU 15.75) performed by Quentin Carlin MD at [facility] OR ??? PRO THYMECTOMY, RADICAL MEDIAST DISSSEC Right 10/24/2019 @THYMECTOMY W/ RAD. MEDIASTINAL DISSECTION (WRVU 23.48) performed by Quentin Carlin MD at [facility] OR MEDS: No current facility-administered medications [...] file Gets together: Not on file Attends roman catholic service: Not on file Active member of [...] and tachycardia for which he presented to [facility] ED. He is currently afebrile, tachycardic to [...] If you have any questions, please page [phone]. Tree Hodge MD Thoracic Surgery, Pager [phone] 12/08/2019 8:35 PM documented in this encounter [...] give broad-spectrum antibiotics. Armen Simon MD 12/08/19 [phone] * Zeeshan Luna MD - 12/08/2019 3:51 [...] - 12/09/2019 1:29 PM EDTSummary: Operative Report [facility] Operative Note Patient Name: Tree Lantigua : [id number] MR#: [id number] Case Date: 12/09/2019 Surgeon: Surgeon(s) and Role: [...] PM EDT Office [place] [address] Manjula Kitchen MD [facility] [place] [address] documented as of this encounter Procedures Procedure [...] Debridement Muscle And Fascia 20 Sq Cm/< (62545) 12/09/2019 11:44 AM EDT chest wall abscess Incision And Drainage Complex Post Operative Wound Infection (77368) 12/09/2019 11:44 AM EDT chest wall abscess HEMOGRAM Routine 12/09/2019 5:07 AM EDT DIFFERENTIAL, AUTOMATED Routine 12/09/2019 5:07 AM EDT HC CBC,PLT & AUTO DIFF Routine 0 5:07 AM EDT RAPID COVID-19 PCR ([facility]D/[facility]) STAT 12/08/2019 10:[address] CHEST [...] AL ORDERABLES [facility] [place] [address] * (ABNORMAL) Abscess/Wound Aspirate Culture (12/09/2019 12:34 [...] Sensitive Comment:Gentamicin i s not appropriate for Logan-therapy. Staphylococcus aureus Levofloxacin VITEK 2 METHOD Sensitive [...] AL ORDERABLES [facility] [place] [address] * Anaerobic Culture (12/09/2019 12:34 PM EDT) Anaerobic Culture No anaerobic organisms isolated [facility] Specimen from abscess (specimen) THORACIC STRUCTURE / Unknown 12/09/2019 12:34 PM EDT 12/09/2019 2:14 PM EDT Comment:RIGHT POSTERIOR LATE RAL CHEST WALL WOUND #1 Narrative Resulting Agency Comment Spec In Lab Michael Li MD MICROBIOLOGY - GENER AL ORDERABLES Performing Organization Address City/[facility]/ZIP Co de Phone Number [facility] [place] [address] * (ABNORMAL) Abscess/Wound Aspirate Culture (12/09/2019 12:34 [...] - GENER AL ORDERABLES Performing Organization Address [facility] Co de Phone Number [facility] [place] [address] * AFB culture Other (12/09/2019 12:34 PM [...] - GENER AL ORDERABLES Performing Organization Address [facility] Co de Phone Number [facility] [place] [address] * Fungus culture Abscess (12/09/2019 12:34 PM EDT) Fungus Culture No Fungus isolated [facility] Specimen from abscess (specimen) 12/09/2019 12:34 PM EDT 12/09/2019 2:15 PM EDT Comment:RIGHT POSTERIOR LATE RAL CHEST WALL WOUND #2 Narrative Resulting Agency Comment Spec In Lab Quentin Carlin MD MICROBIOLOGY - GENER AL ORDERABLES Performing Organization Address City/[facility] Co de Phone Number [facility] [place] [address] * AFB culture Other (12/09/2019 12:34 PM [...] - GENER AL ORDERABLES Performing Organization Address [facility]/ZIP Co de Phone Number [facility] [place] [address] * Fungus culture Abscess (12/09/2019 12:34 PM EDT) Fungus Culture No Fungus isolated [facility] Specimen from abscess (specimen) 12/09/2019 12:34 PM EDT 12/09/2019 2:14 PM EDT Comment:RIGHT POSTERIOR LATE RAL CHEST WALL WOUND #1 Narrative Resulting Agency Comment Spec In Lab Quentin Carlin MD MICROBIOLOGY - GENER AL ORDERABLES Performing Organization Address City/[facility]/ZIP Co de Phone Number [facility] [place] [address] * (ABNORMAL) Differential, Automated (12/09/2019 5:07 AM EDT) Neutrophil % 65.1 % [facility] Neutrophil Absolute 5.83 1.70 - 6.10 x10(3)/mc L [facility] Lymph % 17.7 % [facility] Lymphocytes Abs 1.6 0.9 - 3.2 x10(3)/mc L [facility] Monocyte % 11.8 % [facility] Monocyte Abs 1.1(H) 0.3 - 0.9 x10(3)/mc L [facility] Eos % 3.5 % [facility] Eosinophils Abs 0.3 0.0 - 0.4 x10(3)/[facility] Basophil % 0.7 % [facility] Baso Absolute 0.1 0.0 - 0.1 x10(3)/[facility] Immature Gran % 1.20 % [facility] Comment: Immature granulocytes(IG's)percentage and absolute count will include metamyelocytes, myelocytes, and promyelocytes. Blood smears from CBCs yielding IG's will be scanned manually for concordance. If this scan disagrees with the automated IG or if promyelocytes are noted, a manual differential will be performed. Immature Gran Absolute 0.11(H) 0.00 - 0.04 x10(3)/[facility] Blood specimen (specimen) 12/09/2019 5:07 AM EDT 12/09/2019 5:24 AM EDT Narrative Resulting Agency Comment Spec In Lab Bill Shelton MD HEMATOLOGY ORDERAB LES [facility] [place] [address] * (ABNORMAL) Hemogram (12/09/2019 5:07 AM EDT) White Blood Cell 9.0 4.0 - 9.5 x10(3)/[facility] Red Blood Cell 5.23 4.58 - 5.54 x10(6)/[facility] Hemoglobin 10.2(L) 13.7 - [...] Platelet 256 145 - 357 x10(3)/mc L [facility] RDW Standard Deviation 39.6 36.0 - 45.0 fL [facility] RDW coefficient of variation 17.1(H) 11.4 - 13.8 % [facility] Mean Platelet Volume 9.8 7.6 - 12.9 fL [facility] NRBC% auto 0.0 % [facility] NRBC Absolute 0.000 0.000 - 0.000 x10(3)/mc L [facility] Blood specimen (specimen) 12/09/2019 5:07 AM EDT 12/09/2019 5:24 AM EDT Narrative Resulting Agency Comment Spec In Lab Bill Shelton MD HEMATOLOGY ORDERAB LES Performing Organization Address City/State/[facility] Co de Phone Number [facility] [place] [phone] * COVID-19 PCR (12/08/2019 10:20 PM EDT) [...] using the Simplexa COVID-19 Direct Assay by [employer] as authorized by the FDA issued Emergency [...] Department of Pathology and Laboratory Medicine at [facility], certified under the Clinical Laboratory Improvement Amendments [...] Information for Healthcare Professionals (https://www.cdc.gov/coronavirus/2019-ncov/hcp/index.html). SARS-CoV-2 Source FINAL INSPECTOR Swab [facility] Nasopharyngeal swab (specimen) 12/08/2019 10:20 PM EDT 12/08/2019 10:57 PM EDT Comment:Symptoms->Surveillan ce Narrative Resulting Agency Comment Spec In Lab Armen Simon MD MICROBIOLOGY - GEN ERAL ORDERABLES [facility] [place] [address] * CT Chest w Contrast (12/08/2019 8:54 [...] AL ORDERABLES [facility] [place] [address] * (ABNORMAL) Abscess/Wound Aspirate Culture (12/08/2019 8:30 [...] Sensitive Comment:Gentamicin i s not appropriate for Logan-therapy. Staphylococcus aureus Levofloxacin VITEK 2 METHOD Sensitive [...] METHOD Sensitive Tree Hodge MD MICROBIOLOGY - [facility] [place] [place] [address] * Blood culture (12/08/2019 4:11 PM EDT) Blood Culture No growth at 5 days. [facility] Blood specimen (specimen) 12/08/2019 4:11 PM EDT 12/08/2019 6:22 PM EDT Narrative Resulting Agency Comment Spec In Lab Portillo Trejo MD MICROBIOLOGY - BLOO D ORDERABLES [facility] [place] [address] * Scan, Peripheral Blood (12/08/2019 3:58 PM EDT) Plat estimate Normal [facility] RBC Morphology Abnormal [facility] Microcyte 1-5 /HPF [facility] Hypochromia Slight [facility] Polychromasia Present >5/HPF [facility] Target Cells 1-5 /HPF [facility] Blood specimen (specimen) 12/08/2019 3:58 PM EDT 12/08/2019 5:02 PM EDT Narrative Resulting Agency Comment Spec In Lab Bart CROWELL HEMATOLOGY ORDERABLE S [facility] [place] [address] * Aguilar Tube Hold (12/08/2019 3:58 PM EDT) Aguilar Hold Sample in lab. [facility] Blood specimen (specimen) Venous Draw / Unknown 12/08/2019 3:58 PM EDT 12/08/2019 5:03 PM EDT Bart CROWELL CHEMISTRY ORDERABLES [facility] [place] [address] * Gold Tube HOLD (12/08/2019 3:58 PM EDT) Gold Hold Sample in lab. [facility] Blood specimen (specimen) Venous Draw / Unknown 12/08/2019 3:58 PM EDT 12/08/2019 5:03 PM EDT Bart CROWELL CHEMISTRY ORDERABLES Performing Organization Address City/[facility]/ZIP Co de Phone Number [facility] [place] [address] * Blue Tube HOLD (12/08/2019 3:58 PM EDT) Pathologist [facility] Blue Hold Sample in lab. [facility] Blood specimen (specimen) Venous Draw / Unknown 12/08/2019 3:58 PM EDT 12/08/2019 5:03 PM EDT Bart CROWELL HEMATOLOGY ORDERABLE S Performing Organization Address [facility] [place] [address] * (ABNORMAL) Differential, Automated (12/08/2019 3:58 PM EDT) [facility] Neutrophil % 78.0 % [facility] Neutrophil Absolute 11.28(H) 1.70 - 6.10 x10(3)/mc L [facility] Lymph % 11.5 % [facility] Lymphocytes Abs 1.7 0.9 - 3.2 x10(3)/mc L [facility] Monocyte % 7.9 % [facility] Monocyte Abs 1.1(H) 0.3 - 0.9 x10(3)/mc L [facility] Eos % 0.7 % [facility] Eosinophils Abs 0.1 0.0 - 0.4 x10(3)/mc L [facility] Basophil % 0.6 % [facility] Baso Absolute 0.1 0.0 - 0.1 x10(3)/mc L [facility] Immature Gran % 1.30 % [facility] Comment: Immature granulocytes(IG's)percentage and absolute count will include metamyelocytes, myelocytes, and promyelocytes. Blood smears from CBCs yielding IG's will be scanned manually for concordance. If this scan disagrees with the automated IG or if promyelocytes are noted, a manual differential will be performed. Immature Gran Absolute 0.19(H) 0.00 - 0.04 x10(3)/[facility] LABORATORY Blood specimen (specimen) 12/08/2019 3:58 PM EDT 12/08/2019 5:02 PM EDT Narrative Resulting Agency Comment Spec In Lab Bart CROWELL HEMATOLOGY ORDERABLE S [facility] [place] [address] * (ABNORMAL) Hemogram (12/08/2019 3:58 PM EDT) White Blood Cell 14.5(H) 4.0 - 9.5 x10(3)/[facility] LAB[facility] Red Blood Cell 6.62(H) 4.58 - 5.54 x10(6)/[facility] Hemoglobin 12.9(L) 13.7 - 16.5 gm/dL [facility] Hematocrit 43.0 40.5 - 48.5 % [facility] Mean Cell Volume 65.0(L) 82.9 - 93.1 [facility] Mean Cell Hemoglobin 19.5(L) 27.5 - 32.1 pg [facility] Mean Cell Hemoglobin Concentration 30.0(L) 32.0 - 35.7 gm/dL [facility] Platelet 328 145 - 357 x10(3)/[facility] LAB[facility] RDW Standard Deviation 38.8 36.0 - 45.0 [facility] RDW coefficient of variation 18.6(H) 11.4 - 13.8 % [facility] Mean Platelet Volume 10.1 7.6 - 12.9 [facility] NRBC% auto 0.0 % [facility] NRBC Absolute 0.000 0.000 - 0.000 x10(3)/[facility] Blood specimen (specimen) 12/08/2019 3:58 PM EDT 12/08/2019 5:02 PM EDT Narrative Resulting Agency Comment Spec In Lab Bart CROWELL HEMATOLOGY ORDERABLE S Performing Organization Address [facility]/ZIP Co de Phone Number [facility] [place] [address] * (ABNORMAL) Sedimentation rate (12/08/2019 3:58 PM EDT) Pathologist [facility] Sedimentation Rate Automated >119(H) 2 - 37 [...] MD HEMATOLOGY ORDERABL ES Performing Organization Address [facility] Co de Phone Number [facility] [place] [address] * (ABNORMAL) CRP, acute inflammation (12/08/2019 3:58 PM EDT) [facility] C-Reactive Protein 134.3(H) <=4.9 mg/L [facility] Blood specimen (specimen) 12/08/2019 3:58 PM EDT 12/08/2019 5:02 PM EDT Narrative Resulting Agency Comment Spec In Lab Portillo Trejo MD CHEMISTRY ORDERABLE S Performing Organization Address [facility]/ZIP Co de Phone Number [facility] [place] [address] * (ABNORMAL) Basic Metabolic Panel (non-fasting) (12/08/2019 3:58 PM EDT) [facility] Signature Glucose 115 65 - 199 mg/dL [facility] [...] of body mass or the acutely ill. [email or web address] eGFR 107 >=60 mL/min/1. 73 m?? [facility] Comment: The eGFR was calculated using the CKD-EPI equation. As with all creatinine based estimates of kidney function, eGFR values calculated with the CKD-EPI equation are not accurate in patients with acute kidney failure, extremes of body mass or the acutely ill. [email or web address] Blood specimen (specimen) 12/08/2019 3:58 PM EDT 12/08/2019 5:02 PM EDT Narrative Resulting Agency Comment Spec In Lab Portillo Trejo MD CHEMISTRY ORDERABLE S [facility] [place] [address] documented in this encounter Visit Diagnoses Not [...] 2 g 250 mL/hr Vancomycin Level - [facility] Order Reminder NOT APPLICABLE, PER PHARMACY, Other, [...] Sun12/09/19 at 2100, Until Discontinued, Routine 1145 ([facility] Hold - Provider: Admin Adt - Reason: [...] RN)0934 (Given - Provider: Eva Prater RN)1145 ([facility] Hold - Provider: Admin Adt - Reason: Transfer to a Procedural area)134 ([facility] Unhold - Provider: Darren Bennett MD) acetaminophen [...] - Reason: Transfer to a Procedural area)1349 ([facility] Unhold - Provider: Judy Banks RN)184 (Given [...] Recovery (Recovery-Hospital Unit), Routine Vancomycin Level - [facility] Order Reminder(Linked Group 2) NOT APPLICABLE, PER [...] draw. documented in this encounter Care Teams Yolk Spray Drier Relationship Specialty Start Date End Date Christiana Moore APRN [address] [place] [address] PCP - General Family Medicine 09/26/19 documented as of this encounter
--- OUTSIDE RECORDS SUMMARY | 2024-01-25 00:32 | XMS_ITS | Encounter Summary ---
Author Organization Formerly [facility] [place] [address] Care Team Providers Care Boat Builder And Repairer Name Role Phone Christiana Moore RYAN Primary Care Provider [phone] Reason for Referral * Diagnostic Test (Routine) - Closed Specialty Diagnoses / Procedures Referred By Contac t Referred To Contact Radiology Diagnoses Type A malignant thymoma Procedures CT Chest w Contrast Jose Alvarez MD [facility] [place] [address] [facility] [place] [address] Referral ID Status Reason Start Date Expiration Date V isits Requested Visits Authorized [id number] Closed Specialty Service Requested 02/24/2020 08/23/2021 1 1 Reason for Visit * Reason Comments Cancer thymoma Follow-up wound check Encounter Details Date Type Department Care Team (Late st Contact Info) Description 02/24/2020 11:45 AM EST Office [place] [address] Jose Alvarez MD [facility] [place] [address] Type A malignant thymoma; Chest [...] Follow Up Note MD Fatou Nance PA-C [place], [place] [address] FAX: Pre Op Dx:??mediastinal mass ?? Post [...] questions Fatou Dong PA-C 02/24/2020 Thoracic Surgery [facility] I have seen the patient and [...] PM EDT Office [place] [address] Manjula Kitchen MD [facility] [address] documented as of this encounter Results * [...] who have questions please contact the health direct care professional that requested your imaging first. ? Electronically signed by: Ava Islas MD, [facility] ([phone]), at 10/19/2020 3:01 PM Narrative 10/19/2020 3:01 [...] sagittal reformatted images were generated. COMPARISON: 03/25/2020 [facility]. FINDINGS: Pulmonary parenchyma: Chain suture in [...] andsagittal reformatted images were generated. COMPARISON: 03/25/2020 [facility]. FINDINGS: Pulmonary parenchyma: Chain suture in [...] patients who have questions please contactthe health direct care professional that requested your imaging first. Jose Alvarez MD IMG CT ORDERABLES documented in this encounter Visit Diagnoses Diagnosis Type A malignant thymoma Chest wall abscess Cellulitis and abscess of trunk Open wound of right chest wall with complication, subsequent encounter Type A malignant thymoma documented in this encounter Care Teams Boat Builder And Repairer Relationship Specialty Start Date End Date Christiana Moore APRN [address] [place] [address] PCP - General Family Medicine 09/26/19 documented as of this encounter
--- OUTSIDE RECORDS SUMMARY | 2024-01-25 00:32 | XMS_ITS | Encounter Summary ---
Author Organization Formerly [facility] [place] [address] Care Team Providers Care Cpht Name Role Phone Oscar Christiana DAVIS Primary Care Provider [phone] Reason for Visit * Reason Comments Follow Up Surgery Encounter Details Date Type Department Care Team (Late st Contact Info) Description 12/11/2019 1:00 PM EDT Office [place] [address] Jose Alvarez MD [facility] [place] [address] Mediastinal mass; Chest wall abscess; Open wound [...] Outpatient Follow Up Note Jose Alvarez MD [place] [address] FAX: Pre Op Dx: mediastinal mass ?? [...] concerns Bella Arteaga APRN 12/11/2019 Thoracic Surgery [facility] I have seen the patient and [...] PM EDT Office [place] [address] Manjula Kitchen MD [facility] [place] [address] documented as of this encounter Visit Diagnoses Diagnosis Mediastinal mass Swelling, mass, or lump in chest Chest wall abscess Cellulitis and abscess of trunk Open wound of right chest wall with complication, subsequent encounter documented in this encounter Care Teams Cpht Relationship Specialty Start Date End Date Christiana Moore APRN [address] [place] [address] PCP - General Family Medicine 09/26/19 documented as of this encounter
--- OUTSIDE RECORDS SUMMARY | 2024-01-25 00:32 | XMS_ITS | Encounter Summary ---
Author Organization [facility] [place] [address] Care Team Providers Care Zmt Operator Name Role Phone Christiana Moore RYAN Primary Care Provider [phone] Reason for Visit * Auth/Cert Specialty Diagnoses / Procedures Referred By Contac t Referred To Contact Diagnoses Chest wall abscess Open wound of right chest wall with complication wound vac filled with puss Procedures EMERGENCY OBSVO Referral ID Status Reason Start Date Expiration Date Visits Re quested Visits Authorized [id number] 1 1 Encounter Details Date Type Department Care Team (Late st Contact Info) Description 12/09/2019 11:43 AM EDT Anesthesia [place] [address] Jesus Lozada MD [facility] [place] [address] Emmie Barcenas Anesthesia Record Procedure Summary Procedure [...] Procedure Summary Date: 12/09/19 Room / Location: [facility] OR [address] [place] [address] MAIN OR Anesthesia Start: 1143 Anesthesia Stop: 1324 Procedures: INCISION & DRAINAGE COMPLEX POSTOPERATIVE WOUND INFECTION (WRVU 2.3) (Right ) DEBRIDEMENT SKIN, SUBCU, MUSCLE, THORAX (WRVU 2.7) (Right Chest) Diagnosis: (chest wall abscess) Surgeon: Michael Li MD Responsible Provider: Jesus Lozada MD Anesthesia Type: general ASA Status: 2 All Anesthesia Providers: Anesthesiologist: Jesus Lozada MD BAND LINING BANDER: Quentin Aranda CRNA Student Nurse Shingle Catcher: Emmie Barcenas Vitals Value Taken Time BP 131/88 12/09/19 1415 Temp 36.4 ??C (97.5 ??F) 12/09/19 1415 Pulse 87 12/09/19 1419 Resp 18 12/09/19 1419 SpO2 95 % 12/09/19 1503 Pain Level 5 12/09/19 1403 Vitals shown include unvalidated device data. Patient Location: PACU/[facility] Level of Consciousness: Awake and Alert [...] BRONCHOSCOPY, DIAGNOSTIC (WRVU 2.78) performed by Quentin Calrin MD at [facility] OR ??? PRO DRAINAGE OF HEMATOMA/FLUID Right 11/09/2019 INCISION & DRAINAGE HEMATOMA, SEROMA OR FLD. COLLECTION, CHEST (WRVU 1.58) performed by Piyush Hobbs MD at [facility] MAIN OR ? ? PRO INJECTION ANES AGENT &/ STEROID INTERCOSTAL NERVE EA ADDL LEVEL Right 10/24/2019 NERVE BLOCK, INTERCOSTAL NERVE, MULTIPLE (WRVU 1.68) performed by Quentin Carlin MD at [facility] OR ??? PRO THORACOSCOPY WITH BIOPSY OF PLEURA Right 10/24/2019 THORACOSCOPY; WITH BIOPSY(IES) OF PLEURA (WRVU 4.58) performed by Quentin Carlin MD at [facility] OR ??? PRO THORACOTOMY WITH THERAPEUTIC WEDGE RESECTION EA ADDL Right 10/24/2019 @THORACOTOMY; W/THERAPEUTIC WEDGE RESECTION, EA ADD'L RESC, IPSILATERAL (WRVU 3) performed by Quentin Carlin MD at [facility] OR ??? PRO THORACOTOMY WITH THERAPEUTIC WEDGE RESECTION INITIAL Right 10/24/2019 @THORACOTOMY; W/ THERAPEUTIC WEDGE RESECTION , INITIAL (WRVU 15.75) performed by Quentin Carlin MD at [facility] OR ??? PRO THYMECTOMY, RADICAL MEDIAST DISSSEC Right 10/24/2019 @THYMECTOMY W/ RAD. MEDIASTINAL DISSECTION (WRVU 23.48) performed by Quentin Carlin MD at [facility] OR Social History Tobacco Use ??? Smoking [...] risks discussed with patient. Plan discussed with BAND LINING BANDER. PAT Clinic Note documented in this encounter Miscellaneous Notes * Addendum Note - Jesus Lozada MD - 12/09/2019 3:24 PM EDT Addendum created 12/09/19 1524 by Jesus Lozada MD Clinical Note Signed documented in this encounter Plan of Treatment Upcoming Encounters Date Type Department Care Team (Late st Contact Info) Description 02/08/2024 1:00 PM EDT Office [place] [address] Manjula Kitchen MD [facility] [place] [address] documented as of this encounter Visit Diagnoses [...] mg documented in this encounter Care Teams Zmt Operator Relationship Specialty Start Date End Date Christiana Moore APRN [address] [place] [address] PCP - General Family Medicine 09/26/19 documented as of this encounter
--- OUTSIDE RECORDS SUMMARY | 2024-01-25 00:32 | XMS_ITS | Encounter Summary ---
Author Organization [facility] [place] [address] Care Team Providers Care Honest John Rocket Crew Member Name Role Phone Oscar Christiana DAVIS Primary Care Provider [phone] Reason for Visit * Reason Comments Cancer Encounter Details Date Type Department Care Team (Late st Contact Info) Description 12/19/2019 1:00 PM EDT Office Visit [place] [address] Jose Alvarez MD [facility] [place] [address] Type A malignant thymoma; Chest wall abscess [...] Outpatient Follow Up Note Jose Alvarez MD [place] [address] FAX: Pre Op Dx:??mediastinal mass ?? Post [...] with any questions or concerns Bella Arteaga, BUSINESS TEST ANALYST 12/19/2019 Thoracic Surgery [facility] I have reviewed the AIR CONDITIONING UNIT ASSEMBLER's above history and I agree with the [...] I was the attending physician supervising the AIR CONDITIONING UNIT ASSEMBLER in the above care and was available for the entireprocedure. JOSE ALVAREZ MD documented in this encounter Plan of Treatment Upcoming Encounters Date Type Department Care Team (Late st Contact Info) Description 02/08/2024 1:00 PM EDT Office Visit [place] [address] Manjula Kitchen MD [facility] [place] [address] documented as of this encounter Visit Diagnoses Diagnosis Type A malignant thymoma Chest wall abscess Cellulitis and abscess of trunk documented in this encounter Care Teams Honest John Rocket Crew Member Relationship Specialty Start Date End Date Christiana Moore APRN [address] [place] [address] PCP - General Family Medicine 09/26/19 documented as of this encounter
--- OUTSIDE RECORDS SUMMARY | 2024-01-25 00:32 | XMS_ITS | Encounter Summary ---
Author Organization [facility] [place] [address] Care Team Providers Care Lens Silverer Name Role Phone Christiana Moore RYAN Primary Care Provider [phone] Reason for Referral * Diagnostic Test (Routine) - Closed Specialty Diagnoses / Procedures Referred By Contac t Referred To Contact Radiology Diagnoses Type A malignant thymoma Procedures CT Chest w Contrast Jose Alvarez MD [facility] [place] [address] [facility] [place] [address] Referral ID Status Reason Start Date Expiration Date V isits Requested Visits Authorized [id number] Closed Specialty Service Requested 10/19/2020 04/21/2022 1 1 Reason for Visit * Reason Comments Cancer Encounter Details Date Type Department Care Team (Late st Contact Info) Description 10/19/2020 1:15 PM EDT Office [place] [address] [facility] [place] [address] Type A malignant thymoma Social [...] EDT Thoracic Surgery Outpatient Follow Up Note [facility] [address] [place] [address] FAX: Pre Op Dx: mediastinal mass Post [...] takes occasional advil and will see a search developer next week. He denies nausea/vomiting, MARTI, chest [...] Up Note Jose Alvarez MD [place] [address] FAX: Pre Op Dx: mediastinal mass Post [...] takes occasional advil and will see a search developer next week. He denies nausea/vomiting, MARTI, chest [...] PM EDT Office [place] [address] [facility] [place] [address] documented as of this encounter Results * [...] have questions please contact the health rn wound care that requested your imaging first. ? [...] patients who have questions please contactthe health rn wound care that requested your imaging first. Jose Alvarez MD IMG CT ORDERABLES * (ABNORMAL) Creatinine (03/22/2021 1:01 PM EST) Creatinine 0.75(L) 0.80 - 1.50 mg/dL [facility] Est Glomerular Filtration Rate 96 >=60 mL/min/1. 73 m?? [facility] Comment: This patient? 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
--- OUTSIDE RECORDS SUMMARY | 2024-01-25 00:32 | XMS_ITS | Encounter Summary ---
Author Organization [facility] [place] [address] Care Team Providers Care Biophysics Teacher Name Role Phone Oscar Christiana DAVIS Primary Care Provider [phone] Reason for Visit * Reason Comments Cancer Follow-up Encounter Details Date Type Department Care Team (Late st Contact Info) Description 02/17/2020 1:45 PM EST Office Visit [place] [address] Jose Alvarez MD [facility] [place] [address] Type A malignant thymoma; Open wound of [...] Follow Up Note MD Fatou Nance PA-C [place] [address] FAX: Pre Op Dx:??mediastinal mass ?? Post [...] questions Fatou Dong PA-C 02/17/2020 Thoracic Surgery [facility] I have seen the patient [...] PM EDT Office [place] [address] Manjula Kitchen MD [facility] [place] [address] documented as of this encounter Visit Diagnoses Diagnosis Type A malignant thymoma Open wound of right chest wall with complication, subsequent encounter documented in this encounter Care Teams Biophysics Teacher Relationship Specialty Start Date End Date Christiana Moore APRN [address] [place] [address] PCP - General Family Medicine 09/26/19 documented as of this encounter
--- OUTSIDE RECORDS SUMMARY | 2024-01-25 00:32 | XMS_ITS | Encounter Summary ---
Author Organization [facility] [place] [address] Care Team Providers Care Pyrometer Operator Name Role Phone Oscar Christiana DAVIS Primary Care Provider Reason for Visit * Reason Comments Cancer Encounter Details Date Type Department Care Team (Late st Contact Info) Description 01/06/2020 12:30 PM EDT Office [place] [address] Jose Alvarez MD [facility] [place] [address] Type A malignant thymoma Social History Tobacco [...] Note MD Fatou Nance PA-C [place] [address] FAX: Pre Op Dx:??mediastinal mass ?? Post [...] questions Fatou Dong PA-C 01/06/2020 Thoracic Surgery [facility] I have seen the patient and reviewed [...] holding. Fatou Dong PA-C 01/06/2020 Thoracic Surgery [facility] ??I was the attending physician supervising the resident in the above care and participated in the dressing change. JOSE ALVAREZ MD documented in this encounter Plan of Treatment Upcoming Encounters Date Type Department Care Team (Late st Contact Info) Description 02/08/2024 1:00 PM EDT Office [place] [address] Manjula Kitchen MD [facility] [place] [address] documented as of this encounter Visit Diagnoses Diagnosis Type A malignant thymoma documented in this encounter Care Teams Pyrometer Operator Relationship Specialty Start Date End Date Christiana Moore APRN [address] [place] [address] PCP - General Family Medicine 09/26/19 documented as of this encounter
--- OUTSIDE RECORDS SUMMARY | 2024-01-25 00:32 | XMS_ITS | Encounter Summary ---
Author Organization [facility] [place] [address] Care Team Providers Care Shot Core Drill Operator Name Role Phone Christiana Moore APRN Primary Care Provider [phone] Reason for Referral * Diagnostic Test (Routine) - Closed Specialty Diagnoses / Procedures Referred By Contac t Referred To Contact Radiology Diagnoses Type A malignant thymoma Procedures CT Chest wo Contrast (Generic) Quentni Carlin MD [facility] [place] [address] [facility] [place] [address] Referral ID Status Reason Start Date Expiration Date V isits Requested Visits Authorized [id number] Closed Specialty Service Requested 03/24/2021 09/21/2022 1 1 Reason for Visit * Diagnostic Test (Routine) - Closed Specialty Diagnoses / Procedures Referred By Contac t Referred To Contact Radiology Diagnoses Type A malignant thymoma Procedures CT Chest wo Contrast (Generic) Quentin Carlin MD [facility] [place] [address] [facility] [place] [address] Referral ID Status Reason Start Date Expiration Date V isits Requested Visits Authorized [id number] Closed Specialty Service Requested 03/24/2021 09/21/2022 1 1 Encounter Details Date Type Department Care Team (Latest Contact Info) Description 10/17/2022 9:00 AM EDT - 10/17/2022 11:59 PM EDT [place] [address] Quentin Carlin MD [facility] DR THORACIC SURGERY [place] [id number] Type A malignant thymoma Discharge Disposition: Home [...] PM EDT Office [place] [address] Manjula Kitchen MD [facility] [place] [address] documented as of this encounter Procedures Procedure [...] have questions please contact the health healthcare administration intern that requested your imaging first. ? Electronically signed by: Todd Pichardo MD, [facility] ??([phone]), at 10/17/2022 12:27 PM Narrative 10/17/2022 12:27 [...] who have questions please contactthe health healthcare administration intern that requested your imaging first. Quentin Carlin MD IMG CT ORDERABLES documented in this encounter Visit Diagnoses Diagnosis Type A malignant thymoma documented in this encounter Care Teams Shot Core Drill Operator Relationship Specialty Start Date End Date Christiana Moore APRN [address] [place] [address] PCP - General Family Medicine 09/26/19 documented as of this encounter
--- OUTSIDE RECORDS SUMMARY | 2024-01-25 00:32 | XMS_ITS | Encounter Summary ---
Author Organization [facility] Address [facility] [place] [address] Care Team Providers Care Junior Project Coordinator Name Role Phone Christiana Moore APRN Primary Care Provider [phone] Reason for Visit * Reason Comments Wound Check Encounter Details Date Type Department Care Team (Late st Contact Info) Description 03/30/2020 9:00 AM EST Office [place] [address] Jose Alvarez MD [facility] [place] [address] Type A malignant thymoma; Chest wall abscess; [...] Outpatient Follow Up Note Jose Alvarez MD [place] [address] FAX: Pre Op Dx:??mediastinal mass ?? Post [...] concerns JOSE ALVAREZ MD 03/30/2020 Thoracic Surgery [facility] * Clarissa Murphy, RN - 03/30/2020 [...] PM EDT Office [place] [address] Manjula Kitchen MD [facility] [place] [address] documented as of this encounter Visit Diagnoses Diagnosis Type A malignant thymoma Chest wall abscess Cellulitis and abscess of trunk Open wound of right chest wall with complication, subsequent encounter documented in this encounter Care Teams Junior Project Coordinator Relationship Specialty Start Date End Date Christiana Moore APRN [address] [place] [address] PCP - General Family Medicine 09/26/19 documented as of this encounter
--- OUTSIDE RECORDS SUMMARY | 2024-01-25 00:32 | XMS_ITS | Encounter Summary ---
Author Organization [facility] [place] [address] Care Team Providers Care Retail Equipment Associate Name Role Phone Christiana Moore RYAN Primary Care Provider [phone] Encounter Details Date Type Department Care Team (Latest Contact Info) Description 03/22/2021 1:15 PM EST Laboratory Appointment Lab [address] [place] [address] Type A malignant thymoma Social History Tobacco [...] PM EDT Office [place] [address] Manjula Kitchen MD [facility] [place] [address] documented as of this encounter Procedures Procedure Name Priority Date/Time Associated Diagnosis Comments HC VENIPUNCTURE STAT 03/22/2021 1:01 PM EST Type A malignant thymoma documented in this encounter Results * (ABNORMAL) Creatinine (03/22/2021 1:01 PM EST) Creatinine 0.75(L) 0.80 - 1.50 mg/dL [facility] Est Glomerular Filtration Rate 96 >=60 mL/min/1. 73 m?? [facility] Comment: This patient? s [...] In Lab Quentin Carlin MD CHEMISTRY ORDERABLES [facility] [place] [address] documented in this encounter Visit Diagnoses Diagnosis Type A malignant thymoma documented in this encounter Care Teams Retail Equipment Associate Relationship Specialty Start Date End Date Christiana Moore APRN [address] [place] [address] PCP - General Family Medicine 09/26/19 documented as of this encounter
--- OUTSIDE RECORDS SUMMARY | 2024-01-25 00:32 | XMS_ITS | Encounter Summary ---
Author Organization [facility] [address] Care Team Providers Care Newspaper Or Periodical Editor Name Role Phone Christiana Moore APRN Primary Care Provider Reason for Visit * Reason Onset Date Comments Other 03/26/2020 Encounter Details Date Type Department Care Team (Late st Contact Info) Description 03/26/2020 Telephone [place] [address] Monica Price, RN Other Social History Tobacco [...] R lung on10/24/2019 ED visit 03/25 at [facility] with CT scan of chest for possible [...] seen in the ED last night at [facility] and had a CT scan completed. They started him on Augmentin and she is aware. SABAA will visiting today and will assess dressing and changes three times a day. She was grateful for the update. documented in this encounter Plan of Treatment Upcoming Encounters Date Type Department Care Team (Late st Contact Info) Description 02/08/2024 1:00 PM EDT Office [place] [address] Manjula Kitchen MD [facility] [place] [address] documented as of this encounter Visit Diagnoses Not on filedocumented in this encounter Care Teams Newspaper Or Periodical Editor Relationship Specialty Start Date End Date Christiana Moore APRN [address] [place] [address] PCP - General Family Medicine 09/26/19 documented as of this encounter
--- OUTSIDE RECORDS SUMMARY | 2024-01-25 00:32 | XMS_ITS | Encounter Summary ---
Author Organization [facility] [place] [address] Care Team Providers Care Microfilm Equipment Inspector Name Role Phone Christiana Moore APRN Primary Care Provider [phone] Encounter Details Date Type Department Care Team (Late st Contact Info) Description 12/11/2019 Telephone Thoracic Surgery at [place] [phone] Monica Price RN Social History Tobacco Use [...] PM EDT Office [place] [address] Manjula Kitchen MD [facility] [address] documented as of this encounter Visit Diagnoses Not on filedocumented in this encounter Care Teams Microfilm Equipment Inspector Relationship Specialty Start Date End Date Christiana Moore APRN [address] [place] [address] PCP - General Family Medicine 09/26/19 documented as of this encounter
--- OUTSIDE RECORDS SUMMARY | 2024-01-25 00:32 | XMS_ITS | Encounter Summary ---
Author Organization [facility] [place] [address] Care Team Providers Care Trust Administrator Name Role Phone Oscar Christiana DAVIS Primary Care Provider [phone] Reason for Visit * Reason Comments Wound Check Encounter Details Date Type Department Care Team (Late st Contact Info) Description 04/27/2020 11:00 AM EST Office [place] [address] Jose Alvarez MD [facility] [place] [address] Type A malignant thymoma; Open wound of [...] Follow Up Note MD Fatou Nance PA-C [place], [place] [address] FAX: Pre Op Dx:??mediastinal mass ?? Post [...] questions Fatou Dong PA-C 04/27/2020 Thoracic Surgery [facility] I have seen the patient [...] PM EDT Office [place] [address] Manjula Kitchen MD [facility] [place] [address] documented as of this encounter Visit Diagnoses Diagnosis Type A malignant thymoma Open wound of right chest wall with complication, subsequent encounter documented in this encounter Care Teams Trust Administrator Relationship Specialty Start Date End Date Christiana Moore APRN [address] [place] [address] PCP - General Family Medicine 09/26/19 documented as of this encounter
--- OUTSIDE RECORDS SUMMARY | 2024-01-25 00:32 | XMS_ITS | Encounter Summary ---
Author Organization [facility] [place] [address] Care Team Providers Care Heavy Equipment Supervisor Name Role Phone Christiana Moore RYAN Primary Care Provider [phone] Encounter Details Date Type Department Care Team (Late st Contact Info) Description 08/14/2022 [place] [phone] Ana Rosa Vazquez Social History Tobacco Use [...] PM EDT Office [place] [phone] Manjula Kitchen MD [facility] [place] [address] documented as of this encounter Visit Diagnoses Not on filedocumented in this encounter Care Teams Heavy Equipment Supervisor Relationship Specialty Start Date End Date Christiana Moore APRN [address] [place] [address] PCP - General Family Medicine 09/26/19 documented as of this encounter
--- OUTSIDE RECORDS SUMMARY | 2024-01-25 00:32 | XMS_ITS | Encounter Summary ---
Author Organization [facility] [place] [address] Care Team Providers Care Logistics Tech Name Role Phone Christiana Moore RYAN Primary Care Provider [phone] Reason for Referral * Diagnostic Test (STAT) - Closed Specialty Diagnoses / Procedures Referred By Contac t Referred To Contact Radiology Diagnoses Chest wall abscess Procedures CT Chest w Contrast Todd Alvarez, PA [facility] [place] [place] [address] [facility] [place] [address] Referral ID Status Reason Start Date Expiration Date V isits Requested Visits Authorized [id number] Closed Specialty Service Requested 03/14/2023 09/12/2024 1 1 Reason for Visit * Reason Comments Follow-up Cancer Thymoma * Auth/Cert Specialty Diagnoses / Procedures Referred By Contac t Referred To Contact Diagnoses Complicated wound infection Procedures ER MICAELAI Jose Alvarez MD [facility] [place] [address] [facility] Referral ID Status Reason Start Date Expiration Date Visits Re quested Visits Authorized [id number] 1 1 Encounter Details Date Type Department Care Team (Late st Contact Info) Description 03/14/2023 11:00 AM EST Office [place] [address] Jose Alvarez MD [facility] [place] [address] Chest wall abscess (Primary Dx); Type A [...] Outpatient Consultation Note MD Todd Nance PA-C [place], [place] [address] Pre Op Dx: Mediastinal Mass Post Op [...] Dr. Alvarez. SOCRATES Rao 03/14/2023 Thoracic Surgery [facility] I have reviewed the PA/resident's above history and I agree with the details as written. The assessment and plan were formulated in discussion with me and I agree with them as documented. JOSE ALVAREZ MD documented in this encounter Plan of Treatment Upcoming Encounters Date Type Department Care Team (Late st Contact Info) Description 02/08/2024 1:00 PM EDT Office [place] [address] Manjula Kitchen MD [facility] [place] [address] documented as of this encounter Procedures Procedure [...] have questions please contact the health manager primary care that requested your imaging first. ? [...] who have questions please contactthe health manager primary care that requested your imaging first. Electronically signed by: Jing Hudson MD, [facility] ([phone]), at 03/14/2023 5:36 PM Jose Alvarez MD IMG CT ORDERABLES * Basic Metabolic Panel (non-fasting) (03/14/2023 1:00 PM EST) Glucose 118 65 - 199 mg/dL [facility] Comment:Diabetes: >=200 mg/d L plus symptoms Blood Urea Nitrogen 13 10 - 20 mg/dL [facility] Creatinine 0.98 0.80 - 1.50 mg/dL [facility] Sodium 138 135 - 145 mmol/L [facility] Potassium 4.5 3.5 - 5.0 mmol/L [facility] Comment: Please note: ??Patients with WBC >100,000 may have falsely elevated Potassium levels. ??For accurate Potassium quantification in these patients send serum separator tube (gold top) for subsequent determinations. ??Contact the Clinical Chemistry Laboratory if there are any questions. Chloride 101 98 - 107 mmol/L [facility] Carbon Dioxide 26 22 - 31 mmol/L [facility] Anion Gap 11 5 - 15 mmol/L [facility] Calcium 9.5 8.5 - 10.5 mg/dL [facility] Est Glomerular Filtration Rate 84 >=60 mL/min/1. 73 m?? [facility] Comment: This patient's estimated GFR [...] Alvarez MD CHEMISTRY ORDERABLES Performing Organization Address [facility] Co de Phone Number [facility] [place] [address] * Anaerobic Culture (03/14/2023 12:30 PM EST) Anaerobic Culture No anaerobic organisms isolated [facility] Cyst Fluid 03/14/2023 12:3 0 PM EST 03/14/2023 1:49 PM EST Comment:Right posterior ches t wall cyst/abscess fluid Narrative Resulting Agency Comment Spec In Lab Jose Alvarez MD MICROBIOLOGY - GENER AL ORDERABLES Performing Organization Address [facility] [place] [address] * (ABNORMAL) Body Fluid Culture, Aerobic (03/14/2023 12:30 PM EST) Body Fluid Culture Few Staphylococcus aureus : two morphologies(A) [facility] Gram Stain Cytocentrifuge Gram Stain performed Neutrophils seen Rare Gram Positive Cocci seen (A) [facility] Organism Staphylococcus aureus(A) [facility] Organism Staphylococcus aureus(A) [facility] Organism Gram Positive Cocci(A) [facility] Cyst Fluid 03/14/2023 12:3 0 PM EST 03/14/2023 1:49 PM EST Comment:Right posterior ches t wall cyst/abscess fluid Narrative Resulting Agency Comment Spec In Lab Organism Antibiotic Method Susceptibility Staphylococcus aureus Clindamycin VITEK 2 METHOD Sensitive Staphylococcus aureus Erythromycin VITEK 2 METHOD Sensitive Staphylococcus aureus Gentamicin VITEK 2 METHOD Sensitive Comment:Gentamicin i s not appropriate for [place]-therapy. Staphylococcus aureus Oxacillin VITEK 2 METHOD Sensitive [...] Sensitive Comment:Gentamicin i s not appropriate for [place]-therapy. Staphylococcus aureus Oxacillin VITEK 2 METHOD Sensitive [...] METHOD Sensitive Jose Alvarez MD MICROBIOLOGY - [place] [place] [address] documented in this encounter Visit Diagnoses Diagnosis Chest wall abscess- Primary Cellulitis and abscess of trunk Type A malignant thymoma Open wound of right chest wall with complication, subsequent encounter Chest wall abscess Cellulitis and abscess of trunk documented in this encounter Care Teams Logistics Tech Relationship Specialty Start Date End Date Christiana Moore APRN [address] [place] [address] PCP - General Family Medicine 09/26/19 documented as of this encounter
--- OUTSIDE RECORDS SUMMARY | 2024-01-25 00:32 | XMS_ITS | Encounter Summary ---
Author Organization [facility] [place] [address] Care Team Providers Care Job Checker Name Role Phone Christiana Moore RYAN Primary Care Provider [phone] Reason for Visit * Reason Onset Date Comments Other 01/06/2020 Encounter Details Date Type Department Care Team (Late st Contact Info) Description 01/06/2020 Telephone [place] [address] Monica Price RN Other Social [...] 3:39 PM EDT [facility] - [phone] Spoke with EVER Boggs Wound Vac removal on Sunday then wet to dry dressings twice a day. She was grateful for the information documented in this encounter Plan of Treatment Upcoming Encounters Date Type Department Care Team (Late st Contact Info) Description 02/08/2024 1:00 PM EDT Office [place] [address] Manjula Kitchen MD [facility] [place] [address] documented as of this encounter Visit Diagnoses Not on filedocumented in this encounter Care Teams Job Checker Relationship Specialty Start Date End Date Christiana Moore APRN [address] [place] [address] PCP - General Family Medicine 09/26/19 documented as of this encounter
--- OUTSIDE RECORDS SUMMARY | 2024-01-25 00:33 | XMS_ITS | Encounter Summary ---
[place] [address] Care Team Providers Care Sales And Business Development Manager Name Role Phone Crhistiana Moore APRN Primary Care Provider [phone] Reason for Visit * Reason Onset Date Comments Other 12/04/2019 wound vac Encounter Details Date Type Department Care Team (Late st Contact Info) Description 12/04/2019 Telephone [place] [phone] Monica Price, RN Other (wound vac) Social [...] AM EDTSummary: Wound Vac machine TC to [facility] wound vac company Spoke with Francisco, Mr. [...] machine and cartridges. He is aware that [facility] was contacted and that he will be receiving a phone call from [facility] this morning to replace his device. HE was grateful for the follow up call. He stated I just keep getting the error messages and put a new cartridge in or shut the machine off and turn it back on again. It is getting frustrating and explained that a new machine may do the trick. HE also stated that he called [facility] to report the issues with the machine and was never called back. HE knows to call with any questions or concerns. TC back from Mr. Grzegorz Lantigua is stating that the original incision toward the bottom has increased pain and swelling noted. Photo was sent via tagga message Discussed with Dr. Carlin. No swelling [...] PM EDT Office [place] [address] Manjula Kitchen MD [facility] [place] [address] documented as of this encounter Visit Diagnoses Not on filedocumented in this encounter Care Teams Sales And Business Development Manager Relationship Specialty Start Date End Date Christiana Moore APRN [address] [place] [address] PCP - General Family Medicine 09/26/19 documented as of this encounter
--- OUTSIDE RECORDS SUMMARY | 2024-01-25 00:33 | XMS_ITS | Encounter Summary ---
Author Organization [facility] [place] [address] Care Team Providers Care Commercial Engineer Name Role Phone Christiana Moore APRN Primary Care Provider Encounter Details Date Type Department Care Team (Late st Contact Info) Description 12/04/2019 Orders Only [place] [phone] Bella Arteaga APRN [facility] [place] [address] Social History Tobacco Use Types Packs/Day Years [...] PM EDT Office [place] [phone] Manjula Kitchen MD [facility] [place] [address] documented as of this encounter Visit Diagnoses Not on filedocumented in this encounter Care Teams Commercial Engineer Relationship Specialty Start Date End Date Christiana Moore APRN [address] [place] [address] PCP - General Family Medicine 09/26/19 documented as of this encounter
--- OUTSIDE RECORDS SUMMARY | 2024-01-25 00:33 | XMS_ITS | Encounter Summary ---
Author Organization [facility] Address [facility] [place] [address] Care Team Providers Care Licensing Coordinator Name Role Phone Christiana Moore RYAN Primary Care Provider [phone] Reason for Visit * Reason Comments Wound Check * Auth/Cert Specialty Diagnoses / Procedures Referred By Contac t Referred To Contact Diagnoses Chest wall abscess Cellulitis of back except buttock Procedures ER IPI Admit Referral ID Status Reason Start Date Expiration Date Visits Re quested Visits Authorized [id number] 1 1 Encounter Details Date Type Department Care Team (Latest Contact Info) Description 11/09/2019 10:25 AM EDT - 11/14/2019 3:13 PM EDT Hospital Encounter [address] [place] [address] Armen Mckeon MD [facility] [place] [address] Robert Brambila MD [facility] [place] [address] Piyush Rojo MD [facility] [place] [address] Cellulitis of back except buttock; Chest wall [...] in this encounter Discharge Summaries * Bella Aretaga APRN - 11/14/2019 10:54 AM EDT Images [...] Tree Lantigua was admitted to [facility] on 11/09/2019 via the Same Day Program. [...] a nurse in the Thoracic Clinic at [phone]. After hours or on weekends or holidays please call: [phone] and ask to speak to the Thoracic [...] the Thoracic Clinic or the Thoracic Surgeon machine container washer after hours. We are unable to refill [...] place, such as a locked cabinet or [employer]. ?? Unused opioids (oxycodone, hydromorphone/Dilaudid, morphine, fentanyl, [...] 10/26/2019 [place] PDMP Query Date 11/14/2019 10/26/2019 Tere Lantigua is being prescribed a prescription opioid [...] AM Bella Arteaga APRN Thoracic Surgery at [facility] Arrive at: Bottom Buffer Area [phone] Future Orders Complete By Expires Referral to Home Health - at DISCHARGE [UUB3832 CPT(R)] As directed Process Instructions: Scheduling Instructions: Comments: DOCUMENTATION FOR VNA SERVICES (INCLUDING THOSE PATIENTS WITH MEDICARE COVERAGE REQUIRING HOME VNA SERVICES AND/OR HOSPICE SERVICES) PATIENT'S LOCATION: Tree Lantigua [address] [place] [id number] (home) Cell: Telephone Information: Skilled Trades Teacher's Name: Self In discussion with the attending physician, it is certified that this patient is under their care and that they, or a Nurse Practitioner,Clinical Nurse specialist or Physician Field Sampling Technician who is working directly with them, had [...] change VAC dressing. HOME HEALTH CARE AGENCY: [facility] PHONE: [phone] FAX: [phone] Start of care: 24 to 48 hours [...] Moore APRN [address] / [place] [address] All [facility] agencies which cover the area of patient's residence have been reviewed, either verbally carmel writing, and patient/family have chosen the home health care agency noted Questions: Agency name and contact information: [facility] Patient location post discharge: Home What services are requested: Registered Nurse Start date: Responsible MD post discharge contact info: PCP Provider Contact Information: Primary Care Provider: Christiana Moore APRN [phone] Discharge References/Attachments: Discharge References/Attachments None For questions regarding this document or issues relating to this hospitalization on the Thoracic Surgery Service, please contact Dr. Alvarez's office at . Signed: Bella Arteaga APRN 11/14/2019 Thoracic Surgery [facility] CC: PCP: Christiana Moore APRN Referring: [...] a nurse in the Thoracic Clinic at [phone]. After hours or on weekends or holidays please call: [phone] and ask to speak to the Thoracic [...] the Thoracic Clinic or the Thoracic Surgeon machine container washer after hours. We are unable to refill [...] 3:13 PM EDT OFFICE OF CARE MANAGEMENT Washerette Machine Operator Final DISCHARGE NOTE: Discussed Plan for discharge with primary team and pt's family. Plan for Discharge:Home with VNA Homecare services provided by: [facility] For wound vac changes Homecare orders [...] a copy of this letter. to drive Washerette Machine Operator to follow until discharged if any new needs arise. Kassie Marie RNCM Phone [phone] Pager: # [phone] * Shannan Latif RN - 11/14/2019 2:11 [...] ; Age: 1 1955; 64 y.o. Room/Bed: [address] [place] [address] Today's Date: 11/14/19 ID: Tree Lantigua is [...] Nilo Larry 11/14/2019 Thoracic Surgery Team pager [phone] * Todd Alvarez PA - 11/13/2019 9:49 AM EDT [facility] Department of Thoracic Surgery Inpatient Progress Note Patient Name: Tree Lantigua Patient : 1955 Patient Patient Location: [address] [place] [address] Attending Surgeon: ARMEN MCKEON REED MILLINGTON, TIMOTHY [...] to Hosp-Admission (Current) from 11/09/2019 in 4 [facility] Admission (Discharged) from 10/24/2019 in 3 [facility] Weight 77.1 kg [...] Micro: OR culture 11/10/2019 Abscess/Wound Aspirate Culture [[id number]] (Abnormal) Collected: 11/10/19 0025 Lab Status: Preliminary [...] Sensitive 1 Gentamicin is not appropriate for [place]-therapy. 2 Penicillin resistant, Nafcillin susceptible Staphylococci are [...] SOCRATES Rao 11/13/2019 Thoracic Surgery Service Pager [phone] * Nilo Larry - 11/13/2019 6:09 AM [...] Nilo Jarrett 11/13/2019 Thoracic Surgery Team pager #[phone] * Flakita Castro RN - 11/12/2019 7:00 [...] Discharge planning ) Service Thoracic Pager # [phone] e-DH reviewed. Report received from [facility] Patient plan of care discussed with Team and Nursing to assessment for continuing care and discharge needs. [facility]: 3 DECISION MAKER: Attempt Cardiopulmonary Resuscitation - Inpatient, <no information> Ongoing Issues: Needs wound vac and VNA plan is to change vac at bedside on Sunday and d/c after. [facility] : ( RN, ) Barriers to Discharge: Wound Vac approval All paperwork sent to [facility] rep. Still waiting for wound measurements / team notified Family Concerns: None at this time Anticipate Transport at time of discharge: Home with wound vac via family car Plan: CM will continue to follow for coordination of care and to facilitate discharge planning. Kassie Marie RN Pager # [phone] The patient has been provided a list of Home Health Agencies/DME vendors which serve their preferred geographic area. A letter describing our affiliations was reviewed with them and they were educated about their right to choose where referrals are placed.. Patient requests referral to [facility] PHONE: [phone] FAX: [phone] Expected date of discharge: 11/14/19 Referral routed to the Glaze Maker for matching with agency/vendor and to provide any required information. * Benedicto Cameron PA - 11/12/2019 8:45 AM EDT [facility] Department of Thoracic Surgery Inpatient Progress Note Patient Name: Tree Lantigua Patient : 1955 Patient Patient Location: [facility]/419-B Attending Surgeon: ARMEN MCKEON, PIYUSH SHAH [...] to Hosp-Admission (Current) from 11/09/2019 in 4 [facility] Admission (Discharged) from 10/24/2019 in 3 [facility] Weight 77.1 kg [...] Alvarez/SOCRATES Albarran 11/12/2019 Thoracic Surgery Service Pager [phone] * Nilo Larry - 11/12/2019 6:07 AM [...] Nilo Larry 11/12/2019 Thoracic Surgery Team pager #[phone] * Kassie Marie RN - 11/11/2019 3:41 PM EDT Office of Care Management (OCM /Caremanger (CM)/ Discharge planning ) Service Thoracic Pager # [phone] e-DH reviewed. Report received from IDDRs Patient plan of care discussed with Team and Nursing to assessment for continuing care and discharge needs. [facility]: 2 DECISION MAKER: Attempt Cardiopulmonary Resuscitation - Inpatient, <no information> Ongoing Issues: Wet to dry dressing , Chad drain removed , PO pain meds awaiting culture results Current Referral in place:None Barriers to Discharge: Watch for wound vac will need VNA if wound vac placed Family Concerns: None at this time / [facility] VNA is VNA of Choice Anticipate Transport at time of discharge: family Plan: CM will continue to follow for coordination of care and to facilitate discharge planning. Kassie Marie RN Pager # [phone] * Benedicto Cameron PA - 11/11/2019 8:31 AM EDT [facility] Department of Thoracic Surgery Inpatient Progress Note Patient Name: Tree Lantigua Patient : 1955 Patient Patient Location: [address] [place] [address] Attending Surgeon: ARMEN MCKEON REED MILLINGTON, TIMOTHY [...] to Hosp-Admission (Current) from 11/09/2019 in 4 [facility] Admission (Discharged) from 10/24/2019 in 3 [facility] Weight 77.1 kg [...] RNA Not Detected Not Detected SARS-CoV-2 Source OUTBOUND TELEMARKETING REPRESENTATIVE Swab Abscess/Wound Aspirate Culture Specimen: Chest; Abscess [...] SOCRATES Samuels 11/11/2019 Thoracic Surgery Service Pager [phone] * Nilo Larry - 11/11/2019 7:44 AM EDT Thoracic Surgery Inpatient Progress Note Patient Name: Tree BRINK; Age: 1 1955; 64 y.o. Room/Bed: [address] [place], [place] [address]B Today's Date: 11/11/19 ID: Tree Lantigua is [...] Nilo Larry 11/11/2019 Thoracic Surgery Team pager [phone] * Benedicto Cameron PA - 11/10/2019 6:58 PM EDT [facility] Department of Thoracic Surgery Inpatient Progress Note Patient Name: Tree Lantigua Patient : 1955 Patient Patient Location: [address] [place] [address] Attending Surgeon: ARMEN MCKEON REED MILLINGTON, TIMOTHY [...] to Hosp-Admission (Current) from 11/09/2019 in 4 [facility] Admission (Discharged) from 10/24/2019 in 3 [facility] Weight 77.1 kg [...] RNA Not Detected Not Detected SARS-CoV-2 Source OUTBOUND TELEMARKETING REPRESENTATIVE Swab Abscess/Wound Aspirate Culture Specimen: Chest; Abscess [...] SOCRATES Castle 11/10/2019 Thoracic Surgery Service Pager [phone] * Nilo Larry - 11/10/2019 7:00 AM [...] Nilo Larry 11/10/2019 Thoracic Surgery Team pager [phone] * Katya Ortiz MD - 11/10/2019 5:59 [...] RNA Not Detected Not Detected SARS-CoV-2 Source OUTBOUND TELEMARKETING REPRESENTATIVE Swab Physical Exam Gen: A0x3, NAD, resting comfortably CVS: RRR, no murmurs/rubs/gallops Resp: CTAB, breathing comfortably on RA, dressing in place, c/d/i, has R [address] to continuoussuction -20, no airleak Abd: [...] MD - 11/09/2019 1:35 PM EDT [facility] Department of Surgery Consult Note ? [...] history that includes Thymectomy, Radical Mediast Disssec (42342) (Right, 10/24/2019); Bronchoscopy, Diagnostic (70065) (N/A, 10/24/2019); Thoracotomy With Therapeutic Wedge Resection Initial (Right, 10/24/2019); Injection Anes Agent &/ Steroid Intercostal Nerve Ea Addl Level (05468) (Right, 10/24/2019); Thoracotomy With Therapeutic Wedge Resection [...] any questions regarding this consult, please page [phone]. ?? Sabine Navarrete MD/S PGY2 [phone] 11/09/2019 [...] PM EDT Clinical Pharmacist Note-Vancomycin Tree Lantigua [id number] Tree Lantigua is a 64 y.o. [...] have. Alternately, during off-hours you may call [phone] to contact a pharmacist. YEN BUSH [facility] Pager [phone] * Plan of Care - Becca Wolfe [...] 30 Days: Yes was here on 10/25/19 [facility] admits in last 30 days. Anticipated Length Of Stay (If known): Vs TBD Current Decision-Making Capacity: Patient is A&Ox4 Has current decision making capacity. Advance Care Planning: Attempt Cardiopulmonary Resuscitation - Inpatient No AD in [facility]. If AD's have not been completed would be surrogate decision maker per [place] surrogate decision making law. Any patient receiving care at [facility] must abide by [place] law. The hierarchy for surrogate decision making [...] (i) The agent with financial power of estate attorney or a conservator appointed in accordance [...] has no concerns about navigating the home [address] [place] [address] Social & Family Supports/Community Resources: Family Extended Emergency Contact Information Primary Emergency Contact: Lillian Tyson Address: [address] [place] [address] Mobile Relation: Spouse Health/Prescription Coverage: Primary Insurance: [employer] MANAGED MEDICARE Secondary Insurance: N/A Prescription Coverage: Yes Preferred Pharmacy: [id number] AT [facility] [address] [address] Other: none Primary Care Provider: Christiana Moore APRN [phone] Patient/Caregiver Goals of Treatment: Deferred Potential Needs for Transition of Care: Rehab/SNF: None anticipated Home Health: None anticipated ( [facility] ) DME: None anticipated Dialysis: None [...] of care planning. Kassie Marie RN CM Washerette Machine Operator Pager # [phone] * Plan of Care - Felicia Vaca [...] (Interventions Implemented as Appropriate) 11/09/19 2100 11/09/19 7355 Veira Fall Risk History of Falling 0 -- [...] Operative Note Patient Name: Tree Lantigua : [id number] MR#: [id number] Case Date: 11/09/2019 - 11/10/2019 Surgeon: Surgeon(s) [...] site opened. Cavity thoroughly irrigated with pulse manager custom. 19F Chad drain left in the pleural [...] Rojo MD - 11/10/2019 12:58 AM EDT [facility] Operative Note Patient Name: Tree Lantigua : [id number] MR#: [id number] Case Date: 11/09/2019 - 11/10/2019 Surgeon: Surgeon(s) [...] irrigated with normal saline using the pulse manager custom. A previous chest tube site was anesthetized [...] PM EDT Office [place] [address] Manjula Kitchen MD [facility] [place] [address] documented as of this encounter Procedures Procedure [...] 12:25 AM EDT I&D Hematoma Seroma/Fluid Collection (20330) 11/09/2019 11:53 PM EDT right chest abscess, pleural effusion RAPID COVID-19 PCR ([facility]) STAT 11/09/2019 7:57 PM EDT INCISION [...] below. ? Electronically signed by: Maurilio Mccartney [facility] ([phone]), at 11/12/2019 8:35 AM Narrative 11/12/2019 8:35 [...] number below. Electronically signed by: Maurilio Mccartney [facility]([phone]), at 11/12/2019 8:35 AM Piyush Rojo MD IMG DX ORDERABLE S * Phosphorus (11/12/2019 5:42 AM EDT) Phosphorus 3.9 2.5 - 4.5 mg/dL [facility] Blood specimen (specimen) 11/12/2019 5:42 AM EDT 11/12/2019 5:48 AM EDT Narrative Resulting Agency Comment Spec In Lab Piyush Rojo MD CHEMISTRY ORDERA BLES [facility] [place] [address] * Magnesium (11/12/2019 5:42 AM EDT) Magnesium 0.84 0.69 - 1.07 mmol/L [facility] Blood specimen (specimen) 11/12/2019 5:42 AM EDT 11/12/2019 5:48 AM EDT Narrative Resulting Agency Comment Spec In Lab Piyush Rojo MD CHEMISTRY ORDERA BLES Performing Organization Address City/[facility]/ZIP Co de Phone Number [facility] [place] [address] * (ABNORMAL) Hemogram (11/12/2019 5:42 AM EDT) White Blood Cell 10.3(H) 4.0 - 9.5 x10(3)/[facility] Red Blood Cell 6.27(H) 4.58 - 5.54 x10(6)/mc L [facility] Hemoglobin 12.3(L) 13.7 - 16.5 gm/dL [facility] Hematocrit 40.8 40.5 - 48.5 % [facility] Mean Cell Volume 65.1(L) 82.9 - 93.1 [facility] Mean Cell Hemoglobin 19.6(L) 27.5 - 32.1 [facility] Mean Cell Hemoglobin Concentration 30.1(L) 32.0 - 35.7 gm/dL [facility] Platelet 498(H) 145 - 357 x10(3)/mc L [facility] RDW Standard Deviation 34.4(L) 36.0 - 45.0 [facility] RDW coefficient of variation 15.2(H) 11.4 - 13.8 % [facility] Mean Platelet Volume 9.1 7.6 - 12.9 [facility] NRBC% auto 0.0 % [facility] NRBC Absolute 0.000 0.000 - 0.000 x10(3)/[facility] Blood specimen (specimen) 11/12/2019 5:42 AM EDT 11/12/2019 5:48 AM EDT Narrative Resulting Agency Comment Spec In Lab Piyush Rojo MD HEMATOLOGY ORDER JAYCE Performing Organization Address City/[facility]/ZIP Co de Phone Number [facility] [place] [address] * Basic Metabolic Panel (non-fasting) (11/12/2019 5:42 AM EDT) Glucose 92 65 - 199 mg/dL [facility] Comment:Diabetes: >=200 mg/d L plus symptoms Blood Urea Nitrogen 15 10 - 20 mg/dL [facility] Creatinine 0.81 0.80 - 1.50 mg/dL [facility] Sodium 138 135 - 145 mmol/L [facility] Potassium 3.9 3.5 - 5.0 mmol/L [facility] Comment: Please note: ??Patients with WBC >100,000 may have falsely elevated Potassium levels. ??For accurate Potassium quantification in these patients send serum separator tube (gold top) for subsequent determinations. ??Contact the Clinical Chemistry Laboratory if there are any questions. Chloride 100 98 - 107 mmol/L [facility] Carbon Dioxide 26 22 - 31 mmol/L [facility] Anion Gap 12 5 - 15 mmol/L [facility] Calcium 9.1 8.5 - 10.5 mg/dL [facility] Est Glomerular Filtration Rate 93 >=60 mL/min/1. 73 m?? [facility] Comment: The eGFR was calculated using the CKD-EPI equation. As with all creatinine based estimates of kidney function, eGFR values calculated with the CKD-EPI equation are not accurate in patients with acute kidney failure, extremes of body mass or the acutely ill. [email or web address] eGFR 108 >=60 mL/min/1. 73 m?? [facility] Comment: The eGFR was calculated using the CKD-EPI equation. As with all creatinine based estimates of kidney function, eGFR values calculated with the CKD-EPI equation are not accurate in patients with acute kidney failure, extremes of body mass or the acutely ill. [email or web address] Blood specimen (specimen) 11/12/2019 5:42 AM EDT 11/12/2019 5:48 AM EDT Narrative Resulting Agency Comment Spec In Lab Piyush Rojo MD CHEMISTRY ORDERA BLES Performing Organization Address [facility] Co de Phone Number [facility] [place] [address] * Vancomycin, trough (11/11/2019 3:01 PM EDT) Vancomycin, Trough 9.5 mg/L [facility] Comment: Therapeutic range for complicated [...] MD CHEMISTRY ORDERA BLERadha Performing Organization Address [facility] Co de Phone Number [facility] [place] [address] * Phosphorus (11/11/2019 4:09 AM EDT) Phosphorus 3.4 2.5 - 4.5 mg/dL [facility] Blood specimen (specimen) 11/11/2019 4:09 AM EDT 11/11/2019 4:24 AM EDT Narrative Resulting Agency Comment Spec In Lab Piyush Rojo MD CHEMISTRY ORDERA BLES Performing Organization Address [facility] Co de Phone Number [facility] [place] [address] * Magnesium (11/11/2019 4:09 AM EDT) Magnesium 0.84 0.69 - 1.07 mmol/L [facility] Blood specimen (specimen) 11/11/2019 4:09 AM EDT 11/11/2019 4:24 AM EDT Narrative Resulting Agency Comment Spec In Lab Piyush Rojo MD CHEMISTRY ORDERA BLES [facility] [place] [address] * (ABNORMAL) Hemogram (11/11/2019 4:09 AM EDT) White Blood Cell 13.8(H) 4.0 - 9.5 x10(3)/[facility]AT[facility] Red Blood Cell 5.36 4.58 - 5.54 x10(6)/[facility] Hemoglobin 10.7(L) 13.7 - 16.5 gm/dL [facility] Hematocrit 34.8(L) 40.5 - 48.5 % [facility] Mean Cell Volume 64.9(L) 82.9 - 93.1 [facility] Mean Cell Hemoglobin 20.0(L) 27.5 - 32.1 pg [facility] Mean Cell Hemoglobin Concentration 30.7(L) 32.0 - 35.7 gm/dL [facility] Platelet 384(H) 145 - 357 x10(3)/[facility] RDW Standard Deviation 35.5(L) 36.0 - 45.0 [facility] RDW coefficient of variation 15.7(H) 11.4 - 13.8 % [facility] Mean Platelet Volume 8.9 7.6 - 12.9 [facility] NRBC% auto 0.0 % [facility] NRBC Absolute 0.000 0.000 - 0.000 x10(3)/[facility] Blood specimen (specimen) 11/11/2019 4:09 AM EDT 11/11/2019 4:24 AM EDT Narrative Resulting Agency Comment Spec In Lab Piyush Rojo MD HEMATOLOGY ORDER JAYCE [facility] [place] [address] * (ABNORMAL) Basic Metabolic Panel (non-fasting) (11/11/2019 4:09 AM EDT) Glucose 117 65 - 199 mg/dL [facility] Comment:Diabetes: >=200 mg/d L plus symptoms Blood Urea Nitrogen 22(H) 10 - 20 mg/dL [facility] Creatinine 0.82 0.80 - 1.50 mg/dL [facility] Sodium 139 135 - 145 mmol/L [facility] Potassium 3.9 3.5 - 5.0 mmol/L [facility] Comment: Please note: ??Patients with WBC >100,000 may have falsely elevated Potassium levels. ??For accurate Potassium quantification in these patients send serum separator tube (gold top) for subsequent determinations. ??Contact the Clinical Chemistry Laboratory if there are any questions. Chloride 102 98 - 107 mmol/L [facility] Carbon Dioxide 25 22 - 31 mmol/L [facility] Anion Gap 12 5 - 15 mmol/L [facility] Calcium 8.6 8.5 - 10.5 mg/dL [facility] Est Glomerular Filtration Rate 93 >=60 mL/min/1. 73 m?? [facility] Comment: The eGFR was calculated using the CKD-EPI equation. As with all creatinine based estimates of kidney function, eGFR values calculated with the CKD-EPI equation are not accurate in patients with acute kidney failure, extremes of body mass or the acutely ill. [email or web address] eGFR 108 >=60 mL/min/1. 73 m?? [facility] Comment: The eGFR was calculated using the CKD-EPI equation. As with all creatinine based estimates of kidney function, eGFR values calculated with the CKD-EPI equation are not accurate in patients with acute kidney failure, extremes of body mass or the acutely ill. [email or web address] Blood specimen (specimen) 11/11/2019 4:09 AM EDT 11/11/2019 4:24 AM EDT Narrative Resulting Agency Comment Spec In Lab Piyush Rojo MD CHEMISTRY JESSICA RODRIGUEZ [facility] [place] [address] * XR Chest PA & Lateral (Generic) [...] EDT) Phosphorus 4.4 2.5 - 4.5 mg/dL [facility] Blood specimen (specimen) 11/10/2019 8:29 AM EDT 11/10/2019 8:54 AM EDT Narrative Resulting Agency Comment Spec In Lab Piyush Rojo MD CHEMISTRY ORDERA BLES [facility] [place] [address] * Magnesium (11/10/2019 8:29 AM EDT) Pathologist [facility] Magnesium 0.86 0.69 - 1.07 mmol/L [facility] Blood specimen (specimen) 11/10/2019 8:29 AM EDT 11/10/2019 8:54 AM EDT Narrative Resulting Agency Comment Spec In Lab Piyush Rojo MD CHEMISTRY ORDERA BLES Performing Organization Address [facility] Co de Phone Number [facility] [place] [address] * (ABNORMAL) Hemogram (11/10/2019 8:29 AM EDT) [facility] White Blood Cell 14.1(H) 4.0 - 9.5 x10(3)/mc L [facility] Red Blood Cell 6.68(H) 4.58 - 5.54 x10(6)/mc L [facility] Hemoglobin 13.2(L) 13.7 - 16.5 gm/dL [facility] Hematocrit 42.8 40.5 - 48.5 % [facility] Mean Cell Volume 64.1(L) 82.9 - 93.1 [facility] Mean Cell Hemoglobin 19.8(L) 27.5 - 32.1 pg [facility] Mean Cell Hemoglobin Concentration 30.8(L) 32.0 - 35.7 gm/dL [facility] Platelet 485(H) 145 - 357 x10(3)/mc L [facility] RDW Standard Deviation 33.9(L) 36.0 - 45.0 [facility] RDW coefficient of variation 16.2(H) 11.4 - 13.8 % [facility] Mean Platelet Volume 9.6 7.6 - 12.9 fL [facility] NRBC% auto 0.0 % [facility] NRBC Absolute 0.000 0.000 - 0.000 x10(3)/mc L [facility] Blood specimen (specimen) 11/10/2019 8:29 AM EDT 11/10/2019 8:54 AM EDT Narrative Resulting Agency Comment Spec In Lab Piyush Rojo MD HEMATOLOGY ORDER JAYCE [facility] [address] [place] [address] * (ABNORMAL) Basic Metabolic Panel (non-fasting) (11/10/2019 8:29 AM EDT) Glucose 123 65 - 199 mg/dL [facility] Comment:Diabetes: >=200 mg/d L plus symptoms Blood Urea Nitrogen 14 10 - 20 mg/dL [facility] Creatinine 0.75(L) 0.80 - 1.50 mg/dL [facility] Sodium 137 135 - 145 mmol/L [facility] Potassium 4.9 3.5 - 5.0 mmol/L [facility] Comment: Please note: ??Patients with WBC >100,000 may have falsely elevated Potassium levels. ??For accurate Potassium quantification in these patients send serum separator tube (gold top) for subsequent determinations. ??Contact the Clinical Chemistry Laboratory if there are any questions. Chloride 100 98 - 107 mmol/L [facility] Carbon Dioxide 21(L) 22 - 31 mmol/L [facility] Anion Gap 16(H) 5 - 15 mmol/L [facility] Calcium 9.4 8.5 - 10.5 mg/dL [facility] Est Glomerular Filtration Rate 96 >=60 mL/min/1. 73 m?? [facility] Comment: The eGFR was calculated using the CKD-EPI equation. As with all creatinine based estimates of kidney function, eGFR values calculated with the CKD-EPI equation are not accurate in patients with acute kidney failure, extremes of body mass or the acutely ill. http://[employer]/DHnkf eGFR 112 >=60 mL/min/1. 73 m?? [facility] Comment: The eGFR was calculated using the CKD-EPI equation. As with all creatinine based estimates of kidney function, eGFR values calculated with the CKD-EPI equation are not accurate in patients with acute kidney failure, extremes of body mass or the acutely ill. http://[employer]/[facility] Blood specimen (specimen) 11/10/2019 8:29 AM EDT 11/10/2019 8:54 AM EDT Narrative Resulting Agency Comment Spec In Lab Piyush Rojo MD CHEMISTRY ORDERA BLES Performing Organization Address [facility] Co de Phone Number [facility] [place] [address] * Anaerobic Culture (11/10/2019 12:25 AM EDT) Anaerobic Culture No anaerobic organisms isolated [facility] Specimen from abscess (specimen) THORACIC STRUCTURE / Unknown 11/10/2019 12:25 AM EDT 11/10/2019 7:55 AM EDT Comment:RIGHT CHEST WALL ABS CESS. Narrative Resulting Agency Comment Spec In Lab Piyush Rojo MD MICROBIOLOGY - G ENERAL ORDERABLES Performing Organization Address [facility]/ZIP Co de Phone Number [facility] [place] [address] * (ABNORMAL) Abscess/Wound Aspirate Culture (11/10/2019 12:25 AM EDT) Abscess/Wound Aspirate Culture Moderate Staphylococcus aureus(A) [facility] Gram Stain Moderate Neutrophils seen Few Gram Positive Cocci seen (A) [facility] Organism Staphylococcus aureus(A) [facility] Organism Gram Positive Cocci(A) [facility] Specimen from abscess (specimen) THORACIC [...] Sensitive Comment:Gentamicin i s not appropriate for [place]-therapy. Staphylococcus aureus Levofloxacin VITEK 2 METHOD Sensitive [...] Sensitive Piyush Rojo MD MICROBIOLOGY - G [facility] [place] ORDERABLES [facility] [place] [address] * COVID-19 PCR (11/09/2019 7:57 PM EDT) SARS-CoV-2 RNA (Rapid) Not Detected Not Detected [facility] Comment: This result should be [...] using the Simplexa COVID-19 Direct Assay by [employer] as authorized by the FDA issued Emergency [...] of Pathology and Laboratory Medicine at [facility], certified under the Clinical Laboratory Improvement [...] Information for Healthcare Professionals (https://www.cdc.gov/coronavirus/2019-ncov/hcp/index.html). SARS-CoV-2 Source OUTBOUND TELEMARKETING REPRESENTATIVE Swab SHERIE BOWIE [facility] Nasopharyngeal swab (specimen) 11/09/2019 7:57 PM EDT 11/09/2019 8:53 PM EDT Comment:Symptoms->Surveillan ce Narrative Resulting Agency Comment Spec In Lab Robert Brambila MD MICROBIOLOGY - GENER AL ORDERABLES [facility] [place] [address] * CT Chest w Contrast (11/09/2019 1:54 [...] contact the number below. Armen Mckeon MD [facility] CT ORDERABLES * Blue Tube HOLD (11/09/2019 10:50 AM EDT) Pathologist [facility] Blue Hold Sample in lab. [facility] Blood specimen (specimen) Venous Draw / Unknown 11/09/2019 10:50 AM EDT 11/09/2019 10:54 AM EDT Emmett Reynolds MD HEMATOLOGY ORDERABLE S [facility] [place] [address] * (ABNORMAL) Differential, Automated (11/09/2019 10:50 AM EDT) Pathologist [facility] Neutrophil % 76.8 % [facility] Neutrophil Absolute 11.22(H) 1.70 - 6.10 x10(3)/ L [facility] Lymph % 10.9 % [facility] Lymphocytes Abs 1.6 0.9 - 3.2 x10(3)/ L [facility] Monocyte % 9.0 % [facility] Monocyte Abs 1.3(H) 0.3 - 0.9 x10(3)/ L [facility] Eos % 1.2 % [facility] Eosinophils Abs 0.2 0.0 - 0.4 x10(3)/ L [facility] Basophil % 0.5 % [facility] Baso Absolute 0.1 0.0 - 0.1 x10(3)/ L [facility] Immature Gran % 1.60 % [facility] Comment: Immature granulocytes(IG's)percentage and absolute count will include metamyelocytes, myelocytes, and promyelocytes. Blood smears from CBCs yielding IG's will be scanned manually for concordance. If this scan disagrees with the automated IG or if promyelocytes are noted, a manual differential will be performed. Immature Gran Absolute 0.24(H) 0.00 - 0.04 x10(3)/mc L [facility] Blood specimen (specimen) 11/09/2019 10:50 AM EDT 11/09/2019 10:53 AM EDT Narrative Resulting Agency Comment Spec In Lab Emmett Reynolds MD HEMATOLOGY ORDERABLE S [facility] [place] [address] * (ABNORMAL) Hemogram (11/09/2019 10:50 AM EDT) White Blood Cell 14.6(H) 4.0 - 9.5 x10(3)/[facility] Red Blood Cell 6.10(H) 4.58 - 5.54 x10(6)/mc [facility] Hemoglobin 12.2(L) 13.7 - 16.5 gm/dL [facility] Hematocrit 39.7(L) 40.5 - 48.5 % [facility] Mean Cell Volume 65.1(L) 82.9 - 93.1 fL [facility] Mean Cell Hemoglobin 20.0(L) 27.5 - 32.1 pg [facility] Mean Cell Hemoglobin Concentration 30.7(L) 32.0 - 35.7 gm/dL [facility] Platelet 459(H) 145 - 357 x10(3)/ L [facility] RDW Standard Deviation 35.4(L) 36.0 - 45.0 fL [facility] RDW coefficient of variation 16.5(H) 11.4 - 13.8 % [facility] Mean Platelet Volume 9.1 7.6 - 12.9 fL [facility] NRBC% auto 0.0 % [facility] NRBC Absolute 0.000 0.000 - 0.000 x10(3)/[facility] Blood specimen (specimen) 11/09/2019 10:50 AM EDT 11/09/2019 10:53 AM EDT Narrative Resulting Agency Comment Spec In Lab Emmett Reynolds MD HEMATOLOGY ORDERABLE S [facility] [place] [address] * Basic Metabolic Panel (non-fasting) (11/09/2019 10:50 AM EDT) Glucose 95 65 - 199 mg/dL [facility] Comment:Diabetes: >=200 mg/d L plus symptoms Blood Urea Nitrogen 14 10 - 20 mg/dL [facility] Creatinine 0.80 0.80 - 1.50 mg/dL [facility] Sodium 138 135 - 145 mmol/L [facility] Potassium 4.4 3.5 - 5.0 mmol/L [facility] Comment: Please note: ??Patients with WBC >100,000 may have falsely elevated Potassium levels. ??For accurate Potassium quantification in these patients send serum separator tube (gold top) for subsequent determinations. ??Contact the Clinical Chemistry Laboratory if there are any questions. Chloride 100 98 - 107 mmol/L [facility] Carbon Dioxide 26 22 - 31 mmol/L [facility] Anion Gap 12 5 - 15 mmol/L [facility] Calcium 8.7 8.5 - 10.5 mg/dL [facility] Est Glomerular Filtration Rate 94 >=60 mL/min/1. 73 m?? [facility] Comment: The eGFR was calculated using the CKD-EPI equation. As with all creatinine based estimates of kidney function, eGFR values calculated with the CKD-EPI equation are not accurate in patients with acute kidney failure, extremes of body mass or the acutely ill. http://[employer]/[facility]f eGFR 109 >=60 mL/min/1. 73 m?? [facility] Comment: The eGFR was calculated using the CKD-EPI equation. As with all creatinine based estimates of kidney function, eGFR values calculated with the CKD-EPI equation are not accurate in patients with acute kidney failure, extremes of body mass or the acutely ill. http://[employer]/[facility] Blood specimen (specimen) 11/09/2019 10:50 AM EDT 11/09/2019 10:53 AM EDT Narrative Resulting Agency Comment Spec In Lab Emmett Reynolds MD CHEMISTRY ORDERABLES [facility] [place] [address] * XR Chest PA & Lateral (Generic) [...] dextrose 5% 100 mL 2 g, Intravenous, LENS SILVERER TO O.R., 1 dose, On Sun11/09/19 at [...] Routine documented in this encounter Care Teams Licensing Coordinator Relationship Specialty Start Date End Date Christiana Moore APRN [address] [place] [address] PCP - General Family Medicine 09/26/19 documented as of this encounter
--- OUTSIDE RECORDS SUMMARY | 2024-01-25 00:33 | XMS_ITS | Encounter Summary ---
[facility] Organization [facility] [place] [address] Care Team Providers Care Employment Evaluator/Case Manager Name Role Phone Christiana Moore APRN Primary Care Provider [phone] Reason for Visit * Auth/Cert Specialty Diagnoses / Procedures Referred By Contac t Referred To Contact Diagnoses Chest wall abscess Cellulitis of back except buttock Procedures ER IPI Admit Referral ID Status Reason Start Date Expiration Date Visits Re quested Visits Authorized [id number] 1 1 Encounter Details Date Type Department Care Team (Late st Contact Info) Description 11/09/2019 11:57 PM EDT Anesthesia Event [place] [phone] Brown Crump MD [facility] [place] [address] Marcio Pineda MD [facility] [place] [address] Anesthesia Record Procedure Summary Procedure Name Responsible [...] 1241; metacarpal vein (top of hand), right; [id number] catheter system; 20 gauge; Cammie Machado RN; [...] Chest Tube 11/10/19; 0032; Righ t; 28 kenyan; 11/12/19; 0930 11/10/19 0032 by Janessa Ramirez [...] Procedure Summary Date: 11/09/19 Room / Location: [facility] OR [address] [place] [address] MAIN OR Anesthesia Start: 2356 Anesthesia Stop: 11/10/19 0100 Procedure: INCISION & DRAINAGE HEMATOMA, SEROMA OR FLD. COLLECTION, CHEST (WRVU 1.58) (Right Chest) Diagnosis: (right chest abscess, pleural effusion) Surgeon: Piyush Hobbs MD Responsible Provider: Brown Crump MD Anesthesia Type: general ASA Status: 3 - Emergent All Anesthesia Providers: Anesthesiologist: Brown Crump MD Hand Stripper: Chidi Porter MD Vitals Value Taken Time BP 124/75 11/10/19 0100 Temp Pulse 104 11/10/19 0102 Resp 20 11/10/19 0102 SpO2 96 % 11/10/19 010 Pain Level Vitals shown include unvalidated device data. Patient Location: PACU/[facility] Level of Consciousness: Awake and Alert [...] 2.78) performed by Quentin Carlin MD at [facility] MAIN OR ? ? PRO INJECTION ANES AGENT &/ STEROID INTERCOSTAL NERVE EA ADDL LEVEL Right 10/24/2019 NERVE BLOCK, INTERCOSTAL NERVE, MULTIPLE (WRVU 1.68) performed by Quentin Carlin MD at [facility] MAIN OR ??? PRO THORACOSCOPY WITH BIOPSY OF PLEURA Right 10/24/2019 THORACOSCOPY; WITH BIOPSY(IES) OF PLEURA (WRVU 4.58) performed by Quentin Carlin MD at [facility] MAIN OR ??? PRO THORACOTOMY WITH THERAPEUTIC WEDGE RESECTION EA ADDL Right 10/24/2019 @THORACOTOMY; W/THERAPEUTIC WEDGE RESECTION, EA ADD'L RESC, IPSILATERAL (WRVU 3) performed by Quentin Carlin MD at [facility] MAIN OR ??? PRO THORACOTOMY WITH THERAPEUTIC WEDGE RESECTION INITIAL Right 10/24/2019 @THORACOTOMY; W/ THERAPEUTIC WEDGE RESECTION , INITIAL (WRVU 15.75) performed by Quentin Carlin MD at [facility] MAIN OR ??? PRO THYMECTOMY, RADICAL MEDIAST DISSSEC Right 10/24/2019 @THYMECTOMY W/ RAD. MEDIASTINAL DISSECTION (WRVU 23.48) performed by Quentin Carlin MD at [facility] MAIN OR Social History Tobacco Use [...] PM EDT Office Visit General Surgery at [facility] [place] [address] Manjula Kitchen MD [facility] [place] [address] documented as of this encounter Visit Diagnoses [...] subcutaneous injection 5,000 Units 5,000 Units, Subcutaneous, CROWN POUNCER TO O.R., 1 dose, On Sun11/09/19 at [...] mg documented in this encounter Care Teams Employment Evaluator/Case Manager Relationship Specialty Start Date End Date Christiana Moore APRN [address] [place] [address] PCP - General Family Medicine 09/26/19 documented as of this encounter
--- OUTSIDE RECORDS SUMMARY | 2024-01-25 00:33 | XMS_ITS | Encounter Summary ---
[place] [address] Care Team Providers Care Stitch Cleaner Name Role Phone Christiana Moore APRN Primary Care Provider [phone] Reason for Visit * Reason Onset Date Comments Other 11/17/2019 post op call Encounter Details Date Type Department Care Team (Late st Contact Info) Description 11/17/2019 Telephone [place] [phone] Monica Price, RN Other (post op call) [...] [employer] question regarding a call from the network coordinator. Plan: RTC on 11/25/19 CXR 11/25/19 Dayne Arteaga APRN for wound vac change. Tree Hoffmann Grzegorz is aware of appointments and know to call with any questions or concerns. documented in this encounter Plan of Treatment Upcoming Encounters Date Type Department Care Team (Late st Contact Info) Description 02/08/2024 1:00 PM EDT Office [place] [address] Manjula Kitchen MD [facility] [place] [address] documented as of this encounter Visit Diagnoses Not on filedocumented in this encounter Care Teams Stitch Cleaner Relationship Specialty Start Date End Date Christiana Moore APRN [address] [place] [address] PCP - General Family Medicine 09/26/19 documented as of this encounter
--- OUTSIDE RECORDS SUMMARY | 2024-01-25 00:33 | XMS_ITS | Encounter Summary ---
Author Organization [facility] [place] [address] Care Team Providers Care Power Project Manager Name Role Phone Christiana Moore SENIOR APPLICATIONS DEVELOPER Primary Care Provider [phone] Encounter Details Date Type Department Care Team (Late st Contact Info) Description 12/04/2019 Telephone [place] [phone] Clement Damon MD [facility] [place] [address] Social History Tobacco Use Types Packs/Day Years [...] PM EDT Office [place] [phone] Manjula Kitchen MD [facility] [place] [address] documented as of this encounter Visit Diagnoses Not on filedocumented in this encounter Care Teams Power Project Manager Relationship Specialty Start Date End Date Christiana Moore APRN [address] [place] [address] PCP - General Family Medicine 09/26/19 documented as of this encounter
--- OUTSIDE RECORDS SUMMARY | 2024-01-25 00:33 | XMS_ITS | Encounter Summary ---
Author Organization [facility] [place] [address] Care Team Providers Care Skin Drier Name Role Phone Christiana Moore APRN Primary Care Provider [phone] Reason for Visit * Reason Comments Follow-up Encounter Details Date Type Department Care Team (Late st Contact Info) Description 11/25/2019 10:30 AM EDT Office Visit [place] [address] Bella Arteaga APRN [facility] DR CARDIOTHORACIC SURGERY [address] Surgical site infection; Encounter for surgical wound [...] Outpatient Follow Up Note Bella Arteaga APRN [place] [address] FAX: Pre Op Dx: mediastinal mass Post [...] concerns Bella Arteaga APRN 11/25/2019 Thoracic Surgery [facility] documented in this encounter Plan of Treatment Upcoming Encounters Date Type Department Care Team (Late st Contact Info) Description 02/08/2024 1:00 PM EDT Office Visit [place] [address] Manjula Kitchen MD [facility] DR GENERAL SURGERY [address] documented as of this encounter Visit Diagnoses Diagnosis Surgical site infection Encounter for surgical wound dressing change documented in this encounter Care Teams Skin Drier Relationship Specialty Start Date End Date Christiana Moore APRN [address] [place] [address] PCP - General Family Medicine 09/26/19 documented as of this encounter
--- OUTSIDE RECORDS SUMMARY | 2024-01-25 00:33 | XMS_ITS | Encounter Summary ---
Author Organization [facility] [place] [address] Care Team Providers Care I O Psychologist Name Role Phone OscarChristiana RYAN Primary Care Provider [phone] Reason for Visit * Reason Onset Date Comments Other 11/03/2019 Encounter Details Date Type Department Care Team (Late st Contact Info) Description 11/03/2019 Telephone [place] [phone] Monica Price, RN Other Social History Tobacco [...] PM EDT Office [place] [address] Manjula Kitchen MD [facility] [place] [address] documented as of this encounter Visit Diagnoses Not on filedocumented in this encounter Care Teams I O Psychologist Relationship Specialty Start Date End Date Christiana Moore APRN [address] [place] [address] PCP - General Family Medicine 09/26/19 documented as of this encounter
--- OUTSIDE RECORDS SUMMARY | 2024-01-25 00:33 | XMS_ITS | Encounter Summary ---
Author Organization [facility] [place] [address] Care Team Providers Care Stump Shooter Name Role Phone Christiana Moore APRN Primary Care Provider [phone] Reason for Visit * Reason Onset Date Comments Medication Refill 12/03/2019 Medication Refill 12/04/2019 Encounter Details Date Type Department Care Team (Late st Contact Info) Description 12/03/2019 [place] [phone] Clement Damon MD [facility] [place] [address] Social History Tobacco Use Types Packs/Day Years [...] PM EDT Office [place] [phone] Manjula Kitchen MD [facility] [place] [address] documented as of this encounter Visit Diagnoses Not on filedocumented in this encounter Care Teams Stump Shooter Relationship Specialty Start Date End Date Christiana Moore APRN [address] [place] [address] PCP - General Family Medicine 09/26/19 documented as of this encounter
--- OUTSIDE RECORDS SUMMARY | 2024-01-25 00:33 | XMS_ITS | Encounter Summary ---
Author Organization [facility] [place] [address] Care Team Providers Care Sample Tester Name Role Phone Christiana Moore RYAN Primary Care Provider [phone] Encounter Details Date Type Department Care Team (Late st Contact Info) Description 12/03/2019 Telephone [place] [address] Angelita Sepulveda Social History Tobacco [...] refill on oxycodone. Request sent to pager [phone]. documented in this encounter Plan of Treatment Upcoming Encounters Date Type Department Care Team (Late st Contact Info) Description 02/08/2024 1:00 PM EDT Office [place] [phone] Manjula Kitchen MD [facility] [place] [address] documented as of this encounter Visit Diagnoses Not on filedocumented in this encounter Care Teams Sample Tester Relationship Specialty Start Date End Date Christiana Moore APRN [address] [place] [address] PCP - General Family Medicine 09/26/19 documented as of this encounter
--- OUTSIDE RECORDS SUMMARY | 2024-01-25 00:33 | XMS_ITS | Encounter Summary ---
Author Organization [facility] [place] [address] Care Team Providers Care Linux Network Administrator Name Role Phone Oscar Christiana RYAN Primary Care Provider [phone] Reason for Visit * Reason Comments Wound Check * Auth/Cert Specialty Diagnoses / Procedures Referred By Contac t Referred To Contact Diagnoses Chest wall abscess Open wound of right chest wall with complication wound vac filled with puss Procedures EMERGENCY OBSVO Referral ID Status Reason Start Date Expiration Date Visits Re quested Visits Authorized [id number] 1 1 Encounter Details Date Type Department Care Team (Late st Contact Info) Description 12/08/2019 3:53 PM EDT - 12/09/2019 8:20 PM EDT Emergency [address] [place] [address] Armen Simon MD [facility] [address] Quentin Carlin MD [facility] [place] [address] Chest wall abscess; Open wound of right [...] Hospital Course: Tree Lantigua was admitted to [facility] on 12/08/2019 viathe ED. He [...] a nurse in the Thoracic Clinic at [phone]. After hours or on weekends or holidays please call: [phone] and ask to speak to the Thoracic Surgeon on c all. Medication: Bactrim and oxycodone was sent to [facility]. Exercise & Activity Level: As you [...] the Thoracic Clinic or the Thoracic Surgeon construction representative after hours. Please take over the counter [...] Referral to Home Health - at DISCHARGE [EPH7283 CPT(R)] As directed Process Instructions: Scheduling Instructions: Comments: DOCUMENTATION FOR VNA SERVICES (INCLUDING THOSE PATIENTS WITH MEDICARE COVERAGE REQUIRING HOME VNA SERVICES AND/OR HOSPICE SERVICES) PATIENT'S LOCATION: Tree Lantigua ? [address] [place] [address] (home) ?? Cell: Telephone Information: Mobile ?[phone] Electric Milkers Installer's Name: Self In discussion with the attending physician, it is certified that this patient is under their care and that they, or a Nurse Practitioner,Clinical Nurse specialist or Physician Dry Roller who is working directly with them, had [...] (Per pt - should be at the [facility] clinic on for MD review) VAC Therapy [...] VAC dressing. ?? HOME HEALTH CARE AGENCY: [facility] ?? PHONE: [phone] FAX: [phone] Start of care: 24 to 48 hours [...] APRN ? [address] / [place] [address] ?[phone] All VNA agencies which cover the area of patient's residence have been reviewed, either verbally carmel writing, and patient/family have chosen the home health care agency noted Questions: Agency name and contact information: [place] [facility] Patient location post discharge: home What services are requested: Registered Nurse Start date: Responsible MD post discharge contact info: Surgery services and PCP Provider Contact Information: Primary Care Provider: Christiana Moore APRN [phone] Discharge References/Attachments: Discharge References/Attachments None For questions [...] a nurse in the Thoracic Clinic at [phone]. After hours or on weekends or holidays please call: [phone] and ask to speak to the Thoracic Surgeon on c all. Medication: Bactrim and oxycodone was sent to [facility]. Exercise & Activity Level: As you [...] the Thoracic Clinic or the Thoracic Surgeon construction representative after hours. Please take over the counter [...] at ~1900. DC summary faxed to [facility]. * Benea Dubose RN - 12/09/2019 6:26 PM EDTSummary: VNA ED RN/CM notified that patient is medically ready for discharge home with VNA services and WOUND VAC. He has the portable WOUND VAC with him. Spouse to drive him home. Wants to use the same agency he had: Patient requests referral to: [facility] PHONE: [phone] FAX: [phone] Expected date of discharge: 12/09/2019 Referral routed to the Sanitation Inspector for matching with agency/vendor and to provide any required informationKathia Dubose RN (Jonas) ED RN/CM Cellphone: [phone] * Clement Damon MD - 12/09/2019 5:05 PM EDT [facility] Department of Thoracic Surgery Inpatient Post Op Check Note Patient Name: Tree Lantigua Patient : 1955 Patient Patient Location: [address] [place] [address] Attending Surgeon: ARMEN SIMON DAVID J ID: [...] to Hosp-Admission (Current) from 12/08/2019 in 4 [facility] ED to Hosp-Admission (Discharged) from 11/09/[address] [place] [address] Weight 77.1 kg (170 lb) 1 12/08/2019 [...] Damon MD 12/09/2019 Thoracic Surgery Service Pager [phone] * Clement Damon MD - 12/09/2019 8:47 AM EDT [facility] Department of Thoracic Surgery Inpatient Progress Note Patient Name: Tree Lantigua Patient : 1955 Patient Patient Location: [address] [place] [address] Attending Surgeon: ARMEN SIMON DAVID J ID: [...] to Hosp-Admission (Current) from 12/08/2019 in 4 [facility] ED to Hosp-Admission (Discharged) from 11/09/2019 in 4 [facility] Weight 77.1 kg (170 lb) 1 12/08/2019 [...] Damon MD 12/09/2019 Thoracic Surgery Service Pager [phone] * Norma Contreras RN - 12/08/2019 11:50 PM EDT Pt arrived to the floor around 2230. AAOx4. VSS. Pt oriented to unit, room, and staff. NPO at midnight for possible OR in morning. See DocFlow for assessment. Will continue to monitor. Report received from ED, RN. documented in this encounter H&P Notes * Tree Hodge MD - 12/08/2019 8:34 PM EDT [facility] Department of Thoracic Surgery Consult Note Consultation [...] site and tachycardia. He then presented to [facility] ED. Upon arrival, he was afebrile, tachycardic to 130s, and normotensive with expression of purulence from right back surgical site.Labs significant for mild leukocytosis to 14.5. Thoracic surgery was then consulted for management. PMH: Right anterior thymoma PSH: Past Surgical History: Procedure Laterality Date ??? PRO BRONCHOSCOPY, DIAGNOSTIC N/A 10/24/2019 BRONCHOSCOPY, DIAGNOSTIC (WRVU 2.78) performed by Quentin Carlin MD at [facility] OR ??? PRO DRAINAGE OF HEMATOMA/FLUID Right 11/09/2019 INCISION & DRAINAGE HEMATOMA, SEROMA OR FLD. COLLECTION, CHEST (WRVU 1.58) performed by Piyush Hobbs MD at [facility] MAIN OR ? ? PRO INJECTION ANES AGENT &/ STEROID INTERCOSTAL NERVE EA ADDL LEVEL Right 10/24/2019 NERVE BLOCK, INTERCOSTAL NERVE, MULTIPLE (WRVU 1.68) performed by Quentin Carlin MD at [facility] MAIN OR ??? PRO THORACOSCOPY WITH BIOPSY OF PLEURA Right 10/24/2019 THORACOSCOPY; WITH BIOPSY(IES) OF PLEURA (WRVU 4.58) performed by Quentin Carlin MD at [facility] MAIN OR ??? PRO THORACOTOMY WITH THERAPEUTIC WEDGE RESECTION EA ADDL Right 10/24/2019 @THORACOTOMY; W/THERAPEUTIC WEDGE RESECTION, EA ADD'L RESC, IPSILATERAL (WRVU 3) performed by Quentin Carlin MD at [facility] OR ??? PRO THORACOTOMY WITH THERAPEUTIC WEDGE RESECTION INITIAL Right 10/24/2019 @THORACOTOMY; W/ THERAPEUTIC WEDGE RESECTION , INITIAL (WRVU 15.75) performed by Quentin Carlin MD at [facility] OR ??? PRO THYMECTOMY, RADICAL MEDIAST DISSSEC Right 10/24/2019 @THYMECTOMY W/ RAD. MEDIASTINAL DISSECTION (WRVU 23.48) performed by Quentin Carlin MD at [facility] OR MEDS: No current facility-administered medications on [...] file Gets together: Not on file Attends bahai service: Not on file Active member of [...] and tachycardia for which he presented to [facility] ED. He is currently afebrile, tachycardic to [...] If you have any questions, please page [phone]. Tree Hodge MD Thoracic Surgery, Pager [phone] 12/08/2019 8:35 PM documented in this encounter [...] give broad-spectrum antibiotics. Armen Simon MD 12/08/19 4700 * Zeeshan Luna MD - 12/08/2019 3:51 [...] - 12/09/2019 1:29 PM EDTSummary: Operative Report [facility] Operative Note Patient Name: Tree Lantigua : [id number] MR#: [id number] Case Date: 12/09/2019 Surgeon: Surgeon(s) and Role: [...] PM EDT Office [place] [address] Manjula Kitchen MD [facility] [place] [address] documented as of this encounter Procedures Procedure [...] Debridement Muscle And Fascia 20 Sq Cm/< (28563) 12/09/2019 11:44 AM EDT chest wall abscess Incision And Drainage Complex Post Operative Wound Infection ([id number]) 12/09/2019 11:44 AM EDT chest wall abscess [...] AL ORDERABLES [facility] [place] [address] * (ABNORMAL) Abscess/Wound Aspirate Culture (12/09/2019 12:34 [...] Sensitive Comment:Gentamicin i s not appropriate for Dickinson-therapy. Staphylococcus aureus Levofloxacin VITEK 2 METHOD Sensitive [...] METHOD Sensitive Michael Li MD MICROBIOLOGY - [facility] AL ORDERABLES [facility] [place] [address] * Anaerobic Culture (12/09/2019 12:34 PM EDT) Anaerobic Culture No anaerobic organisms isolated [facility] Specimen from abscess (specimen) THORACIC STRUCTURE / Unknown 12/09/2019 12:34 PM EDT 12/09/2019 2:14 PM EDT Comment:RIGHT POSTERIOR LATE RAL CHEST WALL WOUND #1 Narrative Resulting Agency Comment Spec In Lab Michael Li MD MICROBIOLOGY - GENER AL ORDERABLES Performing Organization Address [facility]/ZIP Co de Phone Number [facility] [place] [address] * (ABNORMAL) Abscess/Wound Aspirate Culture (12/09/2019 12:34 [...] AL ORDERABLES Performing Organization Address [facility] Co de Phone Number [facility] [place] [address] * AFB culture Other (12/09/2019 12:34 PM [...] - GENER AL ORDERABLES Performing Organization Address City/[facility]/ZIP Co de Phone Number [facility] [place] [address] * Fungus culture Abscess (12/09/2019 12:34 PM EDT) Fungus Culture No Fungus isolated [facility] Specimen from abscess (specimen) 12/09/2019 12:34 PM EDT 12/09/2019 2:15 PM EDT Comment:RIGHT POSTERIOR LATE RAL CHEST WALL WOUND #2 Narrative Resulting Agency Comment Spec In Lab Quentin Carlin MD MICROBIOLOGY - GENER AL ORDERABLES Performing Organization Address [facility] Co de Phone Number [facility] [place] [address] * AFB culture Other (12/09/2019 12:34 PM [...] AL ORDERABLES Performing Organization Address [facility] Co de Phone Number [facility] [place] [address] * Fungus culture Abscess (12/09/2019 12:34 PM EDT) Fungus Culture No Fungus isolated [facility] Specimen from abscess (specimen) 12/09/2019 12:34 PM EDT 12/09/2019 2:14 PM EDT Comment:RIGHT POSTERIOR LATE RAL CHEST WALL WOUND #1 Narrative Resulting Agency Comment Spec In Lab Quentin Carlin MD MICROBIOLOGY - GENER AL ORDERABLES Performing Organization Address [facility] Co de Phone Number [facility] [place] [address] * (ABNORMAL) Differential, Automated (12/09/2019 5:07 AM EDT) Neutrophil % 65.1 % [facility] Neutrophil Absolute 5.83 1.70 - 6.10 x10(3)/mc L [facility] Lymph % 17.7 % [facility] Lymphocytes Abs 1.6 0.9 - 3.2 x10(3)/mc L [facility] Monocyte % 11.8 % [facility] Monocyte Abs 1.1(H) 0.3 - 0.9 x10(3)/[facility] Eos % 3.5 % [facility] Eosinophils Abs 0.3 0.0 - 0.4 x10(3)/[facility] Basophil % 0.7 % [facility] Baso Absolute 0.1 0.0 - 0.1 x10(3)/[facility] LAB[facility] Immature Gran % 1.20 % [facility] Comment: Immature granulocytes(IG's)percentage and absolute count will include metamyelocytes, myelocytes, and promyelocytes. Blood smears from CBCs yielding IG's will be scanned manually for concordance. If this scan disagrees with the automated IG or if promyelocytes are noted, a manual differential will be performed. Immature Gran Absolute 0.11(H) 0.00 - 0.04 x10(3)/[facility] LABORAT[facility] Blood specimen (specimen) 12/09/2019 5:07 AM EDT 12/09/2019 5:24 AM EDT Narrative Resulting Agency Comment Spec In Lab Bill Shelton MD HEMATOLOGY ORDERAB LES Performing Organization Address City/State/[facility] Co de Phone Number [facility] [place] [address] * (ABNORMAL) Hemogram (12/09/2019 5:07 AM EDT) White Blood Cell 9.0 4.0 - 9.5 x10(3)/[facility] LABORAT[facility] Red Blood Cell 5.23 4.58 - 5.54 x10(6)/[facility] Hemoglobin 10.2(L) 13.7 - [...] [facility] NRBC% auto 0.0 % [facility] NRBC Absolute 0.000 0.000 - 0.000 x10(3)/mc L [facility] Blood specimen (specimen) 12/09/2019 5:07 AM EDT 12/09/2019 5:24 AM EDT Narrative Resulting Agency Comment Spec In Lab Bill Shelton MD HEMATOLOGY ORDERAB LES Performing Organization Address City/State/[facility] Co de Phone Number [facility] [place] [address] * COVID-19 PCR (12/08/2019 10:20 PM EDT) [...] using the Simplexa COVID-19 Direct Assay by [employer] as authorized by the FDA issued Emergency [...] of Pathology and Laboratory Medicine at [facility], certified under the Clinical Laboratory Improvement Amendments [...] Information for Healthcare Professionals (https://www.cdc.gov/coronavirus/2019-ncov/hcp/index.html). SARS-CoV-2 Source MEDICAL INSTRUMENT TECHNICIAN Swab SHERIE BOWIE [facility] Nasopharyngeal swab (specimen) 12/08/2019 10:20 PM EDT 12/08/2019 10:57 PM EDT Comment:Symptoms->Surveillan ce Narrative Resulting Agency Comment Spec In Lab Armen Simon MD MICROBIOLOGY - GEN ERAL ORDERABLES [facility] [place] [address] * CT Chest w Contrast (12/08/2019 8:54 [...] AL ORDERABLES [facility] [place] [address] * (ABNORMAL) Abscess/Wound Aspirate Culture (12/08/2019 8:30 [...] Sensitive Comment:Gentamicin i s not appropriate for Dickinson-therapy. Staphylococcus aureus Levofloxacin VITEK 2 METHOD Sensitive [...] - GENER AL ORDERABLES Performing Organization Address City/[facility]/ZIP Co de Phone Number [facility] [place] [address] * Blood culture (12/08/2019 4:11 PM EDT) Blood Culture No growth at 5 days. [facility] Blood specimen (specimen) 12/08/2019 4:11 PM EDT 12/08/2019 6:22 PM EDT Narrative Resulting Agency Comment Spec In Lab Portillo Trejo MD MICROBIOLOGY - BLOO D ORDERABLES [facility] [place] [address] * Scan, Peripheral Blood (12/08/2019 3:58 PM EDT) Pathologist [facility] Plat estimate Normal [facility] RBC Morphology Abnormal [facility] Microcyte 1-5 /HPF [facility] Hypochromia Slight [facility] Polychromasia Present >5/HPF [facility] Target Cells 1-5 /HPF [facility] Blood specimen (specimen) 12/08/2019 3:58 PM EDT 12/08/2019 5:02 PM EDT Narrative Resulting Agency Comment Spec In Lab Bart CROWELL HEMATOLOGY ORDERABLE S Performing Organization Address City/[facility]/ZIP Co de Phone Number [facility] [address] * Aguilar Tube Hold (12/08/2019 3:58 PM EDT) Aguilar Hold Sample in lab. [facility] Blood specimen (specimen) Venous Draw / Unknown 12/08/2019 3:58 PM EDT 12/08/2019 5:03 PM EDT Bart CROWELL CHEMISTRY ORDERABLES [facility] [address] * Gold Tube HOLD (12/08/2019 3:58 PM EDT) Gold Hold Sample in lab. [facility] Blood specimen (specimen) Venous Draw / Unknown 12/08/2019 3:58 PM EDT 12/08/2019 5:03 PM EDT Bart CROWELL CHEMISTRY ORDERABLES Performing Organization Address City/[facility]/ZIP Co de Phone Number [facility] [place] [address] * Blue Tube HOLD (12/08/2019 3:58 PM EDT) Pathologist [facility] Blue Hold Sample in lab. [facility] Blood specimen (specimen) Venous Draw / Unknown 12/08/2019 3:58 PM EDT 12/08/2019 5:03 PM EDT Bart CROWELL HEMATOLOGY ORDERABLE S Performing Organization Address [facility] Co de Phone Number [facility] [place] [address] * (ABNORMAL) Differential, Automated (12/08/2019 3:58 PM EDT) [facility] Neutrophil % 78.0 % [facility] Neutrophil Absolute 11.28(H) 1.70 - 6.10 x10(3)/mc L [facility] Lymph % 11.5 % [facility] Lymphocytes Abs 1.7 0.9 - 3.2 x10(3)/mc L [facility] Monocyte % 7.9 % [facility] Monocyte Abs 1.1(H) 0.3 - 0.9 x10(3)/mc L [facility] Eos % 0.7 % [facility] Eosinophils Abs 0.1 0.0 - 0.4 x10(3)/mc L [facility] Basophil % 0.6 % [facility] [...] Absolute 0.19(H) 0.00 - 0.04 x10(3)/mc L [facility] Blood specimen (specimen) 12/08/2019 3:58 PM EDT 12/08/2019 5:02 PM EDT Narrative Resulting Agency Comment Spec In Lab Bart CROWELL HEMATOLOGY ORDERABLE S [facility] [place] [address] * (ABNORMAL) Hemogram (12/08/2019 3:58 PM EDT) [...] CROWELL HEMATOLOGY ORDERABLE S Performing Organization Address City/[facility]/ZIP Co de Phone Number [facility] [place] [address] * (ABNORMAL) Sedimentation rate (12/08/2019 3:58 PM EDT) [facility] Sedimentation Rate Automated >119(H) 2 - 37 [...] MD HEMATOLOGY ORDERABL ES Performing Organization Address [facility] Co de Phone Number [facility] [place] [address] * (ABNORMAL) CRP, acute inflammation (12/08/2019 3:58 PM EDT) [facility] Signature C-Reactive Protein 134.3(H) <=4.9 mg/L [facility] Blood specimen (specimen) 12/08/2019 3:58 PM EDT 12/08/2019 5:02 PM EDT Narrative Resulting Agency Comment Spec In Lab Portillo Trejo MD CHEMISTRY ORDERABLE S Performing Organization Address City/[facility] Co de Phone Number [facility] [address] * (ABNORMAL) Basic Metabolic Panel (non-fasting) (12/08/2019 [...] of body mass or the acutely ill. [email or web address] [email or web address] eGFR 107 >=60 mL/min/1. 73 m?? [facility] Comment: The eGFR was calculated using the CKD-EPI equation. As with all creatinine based estimates of kidney function, eGFR values calculated with the CKD-EPI equation are not accurate in patients with acute kidney failure, extremes of body mass or the acutely ill. [email or web address] Blood specimen (specimen) 12/08/2019 3:58 PM EDT 12/08/2019 5:02 PM EDT Narrative Resulting Agency Comment Spec In Lab Portillo Trejo MD CHEMISTRY ORDERABLE S [facility] [address] [place] [address] documented in this encounter Visit Diagnoses Diagnosis [...] 2 g 250 mL/hr Vancomycin Level - [facility] Order Reminder NOT APPLICABLE, PER PHARMACY, Other, [...] Sun12/09/19 at 2100, Until Discontinued, Routine 1145 ([facility] Hold - Provider: Admin Adt - Reason: Transfer to a Procedural area)1527 ([facility] Unhold - Provider: Admin Adt) lactated Ringers [...] Recovery (Recovery-Hospital Unit), Routine Vancomycin Level - [facility] Order Reminder(Linked Group 2) NOT [...] draw. documented in this encounter Care Teams Linux Network Administrator Relationship Specialty Start Date End Date Christiana Moore APRN [address] [place] [address] PCP - General Family Medicine 09/26/19 documented as of this encounter
--- OUTSIDE RECORDS SUMMARY | 2024-01-25 00:33 | XMS_ITS | Encounter Summary ---
Author Organization [facility] [place] [address] Care Team Providers Care [employer] Storage Architect Name Role Phone Oscar Christiana RYAN Primary Care Provider [phone] Reason for Visit * Reason Onset Date Comments Other 10/30/2019 post op call Encounter Details Date Type Department Care Team (Late st Contact Info) Description 10/30/2019 Telephone [place] [phone] Monica Price, RN Other (post op call) [...] PM EDT Office [place] [address] Manjula Kitchen MD [facility] [place] [address] documented as of this encounter Visit Diagnoses Not on filedocumented in this encounter Care Teams [employer] Storage Architect Relationship Specialty Start Date End Date Christiana Moore APRN [address] [place] [address] PCP - General Family Medicine 09/26/19 documented as of this encounter
--- OUTSIDE RECORDS SUMMARY | 2024-01-25 00:33 | XMS_ITS | Encounter Summary ---
Author Organization [facility] [place] [address] Care Team Providers Care Mechanical Engineering Director Name Role Phone Oscar Christiana RYAN Primary Care Provider [phone] Reason for Visit * Reason Comments Wound Check * Auth/Cert Specialty Diagnoses / Procedures Referred By Contac t Referred To Contact Diagnoses Chest wall abscess Cellulitis of back except buttock Procedures ER IPI Admit Referral ID Status Reason Start Date Expiration Date Visits Re quested Visits Authorized [id number] 1 1 Encounter Details Date Type Department Care Team (Late st Contact Info) Description 11/09/2019 10:00 PM EDT - 11/09/2019 11:55 PM EDT Surgery [place] [address] Piyush Rojo MD [facility] [place] [address] INCISION & DRAINAGE HEMATOMA, SEROMA OR FLD. [...] Hospital Course: Tree Lantigua was admitted to [facility] on 11/09/2019 via the Same Day [...] a nurse in the Thoracic Clinic at [phone]. After hours or on weekends or holidays please call: [phone] and ask to speak to the Thoracic [...] the Thoracic Clinic or the Thoracic Surgeon pest control service technician after hours. We are unable to refill [...] AM Bella Arteaga APRN Thoracic Surgery at [facility] Arrive at: Distributed Generation Project Manager Area [phone] Future Orders Complete By Expires Referral to Home Health - at DISCHARGE [[id number] CPT(R)] As directed Process Instructions: Scheduling Instructions: Comments: DOCUMENTATION FOR VNA SERVICES (INCLUDING THOSE PATIENTS WITH MEDICARE COVERAGE REQUIRING HOME VNA SERVICES AND/OR HOSPICE SERVICES) PATIENT'S LOCATION: Tree Lantigua [address] [place], [place] [id number] (home) Cell: Telephone Information: Rn Spine's Name: Self In discussion with the attending physician, it is certified that this patient is under their care and that they, or a Nurse Practitioner,Clinical Nurse specialist or Physician Rn Appeals who is working directly with them, had [...] change VAC dressing. HOME HEALTH CARE AGENCY: [facility]. PHONE: [phone] FAX: [phone] Start of care: 24 to 48 hours [...] Christiana Moore APRN [address] / [facility] [address] All [facility] agencies which cover the area of patient's residence have been reviewed, either verbally carmel writing, and patient/family have chosen the home health care agency noted Questions: Agency name and contact information: [facility] Patient location post discharge: Home What services are requested: Registered Nurse Start date: Responsible MD post discharge contact info: PCP Provider Contact Information: Primary Care Provider: Christiana Moore APRN [phone] Discharge References/Attachments: Discharge References/Attachments None For questions regarding this document or issues relating to this hospitalization on the Thoracic Surgery Service, please contact Dr. Alvarez's office at . Signed: Blela Arteaga APRN 11/14/2019 Thoracic Surgery [facility] CC: PCP: Christiana Moore APRN [...] a nurse in the Thoracic Clinic at [phone]. After hours or on weekends or holidays please call: [phone] and ask to speak to the Thoracic [...] the Thoracic Clinic or the Thoracic Surgeon pest control service technician after hours. We are unable to refill [...] 3:13 PM EDT OFFICE OF CARE MANAGEMENT Magnet Maker Final DISCHARGE NOTE: Discussed Plan for discharge with primary team and pt's family. Plan for Discharge:Home with [facility] Homecare services provided by: Antonio SANABRIA For [...] a copy of this letter. to drive Magnet Maker to follow until discharged if any new needs arise. Kassie Marie RN Phone [phone] Pager: # [phone] * Shannan Latif RN - 11/14/2019 2:11 [...] Nilo Larry 11/14/2019 Thoracic Surgery Team pager #[phone] * Todd Alvarez PA - 11/13/2019 9:49 AM EDT [facility] Department of Thoracic Surgery Inpatient Progress Note Patient Name: Tree Lantigua Patient : 1955 Patient Patient Location: [address] [place] [address] Attending Surgeon: ARMEN MCKEON REED MILLINGTON, TIMOTHY [...] to Hosp-Admission (Current) from 11/09/2019 in 4 [facility] Admission (Discharged) from 10/24/2019 in 3 [facility] Weight 77.1 kg (170 lb) [...] Micro: OR culture 11/10/2019 Abscess/Wound Aspirate Culture [[id number]] (Abnormal) Collected: 11/10/19 0025 Lab Status: Preliminary [...] Sensitive 1 Gentamicin is not appropriate for Briscoe-therapy. 2 Penicillin resistant, Nafcillin susceptible Staphylococci are [...] SOCRATES Rao 11/13/2019 Thoracic Surgery Service Pager [phone] * Nilo Larry - 11/13/2019 6:09 AM [...] Nilo Farias 11/13/2019 Thoracic Surgery Team pager #[phone] * Flakita Castro RN - 11/12/2019 7:00 [...] Discharge planning ) Service Thoracic Pager # [phone] e-DH reviewed. Report received from [facility] Patient plan of care discussed with Team and Nursing to assessment for continuing care and discharge needs. [facility]: 3 DECISION MAKER: Attempt Cardiopulmonary Resuscitation - Inpatient, <no information> Ongoing Issues: Needs wound vac and VNA plan is to change vac at bedside on Sunday and d/c after. Current Referral in place: [facility] - Providing Services for : ( RN, ) Barriers to Discharge: Wound Vac approval All paperwork sent to [facility] rep. Still waiting for wound measurements / team notified Family Concerns: None at this time Anticipate Transport at time of discharge: Home with wound vac via family car Plan: CM will continue to follow for coordination of care and to facilitate discharge planning. Kassie Marie RN CM Pager # [phone] The patient has been provided a list of Home Health Agencies/DME vendors which serve their preferred geographic area. A letter describing our affiliations was reviewed with them and they were educated about their right to choose where referrals are placed.. Patient requests referral to [facility]. PHONE: [phone] FAX: [phone] Expected date of discharge: 11/14/19 Referral routed to the Organizational Development Manager for matching with agency/vendor and to provide any required information. * Benedicto Cameron PA - 11/12/2019 8:45 AM EDT [facility] Department of Thoracic Surgery Inpatient [...] to Hosp-Admission (Current) from 11/09/2019 in 4 [facility] Admission (Discharged) from 10/24/2019 in 3 [facility] Weight 77.1 kg (170 lb) [...] Alvarez/SOCRATES Albarran 11/12/2019 Thoracic Surgery Service Pager [phone] * Nilo Larry - 11/12/2019 6:07 AM [...] Nilo Larry 11/12/2019 Thoracic Surgery Team pager #[phone] * Kassie Marie RN - 11/11/2019 3:41 PM EDT Office of Care Management (OCM /Agnes (BA)/ Discharge planning ) Service Thoracic Pager # [phone] [facility] reviewed. Report received from [facility] Patient plan of care discussed with Team and Nursing to assessment for continuing care and discharge needs. [facility]: 2 DECISION MAKER: Attempt Cardiopulmonary Resuscitation - Inpatient, <no information> Ongoing Issues: Wet to dry dressing , Chad drain removed , PO pain meds awaiting culture results Current Referral in place:None Barriers to Discharge: Watch for wound vac will need VNA if wound vac placed Family Concerns: None at this time / [facility] is [facility] of Choice Anticipate Transport at time of discharge: family Plan: CM will continue to follow for coordination of care and to facilitate discharge planning. Kassie Marie RN CM Pager # [phone] * Benedicto Cameron PA - 11/11/2019 8:31 AM EDT [facility] Department of Thoracic Surgery Inpatient Progress Note Patient Name: Tree Lantigua Patient : 1955 Patient Patient Location: [facility]/419-B Attending Surgeon: ARMEN MCKEON REED MILLINGTON, [...] to Hosp-Admission (Current) from 11/09/2019 in 4 [facility] Admission (Discharged) from 10/24/2019 in 3 [facility] Weight 77.1 kg (170 lb) [...] RNA Not Detected Not Detected SARS-CoV-2 Source DOCUMENT PROCESSOR Swab Abscess/Wound Aspirate Culture Specimen: Chest; Abscess [...] SOCRATES Samuels 11/11/2019 Thoracic Surgery Service Pager [phone] * Nilo Larry - 11/11/2019 7:44 AM [...] Nilo Larry 11/11/2019 Thoracic Surgery Team pager #[phone] * Benedicto Cameron PA - 11/10/2019 6:58 PM EDT [facility] Department of Thoracic Surgery Inpatient Progress Note Patient Name: Tree Lantigua Patient : 1955 Patient Patient Location: [address] [place] [address] Attending Surgeon: ARMEN MCKEON, PIYUSH SHAH ID: [...] to Hosp-Admission (Current) from 11/09/2019 in 4 [facility] Admission (Discharged) from 10/24/2019 in 3 [facility] Weight 77.1 kg (170 lb) [...] RNA Not Detected Not Detected SARS-CoV-2 Source DOCUMENT PROCESSOR Swab Abscess/Wound Aspirate Culture Specimen: Chest; Abscess [...] SOCRATES Castle 11/10/2019 Thoracic Surgery Service Pager [phone] * Nilo Larry - 11/10/2019 7:00 AM EDT Thoracic Surgery Inpatient Progress Note Patient Name: Tree Lantigua ; Age: 1 1955; 64 y.o. Room/Bed: [address] [place], [place] [address] Today's Date: 11/10/19 ID: Tree Lantigua is [...] Nilo Larry 11/10/2019 Thoracic Surgery Team pager [phone] * Katya Ortiz MD - 11/10/2019 5:59 [...] RNA Not Detected Not Detected SARS-CoV-2 Source DOCUMENT PROCESSOR Swab Physical Exam Gen: A0x3, NAD, resting comfortably CVS: RRR, no murmurs/rubs/gallops Resp: CTAB, breathing comfortably on RA, dressing in place, c/d/i, has R [address] to continuoussuction -20, no airleak Abd: [...] Navarrete MD - 11/09/2019 1:35 PM EDT [facility] Department of Surgery Consult Note [...] history that includes Thymectomy, Radical Mediast Disssec (67867) (Right, 10/24/2019); Bronchoscopy, Diagnostic (77842) (N/A, 10/24/2019); Thoracotomy With Therapeutic Wedge Resection Initial (Right, 10/24/2019); Injection Anes Agent &/ Steroid Intercostal Nerve Ea Addl Level (92440) (Right, 10/24/2019); Thoracotomy With Therapeutic Wedge Resection [...] any questions regarding this consult, please page [phone]. ?? Sabine Navarrete MD/S PGY2 [phone] 11/09/2019 [...] Outcome: Ongoing (Interventions Implemented as Appropriate) 11/14/19 0661 Coping/Psychosocial Plan Of Care Reviewed With patient [...] PM EDT Clinical Pharmacist Note-Vancomycin Tree Lantigua [id number] 1955 Tree Lantigua is a 64 y.o. [...] have. Alternately, during off-hours you may call [phone] to contact a pharmacist. YEN BUSH RPH Pager [phone] * Plan of Care - Becca Wolfe [...] 30 Days: Yes was here on 10/25/19 [facility] admits in last 30 days. Anticipated Length Of Stay (If known): Vs TBD Current Decision-Making Capacity: Patient is A&Ox4 Has current decision making capacity. Advance Care Planning: Attempt Cardiopulmonary Resuscitation - Inpatient No AD in [facility]. If AD's have not been completed would be surrogate decision maker per [place] surrogate decision making law. Any patient receiving care at [facility] must abide by [place] law. The hierarchy for surrogate decision making [...] (i) The agent with financial power of alodize machine helper or a conservator appointed in accordance with [...] has no concerns about navigating the home [address] [place] [address] Social & Family Supports/Community Resources: Family Extended Emergency Contact Information Primary Emergency Contact: Lillian Tyson Address: [address] [place] [address] [place] Relation: Spouse Health/Prescription Coverage: Primary Insurance: AARP MANAGED MEDICARE Secondary Insurance: N/A Prescription Coverage: Yes Preferred Pharmacy: [id number] - [place], [place] - [address] [place] [address] AT [facility] [address] [address] Other: none Primary Care Provider: Christiana Moore APRN [phone] Patient/Caregiver Goals of Treatment: Deferred Potential Needs for Transition of Care: Rehab/SNF: None anticipated Home Health: None anticipated ( [facility] ) DME: None anticipated Dialysis: None [...] of care planning. Kassie Marie RN CM Magnet Maker Pager # [phone] * Plan of Care - Felicia Vaca [...] (Interventions Implemented as Appropriate) 11/09/19 2100 11/09/19 7019 Viera Fall Risk History of Falling 0 [...] Operative Note Patient Name: Tree Lantigua : [id number] MR#: [id number] Case Date: 11/09/2019 - 11/10/2019 Surgeon: Surgeon(s) [...] site opened. Cavity thoroughly irrigated with pulse coater helper. 19F Chad drain left in the pleural [...] Rojo MD - 11/10/2019 12:58 AM EDT [facility] Operative Note Patient Name: Tree Lantigua : [id number] MR#: [id number] Case Date: 11/09/2019 - 11/10/2019 Surgeon: Surgeon(s) [...] irrigated with normal saline using the pulse coater helper. A previous chest tube site was anesthetized [...] Office [place] [address] Manjula Kitchen MD [facility] [place] [address] documented as of this encounter Procedures Procedure [...] 12:25 AM EDT I&D Hematoma Seroma/Fluid Collection (01200) 11/09/2019 11:53 PM EDT right chest abscess, pleural effusion RAPID COVID-19 PCR ([facility]) STAT 11/09/2019 7:57 PM EDT [...] number below. ? Electronically signed by: YURIY Ramos [facility] ([phone]), at 11/12/2019 8:35 AM Narrative 11/12/2019 8:35 [...] Electronically signed by: Maurilio Mccartney [facility]([phone]), at 11/12/2019 8:35 AM Piyush Rojo MD IMG DX ORDERABLE S * Phosphorus (11/12/2019 5:42 AM EDT) Phosphorus 3.9 2.5 - 4.5 mg/dL [facility] Blood specimen (specimen) 11/12/2019 5:42 AM EDT 11/12/2019 5:48 AM EDT Narrative Resulting Agency Comment Spec In Lab Piyush Rojo MD CHEMISTRY ORDERA BLES Performing Organization Address [facility] Co de Phone Number [facility] [place] [address] * Magnesium (11/12/2019 5:42 AM EDT) Magnesium 0.84 0.69 - 1.07 mmol/L [facility] Blood specimen (specimen) 11/12/2019 5:42 AM EDT 11/12/2019 5:48 AM EDT Narrative Resulting Agency Comment Spec In Lab Piyush Rojo MD CHEMISTRY ORDERA BLES Performing Organization Address [facility]/ZIP Co de Phone Number [facility] [place] [address] * (ABNORMAL) Hemogram (11/12/2019 5:42 AM EDT) White Blood Cell 10.3(H) 4.0 - 9.5 x10(3)/[facility] Red Blood Cell 6.27(H) 4.58 - 5.54 x10(6)/[facility] Hemoglobin 12.3(L) 13.7 - 16.5 gm/dL [facility] Hematocrit 40.8 40.5 - 48.5 % [facility] Mean Cell Volume 65.1(L) 82.9 - 93.1 [facility] Mean Cell Hemoglobin 19.6(L) 27.5 - 32.1 pg [facility] Mean Cell Hemoglobin Concentration 30.1(L) 32.0 - 35.7 gm/dL [facility] Platelet 498(H) 145 - 357 x10(3)/[facility] RDW Standard Deviation 34.4(L) 36.0 - 45.0 [facility] RDW coefficient of variation 15.2(H) 11.4 - 13.8 % [facility] Mean Platelet Volume 9.1 7.6 - 12.9 [facility] NRBC% auto 0.0 % [facility] NRBC Absolute 0.000 0.000 - 0.000 x10(3)/[facility] Blood specimen (specimen) 11/12/2019 5:42 AM EDT 11/12/2019 5:48 AM EDT Narrative Resulting Agency Comment Spec In Lab Piyush Rojo MD HEMATOLOGY ORDER JAYCE [facility] [place] [address] * Basic Metabolic Panel (non-fasting) (11/12/2019 5:42 AM EDT) Pathologist [facility] Glucose 92 65 - 199 mg/dL [facility] Comment:Diabetes: >=200 mg/d L plus symptoms Blood Urea Nitrogen 15 10 - 20 mg/dL [facility] Creatinine 0.81 0.80 - 1.50 mg/dL [facility] Sodium 138 135 - 145 mmol/L [facility] Potassium 3.9 3.5 - 5.0 mmol/L [facility] Comment: Please note: ??Patients with WBC >100,000 may have falsely elevated Potassium levels. ??For accurate Potassium quantification in these patients send serum separator tube (gold top) for subsequent determinations. ??Contact the Clinical Chemistry Laboratory if there are any questions. Chloride 100 98 - 107 mmol/L [facility] Carbon Dioxide 26 22 - 31 mmol/L [facility] Anion Gap 12 5 - 15 mmol/L [facility] Calcium 9.1 8.5 - 10.5 mg/dL [facility] Est Glomerular Filtration Rate 93 >=60 mL/min/1. 73 m?? [facility] Comment: The eGFR was calculated using the CKD-EPI equation. As with all creatinine based estimates of kidney function, eGFR values calculated with the CKD-EPI equation are not accurate in patients with acute kidney failure, extremes of body mass or the acutely ill. http://[employer] [place]/[facility]MCnk[facility] eGFR 108 >=60 mL/min/1. 73 m?? [facility] Comment: The eGFR was calculated using the CKD-EPI equation. As with all creatinine based estimates of kidney function, eGFR values calculated with the CKD-EPI equation are not accurate in patients with acute kidney failure, extremes of body mass or the acutely ill. http://[employer] [place]/[facility] Blood specimen (specimen) 11/12/2019 5:42 AM EDT 11/12/2019 5:48 AM EDT Narrative Resulting Agency Comment Spec In Lab Piyush Rojo MD CHEMISTRY ORDERA BLES [facility] [place] [address] * Vancomycin, trough (11/11/2019 3:01 PM EDT) Vancomycin, Trough 9.5 mg/L [facility] Comment: Therapeutic range for complicated infections [...] MD CHEMISTRY ORDERA BLES Performing Organization Address [facility] de Phone Number [facility] [place] [address] * Phosphorus (11/11/2019 4:09 AM EDT) Phosphorus 3.4 2.5 - 4.5 mg/dL [facility] Blood specimen (specimen) 11/11/2019 4:09 AM EDT 11/11/2019 4:24 AM EDT Narrative Resulting Agency Comment Spec In Lab Piyush Rojo MD CHEMISTRY ORDERA BLES Performing Organization Address [facility] Co de Phone Number [facility] [place] [address] * Magnesium (11/11/2019 4:09 AM EDT) Magnesium 0.84 0.69 - 1.07 mmol/L [facility] Blood specimen (specimen) 11/11/2019 4:09 AM EDT 11/11/2019 4:24 AM EDT Narrative Resulting Agency Comment Spec In Lab Piyush Rojo MD CHEMISTRY ORDERA BLES Performing Organization Address City/[facility] Co de Phone Number [facility] [place] [address] * (ABNORMAL) Hemogram (11/11/2019 4:09 AM EDT) White Blood Cell 13.8(H) 4.0 - 9.5 x10(3)/mc L [facility] Red Blood Cell 5.36 4.58 - 5.54 x10(6)/mc L [facility] Hemoglobin 10.7(L) 13.7 - 16.5 gm/dL [facility] Hematocrit 34.8(L) 40.5 - 48.5 % [facility] Mean Cell Volume 64.9(L) 82.9 - 93.1 fL [facility] Mean Cell Hemoglobin 20.0(L) 27.5 - 32.1 pg [facility] Mean Cell Hemoglobin Concentration 30.7(L) 32.0 - 35.7 gm/dL [facility] Platelet 384(H) 145 - 357 x10(3)/mc L [facility] RDW Standard Deviation 35.5(L) 36.0 - 45.0 fL [facility] RDW coefficient of variation 15.7(H) 11.4 - 13.8 % [facility] Mean Platelet Volume 8.9 7.6 - 12.9 [facility] NRBC% auto 0.0 % [facility] NRBC Absolute 0.000 0.000 - 0.000 x10(3)/mc L [facility] Blood specimen (specimen) 11/11/2019 4:09 AM EDT 11/11/2019 4:24 AM EDT Narrative Resulting Agency Comment Spec In Lab Piyush Rojo MD HEMATOLOGY ORDER JAYCE [facility] [place] [address] * (ABNORMAL) Basic Metabolic Panel (non-fasting) (11/11/2019 4:09 AM EDT) Glucose 117 65 - 199 mg/dL [facility] Comment:Diabetes: >=200 mg/d L plus symptoms Blood Urea Nitrogen 22(H) 10 - 20 mg/dL [facility] Creatinine 0.82 0.80 - 1.50 mg/dL [facility] Sodium 139 135 - 145 mmol/L [facility] Potassium 3.9 3.5 - 5.0 mmol/L [facility] Comment: Please note: ??Patients with WBC >100,000 may have falsely elevated Potassium levels. ??For accurate Potassium quantification in these patients send serum separator tube (gold top) for subsequent determinations. ??Contact the Clinical Chemistry Laboratory if there are any questions. Chloride 102 98 - 107 mmol/L [facility] Carbon Dioxide 25 22 - 31 mmol/L [facility] Anion Gap 12 5 - 15 mmol/L [facility] Calcium 8.6 8.5 - 10.5 mg/dL [facility] Est Glomerular Filtration Rate 93 >=60 mL/min/1. 73 m?? [facility] Comment: The eGFR was calculated using the CKD-EPI equation. As with all creatinine based estimates of kidney function, eGFR values calculated with the CKD-EPI equation are not accurate in patients with acute kidney failure, extremes of body mass or the acutely ill. http://[employer] [place]/[facility] eGFR 108 >=60 mL/min/1. 73 m?? [facility] Comment: The eGFR was calculated using the CKD-EPI equation. As with all creatinine based estimates of kidney function, eGFR values calculated with the CKD-EPI equation are not accurate in patients with acute kidney failure, extremes of body mass or the acutely ill. http://[employer] [place]/DHnkf Blood specimen (specimen) 11/11/2019 4:09 AM EDT 11/11/2019 4:24 AM EDT Narrative Resulting Agency Comment Spec In Lab Piyush RODRIGUEZ [facility] [place] [address] * XR Chest PA & Lateral (Generic) [...] EDT) Phosphorus 4.4 2.5 - 4.5 mg/dL [facility] Blood specimen (specimen) 11/10/2019 8:29 AM EDT 11/10/2019 8:54 AM EDT Narrative Resulting Agency Comment Spec In Lab Piyush Rojo MD CHEMISTRY ORDERA BLES [facility] [place] [address] * Magnesium (11/10/2019 8:29 AM EDT) Magnesium 0.86 0.69 - 1.07 mmol/L [facility] Blood specimen (specimen) 11/10/2019 8:29 AM EDT 11/10/2019 8:54 AM EDT Narrative Resulting Agency Comment Spec In Lab Piyush Rojo MD CHEMISTRY ORDERA BLES Performing Organization Address City/State/[facility] Co de Phone Number [facility] [place] [address] * (ABNORMAL) Hemogram (11/10/2019 8:29 AM EDT) [facility] Blood Cell 14.1(H) 4.0 - 9.5 x10(3)/ L [facility] Red Blood Cell 6.68(H) 4.58 - 5.54 x10(6)/[facility] Hemoglobin 13.2(L) 13.7 - 16.5 gm/dL [facility] Hematocrit 42.8 40.5 - 48.5 % [facility] Mean Cell Volume 64.1(L) 82.9 - 93.1 [facility] Mean Cell Hemoglobin 19.8(L) 27.5 - 32.1 pg [facility] Mean Cell Hemoglobin Concentration 30.8(L) 32.0 - 35.7 gm/dL [facility] Platelet 485(H) 145 - 357 x10(3)/[facility] RDW Standard Deviation 33.9(L) 36.0 - 45.0 [facility] RDW coefficient of variation 16.2(H) 11.4 - 13.8 % [facility] Mean Platelet Volume 9.6 7.6 - 12.9 [facility] NRBC% auto 0.0 % [facility] NRBC Absolute 0.000 0.000 - 0.000 x10(3)/ L [facility] Blood specimen (specimen) 11/10/2019 8:29 AM EDT 11/10/2019 8:54 AM EDT Narrative Resulting Agency Comment Spec In Lab Piyush Rojo MD HEMATOLOGY ORDER JAYCE [facility] [place] [address] * (ABNORMAL) Basic Metabolic Panel (non-fasting) (11/10/2019 8:29 AM EDT) Glucose 123 65 - 199 mg/dL [facility] Comment:Diabetes: >=200 mg/d L plus symptoms Blood Urea Nitrogen 14 10 - 20 mg/dL [facility] Creatinine 0.75(L) 0.80 - 1.50 mg/dL [facility] Sodium 137 135 - 145 mmol/L [facility] Potassium 4.9 3.5 - 5.0 mmol/L [facility] Comment: Please note: ??Patients with WBC >100,000 may have falsely elevated Potassium levels. ??For accurate Potassium quantification in these patients send serum separator tube (gold top) for subsequent determinations. ??Contact the Clinical Chemistry Laboratory if there are any questions. Chloride 100 98 - 107 mmol/L [facility] Carbon Dioxide 21(L) 22 - 31 mmol/L [facility] Anion Gap 16(H) 5 - 15 mmol/L [facility] Calcium 9.4 8.5 - 10.5 mg/dL [facility] Est Glomerular Filtration Rate 96 >=60 mL/min/1. 73 m?? [facility] Comment: The eGFR was calculated using the CKD-EPI equation. As with all creatinine based estimates of kidney function, eGFR values calculated with the CKD-EPI equation are not accurate in patients with acute kidney failure, extremes of body mass or the acutely ill. http://[employer] [place]/DHMCnkf eGFR 112 >=60 mL/min/1. 73 m?? [facility] Comment: The eGFR was calculated using the CKD-EPI equation. As with all creatinine based estimates of kidney function, eGFR values calculated with the CKD-EPI equation are not accurate in patients with acute kidney failure, extremes of body mass or the acutely ill. http://[employer] [place]/[facility]MCnkf Blood specimen (specimen) 11/10/2019 8:29 AM EDT 11/10/2019 8:54 AM EDT Narrative Resulting Agency Comment Spec In Lab Piyush Rojo MD CHEMISTRY ORDERA BLES Performing Organization Address [facility] Co de Phone Number [facility] [place] [address] * Anaerobic Culture (11/10/2019 12:25 AM EDT) Anaerobic Culture No anaerobic organisms isolated [facility] Specimen from abscess (specimen) THORACIC STRUCTURE / Unknown 11/10/2019 12:25 AM EDT 11/10/2019 7:55 AM EDT Comment:RIGHT CHEST WALL ABS CESS. Narrative Resulting Agency Comment Spec In Lab Piyush Rojo MD MICROBIOLOGY - G ENERAL ORDERABLES Performing Organization Address [facility] Co de Phone Number [facility] [place] [address] * (ABNORMAL) Abscess/Wound Aspirate Culture (11/10/2019 12:25 AM EDT) Abscess/Wound Aspirate Culture Moderate Staphylococcus aureus(A) [facility] Gram Stain Moderate Neutrophils seen Few Gram Positive Cocci seen (A) [facility] Organism Staphylococcus aureus(A) [facility] Organism Gram Positive Cocci(A) [facility] Specimen from abscess (specimen) THORACIC [...] Sensitive Comment:Gentamicin i s not appropriate for [place]-therapy. Staphylococcus aureus Levofloxacin VITEK 2 METHOD Sensitive [...] Sensitive Piyush Rojo MD MICROBIOLOGY - G [facility] ORDERABLES [facility] [place] [address] * COVID-19 PCR (11/09/2019 7:57 PM EDT) [facility] SARS-CoV-2 RNA (Rapid) Not Detected Not Detected [facility] Comment: This result should be [...] using the Simplexa COVID-19 Direct Assay by [employer] as authorized by the FDA issued Emergency [...] Department of Pathology and Laboratory Medicine at [facility], certified under the Clinical Laboratory [...] Information for Healthcare Professionals (https://www.cdc.gov/coronavirus/2019-ncov/hcp/index.html). SARS-CoV-2 Source DOCUMENT PROCESSOR Swab [facility] Nasopharyngeal swab (specimen) 11/09/2019 7:57 PM EDT 11/09/2019 8:53 PM EDT Comment:Symptoms->Surveillan ce Narrative Resulting Agency Comment Spec In Lab Robert Brambila MD MICROBIOLOGY - GENER AL ORDERABLES [facility] [place] [address] * CT Chest w Contrast (11/09/2019 1:54 [...] AM EDT) Blue Hold Sample in lab. [facility] Blood specimen (specimen) Venous Draw / Unknown 11/09/2019 10:50 AM EDT 11/09/2019 10:54 AM EDT Emmett Reynolds MD HEMATOLOGY ORDERABLE S Performing Organization Address City/[facility]/ZIP Co de Phone Number [facility] [place] [address] * (ABNORMAL) Differential, Automated (11/09/2019 10:50 AM EDT) Neutrophil % 76.8 % [facility] Neutrophil Absolute 11.22(H) 1.70 - 6.10 x10(3)/mc L [facility] Lymph % 10.9 % [facility] Lymphocytes Abs 1.6 0.9 - 3.2 x10(3)/ L [facility] Monocyte % 9.0 % [facility] Monocyte Abs 1.3(H) 0.3 - 0.9 x10(3)/ L [facility] Eos % 1.2 % [facility] Eosinophils Abs 0.2 0.0 - 0.4 x10(3)/[facility] Basophil % 0.5 % [facility] Baso Absolute 0.1 0.0 - 0.1 x10(3)/[facility] Immature Gran % 1.60 % [facility] Comment: Immature granulocytes(IG's)percentage and absolute count will include metamyelocytes, myelocytes, and promyelocytes. Blood smears from CBCs yielding IG's will be scanned manually for concordance. If this scan disagrees with the automated IG or if promyelocytes are noted, a manual differential will be performed. Immature Gran Absolute 0.24(H) 0.00 - 0.04 x10(3)/ L [facility] Blood specimen (specimen) 11/09/2019 10:50 AM EDT 11/09/2019 10:53 AM EDT Narrative Resulting Agency Comment Spec In Lab Emmett Reynolds MD HEMATOLOGY ORDERABLE S Performing Organization Address City/[facility]/ZIP Co de Phone Number [facility] [place] [address] * (ABNORMAL) Hemogram (11/09/2019 10:50 AM EDT) [facility] White Blood Cell 14.6(H) 4.0 - 9.5 x10(3)/ L [facility] Red Blood Cell 6.10(H) 4.58 - 5.54 x10(6)/[facility] Hemoglobin 12.2(L) 13.7 - 16.5 gm/dL [facility] Hematocrit 39.7(L) 40.5 - 48.5 % [facility] Mean Cell Volume 65.1(L) 82.9 - 93.1 fL [facility] Mean Cell Hemoglobin 20.0(L) 27.5 - 32.1 pg [facility] Mean Cell Hemoglobin Concentration 30.7(L) 32.0 - 35.7 gm/dL [facility] Platelet 459(H) 145 - 357 x10(3)/[facility] RDW Standard Deviation 35.4(L) 36.0 - 45.0 fL [facility] RDW coefficient of variation 16.5(H) 11.4 - 13.8 % [facility] Mean Platelet Volume 9.1 7.6 - 12.9 fL [facility] NRBC% auto 0.0 % [facility] NRBC Absolute 0.000 0.000 - 0.000 x10(3)/[facility] Blood specimen (specimen) 11/09/2019 10:50 AM EDT 11/09/2019 10:53 AM EDT Narrative Resulting Agency Comment Spec In Lab Emmett Reynolds MD HEMATOLOGY ORDERABLE S [facility] [place] [address] * Basic Metabolic Panel (non-fasting) (11/09/2019 10:50 AM EDT) Glucose 95 65 - 199 mg/dL [facility] Comment:Diabetes: >=200 mg/d L plus symptoms Blood Urea Nitrogen 14 10 - 20 mg/dL [facility] Creatinine 0.80 0.80 - 1.50 mg/dL [facility] Sodium 138 135 - 145 mmol/L [facility] Potassium 4.4 3.5 - 5.0 mmol/L [facility] Comment: Please note: ??Patients with WBC >100,000 may have falsely elevated Potassium levels. ??For accurate Potassium quantification in these patients send serum separator tube (gold top) for subsequent determinations. ??Contact the Clinical Chemistry Laboratory if there are any questions. Chloride 100 98 - 107 mmol/L [facility] Carbon Dioxide 26 22 - 31 mmol/L [facility] Anion Gap 12 5 - 15 mmol/L [facility] Calcium 8.7 8.5 - 10.5 mg/dL [facility] Est Glomerular Filtration Rate 94 >=60 mL/min/1. 73 m?? [facility] Comment: The eGFR was calculated using the CKD-EPI equation. As with all creatinine based estimates of kidney function, eGFR values calculated with the CKD-EPI equation are not accurate in patients with acute kidney failure, extremes of body mass or the acutely ill. http://[employer] [place]/[facility]ISnkf eGFR 109 >=60 mL/min/1. 73 m?? [facility] Comment: The eGFR was calculated using the CKD-EPI equation. As with all creatinine based estimates of kidney function, eGFR values calculated with the CKD-EPI equation are not accurate in patients with acute kidney failure, extremes of body mass or the acutely ill. http://[employer] [place]/[facility]ISnkf Blood specimen (specimen) 11/09/2019 10:50 AM EDT 11/09/2019 10:53 AM EDT Narrative Resulting Agency Comment Spec In Lab Emmett Reynolds MD CHEMISTRY ORDERABLES [facility] [place] [address] * XR Chest PA & Lateral (Generic) [...] below. ? Electronically signed by: YURIY Hernandez [facility] ([phone]), at 11/09/2019 11:31 AM Narrative 11/09/2019 11:31 [...] Routine documented in this encounter Care Teams Mechanical Engineering Director Relationship Specialty Start Date End Date Christiana Moore APRN [address] [place] [address] PCP - General Family Medicine 09/26/19 documented as of this encounter
--- OUTSIDE RECORDS SUMMARY | 2024-01-25 00:34 | XMS_ITS | Encounter Summary ---
Author Organization [facility] [place] [address] Care Team Providers Care Corking Machine Operator Name Role Phone Christiana Moore APRN Primary Care Provider [phone] Encounter Details Date Type Department Care Team (Latest Contact Info) Description 10/07/2019 1:24 PM EDT - 10/07/2019 11:59 PM EDT Hospital [place] [address] Mediastinal mass Discharge Disposition: Home Social History [...] PM EDT Office [place] [address] [facility] [place] [address] documented as of this encounter Procedures Procedure [...] chest documented in this encounter Care Teams Corking Machine Operator Relationship Specialty Start Date End Date Christiana Moore APRN [address] [place] [address] PCP - General Family Medicine 09/26/19 documented as of this encounter
--- OUTSIDE RECORDS SUMMARY | 2024-01-25 00:34 | XMS_ITS | Encounter Summary ---
Author Organization [facility] [place] [address] Care Team Providers Care Topper Press Operator Name Role Phone Unavailable Primary Care Provider Unavailabl e Encounter Details Date Type Department Care Team (Late st Contact Info) Description 09/25/2019 12:05 AM EDT Ancillary Procedure Radiology Library at [facility] [place] [address] Christiana Moore APRN [address] [place] [address] Social History Tobacco Use Types Packs/Day Years [...] PM EDT Office [place] [address] Manjula Kitchen MD [facility] [address] documented as of this encounter Procedures Procedure [...] APRN IMG FILM LIBRARY ORD ERABLES [facility] [place], [place] documented in this encounter Visit Diagnoses Not on filedocumented in this encounter
--- OUTSIDE RECORDS SUMMARY | 2024-01-25 00:34 | XMS_ITS | Encounter Summary ---
Author Organization [facility] Address [address] [place] [address] Care Team Providers Care Trailer Steerer Name Role Phone Unknown, Provider Primary Care Provider Reason for Referral * Radiology Services (Routine) - Closed Specialty Diagnoses / Procedures Referred By Contac t Referred To Contact Diagnoses Primary osteoarthritis involving multiple joints Procedures XR HAND LEFT 3 OR MORE VIEWS Guillermo Zhou Chi, MD [address] [place] [phone] Referral ID Status Reason Start Date Expiration Date Visits Re quested Visits Authorized [id number] Closed 10/25/2020 1 1 * Radiology Services (Routine) - Order Cancelled Specialty Diagnoses / Procedures Referred By Contac t Referred To Contact Diagnoses Primary osteoarthritis involving multiple joints Procedures XR HAND LEFT 3 OR MORE VIEWS Guillermo Zhou Chi, MD [address] [place] [phone] Referral ID Status Reason Start Date Expiration Date V isits Requested Visits Authorized [id number] Order Cancelled 10/25/2020 1 1 Reason for Visit * Radiology Services (Routine) - Order Cancelled Specialty Diagnoses / Procedures Referred By Contac t Referred To Contact Diagnoses Primary osteoarthritis involving multiple joints Procedures XR HAND LEFT 3 OR MORE VIEWS Guillermo Zhou Chi, MD [address] [place] [phone] Referral ID Status Reason Start Date Expiration Date V isits Requested Visits Authorized [id number] Order Cancelled 10/25/2020 1 1 Encounter Details Date Type Department Care Team (Latest Contact Info) Description 10/25/2020 11:39 EDT - 10/25/2020 23:59 EDT Hospital Encounter [facility] Radiology Xray Outpatient - [address] [address] Primary osteoarthritis involving multiple joints [...] joints documented in this encounter Care Teams Trailer Steerer Relationship Specialty Start Date End Date Unknown, Provider, PCP - General 10/22/20 documented as of this encounter
--- OUTSIDE RECORDS SUMMARY | 2024-01-25 00:34 | XMS_ITS | Encounter Summary ---
Author Organization [facility] Address [address] [place] [address] Care Team Providers Care Circle Beveler Name Role Phone Unknown, Provider Primary Care Provider [phone] Encounter Details Date Type Department Care Team (Late st Contact Info) Description 03/15/2023 Lab Requisition [facility] Pathology & Laboratory Medicine - [facility] [address] [place] [address] Carlos Adamson MD [address] [place] [phone] Disorder of the skin and subcutaneous tissue, [...] explore management options, if applicable. 03/20/2023 11:05 [facility] Final Diagnosis A. 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 See comment. 03/20/2023 11:05 [facility] Diagnosis Comment The excision [...] evidence of a neoplastic process. 03/20/2023 11:05 [facility] Attestation By the signature below, the attending physician certifies that they have 1) personally conducted a gross and/or microscopic examination of the described specimen(s), and/or personally interpreted the results of laboratory testing of the described specimen(s), and 2) personally rendered or confirmed the above diagnosis. 03/20/2023 11:05 [facility] at [address]5 Microscopic Description [...] no deep bacteria are identified. 03/20/2023 11:05 [facility] Clinical History Clinical diagnosis code: L98.9 03/20/2023 11:05 [facility] Gross Description A. [...] face. Beti Friend 03/16/2023 10:44 03/20/2023 11:05 [facility] Performing Lab [facility] 03/20/2023 11:05 [facility] Scanned Images 03/20/2023 11:05 [facility] Tissue SPECIMEN FROM SKIN / Unknown 03/15/2023 7:45 EST 03/15/2023 23:26 EST Carlos Adamson MD PATHOLOGY ORDERABLES [facility] [address] [place] [address] documented in this encounter Visit Diagnoses Diagnosis Disorder of the skin and subcutaneous tissue, unspecified documented in this encounter Care Teams Circle Beveler Relationship Specialty Start Date End Date Unknown, Provider, PCP - General 10/22/20 documented as of this encounter
--- OUTSIDE RECORDS SUMMARY | 2024-01-25 00:34 | XMS_ITS | Encounter Summary ---
Author Organization [facility] Address [address] [place] [address] Care Team Providers Care Certified Family Mediator Name Role Phone Unknown, Provider Primary Care Provider Encounter Details Date Type Department Care Team (Late st Contact Info) Description 10/25/2020 12:30 EDT Phlebotomy Only [facility] 2 Phlebotomy [address] [place] [address] Automotive Fuel Injection Servicer, Acc Phlebotomy Primary osteoarthritis involving multiple joints; [...] Lyme Ab Negative Negative 10/25/2020 14:49 EDT [facility] Blood VENOUS BLOOD / Unknown Venipuncture / Unknown 10/25/2020 12:56 EDT 10/25/2020 13:19 EDT Narrative Authorizing Provider Result Armando Zhou MD IMMUNOLOGY AND SEROL OGY ORDERABLES Performing Organization Address City/[facility] Co de Phone Number [facility] [address] [place] [address] * CCP ANTIBODIES (10/25/2020 12:56 EDT) CCP Antibodies <2.5 <5.0 U/mL 10/25/2020 14:45 EDT [facility] Blood VENOUS BLOOD / Unknown Venipuncture / Unknown 10/25/2020 12:56 EDT 10/25/2020 13:19 EDT Narrative Authorizing Provider Result Armando Zhou MD IMMUNOLOGY AND SEROL OGY ORDERABLES Performing Organization Address City/[facility]/ZIP Co de Phone Number [facility] [address] [place] [address] documented in this encounter Visit Diagnoses Diagnosis Primary osteoarthritis involving multiple joints Polyarthralgia Pain in joint, multiple sites documented in this encounter Care Teams Certified Family Mediator Relationship Specialty Start Date End Date Unknown, Provider, PCP - General 10/22/20 documented as of this encounter
--- OUTSIDE RECORDS SUMMARY | 2024-01-25 00:34 | XMS_ITS | Clinical Summary ---
Author Organization [facility] Address [address] [place] [address] Care Team Providers Care Fat Purification Worker Name Role Phone Unknown, Provider Primary Care Provider [phone] Allergies Active Allergy Reactions Criticality Noted Date Comments Wasp Venom Medium 09/30/2019 Medications Medication Sig Dispensed Refills Start Date End Date Status ibuprofen (MOTRIN) 200 mg tablet Take 600 mg by mouth every 6 hours. 11/14/2019 Active Encounters Date Type Department Care Team Description 01/22/2024 Lab Requisition [facility] Pathology & Laboratory Medicine - [address] [address] Outr Resulting Lab, Provider from Last 3 Months Social History Tobacco [...] Fall Risk Screening 10/25/2021 10/25/2020 COVID-19 Vaccine ( season) 2023 Hepatitis C Screen Completed 09/24/2019 Procedures Procedure Name Priority Date/Time Associated Diagnosis Comments PSA TOTAL, DIAGNOSTIC Routine 01/22/2024 11:12 EDT HEPATITIS C AB W REFLEX TO HCV RNA BY PCR Routine 09/24/2019 14:40 EDT from Last 3 Months or Most Recently Relevant to Health Maintenance Results * PSA TOTAL, DIAGNOSTIC (01/22/2024 11:12 EDT) PSA 3.4 <=4.5 ng/mL 01/22/2024 22:59 EDT [facility] Blood VENOUS BLOOD / Unknown 01/22/2024 11:12 EDT 01/22/2024 22:00 EDT Narrative [facility] - 01/22/2024 22:59 EDT NOTE: Serum PSA concentration should not be interpreted as absolute evidence for the presence or absence of malignant disease. Assayed on Siemens ADVIA Centaur XPT using chemiluminescent technology.??Values obtained by using different assay methods cannot be used interchangeably. Provider Outr Resulting Lab CHEMISTRY & BLOOD GAS ORDERABLES Performing Organization Address City/[facility]/ZIP Co de Phone Number [facility] [address] [place], [place] [id number] * HEPATITIS C AB W REFLEX TO HCV RNA BY PCR (09/24/2019 14:40 EDT) Hep C Antibody Negative Negative 09/26/2019 11:28 EDT [facility] Blood VENOUS BLOOD / Unknown 09/24/2019 14:40 EDT 09/25/2019 15:54 EDT Provider Outr Resulting Lab CHEMISTRY & BLOOD GAS ORDERABLES Performing Organization Address City/[facility]/ZIP Co de Phone Number [facility] [address] [place] [address] from Last 3 Months or Most Recently Relevant to Health Maintenance [employer] Personal/Family Self [address] [facility] [place] [address] [employer] Personal/Family Self [address] [facility] [place] [address] [employer] Personal[place]Family Self [address] [facility] [place] [address] [employer] Personal[place]Family Self [address] [facility] [place] [address] [employer] Personal/Family Self [address] [facility] [place] [address] [employer] Personal/Family Self [address] [facility] [place] [address] Care Teams Fat Purification Worker Relationship Specialty Start Date End Date Unknown, Provider, PCP - General 10/22/20
--- OUTSIDE RECORDS SUMMARY | 2024-01-25 00:34 | XMS_ITS | Encounter Summary ---
Author Organization [facility] [place] [address] Care Team Providers Care Plastic Welding Machine Operator Name Role Phone Oscar Christiana RYAN Primary Care Provider [phone] Reason for Visit * Diagnostic Test (Routine) - Closed Specialty Diagnoses / Procedures Referred By Contac t Referred To Contact Radiology Diagnoses Mediastinal mass Procedures NM PET CT Skull Base to Mid-thigh Quentin Carlin MD [facility] [place] [address] [facility] [place] [address] Referral ID Status Reason Start Date Expiration Date V isits Requested Visits Authorized [id number] Closed Specialty Service Requested 10/06/2019 11/20/2019 1 1 Encounter Details Date Type Department Care Team (Latest Contact Info) Description 10/08/2019 8:50 AM EDT Hospital En[place] [address] Quentin Carlin MD [facility] [place] [address] Discharge Disposition: Home Social History [...] PM EDT Office [place] [address] Manjula Kitchen MD [facility] [place] [address] documented as of this encounter Procedures Procedure [...] below. ? Electronically signed by: Chris Sutton [facility] ([phone]), at 10/08/2019 11:40 AM Narrative 10/08/2019 11:40 AM EDT EXAMINATION: NM PET CT SKULL BASE TO MID-THIGH ? CLINICAL HISTORY: Metastatic disease evaluation hx of mediastinal mass, possible thymoma stage IV, please eval for changes, evidence of disease, metastatic disease TECHNIQUE: Following IV injection of 00-xnzngp-0-deoxyglucose (FDG) a standard uptake of approximately 60 [...] Arm documented in this encounter Care Teams Plastic Welding Machine Operator Relationship Specialty Start Date End Date Christiana Moore APRN [address] [place] [address] PCP - General Family Medicine 09/26/19 documented as of this encounter
--- OUTSIDE RECORDS SUMMARY | 2024-01-25 00:34 | XMS_ITS | Encounter Summary ---
Author Organization [facility] Address [address] [place] [address] Care Team Providers Care Swiss Type Screw Machine Operator Name Role Phone Unknown, Provider Primary Care Provider [phone] Encounter Details Date Type Department Care Team (Late st Contact Info) Description 01/22/2024 Lab Requisition [facility] Pathology & Laboratory Medicine - [facility] [address] [place] [address] Outr Resulting Lab, Provider Social History Tobacco [...] PSA TOTAL, DIAGNOSTIC Routine 01/22/2024 11:12 EDT documented in this encounter Results * PSA TOTAL, DIAGNOSTIC (01/22/2024 11:12 EDT) PSA 3.4 <=4.5 ng/mL 01/22/2024 22:59 EDT [facility] Blood VENOUS BLOOD / Unknown 01/22/2024 11:12 EDT 01/22/2024 22:00 EDT Narrative [facility] - 01/22/2024 22:59 EDT NOTE: Serum PSA concentration should not be interpreted as absolute evidence for the presence or absence of malignant disease. Assayed on Siemens Bookeraur XPT using chemiluminescent technology.??Values obtained by using different assay methods cannot be used interchangeably. Provider Outr Resulting Lab CHEMISTRY & BLOOD GAS ORDERABLES [facility] [address] [place] [address] documented in this encounter Visit Diagnoses Not on filedocumented in this encounter Care Teams Swiss Type Screw Machine Operator Relationship Specialty Start Date End Date Unknown, Provider, PCP - General 10/22/20 documented as of this encounter
--- OUTSIDE RECORDS SUMMARY | 2024-01-25 00:34 | XMS_ITS | Encounter Summary ---
Author Organization [facility] [place] [address] Care Team Providers Care Box Toe Buffer Name Role Phone Christiana Moore APRN Primary Care Provider [phone] Reason for Referral * Diagnostic Test (Routine) - Closed Specialty Diagnoses / Procedures Referred By Contac t Referred To Contact Radiology Diagnoses Mediastinal mass Procedures NM PET CT Skull Base to Mid-thigh Quentin Carlin MD [facility] [place] [address] [place] [address] Referral ID Status Reason Start Date Expiration Date V isits Requested Visits Authorized [id number] Closed Specialty Service Requested 10/06/2019 11/20/2019 1 1 Reason for Visit * Diagnostic Test (Routine) - Closed Specialty Diagnoses / Procedures Referred By Contac t Referred To Contact Radiology Diagnoses Mediastinal mass Procedures NM PET CT Skull Base to Mid-thigh Quentin Carlin MD [facility] [place] [address] [place] [address] Referral ID Status Reason Start Date Expiration Date V isits Requested Visits Authorized [id number] Closed Specialty Service Requested 10/06/2019 11/20/2019 1 1 Encounter Details Date Type Department Care Team (Latest Contact Info) Description 10/08/2019 8:50 AM EDT Hospital En[place] [address] Quentin Carlin MD [facility] [place] [address] Mediastinal mass Discharge Disposition: Home Social History [...] PM EDT Office [place] [phone] Manjula Kitchen MD [facility] GENERAL SURGERY [place], [place] [phone] documented as of this encounter Procedures Procedure [...] metastatic disease TECHNIQUE: Following IV injection of 56-ssyqyb-3-deoxyglucose (FDG) a standard uptake of approximately 60 [...] TEST O [facility] [place] [address] documented in this encounter Visit Diagnoses Diagnosis Mediastinal mass Swelling, mass, or lump in chest documented in this encounter Care Teams Box Toe Buffer Relationship Specialty Start Date End Date Christiana Moore APRN [address] [place] [address] PCP - General Family Medicine 09/26/19 documented as of this encounter
--- OUTSIDE RECORDS SUMMARY | 2024-01-25 00:34 | XMS_ITS | Encounter Summary ---
Author Organization [facility] [place] [address] Care Team Providers Care Wood Getter Name Role Phone Christiana Moore APRN Primary Care Provider Encounter Details Date Type Department Care Team (Late st Contact Info) Description 10/20/2019 [place] [phone] Kim Hinton Social History Tobacco Use Types [...] patient. Ordering provider: Dr. Soares Testing Facility: [facility] Date of Testin10/21/2019 Time of Testin:15am Symptoms: na * Telephone Encounter - Kim Hinton - 10/20/2019 6:12 PM EDT LM to schedule Covid testing for surgery 10/24/2019 documented in this encounter Plan of Treatment Upcoming Encounters Date Type Department Care Team (Late st Contact Info) Description 02/08/2024 1:00 PM EDT Office [place] [address] Manjula Kitchen MD [facility] [place] [place] [address] documented as of this encounter Visit Diagnoses Not on filedocumented in this encounter Additional Health Concerns Infection Onset Date Last Indicated Resolved Time Rule Out Tuberculosis 10/24/2019 10/24/20192019 2:01 PM EDT documented as of this encounter Care Teams Wood Getter Relationship Specialty Start Date End Date Christiana Moore APRN [address] [place] [address] PCP - General Family Medicine 09/26/19 documented as of this encounter
--- OUTSIDE RECORDS SUMMARY | 2024-01-25 00:34 | XMS_ITS | Encounter Summary ---
Author Organization [facility] [place] [address] Care Team Providers Care Mortar Carrier Name Role Phone Oscar Christiana RYAN Primary Care Provider [phone] Encounter Details Date Type Department Care Team (Late st Contact Info) Description 09/30/2019 3:15 PM EDT Clinical [place] [phone] Mediastinal mass Social History Tobacco Use Types [...] PM EDT Office Visit General Surgery at [facility] [place] [address] Manjula Kitchen MD [facility] [place] [address] documented as of this encounter Procedures Procedure [...] (Bezet) 425 ms MUSE SYSTEM Calculated P [place] 45 degrees MUSE SYSTEM Calculated R [place] 21 degrees MUSE SYSTEM Calculated T [place] 43 degrees MUSE SYSTEM INTERPRETATION Normal sinus [...] chest documented in this encounter Care Teams Mortar Carrier Relationship Specialty Start Date End Date Christiana Moore APRN [address] [place] [address] PCP - General Family Medicine 09/26/19 documented as of this encounter
--- OUTSIDE RECORDS SUMMARY | 2024-01-25 00:34 | XMS_ITS | Encounter Summary ---
Author Organization [facility] Address [address] [place] [address] Care Team Providers Care Examining Chair Assembler Name Role Phone Unknown, Provider Primary Care Provider [phone] Reason for Visit * Reason Onset Date Comments Other 11/11/2020 Encounter Details Date Type Department Care Team (Late st Contact Info) Description 11/11/2020 Telephone [facility] Rheumatology & Immunology - [address] [address] Gato Norris MD [address] [place] [phone] Other Social History Tobacco Use Types Packs/Day [...] on filedocumented in this encounter Care Teams Examining Chair Assembler Relationship Specialty Start Date End Date Unknown, Provider, PCP - General 10/22/20 documented as of this encounter
--- OUTSIDE RECORDS SUMMARY | 2024-01-25 00:34 | XMS_ITS | Encounter Summary ---
Author Organization [facility] Address [address] [place] [address] Care Team Providers Care Electromyographic Technician Name Role Phone Unknown, Provider Primary Care Provider [phone] Encounter Details Date Type Department Care Team (Late st Contact Info) Description 01/17/2023 Lab Requisition [facility] Pathology & Laboratory Medicine - [facility] [address] [place] [address] Outr Resulting Lab, Provider Social History Tobacco [...] PSA 2.8 <=4.5 ng/mL 01/17/2023 22:53 EDT [facility] Blood VENOUS BLOOD / Unknown 01/17/2023 11:00 EDT 01/17/2023 21:56 EDT Narrative [facility] - 01/17/2023 22:53 EDT NOTE: Serum PSA concentration should not be interpreted as absolute evidence for the presence or absence of malignant disease. Assayed on Siemens Big Stageaur XPT using chemiluminescent technology.??Values obtained by using different assay methods cannot be used interchangeably. Provider Outr Resulting Lab CHEMISTRY & BLOOD GAS ORDERABLES [facility] [address] [place] [address] documented in this encounter Visit Diagnoses Not on filedocumented in this encounter Care Teams Electromyographic Technician Relationship Specialty Start Date End Date Unknown, Provider, PCP - General 10/22/20 documented as of this encounter
--- OUTSIDE RECORDS SUMMARY | 2024-01-25 00:34 | XMS_ITS | Referral Summary ---
Author Organization [facility] Address [address] [place] [address] Care Team Providers Care Mixing Technician Name Role Phone Unknown, Provider Primary Care Provider [phone] Encounters Date Type Department Care Team Description 01/22/2024 Lab Requisition [facility] Pathology & Laboratory Medicine - [facility] [address] [place] [address] Outr Resulting Lab, Provider from Last 3 Months Allergies Active Allergy Reactions Criticality Noted Date [...] PSA 3.4 <=4.5 ng/mL 01/22/2024 22:59 EDT [facility] Blood VENOUS BLOOD / Unknown 01/22/2024 11:12 EDT 01/22/2024 22:00 EDT Narrative [facility] - 01/22/2024 22:59 EDT NOTE: Serum PSA concentration should not be interpreted as absolute evidence for the presence or absence of malignant disease. Assayed on Siemens ADVIA Centaur XPT using chemiluminescent technology.??Values obtained by using different assay methods cannot be used interchangeably. Provider Outr Resulting Lab CHEMISTRY & BLOOD GAS ORDERABLES Performing Organization Address [facility]/ZIP Co de Phone Number [facility] [address] [place] [phone] * HEPATITIS C AB W REFLEX TO HCV RNA BY PCR (09/24/2019 14:40 EDT) Hep C Antibody Negative Negative 09/26/2019 11:28 EDT [facility] Blood VENOUS BLOOD / Unknown 09/24/2019 14:40 EDT 09/25/2019 15:54 EDT Provider Outr Resulting Lab CHEMISTRY & BLOOD GAS ORDERABLES Performing Organization Address [facility]/ZIP Co de Phone Number [facility] [address] [place] [phone] from Last 3 Months or Most Recently Relevant to Health Maintenance [employer] Personal/Family Self [address] [facility] [address] [place] [address] [employer] Personal/Family Self 1955 [facility] [address] [place] [address] [place] Personal/Family Self 1955 [address] [place] [address] [employer] [place] Personal/Family Self 1955 [facility] [address] [place] [address] [employer] [place] Personal/Family Self [address] [facility] [address] [place] [address] [employer] [place] Personal/Family Self 1955 [facility] [address] [place] [address] Care Teams Mixing Technician Relationship Specialty Start Date End Date Unknown, Provider, PCP - General 10/22/20
--- OUTSIDE RECORDS SUMMARY | 2024-01-25 00:34 | XMS_ITS | Encounter Summary ---
Author Organization [facility] [place] [place] [address] Care Team Providers Care Filling Hand Name Role Phone Christiana Moore APRN Primary Care Provider [phone] Encounter Details Date Type Department Care Team (Late st Contact Info) Description 10/06/2019 Orders [place] [phone] uQentin Carlin MD [facility] [place] [address] Social History Tobacco Use Types Packs/Day Years [...] PM EDT Office [place] [phone] Manjula Kitchen MD [facility] [place] [address] documented as of this encounter Visit Diagnoses Not on filedocumented in this encounter Care Teams Filling Hand Relationship Specialty Start Date End Date Christiana Moore APRN [address] [place] [address] PCP - General Family Medicine 09/26/19 documented as of this encounter
--- OUTSIDE RECORDS SUMMARY | 2024-01-25 00:34 | XMS_ITS | Encounter Summary ---
Author Organization [facility] Address [address] [place] [address] Care Team Providers Care Coil Binder Name Role Phone Unknown, Provider Primary Care Provider [phone] Encounter Details Date Type Department Care Team (Late st Contact Info) Description 01/25/2021 Lab Requisition [facility] Pathology & Laboratory Medicine - [facility] [address] [place] [address] Jun Gong MD [address] [place] [address] [address], [place] [id number] Encounter for screening for malignant neoplasm of [...] explore management options, if applicable. 01/28/2021 11:53 [facility] Final Diagnosis A. COLON, CECUM, BIOPSY: - Fragments of tubular adenoma(s) B. COLON, ASCENDING, BIOPSY: - Fragments of tubular adenoma(s) C. COLON, TRANSVERSE, BIOPSY: - Fragments of tubular adenoma(s) D. COLON, SIGMOID, BIOPSY: - Villous adenoma 01/28/2021 11:53 [facility] Attestation By the signature below, the attending physician certifies that they have 1) personally conducted a gross and/or microscopic examination of the described specimen(s), and/or personally interpreted the results of laboratory testing of the described specimen(s), and 2) personally rendered or confirmed the above diagnosis. 01/28/2021 11:53 [facility] at 1153 Clinical History Colon cancer screening 01/28/2021 11:53 [facility] Gross Description A. [...] SOCRATES BENOIT(ASCP) 01/25/2021 9:50 01/28/2021 11:53 EDT [facility] Performing Lab [facility] 01/28/2021 11:53 EDT [facility] Scanned Images 01/28/2021 11:53 EDT [facility] Tissue ENTIRE SIGMOID COLON / Unknown 01/24/2021 11:48 EDT 01/25/2021 8:50 EDT Tissue specimen (specimen) ASCENDING COLON STRUCTURE / Unknown 01/24/2021 11:48 EDT 01/25/2021 8:50 EDT Tissue specimen (specimen) TRANSVERSE COLON STRUCTURE / Unknown 01/24/2021 11:48 EDT 01/25/2021 8:50 EDT Tissue specimen (specimen) SIGMOID COLON STRUCTURE / Unknown 01/24/2021 11:48 EDT 01/25/2021 8:50 EDT Jun Gong MD PATHOLOGY [facility] [address] [place] [address] documented in this encounter Visit Diagnoses Diagnosis Encounter for screening for malignant neoplasm of colon Special screening for malignant neoplasms, colon documented in this encounter Care Teams Coil Binder Relationship Specialty Start Date End Date Unknown, Provider, PCP - General 10/22/20 documented as of this encounter
--- OUTSIDE RECORDS SUMMARY | 2024-01-25 00:34 | XMS_ITS | Encounter Summary ---
Author Organization [facility] [place] [address] Care Team Providers Care Compliance Lead Name Role Phone Christiana Moore RYAN Primary Care Provider [phone] Reason for Visit * Auth/Cert Specialty Diagnoses [...] Expiration Date Visits Re quested Visits Authorized [id number] 1 1 Encounter Details Date Type Department Care Team (Late st Contact Info) Description 10/24/2019 1:52 PM EDT Anesthesia Event [place] [phone] Mata Carrillo MD [facility] [place] [address] Anesthesia Record Procedure Summary Procedure Name Responsible [...] 1241; metacarpal vein (top of hand), right; gbmo-aso-tyherj catheter system; 20 gauge; Cammie Machado RN; [...] Removal Time: 180110/24/19 1410 by Fadi Cruz, VIDEO CAMERA OPERATOR 10/24/19 1802 by Ricardo Bello CRNA Urethral [...] 1422; metacarpal vein (top of hand), right; ecjv-tdc-tzvyer catheter system; 18 gauge, 1 in length; Ace VIDEO CAMERA OPERATOR; site symptomatic; 10/26/19; 0140 10/24/19 1422 by Fadi Cruz VIDEO CAMERA OPERATOR 10/26/19 0140 by Norma Gr RN Arterial Line 10/24/19; 1422; radi al artery, left; 20 gauge; Nancy SRNA; Sterile Prep, Sterile Gloves; 10/24/19; 2215 10/24/19 1422 by Fadi Cruz, VIDEO CAMERA OPERATOR 10/24/19 2215 by Paula Marion Incision 10/24/19; [...] Procedure Summary Date: 10/24/19 Room / Location: [facility] OR [address] [place] [address] MAIN OR Anesthesia Start: 1352 Anesthesia Stop: [...] All Anesthesia Providers: Anesthesiologist: Mata Carrillo MD VIDEO CAMERA OPERATOR: Ricardo Bello CRNA Student Nurse Clock Repairer: Fadi Cruz RN Vitals Value Taken Time BP 127/82 10/24/2019 8:00 PM Temp 36.3 ??C (97.3 ??F) 10/24/2019 8:00 PM Pulse 105 10/24/2019 8:13 PM Resp 22 10/24/2019 8:13 PM SpO2 98 % 10/24/2019 8:31 PM Pain Level 0 10/24/2019 7:30 PM Vitals shown include unvalidated device data. Patient Location: PACU/[facility] Level of Consciousness: Disoriented or Confused Pain [...] discussed with patient who. Plan discussed with VIDEO CAMERA OPERATOR. PAT Clinic Note documented in this encounter Plan of Treatment Upcoming Encounters Date Type Department Care Team (Late st Contact Info) Description 02/08/2024 1:00 PM EDT Office [place] [address] Manjula Kitchen MD [facility] [place] [address] documented as of this encounter Visit Diagnoses [...] documented as of this encounter Care Teams Compliance Lead Relationship Specialty Start Date End Date Christiana Moore APRN [address] [place] [address] PCP - General Family Medicine 09/26/19 documented as of this encounter
--- OUTSIDE RECORDS SUMMARY | 2024-01-25 00:34 | XMS_ITS | Encounter Summary ---
[place] [address] Care Team Providers Care Pretzel Packer Name Role Phone Oscar Christiana RYAN Primary Care Provider Reason for Referral * Diagnostic Test (Routine) - Closed Specialty Diagnoses / Procedures Referred By Contac t Referred To Contact Radiology Diagnoses Mediastinal mass Procedures NM PET CT Skull Base to Mid-thigh Jose Alvarez MD [facility] [place] [address] [place] [address] Referral ID Status Reason Start Date Expiration Date V isits Requested Visits Authorized [id number] Closed Specialty Service Requested 10/06/2019 11/20/2019 1 1 Reason for Visit * Reason Comments Mass * Consultation (Urgent) - Specialty Diagnoses / Procedures Referred By Contac t Referred To Contact Thoracic Surgery Diagnoses Mediastinal mass Mediastinal Mass Sadie Cavazos MD [address] [place] [address] [facility] Surg [address] [place] [phone] Referral ID Status Reason Start Date Expiration Date V isits Requested Visits Authorized [id number] Consult, [facility] PCP Updated and/or Approved 09/26/2019 09/25/2020 12 12 Encounter Details Date Type Department Care Team (Late st Contact Info) Description 09/30/2019 1:00 PM EDT Office Visit [place] [address] Jose Alvarez MD [facility] [place] [address] Mediastinal mass Social History Tobacco Use Types [...] check in for you PET scan at [facility] area 3Z. Please refrain from eating or drinking anything after midnight SundayOctober 06 - Water only after midnight SundayOctober 07 until after PET scan. This includes NO GUM, MINTS, TIC TAC's, no candy, etc.. If you do eat or drink anything, your test will be canceled and rescheduled for a later date. You will check in at [facility] area 5C for your Pulmonary Function Testing. This testing will take less than one hour. Your procedure is scheduled for Sunday. You will receive a phone call from the OR nurses on October after 12pm through 6 pm. They will confirm your arrival time, reviewwhat medications to take and when to stop eating and drinking. Your procedure will occur in core maker helper area 4W. A thoracotomy is a 3 [...] at home before you are discharged : [id number] mg alternate with ibuprofen 200 mg (2-3 [...] Attending Outpatient Consultation Note Jose Alvarez MD [place] [address] FAX: Date of Consultation: 09/30/2019 This consultation [...] file Gets together: Not on file Attends episcopalian service: Not on file Active member of [...] or concerns BHARTI Oscar 09/30/2019 Thoracic Surgery [facility] I have seen the patient and reviewed the medical student's above history. The assessment and plan were formulated in discussion with me. Please see my note for details. JOSE ALVAREZ MD documented in this encounter H&P Notes * Jose Alvarez MD - 09/30/2019 1:00 PM EDT Thoracic Surgery Attending Outpatient Consultation Note Jose Alvarez MD [place] [address] FAX: Date of Consultation: 09/30/2019 This consultation [...] file Gets together: Not on file Attends episcopalian service: Not on file Active member of [...] PM EDT Office [place] [address] Manjula Kitchen MD [facility] [place] [address] documented as of this encounter Procedures Procedure [...] metastatic disease TECHNIQUE: Following IV injection of 43-vmykbo-9-deoxyglucose (FDG) a standard uptake of approximately 60 [...] Peripheral Blood (09/30/2019 4:03 PM EDT) Pathologist [facility] Plat estimate Normal [facility] RBC Morphology Abnormal [facility] Microcyte 1-5 /HPF [facility] Blood specimen (specimen) 09/30/2019 4:03 PM EDT 09/30/2019 4:09 PM EDT Narrative Resulting Agency Comment Spec In Lab Jose Alvarez MD HEMATOLOGY ORDERABLE S [facility] [place] [address] * (ABNORMAL) Differential, Automated (09/30/2019 4:03 PM EDT) [facility] Neutrophil % 80.2 % [facility] Neutrophil Absolute 8.70(H) 1.70 - 6.10 x10(3)/mc L [facility] Lymph % 11.1 % [facility] Lymphocytes Abs 1.2 0.9 - 3.2 x10(3)/mc L [facility] Monocyte % 5.8 % [facility] Monocyte Abs 0.6 0.3 - 0.9 x10(3)/mc L [facility] Eos % 0.8 % [facility] Eosinophils Abs 0.1 0.0 - 0.4 x10(3)/mc L [facility] Basophil % 0.6 % [facility] Baso Absolute 0.1 0.0 - 0.1 x10(3)/mc L [facility] Immature Gran % 1.50 % [facility] Comment: Immature granulocytes(IG's)percentage and absolute count will include metamyelocytes, myelocytes, and promyelocytes. Blood smears from CBCs yielding IG's will be scanned manually for concordance. If this scan disagrees with the automated IG or if promyelocytes are noted, a manual differential will be performed. Immature Gran Absolute 0.16(H) 0.00 - 0.04 x10(3)/mc L [facility] Blood specimen (specimen) 09/30/2019 4:03 PM EDT 09/30/2019 4:09 PM EDT Narrative Resulting Agency Comment Spec In Lab Jose Alvarez MD HEMATOLOGY ORDERABLE S [facility] [place] [address] * (ABNORMAL) Hemogram (09/30/2019 4:03 PM EDT) White Blood Cell 10.8(H) 4.0 - 9.5 x10(3)/ L [facility] Red Blood Cell 6.48(H) 4.58 - 5.54 x10(6)/mc L [facility] Hemoglobin 13.4(L) 13.7 - 16.5 gm/dL [facility] Hematocrit 44.0 40.5 - 48.5 % [facility] Mean Cell Volume 67.9(L) 82.9 - 93.1 fL [facility] Mean Cell Hemoglobin 20.7(L) 27.5 - 32.1 pg [facility] Mean Cell Hemoglobin Concentration 30.5(L) 32.0 - 35.7 gm/dL [facility] Platelet 321 145 - 357 x10(3)/ L [facility] RDW Standard Deviation 37.6 36.0 - 45.0 fL [facility] RDW coefficient of variation 17.3(H) 11.4 - 13.8 % [facility] Mean Platelet Volume 9.4 7.6 - 12.9 fL [facility] NRBC% auto 0.0 % [facility] NRBC Absolute 0.000 0.000 - 0.000 x10(3)/mc L [facility] Blood specimen (specimen) 09/30/2019 4:03 PM EDT 09/30/2019 4:09 PM EDT Narrative Resulting Agency Comment Spec In Lab Jose Alvarez MD HEMATOLOGY ORDERABLE S [facility] [place] [address] * (ABNORMAL) Comprehensive metabolic panel (non-fasting) (09/30/2019 4:03 PM EDT) Glucose 111 65 - 199 mg/dL [facility] Comment:Diabetes: >=200 mg/d L plus symptoms Blood Urea Nitrogen 13 10 - 20 mg/dL [facility] Creatinine 0.79(L) 0.80 - 1.50 mg/dL [facility] Sodium 135 135 - 145 mmol/L [facility] Potassium 3.9 3.5 - 5.0 mmol/L [facility] Comment: Please note: ??Patients with WBC >100,000 may have falsely elevated Potassium levels. ??For accurate Potassium quantification in these patients send serum separator tube (gold top) for subsequent determinations. ??Contact the Clinical Chemistry Laboratory if there are any questions. Chloride 101 98 - 107 mmol/L [facility] Carbon Dioxide 24 22 - 31 mmol/L [facility] Anion Gap 10 5 - 15 mmol/L [facility] Calcium 9.0 8.5 - 10.5 mg/dL [facility] Protein, Total 7.8 6.1 - 8.0 gm/dL [facility] Albumin 3.9 3.2 - 5.2 gm/dL [facility] Aspartate Aminotransferase 23 0 - 39 unit/L [facility] Alanine Aminotransferase 11 0 - 55 unit/L [facility] Alkaline Phosphatase 87 40 - 130 unit/L [facility] Bilirubin, Total 0.3 0.2 - 1.3 mg/dL [facility] Est Glomerular Filtration Rate 94 >=60 mL/min/1. 73 m?? [facility] Comment: The eGFR was calculated using the CKD-EPI equation. As with all creatinine based estimates of kidney function, eGFR values calculated with the CKD-EPI equation are not accurate in patients with acute kidney failure, extremes of body mass or the acutely ill. [email or web address] eGFR 109 >=60 mL/min/1. 73 m?? [facility] Comment: The eGFR was calculated using the CKD-EPI equation. As with all creatinine based estimates of kidney function, eGFR values calculated with the CKD-EPI equation are not accurate in patients with acute kidney failure, extremes of body mass or the acutely ill. [email or web address] Blood specimen (specimen) 09/30/2019 4:03 PM EDT 09/30/2019 4:09 PM EDT Narrative Resulting Agency Comment Spec In Lab Jose Alvarez MD CHEMISTRY ORDERABLES Performing Organization Address [facility] Co de Phone Number [facility] [place] [address] * EKG 12 Lead (09/30/2019 3:58 PM EDT) Ventricular rate 70 BPM MUSE SYSTEM Atrial Rate 70 BPM MUSE SYSTEM P-R Interval 158 ms MUSE SYSTEM QRS Duration 92 ms MUSE SYSTEM Q-T Interval 394 ms MUSE SYSTEM QTC Calculated (Bezet) 425 ms MUSE SYSTEM Calculated P [place] 45 degrees MUSE SYSTEM Calculated R [place] 21 degrees MUSE SYSTEM Calculated T [place] 43 degrees MUSE SYSTEM INTERPRETATION Normal sinus rhythm Possible Left atrial enlargement Left ventricular hypertrophy Abnormal ECG No previous ECGs available Confirmed by MD ALBERT SALVATORE ([id number]) on 10/01/2019 4:46:14 PM MUSE SYSTEM 09/30/2019 3:58 PM EDT 10/01/2019 4:46 PM EDT Jose Alvarez MD ECG ORDERABLES [facility] documented in this encounter Visit Diagnoses Diagnosis Mediastinal mass Swelling, mass, or lump in chest Mediastinal mass Swelling, mass, or lump in chest Mediastinal mass Swelling, mass, or lump in chest documented in this encounter Care Teams Pretzel Packer Relationship Specialty Start Date End Date Christiana Moore APRN [address] [place] [address] PCP - General Family Medicine 09/26/19 documented as of this encounter
--- OUTSIDE RECORDS SUMMARY | 2024-01-25 00:34 | XMS_ITS | Encounter Summary ---
Author Organization [facility] [place] [address] Care Team Providers Care Pipe Bowls Paint Trimmer Name Role Phone Unavailable Primary Care Provider Unavailabl e Encounter Details Date Type Department Care Team (Late st Contact Info) Description 09/25/2019 Ancillary Procedure Radiology Library at [facility] [place] [address] Christiana Moore APRN [address] [place] [address] Social History Tobacco Use Types Packs/Day Years [...] PM EDT Office [place] [address] Manjula Kitchen MD [facility] [place] [address] documented as of this encounter Procedures Procedure Name Priority Date/Time Associated Diagnosis Comments FILM LIBRARY STORAGE ONLY DX CHEST Routine 09/25/2019 12:00 AM EDT documented in this encounter Results * Film Library- Storage Only DX Chest (09/25/2019 12:00 AM EDT) Narrative [facility] - 09/26/2019 2:28 PM EDT This exam is auto-finalizing. It's purpose is for storage only. Christiana Moore APRN IMSharmila FILM LIBRARY ORD ERABLES YURIY LEUNG [place], [place] documented in this encounter Visit Diagnoses Not on filedocumented in this encounter
--- OUTSIDE RECORDS SUMMARY | 2024-01-25 00:34 | XMS_ITS | Encounter Summary ---
Author Organization [facility] [place] [address] Care Team Providers Care Intelligence Manager Name Role Phone Christiana Moore RYAN Primary Care Provider [phone] Reason for Visit * Auth/Cert Specialty Diagnoses [...] Expiration Date Visits Re quested Visits Authorized [id number] 1 1 Encounter Details Date Type Department Care Team (Late st Contact Info) Description 10/21/2019 9:15 [place] [address] COVID-19 ruled out Social History [...] PM EDT Office Visit General Surgery at [facility] [place] [address] Manjula Kitchen MD [facility] [place] [address] documented as of this encounter Procedures Procedure Name Priority Date/Time Associated Diagnosis Comments COVID-19 PCR STAT 10/21/2019 10:27 AM EDT COVID-19 ruled out documented in this encounter Results * COVID-19 PCR (10/21/2019 10:27 AM EDT) SARS-CoV-2 RNA Not Detected Not Detected [facility] [...] the instructions for use provided by the [employer] and additional guidance provided by CDC and FDA. Testing is performed in the Clinical Genomics and [facility] Technology Laboratory within the Department of Pathology and Laboratory Medicine at [facility], certified under the Clinical Laboratory Improvement [...] fact sheets at the following FDA website: https://www.fda.gov/medical-devices/frgofyhok-yztqcrbbvf-pvbctdt-devices/emergen -us e-authorizations#uakdp71gxz SARS-CoV-2 RNA Source DREDGE [employer]EMAN Swab [facility] Nasopharyngeal swab (specimen) 10/21/2019 10:27 AM EDT 10/21/2019 10:27 AM EDT Comment:Symptoms->Asymptomat ic Narrative Resulting Agency Comment Spec In Lab Quentin Carlin MD MOLECULAR ORDERABLES [facility] [place] [address] documented in this encounter Visit Diagnoses Diagnosis COVID-19 ruled out documented in this encounter Care Teams Intelligence Manager Relationship Specialty Start Date End Date Christiana Moore APRN [address] [place] [address] PCP - General Family Medicine 09/26/19 documented as of this encounter
--- OUTSIDE RECORDS SUMMARY | 2024-01-25 00:34 | XMS_ITS | Encounter Summary ---
Author Organization [facility] Address [address] [place] [address] Care Team Providers Care Electrician Third Name Role Phone Unknown, Provider Primary Care Provider [phone] Encounter Details Date Type Department Care Team (Late st Contact Info) Description 11/27/2020 Lab Requisition [facility] Pathology & Laboratory Medicine - [facility] [address] [place] [address] Outr Resulting Lab, Provider Social History Tobacco [...] 0.0 - 4.5 ng/mL 11/29/2020 14:08 EDT [facility] Blood VENOUS BLOOD / Unknown 11/26/2020 10:52 EDT 11/28/2020 16:16 EDT Narrative [facility] - 11/29/2020 14:08 EDT NOTE: Serum PSA concentration should not be interpreted as absolute evidence for the presence or absence of malignant disease. Assayed on [employer] XPT using chemiluminescent technology.??Values obtained by using different assay methods cannot be used interchangeably. Provider Outr Resulting Lab CHEMISTRY & BLOOD GAS ORDERABLES [facility] [address] [place] [address] documented in this encounter Visit Diagnoses Not on filedocumented in this encounter Care Teams Electrician Third Relationship Specialty Start Date End Date Unknown, Provider, PCP - General 10/22/20 documented as of this encounter
--- OUTSIDE RECORDS SUMMARY | 2024-01-25 00:34 | XMS_ITS | Encounter Summary ---
Author Organization [facility] Address [facility] [place] [address] Care Team Providers Care Certified Orthotic Fitter Name Role Phone Christiana Moore RYAN Primary Care Provider [phone] Reason for Visit * Auth/Cert Specialty Diagnoses [...] Expiration Date Visits Re quested Visits Authorized [id number] 1 1 Encounter Details Date Type Department Care Team (Latest Contact Info) Description 10/24/2019 11:11 AM EDT - 10/26/2019 2:05 PM EDT Hospital Encounter 3 [place] [address] [facility] [address] [place]AC[place] [address] Mediastinal mass Discharge Disposition: Home Social History [...] Primary * Fatou Dong PA - Physician Clinical Specialist * Benedicto Cameron PA - Physician Clinical Specialist * Tree Blum MD - Resident Procedure: [...] Course: Tree Lantigua was admitted to [facility] on 10[facility]24/2019 [facility]. [...] a nurse in the Thoracic Clinic at [phone]. After hours or on weekends or holidays please call: [phone] and ask to speak to the Thoracic [...] the Thoracic Clinic or the Thoracic Surgeon automotive collision repair instructor after hours. Please take over the counter [...] Expires XR Chest PA & Lateral (Generic) [[id number] Custom] 11/09/2019 04/27/2020 Process Instructions: Scheduling Instructions: Questions: Where will study be performed?: [facility] Radiology Portable exam?: Reason for exam and clinical history: s/p R thoractomy w/ anteror mediastinal mass resection Clinical information / limon questions: please eval for PTX or effusions Stat read required?: Date of injury if applicable: Requested Time: Provider Contact Information: Primary Care Provider: Christiana Moore APRN [phone] Discharge References/Attachments: Discharge References/Attachments None For questions regarding this document or issues relating to this hospitalization on the Thoracic Surgery Service, please contact Dr. Alvarez's office at . Signed: SOCRATES [place] 10/26/2019 Thoracic Surgery [facility] CC: PCP: Christiana Moore APRN Referring: Sadie Cavazos Md [address] [place] [address] documented in this encounter Discharge Instructions * [...] a nurse in the Thoracic Clinic at [phone]. After hours or on weekends or holidays please call: [phone] and ask to speak to the Thoracic [...] the Thoracic Clinic or the Thoracic Surgeon automotive collision repair instructor after hours. Please take over the counter [...] Alex MD - 10/25/2019 5:07 PM EDT [facility] Department of Thoracic Surgery Inpatient Progress Note Patient Name: Tree Lantigua Patient : 1955 Patient Patient Location: [address] [place] [address]- Attending Surgeon: JOSE ALVAREZ ID: Tree Lantigua [...] Date Admission (Current) from 10/24/2019 in 3 [facility] Office Visit from 09/30/2019 [address] [facility] Weight 78.9 kg (174 lb) 1 10/24/2019 [...] Alex MD 10/25/2019 Thoracic Surgery Service Pager [phone] * Deloris Szymanski MD - 10/24/2019 11:28 [...] Result Value Ref Range Surgical Pathology Report [id number] Location: OR; OR11; A The signing pathologist [...] Jarrod Vora Verified: 10/24/2019 Pathologist Performed at: -[facility] [place]. [place] ology, [place], [place] This intraoperative consultation should be interpreted [...] Admission order reviewed. Primary Insurance on file: [facility] [employer] MEDICARE Secondary Insurance on file: None Primary care provider on file: Christiana Moore, ASSEMBLER CRIMPER [phone] Advance Directive on file and Code Status: Full Code Patient???s Functional Status: Independent in IADLs Living Situation: Has Lillian Tyson [address] [facility] [address] Supports: Family Assessment: Patient with no apparent RNCM/SW needs at this time. No housing, transportation, insurance, resources concerns identified at this time. Supports in place to achieve a safe post-hospital transition. No identified barriers to accessing necessary care and/or follow-up after discharge. Plan: Patient to d/c to home via private vehicle when medically ready. hadoop java developer/Assistant Professor Of Education will continue to follow patient???s progress and remain available if situation changes for coordination of care, psychosocial support and/or discharge planning. Dave Joseph RN Pager [phone] Extension [phone] * Plan of Care - Master Campbell [...] Operative Note Patient Name: Tree Lantigua : [id number] MR#: [id number] Case Date: 10/24/2019 Surgeon: Surgeon(s) and Role: * Jose Alvarez MD - Primary * Fatou Dong PA - Physician Clinical Specialist * Benedicto Cameron PA - Physician Clinical Specialist * Tree Blum MD - Resident Preoperative [...] PATHOLOGY [place] 11 [address] Anterior mediastinal mass Right lower lobe wedge excision YES, Please perform frozen section No 10/24/2019 3:59 PM Number of tissue samples (in container) 1 Time specimen removed from patient: 3:59 PM SPECIMEN TO PATHOLOGY Right middle [place] 11 [id number] Anterior mediastinal mass Right middle lobe wedge excision YES, Please perform frozen section No 10/24/2019 4:04 PM Number of tissue samples (in container) 1 Time specimen removed from patient: 4:04 PM SPECIMEN TO PATHOLOGY Right upper lobe wedge [place] 11 [id number] Anterior mediastinal mass Right upper lobe wedge excision YES, Please perform frozen section No 10/24/2019 4:22 PM Number of tissue samples (in container) 1 Time specimen removed from patient: 4:22 PM SPECIMEN TO PATHOLOGY Right upper lobe wedge #2 [place] 11 [id number] Anterior mediastinal mass Right upper lobe wedge [...] IV thymoma. [facility] Operative findings: Approximately [...] reapproximated with #2 Vicryl sutures in a [id number] fashion.The chest wall was closed in layers [...] PM EDT Office [place] [address] [facility] [place] [address] documented as of this encounter Procedures Procedure [...] MISC SOURCE Routine 10/24/2019 3:00 PM EDT NON-METAL FURNITURE PANEL COVERER FINAL REPORT Routine 10/24/2019 2:58 PM EDT CYTOPATHOLOGY NON-GYNECOLOGICAL STAT 10/24/2019 2:58 PM EDT Thoracoscopy With Biopsy of Pleura 10/24/2019 1:51 PM EDT Mediastinal mass Thoracotomy With Therapeutic Wedge Resection Ea Addl 10/24/2019 1:51 PM EDT Mediastinal mass Injection Anes Agent &/ Steroid Intercostal Nerve Ea Addl Level (31019) 10/24/2019 1:51 PM EDT Mediastinal mass Thoracotomy With Therapeutic Wedge Resection Initial 10/24/2019 1:51 PM EDT Mediastinal mass Bronchoscopy, Diagnostic (10495) 10/24/2019 1:51 PM EDT Mediastinal mass Thymectomy, Radical Mediast Disssec (13056) 10/24/2019 1:51 PM EDT Mediastinal mass BRONCHOSCOPY,DIAGNOSTI [...] the number below. ? Electronically signed by: Darrell Kovacs [facility] ([phone]), at 10/26/2019 11:57 AM Narrative 10/26/2019 11:57 AM EDT EXAMINATION: XR [...] the number below. ? Electronically signed by: Piyush Johnson [facility] ([phone]), at 10/25/2019 1:42 PM Narrative 10/25/2019 1:42 PM EDT EXAMINATION: XR [...] Glucose, POC 127 65 - 199 mg/dL [facility] Comment: Supplemental ranges: <140 mg/dL before meals <180 mg/dL all other times of the day Blood specimen (specimen) 10/25/2019 11:56 AM EDT 10/25/2019 11:56 AM EDT Jose Alvarez MD POINT OF CARE TEST O RDERABLES [facility] [place] [address] * (ABNORMAL) Differential, Automated (10/25/2019 3:30 AM EDT) Neutrophil % 81.8 % [facility] Neutrophil Absolute 10.92(H) 1.70 - 6.10 x10(3)/ L [facility] Lymph % 8.6 % [facility] Lymphocytes Abs 1.1 0.9 - 3.2 x10(3)/[facility] Monocyte % 8.6 % [facility] Monocyte Abs 1.1(H) 0.3 - 0.9 x10(3)/ L [facility] Eos % 0.1 % [facility] Eosinophils Abs 0.0 0.0 - 0.4 x10(3)/[facility] Basophil % 0.2 % [facility] Baso Absolute 0.0 0.0 - 0.1 x10(3)/[facility] Immature Gran % 0.70 % [facility] Comment: Immature granulocytes(IG's)percentage and absolute count will include metamyelocytes, myelocytes, and promyelocytes. Blood smears from CBCs yielding IG's will be scanned manually for concordance. If this scan disagrees with the automated IG or if promyelocytes are noted, a manual differential will be performed. Immature Gran Absolute 0.09(H) 0.00 - 0.04 x10(3)/ L [facility] Blood specimen (specimen) 10/25/2019 3:30 AM EDT 10/25/2019 3:41 AM EDT Narrative Resulting Agency Comment Spec In Lab Tree Blum MD HEMATOLOGY ORDERABLE S [facility] [place] [address] * (ABNORMAL) Hemogram (10/25/2019 3:30 AM EDT) White Blood Cell 13.3(H) 4.0 - 9.5 x10(3)/mc L [facility] Red Blood Cell 6.33(H) 4.58 - 5.54 x10(6)/mc L [facility] Hemoglobin 12.9(L) 13.7 - 16.5 gm/dL [facility] Hematocrit 42.1 40.5 - 48.5 % [facility] Mean Cell Volume 66.5(L) 82.9 - 93.1 fL [facility] Mean Cell Hemoglobin 20.4(L) 27.5 - 32.1 pg [facility] Mean Cell Hemoglobin Concentration 30.6(L) 32.0 - 35.7 gm/dL [facility] Platelet 325 145 - 357 x10(3)/mc L [facility] RDW Standard Deviation 34.5(L) 36.0 - 45.0 [facility] RDW coefficient of variation 16.0(H) 11.4 - 13.8 % [facility] Mean Platelet Volume 10.0 7.6 - 12.9 [facility] NRBC% auto 0.0 % [facility] NRBC Absolute 0.000 0.000 - 0.000 x10(3)/mc L [facility] Blood specimen (specimen) 10/25/2019 3:30 AM EDT 10/25/2019 3:41 AM EDT Narrative Resulting Agency Comment Spec In Lab Tree Blum MD HEMATOLOGY ORDERABLE S [facility] [place] [address] * (ABNORMAL) Basic Metabolic Panel (non-fasting) (10/25/2019 3:30 AM EDT) Glucose 132 65 - 199 mg/dL [facility] Comment:Diabetes: >=200 mg/d L plus symptoms Blood Urea Nitrogen 12 10 - 20 mg/dL [facility] Creatinine 0.71(L) 0.80 - 1.50 mg/dL [facility] Sodium 136 135 - 145 mmol/L [facility] Potassium 4.5 3.5 - 5.0 mmol/L [facility] Comment: Please note: ??Patients with WBC >100,000 may have falsely elevated Potassium levels. ??For accurate Potassium quantification in these patients send serum separator tube (gold top) for subsequent determinations. ??Contact the Clinical Chemistry Laboratory if there are any questions. Chloride 101 98 - 107 mmol/L [facility] Carbon Dioxide 24 22 - 31 mmol/L [facility] Anion Gap 11 5 - 15 mmol/L [facility] Calcium 8.9 8.5 - 10.5 mg/dL [facility] Est Glomerular Filtration Rate 98 >=60 mL/min/1. 73 m?? [facility] Comment: The eGFR was calculated using the CKD-EPI equation. As with all creatinine based estimates of kidney function, eGFR values calculated with the CKD-EPI equation are not accurate in patients with acute kidney failure, extremes of body mass or the acutely ill. http://Qian Xiao'er/[facility] eGFR 114 >=60 mL/min/1. 73 m?? [facility] Comment: The eGFR was calculated using the CKD-EPI equation. As with all creatinine based estimates of kidney function, eGFR values calculated with the CKD-EPI equation are not accurate in patients with acute kidney failure, extremes of body mass or the acutely ill. [email or web address]://[employer]ian [email or web address]/DHnkf Blood specimen (specimen) 10/25/2019 3:30 AM EDT 10/25/2019 3:41 AM EDT Narrative Resulting Agency Comment Spec In Lab Jose Alvarez MD CHEMISTRY ORDERABLES [facility] [place] [address] * (ABNORMAL) Basic Metabolic Panel (non-fasting) (10/24/2019 6:30 PM EDT) Glucose 154 65 - 199 mg/dL [facility] Comment:Diabetes: >=200 mg/d L plus symptoms Blood Urea Nitrogen 12 10 - 20 mg/dL [facility] Creatinine 0.76(L) 0.80 - 1.50 mg/dL [facility] Sodium 136 135 - 145 mmol/L [facility] Potassium 3.7 3.5 - 5.0 mmol/L [facility] Comment: Please note: ??Patients with WBC >100,000 may have falsely elevated Potassium levels. ??For accurate Potassium quantification in these patients send serum separator tube (gold top) for subsequent determinations. ??Contact the Clinical Chemistry Laboratory if there are any questions. Chloride 102 98 - 107 mmol/L [facility] Carbon Dioxide 22 22 - 31 mmol/L [facility] Anion Gap 12 5 - 15 mmol/L [facility] Calcium 8.4(L) 8.5 - 10.5 mg/dL [facility] Est Glomerular Filtration Rate 96 >=60 mL/min/1. 73 m?? [facility] Comment: The eGFR was calculated using the CKD-EPI equation. As with all creatinine based estimates of kidney function, eGFR values calculated with the CKD-EPI equation are not accurate in patients with acute kidney failure, extremes of body mass or the acutely ill. http://Qian Xiao'er/DHMCnkf eGFR 111 >=60 mL/min/1. 73 m?? [facility] Comment: The eGFR was calculated using the CKD-EPI equation. As with all creatinine based estimates of kidney function, eGFR values calculated with the CKD-EPI equation are not accurate in patients with acute kidney failure, extremes of body mass or the acutely ill. http://[employer]/DHMCnkf Blood specimen (specimen) 10/24/2019 6:30 PM EDT 10/24/2019 6:45 PM EDT Narrative Resulting Agency Comment Spec In Lab Jose Alvarez MD CHEMISTRY ORDERABLES Performing Organization Address [facility] [place] [place] [address] * Specimen to Pathology (10/24/2019 4:37 PM EDT) AP Specimen 10/24/2019 4:37 PM EDT 10/24/2019 4:37 PM EDT Narrative [facility] - 10/24/2019 4:37 PM EDT Specimen requisition ordered. ??Separate Pathology report to follow Jose Alvarez MD PATHOLOGY/CYTOLOGY O RDERAMICHAEL Performing Organization Address [facility] [place] [address] * Specimen to Pathology (10/24/2019 4:22 PM EDT) AP Specimen 10/24/2019 4:22 PM EDT 10/24/2019 4:22 PM EDT Narrative [facility] - 10/24/2019 4:22 PM EDT Specimen requisition ordered. ??Separate Pathology report to follow Jose Alvarez MD PATHOLOGY/CYTOLOGY O RDERAMICHAEL Performing Organization Address [facility] [place] [address] * Specimen to Pathology (10/24/2019 4:04 PM EDT) AP Specimen 10/24/2019 4:04 PM EDT 10/24/2019 4:04 PM EDT Narrative [facility] - 10/24/2019 4:04 PM EDT Specimen requisition ordered. ??Separate Pathology report to follow Jose Alvarez MD PATHOLOGY/CYTOLOGY O RDEBER Performing Organization Address [facility]/State/[facility] Co de Phone Number [facility] [place] [address] * Specimen to Pathology (10/24/2019 3:59 PM EDT) AP Specimen 10/24/2019 3:59 PM EDT 10/24/2019 3:59 PM EDT Narrative [facility] - 10/24/2019 3:59 PM EDT Specimen requisition ordered. ??Separate Pathology report to follow Jose Alvarez MD PATHOLOGY/CYTOLOGY O BENJI Performing Organization Address [facility] [place] [address] * Specimen to Pathology (10/24/2019 3:43 PM EDT) AP Specimen 10/24/2019 3:43 PM EDT 10/24/2019 3:43 PM EDT Narrative [facility] - 10/24/2019 3:43 PM EDT Specimen requisition ordered. ??Separate Pathology report to follow Jose Alvarez MD PATHOLOGY/CYTOLOGY O BENJI Performing Organization Address [facility] [place] [place] [address] * Surgical Pathology Report (10/24/2019 3:42 PM EDT) Pathologist [facility] Final Diagnosis [id number] ? Location: [facility]; [facility] [place]; A The signing pathologist has (i) examined [...] Lea MD Verified: ??11/11/2019 ?Pathologist Performed at: ??-[facility]. [place] [facility]ology, [place], [place] ?Surgical Pathology DIAGNOSIS A - Anterior [...] Lea MD Verified: ??11/04/2019 ?Pathologist Performed at: ??-[facility] Dept. of Pathology, [place], [place] SYNOPTIC Specimen ? Procedure: ??Thymectomy Tumor [...] following tissue is submitted for frozen section: Convention Worker section of the mass. Inked, serially sectioned and admissions representative sections submitted in 9 cassettes as follows: . SPECIMEN PROCESSING ?A1: ??FS-1 ?A2-A9: ??Convention Worker sections of lesion B - Labeled/Fixative: Right [...] following tissue is submitted for frozen section: Convention Worker section of nodule. Convention Worker sections in 4 cassettes as follows: ?B1: ??FS 1 ?B2: ??Stable line margins ?B3-B4: ??Convention Worker sections C - Labeled/Fixative: Right middle lobe [...] Jarrod Vora Verified: ??10/24/2019 ?Pathologist Performed at: ??-[facility] Dept. of Pathology, [place], [place] This intraoperative consultation should be interpreted as a preliminary diagnosis pending review of the entire specimen and special studies, if any. 11/11/2019 9:43 AM EDT [facility] Frozen Specimen 10/24/2019 3 :42 [...] EDT Jose Alvarez MD PATHOLOGY/CYTOLOGY O RDERABLES [facility] [place] [address] * (ABNORMAL) BLOOD GAS 2 ARTERIAL (10/24/2019 3:38 PM EDT) pH, Arterial 7.35 7.35 - 7.45 [facility] PCO2, Arterial 45 35 - 45 mmHg [facility] PO2, Arterial 81(L) 85 - 104 mmHg [facility] Bicarbonate, Arterial 24.4 20.0 - 26.0 mmol/L [facility] Base Excess, Arterial -1.2 -3.0 - 3.0 mmol/L [facility] Hgb Blood Gas 13.0(L) 13.7 - 16.5 gm/dL [facility] Oxyhemoglobin, Arterial 93.9(L) 94.0 - 97.0 % [facility] Carboxyhemoglob in, Arterial 1.3 % [facility] Comment: Nonsmokers: 0.5-1.5% COHB Smokers: Variable, but usually less than 10% Toxic: 20-30% COHB Lethal: Greater than 60% COHB Methemoglobin, Arterial 0.3 <=1.5 % [facility] Na Whole Blood 135 135 - 145 mmol/L [facility] K Whole Blood 3.9 3.5 - 5.0 mmol/L [facility] Comment: Please note: Patients with WBC >100,000 may have falsely elevated Potassium levels. Contact the Clinical Chemistry Laboratory if there are any questions. ICa Whole Blood 1.19 1.15 - 1.33 mmol/L [facility] Comment: Note: ??Total bilirubin higher than 20 mg/dL may lead to falsely low ionized calcium. CL Whole Blood 103 98 - 107 mmol/L [facility] Gluc Whole Bld 144 65 - 199 mg/dL [facility] Comment:Diabetes: >=200 mg/d L plus symptoms. Lactate WB 1.0 0.5 - 2.2 mmol/L [facility] FIO2 Art 84 % [facility] PF Ratio Art 96 [facility] Temp Art 37.1 Celsius [facility] Blood specimen (specimen) Arterial Draw / Unknown 10/24/2019 3:38 PM EDT 10/24/2019 4:50 PM EDT Narrative Resulting Agency Comment Spec In Lab Mata Carrillo MD POINT OF CARE TEST O RDERABLES Performing Organization Address [facility] Co de Phone Number [facility] [place] [address] * Anaerobic Culture (10/24/2019 3:00 PM EDT) Anaerobic Culture No anaerobic organisms isolated [facility] Pleural fluid specimen (specimen) 10/24/2019 3:00 PM EDT 10/24/2019 3:43 PM EDT Comment:RIGHT PLEURAL FLUID Narrative Resulting Agency Comment Spec In Lab Jose Alvarez MD MICROBIOLOGY - GENER AL ORDERABLES Performing Organization Address [facility] Co de Phone Number [facility] [place] [address] * Body Fluid Culture, Aerobic (10/24/2019 3:00 PM EDT) Body Fluid Culture No growth [facility] Gram Stain Cytocentrifuge Gram Stain performed Neutrophils seen No microorganisms seen. Results called to and read back by DR. ALVAREZ. [facility] Pleural fluid specimen (specimen) 10/24/2019 3:00 PM EDT 10/24/2019 3:43 PM EDT Comment:RIGHT PLEURAL FLUID Narrative Resulting Agency Comment Spec In Lab Jose Alvarez MD MICROBIOLOGY - GENER AL ORDERABLES Performing Organization Address [facility] Co de Phone Number [facility] [place] [address] * Anaerobic Culture (10/24/2019 3:00 PM EDT) Anaerobic Culture No anaerobic organisms isolated [facility] Specimen from lung (specimen) 10/24/2019 3:00 PM EDT 10/24/2019 3:41 PM EDT Comment:PLEURAL GRUMOUS Narrative Resulting Agency Comment Spec In Lab Jose Alvarez MD MICROBIOLOGY - GENER AL ORDERABLES Performing Organization Address [facility] Co de Phone Number [facility] [place] [address] * Tissue culture (10/24/2019 3:00 PM EDT) Tissue Culture No growth [facility] Gram Stain Moderate Neutrophils seen No microorganisms seen. Results called to and read back by DR. ALVAREZ. [facility] Specimen from lung (specimen) 10/24/2019 3:00 PM EDT 10/24/2019 3:41 PM EDT Comment:PLEURAL GRUMOUS Narrative Resulting Agency Comment Spec In Lab Jose Alvarez MD MICROBIOLOGY - GENER AL ORDERABLES Performing Organization Address [facility] Co de Phone Number [facility] [place] [address] * Fungus culture Other (10/24/2019 3:00 PM EDT) Fungus Culture No Fungus isolated [facility] Specimen of unknown material (specimen) 10/24/2019 3:00 PM EDT 10/24/2019 3:44 PM EDT Comment:PLEURAL GRUMOUS Narrative Resulting Agency Comment Spec In Lab Jose Alvarez MD MICROBIOLOGY - GENER AL ORDERABLES Performing Organization Address [facility] Co de Phone Number [facility] [place] [address] * AFB culture Lung (10/24/2019 3:00 PM EDT) Acid Fast Bacilli Culture No Acid Fast Bacilli isolated If active tuberculosis is suspected, the patient should be on [employer]. Call Infection Prevention for assistance if needed. [facility] Acid Fast Stain No Acid Fast Bacilli seen [facility] Specimen from lung (specimen) 10/24/2019 3:00 PM EDT 10/24/2019 3:44 PM EDT Comment:PLEURAL GRUMOUS Narrative Resulting Agency Comment Spec In Lab Jose Alvarez MD MICROBIOLOGY - GENER AL ORDERABLES [facility] [place] [address] * Non-Hand Clipper Final Report (10/24/2019 2:58 PM EDT) Diagnosis Discussion [id number] ? Location: 3WST; 0302; A The signing pathologist has (i) examined the relevant preparation(s) for the specimen(s) and (ii) rendered or confirmed the diagnosis(es). . ? Non-Hand Clipper Final DIAGNOSIS Negative for Malignancy Electronically signed by: ??Harsh JORDAN PhD, Juancarlos Schmitz Verified: ??10/27/2019 ?Pathologist Performed at: ??-[facility] [place], [place], [place] DISCUSSION Pleural, right (thoracentesis): The specimen [...] Cell Block 1. 10/27/2019 3:11 PM EDT [facility] RIGHT PLEURAL FLUID / Unknown 10/24/2019 2:58 PM EDT 10/24/2019 2:58 PM EDT Jose Alvarez MD PATHOLOGY/CYTOLOGY O BENJI Performing Organization Address [facility] de Phone Number [facility] [place] [address] * Cytopathology Non-Gynecological (10/24/2019 2:58 PM EDT) AP Specimen 10/24/2019 2:58 PM EDT 10/24/2019 2:58 PM EDT Narrative [facility] - 10/24/2019 2:58 PM EDT Specimen requisition ordered. ??Separate Pathology report to follow Jose Alvarez MD PATHOLOGY/CYTOLOGY O BENJI Performing Organization Address [facility] de Phone Number [facility] [place] [address] documented in this encounter Visit Diagnoses Diagnosis [...] documented as of this encounter Care Teams Certified Orthotic Fitter Relationship Specialty Start Date End Date Christiana Moore APRN [address] [place] [address] PCP - General Family Medicine 09/26/19 documented as of this encounter
--- OUTSIDE RECORDS SUMMARY | 2024-01-25 00:34 | XMS_ITS | Encounter Summary ---
Author Organization [facility] [place] [address] Care Team Providers Care Genetic Supervisor Name Role Phone Christiana Moore RYAN Primary Care Provider [phone] Reason for Visit * Auth/Cert Specialty Diagnoses [...] Expiration Date Visits Re quested Visits Authorized [id number] 1 1 Encounter Details Date Type Department Care Team (Late st Contact Info) Description 10/24/2019 12:28 PM EDT - 10/24/2019 5:26 PM EDT Surgery [place] [address] Jose Alvarez MD [facility] [place] [address] @THYMECTOMY W/ RAD. MEDIASTINAL DISSECTION (WRVU 23.48) [...] Primary * Fatou Dong PA - Physician Superintendent Division * Benedicto Cameron PA - Physician Superintendent Division * Tree Blum MD - Resident Procedure: [...] Hospital Course: Tree Lantigua was admitted to [facility] on 10[facility]24[facility]2019 [facility] Day [facility]. He [...] a nurse in the Thoracic Clinic at [phone]. After hours or on weekends or holidays please call: [phone] and ask to speak to the Thoracic [...] the Thoracic Clinic or the Thoracic Surgeon section weaver after hours. Please take over the counter [...] Expires XR Chest PA & Lateral (Generic) [[id number] Custom] 11/09/2019 04/27/2020 Process Instructions: Scheduling Instructions: Questions: Where will study be performed?: [facility] Radiology Portable exam?: Reason for exam and clinical history: s/p R thoractomy w/ anteror mediastinal mass resection Clinical information / limon questions: please eval for PTX or effusions Stat read required?: Date of injury if applicable: Requested Time: Provider Contact Information: Primary Care Provider: Christiana Moore APRN [phone] Discharge References/Attachments: Discharge References/Attachments None For questions regarding this document or issues relating to this hospitalization on the Thoracic Surgery Service, please contact Dr. Alvarez's office at . Signed: SOCR[facility] [place] 10/26/2019 Thoracic Surgery [facility] CC: PCP: Christiana Moore APRN Referring: Sadie Cavazos Md [address] [place] [address] documented in this encounter Discharge Instructions * [...] a nurse in the Thoracic Clinic at [phone]. After hours or on weekends or holidays please call: [phone] and ask to speak to the Thoracic [...] the Thoracic Clinic or the Thoracic Surgeon section weaver after hours. Please take over the counter [...] Alex MD - 10/25/2019 5:07 PM EDT [facility] Department of Thoracic Surgery Inpatient Progress [...] Encounter Date Admission (Current) from 10/24/[address] [place] [address] Office Visit from 09/30/2019 in Thoracic Surgery at [facility] Weight 78.9 kg (174 lb) 1 [...] Alex MD 10/25/2019 Thoracic Surgery Service Pager [phone] * Deloris Szymanski MD - 10/24/2019 11:28 [...] Result Value Ref Range Surgical Pathology Report [id number] Location: OR; OR11; A The signing pathologist [...] Jarrod Vora Verified: 10/24/2019 Pathologist Performed at: -[facility] Dept. of Path ology, [place], [place] This intraoperative consultation should be interpreted [...] Admission order reviewed. Primary Insurance on file: [facility] MANAGED MEDICARE Secondary Insurance on file: None Primary care provider on file: Christiana Moore, [employer]ER [phone] Advance Directive on file and Code Status: Full Code Patient???s Functional Status: Independent in IADLs Living Situation: Has Lillian Tyson [address] [facility] [address] Supports: Family Assessment: Patient with no apparent RNCM/SW needs at this time. No housing, transportation, insurance, resources concerns identified at this time. Supports in place to achieve a safe post-hospital transition. No identified barriers to accessing necessary care and/or follow-up after discharge. Plan: Patient to d/c to home via private vehicle when medically ready. patient coordinator front desk/Survey Research Teacher will continue to follow patient???s progress and remain available if situation changes for coordination of care, psychosocial support and/or discharge planning. Dave Joseph RN Pager [phone] * Plan of Care - Master Campbell [...] Operative Note Patient Name: Tree Lantigua : [id number] MR#: [id number] Case Date: 10/24/2019 Surgeon: Surgeon(s) and Role: * Jose Alvarez MD - Primary * Fatou Dong PA - Physician Superintendent Division * Benedicto Cameron PA - Physician Superintendent Division * Tree Blum MD - Resident Preoperative [...] [place] [address] Anterior mediastinal mass Right lower lobe wedge excision YES, Please perform frozen section No 10/24/2019 3:59 PM Number of tissue samples (in container) 1 Time specimen removed from patient: 3:59 PM SPECIMEN TO PATHOLOGY Right middle [place] 11 [id number] Anterior mediastinal mass Right middle lobe wedge excision YES, Please perform frozen section No 10/24/2019 4:04 PM Number of tissue samples (in container) 1 Time specimen removed from patient: 4:04 PM SPECIMEN TO PATHOLOGY Right upper [place] 11 [id number] Anterior mediastinal mass Right upper lobe wedge excision YES, Please perform frozen section No 10/24/2019 4:22 PM Number of tissue samples (in container) 1 Time specimen removed from patient: 4:22 PM SPECIMEN TO PATHOLOGY Right upper lobe wedge #2 OR 11 [id number] Anterior mediastinal mass Right upper lobe wedge [...] [facility]. [facility] Operative findings: Approximately 200 [...] reapproximated with #2 Vicryl sutures in a [id number] fashion.The chest wall was closed in layers [...] PM EDT Office [place] [address] Manjula Kitchen MD [facility] [place] [address] documented as of this encounter Procedures Procedure [...] MISC SOURCE Routine 10/24/2019 3:00 PM EDT NON-MEDICARE BILLER FINAL REPORT Routine 10/24/2019 2:58 PM EDT CYTOPATHOLOGY NON-GYNECOLOGICAL STAT 10/24/2019 2:58 PM EDT Thoracoscopy With Biopsy of Pleura 10/24/2019 1:51 PM EDT Mediastinal mass Thoracotomy With Therapeutic Wedge Resection Ea Addl 10/24/2019 1:51 PM EDT Mediastinal mass Injection Anes Agent &/ Steroid Intercostal Nerve Ea Addl Level (54382) 10/24/2019 1:51 PM EDT Mediastinal mass Thoracotomy With Therapeutic Wedge Resection Initial 10/24/2019 1:51 PM EDT Mediastinal mass Bronchoscopy, Diagnostic (03304) 10/24/2019 1:51 PM EDT Mediastinal mass Thymectomy, Radical Mediast Disssec (16796) 10/24/2019 1:51 PM EDT Mediastinal mass BRONCHOSCOPY,DIAGNOSTI [...] * POCT Glucose (10/25/2019 11:56 AM EDT) [facility] Signature Glucose, POC 127 65 - 199 mg/dL [facility] Comment: Supplemental ranges: <140 mg/dL before meals <180 mg/dL all other times of the day Blood specimen (specimen) 10/25/2019 11:56 AM EDT 10/25/2019 11:56 AM EDT Jose Alvarez MD POINT OF CARE TEST O RDERABLES [facility] [place] [address] * (ABNORMAL) Differential, Automated (10/25/2019 3:30 AM EDT) Neutrophil % 81.8 % [facility] Neutrophil Absolute 10.92(H) 1.70 - 6.10 x10(3)/mc L [facility] Lymph % 8.6 % [facility] Lymphocytes Abs 1.1 0.9 - 3.2 x10(3)/ L [facility] Monocyte % 8.6 % [facility] Monocyte Abs 1.1(H) 0.3 - 0.9 x10(3)/mc L [facility] Eos % 0.1 % [facility] Eosinophils Abs 0.0 0.0 - 0.4 x10(3)/[facility] Basophil % 0.2 % [facility] Baso Absolute 0.0 0.0 - 0.1 x10(3)/ L [facility] Immature Gran % 0.70 % [facility] Comment: Immature granulocytes(IG's)percentage and absolute count will include metamyelocytes, myelocytes, and promyelocytes. Blood smears from CBCs yielding IG's will be scanned manually for concordance. If this scan disagrees with the automated IG or if promyelocytes are noted, a manual differential will be performed. Immature Gran Absolute 0.09(H) 0.00 - 0.04 x10(3)/mc L [facility] Blood specimen (specimen) 10/25/2019 3:30 AM EDT 10/25/2019 3:41 AM EDT Narrative Resulting Agency Comment Spec In Lab Tree Blum MD HEMATOLOGY ORDERABLE S [facility] [place] [address] * (ABNORMAL) Hemogram (10/25/2019 3:30 AM EDT) White Blood Cell 13.3(H) 4.0 - 9.5 x10(3)/mc L [facility] Red Blood Cell 6.33(H) 4.58 - 5.54 x10(6)/mc L [facility] Hemoglobin 12.9(L) 13.7 - 16.5 gm/dL [facility] Hematocrit 42.1 40.5 - 48.5 % [facility] Mean Cell Volume 66.5(L) 82.9 - 93.1 fL [facility] Mean Cell Hemoglobin 20.4(L) 27.5 - 32.1 pg [facility] Mean Cell Hemoglobin Concentration 30.6(L) 32.0 - 35.7 gm/dL [facility] Platelet 325 145 - 357 x10(3)/mc L [facility] RDW Standard Deviation 34.5(L) 36.0 - 45.0 [facility] RDW coefficient of variation 16.0(H) 11.4 - 13.8 % [facility] Mean Platelet Volume 10.0 7.6 - 12.9 [facility] NRBC% auto 0.0 % [facility] NRBC Absolute 0.000 0.000 - 0.000 x10(3)/mc L [facility] Blood specimen (specimen) 10/25/2019 3:30 AM EDT 10/25/2019 3:41 AM EDT Narrative Resulting Agency Comment Spec In Lab Tree Blum MD HEMATOLOGY ORDERABLE S [facility] [place] [address] * (ABNORMAL) Basic Metabolic Panel (non-fasting) (10/25/2019 3:30 AM EDT) Glucose 132 65 - 199 mg/dL [facility] Comment:Diabetes: >=200 mg/d L plus symptoms Blood Urea Nitrogen 12 10 - 20 mg/dL [facility] Creatinine 0.71(L) 0.80 - 1.50 mg/dL [facility] Sodium 136 135 - 145 mmol/L [facility] Potassium 4.5 3.5 - 5.0 mmol/L [facility] [...] 31 mmol/L [facility] Anion Gap 11 5 - 15 mmol/L [facility] Calcium 8.9 8.5 - 10.5 mg/dL [facility] Est Glomerular Filtration Rate 98 >=60 mL/min/1. 73 m?? [facility] Comment: The eGFR was calculated using the CKD-EPI equation. As with all creatinine based estimates of kidney function, eGFR values calculated with the CKD-EPI equation are not accurate in patients with acute kidney failure, extremes of body mass or the acutely ill. http://[employer]/[facility] eGFR 114 >=60 mL/min/1. 73 m?? [facility] Comment: The eGFR was calculated using the CKD-EPI equation. As with all creatinine based estimates of kidney function, eGFR values calculated with the CKD-EPI equation are not accurate in patients with acute kidney failure, extremes of body mass or the acutely ill. http://[employer]/[facility] Blood specimen (specimen) 10/25/2019 3:30 AM EDT 10/25/2019 3:41 AM EDT Narrative Resulting Agency Comment Spec In Lab Jose Alvarez MD CHEMISTRY ORDERABLES [facility] [place] [address] * (ABNORMAL) Basic Metabolic Panel (non-fasting) (10/24/2019 6:30 PM EDT) Glucose 154 65 - 199 mg/dL [facility] Comment:Diabetes: >=200 mg/d L plus symptoms Blood Urea Nitrogen 12 10 - 20 mg/dL [facility] Creatinine 0.76(L) 0.80 - 1.50 mg/dL [facility] Sodium 136 135 - 145 mmol/L [facility] Potassium 3.7 3.5 - 5.0 mmol/L [facility] Comment: Please note: ??Patients with WBC >100,000 may have falsely elevated Potassium levels. ??For accurate Potassium quantification in these patients send serum separator tube (gold top) for subsequent determinations. ??Contact the Clinical Chemistry Laboratory if there are any questions. Chloride 102 98 - 107 mmol/L [facility] Carbon Dioxide 22 22 - 31 mmol/L [facility] Anion Gap 12 5 - 15 mmol/L [facility] Calcium 8.4(L) 8.5 - 10.5 mg/dL [facility] Est Glomerular Filtration Rate 96 >=60 mL/min/1. 73 m?? [facility] Comment: The eGFR was calculated using the CKD-EPI equation. As with all creatinine based estimates of kidney function, eGFR values calculated with the CKD-EPI equation are not accurate in patients with acute kidney failure, extremes of body mass or the acutely ill. http://[employer]/[facility]nk[facility] eGFR 111 >=60 mL/min/1. 73 m?? [facility] Comment: The eGFR was calculated using the CKD-EPI equation. As with all creatinine based estimates of kidney function, eGFR values calculated with the CKD-EPI equation are not accurate in patients with acute kidney failure, extremes of body mass or the acutely ill. http://[employer]/[facility] Blood specimen (specimen) 10/24/2019 6:30 PM EDT 10/24/2019 6:45 PM EDT Narrative Resulting Agency Comment Spec In Lab Jose Alvarez MD CHEMISTRY ORDERABLES Performing Organization Address [facility] Co de Phone Number [facility] [place] [address] * Specimen to Pathology (10/24/2019 4:37 PM EDT) AP Specimen 10/24/2019 4:37 PM EDT 10/24/2019 4:37 PM EDT Narrative [facility] - 10/24/2019 4:37 PM EDT Specimen requisition ordered. ??Separate Pathology report to follow Jose Alvarez MD PATHOLOGY/CYTOLOGY O BENJI Performing Organization Address [facility] [place] [address] * Specimen to Pathology (10/24/2019 4:22 PM EDT) AP Specimen 10/24/2019 4:22 PM EDT 10/24/2019 4:22 PM EDT Narrative [facility] - 10/24/2019 4:22 PM EDT Specimen requisition ordered. ??Separate Pathology report to follow Jose Alvarez MD PATHOLOGY/CYTOLOGY O BENJI Performing Organization Address [facility] Co de Phone Number [facility] [place] [address] * Specimen to Pathology (10/24/2019 4:04 PM EDT) AP Specimen 10/24/2019 4:04 PM EDT 10/24/2019 4:04 PM EDT Narrative [facility] - 10/24/2019 4:04 PM EDT Specimen requisition ordered. ??Separate Pathology report to follow Jose Alvarez MD PATHOLOGY/CYTOLOGY O RDERABLES Performing Organization Address [facility] Co de Phone Number [facility] [place] [address] * Specimen to Pathology (10/24/2019 3:59 PM EDT) AP Specimen 10/24/2019 3:59 PM EDT 10/24/2019 3:59 PM EDT Narrative [facility] - 10/24/2019 3:59 PM EDT Specimen requisition ordered. ??Separate Pathology report to follow Jose Alvarez MD PATHOLOGY/CYTOLOGY O BENJI Performing Organization Address [facility] [place] [address] * Specimen to Pathology (10/24/2019 3:43 PM EDT) AP Specimen 10/24/2019 3:43 PM EDT 10/24/2019 3:43 PM EDT Narrative [facility] - 10/24/2019 3:43 PM EDT Specimen requisition ordered. ??Separate Pathology report to follow Jose Alvarez MD PATHOLOGY/CYTOLOGY O BENJI Performing Organization Address [facility] de Phone Number [facility] [place] [address] * Surgical Pathology Report (10/24/2019 3:42 PM EDT) Pathologist [facility] Final Diagnosis [id number] ? Location: [facility]; 0302; A The signing pathologist has [...] Lea MD Verified: ??11/11/2019 ?Pathologist Performed at: ??-[facility] Dept. of Pathology, [place], [place] ?Surgical Pathology DIAGNOSIS A - Anterior [...] Lea MD Verified: ??11/04/2019 ?Pathologist Performed at: ??-[facility] Dept. of Pathology, [place], [place] SYNOPTIC Specimen ? Procedure: ??Thymectomy Tumor [...] following tissue is submitted for frozen section: Electro Mechanical Designer section of the mass. Inked, serially sectioned and teleservices representative sections submitted in 9 cassettes as follows: . SPECIMEN PROCESSING ?A1: ??FS-1 ?A2-A9: ??Electro Mechanical Designer sections of lesion B - Labeled/Fixative: Right [...] following tissue is submitted for frozen section: Electro Mechanical Designer section of nodule. Electro Mechanical Designer sections in 4 cassettes as follows: ?B1: ??FS 1 ?B2: ??Stable line margins ?B3-B4: ??Electro Mechanical Designer sections C - Labeled/Fixative: Right middle lobe [...] Jarrod Vora Verified: ??10/24/2019 ?Pathologist Performed at: ??-[facility] Dept. of Pathology, [place], [place] This intraoperative consultation should be interpreted as a preliminary diagnosis pending review of the entire specimen and special studies, if any. 11/11/2019 9:43 AM EDT [facility] Frozen Specimen 10/24/2019 3 :42 [...] EDT Jose Alvarez MD PATHOLOGY/CYTOLOGY O RDERABLES [facility] [place] [address] * (ABNORMAL) BLOOD GAS 2 ARTERIAL (10/24/2019 3:38 PM EDT) pH, Arterial 7.35 7.35 - 7.45 [facility] PCO2, Arterial 45 35 - 45 mmHg [facility] PO2, Arterial 81(L) 85 - 104 mmHg [facility] Bicarbonate, Arterial 24.4 20.0 - 26.0 mmol/L [facility] Base Excess, Arterial -1.2 -3.0 - 3.0 mmol/L [facility] Hgb Blood Gas 13.0(L) 13.7 - 16.5 gm/dL [facility] Oxyhemoglobin, Arterial 93.9(L) 94.0 - 97.0 % [facility] Carboxyhemoglob in, Arterial 1.3 % [facility] Comment: Nonsmokers: 0.5-1.5% COHB Smokers: Variable, but usually less than 10% Toxic: 20-30% COHB Lethal: Greater than 60% COHB Methemoglobin, Arterial 0.3 <=1.5 % [facility] Na Whole Blood 135 135 - 145 mmol/L [facility] K Whole Blood 3.9 3.5 - 5.0 mmol/L [facility] Comment: Please note: Patients with WBC >100,000 may have falsely elevated Potassium levels. Contact the Clinical Chemistry Laboratory if there are any questions. ICa Whole Blood 1.19 1.15 - 1.33 mmol/L [facility] Comment: Note: ??Total bilirubin higher than 20 mg/dL may lead to falsely low ionized calcium. CL Whole Blood 103 98 - 107 mmol/L [facility] Gluc Whole Bld 144 65 - 199 mg/dL [facility] Comment:Diabetes: >=200 mg/d L plus symptoms. Lactate WB 1.0 0.5 - 2.2 mmol/L [facility] FIO2 Art 84 % [facility] PF Ratio Art [address] [facility] Temp Art 37.1 Celsius [facility] Blood specimen (specimen) Arterial Draw / Unknown 10/24/2019 3:38 PM EDT 10/24/2019 4:50 PM EDT Narrative Resulting Agency Comment Spec In Lab Mata Carrillo MD POINT OF CARE TEST O RDERABLES Performing Organization Address City/[facility]/ZIP Co de Phone Number [facility] [place] [address] * Anaerobic Culture (10/24/2019 3:00 PM EDT) Anaerobic Culture No anaerobic organisms isolated [facility] Pleural fluid specimen (specimen) 10/24/2019 3:00 PM EDT 10/24/2019 3:43 PM EDT Comment:RIGHT PLEURAL FLUID Narrative Resulting Agency Comment Spec In Lab Jose Alvarez MD MICROBIOLOGY - GENER AL ORDERABLES Performing Organization Address [facility] Co de Phone Number [facility] [place] [address] * Body Fluid Culture, Aerobic (10/24/2019 3:00 PM EDT) Body Fluid Culture No growth [facility] Gram Stain Cytocentrifuge Gram Stain performed Neutrophils seen No microorganisms seen. Results called to and read back by DR. ALVAREZ. [facility] Pleural fluid specimen (specimen) 10/24/2019 3:00 PM EDT 10/24/2019 3:43 PM EDT Comment:RIGHT PLEURAL FLUID Narrative Resulting Agency Comment Spec In Lab Jose Alvarez MD MICROBIOLOGY - GENER AL ORDERABLES Performing Organization Address [facility] Co de Phone Number [facility] [place] [address] * Anaerobic Culture (10/24/2019 3:00 PM EDT) Anaerobic Culture No anaerobic organisms isolated [facility] Specimen from lung (specimen) 10/24/2019 3:00 PM EDT 10/24/2019 3:41 PM EDT Comment:PLEURAL GRUMOUS Narrative Resulting Agency Comment Spec In Lab Jose Alvarez MD MICROBIOLOGY - GENER AL ORDERABLES Performing Organization Address [facility] Co de Phone Number [facility] [place] [address] * Tissue culture (10/24/2019 3:00 PM EDT) Tissue Culture No growth [facility] Gram Stain Moderate Neutrophils seen No microorganisms seen. Results called to and read back by DR. ALVAREZ. [facility] Specimen from lung (specimen) 10/24/2019 3:00 PM EDT 10/24/2019 3:41 PM EDT Comment:PLEURAL GRUMOUS Narrative Resulting Agency Comment Spec In Lab Jose Alvarez MD MICROBIOLOGY - GENER AL ORDERABLES Performing Organization Address [facility] Co de Phone Number [facility] [place] [address] * Fungus culture Other (10/24/2019 3:00 PM EDT) Fungus Culture No Fungus isolated [facility] Specimen of unknown material (specimen) 10/24/2019 3:00 PM EDT 10/24/2019 3:44 PM EDT Comment:PLEURAL GRUMOUS Narrative Resulting Agency Comment Spec In Lab Jose Alvarez MD MICROBIOLOGY - GENER AL ORDERABLES Performing Organization Address City/[facility] Co de Phone Number [facility] [place] [address] * AFB culture Lung (10/24/2019 3:00 PM EDT) Acid Fast Bacilli Culture No Acid Fast Bacilli isolated If active tuberculosis is suspected, the patient should be on [employer] PRECAUTIONS. Call Infection Prevention for assistance if needed. [facility] Acid Fast Stain No Acid Fast Bacilli seen [facility] Specimen from lung (specimen) 10/24/2019 3:00 PM EDT 10/24/2019 3:44 PM EDT Comment:PLEURAL GRUMOUS Narrative Resulting Agency Comment Spec In Lab Jose Alvarez MD MICROBIOLOGY - GENER AL ORDERABLES [facility] [place] [address] * Non-Railroad Wheels And Axles Inspector Final Report (10/24/2019 2:58 PM EDT) Diagnosis Discussion [id number] ? Location: [facility]; 0302; A The signing pathologist has (i) examined the relevant preparation(s) for the specimen(s) and (ii) rendered or confirmed the diagnosis(es). . ? Non-Railroad Wheels And Axles Inspector Final DIAGNOSIS Negative for Malignancy Electronically signed by: ??Harsh JORDAN PhD, Juancarlos Schmitz Verified: ??10/27/2019 ?Pathologist Performed at: ??-[facility] Dept. of Pathology, [place], [place] DISCUSSION Pleural, right (thoracentesis): The specimen [...] Cell Block 1. 10/27/2019 3:11 PM EDT [facility] RIGHT PLEURAL FLUID / Unknown 10/24/2019 2:58 PM EDT 10/24/2019 2:58 PM EDT Jose Alvarez MD PATHOLOGY/CYTOLOGY O BENJI Performing Organization Address [facility] [facility] de Phone Number [facility] [place] [phone] * Cytopathology Non-Gynecological (10/24/2019 2:58 PM EDT) AP Specimen 10/24/2019 2:58 PM EDT 10/24/2019 2:58 PM EDT Narrative [facility] - 10/24/2019 2:58 PM EDT Specimen requisition ordered. ??Separate Pathology report to follow Jose Alvarez MD PATHOLOGY/CYTOLOGY O BENJI Performing Organization Address [facility] de Phone Number [facility] [place] [address] documented in this encounter Visit Diagnoses Diagnosis [...] Campbell RN)[phone] (Given - Provider: Lillian Sinha, VEER) 0622 (Given - Provider: Lillian Sinha, EVER)1400 [...] 1921 (New Bag - Provider: Sera Silva, EVER) [...] documented as of this encounter Care Teams Genetic Supervisor Relationship Specialty Start Date End Date Christiana Moore APRN [address] [place] [address] PCP - General Family Medicine 09/26/19 documented as of this encounter
--- OUTSIDE RECORDS SUMMARY | 2024-01-25 00:34 | XMS_ITS | Encounter Summary ---
Author Organization [facility] Address [address] [place] [address] Care Team Providers Care Campground Manager Name Role Phone Unknown, Provider Primary Care Provider [phone] Reason for Referral * Radiology Services (Routine) - Closed Specialty Diagnoses / Procedures Referred By Ankit hong Referred To Contact Diagnoses Primary osteoarthritis involving multiple joints Procedures XR HAND RIGHT 3 OR MORE VIEWS Guillermo Zhou Chi, MD [address] [place] [phone] Referral ID Status Reason Start Date Expiration Date Visits Re quested Visits Authorized [id number] Closed 10/25/2020 1 1 Reason for Visit * Radiology Services (Routine) - Closed Specialty Diagnoses / Procedures Referred By Ankit hong Referred To Contact Diagnoses Primary osteoarthritis involving multiple joints Procedures XR HAND RIGHT 3 OR MORE VIEWS Guillermo Zhou Chi, MD [address] [place] [phone] Referral ID Status Reason Start Date Expiration Date Visits Re quested Visits Authorized [id number] Closed 10/25/2020 1 1 Encounter Details Date Type Department Care Team (Latest Contact Info) Description 10/25/2020 11:39 EDT - 10/25/2020 23:59 EDT Hospital [facility] Radiology Xray Outpatient - [address] [address] Primary osteoarthritis involving multiple joints Discharge Disposition: [...] joints documented in this encounter Care Teams Campground Manager Relationship Specialty Start Date End Date Unknown, Provider, PCP - General 10/22/20 documented as of this encounter
--- OUTSIDE RECORDS SUMMARY | 2024-01-25 00:34 | XMS_ITS | Encounter Summary ---
Author Organization [facility]ly [facility] [place] [address] Care Team Providers Care Laboratory Geneticist Name Role Phone Christiana Moore [employer] Primary Care Provider [phone] Reason for Visit * Reason Onset Date Comments Results 10/22/2019 Negative Covid Encounter Details Date Type Department Care Team (Late st Contact Info) Description 10/22/2019 [place] [address] Jacquelyn Hicks RN Results (Negative [...] PM EDT Office [place] [address] Manjula Kitchen MD [facility] [place] [address] documented as of this encounter Visit Diagnoses Not on filedocumented in this encounter Care Teams Laboratory Geneticist Relationship Specialty Start Date End Date Christiana Moore APRN [address] [place] [address] PCP - General Family Medicine 09/26/19 documented as of this encounter
--- OUTSIDE RECORDS SUMMARY | 2024-01-25 00:34 | XMS_ITS | Encounter Summary ---
[place] [address] Care Team Providers Care Reinforcing Steel Erector Name Role Phone OscarChristiana RYAN Primary Care Provider [phone] Reason for Visit * Reason Onset Date Comments Other 10/08/2019 results Encounter Details Date Type Department Care Team (Late st Contact Info) Description 10/08/2019 Telephone [place] [phone] Monica Price RN Other (results) Social History [...] PM EDT Office [place] [address] Manjula Kitchen MD [facility] [place] [address] documented as of this encounter Visit Diagnoses Not on filedocumented in this encounter Care Teams Reinforcing Steel Erector Relationship Specialty Start Date End Date Christiana Moore APRN [address] [place] [address] PCP - General Family Medicine 09/26/19 documented as of this encounter
--- OUTSIDE RECORDS SUMMARY | 2024-01-25 00:34 | XMS_ITS | Encounter Summary ---
Author Organization [facility] Address [address] [place] [address] Care Team Providers Care Streetcar Dispatcher Name Role Phone Unknown, Provider Primary Care Provider [phone] Encounter Details Date Type Department Care Team [...] on filedocumented in this encounter Care Teams Streetcar Dispatcher Relationship Specialty Start Date End Date Unknown, Provider, PCP - General 10/22/20 documented as of this encounter
--- OUTSIDE RECORDS SUMMARY | 2024-01-25 00:35 | XMS_ITS | Encounter Summary ---
Author Organization [facility] Address [address] [place] [address] Care Team Providers Care Respiratory Care Practitioner Name Role Phone Unknown, Provider Primary Care Provider Reason for Referral * Radiology Services (Routine) - Closed Specialty Diagnoses / Procedures Referred By Contac t Referred To Contact Diagnoses Primary osteoarthritis involving multiple joints Procedures XR HAND LEFT 3 OR MORE VIEWS Guillermo Zhou Chi, MD [address] [place] [phone] Referral ID Status Reason Start Date Expiration Date Visits Re quested Visits Authorized [id number] Closed 10/25/2020 1 1 * Radiology Services (Routine) - Closed Specialty Diagnoses / Procedures Referred By Contac t Referred To Contact Diagnoses Primary osteoarthritis involving multiple joints Procedures XR HAND RIGHT 3 OR MORE VIEWS Guillermo Zhou Chi, MD [address] [place] [phone] Referral ID Status Reason Start Date Expiration Date Visits Re quested Visits Authorized [id number] Closed 10/25/2020 1 1 Reason for Visit * Reason Comments New Patient Visit Joint Pain moves around - wrist , hands, elbows, knees, ankles * Referral (Routine) - Receiving Office to Obtain Authorization Specialty Diagnoses / Procedures Referred By Contac t Referred To Contact Rheumatology Diagnoses Arthralgia Christiana Moore, ZEYAD [address] [facility] [address] [place] [address] [place] [address] [address] [place] [address] Referral ID Status Reason Start Date Expiration Date Visits Requested Visits Authorized [id number] Receiving Office to Obtain Authorization 1 1 Encounter Details Date Type Department Care Team (Latest Contact Info) Description 10/25/2020 10:15 EDT Office Visit [facility] Rheumatology & Immunology - [address] [place] [address] [place] [address] Gato Norris MD [address] [place] [phone] Primary osteoarthritis involving multiple joints (Primary [...] the correct diagnosis without unnecessary testing. A chief optometry service can diagnose OA and prescribe a treatment [...] assistive devices for your OA. ?? 2019 [employer] documented in this encounter Progress Notes * Gato Norris MD - 10/25/2020 1015 EDT [facility] Rheumatology and Clinical Immunology Initial Patient Visit [...] thymoma s/p recent resection. Patient presented to [facility] rheumatology clinic for a new patient assessment [...] disease Social History: - Occupation: Retired, previously [employer] - . - No significant psychosocial stressors. [...] 3.6, Cl 101, Co2 27, BUN 17, Opener Tender 1.27, Gluc 106 (03/2020) Imaging: - Previous CT reports (CT chest w/ contrast 10/27 + 11/26) does not show any significant osseous changes or significant findings per radiology report. Assessment & Plan: Tree Lantigua is an 65-year-old Male with a Pmhx significant for thymoma s/p recent resection. Patient presented to [facility] rheumatology clinic for a new patient assessment [...] the correct diagnosis without unnecessary testing. A chief optometry service can diagnose OA and prescribe a treatment [...] assistive devices for your OA. ?? 2019 [employer] Tree was seen today [...] Ab Negative Negative 10/25/2020 14:49 EDT [facility] Blood VENOUS BLOOD / Unknown Venipuncture / Unknown 10/25/2020 12:56 EDT 10/25/2020 13:19 EDT Guillermo Zhou MD IMMUNOLOGY AND SEROL OGY ORDERABLES Performing Organization Address [facility] Co de Phone Number [facility] [address] [place] [phone] * CCP ANTIBODIES (10/25/2020 12:56 EDT) CCP Antibodies <2.5 <5.0 U/mL 10/25/2020 14:45 EDT [facility] Blood VENOUS BLOOD / Unknown Venipuncture / Unknown 10/25/2020 12:56 EDT 10/25/2020 13:19 EDT Guillermo Zhou MD IMMUNOLOGY AND SEROL OGY ORDERABLES Performing Organization Address [facility] Co de Phone Number [facility] [address] [place] [address] * XR HAND RIGHT 3 OR MORE [...] 11/14/2019 added in this encounter Care Teams Respiratory Care Practitioner Relationship Specialty Start Date End Date Unknown, Provider, PCP - General 10/22/20 documented as of this encounter
--- OUTSIDE RECORDS SUMMARY | 2024-01-25 00:35 | XMS_ITS | Encounter Summary ---
Author Organization [facility] Address [address] [place] [address] Care Team Providers Care Bag Press Operator Name Role Phone Unknown, Provider Primary Care Provider [phone] Encounter Details Date Type Department Care Team (Late st Contact Info) Description 09/25/2019 Lab Requisition [facility] Pathology & Laboratory Medicine - [facility] [address] [place] [address] Outr Resulting Lab, Provider Social History Tobacco [...] 0.0 - 4.5 ng/mL 09/26/2019 10:40 EDT [facility] Blood VENOUS BLOOD / Unknown 09/24/2019 14:40 EDT 09/25/2019 15:54 EDT Narrative [facility] - 09/26/2019 10:40 EDT NOTE: Serum PSA concentration should not be interpreted as absolute evidence for the presence or absence of malignant disease. Assayed on [employer] XPT using chemiluminescent technology.??Values obtained by using different assay methods cannot be used interchangeably. Provider Outr Resulting Lab CHEMISTRY & BLOOD GAS ORDERABLES [facility] [address] [place] [address] documented in this encounter Visit Diagnoses Not on filedocumented in this encounter Care Teams Bag Press Operator Relationship Specialty Start Date End Date Unknown, Provider, PCP - General 10/22/20 documented as of this encounter
--- OUTSIDE RECORDS SUMMARY | 2024-01-25 00:35 | XMS_ITS | Encounter Summary ---
Author Organization [facility] Address [address] [place] [address] Care Team Providers Care Quality Control Analyst Name Role Phone Unknown, Provider Primary Care Provider [phone] Encounter Details Date Type Department Care Team (Late st Contact Info) Description 09/25/2019 Lab Requisition [facility] Pathology & Laboratory Medicine - [facility] [address] [place] [address] Outr Resulting Lab, Provider Social History Tobacco [...] C Antibody Negative Negative 09/26/2019 11:28 EDT [facility] Blood VENOUS BLOOD / Unknown 09/24/2019 14:40 EDT 09/25/2019 15:54 EDT Provider Outr Resulting Lab CHEMISTRY & BLOOD GAS ORDERABLES [facility] [address] [place] [address] documented in this encounter Visit Diagnoses Not on filedocumented in this encounter Care Teams Quality Control Analyst Relationship Specialty Start Date End Date Unknown, Provider, PCP - General 10/22/20 documented as of this encounter
== END 2024-01-25 00:49 ==
LOC: DI 00:29
PROVIDERS: PCP Nurse Practitioner Family; Visit Provider Nurse Practitioner Family
DX: R91.8 Other nonspecific abnormal finding of lung field (principal)
CPT/HCPCS: 71250

== ENCOUNTER 2024-02-20 00:57 | Outpatient (CLI) | payer MEDICARE, SELFPAY ==
--- NOTE | 2024-02-20 | DI.CT_ITS ---
Exam(s) CT ABDOMEN PELVIS WO EXAM: CT ABDOMEN PELVIS WO CLINICAL HISTORY: EVAL INCISIONAL HERNIA ANATOMY, W/O OBSTRUCTION/GANGRENE. TECHNIQUE: Imaging Protocol: Axial computed tomography images with coronal and sagittal reformatted images were created and reviewed. Oral: yes / COMPARISON: CT CT CHEST WO from 01/25/2024 FINDINGS: Lung Bases: No acute findings. Liver: Normal density. No suspicious mass. Gallbladder and biliary tract: No radiodense calculus or biliary dilation. Pancreas: Normal density. No abnormal calcifications or inflammatory process. Spleen: Normal. Kidneys: Normal size, contour and axis. No radiodense stones. No obstructive uropathy. Bilateral re nal cysts. No follow-up recommended. No suspicious masses seen. Adrenal glands: No masses seen. Lymph nodes: Within normal limits. Vasculature: Abdominal aorta non-dilated. Soft tissues: Small fatty containing inguinal hernias. Dehiscence of the anterior abdominal wall mus culature over large extent common from the level of the liver through below the umbilicus. Bladder: Mild diffuse wall thickening. No mass or calculi. Bowel: Administered oral contrast is noted in distal small bowel and colon. Increased quantity of st ool. No obstruction or bowel wall thickening. Peritoneal cavity: No ascites. No focal collection. No mesenteric inflammatory response. Reproductive organs: Prostate mildly enlarged. Bones: Unremarkable for age. IMPRESSION: Dehiscence of the anterior abdominal wall musculature. Small fatty containing inguinal hernias. Mildly enlarged prostate. Mild thickening of the wall of the urinary bladder. RADIATION DOSE DELIVERED: 485.06mGy.cm Total DLP DATA REPOSITORY: All CT scans at this facility are submitted to the National Radiology Data Registry (NRDR) Dose Index Registry (DIR) with the [employer] (A[employer]). RADIATION OPTIMIZATION: All CT scans at this facility use at least one of these dose optimization te chniques: automated exposure control; mA and/or kV adjustment per patient size (includes targeted exa ms where dose is matched to clinical indication); or iterative reconstruction.
[2024-02-20] MEDS: Barium Sulfate 2% W/V-Creamy Vanilla Smoothie 450 ML BTL PO (07:07)
[2024-02-20] MEDS: Barium Sulfate 2% W/V-Berry Smoothie 450 ML BTL PO (07:07)
== END 2024-02-20 01:17 ==
LOC: DI 00:57
PROVIDERS: PCP Nurse Practitioner Family; Visit Provider Surgery
DX: T81.321A Disruption or dehiscence of closure of internal operation (surgical) wound of abdominal wall muscle or fascia, initial encounter (principal); N40.3 Nodular prostate with lower urinary tract symptoms
CPT/HCPCS: 74176

== ENCOUNTER → 2025-01-15 13:21 | Outpatient (BNVA) | payer MEDICARE, SELFPAY | PROVIDERS: PCP Nurse Practitioner Family; Referring Provider Nurse Practitioner Family; Visit Provider Surgery | DX: Z12.11 Encounter for screening for malignant neoplasm of colon (principal); Z86.0109 Personal history of other colon polyps | CPT/HCPCS: S0285 ==

== ENCOUNTER 2025-01-23 15:54 | Outpatient (REF) | payer MEDICARE, SELFPAY ==
[2025-01-23 21:04] LABS: HCT 42.5 % (40.0-50.0); HGB 13.2 g/dL (13.5-17.5); MCH 21.0 pg (27.0-33.0); MCHC 31.1 % (32.0-36.0); Platelet Count 261 10^3/uL (130-400); RBC 6.29 10^6/uL (4.36-5.78); RDW 17.4 % (11.8-14.1); RDW-SD 36.6 fL; WBC 8.86 10^3/uL (4.4-10.8)
[2025-01-23 21:14] LABS: Iron 53 ug/dL (65-175); Total Iron Binding Capacity 281 ug/dL (250-450); Transferrin Sat 19 % (20-55)
[2025-01-23 21:21] LABS: MCV 68 fL (80-95); MPV 10.6 fL (8.0-11.0)
[2025-01-23 21:34] LABS: ALT 21 U/L (16-63); AST 14 U/L (15-37); Albumin 3.4 g/dL (3.4-5.0); Alkaline Phosphatase 86 U/L (46-116); Anion Gap 8.4 mmol/L (3-11); BUN 19 mg/dL (7-18); Bilirubin, Total 0.2 mg/dL (0.2-1.0); CO2 29.6 mmol/L (21.0-32.0); Calcium 9.0 mg/dL (8.5-10.1); Calculated LDL 78 mg/dL (<100); Chloride 100 mmol/L (98-107); Cholesterol 141 mg/dL (<200); Estimated GFR 91.88 (mL/min/1.73m2); Ferritin 43 ng/mL (26-388); Glucose 99 mg/dL (74-106); HDL Cholesterol 39 mg/dL (>or=40); Potassium 3.8 mmol/L (3.5-5.1); Sodium 138 mmol/L (136-145); Total Protein 7.8 g/dL (6.4-8.2); Triglyceride 124 mg/dL (<150)
[2025-01-26 10:38] LABS: PSA, Screening 3.5 ng/mL (<=6.5)
== END 2025-01-23 15:55 | disposition home or self-care (01) ==
LOC: NCHCN 15:54
PROVIDERS: PCP Nurse Practitioner Family; Visit Provider Nurse Practitioner Family
DX: Z00.00 Encounter for general adult medical examination without abnormal findings (principal); R71.8 Other abnormality of red blood cells; Z12.5 Encounter for screening for malignant neoplasm of prostate
CPT/HCPCS: 80053; 80061; 84153; 85027; 82728; 83540; 83550

== ENCOUNTER 2025-02-13 06:12 | Day surgery (SDC) | payer MEDICARE, SELFPAY ==
--- NOTE | 2025-02-12 18:29 | W.PM.DSUDISC ---
Date of service: 02/13/25 Discharge Plan Disposition Patient Disposition: Home Condition: Good Discharge Details Reason For Visit: screening colonoscopy Attending Provider: Dylan Kincaid Primary Care Provider: Christiana Moore Home Meds and New Rx's Prescriptions: Continued epinephrine [EpiPen 2-Julio Cesar] 0.3 mg/0.3 mL auto-injector 0.3 mg IM ONCE Rx Instructions: as a single dose psyllium husk [Daily Fiber] 0.4 gram capsule 0.4 g PO DAILY ibuprofen 600 mg tablet 600 mg PO Q8H PRN Discontinued bisacodyl [Dulcolax (bisacodyl)] 5 mg tablet,delayed release (DR/EC) 5 mg PO ONCE Qty: 4 0RF Rx Instructions: take per colonoscopy instructions polyethylene glycol 3350 17 gram/dose powder 238 g PO ONCE Qty: 238 0RF Rx Instructions: take per colonoscopy instructions Discharge Instructions Instructions: Colon polyps Additional Instructions: Tree, was good to see you today, and I hope you feel well after the procedure. Things went very smoothly. I did find, and removed 2 polyps today. Both of these are quite small, and certainly nothing to worry about. I will send these to the pathologist for their review. Once I know the nature of the polyps, I will be in touch with recommendations for your next colonoscopy. Incidentally, 1 of these polyps is a little bit low in the rectum, so I do expect to have a few bloody bowel movements over the next 2 to 3 days. That is extremely common. So long as you are feeling okay, it has nothing to worry about. If you need anything at all or have any questions, please do not hesitate to ask, otherwise we will be in touch in about a week or so once the polyp results are available. 1. If tolerated, consume a soft, low fiber diet for 1-2 days. [address] Do not drive, drink alcohol, operate machinery, make critical decisions, or do activities that require coordination or balance for 24 hours. 3. Because air was put into your colon during the procedure, expelling air from your rectum (passing gas or farting) is normal. 4. You may not have a bowel movement for 1-3 days because of the colonoscopy prep. This is normal. 5. Go directly to the emergency room if you notice any of the following: Develop chills (warm to touch), or if you have a thermometer and your temperature is above 101 Difficulty breathing or difficultly swallowing Persistent vomiting Severe abdominal pain, other than gas cramps Severe chest pain Black, tarry stools Any bleeding – exceeding one tablespoon 6. Call your physician if the site where your intravenous was started becomes red, swollen, painful, and warm to touch. 7. Your physician has reviewed your pre-procedure medications. Please continue to take those medications as previously ordered. You will be given specific information/education regarding any changes to your medications before leaving. Stand Alone Forms: Anesthesia Discharge Inst., Reena Marrero (DSU), Portal Information Activity:: Activity as Tolerated Diet:: As Tolerated Discharge Orders Discharge Orders: Discharge Order (Routine); Ordered 02/12/25 Ordered By: Dylan Kincaid DS: Diagnosis Discharge Diagnosis (1) Screening for colon cancer: Status: Acute Asessment and Plan: Follow-up on polypectomy results
--- NOTE | 2025-02-12 18:30 | W.COLOREPORT ---
Date of service: 02/13/25 Time of Service: 07:48 Colonoscopy Report Date of procedure: 02/13/25 Pre-op diagnosis general: screening colonoscopy Post-op diagnosis procedure note: other (Colon polyps, diverticulosis) Procedure: colonoscopy with polypectomy Surgeon: Dylan Kincaid Anesthesia Type: General:No Airway Estimated blood loss (mL): 10 Pathology: other (0.25 cm rectal polyp, 0.25 cm polyp at 35 cm) Complications: None Disposition: same day Indications: Tree is a 69 year old man with a history of tubulovillous adenoma who needs his next screening colonoscopy Prep: Miralax/Dulcolax Procedure Start Time: 07:28 Procedure End Time: 07:42 Retraction Time: 7 Findings: Colorectal anastomosis at 18 cm beyond the anal verge, some scattered diverticula on the left side, 0.25 cm rectal polyp, 0.25 cm flat polyp at 35 cm Procedure Description: After the induction of anesthesia, and with the patient in left lateral decubitus position, I began by performing an external anorectal exam. Perineum and skin were normal, as was the anal verge. Next, I performed a digital rectal exam. This felt normal. Next, I advanced a colonoscope into the rectal vault. I performed retroflexion. There are internal hemorrhoids. In the lower portion of the rectal vault is a 0.25 cm flat polyp. This was removed with cold forceps with minimal bleeding. Using irrigation, I then advanced the colonoscope beyond the rectal folds. There is healthy appearing anastomosis around 18 cm past the anal verge. There are a few diverticula scattered both proximal and distal to this. I continued advancing towards the right side. The scope was noted to be in the cecum by identification of the ileocecal valve and appendiceal orifice. I then began withdrawing the colonoscope using repeated irrigation as necessary for full evaluation of the colonic mucosa. Around 35 cm from the anal verge I identified a 0.25 cm polyp. It appeared flat in character. I was able to remove this with a cold forceps polypectomy. I examined the site, and there was minimal bleeding. Once this was completed, I continued to withdraw the scope and examine the remainder of the colonic mucosa. Once the scope was withdrawn to the level of the rectum, great care was taken to examine portions of the rectal folds. Finally, the scope was withdrawn and the patient was brought to the same-day surgery recovery unit as the anesthetic wore off. The findings and instructions were shared with the patient prior to discharge. Cleveland Bowel Prep Cleveland Bowel Prep Right Colon: 3 Left Colon: 3 Transverse Colon: 3 Total Score: 9
[2025-02-13 06:30] VITALS: BP 126/98; PULSE 97; RESP 16; TEMP 36.6; O2SAT 99
[2025-02-13] MEDS: Lactated Ringers 1,000 ML 80 ML IV (06:51)
--- NOTE | 2025-02-13 07:05 | ANES.PREOP_ITS ---
General Info Date of Service Date Performed: 02/13/25 Height: 5 ft 11 in Weight: 71.8 kg Body Mass Index (BMI): 22.1 Surgical Procedure: Operation Date: 02/13/25 07:35 Proposed Procedure Side Surgeon p Lyndsey Kincaid MD Meds Allergies and Home Medications Allergies Allergy/AdvReac Type Severity Reaction Status Date / Time bee venom protein (honey bee) Allergy Anaphylaxsi Verified 02/13/25 06:36 s Home Medication Medication Instructions Recorded epinephrine 0.3 mg/0.3 mL 0.3 mg IM ONCE 08/24/20 injection, auto-injector (EpiPen 2-Julio Cesar) ibuprofen 600 mg tablet 600 mg PO Q8H PRN 09/16/24 psyllium husk 0.4 gram capsule 0.4 g PO DAILY 09/16/24 (Daily Fiber) Current Visit Medications: Current Medications Generic Name Dose Route Start Last Admin Trade Name Freq PRN Reason Stop Dose Admin Ringer's Solution 1,000 mls @ 80 mls/hr 02/13/25 06:00 02/13/25 06:51 IV 02/13/25 23:59 80 mls/hr INFUSION MIGUEL Administration IV Miscellaneous Supplies 1 each 02/13/25 06:00 Iv Access IV 02/13/25 23:59 DIRECTED MIGUEL Sodium Chloride 0 ml 02/13/25 06:00 Normal Saline Flush 10 Ml Syr IV 02/13/25 23:59 PRN PRN Sodium Chloride 0 ml 02/13/25 06:00 Normal Saline 10 Ml Vial IJ 02/13/25 23:59 DIRECTED PRN Sterile Water 0 ml 02/13/25 06:00 Water,Injection,Sterile 10 Ml Vial IJ 02/13/25 23:59 DIRECTED PRN PFSH Active Problems Active Problems: Problem Status Onset Code Skin lesion of face Acute L98.9 Tubulovillous adenoma of colon Acute ~01/2021 D12.6 Tubular adenoma of colon Acute ~01/2021 D12.6 Fatigue Acute R53.83 Arthralgia Acute M25.50 Screening for colon cancer Acute Z12.11 Medical History Medical History Hx of diverticulitis of colon Diastasis recti Folliculitis Multiple lung nodules Hx of staphylococcal infection Thoracotomy scar of right chest Benign thymoma Surgical History Surgical History History of right hip replacement Hx of hernia repair Hx of colectomy History of colonoscopy (~01/2021) History of tonsillectomy History of thoracotomy Tobacco Smoking/Tobacco Use Status: Never Passive smoking exposure: No Alcohol Alcohol Intake: former Substance Use Substance use: Occasionally Substance use type: former substance user and marijuana Vital Signs and Lab Results Vital Signs Most Recent Vital Signs in EMR: Most Recent Vital Signs Temp Pulse Resp BP Pulse Ox 36.6 C 97 H 16 126/98 H 99 02/13/25 06:30 02/13/25 06:30 02/13/25 06:30 02/13/25 06:30 02/13/25 06:30 Lab Results Complete Blood Count: WBC, (4.4-10.8) 8.86 10^3/uL 01/23/25, 15:38 RBC, (4.36-5.78) 6.29 10^6/uL H 01/23/25, 15:38 Hgb, (13.5-17.5) 13.2 g/dL L 01/23/25, 15:38 Hct, (40.0-50.0) 42.5 % 01/23/25, 15:38 Plt Count, (130-400) 261 10^3/uL 01/23/25, 15:38 Complete Metabolic Panel: Sodium, (136-145) 138 mmol/L 01/23/25, 15:38 Potassium, (3.5-5.1) 3.8 mmol/L 01/23/25, 15:38 Chloride, (98-107) 100 mmol/L 01/23/25, 15:38 Carbon Dioxide, (21.0-32.0) 29.6 mmol/L 01/23/25, 15 :38 BUN, (7-18) 19 mg/dL H 01/23/25, 15:38 Creatinine, (0.70-1.30) 0.9 mg/dL 01/23/25, 15:38 Est GFR (CKD-EPI 2020), (mL/min/1.73m2) 91.88 01/23/25, 15:38 Calcium, (8.5-10.1) 9.0 mg/dL 01/23/25, 15:38 Albumin, (3.4-5.0) 3.4 g/dL 01/23/25, 15:38 Glucose, (74-106) 99 mg/dL 01/23/25, 15:38 Liver Function Panel: ALT, (16-63) 21 U/L 01/23/25, 15:38 AST, (15-37) 14 U/L L 01/23/25, 15:38 Anesthesia Assessment and Plan Anesthesia History Personal History: No History of Anesthesia Complications Family History: No Family History of Anesthesia Complications Exercise Tolerance Exercise Tolerance: Metabolic Equivalents>4 Pertinent Negatives Pertinent Negatives: No Symptoms of GERD, No Major Cardiovascular Symptoms or Complaints and No Major Pulmonary Symptoms or Complaints Cardiac & Pulmonary Exam Cardiac Exam: Normal S1/S2 Heart Sounds Pulmonary Exam: Clear Bilateral Breath Sounds Implantable Cardiac Device Does patient have a Pacemaker or an ICD?: No Airway Exam Known Difficult Airway: No Mallampati Class: 2 Mouth Opening: Normal (> 3cm) Thyromental Distance: Greater than 3 cm Neck Range of Motion: Full ROM Neck Circumference: Normal Teeth Condition: Normal Dentition ASA Classification ASA Score: ASA 2 Emergency Case?: No NPO Status NPO Status: NPO Clears >2 hours, Solids >8 hours Anesthesia Plan Resuscitation Status: Full Code Anesthesia Technique: General Anesthesia Airway Planned: Natural Airway Monitors Used: Standard Monitors Preoperative Comments:: 69 yo male for colo. Sig PMHx: s/p right VATS/thoracotomy with resection of mediastinal mass and wedge x 5, Previous Anes: grade 4 mac 4, grade 2 with video
[2025-02-13 07:06] VITALS: BMI 22.1
--- NOTE | 2025-02-13 07:30 | BOWEL_PTH ---
PATIENT: Tree Lantigua LOC: [facility] U#:[id number] AGE/SX: 69/M ROOM: RE02/13/[address]: Dylan Kincaid MD : [id number] BED: DIS: 02/13/2025 SPEC #: [id number] RECD: 02/13/25 12:26 STATUS: FIORELLA RE #: [id number] RA: 02/13/25 07:[address]: Dylan Kincaid DEPT: Surgical Specimen RECD BY: Marylin Mohan ENTERED: 02/13/25 12:27 SP TYPE: Bowel OTHR DR: Christiana Moore Tissues: 1 - BIOPSY BOWEL 2 - BIOPSY BOWEL Procedures: GROSS AND MICRO LEVEL 4 Comments: [id number]
[2025-02-13 07:45] VITALS: BP 107/71; PULSE 97; RESP 16; TEMP 36.6; O2SAT 97
--- NOTE | 2025-02-13 08:01 | W.ANESPOSTOP ---
Postoperative Evaluation Date, Time and Location Date Performed: 02/13/25 Time Performed: 08:01 Patient Location: Day Surgery Unit Vital Signs Most Recent Imported Vital Signs: Most Recent Vital Signs Temp Pulse Resp BP Pulse Ox 36.6 C 97 H 16 107/71 97 02/13/25 07:45 02/13/25 07:45 02/13/25 07:45 02/13/25 07:45 02/13/25 07:45 Pain Score Most Recent Pain Score: Most Recent Pain Score Pain Level 0 02/13/25 07:45 Assessment Mental Status: Awake (Alert & Oriented to Patient Baseline) Airway and Respiratory Function: Patent airway with normal (patient baseline) respiratory exam Cardiovascular Function: Hemodynamically Stable Hydration Status: Adequately Hydrated Nausea & Vomiting: No Nausea or Vomiting Pain: Pt. Denies Any Pain Peripheral Nerve Block: Patient did not receive a nerve block
[2025-02-13 08:12] VITALS: BP 122/81; PULSE 80; RESP 16; TEMP 36.6; O2SAT 96
== END 2025-02-13 08:16 | disposition home or self-care (01) ==
LOC: SUR 06:12
PROVIDERS: PCP Nurse Practitioner Family; Visit Provider Surgery
PROC: 0DJD8ZZ Inspection of Lower Intestinal Tract, Via Natural or Artificial Opening Endoscopic (ICD-10-PCS; CPT 45378; principal; 2025-02-13 07:30)
DX: Z12.11 Encounter for screening for malignant neoplasm of colon (principal); D12.5 Benign neoplasm of sigmoid colon; D12.8 Benign neoplasm of rectum; K57.30 Diverticulosis of large intestine without perforation or abscess without bleeding
CPT/HCPCS: 45380; 88305; J2704